=== PATIENT | female | born 1945 | race Caucasian/White ===

== ENCOUNTER → 2020-02-13 13:42 | Outpatient (BNVA) | payer MEDICARE, SELFPAY | PROVIDERS: PCP Family Medicine; Visit Provider Hospitalist | DX: I26.99 Other pulmonary embolism without acute cor pulmonale (principal); J44.9 Chronic obstructive pulmonary disease, unspecified; J18.9 Pneumonia, unspecified organism; R93.89 Abnormal findings on diagnostic imaging of other specified body structures; Z86.19 Personal history of other infectious and parasitic diseases; Z79.01 Long term (current) use of anticoagulants | CPT/HCPCS: 99212 ==

== ENCOUNTER → 2020-02-28 09:54 | Outpatient (BNVA) | payer MEDICARE, SELFPAY | PROVIDERS: PCP Family Medicine; Referring Provider Family Medicine; Visit Provider Hospitalist | DX: J44.9 Chronic obstructive pulmonary disease, unspecified (principal); J18.9 Pneumonia, unspecified organism; D64.9 Anemia, unspecified; Z86.711 Personal history of pulmonary embolism; Z86.19 Personal history of other infectious and parasitic diseases; Z79.01 Long term (current) use of anticoagulants | CPT/HCPCS: 99212 ==

== ENCOUNTER → 2020-05-27 09:46 | Outpatient (BNVA) | payer MEDICARE, SELFPAY | PROVIDERS: PCP Family Medicine; Visit Provider Hospitalist | DX: I27.82 Chronic pulmonary embolism (principal); J41.0 Simple chronic bronchitis; G47.33 Obstructive sleep apnea (adult) (pediatric) | CPT/HCPCS: 99212 ==

== ENCOUNTER → 2020-10-01 11:12 | Outpatient (BNVA) | payer MEDICARE, SELFPAY | PROVIDERS: PCP Family Medicine; Visit Provider Hospitalist | DX: G47.33 Obstructive sleep apnea (adult) (pediatric) (principal); I27.82 Chronic pulmonary embolism; U07.1 COVID-19; J41.0 Simple chronic bronchitis | CPT/HCPCS: 99212 ==

== ENCOUNTER 2020-11-09 10:12 | Outpatient (REF) | payer MEDICARE, SELFPAY ==
[2020-11-09 11:33] LABS: MANUAL DIFF FLAG NO
[2020-11-09 11:53] LABS: Basophils Percent Auto 0.5 % (0-2); Eosinophils Absolute Auto 0.1 X10*3/uL (0.0-0.4); Eosinophils Percent Auto 1.3 % (0-4); Hematocrit 37.3 % (37-47); Hemoglobin 11.5 g/dl (12.0-16.0); INTERNATIONAL NORM RATIO 1.5 (0.9-1.1); Imm Gran Abs Auto 0.01 X10*3/uL (0.00-0.03); Imm Gran Pct Auto 0.2 % (0.0-0.4); Lymphocytes Absolute Auto 1.7 X10*3/uL (1.2-4.9); Lymphocytes Percent Auto 27.5 % (20-40); Mean Corpuscular HGB Conc 30.8 g/dl (31.0-35.0); Mean Corpuscular Hemoglobin 27.4 pg (27.0-33.0); Mean Platelet Volume 11.6 fL (9.4-12.3); Monocytes Absolute Auto 0.6 X10*3/uL (0.1-1.2); Monocytes Percent Auto 9.2 % (2-11); Neutrophils Absolute Auto 3.9 X10*3/uL (2.0-8.3); Neutrophils Percent Auto 61.3 % (45-73); Platelet Count 197 X10*3/uL (160-400); Prothrombin Time 17.1 SEC (9.9-13.0); Red Blood Count 4.19 X10*6/uL (4.20-5.50); Red Cell Distribution Width 13.7 % (11.0-16.0); White Blood Count 6.3 X10*3/uL (4.8-10.8)
[2020-11-09 12:32] LABS: Alanine Aminotransferase 11 U/L (0-31); Alkaline Phosphatase 87 U/L (39-117); Aspartate Amino Transferase 19 U/L (5-31); Bilirubin Direct 0.2 mg/dL (0.0-0.5); Bilirubin Total 0.4 mg/dL (0.0-1.0); Blood Urea Nitrogen 13 mg/dL (9-16); Estimated Glomerular Filt Rate 54; Total Protein 6.9 g/dL (6.5-8.0)
== END 2020-11-09 10:13 | disposition home or self-care (01) ==
LOC: HO.LAB 10:12
PROVIDERS: PCP Family Medicine; Visit Provider Internal Medicine Gastroenterology
DX: K74.60 Unspecified cirrhosis of liver (principal)
CPT/HCPCS: 36415; 80076; 82565; 84520; 85025; 85610

== ENCOUNTER 2020-12-10 11:07 | Outpatient (REF) | payer MEDICARE, SELFPAY ==
--- NOTE | ~2020-12-10 | CT_ITS ---
EXAMINATION: CT ABDOMEN AND PELVIS WITH CONTRAST CLINICAL INFORMATION: Left lower abdominal swelling and COMPARISON: Previous abdominal ultrasound most recent October 2019 TECHNIQUE: Multidetector volumetric images were obtained from the superior aspect of the liver through the pubic symphysis following administration 85 mL of Omnipaque 350 intravenous contrast. Sagittal and coronal reformatted images were obtained on the technologist's workstation. Oral contrast: Yes This CT examination was performed using dose optimization techniques as appropriate, variously including the following: *Automated exposure control *Adjustment of mA and/or kV according to patient size (this includes techniques or standardized protocols for targeted exams where dose is matched to indication/reason for exam; i.e. extremities or head) *Use of iterative reconstruction technique DLP: 424 mGy-cm FINDINGS: LUNG BASES: The visualized lung bases are unremarkable. LIVER, GALLBLADDER, AND BILIARY TREE: The contour of the liver is slightly irregular and there is hypertrophy of the left lobe and caudate lobe suggestive of mild cirrhosis. Liver is normal in attenuation. No focal liver lesion is seen. The gallbladder is been removed. There is mild extrahepatic biliary duct dilatation. The common bile duct measures 1.4 cm. This is similar to previous ultrasound and may be normal postcholecystectomy. The gallbladder has been removed. PANCREAS: Unremarkable. SPLEEN: Unremarkable. ADRENAL GLANDS: Unremarkable. KIDNEYS AND URETERS: There are bilateral renal stones. There is a 4 x 10 mm stone in the upper pole of the right kidney. There are 2 2 mm stones in the upper and lower pole of the left kidney. BLADDER: Unremarkable. GASTROINTESTINAL TRACT: There is stool throughout the colon questionable for constipation. Small and large bowel is otherwise unremarkable. The appendix is unremarkable. The stomach is unremarkable. ABDOMINAL WALL: There is diastasis of the rectus muscles and small umbilical hernia containing fat. LYMPH NODES: Normal. VASCULAR: There is evidence of atherosclerotic disease. No aneurysm is seen. PELVIC VISCERA: The uterus is been removed. No pelvic mass is seen. OSSEOUS STRUCTURES: There are degenerative changes of the spine and at the hip joints. CT/CT abdomen pelvis w con IMPRESSION: No mass seen. Stool throughout the colon suggestive of constipation. Small umbilical hernia containing fat. Bilateral renal stones. Mild cirrhosis. Mild extrahepatic biliary duct dilatation similar to previous ultrasound probably normal postcholecystectomy.
[2020-12-10] MEDS: iohexoL 350 MG/ML 100 ML INFUS..BTL IV (14:31)
== END 2020-12-10 11:08 | disposition home or self-care (01) ==
LOC: HO.CT 11:07
PROVIDERS: PCP Family Medicine; Visit Provider Internal Medicine Gastroenterology
DX: K21.9 Gastro-esophageal reflux disease without esophagitis (principal); K74.60 Unspecified cirrhosis of liver; R19.02 Left upper quadrant abdominal swelling, mass and lump
CPT/HCPCS: 74177; Q9967

== ENCOUNTER → 2020-12-30 11:08 | Outpatient (BNVA) | payer MEDICARE, SELFPAY | PROVIDERS: PCP Family Medicine; Visit Provider Hospitalist | DX: G47.33 Obstructive sleep apnea (adult) (pediatric) (principal); J41.0 Simple chronic bronchitis; R09.1 Pleurisy; U07.1 COVID-19; I27.82 Chronic pulmonary embolism | CPT/HCPCS: 99212 ==

== ENCOUNTER → 2021-01-28 10:21 | Outpatient (BNVA) | payer MEDICARE, SELFPAY | PROVIDERS: PCP Family Medicine; Visit Provider Hospitalist | DX: G47.33 Obstructive sleep apnea (adult) (pediatric) (principal); J41.0 Simple chronic bronchitis; I27.82 Chronic pulmonary embolism; U07.1 COVID-19 | CPT/HCPCS: 99212 ==

== ENCOUNTER → 2021-02-17 10:50 | Outpatient (BNVA) | payer MEDICARE, SELFPAY | PROVIDERS: PCP Family Medicine; Visit Provider Hospitalist | DX: J18.9 Pneumonia, unspecified organism (principal); U09.9 Post COVID-19 condition, unspecified; J41.0 Simple chronic bronchitis; R07.1 Chest pain on breathing; I26.99 Other pulmonary embolism without acute cor pulmonale; G47.33 Obstructive sleep apnea (adult) (pediatric); Z88.6 Allergy status to analgesic agent; Z88.4 Allergy status to anesthetic agent; Z88.1 Allergy status to other antibiotic agents; Z88.0 Allergy status to penicillin; Z83.2 Family history of diseases of the blood and blood-forming organs and certain disorders involving the immune mechanism; Z99.81 Dependence on supplemental oxygen; Z79.899 Other long term (current) drug therapy | CPT/HCPCS: 99212 ==

== ENCOUNTER → 2021-06-24 10:49 | Outpatient (BNVA) | payer MEDICARE, SELFPAY | PROVIDERS: PCP Family Medicine; Visit Provider Hospitalist | DX: J41.0 Simple chronic bronchitis (principal); G47.33 Obstructive sleep apnea (adult) (pediatric); R07.1 Chest pain on breathing; I27.82 Chronic pulmonary embolism | CPT/HCPCS: 99212 ==

== ENCOUNTER → 2021-12-28 11:05 | Outpatient (BNVA) | payer OTHER, SELFPAY | PROVIDERS: PCP Family Medicine; Visit Provider Hospitalist | DX: I27.82 Chronic pulmonary embolism (principal); G47.33 Obstructive sleep apnea (adult) (pediatric); J41.0 Simple chronic bronchitis; R07.1 Chest pain on breathing | CPT/HCPCS: 99212 ==

== ENCOUNTER 2022-02-10 08:08 | Outpatient (REF) | payer OTHER, SELFPAY ==
--- NOTE | ~2022-02-10 | US_ITS ---
EXAMINATION: US ABDOMEN COMPLETE CLINICAL INFORMATION: Cirrhosis of liver. COMPARISON: CT abdomen and pelvis 12/10/2020. Ultrasound abdomen complete 11/01/2019 and 07/11/2018. TECHNIQUE: Real-time imaging of the abdominal viscera. FINDINGS: PANCREAS: The pancreas unremarkable except for mild prominent pancreatic duct. ABDOMINAL AORTA: The proximal, mid, and distal segments are normal in caliber. INFERIOR VENA CAVA: Visualized portions are normal. LIVER: The liver is normal in size. A lobulated left hepatic lobe contour is noted. There is mild increased liver echogenicity. No focal hepatic lesion. There is no intrahepatic biliary duct dilatation seen. GALLBLADDER: Surgically absent. COMMON BILE DUCT: Normal in caliber measuring 1.4 cm in diameter. RIGHT KIDNEY: There are 2 small clusters of echogenic calculi measuring 0.6 cm. No caliectasis seen. No hydronephrosis or focal parenchymal lesions. The kidney measures 9.4 cm in maximum dimension. LEFT KIDNEY: There are 2 nonobstructive echogenic calculi measuring 0.4 cm midpole and 0.4 cm in lower pole. No hydronephrosis or focal parenchymal lesions. The kidney measures 9.5 cm in maximum dimension. SPLEEN: Normal. The spleen measures 11.5 cm in maximum dimension. FREE FLUID: None. US/US abdomen complete IMPRESSION: 1. Bilateral nonobstructive echogenic renal calculi. No caliectasis or hydronephrosis. 2. Slightly lobulated left hepatic lobe contour. Mild hepatic steatosis. 3. Prominent pancreatic duct but otherwise unremarkable pancreas.
== END 2022-02-10 08:09 | disposition home or self-care (01) ==
LOC: HO.US 08:08
PROVIDERS: Visit Provider Internal Medicine Gastroenterology
DX: K74.60 Unspecified cirrhosis of liver (principal)
CPT/HCPCS: 76700

== ENCOUNTER → 2022-04-12 15:26 | Outpatient (BNVA) | payer OTHER, SELFPAY | PROVIDERS: PCP Family Medicine; Visit Provider Hospitalist | DX: J96.21 Acute and chronic respiratory failure with hypoxia (principal); G47.33 Obstructive sleep apnea (adult) (pediatric); I27.82 Chronic pulmonary embolism; J41.0 Simple chronic bronchitis; I95.9 Hypotension, unspecified | CPT/HCPCS: Q3014 ==

== ENCOUNTER → 2022-05-16 09:38 | Outpatient (BNVA) | payer OTHER, SELFPAY | PROVIDERS: PCP Family Medicine; Visit Provider Hospitalist | DX: I27.82 Chronic pulmonary embolism (principal); J41.0 Simple chronic bronchitis | CPT/HCPCS: 99212 ==

== ENCOUNTER 2023-05-04 14:05 | Outpatient (AMB) | payer OTHER, SELFPAY ==
--- NOTE | 2023-05-04 14:25 | A.OFFVIS_ITS ---
Intake Vital Signs 05/04/23 14:28 Height 5 ft 3 in Weight 155 lb BMI 27.5 Pulse 79 Pulse Source Pulse Oximeter Pulse Oximetry (%) 96 Oxygen Delivery Method Room Air Intake Visit Reasons: COPD Rn Clinical Resource Required: No Allergies lidocaine [From LIDODERM] Allergy (Severe, Verified 05/04/23 14:29) BLISTERS Penicillins [PENICILLINS] Allergy (Severe, Verified 05/04/23 14:29) SWELLING/ITCHING gabapentin [GABAPENTIN] Allergy (Intermediate, Verified 05/04/23 14:29) SORES IN MOUTH- AGITATION morphine [MORPHINE] Allergy (Intermediate, Verified 05/04/23 14:29) PER H&P Ampicillin Allergy (Intermediate, Uncoded 05/04/23 14:29) Rash and Hives HPI HPI Comments History of Present Illness Details The patient is a 77-year-old woman with a known history of pulmonary emboli with the family history. In addition to that she has a history of sleep apnea and asthma COPD overlap syndrome. Since we last spoke the patient has been complaining of multiple complaints. She does have leg swelling and pain. Mainly her left leg. 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 This is done at [facility]. Her D-dimer was elevated at the time. We did review her CT scan of the chest that demonstrated extensive blood clot with submassive PE due to the RV strain. She had been treated in [place] for that and did complete a course of Coumadin. She has no longer on any anticoagulation. She has been complaining worsening shortness of breath and chest pain. This discomfort is substernal in his about 4-10 in severity. Denies any radiation. Some respite phasic component. At this point is better. She did need to have an urgent CTA to rule out pulmonary emboli. The reading was that she did have sub subsegmental pulmonary emboli. I did look at the scan myself and I do think she had bilateral subsegmental pulmonary emboli. That night she was started on Eliquis. She has been tolerating the Eliquis without any side effects. Although she feels a little pale today feels like she could be anemic. We did review her blood work from the last visit demonstrating normal SABINO and normal CCP. Although her D-dimer was elevated does have she ended up with her CT scan of the chest. Her potassium was also elevated at the time. The patient has had multiple blood clots as well and now also positive family history with other extended family members. Therefore, is not a reasonable to at least check her prothrombin mutation and factor 5 Leiden. Her hemoglobin was down to about 9 from 12. She denies any active bleeding GI bleeding or any black stools. I am concerned because she is taking the blood thinner. She is scheduled for an upper and lower endoscopy. 05/27/2020 the patient is here for pulmonary follow-up visit. Overall she is doing lot better. She has recovered very well from the COVID infection that she had. Her last CT scan of the chest from March demonstrated some ground-glass opacities likely residual from her COVID infection. She continues on the Eliquis and seems to be tolerating the anticoagulation well. Denies any evidence of any recurrent clots. The patient was ambulated with a 6 minutes walk test and she maintain a pulse ox between 98%-99%. Heart rate also states stable within 80s to 90s. Her Brant score was lower on 05/20. Patient did very well walking with her cane. However, she has been very dizzy lately and she has had episodes of near falls. She needs to be very careful with her balance and always using her assistive device. The patient has struggled to use his CPAP. The CPAP therapy has been very difficult. Therefore, the patient will talk to her [employer] company about returning it. The patient will continue using oxygen at nighttime at 2 L. 12/28/2021 the patient is here for a pulmonary follow-up visit. Overall the patient seems to be doing relatively well from a respiratory status. She still complains of the substernal chest discomfort. She does respond well to nitroglycerin. She did follow-up with cardiology sometime in early December. Did describe the chest discomfort as a typical. She had a full cardiac workup without any evidence of any at the heart disease. The patient has complaining about bruising. She has been on Eliquis and also on Plavix. She has not no ticed any hematuria or any issues with blood in the stool. A 1 point she did have significant anemia. the patient is concerned about the use of Plavix. I did look at the cardiology notes and was no mention of the use of Plavix. Therefore, I did tell the patient to hold the Plavix until she speaks to her primary care doctor to clarify if he does need to be on this medication. Med because concerns for risk of bleeding since she has had issues with anemia in the past. The patient has been having some reflux symptoms. I did send her additional Maalox in case her chest discomfort is related to esophageal spasms she is responding well to the Trelegy inhaler. She has not had to use his rescue inhaler and she has not required any prednisone. She continues use the oxygen with sleep. This has been affecting beneficial and she will continue for now. 04/12/2022 the patient has a telephone visit today. The daughter had called initially that the patient was feeling short of breath and also dizzy. She noted that her pulse ox was significantly low Around 60%. She also has a blood pressure cuff at home and she noted that her blood pressure was low with a systolic blood pressure in the 80s. However, the patient has been reluctant to go to the hospital. The patient states that the last time she went to the hospital she was waiting in the hallway and she is very uncomfortable. Recently she was diagnosed with UTI and was placed on antibiotics. She was also found to have kidney stones and she had to postpone the procedure due to her new symptoms. Based on the fact the patient hypoxic the daughter had called. We gave her telephone visit today. I did speak to the patient. She feels very drowsy and tired. Explained to the patient that is really important for her to go to the hospital and she is agreeable at this time. I did look at the blood work that she had at [facility]. Initially UTI demonstrated a Staph infection. I am concerned that she could be developing sepsis and therefore developing worsening respiratory failure in view of the sepsis. Therefore, be critical that she is evaluated in the ER. The daughter will take her to the hospital at this time. 05/13/2022 the patient is here for a pulmonary follow-up visit. The patient recently was discharged from the hospital. She was found to have kidney stones. Initially, she was admitted at [facility] and she was found to have kidney stones and hypotension. And she ended up admitted at [facility]. She had a repeat CT scan of the abdomen per report demonstrating resolution of the kidney stone. The patient is having significant discomfort of her right leg. This is causing significant discomfort. She has been taking Tylenol. She has to be careful with her cirrhosis. She continues use the oxygen at nighttime. she uses 2 L at nighttime. This has been affecting beneficial. The patient is to continue the oxygen at this time. 05/04/2023 the patient is here for a pulmonary follow-up visit. The patient overall has been feeling well from a respiratory status. Continues on the Eliquis 5 mg twice a day. The family is contemplating decreasing the medication to 2.5 twice a day. I believe this is reasonable request specially since her last CTA back in April 2022 did not demonstrate any evidence of any persistent clot. She does have some lower extremity discomfort to therefore will do a lower extremity Dopplers to make sure that she does not have any clot burden. And if is negative then we can see about decreasing the dose. In the meantime the patient also has issues with headaches in the morning. She was on oxygen at nighttime which she has no longer using it. Therefore, will go ahead and request an overnight oximetry to see if which is set her up with nocturnal oxygen at this time. She may still have some supplies left over from when she had [facility] respiratory. [facility] Medical History (Updated 05/04/23 @ 20:11 by Michael Berkowitz MD) Leg pain Chest pain Pleuritis JENNIFER (obstructive sleep apnea) Abnormal chest x-ray Pneumonia COVID-19 Pulmonary emboli COPD (chronic obstructive pulmonary disease) Social History (Updated 12/30/20 @ 11:36 by Tamara Terry Michelle) Patient Tobacco Use Status: Never used Tobacco Review of Systems Const Reports headache(s), Reports lethargy and Denies night sweats ENT Denies change in voice, Reports dizziness, Reports headache(s), Denies lip swelling, Denies mouth pain, Reports nasal congestion, Reports nasal discharge, Reports neck pain and Denies tongue swelling Card Denies chest pain, Denies dyspnea and Reports dyspnea on exertion Resp Reports cough, Reports pain on inspiration, Denies dyspnea and Reports dyspnea on exertion GI Reports abdominal pain, Reports constipation and Reports GI cramping Reports as per HPI Musc Reports back pain, Reports limited range of motion, Reports muscle cramps, Reports neck pain and Reports radiating pain into limb Neuro Denies Neuro-related abnormal movements, Reports dizziness and Reports headache(s) Psych Denies no additional complaints Sebastian/Lymph Reports easy bleeding, Reports easy bruising and Denies lymphadenopathy Aller/Immun Denies lip swelling and Denies tongue swelling Physical Exam Vital Signs: Last Vital Signs Pulse 79 05/04/23 14:28 Pulse Ox 96 05/04/23 14:28 Oxygen Delivery Method Room Air 05/04/23 14:28 BMI result Body Mass Index 27.5 Const General: alert Neck Neck: Yes normal visual inspection, Yes full ROM and Yes no lymphadenopathy Chest Chest palpation & inspection: normal inspection of the chest, no localized rib tenderness and no tenderness Resp Auscultation: no crackles, no rales, no rhonchi, no wheezes and diminished lung sounds Cardio Rate: regular rate Rhythm: regular rhythm Heart sounds: S1 normal heart sound present and S2 normal heart sound present GI Palpation (GI): Soft to palpation and nontender Auscultation: normal bowel sounds Skin General skin exam: rashes and/or lesions noted Assessment & Plan Assessment & Plan (1) COPD (chronic obstructive pulmonary disease): Code(s): J44.9 - Chronic obstructive pulmonary disease, unspecified Qualifiers: COPD type: chronic bronchitis Chronic bronchitis type: simple Qualified Code(s): J41.0 - Simple chronic bronchitis (2) Pulmonary emboli: Comment: Her PE is no longer visible. But she has a high risk for recurrence. Therefore should continue if her anemia allows Code(s): I26.99 - Other pulmonary embolism without acute cor pulmonale Qualifiers: Acute cor pulmonale presence: without acute cor pulmonale Chronicity: chronic Pulmonary embolism type: unspecified Qualified Code(s): I27.82 - Chronic pulmonary embolism Plan Overnight oximetry ?need for nocturnal oxygen Continue Trelegy inhaler daily Continue singular Continue Eliquis for unprovoked clots, monitor for any bleeding, will discuss decreasing to 2.5mg BID during the next visit ONESIMO pavon r/o DVT Follow-up 4-6 months Orders: Orders Overnight Pulse Oximetry Today I26.99 - Other pulmonary embolism without acute cor pulmonale, J44.9 - Chronic obstructive pulmonary disease, unspecified US venous duplex LE BI Today M79.606 - Pain in leg, unspecified Coding Level of Care Code Est Pt Level 4 (93672) Diagnoses Simple chronic bronchitis J41.0 COPD type: chronic bronchitis Chronic bronchitis type: simple Chronic pulmonary embolism without acute cor pulmonale, unspecified pulmonary embolism type I27.82 Acute cor pulmonale presence: without acute cor pulmonale Chronicity: chronic Pulmonary embolism type: unspecified Time Spent (min) 17
[2023-05-04 14:28] VITALS: PULSE 79; O2SAT 96; BMI 27.5
== END 2023-05-04 14:46 | disposition home or self-care (01) ==
PROVIDERS: PCP Physician Assistant; Visit Provider Hospitalist
DX: J41.0 Simple chronic bronchitis (principal); I27.82 Chronic pulmonary embolism
CPT/HCPCS: 99214

== ENCOUNTER → 2023-05-04 14:05 | Outpatient (BNVA) | payer OTHER, SELFPAY | PROVIDERS: PCP Family Medicine; Visit Provider Hospitalist | DX: J41.0 Simple chronic bronchitis (principal); I27.82 Chronic pulmonary embolism | CPT/HCPCS: 99212 ==

== ENCOUNTER 2023-05-09 15:14 | Outpatient (REF) | payer OTHER, SELFPAY ==
--- NOTE | ~2023-05-09 | US_ITS ---
EXAMINATION: US VENOUS ULTRASOUND WITH DOPPLER LOWER EXTREMITY, BILATERAL CLINICAL INFORMATION: Pain COMPARISON: None available. TECHNIQUE: Ultrasound of the deep veins is performed from the hip to the calf with compression sonography and color and pulse Doppler assessment. Spectral analysis with color-flow imaging is performed. FINDINGS: RIGHT: There is normal venous compression and respiratory variation and augmented flow. The visualized common femoral vein, superficial femoral vein, profunda femoral vein, popliteal vein, and the trifurcation region shows no evidence of deep venous thrombosis. No popliteal cyst. LEFT: There is normal venous compression and respiratory variation and augmented flow. The visualized common femoral vein, superficial femoral vein, profunda femoral vein, popliteal vein, and the trifurcation region shows no evidence of deep venous thrombosis. No popliteal cyst. If the patient's symptoms persist, followup ultrasound in 5 days 7 days might be of value to exclude proximal propagation from a non-visualized calf vein. US/US venous duplex LE BI IMPRESSION: No DVT demonstrated in the bilateral lower extremities.
== END 2023-05-09 15:15 | disposition home or self-care (01) ==
LOC: HO.US 15:14
PROVIDERS: PCP Physician Assistant; Visit Provider Hospitalist
DX: M79.604 Pain in right leg (principal); M79.605 Pain in left leg
CPT/HCPCS: 93970

== ENCOUNTER 2023-09-01 14:11 | Outpatient (AMB) | payer OTHER, SELFPAY ==
[2023-09-01 14:21] VITALS: PULSE 69; O2SAT 97; BMI 27.5
--- NOTE | 2023-09-01 14:21 | A.OFFVIS_ITS ---
Vital Signs 09/01/23 14:21 Height 5 ft 3 in Weight 154 lb 15.759 oz BMI 27.5 Pulse 69 Pulse Source Pulse Oximeter Pulse Oximetry (%) 97 Oxygen Delivery Method Room Air Intake Visit Reasons: COPD Tobacco Classer Required: No Allergies lidocaine [From LIDODERM] Allergy (Severe, Verified 09/01/23 14:23) BLISTERS Penicillins [PENICILLINS] Allergy (Severe, Verified 09/01/23 14:23) SWELLING/ITCHING gabapentin [GABAPENTIN] Allergy (Intermediate, Verified 09/01/23 14:23) SORES IN MOUTH- AGITATION morphine [MORPHINE] Allergy (Intermediate, Verified 09/01/23 14:23) PER H&P Ampicillin Allergy (Intermediate, Uncoded 09/01/23 14:23) Rash and Hives HPI Comments Details: The patient is a 78 year-old woman with a known history of pulmonary emboli with the family history. In addition to that she has a history of sleep apnea and asthma COPD overlap syndrome. Since we last spoke the patient has been complaining of multiple complaints. She does have leg swelling and pain. Mainly her left leg. 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 This is done at [facility]. Her D-dimer was elevated at the time. We did review her CT scan of the chest that demonstrated extensive blood clot with submassive PE due to the RV strain. She had been treated in [place] for that and did complete a course of Coumadin. She has no longer on any anticoagulation. She has been complaining worsening shortness of breath and chest pain. This discomfort is substernal in his about 4-10 in severity. Denies any radiation. Some respite phasic component. At this point is better. She did need to have an urgent CTA to rule out pulmonary emboli. The reading was that she did have sub subsegmental pulmonary emboli. I did look at the scan myself and I do think she had bilateral subsegmental pulmonary emboli. That night she was started on Eliquis. She has been tolerating the Eliquis without any side effects. Although she feels a little pale today feels like she could be anemic. We did review her blood work from the last visit demonstrating normal SABINO and normal CCP. Although her D-dimer was elevated does have she ended up with her CT scan of the chest. Her potassium was also elevated at the time. The patient has had multiple blood clots as well and now also positive family history with other extended family members. Therefore, is not a reasonable to at least check her prothrombin mutation and factor 5 Leiden. Her hemoglobin was down to about 9 from 12. She denies any active bleeding GI bleeding or any black stools. I am concerned because she is taking the blood thinner. She is scheduled for an upper and lower endoscopy. 05/27/2020 the patient is here for pulmonary follow-up visit. Overall she is doing lot better. She has recovered very well from the COVID infection that she had. Her last CT scan of the chest from March demonstrated some ground-glass opacities likely residual from her COVID infection. She continues on the Eliquis and seems to be tolerating the anticoagulation well. Denies any evidence of any recurrent clots. The patient was ambulated with a 6 minutes walk test and she maintain a pulse ox between 98%-99%. Heart rate also states stable within 80s to 90s. Her Brant score was lower on 05/20. Patient did very well walking with her cane. However, she has been very dizzy lately and she has had episodes of near falls. She needs to be very careful with her balance and always using her assistive device. The patient has struggled to use his CPAP. The CPAP therapy has been very difficult. Therefore, the patient will talk to her [email or web address] company about returning it. The patient will continue using oxygen at nighttime at 2 L. 12/28/2021 the patient is here for a pulmonary follow-up visit. Overall the patient seems to be doing relatively well from a respiratory status. She still complains of the substernal chest discomfort. She does respond well to nitroglycerin. She did follow-up with cardiology sometime in early December. Did describe the chest discomfort as a typical. She had a full cardiac workup without any evidence of any at the heart disease. The patient has complaining about bruising. She has been on Eliquis and also on Plavix. She has not noticed any hematuria or any issues with blood in the stool. A 1 point she did have significant anemia. the patient is concerned about the use of Plavix. I did look at the cardiology notes and was no mention of the use of Plavix. Therefore, I did tell the patient to hold the Plavix until she speaks to her primary care doctor to clarify if he does need to be on this medication. Med because concerns for risk of bleeding since she has had issues with anemia in the past. The patient has been having some reflux symptoms. I did send her additional Maalox in case her chest discomfort is related to esophageal spasms she is responding well to the Trelegy inhaler. She has not had to use his rescue inhaler and she has not required any prednisone. She continues use the oxygen with sleep. This has been affecting beneficial and she will continue for now. 04/12/2022 the patient has a telephone visit today. The daughter had called initially that the patient was feeling short of breath and also dizzy. She noted that her pulse ox was significantly low Around 60%. She also has a blood pressure cuff at home and she noted that her blood pressure was low with a systolic blood pressure in the 80s. However, the patient has been reluctant to go to the hospital. The patient states that the last time she went to the hospital she was waiting in the hallway and she is very uncomfortable. Recently she was diagnosed with UTI and was placed on antibiotics. She was also found to have kidney stones and she had to postpone the procedure due to her new symptoms. Based on the fact the patient hypoxic the daughter had called. We gave her telephone visit today. I did speak to the patient. She feels very drowsy and tired. Explained to the patient that is really important for her to go to the hospital and she is agreeable at this time. I did look at the blood work that she had at [facility]. Initially UTI demonstrated a Staph infection. I am concerned that she could be developing sepsis and therefore developing worsening respiratory failure in view of the sepsis. Therefore, be critical that she is evaluated in the ER. The daughter will take her to the hospital at this time. 05/13/2022 the patient is here for a pulmonary follow-up visit. The patient recently was discharged from the hospital. She was found to have kidney stones. Initially, she was admitted at [place] and she was found to have kidney stones and hypotension. And she ended up admitted at [facility]. She had a repeat CT scan of the abdomen per report demonstrating resolution of the kidney stone. The patient is having significant discomfort of her right leg. This is causing significant discomfort. She has been taking Tylenol. She has to be careful with her cirrhosis. She continues use the oxygen at nighttime. she uses 2 L at nighttime. This has been affecting beneficial. The patient is to continue the oxygen at this time. 05/04/2023 the patient is here for a pulmonary follow-up visit. The patient overall has been feeling well from a respiratory status. Continues on the Eliquis 5 mg twice a day. The family is contemplating decreasing the medication to 2.5 twice a day. I believe this is reasonable request specially since her last CTA back in April 2022 did not demonstrate any evidence of any persistent clot. She does have some lower extremity discomfort to therefore will do a lower extremity Dopplers to make sure that she does not have any clot burden. And if is negative then we can see about decreasing the dose. In the meantime the patient also has issues with headaches in the morning. She was on oxygen at nighttime which she has no longer using it. Therefore, will go ahead and request an overnight oximetry to see if which is set her up with nocturnal oxygen at this time. She may still have some supplies left over from when she had [facility] respiratory. 09/01/2023 the patient is here for a pulmonary follow-up visit. The patient is doing okay from a respiratory status. She continues on the Trelegy inhaler with good effect. She does have a rescue inhaler but does not required often. The patient also has been taking her Eliquis for her history of thromboembolic disease. This be a lifelong therapy. Denies any minor major bleeding. She will continue the therapy for now. Her major issues her neck pain. She did go to a chiropractor the cost even worsening pain. She does take Motrin as needed does help her. She has been following closely with pain specmarium vargas elsewhere. But at this point they could not offer her anything else. Therefore, will go ahead and making a referral to the pain clinic here at the [facility]. The patient will continue current respiratory therapy will follow-up in 6 months. [facility] Medical History (Updated 09/01/23 @ 14:32 by Michael Berkowitz MD) Leg pain Chest pain Pleuritis JENNIFER (obstructive sleep apnea) Abnormal chest x-ray Pneumonia COVID-19 Pulmonary emboli COPD (chronic obstructive pulmonary disease) Social History (Updated 12/30/20 @ 11:36 by PASCUAL Alegre) Patient Tobacco Use Status: Never used Tobacco Review of Systems Const Reports headache(s), Reports lethargy and Denies night sweats ENT Denies change in voice, Reports dizziness, Reports headache(s), Denies lip swelling, Denies mouth pain, Reports nasal congestion, Reports nasal discharge, Reports neck pain and Denies tongue swelling Card Denies chest pain, Denies dyspnea and Reports dyspnea on exertion Resp Reports cough, Reports pain on inspiration, Denies dyspnea and Reports dyspnea on exertion GI Reports abdominal pain, Reports constipation and Reports GI cramping Reports as per HPI Musc Reports back pain, Reports limited range of motion, Reports muscle cramps, Reports neck pain and Reports radiating pain into limb Neuro Denies Neuro-related abnormal movements, Reports dizziness and Reports headache(s) Psych Denies no additional complaints Sebastian/Lymph Reports easy bleeding, Reports easy bruising and Denies lymphadenopathy Aller/Immun Denies lip swelling and Denies tongue swelling Physical Exam Vital Signs: Last Vital Signs Pulse 69 09/01/23 14:21 Pulse Ox 97 09/01/23 14:21 Oxygen Delivery Method Room Air 09/01/23 14:21 BMI result Body Mass Index 27.5 Const General: alert Neck Neck: Yes normal visual inspection, Yes full ROM and Yes no lymphadenopathy Chest Chest palpation & inspection: normal inspection of the chest, no localized rib tenderness and no tenderness Resp Auscultation: no crackles, no rales, no rhonchi, no wheezes and diminished lung sounds Cardio Rate: regular rate Rhythm: regular rhythm Heart sounds: S1 normal heart sound present and S2 normal heart sound present GI Palpation (GI): Soft to palpation and nontender Auscultation: normal bowel sounds Skin General skin exam: rashes and/or lesions noted Assessment & Plan Assessment & Plan (1) COPD (chronic obstructive pulmonary disease): Code(s): J44.9 - Chronic obstructive pulmonary disease, unspecified Category: Medical Qualifiers: COPD type: chronic bronchitis Chronic bronchitis type: simple Qualified Code(s): J41.0 - Simple chronic bronchitis (2) Pulmonary emboli: Comment: Her PE is no longer visible. But she has a high risk for recurrence. Therefore should continue if her anemia allows Code(s): I26.99 - Other pulmonary embolism without acute cor pulmonale Category: Medical Qualifiers: Acute cor pulmonale presence: without acute cor pulmonale Chronicity: chronic Pulmonary embolism type: unspecified Qualified Code(s): I27.82 - Chronic pulmonary embolism (3) Neck pain: Code(s): M54.2 - Cervicalgia Category: Medical Plan Continue Trelegy inhaler daily SONYA as needed Continue singular Continue Eliquis for unprovoked clots [facility] pain clinic evaluation Follow-up 8-10 months Orders: Referrals Pain Management Referral M54.2 - Cervicalgia Medications: Refilled montelukast 10 mg PO DAILY 90 tabs 3RF 90 days albuterol sulfate 90 mcg/actuation 2 inhalations inhalation Q6H PRN 18 grams 12RF shortness of breath or wheezing 30 days J44.9 - Chronic obstructive pulmonary disease, unspecified Coding Level of Care Code Est Pt Level 4 (11717) Diagnoses Simple chronic bronchitis J41.0 COPD type: chronic bronchitis Chronic bronchitis type: simple Chronic pulmonary embolism without acute cor pulmonale, unspecified pulmonary embolism type I27.82 Acute cor pulmonale presence: without acute cor pulmonale Chronicity: chronic Pulmonary embolism type: unspecified Neck pain M54.2 Time Spent (min) 16
== END 2023-09-01 14:39 | disposition home or self-care (01) ==
PROVIDERS: PCP Physician Assistant; Visit Provider Hospitalist
DX: J41.0 Simple chronic bronchitis (principal); I27.82 Chronic pulmonary embolism; M54.2 Cervicalgia
CPT/HCPCS: 99214

== ENCOUNTER → 2023-09-01 14:11 | Outpatient (BNVA) | payer OTHER, SELFPAY | PROVIDERS: PCP Physician Assistant; Visit Provider Hospitalist | DX: J41.0 Simple chronic bronchitis (principal); I27.82 Chronic pulmonary embolism; M54.2 Cervicalgia | CPT/HCPCS: 99212 ==

== ENCOUNTER 2023-10-23 09:33 | Outpatient (AMB) | payer OTHER, SELFPAY ==
--- NOTE | 2023-10-23 09:34 | MHC.OFFVIS ---
Vital Signs 10/23/23 09:35 Height 5 ft 3 in Weight 154 lb BMI 27.3 BP 118/52 L Blood Pressure Location Lt brachial Position Sitting Respiration 14 Pulse 72 Pulse Source Pulse Oximeter Pulse Oximetry (%) 96 Oxygen Delivery Method Room Air Intake Visit Reasons: Cervicalgia School Patrol Required: Yes School Patrol Name: prefers daughter to translate Allergies lidocaine [From LIDODERM] Allergy (Severe, Verified 10/23/23 09:38) BLISTERS Penicillins [PENICILLINS] Allergy (Severe, Verified 10/23/23 09:38) SWELLING/ITCHING gabapentin [GABAPENTIN] Allergy (Intermediate, Verified 10/23/23 09:38) SORES IN MOUTH- AGITATION morphine [MORPHINE] Allergy (Intermediate, Verified 10/23/23 09:38) PER H&P Ampicillin Allergy (Intermediate, Uncoded 10/23/23 09:38) Rash and Hives Medication List - Last Reconciled 10/23/23 by Nancy Chavez LPN acetaminophen ER mg PO albuterol sulfate 90 mcg/actuation 2 inhalations inhalation Q6H PRN 30 days amlodipine 10 mg PO DAILY apixaban 5 mg PO BID 30 days buspirone 0 mg PO chlorhexidine gluconate 0.12% 15 mL buccal BID 14 days escitalopram oxalate 20 mg PO DAILY esomeprazole magnesium 40 mg PO DAILY famotidine 40 mg PO DAILY ferrous sulfate 325 mg PO DAILY glucose 4 grams PO hydrochlorothiazide 12.5 mg PO DAILY ibuprofen 600 mg PO Q8H PRN insulin aspart U-100 0 - 26 units subcut TID insulin degludec units subcut isosorbide mononitrate ER 30 mg PO DAILY ketotifen fumarate 0.025%(0.035%) 1 drp ophthalmic (eye) Q12H PRN levocetirizine 5 mg PO BEDTIME linagliptin (Tradjenta) 5 mg PO DAILY loratadine 10 mg PO DAILY montelukast 10 mg PO DAILY 90 days oxycodone 5 mg PO Q4H PRN pravastatin mg PO sennosides 0 mg PO tizanidine 2 mg PO TID Trelegy Ellipta 100-62.5-25 mcg (nushpgwogno-ozgzsspun-hzufupxa) 1 inh inhalation DAILY NS HPI HPI Cervicalgia: Details: 78-year-old female who presents today to the office for an evaluation of cervicalgia. She is accompanied by her daughter today, who interpreted the visit. She reports neck pain that radiates down to her arms. She rates her pain at 8/10 in intensity. She describes her pain as constant in nature and has been present for years. She reports pain in her whole body. 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 She denies any numbness or paresthesia in her fingers. She has done a few sessions of physical therapy in the past in [place] before being discharged due to lack of response. She visited a chiropractor in the past but that made her pain worse. She tried epidural steroid injections at another pain management clinic with no relief. She has not had MRI scans in the past. She has a history of multiple blood clots. She is currently on Apixaban for history of PE. [facility] Medical History (Updated 10/23/23 @ 09:54 by Abhi Randle MD) Leg pain Chest pain Pleuritis JENNIFER (obstructive sleep apnea) Abnormal chest x-ray Pneumonia COVID-19 Pulmonary emboli COPD (chronic obstructive pulmonary disease) Social History (Updated 12/30/20 @ 11:36 by Tamara Terry Michelle) Patient Tobacco Use Status: Never used Tobacco Review of Systems Const All systems reviewed & are unremarkable except as noted in HPI and below Physical Exam Vital Signs: Last Vital Signs Pulse 72 10/23/23 09:35 Resp 14 10/23/23 09:35 BP 118/52 L 10/23/23 09:35 Pulse Ox 96 10/23/23 09:35 Oxygen Delivery Method Room Air 10/23/23 09:35 BMI result Body Mass Index 27.3 General: Appears afebrile. Alert and oriented. Mood and affect appropriate. Follows and participates in conversation appropriately. Respiratory effort is unlabored. Able to transition from sit to stand unassisted. Ambulates with bilaterally normal heel strike and toe off. Cervical flexion and extension both reproduce pain. Turning to the right reproduces the pain. Results Reviewed Results Reviewed: No imaging is available for review. Assessment & Plan Assessment & Plan (1) Cervical radiculopathy: Code(s): M54.12 - Radiculopathy, cervical region Category: Medical Plan I ordered an MRI scan of the cervical spine for further evaluation. We will review the results together and discuss further treatment plans based on the results. The patient will schedule an appointment one week after completing the MRI scan. Scribed for Dr. Randle by Brent Torres, nuclear medical tech, on 10/23/2023. I, Dr. Randle, have personally reviewed and agree with the information entered by the scribe. Orders: Orders MR cervical spine wo con Today M54.12 - Radiculopathy, cervical region Coding Level of Care Code New Pt Level 4 (95390) Diagnoses Cervical radiculopathy M54.12
[2023-10-23 09:35] VITALS: BP 118/52; PULSE 72; RESP 14; O2SAT 96; BMI 27.3
--- OUTSIDE RECORDS SUMMARY | 2023-10-23 09:35 | XMS_ITS | Continuity of Care Document ---
Author Organization [facility] Address [address] [place] [address]- Care Team Providers Care General Engineering Teacher Name Role Phone Gayathri GARZA, Florinda Primary Care Physician Encounter [facility] Date(s): 06/21/22 - 07/21/22 [facility] [address] [place] [address]- Allergies, Adverse Reactions, Alerts Substance Reaction Severity Status enalapril Active penicillin RASH Active Lidocaine, Topical Active morphine itchy Active Bactrim 1 hyperkalemia Active 1Hyperkalemia when used together with lisinopril Immunizations Given and Recorded Vaccine Date Status Refusal Reason [id number] 12y+ bivalent booster vax 05/25/22 Given influenza virus vaccine, inactivated 05/25/22 Give n influenza virus vaccine, inactivated 03/09/21 Give n influenza virus vaccine, inactivated 02/25/20 Give n influenza virus vaccine, inactivated 01/16/19 Give n influenza virus vaccine, inactivated 01/17/18 Give n influenza virus vaccine, inactivated 01/04/17 Give n influenza virus vaccine, inactivated 12/25/15 Cornelio rded influenza virus vaccine, inactivated 1 03/04/15 Gi zeny influenza virus vaccine, inactivated 01/22/14 Give n influenza virus vaccine, inactivated 01/09/13 Give n influenza virus vaccine, inactivated 2 01/31/11 Gi zeny influenza virus vaccine, inactivated 3 02/01/10 Gi zeny influenza virus vaccine, inactivated 4 12/30/08 Gi zeny influenza virus vaccine, inactivated 5 02/09/06 Gi zeny influenza virus vaccine, inactivated 6 05/06/04 Gi zeny zoster vaccine, inactivated 12/08/21 Given zoster vaccine, inactivated 09/15/21 Given SARS-CoV-2 mRNA ([id number]) vax 09/15/21 Given SARS-CoV-2 (COVID-19) mRNA BNT-162b2 vac 03/18/21 Recorded SARS-CoV-2 (COVID-19) mRNA BNT-162b2 vac 7 06/11/20 Given SARS-CoV-2 (COVID-19) mRNA BNT-162b2 vac 8 05/21/20 Given pneumococcal 13-valent vaccine 9 05/12/14 Given tetanus/diphtheria/pertussis, acel(Tdap) 10 05/12/14 Given Zoster Vaccine Live 11 10/16/12 Given pneumococcal 23-valent vaccine 12 11/10/10 Given pneumococcal 23-valent vaccine 13 05/20/04 Given tetanus-diphtheria toxoids (Td) 14 11/10/10 Given 1Result Comment: [03/04/2015] ORDERED BY DR. HAWK 2Admin Note: vis 11/02/2010 3Admin Note: given by ELLIOTT HEWITT. 4Admin Note: MELISSA CRAFT RN 5Admin Note: administered by melissa craft 6Admin Note: ADMINISTERED BY R.NLizbet 7Result Comment: Masood RUVALCABA RN 8Result Comment: Given by Loenie Garcia RN 9Result Comment: [05/13/2014] Ordered by Kendall 10Result Comment: [05/13/2014] Ordered by Kendall 11Result Comment: [10/16/2012] ORDERED BY 12Admin Note: VIS 01/13/09 GIVEN 13Admin Note: ADMINISTERED BY RN 14Admin Note: VIS 02/26/08 GIVEN Medications acetaminophen 650 mg oral tablet, extended release 2 tablet = 1,300 mg, By Mouth, Every 8 hours, PRN Pain, (do not crush or chew) (not to exceed 6 tablets/day), # 100 tablet, 11 Refills, Maintenance, 05/25/22 12:08:00 EST, ER Tablet, [facility]/pharmacy #[id number], Discontinue Motrin, 158, cm, 05/25/22 11:12:00... Start Date: 05/25/22 Status: Ordered ALCOHOL 70% PREP PADS ALCOHOL 70% PREP PADS, See Instructions, # 100 Unknown, 11 Refills, USE TO CHECK BLOOD SUGAR, UP TO5 TIMES DAILY. E11.65, 160, cm, 10/21/21 13:05:00 EDT, Height, 80.6, kg, 06/03/20 19:00:00 EST, DryWeight Start Date: 02/02/21 Status: Ordered Alcohol Wipes See Instructions, # 150 each, Refills 11, Tot. Refills 11, Maintenance, Use to check blood sugar, up to 5 times daily. E11.65, IDDM, 01/21/20 14:41:00 EDT, Compound, 167, cm, 01/13/20 8:54:00 EDT, Height, 78.8, kg, 01/01/20 3:41:00 EDT, Dry Weight Start Date: 01/21/20 Status: Ordered ammonium lactate 12% topical cream 1 applicator, Topically, 2 times a day, # 280 Gm, 11 Refills, Maintenance, 07/21/21 12:43:00 EDT, [facility]/pharmacy #[id number], 1 applicator Topically 2 times a day, 160, cm, 07/21/21 10:22:00 EDT, Height, 80.6, kg, 06/03/20 19:00:00 EST, Dry Weight Start Date: 07/21/21 Status: Ordered Baqsimi Two Pack 3 mg nasal powder = 3 mg, Naris, Right, Once, Please use for a low blood sugar emergency, may repeat in 15 minutes, #1 each, 3 Refills, Soft Stop, 03/09/22 11:35:00 EST, [facility]/pharmacy #[id number], 160, cm, 03/09/22 10:43:00EST, Height, 78, kg, 01/14/22 19:37:00 EDT, Dry W... Start Date: 03/09/22 Status: Ordered Biotene Moisturizing Mouth oral spray See Instructions, [place] directly into mouth; spray is safe to swallow as needed for dry mouth, # 45mL, 11 Refills, Maintenance, 05/25/22 12:42:00 EST, [facility]/pharmacy #[id number], Partial fill upon patient request if the prescription is for a schedule II op... Start Date: 05/25/22 Status: Ordered Boost Glucose Control Boost Glucose Control, 1 can, By Mouth, 3 times a day, # 90 each, Refills 11, Tot. Refills 11, Maintenance, indication: malnutrition E46, DM type 2 E11.9, 04/23/22 14:32:00 EST, Supply Start Date: 04/23/22 Stop Date: 04/18/23 Status: Ordered busPIRone 15 mg oral tablet See Instructions, PRN Anxiety, 1/3- 1/2 half tablet in the morning and in p.m. as needed for anxiety and 1tab at HS [id number]-[id number], # 60 tablet, 11 Refills, Maintenance, 09/15/21 9:02:00 EDT, [facility]/pharmacy #[id number], Partial fill upon patient request... Start Date: 09/15/21 Status: Ordered capsaicin 0.025% topical cream 1 application, Topically, 3 times a day, # 35 Gm, 11 Refills, Maintenance, 07/21/21 12:26:00 EDT, Cream, [facility]/pharmacy #[id number], 1 application Topically 3 times a day, 160, cm, 07/21/21 10:22:00 EDT, Height, 80.6, kg, 06/03/20 19:00:00 EST, Dry Weight Start Date: 07/21/21 Status: Ordered Compression- Lower Extremity (Knee High) See Instructions, # 2 each, Refills 11, Tot. Refills 11, Maintenance, use daily; closed toes; 10-20mmHg. Dx peripheral vascular insufficiency I 87.2, 07/21/21 12:36:00 EDT, Compound Start Date: 07/21/21 Status: Ordered Eliquis 5 mg oral tablet 1 tablet = 5 mg, By Mouth, 2 times a day, # 60 tablet, 5 Refills, Maintenance, 06/06/22 9:56:00 EST, Tablet, Partial fill upon patient request if the prescription is for a schedule II opioid drug. Start Date: 06/06/22 Status: Ordered escitalopram 20 mg oral tablet 1 tablet = 20 mg, By Mouth, Daily, # 30 tablet, 11 Refills, Maintenance, 12/06/21 15:04:00 EDT, Tablet, [facility], Partial fill upon patient request if the prescription is for a schedule II opioid drug., 160, cm, 11/23/21 14:47:00 ED... Start Date: 12/06/21 Status: Ordered famotidine 40 mg oral tablet 1 tablet = 40 mg, By Mouth, Daily at bedtime, If 40 mg tablet is not available, can be changed to 20 mg tablet 2 tablet at bedtime, # 90 tablet, 3 Refills, Maintenance, 07/12/21 18:53:00 EDT, Tablet,[facility]/pharmacy #1026, Discontinue 30- day supply presc... Start Date: 07/12/21 Stop Date: 07/07/22 Status: Ordered ferrous sulfate 325 mg oral tablet 1 tablet = 325 mg, By Mouth, Daily, May take with food to minimize abdominal discomfort. Do not take with milk. Take preferrably with juice., # 90 tablet, 3 Refills, Maintenance, 09/15/21 8:56:00 EDT, [facility]/pharmacy #[id number], 160, cm, 09/15/21 8:15:00 EDT,... Start Date: 09/15/21 Status: Ordered Freestyle rony 2 reader Freestyle rony 2 reader, See Instructions, # 1 each, Refills 0, Tot. Refills 0, Maintenance, use as directed for Type 2 Diabetes Mellitus,E11.65, 11/30/21 15:20:00 EDT, Supply, 160, cm, 11/23/21 14:47:00 EDT, Height, 80.5, kg, 11/05/21 9:50:00 EDT, D... Start Date: 11/30/21 Status: Ordered Freestyle rony 2 sensor Freestyle rony 2 sensor, See Instructions, # 2 each, Refills 8, Tot. Refills 8, Maintenance, use as directed for Type 2 Diabetes Mellitus, replace sesnor every 14 days., 11/30/21 15:22:00 EDT, Supply, 160, cm, 11/23/21 14:47:00 EDT, Height, 80.5, kg,... Start Date: 11/30/21 Status: Ordered FREESTYLE LITE TEST STRIP FREESTYLE LITE TEST STRIP, See Instructions, # 150 Unknown, 11 Refills, Maintenance, CHECK UP TO 5 TIMES DAILY. E11.65, 02/11/22 16:33:00 EDT, 160, cm, 02/01/22 16:14:00 EDT, Height, 78, kg, 01/14/2219:37:00 EDT, Dry Weight Start Date: 02/11/22 Status: Ordered Freestyle Lite Test Strips See Instructions, # 150 each, Refills 11, Tot. Refills 11, Maintenance, Check up to 5 times daily. E11.65, 03/13/20 11:16:00 EST, Compound, 167, cm, 01/13/20 8:54:00 EDT, Height, 78.8, kg, 01/01/20 3:41:00 EDT, Dry Weight Start Date: 03/13/20 Stop Date: 03/08/21 Status: Ordered Glucose Tablets See Instructions, # 100 tablet, Refills 5, Tot. Refills 5, Maintenance, 1 tablet By Mouth prn low bs bellow 70, 03/09/22 11:34:00 EST, Compound, 160, cm, 03/09/22 10:43:00 EST, Height, 78, kg, 01/14/22 19:37:00 EDT, Dry Weight Start Date: 03/09/22 Status: Ordered ibuprofen 600 mg oral tablet Refills 0, Maintenance, 06/06/22 9:53:00 EST, Partial fill upon patient request if the prescriptionis for a schedule II opioid drug. Start Date: 06/06/22 Status: Ordered isosorbide mononitrate 30 mg oral tablet, extended release See Instructions, LUCIANO GAGE TABLETA POR VIA ORAL CADA MANANA, # 90 tablet, 0 Refills, Maintenance, 07/08/22 9:47:00 EDT, [id number], 158, cm, 06/16/22 11:27:00 EST, Height, 76, kg, 05/07/22 6:04:00 EST, Dry Weight Start Date: 07/08/22 Status: Ordered ketotifen 0.025% ophthalmic solution 1 drops, Eyes, Both, Every 12 hours, PRN as needed for eye allergy, # 7.5 mL, 11 Refills, Maintenance, 06/25/21 8:34:00 EDT, [facility]/pharmacy #1026, 1 drops Eyes, Both Every 12 hours,PRN:as needed for eye allergy, 160, cm, 06/21/21 9:57:00 EDT, Height, 80... Start Date: 06/25/21 Status: Ordered Lancets See Instructions, # 150 each, Refills 11, Tot. Refills 11, Maintenance, use 4 xday for blood sugar testing DM type 2 insulin dependent, hyperglycemia/ hypoglycemia Free Style Lite ICD10 E11.65/E11.649, Z 79.4, Diabetes mellitus type2, 04/28/21 19:12... Start Date: 04/28/21 Status: Ordered levocetirizine 5 mg oral tablet 1 tablet = 5 mg, By Mouth, Daily before dinner, PRN allergies, # 90 tablet, 3 Refills, 03/09/22 11:57:00 EST, [facility]/pharmacy #[id number], 1 tablet By Mouth Daily before dinner,PRN:allergies, 160, cm, 03/09/22 10:43:00 EST, Height, 78, kg, 01/14/22 19:37:00 ED... Start Date: 03/09/22 Status: Ordered montelukast 10 mg oral tablet 10 mg, 1, tablet, By Mouth, Daily at bedtime, # 90 tablet, Refills 3, Tot. Refills 3, Maintenance, 03/09/22 11:37:00 EST, Route to Pharmacy Electronically, [facility]/pharmacy #[id number], 160, cm, 03/09/22 10:43:00 EST, Height, 78, kg, 01/14/22 19:37:00 EDT, Dry... Start Date: 03/09/22 Stop Date: 03/04/23 Status: Ordered Nexium 40 mg oral enteric coated capsule 1 capsule = 40 mg, By Mouth, Daily, 30 minutes before breakfast, # 30 capsule, 2 Refills, Maintenance, 05/02/22 15:39:00 EST, [facility]/pharmacy #[id number], Discontinue pantoprazole, 160, cm, 04/19/22 9:55:00 EST, Height, 76, kg, 04/12/22 16:37:00 EST, Dry Weight Start Date: 05/02/22 Stop Date: 07/31/22 Status: Ordered Norvasc 5 mg oral tablet 5 mg, 1, tablet, By Mouth, Daily, # 90 tablet, Refills 3, Tot. Refills 3, Maintenance, 03/09/22 11:54:00 EST, Route to Pharmacy Electronically, [facility]/pharmacy #[id number], 160, cm, 03/09/22 10:43:00 EST, Height, 78, kg, 01/14/22 19:37:00 EDT, Dry Weight Start Date: 03/09/22 Stop Date: 03/04/23 Status: Ordered NovoLOG FlexPen 100 units/mL subcutaneous solution See Instructions, Inject up to 20 untis via Insulin sliding scale 3x a day w/meals, and 2-4 units with bedtime snack,MAX daily dose 60units, E11.65, 90 day supply, # 54 mL, 3 Refills, Maintenance, 03/09/22 17:15:00 EST, [id number], 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 Start Date: 03/09/22 Status: Ordered [id number]-svuio medical-grade oxford diabetic shoes, depth or hightop [id number]-pwx-jqdfw medical-grade oxford diabetic shoes, depth or hightop, See Instructions, # 1 each, Refills 0, Tot. 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 Start Date: 07/21/21 Status: Ordered ondansetron 4 mg oral tablet 1 tablet = 4 mg, By Mouth, Every 8 hours, PRN Nausea, # 15 tablet, 2 Refills, Maintenance, 03/09/2211:40:00 EST, Tablet, [id number], 160, cm, 03/09/22 10:43:00 EST, Height, 78, kg, 01/14/22 19:37:00 EDT, Dry Weight Start Date: 03/09/22 Status: Ordered oxyCODONE 5 mg oral tablet 1.5- 2 tablet, By Mouth, Every 6 hours, for 28 days, for pain; fill date 06/24/2022; Dx Chronic LBP,renal colic KVTek brand (K18) only, # 224 tablet, Refills 0, Tot. Refills 0, Acute 07/22/22 12:14:00 EDT, 06/24/22 12:14:00 EDT, Route to Pha... Start Date: 06/24/22 Stop Date: 07/22/22 Status: Ordered oxyCODONE 5 mg oral tablet 1.5- 2 tablet, By Mouth, Every 6 hours, for 28 days, for pain; fill date 07/22/2022; Dx Chronic LBP,renal colic KVTek brand (K18) only, # 224 tablet, Refills 0, Tot. Refills 0, Acute 08/19/22 12:14:00 EDT, 07/22/22 12:14:00 EDT, Route to Pha... Start Date: 07/22/22 Stop Date: 08/19/22 Status: Ordered oxyCODONE 5 mg oral tablet 1.5- 2 tablet, By Mouth, Every 6 hours, for 28 days, for pain; fill date 08/19/2022; Dx Chronic LBP,renal colic KVTek brand (K18) only, # 224 tablet, Refills 0, Tot. Refills 0, Acute 09/16/22 12:14:00 EDT, 08/19/22 12:14:00 EDT, Route to Pha... Start Date: 08/19/22 Stop Date: 09/16/22 Status: Ordered Pen [place], 32 G x 4 mm BD Ultra Fine III See Instructions, # 360 each, Refills 3, Tot. Refills 3, Maintenance, Use as directed for insulin use 4 times a day DX IDDM; 90 days, 02/01/21 10:40:00 EDT, Compound, 160, cm, 01/28/21 13:05:00 EDT, Height, 80.6, kg, 06/03/20 19:00:00 EST, D... Start Date: 02/01/21 Status: Ordered PLEASE DO NOT ERASE ANY NARCOTIC FROM OUTPATIENT MED LIST IF YOU ARE NOT THE PRESCRIBER PLEASE DO NOT ERASE ANY NARCOTIC FROM OUTPATIENT MED LIST IF YOU ARE NOT THE PRESCRIBER, See Instructions, # 1 each, Refills 0, Tot. Refills 0, Maintenance, PLEASE DO NOT ERASE ANY NARCOTIC FROM OUTPATIENT MED LIST IF YOU ARE NOT THE PRESCRIBE... Start Date: 09/22/15 Status: Ordered PLEASE DO NOT ERASE MEDICATIONS/MEDICAL SUPPLIES FROM OUTPATIENT MED LIST IF YOU ARE NOT THE PRESC PLEASE DO NOT ERASE MEDICATIONS/MEDICAL SUPPLIES FROM OUTPATIENT MED LIST IF YOU ARE NOT THE PRESCRIBER OR PCP, OR ARE NOT CHANGING A MED TO AN ALTERNATE ONE, See Instructions, # 1 each, Refills 0, Tot. Refills 0, Maintenance, PLEASE DO NOT ERASE ME... Start Date: 09/22/15 Status: Ordered polyethylene glycol 3350 oral powder for reconstitution 17- 34 Gm, By Mouth, Daily, PRN as needed for constipation, (dissolve in water or juice), # 527 Gm,11 Refills, Maintenance, 03/09/22 11:39:00 EST, [id number], 17- 34 Gm By Mouth Daily,PRN:asneeded for constipation,Instr:(dissolve in water or... Start Date: 03/09/22 Status: Ordered Pull ups Pull ups, See Instructions, # 120 each, Refills 11, Tot. Refills 11, Maintenance, Wear daily duringday and night. Change 4 times a day prn Dx mixed urinary incontinence ICD10 N39.46 Height 159 cm, weight 82 kg Length of need: 99 Size- la... Start Date: 04/28/21 Status: Ordered rosuvastatin 40 mg oral capsule 1 capsule = 40 mg, By Mouth, Daily, # 90 capsule, 3 Refills, Maintenance, 03/09/22 11:42:00 EST, Capsule, [facility], 160, cm, 03/09/22 10:43:00 EST, Height, 78, kg, 01/14/22 19:37:00 EDT, Dry Weight Start Date: 03/09/22 Stop Date: 03/04/23 Status: Ordered Senna-Time 8.6 mg oral tablet 2 tablet, By Mouth, 2 times a day, PRN NEEDED FOR CONSTIPATION,INSTR, # 60 tablet, 11 Refills, Maintenance, 03/09/22 11:39:00 EST, [id number], 160, cm, 03/09/22 10:43:00 EST, Height, 78, kg, 01/14/22 19:37:00 EDT, Dry Weight Start Date: 03/09/22 Status: Ordered Shoes insert, molded to foot Shoes insert, molded to foot, See Instructions, # 3 each, Refills 0, Tot. 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 Start Date: 07/21/21 Status: Ordered TENS electrode pads TENS electrode pads, See Instructions, # 1 each, Refills 5, Tot. Refills 5, Maintenance, use as directed for back pain Dx LBP M54.9 1 box of 4, 08/27/21 14:17:00 EDT, Compound Start Date: 08/27/21 Status: Ordered Trelegy Ellipta inhalation powder 1 puffs, Inhalation, Daily, at the same time every day Given by Folding Machine Tender, Dr. Michael Berkowitz, # 60 each, 0 Refills, Maintenance, 07/21/21 11:59:00 EDT, Powder, Partial fill upon patient request if the prescription is for a schedule II opi... Start Date: 07/21/21 Status: Ordered Tresiba FlexTouch 200 units/mL subcutaneous solution See Instructions, INJECT 42 UNITS DAILY AT 9PM E11.9 90 day, # 21 mL, 3 Refills, 03/09/22 17:14:00 EST, [facility], 160, cm, 03/09/22 10:43:00 EST, Height, 78, kg, 01/14/22 19:37:00 EDT, Dry Weight Start Date: 03/09/22 Status: Ordered Ventolin HFA 108 mcg/inh inhalation aerosol with adapter 2 puffs, Inhalation, 4 times a day, PRN Wheezing/Shortness of Breath, dispense when patient requestit, # 18 Gm, 5 Refills, Maintenance, 11/09/20 12:36:00 EDT, [facility], 160, cm, 10/22/20 9:15:00 EDT, Height, 80.6, kg, 06/03/20 19:00:00 EST,... Start Date: 11/09/20 Status: Ordered Voltaren 1% topical gel = 2 Gm, Topically, 4 times a day, # 100 Gm, 5 Refills, Maintenance, 03/09/22 11:55:00 EST, [facility], 2 Gm Topically 4 times a day,x14 days, 160, cm, 03/09/22 10:43:00 EST, Height, 78, kg, 01/14/22 19:37:00 EDT, Dry Weight Start Date: 03/09/22 Stop Date: 06/01/22 Status: Ordered [place] Reusable Bed Pad 34 x 36 [place] Reusable Bed Pad 34 x 36 , See Instructions, # 1 each, Refills 11, Tot. Refills 11, Maintenance, Use daily at bedtime Dx mixed urinary incontinence ICD10 N39.46 Length of need: 99, 04/28/21 13:27:00 EST, Compound Start Date: 04/28/21 Status: Ordered wipes wipes, See Instructions, # 2 each, Refills 11, Tot. Refills 11, Maintenance, Use as directed to clean after toileting Dx mixed urinary incontinence ICD10 N39.46 Length of need: 99 each box of 100, 04/28/21 13:31:00 EST, Compound Start Date: 04/28/21 Status: Ordered Problem List Condition Confirmation Course Effective Dates Status Health Status Informant Anemia due to GI blood loss Confirmed Active Anxiety depression Confirmed Active AVM (arteriovenous malformation) of colon 1 Confirmed 07/2014 Active Asthma with COPD Confirmed Active Back pain 2, 3 Confirmed Active Cataract 4 Confirmed Active Cervical facet syndrome Confirmed Active Cholecystectomy Confirmed Active Chronic kidney disease (CKD)- stage 3 Confirmed Active Deep vein thrombosis (DVT) 5 Confirmed 12/21/15 Active Oxygen dependent Confirmed Active Diabetes mellitus type 2 6 Confirmed Active Diabetic neuropathy Confirmed 09/19/07 Active Diabetic angiopathy Confirmed Active Diastolic dysfunction 7 Confirmed 05/24/17 Active Dry skin Confirmed Active Dysuria Confirmed Active Esophageal varices 8, 9 Confirmed 06/24/16 Active Fibromyalgia muscle pain Confirmed 09/12/12 Active Gastritis 10 Confirmed 06/24/16 Active Hearing test abnormal 11 Confirmed 12/29/11 Active Hepatitis C Confirmed Active custodial current use of opiate analgesic-LBP 12 Confirmed Active Hypercholesterolemia Confirmed Active Hyperparathyroidism s/p right lower parathyroidectomy 06/16/2008 Confirmed Active Hypertension Confirmed Active Hysterectomy Confirmed Active Incontinence of urine Confirmed Active Iron deficiency anemia Confirmed Active Left ventricular hypertrophy 13 Confirmed Active 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 Confirmed Active Memory impairment Confirmed Active Mitral regurgitation 14 Confirmed 05/24/17 Active Myofascial muscle pain Confirmed Active Nephrolithiasis 15, 16, 17 Confirmed 06/11/02 Active Obesity Confirmed Active JENNIFER (obstructive sleep apnea) Confirmed Active Osteopenia 18, 19, 20 Confirmed 11/16/12 Active *[id number] Guide Dog Trainer Karine More Confirmed Active Peripheral venous insufficiency Confirmed 10/31/11 Active Positive PPD Confirmed 10/09/14 Active Primary hyperparathyroidism 21 Confirmed Active Psychophysiological insomnia Confirmed Active Bilateral pulmonary embolism 22 Confirmed 12/21/15 Active Pulmonary embolism Confirmed Active Pulmonary hypertension Confirmed Active Restless leg syndrome Confirmed Active Right ventricular dilation 23 Confirmed 12/22/15 Active Seasonal allergic rhinitis Confirmed Active Subclinical hypothyroidism Confirmed Active TR (tricuspid regurgitation) 24 Confirmed 05/24/17 Active Tubular adenoma 25, 26 Confirmed 04/10/04 Active Calcium oxalate crystals in urine Confirmed 01/22/14 Active Dementia, vascular Confirmed Active 1Colonoscopy July 2014: hyperplastic polyp and multiple nonbleeding AVM in the cecum and right colon 04/10/11 lumbar MRI Small central and superior disc extrusion at T12/L1 of doubtful clinical significance. 3 mm L4/5 spondylolisthesis without stenosis or focal nerve root compression.Minor degenerative changes. 3MRI lumbar 02/29/08 transitional sacralized L5 segment. Minimal L4/ L5 spondylolisthesis and moderate facet arthropathy with no stenosis. Minor degenerative changes elsewhere. 4left catarct surgery on 08/28/08 by SURGEON: Tana Coronado M.D. 5LE US- DVT involving 2 of 2 peroneal veins diagnosed on Dec 20 [facility] 6insulin dependent 7Per ECHO 05/24/1718 Grade I, mild diastolic dysfunction with impaired LV relaxation, which may be normal for the patient's age. 8endoscopy 10/05/2018 w non bleeding grade 1 esophageal varices 9EGD on 06/24/16 by GI, Dr Damien Dobbins w gastritis and esophageal varices grade 1 10EGD on 06/24/16 by GI, Dr Damien caballero gastritis and esophageal varices grade 1 11left mild sensorineural hearing loss by [facility] Hearing Evaluation on 12/29/11 12Narcotic contract w Dr Florinda Trinh 13Per ECHO 05/24/17 Mild concentric left ventricular hypertrophy 14Per ECHO 05/24/17 Trace mitral regurgitation , mild TC regurgitation w no significant valve pathology PHYSICIAN: Daniel Lamb M.D. DIAGNOSIS: Right ureterolithiasis. OPERATION : Right extracorporeal shock wave lithotripsy 16Hx of laser treatment per patient unknown date 17bilateral by CT scan 18DEXA 11/01/21 AP Spine (L1-L4) -0.8 Normal Femoral Neck (Left) -1.4 Osteopenia Total Hip (Left) -0.8 Normal Total Forearm (Left) -1.2 1/3 Forearm (Left) -1.5 Osteopenia UD Forearm (Left) -0.2 19DEXA 10/26/15 AP Spine (L1-L4) -1.7 Osteopenia Femoral Neck (Left) -1.8 Osteopenia Total Hip (Left) -0.7 Normal 20DEXA 11/16/12 osteopenia AP spine -2.4 , osteopenia total hip -1.2 , osteopenia femoral neck-2.2 21Right lower parathyroidectomy. 06/16/08 SURGEON: Danny Marie M.D. LAY BROTHER: Naima Bowling M.D. 22b/l submassive PE diagnosed on Dec 20 in [facility] 23TTE 12/22/15 in [facility]: RV dilatation, RVSP 46 24Per ECHO 05/24/17 Trace mitral regurgitation , trace TC regurgitation w no significant valve pathology 25meg colo July 2009 exc for 2 hyperplastic polyps 26Colonoscopy 2004 at [facility] per letter of Dr Amor Dobbins Social History Social History Type Response Smoking Status Never (less than 100 in lifetime) entered on: 10/22/20 Sex Patient Care team information Care Team Personnel Name: Diamond Weiss RN Position: [facility] RN Member Role: Primary Care Nurse Name: Tiara Cavazos RN Position: [facility] OB RN Member Role: Primary Care Nurse Name: Shreya Boss RN Position: [facility] RN Member Role: Primary Care Nurse Name: Jaylin Hernandez RN Position: [facility] Onco RN Member Role: Primary Care Nurse Name: Glen Cota MD Position: [facility] Renal MD Member Role: [employer] Consulting Physician Address: Address: [address] [place] [address] [facility] [place] [address]- Name: Florinda Trinh MD Position: [facility] Primary Care Physician Member Role: PCP Address: Address: [address] [place] [id number]- Care Team Related Persons Name: JOSE ELIAS TODD Address: [place] [address] Name: JOSE ELIAS KIRKLAND Address: home [address] [place] [id number] Name: LEONIE SCHRADER Address: [place] [address]
--- OUTSIDE RECORDS SUMMARY | 2023-10-23 09:35 | XMS_ITS | Continuity of Care Document ---
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 Name Role Phone Gayathri GARZA, Florinda Primary Care Physician Encounter [facility] Date(s): 01/07/20 - 02/06/20 [facility] [address] [place] [id number]- [facility] Attending Physician: Not on Staff, Attending MD Admitting Physician: Not on Staff, Admitting MD Referring Physician: Not on Staff, Referring MD Allergies, Adverse Reactions, Alerts Substance Reaction Severity Status penicillin RASH Active morphine itchy Active Lidocaine, Topical Active Immunizations Given and Recorded Vaccine Date Status Refusal Reason influenza virus vaccine, inactivated 01/16/19 Give n influenza virus vaccine, inactivated 01/17/18 Give n influenza virus vaccine, inactivated 01/04/17 Give n influenza virus vaccine, inactivated 1 03/04/15 Gi zeny influenza virus vaccine, inactivated 01/22/14 Give n influenza virus vaccine, inactivated 01/09/13 Give n influenza virus vaccine, inactivated 2 01/31/11 Gi zeny influenza virus vaccine, inactivated 3 02/01/10 Gi zeny influenza virus vaccine, inactivated 4 12/30/08 Gi zeny influenza virus vaccine, inactivated 5 02/09/06 Gi zeny influenza virus vaccine, inactivated 6 05/06/04 Gi zeny pneumococcal 13-valent vaccine 7 05/12/14 Given tetanus/diphtheria/pertussis, acel(Tdap) 8 05/12/14 Given Zoster Vaccine Live 9 10/16/12 Given pneumococcal 23-valent vaccine 10 11/10/10 Given pneumococcal 23-valent vaccine 11 05/20/04 Given tetanus-diphtheria toxoids (Td) 12 11/10/10 Given 1Result Comment: [03/04/2015] ORDERED BY DR. HAWK 2Admin Note: vis 11/02/2010 3Admin Note: given by ELLIOTT HEWITT. 4Admin Note: DENNY CHIU RN 5Admin Note: administered by denny chiu 6Admin Note: ADMINISTERED BY Jason 7Result Comment: [05/13/2014] Ordered by Kendall 8Result Comment: [05/13/2014] Ordered by Kendall 9Result Comment: [10/16/2012] ORDERED BY 10Admin Note: VIS 01/13/09 GIVEN 11Admin Note: ADMINISTERED BY RN 12Admin Note: VIS 02/26/08 GIVEN Medications acetaminophen 500 mg oral tablet 2 tablet = 1,000 mg, By Mouth, Every 6 hours, PRN as needed for pain or fever, (not to exceed 2000 mg/day) upper sorbian, # 100 tablet, 5 Refills, Maintenance, 01/22/20 9:18:00 EDT, [id number], 167, cm, 01/13/20 8:54:00 EDT, Height, 78.8, kg, 12/10... Start Date: 01/22/20 Status: Ordered Alcohol Wipes See Instructions, # [...] day, # 280 Gm, 11 Refills, Maintenance, 01/27/20 19:13:00 EDT, [id number], 1 applicator Topically 2 times a day, 167, cm, 01/13/20 8:54:00 EDT, Height, 78.8, kg, 01/01/20 3:41:00 EDT, Dry Weight Start Date: 01/27/20 Status: Ordered Benadryl:Maalox:Xylocaine 1% 1:1:1 Benadryl:Maalox:Xylocaine 1% 1:1:1, 30 cc, Swish and Spit, 4 times a day, # 1,000 mL, Refills 1, Tot. Refills 1, Maintenance, 01/13/20 17:07:00 EDT, Supply, 167, cm, 01/13/20 8:54:00 EDT, Height, 78.8, kg, 01/01/20 3:41:00 EDT, Dry Weight Start Date: 01/13/20 Stop Date: 01/31/20 Status: Ordered budesonide 0.5 mg/2 mL inhalation suspension 0.5 mg, 2, mL, Neb, Daily, given by credit analysis manager , Dr Berkowitz, # 120 mL, Refills 0, Maintenance,11/20/19 13:03:00 EDT, Suspension Start Date: 11/20/19 Status: Ordered calcium (as citrate)-vitamin D 315 mg-250 intl units oral tablet 2 tablet, By Mouth, 2 times a day, calcium citrate, # 120 tablet, 11 Refills, Maintenance, 01/26/2019:13:00 EDT, Tablet, [facility]/pharmacy #[id number], 2 tablet By Mouth 2 times a day,x30 days,Instr:calcium citrate, 167, cm, 01/13/20 8:54:00 EDT, Height, 78.8... Start Date: 01/27/20 Stop Date: 01/21/21 Status: Ordered capsaicin 0.025% topical cream 1 application, Topically, 3 times a day, # 90 Gm, 11 Refills, Maintenance, 09/25/19 11:21:00 EDT, Cream, [facility], 1 application Topically 3 times a day, 159, cm, 05/20/19 12:19:00 EST, Height, 88.1, kg, 04/25/19 16:02:00 EST, Start Date: 09/25/19 Status: Ordered Compression- Lower Extremity (Knee High) See Instructions, # 2 each, Refills 11, Tot. Refills 11, Maintenance, use daily; closed toes; 10-20mmHg. Dx peripheral vascular insufficiency I 87.2, 04/17/19 9:22:00 EST, Compound Start Date: 04/17/19 Status: Ordered CPAP Machine See Instructions, # 1 each, Refills 0, Tot. Refills 0, Maintenance, See prescription of CPAP equipment for details;sleep study on 05/01/17, obstructive sleep apnea, 07/19/17 13:00:20 EDT, Compound Start Date: 07/19/17 Status: Ordered CPAP Equipment See Instructions, # 1 each, Refills 0, Tot. Refills 0, Maintenance, use every night at 12 cm of water with a smallAirfit F20 full face mask with humidification. To be used at least 4 hours every night. Length of need: lifetime. To be use at home. D... Start Date: 07/19/17 Status: Ordered Cymbalta 60 mg oral enteric coated capsule 1 capsule = 60 mg, By Mouth, Daily, Decrease dose, # 30 capsule, 11 Refills, Maintenance, 01/27/20 19:13:00 EDT, EC Capsule, [facility]/pharmacy #[id number], 167, cm, 01/13/20 8:54:00 EDT, Height, 78.8, kg, 01/01/20 3:41:00 EDT, Dry Weight Start Date: 01/27/20 Status: Ordered dexamethasone 6 mg oral tablet 1 tablet = 6 mg, By Mouth, Daily, # 3 tablet, 0 Refills, Maintenance, 01/07/20 12:02:00 EDT, Tablet, [facility], 167, cm, 01/06/20 8:40:00 EDT, Height, 78.8, kg, 01/01/20 3:41:00 EDT, Dry Weight Start Date: 01/07/20 Stop Date: 01/10/20 Status: Ordered docusate sodium 100 mg oral tablet 2 tablet = 200 mg, By Mouth, 2 times a day, # 120 tablet, 11 Refills, Maintenance, 09/25/19 11:07:00 EDT, [facility], 159, cm, 05/20/19 12:19:00 EST, Height, 88.1, kg, 04/25/19 16:02:00 EST, Dry Weight Start Date: 09/25/19 Status: Ordered Eliquis 5 mg oral tablet 1 tablet = 5 mg, By Mouth, 2 times a day, # 60 tablet, 11 Refills, Maintenance, 07/22/19 8:58:00 EDT, Tablet, [facility], 159, cm, 05/20/19 12:19:00 EST, Height, 88.1, kg, 04/25/19 16:02:00 EST, Dry Weight Start Date: 07/22/19 Status: Ordered famotidine 40 mg oral tablet 1 tablet = 40 mg, By Mouth, Daily at bedtime, If 40 mg tablet is not available, can change to 20 mgtablet 2 tablet at bedtime, # 30 tablet, 2 Refills, Maintenance, 01/22/20 9:37:00 EDT, Tablet, [facility]/pharmacy #[id number], 167, cm, 01/13/20 8:54:00 EDT, Heigh... Start Date: 01/22/20 Status: Ordered ferrous sulfate 325 mg oral tablet 1 tablet = 325 mg, By Mouth, Daily, May take with food to minimize abdominal discomfort. Do not take with milk. Take preferrably with juice., # 90 tablet, 2 Refills, Maintenance, 01/22/20 9:38:00 EDT, [facility]/pharmacy #[id number], 167, cm, 01/13/20 8:54:00 EDT,... Start Date: 01/22/20 Status: Ordered Freestyle Lite Test Strips See Instructions, for 30 days, # 150 each, Refills 11, Tot. Refills 11, Hard Stop 03/13/20 11:16:10EST, Check up to 5 times daily. E11.65, 03/19/19 11:16:10 EST, Compound, 159, cm, 01/16/19 7:59:50 EDT, Height, 88.3, kg, 12/13/18 10:17:57 EDT, Dry We... Start Date: 03/19/19 Stop Date: 03/13/20 Status: Ordered Freestyle Lite Test Strips See Instructions, # 150 each, Refills 11, Tot. Refills 11, Maintenance, Check up to 5 times daily. E11.65, 03/13/20 11:16:00 EST, Compound, 167, cm, 01/13/20 8:54:00 EDT, Height, 78.8, kg, 01/01/20 3:41:00 EDT, Dry Weight Start Date: 03/13/20 Stop Date: 03/08/21 Status: Ordered Freestyle Lite Test Strips See Instructions, for 30 days, # 150 each, Refills 11, Tot. Refills 11, Hard Stop 03/08/21 11:16:00EST, Check up to 5 times daily. E11.65, 03/13/20 11:16:00 EST, Compound, 167, cm, 01/13/20 8:54:00 EDT, Height, 78.8, kg, 01/01/20 3:41:00 EDT, Dry Weight Start Date: 03/13/20 Stop Date: 03/08/21 Status: Ordered Glucose Tablets See Instructions, # 100 tablet, Refills 5, Tot. Refills 5, Maintenance, 1 tablet By Mouth prn low bs bellow 70, 01/22/20 9:32:00 EDT, Compound, 167, cm, 01/13/20 8:54:00 EDT, Height, 78.8, kg, 01/01/20 3:41:00 EDT, Dry Weight Start Date: 01/22/20 Status: Ordered hydroCHLOROthiazide 12.5 mg oral capsule 1 capsule = 12.5 mg, By Mouth, Daily, # 30 capsule, 4 Refills, Maintenance, 01/22/20 9:39:00 EDT, [id number], 167, cm, 01/13/20 8:54:00 EDT, Height, 78.8, kg, 01/01/20 3:41:00 EDT, Dry Weight Start Date: 01/22/20 Stop Date: 06/20/20 Status: Ordered ketotifen 0.025% ophthalmic solution 1 drops, Eyes, Both, Every 12 hours, PRN as needed for eye allergy, # 7.5 mL, 11 Refills, Maintenance, 01/27/20 19:13:00 EDT, [id number], 1 drops Eyes, Both Every 12 hours,PRN:as needed for eye allergy, 167, cm, 01/13/20 8:54:00 EDT, Height, 7... Start Date: 01/27/20 Status: Ordered Lancets See Instructions, # 150 each, Refills 11, Tot. Refills 11, Maintenance, use 4 xday for blood sugar testing DM type 2 insulin dependent, hyperglycemia/ hypoglycemia Free Style Lite ICD10 E11.65/E11.649, Z 79.4, Diabetes mellitus type2, 09/19/18 15:09... Start Date: 09/19/18 Status: Ordered loratadine 10 mg oral tablet 10 mg, 1, tablet, By Mouth, Daily, PRN, 90 days, # 90 tablet, Refills 1, Tot. Refills 1, Maintenance, as needed for allergy symptoms, 01/22/20 9:41:00 EDT, Route to Pharmacy Electronically, [facility]/pharmacy #[id number], 167, cm, 01/13/20 8:54:00 EDT, Height, 78... Start Date: 01/22/20 Status: Ordered metFORMIN 500 mg oral tablet 1 tablet = 500 mg, By Mouth, Daily, Take 1 tablet w/a meal daily, E11.65, # 30 tablet, 6 Refills, Maintenance, 01/17/20 16:28:00 EDT, [facility]/pharmacy #1972, 167, cm, 01/13/20 8:54:00 EDT, Height, 78.8, kg, 01/01/20 3:41:00 EDT, Dry Weight Start Date: 01/17/20 Status: Ordered NovoLOG FlexPen 100 units/mL subcutaneous solution See Instructions, Inject up to 26 untis via Insulin sliding scale 3x a day w/meals,MAX daily dose 78 units, E11.65, # 45 mL, 6 Refills, Maintenance, 01/21/20 14:30:00 EDT, [facility]/pharmacy #[id number], 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 Start Date: 01/21/20 Status: Ordered [id number] medical-grade oxford diabetic shoes, depth or hightop [id number] medical-grade oxford diabetic shoes, depth or hightop, See Instructions, # 1 pair, Refills 0, Tot. 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 Start Date: 09/19/18 Status: Ordered oxyCODONE 5 mg oral tablet 5 mg, 1, tablet, By Mouth, Every 4 hours, for 28 days, PRN pain dispense not earlier than 01/17/20, # 168 tablet, Refills 0, Tot. Refills 0, Acute 02/14/20 11:43:00 EST, 01/17/20 11:43:00 EDT, Route to Pharmacy Electronically, [facility]/pharmacy #1972, Part... Start Date: 01/17/20 Stop Date: 02/14/20 Status: Ordered oxyCODONE 5 mg oral tablet 5 mg, 1, tablet, By Mouth, Every 4 hours, for 28 days, PRN pain dispense not earlier than 02/14/20, # 168 tablet, Refills 0, Tot. Refills 0, Acute 03/13/20 11:43:00 EST, 02/14/20 11:43:00 EST, Route to Pharmacy Electronically, [facility]/pharmacy #1972, Part... Start Date: 02/14/20 Stop Date: 03/13/20 Status: Ordered Pen [place], 32 G x 4 mm BD Ultra Fine III See Instructions, # 360 each, Refills 3, Tot. Refills 3, Maintenance, Use as directed for insulin use 4 times a day DX IDDM; 90 days, 06/21/19 15:55:00 EDT, Compound, 159, cm, 05/20/19 12:19:00 EST, Height, 88.1, kg, 04/25/19 16:02:00 EST, D... Start Date: 06/21/19 Status: Ordered PLEASE DO NOT ERASE ANY [...] or juice), # 527 Gm,11 Refills, Maintenance, 01/27/20 19:13:00 EDT, [facility]/pharmacy #1026, 17- 34 Gm By Mouth Daily,PRN:asneeded for constipation,Instr:(dissolve in water or... Start Date: 01/27/20 Status: Ordered Protonix 40 mg oral delayed release tablet 1 tablet = 40 mg, By Mouth, Daily, Take 30 minutes before dinner, # 30 tablet, 4 Refills, Maintenance, 01/22/20 9:44:00 EDT, 167, cm, 01/13/20 8:54:00 EDT, Height, 78.8, kg, 01/01/20 3:41:00 EDT, DryWeight Start Date: 01/22/20 Status: Ordered Pull ups Pull ups, See Instructions, # 90 each, Refills 11, Tot. Refills 11, Maintenance, Wear daily during day and night. Change 3 times a day prn . Dx stress urinary incontinence ICD10 N39.3 Height 159 cm, weight 87.82 kg Length of need: 99 Disco... Start Date: 08/05/19 Status: Ordered Senna 8.6 mg oral tablet 17.2 mg, 2, tablet, By Mouth, 2 times a day, PRN, increase dose, # 60 tablet, Refills 11, Tot. Refills 11, Maintenance, for constipation, 09/25/19 11:08:00 EDT, Route to Pharmacy Electronically, [facility], 159, cm, 05/20/19... Start Date: 09/25/19 Status: Ordered Shoes insert, molded to foot Shoes insert, molded to foot, See Instructions, # 3 pair, Refills 0, Tot. Refills 0, Maintenance, wear every day in both foot Dx DM type 2 with peripheral neuropathy ICD10 E11.40; DMtype 2 pressure callus 11.628 right bunion M20.11, 09/19/18 15:08:... Start Date: 09/19/18 Status: Ordered Singulair 10 mg oral tablet 10 mg, 1, tablet, By Mouth, Daily at bedtime, Take every night even if doesn't has any asthma or allergies symptoms., # 30 tablet, Refills 3, Tot. Refills 3, Maintenance, 01/22/20 9:43:00 EDT, Route to Pharmacy Electronically, [facility]/pharmacy #[id number], 167,... Start Date: 01/22/20 Status: Ordered TENS electrode pads TENS electrode pads, See Instructions, # 1 box, Refills 5, Tot. Refills 5, Maintenance, use as directed for back pain Dx LBP M54.9 1 box of 4, 12/06/16 14:59:01, Compound Start Date: 12/06/16 Status: Ordered Trelegy Ellipta inhalation powder 1 puffs, Inhalation, Daily, at the same time every day given by credit analysis manager , Dr Berkowitz, # 60 each, 0 Refills, Maintenance, 11/20/19 13:03:00 EDT, Powder Start Date: 11/20/19 Status: Ordered Tresiba FlexTouch 200 units/mL subcutaneous solution See Instructions, Inject 86 units daily at 9pm, E11.65, # 45 mL, 6 Refills, Maintenance, 01/21/20 14:30:00 EDT, [facility]/pharmacy #[id number], 167, cm, 01/13/20 8:54:00 EDT, Height, 78.8, kg, 01/01/20 3:41:00 EDT, Dry Weight Start Date: 01/21/20 Status: Ordered Ventolin HFA 108 mcg/inh inhalation aerosol with adapter 2 puffs, Inhalation, 4 times a day, PRN Wheezing/Shortness of Breath, dispense when patient requestit, # 18 Gm, 5 Refills, Maintenance, 01/22/20 9:19:00 EDT, [facility]/pharmacy #[id number], 167, cm, 01/13/20 8:54:00 EDT, Height, 78.8, kg, 01/01/20 3:41:00 EDT, D... Start Date: 01/22/20 Status: Ordered Vitamin D3 1000 intl units oral tablet 1 tablet = 1,000 International_Units, By Mouth, Daily, # 90 tablet, 0 Refills, Maintenance, 01/22/20 9:21:00 EDT, [facility]/pharmacy #1026, 167, cm, 01/13/20 8:54:00 EDT, Height, 78.8, kg, 01/01/20 3:41:00EDT, Dry Weight Start Date: 01/22/20 Status: Ordered [place]ia Reusable Bed Pad 34 x 36 [place] Reusable Bed Pad 34 x 36 , See Instructions, # 1 each, Refills 11, Tot. Refills 11, Maintenance, Use daily at bedtime Dx mixed urinary incontinence ICD10 N39.46 Length of need: 99, 10/25/17 8:32:00 EDT, Compound Start Date: 10/25/17 Status: Ordered Problem List Condition Effective Dates Status Health Status Inform ant Anxiety depression(Confirmed) Active AVM (arteriovenous malformat ion) of colon(Confirmed) 1 07/2014 Active Back pain(Confirmed) 2, 3 Active Bronchial asthma(Confirmed) Active Cataract(Confirmed) 4 Active Cholecystectomy(Confirmed) Active Chronic kidney disease (CKD) - stage 3(Confirmed) Active Deep vein thrombosis (DVT)(C onfirmed) 5 12/21/15 Active Diabetes mellitus type 2(Confirmed) 6 Active Diabetic neuropathy(Confirmed) 09/19/07 Active Diabetic angiopathy(Confirmed) Active Diastolic dysfunction(Confirmed) 7 05/24/17 Active Dry skin(Confirmed) Active Esophageal varices(Confirmed) 8, 9 06/24/16 Active Fibromyalgia muscle pain(Confirmed) 09/12/12 Active Gastritis(Confirmed) 10 06/24/16 Active Hearing test abnormal(Confirmed) 11 12/29/11 Active Hepatitis C(Confirmed) Active assisted current use of opi ate analgesic-LBP(Confirmed) 12 Active Hypercholesterolemia(Confirmed) Active Hyperparathyroidism s/p righ t lower parathyroidectomy 06/16/2008(Confirmed) Active Hypertension(Confirmed) Active Hysterectomy(Confirmed) Active Incontinence of urine(Confirmed) Active Iron deficiency anemia(Confirmed) Active Left ventricular hypertrophy(Confirmed) 13 Active Memory impairment(Confirmed) Active Mitral regurgitation(Confirmed) 14 05/24/17 Active Nephrolithiasis(Confirmed) 15, 16, 17 06/11/02 Active Obesity(Confirmed) Active JENNIFER (obstructive sleep apnea)(Confirmed) Active Osteopenia(Confirmed) 18, 19 11/16/12 Active *[id number]-Care Partn david [place](Confirmed) Active Peripheral venous insufficiency(Confirmed) 10/31/11 Active Positive PPD(Confirmed) 10/09/14 Active Primary hyperparathyroidism( Confirmed) 20 Active Bilateral pulmonary embolism(Confirmed) 21 12/21/15 Active Pulmonary embolism(Confirmed) Active Pulmonary hypertension(Confirmed) Active Right ventricular dilation(C onfirmed) 22 12/22/15 Active Seasonal allergic rhinitis(Confirmed) Active TR (tricuspid regurgitation)(Confirmed) 23 05/24/17 Active Tubular adenoma(Confirmed) 24, 25 04/10/04 Active Calcium oxalate crystals in urine(Confirmed) 01/22/14 Active 1Colonoscopy July 2014: hyperplastic polyp and [...] 2 peroneal veins diagnosed on Dec 20 [facility] 6insulin dependent 7Per ECHO 05/24/1718 Grade I, mild diastolic dysfunction with impaired LV relaxation, which may be normal for the patient's age. 8endoscopy 10/05/2018 w non bleeding grade 1 esophageal varices 9EGD on 06/24/16 by GI, Dr Damien Dobbins w gastritis and esophageal varices grade 1 10EGD on 06/24/16 by GI, Dr Damien Dobbins w gastritis and esophageal varices grade 1 11left mild sensorineural hearing loss by [facility] Evaluation on 12/29/11 12Narcotic contract w Dr Florinda Trinh 13Per ECHO 05/24/17 Mild concentric left ventricular hypertrophy 14Per ECHO 05/24/17 Trace mitral regurgitation , mild TC regurgitation w no significant valve pathology PHYSICIAN: Daniel Lamb M.D. DIAGNOSIS: Right ureterolithiasis. OPERATION : Right extracorporeal shock wave lithotripsy 16Hx of laser treatment per patient unknown date 17bilateral by CT scan 18DEXA 10/26/15 AP Spine (L1-L4) -1.7 Osteopenia Femoral Neck (Left) -1.8 Osteopenia Total Hip (Left) -0.7 Normal 19DEXA 11/16/12 osteopenia AP spine -2.4 , osteopenia total hip -1.2 , osteopenia femoral neck-2.2 20Right lower parathyroidectomy. 06/16/08 SURGEON: Danny Marie M.D. REFRIGERATION REPAIR SUPERVISOR: Naima Bowling M.D. 21b/l submassive PE diagnosed on Dec [address] [facility] 22TTE 12/22/[address] [facility]: RV dilatation, RVSP 46 23Per ECHO 05/24/17 Trace mitral regurgitation , trace TC regurgitation w no significant valve pathology 24meg colo July 2009 exc for 2 hyperplastic polyps 25Colonoscopy 2004 at [facility] [place] per letter of Dr mAor Dobbins Social History Social History Type Response Smoking Status Never (less than 100 in lifetime) entered on: 12/25/19 Sex
--- OUTSIDE RECORDS SUMMARY | 2023-10-23 09:35 | XMS_ITS | Continuity of Care Document ---
Author Organization [facility] Address [address] [place] [address]- Care Team Providers Care Color Receiver Name Role Phone Gayathri GARZA, Florinda Primary Care Physician Encounter [facility] Date(s): 05/21/20 - 06/20/20 [facility] [address] [place] [place] [address]- Allergies, Adverse Reactions, Alerts Substance Reaction Severity Status penicillin RASH Active morphine itchy Active Bactrim 1 hyperkalemia Active Lidocaine, Topical Active 1Hyperkalemia when used together with lisinopril Immunizations Given and Recorded Vaccine Date Status Refusal Reason SARS-CoV-2 (COVID-19) mRNA BNT-162b2 vac 1 06/11/20 Given SARS-CoV-2 (COVID-19) mRNA BNT-162b2 vac 2 05/21/20 Given influenza virus vaccine, inactivated 02/25/20 Give n influenza virus vaccine, inactivated 01/16/19 Give n influenza virus vaccine, inactivated 01/17/18 Give n influenza virus vaccine, inactivated 01/04/17 Give n influenza virus vaccine, inactivated 3 03/04/15 Gi zeny influenza virus vaccine, inactivated 01/22/14 Give n influenza virus vaccine, inactivated 01/09/13 Give n influenza virus vaccine, inactivated 4 01/31/11 Gi zeny influenza virus vaccine, inactivated 5 02/01/10 Gi zeny influenza virus vaccine, inactivated 6 12/30/08 Gi zeny influenza virus vaccine, inactivated 7 02/09/06 Gi zeny influenza virus vaccine, inactivated 8 05/06/04 Gi zeny pneumococcal 13-valent vaccine 9 05/12/14 Given tetanus/diphtheria/pertussis, acel(Tdap) 10 05/12/14 Given Zoster Vaccine Live 11 10/16/12 Given pneumococcal 23-valent vaccine 12 11/10/10 Given pneumococcal 23-valent vaccine 13 05/20/04 Given tetanus-diphtheria toxoids (Td) 14 11/10/10 Given 1Result Comment: Masood RUVALCABA RN 2Result Comment: Given by Lenoie Garcia RN 3Result Comment: [03/04/2015] ORDERED BY DR. HAWK 4Admin Note: vis 11/02/2010 5Admin Note: given by ELLIOTT HEWITT. 6Admin Note: MELISSA CHIU RN 7Admin Note: administered by melissa chiu 8Admin Note: ADMINISTERED BY RYoana 9Result Comment: [05/13/2014] Ordered by Kendall 10Result Comment: [05/13/2014] Ordered by Kendall 11Result Comment: [10/16/2012] ORDERED BY 12Admin Note: VIS 01/13/09 GIVEN 13Admin Note: ADMINISTERED BY RN 14Admin Note: VIS 02/26/08 GIVEN Medications acetaminophen 500 mg oral tablet 2 tablet = 1,000 mg, By Mouth, Every 6 hours, PRN as needed for pain or fever, (not to exceed 2000 mg/day) danish, # 100 tablet, 5 Refills, Maintenance, 01/22/20 9:18:00 EDT, [facility]/pharmacy #[id number], 167, cm, 01/13/20 8:54:00 EDT, Height, 78.8, kg, 12/10... Start Date: 01/22/20 Status: Ordered Alcohol Wipes See Instructions, # 150 each, Refills 11, Tot. Refills 11, Maintenance, Use to check blood sugar, up to 5 times daily. E11.65, IDDM, 01/21/20 14:41:00 EDT, Compound, 167, cm, 01/13/20 8:54:00 EDT, Height, 78.8, kg, 01/01/20 3:41:00 EDT, Dry Weight Start Date: 01/21/20 Status: Ordered amLODIPine 2.5 mg oral tablet 2.5 mg, 1, tablet, By Mouth, Daily, # 30 tablet, Refills 2, Tot. Refills 2, Maintenance, 06/12/20 8:36:00 EST, Route to Pharmacy Electronically, [facility]/pharmacy #[id number], 160, cm, 06/04/20 11:29:00 EST, Height, 80.6, kg, 06/03/20 19:00:00 EST, Dry Weight Start Date: 06/12/20 Status: Ordered ammonium lactate 12% topical cream 1 applicator, Topically, 2 times a day, # 280 Gm, 11 Refills, Maintenance, 01/27/20 19:13:00 EDT, [facility]/pharmacy #[id number], 1 applicator Topically 2 times a day, 167, cm, 01/13/20 8:54:00 EDT, Height, 78.8, kg, 01/01/20 3:41:00 EDT, Dry Weight Start Date: 01/27/20 Status: Ordered calcium (as citrate)-vitamin D 315 mg-250 intl units oral tablet 2 tablet, By Mouth, 2 times a day, for 30 days, calcium citrate, # 120 tablet, 11 Refills, Hard Stop 01/21/21 19:13:00 EDT, 01/27/20 19:13:00 EDT, Tablet, [facility]/pharmacy #[id number], 167, cm, 01/13/20 8:54:00 EDT, Height, 78.8, kg, 01/01/20 3:41:00 EDT, Dry... Start Date: 01/27/20 Stop Date: 01/21/21 Status: Ordered capsaicin 0.025% topical cream 1 application, Topically, 3 times a day, # 90 Gm, 11 Refills, Maintenance, 02/10/20 11:22:00 EST, Cream, [facility]/pharmacy #1026, 1 application Topically 3 times a day, 167, cm, 01/13/20 8:54:00 EDT, Height, 78.8, kg, 01/01/20 3:41:00 EDT, Dry Weight Start Date: 02/10/20 Status: Ordered Compression- Lower Extremity (Knee High) See Instructions, # 2 each, Refills 11, Tot. Refills 11, Maintenance, use daily; closed toes; 10-20mmHg. Dx peripheral vascular insufficiency I 87.2, 04/17/19 9:22:00 EST, Compound Start Date: 04/17/19 Status: Ordered CPAP Equipment See Instructions, # [...] Refills, Maintenance, 01/27/20 19:13:00 EDT, EC Capsule, [facility]/pharmacy #1026, 167, cm, 01/13/20 8:54:00 EDT, Height, 78.8, kg, 01/01/20 3:41:00 EDT, Dry Weight Start Date: 01/27/20 Status: Ordered Eliquis 5 mg oral tablet 1 tablet = 5 mg, By Mouth, 2 times a day, # 60 tablet, 11 Refills, Maintenance, 02/10/20 11:22:00 EST, Tablet, [facility]/pharmacy #1026, 167, cm, 01/13/20 8:54:00 EDT, Height, 78.8, kg, 01/01/20 3:41:00 EDT, Dry Weight Start Date: 02/10/20 Status: Ordered famotidine 40 mg oral tablet 1 tablet = 40 mg, By Mouth, Daily at bedtime, If 40 mg tablet is not available, can change to 20 mgtablet 2 tablet at bedtime, # 30 tablet, 2 Refills, Maintenance, 04/04/20 16:07:00 EST, Tablet, [facility]/pharmacy #1026, 167, cm, 02/24/20 17:04:00 EST, Hei... Start Date: 04/04/20 Status: Ordered ferrous sulfate 325 mg oral tablet 1 tablet = 325 mg, By Mouth, Daily, May take with food to minimize abdominal discomfort. Do not take with milk. Take preferrably with juice., # 90 tablet, 2 Refills, Maintenance, 01/22/20 9:38:00 EDT, [facility]/pharmacy #[id number], 167, cm, 01/13/20 8:54:00 EDT,... Start Date: 01/22/20 Status: Ordered Freestyle Lite Test Strips See Instructions, # 150 each, Refills 11, Tot. Refills 11, Maintenance, Check up to 5 times daily. E11.65, 03/13/20 11:16:00 EST, Compound, 167, cm, 01/13/20 8:54:00 EDT, Height, 78.8, kg, 01/01/20 3:41:00 EDT, Dry Weight Start Date: 03/13/20 Stop Date: 03/08/21 Status: Ordered glucerna glucerna, 1 can, By Mouth, Daily, # 30 each, Refills 11, Tot. Refills 11, Maintenance, Indication: malnutrition E46, DM type 2 E11.9, 04/29/20 14:19:00 EST, Compound Start Date: 04/29/20 Stop Date: 04/24/21 Status: Ordered Glucose Tablets See Instructions, # [...] ICD10 E11.65/E11.649, Z 79.4, Diabetes mellitus type2, 02/10/20 11:23... Start Date: 02/10/20 Status: Ordered loratadine 10 mg oral tablet 10 mg, 1, tablet, By Mouth, Daily, PRN, 90 days, # 90 tablet, Refills 1, Tot. Refills 1, Maintenance, as needed for allergy symptoms, 01/22/20 9:41:00 EDT, Route to Pharmacy Electronically, [facility]/pharmacy #1026, 167, cm, 01/13/20 8:54:00 EDT, Height, 78... Start Date: 01/22/20 Status: Ordered NovoLOG FlexPen 100 units/mL subcutaneous solution See Instructions, Inject up to 26 untis via Insulin sliding scale 3x a day w/meals,MAX daily dose 78 units, E11.65, # 45 mL, 6 Refills, Maintenance, 01/21/20 14:30:00 EDT, [facility]/pharmacy #1026, 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 Start Date: 01/21/20 Status: Ordered [id number] medical-grade oxford diabetic shoes, depth or hightop [id number] medical-grade oxford diabetic shoes, depth or hightop, [...] days, PRN pain dispense not earlier than 06/12/20, #168 tablet, Refills 0, Tot. Refills 0, Acute 07/10/20 10:25:00 EDT, 06/12/20 10:25:00 EST, Route toPharmacy Electronically, [facility]/pharmacy #1026, Parti... Start Date: 06/12/20 Stop Date: 07/10/20 Status: Ordered oxyCODONE 5 mg oral tablet 5 mg, 1, tablet, By Mouth, Every 4 hours, for 28 days, PRN pain dispense not earlier than 07/10/20, #168 tablet, Refills 0, Tot. Refills 0, Acute 08/07/20 10:25:00 EDT, 07/10/20 10:25:00 EDT, Route toPharmacy Electronically, [facility]/pharmacy #1026, Parti... Start Date: 07/10/20 Stop Date: 08/07/20 Status: Ordered Pen Reeders, 32 G x 4 mm BD Ultra [...] 527 Gm,11 Refills, Maintenance, 01/27/20 19:13:00 EDT, [facility], 17- 34 Gm By Mouth Daily,PRN:asneeded for constipation,Instr:(dissolve in water or... Start Date: 01/27/20 Status: Ordered Protonix 40 mg oral delayed release tablet 1 tablet = 40 mg, By Mouth, Daily, Take 30 minutes before dinner, # 30 tablet, 2 Refills, Maintenance, 05/01/20 9:26:00 EST, 167, cm, 04/29/20 9:24:00 EST, Height, 82, kg, 04/19/20 9:58:00 EST, Dry Weight Start Date: 05/01/20 Status: Ordered Pull ups Pull ups, See Instructions, # 120 each, Refills 11, Tot. Refills 11, Maintenance, Wear daily duringday and night. Change 4 times a day prn . Dx stress urinary incontinence ICD10 N39.3 Height 159 cm,weight 82 kg Length of need: 99 Size- l... Start Date: 04/29/20 Status: Ordered Senna 8.6 mg oral tablet 17.2 mg, 2, tablet, By Mouth, 2 times a day, PRN, discontinue docusate, # 60 tablet, Refills 11, Tot. Refills 11, Maintenance, for constipation, 02/10/20 11:22:00 EST, Route to Pharmacy Electronically, [facility]/pharmacy #1026 Tablet, 167, cm, 01/13/20 8:5... Start Date: 02/10/20 Status: Ordered Shoes insert, molded to foot [...] or allergies symptoms., # 30 tablet, Refills 5, Tot. Refills 5, Maintenance, 05/01/20 9:28:00 EST, Route to Pharmacy Electronically, [facility]/pharmacy #1026, 167,... Start Date: 05/01/20 Status: Ordered TENS electrode pads TENS electrode pads, See Instructions, # 1 box, Refills 5, Tot. Refills 5, Maintenance, use as directed for back pain Dx LBP M54.9 1 box of 4, 12/06/16 14:59:01, Compound Start Date: 12/06/16 Status: Ordered Trelegy Ellipta inhalation powder 1 puffs, Inhalation, Daily, at the same time every day given by footwear factory worker , Dr Berkowitz, # 60 each, 0 Refills, Maintenance, 11/20/19 13:03:00 EDT, Powder Start Date: 11/20/19 Status: Ordered Tresiba FlexTouch 200 units/mL subcutaneous solution See Instructions, Inject 55 units daily at 9pm, E11.65. titrate accordingly, # 45 mL, 6 Refills, Maintenance, 01/21/20 14:30:00 EDT, [id number], 167, cm, 01/13/20 8:54:00 EDT, Height, 78.8, kg, 01/01/20 3:41:00 EDT, Dry Weight Start Date: 01/21/20 Status: Ordered Ventolin HFA 108 mcg/inh inhalation aerosol with adapter 2 puffs, Inhalation, 4 times a day, PRN Wheezing/Shortness of Breath, dispense when patient requestit, # 18 Gm, 5 Refills, Maintenance, 06/12/20 8:41:00 EST, [facility], 160, cm, 06/04/20 11:29:00 EST, Height, 80.6, kg, 06/03/20 19:00:00 EST,... Start Date: 06/12/20 Status: Ordered Vitamin D3 1000 intl units oral tablet 1 tablet = 1,000 International_Units, By Mouth, Daily, # 90 tablet, 1 Refills, Maintenance, 04/15/20 12:22:00 EST, [facility], 167, cm, 04/13/20 10:16:00 EST, Height, 78.8, kg, 01/01/20 3:41:00 EDT, Dry Weight Start Date: 04/15/20 Status: Ordered Voltaren 1% topical gel = 2 Gm, Topically, 4 times a day, # 100 Gm, 5 Refills, Maintenance, 06/12/20 8:44:00 EST, [facility], 2 Gm Topically 4 times a day,x14 days, 160, cm, 06/04/20 11:29:00 EST, Height, 80.6, kg, 06/03/20 19:00:00 EST, Dry Weight Start Date: 06/12/20 Stop Date: 09/04/20 Status: Ordered [place] Reusable Bed Pad 34 x 36 [place] Reusable Bed Pad 34 x 36 , See Instructions, # 1 each, Refills 11, Tot. Refills 11, Maintenance, Use daily at bedtime Dx mixed urinary incontinence ICD10 N39.46 Length of need: 99, 10/25/17 8:32:00 EDT, Compound Start Date: 10/25/17 Status: Ordered Problem List Condition Effective Dates Status Health Status Inform ant Anemia due to GI blood loss(Confirmed) Active Anxiety depression(Confirmed) Active AVM (arteriovenous malformat ion) of colon(Confirmed) 1 07/2014 Active Asthma with COPD(Confirmed) Active Back pain(Confirmed) 2, 3 Active Cataract(Confirmed) 4 Active Cholecystectomy(Confirmed) Active Chronic kidney disease (CKD) - stage 3(Confirmed) Active Deep vein thrombosis (DVT)(C onfirmed) 5 12/21/15 Active Oxygen dependent(Confirmed) Active Diabetes mellitus type 2(Confirmed) 6 Active Diabetic neuropathy(Confirmed) 09/19/07 Active Diabetic angiopathy(Confirmed) Active Diastolic dysfunction(Confirmed) 7 05/24/17 Active Dry skin(Confirmed) Active Dysuria(Confirmed) Active Esophageal varices(Confirmed) 8, 9 06/24/16 Active Fibromyalgia muscle pain(Confirmed) 09/12/12 Active Gastritis(Confirmed) 10 06/24/16 Active Hearing test abnormal(Confirmed) 11 12/29/11 Active Hepatitis C(Confirmed) Active residential current use of opi ate analgesic-LBP(Confirmed) 12 Active Hypercholesterolemia(Confirmed) Active Hyperparathyroidism s/p righ t lower parathyroidectomy 06/16/2008(Confirmed) Active Hypertension(Confirmed) Active Hysterectomy(Confirmed) Active Incontinence of urine(Confirmed) Active Iron deficiency anemia(Confirmed) Active Left ventricular hypertrophy(Confirmed) 13 Active 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) Active Memory impairment(Confirmed) Active Mitral regurgitation(Confirmed) 14 05/24/17 Active Nephrolithiasis(Confirmed) 15, 16, 17 06/11/02 Active Obesity(Confirmed) Active JENNIFER (obstructive sleep apnea)(Confirmed) Active Osteopenia(Confirmed) 18, 19 11/16/12 Active *[id number] Cheri Partn igor More(Confirmed) Active Peripheral venous insufficiency(Confirmed) 10/31/11 Active Positive PPD(Confirmed) 10/09/14 Active Primary hyperparathyroidism( Confirmed) 20 Active Bilateral pulmonary embolism(Confirmed) 21 12/21/15 Active Pulmonary embolism(Confirmed) Active Pulmonary hypertension(Confirmed) Active Restless leg syndrome(Confirmed) Active Right ventricular dilation(C onfirmed) 22 12/22/15 [...] 2 peroneal veins diagnosed on Dec [address] [facility] 6insulin dependent 7Per ECHO 05/24/1718 Grade I, [...] 1 11left mild sensorineural hearing loss by [facility] Hearing Evaluation on 12/29/11 12Narcotic contract w [...] lower parathyroidectomy. 06/16/08 SURGEON: Danny Marie M.D. DESK ATTENDANT: Naima Bowling M.D. 21b/l submassive PE diagnosed on Dec [address] [facility] 22TTE 12/22/[address] [facility]: RV dilatation, RVSP 46 23Per ECHO 05/24/17 Trace mitral regurgitation , trace TC regurgitation w no significant valve pathology 24meg colo July 2009 exc for 2 hyperplastic polyps 25Colonoscopy 2004 at [facility] [place] per letter of Dr Amor Dobbins Social History Social History Type Response Smoking Status Never (less than 100 in lifetime) entered on: 06/12/20 Sex
--- OUTSIDE RECORDS SUMMARY | 2023-10-23 09:35 | XMS_ITS | Continuity of Care Document ---
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 Role Phone Massimo Figueroa Primary Care Physician [place] [facility] [place]): [place]/22 [facility] [address] [place] [id number]- Attending Physician: Yaya Patino Admitting Physician: Yaya Patino Referring Physician: AdmtrYaya Allergies, Adverse Reactions, Alerts Substance Reaction Severity Status enalapril hyperkalemia Active penicillin RASH Active Bactrim 1 hyperkalemia Active Lidocaine, Topical Active morphine itchy Active 1Hyperkalemia when used together with lisinopril Immunizations Given and Recorded Vaccine Date Status Refusal Reason [id number] 12y+ bivalent booster vax 05/25/22 Given influenza [...] zoster vaccine, inactivated 09/15/21 Given SARS-CoV-2 mRNA ([id number]) vax 09/15/21 Given SARS-CoV-2 (COVID-19) mRNA BNT-162b2 [...] Masood RUVALCABA RN 8Result Comment: Given by Leonie Garcia RN 9Result Comment: [05/13/2014] Ordered by Kendall 10Result Comment: [05/13/2014] Ordered by Kendall 11Result Comment: [10/16/2012] ORDERED BY 12Admin Note: VIS 01/13/09 GIVEN 13Admin Note: ADMINISTERED BY HEIDY 14Admin Note: VIS 02/26/08 GIVEN Medications acetaminophen 650 mg oral tablet, extended release 2 tablet = 1,300 mg, By Mouth, Every 8 hours, PRN Pain, (do not crush or chew) (not to exceed 6 tablets/day), # 100 tablet, 11 Refills, Maintenance, 05/25/22 12:08:00 EST, ER Tablet, [id number], Discontinue Motrin, 158, cm, 05/25/22 11:12:00... Start Date: 05/25/22 Status: Ordered Alcohol Wipes See Instructions, # 400 each, Refills 4, Tot. Refills 4, Maintenance, Use inject insulin and check blood sugar up to 5 times daily. E11.9, IDDM, 11/24/22 16:02:00 EDT, Compound, 158, cm, 11/24/22 8:48:00 EDT, Height, 76, kg, 05/07/22 6:04:00 EST, Dry... Start Date: 11/24/22 Status: Ordered ammonium lactate 12% topical cream 1 applicator, Topically, 2 times a day, # 280 Gm, 11 Refills, Maintenance, 07/21/21 12:43:00 EDT, [facility] #[id number], 1 applicator Topically 2 times a day, 160, cm, 07/21/21 10:22:00 EDT, Height, 80.6, kg, 06/03/20 19:00:00 EST, Dry Weight Start Date: 07/21/21 Status: Ordered Baqsimi Two Pack 3 mg nasal powder = 3 mg, Naris, Right, Once, Please use for a low blood sugar emergency, may repeat in 15 minutes, #1 each, 3 Refills, Soft Stop, 03/09/22 11:35:00 EST, [facility] #[id number], 160, cm, 03/09/22 10:43:00EST, Height, 78, kg, 01/14/22 19:37:00 EDT, Dry W... Start Date: 03/09/22 Status: Ordered Biotene Moisturizing Mouth oral spray See Instructions, [place] directly into mouth; spray is safe to swallow as needed for dry mouth, # 45mL, 11 Refills, Maintenance, 05/25/22 12:42:00 EST, [facility] #[id number], Partial fill upon patient request [...] busPIRone 15 mg oral tablet See Instructions, TAKE 1/3- 1/2 HALF TABLET IN THE MORNING AND IN P.M. NEEDED & 1 TAB AT [facility], # 180 tablet, 1 Refills, Maintenance, 08/05/22 12:49:00 EDT, [id number], 158, cm, 07/12/22 11:54:00 EDT, Height, 76, kg, 05/07/22 6:04:00 ES... Start Date: 08/05/22 Status: Ordered capsaicin 0.025% topical cream 1 application, Topically, 3 times a day, # 35 Gm, 11 Refills, Maintenance, 07/21/21 12:26:00 EDT, Cream, [facility]/pharm[facility] #[id number], 1 application Topically 3 times a day, 160, cm, 07/21/21 10:22:00 EDT, Height, 80.6, kg, 06/03/20 19:00:00 EST, Dry Weight Start Date: 07/21/21 Status: Ordered Compression- Lower Extremity (Knee High) See Instructions, # 2 each, Refills 11, Tot. Refills 11, Maintenance, use daily; closed toes; 10-20mmHg. Dx peripheral vascular insufficiency I 87.2, 07/21/21 12:36:00 EDT, Compound Start Date: 07/21/21 Status: Ordered cyclobenzaprine 10 mg oral tablet TAKE 1 TABLET BY MOUTH 3 TIMES A DAY NEEDED FOR MUSCLE SPASMS Start Date: 11/24/22 Status: Ordered Eliquis 5 mg oral tablet [...] 11 Refills, Maintenance, 12/06/21 15:04:00 EDT, Tablet, [facility], Partial fill upon patient request if the prescription is for a schedule II opioid drug., 160, cm, 11/23/21 14:47:00 ED... Start Date: 12/06/21 Status: Ordered esomeprazole 40 mg oral enteric coated capsule See Instructions, TAKE 1 CAPSULE BY MOUTH DAILY 30 MINUTES BEFORE BREAKFAST, # 30 capsule, 2 Refills, Maintenance, 11/09/22 10:47:00 EDT, [id number], 158, cm, 07/12/22 11:54:00 EDT, Height, 76, kg, 05/07/22 6:04:00 EST, Dry Weight Start Date: 11/09/22 Status: Ordered famotidine 40 mg oral tablet 1 tablet = 40 mg, By Mouth, Daily at bedtime, If 40 mg tablet is not available, can be changed to 20 mg tablet 2 tablet at bedtime, # 90 tablet, 3 Refills, Maintenance, 07/12/21 18:53:00 EDT, Tablet,[facility][id number], Discontinue 30- day supply presc... Start Date: 07/12/21 Stop Date: 07/07/22 Status: Ordered ferrous sulfate 325 mg oral tablet 1 tablet = 325 mg, By Mouth, Daily, May take with food to minimize abdominal discomfort. Do not take with milk. Take preferrably with juice., # 90 tablet, 3 Refills, Maintenance, 09/15/21 8:56:00 EDT, [facility] #[id number], 160, cm, 09/15/21 8:15:00 EDT,... [...] Freestyle rony 2 sensor, See Instructions, # 6 each, Refills 4, Tot. Refills 4, Maintenance, use as directed to continuously monitor glucose for Type 2 Diabetes Mellitus, replace sesnor every 14 days. Scan sensor at least every 8 hours., 11/24/22 16:... Start Date: 11/24/22 Status: Ordered Freestyle Lite Test Strips See Instructions, # 150 each, Refills 11, Tot. Refills 11, Maintenance, Check up to 5 times daily. E11.65, 03/13/20 11:16:00 EST, Compound, 167, cm, 01/13/20 8:54:00 EDT, Height, 78.8, kg, 01/01/20 3:41:00 EDT, Dry Weight Start Date: 03/13/20 Stop Date: 03/08/21 Status: Ordered Glucose Tablets See Instructions, # 100 tablet, Refills 5, Tot. Refills 5, Maintenance, Chew 4 tablets as needed for blood sugar less than 70., 11/24/22 16:02:00 EDT, Compound, 158, cm, 11/24/22 8:48:00 EDT, Height,76, kg, 05/07/22 6:04:00 EST, Dry Weight Start Date: 11/24/22 Status: Ordered isosorbide mononitrate 30 mg oral tablet, extended release See Instructions, TOME GAGE TABLETA POR VIA ORAL CADA MANANA, # 90 tablet, 0 Refills, Maintenance, 07/08/22 9:47:00 EDT, [id number], 158, cm, 06/16/22 11:27:00 EST, Height, 76, kg, 05/07/22 6:04:00 EST, Dry Weight Start Date: 07/08/22 Status: Ordered ketotifen 0.025% ophthalmic solution 1 drops, Eyes, Both, Every 12 hours, PRN as needed for eye allergy, # 7.5 mL, 11 Refills, Maintenance, 06/25/21 8:34:00 EDT, [id number], 1 drops Eyes, Both [...] 90 tablet, 3 Refills, 03/09/22 11:57:00 EST, [facility]/pharmacy #[id number], 1 tablet By Mouth Daily before dinner,PRN:allergies, 160, cm, 03/09/22 10:43:00 EST, Height, 78, kg, 01/14/22 19:37:00 ED... Start Date: 03/09/22 Status: Ordered LORazepam 0.5 mg oral tablet TAKE 1 TABLET BY MOUTH 3 TIMES DAILY NEEDED FOR ANXIETY OR SLEEP Start Date: 11/24/22 Status: Ordered montelukast 10 mg oral tablet 10 mg, 1, tablet, By Mouth, Daily at bedtime, # 90 tablet, Refills 3, Tot. Refills 3, Maintenance, 03/09/22 11:37:00 EST, Route to Pharmacy Electronically, [facility] #[id number], 160, cm, 03/09/22 10:43:00 EST, Height, 78, kg, 01/14/22 19:37:00 EDT, Dry... Start Date: 03/09/22 Stop Date: 03/04/23 Status: Ordered nitroglycerin 0.[address] 1 TABLET UNDER TONGUE EVERY 5 MINS, UP TO 3 DOSES NEEDED FOR CHEST PAIN Start Date: 11/24/22 Status: Ordered Norvasc 5 mg oral tablet 5 mg, 1, tablet, By Mouth, Daily, # 90 tablet, Refills 3, Tot. Refills 3, Maintenance, 03/09/22 11:54:00 EST, [id number] 160, cm, 03/09/22 10:43:00 EST, Height, 78, kg, 01/14/22 19:37:00 EDT, Dry Weight Start Date: 03/09/22 Stop Date: 03/04/23 Status: Ordered NovoLOG FlexPen 100 units/mL subcutaneous solution See Instructions, Inject subcutaneously NovoLog per scale up to 3 times per day before meals. Max daily dose 30 units. 100-150 4 unit; 151-200 5 units; 201-250 6 units; 251-300 7 units; 301-350 8 units; > 351 9 units, # 15... Start Date: 11/24/22 Status: Ordered Uyu-[id number]-wzkbr medical-grade [place] diabetic shoes, depth or hightop Uhp-ufg-zcaas medical-grade [place] diabetic shoes, depth or hightop, [...] Status: Ordered oxyCODONE 5 mg oral tablet TOME GAGE O DOS TABLETAS POR V A ORAL CADA SEIS HORAS CUANDO SEA NECESARIO PARA EL DOLOR Start Date: 11/24/22 Status: Ordered Pen [place], 32 G x 4 mm BD Ultra Fine III See Instructions, # 400 each, Refills 4, Tot. Refills 4, Maintenance, Use as directed to inject insulin 4 times per day. E11.9, 11/24/22 16:02:00 EDT, Compound, 158, cm, 11/24/22 8:48:00 EDT, Height,76, kg, 05/07/22 6:04:00 EST, Dry Weight Start Date: 11/24/22 Status: Ordered PLEASE DO NOT ERASE ANY [...] 527 Gm,11 Refills, Maintenance, 03/09/22 11:39:00 EST, [facility] #[id number], 17- 34 Gm By Mouth Daily,PRN:asneeded for constipation,Instr:(dissolve in water or... Start Date: 03/09/22 Status: Ordered pravastatin 10 mg oral tablet TOME GAGE TABLETA TODOS LOS D Start Date: 11/24/22 Status: Ordered Pull ups Pull ups, See Instructions, # 120 each, Refills 11, Tot. Refills 11, Maintenance, Wear daily duringday and night. Change 4 times a day prn Dx mixed urinary incontinence ICD10 N39.46 Height 159 cm, weight 82 kg Length of need: 99 Size- la... Start Date: 04/28/21 Status: Ordered Senna-Time 8.6 mg oral tablet [...] pairs, ... Start Date: 07/21/21 Status: Ordered Skin Tac Wipe (Adhesive Barrier Wipe) Skin Tac Wipe (Adhesive Barrier Wipe), See Instructions, # 50 each, Refills 2, Tot. Refills 2, Maintenance, Use 1 wipe every 14 days with sensor change. Clean and dry skin, then wipe with Skin Tac and let dry. Once dry apply sensor., 11/24/22 9:56:00... Start Date: 11/24/22 Status: Ordered TENS electrode pads TENS electrode pads, See Instructions, # 1 each, Refills 5, Tot. Refills 5, Maintenance, use as directed for back pain Dx LBP M54.9 1 box of 4, 08/27/21 14:17:00 EDT, Compound Start Date: 08/27/21 Status: Ordered Tradjenta 5 mg oral tablet 1 tablet = 5 mg, By Mouth, Daily, # 30 tablet, 4 Refills, Maintenance, 11/24/22 9:55:00 EDT, Tablet, [id number], Partial fill upon patient request if the prescription is for a schedule II opioid drug., 158, cm, 11/24/22 8:48:00 EDT, Height, 76... Start Date: 11/24/22 Status: Ordered Trelegy Ellipta inhalation powder TOME GAGE INHALACI N POR V A ORAL TODOS LOS D Start Date: 11/24/22 Status: Ordered Tresiba FlexTouch 200 units/mL subcutaneous solution See Instructions, INJECT SUBCUTANEOUSLY 30 UNITS DAILY. E11.9, # 21 mL, 3 Refills, 11/24/22 16:02:00 EDT, [id number], 158, cm, 11/24/22 8:48:00 EDT, Height, 76, kg, 05/07/22 6:04:00 EST, Dry Weight Start Date: 11/24/22 Status: Ordered Ventolin HFA 108 mcg/inh inhalation [...] Date: 03/09/22 Stop Date: 06/01/22 Status: Ordered [place] Reusable Bed Pad 34 x 36 [place] Reusable Bed Pad 34 x 36 , [...] Confirmed 12/29/11 Active Hepatitis C Confirmed Active [facility] current use of opiate analgesic-LBP 12 Confirmed [...] Osteopenia 18, 19, 20 Confirmed 11/16/12 Active *[id number] [place] Karine More Confirmed Active Peripheral venous insufficiency [...] 2 peroneal veins diagnosed on Dec 20 [facility] 6insulin dependent 7Per ECHO 05/24/1718 Grade I, [...] 1 11left mild sensorineural hearing loss by [facility] Hearing Evaluation on 12/29/11 12Narcotic contract [...] lower parathyroidectomy. 06/16/08 SURGEON: Danny Marie M.D. PRODUCTION HAND: Naima Bowling M.D. 22b/l submassive PE diagnosed on Dec 20 in [facility] 23TTE 12/22/15 in [facility]: RV dilatation, RVSP 46 24Per ECHO 05/24/17 Trace mitral regurgitation , trace TC regurgitation w no significant valve pathology 25meg colo July 2009 exc for 2 hyperplastic polyps 26Colonoscopy 2004 at [facility] [place] per letter of Dr Amor Dobbins Social History Social History Type Response Smoking Status Never (less than 100 in lifetime) entered on: 10/22/20 Sex Patient Care team information Care Team Personnel Name: Massimo Figueroa Position: [facility] Outreach Member Role: PCP Address: Address: [address] [place] [address] Name: Diamond Weiss RN Position: [facility] RN Member Role: Primary Care Nurse Name: Tiara Cavazos RN Position: [facility] OB RN Member Role: Primary Care Nurse Name: Shreya Boss RN Position: [facility] RN Member Role: Primary Care Nurse Name: Virginia Benson RN Position: [facility] SN RN Member Role: Primary Care Nurse Name: Jaylin Hernandez RN Position: [facility] Onco RN Member Role: Primary Care Nurse Name: Glen Cota MD Position: [facility] Renal MD Member Role: Lifetime Consulting Physician Address: Address: [address] [place] [address] [facility] [place] [address]- Care Team Related Persons Name: JOSE ELIAS TODD Address: [place] [address] Name: JOSE ELIAS KIRKLAND Address: home [address] [place] [id number] Name: LEONIE SCHRADER Address: [place] [address]
--- OUTSIDE RECORDS SUMMARY | 2023-10-23 09:35 | XMS_ITS | Continuity of Care Document ---
Author Organization [facility] Address [address] [place] [address]- Care Team Providers Care Transmission Systems Operator Name Role Phone Gayathri GARZA, Florinda Primary Care Physician [facility] Date(s): 04/29/21 - 05/29/21 [facility] [address] [place], [place] [address] All[facility]ies, Adverse Reactions, Alerts Substance Reaction Severity Status penicillin RASH Active morphine itchy Active Bactrim 1 hyperkalemia Active Lidocaine, Topical Active 1Hyperkalemia when used together with lisinopril Immunizations Given and Recorded Vaccine Date Status Refusal Reason influenza virus vaccine, inactivated 03/09/21 Give n [...] virus vaccine, inactivated 6 05/06/04 Gi [facility] SARS-CoV-2 (COVID-19) mRNA BNT-162b2 vac 7 06/11/20 [...] given by ELLIOTT HEWITT. 4Admin Note: MELISSA CHIU RN 5Admin Note: administered by melissa cihu 6Admin Note: ADMINISTERED BY R.NLizbet 7Result Comment: [...] or fever, (not to exceed 2000 mg/day) english, # 100 tablet, 11 Refills, Maintenance, 04/28/21 13:24:00 EST, [facility]/pharmacy #[id number], 160, cm, 04/28/21 9:50:00 EST, Height, 80.6, kg, 02... Start Date: 04/28/21 Status: Ordered ALCOHOL 70% PREP PADS ALCOHOL 70% PREP PADS, See Instructions, # 100 Unknown, 11 Refills, USE TO CHECK BLOOD SUGAR, UP TO5 TIMES DAILY. E11.65, 160, cm, 01/28/21 13:05:00 EDT, Height, 80.6, [...] Dry Weight Start Date: 01/27/20 Status: Ordered Baqsimi Two Pack 3 mg nasal powder = 3 mg, Naris, Right, Once, Please use for a low blood sugar emergency, may repeat in 15 minutes, #2 each, 3 Refills, Soft Stop, 06/26/20 7:30:00 EDT, [id number], Partial fill upon patient request if the prescription is for a schedule II op... Start Date: 06/26/20 Status: Ordered Boost Glucose Control Boost Glucose Control, 1 can, By Mouth, 3 times a day, # 90 each, Refills 11, Tot. Refills 11, Maintenance, indication: malnutrition E46, DM type 2 E11.9, 04/28/21 14:32:00 EST, Supply Start Date: 04/28/21 Stop Date: 04/23/22 Status: Ordered capsaicin 0.025% topical cream 1 application, Topically, 3 times a day, # 90 Gm, 11 Refills, Maintenance, 02/10/20 11:22:00 EST, Cream, [id number], 1 application Topically 3 times a day, 167, cm, 01/13/20 8:54:00 EDT, Height, 78.8, kg, 01/01/20 3:41:00 EDT, Dry Weight Start Date: 02/10/20 Status: Ordered Compression- Lower Extremity (Knee High) See Instructions, # 2 each, Refills 11, Tot. Refills 11, Maintenance, use daily; closed toes; 10-20mmHg. Dx peripheral vascular insufficiency I 87.2, 04/17/19 9:22:00 EST, Compound Start Date: 04/17/19 Status: Ordered [facility] GLUCOSE 4 GRAM TABLET CHEW [facility] GLUCOSE 4 GRAM TABLET CHEW, See Instructions, # 100 tablet, 11 Refills, TAKE 1 TABLET BY MOUTH NEEDED FOR LOW BLOOD SUGAR BELOW 70, 160, cm, 03/03/21 11:23:00 EST, Height, 80.6, kg, 06/03/20 19:00:00 EST, Dry Weight Start Date: 04/01/21 Status: Ordered Eliquis 5 mg oral tablet 1 tablet = 5 mg, By Mouth, 2 times a day, # 60 tablet, 11 Refills, Maintenance, 04/21/21 18:12:00 EST, Tablet, [facility]/pharmacy #[id number], 160, cm, 03/03/21 11:23:00 EST, Height, 80.6, kg, 06/03/20 19:00:00 EST, Dry Weight Start Date: 04/21/21 Status: Ordered escitalopram 20 mg oral tablet 1 tablet = 20 mg, By Mouth, Daily, Discontinue duloxetine 60 mg, # 30 tablet, 11 Refills, Maintenance, 12/09/20 11:15:00 EDT, Tablet, [facility]/pharmacy #[id number], Partial fill upon patient request if the prescription is for a schedule II opioid drug., 160, cm,... Start Date: 12/09/20 Status: Ordered famotidine 40 mg oral tablet 1 tablet = 40 mg, By Mouth, Daily at bedtime, If 40 mg tablet is not available, can be changed to 20 mg tablet 2 tablet at bedtime, # 90 tablet, 3 Refills, Maintenance, 06/30/20 14:55:00 EDT, Tablet,[facility]/pharmacy #1026, Discontinue 30- day supply presc... Start Date: 06/30/20 Stop Date: 06/25/21 Status: Ordered FREESTYLE LITE TEST STRIP FREESTYLE LITE TEST STRIP, See Instructions, # 150 Unknown, 11 Refills, CHECK UP TO 5 TIMES DAILY. E11.65, 160, cm, 01/28/21 13:05:00 EDT, Height, 80.6, kg, 06/03/20 19:00:00 EST, Dry Weight Start Date: 02/02/21 Status: Ordered Freestyle Lite Test Strips See Instructions, # 150 each, Refills 11, Tot. Refills 11, Maintenance, Check up to 5 times daily. E11.65, 03/13/20 11:16:00 EST, Compound, 167, cm, 01/13/20 8:54:00 EDT, Height, 78.8, kg, 01/01/20 3:41:00 EDT, Dry Weight Start Date: 03/13/20 Stop Date: 03/08/21 Status: Ordered furosemide 20 mg oral tablet 10 mg, 0.5, tablet, By Mouth, Daily, PRN, # 30 tablet, Refills 5, Tot. Refills 5, Maintenance, leg swelling, 04/28/21 14:34:00 EST, Route to Pharmacy Electronically, [facility]/pharmacy #[id number], Can use with HCTZ, 160, cm, 04/28/21 9:50:00 EST, Height, 80.6,... Start Date: 04/28/21 Stop Date: 10/25/21 Status: Ordered Glucose Tablets See Instructions, # 100 tablet, Refills 5, Tot. Refills 5, Maintenance, 1 tablet By Mouth prn low bs bellow 70, 01/22/20 9:32:00 EDT, Compound, 167, cm, 01/13/20 8:54:00 EDT, Height, 78.8, kg, 01/01/20 3:41:00 EDT, Dry Weight Start Date: 01/22/20 Status: Ordered hydroCHLOROthiazide 12.5 mg oral capsule 1 capsule = 12.5 mg, By Mouth, Daily, discontinure amlodipine, # 90 capsule, 3 Refills, Maintenance, 10/22/20 10:35:00 EDT, [id number], 160, cm, 10/22/20 9:15:00 EDT, Height, 80.6, kg, 06/03/20 19:00:00 EST, Dry Weight Start Date: 10/22/20 Stop Date: 10/17/21 Status: Ordered ketotifen 0.025% ophthalmic solution 1 [...] 04/28/21 19:12... Start Date: 04/28/21 Status: Ordered Nexium 40 mg oral enteric coated capsule 1 capsule = 40 mg, By Mouth, Daily, 30 minutes before breakfast, # 30 capsule, 11 Refills, Maintenance, 04/28/21 14:00:00 EST, [id number], Discontinue pantoprazole, 160, cm, 04/28/21 9:50:00 EST, Height, 80.6, kg, 06/03/20 19:00:00 EST, Dry We... Start Date: 04/28/21 Stop Date: 04/23/22 Status: Ordered NovoLOG FlexPen 100 units/mL subcutaneous solution See Instructions, Inject up to 26 untis via Insulin sliding scale 3x a day w/meals,MAX daily dose 78 units, E11.65, # 45 mL, 6 Refills, Maintenance, 01/21/20 14:30:00 EDT, [facility], 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 Start Date: 01/21/20 Status: Ordered Wlv-zwo-tgnjm medical-grade oxford diabetic shoes, depth or hightop Byg-szn-brlsh medical-grade oxford diabetic shoes, depth or hightop, [...] days, PRN pain dispense not earlier than 05/17/21 Please dispense MyOtherDrive brand (K18) If oxycodone 5 mg tablet is not available, it can be switched to oxycodone 10 mg 0.5 tablets 4 hours x28 days fo... Start Date: 05/17/21 Stop Date: 06/14/21 Status: Ordered oxyCODONE 5 mg oral tablet 5 mg, 1, tablet, By Mouth, Every 4 hours, for 28 days, PRN pain dispense not earlier than 06/14/21 Please dispense KVTek brand (K18) If oxycodone 5 mg tablet is not available, it can be switched to oxycodone 10 mg 0.5 tablets 4 hours x28 days fo... Start Date: 06/14/21 Stop Date: 07/12/21 Status: Ordered oxyCODONE 5 mg oral tablet 5 mg, 1, tablet, By Mouth, Every 4 hours, for 28 days, PRN pain dispense not earlier than 07/12/21 Please dispense KVTek brand (K18) If oxycodone 5 mg tablet is not available, it can be switched to oxycodone 10 mg 0.5 tablets 4 hours x28 days fo... Start Date: 07/12/21 Stop Date: 08/09/21 Status: Ordered Pen [place], 32 G x 4 mm BD Ultra Fine III See Instructions, # 360 each, Refills 3, Tot. Refills 3, Maintenance, Use as directed for insulin use 4 times a day DX IDDM; 90 days, 02/01/21 10:40:00 EDT, Compound, 160, cm, 01/28/21 13:05:00 EDT, Height, 80.6, kg, 06/03/20 19:00:00 EST, D... Start Date: 02/01/21 Status: Ordered Plavix 75 mg oral tablet 75 mg, 1, tablet, By Mouth, Daily, Stop if there is any bleeding. Stop 5 to 7 days before any invasive procedures, # 30 tablet, Refills 11, Tot. Refills 11, Maintenance, 04/28/21 14:02:00 EST, Route to Pharmacy Electronically, [facility]/pharmacy #[id number], 160... Start Date: 04/28/21 Stop Date: 04/23/22 Status: Ordered PLEASE DO NOT ERASE ANY [...] 527 Gm,11 Refills, Maintenance, 01/27/20 19:13:00 EDT, [facility]/pharmacy #1026, 17- 34 Gm By Mouth Daily,PRN:asneeded for constipation,Instr:(dissolve in water or... Start Date: 01/27/20 Status: Ordered Pull ups Pull ups, See Instructions, # 120 each, Refills 11, Tot. Refills 11, Maintenance, Wear daily duringday and night. Change 4 times a day prn Dx mixed urinary incontinence ICD10 N39.46 Height 159 cm, weight 82 kg Length of need: 99 Size- la... Start Date: 04/28/21 Status: Ordered rosuvastatin 40 mg oral tablet 1 tablet = 40 mg, By Mouth, Daily, Discontinue rosuvastatin 10 mg, # 30 tablet, 11 Refills, Maintenance, 04/28/21 14:03:00 EST, Tablet, [facility]/pharmacy #1026, 160, cm, 04/28/21 9:50:00 EST, Height, 80.6, kg, 06/03/20 19:00:00 EST, Dry Weight Start Date: 04/28/21 Status: Ordered Senna-Time 8.6 mg oral tablet 2 tablet, By Mouth, 2 times a day, PRN NEEDED FOR CONSTIPATION,INSTR, DISCONTINUE DOCUSATE, # 60tablet, 11 Refills, [facility]ORE [id number], 160, cm, 03/03/21 11:23:00 EST, Height, 80.6, kg, 06/03/20 19:00:00 EST, Dry Weight Start Date: 04/05/21 Status: Ordered Shoes insert, molded to foot [...] or allergies symptoms., # 30 tablet, Refills 11, Tot. Refills 11, Maintenance, 02/22/21 17:50:00 EST, Route to Pharmacy Electronically, [facility]/pharmacy #1026, 1... Start Date: 02/22/21 Status: Ordered TENS electrode pads TENS electrode pads, See Instructions, # 1 box, Refills 5, Tot. Refills 5, Maintenance, use as directed for back pain Dx LBP M54.9 1 box of 4, 12/06/16 14:59:01, Compound Start Date: 12/06/16 Status: Ordered tiZANidine 2 mg oral tablet 2 mg, 1, tablet, By Mouth, Every 8 hours, as needed for muscle spasm, # 42 tablet, Refills 2, Tot. Refills 2, Maintenance, 02/15/21 11:39:00 EST, Route to Pharmacy Electronically, [facility]/pharmacy #[id number],Partial fill upon patient request if the prescrip... Start Date: 02/15/21 Stop Date: 03/29/21 Status: Ordered Trelegy Ellipta inhalation powder 1 puffs, Inhalation, Daily, at the same time every day given by bus driver , Dr Berkowitz, # 60 each, 0 Refills, Maintenance, 11/20/19 13:03:00 EDT, Powder Start Date: 11/20/19 Status: Ordered Tresiba FlexTouch 200 units/mL subcutaneous solution See Instructions, Inject 55 units daily at 9pm, E11.65. titrate accordingly, # 45 mL, 6 Refills, Maintenance, 01/21/20 14:30:00 EDT, [facility]/pharmacy #1026, 167, cm, 01/13/20 8:54:00 EDT, Height, 78.8, kg, 01/01/20 3:41:00 EDT, Dry Weight Start Date: 01/21/20 Status: Ordered Ventolin HFA 108 mcg/inh inhalation aerosol with adapter 2 puffs, Inhalation, 4 times a day, PRN Wheezing/Shortness of Breath, dispense when patient requestit, # 18 Gm, 5 Refills, Maintenance, 11/09/20 12:36:00 EDT, [facility]/pharmacy #1026, 160, cm, 10/22/20 9:15:00 EDT, Height, 80.6, kg, 06/03/20 19:00:00 EST,... Start Date: 11/09/20 Status: Ordered Voltaren 1% topical gel = 2 Gm, Topically, 4 times a day, # 100 Gm, 5 Refills, Maintenance, 02/15/21 11:40:00 EST, [facility]/pharmacy #1026, 2 Gm Topically 4 times a day,x14 days, 160, cm, 02/15/21 8:47:00 EST, Height, 80.6, kg, 06/03/20 19:00:00 EST, Dry Weight Start Date: 02/15/21 Stop Date: 05/10/21 Status: Ordered [place] Reusable Bed Pad 34 x 36 [place] Reusable Bed Pad 34 x 36 , [...] EST, Compound Start Date: 04/28/21 Status: Ordered Xyzal 5 mg oral tablet 1 tablet = 5 mg, By Mouth, Daily in PM, disontinue loratadine, # 30 tablet, 11 Refills, Maintenance, 10/22/20 10:19:00 EDT, Tablet, [facility]/pharmacy #1026, Partial fill upon patient request if the prescription is for a schedule II opioid drug., 1 tablet B... Start Date: 10/22/20 Status: Ordered Zofran 4 mg oral tablet 1 tablet = 4 mg, By Mouth, Every 8 hours, PRN Nausea & Vomiting, # 15 tablet, 1 Refills, Maintenance, 04/28/21 13:23:00 EST, Tablet, [facility]/pharmacy #1026, Partial fill upon patient request if the prescription is for a schedule II opioid drug., 160, cm,... 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) Active Memory impairment(Confirmed) Active Mitral regurgitation(Confirmed) 14 05/24/17 Active Nephrolithiasis(Confirmed) 15, 16, 17 06/11/02 Active Obese class I(Confirmed) Active Obesity(Confirmed) Active JENNIFER (obstructive sleep apnea)(Confirmed) Active Osteopenia(Confirmed) 18, 19 11/16/12 Active *[id number] Care Partn igor More(Confirmed) Active Peripheral venous insufficiency(Confirmed) [...] Calcium oxalate crystals in urine(Confirmed) 01/22/14 Active Dementia, vascular(Confirmed) Active 1Colonoscopy July 2014: hyperplastic polyp and [...] 2 peroneal veins diagnosed on Dec 20 [facility] 6insulin dependent 7Per ECHO 05/24/1718 Grade I, [...] by [facility] Hearing Evaluation on 12/29/11 12Narcotic contract w 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 DIAGNOSIS: Right ureterolithiasis. [...] lower parathyroidectomy. 06/16/08 SURGEON: Danny Marie M.D. MANAGER ART: Naima Bowling M.D. 21b/l submassive PE diagnosed on Dec 20 in [facility] 22TTE 12/22/15 in [facility]: RV dilatation, RVSP 46 23Per ECHO 05/24/17 Trace mitral regurgitation , trace TC regurgitation w no significant valve pathology 24meg colo July 2009 exc for 2 hyperplastic polyps 25Colonoscopy 2004 at [facility] [place] per letter of Dr Amor Dobbins Social History Social History Type Response Smoking Status Never (less than 100 in lifetime) entered on: 10/22/20 Sex
--- OUTSIDE RECORDS SUMMARY | 2023-10-23 09:35 | XMS_ITS | Continuity of Care Document ---
Author Organization [facility] Address [address] [place] [address]- Care Team Providers Care Director Of Retail Analytics Name Role Phone Gayathri GARZA, Florinda Primary Care Physician [facility] Date[facility]s): 06/17/22 - 07/17/22 [facility] [address]- [place] Allergies, Adverse Reactions, Alerts Substance Reaction Severity Status enalapril Active penicillin RASH Active morphine itchy Active Bactrim 1 hyperkalemia Active Lidocaine, Topical Active 1Hyperkalemia when used together with lisinopril Immunizations Given and Recorded Vaccine Date Status Refusal Reason [id number] 12y+ bivalent booster vax 05/25/22 Given influenza [...] zoster vaccine, inactivated 09/15/21 Given SARS-CoV-2 mRNA ([id number]) vax 09/15/21 Given SARS-CoV-2 (COVID-19) mRNA BNT-162b2 [...] Refills, Maintenance, 05/25/22 12:08:00 EST, ER Tablet, [facility]/pharmacy #0838, Discontinue Motrin, 158, cm, 05/25/22 [...] Gm, 11 Refills, Maintenance, 07/21/21 12:43:00 EDT, [facility]/pharmacy #1026, 1 applicator Topically 2 times a day, 160, cm, 07/21/21 10:22:00 EDT, Height, 80.6, kg, 06/03/20 19:00:00 EST, Dry Weight Start Date: 07/21/21 Status: Ordered Baqsimi Two Pack 3 mg nasal powder = 3 mg, Naris, Right, Once, Please use for a low blood sugar emergency, may repeat in 15 minutes, #1 each, 3 Refills, Soft Stop, 03/09/22 11:35:00 EST, [facility]/pharmacy #0838, 160, cm, 03/09/22 10:43:00EST, Height, 78, kg, 01/14/22 19:37:00 EDT, Dry W... Start Date: 03/09/22 Status: Ordered Biotene Moisturizing Mouth oral spray See Instructions, [place] directly into mouth; spray is safe to swallow as needed for dry mouth, # 45mL, 11 Refills, Maintenance, 05/25/22 12:42:00 EST, [facility]/pharmacy #0838, Partial fill upon patient request [...] needed for anxiety and 1tab at HS fzpqmy-ogh-hamal, # 60 tablet, 11 Refills, Maintenance, 09/15/21 9:02:00 EDT, [facility]/pharmacy #1026, Partial fill upon patient request... Start Date: 09/15/21 Status: Ordered capsaicin 0.025% topical cream 1 application, Topically, 3 times a day, # 35 Gm, 11 Refills, Maintenance, 07/21/21 12:26:00 EDT, Cream, [facility]/pharmacy #1026, 1 application Topically 3 times [...] 11 Refills, Maintenance, 12/06/21 15:04:00 EDT, Tablet, [facility], Partial fill upon patient request [...] tablet, 3 Refills, Maintenance, 07/12/21 18:53:00 EDT, Tablet,[facility]/pharmacy #1026, Discontinue 30- day supply presc... Start Date: 07/12/21 Stop Date: 07/07/22 Status: Ordered ferrous sulfate 325 mg oral tablet 1 tablet = 325 mg, By Mouth, Daily, May take with food to minimize abdominal discomfort. Do not take with milk. Take preferrably with juice., # 90 tablet, 3 Refills, Maintenance, 09/15/21 8:56:00 EDT, [facility]/pharmacy #1026, 160, cm, 09/15/21 8:15:00 EDT,... [...] tablet, 0 Refills, Maintenance, 07/08/22 9:47:00 EDT, [facility] 14[facility], 158, cm, 06/16/22 11:27:00 EST, Height, 76, kg, 05/07/22 6:04:00 EST, Dry Weight Start Date: 07/08/22 Status: Ordered ketotifen 0.025% ophthalmic solution 1 drops, Eyes, Both, Every 12 hours, PRN as needed for eye allergy, # 7.5 mL, 11 Refills, Maintenance, 06/25/21 8:34:00 EDT, [facility]/pharmacy #1026, 1 drops Eyes, Both Every [...] 90 tablet, 3 Refills, 03/09/22 11:57:00 EST, [facility]/pharmacy #0838, 1 tablet By Mouth Daily before dinner,PRN:allergies, 160, cm, 03/09/22 10:43:00 EST, Height, 78, kg, 01/14/22 19:37:00 ED... Start Date: 03/09/22 Status: Ordered montelukast 10 mg oral tablet 10 mg, 1, tablet, By Mouth, Daily at bedtime, # 90 tablet, Refills 3, Tot. Refills 3, Maintenance, 03/09/22 11:37:00 EST, Route to Pharmacy Electronically, [facility]/pharmacy #0838, 160, cm, 03/09/22 10:43:00 EST, Height, 78, kg, 01/14/22 19:37:00 EDT, Dry... Start Date: 03/09/22 Stop Date: 03/04/23 Status: Ordered Nexium 40 mg oral enteric coated capsule 1 capsule = 40 mg, By Mouth, Daily, 30 minutes before breakfast, # 30 capsule, 2 Refills, Maintenance, 05/02/22 15:39:00 EST, [facility]/pharmacy #0838, Discontinue pantoprazole, 160, cm, 04/19/22 9:55:00 EST, Height, 76, kg, 04/12/22 16:37:00 EST, Dry Weight Start Date: 05/02/22 Stop Date: 07/31/22 Status: Ordered Norvasc 5 mg oral tablet 5 mg, 1, tablet, By Mouth, Daily, # 90 tablet, Refills 3, Tot. Refills 3, Maintenance, 03/09/22 11:54:00 EST, Route to Pharmacy Electronically, [facility]/pharmacy #0838, 160, cm, 03/09/22 10:43:00 EST, [...] 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 Start Date: 03/09/22 Status: Ordered Zuw-wqj-bkvrj medical-grade oxford diabetic shoes, depth or hightop Sud-dog-lwomo medical-grade oxford diabetic shoes, depth or hightop, [...] 08/19/22 Stop Date: 09/16/22 Status: Ordered Pen [place], 32 G x 4 mm BD Ultra [...] the same time every day Given by Refractory Bricklayer, Dr. Michael Berkowitz, # 60 each, 0 [...] Date: 03/09/22 Stop Date: 06/01/22 Status: Ordered [place] Reusable Bed Pad 34 x 36 [place] Reusable Bed Pad 34 x 36 , [...] Confirmed 12/29/11 Active Hepatitis C Confirmed Active [facility] current use of opiate analgesic-LBP 12 Confirmed [...] Osteopenia 18, 19, 20 Confirmed 11/16/12 Active *[id number] Social Work Faculty Member Karine More Confirmed Active Peripheral venous insufficiency [...] 2 peroneal veins diagnosed on Dec 20 [facility] 6insulin dependent 7Per ECHO 05/24/1718 Grade [...] 1 11left mild sensorineural hearing loss by [facility] Hearing Evaluation on 12/29/11 12Narcotic contract [...] lower parathyroidectomy. 06/16/08 SURGEON: Danny Marie M.D. ROPE WALKER: Naima Bowling M.D. 22b/l submassive PE diagnosed on Dec 20 in [facility] 23TTE 12/22/15 in [facility]: RV dilatation, RVSP 46 24Per ECHO 05/24/17 Trace mitral regurgitation , trace TC regurgitation w no significant valve pathology 25meg colo July 2009 exc for 2 hyperplastic polyps 26Colonoscopy 2004 at [facility] [place] per letter of Dr Amor Dobbins Social History Social History Type Response Smoking Status Never (less than 100 in lifetime) entered on: 10/22/20 Sex Patient Care team information Care Team Personnel Name: Diamond Weiss RN Position: [facility] RN Member Role: Primary Care Nurse Name: Tiara Cavazos RN Position: [facility] OB RN Member Role: Primary Care Nurse Name: Shreya Boss RN Position: [facility] RN Member Role: Primary Care Nurse Name: Jaylin Hernandez RN Position: [facility] Onco RN Member Role: Primary Care Nurse Name: Glen Cota MD Position: [facility] Renal MD Member Role: Lifetime Consulting Physician Address: Address: [address] [place] [address] [facility] [place] [address]- Name: Florinda Trinh MD Position: [facility] Primary Care Physician Member Role: PCP Address: Address: [address] [place] [id number]- Care Team Related Persons Name: JOSE ELIAS TODD Address: [place] [address] Name: JOSE ELIAS KIRKLAND Address: home [address] [place] [id number] Name: LEONIE SCHRADER Address: [place] [address]
--- OUTSIDE RECORDS SUMMARY | 2023-10-23 09:35 | XMS_ITS | Continuity of Care Document ---
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 Name Role Phone Gayathri GARZA, Florinda Primary Care Physician Encounter [facility] ACCT R [id number] Date(s): 03/09/21 - 04/08/21 [facility] Attending Physician: Admtr, Yaya Allergies, Adverse Reactions, Alerts Substance Reaction Severity Status penicillin RASH Active morphine itchy Active Lidocaine, Topical Active Bactrim 1 hyperkalemia Active 1Hyperkalemia when [...] CHIU RN 5Admin Note: administered by melissa chiu 6Admin Note: ADMINISTERED BY RYoana 7Result Comment: Masood RUVALCABA RN 8Result Comment: [...] or fever, (not to exceed 2000 mg/day) romanian, # 100 tablet, 11 Refills, Maintenance, 08/14/20 10:13:00 EDT, [facility]/pharmacy #[id number], 160, cm, 08/14/20 9:34:00 EDT, Height, 80.6, kg, 02... Start Date: 08/14/20 Status: Ordered ALCOHOL 70% PREP PADS ALCOHOL [...] II op... Start Date: 06/26/20 Status: Ordered capsaicin 0.025% topical cream 1 application, Topically, 3 times a day, # 90 Gm, 11 Refills, Maintenance, 02/10/20 11:22:00 EST, Cream, [id number], 1 application Topically 3 times a day, 167, cm, 01/13/20 8:54:00 EDT, Height, 78.8, kg, 01/01/20 3:41:00 EDT, Dry Weight Start Date: 02/10/20 Status: Ordered clotrimazole 1% vaginal cream with applicator 1 application, Vaginally, Daily at bedtime, for 7 nights If 1% is not available, change to clotrimazole 2% cream vaginal hs x 3 nights, # 45 Gm, 0 Refills, Maintenance, 10/22/20 10:12:00 EDT, [id number], Partial fill upon patient reque... Start Date: 10/22/20 Status: Ordered Compression- Lower Extremity (Knee High) [...] home. D... Start Date: 07/19/17 Status: Ordered [facility] GLUCOSE 4 GRAM TABLET [...] day, # 60 tablet, 11 Refills, Maintenance, 01/18/21 18:00:00 EDT, Tablet, [facility]/pharmacy #[id number], 160, cm, 10/22/20 9:15:00 EDT, Height, 80.6, kg, 06/03/20 19:00:00 EST, Dry Weight Start Date: 01/18/21 Status: Ordered escitalopram 20 mg oral tablet 1 tablet = 20 mg, By Mouth, Daily, Discontinue duloxetine 60 mg, # 30 tablet, 11 Refills, Maintenance, 12/09/20 11:15:00 EDT, Tablet, [facility]/pharmacy #[id number], Partial fill upon patient request if [...] 3 Refills, Maintenance, 06/30/20 14:55:00 EDT, Tablet,[facility]/pharmacy #[id number], Discontinue 30- day supply presc... Start [...] Date: 03/13/20 Stop Date: 03/08/21 Status: Ordered Full fingered Arthritis Compression Glove Full fingered Arthritis Compression Glove, See Instructions, # 2 each, Refills 0, Tot. 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 Refills 11, Maintenance, Increase dose indication: malnutrition E46, DM type 2 E11.9, 09/10/20 10:13:00 EDT, Compound Start Date: 09/10/20 Stop Date: 09/05/21 Status: Ordered Glucose Tablets See Instructions, # [...] 02/10/20 11:23... Start Date: 02/10/20 Status: Ordered NovoLOG FlexPen 100 units/mL subcutaneous solution See Instructions, Inject up to 26 untis via Insulin sliding scale 3x a day w/meals,MAX daily dose 78 units, E11.65, # 45 mL, 6 Refills, Maintenance, 01/21/20 14:30:00 EDT, [id number], 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 Start Date: 01/21/20 Status: Ordered Gcl-trv-rwgtr medical-grade oxford diabetic shoes, depth or hightop Ykh-qdi-lnvto medical-grade oxford diabetic shoes, depth or hightop, [...] days, PRN pain dispense not earlier than 03/22/21 If oxycodone 5 mg tablet is not available, it can be switched to oxycodone 10 mg 0.5 tablets 4 cuitod60 days for 84 tablets, # 168 tablet, Refills 0,... Start Date: 03/22/21 Stop Date: 04/19/21 Status: Ordered oxyCODONE 5 mg oral tablet 5 mg, 1, tablet, By Mouth, Every 4 hours, for 28 days, PRN pain dispense not earlier than 04/19/21 If oxycodone 5 mg tablet is not available, it can be switched to oxycodone 10 mg 0.5 tablets 4 hours x28 days for 84 tablets, # 168 tablet, Refills 0,... Start Date: 04/19/21 Stop Date: 05/17/21 Status: Ordered Pen [place], 32 G x 4 mm BD Ultra [...] Gm,11 Refills, Maintenance, 01/27/20 19:13:00 EDT, [facility]/pharmacy #[id number], 17- 34 Gm By Mouth Daily,PRN:asneeded for constipation,Instr:(dissolve in water or... Start Date: 01/27/20 Status: Ordered Protonix 40 mg oral delayed release tablet 1 tablet = 40 mg, By Mouth, Daily, Take 30 minutes before dinner, # 30 tablet, 11 Refills, Maintenance, 07/27/20 14:45:00 EDT, 160, cm, 06/12/20 9:01:00 EST, Height, 80.6, kg, 06/03/20 19:00:00 EST, Dry Weight Start Date: 07/27/20 Status: Ordered Pull ups Pull ups, See Instructions, # 120 each, Refills 11, Tot. Refills 11, Maintenance, Wear daily duringday and night. Change 4 times a day prn . Dx stress urinary incontinence ICD10 N39.3 Height 159 cm,weight 82 kg Length of need: 99 Size- l... Start Date: 04/29/20 Status: Ordered rosuvastatin 10 mg oral tablet See Instructions, [facility], # 30 tablet, 5 Refills, Maintenance, [id number], 160, cm, 10/22/20 9:15:00 EDT, Height, 80.6, kg, 06/03/20 19:00:00 EST, Dry Weight Start Date: 11/13/20 Status: Ordered Senna-Time 8.6 mg oral tablet 2 tablet, By Mouth, 2 times a day, PRN NEEDED FOR CONSTIPATION,INSTR, DISCONTINUE DOCUSATE, # 60tablet, 11 Refills, [id number], 160, cm, 03/03/21 11:23:00 EST, Height, 80.6, kg, 06/03/20 19:00:00 EST, Dry Weight Start Date: 04/05/21 Status: Ordered Shoes insert, molded to foot Shoes insert, molded to foot, See Instructions, # 3 pair, Refills 0, Tot. 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 Start Date: 09/19/18 Status: Ordered Singulair 10 mg oral tablet 10 mg, 1, tablet, By Mouth, Daily at bedtime, Take every night even if doesn't has any asthma or allergies symptoms., # 30 tablet, Refills 11, Tot. Refills 11, Maintenance, 02/22/21 17:50:00 EST, Route to Pharmacy Electronically, [facility]/pharmacy #[id number], 1... Start Date: 02/22/21 Status: Ordered [...] 11:39:00 EST, Route to Pharmacy Electronically, [facility]/pharmacy #[id number],Partial fill upon patient request if the prescrip... Start Date: 02/15/21 Stop Date: 03/29/21 Status: Ordered Trelegy Ellipta inhalation powder 1 puffs, Inhalation, Daily, at the same time every day given by video engineer , Dr Berkowitz, # 60 each, 0 Refills, Maintenance, 11/20/19 13:03:00 EDT, Powder Start Date: 11/20/19 Status: Ordered Tresiba FlexTouch 200 units/mL subcutaneous solution See Instructions, Inject 55 units daily at 9pm, E11.65. titrate accordingly, # 45 mL, 6 Refills, Maintenance, 01/21/20 14:30:00 EDT, [facility]/pharmacy #[id number], 167, cm, 01/13/20 8:54:00 EDT, Height, 78.8, kg, 01/01/20 3:41:00 EDT, Dry Weight Start Date: 01/21/20 Status: Ordered Ventolin HFA 108 mcg/inh inhalation aerosol with adapter 2 puffs, Inhalation, 4 times a day, PRN Wheezing/Shortness of Breath, dispense when patient requestit, # 18 Gm, 5 Refills, Maintenance, 11/09/20 12:36:00 EDT, [facility]/pharmacy #[id number], 160, cm, 10/22/20 9:15:00 EDT, Height, 80.6, kg, 06/03/20 19:00:00 EST,... Start Date: 11/09/20 Status: Ordered Voltaren 1% topical gel = 2 Gm, Topically, 4 times a day, # 100 Gm, 5 Refills, Maintenance, 02/15/21 11:40:00 EST, [id number], 2 Gm Topically 4 times a day,x14 days, 160, cm, 02/15/21 8:47:00 EST, Height, 80.6, kg, 06/03/20 19:00:00 EST, Dry Weight Start Date: 02/15/21 Stop Date: 05/10/21 Status: Ordered [place] Reusable Bed Pad 34 x 36 [place] Reusable Bed Pad 34 x 36 , See Instructions, # 1 each, Refills 11, Tot. Refills 11, Maintenance, Use daily at bedtime Dx mixed urinary incontinence ICD10 N39.46 Length of need: 99, 10/25/17 8:32:00 EDT, Compound Start Date: 10/25/17 Status: Ordered Xyzal 5 mg oral tablet 1 tablet = 5 mg, By Mouth, Daily in PM, disontinue loratadine, # 30 tablet, 11 Refills, Maintenance, 10/22/20 10:19:00 EDT, Tablet, [facility]/pharmacy #[id number], Partial fill upon patient request if the prescription is for a schedule II opioid drug., 1 tablet B... Start Date: 10/22/20 Status: Ordered Zofran 4 mg oral tablet 1 tablet = 4 mg, By Mouth, Every 8 hours, PRN Nausea & Vomiting, # 15 tablet, 1 Refills, Maintenance, 09/10/20 9:48:00 EDT, Tablet, [facility]/pharmacy #[id number], Partial fill upon patient request if the prescription is for a schedule II opioid drug., 160, cm, 0... Start Date: 09/10/20 Status: Ordered Problem List Condition Effective Dates [...] abnormal(Confirmed) 11 12/29/11 Active Hepatitis C(Confirmed) Active USP current use of opi ate analgesic-LBP(Confirmed) 12 [...] apnea)(Confirmed) Active Osteopenia(Confirmed) 18, 19 11/16/12 Active *[id number] [facility](Confirmed) Active Peripheral venous insufficiency(Confirmed) 10/31/11 Active Positive [...] 2 peroneal veins diagnosed on Dec 20 [facility] 6insulin dependent 7Per ECHO 05/24/1718 Grade I, [...] 1 11left mild sensorineural hearing loss by [facility] Hearing Evaluation on 12/29/11 12Narcotic [...] lower parathyroidectomy. 06/16/08 SURGEON: Danny Marie M.D. PRINTER SLOTTER OPERATOR: Naima Bowling M.D. 21b/l submassive PE diagnosed on Dec 20 in [facility] 22TTE 12/22/15 in [facility]: RV dilatation, RVSP 46 23Per ECHO 05/24/17 Trace mitral regurgitation , trace TC regurgitation w no significant valve pathology 24meg colo July 2009 exc for 2 hyperplastic polyps 25Colonoscopy 2004 at [facility] [place] per letter of Dr Amor Dobbins Social History Social History Type Response Smoking Status Never (less than 100 in lifetime) entered on: 10/22/20 Sex
--- OUTSIDE RECORDS SUMMARY | 2023-10-23 09:35 | XMS_ITS | Continuity of Care Document ---
Author Organization 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 [address] [place] [address]- [facility] Allergies, Adverse Reactions, Alerts Substance Reaction Severity [...] given by ELLIOTT HEWITT. 4Admin Note: MELISSA CHIU, HEIDY 5Admin Note: administered by melissa chiu 6Admin Note: ADMINISTERED BY Jason 7Result [...] or fever, (not to exceed 2000 mg/day) north korean, # 100 tablet, 5 Refills, Maintenance, 01/22/20 [...] day, # 280 Gm, 11 Refills, Maintenance, 01/16/19 8:53:24 EDT, 1 applicator Topically 2 times a day Start Date: 01/16/19 Status: Ordered Benadryl:Maalox:Xylocaine 1% 1:1:1 Benadryl:Maalox:Xylocaine 1% [...] mg, 2, mL, Neb, Daily, given by powder room attendant , Dr Berkowitz, # 120 mL, Refills 0, Maintenance,11/20/19 13:03:00 EDT, Suspension Start Date: 11/20/19 Status: Ordered calcium (as citrate)-vitamin D 315 mg-250 intl units oral tablet 2 tablet, By Mouth, 2 times a day, 90 days calcium citrate, # 360 tablet, 3 Refills, Maintenance, 01/16/19 8:55:35 EDT, Tablet, 2 tablet By Mouth 2 times a day,Instr:90 days; calcium citrate Start Date: 01/16/19 Status: Ordered capsaicin 0.025% topical cream 1 application, Topically, 3 times a day, # 90 Gm, 11 Refills, Maintenance, 09/25/19 11:21:00 EDT, Cream, [facility], 1 application Topically 3 times a day, 159, cm, 05/20/19 12:19:00 EST, Height, 88.1, kg, 04/25/19 16:02:00 EST, . Start Date: 09/25/19 Status: Ordered Compression- Lower [...] dose, # 30 capsule, 11 Refills, Maintenance, 03/27/19 9:10:00 EST, EC Capsule, [facility], 159, cm, 03/20/19 14:59:00 EST, Height, 88.3, kg, 12/13/18 10:17:00 EDT, Dry Weight Start Date: 03/27/19 Status: Ordered dexamethasone 6 mg oral tablet 1 tablet = 6 mg, By Mouth, Daily, # 3 tablet, 0 Refills, Maintenance, 01/07/20 12:02:00 EDT, Tablet, [facility], 167, cm, 01/06/20 8:40:00 EDT, Height, 78.8, kg, 01/01/20 3:41:00 EDT, Dry Weight Start Date: 01/07/20 Stop Date: 01/10/20 Status: Ordered docusate sodium 100 mg oral tablet 2 tablet = 200 mg, By Mouth, 2 times a day, # 120 tablet, 11 Refills, Maintenance, 09/25/19 11:07:00 EDT, [facility], 159, cm, 05/20/19 12:19:00 EST, Height, 88.1, kg, 04/25/19 16:02:00 EST, Dry Weight Start Date: 09/25/19 Status: Ordered Eliquis 5 mg oral tablet 1 tablet = 5 mg, By Mouth, 2 times a day, # 60 tablet, 11 Refills, Maintenance, 07/22/19 8:58:00 EDT, Tablet, [facility], 159, cm, 05/20/19 12:19:00 EST, Height, 88.1, kg, 04/25/19 16:02:00 EST, Dry Weight Start Date: 07/22/19 Status: Ordered famotidine 40 mg oral tablet 1 tablet = 40 mg, By Mouth, Daily at bedtime, If 40 mg tablet is not available, can change to 20 mgtablet 2 tablet at bedtime, # 30 tablet, 2 Refills, Maintenance, 01/22/20 9:37:00 EDT, Tablet, [facility]/pharmacy #[id number], 167, cm, 01/13/20 8:54:00 EDT, Heigh... Start Date: 01/22/20 Status: Ordered ferrous sulfate 325 mg oral tablet 1 tablet = 325 mg, By Mouth, Daily, May take with food to minimize abdominal discomfort. Do not take with milk. Take preferrably with juice., # 90 tablet, 2 Refills, Maintenance, 01/22/20 9:38:00 EDT, [facility]/pharmacy #[id number], 167, cm, 01/13/20 8:54:00 EDT,... [...] capsule, 4 Refills, Maintenance, 01/22/20 9:39:00 EDT, [facility]/pharmacy #1026, 167, cm, 01/13/20 8:54:00 EDT, Height, 78.8, kg, 01/01/20 3:41:00 EDT, Dry Weight Start Date: 01/22/20 Stop Date: 06/20/20 Status: Ordered ketotifen 0.025% ophthalmic solution 1 drops, Eyes, Both, Every 12 hours, PRN as needed for eye allergy, # 7.5 mL, 11 Refills, Maintenance, 02/01/19 15:44:02 EDT, 1 drops Eyes, Both Every 12 hours,PRN:as needed for eye allergy Start Date: 02/01/19 Status: Ordered Lancets See Instructions, # 150 [...] 01/22/20 9:41:00 EDT, Route to Pharmacy Electronically, [facility]/pharmacy #[id number], 167, cm, 01/13/20 8:54:00 EDT, Height, 78... Start Date: 01/22/20 Status: Ordered metFORMIN 500 mg oral tablet 1 tablet = 500 mg, By Mouth, Daily, Take 1 tablet w/a meal daily, E11.65, # 30 tablet, 6 Refills, Maintenance, 01/17/20 16:28:00 EDT, [facility]/pharmacy #1972, 167, cm, 01/13/20 8:54:00 EDT, [...] 78.8, kg,... Start Date: 01/21/20 Status: Ordered Idx-owr-hjdqs medical-grade oxford diabetic shoes, depth or hightop Rsv-yho-vzgec medical-grade oxford diabetic shoes, depth or hightop, [...] 01/17/20 11:43:00 EDT, Route to Pharmacy Electronically, [facility], Part... Start Date: 01/17/20 Stop Date: 02/14/20 Status: Ordered oxyCODONE 5 mg oral tablet 5 mg, 1, tablet, By Mouth, Every 4 hours, for 28 days, PRN pain dispense not earlier than 02/14/20, # 168 tablet, Refills 0, Tot. Refills 0, Acute 03/13/20 11:43:00 EST, 02/14/20 11:43:00 EST, Route to Pharmacy Electronically, [facility], Part... Start Date: 02/14/20 Stop Date: 03/13/20 Status: Ordered [place], 32 G x 4 mm BD Ultra [...] or juice), # 527 Gm,11 Refills, Maintenance, 01/16/19 8:53:22 EDT, [facility] Start Date: 01/16/19 Status: Ordered Protonix 40 mg oral delayed [...] 09/25/19 11:08:00 EDT, Route to Pharmacy Electronically, [facility] Tablet, 159, cm, 05/20/19... Start Date: 09/25/19 [...] 01/22/20 9:43:00 EDT, Route to Pharmacy Electronically, [facility]/pharmacy #[id number], 167,... Start Date: 01/22/20 Status: Ordered TENS electrode pads TENS electrode pads, See Instructions, # 1 box, Refills 5, Tot. Refills 5, Maintenance, use as directed for back pain Dx LBP M54.9 1 box of 4, 12/06/16 14:59:01, Compound Start Date: 12/06/16 Status: Ordered Trelegy Ellipta inhalation powder 1 puffs, Inhalation, Daily, at the same time every day given by powder room attendant , Dr Berkowitz, # 60 each, 0 [...] Gm, 5 Refills, Maintenance, 01/22/20 9:19:00 EDT, [id number], 167, cm, 01/13/20 8:54:00 EDT, Height, 78.8, kg, 01/01/20 3:41:00 EDT, D... Start Date: 01/22/20 Status: Ordered Vitamin D3 1000 intl units oral tablet 1 tablet = 1,000 International_Units, By Mouth, Daily, # 90 tablet, 0 Refills, Maintenance, 01/22/20 9:21:00 EDT, [id number], 167, cm, 01/13/20 8:54:00 EDT, Height, 78.8, kg, 01/01/20 3:41:00EDT, Dry Weight Start Date: 01/22/20 Status: Ordered [place] Reusable Bed Pad 34 x 36 [place] Reusable Bed Pad 34 x 36 , [...] abnormal(Confirmed) 11 12/29/11 Active Hepatitis C(Confirmed) Active skilled nursing current use of opi ate analgesic-LBP(Confirmed) 12 Active Hypercholesterolemia(Confirmed) Active Hyperparathyroidism s/p righ t lower parathyroidectomy 06/16/2008(Confirmed) Active Hypertension(Confirmed) Active Hysterectomy(Confirmed) Active Incontinence of urine(Confirmed) Active Iron deficiency anemia(Confirmed) Active Left ventricular hypertrophy(Confirmed) 13 Active Memory impairment(Confirmed) Active Mitral regurgitation(Confirmed) 14 05/24/17 Active Nephrolithiasis(Confirmed) 15, 16, 17 06/11/02 Active Obesity(Confirmed) Active JENNIFER (obstructive sleep apnea)(Confirmed) Active Osteopenia(Confirmed) 18, 19 11/16/12 Active *[id number]-[facility] Partn david [place](Confirmed) Active Peripheral venous insufficiency(Confirmed) [...] 2 peroneal veins diagnosed on Dec 20 [facility] 6insulin dependent 7Per ECHO 05/24/1718 Grade I, [...] 1 11left mild sensorineural hearing loss by [facility] Hearing Evaluation on 12/29/11 [...] lower parathyroidectomy. 06/16/08 SURGEON: Danny Marie M.D. SATELLITE MANAGER: Naima Bowling M.D. 21b/l submassive PE diagnosed on Dec 20 in [facility] 22TTE 12/22/15 in [facility]: RV dilatation, RVSP 46 23Per ECHO 05/24/17 Trace mitral regurgitation , trace TC regurgitation w no significant valve pathology 24meg colo July 2009 exc for 2 hyperplastic polyps 25Colonoscopy 2004 at [facility] [place] per letter of Dr Amor Dobbins Social History Social History Type Response Smoking Status Never (less than 100 in lifetime) entered on: 12/25/19 Sex
--- OUTSIDE RECORDS SUMMARY | 2023-10-23 09:35 | XMS_ITS | Continuity of Care Document ---
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 Refills 9, Maintenance, Use to check blood sugar, up to 5 times daily. E11.65, IDDM, 06/21/19 15:45:00 EDT, Compound, 159, cm, 05/20/19 12:19:00 EST, Height, 88.1, kg, 04/25/19 16:02:00 EST, Dry Weight Start Date: 06/21/19 Status: Ordered ammonium lactate 12% topical cream [...] mg, 2, mL, Neb, Daily, given by glacing machine tender , Dr Berkowitz, # 120 mL, Refills [...] 11 Refills, Maintenance, 09/25/19 11:21:00 EDT, Cream, [facility], 1 application Topically 3 times a [...] Refills, Maintenance, 03/27/19 9:10:00 EST, EC Capsule, [facility], 159, cm, 03/20/19 14:59:00 EST, Height, 88.3, kg, 12/13/18 10:17:00 EDT, Dry Weight Start Date: 03/27/19 Status: Ordered dexamethasone 6 mg oral tablet 1 tablet = 6 mg, By Mouth, Daily, # 3 tablet, 0 Refills, Maintenance, 01/07/20 12:02:00 EDT, Tablet, [facility], 167, cm, 01/06/20 8:40:00 EDT, Height, 78.8, kg, 01/01/20 3:41:00 EDT, Dry Weight Start Date: 01/07/20 Stop Date: 01/10/20 Status: Ordered docusate sodium 100 mg oral tablet 2 tablet = 200 mg, By Mouth, 2 times a day, # 120 tablet, 11 Refills, Maintenance, 09/25/19 11:07:00 EDT, [facility], 159, cm, 05/20/19 12:19:00 EST, Height, 88.1, kg, 04/25/19 16:02:00 EST, Dry Weight Start Date: 09/25/19 Status: Ordered Eliquis 5 mg oral tablet 1 tablet = 5 mg, By Mouth, 2 times a day, # 60 tablet, 11 Refills, Maintenance, 07/22/19 8:58:00 EDT, Tablet, [facility], 159, cm, 05/20/19 12:19:00 EST, Height, 88.1, kg, 04/25/19 16:02:00 EST, Dry Weight Start Date: 07/22/19 Status: Ordered famotidine 40 mg oral tablet 1 tablet = 40 mg, By Mouth, Daily at bedtime, If 40 mg tablet is not available, can change to 20 mgtablet 2 tablet at bedtime, # 30 tablet, 2 Refills, Maintenance, 10/09/19 10:01:00 EDT, Tablet, [facility], 159, cm, 09/25/19 14:31... Start Date: 10/09/19 Status: Ordered ferrous sulfate 325 mg oral tablet 1 tablet = 325 mg, By Mouth, Daily, May take with food to minimize abdominal discomfort. Do not take with milk. Take preferrably with juice., # 90 tablet, 3 Refills, Maintenance, 11/22/19 14:58:00 EDT, [facility], 159, cm, 09/25/19... Start Date: 11/22/19 Status: Ordered Freestyle Lite Test Strips See Instructions, # 150 each, Refills 11, Tot. Refills 11, Maintenance, Check up to 5 times daily. E11.65, 03/19/19 11:16:10 EST, Compound, 159, cm, 01/16/19 7:59:50 EDT, Height, 88.3, kg, 12/13/18 10:17:57 EDT, Dry Weight Start Date: 03/19/19 Stop Date: 03/13/20 Status: Ordered Glucose Tablets See Instructions, # 100 tablet, Refills 5, Tot. Refills 5, Maintenance, 1 tablet By Mouth prn low bs bellow 70, 06/23/19 16:56:00 EDT, Compound, 159, cm, 05/20/19 12:19:00 EST, Height, 88.1, kg, 04/25/19 16:02:00 EST, Dry Weight Start Date: 06/23/19 Status: Ordered hydroCHLOROthiazide 12.5 mg oral capsule 1 capsule = 12.5 mg, By Mouth, Daily, # 30 capsule, 11 Refills, Maintenance, 06/30/19 9:25:00 EDT, [facility]/pharmacy #[id number], 159, cm, 05/20/19 12:19:00 EST, Height, 88.1, kg, 04/25/19 16:02:00 EST, Dry Weight Start Date: 06/30/19 Stop Date: 06/24/20 Status: Ordered ketotifen 0.025% ophthalmic solution 1 [...] PRN, 90 days, # 90 tablet, Refills 3, Tot. Refills 3, Maintenance, as needed for allergy symptoms, 01/16/19 8:53:23 EDT, Route to Pharmacy Electronically, [id number], [facility]... Start Date: 01/16/19 Status: Ordered metFORMIN 500 mg oral tablet 1 tablet = 500 mg, By Mouth, Daily, Take 1 tablet w/a meal daily, E11.65, # 30 tablet, 6 Refills, Maintenance, 01/17/20 16:28:00 EDT, [facility], 167, cm, 01/13/20 8:54:00 EDT, Height, 78.8, kg, 01/01/20 3:41:00 EDT, Dry Weight Start Date: 01/17/20 Status: Ordered NovoLOG FlexPen 100 units/mL subcutaneous solution See Instructions, Inject up to 26 untis via Insulin sliding scale 3x a day w/meals,MAX daily dose 78 units, E11.65, # 45 mL, 6 Refills, Maintenance, 01/17/20 16:27:00 EDT, [facility], 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 Start Date: 01/17/20 Status: Ordered Ybv-ywx-rgkvs medical-grade oxford diabetic shoes, depth or hightop Tmj-qsu-gakph medical-grade oxford diabetic shoes, depth or hightop, [...] 01/17/20 11:43:00 EDT, Route to Pharmacy Electronically, [facility]/pharmacy #1972, Part... Start Date: 01/17/20 Stop Date: 02/14/20 Status: Ordered oxyCODONE 5 mg oral tablet 5 mg, 1, tablet, By Mouth, Every 4 hours, for 28 days, PRN pain dispense not earlier than 02/14/20, # 168 tablet, Refills 0, Tot. Refills 0, Acute 03/13/20 11:43:00 EST, 02/14/20 11:43:00 EST, Route to Pharmacy Electronically, [facility]/pharmacy #1972, Part... Start Date: 02/14/20 Stop Date: 03/13/20 Status: Ordered Pen [place], 32 G x 4 mm BD Ultra [...] 527 Gm,11 Refills, Maintenance, 01/16/19 8:53:22 EDT, [facility] Start Date: 01/16/19 Status: Ordered Protonix 40 mg oral delayed release tablet 1 tablet = 40 mg, By Mouth, Daily, Take 30 minutes before dinner, # 30 tablet, 11 Refills, Maintenance, 07/08/19 14:46:00 EDT, 159, cm, 05/20/19 12:19:00 EST, Height, 88.1, kg, 04/25/19 16:02:00 EST,Dry Weight Start Date: 07/08/19 Status: Ordered Pull ups Pull ups, See [...] 09/25/19 11:08:00 EDT, Route to Pharmacy Electronically, [facility] Tablet, 159, cm, 05/20/19... Start Date: 09/25/19 [...] tablet, Refills 5, Tot. Refills 5, Maintenance, 11/29/19 14:34:00 EDT, [facility] Electron[facility], [facility]... Start Date: 11/29/19 Status: Ordered TENS electrode pads TENS electrode pads, See Instructions, # 1 box, Refills 5, Tot. Refills 5, Maintenance, use as directed for back pain Dx LBP M54.9 1 box of 4, 12/06/16 14:59:01, Compound Start Date: 12/06/16 Status: Ordered Trelegy Ellipta inhalation powder 1 puffs, Inhalation, Daily, at the same time every day given by glacing machine tender , Dr Berkowitz, # 60 each, 0 Refills, Maintenance, 11/20/19 13:03:00 EDT, Powder Start Date: 11/20/19 Status: Ordered Tresiba FlexTouch 200 units/mL subcutaneous solution See Instructions, Inject 86 units daily at 9pm, E11.65, # 45 mL, 6 Refills, Maintenance, 01/17/20 16:28:00 EDT, [facility]/pharmacy #1972, 167, cm, 01/13/20 8:54:00 EDT, Height, 78.8, kg, 01/01/20 3:41:00 EDT, Dry Weight Start Date: 01/17/20 Status: Ordered Ventolin HFA 108 mcg/inh inhalation aerosol with adapter 2 puffs, Inhalation, 4 times a day, PRN Wheezing/Shortness of Breath, dispense when patient requestit, # 18 Gm, 5 Refills, Maintenance, 07/10/19 17:15:00 EDT, [facility]/pharmacy #[id number], 159, cm, 05/20/19 12:19:00 EST, Height, 88.1, kg, 04/25/19 16:02:00 EST... 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(Confirmed) 12 Active Hypercholesterolemia(Confirmed) Active Hyperparathyroidism s/p righ t lower parathyroidectomy 06/16/2008(Confirmed) Active Hypertension(Confirmed) Active Hysterectomy(Confirmed) Active Incontinence of urine(Confirmed) Active Iron deficiency anemia(Confirmed) Active Left ventricular hypertrophy(Confirmed) 13 Active Memory impairment(Confirmed) Active Mitral regurgitation(Confirmed) 14 05/24/17 Active Nephrolithiasis(Confirmed) 15, 16, 17 06/11/02 Active Obesity(Confirmed) Active JENNIFER (obstructive sleep apnea)(Confirmed) Active Osteopenia(Confirmed) 18, 19 11/16/12 Active *[id number]-[facility] Partn david [place](Confirmed) Active Peripheral venous insufficiency(Confirmed) [...] 2 peroneal veins diagnosed on Dec 20 [facility] 6insulin dependent 7Per ECHO 05/24/1718 Grade [...] 1 11left mild sensorineural hearing loss by [facility] Hearing Evaluation on 12/29/11 12Narcotic contract [...] lower parathyroidectomy. 06/16/08 SURGEON: Danny Marie M.D. APARTMENT RENTAL AGENT: Naima Bowling M.D. 21b/l submassive PE diagnosed on Dec 20 in [facility] 22TTE 12/22/15 in [facility]: RV dilatation, RVSP 46 23Per ECHO 05/24/17 Trace mitral regurgitation , trace TC regurgitation w no significant valve pathology 24meg colo July 2009 exc for 2 hyperplastic polyps 25Colonoscopy 2004 at [facility] [place] per letter of Dr Amor Dobbins Social History Social History Type Response Smoking Status Never (less than 100 in lifetime) entered on: 12/25/19 Sex
--- OUTSIDE RECORDS SUMMARY | 2023-10-23 09:35 | XMS_ITS | Continuity of Care Document ---
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 Name Role Phone Gayathri GARZA, Florinda Primary Care Physician Encounter [facility] Date(s): 08/10/21 - 09/09/21 [facility] Allergies, Adverse Reactions, Alerts Substance Reaction Severity Status penicillin RASH Active morphine itchy Active Bactrim 1 hyperkalemia Active Lidocaine, Topical Active 1Hyperkalemia when used together with lisinopril Immunizations Given and Recorded Vaccine Date Status Refusal Reason SARS-CoV-2 (COVID-19) mRNA BNT-162b2 vac 03/18/21 Recorded SARS-CoV-2 (COVID-19) mRNA BNT-162b2 vac 1 06/11/20 Given SARS-CoV-2 (COVID-19) mRNA BNT-162b2 vac 2 05/21/20 Given influenza virus vaccine, inactivated 03/09/21 Give n influenza virus vaccine, inactivated 02/25/20 Give n influenza virus vaccine, inactivated 01/16/19 Give n influenza virus vaccine, inactivated 01/17/18 Give n influenza virus vaccine, inactivated 01/04/17 Give n influenza virus vaccine, inactivated 12/25/15 Cornelio rded influenza virus vaccine, inactivated 3 03/04/15 Gi [...] Masood RUVALCABA RN 2Result Comment: Given by Leonie Garcia RN 3Result Comment: [03/04/2015] ORDERED BY DR. HAWK 4Admin Note: vis 11/02/2010 5Admin Note: given by ELLIOTT HEWITT. 6Admin Note: MELISSA CHIU RN 7Admin Note: administered by melissa chiu 8Admin Note: ADMINISTERED BY Jason 9Result Comment: [05/13/2014] Ordered by Kendall 10Result Comment: [05/13/2014] Ordered by Kendall 11Result Comment: [10/16/2012] ORDERED BY 12Admin Note: VIS 01/13/09 GIVEN 13Admin Note: ADMINISTERED BY RN 14Admin Note: VIS 02/26/08 GIVEN Medications acetaminophen 500 mg oral tablet 2 tablet = 1,000 mg, By Mouth, Every 6 hours, PRN as needed for pain or fever, (not to exceed 2000 mg/day) yi, # 100 tablet, 11 Refills, Maintenance, 04/28/21 13:24:00 EST, [facility]/pharmacy #[id number], 160, cm, 04/28/21 9:50:00 EST, Height, [...] Gm, 11 Refills, Maintenance, 07/21/21 12:43:00 EDT, [id number], 1 applicator Topically 2 [...] II op... Start Date: 06/26/20 Status: Ordered Biotene Moisturizing Mouth oral spray See Instructions, [place] directly into mouth; spray is safe to swallow as needed for dry mouth, # 45mL, 11 Refills, Maintenance, 07/21/21 12:43:00 EDT, [id number], [place] directly into mouth; spray is safe to swallow as needed for dry mouth... Start Date: 07/21/21 Status: Ordered Boost Glucose Control Boost Glucose [...] 11 Refills, Maintenance, 07/21/21 12:26:00 EDT, Cream, [id number], 1 application Topically 3 [...] EDT, Compound Start Date: 07/21/21 Status: Ordered [facility] GLUCOSE 4 GRAM TABLET [...] 11 Refills, Maintenance, 04/21/21 18:12:00 EST, Tablet, [facility]/pharmacy #[id number], 160, cm, 03/03/21 11:23:00 EST, Height, 80.6, kg, 06/03/20 19:00:00 EST, Dry Weight Start Date: 04/21/21 Status: Ordered escitalopram 20 mg oral tablet 1 tablet = 20 mg, By Mouth, Daily, Discontinue duloxetine 60 mg, # 30 tablet, 11 Refills, Maintenance, 12/09/20 11:15:00 EDT, Tablet, [id number], Partial fill upon patient request [...] tablet, 3 Refills, Maintenance, 07/12/21 18:53:00 EDT, Tablet,[id number], Discontinue 30- day supply presc... Start Date: 07/12/21 Stop Date: 07/07/22 Status: Ordered FREESTYLE LITE TEST STRIP FREESTYLE [...] 04/28/21 14:34:00 EST, Route to Pharmacy Electronically, [facility]/pharmacy #[id number], Can use with HCTZ, 160, cm, [...] capsule, 3 Refills, Maintenance, 10/22/20 10:35:00 EDT, [facility]/pharmacy #[id number], 160, cm, 10/22/20 9:15:00 EDT, Height, 80.6, kg, 06/03/20 19:00:00 EST, Dry Weight Start Date: 10/22/20 Stop Date: 10/17/21 Status: Ordered ketotifen 0.025% ophthalmic solution 1 drops, Eyes, Both, Every 12 hours, PRN as needed for eye allergy, # 7.5 mL, 11 Refills, Maintenance, 06/25/21 8:34:00 EDT, [facility]/pharmacy #[id number], 1 drops Eyes, Both Every 12 [...] 04/28/21 19:12... Start Date: 04/28/21 Status: Ordered metFORMIN 500 mg oral tablet See Instructions, 1 TABLET BY MOUTH DAILY,INSTR:TAKE 1 TABLET W/A MEAL DAILY, E11.65, # 90 tablet, 2 Refills, [facility] STORE [id number], 160, cm, 06/21/21 9:57:00 EDT, Height, 80.6, kg, 06/03/20 19:00:00 EST, Dry Weight Start Date: 07/19/21 Status: Ordered Nexium 40 mg oral enteric [...] 78.8, kg,... Start Date: 01/21/20 Status: Ordered Lwd-dtd-gpbjl medical-grade oxford diabetic shoes, depth or hightop Bfi-lll-hczkk medical-grade oxford diabetic shoes, depth or hightop, See Instructions, # 1 each, Refills 0, Tot. 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 Start Date: 07/21/21 Status: Ordered oxyCODONE 5 mg oral tablet 5 mg, 1, tablet, By Mouth, Every 4 hours, for 28 days, PRN pain dispense not earlier than 09/03/21 bec 09/06/21 is a Holiday Please dispense KVTek brand (K18) If oxycodone 5 mg tablet is not available,it can be switched to oxycodone 10 mg 0.5... Start Date: 09/06/21 Stop Date: 10/04/21 Status: Ordered oxyCODONE 5 mg oral tablet 5 mg, 1, tablet, By Mouth, Every 4 hours, for 28 days, PRN pain dispense not earlier than 10/04/21 Please dispense KVTek brand (K18) If oxycodone 5 mg tablet is not available, it can be switched to oxycodone 10 mg 0.5 tablets 4 hours x28 days f... Start Date: 10/04/21 Stop Date: 11/01/21 Status: Ordered Pen [place], 32 G x 4 mm BD Ultra [...] 04/28/21 14:02:00 EST, Route to Pharmacy Electronically, [facility]/pharmacy #[id number], 160... Start Date: 04/28/21 Stop Date: [...] 527 Gm,11 Refills, Maintenance, 01/27/20 19:13:00 EDT, [facility]/pharmacy #1026, 17- 34 Gm By [...] 11 Refills, Maintenance, 04/28/21 14:03:00 EST, Tablet, [facility]/pharmacy #1026, 160, cm, 04/28/21 9:50:00 EST, Height, 80.6, kg, 06/03/20 19:00:00 EST, Dry Weight Start Date: 04/28/21 Status: Ordered Senna-Time 8.6 mg oral tablet 2 tablet, By Mouth, 2 times a day, PRN NEEDED FOR CONSTIPATION,INSTR, DISCONTINUE DOCUSATE, # 60tablet, 11 Refills, [facility] STORE [id number], 160, cm, 03/03/21 11:23:00 EST, Height, 80.6, [...] pairs, ... Start Date: 07/21/21 Status: Ordered Singulair 10 mg oral tablet 10 mg, 1, tablet, By Mouth, Daily at bedtime, Take every night even if doesn't has any asthma or allergies symptoms., # 30 tablet, Refills 11, Tot. Refills 11, Maintenance, 02/22/21 17:50:00 EST, Route to Pharmacy Electronically, [facility]/pharmacy #1026, 1... Start Date: 02/22/21 Status: Ordered TENS electrode pads TENS electrode pads, See Instructions, # 1 each, Refills 5, Tot. Refills 5, Maintenance, use as directed for back pain Dx LBP M54.9 1 box of 4, 08/27/21 14:17:00 EDT, Compound Start Date: 08/27/21 Status: Ordered tiZANidine 2 mg oral tablet 2 mg, 1, tablet, By Mouth, Every 8 hours, as needed for muscle spasm, # 42 tablet, Refills 2, Tot. Refills 2, Maintenance, 02/15/21 11:39:00 EST, Route to Pharmacy Electronically, [facility]/pharmacy #[id number],Partial fill upon patient request if the prescrip... Start Date: 02/15/21 Stop Date: 03/29/21 Status: Ordered Trelegy Ellipta inhalation powder 1 puffs, Inhalation, Daily, at the same time every day Given by Pan Washer, Dr. Michael Berkowitz, # 60 each, 0 Refills, Maintenance, 07/21/21 11:59:00 EDT, Powder, Partial fill upon patient request if the prescription is for a schedule II opi... Start Date: 07/21/21 Status: Ordered Tresiba FlexTouch 200 units/mL subcutaneous solution See Instructions, INJECT 86 UNITS DAILY AT 9PM, # 45 Unknown, 6 Refills, [id number], 160, cm, 06/21/21 9:57:00 EDT, Height, 80.6, kg, 06/03/20 19:00:00 EST, Dry Weight Start Date: 06/22/21 Status: Ordered Ventolin HFA 108 mcg/inh inhalation [...] Date: 02/15/21 Stop Date: 05/10/21 Status: Ordered [place] Reusable Bed Pad 34 x 36 [place] Reusable Bed Pad 34 x 36 , [...] 11 Refills, Maintenance, 10/22/20 10:19:00 EDT, Tablet, [facility], Partial fill upon patient request if the prescription is for a schedule II opioid drug., 1 tablet B... Start Date: 10/22/20 Status: Ordered Zofran 4 mg oral tablet 1 tablet = 4 mg, By Mouth, Every 8 hours, PRN Nausea & Vomiting, # 15 tablet, 1 Refills, Maintenance, 06/04/21 16:16:00 EST, Tablet, [facility], Partial fill upon patient request if the prescription is for a schedule II opioid drug., 160, cm,... 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(Confirmed) 12 Active Hypercholesterolemia(Confirmed) Active Hyperparathyroidism s/p righ t lower parathyroidectomy 06/16/2008(Confirmed) Active Hypertension(Confirmed) Active Hysterectomy(Confirmed) Active Incontinence of urine(Confirmed) Active Iron deficiency anemia(Confirmed) Active Left ventricular hypertrophy(Confirmed) 13 Active 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) Active Memory impairment(Confirmed) Active Mitral regurgitation(Confirmed) 14 05/24/17 Active Myofascial muscle pain(Confirmed) Active Nephrolithiasis(Confirmed) 15, 16, 17 06/11/02 Active Obese class I(Confirmed) Active Obesity(Confirmed) Active JENNIFER (obstructive sleep apnea)(Confirmed) Active Osteopenia(Confirmed) 18, 19 11/16/12 Active *[id number] Care Partn igor More(Confirmed) Active Peripheral venous insufficiency(Confirmed) 10/31/11 Active Positive PPD(Confirmed) 10/09/14 Active Primary hyperparathyroidism( Confirmed) 20 Active Psychophysiological insomnia(Confirmed) Active Bilateral pulmonary embolism(Confirmed) 21 12/21/15 Active Pulmonary embolism(Confirmed) Active Pulmonary hypertension(Confirmed) Active Restless leg syndrome(Confirmed) Active Right ventricular dilation(C onfirmed) 22 12/22/15 Active Seasonal allergic rhinitis(Confirmed) Active Subclinical hypothyroidism(Confirmed) Active TR (tricuspid regurgitation)(Confirmed) 23 05/24/17 Active [...] 2 peroneal veins diagnosed on Dec 20 [facility] 6insulin dependent 7Per ECHO 05/24/1718 Grade [...] 1 11left mild sensorineural hearing loss by [facility] Hearing Evaluation on 12/29/11 12Narcotic contract [...] lower parathyroidectomy. 06/16/08 SURGEON: Danny Marie M.D. AIR TUCKER: Naima Bowling M.D. 21b/l submassive PE diagnosed on Dec 20 in [facility] TTE 12/22/15 in [facility]: RV dilatation, RVSP 46 23Per ECHO 05/24/17 Trace mitral regurgitation , trace TC regurgitation w no significant valve pathology 24meg colo July 2009 exc for 2 hyperplastic polyps 25Colonoscopy 2004 at [facility] [place] per letter of Dr Amor Dobbins Social History Social History Type Response Smoking Status Never (less than 100 in lifetime) entered on: 10/22/20 Sex
--- OUTSIDE RECORDS SUMMARY | 2023-10-23 09:35 | XMS_ITS | Continuity of Care Document ---
Author Organization [facility] Address [address] [place] [id number]- Care Team Providers Care Bargeman Name Role Phone Florinda Trinh MD Primary Care Physician Encounter [facility] [place] Date(s): 01/12/22 - 05/12/22 [facility] [address] [place] [id number]- Attending Physician: Yolande Rey MD Admitting Physician: Yolande Rey MD Referring Physician: Florinda Trinh MD Allergies, Adverse Reactions, Alerts Substance Reaction Severity Status penicillin RASH Active morphine itchy Active Bactrim 1 hyperkalemia Active Lidocaine, Topical Active 1Hyperkalemia when used together with lisinopril Immunizations Given and Recorded Vaccine Date Status Refusal Reason zoster vaccine, inactivated 12/08/21 Given zoster vaccine, inactivated 09/15/21 Given SARS-CoV-2 mRNA (wbldwei-fydr-ohoug) vax 09/15/21 Given SARS-CoV-2 (COVID-19) mRNA BNT-162b2 [...] given by ELLIOTT HEWITT. 6Admin Note: MELISSA CRAFT RN 7Admin Note: administered by melissa craft 8Admin Note: ADMINISTERED BY RYoana 9Result Comment: [05/13/2014] Ordered by Kendall 10Result Comment: [05/13/2014] Ordered by Kendall 11Result Comment: [10/16/2012] ORDERED BY 12Admin Note: VIS 01/13/09 GIVEN 13Admin Note: ADMINISTERED BY HEIDY 14Admin Note: VIS 02/26/08 GIVEN Medications ALCOHOL 70% PREP PADS ALCOHOL 70% PREP [...] Gm, 11 Refills, Maintenance, 07/21/21 12:43:00 EDT, [facility]/pharmacy #[id number], 1 applicator Topically 2 times a day, 160, cm, 07/21/21 10:22:00 EDT, Height, 80.6, kg, 06/03/20 19:00:00 EST, Dry Weight Start Date: 07/21/21 Status: Ordered Baqsimi Two Pack 3 mg nasal powder = 3 mg, Naris, Right, Once, Please use for a low blood sugar emergency, may repeat in 15 minutes, #1 each, 3 Refills, Soft Stop, 03/09/22 11:35:00 EST, [id number], 160, cm, 03/09/22 10:43:00EST, Height, 78, kg, 01/14/22 19:37:00 EDT, Dry W... Start Date: 03/09/22 Status: Ordered Boost Glucose Control Boost Glucose [...] needed for anxiety and 1tab at HS [id number], # 60 tablet, 11 Refills, Maintenance, 09/15/21 9:02:00 EDT, [id number], Partial fill upon patient request... Start [...] EDT, Compound Start Date: 07/21/21 Status: Ordered escitalopram 20 mg oral tablet 1 tablet = 20 mg, By Mouth, Daily, # 30 tablet, 11 Refills, Maintenance, 12/06/21 15:04:00 EDT, Tablet, [facility], Partial fill upon patient request [...] tablet, 3 Refills, Maintenance, 07/12/21 18:53:00 EDT, Tablet,[facility]/pharmacy #1026, Discontinue 30- day supply presc... Start Date: 07/12/21 Stop Date: 07/07/22 Status: Ordered ferrous sulfate 325 mg oral tablet 1 tablet = 325 mg, By Mouth, Daily, May take with food to minimize abdominal discomfort. Do not take with milk. Take preferrably with juice., # 90 tablet, 3 Refills, Maintenance, 09/15/21 8:56:00 EDT, [id number], 160, cm, 09/15/21 8:15:00 EDT,... Start [...] 1 tablet By Mouth prn low bs susan 70, 03/09/22 11:34:00 EST, Compound, 160, cm, 03/09/22 10:43:00 EST, Height, 78, kg, 01/14/22 19:37:00 EDT, Dry Weight Start Date: 03/09/22 Status: Ordered isosorbide mononitrate 30 mg oral tablet, extended release 30 mg, 1, tablet, By Mouth, Daily in AM, # 90 tablet, Refills 0, Tot. Refills 0, Maintenance, 04/19/22 10:15:00 EST, Route to Pharmacy Electronically, [facility]/pharmacy #[id number], Partial fill upon patient request if the prescription is for a schedule II opioi... Start Date: 04/19/22 Status: Ordered ketotifen 0.025% ophthalmic solution 1 drops, Eyes, Both, Every 12 hours, PRN as needed for eye allergy, # 7.5 mL, 11 Refills, Maintenance, 06/25/21 8:34:00 EDT, [facility]/pharmacy #[id number], 1 drops Eyes, Both Every [...] 90 tablet, 3 Refills, 03/09/22 11:57:00 EST, [facility]/pharmacy #[id number], 1 tablet By Mouth Daily before dinner,PRN:allergies, 160, cm, 03/09/22 10:43:00 EST, Height, 78, kg, 01/14/22 19:37:00 ED... Start Date: 03/09/22 Status: Ordered montelukast 10 mg oral tablet 10 mg, 1, tablet, By Mouth, Daily at bedtime, # 90 tablet, Refills 3, Tot. Refills 3, Maintenance, 03/09/22 11:37:00 EST, Route to Pharmacy Electronically, [facility]/pharmacy #[id number], 160, cm, 03/09/22 10:43:00 EST, Height, 78, kg, 01/14/22 19:37:00 EDT, Dry... Start Date: 03/09/22 Stop Date: 03/04/23 Status: Ordered Nexium 40 mg oral enteric coated capsule 1 capsule = 40 mg, By Mouth, Daily, 30 minutes before breakfast, # 30 capsule, 2 Refills, Maintenance, 05/02/22 15:39:00 EST, [id number], Discontinue pantoprazole, 160, cm, 04/19/22 9:55:00 EST, Height, 76, kg, 04/12/22 16:37:00 EST, Dry Weight Start Date: 05/02/22 Stop Date: 07/31/22 Status: Ordered Norvasc 5 mg oral tablet 5 mg, 1, tablet, By Mouth, Daily, # 90 tablet, Refills 3, Tot. Refills 3, Maintenance, 03/09/22 11:54:00 EST, Route to Pharmacy Electronically, [id number], 160, cm, 03/09/22 10:43:00 EST, [...] 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 Start Date: 03/09/22 Status: Ordered Bak-onq-xkymr medical-grade oxford diabetic shoes, depth or hightop Lpk-sai-mknpj medical-grade oxford diabetic shoes, depth or hightop, [...] 5 mg, 1, tablet, By Mouth, Every 6 hours, for 28 days, for pain; fill date 05/04/2022; Discontinue Hydrocodone/acetaminophen 7.5 mg 300 mg; Dx Chronic LBP, renal colic, # 112 tablet, Refills 0, Tot. Refills 0, Acute 06/01/22 15:50:00 EST, ... Start Date: 05/04/22 Stop Date: 06/01/22 Status: Ordered Pen [place], 32 G x 4 mm BD Ultra Fine III See Instructions, # 360 each, Refills 3, Tot. Refills 3, Maintenance, Use as directed for insulin use 4 times a day DX IDDM; 90 days, 02/01/21 10:40:00 EDT, Compound, 160, cm, 01/28/21 13:05:00 EDT, Height, 80.6, kg, 06/03/20 19:00:00 EST DLizbet.. Start Date: 02/01/21 Status: Ordered PLEASE DO [...] 527 Gm,11 Refills, Maintenance, 03/09/22 11:39:00 EST, [facility]/pharmacy #[id number], 17- 34 Gm By Mouth [...] the same time every day Given by Wax Pumper, Dr. Michael Berkowitz, # 60 each, 0 Refills, Maintenance, 07/21/21 11:59:00 EDT, Powder, Partial fill upon patient request if the prescription is for a schedule II opi... Start Date: 07/21/21 Status: Ordered Tresiba FlexTouch 200 units/mL subcutaneous solution See Instructions, INJECT 42 UNITS DAILY AT 9PM E11.9 90 day, # 21 mL, 3 Refills, 03/09/22 17:14:00 EST, [facility]/pharmacy #[id number], 160, cm, 03/09/22 10:43:00 EST, Height, 78, kg, 01/14/22 19:37:00 EDT, Dry Weight Start Date: 03/09/22 Status: Ordered Ventolin HFA 108 mcg/inh inhalation aerosol with adapter 2 puffs, Inhalation, 4 times a day, PRN Wheezing/Shortness of Breath, dispense when patient requestit, # 18 Gm, 5 Refills, Maintenance, 11/09/20 12:36:00 EDT, [facility]/pharmacy #1026, 160, cm, 10/22/20 9:15:00 EDT, [...] Date: 03/09/22 Stop Date: 06/01/22 Status: Ordered Alsip Reusable Bed Pad 34 x 36 Alsip Reusable Bed Pad 34 x 36 , [...] Confirmed 12/29/11 Active Hepatitis C Confirmed Active senior living current use of opiate analgesic-LBP 12 Confirmed [...] Nephrolithiasis 15, 16, 17 Confirmed 06/11/02 Active Obese class I Confirmed Active Obesity Confirmed Active JENNIFER (obstructive sleep apnea) Confirmed Active Osteopenia 18, 19, 20 Confirmed 11/16/12 Active *[id number] 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 06/16/08 SURGEON: Danny Marie M.D. COMPOSITOR APPRENTICE: Naiam Bowling M.D. 22b/l submassive PE diagnosed on Dec 20 in [facility] 23TTE 12/22/15 in [facility]: RV dilatation, RVSP 46 24Per ECHO 05/24/17 Trace mitral regurgitation , trace TC regurgitation w no significant valve pathology 25meg colo July 2009 exc for 2 hyperplastic polyps 26Colonoscopy 2004 at [facility] [place] per letter of Dr Amor Dobbins Social History Social History Type Response Smoking Status Never (less than 100 in lifetime) entered on: 10/22/20 Sex Patient Care team information Care Team Personnel Name: Diamond Weiss RN Position: [facility] RN Member Role: Primary Care Nurse Name: Tiara Cavazos RN Position: [facility] OB RN Member Role: Primary Care Nurse Name: Shreya Boss RN Position: S RN Member Role: Primary Care Nurse Name: Virginia Benson RN Position: S RN Member Role: Primary Care Nurse Name: Jaylin Hernandez RN Position: [facility] Onco RN Member Role: Primary Care Nurse Name: Glen Cota MD Position: [facility] Renal MD Member Role: Lifetime Consulting Physician Address: Address: [address] [place] [address] [facility] [address] Name: Florinda Trinh MD Position: [facility] Primary Care Physician Member Role: PCP Address: Address: [address] [place] [address] Care Team Related Persons Name: JOSE ELIAS TODD Address: [place] [address] Name: JOSE ELIAS KIRKLAND Address: home [address] [place] [id number] Name: LEONIE SCHRADER Address: [place] [address]
--- OUTSIDE RECORDS SUMMARY | 2023-10-23 09:35 | XMS_ITS | Continuity of Care Document ---
Author Organization [facility] Address [address] [place] [id number]- Care Team Providers Care Databases Software Consultant Name Role Phone Massimo Figueroa Primary Care Physician Encounter [facility] Date(s): 09/06/23 - 10/06/23 [facility] [address] [place] [id number]- Attending Physician: Yaya Patino Admitting Physician: Yaya Patino Referring Physician: AdmtrYaya Allergies, Adverse Reactions, Alerts Substance Reaction Severity Status enalapril hyperkalemia Active penicillin RASH Active morphine itchy Active Bactrim 1 hyperkalemia Active Lidocaine, Topical Active 1Hyperkalemia when used together with lisinopril Immunizations Given and Recorded Vaccine Date Status Refusal Reason influenza virus vaccine, inactivated 02/04/23 Give n influenza virus vaccine, inactivated 05/25/22 Give n [...] virus vaccine, inactivated 6 05/06/04 Gi zeny [id number] 12y+ bivalent booster vax 05/25/22 Given zoster vaccine, inactivated 12/08/21 Given zoster vaccine, inactivated 09/15/21 Given SARS-CoV-2 mRNA (voeksny-tvrv-oseaj) vax 09/15/21 Given SARS-CoV-2 (COVID-19) mRNA BNT-162b2 [...] Maintenance, 05/25/22 12:08:00 EST, ER Tablet, [id number], Discontinue Motrin, 158, cm, 05/25/22 11:12:00... Start Date: 05/25/22 Status: Ordered Alcohol Wipes See Instructions, # 400 each, Refills 4, Tot. Refills 4, Maintenance, Use inject insulin and check blood sugar up to 5 times daily. E11.9, IDDM, 11/24/22 16:02:00 EDT, Compound, 158, cm, 11/24/22 8:48:00 EDT, Height, 76, kg, 05/07/22 6:04:00 EST, Dry... Start Date: 11/24/22 Status: Ordered amLODIPine 10 mg oral tablet 10 mg, 1, tablet, By Mouth, Daily, Refills 0, Maintenance, 03/08/23 10:31:00 EST, Partial fill uponpatient request if the prescription is for a schedule II opioid drug. Start Date: 03/08/23 Status: Ordered ammonium lactate 12% topical cream 1 applicator, Topically, 2 times a day, # 280 Gm, 11 Refills, Maintenance, 07/21/21 12:43:00 EDT, [facility]/pharmacy #1026, 1 applicator Topically 2 times a day, 160, cm, 07/21/21 10:22:00 EDT, Height, 80.6, kg, 06/03/20 19:00:00 EST, Dry Weight Start Date: 07/21/21 Status: Ordered Baqsimi Two Pack 3 mg nasal powder = 3 mg, Naris, Right, Once, Please use for a low blood sugar emergency, may repeat in 15 minutes, #1 each, 3 Refills, Soft Stop, 03/09/22 11:35:00 EST, [facility]/pharmacy #0838, 160, cm, 03/09/22 10:43:00EST, Height, 78, kg, 01/14/22 19:37:00 EDT, Dry W... Start Date: 03/09/22 Status: Ordered Biotene Moisturizing Mouth oral spray See Instructions, [place] directly into mouth; spray is safe to swallow as needed for dry mouth, # 45mL, 11 Refills, Maintenance, 05/25/22 12:42:00 EST, [id number], Partial fill upon patient request [...] P.M. NEEDED & 1 TAB AT [facility], # 180 tablet, 1 Refills, Maintenance, 08/05/22 12:49:00 EDT, [facility], 158, cm, 07/12/22 11:54:00 EDT, Height, 76, kg, 05/07/22 6:04:00 ES... Start Date: 08/05/22 Status: Ordered capsaicin 0.025% topical cream 1 application, Topically, 3 times a day, # 35 Gm, 11 Refills, Maintenance, 07/21/21 12:26:00 EDT, Cream, [facility]/pharmacy #1026, 1 application Topically 3 times a [...] 11 Refills, Maintenance, 12/06/21 15:04:00 EDT, Tablet, [facility], Partial fill upon patient request if the prescription is for a schedule II opioid drug., 160, cm, 11/23/21 14:47:00 ED... Start Date: 12/06/21 Status: Ordered esomeprazole 40 mg oral enteric coated capsule See Instructions, TAKE 1 CAPSULE BY MOUTH DAILY 30 MINUTES BEFORE BREAKFAST, # 30 capsule, 2 Refills, Maintenance, 02/02/23 11:24:00 EDT Start Date: 02/02/23 Status: Ordered famotidine 40 mg oral tablet 1 tablet = 40 mg, By Mouth, Daily at bedtime, If 40 mg tablet is not available, can be changed to 20 mg tablet 2 tablet at bedtime, # 90 tablet, 3 Refills, Maintenance, 07/12/21 18:53:00 EDT, Tablet,[facility]/pharmacy #1026, Discontinue 30- day supply presc... Start Date: 07/12/21 Stop Date: 07/07/22 Status: Ordered ferrous sulfate 325 mg oral tablet 1 tablet = 325 mg, By Mouth, Daily, May take with food to minimize abdominal discomfort. Do not take with milk. Take preferrably with juice., # 90 tablet, 3 Refills, Maintenance, 09/15/21 8:56:00 EDT, [facility]/pharmacy #1026, 160, cm, 09/15/21 8:15:00 EDT,... Start [...] Check up to 5 times daily. E11.65, 02/20/23 8:21:00 EST, Compound, 160, cm, 02/04/23 11:08:00 EDT, Height, 78, kg, 02/02/23 18:32:00 EDT, Dry Weight Start Date: 02/20/23 Stop Date: 02/15/24 Status: Ordered Glucose Tablets See Instructions, # [...] tablet, 0 Refills, Maintenance, 07/08/22 9:47:00 EDT, [facility] ST[id number], 158, cm, 06/16/22 11:27:00 EST, Height, 76, kg, 05/07/22 6:04:00 EST, Dry Weight Start Date: 07/08/22 Status: Ordered ketotifen 0.025% ophthalmic solution 1 drops, Eyes, Both, Every 12 hours, PRN as needed for eye allergy, # 7.5 mL, 11 Refills, Maintenance, 06/25/21 8:34:00 EDT, [facility]/pharmacy #1026, 1 drops Eyes, Both Every 12 hours,PRN:as needed for eye allergy, 160, cm, 06/21/21 9:57:00 EDT, Height, 80... Start Date: 06/25/21 Status: Ordered Lancets See Instructions, # 150 each, Refills 11, Tot. Refills 11, Maintenance, use 4 xday for blood sugar testing DM type 2 insulin dependent, hyperglycemia/ hypoglycemia Free Style Lite ICD10 E11.65/E11.649, Z 79.4, Diabetes mellitus type2, 05/01/23 11:26... Start Date: 05/01/23 Status: Ordered levocetirizine 5 mg oral tablet See Instructions, TAKE 1 TABLET BY MOUTH DAILY BEFORE DINNER NEEDED FOR ALLERGIES, # 90 tablet, 0 Refills, Maintenance, 04/18/23 1:50:00 EST, [facility]/pharmacy #0838, 90, TAKE 1 TABLET BY MOUTH DAILY BEFORE DINNER NEEDED FOR ALLERGIES, 160, cm, 03/23... Start Date: 04/18/23 Status: Ordered LORazepam 0.5 mg oral tablet TAKE 1 TABLET BY MOUTH 3 TIMES DAILY NEEDED FOR ANXIETY OR SLEEP Start Date: 11/24/22 Status: Ordered montelukast 10 mg oral tablet See Instructions, LUCIANO MOHAN TOJOSE LOS HDZ AL [facility]STAR[facility], # 90 tablet, Refills 0, Tot. Refills 0, Maintenance, 04/18/23 1:51:00 EST, Instructions Replace Required Details, Route to Pharmacy Electronically, [facility]/pharmacy #0838, 160, cm, 03/23/23 1... Start Date: 04/18/23 Status: Ordered nitroglycerin 0.[address] 1 TABLET UNDER TONGUE EVERY 5 MINS, UP TO 3 DOSES NEEDED FOR CHEST PAIN Start Date: 11/24/22 Status: Ordered Norvasc 5 mg oral tablet 5 mg, 1, tablet, By Mouth, Daily, # 90 tablet, Refills 3, Tot. Refills 3, Maintenance, 03/09/22 11:54:00 EST, Route to Pharmacy Electronically, [facility]/pharmacy #0838, 160, cm, 03/09/22 10:43:00 EST, Height, [...] # 15... Start Date: 11/24/22 Status: Ordered Upy-kez-jgykz medical-grade oxford diabetic shoes, depth or hightop Tjl-vmf-yvpyj medical-grade oxford diabetic shoes, depth or hightop, [...] DOLOR Start Date: 11/24/22 Status: Ordered Pen [place], 32 G x 4 mm BD Ultra [...] 527 Gm,11 Refills, Maintenance, 03/09/22 11:39:00 EST, [facility]/pharmacy #0838, 17- 34 Gm By Mouth Daily,PRN:asneeded for constipation,Instr:(dissolve in water or... Start Date: 03/09/22 Status: Ordered pravastatin 10 mg oral tablet TOME GAGE HALLIEA TODOS LOS D Start Date: 11/24/22 Status: [...] Daily, # 30 tablet, 4 Refills, Maintenance, 05/09/23 10:10:00 EST, Tablet, [facility]/pharmacy #0838, Partial fill upon patient request if the prescription is for a schedule II opioid drug., 160, cm, 05/05/23 10:43:00 EST, Height,... Start Date: 05/09/23 Status: Ordered Trelegy Ellipta inhalation powder TOME GAGE INHALACI N POR V A ORAL TODOS LOS D Start Date: 11/24/22 Status: Ordered Trelegy Ellipta inhalation powder 1 puffs, Inhalation, Daily, at the same time every day, # 60 each, 0 Refills, Maintenance, 01/26/2313:42:00 EDT, Powder, Partial fill upon patient request if the prescription is for a schedule II opioid drug. Start Date: 01/26/23 Status: Ordered Tresiba FlexTouch 100 units/mL subcutaneous solution = 12 units, Subcutaneous Injection, Daily, DOSE DECREASE, # 15 mL, 3 Refills, Maintenance, 02/24/2312:11:00 EST, [facility]/pharmacy #[id number], Partial fill upon patient request if the prescription is for a schedule II opioid drug., 160, cm, 02/04/23 11:08:00 E... Start Date: 02/23/23 Status: Ordered Ventolin HFA 108 mcg/inh inhalation [...] Date: 03/09/22 Stop Date: 06/01/22 Status: Ordered [place] Reusable Bed Pad 34 x 36 [place] Reusable Bed Pad 34 x 36 , [...] Confirmed 12/29/11 Active Hepatitis C Confirmed Active jail current use of opiate analgesic-LBP 12 Confirmed [...] Osteopenia 18, 19, 20 Confirmed 11/16/12 Active *[id number] Classification Case Manager Karine More Confirmed Active Peripheral venous insufficiency [...] 2 peroneal veins diagnosed on Dec 20 [facility] 6insulin dependent 7Per ECHO 05/24/1718 [...] 1 11left mild sensorineural hearing loss by [facility] Hearing Evaluation on 12/29/11 12Narcotic contract w Dr Florinda Trinh 13Per ECHO 2/14/18 Mild concentric left ventricular hypertrophy 14Per ECHO [...] lower parathyroidectomy. 06/16/08 SURGEON: Danny Marie M.D. SUPERVISORY CBP OFFICER: Naima Bowling M.D. 22b/l submassive PE diagnosed on Dec 20 in [facility] 23TTE 12/22/15 in [facility]: RV dilatation, RVSP 46 24Per ECHO 05/24/17 Trace mitral regurgitation , trace TC regurgitation w no significant valve pathology 25meg colo July 2009 exc for 2 hyperplastic polyps 26Colonoscopy 2004 at [facility] [place] per letter of Dr Amor Dobbins Social History Social History Type Response Smoking Status Never (less than 100 in lifetime) entered on: 10/22/20 Sex Patient Care team information Care Team Personnel Name: Massimo Figueroa Position: S Outreach Member Role: PCP Address: Address: [address] [place] [address]- Name: Oneil Ye RN Position: S Outreach Member Role: Primary Care Nurse Name: Diamond Weiss RN Position: S RN Member Role: Primary Care Nurse Name: Tiara Cavazos RN Position: [facility] OB RN Member Role: Primary Care Nurse Name: Shreya Boss RN Position: S RN Member Role: Primary Care Nurse Name: Dhruv Khan RN Position: [facility] RN Member Role: Primary Care Nurse Name: Virginia Benson RN Position: [facility] AMB Nurse Member Role: Primary Care Nurse Name: Glen Cota MD Position: [facility] Renal MD Member Role: Lifetime Consulting Physician Address: Address: [address] [place] [address] [facility] [address] Name: Carole Toro LPN Position: [facility] RN Member Role: Primary Care Nurse Care Team Related Persons Name: JOSE ELIAS TODD Address: [place] [address] Name: JOSE ELIAS KIRKLAND Address: home [address] [place] [id number] Name: LEONIE SCHRADER Address: [place] [address]
--- OUTSIDE RECORDS SUMMARY | 2023-10-23 09:36 | XMS_ITS | Continuity of Care Document ---
Author Organization [facility] Address [address] [place] [id number]- Care Team Providers Care Vessel Master Name Role Phone Massimo Figueroa Primary Care Physician [phone] [place] [facility] [place](s): 05/08/23 - 06/23/[address] [address]- Attending Physician: Massimo Figueroa Admitting Physician: Massimo Figueroa Referring Physician: Massimo Figueroa Allergies, Adverse Reactions, Alerts Substance Reaction Severity Status enalapril hyperkalemia Active penicillin RASH Active Lidocaine, Topical Active [...] virus vaccine, inactivated 6 05/06/04 Gi zeny [id number] 12y+ bivalent booster vax 05/25/22 Given zoster vaccine, inactivated 12/08/21 Given zoster vaccine, inactivated 09/15/21 Given SARS-CoV-2 mRNA ([id number]) vax 09/15/21 Given SARS-CoV-2 (COVID-19) mRNA BNT-162b2 [...] Maintenance, 05/25/22 12:08:00 EST, ER Tablet, [facility], Discontinue Motrin, 158, cm, 05/25/22 11:12:00... Start [...] Gm, 11 Refills, Maintenance, 07/21/21 12:43:00 EDT, [facility]/pharmacy #1026, 1 applicator Topically 2 times a day, 160, cm, 07/21/21 10:22:00 EDT, Height, 80.6, kg, 06/03/20 19:00:00 EST, Dry Weight Start Date: 07/21/21 Status: Ordered Baqsimi Two Pack 3 mg nasal powder = 3 mg, Naris, Right, Once, Please use for a low blood sugar emergency, may repeat in 15 minutes, #1 each, 3 Refills, Soft Stop, 03/09/22 11:35:00 EST, [facility]/pharmacy #0838, 160, cm, 03/09/22 10:43:00EST, Height, 78, kg, 01/14/22 19:37:00 EDT, Dry W... Start Date: 03/09/22 Status: Ordered Biotene Moisturizing Mouth oral spray See Instructions, [place] directly into mouth; spray is safe to [...] P.M. NEEDED & 1 TAB AT [facility], # 180 tablet, 1 Refills, Maintenance, 08/05/22 12:49:00 EDT, [facility], 158, cm, 07/12/22 11:54:00 EDT, Height, 76, kg, 05/07/22 6:04:00 ES... Start Date: 08/05/22 Status: Ordered capsaicin 0.025% topical cream 1 application, Topically, 3 times a day, # 35 Gm, 11 Refills, Maintenance, 07/21/21 12:26:00 EDT, Cream, [facility]pharm[facility] #1026, 1 application Topically 3 times a [...] 11 Refills, Maintenance, 12/06/21 15:04:00 EDT, Tablet, [facility], Partial fill upon patient [...] tablet, 3 Refills, Maintenance, 07/12/21 18:53:00 EDT, Tablet,[facility], Discontinue 30- day supply presc... Start Date: 07/12/21 Stop Date: 07/07/22 Status: Ordered ferrous sulfate 325 mg oral tablet 1 tablet = 325 mg, By Mouth, Daily, May take with food to minimize abdominal discomfort. Do not take with milk. Take preferrably with juice., # 90 tablet, 3 Refills, Maintenance, 09/15/21 8:56:00 EDT, [facility]pharm[facility] #1026, 160, cm, 09/15/21 8:15:00 EDT,... Start [...] Refills, Maintenance, 07/08/22 9:47:00 EDT, [facility], 158, cm, 06/16/22 11:27:00 EST, Height, 76, kg, 05/07/22 6:04:00 EST, Dry Weight Start Date: 07/08/22 Status: Ordered ketotifen 0.025% ophthalmic solution 1 drops, Eyes, Both, Every 12 hours, PRN as needed for eye allergy, # 7.5 mL, 11 Refills, Maintenance, 06/25/21 8:34:00 EDT, [facility]pharm[facility] #1026, 1 drops Eyes, Both Every 12 [...] tablet, 0 Refills, Maintenance, 04/18/23 1:50:00 EST, [facility]/pharm[facility] #0838, 90, TAKE 1 TABLET BY MOUTH DAILY BEFORE DINNER NEEDED FOR ALLERGIES, 160, cm, 03/23... Start Date: 04/18/23 Status: Ordered LORazepam 0.5 mg oral tablet TAKE 1 TABLET BY MOUTH 3 TIMES DAILY NEEDED FOR ANXIETY OR SLEEP Start Date: 11/24/22 Status: Ordered montelukast 10 mg oral tablet See Instructions, [facility]CIANO BURNS [facility], # 90 tablet, Refills 0, Tot. Refills 0, Maintenance, 04/18/23 1:51:00 EST, Instructions Replace Required Details, Route to Pharmacy Electronically, [facility]pharm[facility] #0838, 160, cm, 03/23/23 1... Start Date: [...] 03/09/22 11:54:00 EST, Route to Pharmacy Electronically, [facility]/pharm[facility] #0838, 160, cm, 03/09/22 10:43:00 EST, Height, [...] # 15... Start Date: 11/24/22 Status: Ordered Erg-dsf-hmfii medical-grade oxford diabetic shoes, depth or hightop Mof-wrd-oyppr medical-grade oxford diabetic shoes, depth or hightop, [...] DOLOR Start Date: 11/24/22 Status: Ordered Pen [place], 32 G x 4 mm BD Ultra [...] 10 mg oral tablet TOME GAGE TABLETA TOS LOS D Start Date: 11/24/22 Status: Ordered [...] 4 Refills, Maintenance, 05/09/23 10:10:00 EST, Tablet, [facility]/pharm[facility] #0838, Partial fill upon patient request if [...] 15 mL, 3 Refills, Maintenance, 02/24/2312:11:00 EST, [facility], Partial fill upon patient [...] Gm, 5 Refills, Maintenance, 03/09/22 11:55:00 EST, [facility]pharm[facility] #0838, 2 Gm Topically 4 times a day,x14 days, 160, cm, 03/09/22 10:43:00 EST, Height, 78, kg, 01/14/22 19:37:00 EDT, Dry Weight Start Date: 03/09/22 Stop Date: 06/01/22 Status: Ordered Elaine Reusable Bed Pad 34 x 36 Elaine Reusable Bed Pad 34 x 36 , [...] Confirmed 12/29/11 Active 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 06/16/08 SURGEON: Danny Marie M.D. SOCCER COMMENTATOR: Naima Bowling M.D. 22b/l submassive PE diagnosed on Dec 20 in [facility] 23TTE 12/22/15 in [facility]: RV dilatation, RVSP 46 24Per ECHO 05/24/17 Trace mitral regurgitation , trace TC regurgitation w no significant valve pathology 25meg colo July 2009 exc for 2 hyperplastic polyps 26Colonoscopy 2004 at [facility] [place] [facility] per letter of Dr Amor Dobbins Social History Social History Type Response Smoking Status Never (less than 100 in lifetime) entered on: 10/22/20 Sex Patient Care team information Care Team Personnel Name: Massimo Figueroa Position: [facility] Outreach Member Role: PCP Address: Address: [address] [place] [address] Name: Oneil Ye RN Position: S Outreach Member Role: Primary Care Nurse Name: Diamond Weiss RN Position: S RN Member Role: Primary Care Nurse Name: Tiara Cavazos RN Position: [facility] OB RN Member Role: Primary Care Nurse Name: Shreya Boss RN Position: [facility] RN Member Role: Primary Care Nurse Name: Dhruv Khan RN Position: [facility] RN Member Role: Primary Care Nurse Name: Virginia Bensno RN Position: [facility] SN RN Member Role: Primary Care Nurse Name: Jaylin Hernandez RN Position: [facility] Onco RN Member Role: Primary Care Nurse Name: Glen Cota MD Position: [facility] Renal MD Member Role: Lifetime Consulting Physician Address: Address: [address] [place] [address] [facility] [address] Name: Carole Toro LPN Position: [facility] RN Member Role: Primary Care Nurse Care Team Related Persons Name: JOSE ELIAS TODD Address: [place] [address] Name: JOSE ELIAS KIRKLAND Address: home [address] [place] [id number] Name: LEONIE SCHRADER Address: [place] [address]
--- OUTSIDE RECORDS SUMMARY | 2023-10-23 09:36 | XMS_ITS | Continuity of Care Document ---
Author Organization [facility] Address Unknown Care Team Providers Care Grocery Store Courtesy Clerk Name Role Phone Gayathri GARZA, Florinda Primary Care Physician Encounter [facility] [place] Date(s): 04/29/21 - 05/29/21 [facility] Allergies, Adverse Reactions, Alerts Substance Reaction Severity [...] or fever, (not to exceed 2000 mg/day) pitcairn islander, # 100 tablet, 11 Refills, Maintenance, 04/28/21 13:24:00 EST, [facility]/pharmacy #1026, 160, cm, 04/28/21 9:50:00 EST, Height, [...] Gm, 11 Refills, Maintenance, 01/27/20 19:13:00 EDT, [facility]/pharmacy #1026, 1 applicator Topically 2 times a [...] 11 Refills, Maintenance, 02/10/20 11:22:00 EST, Cream, [facility]/pharmacy #1026, 1 application Topically 3 times a [...] 11 Refills, Maintenance, 04/21/21 18:12:00 EST, Tablet, [facility]/pharmacy #1026, 160, cm, 03/03/21 11:23:00 EST, Height, 80.6, kg, 06/03/20 19:00:00 EST, Dry Weight Start Date: 04/21/21 Status: Ordered escitalopram 20 mg oral tablet 1 tablet = 20 mg, By Mouth, Daily, Discontinue duloxetine 60 mg, # 30 tablet, 11 Refills, Maintenance, 12/09/20 11:15:00 EDT, Tablet, [facility]/pharmacy #1026, Partial fill upon patient request if [...] tablet, 3 Refills, Maintenance, 06/30/20 14:55:00 EDT, Tablet,[facility]/pharmacy #1026, Discontinue 30- day supply presc... Start [...] 04/28/21 14:34:00 EST, Route to Pharmacy Electronically, [facility]/pharmacy #1026, Can use with HCTZ, 160, cm, [...] capsule, 3 Refills, Maintenance, 10/22/20 10:35:00 EDT, [facility]/pharmacy #1026, 160, cm, 10/22/20 9:15:00 EDT, Height, 80.6, kg, 06/03/20 19:00:00 EST, Dry Weight Start Date: 10/22/20 Stop Date: 10/17/21 Status: Ordered ketotifen 0.025% ophthalmic solution 1 drops, Eyes, Both, Every 12 hours, PRN as needed for eye allergy, # 7.5 mL, 11 Refills, Maintenance, 01/27/20 19:13:00 EDT, [facility]/pharmacy #1026, 1 drops Eyes, Both Every 12 [...] 78.8, kg,... Start Date: 01/21/20 Status: Ordered Sjh-ayu-ysfsq medical-grade oxford diabetic shoes, depth or hightop Bne-mzh-owqze medical-grade oxford diabetic shoes, depth or hightop, [...] dispense not earlier than 05/17/21 Please dispense KVTek brand (K18) If oxycodone [...] 07/12/21 Stop Date: 08/09/21 Status: Ordered Pen [place], 32 G x 4 mm BD Ultra [...] 04/28/21 14:02:00 EST, Route to Pharmacy Electronically, [facility]/pharmacy #1026, 160... Start Date: 04/28/21 Stop Date: [...] 527 Gm,11 Refills, Maintenance, 01/27/20 19:13:00 EDT, [facility]/pharmacy #1026, 17- 34 Gm By Mouth Daily,PRN:asneeded [...] 11 Refills, Maintenance, 04/28/21 14:03:00 EST, Tablet, [facility]/pharmacy #1026, 160, cm, 04/28/21 9:50:00 EST, Height, 80.6, kg, 06/03/20 19:00:00 EST, Dry Weight Start Date: 04/28/21 Status: Ordered Senna-Time 8.6 mg oral tablet 2 tablet, By Mouth, 2 times a day, PRN NEEDED FOR CONSTIPATION,INSTR, DISCONTINUE DOCUSATE, # 60tablet, 11 Refills, [facility], 160, cm, 03/03/21 11:23:00 EST, Height, 80.6, [...] 02/22/21 17:50:00 EST, Route to Pharmacy Electronically, [facility]/pharmacy #1026, 1... Start Date: 02/22/21 Status: Ordered [...] 02/15/21 11:39:00 EST, Route to Pharmacy Electronically, [facility]/pharmacy #1026,Partial fill upon patient request if the prescrip... 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 06/16/08 SURGEON: Danny Marie M.D. CALENDERING MACHINE OPERATOR: Naima Bowling M.D. 21b/l submassive PE diagnosed on Dec 20 in [facility] 22TTE 12/22/15 in [facility]: RV dilatation, RVSP 46 23Per ECHO 05/24/17 Trace mitral regurgitation , trace TC regurgitation w no significant valve pathology 24meg colo July 2009 exc for 2 hyperplastic polyps 25Colonoscopy 2004 at [facility] [place] per letter of Dr Amor Dobbins Social History Social History Type Response Smoking Status Never (less than 100 in lifetime) entered on: 10/22/20 Sex
--- OUTSIDE RECORDS SUMMARY | 2023-10-23 09:36 | XMS_ITS | Continuity of Care Document ---
Author Organization [facility] Address [address] [place] [address]- Care Team Providers Care Baby Nurse Name Role Phone Massimo Figueroa Primary Care Physician [phone] Encounter [facility] Date(s): 07/11/23 - 10/06/23 [facility] [address] [place] [address]- Attending Physician: Mulu Merrill MD Admitting Physician: Mulu Merrill MD Allergies, Adverse Reactions, Alerts Substance Reaction [...] virus vaccine, inactivated 6 05/06/04 Gi zeny [id number] 12y+ bivalent booster vax 05/25/22 Given zoster vaccine, inactivated 12/08/21 Given zoster vaccine, inactivated 09/15/21 Given SARS-CoV-2 mRNA (dbvniwa-lhgk-ojhuj) vax 09/15/21 Given SARS-CoV-2 (COVID-19) mRNA BNT-162b2 [...] by melissa craft 6Admin Note: ADMINISTERED BY RYoana 7Result Comment: [...] Maintenance, 05/25/22 12:08:00 EST, ER Tablet, [facility], Discontinue Motrin, 158, cm, 05/25/22 11:12:00... Start [...] 11 Refills, Maintenance, 07/21/21 12:43:00 EDT, [facility]/pharmacy #1026, 1 applicator Topically 2 times a day, 160, cm, 07/21/21 10:22:00 EDT, Height, 80.6, kg, 06/03/20 19:00:00 EST, Dry Weight Start Date: 07/21/21 Status: Ordered Baqsimi Two Pack 3 mg nasal powder = 3 mg, Naris, Right, Once, Please use for a low blood sugar emergency, may repeat in 15 minutes, #1 each, 3 Refills, Soft Stop, 03/09/22 11:35:00 EST, [facility]/pharmacy #0838, 160, cm, 03/09/22 10:43:00EST, Height, 78, kg, 01/14/22 19:37:00 EDT, Dry W... Start Date: 03/09/22 Status: Ordered Biotene Moisturizing Mouth oral spray See Instructions, [place] directly into mouth; spray is safe to [...] P.M. NEEDED & 1 TAB AT [facility], # 180 tablet, 1 Refills, Maintenance, 08/05/22 12:49:00 EDT, [facility], 158, cm, 07/12/22 11:54:00 EDT, Height, 76, kg, 05/07/22 6:04:00 ES... Start Date: 08/05/22 Status: Ordered capsaicin 0.025% topical cream 1 application, Topically, 3 times a day, # 35 Gm, 11 Refills, Maintenance, 07/21/21 12:26:00 EDT, Cream, [facility]/pharmacy #1026, 1 application Topically 3 times [...] 3 Refills, Maintenance, 07/12/21 18:53:00 EDT, Tablet,[facility], Discontinue 30- day supply presc... Start Date: 07/12/21 Stop Date: 07/07/22 Status: Ordered ferrous sulfate 325 mg oral tablet 1 tablet = 325 mg, By Mouth, Daily, May take with food to minimize abdominal discomfort. Do not take with milk. Take preferrably with juice., # 90 tablet, 3 Refills, Maintenance, 09/15/21 8:56:00 EDT, [facility]/pharmacy #1026, 160, cm, 09/15/21 8:15:00 EDT,... [...] tablet, 0 Refills, Maintenance, 07/08/22 9:47:00 EDT, [facility], 158, cm, 06/16/22 11:27:00 EST, Height, 76, kg, 05/07/22 6:04:00 EST, Dry Weight Start Date: 07/08/22 Status: Ordered ketotifen 0.025% ophthalmic solution 1 drops, Eyes, Both, Every 12 hours, PRN as needed for eye allergy, # 7.5 mL, 11 Refills, Maintenance, 06/25/21 8:34:00 EDT, [facility]/pharmacy #1026, 1 drops Eyes, Both Every [...] tablet, 0 Refills, Maintenance, 04/18/23 1:50:00 EST, [facility]/pharmacy #0838, 90, TAKE 1 TABLET BY MOUTH DAILY BEFORE DINNER NEEDED FOR ALLERGIES, 160, cm, 03/23... Start Date: 04/18/23 Status: Ordered LORazepam 0.5 mg oral tablet TAKE 1 TABLET BY MOUTH 3 TIMES DAILY NEEDED FOR ANXIETY OR SLEEP Start Date: 11/24/22 Status: Ordered montelukast 10 mg oral tablet See Instructions, [facility]CIANO M[facility]AN [facility], # 90 tablet, Refills 0, Tot. Refills 0, Maintenance, 04/18/23 1:51:00 EST, Instructions Replace Required Details, Route to Pharmacy Electronically, [facility]/pharmacy #0838, 160, cm, 03/23/23 1... Start Date: [...] 03/09/22 11:54:00 EST, Route to Pharmacy Electronically, [facility]/pharmacy #0838, 160, cm, 03/09/22 10:43:00 EST, [...] # 15... Start Date: 11/24/22 Status: Ordered Dew-jfc-txsrz medical-grade oxford diabetic shoes, depth or hightop Xxs-rez-oycwl medical-grade oxford diabetic shoes, depth or hightop, [...] DOLOR Start Date: 11/24/22 Status: Ordered Pen [place], 32 G x 4 mm BD Ultra [...] Gm,11 Refills, Maintenance, 03/09/22 11:39:00 EST, [facility]/pharmacy #0838, 17- 34 Gm By Mouth [...] tablet, 11 Refills, Maintenance, 03/09/22 11:39:00 EST, [facility], 160, cm, 03/09/22 10:43:00 EST, Height, [...] 4 Refills, Maintenance, 05/09/23 10:10:00 EST, Tablet, [facility]/pharmacy #0838, Partial fill upon patient request [...] 15 mL, 3 Refills, Maintenance, 02/24/2312:11:00 EST, 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 06/16/08 SURGEON: Danny Marie M.D. WATER RESTORATION TECHNICIAN: Naima Bowling M.D. 22b/l submassive PE diagnosed on Dec 20 in [facility] 23TTE 12/22/15 in [facility]: RV dilatation, RVSP 46 24Per ECHO 05/24/17 Trace mitral regurgitation , trace TC regurgitation w no significant valve pathology 25meg colo July 2009 exc for 2 hyperplastic polyps 26Colonoscopy 2004 at [facility] [place] per letter of Dr Amor Dobbins Social History Social History Type Response Smoking Status Never (less than 100 in lifetime) entered on: 10/22/20 Sex Patient Care team information Care Team Personnel Name: Massimo Figueroa Position: S Outreach Member Role: PCP Address: Address: [address] [place] [address] Name: Oneil Ye RN Position: [facility] Outreach Member Role: Primary Care Nurse Name: Diamond Weiss RN Position: S RN Member Role: Primary Care Nurse Name: Tiara Cavazos RN Position: [facility] OB RN Member Role: Primary Care Nurse Name: Shreya Boss RN Position: S RN Member Role: Primary Care Nurse Name: Dhruv Khan RN Position: [facility] RN Member Role: Primary Care Nurse Name: Virginia Benson RN Position: [facility] AMB Nurse Member Role: Primary Care Nurse Name: Glen Cota MD Position: [facility] Renal MD Member Role: Lifetime Consulting Physician Address: Address: [address] [place] [address] [facility] [address] Name: Carole Toro LPN Position: [facility] RN Member Role: Primary Care Nurse Care Team Related Persons Name: JOSE ELIAS TODD Address: [place] [address] Name: JOSE ELIAS KIRKLAND Address: home [address] [place] [id number] Name: LEONIE SCHRADER Address: [place] [address]
--- OUTSIDE RECORDS SUMMARY | 2023-10-23 09:36 | XMS_ITS | Continuity of Care Document ---
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 [employer] Name Role Phone Gayathri GARZA, Florinda Primary Care Physician [facility]counter [facility] Date(s): 05/04/20 - 06/03/20 [facility] [address], [place] [address] Allergies, Adverse Reactions, Alerts Substance Reaction Severity Status penicillin RASH Active morphine itchy Active Lidocaine, Topical Active Immunizations Given and Recorded Vaccine Date Status Refusal Reason SARS-CoV-2 (COVID-19) mRNA BNT-162b2 vac 1 05/21/20 Given influenza virus vaccine, inactivated 02/25/20 Give n influenza virus vaccine, inactivated 01/16/19 Give n influenza virus vaccine, inactivated 01/17/18 Give n influenza virus vaccine, inactivated 01/04/17 Give n influenza virus vaccine, inactivated 2 03/04/15 Gi zeny influenza virus vaccine, inactivated 01/22/14 Give n influenza virus vaccine, inactivated 01/09/13 Give n influenza virus vaccine, inactivated 3 01/31/11 Gi zeny influenza virus vaccine, inactivated 4 02/01/10 Gi zeny influenza virus vaccine, inactivated 5 12/30/08 Gi zeny influenza virus vaccine, inactivated 6 02/09/06 Gi zeny influenza virus vaccine, inactivated 7 05/06/04 Gi zeny pneumococcal 13-valent vaccine 8 05/12/14 Given tetanus/diphtheria/pertussis, acel(Tdap) 9 05/12/14 Given Zoster Vaccine Live 10 10/16/12 Given pneumococcal 23-valent vaccine 11 11/10/10 Given pneumococcal 23-valent vaccine 12 05/20/04 Given tetanus-diphtheria toxoids (Td) 13 11/10/10 Given 1Result Comment: Given by Leonie Garcia RN 2Result Comment: [03/04/2015] ORDERED BY DR. HAWK 3Admin Note: vis 11/02/2010 4Admin Note: given by ELLIOTT HEWITT. 5Admin Note: MELISSA CHIU RN 6Admin Note: administered by melissa chiu 7Admin Note: ADMINISTERED BY RYoana 8Result Comment: [05/13/2014] Ordered by Kendall 9Result Comment: [05/13/2014] Ordered by Kendall 10Result Comment: [10/16/2012] ORDERED BY 11Admin Note: VIS 01/13/09 GIVEN 12Admin Note: ADMINISTERED BY RN 13Admin Note: VIS 02/26/08 GIVEN Medications acetaminophen 500 mg oral tablet 2 tablet = 1,000 mg, By Mouth, Every 6 hours, PRN as needed for pain or fever, (not to exceed 2000 mg/day) welsh, # 100 tablet, 5 Refills, Maintenance, 01/22/20 9:18:00 EDT, [facility]/pharmacy #[id number], 167, cm, 01/13/20 8:54:00 EDT, [...] mL, Refills 1, Tot. Refills 1, Maintenance, 02/10/20 10:18:00 EST, Supply, 167, cm, 01/13/20 8:54:00 EDT, Height, 78.8, kg, 01/01/20 3:41:00 EDT, Dry Weight Start Date: 02/10/20 Stop Date: 02/28/20 Status: Ordered calcium (as citrate)-vitamin D 315 mg-250 intl units oral tablet 2 tablet, By Mouth, 2 times a day, for 30 days, calcium citrate, # 120 tablet, 11 Refills, Hard Stop 01/21/21 19:13:00 EDT, 01/27/20 19:13:00 EDT, Tablet, [facility]/pharmacy #1026, 167, cm, 01/13/20 8:54:00 EDT, Height, 78.8, kg, 01/01/20 3:41:00 EDT, Dry... Start Date: 01/27/20 Stop Date: 01/21/21 Status: Ordered capsaicin 0.025% topical cream 1 application, Topically, 3 times a day, # 90 Gm, 11 Refills, Maintenance, 02/10/20 11:22:00 EST, Cream, [facility]/pharmacy #1026, 1 application Topically 3 times [...] Maintenance, 01/27/20 19:13:00 EDT, EC Capsule, [facility]/pharmacy #1026, 167, cm, 01/13/20 8:54:00 EDT, Height, 78.8, kg, 01/01/20 3:41:00 EDT, Dry Weight Start Date: 01/27/20 Status: Ordered Eliquis 5 mg oral tablet 1 tablet = 5 mg, By Mouth, 2 times a day, # 60 tablet, 11 Refills, Maintenance, 02/10/20 11:22:00 EST, Tablet, [facility]/pharmacy #1026, 167, cm, 01/13/20 8:54:00 EDT, Height, 78.8, kg, 01/01/20 3:41:00 EDT, Dry Weight Start Date: 02/10/20 Status: Ordered enalapril 10 mg oral tablet 10 mg, 1, tablet, By Mouth, Daily, discontinue hydrochlorothiazide, # 30 tablet, Refills 11, Tot. Refills 11, Maintenance, 04/29/20 13:04:00 EST, Route to Pharmacy Electronically, [facility]/pharmacy #1026,167, cm, 04/29/20 9:24:00 EST, Height, 82, kg, ... Start Date: 04/29/20 Status: Ordered famotidine 40 mg oral tablet 1 tablet = 40 mg, By Mouth, Daily at bedtime, If 40 mg tablet is not available, can change to 20 mgtablet 2 tablet at bedtime, # 30 tablet, 2 Refills, Maintenance, 04/04/20 16:07:00 EST, Tablet, [facility]/pharmacy #1026, 167, cm, 02/24/20 17:04:00 EST, Hei... Start Date: 04/04/20 Status: Ordered ferrous sulfate 325 mg oral tablet 1 tablet = 325 mg, By Mouth, Daily, May take with food to minimize abdominal discomfort. Do not take with milk. Take preferrably with juice., # 90 tablet, 2 Refills, Maintenance, 01/22/20 9:38:00 EDT, [facility]/pharmacy #1026, 167, cm, 01/13/20 8:54:00 EDT,... Start [...] capsule, 4 Refills, Maintenance, 01/22/20 9:39:00 EDT, [facility]/pharmacy #1026, 167, cm, 01/13/20 8:54:00 EDT, Height, 78.8, kg, 01/01/20 3:41:00 EDT, Dry Weight Start Date: 01/22/20 Stop Date: 06/20/20 Status: Ordered ketotifen 0.025% ophthalmic solution 1 drops, Eyes, Both, Every 12 hours, PRN as needed for eye allergy, # 7.5 mL, 11 Refills, Maintenance, 01/27/20 19:13:00 EDT, [facility]/pharmacy #1026, 1 drops Eyes, Both Every [...] 9:41:00 EDT, Route to Pharmacy Electronically, [facility]/pharmacy #1026, 167, cm, 01/13/20 8:54:00 EDT, Height, 78... Start Date: 01/22/20 Status: Ordered NovoLOG FlexPen 100 units/mL subcutaneous solution See Instructions, Inject up to 26 untis via Insulin sliding scale 3x a day w/meals,MAX daily dose 78 units, E11.65, # 45 mL, 6 Refills, Maintenance, 01/21/20 14:30:00 EDT, [facility]/pharmacy #1026, 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 Start Date: 01/21/20 Status: Ordered Urz-wsb-[id number] medical-grade oxford diabetic shoes, depth or hightop Msi-nhu-nbklr medical-grade oxford diabetic shoes, depth or hightop, [...] days, PRN pain dispense not earlier than 05/15/20, #168 tablet, Refills 0, Tot. Refills 0, Acute 06/12/20 10:25:00 EST, 05/15/20 10:25:00 EST, Route toPharmacy Electronically, [facility]/pharmacy #1026, Parti... Start Date: 05/15/20 Stop Date: 06/12/20 Status: Ordered oxyCODONE 5 mg oral tablet 5 mg, 1, tablet, By Mouth, Every 4 hours, for 28 days, PRN pain dispense not earlier than 06/12/20, #168 tablet, Refills 0, Tot. Refills 0, Acute 07/10/20 10:25:00 EDT, 06/12/20 10:25:00 EST, Route toPharmacy Electronically, [facility]/pharmacy #1026, Parti... Start Date: 06/12/20 Stop Date: 07/10/20 Status: Ordered oxyCODONE 5 mg oral tablet 5 mg, 1, tablet, By Mouth, Every 4 hours, for 28 days, PRN pain dispense not earlier than 07/10/20, #168 tablet, Refills 0, Tot. Refills 0, Acute 08/07/20 10:25:00 EDT, 07/10/20 10:25:00 EDT, Route toPharmacy Electronically, [facility]/pharmacy #1026, Parti... Start Date: 07/10/20 Stop Date: 08/07/20 Status: Ordered Pen [place], 32 G x 4 mm BD Ultra [...] Gm,11 Refills, Maintenance, 01/27/20 19:13:00 EDT, [facility]/pharmacy #1026, 17- 34 Gm By Mouth [...] 02/10/20 11:22:00 EST, Route to Pharmacy Electronically, [facility]/pharmacy #1026 Tablet, 167, cm, 01/13/20 8:5... [...] 05/01/20 9:28:00 EST, Route to Pharmacy Electronically, [facility]/pharmacy #1026, 167,... Start Date: 05/01/20 Status: Ordered TENS electrode pads TENS electrode pads, See Instructions, # 1 box, Refills 5, Tot. Refills 5, Maintenance, use as directed for back pain Dx LBP M54.9 1 box of 4, 12/06/16 14:59:01, Compound Start Date: 12/06/16 Status: Ordered Trelegy Ellipta inhalation powder 1 puffs, Inhalation, Daily, at the same time every day given by acid pumper , Dr Berkowitz, # 60 each, 0 Refills, Maintenance, 11/20/19 13:03:00 EDT, Powder Start Date: 11/20/19 Status: Ordered Tresiba FlexTouch 200 units/mL subcutaneous solution See Instructions, Inject 86 units daily at 9pm, E11.65, # 45 mL, 6 Refills, Maintenance, 01/21/20 14:30:00 EDT, [facility]/pharmacy #1026, 167, cm, 01/13/20 8:54:00 EDT, [...] Dry Weight Start Date: 04/15/20 Status: Ordered Bentley Reusable Bed Pad 34 x 36 Bentley Reusable Bed Pad 34 x 36 , [...] abnormal(Confirmed) 11 12/29/11 Active Hepatitis C(Confirmed) Active long term current use of opi ate analgesic-LBP(Confirmed) 12 [...] apnea)(Confirmed) Active Osteopenia(Confirmed) 18, 19 11/16/12 Active *[id number] [facility] Partn Karine [place](Confirmed) Active Peripheral venous insufficiency(Confirmed) 10/31/11 Active Positive [...] peroneal veins diagnosed on Dec 20 [facility] 6insulin dependent 7Per ECHO 05/24/1718 Grade I, mild diastolic dysfunction with impaired LV relaxation, which may be normal for the patient's age. 8endoscopy 10/05/2018 w non bleeding grade 1 esophageal varices 9EGD on 06/24/16 by GI, Dr Damien caballero gastritis and esophageal varices grade 1 10EGD on 06/24/16 by GI, Dr Bernanrd Mu w gastritis and esophageal varices grade 1 11left mild sensorineural hearing loss by [facility] Hearing Evaluation on 12/29/11 12Narcotic contract [...] lower parathyroidectomy. 06/16/08 SURGEON: Danny Marie M.D. HOT STRIP MILL SUPERVISOR: Naima Bowling M.D. 21b/l submassive PE diagnosed on Dec 20 in [facility] 22TTE 12/22/15 in [facility]: RV dilatation, RVSP 46 23Per ECHO 05/24/17 Trace mitral regurgitation , trace TC regurgitation w no significant valve pathology 24meg colo July 2009 exc for 2 hyperplastic polyps 25Colonoscopy 2004 at [facility] [place] per letter of Dr Amor Dobbins Social History Social History Type Response Smoking Status Never (less than 100 in lifetime) entered on: 04/29/20 Sex
--- OUTSIDE RECORDS SUMMARY | 2023-10-23 09:36 | XMS_ITS | Continuity of Care Document ---
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 Name Role Phone Gayathri GARZA, Florinda Primary Care Physician [facility] Date(s): 01/17/22 - 02/16/22 [facility] [address] [place] [address]- Allergies, Adverse Reactions, Alerts Substance Reaction Severity Status penicillin RASH Active morphine itchy Active Bactrim 1 hyperkalemia Active Lidocaine, Topical Active 1Hyperkalemia when used together with lisinopril Immunizations Given and Recorded Vaccine Date Status Refusal Reason zoster vaccine, inactivated 12/08/21 Given zoster vaccine, inactivated 09/15/21 Given SARS-CoV-2 mRNA ([id number]) vax 09/15/21 Given SARS-CoV-2 (COVID-19) mRNA BNT-162b2 [...] HEIDY 14Admin Note: VIS 02/26/08 GIVEN Medications acetaminophen-hydrocodone 300 mg-7.5 mg oral tablet 2 tablet, By Mouth, Every 8 hours, for 28 days, for pain fill date Feb 16, 2022 Dx Chronic LBP, renal colic, # 168 tablet, 0 Refills, Acute 03/16/22 13:10:00 EST, 02/16/22 13:10:00 EST, Tablet, [facility], Partial greyson... Start Date: 02/16/22 Stop Date: 03/16/22 Status: Ordered ALCOHOL 70% PREP PADS ALCOHOL [...] Date: 04/28/21 Stop Date: 04/23/22 Status: Ordered busPIRone 15 mg oral tablet See Instructions, PRN Anxiety, 1/3- 1/2 half tablet in the morning and in p.m. as needed for anxiety and 1tab at HS oiylis-lsm-iorzi, # 60 tablet, 11 Refills, Maintenance, 09/15/21 9:02:00 EDT, [facility], Partial fill upon patient request... Start Date: 09/15/21 Status: Ordered capsaicin 0.025% topical cream 1 application, Topically, 3 times a day, # 35 Gm, 11 Refills, Maintenance, 07/21/21 12:26:00 EDT, Cream, [facility]/pharmacy #1026, 1 application Topically 3 times [...] 11 Refills, Maintenance, 04/21/21 18:12:00 EST, Tablet, [facility]/pharmacy #1026, 160, cm, 03/03/21 11:23:00 EST, Height, 80.6, kg, 06/03/20 19:00:00 EST, Dry Weight Start Date: 04/21/21 Status: Ordered escitalopram 20 mg oral tablet 1 tablet = 20 mg, By Mouth, Daily, # 30 tablet, 11 Refills, Maintenance, 12/06/21 15:04:00 EDT, Tablet, [facility], Partial fill upon patient [...] tablet, 3 Refills, Maintenance, 07/12/21 18:53:00 EDT, Tablet,[facility], Discontinue 30- day supply presc... [...] Dry Weight Start Date: 02/02/21 Status: Ordered FREESTYLE LITE TEST STRIP FREESTYLE [...] 04/28/21 14:34:00 EST, Route to Pharmacy Electronically, [facility]/pharmacy #1026, Can use with HCTZ, 160, [...] = 12.5 mg, By Mouth, Daily, # 90 capsule, 3 Refills, Maintenance, 11/19/21 14:28:00 EDT, [facility]/pharmacy #1026, 160, cm, 11/05/21 9:50:00 EDT, Height, 80.5, kg, 11/05/21 9:50:00 EDT, Dry Weight Start Date: 11/19/21 Stop Date: 11/14/22 Status: Ordered ketotifen 0.025% ophthalmic solution 1 drops, Eyes, Both, Every 12 hours, PRN as needed for eye allergy, # 7.5 mL, 11 Refills, Maintenance, 06/25/21 8:34:00 EDT, [facility]/pharmacy #1026, 1 drops Eyes, Both Every 12 hours,PRN:as needed for eye allergy, 160, cm, 06/21/21 9:57:00 EDT, Height, 80... Start Date: 06/25/21 Status: Ordered ketotifen 0.025% ophthalmic solution 1 drops, Eyes, Both, Every 12 hours, # 5 mL, 0 Refills, Maintenance, 01/14/22 18:15:00 EDT, Ophth Solution, Partial fill upon patient request if the prescription is for a schedule II opioid drug. Start Date: 01/14/22 Status: Ordered Lancets See Instructions, # 150 each, Refills 11, Tot. Refills 11, Maintenance, use 4 xday for blood sugar testing DM type 2 insulin dependent, hyperglycemia/ hypoglycemia Free Style Lite ICD10 E11.65/E11.649, Z 79.4, Diabetes mellitus type2, 04/28/21 19:12... Start Date: 04/28/21 Status: Ordered levocetirizine 5 mg oral tablet See Instructions, TOME GAGE TABLETA POR VIA ORAL TODOS LOS HDZ, # 90 tablet, 1 Refills, [facility] STORE [id number], 90, TOME GAGE TABLETA POR VIA ORAL TODOS LOS HDZ, 160, cm, 09/21/21 8:54:00 EDT, Height, 80.6,kg, 06/03/20 19:00:00 EST, Dry Weight Start Date: 10/13/21 Status: Ordered MiraLax = 17 Gm, By Mouth, Daily, 0 Refills, Maintenance, 02/01/22 16:17:00 EDT, Partial fill upon patient request if the prescription is for a schedule II opioid drug. Start Date: 02/01/22 Status: Ordered montelukast 10 mg oral tablet 10 mg, 1, tablet, By Mouth, Daily, Refills 0, Maintenance, 02/01/22 16:16:00 EDT, Partial fill uponpatient request if the prescription is for a schedule II opioid drug. Start Date: 02/01/22 Status: Ordered Nexium 40 mg oral enteric coated capsule 1 capsule = 40 mg, By Mouth, Daily, 30 minutes before breakfast, # 30 capsule, 11 Refills, Maintenance, 04/28/21 14:00:00 EST, [facility]/pharmacy #1026, Discontinue pantoprazole, 160, cm, 04/28/21 9:50:00 EST, Height, 80.6, kg, 06/03/20 19:00:00 EST, Dry We... Start Date: 04/28/21 Stop Date: 04/23/22 Status: Ordered Nexium 40 mg oral enteric coated capsule 1 capsule = 40 mg, By Mouth, Daily, # 90 capsule, 0 Refills, Maintenance, 01/14/22 18:15:00 EDT, ECCapsule, Partial fill upon patient request if the prescription is for a schedule II opioid drug. Start Date: 01/14/22 Status: Ordered Nitroglycerin 0 Refills, Maintenance, 02/01/22 16:16:00 EDT, Partial fill upon patient request if the prescription is for a schedule II opioid drug. Start Date: 02/01/22 Status: Ordered Norvasc 5 mg oral tablet 5 mg, 1, tablet, By Mouth, Daily, # 30 tablet, Refills 0, Tot. Refills 0, Maintenance, 09/21/21 9:23:00 EDT, Route to Pharmacy Electronically, [facility], Partial fill upon patient request if the prescription is for a schedule II o... Start Date: 09/21/21 Status: Ordered NovoLOG FlexPen 100 units/mL subcutaneous solution See Instructions, Inject up to 15 untis via Insulin sliding scale 3x a day w/meals, and 2-4 units with bedtime snack,MAX daily dose 49units, E11.65, 30 day supply, # 30 mL, 11 Refills, Maintenance, 01/17/22 15:24:00 EDT, [facility], 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 Start Date: 01/17/22 Status: Ordered Lkq-jrq-lrhht medical-grade oxford diabetic shoes, depth or hightop Ihw-zlg-vlvyl medical-grade oxford diabetic shoes, depth or hightop, See Instructions, # 1 each, Refills 0, Tot. 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 Start Date: 07/21/21 Status: Ordered Pen [place], 32 G x 4 mm BD Ultra [...] ERASE ME... Start Date: 09/22/15 Status: Ordered Pull ups Pull ups, See [...] = 40 mg, By Mouth, Daily, # 30 capsule, 0 Refills, Maintenance, 02/01/22 16:17:00 EDT, Capsule, Partial fill upon patient request if the prescription is for a schedule II opioid drug. Start Date: 02/01/22 Status: Ordered Senna 8.6 mg oral tablet 8.6 mg, 1, tablet, By Mouth, Daily at bedtime, Refills 0, Maintenance, 02/01/22 16:17:00 EDT, Partial fill upon patient request if the prescription is for a schedule II opioid drug. Start Date: 02/01/22 Status: Ordered Shoes insert, molded to foot Shoes insert, molded to foot, See Instructions, # 3 each, Refills 0, Tot. 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 Start Date: 07/21/21 Status: Ordered tamsulosin 0.4 mg oral capsule 0.4 mg, 1, capsule, By Mouth, Daily, # 30 capsule, Refills 0, Maintenance, 02/01/22 16:18:00 EDT, Partial fill upon patient request if the prescription is for a schedule II opioid drug. Start Date: 02/01/22 Status: Ordered TENS electrode pads TENS electrode pads, See Instructions, # 1 each, Refills 5, Tot. Refills 5, Maintenance, use as directed for back pain Dx LBP M54.9 1 box of 4, 08/27/21 14:17:00 EDT, Compound Start Date: 08/27/21 Status: Ordered Trelegy Ellipta inhalation powder 1 puffs, Inhalation, Daily, at the same time every day Given by Railroad Track Inspector, Dr. Michael Berkowitz, # 60 each, 0 Refills, Maintenance, 07/21/21 11:59:00 EDT, Powder, Partial fill upon patient request if the prescription is for a schedule II opi... Start Date: 07/21/21 Status: Ordered Tresiba FlexTouch 200 units/mL subcutaneous solution See Instructions, INJECT 86 UNITS DAILY AT 9PM, # 45 Unknown, 6 Refills, [id number], 160, cm, 06/21/21 9:57:00 EDT, Height, 80.6, kg, 06/03/20 19:00:00 EST, Dry Weight Start Date: 06/22/21 Status: Ordered Ventolin HFA 108 mcg/inh inhalation aerosol with adapter 2 puffs, Inhalation, 4 times a day, PRN Wheezing/Shortness of Breath, dispense when patient requestit, # 18 Gm, 5 Refills, Maintenance, 11/09/20 12:36:00 EDT, [facility]/pharmacy #1026, 160, cm, 10/22/20 9:15:00 EDT, Height, 80.6, kg, 06/03/20 19:00:00 EST,... Start Date: 11/09/20 Status: Ordered Voltaren 1% topical gel = 2 Gm, Topically, 4 times a day, # 100 Gm, 5 Refills, Maintenance, 02/15/21 11:40:00 EST, [facility]/pharmacy #1026, 2 Gm Topically 4 times a day,x14 days, 160, cm, 02/15/21 8:47:00 EST, Height, 80.6, kg, 06/03/20 19:00:00 EST, Dry Weight Start Date: 02/15/21 Stop Date: 05/10/21 Status: Ordered Humble Reusable Bed Pad 34 x 36 Humble Reusable Bed Pad 34 x 36 , [...] EST, Compound Start Date: 04/28/21 Status: Ordered Zofran ODT 4 mg oral tablet, disintegrating 1 tablet, By Mouth, Every 8 hours, PRN as needed for nausea/vomiting, 0 Refills, Maintenance, 02/01/22 16:17:00 EDT, DIS Tablet, Partial fill upon patient request if the prescription is for a schedule II opioid drug. 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 06/16/08 SURGEON: Danny Marie M.D. LEARNING SUPPORT SPECIALIST: Naima Bowling M.D. 22b/l submassive PE diagnosed on Dec 20 in [facility] 23TTE 12/22/15 in [facility]: RV dilatation, RVSP 46 24Per ECHO 05/24/17 Trace mitral regurgitation , trace TC regurgitation w no significant valve pathology 25meg colo July 2009 exc for 2 hyperplastic polyps 26Colonoscopy 2004 at [facility] [place] per letter of Dr Amor Dobbins Social History Social History Type Response Smoking Status Never (less than 100 in lifetime) entered on: 10/22/20 Sex Patient Care team information Care Team Personnel Name: Diamond Weiss RN Position: [facility] RN Member Role: Primary Care Nurse Name: Tiara Cavazos RN Position: [facility] OB RN Member Role: Primary Care Nurse Name: Shreya Boss RN Position: [facility] RN Member Role: Primary Care Nurse Name: Kelley RNVirginia Position: [facility] RN Member Role: Primary Care Nurse Name: Jaylin Hernandez RN Position: [facility] Onco RN Member Role: Primary Care Nurse Name: Glen Cota MD Position: [facility] Renal MD Member Role: Lifetime Consulting Physician Address: Address: [address] [place] [address] [facility] [address] Name: Florinda Trinh MD Position: [facility] Primary Care Physician Member Role: PCP Address: Address: [address] [place] [address] Care Team Related Persons Name: JOSE ELIAS TODD Address: [place] [address] Name: JOSE ELIAS KIRKLAND Address: home [address] [place] [address] Name: LEONIE SCHRADER Address: [place] [address]
--- OUTSIDE RECORDS SUMMARY | 2023-10-23 09:36 | XMS_ITS | Continuity of Care Document ---
Author Organization [facility] Address [address] [place] [address]- Care Team Providers Care Cupola Melter Name Role Phone Massimo Figueroa Primary Care Physician [phone] Encounter [facility] Date(s): 08/11/22 - 12/25/[address] [id number] Attending Physician: Massimo Figueroa Admitting Physician: Massimo Figueroa Referring Physician: Massimo Figueroa Allergies, Adverse Reactions, Alerts Substance Reaction Severity Status enalapril hyperkalemia Active penicillin RASH Active morphine itchy Active Bactrim 1 hyperkalemia Active Lidocaine, Topical Active 1Hyperkalemia when used together with lisinopril Immunizations Given and Recorded Vaccine Date Status Refusal Reason [id number] 12y+ bivalent booster vax 05/25/22 Given influenza [...] zoster vaccine, inactivated 09/15/21 Given SARS-CoV-2 mRNA ([id number]) vax 09/15/21 Given SARS-CoV-2 (COVID-19) mRNA BNT-162b2 [...] Maintenance, 05/25/22 12:08:00 EST, ER Tablet, [id number], Discontinue Motrin, 158, cm, 05/25/22 11:12:00... Start [...] Gm, 11 Refills, Maintenance, 07/21/21 12:43:00 EDT, [facility]/pharmacy #1026, 1 applicator Topically 2 times a day, 160, cm, 07/21/21 10:22:00 EDT, Height, 80.6, kg, 06/03/20 19:00:00 EST, Dry Weight Start Date: 07/21/21 Status: Ordered Baqsimi Two Pack 3 mg nasal powder = 3 mg, Naris, Right, Once, Please use for a low blood sugar emergency, may repeat in 15 minutes, #1 each, 3 Refills, Soft Stop, 03/09/22 11:35:00 EST, [facility]/pharmacy #0838, 160, cm, 03/09/22 10:43:00EST, Height, 78, kg, 01/14/22 19:37:00 EDT, Dry W... Start Date: 03/09/22 Status: Ordered Biotene Moisturizing Mouth oral spray See Instructions, [place] directly into mouth; spray is safe to swallow as needed for dry mouth, # 45mL, 11 Refills, Maintenance, 05/25/22 12:42:00 EST, [facility]/pharmacy #[id number], Partial fill upon patient request [...] P.M. NEEDED & 1 TAB AT [place], # 180 tablet, 1 Refills, Maintenance, 08/05/22 12:49:00 EDT, [facility] STORE [id number], 158, cm, 07/12/22 11:54:00 EDT, Height, 76, kg, 05/07/22 6:04:00 ES... Start Date: 08/05/22 Status: Ordered capsaicin 0.025% topical cream 1 application, Topically, 3 times a day, # 35 Gm, 11 Refills, Maintenance, 07/21/21 12:26:00 EDT, Cream, [facility]/pharmacy #1026, 1 application Topically 3 times [...] 11 Refills, Maintenance, 12/06/21 15:04:00 EDT, Tablet, [facility], Partial fill upon patient request if the prescription is for a schedule II opioid drug., 160, cm, 11/23/21 14:47:00 ED... Start Date: 12/06/21 Status: Ordered esomeprazole 40 mg oral enteric coated capsule See Instructions, TAKE 1 CAPSULE BY MOUTH DAILY 30 MINUTES BEFORE BREAKFAST, # 30 capsule, 2 Refills, Maintenance, 11/09/22 10:47:00 EDT, [facility] STORE [id number], 158, cm, 07/12/22 11:54:00 EDT, Height, 76, kg, 05/07/22 6:04:00 EST, Dry Weight Start Date: 11/09/22 Status: Ordered famotidine 40 mg oral tablet 1 tablet = 40 mg, By Mouth, Daily at bedtime, If 40 mg tablet is not available, can be changed to 20 mg tablet 2 tablet at bedtime, # 90 tablet, 3 Refills, Maintenance, 07/12/21 18:53:00 EDT, Tablet,[facility]/pharmacy #1026, Discontinue 30- day supply presc... Start Date: 07/12/21 Stop Date: 07/07/22 Status: Ordered ferrous sulfate 325 mg oral tablet 1 tablet = 325 mg, By Mouth, Daily, May take with food to minimize abdominal discomfort. Do not take with milk. Take preferrably with juice., # 90 tablet, 3 Refills, Maintenance, 09/15/21 8:56:00 EDT, [facility]/pharmacy #1026, 160, cm, 09/15/21 8:15:00 EDT,... [...] Refills, Maintenance, 07/08/22 9:47:00 EDT, [id number], 158, cm, 06/16/22 11:27:00 EST, Height, 76, kg, 05/07/22 6:04:00 EST, Dry Weight Start Date: 07/08/22 Status: Ordered ketotifen 0.025% ophthalmic solution 1 drops, Eyes, Both, Every 12 hours, PRN as needed for eye allergy, # 7.5 mL, 11 Refills, Maintenance, 06/25/21 8:34:00 EDT, [facility]/pharmacy #1026, 1 drops Eyes, Both Every [...] 90 tablet, 3 Refills, 03/09/22 11:57:00 EST, [facility]/pharmacy #0838, 1 tablet By Mouth Daily before [...] 03/09/22 11:37:00 EST, [id number], 160, cm, 03/09/22 10:43:00 EST, Height, [...] 03/09/22 11:54:00 EST, Route to Pharmacy Electronically, [facility]/pharmacy #[id number], 160, cm, 03/09/22 10:43:00 EST, [...] # 15... Start Date: 11/24/22 Status: Ordered Ekt-gry-kilab medical-grade oxford diabetic shoes, depth or hightop Myy-jpe-nzbrg medical-grade oxford diabetic shoes, depth or hightop, [...] DOLOR Start Date: 11/24/22 Status: Ordered Pen [place], 32 G x 4 mm BD Ultra [...] 527 Gm,11 Refills, Maintenance, 03/09/22 11:39:00 EST, [facility]/pharmacy #0838, 17- 34 Gm By Mouth Daily,PRN:asneeded for constipation,Instr:(dissolve in water or... Start Date: 03/09/22 Status: Ordered pravastatin 10 mg oral tablet TOME GAGE HALLIEA STEPHEN LOS D Start Date: 11/24/22 Status: Ordered [...] tablet, 11 Refills, Maintenance, 03/09/22 11:39:00 EST, [facility] #[id number], 160, cm, 03/09/22 10:43:00 EST, Height, [...] Date: 03/09/22 Stop Date: 06/01/22 Status: Ordered [place] Reusable Bed Pad 34 x 36 [place] Reusable Bed Pad 34 x 36 , [...] Confirmed 12/29/11 Active Hepatitis C Confirmed Active group home current use of opiate analgesic-LBP 12 Confirmed [...] Osteopenia 18, 19, 20 Confirmed 11/16/12 Active *[id number] Credit Relationship Manager Karine More Confirmed Active 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 06/16/08 SURGEON: Danny Marie M.D. PRINTING SUPERVISOR: Naima Bowling M.D. 22b/l submassive PE diagnosed on Dec 20 in [facility] 23TTE 12/22/15 in [facility]: RV dilatation, RVSP 46 24Per ECHO 05/24/17 Trace mitral regurgitation , trace TC regurgitation w no significant valve pathology 25meg colo July 2009 exc for 2 hyperplastic polyps 26Colonoscopy 2004 at [facility] [place] per letter of Dr Amor Dobbins Social History Social History Type Response Smoking Status Never (less than 100 in lifetime) entered on: 10/22/20 Sex Patient Care team information Care Team Personnel Name: Massimo Figueroa Position: [facility] Outreach Member Role: PCP Address: Address: [address] [place] [address] Name: Diamond Weiss RN Position: [facility] RN Member Role: Primary Care Nurse Name: Tiara Cavazos RN Position: [facility] OB RN Member Role: Primary Care Nurse Name: Shreya Boss RN Position: S RN Member Role: Primary Care Nurse Name: Virginia Benson RN Position: [facility] SN RN Member Role: Primary Care Nurse Name: Jaylin Hernandez RN Position: [facility] Onco RN Member Role: Primary Care Nurse Name: Glen Cota MD Position: [facility] Renal MD Member Role: Lifetime Consulting Physician Address: Address: [address] [place] [address] [facility] [address] Care Team Related Persons Name: JOSE ELIAS TODD Address: [place] [address] Name: JOSE ELIAS KIRKLAND Address: home [address] [place] [address] Name: LEONIE SCHRADER Address: [place] [address]
--- OUTSIDE RECORDS SUMMARY | 2023-10-23 09:36 | XMS_ITS | Continuity of Care Document ---
Author Organization [facility] Address [address] [place] [address]- Care Team Providers Care Weed Inspector Name Role Phone Gayathri GARZA, Florinda Primary Care Physician Encounter [facility] Date(s): 06/11/20 - 07/11/20 [facility] [address] [place] [id number]- Attending Physician: Yaya Patino Admitting Physician: Yaya [...] or fever, (not to exceed 2000 mg/day) bangladeshi, # 100 tablet, 5 Refills, Maintenance, 01/22/20 [...] 06/12/20 8:36:00 EST, Route to Pharmacy Electronically, [facility]/pharmacy #[id number], 160, cm, 06/04/20 11:29:00 EST, Height, 80.6, kg, 06/03/20 19:00:00 EST, Dry Weight Start Date: 06/12/20 Status: Ordered ammonium lactate 12% topical cream 1 applicator, Topically, 2 times a day, # 280 Gm, 11 Refills, Maintenance, 01/27/20 19:13:00 EDT, [facility]/pharmacy #1026, 1 applicator Topically 2 times a day, 167, cm, 01/13/20 8:54:00 EDT, Height, 78.8, kg, 01/01/20 3:41:00 EDT, Dry Weight Start Date: 01/27/20 Status: Ordered Baqsimi Two Pack 3 mg nasal powder = 3 mg, Naris, Right, Once, Please use for a low blood sugar emergency, may repeat in 15 minutes, #2 each, 3 Refills, Soft Stop, 06/26/20 7:30:00 EDT, [facility]/pharmacy #1026, Partial fill upon patient request if the prescription is for a schedule II op... Start Date: 06/26/20 Status: Ordered calcium (as citrate)-vitamin D 315 mg-250 intl units oral tablet 2 tablet, By Mouth, 2 times a day, for 30 days, calcium citrate, # 120 tablet, 11 Refills, Hard Stop 01/21/21 19:13:00 EDT, 01/27/20 19:13:00 EDT, Tablet, [facility]/pharmacy #1026, 167, cm, 01/13/20 8:54:00 EDT, Height, 78.8, kg, 01/01/20 3:41:00 EDT, Dry... Start Date: 01/27/20 Stop Date: 01/21/21 Status: Ordered capsaicin 0.025% topical cream 1 application, Topically, 3 times a day, # 90 Gm, 11 Refills, Maintenance, 02/10/20 11:22:00 EST, Cream, [facility]/pharmacy #1026, 1 application Topically 3 [...] Refills, Maintenance, 01/27/20 19:13:00 EDT, EC Capsule, [facility]/pharmacy #1026, 167, cm, 01/13/20 8:54:00 EDT, Height, 78.8, kg, 01/01/20 3:41:00 EDT, Dry Weight Start Date: 01/27/20 Status: Ordered Eliquis 5 mg oral tablet 1 tablet = 5 mg, By Mouth, 2 times a day, # 60 tablet, 11 Refills, Maintenance, 02/10/20 11:22:00 EST, Tablet, [facility], 167, cm, 01/13/20 8:54:00 EDT, Height, 78.8, kg, 01/01/20 3:41:00 EDT, Dry Weight Start Date: 02/10/20 Status: Ordered famotidine 40 mg oral tablet 1 tablet = 40 mg, By Mouth, Daily at bedtime, If 40 mg tablet is not available, can be changed to 20 mg tablet 2 tablet at bedtime, # 90 tablet, 3 Refills, Maintenance, 06/30/20 14:55:00 EDT, Tablet,[facility], Discontinue 30- day supply presc... Start Date: 06/30/20 Stop Date: 06/25/21 Status: Ordered ferrous sulfate 325 mg oral tablet 1 tablet = 325 mg, By Mouth, Daily, May take with food to minimize abdominal discomfort. Do not take with milk. Take preferrably with juice., # 90 tablet, 2 Refills, Maintenance, 01/22/20 9:38:00 EDT, [facility]/pharmacy #[id number], 167, cm, 01/13/20 8:54:00 [...] Daily, # 90 capsule, 3 Refills, Maintenance, 06/30/20 14:54:00 EDT, [facility]/pharmacy #1026, 160, cm, 06/12/20 9:01:00 EST, Height, 80.6, kg, 06/03/20 19:00:00 EST, Dry Weight Start Date: 06/30/20 Stop Date: 06/25/21 Status: Ordered ketotifen 0.025% ophthalmic solution 1 drops, Eyes, Both, Every 12 hours, PRN as needed for eye allergy, # 7.5 mL, 11 Refills, Maintenance, 01/27/20 19:13:00 EDT, [facility]/pharmacy #1026, 1 drops Eyes, Both [...] 1, Maintenance, as needed for allergy symptoms, 06/24/20 9:08:00 EDT, Route to Pharmacy Electronically, [facility]/pharmacy #[id number], 160, cm, 06/12/20 9:01:00 EST, Height, 80... Start Date: 06/24/20 Status: Ordered NovoLOG FlexPen 100 units/mL subcutaneous solution See Instructions, Inject up to 26 untis via Insulin sliding scale 3x a day w/meals,MAX daily dose 78 units, E11.65, # 45 mL, 6 Refills, Maintenance, 01/21/20 14:30:00 EDT, [facility]/pharmacy #1026, 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 Start Date: 01/21/20 Status: Ordered Npn-gej-svfyn medical-grade oxford diabetic shoes, depth or hightop Luh-nhp-nogec medical-grade oxford diabetic shoes, depth or hightop, [...] EDT, 07/10/20 10:25:00 EDT, [facility]ically, [facility], Parti... Start Date: 07/10/20 Stop Date: 08/07/20 Status: Ordered Pen [place], 32 G x 4 mm BD Ultra [...] 02/10/20 11:22:00 EST, Route to Pharmacy Electronically, [facility]/pharmacy #1026 Tablet, 167, cm, 01/13/20 8:5... Start [...] 05/01/20 9:28:00 EST, Route to Pharmacy Electronically, [facility]/pharmacy #1026, 167,... Start Date: 05/01/20 Status: Ordered TENS electrode pads TENS electrode pads, See Instructions, # 1 box, Refills 5, Tot. Refills 5, Maintenance, use as directed for back pain Dx LBP M54.9 1 box of 4, 12/06/16 14:59:01, Compound Start Date: 12/06/16 Status: Ordered [place] Ellipta inhalation powder 1 puffs, Inhalation, Daily, at the same time every day given by sign hanger supervisor , Dr Berkowitz, # 60 each, 0 [...] Date: 06/12/20 Stop Date: 09/04/20 Status: Ordered [place] Reusable Bed Pad 34 x 36 [place] Reusable Bed Pad 34 x 36 , [...] abnormal(Confirmed) 11 12/29/11 Active Hepatitis C(Confirmed) Active emt intermediate current use of opi ate analgesic-LBP(Confirmed) 12 [...] apnea)(Confirmed) Active Osteopenia(Confirmed) 18, 19 11/16/12 Active *[id number] Care Partn igor More(Confirmed) Active Peripheral venous [...] 10EGD on 06/24/16 by GI, Dr Damien Dobibns w gastritis and esophageal varices grade 1 11left mild sensorineural hearing loss by [facility] Hearing Evaluation on 12/29/11 12Narcotic [...] lower parathyroidectomy. 06/16/08 SURGEON: Danny Marie M.D. PICKING SUPERVISOR: Naima Bowling M.D. 21b/l submassive PE diagnosed on Dec [address] [facility] 22TTE 12/22/[address] [facility]: RV dilatation, RVSP 46 23Per ECHO 05/24/17 Trace mitral regurgitation , trace TC regurgitation w no significant valve pathology 24meg colo July 2009 exc for 2 hyperplastic polyps 25Colonoscopy 2004 at [facility] [place] per letter of Dr Amor Dobbins Social History Social History Type Response Smoking Status Never (less than 100 in lifetime) entered on: 06/12/20 Sex
--- OUTSIDE RECORDS SUMMARY | 2023-10-23 09:36 | XMS_ITS | Continuity of Care Document ---
Author Organization [facility] Address [address] [place] [address]- Care Team Providers Care Principle Software Engineer Name Role Phone Massimo Figueroa Primary Care Physician [phone] Encounter [facility] Date(s): 12/20/22 - 01/19/23 [facility] [address] [place], [place] [address] Allergies, Adverse Reactions, Alerts Substance Reaction Severity Status enalapril hyperkalemia Active Lidocaine, Topical Active penicillin RASH Active morphine itchy Active Bactrim 1 hyperkalemia Active 1Hyperkalemia when used together with lisinopril Immunizations Given and Recorded Vaccine Date Status Refusal Reason [id number] 12y+ bivalent booster vax 05/25/22 Given influenza [...] zoster vaccine, inactivated 09/15/21 Given SARS-CoV-2 mRNA ([id number]-[id number]-agkll) vax 09/15/21 Given SARS-CoV-2 (COVID-19) mRNA BNT-162b2 [...] Gm, 11 Refills, Maintenance, 07/21/21 12:43:00 EDT, [facility]/pharmacy #1026, 1 applicator Topically 2 times a day, 160, cm, 07/21/21 10:22:00 EDT, Height, 80.6, kg, 06/03/20 19:00:00 EST, Dry Weight Start Date: 07/21/21 Status: Ordered Baqsimi Two Pack 3 mg nasal powder = 3 mg, Naris, Right, Once, Please use for a low blood sugar emergency, may repeat in 15 minutes, #1 each, 3 Refills, Soft Stop, 03/09/22 11:35:00 EST, [facility]/pharmacy #0838, 160, cm, 03/09/22 10:43:00EST, Height, 78, kg, 01/14/22 19:37:00 EDT, Dry W... Start Date: 03/09/22 Status: Ordered Biotene Moisturizing Mouth oral spray See Instructions, [place] directly into mouth; spray is safe to swallow as needed for dry mouth, # 45mL, 11 Refills, Maintenance, 05/25/22 12:42:00 EST, [facility]/pharmacy #0838, Partial fill upon patient request [...] Refills, Maintenance, 08/05/22 12:49:00 EDT, [facility], 158, cm, 07/12/22 11:54:00 EDT, Height, 76, [...] 11 Refills, Maintenance, 12/06/21 15:04:00 EDT, Tablet, [facility], Partial fill upon patient request if the prescription is for a schedule II opioid drug., 160, cm, 11/23/21 14:47:00 ED... Start Date: 12/06/21 Status: Ordered esomeprazole 40 mg oral enteric coated capsule See Instructions, TAKE 1 CAPSULE BY MOUTH DAILY 30 MINUTES BEFORE BREAKFAST, # 30 capsule, 2 Refills, Maintenance, 11/09/22 10:47:00 EDT, [facility], 158, cm, 07/12/22 11:54:00 EDT, Height, 76, kg, 05/07/22 6:04:00 EST, Dry Weight Start Date: 11/09/22 Status: Ordered famotidine 40 mg oral tablet 1 tablet = 40 mg, By Mouth, Daily at bedtime, If 40 mg tablet is not available, can be changed to 20 mg tablet 2 tablet at bedtime, # 90 tablet, 3 Refills, Maintenance, 07/12/21 18:53:00 EDT, Tablet,[facility]/pharmacy #1026, Discontinue 30- [...] Refills, Maintenance, 07/08/22 9:47:00 EDT, [facility], 158, cm, 06/16/22 11:27:00 EST, Height, 76, [...] 90 tablet, 3 Refills, 03/09/22 11:57:00 EST, [facility], 1 tablet By Mouth Daily before [...] 03/09/22 11:37:00 EST, Route to Pharmacy Electronically, [facility]/pharmacy #0838, 160, cm, 03/09/22 10:43:00 EST, [...] 11:54:00 EST, [facility] 160, cm, 03/09/22 10:43:00 EST, Height, [...] # 15... 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 06/16/08 SURGEON: Danny Marie M.D. BETA TESTER: Naima Bowling M.D. 22b/l submassive PE diagnosed on Dec 20 in [facility] 23TTE 12/22/15 in [facility]: RV dilatation, RVSP 46 24Per ECHO 05/24/17 Trace mitral regurgitation , trace TC regurgitation w no significant valve pathology 25meg colo July 2009 exc for 2 hyperplastic polyps 26Colonoscopy 2004 at [facility] [place] per letter of Dr Amor Dobbins Social History Social History Type Response Smoking Status Never (less than 100 in lifetime) entered on: 10/22/20 Sex Patient Care team information Care Team Personnel Name: Massimo Figueroa Position: [facility] Outreach Member Role: PCP Address: Address: [address] [place] [address] Name: Diamond Weiss RN Position: [facility] RN Member Role: Primary Care Nurse Name: Tiara Cavazos RN Position: [facility] OB RN Member Role: Primary Care Nurse Name: Shreya Boss RN Position: [facility] RN Member Role: Primary Care Nurse Name: Virginia Benson RN Position: [facility] SN RN Member Role: Primary Care Nurse Name: Jaylin Hernandez RN Position: [facility] Onco RN Member Role: Primary Care Nurse Name: Glen Cota MD Position: [facility] Renal MD Member Role: Lifetime Consulting Physician Address: Address: [address] [place] [address] [facility] [address] Care Team Related Persons Name: JOSE ELIAS TODD Address: [place] [address] Name: JOSE ELIAS KIRKLAND Address: home [address] [place] [address] Name: LEONIE SCHRADER Address: [place] [address]
--- OUTSIDE RECORDS SUMMARY | 2023-10-23 09:36 | XMS_ITS | Continuity of Care Document ---
Author Organization [facility] ter Address [address] [place] [id number]- Care Team Providers Care Sales Agent Casualty Insurance Name Role Phone Florinda Trinh MD Primary Care Physician Encounter [facility] Date(s): 12/27/19 - 12/27/19 [facility] [address] [place] [id number]- [facility] Encounter Diagnosis UTI symptoms(Final) - 12/27/19 Discharge Disposition: A-D/C Home Attending Physician: Sreedhar Mckeon MD Admitting Physician: Sreedhar Mckeon MD Referring Physician: Not on Staff, Referring [...] or fever, (not to exceed 2000 mg/day) bruneian, # 100 tablet, 11 Refills, Maintenance, 01/16/19 [...] a day Start Date: 01/16/19 Status: Ordered Arnuity Ellipta 200 mcg inhalation powder 1 puffs, Inhalation, Every 24 hours, # 30 each, 11 Refills, Maintenance, 06/30/19 9:28:00 EDT, Powder, [id number], 159, cm, 05/20/19 12:19:00 EST, Height, 88.1, kg, 04/25/19 16:02:00 EST, DryWeight Start Date: 06/30/19 Status: Ordered Bactrim DS 800 mg-160 mg oral tablet 1 tablet, By Mouth, Every 12 hours, for 3 days, # 6 tablet, 0 Refills, Acute 12/30/19 23:03:00 EDT,12/27/19 23:03:00 EDT, Tablet, [facility], 1 tablet By Mouth Every 12 hours,x3 days, 159, cm, 12/25/19 12:50:00 EDT, Height, 88.1,... Start Date: 12/27/19 Stop Date: 12/30/19 Status: Ordered budesonide 0.5 mg/2 mL inhalation suspension 0.5 mg, 2, mL, Neb, Daily, given by loftsman/woman , Dr Berkowitz, # 120 mL, Refills [...] 11 Refills, Maintenance, 09/25/19 11:21:00 EDT, Cream, [facility], 1 application Topically 3 times a [...] of CPAP equipment for details;sleep study on 1/22/18, obstructive sleep apnea, 07/19/17 13:00:20 EDT, Compound [...] Refills, Maintenance, 03/27/19 9:10:00 EST, EC Capsule, [facility], 159, cm, 03/20/19 14:59:00 EST, Height, 88.3, kg, 12/13/18 10:17:00 EDT, Dry Weight Start Date: 03/27/19 Status: Ordered docusate sodium 100 mg oral tablet 2 tablet = 200 mg, By Mouth, 2 times a day, # 120 tablet, 11 Refills, Maintenance, 09/25/19 11:07:00 EDT, [facility], 159, cm, 05/20/19 12:19:00 EST, Height, 88.1, kg, 04/25/19 16:02:00 EST, Dry Weight Start Date: 09/25/19 Status: Ordered Eliquis 5 mg oral tablet 1 tablet = 5 mg, By Mouth, 2 times a day, # 60 tablet, 11 Refills, Maintenance, 07/22/19 8:58:00 EDT, Tablet, [facility], 159, cm, 05/20/19 12:19:00 EST, Height, 88.1, kg, 04/25/19 16:02:00 EST, Dry Weight Start Date: 07/22/19 Status: Ordered enalapril 10 mg oral tablet 10 mg, 1, tablet, By Mouth, Daily, 90 days, # 90 tablet, Refills 3, Tot. Refills 3, Maintenance, 09/19/18 15:15:30 EDT, Route to Pharmacy Electronically, [id number], [facility] Start Date: 09/19/18 Status: Ordered famotidine 40 mg oral tablet 1 tablet = 40 mg, By Mouth, Daily at bedtime, If 40 mg tablet is not available, can change to 20 mgtablet 2 tablet at bedtime, # 30 tablet, 2 Refills, Maintenance, 10/09/19 10:01:00 EDT, Tablet, [facility], 159, cm, 09/25/19 14:31... Start Date: 10/09/19 Status: Ordered ferrous sulfate 325 mg oral tablet 1 tablet = 325 mg, By Mouth, Daily, May take with food to minimize abdominal discomfort. Do not take with milk. Take preferrably with juice., # 90 tablet, 3 Refills, Maintenance, 11/22/19 14:58:00 EDT, [facility], 159, cm, 09/25/19... Start Date: 11/22/19 Status: Ordered flunisolide 25 mcg/inh nasal spray 2 puffs, Nasal, 2 times a day, Keep your head down while using dispense when patient request it, # 1 each, 11 Refills, Maintenance, 07/10/19 17:15:00 EDT, [facility]/pharmacy #[id number], discontinue nasacort, 2 puffs Nasal 2 times a day,Instr:Keep your hea... Start Date: 07/10/19 Status: Ordered Freestyle Lite Test Strips See [...] Dry Weight Start Date: 06/23/19 Status: Ordered Hydrocerin, Eucerin or generic equivalant cream Hydrocerin, Eucerin or generic equivalant cream, See Instructions, # 1 each, Refills 0, Tot. Refills 0, Maintenance, Apply BID to dry itching skin. Dispense one tub, approx 450 gm, 07/10/19 17:15:00 EDT, Compound, 159, cm, 05/20/19 12:19:00 EST, Heigh... Start Date: 07/10/19 Status: Ordered hydroCHLOROthiazide 12.5 mg oral capsule 1 capsule = 12.5 mg, By Mouth, Daily, # 30 capsule, 11 Refills, Maintenance, 06/30/19 9:25:00 EDT, [facility]/pharmacy #[id number], 159, cm, 05/20/19 12:19:00 EST, Height, [...] 09/19/18 15:09... Start Date: 09/19/18 Status: Ordered levalbuterol 1.25 mg/0.5 mL inhalation solution 0.5 mL = 1.25 mg, Neb, Daily, PRN for wheezing, given by loftsman/woman , Dr Berkowitz, # 30 each, 0Refills, Maintenance, 11/20/19 13:06:00 EDT, Solution Start Date: 11/20/19 Status: Ordered loratadine 10 mg oral tablet 10 mg, 1, tablet, By Mouth, Daily, PRN, 90 days, # 90 tablet, Refills 3, Tot. Refills 3, Maintenance, as needed for allergy symptoms, 01/16/19 8:53:23 EDT, Route to Pharmacy Electronically, [id number], [facility]... Start Date: 01/16/19 Status: Ordered magnesium citrate 8.85% oral liquid 150 mL = 8.725 Gm, By Mouth, Once, # 300 mL, 0 Refills, Soft Stop, 06/05/18 13:22:39 EST, Liquid, 150 mL By Mouth Once Start Date: 06/05/18 Status: Ordered NovoLOG FlexPen 100 units/mL subcutaneous solution See Instructions, Max daily dose 100 units per day. E11.65, # 45 mL, 11 Refills, Maintenance, 09/23/19 9:56:00 EDT, [facility], DxE11.65, 159, cm, 05/20/19 12:19:00 EST, Height, 88.1, kg, 04/25/19 16:02:00 EST, Dry Weight Start Date: 09/23/19 Status: Ordered Bud-mlr-qqkfr medical-grade oxford diabetic shoes, depth or hightop Jog-afx-jmeog medical-grade oxford diabetic shoes, depth or hightop, See Instructions, # 1 pair, Refills 0, Tot. 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 Start Date: 09/19/18 Status: Ordered oxyCODONE 5 mg oral tablet 5 mg, 1, tablet, By Mouth, Every 4 hours, for 28 days, dispense not earlier than 12/20/19, # 140 tablet, Refills 0, Tot. Refills 0, Acute 01/17/20 11:43:00 EDT, 12/20/19 11:43:00 EDT, Route to Pharmacy Electronically, [facility], [place]... Start Date: 12/20/19 Stop Date: 01/17/20 Status: Ordered oxyCODONE 5 mg oral tablet 5 mg, 1, tablet, By Mouth, Every 4 hours, for 28 days, dispense not earlier than 01/17/20, # 140 tablet, Refills 0, Tot. Refills 0, Acute 02/14/20 11:43:00 EST, 01/17/20 11:43:00 EDT, Route to Pharmacy Electronically, [facility], [place]... Start Date: 01/17/20 Stop Date: 02/14/20 Status: Ordered Pen [place], 32 G x 4 mm BD Ultra [...] 527 Gm,11 Refills, Maintenance, 01/16/19 8:53:22 EDT, [facility] Start Date: 01/16/19 Status: Ordered pravastatin 10 mg oral tablet 1 tablet = 10 mg, By Mouth, Daily, 90 days Discontinue 30-day supply prescription, # 90 tablet, 3 Refills, Maintenance, 01/16/19 8:54:15 EDT, Tablet Start Date: 01/16/19 Status: Ordered Protonix 40 [...] 99 Disco... Start Date: 08/05/19 Status: Ordered scopolamine 1 mg/72 hr transdermal film, extended release 1 film, Topically, Every 72 hours, discontinue meclizine once scopolamine patch is approved by insurance, # 10 each, 3 Refills, Maintenance, 12/25/19 13:57:00 EDT, [facility], 1 film Topically Every 72 hours,Instr:discontinue mecli... Start Date: 12/25/19 Status: Ordered Senna 8.6 mg oral tablet 17.2 mg, 2, tablet, By Mouth, 2 times a day, PRN, increase dose, # 60 tablet, Refills 11, Tot. Refills 11, Maintenance, for constipation, 09/25/19 11:08:00 EDT, Route to Pharmacy Electronically, [facility] Tablet, 159, cm, 05/20/19... Start Date: 09/25/19 [...] Tot. Refills 5, Maintenance, 11/29/19 14:34:00 EDT, [facility], [facility]... Start Date: 11/29/19 Status: Ordered TENS electrode pads TENS electrode pads, See Instructions, # 1 box, Refills 5, Tot. Refills 5, Maintenance, use as directed for back pain Dx LBP M54.9 1 box of 4, 12/06/16 14:59:01, Compound Start Date: 12/06/16 Status: Ordered Trelegy Ellipta inhalation powder 1 puffs, Inhalation, Daily, at the same time every day given by loftsman/woman , Dr Berkowitz, # 60 each, 0 Refills, Maintenance, 11/20/19 13:03:00 EDT, Powder Start Date: 11/20/19 Status: Ordered Tresiba FlexTouch 200 units/mL subcutaneous solution See Instructions, Max daily dose 100 units per day. E11.65, # 18 mL, 5 Refills, Maintenance, 09/23/19 9:57:00 EDT, [facility], 159, cm, 05/20/19 12:19:00 EST, Height, 88.1, kg, 04/25/19 16:02:00 EST, Dry Weight Start Date: 09/23/19 Status: Ordered Trulicity Pen 0.75 mg/0.5 mL subcutaneous solution 0.5 mL = 0.75 mg, Subcutaneous Injection, Every week, rotate injection sites, give once a week on the same day every week. E11.9, # 2.5 mL, 3 Refills, Maintenance, 12/20/19 10:50:00 EDT, Solution, [facility], 159, cm, 12/20/19... Start Date: 12/20/19 Status: Ordered Ventolin HFA 108 mcg/inh inhalation aerosol with adapter 2 puffs, Inhalation, 4 times a day, PRN Wheezing/Shortness of Breath, dispense when patient requestit, # 18 Gm, 5 Refills, Maintenance, 07/10/19 17:15:00 EDT, [facility]/pharmacy #[id number], 159, cm, 05/20/19 12:19:00 EST, Height, 88.1, kg, 04/25/19 16:02:00 EST... 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(Confirmed) 12 Active Hypercholesterolemia(Confirmed) Active Hyperparathyroidism s/p righ t lower parathyroidectomy 06/16/2008(Confirmed) Active Hypertension(Confirmed) Active Hysterectomy(Confirmed) Active Incontinence of urine(Confirmed) Active Iron deficiency anemia(Confirmed) Active Left ventricular hypertrophy(Confirmed) 13 Active Memory impairment(Confirmed) Active Mitral regurgitation(Confirmed) 14 05/24/17 Active Nephrolithiasis(Confirmed) 15, 16, 17 06/11/02 Active Obesity(Confirmed) Active JENNIFER (obstructive sleep apnea)(Confirmed) Active Osteopenia(Confirmed) 18, 19 11/16/12 Active *[id number]-[facility] Partn david [place](Confirmed) Active Peripheral venous insufficiency(Confirmed) [...] peroneal veins diagnosed on Dec 20 [facility] 6insulin dependent 7Per ECHO 05/24/1718 Grade [...] 1 11left mild sensorineural hearing loss by [facility] Hearing Evaluation on 12/29/11 12Narcotic contract [...] lower parathyroidectomy. 06/16/08 SURGEON: Danny Marie M.D. TEACHER SELECTION SPECIALIST: Naima Bowling M.D. 21b/l submassive PE diagnosed on Dec [address] [facility] 22TTE 12/22/[address] [facility]: RV dilatation, RVSP 46 23Per ECHO 05/24/17 Trace mitral regurgitation , trace TC regurgitation w no significant valve pathology 24meg colo July 2009 exc for 2 hyperplastic polyps 25Colonoscopy 2004 at [facility] [place] per letter of Dr Amor Dobbins Results Radiology Reports * Exam Date Time Procedure Performing Provider Status 12/27/19 4:26 PM Chest 2 Views Frontal and Lat Shameka Cardoza; Auth (Verified) Notes: (Chest 2 Views Frontal and Lat) Reason For Exam: Pleuritic Pain RESULT: Chest 2 Views Frontal and Lat Chest 2 Views Frontal and Lat Hx of Present Illness: 3 days little to no PO intake. N V for some period. Also c o CP arm pain. Also new onset confusion since last night per daughter. She started a Scopolamine patch at the same time. On Eliquis. Has very dark urine.; Reason: Pleuritic Pain; Clinical Question(s): Pneumonia COMPARISON: 05/15/2018. FINDINGS: LINES AND TUBES: None. LUNGS AND PLEURA: Clear lungs. Mildly prominent interstitial markings without overt pulmonary edema. No pleural effusion. No pneumothorax. HEART, MEDIASTINUM AND SERINA: Heart is normal in size. Normal mediastinal and hilar contour. BONES AND SOFT TISSUES: No acute abnormality. Evidence of minimal calcific tendinitis in the left rotator cuff adjacent to the left greater tuberosity. Surgical clips in the right upper quadrant. IMPRESSION: No acute abnormality. WSN: [id number] Ordering Physician: Octaviano Barrios Dictated By: Armand Garza MD Dictated Date/Time: 12/27/19 4:33 pm Reviewed By: Armand Garza MD Signed By: Armand Garza MD Signed Date/Time: 12/27/19 4:33 pm Transcribed By: AUGUSTINE Transcribed Date/Time: 12/27/19 4:31 pm Vital Signs Most recent to oldest [Reference Range]: 1 2 3 Oxygen Saturation [94-100 %] 96 % (12/27/19 10:47 PM) 95 % (12/27/19 8:16 PM) 92 % *L* (12/27/19 3:17 PM) Pulse Rate [55-90 bpm] 70 bpm (12/27/19 10:47 PM) 85 bpm (12/27/19 8:16 PM) 77 bpm (12/27/19 3:17 PM) Blood Pressure [90-138/55-84 mm Hg] 125/60mm Hg (12/27/19 10:47 PM) 141/61mm Hg *H* (12/27/19 8:16 PM) 118/55mm Hg (12/27/19 3:17 PM) Respiratory Rate [16-30 br/min] 16 br/min (12/27/19 10:47 PM) 16 br/min (12/27/19 8:16 PM) 20 br/min (12/27/19 3:17 PM) Temperature [96.8-100.4 DegF] 99.4 DegF (12/27/19 10:47 PM) 98.3 DegF (12/27/19 8:16 PM) 99.4 DegF (12/27/19 3:17 PM) Mode of Delivery (Oxygen) Room air (12/27/19 10:47 PM) Room air (12/27/19 3:17 PM) Room air (12/27/19 12:15 PM) Blood pressure sites Arm, left (12/27/19 10:47 PM) Arm, right (12/27/19 3:17 PM) Temperature Route Oral (12/27/19 10:47 PM) Oral (12/27/19 8:16 PM) Oral (12/27/19 3:17 PM) Social History Social History Type Response Smoking Status Never (less than 100 in lifetime) entered on: 12/25/19 Sex
--- OUTSIDE RECORDS SUMMARY | 2023-10-23 09:36 | XMS_ITS | Continuity of Care Document ---
Author Organization [facility] Address [address] [place] [address]- Care Team Providers Care Cytology Manager Name Role Phone Gayathri GARZA, Florinda Primary Care Physician Encounter [facility] Date(s): 06/23/22 - 07/23/22 [facility]/[address] [id number]- [place] Allergies, Adverse Reactions, Alerts Substance Reaction Severity Status enalapril Active penicillin RASH Active morphine itchy Active Bactrim 1 hyperkalemia Active Lidocaine, Topical Active 1Hyperkalemia when used together with lisinopril Immunizations Given and Recorded Vaccine Date Status Refusal Reason [id number] 12y+ bivalent booster vax 05/25/22 Given influenza [...] zoster vaccine, inactivated 09/15/21 Given SARS-CoV-2 mRNA ([id number]) vax 09/15/21 Given SARS-CoV-2 (COVID-19) mRNA BNT-162b2 [...] Refills, Maintenance, 05/25/22 12:08:00 EST, ER Tablet, [facility]/pharmacy #[id number], Discontinue Motrin, 158, cm, 05/25/22 11:12:00... [...] Gm, 11 Refills, Maintenance, 07/21/21 12:43:00 EDT, [facility]/pharmacy #[id number], 1 applicator Topically 2 times a day, 160, cm, 07/21/21 10:22:00 EDT, Height, 80.6, kg, 06/03/20 19:00:00 EST, Dry Weight Start Date: 07/21/21 Status: Ordered Baqsimi Two Pack 3 mg nasal powder = 3 mg, Naris, Right, Once, Please use for a low blood sugar emergency, may repeat in 15 minutes, #1 each, 3 Refills, Soft Stop, 03/09/22 11:35:00 EST, [facility]/pharmacy #[id number], 160, cm, 03/09/22 10:43:00EST, Height, 78, kg, 01/14/22 19:37:00 EDT, Dry W... Start Date: 03/09/22 Status: Ordered Biotene Moisturizing Mouth oral spray See Instructions, [place] directly into mouth; spray is safe to swallow as needed for dry mouth, # 45mL, 11 Refills, Maintenance, 05/25/22 12:42:00 EST, [facility]/pharmacy #[id number], Partial fill upon patient [...] needed for anxiety and 1tab at HS fyturj-log-goxvl, # 60 tablet, 11 Refills, Maintenance, 09/15/21 9:02:00 EDT, [facility]/pharmacy #1026, Partial fill upon patient request... Start Date: 09/15/21 Status: Ordered capsaicin 0.025% topical cream 1 application, Topically, 3 times a day, # 35 Gm, 11 Refills, Maintenance, 07/21/21 12:26:00 EDT, Cream, [facility]/pharmacy #1026, 1 application Topically 3 [...] 11 Refills, Maintenance, 12/06/21 15:04:00 EDT, Tablet, [facility], Partial fill upon patient [...] tablet, 3 Refills, Maintenance, 07/12/21 18:53:00 EDT, Tablet,[facility]/pharmacy #1026, Discontinue 30- day supply presc... Start Date: 07/12/21 Stop Date: 07/07/22 Status: Ordered ferrous sulfate 325 mg oral tablet 1 tablet = 325 mg, By Mouth, Daily, May take with food to minimize abdominal discomfort. Do not take with milk. Take preferrably with juice., # 90 tablet, 3 Refills, Maintenance, 09/15/21 8:56:00 EDT, [facility]/pharmacy #[id number], 160, cm, 09/15/21 8:15:00 [...] tablet, 0 Refills, Maintenance, 07/08/22 9:47:00 EDT, [facility] STORE [id number], 158, cm, 06/16/22 11:27:00 EST, Height, 76, kg, 05/07/22 6:04:00 EST, Dry Weight Start Date: 07/08/22 Status: Ordered ketotifen 0.025% ophthalmic solution 1 drops, Eyes, Both, Every 12 hours, PRN as needed for eye allergy, # 7.5 mL, 11 Refills, Maintenance, 06/25/21 8:34:00 EDT, [facility]/pharmacy #1026, 1 drops Eyes, Both [...] 90 tablet, 3 Refills, 03/09/22 11:57:00 EST, [facility]/pharmacy #0838, 1 tablet By Mouth Daily before dinner,PRN:allergies, 160, cm, 03/09/22 10:43:00 EST, Height, 78, kg, 01/14/22 19:37:00 ED... Start Date: 03/09/22 Status: Ordered montelukast 10 mg oral tablet 10 mg, 1, tablet, By Mouth, Daily at bedtime, # 90 tablet, Refills 3, Tot. Refills 3, Maintenance, 03/09/22 11:37:00 EST, Route to Pharmacy Electronically, [facility]/pharmacy #[id number], 160, cm, 03/09/22 10:43:00 EST, Height, 78, kg, 01/14/22 19:37:00 EDT, Dry... Start Date: 03/09/22 Stop Date: 03/04/23 Status: Ordered Nexium 40 mg oral enteric coated capsule 1 capsule = 40 mg, By Mouth, Daily, 30 minutes before breakfast, # 30 capsule, 2 Refills, Maintenance, 05/02/22 15:39:00 EST, [facility]/pharmacy #[id number], Discontinue pantoprazole, 160, cm, 04/19/22 9:55:00 EST, Height, 76, kg, 04/12/22 16:37:00 EST, Dry Weight Start Date: 05/02/22 Stop Date: 07/31/22 Status: Ordered Norvasc 5 mg oral tablet 5 mg, 1, tablet, By Mouth, Daily, # 90 tablet, Refills 3, Tot. Refills 3, Maintenance, 03/09/22 11:54:00 EST, Route to Pharmacy Electronically, [facility]/pharmacy #[id number], 160, cm, 03/09/22 10:43:00 [...] 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 Start Date: 03/09/22 Status: Ordered Lkk-lzm-bsdkb medical-grade oxford diabetic shoes, depth or hightop Luw-djp-zzlel medical-grade oxford diabetic shoes, depth or hightop, [...] 08/19/22 Stop Date: 09/16/22 Status: Ordered Pen [place], 32 G x 4 mm BD Ultra [...] 3 Refills, Maintenance, 03/09/22 11:42:00 EST, Capsule, [facility]/pharmacy #[id number], 160, cm, 03/09/22 10:43:00 [...] the same time every day Given by Mobile Security Architect, Dr. Michael Berkowitz, # 60 each, 0 Refills, Maintenance, 07/21/21 11:59:00 EDT, Powder, Partial fill upon patient request if the prescription is for a schedule II opi... Start Date: 07/21/21 Status: Ordered Tresiba FlexTouch 200 units/mL subcutaneous solution See Instructions, INJECT 42 UNITS DAILY AT 9PM E11.9 90 day, # 21 mL, 3 Refills, 03/09/22 17:14:00 EST, [facility]/pharmacy #[id number], 160, cm, 03/09/22 10:43:00 EST, Height, 78, kg, 01/14/22 19:37:00 EDT, Dry Weight Start Date: 03/09/22 Status: Ordered Ventolin HFA 108 mcg/inh inhalation aerosol with adapter 2 puffs, Inhalation, 4 times a day, PRN Wheezing/Shortness of Breath, dispense when patient requestit, # 18 Gm, 5 Refills, Maintenance, 11/09/20 12:36:00 EDT, [facility]/pharmacy #1026, 160, cm, 10/22/20 9:15:00 [...] 03/09/22 Stop Date: 06/01/22 Status: Ordered [place] Reusable Bed Pad 34 x 36 [place] Reusable Bed Pad 34 x 36 , [...] Confirmed 12/29/11 Active Hepatitis C 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 06/16/08 SURGEON: Danny Marie M.D. SISAL PICKER: Naima Bowling M.D. 22b/l submassive PE diagnosed on Dec 20 in [facility] 23TTE 12/22/15 in [facility]: RV dilatation, RVSP 46 24Per ECHO 05/24/17 Trace mitral regurgitation , trace TC regurgitation w no significant valve pathology 25meg colo July 2009 exc for 2 hyperplastic polyps 26Colonoscopy 2004 at [facility] [place] per letter of Dr Amor Dobbins Social [...] Member Role: Lifetime Consulting Physician Address: Address: [address] [place] [address] [facility] [address] Name: Florinda Trinh MD Position: [facility] Primary Care Physician Member Role: PCP Address: Address: [address] [place] [address] Care Team Related Persons Name: JOSE ELIAS TODD Address: [place] [address] Name: JOSE ELIAS KIRKLAND Address: home [address] [place] [id number] Name: LEONIE SCHRADER Address: [place] [address]
--- OUTSIDE RECORDS SUMMARY | 2023-10-23 09:36 | XMS_ITS | Continuity of Care Document ---
Author Organization [facility] Address [address] [place] [address]- Care Team Providers Care Wax Coating Machine Tender Name Role Phone Gayathri GARZA, Florinda Primary Care Physician Encounter [facility] Date(s): 08/11/20 - 09/10/20 [facility] [address] [place] [address]- Allergies, Adverse Reactions, Alerts Substance Reaction Severity [...] or fever, (not to exceed 2000 mg/day) nepali, # 100 tablet, 11 Refills, Maintenance, 08/14/20 10:13:00 EDT, [id number], 160, cm, 08/14/20 9:34:00 EDT, Height, 80.6, kg, 02... Start Date: 08/14/20 Status: Ordered Alcohol Wipes See Instructions, # 150 each, Refills 11, Tot. Refills 11, Maintenance, Use to check blood sugar, up to 5 times daily. E11.65, IDDM, 01/21/20 14:41:00 EDT, Compound, 167, cm, 01/13/20 8:54:00 EDT, Height, 78.8, kg, 01/01/20 3:41:00 EDT, Dry Weight Start Date: 01/21/20 Status: Ordered amLODIPine 5 mg oral tablet 5 mg, 1, tablet, By Mouth, Daily, Discontinue amlodipine 2.5 mg and hydrochlorothiazide 12.5 mg, # 30 tablet, Refills 11, Tot. Refills 11, Maintenance, 07/16/20 15:26:00 EDT, Route to Pharmacy Electronically, [facility]/pharmacy #[id number], 160, cm, 06/12/20 9:01... Start Date: 07/16/20 Status: Ordered ammonium lactate 12% topical cream 1 applicator, Topically, 2 times a day, # 280 Gm, 11 Refills, Maintenance, 01/27/20 19:13:00 EDT, [facility]/pharmacy #[id number], 1 applicator Topically 2 times a day, 167, cm, 01/13/20 8:54:00 EDT, Height, 78.8, kg, 01/01/20 3:41:00 EDT, Dry Weight Start Date: 01/27/20 Status: Ordered Baqsimi Two Pack 3 mg nasal powder = 3 mg, Naris, Right, Once, Please use for a low blood sugar emergency, may repeat in 15 minutes, #2 each, 3 Refills, Soft Stop, 06/26/20 7:30:00 EDT, [facility]/pharmacy #[id number], Partial fill upon patient request if the prescription is for a schedule II op... Start Date: 06/26/20 Status: Ordered calcium (as citrate)-vitamin D 315 mg-250 intl units oral tablet 2 tablet, By Mouth, 2 times a day, for 30 days, calcium citrate, # 120 tablet, 11 Refills, Hard Stop 01/21/21 19:13:00 EDT, 01/27/20 19:13:00 EDT, Tablet, [facility]/pharmacy #1026, 167, cm, 01/13/20 8:54:00 EDT, Height, 78.8, kg, 01/01/20 3:41:00 EDT, Dry... Start Date: 01/27/20 Stop Date: 01/21/21 Status: Ordered capsaicin 0.025% topical cream 1 application, Topically, 3 times a day, # 90 Gm, 11 Refills, Maintenance, 02/10/20 11:22:00 EST, Cream, [facility]/pharmacy #1026, 1 application Topically 3 times [...] Refills, Maintenance, 01/27/20 19:13:00 EDT, EC Capsule, [facility], 167, cm, 01/13/20 8:54:00 EDT, [...] Take preferrably with juice., # 90 tablet, 1 Refills, Maintenance, 08/31/20 14:45:00 EDT, [facility]/pharmacy #1026, 160, cm, 08/14/20 9:34:00 EDT... Start Date: 08/31/20 Status: Ordered Freestyle Lite Test Strips See [...] capsule = 12.5 mg, By Mouth, Daily, PRN leg swelling, # 90 capsule, 0 Refills, Maintenance, 08/28/20 17:52:00 EDT, [facility]/pharmacy #1026, 160, cm, 08/14/20 9:34:00 EDT, Height, 80.6, kg, 06/03/20 19:00:00 EST, Dry Weight Start Date: 08/28/20 Stop Date: 11/26/20 Status: Ordered ketotifen 0.025% ophthalmic solution 1 drops, Eyes, Both, Every 12 hours, PRN as needed for eye allergy, # 7.5 mL, 11 Refills, Maintenance, 01/27/20 19:13:00 EDT, [facility]/pharmacy #1026, 1 drops Eyes, Both Every [...] 06/24/20 9:08:00 EDT, Route to Pharmacy Electronically, [facility]/pharmacy #[id number], 160, cm, 06/12/20 9:01:00 EST, Height, 80... Start Date: 06/24/20 Status: Ordered NovoLOG FlexPen 100 units/mL subcutaneous solution See Instructions, Inject up to 26 untis via Insulin sliding scale 3x a day w/meals,MAX daily dose 78 units, E11.65, # 45 mL, 6 Refills, Maintenance, 01/21/20 14:30:00 EDT, [facility]/pharmacy #1026, 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 Start Date: 01/21/20 Status: Ordered Syw-xxd-qzsgf medical-grade oxford diabetic shoes, depth or hightop Bxc-odi-ophkv medical-grade oxford diabetic shoes, depth or hightop, [...] days, PRN pain dispense not earlier than 10/30/20, # 168 tablet, Refills 0, Tot. Refills 0, Acute 11/27/20 10:25:00 EDT, 10/30/20 10:25:00 EDT, Route to Pharmacy Electronically, [facility]/pharmacy #1026, Part... Start Date: 10/30/20 Stop Date: 11/27/20 Status: Ordered oxyCODONE 5 mg oral tablet 5 mg, 1, tablet, By Mouth, Every 4 hours, for 28 days, PRN pain dispense not earlier than 11/27/20, # 168 tablet, Refills 0, Tot. Refills 0, Acute 12/25/20 10:25:00 EDT, 11/27/20 10:25:00 EDT, Route to Pharmacy Electronically, [facility]/pharmacy #1026, Part... Start Date: 11/27/20 Stop Date: 12/25/20 Status: Ordered oxyCODONE 5 mg oral tablet 5 mg, 1, tablet, By Mouth, Every 4 hours, for 28 days, PRN pain dispense not earlier than09/04/20, #168 tablet, Refills 0, Tot. Refills 0, Acute 10/02/20 10:25:00 EDT, 09/04/20 10:25:00 EDT, Route toPharmacy Electronically, [facility]/pharmacy #1026, Parti... Start Date: 09/04/20 Stop Date: 10/02/20 Status: Ordered oxyCODONE 5 mg oral tablet 5 mg, 1, tablet, By Mouth, Every 4 hours, for 28 days, PRN pain dispense not earlier than 10/02/20, # 168 tablet, Refills 0, Tot. Refills 0, Acute 10/30/20 10:25:00 EDT, 10/02/20 10:25:00 EDT, Route to Pharmacy Electronically, [facility]/pharmacy #1026, Part... Start Date: 10/02/20 Stop Date: 10/30/20 Status: Ordered Pen Lowell, 32 G x 4 mm BD Ultra [...] Maintenance, 01/27/20 19:13:00 EDT, [facility]/pharmacy #1026, 17- 34 Gm By Mouth [...] Route to Pharmacy Electronically, [facility]/pharmacy #1026 Tablet, 167, cm, 01/13/20 8:5... [...] Route to Pharmacy Electronically, [facility]/pharmacy #1026, 167,... Start Date: 05/01/20 Status: [...] for muscle spasm, # 42 tablet, Refills 0, Tot. Refills 0, Maintenance, 08/14/20 10:39:00 EDT, Route to Pharmacy Electronically, [facility]/pharmacy #1026,Partial fill upon patient request if the prescrip... Start Date: 08/14/20 Stop Date: 08/28/20 Status: Ordered Trelegy Ellipta inhalation powder 1 puffs, Inhalation, Daily, at the same time every day given by manufacturing worker , Dr Berkowitz, # 60 each, [...] Date: 06/12/20 Stop Date: 09/04/20 Status: Ordered Comanche Reusable Bed Pad 34 x 36 Comanche Reusable Bed Pad 34 x 36 , See Instructions, # 1 each, Refills 11, Tot. 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 analgesic-LBP(Confirmed) 12 Active Hypercholesterolemia(Confirmed) Active Hyperparathyroidism s/p righ t lower parathyroidectomy 06/16/2008(Confirmed) Active Hypertension(Confirmed) Active Hysterectomy(Confirmed) Active Incontinence of urine(Confirmed) Active Iron deficiency anemia(Confirmed) Active Left ventricular hypertrophy(Confirmed) 13 Active 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 6insulin dependent 7Per ECHO 05/24/1718 [...] 1 11left mild sensorineural hearing loss by [facility] Hearing Evaluation on 12/29/11 12Narcotic contract [...] lower parathyroidectomy. 06/16/08 SURGEON: Danny Marie M.D. HAT CONE INSPECTOR: Naima Bowling M.D. 21b/l submassive PE diagnosed on Dec [address] [facility] 22TTE 12/22/[address] [facility]: RV dilatation, RVSP 46 23Per ECHO 05/24/17 Trace mitral regurgitation , trace TC regurgitation w no significant valve pathology 24meg colo July 2009 exc for 2 hyperplastic polyps 25[address] [facility] [place] per letter of Dr Amor Dobbins Social History Social History Type Response Smoking Status Never (less than 100 in lifetime) entered on: 09/10/20 Sex
--- OUTSIDE RECORDS SUMMARY | 2023-10-23 09:37 | XMS_ITS | Continuity of Care Document ---
Author Organization [facility] Address [address] [place] [address]- Care Team Providers Care Fifth Hand Name Role Phone Florinda Trinh MD Primary Care Physician Encounter [facility] Date(s): 11/02/21 - 12/02/21 [facility] [address], [place] [address] Attending Physician: Yaya Patino Admitting Physician: AdmtrYaya Referring Physician: Admtr, Ar8 Allergies, Adverse Reactions, Alerts Substance Reaction Severity Status penicillin RASH Active morphine itchy Active Bactrim 1 hyperkalemia Active Lidocaine, Topical Active 1Hyperkalemia when used together with lisinopril Immunizations Given and Recorded Vaccine Date Status Refusal Reason zoster vaccine, inactivated 09/15/21 Given SARS-CoV-2 mRNA (ctygmpc-lcps-[id number]) vax 09/15/21 Given SARS-CoV-2 (COVID-19) mRNA BNT-162b2 [...] or fever, (not to exceed 2000 mg/day) ukrainian, # 100 tablet, 11 Refills, Maintenance, 04/28/21 13:24:00 EST, [facility], 160, cm, 04/28/21 9:50:00 EST, Height, [...] 11 Refills, Maintenance, 07/21/21 12:43:00 EDT, [facility]/pharmacy #1026, 1 applicator Topically 2 times a [...] Biotene Moisturizing Mouth oral spray See Instructions, Bluford directly into mouth; spray is safe to swallow as needed for dry mouth, # 45mL, 11 Refills, Maintenance, 07/21/21 12:43:00 EDT, [facility], Bluford directly into mouth; spray is safe to [...] needed for anxiety and 1tab at HS btihal-eog-ioerz, # 60 tablet, 11 Refills, Maintenance, 09/15/21 9:02:00 EDT, [facility]/pharmacy #1026, Partial fill upon patient request... Start Date: 09/15/21 Status: Ordered capsaicin 0.025% topical cream 1 application, Topically, 3 times a day, # 35 Gm, 11 Refills, Maintenance, 07/21/21 12:26:00 EDT, Cream, [facility]/pharmacy #1026, 1 application Topically 3 times a [...] 11 Refills, Maintenance, 04/21/21 18:12:00 EST, Tablet, [facility]/pharmacy #1026, 160, cm, 03/03/21 11:23:00 EST, Height, 80.6, kg, 06/03/20 19:00:00 EST, Dry Weight Start Date: 04/21/21 Status: Ordered escitalopram 20 mg oral tablet 1 tablet = 20 mg, By Mouth, Daily, Discontinue duloxetine 60 mg, # 30 tablet, 11 Refills, Maintenance, 12/09/20 11:15:00 EDT, Tablet, [facility]/pharmacy #1026, Partial fill upon patient request if [...] 3 Refills, Maintenance, 07/12/21 18:53:00 EDT, Tablet,[facility]/pharmacy #1026, Discontinue 30- day supply presc... Start Date: 07/12/21 Stop Date: 07/07/22 Status: Ordered ferrous sulfate 325 mg oral tablet 1 tablet = 325 mg, By Mouth, Daily, May take with food to minimize abdominal discomfort. Do not take with milk. Take preferrably with juice., # 90 tablet, 3 Refills, Maintenance, 09/15/21 8:56:00 EDT, [facility]/pharmacy #1026, 160, cm, 09/15/21 8:15:00 EDT,... Start [...] Status: Ordered Freestyle rony 2 sensor Freestyle rnoy 2 sensor, See Instructions, # 2 each, [...] 04/28/21 14:34:00 EST, Route to Pharmacy Electronically, [facility]/pharmacy #1026, Can use with HCTZ, 160, cm, [...] capsule, 3 Refills, Maintenance, 11/19/21 14:28:00 EDT, [facility]/pharmacy #1026, 160, cm, 11/05/21 9:50:00 EDT, Height, 80.5, kg, 11/05/21 9:50:00 EDT, Dry Weight Start Date: 11/19/21 Stop Date: 11/14/22 Status: Ordered ketotifen 0.025% ophthalmic solution 1 drops, Eyes, Both, Every 12 hours, PRN as needed for eye allergy, # 7.5 mL, 11 Refills, Maintenance, 06/25/21 8:34:00 EDT, [facility]/pharmacy #1026, 1 drops Eyes, Both Every 12 [...] LOS HDZ, # 90 tablet, 1 Refills, [facility], 90, TOME GAGE TABLETA POR VIA ORAL TODOS LOS HDZ, 160, cm, 09/21/21 8:54:00 EDT, Height, 80.6,kg, 06/03/20 19:00:00 EST, Dry Weight Start Date: 10/13/21 Status: Ordered Nexium 40 mg oral enteric coated capsule 1 capsule = 40 mg, By Mouth, Daily, 30 minutes before breakfast, # 30 capsule, 11 Refills, Maintenance, 04/28/21 14:00:00 EST, [facility]/pharmacy #1026, Discontinue pantoprazole, 160, cm, 04/28/21 9:50:00 EST, Height, 80.6, kg, 06/03/20 19:00:00 EST, Dry We... Start Date: 04/28/21 Stop Date: 04/23/22 Status: Ordered nitroglycerin 0.3 mg sublingual tablet 1 tablet = 0.3 mg, Sublingual, Every 5 minutes, PRN as needed for chest pain, not to exceed 3 doses/15 min--if pain persists, seek medical attention, # 100 tablet, 0 Refills, Maintenance, 09/21/21 9:23:00 EDT, Tablet, [facility], P... Start Date: 09/21/21 Status: Ordered Norvasc 5 mg oral tablet 5 mg, 1, tablet, By Mouth, Daily, # 30 tablet, Refills 0, Tot. Refills 0, Maintenance, 09/21/21 9:23:00 EDT, Route to Pharmacy Electronically, [facility], Partial fill upon patient request if the prescription is for a schedule II o... Start Date: 09/21/21 Status: Ordered NovoLOG FlexPen 100 units/mL subcutaneous solution See Instructions, Inject up to 26 untis via Insulin sliding scale 3x a day w/meals,MAX daily dose 78 units, E11.65, # 45 mL, 6 Refills, Maintenance, 01/21/20 14:30:00 EDT, [facility]/pharmacy #1026, 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 Start Date: 01/21/20 Status: Ordered Umk-vtx-otjoo medical-grade oxford diabetic shoes, depth or hightop Hmk-omy-cvrax medical-grade oxford diabetic shoes, depth or hightop, [...] days, PRN pain dispense not earlier than 11/29/21 Please dispense KVTek brand (K18) If oxycodone 5 mg tablet is not available, it can be switched to oxycodone 10 mg 0.5 tablets 4 hours x28 days f... Start Date: 11/29/21 Stop Date: 12/27/21 Status: Ordered Pen Sasabe, 32 G x 4 mm BD Ultra [...] 04/28/21 14:02:00 EST, Route to Pharmacy Electronically, [facility]/pharmacy #1026, 160... Start Date: 04/28/21 Stop Date: [...] Gm,11 Refills, Maintenance, 01/27/20 19:13:00 EDT, [facility]/pharmacy #1026, 17- 34 Gm By Mouth Daily,PRN:asneeded [...] 11 Refills, Maintenance, 04/28/21 14:03:00 EST, Tablet, [facility]/pharmacy #1026, 160, cm, 04/28/21 9:50:00 EST, Height, 80.6, kg, 06/03/20 19:00:00 EST, Dry Weight Start Date: 04/28/21 Status: Ordered Senna-Time 8.6 mg oral tablet 2 tablet, By Mouth, 2 times a day, PRN NEEDED FOR CONSTIPATION,INSTR, DISCONTINUE DOCUSATE, # 60tablet, 11 Refills, [id number], 160, cm, 03/03/21 11:23:00 EST, Height, 80.6, [...] 02/22/21 17:50:00 EST, Route to Pharmacy Electronically, [facility]/pharmacy #1026, 1... Start Date: 02/22/21 Status: Ordered tamsulosin 0.4 mg oral capsule See Instructions, TOME 1 CAPSULA POR VIA ORAL TODOS LOS HDZ, # 30 capsule, Refills 0, InstructionsReplace Required Details, Route to Pharmacy Electronically, [id number], 160, cm, 09/21/21 8:54:00 EDT, Height, 80.6, kg, 06/03/20 19:00:00 EST, DrEvelyn. Start Date: 10/08/21 Status: Ordered TENS electrode pads TENS electrode [...] for muscle spasm, # 42 tablet, Refills 11, Tot.Refills 11, Maintenance, 09/15/21 9:03:00 EDT, Route to Pharmacy Electronically, [facility]/pharmacy #1026, Partial fill upon patient request if the prescri... Start Date: 09/15/21 Stop Date: 03/02/22 Status: Ordered Trelegy Ellipta inhalation powder 1 puffs, Inhalation, Daily, at the same time every day Given by Data Center Solutions Architect, Dr. Michael Berkowitz, # 60 each, 0 Refills, Maintenance, 07/21/21 11:59:00 EDT, Powder, Partial fill upon patient request if the prescription is for a schedule II opi... Start Date: 07/21/21 Status: Ordered Tresiba FlexTouch 200 units/mL subcutaneous solution See Instructions, INJECT 86 UNITS DAILY AT 9PM, # 45 Unknown, 6 Refills, [facility], 160, cm, 06/21/21 9:57:00 EDT, Height, 80.6, kg, 06/03/20 19:00:00 EST, Dry Weight Start Date: 06/22/21 Status: Ordered Ventolin HFA 108 mcg/inh inhalation aerosol with adapter 2 puffs, Inhalation, 4 times a day, PRN Wheezing/Shortness of Breath, dispense when patient requestit, # 18 Gm, 5 Refills, Maintenance, 11/09/20 12:36:00 EDT, [facility]/pharmacy #1026, 160, cm, 10/22/20 9:15:00 EDT, Height, 80.6, kg, 06/03/20 19:00:00 EST,... Start Date: 11/09/20 Status: Ordered Voltaren 1% topical gel = 2 Gm, Topically, 4 times a day, # 100 Gm, 5 Refills, Maintenance, 11/08/21 11:40:00 EST, [facility], 2 Gm Topically 4 times a day,x14 days, 160, cm, 02/15/21 8:47:00 EST, Height, 80.6, kg, 06/03/20 19:00:00 EST, Dry Weight Start Date: 02/15/21 Stop Date: 05/10/21 Status: Ordered Paris Reusable Bed Pad 34 x 36 Paris Reusable Bed Pad 34 x 36 , [...] Compound Start Date: 04/28/21 Status: Ordered Zofran 4 mg oral tablet 1 tablet = 4 mg, By Mouth, Every 8 hours, PRN Nausea & Vomiting, # 15 tablet, 1 Refills, Maintenance, 06/04/21 16:16:00 EST, Tablet, [facility]/pharmacy #1026, Partial fill upon patient request if [...] abnormal(Confirmed) 11 12/29/11 Active Hepatitis C(Confirmed) Active care home current use of opi ate analgesic-LBP(Confirmed) 12 [...] JENNIFER (obstructive sleep apnea)(Confirmed) Active Osteopenia(Confirmed) 18, 19, 20 11/16/12 Active *[phone] [facility](Confirmed) Active Peripheral venous insufficiency(Confirmed) 10/31/11 Active Positive PPD(Confirmed) 10/09/14 Active Primary hyperparathyroidism( Confirmed) 21 Active Psychophysiological insomnia(Confirmed) Active Bilateral pulmonary embolism(Confirmed) 22 12/21/15 Active Pulmonary embolism(Confirmed) Active Pulmonary hypertension(Confirmed) Active Restless leg syndrome(Confirmed) Active Right ventricular dilation(C onfirmed) 23 12/22/15 Active Seasonal allergic rhinitis(Confirmed) Active Subclinical hypothyroidism(Confirmed) Active TR (tricuspid regurgitation)(Confirmed) 24 05/24/17 Active Tubular adenoma(Confirmed) 25, 26 04/10/04 Active Calcium oxalate crystals in urine(Confirmed) [...] 2 peroneal veins diagnosed on Dec 20 [facility] 6insulin dependent 7Per ECHO 05/24/1718 Grade I, [...] 1 11left mild sensorineural hearing loss by [facility] Hearing Evaluation on 12/29/11 12Narcotic contract w [...] lower parathyroidectomy. 06/16/08 SURGEON: Danny Marie M.D. DRUM TENDER: Naima Bowling M.D. 22b/l submassive PE diagnosed on Dec 20 in [facility] 23TTE 12/22/15 in [facility]: RV dilatation, RVSP 46 24Per ECHO 05/24/17 Trace mitral regurgitation , trace TC regurgitation w no significant valve pathology 25meg colo July 2009 exc for 2 hyperplastic polyps 26Colonoscopy 2004 at [facility] [place] per letter of Dr Amor Dobbins Social History Social History Type Response Smoking Status Never (less than 100 in lifetime) entered on: 10/22/20 Sex Care Team Personnel Name: Gayathri GARZA, Florinda Address: [address] [place] [address]
--- OUTSIDE RECORDS SUMMARY | 2023-10-23 09:37 | XMS_ITS | Continuity of Care Document ---
Author Organization [facility] Address [address] [place] [address]- Care Team Providers Care Director Of Donor Relations Name Role Phone Gayathri GARZA, Florinda Primary Care Physician [facility]counter [facility] Date(s): 07/26/22 - 08/25/22 [facility]/[address] [address]- [place] Allergies, Adverse Reactions, Alerts Substance Reaction Severity Status enalapril Active penicillin RASH Active morphine itchy Active Bactrim 1 hyperkalemia Active Lidocaine, Topical Active 1Hyperkalemia when used together with lisinopril Immunizations Given and Recorded Vaccine Date Status Refusal Reason [id number] 12y+ bivalent booster vax 05/25/22 Given influenza [...] zoster vaccine, inactivated 09/15/21 Given SARS-CoV-2 mRNA ([id number]) vax 09/15/21 Given SARS-CoV-2 (COVID-19) mRNA [id number] [...] Refills, Maintenance, 05/25/22 12:08:00 EST, ER Tablet, [facility]/pharmacy #[id number], Discontinue Motrin, 158, [...] Gm, 11 Refills, Maintenance, 07/21/21 12:43:00 EDT, [facility]/pharmacy #[id number], 1 applicator Topically [...] 3 Refills, Soft Stop, 03/09/22 11:35:00 EST, [facility]/pharmacy #[id number], 160, cm, 03/09/22 10:43:00EST, Height, 78, kg, 01/14/22 19:37:00 EDT, Dry W... Start Date: 03/09/22 Status: Ordered Biotene Moisturizing Mouth oral spray See Instructions, Spencer directly into mouth; spray is safe to swallow as needed for dry mouth, # 45mL, 11 Refills, Maintenance, 05/25/22 12:42:00 EST, [facility]/pharmacy #[id number], Partial fill upon [...] P.M. NEEDED & 1 TAB [facility], # 180 tablet, 1 Refills, Maintenance, 08/05/22 12:49:00 EDT, [id number], 158, cm, 07/12/22 11:54:00 EDT, Height, 76, kg, 05/07/22 6:04:00 ES... Start Date: 08/05/22 Status: Ordered capsaicin 0.025% topical cream 1 application, Topically, 3 times a day, # 35 Gm, 11 Refills, Maintenance, 07/21/21 12:26:00 EDT, Cream, [facility]/pharmacy #[id number], 1 application Topically [...] 11 Refills, Maintenance, 12/06/21 15:04:00 EDT, Tablet, [facility], Partial fill upon patient request if the prescription is for a schedule II opioid drug., 160, cm, 11/23/21 14:47:00 ED... Start Date: 12/06/21 Status: Ordered esomeprazole 40 mg oral enteric coated capsule See Instructions, TAKE 1 CAPSULE BY MOUTH DAILY 30 MINUTES BEFORE BREAKFAST, # 30 capsule, 2 Refills, Maintenance, 08/05/22 12:49:00 EDT, [id number], 158, cm, 07/12/22 11:54:00 EDT, Height, 76, kg, 05/07/22 6:04:00 EST, Dry Weight Start Date: 08/05/22 Status: Ordered famotidine 40 mg oral tablet 1 tablet = 40 mg, By Mouth, Daily at bedtime, If 40 mg tablet is not available, can be changed to 20 mg tablet 2 tablet at bedtime, # 90 tablet, 3 Refills, Maintenance, 07/12/21 18:53:00 EDT, Tablet,[facility]/pharmacy #[id number], Discontinue 30- day supply presc... Start Date: 07/12/21 Stop Date: 07/07/22 Status: Ordered ferrous sulfate 325 mg oral tablet 1 tablet = 325 mg, By Mouth, Daily, May take with food to minimize abdominal discomfort. Do not take with milk. Take preferrably with juice., # 90 tablet, 3 Refills, Maintenance, 09/15/21 8:56:00 EDT, [facility]/pharmacy #[id number], 160, cm, 09/15/21 [...] LUCIANO GAGE TABLETA POR VIA ORAL CADA MANSABINO, # 90 tablet, 0 Refills, Maintenance, 07/08/22 9:47:00 EDT, [id number], 158, cm, 06/16/22 11:27:00 EST, Height, 76, kg, 05/07/22 6:04:00 EST, Dry Weight Start Date: 07/08/22 Status: Ordered ketotifen 0.025% ophthalmic solution 1 drops, Eyes, Both, Every 12 hours, PRN as needed for eye allergy, # 7.5 mL, 11 Refills, Maintenance, 06/25/21 8:34:00 EDT, [facility]/pharmacy #[id number], 1 drops Eyes, [...] 90 tablet, 3 Refills, 03/09/22 11:57:00 EST, [facility]/pharmacy #[id number], 1 tablet By Mouth Daily before dinner,PRN:allergies, 160, cm, 03/09/22 10:43:00 EST, Height, 78, kg, 01/14/22 19:37:00 ED... Start Date: 03/09/22 Status: Ordered montelukast 10 mg oral tablet 10 mg, 1, tablet, By Mouth, Daily at bedtime, # 90 tablet, Refills 3, Tot. Refills 3, Maintenance, 03/09/22 11:37:00 EST, Route to Pharmacy Electronically, [facility]/pharmacy #[id number], 160, cm, 03/09/22 10:43:00 EST, Height, 78, kg, 01/14/22 19:37:00 EDT, Dry... Start Date: 03/09/22 Stop Date: 03/04/23 Status: Ordered Norvasc 5 mg oral tablet 5 mg, 1, tablet, By Mouth, Daily, # 90 tablet, Refills 3, Tot. Refills 3, Maintenance, 03/09/22 11:54:00 EST, Route to Pharmacy Electronically, [facility]/pharmacy #[id number], 160, cm, 03/09/22 [...] 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 Start Date: 03/09/22 Status: Ordered Lue-wai-wdmzh medical-grade oxford diabetic shoes, depth or hightop Tel-lln-tkuep medical-grade oxford diabetic shoes, depth or hightop, [...] 08/19/22 Stop Date: 09/16/22 Status: Ordered Pen [place], 32 G x 4 mm BD Ultra [...] tablet, 11 Refills, Maintenance, 03/09/22 11:39:00 EST, [facility]/pharmacy #[id number], 160, cm, 03/09/22 [...] the same time every day Given by Personal Security Specialist, Dr. Michael Berkowitz, # 60 each, 0 [...] Gm, 5 Refills, Maintenance, 11/09/20 12:36:00 EDT, [facility]/pharmacy #[id number], 160, cm, 10/22/20 9:15:00 EDT, Height, 80.6, kg, 06/03/20 19:00:00 EST,... Start Date: 11/09/20 Status: Ordered Voltaren 1% topical gel = 2 Gm, Topically, 4 times a day, # 100 Gm, 5 Refills, Maintenance, 03/09/22 11:55:00 EST, [facility]/pharmacy #[id number], 2 Gm Topically 4 times a day,x14 days, 160, cm, 03/09/22 10:43:00 EST, Height, 78, kg, 01/14/22 19:37:00 EDT, Dry Weight Start Date: 03/09/22 Stop Date: 06/01/22 Status: Ordered [place] Reusable Bed Pad 34 x 36 [place] Reusable Bed Pad 34 x 36 , [...] Confirmed 12/29/11 Active Hepatitis C Confirmed Active prison current use of opiate analgesic-LBP 12 Confirmed [...] Osteopenia 18, 19, 20 Confirmed 11/16/12 Active *[id number] Orientation & Mobility Specialist Karine More Confirmed Active Peripheral venous insufficiency [...] 2 peroneal veins diagnosed on Dec 20 [facility] 6insulin dependent 7Per ECHO 05/24/1718 [...] 1 11left mild sensorineural hearing loss by [facility] Hearing Evaluation on 12/29/11 12Narcotic contract w [...] lower parathyroidectomy. 06/16/08 SURGEON: Danny Marie M.D. RN SEXUAL ASSAULT: Naima Bowling M.D. 22b/l submassive PE diagnosed on Dec 20 in [facility] TTE 12/22/15 in [facility]: RV dilatation, RVSP 46 24Per ECHO 05/24/17 Trace mitral regurgitation , trace TC regurgitation w no significant valve pathology 25meg colo July 2009 exc for 2 hyperplastic polyps 26[address] [facility] [place] per letter of Dr Amor Dobbins Social History Social History Type Response Smoking Status Never (less than 100 in lifetime) entered on: 10/22/20 Sex Patient Care team information Care Team Personnel Name: Diamond Weiss RN Position: [facility] RN Member Role: Primary Care Nurse Name: Tiara Cavazos RN Position: [facility] OB RN Member Role: Primary Care Nurse Name: Shreya Boss RN Position: [facility] RN Member Role: Primary Care Nurse Name: Jaylin Hernandez RN Position: [facility] Onco RN Member Role: Primary Care Nurse Name: Glen Cota MD Position: [facility] Renal MD Member Role: Lifetime Consulting Physician Address: Address: [address] [place] [address] [facility] [address] Name: Florinda Trinh MD Position: [facility] Primary Care Physician Member Role: PCP Address: Address: [address] [place] [address] Care Team Related Persons Name: JOSE ELIAS TODD Address: [place] [address] Name: JOSE ELIAS KIRKLAND Address: home [address] [place] [id number] Name: LEONIE SCHRADER Address: [place] [address]
--- OUTSIDE RECORDS SUMMARY | 2023-10-23 09:37 | XMS_ITS | Continuity of Care Document ---
Author Organization [facility] Address [address] [place] [address]- Care Team Providers Care Assistant Professor Name Role Phone Gayathri GARZA, Florinda Primary Care Physician [facility] Date[facility]): 09[facility]23[facility]20 - 10/23/20 [facility] [address] [place] [address]- Allergies, Adverse Reactions, Alerts Substance Reaction Severity [...] or fever, (not to exceed 2000 mg/day) slovak, # 100 tablet, 11 Refills, Maintenance, 08/14/20 10:13:00 EDT, [facility]/pharmacy #[id number], 160, cm, 08/14/20 9:34:00 [...] 01/21/21 19:13:00 EDT, 01/27/20 19:13:00 EDT, Tablet, [id number], 167, cm, 01/13/20 8:54:00 [...] home. D... Start Date: 07/19/17 Status: Ordered Crestor 10 mg oral tablet 1 tablet = 10 mg, By Mouth, Daily, # 30 tablet, 0 Refills, Maintenance, 10/22/20 10:11:00 EDT, Tablet, [facility]/pharmacy #1026, 160, cm, 10/22/20 9:15:00 EDT, Height, 80.6, kg, 06/03/20 19:00:00 EST, Dry Weight Start Date: 10/22/20 Status: Ordered Cymbalta 60 mg oral enteric coated capsule 1 capsule = 60 mg, By Mouth, Daily, Decrease dose, # 30 capsule, 11 Refills, Maintenance, 01/27/20 19:13:00 EDT, EC Capsule, [facility]/pharmacy #[id number], 167, cm, 01/13/20 8:54:00 EDT, Height, 78.8, kg, 01/01/20 3:41:00 EDT, Dry Weight Start Date: 01/27/20 Status: Ordered Eliquis 5 mg oral tablet 1 tablet = 5 mg, By Mouth, 2 times a day, # 60 tablet, 11 Refills, Maintenance, 02/10/20 11:22:00 EST, Tablet, [facility]/pharmacy #1026, 167, cm, 01/13/20 8:54:00 EDT, Height, 78.8, kg, 01/01/20 3:41:00 EDT, Dry Weight Start Date: 02/10/20 Status: Ordered famotidine 40 mg oral tablet 1 tablet = 40 mg, By Mouth, Daily at bedtime, If 40 mg tablet is not available, can be changed to 20 mg tablet 2 tablet at bedtime, # 90 tablet, 3 Refills, Maintenance, 06/30/20 14:55:00 EDT, Tablet,[facility]/pharmacy #1026, Discontinue 30- day supply presc... Start Date: 06/30/20 Stop Date: 06/25/21 Status: Ordered Freestyle Lite Test Strips See [...] 78.8, kg,... Start Date: 01/21/20 Status: Ordered Ejm-vgv-rxxab medical-grade oxford diabetic shoes, depth or hightop Bad-jwd-rzpun medical-grade oxford diabetic shoes, depth or hightop, [...] 10/30/20 10:25:00 EDT, Route to Pharmacy Electronically, [facility]/pharmacy #[id number], Part... Start Date: 10/30/20 Stop Date: 11/27/20 Status: Ordered oxyCODONE 5 mg oral tablet 5 mg, 1, tablet, By Mouth, Every 4 hours, for 28 days, PRN pain dispense not earlier than 11/27/20, # 168 tablet, Refills 0, Tot. Refills 0, Acute 12/25/20 10:25:00 EDT, 11/27/20 10:25:00 EDT, Route to Pharmacy Electronically, [facility]/pharmacy #1026, Part... Start Date: 11/27/20 Stop Date: 12/25/20 Status: Ordered oxyCODONE 5 mg oral tablet 5 mg, 1, tablet, By Mouth, Every 4 hours, for 28 days, PRN pain dispense not earlier than 10/02/20, # 168 tablet, Refills 0, Tot. Refills 0, Acute 10/30/20 10:25:00 EDT, 10/02/20 10:25:00 EDT, Route to Pharmacy Electronically, [facility]/pharmacy #[id number], Part... Start Date: 10/02/20 Stop Date: 10/30/20 Status: Ordered oxyCODONE 5 mg oral tablet 5 mg, 1, tablet, By Mouth, Every 4 hours, for 28 days, PRN pain dispense not earlier than 12/25/20, # 168 tablet, Refills 0, Tot. Refills 0, Acute 01/22/21 10:25:00 EDT, 12/25/20 10:25:00 EDT, Route to Pharmacy Electronically, [facility]/pharmacy #1026, Part... Start Date: 12/25/20 Stop Date: 01/22/21 Status: Ordered oxyCODONE 5 mg oral tablet 5 mg, 1, tablet, By Mouth, Every 4 hours, for 28 days, PRN pain dispense not earlier than 10/02/20, # 168 tablet, Refills 0, Tot. Refills 0, Acute 11/27/20 10:25:00 EDT, 10/30/20 10:25:00 EDT, Route to Pharmacy Electronically, [facility]/pharmacy #[id number], Part... Start Date: 10/30/20 Stop Date: 11/27/20 Status: Ordered Pen [place], 32 G x 4 mm BD Ultra [...] 527 Gm,11 Refills, Maintenance, 01/27/20 19:13:00 EDT, [facility]/pharmacy #1026, 17- 34 Gm By [...] 02/10/20 11:22:00 EST, Route to Pharmacy Electronically, [facility]/pharmacy #1026 Tablet, 167, cm, 01/13/20 [...] tablet, Refills 5, Tot. Refills 5, Maintenance, 10/15/20 16:28:00 EDT, Routeto Pharmacy Electronically, [facility]/pharmacy #1026, 160... Start Date: 10/15/20 Status: Ordered TENS electrode pads TENS electrode pads, See Instructions, # 1 box, Refills 5, Tot. Refills 5, Maintenance, use as directed for back pain Dx LBP M54.9 1 box of 4, 12/06/16 14:59:01, Compound Start Date: 12/06/16 Status: Ordered Trelegy Ellipta inhalation powder 1 puffs, Inhalation, Daily, at the same time every day given by [place]ai [place] , Dr Berkowitz, # 60 each, 0 [...] 19:00:00 EST,... Start Date: 06/12/20 Status: Ordered Voltaren 1% topical gel = 2 Gm, Topically, 4 times a day, # 100 Gm, 5 Refills, Maintenance, 09/22/20 12:38:00 EDT, [facility], 2 Gm Topically 4 times a day,x14 days, 160, cm, 09/10/20 9:13:00 EDT, Height, 80.6, kg, 06/03/20 19:00:00 EST, Dry Weight Start Date: 09/22/20 Stop Date: 12/15/20 Status: Ordered [place] Reusable Bed Pad 34 x 36 [place] Reusable Bed Pad 34 x 36 , [...] 11 Refills, Maintenance, 10/22/20 10:19:00 EDT, Tablet, [facility]/pharmacy #1026, Partial fill upon patient request if the prescription is for a schedule II opioid drug., 1 tablet B... 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(Confirmed) 12 Active Hypercholesterolemia(Confirmed) Active Hyperparathyroidism s/p righ t lower parathyroidectomy 06/16/2008(Confirmed) Active Hypertension(Confirmed) Active Hysterectomy(Confirmed) Active Incontinence of urine(Confirmed) Active Iron deficiency anemia(Confirmed) Active Left ventricular hypertrophy(Confirmed) 13 Active 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) Active Memory impairment(Confirmed) Active Mitral regurgitation(Confirmed) 14 05/24/17 Active Nephrolithiasis(Confirmed) 15, 16, 17 06/11/02 Active Obesity(Confirmed) Active JENINFER (obstructive sleep apnea)(Confirmed) Active Osteopenia(Confirmed) 18, 19 11/16/12 Active *[id number] Cheri Partn igor More(Confirmed) Active Peripheral venous [...] 2 peroneal veins diagnosed on Dec 20 [facility] 6insulin dependent 7Per ECHO 05/24/1718 Grade [...] 1 11left mild sensorineural hearing loss by [facility] Hearing Evaluation on 12/29/11 12Narcotic contract [...] lower parathyroidectomy. 06/16/08 SURGEON: Danny Marie M.D. NUCLEAR EQUIPMENT OPERATOR: Naima Bowling M.D. 21b/l submassive PE diagnosed on Dec 20 in [facility] 22TTE 12/22/15 in [facility]: RV dilatation, RVSP 46 23Per ECHO 05/24/17 Trace mitral regurgitation , trace TC regurgitation w no significant valve pathology 24meg colo July 2009 exc for 2 hyperplastic polyps 25Colonoscopy 2004 at [facility] [place] per letter of Dr Amor Dobbins Social History Social History Type Response Smoking Status Never (less than 100 in lifetime) entered on: 10/22/20 Sex
--- OUTSIDE RECORDS SUMMARY | 2023-10-23 09:37 | XMS_ITS | Continuity of Care Document ---
Author Organization [facility] Address [address] [place] [id number]- Care Team Providers Care Meat [employer] Manager Name Role Phone Gayathri GARZA, Florinda Primary Care Physician [facility]counter [facility] Date(s): 01/13/20 - 02/12/20 [facility] [address] [address]- [facility] Allergies, Adverse Reactions, Alerts Substance Reaction [...] given by ELLIOTT HEWITT. 4Admin Note: DENNY CHIU, RN 5Admin Note: administered by denny chiu [...] or fever, (not to exceed 2000 mg/day) chinese, # 100 tablet, 5 Refills, Maintenance, 01/22/20 9:18:00 EDT, [facility]/pharmacy #[id number], 167, cm, 01/13/20 8:54:00 [...] 11 Refills, Maintenance, 01/26/2019:13:00 EDT, Tablet, [facility]/pharmacy #[id number], 2 tablet By Mouth 2 times a day,x30 days,Instr:calcium citrate, 167, cm, 01/13/20 8:54:00 EDT, Height, 78.8... Start Date: 01/27/20 Stop Date: 01/21/21 Status: Ordered capsaicin 0.025% topical cream 1 application, Topically, 3 times a day, # 90 Gm, 11 Refills, Maintenance, 02/10/20 11:22:00 EST, Cream, [facility]/pharmacy #1026, 1 application Topically 3 times [...] Maintenance, 01/27/20 19:13:00 EDT, EC Capsule, [facility]/pharmacy #1026, 167, cm, 01/13/20 8:54:00 EDT, Height, 78.8, kg, 01/01/20 3:41:00 EDT, Dry Weight Start Date: 01/27/20 Status: Ordered Eliquis 5 mg oral tablet 1 tablet = 5 mg, By Mouth, 2 times a day, # 60 tablet, 11 Refills, Maintenance, 02/10/20 11:22:00 EST, Tablet, [facility]/pharmacy #1026, 167, cm, 01/13/20 8:54:00 EDT, Height, 78.8, kg, 01/01/20 3:41:00 EDT, Dry Weight Start Date: 02/10/20 Status: Ordered famotidine 40 mg oral tablet 1 tablet = 40 mg, By Mouth, Daily at bedtime, If 40 mg tablet is not available, can change to 20 mgtablet 2 tablet at bedtime, # 30 tablet, 2 Refills, Maintenance, 01/22/20 9:37:00 EDT, Tablet, [facility]/pharmacy #1026, 167, cm, 01/13/20 8:54:00 EDT, Heigh... Start Date: 01/22/20 Status: Ordered ferrous sulfate 325 mg oral tablet 1 tablet = 325 mg, By Mouth, Daily, May take with food to minimize abdominal discomfort. Do not take with milk. Take preferrably with juice., # 90 tablet, 2 Refills, Maintenance, 01/22/20 9:38:00 EDT, [facility]/pharmacy #1026, 167, cm, 01/13/20 8:54:00 EDT,... [...] 4 Refills, Maintenance, 01/22/20 9:39:00 EDT, [facility]/pharmacy #1026, 167, cm, 01/13/20 8:54:00 EDT, Height, 78.8, kg, 01/01/20 3:41:00 EDT, Dry Weight Start Date: 01/22/20 Stop Date: 06/20/20 Status: Ordered ketotifen 0.025% ophthalmic solution 1 drops, Eyes, Both, Every 12 hours, PRN as needed for eye allergy, # 7.5 mL, 11 Refills, Maintenance, 01/27/20 19:13:00 EDT, [facility]/pharmacy #1026, 1 drops Eyes, Both Every [...] 9:41:00 EDT, Route to Pharmacy Electronically, [facility]/pharmacy #1026, 167, cm, 01/13/20 8:54:00 EDT, Height, 78... Start Date: 01/22/20 Status: Ordered NovoLOG FlexPen 100 units/mL subcutaneous solution See Instructions, Inject up to 26 untis via Insulin sliding scale 3x a day w/meals,MAX daily dose 78 units, E11.65, # 45 mL, 6 Refills, Maintenance, 01/21/20 14:30:00 EDT, [facility]/pharmacy #1026, 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 Start Date: 01/21/20 Status: Ordered Edw-vgt-tsirf medical-grade oxford diabetic shoes, depth or hightop Uek-bxh-fapzo medical-grade oxford diabetic shoes, depth or hightop, [...] days, PRN pain dispense not earlier than 02/19/20 Disregard prescription with fill date 02/14/2020 that was sent to [facility], # 168 tablet, Refills 0, Tot. Refills 0, Acute ... Start Date: 02/19/20 Stop Date: 03/18/20 Status: Ordered oxyCODONE 5 mg oral tablet 5 mg, 1, tablet, By Mouth, Every 4 hours, for 28 days, PRN pain dispense not earlier than 03/18/20 2of 3, # 168 tablet, Refills 0, Tot. Refills 0, Acute 04/15/20 10:25:00 EST, 03/18/20 10:25:00 EST, Route to Pharmacy Electronically, [facility]/pharmacy #1... Start Date: 03/18/20 Stop Date: 04/15/20 Status: Ordered oxyCODONE 5 mg oral tablet 5 mg, 1, tablet, By Mouth, Every 4 hours, for 28 days, PRN pain dispense not earlier than 04/15/20 3 of 3, # 168 tablet, Refills 0, Tot. Refills 0, Acute 05/13/20 10:25:00 EST, 04/15/20 10:25:00 EST, Route to Pharmacy Electronically, [facility]/pharmacy #10... Start Date: 04/15/20 Stop Date: 05/13/20 Status: Ordered oxyCODONE 5 mg oral tablet 5 mg, 1, tablet, By Mouth, Every 4 hours, for 28 days, PRN pain dispense not earlier than 01/17/20, # 168 tablet, Refills 0, Tot. Refills 0, Acute 02/14/20 11:43:00 EST, 01/17/20 11:43:00 EDT, Route to Pharmacy Electronically, [facility]/pharmacy #1972, Part... Start Date: 01/17/20 Stop Date: 02/14/20 Status: Ordered Pen [place], 32 G x 4 mm BD Ultra [...] Gm,11 Refills, Maintenance, 01/27/20 19:13:00 EDT, [facility]/pharmacy #1026, 17- 34 Gm By [...] 11:22:00 EST, Route to Pharmacy Electronically, [facility]/pharmacy #1026 Tablet, 167, cm, 01/13/20 8:5... [...] 9:43:00 EDT, Route to Pharmacy Electronically, [facility]/pharmacy #1026, 167,... Start Date: 01/22/20 Status: Ordered TENS electrode pads TENS electrode pads, See Instructions, # 1 box, Refills 5, Tot. Refills 5, Maintenance, use as directed for back pain Dx LBP M54.9 1 box of 4, 12/06/16 14:59:01, Compound Start Date: 12/06/16 Status: Ordered Trelegy Ellipta inhalation powder 1 puffs, Inhalation, Daily, at the same time every day given by legal adviser , Dr Berkowitz, # 60 each, 0 Refills, Maintenance, 11/20/19 13:03:00 EDT, Powder Start Date: 11/20/19 Status: Ordered Tresiba FlexTouch 200 units/mL subcutaneous solution See Instructions, Inject 86 units daily at 9pm, E11.65, # 45 mL, 6 Refills, Maintenance, 01/21/20 14:30:00 EDT, [facility]/pharmacy #1026, 167, cm, 01/13/20 8:54:00 EDT, Height, 78.8, kg, 01/01/20 3:41:00 EDT, Dry Weight Start Date: 01/21/20 Status: Ordered Ventolin HFA 108 mcg/inh inhalation aerosol with adapter 2 puffs, Inhalation, 4 times a day, PRN Wheezing/Shortness of Breath, dispense when patient requestit, # 18 Gm, 5 Refills, Maintenance, 01/22/20 9:19:00 EDT, [facility]/pharmacy #1026, 167, cm, 01/13/20 8:54:00 EDT, Height, 78.8, kg, 01/01/20 3:41:00 EDT, D... 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 analgesic-LBP(Confirmed) 12 Active Hypercholesterolemia(Confirmed) Active Hyperparathyroidism s/p righ t lower parathyroidectomy 06/16/2008(Confirmed) Active Hypertension(Confirmed) Active Hysterectomy(Confirmed) Active Incontinence of urine(Confirmed) Active Iron deficiency anemia(Confirmed) Active Left ventricular hypertrophy(Confirmed) 13 Active Memory impairment(Confirmed) Active Mitral regurgitation(Confirmed) 14 05/24/17 Active Nephrolithiasis(Confirmed) 15, 16, 17 06/11/02 Active Obesity(Confirmed) Active JENNIFER (obstructive sleep apnea)(Confirmed) Active Osteopenia(Confirmed) 18, 19 11/16/12 Active *[id number]-Care Partn david Fountain(Confirmed) Active Peripheral venous insufficiency(Confirmed) [...] 2 peroneal veins diagnosed on Dec 20 [facility] 6insulin dependent 7Per ECHO 05/24/1718 Grade I, [...] 1 11left mild sensorineural hearing loss by [facility] Hearing Evaluation on 12/29/11 12Narcotic contract w [...] lower parathyroidectomy. 06/16/08 SURGEON: Danny Marie M.D. CALL MANAGER: Naima Bowling M.D. 21b/l submassive PE diagnosed on Dec 20 in [facility] 22TTE 12/22/15 in [facility]: RV dilatation, RVSP 46 23Per ECHO 05/24/17 Trace mitral regurgitation , trace TC regurgitation w no significant valve pathology 24meg colo July 2009 exc for 2 hyperplastic polyps 25Colonoscopy 2004 at [facility] [place] per letter of Dr Amor Dobbins Social History Social History Type Response Smoking Status Never (less than 100 in lifetime) entered on: 12/25/19 Sex
--- OUTSIDE RECORDS SUMMARY | 2023-10-23 09:37 | XMS_ITS | Continuity of Care Document ---
Author Organization [facility] Address [address] [place] [address]- Care Team Providers Care Midwife Practitioner Name Role Phone Gayathri GARZA, Florinda Primary Care Physician [facility] Date(s): 01/08/20 - 02/07/20 [facility] [address] [place] [address]- [facility] Allergies, Adverse Reactions, Alerts Substance Reaction [...] by ELLIOTT HEWITT. 4Admin Note: DENNY CHIU, HEIDY 5Admin Note: administered by denny chiu 6Admin [...] or fever, (not to exceed 2000 mg/day) [place], # 100 tablet, 5 Refills, Maintenance, 01/22/20 9:18:00 EDT, [facility]/pharmacy #1026, 167, cm, [...] mg, 2, mL, Neb, Daily, given by transmitter engineer , Dr Berkowitz, # 120 mL, Refills 0, Maintenance,11/20/19 13:03:00 EDT, Suspension Start Date: 11/20/19 Status: Ordered calcium (as citrate)-vitamin D 315 mg-250 intl units oral tablet 2 tablet, By Mouth, 2 times a day, calcium citrate, # 120 tablet, 11 Refills, Maintenance, 01/26/2019:13:00 EDT, Tablet, [facility]/pharmacy #1026, 2 tablet By Mouth 2 times a day,x30 days,Instr:calcium citrate, 167, cm, 01/13/20 8:54:00 EDT, Height, 78.8... Start Date: 01/27/20 Stop Date: 01/21/21 Status: Ordered capsaicin 0.025% topical cream 1 application, Topically, 3 times a day, # 90 Gm, 11 Refills, Maintenance, 09/25/19 11:21:00 EDT, Cream, [facility], 1 application Topically 3 times a [...] Refills, Maintenance, 01/27/20 19:13:00 EDT, EC Capsule, [facility]/pharmacy #1026, 167, cm, 01/13/20 8:54:00 EDT, Height, 78.8, kg, 01/01/20 3:41:00 EDT, Dry Weight Start Date: 01/27/20 Status: Ordered dexamethasone 6 mg oral tablet 1 tablet = 6 mg, By Mouth, Daily, # 3 tablet, 0 Refills, Maintenance, 01/07/20 12:02:00 EDT, Tablet, [facility], 167, cm, 01/06/20 8:40:00 EDT, Height, 78.8, kg, 01/01/20 3:41:00 EDT, Dry Weight Start Date: 01/07/20 Stop Date: 01/10/20 Status: Ordered docusate sodium 100 mg oral tablet 2 tablet = 200 mg, By Mouth, 2 times a day, # 120 tablet, 11 Refills, Maintenance, 09/25/19 11:07:00 EDT, [facility], 159, cm, 05/20/19 12:19:00 EST, Height, 88.1, kg, 04/25/19 16:02:00 EST, Dry Weight Start Date: 09/25/19 Status: Ordered Eliquis 5 mg oral tablet 1 tablet = 5 mg, By Mouth, 2 times a day, # 60 tablet, 11 Refills, Maintenance, 07/22/19 8:58:00 EDT, Tablet, [facility], 159, cm, 05/20/19 12:19:00 EST, Height, 88.1, kg, 04/25/19 16:02:00 EST, Dry Weight Start Date: 07/22/19 Status: Ordered famotidine 40 mg oral tablet 1 tablet = 40 mg, By Mouth, Daily at bedtime, If 40 mg tablet is not available, can change to 20 mgtablet 2 tablet at bedtime, # 30 tablet, 2 Refills, Maintenance, 01/22/20 9:37:00 EDT, Tablet, [facility]/pharmacy #1026, 167, cm, 01/13/20 [...] 01/22/20 9:41:00 EDT, Route to Pharmacy Electronically, [facility]/pharmacy #1026, 167, cm, 01/13/20 8:54:00 EDT, Height, 78... Start Date: 01/22/20 Status: Ordered metFORMIN 500 mg oral tablet 1 tablet = 500 mg, By Mouth, Daily, Take 1 tablet w/a meal daily, E11.65, # 30 tablet, 6 Refills, Maintenance, 01/17/20 16:28:00 EDT, [facility]/pharmacy #1972, 167, cm, 01/13/20 8:54:00 EDT, Height, 78.8, kg, 01/01/20 3:41:00 EDT, Dry Weight Start Date: 01/17/20 Status: Ordered NovoLOG FlexPen 100 units/mL subcutaneous solution See Instructions, Inject up to 26 untis via Insulin sliding scale 3x a day w/meals,MAX daily dose 78 units, E11.65, # 45 mL, 6 Refills, Maintenance, 01/21/20 14:30:00 EDT, [facility]/pharmacy #1026, 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 Start Date: 01/21/20 Status: Ordered Skz-frf-mwnuw medical-grade oxford diabetic shoes, depth or hightop Xpb-dnx-dupsi medical-grade oxford diabetic shoes, depth or hightop, [...] 01/17/20 11:43:00 EDT, Route to Pharmacy Electronically, [facility]/pharmacy #1972, Part... Start Date: 01/17/20 Stop Date: 02/14/20 Status: Ordered oxyCODONE 5 mg oral tablet 5 mg, 1, tablet, By Mouth, Every 4 hours, for 28 days, PRN pain dispense not earlier than 02/14/20, # 168 tablet, Refills 0, Tot. Refills 0, Acute 03/13/20 11:43:00 EST, 02/14/20 11:43:00 EST, Route to Pharmacy Electronically, [facility]/pharmacy #1972, Part... Start Date: 02/14/20 Stop Date: 03/13/20 Status: Ordered Pen [place], 32 G x 4 mm BD Ultra [...] 09/25/19 11:08:00 EDT, Route to Pharmacy Electronically, [facility] Tablet, 159, cm, 05/20/19... Start Date: [...] 01/22/20 9:43:00 EDT, Route to Pharmacy Electronically, [facility]/pharmacy #[id number], 167,... Start Date: 01/22/20 Status: Ordered TENS electrode pads TENS electrode pads, See Instructions, # 1 box, Refills 5, Tot. Refills 5, Maintenance, use as directed for back pain Dx LBP M54.9 1 box of 4, 12/06/16 14:59:01, Compound Start Date: 12/06/16 Status: Ordered Trelegy Ellipta inhalation powder 1 puffs, Inhalation, Daily, at the same time every day given by transmitter engineer , Dr Berkowitz, # 60 each, [...] Gm, 5 Refills, Maintenance, 01/22/20 9:19:00 EDT, [facility]/pharmacy #1026, 167, cm, 01/13/20 8:54:00 EDT, Height, 78.8, kg, 01/01/20 3:41:00 EDT, D... 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-LBP(Confirmed) 12 Active Hypercholesterolemia(Confirmed) Active Hyperparathyroidism s/p righ t lower parathyroidectomy 06/16/2008(Confirmed) Active Hypertension(Confirmed) Active Hysterectomy(Confirmed) Active Incontinence of urine(Confirmed) Active Iron deficiency anemia(Confirmed) Active Left ventricular hypertrophy(Confirmed) 13 Active Memory impairment(Confirmed) Active Mitral regurgitation(Confirmed) 14 05/24/17 Active Nephrolithiasis(Confirmed) 15, 16, 17 06/11/02 Active Obesity(Confirmed) Active JENNIFER (obstructive sleep apnea)(Confirmed) Active Osteopenia(Confirmed) 18, 19 11/16/12 Active *[id number]-Care Partn david Fountain(Confirmed) Active Peripheral venous insufficiency(Confirmed) [...] 1 11left mild sensorineural hearing loss by [facility] Hearing Evaluation on 12/29/11 12Narcotic contract [...] lower parathyroidectomy. 06/16/08 SURGEON: Danny Marie M.D. CROP FARMERS: Naima Bowling M.D. 21b/l submassive PE diagnosed on Dec 20 in [facility] TTE 12/22/15 in [facility]: RV dilatation, RVSP 46 23Per ECHO 05/24/17 Trace mitral regurgitation , trace TC regurgitation w no significant valve pathology 24meg colo July 2009 exc for 2 hyperplastic polyps 25Colonoscopy 2004 at [facility] [place] per letter of Dr Amor Dobbins Social History Social History Type Response Smoking Status Never (less than 100 in lifetime) entered on: 12/25/19 Sex
--- OUTSIDE RECORDS SUMMARY | 2023-10-23 09:37 | XMS_ITS | Continuity of Care Document ---
Author Organization [facility] Address [address] [place] [address]- Care Team Providers Care Luggage Repairer Name Role Phone Florinda Trinh MD Primary Care Physician Encounter [facility] Date(s): 08/10/22 - 09/09/[address] [address] Attending Physician: Yaya Patino Admitting Physician: Yaya Patino Referring Physician: AdmtrYaya Allergies, Adverse Reactions, Alerts Substance Reaction Severity Status enalapril Active penicillin RASH Active morphine itchy Active Bactrim 1 hyperkalemia Active Lidocaine, Topical Active 1Hyperkalemia when used together with lisinopril Immunizations Given and Recorded Vaccine Date Status Refusal Reason [id number] 12y+ bivalent booster vax 05/25/22 Given influenza [...] zoster vaccine, inactivated 09/15/21 Given SARS-CoV-2 mRNA ([id number]) vax 09/15/21 Given SARS-CoV-2 (COVID-19) mRNA BNT-162b2 [...] Maintenance, 05/25/22 12:08:00 EST, ER Tablet, [facility], Discontinue Motrin, 158, cm, 05/25/22 11:12:00... Start [...] Gm, 11 Refills, Maintenance, 07/21/21 12:43:00 EDT, [facility]/pharmacy #1026, 1 applicator Topically 2 times [...] Biotene Moisturizing Mouth oral spray See Instructions, [place] directly into mouth; spray is safe to [...] P.M. NEEDED & 1 TAB AT [facility], # 180 tablet, 1 Refills, Maintenance, 08/05/22 12:49:00 EDT, [facility], 158, cm, 07/12/22 11:54:00 EDT, Height, 76, kg, 05/07/22 6:04:00 ES... Start Date: 08/05/22 Status: Ordered capsaicin 0.025% topical cream 1 application, Topically, 3 times a day, # 35 Gm, 11 Refills, Maintenance, 07/21/21 12:26:00 EDT, Cream, [facility]/pharmacy #1026, 1 application Topically 3 times [...] 11 Refills, Maintenance, 12/06/21 15:04:00 EDT, Tablet, [facility], Partial fill upon patient request if the prescription is for a schedule II opioid drug., 160, cm, 11/23/21 14:47:00 ED... Start Date: 12/06/21 Status: Ordered esomeprazole 40 mg oral enteric coated capsule See Instructions, TAKE 1 CAPSULE BY MOUTH DAILY 30 MINUTES BEFORE BREAKFAST, # 30 capsule, 2 Refills, Maintenance, 08/05/22 12:49:00 EDT, [id number], 158, cm, 07/12/22 11:54:00 EDT, Height, 76, kg, 05/07/22 6:04:00 EST, Dry Weight Start Date: 08/05/22 Status: Ordered famotidine 40 mg oral tablet 1 tablet = 40 mg, By Mouth, Daily at bedtime, If 40 mg tablet is not available, can be changed to 20 mg tablet 2 tablet at bedtime, # 90 tablet, 3 Refills, Maintenance, 07/12/21 18:53:00 EDT, Tablet,[facility]/pharmacy #1026, Discontinue 30- day supply presc... [...] tablet, 0 Refills, Maintenance, 07/08/22 9:47:00 EDT, [facility], 158, cm, 06/16/22 11:27:00 EST, Height, 76, kg, 05/07/22 6:04:00 EST, Dry Weight Start Date: 07/08/22 Status: Ordered ketotifen 0.025% ophthalmic solution 1 drops, Eyes, Both, Every 12 hours, PRN as needed for eye allergy, # 7.5 mL, 11 Refills, Maintenance, 06/25/21 8:34:00 EDT, [facility]/pharmacy #1026, 1 drops Eyes, Both Every [...] 90 tablet, 3 Refills, 03/09/22 11:57:00 EST, [facility]/pharmacy #0838, 1 tablet By Mouth Daily before dinner,PRN:allergies, 160, cm, 03/09/22 10:43:00 EST, Height, 78, kg, 01/14/22 19:37:00 ED... Start Date: 03/09/22 Status: Ordered montelukast 10 mg oral tablet 10 mg, 1, tablet, By Mouth, Daily at bedtime, # 90 tablet, Refills 3, Tot. Refills 3, Maintenance, 03/09/22 11:37:00 EST, Route to Pharmacy Electronically, [facility]/pharmacy #0838, 160, cm, 03/09/22 10:43:00 EST, Height, 78, kg, 01/14/22 19:37:00 EDT, Dry... Start Date: 03/09/22 Stop Date: 03/04/23 Status: Ordered Norvasc 5 mg oral tablet 5 mg, 1, tablet, By Mouth, Daily, # 90 tablet, Refills 3, Tot. Refills 3, Maintenance, 03/09/22 11:54:00 EST, Route to Pharmacy Electronically, [facility]/pharmacy #0838, 160, cm, 03/09/22 10:43:00 EST, [...] mL, 3 Refills, Maintenance, 03/09/22 17:15:00 EST, [facility]/pharmacy #0838, 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 Start Date: 03/09/22 Status: Ordered Thh-mhn-lvqsc medical-grade oxford diabetic shoes, depth or hightop Lqn-hqv-idlug medical-grade oxford diabetic shoes, depth or hightop, [...] tablet, 2 Refills, Maintenance, 03/09/2211:40:00 EST, Tablet, [facility]/pharmacy #0838, 160, cm, 03/09/22 10:43:00 EST, [...] 12:14:00 EDT, Route to Pha... Start Date: 5/12/23 Stop Date: 09/16/22 Status: Ordered Pen [place], 32 G x 4 mm BD Ultra [...] 527 Gm,11 Refills, Maintenance, 03/09/22 11:39:00 EST, [facility]/pharmacy #0838, 17- 34 Gm By Mouth [...] the same time every day Given by Power Hammer Operator, Dr. 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 06/16/08 SURGEON: Danny Marie M.D. DROP WIRE BUILDER: Naima Bowling M.D. 22b/l submassive PE diagnosed on Dec [address] [facility] 23TTE 12/22/[address] [facility]: RV dilatation, RVSP 46 24Per ECHO 05/24/17 Trace mitral regurgitation , trace TC regurgitation w no significant valve pathology 25meg colo July 2009 exc for 2 hyperplastic polyps 26Colonoscopy 2005 at [facility] [place] per letter of Dr Amor Dobbins Social History Social History Type Response Smoking Status Never (less than 100 in lifetime) entered on: 10/22/20 Sex Patient Care team information Care Team Personnel Name: Diamond Weiss RN Position: [facility] RN Member Role: Primary Care Nurse Name: Tiara Cavazos RN Position: [facility] OB RN Member Role: Primary Care Nurse Name: Shreya Boss RN Position: [facility] RN Member Role: Primary Care Nurse Name: Jaylin Hernandez RN Position: [facility] Onco RN Member Role: Primary Care Nurse Name: Glen Cota MD Position: [facility] Renal MD Member Role: Lifetime Consulting Physician Address: Address: [address] [place] [address] [facility] [address] Name: Gayathri GARZA, Florinda Position: [facility] Physician - Primary Care Member Role: PCP Address: Address: [address] [place] [address] Care Team Related Persons Name: JOSE ELIAS TODD Address: [place] [address] Name: JOSE ELIAS KIRKLAND Address: home [address] [place] [id number] Name: LEONIE SCHRADER Address: [place] [address]
--- OUTSIDE RECORDS SUMMARY | 2023-10-23 09:37 | XMS_ITS | Continuity of Care Document ---
Author Organization [facility] Address [address] [place] [address]- Care Team Providers Care Tub Washer Name Role Phone Masismo Figueroa Primary Care Physician Encounter [facility] Date(s): 04/07/23 - 05/07/23 [facility] [address] [place] [address]- Allergies, Adverse Reactions, Alerts Substance Reaction Severity [...] virus vaccine, inactivated 6 05/06/04 Gi zeny [id number] 12y+ bivalent booster vax 2/15/23 Given zoster vaccine, inactivated 12/08/21 Given zoster vaccine, inactivated 09/15/21 Given SARS-CoV-2 mRNA ([id number]-nula-hsfqa) vax 09/15/21 Given SARS-CoV-2 (COVID-19) mRNA BNT-162b2 [...] by Kendall 10Result Comment: [05/13/2014] Ordered by [place] 11Result Comment: [10/16/2012] ORDERED BY 12Admin Note: VIS 01/13/09 GIVEN 13Admin Note: ADMINISTERED BY RN 14Admin Note: VIS 02/26/08 GIVEN Medications acetaminophen 650 mg oral tablet, extended release 2 tablet = 1,300 mg, By Mouth, Every 8 hours, PRN Pain, (do not crush or chew) (not to exceed 6 tablets/day), # 100 tablet, 11 Refills, Maintenance, 05/25/22 12:08:00 EST, ER Tablet, [id number], Discontinue Motrin, 158, cm, 05/25/22 11:12:00... Start [...] Gm, 11 Refills, Maintenance, 07/21/21 12:43:00 EDT, [facility]/pharmacy #1026, 1 applicator Topically 2 times a day, 160, cm, 07/21/21 10:22:00 EDT, Height, 80.6, kg, 06/03/20 19:00:00 EST, Dry Weight Start Date: 07/21/21 Status: Ordered Baqsimi Two Pack 3 mg nasal powder = 3 mg, Naris, Right, Once, Please use for a low blood sugar emergency, may repeat in 15 minutes, #1 each, 3 Refills, Soft Stop, 03/09/22 11:35:00 EST, [facility]/pharmacy #0838, 160, cm, 03/09/22 10:43:00EST, Height, 78, kg, 01/14/22 19:37:00 EDT, Dry W... Start Date: 03/09/22 Status: Ordered Biotene Moisturizing Mouth oral spray See Instructions, [place] directly into mouth; spray is safe to [...] P.M. NEEDED & [facility], # [facility] tablet, 1 Refills, Maintenance, 08/05/22 12:49:00 EDT, [id number], 158, cm, 07/12/22 11:54:00 EDT, Height, 76, kg, 05/07/22 6:04:00 ES... Start Date: 08/05/22 Status: Ordered capsaicin 0.025% topical cream 1 application, Topically, 3 times a day, # 35 Gm, 11 Refills, Maintenance, 07/21/21 12:26:00 EDT, Cream, [facility]/pharmacy #1026, 1 application Topically 3 times [...] tablet, 3 Refills, Maintenance, 07/12/21 18:53:00 EDT, Tablet,[facility]/pharmacy #1026, Discontinue 30- day supply presc... Start Date: 07/12/21 Stop Date: 07/07/22 Status: Ordered ferrous sulfate 325 mg oral tablet 1 tablet = 325 mg, By Mouth, Daily, May take with food to minimize abdominal discomfort. Do not take with milk. Take preferrably with juice., # 90 tablet, 3 Refills, Maintenance, 09/15/21 8:56:00 EDT, [facility]/pharmacy #1026, 160, cm, 09/15/21 8:15:00 EDT,... [...] Refills, Maintenance, 07/08/22 9:47:00 EDT, [id number], 158, cm, 06/16/22 11:27:00 EST, Height, 76, [...] tablet, 0 Refills, Maintenance, 04/18/23 1:50:00 EST, [facility]/pharmacy #0838, 90, TAKE 1 TABLET BY MOUTH DAILY BEFORE DINNER NEEDED FOR ALLERGIES, 160, cm, 03/23... Start Date: 04/18/23 Status: Ordered LORazepam 0.5 mg oral tablet TAKE 1 TABLET BY MOUTH 3 TIMES DAILY NEEDED FOR ANXIETY OR SLEEP Start Date: 11/24/22 Status: Ordered montelukast 10 mg oral tablet See Instructions, [facility], # 90 tablet, Refills 0, Tot. Refills 0, Maintenance, 04/18/23 1:51:00 EST, Instructions Replace Required Details, Route to Pharmacy Electronically, [facility]/pharmacy #0838, 160, cm, 03/23/23 1... Start [...] 03/09/22 11:54:00 EST, Route to Pharmacy Electronically, [facility]/pharmacy #0838, 160, cm, 03/09/22 10:43:00 EST, [...] # 15... Start Date: 11/24/22 Status: Ordered Dka-acb-aerpk medical-grade oxford diabetic shoes, depth or hightop Uao-zaz-gkryv medical-grade ox[place] diabetic shoes, depth or hightop, [...] DOLOR Start Date: 11/24/22 Status: Ordered Pen [place], 32 G x 4 mm BD Ultra [...] 527 Gm,11 Refills, Maintenance, 03/09/22 11:39:00 EST, [facility]/pharmacy #0838, 17- 34 Gm By Mouth [...] 4 Refills, Maintenance, 11/24/22 9:55:00 EDT, Tablet, [facility]/pharmacy #0838, Partial fill upon patient request [...] 15 mL, 3 Refills, Maintenance, 02/24/2312:11:00 EST, [facility]/pharmacy #0838, Partial fill upon patient request [...] Gm, 5 Refills, Maintenance, 03/09/22 11:55:00 EST, [facility]/pharmacy #0838, 2 Gm Topically 4 times a day,x14 days, 160, cm, 03/09/22 10:43:00 EST, Height, 78, kg, 01/14/22 19:37:00 EDT, Dry Weight Start Date: 03/09/22 Stop Date: 06/01/22 Status: Ordered [place] Reusable Bed Pad 34 x 36 [place] Reusable Bed Pad 34 x 36 , [...] Confirmed 12/29/11 Active Hepatitis C Confirmed Active pen[facility]entiary current use of opiate analgesic-LBP 12 Confirmed [...] Osteopenia 18, 19, 20 Confirmed 11/16/12 Active *[id number] Tailor Apprentice Karine More Confirmed Active Peripheral venous insufficiency [...] 2 peroneal veins diagnosed on Dec 20 [facility] 6insulin dependent 7Per ECHO 05/24/1718 Grade I, [...] 11left mild sensorineural hearing loss by [facility] Hearing Evaluation on 12/29/11 12Narcotic [...] lower parathyroidectomy. 06/16/08 SURGEON: Danny Marie M.D. VISITOR SERVICES SPECIALIST: Naima Bowling M.D. 22b/l submassive PE diagnosed on Dec 20 in [facility] 23TTE 12/22/15 in [facility]: RV dilatation, RVSP 46 24Per ECHO 05/24/17 Trace mitral regurgitation , trace TC regurgitation w no significant valve pathology 25meg colo July 2009 exc for 2 hyperplastic polyps 26Colonoscopy 2004 at [facility] [place] per letter of Dr Amor Dobbins Social History Social History Type Response Smoking Status Never (less than 100 in lifetime) entered on: 10/22/20 Sex Patient Care team information Care Team Personnel Name: Massimo Figueroa Position: [facility] Outreach Member Role: PCP Address: Address: [address] [place] [address] Name: Diamond Weiss RN Position: [facility] RN Member Role: Primary Care Nurse Name: Tiara Cavazos RN Position: [facility] OB RN Member Role: Primary Care Nurse Name: Shreya Boss RN Position: S RN Member Role: Primary Care Nurse Name: Dhruv Khan RN Position: [facility] RN Member Role: Primary Care Nurse Name: Virginia Benson RN Position: [facility] SN RN Member Role: Primary Care Nurse Name: Mary MOODY, Jaylin Position: [facility] Onco RN Member Role: Primary Care Nurse Name: Glen Cota MD Position: [facility] Renal MD Member Role: Lifetime Consulting Physician Address: Address: [address] [place] [address] [facility] [address] Name: Carole Toro LPN Position: [facility] RN Member Role: Primary Care Nurse Care Team Related Persons Name: JOSE ELIAS TODD Address: [place] [address] Name: JOSE LEIAS KIRKLAND Address: home [address] [place] [id number] Name: LEONIE SCHRADER Address: [place] [address]
--- OUTSIDE RECORDS SUMMARY | 2023-10-23 09:37 | XMS_ITS | Continuity of Care Document ---
Author Organization [facility] Address [address] [place] [address]- Care Team Providers Care Director University Name Role Phone Florinda Trinh MD Primary Care Physician Encounter [facility] Date(s): 12/09/21 - 02/18/22 [facility] [place] [address] [place] [address]- Attending Physician: Florinda Trinh MD Admitting Physician: Florinda Trinh MD Allergies, Adverse Reactions, Alerts Substance Reaction Severity Status penicillin RASH Active morphine itchy Active Bactrim 1 hyperkalemia Active Lidocaine, Topical Active 1Hyperkalemia when used together with lisinopril Immunizations Given and Recorded Vaccine Date Status Refusal Reason zoster vaccine, inactivated 12/08/21 Given zoster vaccine, inactivated 09/15/21 Given SARS-CoV-2 mRNA (olgmaiu-qovj-syptg) vax 09/15/21 Given SARS-CoV-2 (COVID-19) mRNA BNT-162b2 [...] by melissa craft 8Admin Note: ADMINISTERED BY Jason 9Result Comment: [...] 03/16/22 13:10:00 EST, 02/16/22 13:10:00 EST, Tablet, [facility], Partial greyson... Start Date: 02/16/22 Stop [...] Gm, 11 Refills, Maintenance, 07/21/21 12:43:00 EDT, [facility]/pharmacy #1026, 1 applicator Topically [...] 3 Refills, Soft Stop, 06/26/20 7:30:00 EDT, [facility]/pharmacy #1026, Partial fill upon patient request [...] needed for anxiety and 1tab at HS [id number]-lpz-xnier, # 60 tablet, 11 Refills, Maintenance, 09/15/21 9:02:00 EDT, [facility], Partial fill upon patient request... Start Date: 09/15/21 Status: Ordered capsaicin 0.025% topical cream 1 application, Topically, 3 times a day, # 35 Gm, 11 Refills, Maintenance, 07/21/21 12:26:00 EDT, Cream, [facility]/pharmacy #1026, 1 application Topically [...] 11 Refills, Maintenance, 04/21/21 18:12:00 EST, Tablet, [facility]/pharmacy #1026, 160, cm, 03/03/21 11:23:00 EST, Height, 80.6, kg, 06/03/20 19:00:00 EST, Dry Weight Start Date: 04/21/21 Status: Ordered escitalopram 20 mg oral tablet 1 tablet = 20 mg, By Mouth, Daily, # 30 tablet, 11 Refills, Maintenance, 12/06/21 15:04:00 EDT, Tablet, [facility], Partial fill upon patient [...] tablet, 3 Refills, Maintenance, 07/12/21 18:53:00 EDT, Tablet,[facility]/pharmacy #1026, Discontinue 30- day supply presc... Start Date: 07/12/21 Stop Date: 07/07/22 Status: Ordered ferrous sulfate 325 mg oral tablet 1 tablet = 325 mg, By Mouth, Daily, May take with food to minimize abdominal discomfort. Do not take with milk. Take preferrably with juice., # 90 tablet, 3 Refills, Maintenance, 09/15/21 8:56:00 EDT, [facility]/pharmacy #1026, 160, cm, 09/15/21 8:15:00 EDT,... [...] 04/28/21 14:34:00 EST, Route to Pharmacy Electronically, [facility]/pharmacy #1026, Can use with HCTZ, 160, [...] capsule, 3 Refills, Maintenance, 11/19/21 14:28:00 EDT, [facility]/pharmacy #1026, 160, cm, 11/05/21 9:50:00 EDT, Height, 80.5, kg, 11/05/21 9:50:00 EDT, Dry Weight Start Date: 11/19/21 Stop Date: 11/14/22 Status: Ordered ketotifen 0.025% ophthalmic solution 1 drops, Eyes, Both, Every 12 hours, PRN as needed for eye allergy, # 7.5 mL, 11 Refills, Maintenance, 06/25/21 8:34:00 EDT, [facility]/pharmacy #1026, 1 drops Eyes, Both Every [...] LOS HDZ, # 90 tablet, 1 Refills, [id number], 90, TOME GAGE TABLETA POR VIA ORAL [...] capsule, 11 Refills, Maintenance, 04/28/21 14:00:00 EST, [facility]/pharmacy #1026, Discontinue pantoprazole, 160, cm, 04/28/21 [...] 09/21/21 9:23:00 EDT, Route to Pharmacy Electronically, [facility], Partial fill upon patient request if [...] #1026, 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 Start Date: 01/17/22 Status: Ordered Srk-mft-rmgpu medical-grade oxford diabetic shoes, depth or hightop Flm-zou-qntel medical-grade oxford diabetic shoes, depth or hightop, See Instructions, # 1 each, Refills 0, Tot. 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 Start Date: 07/21/21 Status: Ordered Pen [place], 32 G x 4 mm BD Ultra [...] the same time every day Given by Transformation Coach, Dr. Michael Berkowitz, # 60 each, 0 Refills, Maintenance, 07/21/21 11:59:00 EDT, Powder, Partial fill upon patient request if the prescription is for a schedule II opi... Start Date: 07/21/21 Status: Ordered Tresiba FlexTouch 200 units/mL subcutaneous solution See Instructions, INJECT 86 UNITS DAILY AT 9PM, # 45 Unknown, 6 Refills, [facility], 160, cm, 06/21/21 9:57:00 EDT, Height, 80.6, kg, 06/03/20 19:00:00 EST, Dry Weight Start Date: 06/22/21 Status: Ordered Ventolin HFA 108 mcg/inh inhalation aerosol with adapter 2 puffs, Inhalation, 4 times a day, PRN Wheezing/Shortness of Breath, dispense when patient requestit, # 18 Gm, 5 Refills, Maintenance, 11/09/20 12:36:00 EDT, [facility]/pharmacy #1026, 160, cm, 10/22/20 9:15:00 EDT, [...] Date: 02/15/21 Stop Date: 05/10/21 Status: Ordered [place] Reusable Bed Pad 34 x 36 [place] Reusable Bed Pad 34 x 36 , [...] Confirmed 12/29/11 Active Hepatitis C Confirmed Active [facility] current use of opiate analgesic-LBP 12 Confirmed [...] Osteopenia 18, 19, 20 Confirmed 11/16/12 Active *[id number] 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 06/16/08 SURGEON: Danny Marie M.D. TRUCKER HAND: Naima Bowling M.D. 22b/l submassive PE diagnosed on Dec 20 in [facility] 23TTE 12/22/15 in [facility]: RV dilatation, RVSP 46 24Per ECHO 05/24/17 Trace mitral regurgitation , trace TC regurgitation w no significant valve pathology 25meg colo July 2009 exc for 2 hyperplastic polyps 26Colonoscopy 2004 at [facility] [place] per letter of Dr Amor Dobbins Social History Social History Type Response Smoking Status Never (less than 100 in lifetime) entered on: 10/22/20 Sex Patient Care team information Care Team Personnel Name: Diamond Weiss RN Position: [facility] RN Member Role: Primary Care Nurse Name: Tiara Cavazos RN Position: [facility] OB RN Member Role: Primary Care Nurse Name: Shreya Boss RN Position: [facility] RN Member Role: Primary Care Nurse Name: Virginia Benson RN Position: [facility] RN Member Role: Primary Care Nurse Name: Jaylin Hernandez RN Position: [facility] Onco RN Member Role: Primary Care Nurse Name: Glen Cota MD Position: [facility] Renal MD Member Role: Lifetime Consulting Physician Address: Address: [address] [place] [address] [facility] [address] Name: Florinda Trinh MD Position: [facility] Primary Care Physician Member Role: PCP Address: Address: [address] [place] [address] Care Team Related Persons Name: JOSE ELIAS TODD Address: [place] [address] Name: JOSE ELIAS KIRKLAND Address: home [address] [place] [address] Name: LEONIE SCHRADER Address: [place] [address]
--- OUTSIDE RECORDS SUMMARY | 2023-10-23 09:37 | XMS_ITS | Continuity of Care Document ---
Author Organization [facility] Address [address] [place] [id number]- Care Team Providers Care Teamcenter Solution Architect Name Role Phone Gayathri GARZA, Florinda Primary Care Physician [facility] Date[facility]s): 12/10/21 - 01/09/22 [facility]/[place] [address]- [place] Allergies, Adverse Reactions, Alerts Substance Reaction Severity Status penicillin RASH Active morphine itchy Active Bactrim 1 hyperkalemia Active Lidocaine, Topical Active 1Hyperkalemia when used together with lisinopril Immunizations Given and Recorded Vaccine Date Status Refusal Reason zoster vaccine, inactivated 12/08/21 Given zoster vaccine, inactivated 09/15/21 Given SARS-CoV-2 mRNA (fuljpti-hbon-akhkv) vax 09/15/21 Given SARS-CoV-2 (COVID-19) mRNA BNT-162b2 [...] 01/09/13 Give n influenza virus vaccine, inactivated 01/31/11 Gi zeny influenza virus vaccine, inactivated [...] by melissa chiu 8Admin Note: ADMINISTERED BY R.Lucille 9Result Comment: [05/13/2014] Ordered by Kendall 10Result Comment: [05/13/2014] Ordered by Kendall 11Result Comment: [10/16/2012] ORDERED BY 12Admin Note: VIS 01/13/09 GIVEN 13Admin Note: ADMINISTERED BY HEIDY 14Admin Note: VIS 02/26/08 GIVEN Medications acetaminophen-hydrocodone 300 mg-7.5 mg oral tablet 2 tablet, By Mouth, Every 8 hours, for 28 days, for pain dispense today discontinue Vicodin 5mg Dx Chronic LBP, renal colic, # 168 tablet, 0 Refills, Acute 01/19/22 13:10:00 EDT, 12/22/21 13:10:00 EDT, Tablet, [facility]... Start Date: 12/22/21 Stop Date: 01/19/22 Status: Ordered acetaminophen-hydrocodone 300 mg-7.5 mg oral tablet 2 tablet, By Mouth, Every 8 hours, for 28 days, for pain fill date Jan 19, 2022 Dx Chronic LBP, renal colic, # 168 tablet, 0 Refills, Acute 02/16/22 13:10:00 EST, 01/19/22 13:10:00 EDT, Tablet, [facility], Partial fi... Start Date: 01/19/22 Stop Date: 02/16/22 Status: Ordered acetaminophen-hydrocodone 300 mg-7.5 mg oral tablet 2 tablet, By Mouth, Every 8 hours, for 28 days, for pain fill date Feb 16, 2022 Dx Chronic LBP, renal colic, # 168 tablet, 0 Refills, Acute 03/16/22 13:10:00 EST, 02/16/22 13:10:00 EST, Tablet, [facility], Partial greyson... Start Date: 02/16/22 Stop [...] 3 Refills, Soft Stop, 06/26/20 7:30:00 EDT, [facility]/pharmacy #1026, Partial fill upon patient request if the prescription is for a schedule II op... Start Date: 06/26/20 Status: Ordered Biotene Moisturizing Mouth oral spray See Instructions, [place] directly into mouth; spray is safe to swallow as needed for dry mouth, # 45mL, 11 Refills, Maintenance, 07/21/21 12:43:00 EDT, [facility]/pharmacy #1026, [place] directly into mouth; spray is safe to [...] needed for anxiety and 1tab at HS pemnqx-rwk-xteko, # 60 tablet, 11 Refills, Maintenance, 09/15/21 9:02:00 EDT, [facility]/pharmacy #1026, Partial fill upon patient request... [...] 11 Refills, Maintenance, 04/21/21 18:12:00 EST, Tablet, [facility]/pharmacy #1026, 160, cm, 03/03/21 11:23:00 EST, Height, 80.6, kg, 06/03/20 19:00:00 EST, Dry Weight Start Date: 04/21/21 Status: Ordered escitalopram 20 mg oral tablet 1 tablet = 20 mg, By Mouth, Daily, # 30 tablet, 11 Refills, Maintenance, 12/06/21 15:04:00 EDT, Tablet, [facility], Partial fill upon patient [...] 04/28/21 14:34:00 EST, Route to Pharmacy Electronically, [facility]/pharmacy #1026, Can use with HCTZ, 160, [...] capsule, 3 Refills, Maintenance, 11/19/21 14:28:00 EDT, [facility]/pharmacy #1026, 160, cm, 11/05/21 9:50:00 EDT, Height, 80.5, kg, 11/05/21 9:50:00 EDT, Dry Weight Start Date: 11/19/21 Stop Date: 11/14/22 Status: Ordered ketotifen 0.025% ophthalmic solution 1 drops, Eyes, Both, Every 12 hours, PRN as needed for eye allergy, # 7.5 mL, 11 Refills, Maintenance, 06/25/21 8:34:00 EDT, [facility]/pharmacy #1026, 1 drops Eyes, Both Every [...] LOS HDZ, # 90 tablet, 1 Refills, [id number], 90, TOME GAGE TABLETA POR VIA ORAL TODOS [facility], 160, cm, 09/21/21 8:54:00 EDT, Height, 80.6,kg, 06/03/20 19:00:00 EST, Dry Weight Start Date: 10/13/21 Status: Ordered Nexium 40 mg oral enteric coated capsule 1 capsule = 40 mg, By Mouth, Daily, 30 minutes before breakfast, # 30 capsule, 11 Refills, Maintenance, 04/28/21 14:00:00 EST, [facility]/pharmacy #1026, Discontinue pantoprazole, 160, cm, 04/28/21 9:50:00 [...] 0 Refills, Maintenance, 09/21/21 9:23:00 EDT, Tablet, [facility], P... Start Date: 09/21/21 Status: Ordered Norvasc 5 mg oral tablet 5 mg, 1, tablet, By Mouth, Daily, # 30 tablet, Refills 0, Tot. Refills 0, Maintenance, 09/21/21 9:23:00 EDT, Route to Pharmacy Electronically, [facility], Partial fill upon patient request if the prescription is for a schedule II o... Start Date: 09/21/21 Status: Ordered NovoLOG FlexPen 100 units/mL subcutaneous solution See Instructions, Inject up to 26 untis via Insulin sliding scale 3x a day w/meals,MAX daily dose 78 units, E11.65, # 45 mL, 6 Refills, Maintenance, 01/21/20 14:30:00 EDT, [facility]/pharmacy #1026, 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 Start Date: 01/21/20 Status: Ordered Zxo-una-hwhup medical-grade oxford diabetic shoes, depth or hightop Ptn-nro-tqnna medical-grade oxford diabetic shoes, depth or hightop, See Instructions, # 1 each, Refills 0, Tot. 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 Start Date: 07/21/21 Status: Ordered Pen Alvin, 32 G x 4 mm BD Ultra [...] 04/28/21 14:02:00 EST, Route to Pharmacy Electronically, [facility]/pharmacy #1026, 160... Start Date: 04/28/21 Stop [...] 527 Gm,11 Refills, Maintenance, 01/27/20 19:13:00 EDT, [facility]/pharmacy #1026, 17- 34 Gm By Mouth [...] 11 Refills, Maintenance, 04/28/21 14:03:00 EST, Tablet, [facility]/pharmacy #1026, 160, cm, 04/28/21 9:50:00 EST, Height, 80.6, kg, 06/03/20 19:00:00 EST, Dry Weight Start Date: 04/28/21 Status: Ordered Senna-Time 8.6 mg oral tablet 2 tablet, By Mouth, 2 times a day, PRN NEEDED FOR CONSTIPATION,INSTR, DISCONTINUE DOCUSATE, # 60tablet, 11 Refills, [id number], 160, cm, 03/03/21 11:23:00 EST, Height, 80.6, [...] 02/22/21 17:50:00 EST, Route to Pharmacy Electronically, [facility]/pharmacy #1026, 1... Start Date: 02/22/21 Status: Ordered tamsulosin 0.4 mg oral capsule See Instructions, TOME 1 CAPSULA POR VIA ORAL TODOS LOS HDZ, # 30 capsule, Refills 0, InstructionsReplace Required Details, Route to Pharmacy Electronically, [id number], 160, cm, 09/21/21 8:54:00 EDT, Height, 80.6, kg, 06/03/20 19:00:00 EST, DrLizbet.. Start Date: 10/08/21 Status: Ordered TENS electrode [...] 09/15/21 9:03:00 EDT, Route to Pharmacy Electronically, [facility]/pharmacy #1026, Partial fill upon patient request if the prescri... Start Date: 09/15/21 Stop Date: 03/02/22 Status: Ordered Trelegy Ellipta inhalation powder 1 puffs, Inhalation, Daily, at the same time every day Given by General Manager Land Department, Dr. Michael Berkowitz, # 60 each, 0 Refills, Maintenance, 07/21/21 11:59:00 EDT, Powder, Partial fill upon patient request if the prescription is for a schedule II opi... 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 06/16/08 SURGEON: Danny Marie M.D. CONSUMER EXPERIENCE CONSULTANT: Naima Bowling M.D. 22b/l submassive PE diagnosed on Dec 20 in [facility] 23TTE 12/22/15 in [facility]: RV dilatation, RVSP 46 24Per ECHO 05/24/17 Trace mitral regurgitation , trace TC regurgitation w no significant valve pathology 25meg colo July 2009 exc for 2 hyperplastic polyps 26Colonoscopy 2004 at [facility] [place] per letter of Dr Amor Dobbins Social History Social History Type Response Smoking Status Never (less than 100 in lifetime) entered on: 10/22/20 Sex Patient Care team information Personnel Name: Gayathri GARZA, Florinda Address: Address: [address] [place] [address]
--- OUTSIDE RECORDS SUMMARY | 2023-10-23 09:37 | XMS_ITS | Continuity of Care Document ---
Author Organization [facility] Address [address] [place] [address]- Care Team Providers Care Highway Engineering Technician Name Role Phone Florinda Trinh MD Primary Care Physician [facility]): [facility]20 - 05/29/20 [facility] [place] [address] [place] [address]- Attending Physician: Florinda Trinh MD Admitting Physician: [...] Note: vis 11/02/2010 4Admin Note: given by ANDREWS. KASH 5Admin Note: MELISSA CHIU RN 6Admin Note: administered by melissa chiu 7Admin Note: ADMINISTERED BY RYoana 8Result Comment: [05/13/2014] Ordered by Kendall 9Result Comment: [05/13/2014] Ordered by Kendall 10Result Comment: [10/16/2012] ORDERED BY 11Admin Note: VIS 01/13/09 GIVEN 12Admin Note: ADMINISTERED BY HEIDY 13Admin Note: VIS 02/26/08 GIVEN Medications acetaminophen 500 mg oral tablet 2 tablet = 1,000 mg, By Mouth, Every 6 hours, PRN as needed for pain or fever, (not to exceed 2000 mg/day) kyrgyz, # 100 tablet, 5 Refills, Maintenance, 01/22/20 9:18:00 EDT, [facility]/pharmacy #1026, 167, cm, 01/13/20 8:54:00 EDT, Height, [...] 01/21/21 19:13:00 EDT, 01/27/20 19:13:00 EDT, Tablet, [facility]/pharmacy #1026, 167, cm, 01/13/20 8:54:00 EDT, Height, 78.8, kg, 01/01/20 3:41:00 EDT, Dry... Start Date: 01/27/20 Stop Date: 01/21/21 Status: Ordered capsaicin 0.025% topical cream 1 application, Topically, 3 times a day, # 90 Gm, 11 Refills, Maintenance, 02/10/20 11:22:00 EST, Cream, [facility]/pharmacy #1026, 1 application Topically 3 times a [...] Refills, Maintenance, 01/27/20 19:13:00 EDT, EC Capsule, [facility]/pharmacy #1026, 167, cm, 01/13/20 8:54:00 EDT, Height, 78.8, kg, 01/01/20 3:41:00 EDT, Dry Weight Start Date: 01/27/20 Status: Ordered Eliquis 5 mg oral tablet 1 tablet = 5 mg, By Mouth, 2 times a day, # 60 tablet, 11 Refills, Maintenance, 02/10/20 11:22:00 EST, Tablet, [facility]/pharmacy #1026, 167, cm, 01/13/20 8:54:00 EDT, Height, 78.8, kg, 01/01/20 3:41:00 EDT, Dry Weight Start Date: 02/10/20 Status: Ordered enalapril 10 mg oral tablet 10 mg, 1, tablet, By Mouth, Daily, discontinue hydrochlorothiazide, # 30 tablet, Refills 11, Tot. Refills 11, Maintenance, 04/29/20 13:04:00 EST, Route to Pharmacy Electronically, [facility]/pharmacy #1026,167, cm, 04/29/20 9:24:00 EST, Height, 82, kg, ... Start Date: 04/29/20 Status: Ordered famotidine 40 mg oral tablet 1 tablet = 40 mg, By Mouth, Daily at bedtime, If 40 mg tablet is not available, can change to 20 mgtablet 2 tablet at bedtime, # 30 tablet, 2 Refills, Maintenance, 04/04/20 16:07:00 EST, Tablet, [facility]/pharmacy #1026, 167, cm, 02/24/20 17:04:00 EST, Hei... Start Date: 04/04/20 Status: Ordered ferrous sulfate 325 mg oral tablet 1 tablet = 325 mg, By Mouth, Daily, May take with food to minimize abdominal discomfort. Do not take with milk. Take preferrably with juice., # 90 tablet, 2 Refills, Maintenance, 01/22/20 9:38:00 EDT, [facility]/pharmacy #1026, 167, cm, 01/13/20 8:54:00 EDT,... Start [...] capsule, 4 Refills, Maintenance, 01/22/20 9:39:00 EDT, [facility]/pharmacy #1026, 167, cm, 01/13/20 8:54:00 EDT, Height, 78.8, kg, 01/01/20 3:41:00 EDT, Dry Weight Start Date: 01/22/20 Stop Date: 06/20/20 Status: Ordered ketotifen 0.025% ophthalmic solution 1 drops, Eyes, Both, Every 12 hours, PRN as needed for eye allergy, # 7.5 mL, 11 Refills, Maintenance, 01/27/20 19:13:00 EDT, [facility]/pharmacy #1026, 1 drops Eyes, Both Every 12 [...] 01/22/20 9:41:00 EDT, Route to Pharmacy Electronically, [facility]/pharmacy #1026, 167, cm, 01/13/20 8:54:00 EDT, Height, 78... Start Date: 01/22/20 Status: Ordered NovoLOG FlexPen 100 units/mL subcutaneous solution See Instructions, Inject up to 26 untis via Insulin sliding scale 3x a day w/meals,MAX daily dose 78 units, E11.65, # 45 mL, 6 Refills, Maintenance, 01/21/20 14:30:00 EDT, [facility]/pharmacy #1026, 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 Start Date: 01/21/20 Status: Ordered Wxd-sfx-pgjcx medical-grade oxford diabetic shoes, depth or hightop Erc-hyl-csypf medical-grade oxford diabetic shoes, depth or hightop, [...] EST, 05/15/20 10:25:00 EST, Route toPharmacy Electronically, [facility]/pharmacy #1026, Parti... Start Date: 05/15/20 Stop Date: 06/12/20 Status: Ordered oxyCODONE 5 mg oral tablet 5 mg, 1, tablet, By Mouth, Every 4 hours, for 28 days, PRN pain dispense not earlier than 06/12/20, #168 tablet, Refills 0, Tot. Refills 0, Acute 07/10/20 10:25:00 EDT, 06/12/20 10:25:00 EST, Route toPharmacy Electronically, [facility]/pharmacy #1026, Parti... Start Date: 06/12/20 Stop Date: 07/10/20 Status: Ordered oxyCODONE 5 mg oral tablet 5 mg, 1, tablet, By Mouth, Every 4 hours, for 28 days, PRN pain dispense not earlier than 07/10/20, #168 tablet, Refills 0, Tot. Refills 0, Acute 08/07/20 10:25:00 EDT, 07/10/20 10:25:00 EDT, Route toPharmacy Electronically, [facility]/pharmacy #1026, Parti... Start Date: 07/10/20 Stop Date: 08/07/20 Status: Ordered Pen [place], 32 G x 4 mm BD Ultra [...] 527 Gm,11 Refills, Maintenance, 01/27/20 19:13:00 EDT, [facility]/pharmacy #1026, 17- 34 Gm By Mouth Daily,PRN:asneeded [...] 02/10/20 11:22:00 EST, Route to Pharmacy Electronically, [facility]/pharmacy #1026 Tablet, 167, cm, 01/13/20 8:5... Start [...] 05/01/20 9:28:00 EST, Route to Pharmacy Electronically, [facility]/pharmacy #1026, 167,... Start Date: 05/01/20 Status: Ordered TENS electrode pads TENS electrode pads, See Instructions, # 1 box, Refills 5, Tot. Refills 5, Maintenance, use as directed for back pain Dx LBP M54.9 1 box of 4, 12/06/16 14:59:01, Compound Start Date: 12/06/16 Status: Ordered Trelegy Ellipta inhalation powder 1 puffs, Inhalation, Daily, at the same time every day given by literacy coordinator , Dr Berkowitz, # 60 each, 0 [...] Gm, 5 Refills, Maintenance, 01/22/20 9:19:00 EDT, [facility]/pharmacy #1026, 167, cm, 01/13/20 8:54:00 EDT, Height, 78.8, kg, 01/01/20 3:41:00 EDT, D... Start Date: 01/22/20 Status: Ordered Vitamin D3 1000 intl units oral tablet 1 tablet = 1,000 International_Units, By Mouth, Daily, # 90 tablet, 1 Refills, Maintenance, 04/15/20 12:22:00 EST, [facility]/pharmacy #1026, 167, cm, 04/13/20 10:16:00 EST, Height, 78.8, kg, 01/01/20 3:41:00 EDT, Dry Weight Start Date: 04/15/20 Status: Ordered [place] Reusable Bed Pad 34 x 36 [place] Reusable Bed Pad 34 x 36 , [...] abnormal(Confirmed) 11 12/29/11 Active Hepatitis C(Confirmed) Active correction current use of opi ate analgesic-LBP(Confirmed) 12 [...] apnea)(Confirmed) Active Osteopenia(Confirmed) 18, 19 11/16/12 Active *[id number] Care Partn igor [place](Confirmed) Active Peripheral venous insufficiency(Confirmed) 10/31/11 Active [...] 2 peroneal veins diagnosed on Dec 20 [facility] 6insulin dependent 7Per ECHO 05/24/1718 Grade I, [...] mild sensorineural hearing loss by [facility] Hearing Evaluation on 12/29/11 12Narcotic [...] lower parathyroidectomy. 06/16/08 SURGEON: Danny Marie M.D. PATTERN MARKING SUPERVISOR: Naima Bowling M.D. 21b/l submassive PE diagnosed on Dec 20 in [facility] 22TTE 12/22/15 in [facility]: RV dilatation, RVSP 46 23Per ECHO 05/24/17 Trace mitral regurgitation , trace TC regurgitation w no significant valve pathology 24meg colo July 2009 exc for 2 hyperplastic polyps 25Colonoscopy 2004 at [facility] [place] per letter of Dr Amor Dobbins Social History Social History Type Response Smoking Status Never (less than 100 in lifetime) entered on: 04/29/20 Sex
--- OUTSIDE RECORDS SUMMARY | 2023-10-23 09:37 | XMS_ITS | Continuity of Care Document ---
Author Organization [facility] Address [address] [place] [address]- Care Team Providers Care Bottle Gauger Name Role Phone Gayathri GARZA, Florinda Primary Care Physician [facility]): [facility]20 - 05/16/20 [facility] [address] [address]- Allergies, Adverse Reactions, Alerts Substance Reaction Severity Status penicillin RASH Active morphine itchy Active Lidocaine, Topical Active Immunizations Given and Recorded Vaccine Date Status Refusal Reason influenza virus vaccine, inactivated 02/25/20 Give n [...] or fever, (not to exceed 2000 mg/day) french, # 100 tablet, 5 Refills, Maintenance, 01/22/20 [...] 01/21/21 19:13:00 EDT, 01/27/20 19:13:00 EDT, Tablet, [facility]/pharmacy #1026, 167, cm, 01/13/20 8:54:00 EDT, Height, 78.8, kg, 01/01/20 3:41:00 EDT, Dry... Start Date: 01/27/20 Stop Date: 01/21/21 Status: Ordered capsaicin 0.025% topical cream 1 application, Topically, 3 times a day, # 90 Gm, 11 Refills, Maintenance, 02/10/20 11:22:00 EST, Cream, [facility]/pharmacy #1026, 1 application Topically 3 [...] Refills, Maintenance, 01/27/20 19:13:00 EDT, EC Capsule, [facility]/pharmacy #1026, 167, cm, 01/13/20 8:54:00 EDT, Height, 78.8, kg, 01/01/20 3:41:00 EDT, Dry Weight Start Date: 01/27/20 Status: Ordered Eliquis 5 mg oral tablet 1 tablet = 5 mg, By Mouth, 2 times a day, # 60 tablet, 11 Refills, Maintenance, 02/10/20 11:22:00 EST, Tablet, [facility]/pharmacy #1026, 167, cm, 01/13/20 8:54:00 EDT, Height, 78.8, kg, 01/01/20 3:41:00 EDT, Dry Weight Start Date: 02/10/20 Status: Ordered enalapril 10 mg oral tablet 10 mg, 1, tablet, By Mouth, Daily, discontinue hydrochlorothiazide, # 30 tablet, Refills 11, Tot. Refills 11, Maintenance, 04/29/20 13:04:00 EST, Route to Pharmacy Electronically, [facility]/pharmacy #1026,167, cm, 04/29/20 9:24:00 EST, Height, 82, kg, 01... Start Date: 04/29/20 Status: Ordered famotidine 40 mg oral tablet 1 tablet = 40 mg, By Mouth, Daily at bedtime, If 40 mg tablet is not available, can change to 20 mgtablet 2 tablet at bedtime, # 30 tablet, 2 Refills, Maintenance, 04/04/20 16:07:00 EST, Tablet, [facility]/pharmacy #1026, 167, cm, 02/24/20 17:04:00 EST, Hei... Start Date: 04/04/20 Status: Ordered ferrous sulfate 325 mg oral tablet 1 tablet = 325 mg, By Mouth, Daily, May take with food to minimize abdominal discomfort. Do not take with milk. Take preferrably with juice., # 90 tablet, 2 Refills, Maintenance, 01/22/20 9:38:00 EDT, [facility]/pharmacy #1026, 167, cm, 01/13/20 8:54:00 EDT,... [...] capsule, 4 Refills, Maintenance, 01/22/20 9:39:00 EDT, [facility]/pharmacy #1026, 167, cm, 01/13/20 8:54:00 EDT, [...] 01/22/20 9:41:00 EDT, Route to Pharmacy Electronically, [facility]/pharmacy #1026, 167, cm, 01/13/20 8:54:00 EDT, Height, 78... Start Date: 01/22/20 Status: Ordered NovoLOG FlexPen 100 units/mL subcutaneous solution See Instructions, Inject up to 26 untis via Insulin sliding scale 3x a day w/meals,MAX daily dose 78 units, E11.65, # 45 mL, 6 Refills, Maintenance, 01/21/20 14:30:00 EDT, [facility]/pharmacy #1026, 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 Start Date: 01/21/20 Status: Ordered Gcy-tog-dmoxc medical-grade oxford diabetic shoes, depth or hightop Lgg-liy-nsrhr medical-grade oxford diabetic shoes, depth or hightop, [...] EST, 05/15/20 10:25:00 EST, Route toPharmacy Electronically, [facility], Parti... Start Date: 05/15/20 Stop Date: 06/12/20 Status: Ordered oxyCODONE 5 mg oral tablet 5 mg, 1, tablet, By Mouth, Every 4 hours, for 28 days, PRN pain dispense not earlier than 06/12/20, #168 tablet, Refills 0, Tot. Refills 0, Acute 07/10/20 10:25:00 EDT, 06/12/20 10:25:00 EST, Route toPharmacy Electronically, [facility], Parti... Start Date: 06/12/20 Stop Date: 07/10/20 Status: Ordered oxyCODONE 5 mg oral tablet 5 mg, 1, tablet, By Mouth, Every 4 hours, for 28 days, PRN pain dispense not earlier than 07/10/20, #168 tablet, Refills 0, Tot. Refills 0, Acute 08/07/20 10:25:00 EDT, 07/10/20 10:25:00 EDT, Route toPharmacy Electronically, [facility], Parti... Start Date: 07/10/20 Stop Date: 08/07/20 Status: Ordered Pen [place], 32 G x 4 mm BD Ultra [...] 527 Gm,11 Refills, Maintenance, 01/27/20 19:13:00 EDT, [facility]/pharmacy #1026, 17- 34 Gm By Mouth [...] 02/10/20 11:22:00 EST, Route to Pharmacy Electronically, [facility]/pharmacy #1026 Tablet, 167, cm, 01/13/20 8:5... [...] 05/01/20 9:28:00 EST, Route to Pharmacy Electronically, [facility]/pharmacy #1026, 167,... Start Date: 05/01/20 Status: Ordered TENS electrode pads TENS electrode pads, See Instructions, # 1 box, Refills 5, Tot. Refills 5, Maintenance, use as directed for back pain Dx LBP M54.9 1 box of 4, 12/06/16 14:59:01, Compound Start Date: 12/06/16 Status: Ordered Trelegy Ellipta inhalation powder 1 puffs, Inhalation, Daily, at the same time every day given by freight shipping agent , Dr Berkowitz, # 60 each, 0 [...] Dry Weight Start Date: 04/15/20 Status: Ordered [place] Reusable Bed Pad 34 x 36 [place] Reusable Bed Pad 34 x 36 , [...] abnormal(Confirmed) 11 12/29/11 Active Hepatitis C(Confirmed) Active classer current use of opi ate analgesic-LBP(Confirmed) 12 [...] apnea)(Confirmed) Active Osteopenia(Confirmed) 18, 19 11/16/12 Active *[id number] Care Partn igor More(Confirmed) Active Peripheral venous [...] veins diagnosed on Dec 20 [facility] 6insulin dependent 7Per ECHO 05/24/1718 Grade [...] 1 11left mild sensorineural hearing loss by [facility] Hearing Evaluation on 12/29/11 12Narcotic contract w [...] lower parathyroidectomy. 06/16/08 SURGEON: Danny Marie M.D. CLINICAL LIAISON: Naima Bowling M.D. 21b/l submassive PE diagnosed on Dec 20 in [facility] 22TTE 12/22/15 in [facility]: RV dilatation, RVSP 46 23Per ECHO 05/24/17 Trace mitral regurgitation , trace TC regurgitation w no significant valve pathology 24meg colo July 2009 exc for 2 hyperplastic polyps 25Colonoscopy 2004 at [facility] [place] per letter of Dr Amor Dobbins Social History Social History Type Response Smoking Status Never (less than 100 in lifetime) entered on: 04/29/20 Sex
--- OUTSIDE RECORDS SUMMARY | 2023-10-23 09:37 | XMS_ITS | Continuity of Care Document ---
Author Organization [facility] Address [address] [place] [address]- Care Team Providers Care Manager Card Name Role Phone Gayathri GARZA, Florinda Primary Care Physician Encounter [facility] Date(s): 12/10/21 - 01/09/22 [facility]/[place] [address]- [place] Allergies, Adverse Reactions, Alerts Substance Reaction Severity Status penicillin RASH Active morphine itchy Active Bactrim 1 hyperkalemia Active Lidocaine, Topical Active 1Hyperkalemia when used together with lisinopril Immunizations Given and Recorded Vaccine Date Status Refusal Reason zoster vaccine, inactivated 12/08/21 Given zoster vaccine, inactivated 09/15/21 Given SARS-CoV-2 mRNA ([id number]-elof-fotwm) vax 09/15/21 Given SARS-CoV-2 (COVID-19) mRNA BNT-162b2 [...] by melissa chiu 8Admin Note: ADMINISTERED BY R.NLizbet 9Result Comment: [05/13/2014] Ordered by Kendall 10Result [...] 01/19/22 13:10:00 EDT, 12/22/21 13:10:00 EDT, Tablet, [facility]... Start Date: 12/22/21 Stop Date: 01/19/22 Status: Ordered acetaminophen-hydrocodone 300 mg-7.5 mg oral tablet 2 tablet, By Mouth, Every 8 hours, for 28 days, for pain fill date Jan 19, 2022 Dx Chronic LBP, renal colic, # 168 tablet, 0 Refills, Acute 02/16/22 13:10:00 EST, 01/19/22 13:10:00 EDT, Tablet, [facility], Partial fi... Start Date: 01/19/22 Stop Date: 02/16/22 Status: Ordered acetaminophen-hydrocodone 300 mg-7.5 mg oral tablet 2 tablet, By Mouth, Every 8 hours, for 28 days, for pain fill date Feb 16, 2022 Dx Chronic LBP, renal colic, # 168 tablet, 0 Refills, Acute 03/16/22 13:10:00 EST, 02/16/22 13:10:00 EST, Tablet, [facility], Partial greyson... Start Date: 02/16/22 Stop [...] Gm, 11 Refills, Maintenance, 07/21/21 12:43:00 EDT, [facility]/pharmacy #1026, 1 applicator Topically 2 times a day, 160, cm, 07/21/21 10:22:00 EDT, Height, 80.6, kg, 06/03/20 19:00:00 EST, Dry Weight Start Date: 07/21/21 Status: Ordered Baqsimi Two Pack 3 mg nasal powder = 3 mg, Naris, Right, Once, Please use for a low blood sugar emergency, may repeat in 15 minutes, #2 each, 3 Refills, Soft Stop, 06/26/20 7:30:00 EDT, [facility]/pharmacy #1026, Partial fill upon patient request if the prescription is for a schedule II op... Start Date: 06/26/20 Status: Ordered Biotene Moisturizing Mouth oral spray See Instructions, [place] directly into mouth; spray is safe to swallow as needed for dry mouth, # 45mL, 11 Refills, Maintenance, 07/21/21 12:43:00 EDT, [facility]/pharmacy #1026, [place] directly into mouth; spray is safe to [...] needed for anxiety and 1tab at HS [id number]-[id number], # 60 tablet, 11 Refills, Maintenance, 09/15/21 9:02:00 EDT, [facility]/pharmacy #1026, Partial fill upon patient request... Start Date: 09/15/21 Status: Ordered capsaicin 0.025% topical cream 1 application, Topically, 3 times a day, # 35 Gm, 11 Refills, Maintenance, 07/21/21 12:26:00 EDT, Cream, [facility]/pharmacy #1026, 1 application Topically 3 times [...] 11 Refills, Maintenance, 04/21/21 18:12:00 EST, Tablet, [facility]/pharmacy #1026, 160, cm, 03/03/21 11:23:00 EST, Height, 80.6, kg, 06/03/20 19:00:00 EST, Dry Weight Start Date: 04/21/21 Status: Ordered escitalopram 20 mg oral tablet 1 tablet = 20 mg, By Mouth, Daily, # 30 tablet, 11 Refills, Maintenance, 12/06/21 15:04:00 EDT, Tablet, [facility], Partial fill upon patient request [...] tablet, 3 Refills, Maintenance, 07/12/21 18:53:00 EDT, Tablet,[facility]/pharmacy #1026, Discontinue 30- day supply presc... Start Date: 07/12/21 Stop Date: 07/07/22 Status: Ordered ferrous sulfate 325 mg oral tablet 1 tablet = 325 mg, By Mouth, Daily, May take with food to minimize abdominal discomfort. Do not take with milk. Take preferrably with juice., # 90 tablet, 3 Refills, Maintenance, 09/15/21 8:56:00 EDT, [facility]/pharmacy #1026, 160, cm, 09/15/21 8:15:00 EDT,... Start [...] 04/28/21 14:34:00 EST, Route to Pharmacy Electronically, [facility]/pharmacy #1026, Can use with HCTZ, 160, cm, [...] capsule, 3 Refills, Maintenance, 11/19/21 14:28:00 EDT, [facility]/pharmacy #1026, 160, cm, 11/05/21 9:50:00 EDT, Height, 80.5, kg, 11/05/21 9:50:00 EDT, Dry Weight Start Date: 11/19/21 Stop Date: 11/14/22 Status: Ordered ketotifen 0.025% ophthalmic solution 1 drops, Eyes, Both, Every 12 hours, PRN as needed for eye allergy, # 7.5 mL, 11 Refills, Maintenance, 06/25/21 8:34:00 EDT, [facility]/pharmacy #1026, 1 drops Eyes, Both Every [...] # 90 tablet, 1 Refills, [id number], 90, TOME GAGE TABLETA POR VIA ORAL TODOS LOS HDZ, 160, cm, 09/21/21 8:54:00 EDT, Height, 80.6,kg, 06/03/20 19:00:00 EST, Dry Weight Start Date: 10/13/21 Status: Ordered Nexium 40 mg oral enteric coated capsule 1 capsule = 40 mg, By Mouth, Daily, 30 minutes before breakfast, # 30 capsule, 11 Refills, Maintenance, 04/28/21 14:00:00 EST, [facility]/pharmacy #1026, Discontinue pantoprazole, 160, cm, 04/28/21 9:50:00 [...] 0 Refills, Maintenance, 09/21/21 9:23:00 EDT, Tablet, [facility], P... Start Date: 09/21/21 Status: Ordered Norvasc 5 mg oral tablet 5 mg, 1, tablet, By Mouth, Daily, # 30 tablet, Refills 0, Tot. Refills 0, Maintenance, 09/21/21 9:23:00 EDT, Route to Pharmacy Electronically, [facility], Partial fill upon patient request if the prescription is for a schedule II o... Start Date: 09/21/21 Status: Ordered NovoLOG FlexPen 100 units/mL subcutaneous solution See Instructions, Inject up to 26 untis via Insulin sliding scale 3x a day w/meals,MAX daily dose 78 units, E11.65, # 45 mL, 6 Refills, Maintenance, 01/21/20 14:30:00 EDT, [facility]/pharmacy #1026, 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 Start Date: 01/21/20 Status: Ordered Oso-mcb-hodoa medical-grade oxford diabetic shoes, depth or hightop Hoc-cvd-wodji medical-grade oxford diabetic shoes, depth or hightop, See Instructions, # 1 each, Refills 0, Tot. 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 Start Date: 07/21/21 Status: Ordered Pen [place], 32 G x 4 mm BD Ultra [...] 04/28/21 14:02:00 EST, Route to Pharmacy Electronically, [facility]/pharmacy #1026, 160... Start Date: 04/28/21 Stop Date: [...] 527 Gm,11 Refills, Maintenance, 01/27/20 19:13:00 EDT, [facility]/pharmacy #1026, 17- 34 Gm By Mouth [...] 11 Refills, Maintenance, 04/28/21 14:03:00 EST, Tablet, [facility]/pharmacy #1026, 160, cm, 04/28/21 9:50:00 EST, Height, 80.6, kg, 06/03/20 19:00:00 EST, Dry Weight Start Date: 04/28/21 Status: Ordered Senna-Time 8.6 mg oral tablet 2 tablet, By Mouth, 2 times a day, PRN NEEDED FOR CONSTIPATION,INSTR, DISCONTINUE DOCUSATE, # 60tablet, 11 Refills, [facility], 160, cm, 03/03/21 11:23:00 EST, Height, 80.6, [...] 02/22/21 17:50:00 EST, Route to Pharmacy Electronically, [facility]/pharmacy #1026, 1... Start Date: 02/22/21 Status: Ordered tamsulosin 0.4 mg oral capsule See Instructions, TOME 1 CAPSULA POR VIA ORAL TODOS LOS HDZ, # 30 capsule, Refills 0, InstructionsReplace Required Details, Route to Pharmacy Electronically, [facility], 160, cm, 09/21/21 8:54:00 EDT, Height, 80.6, [...] 09/15/21 9:03:00 EDT, Route to Pharmacy Electronically, [facility]/pharmacy #1026, Partial fill upon patient request if the prescri... Start Date: 09/15/21 Stop Date: 03/02/22 Status: Ordered Trelegy Ellipta inhalation powder 1 puffs, Inhalation, Daily, at the same time every day Given by Novelty Worker, Dr. Michael Berkowitz, # 60 each, 0 Refills, Maintenance, 07/21/21 11:59:00 EDT, Powder, Partial fill upon patient request if the prescription is for a schedule II opi... Start Date: 07/21/21 Status: Ordered Tresiba FlexTouch 200 units/mL subcutaneous solution See Instructions, INJECT 86 UNITS DAILY AT 9PM, # 45 Unknown, 6 Refills, [facility], 160, cm, 06/21/21 9:57:00 EDT, Height, 80.6, [...] Date: 02/15/21 Stop Date: 05/10/21 Status: Ordered [place] Reusable Bed Pad 34 x 36 [place] Reusable Bed Pad 34 x 36 , [...] Confirmed 12/29/11 Active Hepatitis C Confirmed Active longterm current use of opiate analgesic-LBP 12 Confirmed [...] Osteopenia 18, 19, 20 Confirmed 11/16/12 Active *[id number] Architectural Engineering Teacher Karine More Confirmed Active Peripheral venous insufficiency [...] 2 peroneal veins diagnosed on Dec 20 [facility] 6insulin dependent 7Per ECHO 05/24/1718 Grade [...] 1 11left mild sensorineural hearing loss by [facility] Hearing Evaluation on 12/29/11 12Narcotic contract [...] lower parathyroidectomy. 06/16/08 SURGEON: Danny Marie M.D. SAND SCREENER: Naima Bowling M.D. 22b/l submassive PE diagnosed on Dec 20 in [facility] 23TTE 12/22/15 in [facility]: RV dilatation, RVSP 46 24Per ECHO 05/24/17 Trace mitral regurgitation , trace TC regurgitation w no significant valve pathology 25meg colo July 2009 exc for 2 hyperplastic polyps 26Colonoscopy 2004 at [facility] [place] per letter of Dr Amor Dobbins Social History Social History Type Response Smoking Status Never (less than 100 in lifetime) entered on: 10/22/20 Sex Patient Care team information Personnel Name: Gayathri GARZA, Florinda Address: Address: [address] [place] [address]
--- OUTSIDE RECORDS SUMMARY | 2023-10-23 09:38 | XMS_ITS | Continuity of Care Document ---
Author Organization [facility] Address Unknown Care Team Providers Care Small Battery Plate Assembler Name Role Phone Gayathri GARZA, Florinda Primary Care Physician Encounter [facility] Date(s): 03/22/21 - 04/21/21 [facility] Allergies, Adverse Reactions, Alerts Substance [...] 11 10/16/12 Given pneumococcal 23-valent vaccine 12 8/3/11 Given pneumococcal 23-valent vaccine 13 05/20/04 Given [...] or fever, (not to exceed 2000 mg/day) macedonian, # 100 tablet, 1 Refills, Maintenance, 04/15/21 18:44:00 EST, [facility]/pharmacy #1026, 160, cm, 03/03/21 11:23:00 EST, Height, 80.6, kg, 02... Start Date: 04/15/21 Status: Ordered ALCOHOL 70% PREP PADS ALCOHOL [...] Refills, Maintenance, 04/21/21 18:12:00 EST, Tablet, [facility]/pharmacy #1026, 160, cm, 03/03/21 11:23:00 EST, Height, 80.6, kg, 06/03/20 19:00:00 EST, Dry Weight Start Date: 04/21/21 Status: Ordered escitalopram 20 mg oral tablet 1 tablet = 20 mg, By Mouth, Daily, Discontinue duloxetine 60 mg, # 30 tablet, 11 Refills, Maintenance, 12/09/20 11:15:00 EDT, Tablet, [facility]/pharmacy #1026, Partial fill upon patient [...] tablet, 3 Refills, Maintenance, 06/30/20 14:55:00 EDT, Tablet,[facility]/pharmacy #1026, Discontinue 30- day supply [...] 78.8, kg,... Start Date: 01/21/20 Status: Ordered Pyg-iwd-mszcy medical-grade oxford diabetic shoes, depth or hightop Zoo-leg-wllkb medical-grade oxford diabetic shoes, depth or hightop, [...] 04/19/21 Stop Date: 05/17/21 Status: Ordered Pen [place], 32 G x 4 mm BD Ultra [...] Refills, Maintenance, 01/27/20 19:13:00 EDT, [facility]/pharmacy #1026, 17- 34 Gm [...] mg oral tablet See Instructions, LUCIANO MOHAN [place], # 30 tablet, 5 Refills, Maintenance, [facility], 160, cm, 10/22/20 9:15:00 EDT, Height, 80.6, kg, 06/03/20 19:00:00 EST, Dry Weight Start Date: 11/13/20 Status: Ordered Senna-Time 8.6 mg oral tablet 2 tablet, By Mouth, 2 times a day, PRN NEEDED FOR CONSTIPATION,INSTR, DISCONTINUE DOCUSATE, # 60tablet, 11 Refills, [facility], 160, cm, 03/03/21 11:23:00 EST, Height, 80.6, [...] 17:50:00 EST, Route to Pharmacy Electronically, [facility]/pharmacy #1026, 1... Start Date: [...] 02/15/21 11:39:00 EST, Route to Pharmacy Electronically, [facility]/pharmacy #1026,Partial fill upon patient request if the prescrip... Start Date: 02/15/21 Stop Date: 03/29/21 Status: Ordered Trelegy Ellipta inhalation powder 1 puffs, Inhalation, Daily, at the same time every day given by phonograph needle tip maker , Dr Berkowitz, # 60 each, 0 Refills, Maintenance, 11/20/19 13:03:00 EDT, Powder Start Date: 11/20/19 Status: Ordered Tresiba FlexTouch 200 units/mL subcutaneous solution See Instructions, Inject 55 units daily at 9pm, E11.65. titrate accordingly, # 45 mL, 6 Refills, Maintenance, 01/21/20 14:30:00 EDT, [facility]/pharmacy #1026, 167, cm, 01/13/20 8:54:00 EDT, Height, 78.8, kg, 01/01/20 3:41:00 EDT, Dry Weight Start Date: 01/21/20 Status: Ordered Ventolin HFA 108 mcg/inh inhalation aerosol with adapter 2 puffs, Inhalation, 4 times a day, PRN Wheezing/Shortness of Breath, dispense when patient requestit, # 18 Gm, 5 Refills, Maintenance, 11/09/20 12:36:00 EDT, [facility]/pharmacy #1026, 160, cm, 10/22/20 9:15:00 EDT, Height, 80.6, kg, 06/03/20 19:00:00 EST,... Start Date: 11/09/20 Status: Ordered Voltaren 1% topical gel = 2 Gm, Topically, 4 times a day, # 100 Gm, 5 Refills, Maintenance, 02/15/21 11:40:00 EST, [facility]/pharmacy #1026, 2 Gm Topically 4 times a day,x14 days, 160, cm, 02/15/21 8:47:00 EST, Height, 80.6, kg, 06/03/20 19:00:00 EST, Dry Weight Start Date: 02/15/21 Stop Date: 05/10/21 Status: Ordered [place] Reusable Bed Pad 34 x 36 [place] Reusable Bed Pad 34 x 36 , [...] abnormal(Confirmed) 11 12/29/11 Active Hepatitis C(Confirmed) Active [facility] current use of opi ate analgesic-LBP(Confirmed) 12 [...] apnea)(Confirmed) Active Osteopenia(Confirmed) 18, 19 11/16/12 Active *[id number] [facility] [place] Partn Karine [place](Confirmed) Active Peripheral venous insufficiency(Confirmed) 10/31/11 Active Positive [...] 2 peroneal veins diagnosed on Dec 20 [facility] 6insulin dependent 7Per ECHO 05/24/1718 Grade I, [...] 1 11left mild sensorineural hearing loss by [facility] Hearing Evaluation on 12/29/11 12Narcotic [...] parathyroidectomy. 06/16/08 SURGEON: Danny Marie M.D. AIR CARGO SPECIALIST: Naima Bowling M.D. 21b/l submassive PE diagnosed on Dec 20 in [facility] 22TTE 12/22/15 in [facility]: RV dilatation, RVSP 46 23Per ECHO 05/24/17 Trace mitral regurgitation , trace TC regurgitation w no significant valve pathology 24meg colo July 2009 exc for 2 hyperplastic polyps 25Colonoscopy 2004 at [facility] [place] per letter of Dr Amor Dobbins Social History Social History Type Response Smoking Status Never (less than 100 in lifetime) entered on: 10/22/20 Sex
--- OUTSIDE RECORDS SUMMARY | 2023-10-23 09:38 | XMS_ITS | Continuity of Care Document ---
Author Organization [facility] Address [address] [place] [address]- Care Team Providers Care Skip Pitman Name Role Phone Massimo Figueroa Primary Care Physician [phone] [facility]counter [facility] Date(s): 05/12/23 - 06/11/23 [facility] [address] [place] [address]- Attending Physician: Yaya Patino Admitting Physician: AdmYaya [...] virus vaccine, inactivated 6 05/06/04 Gi zeny [id number] 12y+ bivalent booster vax 05/25/22 Given zoster vaccine, inactivated 12/08/21 Given zoster vaccine, inactivated 09/15/21 Given SARS-CoV-2 mRNA ([id number]) vax 09/15/21 Given SARS-CoV-2 (COVID-19) mRNA BNT-162b2 [...] Refills, Maintenance, 05/25/22 12:08:00 EST, ER Tablet, [facility]/pharmacy #0838, Discontinue Motrin, 158, cm, [...] Gm, 11 Refills, Maintenance, 07/21/21 12:43:00 EDT, [facility]/pharmacy #1026, 1 applicator Topically 2 [...] Biotene Moisturizing Mouth oral spray See Instructions, [place] directly into mouth; spray is safe to [...] P.M. NEEDED & 1 TAB AT [facility], # 180 tablet, 1 Refills, Maintenance, 08/05/22 12:49:00 EDT, [facility], 158, cm, 07/12/22 11:54:00 EDT, Height, 76, kg, 05/07/22 6:04:00 ES... Start Date: 08/05/22 Status: Ordered capsaicin 0.025% topical cream 1 application, Topically, 3 times a day, # 35 Gm, 11 Refills, Maintenance, 07/21/21 12:26:00 EDT, Cream, [facility]/pharmacy #1026, 1 application Topically 3 [...] 11 Refills, Maintenance, 12/06/21 15:04:00 EDT, Tablet, [facility], Partial fill upon patient [...] tablet, 3 Refills, Maintenance, 07/12/21 18:53:00 EDT, Tablet,[facility]/pharmacy #1026, Discontinue 30- day supply [...] Refills, Maintenance, 07/08/22 9:47:00 EDT, [facility], 158, cm, 06/16/22 11:27:00 EST, Height, 76, kg, 05/07/22 6:04:00 EST, Dry Weight Start Date: 07/08/22 Status: Ordered ketotifen 0.025% ophthalmic solution 1 drops, Eyes, Both, Every 12 hours, PRN as needed for eye allergy, # 7.5 mL, 11 Refills, Maintenance, 06/25/21 8:34:00 EDT, [facility]/pharmacy #1026, 1 drops Eyes, Both [...] tablet, 0 Refills, Maintenance, 04/18/23 1:50:00 EST, [facility]/pharmacy #0838, 90, TAKE 1 TABLET BY MOUTH DAILY BEFORE DINNER NEEDED FOR ALLERGIES, 160, cm, 03/23... Start Date: 04/18/23 Status: Ordered LORazepam 0.5 mg oral tablet TAKE 1 TABLET BY MOUTH 3 TIMES DAILY NEEDED FOR ANXIETY OR SLEEP Start Date: 11/24/22 Status: Ordered montelukast 10 mg oral tablet See Instructions, LUCIANO MITCHELL LOS HDZ AL [facility], # 90 tablet, Refills 0, Tot. Refills 0, Maintenance, 04/18/23 1:51:00 EST, Instructions Replace Required Details, Route to Pharmacy Electronically, [facility]/pharmacy #0838, 160, cm, 03/23/23 1... [...] 03/09/22 11:54:00 EST, Route to Pharmacy Electronically, [facility]/pharmacy #0838, 160, cm, 03/09/22 10:43:00 [...] # 15... Start Date: 11/24/22 Status: Ordered Lhs-pqq-lzngi medical-grade oxford diabetic shoes, depth or hightop Qhb-mkc-xbbzw medical-grade oxford diabetic shoes, depth or hightop, [...] DOLOR Start Date: 11/24/22 Status: Ordered Pen [place], 32 G x 4 mm BD Ultra [...] 527 Gm,11 Refills, Maintenance, 03/09/22 11:39:00 EST, [facility]/pharmacy #0838, 17- 34 Gm By [...] tablet, 11 Refills, Maintenance, 03/09/22 11:39:00 EST, [facility]/pharmacy #0838, 160, cm, 03/09/22 10:43:00 [...] 4 Refills, Maintenance, 05/09/23 10:10:00 EST, Tablet, [facility]/pharmacy #0838, Partial fill upon patient [...] 15 mL, 3 Refills, Maintenance, 02/24/2312:11:00 EST, [facility]/pharmacy #0838, Partial fill upon patient [...] 80.6, kg, 06/03/20 19:00:00 EST,... Start Date: 8/2/21 Status: Ordered Voltaren 1% topical gel = 2 Gm, Topically, 4 times a day, # 100 Gm, 5 Refills, Maintenance, 03/09/22 11:55:00 EST, [facility]/pharmacy #0838, 2 Gm Topically 4 times a day,x14 days, 160, cm, 03/09/22 10:43:00 EST, Height, 78, kg, 01/14/22 19:37:00 EDT, Dry Weight Start Date: 03/09/22 Stop Date: 06/01/22 Status: Ordered [place] Reusable Bed Pad 34 x 36 [place] Reusable Bed Pad 34 x 36 , [...] Confirmed 12/29/11 Active Hepatitis C Confirmed Active [facility] current use of opiate analgesic-LBP 12 Confirmed [...] Osteopenia 18, 19, 20 Confirmed 11/16/12 Active *[phone] Anesthesiologist Attending Karine More Confirmed Active Peripheral venous insufficiency [...] 1 11left mild sensorineural hearing loss by [facility] Hearing Evaluation on 12/29/11 12Narcotic contract [...] lower parathyroidectomy. 06/16/08 SURGEON: Danny Marie M.D. MULTI CARE TECHNICIAN: Naima Bowling M.D. 22b/l submassive PE diagnosed on Dec 20 in [facility] 23TTE 12/22/15 in [facility]: RV dilatation, RVSP 46 24Per ECHO 05/24/17 Trace mitral regurgitation , trace TC regurgitation w no significant valve pathology 25meg colo July 2009 exc for 2 hyperplastic polyps 26[address]oscopy [address] [facility] [place] per letter of Dr Amor Dobbins Social History Social History Type Response Smoking Status Never (less than 100 in lifetime) entered on: 10/22/20 Sex Patient Care team information Care Team Personnel Name: Massimo Figueroa Position: [facility] Outreach Member Role: PCP Address: Address: [address] [place] [address] Name: Diamond Weiss RN Position: S RN Member Role: Primary Care Nurse Name: Tiara Cavazos RN Position: S OB RN Member Role: Primary Care Nurse Name: Shreya Boss RN Position: S RN Member Role: Primary Care Nurse Name: Dhruv Khan RN Position: [facility] RN Member Role: Primary Care Nurse Name: Virginia Benson RN Position: [facility] SN RN Member Role: Primary Care Nurse Name: Jaylin Hernandez RN Position: [facility] Onco RN Member Role: Primary Care Nurse Name: Glen Cota MD Position: [facility] Renal MD Member Role: Lifetime Consulting Physician Address: Address: [address] [place] [address] [facility] [address] Name: Carole Toro LPN Position: [facility] RN Member Role: Primary Care Nurse Care Team Related Persons Name: JOSE ELIAS TODD Address: [place] [address] Name: JOSE ELIAS KIRKLAND Address: home [address] [place] [id number] Name: LEONIE SCHRADER Address: [place] [address]
--- OUTSIDE RECORDS SUMMARY | 2023-10-23 09:38 | XMS_ITS | Continuity of Care Document ---
Author Organization [facility] Address [address] [place] [phone]- Care Team Providers Care Professor Of Pathology Name Role Phone Gayathri GARZA, Florinda Primary Care Physician Encounter [facility] [place] Date(s): 06/06/22 - 07/06/22 [facility] [address] [place] [id number]- Attending Physician: Yaya Patino Admitting Physician: Yaya Patino Referring Physician: AdmtrYaya Allergies, Adverse Reactions, Alerts Substance Reaction Severity Status enalapril Active penicillin RASH Active Lidocaine, Topical Active morphine itchy Active Bactrim 1 hyperkalemia Active 1Hyperkalemia when used together with lisinopril Immunizations Given and Recorded Vaccine Date Status Refusal Reason [id number] 12y+ bivalent booster vax 05/25/22 Given influenza [...] zoster vaccine, inactivated 09/15/21 Given SARS-CoV-2 mRNA ([id number]) vax 09/15/21 Given SARS-CoV-2 (COVID-19) mRNA BNT-162b2 [...] Maintenance, 05/25/22 12:08:00 EST, ER Tablet, [id number], Discontinue Motrin, 158, cm, 05/25/22 11:12:00... Start [...] Gm, 11 Refills, Maintenance, 07/21/21 12:43:00 EDT, [facility]/pharmacy #[id number], 1 applicator Topically 2 [...] Biotene Moisturizing Mouth oral spray See Instructions, [place] directly into mouth; spray is safe to [...] needed for anxiety and 1tab at HS [id number], # 60 tablet, 11 Refills, Maintenance, 09/15/21 9:02:00 EDT, [facility]/pharmacy #[id number], Partial fill upon patient request... Start Date: 09/15/21 Status: Ordered capsaicin 0.025% topical cream 1 application, Topically, 3 times a day, # 35 Gm, 11 Refills, Maintenance, 07/21/21 12:26:00 EDT, Cream, [facility]/pharmacy #[id number], 1 application Topically 3 [...] 11 Refills, Maintenance, 12/06/21 15:04:00 EDT, Tablet, [facility], Partial fill [...] tablet, 3 Refills, Maintenance, 07/12/21 18:53:00 EDT, Tablet,[facility]/pharmacy #[id number], Discontinue 30- day supply presc... Start Date: 07/12/21 Stop Date: 07/07/22 Status: Ordered ferrous sulfate 325 mg oral tablet 1 tablet = 325 mg, By Mouth, Daily, May take with food to minimize abdominal discomfort. Do not take with milk. Take preferrably with juice., # 90 tablet, 3 Refills, Maintenance, 09/15/21 8:56:00 EDT, [facility]/pharmacy #[id number], 160, cm, 09/15/21 8:15:00 [...] 04/19/22 10:15:00 EST, Route to Pharmacy Electronically, [facility]/pharmacy #[id number], Partial fill upon patient request if the prescription is for a schedule II opioi... Start Date: 04/19/22 Status: Ordered ketotifen 0.025% ophthalmic solution 1 drops, Eyes, Both, Every 12 hours, PRN as needed for eye allergy, # 7.5 mL, 11 Refills, Maintenance, 06/25/21 8:34:00 EDT, [facility]/pharmacy #[id number], 1 drops Eyes, Both [...] 90 tablet, 3 Refills, 03/09/22 11:57:00 EST, [facility]/pharmacy #[id number], 1 tablet By Mouth Daily before dinner,PRN:allergies, 160, cm, 03/09/22 10:43:00 EST, Height, 78, kg, 01/14/22 19:37:00 ED... Start Date: 03/09/22 Status: Ordered montelukast 10 mg oral tablet 10 mg, 1, tablet, By Mouth, Daily at bedtime, # 90 tablet, Refills 3, Tot. Refills 3, Maintenance, 03/09/22 11:37:00 EST, Route to Pharmacy Electronically, [facility]/pharmacy #[id number], 160, cm, 03/09/22 10:43:00 EST, Height, 78, kg, 01/14/22 19:37:00 EDT, Dry... Start Date: 03/09/22 Stop Date: 03/04/23 Status: Ordered Nexium 40 mg oral enteric coated capsule 1 capsule = 40 mg, By Mouth, Daily, 30 minutes before breakfast, # 30 capsule, 2 Refills, Maintenance, 05/02/22 15:39:00 EST, [facility]/pharmacy #[id number], Discontinue pantoprazole, 160, cm, 04/19/22 9:55:00 EST, Height, 76, kg, 04/12/22 16:37:00 EST, Dry Weight Start Date: 05/02/22 Stop Date: 07/31/22 Status: Ordered Norvasc 5 mg oral tablet 5 mg, 1, tablet, By Mouth, Daily, # 90 tablet, Refills 3, Tot. 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 Start Date: 03/09/22 Status: Ordered Rvf-qxb-ktcji medical-grade oxford diabetic shoes, depth or hightop Sxd-cyo-mzoyx medical-grade oxford diabetic shoes, depth or hightop, [...] tablet, 2 Refills, Maintenance, 03/09/2211:40:00 EST, Tablet, [facility]/pharmacy #[id number], 160, cm, 03/09/22 10:43:00 [...] 08/19/22 Stop Date: 09/16/22 Status: Ordered Pen [place], 32 G x 4 mm BD Ultra [...] the same time every day Given by Fraud Investigator, Dr. 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 6insulin dependent 7Per ECHO 05/24/1718 [...] 1 11left mild sensorineural hearing loss by [facility] Hearing Evaluation on 12/29/11 12Narcotic [...] lower parathyroidectomy. 06/16/08 SURGEON: Danny Marie M.D. THIRD STEEL POURER: Naima Bowling M.D. 22b/l submassive PE diagnosed on Dec [address] [facility] 23TTE 12/22/[address] [facility]: RV dilatation, RVSP 46 24Per ECHO 05/24/17 Trace mitral regurgitation , trace TC regurgitation w no significant valve pathology 25meg colo July 2009 exc for 2 hyperplastic polyps 26Colonoscopy 2004 at [facility] per letter of Dr Amor Dobbins Social History Social History Type Response Smoking Status Never (less than 100 in lifetime) entered on: 10/22/20 Sex Patient Care team information Care Team Personnel Name: Diamond Weiss RN Position: [facility] RN Member Role: Primary Care Nurse Name: Tiara Cavazos RN Position: [facility] OB RN Member Role: Primary Care Nurse Name: Shreya Boss RN Position: [facility] RN Member Role: Primary Care Nurse Name: Jaylin Hernandez RN Position: [facility] Onco RN Member Role: Primary Care Nurse Name: Glen Cota MD Position: [facility] Renal MD Member Role: Lifetime Consulting Physician Address: Address: [address] [place] [address] [facility] [address]- Name: Florinda Trinh MD Position: [facility] Primary Care Physician Member Role: PCP Address: Address: [address] [place] [id number]- Care Team Related Persons Name: JOSE ELIAS TODD Address: [place] [address] Name: JOSE ELIAS KIRKLAND Address: home [address] [place] [address] Name: LEONIE SCHRADER Address: [place] [address]
--- OUTSIDE RECORDS SUMMARY | 2023-10-23 09:38 | XMS_ITS | Continuity of Care Document ---
Author Organization [facility] Address [address] [place] [address]- Care Team Providers Care Board Design Engineer Name Role Phone Gayathri GARZA, Florinda Primary Care Physician Encounter [facility] Date(s): 04/29/22 - 05/29/22 [facility]/[address] [address]- [place] Allergies, Adverse Reactions, Alerts Substance Reaction Severity Status penicillin RASH Active morphine itchy Active Bactrim 1 hyperkalemia Active Lidocaine, Topical Active 1Hyperkalemia when used together with lisinopril Immunizations Given and Recorded Vaccine Date Status Refusal Reason [id number] 12y+ bivalent booster vax 05/25/22 Given influenza [...] zoster vaccine, inactivated 09/15/21 Given SARS-CoV-2 mRNA (zkyjnwr-xbdl-fxfwj) vax 09/15/21 Given SARS-CoV-2 (COVID-19) mRNA BNT-162b2 [...] Given 1Result Comment: [03/04/2015] ORDERED BY DR. AHWK 2Admin Note: vis 11/02/2010 3Admin Note: given [...] Refills, Maintenance, 05/25/22 12:08:00 EST, ER Tablet, [facility]/pharmacy #[id number], Discontinue Motrin, 158, cm, 05/25/22 [...] Gm, 11 Refills, Maintenance, 07/21/21 12:43:00 EDT, [facility]/pharmacy #1026, 1 applicator Topically 2 times [...] Biotene Moisturizing Mouth oral spray See Instructions, [place] directly into mouth; spray is safe to [...] needed for anxiety and 1tab at HS [id number], # 60 tablet, 11 Refills, Maintenance, 09/15/21 9:02:00 EDT, [facility]/pharmacy #1026, Partial fill upon patient request... [...] 11 Refills, Maintenance, 12/06/21 15:04:00 EDT, Tablet, [facility], Partial fill upon patient [...] 04/19/22 10:15:00 EST, Route to Pharmacy Electronically, [facility]/pharmacy #[id number], Partial fill upon patient request if the prescription is for a schedule II opioi... Start Date: 04/19/22 Status: Ordered ketotifen 0.025% ophthalmic solution 1 drops, Eyes, Both, Every 12 hours, PRN as needed for eye allergy, # 7.5 mL, 11 Refills, Maintenance, 06/25/21 8:34:00 EDT, [facility]/pharmacy #[id number], 1 drops Eyes, Both Every [...] 90 tablet, 3 Refills, 03/09/22 11:57:00 EST, [facility]/pharmacy #[id number], 1 tablet By Mouth Daily before dinner,PRN:allergies, 160, cm, 03/09/22 10:43:00 EST, Height, 78, kg, 01/14/22 19:37:00 ED... Start Date: 03/09/22 Status: Ordered montelukast 10 mg oral tablet 10 mg, 1, tablet, By Mouth, Daily at bedtime, # 90 tablet, Refills 3, Tot. Refills 3, Maintenance, 03/09/22 11:37:00 EST, Route to Pharmacy Electronically, [facility]/pharmacy #[id number], 160, cm, 03/09/22 10:43:00 EST, Height, 78, kg, 01/14/22 19:37:00 EDT, Dry... Start Date: 03/09/22 Stop Date: 03/04/23 Status: Ordered Nexium 40 mg oral enteric coated capsule 1 capsule = 40 mg, By Mouth, Daily, 30 minutes before breakfast, # 30 capsule, 2 Refills, Maintenance, 05/02/22 15:39:00 EST, [facility]/pharmacy #[id number], Discontinue pantoprazole, 160, cm, 04/19/22 9:55:00 EST, Height, 76, kg, 04/12/22 16:37:00 EST, Dry Weight Start Date: 05/02/22 Stop Date: 07/31/22 Status: Ordered Norvasc 10 mg oral tablet 10 mg, 1, tablet, By Mouth, Daily, for 14 days, Temporary increase dose;only use after steroid injections for 2 weeks, then return to amlodipine 5 mg, # 14 tablet, Refills 0, Tot. Refills 0, Acute 06/08/22 12:10:00 EST, 05/25/22 12:10:00 EST, Print Re... Start Date: 05/25/22 Stop Date: 06/08/22 Status: Ordered Norvasc 5 mg oral tablet 5 mg, 1, tablet, By Mouth, Daily, # 90 tablet, Refills 3, Tot. 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 Start Date: 03/09/22 Status: Ordered Bsp-wgw-wopqq medical-grade oxford diabetic shoes, depth or hightop Zus-wwy-uaoot medical-grade oxford diabetic shoes, depth or hightop, [...] 28 days, for pain; fill date 05/04/2022; Dx Chronic LBP,renal colic KVTek brand (K18) only FIll date 05/27/22, # 224 tablet, Refills 0, Tot. Refills 0, Acute 06/24/22 12:14:00 EDT, 05/27/22 12:14... Start Date: 05/27/22 Stop Date: 06/24/22 Status: Ordered Pen [place], 32 G x 4 mm BD Ultra [...] tablet, 11 Refills, Maintenance, 03/09/22 11:39:00 EST, [facility]/pharmacy #[id number], 160, cm, 03/09/22 10:43:00 EST, [...] the same time every day Given by Human Relations Manager, Dr. Michael Berkowitz, # 60 each, 0 [...] Gm, 5 Refills, Maintenance, 11/09/20 12:36:00 EDT, [facility]/pharmacy #1026, 160, cm, 10/22/20 9:15:00 EDT, Height, 80.6, kg, 06/03/20 19:00:00 EST,... Start Date: 11/09/20 Status: Ordered Voltaren 1% topical gel = 2 Gm, Topically, 4 times a day, # 100 Gm, 5 Refills, Maintenance, 03/09/22 11:55:00 EST, [facility]/pharmacy #[id number], 2 Gm Topically 4 times a day,x14 days, 160, cm, 03/09/22 10:43:00 EST, Height, 78, kg, 01/14/22 19:37:00 EDT, Dry Weight Start Date: 03/09/22 Stop Date: 06/01/22 Status: Ordered [place] Reusable Bed Pad 34 x 36 [place] Reusable Bed Pad 34 x 36 , [...] Osteopenia 18, 19, 20 Confirmed 11/16/12 Active *[id number] Assistant Professor Of Marine Biology Karine More Confirmed Active Peripheral venous insufficiency [...] peroneal veins diagnosed on Dec 20 [facility] 6insulin dependent 7Per ECHO 05/24/1718 Grade I, [...] mild sensorine[facility] 12[facility]/11 12Narcotic contract w [...] lower parathyroidectomy. 06/16/08 SURGEON: Danny Marie M.D. ORTHOPEDIC CAST SPECIALIST: Naima Bowling M.D. 22b/l submassive PE diagnosed on Dec 20 in [facility] 23TTE 12/22/15 in [facility]: RV dilatation, RVSP 46 24Per ECHO 05/24/17 Trace mitral regurgitation , trace TC regurgitation w no significant valve pathology 25meg colo July 2009 exc for 2 hyperplastic polyps 26Colonoscopy 2004 at [facility] [place] per letter of Dr Amor Dobbins Social History Social History Type Response Smoking Status Never (less than 100 in lifetime) entered on: 10/22/20 Sex Patient Care team information Care Team Personnel Name: Diamond Weiss RN Position: [facility] RN Member Role: Primary Care Nurse Name: Tiara Cavazos RN Position: [facility] OB RN Member Role: Primary Care Nurse Name: Shreya Boss RN Position: [facility] RN Member Role: Primary Care Nurse Name: Virginia Benson RN Position: [facility] RN Member Role: Primary Care Nurse Name: Jaylin Hernandez RN Position: [facility] Onco RN Member Role: Primary Care Nurse Name: Glen Cota MD Position: [facility] Renal MD Member Role: Lifetime Consulting Physician Address: Address: [address] [place] [address] [facility] [address] Name: Florinda Trinh MD Position: [facility] Primary Care Physician Member Role: PCP Address: Address: [address] [place] [address] Care Team Related Persons Name: JOSE ELIAS TODD Address: [place] [address] Name: JOSE ELIAS KIRKLAND Address: home [address] [place] [address] Name: LEONIE SCHRADER Address: [place] [address]
--- OUTSIDE RECORDS SUMMARY | 2023-10-23 09:38 | XMS_ITS | Continuity of Care Document ---
Author Organization [facility] Address Unknown Care Team Providers Care Hosiery Knitter Name Role Phone Gayathri GARZA, Florinda Primary Care Physician Encounter [facility] Date(s): 12/08/20 - 01/07/21 [facility] Allergies, Adverse Reactions, Alerts Substance Reaction [...] Note: vis 11/02/2010 5Admin Note: given by ANDREWS. KASH 6Admin Note: MELISSA CHIU RN 7Admin Note: [...] or fever, (not to exceed 2000 mg/day) mongolian, # 100 tablet, 11 Refills, Maintenance, 08/14/20 10:13:00 EDT, [facility]/pharmacy #[id number], 160, cm, 08/14/20 9:34:00 EDT, Height, [...] home. D... 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 Start Date: 01/21/20 Status: Ordered Jbo-ftn-gxafn medical-grade oxford diabetic shoes, depth or hightop Pzr-bry-tvqkf medical-grade Evikon MCI diabetic shoes, depth or hightop, See Instructions, [...] 12/25/20 10:25:00 EDT, Route to Pharmacy Electronically, [id number], Part... Start Date: 12/25/20 Stop Date: 01/22/21 Status: Ordered Pen [place], 32 G x 4 mm BD Ultra [...] 527 Gm,11 Refills, Maintenance, 01/27/20 19:13:00 EDT, [facility]/pharmacy #1026, 17- 34 Gm By Mouth Daily,PRN:asneeded [...] 10 mg oral tablet See Instructions, [facility], # 30 tablet, 5 Refills, Maintenance, [facility]ORE [id number], 160, cm, 10/22/20 9:15:00 EDT, Height, 80.6, kg, 06/03/20 19:00:00 EST, Dry Weight Start Date: 11/13/20 Status: Ordered Senna 8.6 mg oral tablet 17.2 mg, 2, tablet, By Mouth, 2 times a day, PRN, discontinue docusate, # 60 tablet, Refills 11, Tot. Refills 11, Maintenance, for constipation, 02/10/20 11:22:00 EST, Route to Pharmacy Electronically, [facility]/pharmacy #1026 Tablet, 167, cm, 01/13/20 8:5... Start [...] Maintenance, 10/15/20 16:28:00 EDT, [facility]... Start Date: 10/15/20 Status: Ordered TENS electrode pads TENS electrode pads, See Instructions, # 1 box, Refills 5, Tot. Refills 5, Maintenance, use as directed for back pain Dx LBP M54.9 1 box of 4, 12/06/16 14:59:01, Compound Start Date: 12/06/16 Status: Ordered Trelegy Ellipta inhalation powder 1 puffs, Inhalation, Daily, at the same time every day given by liquor clerk , Dr Berkowitz, # 60 each, 0 [...] Date: 09/22/20 Stop Date: 12/15/20 Status: Ordered [place] Reusable Bed Pad 34 x 36 [place] Reusable Bed Pad 34 x 36 , [...] 11 Refills, Maintenance, 10/22/20 10:19:00 EDT, Tablet, [facility]/pharmacy #1026, Partial fill upon patient request if the prescription is for a schedule II opioid drug., 1 tablet B... 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 06/16/08 SURGEON: Danny Marie M.D. TUMBLING MACHINE OPERATOR: Naima Bowling M.D. 21b/l submassive PE diagnosed on Dec 20 in [facility] 22TTE 12/22/15 in [facility]: RV dilatation, RVSP 46 23Per ECHO 05/24/17 Trace mitral regurgitation , trace TC regurgitation w no significant valve pathology 24meg colo July 2009 exc for 2 hyperplastic polyps 25Colonoscopy 2004 at [facility] [place] per letter of Dr Amor Dobbins Social History Social History Type Response Smoking Status Never (less than 100 in lifetime) entered on: 10/22/20 Sex
--- OUTSIDE RECORDS SUMMARY | 2023-10-23 09:38 | XMS_ITS | Continuity of Care Document ---
Author Organization [facility] Address [address] [place] [address]- Care Team Providers Care Manager Environmental Name Role Phone Gayathri GARZA, Florinda Primary Care Physician [facility]counter [facility] Date(s): 07/12/21 - 08/11/21 [facility] [address] [place] [address]- Allergies, Adverse Reactions, Alerts Substance Reaction Severity [...] or fever, (not to exceed 2000 mg/day) martiniquais, # 100 tablet, 11 Refills, Maintenance, 04/28/21 13:24:00 EST, [facility]/pharmacy #[id number], 160, cm, 04/28/21 9:50:00 EST, [...] Biotene Moisturizing Mouth oral spray See Instructions, [place] directly into mouth; spray is safe to swallow as needed for dry mouth, # 45mL, 11 Refills, Maintenance, 07/21/21 12:43:00 EDT, [id number], [place] directly into mouth; spray is safe to [...] 11 Refills, Maintenance, 04/21/21 18:12:00 EST, Tablet, [facility]/pharmacy #1026, 160, cm, 03/03/21 11:23:00 EST, Height, 80.6, kg, 06/03/20 19:00:00 EST, Dry Weight Start Date: 04/21/21 Status: Ordered escitalopram 20 mg oral tablet 1 tablet = 20 mg, By Mouth, Daily, Discontinue duloxetine 60 mg, # 30 tablet, 11 Refills, Maintenance, 12/09/20 11:15:00 EDT, Tablet, [facility]/pharmacy #[id number], Partial fill upon patient request [...] 04/28/21 14:34:00 EST, Route to Pharmacy Electronically, [facility]/pharmacy #[id number], Can use with HCTZ, 160, [...] capsule, 3 Refills, Maintenance, 10/22/20 10:35:00 EDT, [facility]/pharmacy #[id number], 160, cm, 10/22/20 9:15:00 EDT, [...] DAILY, E11.65, # 90 tablet, 2 Refills, [id number], 160, cm, 06/21/21 9:57:00 EDT, Height, 80.6, [...] 78.8, kg,... Start Date: 01/21/20 Status: Ordered Gvm-wpw-vkhoo medical-grade oxford diabetic shoes, depth or hightop Rkf-gue-uxwja medical-grade oxford diabetic shoes, depth or hightop, [...] days, PRN pain dispense not earlier than 08/09/21 Please dispense KVTek brand (K18) If oxycodone 5 mg tablet is not available, it can be switched to oxycodone 10 mg 0.5 tablets 4 hours x28 days fo... Start Date: 08/09/21 Stop Date: 09/06/21 Status: Ordered oxyCODONE 5 mg oral tablet 5 mg, 1, tablet, By Mouth, Every 4 hours, for 28 days, PRN pain dispense not earlier than 09/06/21 Please dispense KVTek brand (K18) If oxycodone 5 mg tablet is not available, it can be switched to oxycodone 10 mg 0.5 tablets 4 hours x28 days f... Start Date: 09/06/21 Stop Date: 10/04/21 Status: [...] 10/04/21 Stop Date: 11/01/21 Status: Ordered Pen [place], 32 G x 4 mm BD Ultra [...] 04/28/21 14:02:00 EST, Route to Pharmacy Electronically, [facility]/pharmacy #[id number], 160... Start Date: 04/28/21 Stop [...] 527 Gm,11 Refills, Maintenance, 01/27/20 19:13:00 EDT, [facility]/pharmacy #1026, 17- 34 Gm By Mouth [...] 11 Refills, Maintenance, 04/28/21 14:03:00 EST, Tablet, [facility]/pharmacy #1026, 160, cm, 04/28/21 9:50:00 EST, Height, 80.6, kg, 06/03/20 19:00:00 EST, Dry Weight Start Date: 04/28/21 Status: Ordered Senna-Time 8.6 mg oral tablet 2 tablet, By Mouth, 2 times a day, PRN NEEDED FOR CONSTIPATION,INSTR, DISCONTINUE DOCUSATE, # 60tablet, 11 Refills, [id number], 160, cm, 03/03/21 11:23:00 EST, Height, 80.6, [...] 02/22/21 17:50:00 EST, Route to Pharmacy Electronically, [facility]/pharmacy #[id number], 1... Start Date: 02/22/21 Status: [...] 02/15/21 11:39:00 EST, Route to Pharmacy Electronically, [facility]/pharmacy #[id number],Partial fill upon patient request if the prescrip... Start Date: 02/15/21 Stop Date: 03/29/21 Status: Ordered Trelegy Ellipta inhalation powder 1 puffs, Inhalation, Daily, at the same time every day Given by Environmental Services Manager, Dr. Michael Berkowitz, # 60 each, 0 Refills, Maintenance, 07/21/21 11:59:00 EDT, Powder, Partial fill upon patient request if the prescription is for a schedule II opi... Start Date: 07/21/21 Status: Ordered Tresiba FlexTouch 200 units/mL subcutaneous solution See Instructions, INJECT 86 UNITS DAILY AT 9PM, # 45 Unknown, 6 Refills, [id number], 160, cm, 06/21/21 9:57:00 EDT, Height, 80.6, kg, 06/03/20 19:00:00 EST, Dry Weight Start Date: 06/22/21 Status: Ordered Ventolin HFA 108 mcg/inh inhalation aerosol with adapter 2 puffs, Inhalation, 4 times a day, PRN Wheezing/Shortness of Breath, dispense when patient requestit, # 18 Gm, 5 Refills, Maintenance, 11/09/20 12:36:00 EDT, [facility]/pharmacy #[id number], 160, cm, 10/22/20 9:15:00 EDT, Height, 80.6, kg, 06/03/20 19:00:00 EST,... Start Date: 11/09/20 Status: Ordered Voltaren 1% topical gel = 2 Gm, Topically, 4 times a day, # 100 Gm, 5 Refills, Maintenance, 02/15/21 11:40:00 EST, [facility]/pharmacy #1026, 2 Gm Topically 4 times a day,x14 days, 160, cm, 02/15/21 8:47:00 EST, Height, 80.6, kg, 06/03/20 19:00:00 EST, Dry Weight Start Date: 02/15/21 Stop Date: 05/10/21 Status: Ordered [place] Reusable Bed Pad 34 x 36 [place] Reusable Bed Pad 34 x 36 , [...] Active Diabetic angiopathy(Confirmed) Active Diastolic dysfunction(Confirmed) 7 2/14/18 Active Dry skin(Confirmed) Active Dysuria(Confirmed) Active Esophageal varices(Confirmed) 8, 9 06/24/16 Active Fibromyalgia muscle pain(Confirmed) 09/12/12 Active Gastritis(Confirmed) 10 06/24/16 Active Hearing test abnormal(Confirmed) 11 12/29/11 Active Hepatitis C(Confirmed) 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 06/16/08 SURGEON: Danny Marie M.D. PATIENT CARE ASSISTANT: Naima Bowling M.D. 21b/l submassive PE diagnosed on Dec 20 in [facility] 22TTE 12/22/15 in [facility]: RV dilatation, RVSP 46 23Per ECHO 05/24/17 Trace mitral regurgitation , trace TC regurgitation w no significant valve pathology 24meg colo July 2009 exc for 2 hyperplastic polyps 25Colonoscopy 2004 at [facility] [place] per letter of Dr Amor Dobbins Social History Social History Type Response Smoking Status Never (less than 100 in lifetime) entered on: 10/22/20 Sex
--- OUTSIDE RECORDS SUMMARY | 2023-10-23 09:38 | XMS_ITS | Continuity of Care Document ---
Author Organization [facility] Address [address] [place] [address]- Care Team Providers Care Licensed Occupational Therapy Assistant Name Role Phone Florinda Trinh MD Primary Care Physician [place] [facility](s): 04/20/20 - 06/12/20 [facility] [address] [place] [address]- Attending Physician: Florinda Trinh MD Admitting Physician: [...] or fever, (not to exceed 2000 mg/day) kazakh, # 100 tablet, 5 Refills, Maintenance, 01/22/20 [...] 06/12/20 8:36:00 EST, Route to Pharmacy Electronically, [facility]/pharmacy #[id number], 160, cm, 06/04/20 11:29:00 EST, Height, 80.6, kg, 06/03/20 19:00:00 EST, Dry Weight Start Date: 06/12/20 Status: Ordered ammonium lactate 12% topical cream 1 applicator, Topically, 2 times a day, # 280 Gm, 11 Refills, Maintenance, 01/27/20 19:13:00 EDT, [facility]/pharmacy #1026, 1 applicator Topically 2 times a day, 167, cm, 01/13/20 8:54:00 EDT, Height, 78.8, kg, 01/01/20 3:41:00 EDT, Dry Weight Start Date: 01/27/20 Status: Ordered calcium (as citrate)-vitamin D 315 mg-250 intl units oral tablet 2 tablet, By Mouth, 2 times a day, for 30 days, calcium citrate, # 120 tablet, 11 Refills, Hard Stop 01/21/21 19:13:00 EDT, 01/27/20 19:13:00 EDT, Tablet, [facility]/pharmacy #1026, 167, cm, 01/13/20 8:54:00 EDT, Height, 78.8, kg, 01/01/20 3:41:00 EDT, Dry... Start Date: 01/27/20 Stop Date: 01/21/21 Status: Ordered capsaicin 0.025% topical cream 1 application, Topically, 3 times a day, # 90 Gm, 11 Refills, Maintenance, 02/10/20 11:22:00 EST, Cream, [facility]/pharmacy #1026, 1 application Topically 3 times a [...] Refills, Maintenance, 01/27/20 19:13:00 EDT, EC Capsule, [facility]/pharmacy #1026, 167, cm, 01/13/20 8:54:00 EDT, Height, 78.8, kg, 01/01/20 3:41:00 EDT, Dry Weight Start Date: 01/27/20 Status: Ordered Eliquis 5 mg oral tablet 1 tablet = 5 mg, By Mouth, 2 times a day, # 60 tablet, 11 Refills, Maintenance, 02/10/20 11:22:00 EST, Tablet, [facility]/pharmacy #1026, 167, cm, 01/13/20 8:54:00 EDT, Height, 78.8, kg, 01/01/20 3:41:00 EDT, Dry Weight Start Date: 02/10/20 Status: Ordered famotidine 40 mg oral tablet 1 tablet = 40 mg, By Mouth, Daily at bedtime, If 40 mg tablet is not available, can change to 20 mgtablet 2 tablet at bedtime, # 30 tablet, 2 Refills, Maintenance, 04/04/20 16:07:00 EST, Tablet, [facility]/pharmacy #1026, 167, cm, 02/24/20 17:04:00 EST, Hei... [...] 01/22/20 9:41:00 EDT, Route to Pharmacy Electronically, [facility]/pharmacy #1026, 167, cm, 01/13/20 8:54:00 EDT, Height, 78... Start Date: 01/22/20 Status: Ordered NovoLOG FlexPen 100 units/mL subcutaneous solution See Instructions, Inject up to 26 untis via Insulin sliding scale 3x a day w/meals,MAX daily dose 78 units, E11.65, # 45 mL, 6 Refills, Maintenance, 01/21/20 14:30:00 EDT, [facility]/pharmacy #1026, 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 Start Date: 01/21/20 Status: Ordered Ulu-uke-tfnte medical-grade oxford diabetic shoes, depth or hightop Vah-mlt-srfnk medical-grade oxford diabetic shoes, depth or hightop, [...] EDT, 06/12/20 10:25:00 EST, Route toPharmacy Electronically, [facility]/pharmacy #1026, Parti... Start Date: 06/12/20 Stop Date: 07/10/20 Status: Ordered oxyCODONE 5 mg oral tablet 5 mg, 1, tablet, By Mouth, Every 4 hours, for 28 days, PRN pain dispense not earlier than 07/10/20, #168 tablet, Refills 0, Tot. Refills 0, Acute 08/07/20 10:25:00 EDT, 07/10/20 10:25:00 EDT, [facility]acy [facility]ically, [facility], Parti... Start Date: 07/10/20 Stop Date: 08/07/20 Status: Ordered Pen [place], 32 G x 4 mm BD Ultra [...] 02/10/20 11:22:00 EST, Route to Pharmacy Electronically, [facility]/pharmacy #1026 Tablet, 167, cm, 01/13/20 8:5... Start [...] 05/01/20 9:28:00 EST, Route to Pharmacy Electronically, [facility]/pharmacy #1026, 167,... Start Date: 05/01/20 Status: Ordered TENS electrode pads TENS electrode pads, See Instructions, # 1 box, Refills 5, Tot. Refills 5, Maintenance, use as directed for back pain Dx LBP M54.9 1 box of 4, 12/06/16 14:59:01, Compound Start Date: 12/06/16 Status: Ordered Trelegy Ellipta inhalation powder 1 puffs, Inhalation, Daily, at the same time every day given by focuser , Dr Berkowitz, # 60 each, 0 [...] Date: 06/12/20 Stop Date: 09/04/20 Status: Ordered [place] Reusable Bed Pad 34 x 36 [place] Reusable Bed Pad 34 x 36 , [...] apnea)(Confirmed) Active Osteopenia(Confirmed) 18, 19 11/16/12 Active *[id number] Care Partn igor More(Confirmed) Active Peripheral venous [...] 2 peroneal veins diagnosed on Dec 20 [facility] 6insulin dependent 7Per ECHO 05/24/1718 [...] 1 11left mild sensorineural hearing loss by [facility] Hearing Evaluation on 12/29/11 12Narcotic [...] lower parathyroidectomy. 06/16/08 SURGEON: Danny Marie M.D. FARM PRODUCT PURCHASER: Naima Bowling M.D. 21b/l submassive PE diagnosed on Dec 20 in [facility] 22TTE 12/22/15 in [facility]: RV dilatation, RVSP 46 23Per ECHO 05/24/17 Trace mitral regurgitation , trace TC regurgitation w no significant valve pathology 24meg colo July 2009 exc for 2 hyperplastic polyps 25Colonoscopy 2004 at [facility] [place] per letter of Dr Amor Dobbins Social History Social History Type Response Smoking Status Never (less than 100 in lifetime) entered on: 06/12/20 Sex
--- OUTSIDE RECORDS SUMMARY | 2023-10-23 09:38 | XMS_ITS | Continuity of Care Document ---
Author Organization [facility] Address [address] [place] [address]- Care Team Providers Care Hot Patcher Name Role Phone Gayathri GARZA, Florinda Primary Care Physician Encounter [facility] Date(s): 04/17/20 - 05/17/20 [facility] [place] [address] [place] [address]- Allergies, Adverse Reactions, Alerts Substance Reaction Severity [...] or fever, (not to exceed 2000 mg/day) syriac, # 100 tablet, 5 Refills, Maintenance, 01/22/20 [...] 01/21/21 19:13:00 EDT, 01/27/20 19:13:00 EDT, Tablet, [facility]/pharmacy #1026, 167, cm, 01/13/20 8:54:00 EDT, Height, 78.8, kg, 01/01/20 3:41:00 EDT, Dry... Start Date: 01/27/20 Stop Date: 01/21/21 Status: Ordered capsaicin 0.025% topical cream 1 application, Topically, 3 times a day, # 90 Gm, 11 Refills, Maintenance, 02/10/20 11:22:00 EST, Cream, [facility]/pharmacy #1026, 1 application Topically 3 times [...] Refills, Maintenance, 01/27/20 19:13:00 EDT, EC Capsule, [facility]/pharmacy #1026, 167, cm, 01/13/20 8:54:00 EDT, Height, 78.8, kg, 01/01/20 3:41:00 EDT, Dry Weight Start Date: 01/27/20 Status: Ordered Eliquis 5 mg oral tablet 1 tablet = 5 mg, By Mouth, 2 times a day, # 60 tablet, 11 Refills, Maintenance, 02/10/20 11:22:00 EST, Tablet, [facility]/pharmacy #1026, 167, cm, 01/13/20 8:54:00 EDT, Height, 78.8, kg, 01/01/20 3:41:00 EDT, Dry Weight Start Date: 02/10/20 Status: Ordered enalapril 10 mg oral tablet 10 mg, 1, tablet, By Mouth, Daily, discontinue hydrochlorothiazide, # 30 tablet, Refills 11, Tot. Refills 11, Maintenance, 04/29/20 13:04:00 EST, Route to Pharmacy Electronically, [facility]/pharmacy #1026,167, cm, 04/29/20 9:24:00 EST, Height, 82, kg, ... Start Date: 04/29/20 Status: Ordered famotidine 40 mg oral tablet 1 tablet = 40 mg, By Mouth, Daily at bedtime, If 40 mg tablet is not available, can change to 20 mgtablet 2 tablet at bedtime, # 30 tablet, 2 Refills, Maintenance, 04/04/20 16:07:00 EST, Tablet, [facility]/pharmacy #1026, 167, cm, 02/24/20 17:04:00 EST, Hei... Start Date: 04/04/20 Status: Ordered ferrous sulfate 325 mg oral tablet 1 tablet = 325 mg, By Mouth, Daily, May take with food to minimize abdominal discomfort. Do not take with milk. Take preferrably with juice., # 90 tablet, 2 Refills, Maintenance, 01/22/20 9:38:00 EDT, [facility]/pharmacy #1026, 167, cm, 01/13/20 8:54:00 EDT,... [...] capsule, 4 Refills, Maintenance, 01/22/20 9:39:00 EDT, [facility]/pharmacy #1026, 167, cm, 01/13/20 8:54:00 EDT, Height, 78.8, kg, 01/01/20 3:41:00 EDT, Dry Weight Start Date: 01/22/20 Stop Date: 06/20/20 Status: Ordered ketotifen 0.025% ophthalmic solution 1 drops, Eyes, Both, Every 12 hours, PRN as needed for eye allergy, # 7.5 mL, 11 Refills, Maintenance, 01/27/20 19:13:00 EDT, [facility]/pharmacy #1026, 1 drops Eyes, Both Every [...] 01/22/20 9:41:00 EDT, Route to Pharmacy Electronically, [facility]/pharmacy #1026, 167, cm, 01/13/20 8:54:00 EDT, Height, 78... Start Date: 01/22/20 Status: Ordered NovoLOG FlexPen 100 units/mL subcutaneous solution See Instructions, Inject up to 26 untis via Insulin sliding scale 3x a day w/meals,MAX daily dose 78 units, E11.65, # 45 mL, 6 Refills, Maintenance, 01/21/20 14:30:00 EDT, [facility]/pharmacy #1026, 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 Start Date: 01/21/20 Status: Ordered Kxg-yty-puiwr medical-grade oxford diabetic shoes, depth or hightop Sma-fnk-kgomf medical-grade oxford diabetic shoes, depth or hightop, [...] EST, 05/15/20 10:25:00 EST, Route toPharmacy Electronically, [facility]/pharmacy #1026, Parti... Start Date: 05/15/20 Stop Date: [...] 07/10/20 Stop Date: 08/07/20 Status: Ordered Pen [place], 32 G x 4 mm BD Ultra [...] 527 Gm,11 Refills, Maintenance, 01/27/20 19:13:00 EDT, [facility]/pharmacy #1026, 17- 34 Gm By Mouth [...] 02/10/20 11:22:00 EST, Route to Pharmacy Electronically, [facility]/pharmacy #1026 Tablet, 167, cm, 01/13/20 8:5... [...] 05/01/20 9:28:00 EST, Route to Pharmacy Electronically, [facility]/pharmacy #1026, 167,... Start Date: 05/01/20 Status: Ordered TENS electrode pads TENS electrode pads, See Instructions, # 1 box, Refills 5, Tot. 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 06/16/08 SURGEON: Danny Marie M.D. LUMBER STACKER OPERATOR: Naima Bowling M.D. 21b/l submassive PE diagnosed on Dec 20 in [facility] 22TTE 12/22/15 in [facility]: RV dilatation, RVSP 46 23Per ECHO 05/24/17 Trace mitral regurgitation , trace TC regurgitation w no significant valve pathology 24meg colo July 2009 exc for 2 hyperplastic polyps 25Colonoscopy 2004 at [facility] [place] per letter of Dr Amor Dobbins Social History Social History Type Response Smoking Status Never (less than 100 in lifetime) entered on: 04/29/20 Sex
--- OUTSIDE RECORDS SUMMARY | 2023-10-23 09:38 | XMS_ITS | Continuity of Care Document ---
Author Organization [facility] Address [address] [place] [address]- Care Team Providers Care Electrophysiology Technician Name Role Phone Gayathri GARZA, Florinda Primary Care Physician En[place] [facility] [place](s): 04/09/20 - 05/09/20 [facility] [address] [place] [id number] Attending Physician: Nory Helton MD Admitting Physician: Nory Helton MD Referring Physician: Florinda Trinh MD Allergies, [...] by denny chiu 6Admin Note: ADMINISTERED BY RYoana 7Result Comment: [05/13/2014] Ordered by Kendall 8Result Comment: [05/13/2014] Ordered by Kendall 9Result Comment: [10/16/2012] ORDERED BY 10Admin Note: VIS 01/13/09 GIVEN 11Admin Note: ADMINISTERED BY RN 12Admin Note: VIS 02/26/08 GIVEN Medications acetaminophen 500 mg oral tablet 2 tablet = 1,000 mg, By Mouth, Every 6 hours, PRN as needed for pain or fever, (not to exceed 2000 mg/day) uzbek, # 100 tablet, 5 Refills, Maintenance, 01/22/20 [...] 19:13:00 EDT, 01/27/20 19:13:00 EDT, Tablet, [facility]/pharmacy #[id number], 167, cm, 01/13/20 8:54:00 EDT, Height, 78.8, kg, 01/01/20 3:41:00 EDT, Dry... Start Date: 01/27/20 Stop Date: 01/21/21 Status: Ordered capsaicin 0.025% topical cream 1 application, Topically, 3 times a day, # 90 Gm, 11 Refills, Maintenance, 02/10/20 11:22:00 EST, Cream, [facility]/pharmacy #[id number], 1 application Topically 3 times a [...] Maintenance, 01/27/20 19:13:00 EDT, EC Capsule, [facility]/pharmacy #[id number], 167, cm, 01/13/20 8:54:00 EDT, Height, 78.8, kg, 01/01/20 3:41:00 EDT, Dry Weight Start Date: 01/27/20 Status: Ordered Eliquis 5 mg oral tablet 1 tablet = 5 mg, By Mouth, 2 times a day, # 60 tablet, 11 Refills, Maintenance, 02/10/20 11:22:00 EST, Tablet, [facility]/pharmacy #1026, 167, cm, 01/13/20 8:54:00 EDT, Height, 78.8, kg, 01/01/20 3:41:00 EDT, Dry Weight Start Date: 02/10/20 Status: Ordered enalapril 10 mg oral tablet 10 mg, 1, tablet, By Mouth, Daily, discontinue hydrochlorothiazide, # 30 tablet, Refills 11, Tot. Refills 11, Maintenance, 04/29/20 13:04:00 EST, Route to Pharmacy Electronically, [facility]/pharmacy #1026,167, cm, 04/29/20 9:24:00 EST, Height, 82, kg, ... Start Date: 04/29/20 Status: Ordered famotidine 40 mg oral tablet 1 tablet = 40 mg, By Mouth, Daily at bedtime, If 40 mg tablet is not available, can change to 20 mgtablet 2 tablet at bedtime, # 30 tablet, 2 Refills, Maintenance, 04/04/20 16:07:00 EST, Tablet, [facility]/pharmacy #1026, 167, cm, 02/24/20 17:04:00 EST, Hei... Start Date: 04/04/20 Status: Ordered ferrous sulfate 325 mg oral tablet 1 tablet = 325 mg, By Mouth, Daily, May take with food to minimize abdominal discomfort. Do not take with milk. Take preferrably with juice., # 90 tablet, 2 Refills, Maintenance, 01/22/20 9:38:00 EDT, [facility]/pharmacy #1026, 167, cm, 01/13/20 8:54:00 EDT,... Start [...] 4 Refills, Maintenance, 01/22/20 9:39:00 EDT, [facility]/pharmacy #1026, 167, cm, 01/13/20 8:54:00 EDT, Height, 78.8, kg, 01/01/20 3:41:00 EDT, Dry Weight Start Date: 01/22/20 Stop Date: 06/20/20 Status: Ordered ketotifen 0.025% ophthalmic solution 1 drops, Eyes, Both, Every 12 hours, PRN as needed for eye allergy, # 7.5 mL, 11 Refills, Maintenance, 01/27/20 19:13:00 EDT, [facility]/pharmacy #1026, 1 drops Eyes, Both Every 12 [...] 9:41:00 EDT, Route to Pharmacy Electronically, [facility]/pharmacy #1026, 167, cm, 01/13/20 8:54:00 EDT, Height, 78... Start Date: 01/22/20 Status: Ordered NovoLOG FlexPen 100 units/mL subcutaneous solution See Instructions, Inject up to 26 untis via Insulin sliding scale 3x a day w/meals,MAX daily dose 78 units, E11.65, # 45 mL, 6 Refills, Maintenance, 01/21/20 14:30:00 EDT, [facility]/pharmacy #1026, 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 Start Date: 01/21/20 Status: Ordered Air-teg-fujpe medical-grade oxford diabetic shoes, depth or hightop Fwo-iyg-xjmkn medical-grade oxford diabetic shoes, depth or hightop, [...] days, PRN pain dispense not earlier than 04/15/20, #168 tablet, Refills 0, Tot. Refills 0, Acute 05/15/20 10:25:00 EST, 04/17/20 10:25:00 EST, Route toPharmacy Electronically, [facility]/pharmacy #1026, Parti... Start Date: 04/17/20 Stop Date: 05/15/20 Status: Ordered oxyCODONE 5 mg oral tablet 5 mg, 1, tablet, By Mouth, Every 4 hours, for 28 days, PRN pain dispense not earlier than 05/15/20, #168 tablet, Refills 0, Tot. Refills 0, Acute 06/12/20 10:25:00 EST, 05/15/20 10:25:00 EST, Route toPharmacy Electronically, [facility]/pharmacy #1026, Parti... Start Date: 05/15/20 Stop Date: 06/12/20 Status: Ordered oxyCODONE 5 mg oral tablet 5 mg, 1, tablet, By Mouth, Every 4 hours, for 28 days, PRN pain dispense not earlier than 06/12/20, #168 tablet, Refills 0, Tot. Refills 0, Acute 07/10/20 10:25:00 EDT, 06/12/20 10:25:00 EST, Route toPharmacy Electronically, [facility]/pharmacy #1026, Parti... Start Date: 06/12/20 Stop Date: 07/10/20 Status: Ordered oxyCODONE 5 mg oral tablet 5 mg, 1, tablet, By Mouth, Every 4 hours, for 28 days, PRN pain dispense not earlier than 07/10/20, #168 tablet, Refills 0, Tot. Refills 0, Acute 08/07/20 10:25:00 EDT, 07/10/20 10:25:00 EDT, Route toPharmacy Electronically, [facility]/pharmacy #1026, Parti... Start Date: 07/10/20 Stop Date: 08/07/20 Status: Ordered oxyCODONE 5 mg oral tablet 5 mg, 1, tablet, By Mouth, Every 4 hours, for 28 days, PRN pain dispense not earlier than 04/15/20 3 of 3, # 168 tablet, Refills 0, Tot. Refills 0, Acute 05/13/20 10:25:00 EST, 04/15/20 10:25:00 EST, Route to Pharmacy Electronically, [facility]... Start Date: 04/15/20 Stop Date: 05/13/20 Status: Ordered Pen [place]y, 32 G x 4 mm BD Ultra [...] 11:22:00 EST, Route to Pharmacy Electronically, [facility]/pharmacy #1026 Tablet, 167, cm, 01/13/20 8:5... Start [...] 9:28:00 EST, Route to Pharmacy Electronically, [facility]/pharmacy #1026, 167,... Start Date: 05/01/20 Status: Ordered TENS electrode pads TENS electrode pads, See Instructions, # 1 box, Refills 5, Tot. Refills 5, Maintenance, use as directed for back pain Dx LBP M54.9 1 box of 4, 12/06/16 14:59:01, Compound Start Date: 12/06/16 Status: Ordered Trelegy Ellipta inhalation powder 1 puffs, Inhalation, Daily, at the same time every day given by detective chief , Dr Berkowitz, # 60 each, 0 Refills, Maintenance, 11/20/19 13:03:00 EDT, Powder Start Date: 11/20/19 Status: Ordered Tresiba FlexTouch 200 units/mL subcutaneous solution See Instructions, Inject 86 units daily at 9pm, E11.65, # 45 mL, 6 Refills, Maintenance, 01/21/20 14:30:00 EDT, [facility]/pharmacy #1026, 167, cm, 01/13/20 8:54:00 EDT, Height, 78.8, kg, 01/01/20 3:41:00 EDT, Dry Weight Start Date: 01/21/20 Status: Ordered Ventolin HFA 108 mcg/inh inhalation aerosol with adapter 2 puffs, Inhalation, 4 times a day, PRN Wheezing/Shortness of Breath, dispense when patient requestit, # 18 Gm, 5 Refills, Maintenance, 01/22/20 9:19:00 EDT, [facility]/pharmacy #1026, 167, cm, 01/13/20 8:54:00 EDT, Height, 78.8, kg, 01/01/20 3:41:00 EDT, D... 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 06/16/08 SURGEON: Danny Marie M.D. MISSILE FACILITIES REPAIRER: Naima Bowling M.D. 21b/l submassive PE diagnosed on Dec 20 in [facility] 22TTE 12/22/15 in [facility]: RV dilatation, RVSP 46 23Per ECHO 05/24/17 Trace mitral regurgitation , trace TC regurgitation w no significant valve pathology 24meg colo July 2009 exc for 2 hyperplastic polyps 25Colonoscopy 2004 at [facility] [place] per letter of Dr Amor Dobbins Social History Social History Type Response Smoking Status Never (less than 100 in lifetime) entered on: 04/29/20 Sex
--- OUTSIDE RECORDS SUMMARY | 2023-10-23 09:38 | XMS_ITS | Continuity of Care Document ---
Author Organization [facility] Address [address] [place] [address]- Care Team Providers Care Hospitalist Nocturnist Physician Name Role Phone Florinda Trinh MD Primary Care Physician Encounter [facility] [place] Date(s): 09/08/20 - 10/08/20 [facility] [address] [place] [address]- Allergies, Adverse Reactions, Alerts Substance Reaction Severity [...] or fever, (not to exceed 2000 mg/day) bolivian, # 100 tablet, 11 Refills, Maintenance, 08/14/20 [...] 07/16/20 15:26:00 EDT, Route to Pharmacy Electronically, [facility]/pharmacy #1026, 160, cm, 06/12/20 9:01... Start Date: 07/16/20 Status: Ordered ammonium lactate 12% topical cream 1 applicator, Topically, 2 times a day, # 280 Gm, 11 Refills, Maintenance, 01/27/20 19:13:00 EDT, [facility]/pharmacy #1026, 1 applicator Topically 2 times a day, 167, cm, 01/13/20 8:54:00 EDT, Height, 78.8, kg, 01/01/20 3:41:00 EDT, Dry Weight Start Date: 01/27/20 Status: Ordered Baqsimi Two Pack 3 mg nasal powder = 3 mg, Naris, Right, Once, Please use for a low blood sugar emergency, may repeat in 15 minutes, #2 each, 3 Refills, Soft Stop, 06/26/20 7:30:00 EDT, [facility]/pharmacy #1026, Partial fill upon patient request if the prescription is for a schedule II op... Start Date: 06/26/20 Status: Ordered calcium (as citrate)-vitamin D 315 mg-250 intl units oral tablet 2 tablet, By Mouth, 2 times a day, for 30 days, calcium citrate, # 120 tablet, 11 Refills, Hard Stop 01/21/21 19:13:00 EDT, 01/27/20 19:13:00 EDT, Tablet, [facility]/pharmacy #1026, 167, cm, 01/13/20 8:54:00 EDT, Height, 78.8, kg, 01/01/20 3:41:00 EDT, Dry... Start Date: 01/27/20 Stop Date: 01/21/21 Status: Ordered capsaicin 0.025% topical cream 1 application, Topically, 3 times a day, # 90 Gm, 11 Refills, Maintenance, 02/10/20 11:22:00 EST, Cream, [facility]/pharmacy #1026, 1 application Topically 3 [...] Refills, Maintenance, 01/27/20 19:13:00 EDT, EC Capsule, [facility]/pharmacy #1026, 167, cm, 01/13/20 8:54:00 EDT, Height, 78.8, kg, 01/01/20 3:41:00 EDT, Dry Weight Start Date: 01/27/20 Status: Ordered Eliquis 5 mg oral tablet 1 tablet = 5 mg, By Mouth, 2 times a day, # 60 tablet, 11 Refills, Maintenance, 02/10/20 11:22:00 EST, Tablet, [facility]/pharmacy #1026, 167, cm, 01/13/20 8:54:00 EDT, Height, 78.8, kg, 01/01/20 3:41:00 EDT, Dry Weight Start Date: 02/10/20 Status: Ordered famotidine 40 mg oral tablet 1 tablet = 40 mg, By Mouth, Daily at bedtime, If 40 mg tablet is not available, can be changed to 20 mg tablet 2 tablet at bedtime, # 90 tablet, 3 Refills, Maintenance, 06/30/20 14:55:00 EDT, Tablet,[facility]/pharm[facility] #1026, Discontinue 30- day supply presc... Start Date: 06/30/20 Stop Date: 06/25/21 Status: Ordered ferrous sulfate 325 mg oral tablet 1 tablet = 325 mg, By Mouth, Daily, May take with food to minimize abdominal discomfort. Do not take with milk. Take preferrably with juice., # 90 tablet, 1 Refills, Maintenance, 08/31/20 14:45:00 EDT, [facility]/pharmacy #1026, 160, cm, 08/14/20 9:34:00 EDT... [...] capsule, 0 Refills, Maintenance, 08/28/20 17:52:00 EDT, [facility]/pharmacy #1026, 160, cm, 08/14/20 9:34:00 EDT, Height, 80.6, kg, 06/03/20 19:00:00 EST, Dry Weight Start Date: 08/28/20 Stop Date: 11/26/20 Status: Ordered ketotifen 0.025% ophthalmic solution 1 drops, Eyes, Both, Every 12 hours, PRN as needed for eye allergy, # 7.5 mL, 11 Refills, Maintenance, 01/27/20 19:13:00 EDT, [facility]/pharmacy #1026, 1 drops Eyes, Both [...] 06/24/20 9:08:00 EDT, Route to Pharmacy Electronically, [facility]/pharmacy #1026, 160, cm, 06/12/20 9:01:00 EST, Height, 80... Start Date: 06/24/20 Status: Ordered NovoLOG FlexPen 100 units/mL subcutaneous solution See Instructions, Inject up to 26 untis via Insulin sliding scale 3x a day w/meals,MAX daily dose 78 units, E11.65, # 45 mL, 6 Refills, Maintenance, 01/21/20 14:30:00 EDT, [facility]/pharmacy #1026, 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 Start Date: 01/21/20 Status: Ordered Hqo-pjv-ceqlp medical-grade oxford diabetic shoes, depth or hightop Rez-aff-virco medical-grade oxford diabetic shoes, depth or hightop, [...] 10/30/20 10:25:00 EDT, Route to Pharmacy Electronically, [facility]/pharmacy #1026, Part... Start Date: 10/30/20 Stop Date: 11/27/20 Status: Ordered oxyCODONE 5 mg oral tablet 5 mg, 1, tablet, By Mouth, Every 4 hours, for 28 days, PRN pain dispense not earlier than 11/27/20, # 168 tablet, Refills 0, Tot. Refills 0, Acute 12/25/20 10:25:00 EDT, 11/27/20 10:25:00 EDT, Route to Pharmacy Electronically, [facility]/pharmacy #1026, Part... Start Date: 11/27/20 Stop Date: 12/25/20 Status: Ordered oxyCODONE 5 mg oral tablet 5 mg, 1, tablet, By Mouth, Every 4 hours, for 28 days, PRN pain dispense not earlier than 10/02/20, # 168 tablet, Refills 0, Tot. Refills 0, Acute 10/30/20 10:25:00 EDT, 10/02/20 10:25:00 EDT, Route to Pharmacy Electronically, [facility]/pharmacy #1026, Part... Start Date: 10/02/20 Stop Date: 10/30/20 Status: Ordered oxyCODONE 5 mg oral tablet 5 mg, 1, tablet, By Mouth, Every 4 hours, for 28 days, PRN pain dispense not earlier than 10/02/20, # 168 tablet, Refills 0, Tot. Refills 0, Acute 11/27/20 10:25:00 EDT, 10/30/20 10:25:00 EDT, Route to Pharmacy Electronically, [facility]/pharmacy #1026, Part... Start Date: 10/30/20 Stop Date: 11/27/20 Status: Ordered Pen [place], 32 G x 4 mm BD Ultra [...] 527 Gm,11 Refills, Maintenance, 01/27/20 19:13:00 EDT, [facility]/pharmacy #1026, 17- 34 Gm By [...] 02/10/20 11:22:00 EST, Route to Pharmacy Electronically, [facility]/pharmacy #1026 Tablet, 167, cm, 01/13/20 8:5... [...] 05/01/20 9:28:00 EST, Route to Pharmacy Electronically, [facility]/pharmacy #1026, 167,... Start Date: 05/01/20 Status: [...] tablet, Refills 0, Tot. Refills 0, Maintenance, 09/24/20 11:34:00 EDT, Route to Pharmacy Electronically, [facility]/pharmacy #1026,Partial fill upon patient request if the prescrip... Start Date: 09/24/20 Stop Date: 10/08/20 Status: Ordered Trelegy Ellipta inhalation powder 1 puffs, Inhalation, Daily, at the same time every day given by case management social worker , Dr Berkowitz, # 60 each, [...] Date: 09/22/20 Stop Date: 12/15/20 Status: Ordered [place] Reusable Bed Pad 34 x 36 Paulina Reusable Bed Pad 34 x 36 , [...] apnea)(Confirmed) Active Osteopenia(Confirmed) 18, 19 11/16/12 Active *[phone] Cheri More(Confirmed) Active Peripheral venous insufficiency(Confirmed) 10/31/11 Active [...] mild sensorineural hearing loss by [facility] Hearing Evaluation on 12/29/11 12Narcotic contract w [...] lower parathyroidectomy. 06/16/08 SURGEON: Danny Marie M.D. BUTTER PRINTER: Naima Bowling M.D. 21b/l submassive PE diagnosed on Dec 20 in [facility] 22TTE 12/22/15 in [facility]: RV dilatation, RVSP 46 23Per ECHO 05/24/17 Trace mitral regurgitation , trace TC regurgitation w no significant valve pathology 24meg colo July 2009 exc for 2 hyperplastic polyps 25Colonoscopy 2004 at [facility] [place] per letter of Dr Amor Dobbins Social History Social History Type Response Smoking Status Never (less than 100 in lifetime) entered on: 09/10/20 Sex
--- OUTSIDE RECORDS SUMMARY | 2023-10-23 09:38 | XMS_ITS | Continuity of Care Document ---
Author Organization [facility] Address [address] [place] [id number]- Care Team Providers Care Car Knocker Name Role Phone Gayathri GARZA, Florinda Primary Care Physician [place] [facility] [place]18[place] 04/17/22 [facility] [address] [place] [id number]- Referring Physician: Marisabel Camarillo Allergies, Adverse Reactions, Alerts Substance Reaction Severity Status penicillin RASH Active morphine itchy Active Bactrim 1 hyperkalemia Active Lidocaine, Topical Active 1Hyperkalemia when used together with lisinopril Immunizations Given and Recorded Vaccine Date Status Refusal Reason zoster vaccine, inactivated 12/08/21 Given zoster vaccine, inactivated 09/15/21 Given SARS-CoV-2 mRNA ([id number]) vax 09/15/21 Given SARS-CoV-2 (COVID-19) mRNA BNT-162b2 [...] for 28 days, for pain fill date 04/13/2022 Dx Chronic LBP, renal colic, # 168 tablet, 0 Refills, Acute 05/11/22 13:10:00 EST, 04/13/22 13:10:00 EST, Tablet, [facility], Partial fill upo... Start Date: 04/13/22 Stop Date: 05/11/22 Status: Ordered acetaminophen-hydrocodone 300 mg-7.5 mg oral tablet 2 tablet, By Mouth, Every 8 hours, for 28 days, for pain fill date 05/11/2022 Dx Chronic LBP, renal colic, # 168 tablet, 0 Refills, Acute 06/08/22 13:10:00 EST, 05/11/22 13:10:00 EST, Tablet, [facility], Partial fill upo... Start Date: 05/11/22 Stop Date: 06/08/22 Status: Ordered ALCOHOL 70% PREP PADS ALCOHOL [...] Gm, 11 Refills, Maintenance, 07/21/21 12:43:00 EDT, [facility]/pharmacy #1026, 1 [...] 3 Refills, Soft Stop, 03/09/22 11:35:00 EST, [facility]/pharmacy #0838, 160, cm, 03/09/22 10:43:00EST, Height, 78, kg, 01/14/22 19:37:00 EDT, Dry W... Start Date: 03/09/22 Status: Ordered Boost Glucose Control Boost Glucose Control, 1 can, By Mouth, 3 times a day, for 30 days, # 90 each, Refills 11, Tot. Refills 11, Hard Stop 04/23/22 14:32:00 EST, indication: malnutrition E46, DM type 2 E11.9, 04/28/21 14:32:00 EST, Supply Start Date: 04/28/21 Stop Date: 04/23/22 Status: Ordered Boost Glucose Control Boost Glucose [...] needed for anxiety and 1tab at HS ffsowr-yue-lzogp, # 60 tablet, 11 Refills, Maintenance, 09/15/21 9:02:00 EDT, [facility]/pharmacy #1026, Partial fill upon patient request... Start Date: 09/15/21 Status: Ordered capsaicin 0.025% topical cream 1 application, Topically, 3 times a day, # 35 Gm, 11 Refills, Maintenance, 07/21/21 12:26:00 EDT, Cream, [facility]/pharmacy #1026, 1 [...] 11 Refills, Maintenance, 12/06/21 15:04:00 EDT, Tablet, [facility], Partial fill upon patient [...] tablet, 3 Refills, Maintenance, 07/12/21 18:53:00 EDT, Tablet,[facility]/pharmacy #1026, Discontinue 30- day supply [...] Dry Weight Start Date: 03/09/22 Status: Ordered ketotifen 0.025% ophthalmic solution 1 [...] 03/09/22 11:37:00 EST, Route to Pharmacy Electronically, [facility]/pharmacy #0838, 160, cm, 03/09/22 10:43:00 EST, Height, 78, kg, 01/14/22 19:37:00 EDT, Dry... Start Date: 03/09/22 Stop Date: 03/04/23 Status: Ordered Nexium 40 mg oral enteric coated capsule 1 capsule = 40 mg, By Mouth, Daily, 30 minutes before breakfast, # 30 capsule, 11 Refills, Maintenance, 04/28/21 14:00:00 EST, [facility]/pharmacy #1026, Discontinue pantoprazole, 160, cm, 04/28/21 9:50:00 EST, Height, 80.6, kg, 06/03/20 19:00:00 EST, Dry We... Start Date: 04/28/21 Stop Date: 04/23/22 Status: Ordered Norvasc 5 mg oral tablet 5 mg, 1, tablet, By Mouth, Daily, # 90 tablet, Refills 3, Tot. Refills 3, Maintenance, 03/09/22 11:54:00 EST, Route to Pharmacy Electronically, [facility]/pharmacy #0838, 160, cm, 03/09/22 10:43:00 [...] 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 Start Date: 03/09/22 Status: Ordered Jvq-qml-mrljp medical-grade oxford diabetic shoes, depth or hightop Zkx-ker-daxxh medical-grade oxford diabetic shoes, depth or hightop, [...] tablet, 2 Refills, Maintenance, 03/09/2211:40:00 EST, Tablet, [facility]/pharmacy #0838, 160, cm, 03/09/22 10:43:00 EST, Height, 78, kg, 01/14/22 19:37:00 EDT, Dry Weight Start Date: 03/09/22 Status: Ordered Pen [place], 32 G x 4 mm BD Ultra [...] the same time every day Given by Mechatronics Technician, Dr. Michael Berkowitz, # 60 each, 0 [...] Date: 03/09/22 Stop Date: 06/01/22 Status: Ordered [place] Reusable Bed Pad 34 x 36 Dup[place] Reusable Bed Pad 34 x 36 , [...] Osteopenia 18, 19, 20 Confirmed 11/16/12 Active *[phone] Crane Manager Karine More Confirmed Active Peripheral venous [...] mild sensorineural hearing loss by [facility] Hearing Evaluation on 12/29/11 12Narcotic [...] lower parathyroidectomy. 06/16/08 SURGEON: Danny Marie M.D. BANQUET PILOT: Naima Bowling M.D. 22b/l submassive PE diagnosed on Dec 20 in [facility] 23TTE 12/22/15 in [facility]: RV dilatation, RVSP 46 24Per ECHO 05/24/17 Trace mitral regurgitation , trace TC regurgitation w no significant valve pathology 25meg colo July 2009 exc for 2 hyperplastic polyps 26Colonoscopy 2004 at [facility] [place] per letter of Dr Amor Dobbins Social [...] Member Role: Lifetime Consulting Physician Address: Address: [address] [place] [address] [facility] [address] Name: Florinda Trinh MD Position: [facility] Primary Care Physician Member Role: PCP Address: Address: [address] [place] [address] Care Team Related Persons Name: JOSE ELIAS TODD Address: [place] [address] Name: JOSE ELIAS KIRKLAND Address: home [address] [place] [id number] Name: LEONIE SCHRADER Address: [place] [address]
--- OUTSIDE RECORDS SUMMARY | 2023-10-23 09:38 | XMS_ITS | Continuity of Care Document ---
Author Organization [facility] Address [address] [place] [address]- Care Team Providers Care Guidance Services Coordinator Name Role Phone Gayathri GARZA, Florinda Primary Care Physician Encounter [facility] Date(s): 10/09/19 - 11/08/19 [facility] [address] [place] [address]- [facility] Allergies, Adverse Reactions, Alerts Substance [...] or fever, (not to exceed 2000 mg/day) icelandic, # 100 tablet, 11 Refills, Maintenance, 01/16/19 [...] EST, DryWeight Start Date: 06/30/19 Status: Ordered calcium (as citrate)-vitamin D 315 [...] 11 Refills, Maintenance, 09/25/19 11:21:00 EDT, Cream, [facility], 1 application Topically 3 times a [...] Refills, Maintenance, 03/27/19 9:10:00 EST, EC Capsule, [facility], 159, cm, 03/20/19 14:59:00 EST, Height, 88.3, kg, 12/13/18 10:17:00 EDT, Dry Weight Start Date: 03/27/19 Status: Ordered docusate sodium 100 mg oral tablet 2 tablet = 200 mg, By Mouth, 2 times a day, # 120 tablet, 11 Refills, Maintenance, 09/25/19 11:07:00 EDT, [facility], 159, cm, 05/20/19 12:19:00 EST, Height, 88.1, kg, 04/25/19 16:02:00 EST, Dry Weight Start Date: 09/25/19 Status: Ordered Eliquis 5 mg oral tablet 1 tablet = 5 mg, By Mouth, 2 times a day, # 60 tablet, 11 Refills, Maintenance, 07/22/19 8:58:00 EDT, Tablet, [facility], 159, cm, 05/20/19 12:19:00 EST, Height, 88.1, kg, 04/25/19 16:02:00 EST, Dry Weight Start Date: 07/22/19 Status: Ordered enalapril 10 mg oral tablet 10 mg, 1, tablet, By Mouth, Daily, 90 days, # 90 tablet, Refills 3, Tot. Refills 3, Maintenance, 09/19/18 15:15:30 EDT, Route to Pharmacy Electronically, [id number], [facility] Start Date: 09/19/18 Status: Ordered famotidine 40 mg oral tablet 1 tablet = 40 mg, By Mouth, Daily at bedtime, If 40 mg tablet is not available, can change to 20 mgtablet 2 tablet at bedtime, # 30 tablet, 2 Refills, Maintenance, 10/09/19 10:01:00 EDT, Tablet, [facility], 159, cm, 09/25/19 14:31... Start Date: 10/09/19 Status: Ordered flunisolide 25 mcg/inh nasal spray 2 puffs, Nasal, 2 times a day, Keep your head down while using dispense when patient request it, # 1 each, 11 Refills, Maintenance, 07/10/19 17:15:00 EDT, [facility]/pharmacy #[id number], discontinue nasacort, 2 puffs Nasal 2 [...] capsule, 11 Refills, Maintenance, 06/30/19 9:25:00 EDT, [facility]/pharmacy #[id number], 159, cm, 05/20/19 12:19:00 EST, [...] 01/16/19 8:53:23 EDT, Route to Pharmacy Electronically, [id number], [facility]... Start Date: 01/16/19 Status: Ordered magnesium citrate 8.85% oral liquid 150 mL = 8.725 Gm, By Mouth, Once, # 300 mL, 0 Refills, Soft Stop, 06/05/18 13:22:39 EST, Liquid, 150 mL By Mouth Once Start Date: 06/05/18 Status: Ordered meclizine 12.5 mg oral tablet 1 tablet = 12.5 mg, By Mouth, Daily, PRN as needed for dizziness, # 90 tablet, 1 Refills, Maintenance, 09/25/19 11:46:00 EDT, [facility], 159, cm, 05/20/19 12:19:00 EST, Height, 88.1, kg, 04/25/19 16:02:00 EST, Dry Weight Start Date: 09/25/19 Status: Ordered metFORMIN 500 mg oral tablet 1 tablet = 500 mg, By Mouth, 2 times a day, Take 1 tablet 2x a day. E11.65, # 60 tablet, 11 Refills, Maintenance, 09/23/19 9:54:00 EDT, Tablet, [facility], 159, cm, 05/20/19 12:19:00 EST, Height, 88.1, kg, 04/25/19 16:02:00 EST, Start Date: 09/23/19 Status: Ordered NovoLOG FlexPen 100 units/mL subcutaneous solution See Instructions, Max daily dose 100 units per day. E11.65, # 45 mL, 11 Refills, Maintenance, 09/23/19 9:56:00 EDT, [facility], DxE11.65, 159, cm, 05/20/19 12:19:00 EST, Height, 88.1, kg, 04/25/19 16:02:00 EST, Dry Weight Start Date: 09/23/19 Status: Ordered Xul-kmd-bcwfy medical-grade ox[place] diabetic shoes, depth or hightop Ltg-fdy-qwpyn medical-grade [place] diabetic shoes, depth or hightop, [...] for 28 days, dispense not earlier than 10/25/19, # 140 tablet, Refills 0, Tot. Refills 0, Acute 11/22/19 11:43:00 EDT, 10/25/19 11:43:00 EDT, Route to Pharmacy Electronically, [facility], [place]... Start Date: 10/25/19 Stop Date: 11/22/19 Status: Ordered Pen [place], 32 G x 4 mm BD Ultra [...] MED L[facility] IF [facility] PLEASE DO NOT ERASE MEDICATIONS/MEDICAL SUPPLIES FROM OUTPATIENT MED LIST IF YOU ARE NOT THE PRESCRIBER OR PCP, OR ARE NOT CHANGING A MED TO AN ALTERNATE ONE, See Instructions, # 1 each, Refills 0, Tot. Refills 0, Maintenance, PLEASE DO NOT ERASE ME... Start Date: 09/22/15 Status: Ordered polyethylene glycol 3350 oral powder for reconstitution = 17 Gm, By Mouth, Daily, PRN as needed for constipation, (dissolve in water or juice), # 527 Gm, 11 Refills, Maintenance, 01/16/19 8:53:22 EDT, 17 Gm By Mouth Daily,PRN:as needed for constipation,Instr:(dissolve in water or juice) Start Date: 01/16/19 Status: Ordered pravastatin 10 [...] 09/25/19 11:08:00 EDT, Route to Pharmacy Electronically, [facility] Tablet, 159, cm, 05/20/19... Start Date: [...] tablet, Refills 5, Tot. Refills 5, Maintenance, 05/22/19 20:38:00 EST, [facility] Electron[facility], [facility] Start Date: 05/22/19 Status: Ordered TENS electrode pads TENS electrode pads, See Instructions, # 1 box, Refills 5, Tot. Refills 5, Maintenance, use as directed for back pain Dx LBP M54.9 1 box of 4, 12/06/16 14:59:01, Compound Start Date: 12/06/16 Status: Ordered Tresiba FlexTouch 200 units/mL subcutaneous solution See Instructions, Max daily dose 100 units per day. E11.65, # 18 mL, 5 Refills, Maintenance, 09/23/19 9:57:00 EDT, [facility], 159, cm, 05/20/19 12:19:00 EST, Height, 88.1, kg, 04/25/19 16:02:00 EST, Dry Weight Start Date: 09/23/19 Status: Ordered Ventolin HFA 108 mcg/inh inhalation aerosol with adapter 2 puffs, Inhalation, 4 times a day, PRN Wheezing/Shortness of Breath, dispense when patient requestit, # 18 Gm, 5 Refills, Maintenance, 07/10/19 17:15:00 EDT, [facility]/pharmacy #[id number], 159, cm, 05/20/19 12:19:00 EST, Height, 88.1, kg, 04/25/19 16:02:00 EST... Start Date: 07/10/19 Status: Ordered Vitamin D3 1000 intl units oral tablet 1 tablet = 1,000 International_Units, By Mouth, Daily, # 90 tablet, 1 Refills, Maintenance, 10/09/19 10:01:00 EDT, [facility] [place] [facility], 159, cm, 09/25/19 14:31:00 EDT, Height, 88.1, kg, 04/25/19 16:02:00 EST, Dry Weight Start Date: 10/09/19 Status: Ordered [place] Reusable Bed Pad 34 x 36 [place] Reusable Bed Pad 34 x 36 , See Instructions, # 1 each, Refills 11, Tot. Refills 11, Maintenance, Use daily at bedtime Dx mixed urinary incontinence ICD10 N39.46 Length of need: 99, 10/25/17 8:32:00 EDT, Compound Start Date: 10/25/17 Status: Ordered Problem List Condition Effective Dates Status Health Status Inform ant Anxiety depression(Confirmed) Active Back pain(Confirmed) 1, 2 Active Bronchial asthma(Confirmed) Active Cataract(Confirmed) 3 Active Cholecystectomy(Confirmed) Active Deep vein thrombosis (DVT)(C onfirmed) 4 12/21/15 Active Diabetes mellitus type 2(Confirmed) 5 Active Diabetic neuropathy(Confirmed) 09/19/07 Active Diabetic angiopathy(Confirmed) Active Diastolic dysfunction(Confirmed) 6 05/24/17 Active Dry skin(Confirmed) Active Esophageal varices(Confirmed) 7 06/24/16 Active Fibromyalgia muscle pain(Confirmed) 09/12/12 Active Gastritis(Confirmed) 8 06/24/16 Active Hearing test abnormal(Confirmed) 9 12/29/11 Active Hepatitis C(Confirmed) Active FPC current use of opi ate analgesic-LBP(Confirmed) 10 Active Hypercholesterolemia(Confirmed) Active Hypertension(Confirmed) Active Hysterectomy(Confirmed) Active Incontinence of urine(Confirmed) Active Iron deficiency anemia(Confirmed) Active Left ventricular hypertrophy(Confirmed) 11 Active Memory impairment(Confirmed) Active Mitral regurgitation(Confirmed) 12 05/24/17 Active Nephrolithiasis(Confirmed) 13, 14, 15 06/11/02 Active Obesity(Confirmed) Active JENNIFER (obstructive sleep apnea)(Confirmed) Active Osteopenia(Confirmed) 16, 17 11/16/12 Active *[id number]-Care Partn david [place](Confirmed) Active Peripheral venous insufficiency(Confirmed) 10/31/11 Active Positive PPD(Confirmed) 10/09/14 Active Primary hyperparathyroidism( Confirmed) 18 Active Bilateral pulmonary embolism(Confirmed) 19 12/21/15 Active Pulmonary embolism(Confirmed) Active Pulmonary hypertension(Confirmed) Active Right ventricular dilation(C onfirmed) 20 12/22/15 Active Seasonal allergic rhinitis(Confirmed) Active TR (tricuspid regurgitation)(Confirmed) 21 05/24/17 Active Tubular adenoma(Confirmed) 22, 23 04/10/04 Active Calcium oxalate crystals in urine(Confirmed) 01/22/14 Active 24/09/11 lumbar MRI Small central and superior disc extrusion at T12/L1 of doubtful clinical significance. 3 mm L4/5 spondylolisthesis without stenosis or focal nerve root compression.Minor degenerative changes. 2MRI lumbar 02/29/08 transitional sacralized L5 segment. Minimal L4/ L5 spondylolisthesis and moderate facet arthropathy with no stenosis. Minor degenerative changes elsewhere. 3left catarct surgery on 08/28/08 by SURGEON: Tana Coronado M.D. 4LE US- DVT involving 2 of 2 peroneal veins diagnosed on Dec 20 [facility] 5insulin dependent 6Per ECHO 05/24/1718 Grade I, mild diastolic dysfunction with impaired LV relaxation, which may be normal for the patient's age. 7EGD on 06/24/16 by GI, Dr Damien caballero gastritis and esophageal varices grade 1 8EGD on 06/24/16 by GI, Dr Damien caballero gastritis and esophageal varices grade 1 9left mild sensorineural hearing loss by [facility] Hearing Evaluation on 12/29/11 10Narcotic contract w Dr Florinda Trinh 11Per ECHO 05/24/17 Mild concentric left ventricular hypertrophy 12Per ECHO 05/24/17 Trace mitral regurgitation , mild TC regurgitation w no significant valve pathology PHYSICIAN: Daniel Lamb M.D. DIAGNOSIS: Right ureterolithiasis. OPERATION : Right extracorporeal shock wave lithotripsy 14Hx of laser treatment per patient unknown date 15bilateral by CT scan 16DEXA 10/26/15 AP Spine (L1-L4) -1.7 Osteopenia Femoral Neck (Left) -1.8 Osteopenia Total Hip (Left) -0.7 Normal 17DEXA 11/16/12 osteopenia AP spine -2.4 , osteopenia total hip -1.2 , osteopenia femoral neck-2.2 18Right lower parathyroidectomy. 06/16/08 SURGEON: Danny Marie M.D. BUTT WELDER: Naima Bowling M.D. 19b/l submassive PE diagnosed on Dec 20 in [facility] 20TTE 12/22/15 in [facility]: RV dilatation, RVSP 46 21Per ECHO 05/24/17 Trace mitral regurgitation , trace TC regurgitation w no significant valve pathology 22meg colo July 2009 exc for 2 hyperplastic polyps 23Colonoscopy 2004 at [facility] [place] per letter of Dr Amor Dobbins Social History Social History Type Response Smoking Status Never (less than 100 in lifetime) entered on: 04/17/19 Sex
--- OUTSIDE RECORDS SUMMARY | 2023-10-23 09:39 | XMS_ITS | Continuity of Care Document ---
Author Organization [facility] Address [address] [place] [id number]- Care Team Providers Care Continuous Drier Operator Name Role Phone Florinda Trinh MD Primary Care Physician Encounter [facility] Date(s): 08/05/22 - 09/04/22 [facility] [address] [place] [id number]- [place] Allergies, Adverse Reactions, Alerts Substance Reaction Severity Status enalapril Active penicillin RASH Active morphine itchy Active Bactrim 1 hyperkalemia Active Lidocaine, Topical Active 1Hyperkalemia when used together with lisinopril Immunizations Given and Recorded Vaccine Date Status Refusal Reason [id number] 12y+ bivalent booster vax 05/25/22 Given influenza [...] zoster vaccine, inactivated 09/15/21 Given SARS-CoV-2 mRNA ([id number]) vax 09/15/21 Given SARS-CoV-2 (COVID-19) mRNA BNT-162b2 [...] Refills, Maintenance, 05/25/22 12:08:00 EST, ER Tablet, [facility]/pharmacy #[id number], Discontinue Motrin, 158, cm, 05/25/22 11:12:00... Start Date: 05/25/22 Status: Ordered ALCOHOL 70% PREP PADS ALCOHOL 70% PREP PADS, See Instructions, # 100 Unknown, 11 Refills, USE TO CHECK BLOOD SUGAR, UP TO5 TIMES DAILY. E11.65, 160, cm, 01/28/21 13:05:00 EDT, Height, 80.6, kg, 02/24/21 19:00:00 EST, DryWeight Start Date: 02/02/21 Status: [...] Gm, 11 Refills, Maintenance, 07/21/21 12:43:00 EDT, [facility]/pharmacy #[id number], 1 applicator Topically 2 times a day, 160, cm, 07/21/21 10:22:00 EDT, Height, 80.6, kg, 06/03/20 19:00:00 EST, Dry Weight Start Date: 07/21/21 Status: Ordered Baqsimi Two Pack 3 mg nasal powder = 3 mg, Naris, Right, Once, Please use for a low blood sugar emergency, may repeat in 15 minutes, #1 each, 3 Refills, Soft Stop, 03/09/22 11:35:00 EST, [facility]/pharmacy #[id number], 160, cm, 03/09/22 10:43:00EST, Height, 78, kg, 01/14/22 19:37:00 EDT, Dry W... Start Date: 03/09/22 Status: Ordered Biotene Moisturizing Mouth oral spray See Instructions, [place] directly into mouth; spray is safe to [...] P.M. NEEDED & [facility], # 180 tablet, 1 Refills, Maintenance, 08/05/22 12:49:00 EDT, [id number], 158, cm, 07/12/22 11:54:00 EDT, Height, 76, kg, 05/07/22 6:04:00 ES... Start Date: 08/05/22 Status: Ordered capsaicin 0.025% topical cream 1 application, Topically, 3 times a day, # 35 Gm, 11 Refills, Maintenance, 07/21/21 12:26:00 EDT, Cream, [facility]/pharmacy #[id number], 1 application Topically 3 times a [...] 11 Refills, Maintenance, 12/06/21 15:04:00 EDT, Tablet, [facility], Partial fill upon patient request if the prescription is for a schedule II opioid drug., 160, cm, 11/23/21 14:47:00 ED... Start Date: 12/06/21 Status: Ordered esomeprazole 40 mg oral enteric coated capsule See Instructions, TAKE 1 CAPSULE BY MOUTH DAILY 30 MINUTES BEFORE BREAKFAST, # 30 capsule, 2 Refills, Maintenance, 08/05/22 12:49:00 EDT, [id number], 158, cm, 07/12/22 11:54:00 EDT, Height, 76, kg, 05/07/22 6:04:00 EST, Dry Weight Start Date: 08/05/22 Status: Ordered famotidine 40 mg oral tablet 1 tablet = 40 mg, By Mouth, Daily at bedtime, If 40 mg tablet is not available, can be changed to 20 mg tablet 2 tablet at bedtime, # 90 tablet, 3 Refills, Maintenance, 07/12/21 18:53:00 EDT, Tablet,[facility]/pharmacy #[id number], Discontinue 30- day supply presc... Start Date: 07/12/21 Stop Date: 07/07/22 Status: Ordered ferrous sulfate 325 mg oral tablet 1 tablet = 325 mg, By Mouth, Daily, May take with food to minimize abdominal discomfort. Do not take with milk. Take preferrably with juice., # 90 tablet, 3 Refills, Maintenance, 09/15/21 8:56:00 EDT, [facility]/pharmacy #[id number], 160, cm, 09/15/21 8:15:00 EDT,... Start [...] tablet, 0 Refills, Maintenance, 07/08/22 9:47:00 EDT, [id number], 158, cm, 06/16/22 11:27:00 EST, Height, 76, kg, 05/07/22 6:04:00 EST, Dry Weight Start Date: 07/08/22 Status: Ordered ketotifen 0.025% ophthalmic solution 1 drops, Eyes, Both, Every 12 hours, PRN as needed for eye allergy, # 7.5 mL, 11 Refills, Maintenance, 06/25/21 8:34:00 EDT, [facility]/pharmacy #[id number], 1 drops Eyes, Both Every 12 [...] 90 tablet, 3 Refills, 03/09/22 11:57:00 EST, [facility]/pharmacy #[id number], 1 tablet By Mouth Daily before dinner,PRN:allergies, 160, cm, 03/09/22 10:43:00 EST, Height, 78, kg, 01/14/22 19:37:00 ED... Start Date: 03/09/22 Status: Ordered montelukast 10 mg oral tablet 10 mg, 1, tablet, By Mouth, Daily at bedtime, # 90 tablet, Refills 3, Tot. Refills 3, Maintenance, 03/09/22 11:37:00 EST, Route to Pharmacy Electronically, [facility]/pharmacy #[id number], 160, cm, 03/09/22 10:43:00 EST, Height, 78, kg, 01/14/22 19:37:00 EDT, Dry... Start Date: 03/09/22 Stop Date: 03/04/23 Status: Ordered Norvasc 5 mg oral tablet 5 mg, 1, tablet, By Mouth, Daily, # 90 tablet, Refills 3, Tot. Refills 3, Maintenance, 03/09/22 11:54:00 EST, Route to Pharmacy Electronically, [facility]/pharmacy #[id number], 160, cm, 03/09/22 10:43:00 EST, Height, [...] 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 Start Date: 03/09/22 Status: Ordered Wjs-qow-yqsjp medical-grade oxford diabetic shoes, depth or hightop Ipl-avl-ldpqg medical-grade oxford diabetic shoes, depth or hightop, [...] 08/19/22 Stop Date: 09/16/22 Status: Ordered Pen [place], 32 G x 4 mm BD Ultra [...] tablet, 11 Refills, Maintenance, 03/09/22 11:39:00 EST, [facility]/pharmacy #[id number], 160, cm, 03/09/22 10:43:00 EST, Height, [...] the same time every day Given by Buckle Strap Puncher, Dr. Michael Berkowitz, # 60 each, 0 Refills, Maintenance, 07/21/21 11:59:00 EDT, Powder, Partial fill upon patient request if the prescription is for a schedule II opi... Start Date: 07/21/21 Status: Ordered Tresiba FlexTouch 200 units/mL subcutaneous solution See Instructions, INJECT 42 UNITS DAILY AT 9PM E11.9 90 day, # 21 mL, 3 Refills, 03/09/22 17:14:00 EST, [facility]/pharmacy #[id number], 160, cm, 03/09/22 10:43:00 EST, Height, 78, kg, 01/14/22 19:37:00 EDT, Dry Weight Start Date: 03/09/22 Status: Ordered Ventolin HFA 108 mcg/inh inhalation aerosol with adapter 2 puffs, Inhalation, 4 times a day, PRN Wheezing/Shortness of Breath, dispense when patient requestit, # 18 Gm, 5 Refills, Maintenance, 11/09/20 12:36:00 EDT, [facility]/pharmacy #[id number], 160, cm, 10/22/20 9:15:00 EDT, Height, 80.6, kg, 06/03/20 19:00:00 EST,... Start Date: 11/09/20 Status: Ordered Voltaren 1% topical gel = 2 Gm, Topically, 4 times a day, # 100 Gm, 5 Refills, Maintenance, 03/09/22 11:55:00 EST, [facility]/pharmacy #[id number], 2 Gm Topically 4 times a day,x14 days, 160, cm, 03/09/22 10:43:00 EST, Height, 78, kg, 01/14/22 19:37:00 EDT, Dry Weight Start Date: 03/09/22 Stop Date: 06/01/22 Status: Ordered [place] Reusable Bed Pad 34 x 36 [place] Reusable Bed Pad 34 x 36 , [...] Confirmed 12/29/11 Active Hepatitis C Confirmed Active medical terminologist current use of opiate analgesic-LBP 12 Confirmed [...] Osteopenia 18, 19, 20 Confirmed 11/16/12 Active *[id number] 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 06/16/08 SURGEON: Danny Marie M.D. AIR QUALITY CHEMIST: Naima Bowling M.D. 22b/l submassive PE diagnosed on Dec 20 in [facility] TTE 12/22/15 in [facility]: RV dilatation, RVSP 46 24Per ECHO 05/24/17 Trace mitral regurgitation , trace TC regurgitation w no significant valve pathology 25meg colo July 2009 exc for 2 hyperplastic polyps 26Colonoscopy 2004 at [facility] [place] per letter of Dr Amor Dobbins Social History Social History Type Response Smoking Status Never (less than 100 in lifetime) entered on: 10/22/20 Sex Patient Care team information Care Team Personnel Name: Diamond Weiss RN Position: [facility] RN Member Role: Primary Care Nurse Name: Tiara Cavazos RN Position: [facility] OB RN Member Role: Primary Care Nurse Name: Shreya Boss RN Position: [facility] RN Member Role: Primary Care Nurse Name: Jaylin Hernandez RN Position: [facility] Onco RN Member Role: Primary Care Nurse Name: Glen Cota MD Position: [facility] Renal MD Member Role: Lifetime Consulting Physician Address: Address: [address] [place] [address] [facility] [address] Name: Florinda Trinh MD Position: [facility] Physician - Primary Care Member Role: PCP Address: Address: [address] [place] [address] Care Team Related Persons Name: JOSE ELIAS TODD Address: [place] [address] Name: JOSE ELIAS KIRKLAND Address: home [address] [place] [id number] Name: LEONIE SCHRADER Address: [place] [address]
--- OUTSIDE RECORDS SUMMARY | 2023-10-23 09:39 | XMS_ITS | Continuity of Care Document ---
Author Organization [facility] Address [address] [place] [id number]- Care Team Providers Care Still Operator Gin Name Role Phone Gayathri GARZA, Florinda Primary Care Physician [place] [facility] [place] 09[place]22 [facility] [address] [place] [id number]- [place] Allergies, Adverse Reactions, Alerts Substance Reaction Severity Status enalapril Active penicillin RASH Active Bactrim 1 hyperkalemia Active Lidocaine, Topical Active morphine itchy Active 1Hyperkalemia when used together with lisinopril Immunizations Given and Recorded Vaccine Date Status Refusal Reason [id number] 12y+ bivalent booster vax 05/25/22 Given influenza [...] zoster vaccine, inactivated 09/15/21 Given SARS-CoV-2 mRNA ([id number]-czrz-uyrug) vax 09/15/21 Given SARS-CoV-2 (COVID-19) mRNA BNT-162b2 [...] Refills, Maintenance, 05/25/22 12:08:00 EST, ER Tablet, [facility]/pharmacy #[id number], Discontinue Motrin, 158, cm, [...] Gm, 11 Refills, Maintenance, 07/21/21 12:43:00 EDT, [facility]/pharmacy #1026, 1 applicator Topically 2 [...] Biotene Moisturizing Mouth oral spray See Instructions, [place] directly into mouth; spray is safe to [...] P.M. NEEDED & [facility], # 180 tablet, 1 Refills, Maintenance, 08/05/22 12:49:00 EDT, [id number], 158, cm, 07/12/22 11:54:00 EDT, Height, 76, kg, 05/07/22 6:04:00 ES... Start Date: 08/05/22 Status: Ordered capsaicin 0.025% topical cream 1 application, Topically, 3 times a day, # 35 Gm, 11 Refills, Maintenance, 07/21/21 12:26:00 EDT, Cream, [facility]/pharmacy #1026, 1 application Topically 3 [...] 11 Refills, Maintenance, 12/06/21 15:04:00 EDT, Tablet, [facility], Partial fill upon patient request if the prescription is for a schedule II opioid drug., 160, cm, 11/23/21 14:47:00 ED... Start Date: 12/06/21 Status: Ordered esomeprazole 40 mg oral enteric coated capsule See Instructions, TAKE 1 CAPSULE BY MOUTH DAILY 30 MINUTES BEFORE BREAKFAST, # 30 capsule, 2 Refills, Maintenance, 08/05/22 12:49:00 EDT, [facility] ST[facility] [id number], 158, cm, 07/12/22 11:54:00 EDT, Height, 76, kg, 05/07/22 6:04:00 EST, Dry Weight Start Date: 08/05/22 Status: Ordered famotidine 40 mg oral tablet 1 tablet = 40 mg, By Mouth, Daily at bedtime, If 40 mg tablet is not available, can be changed to 20 mg tablet 2 tablet at bedtime, # 90 tablet, 3 Refills, Maintenance, 07/12/21 18:53:00 EDT, Tablet,[facility]/pharmacy #1026, Discontinue 30- day supply presc... Start Date: 07/12/21 Stop Date: 07/07/22 Status: Ordered ferrous sulfate 325 mg oral tablet 1 tablet = 325 mg, By Mouth, Daily, May take with food to minimize abdominal discomfort. Do not take with milk. Take preferrably with juice., # 90 tablet, 3 Refills, Maintenance, 09/15/21 8:56:00 EDT, [facility]/pharmacy #1026, 160, cm, 09/15/21 8:15:00 [...] Instructions, LUCIANO GAGE TABLETA POR VIA ORAL MARYSOL NOEL, # 90 tablet, 0 Refills, Maintenance, 07/08/22 9:47:00 EDT, [facility] ST[facility] [id number], 158, cm, 06/16/22 11:27:00 EST, Height, 76, kg, 05/07/22 6:04:00 EST, Dry Weight Start Date: 07/08/22 Status: Ordered ketotifen 0.025% ophthalmic solution 1 drops, Eyes, Both, Every 12 hours, PRN as needed for eye allergy, # 7.5 mL, 11 Refills, Maintenance, 06/25/21 8:34:00 EDT, [facility]/pharmacy #1026, 1 drops Eyes, Both [...] 90 tablet, 3 Refills, 03/09/22 11:57:00 EST, [facility]/pharmacy #0838, 1 tablet By Mouth Daily before dinner,PRN:allergies, 160, cm, 03/09/22 10:43:00 EST, Height, 78, kg, 01/14/22 19:37:00 ED... Start Date: 03/09/22 Status: Ordered montelukast 10 mg oral tablet 10 mg, 1, tablet, By Mouth, Daily at bedtime, # 90 tablet, Refills 3, Tot. Refills 3, Maintenance, 03/09/22 11:37:00 EST, Route to Pharmacy Electronically, [facility]/pharmacy #0838, 160, cm, 03/09/22 10:43:00 EST, Height, 78, kg, 01/14/22 19:37:00 EDT, Dry... Start Date: 03/09/22 Stop Date: 03/04/23 Status: Ordered Norvasc 5 mg oral tablet 5 mg, 1, tablet, By Mouth, Daily, # 90 tablet, Refills 3, Tot. 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 Start Date: 03/09/22 Status: Ordered Eil-zyo-dhens medical-grade oxford diabetic shoes, depth or hightop Skh-kdb-ygbpo medical-grade oxford diabetic shoes, depth or hightop, [...] 08/19/22 Stop Date: 09/16/22 Status: Ordered Pen [place], 32 G x 4 mm BD Ultra [...] the same time every day Given by Customer Counter Associate, Dr. 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 6insulin dependent 7Per ECHO 05/24/1718 Grade [...] 1 11left mild sensorineural hearing loss by [facility] Hearing Evaluation on 12/29/11 12Narcotic contract [...] lower parathyroidectomy. 06/16/08 SURGEON: Danny Marie M.D. DATA KEYER: Naima Bowling M.D. 22b/l submassive PE diagnosed on Dec [address] [facility] 23TTE 12/22/[address] [facility]: RV dilatation, RVSP 46 24Per ECHO 05/24/17 Trace mitral regurgitation , trace TC regurgitation w no significant valve pathology meg colo July 2009 exc for 2 hyperplastic polyps 26Colonoscopy 2004 at [facility] [place] per letter of Dr Amor Dobbins Social History Social History Type Response Smoking Status Never (less than 100 in lifetime) entered on: 10/22/20 Sex Patient Care team information Care Team Personnel Name: Diamond Weiss RN Position: [facility] RN Member Role: Primary Care Nurse Name: Tiara Cavazos RN Position: [facility] OB RN Member Role: Primary Care Nurse Name: Shreya Boss RN Position: [facility] RN Member Role: Primary Care Nurse Name: Jaylin Hernandez RN Position: [facility] Onco RN Member Role: Primary Care Nurse Name: Glen Cota MD Position: [facility] Renal MD Member Role: Lifetime Consulting Physician Address: Address: [address] [place] [address] [facility] [place] [address]- Name: Florinda Trinh MD Position: [facility] Physician - Primary Care Member Role: PCP Address: Address: [address] [place] [address] Care Team Related Persons Name: JOSE ELIAS TODD Address: [place] [address] Name: JOSE ELIAS KIRKLAND Address: home [address] [place] [id number] Name: LEONIE SCHRADER Address: [place] [address]
--- OUTSIDE RECORDS SUMMARY | 2023-10-23 09:39 | XMS_ITS | Continuity of Care Document ---
Author Organization [facility] Address Unknown Care Team Providers Care Salt Machine Operator Name Role Phone Gayathri GARZA, Florinda Primary Care Physician Encounter [facility] [place] Date(s): 06/07/21 - 07/07/21 [facility] Allergies, Adverse Reactions, Alerts Substance [...] by melissa chiu 6Admin Note: ADMINISTERED BY R.Lucille 7Result Comment: Masood RUVALCABA RN 8Result Comment: Given by Leonie Garcia RN 9Result Comment: [05/13/2014] Ordered by Knedall 10Result Comment: [05/13/2014] Ordered by Kendall 11Result Comment: [10/16/2012] ORDERED BY 12Admin Note: VIS 01/13/09 GIVEN 13Admin Note: ADMINISTERED BY RN 14Admin Note: VIS 02/26/08 GIVEN Medications acetaminophen 500 mg oral tablet 2 tablet = 1,000 mg, By Mouth, Every 6 hours, PRN as needed for pain or fever, (not to exceed 2000 mg/day) indian, # 100 tablet, 11 Refills, Maintenance, 04/28/21 13:24:00 EST, [facility]/pharmacy #1026, 160, cm, 04/28/21 9:50:00 [...] Gm, 11 Refills, Maintenance, 01/27/20 19:13:00 EDT, [facility]/pharmacy #1026, 1 applicator Topically 2 times a day, 167, cm, 01/13/20 8:54:00 EDT, Height, 78.8, kg, 01/01/20 3:41:00 EDT, Dry Weight Start Date: 01/27/20 Status: Ordered Baqsimi Two Pack 3 mg nasal powder = 3 mg, Naris, Right, Once, Please use for a low blood sugar emergency, may repeat in 15 minutes, #2 each, 3 Refills, Soft Stop, 06/26/20 7:30:00 EDT, [facility]/pharmacy #1026, Partial fill upon patient [...] 11 Refills, Maintenance, 02/10/20 11:22:00 EST, Cream, [facility]/pharmacy #1026, 1 application Topically 3 [...] 11 Refills, Maintenance, 04/21/21 18:12:00 EST, Tablet, [facility]/pharmacy #1026, 160, cm, 03/03/21 11:23:00 EST, Height, 80.6, kg, 06/03/20 19:00:00 EST, Dry Weight Start Date: 04/21/21 Status: Ordered escitalopram 20 mg oral tablet 1 tablet = 20 mg, By Mouth, Daily, Discontinue duloxetine 60 mg, # 30 tablet, 11 Refills, Maintenance, 12/09/20 11:15:00 EDT, Tablet, [facility]/pharmacy #1026, Partial fill upon patient [...] tablet, 3 Refills, Maintenance, 06/30/20 14:55:00 EDT, Tablet,[facility]10[facility], Discontinue 30- day supply [...] 04/28/21 14:34:00 EST, Route to Pharmacy Electronically, [facility]/pharmacy #1026, Can use with HCTZ, [...] capsule, 3 Refills, Maintenance, 10/22/20 10:35:00 EDT, [facility]/pharmacy #1026, 160, cm, 10/22/20 9:15:00 EDT, Height, 80.6, kg, 06/03/20 19:00:00 EST, Dry Weight Start Date: 10/22/20 Stop Date: 10/17/21 Status: Ordered ketotifen 0.025% ophthalmic solution 1 drops, Eyes, Both, Every 12 hours, PRN as needed for eye allergy, # 7.5 mL, 11 Refills, Maintenance, 06/25/21 8:34:00 EDT, [facility]/pharmacy #1026, 1 drops Eyes, Both [...] 78.8, kg,... Start Date: 01/21/20 Status: Ordered Fkx-fxl-dgdzz medical-grade oxford diabetic shoes, depth or hightop Zci-rxi-wouwm medical-grade oxford diabetic shoes, depth or hightop, [...] 07/12/21 Stop Date: 08/09/21 Status: Ordered Pen Newcomb, 32 G x 4 mm BD Ultra [...] 04/28/21 14:02:00 EST, Route to Pharmacy Electronically, [facility]/pharmacy #1023, 160... Start Date: 04/28/21 Stop Date: 04/23/22 [...] 527 Gm,11 Refills, Maintenance, 01/27/20 19:13:00 EDT, [facility]/pharmacy #1026, 17- 34 Gm By [...] 11 Refills, Maintenance, 04/28/21 14:03:00 EST, Tablet, [facility]/pharmacy #1026, 160, cm, 04/28/21 9:50:00 EST, Height, 80.6, kg, 06/03/20 19:00:00 EST, Dry Weight Start Date: 04/28/21 Status: Ordered Senna-Time 8.6 mg oral tablet 2 tablet, By Mouth, 2 times a day, PRN NEEDED FOR CONSTIPATION,INSTR, DISCONTINUE DOCUSATE, # 60tablet, 11 Refills, [facility] STORE [id number], 160, cm, 03/03/21 11:23:00 EST, Height, 80.6, [...] 02/22/21 17:50:00 EST, Route to Pharmacy Electronically, [facility]/pharmacy #1026, 1... Start Date: 02/22/21 [...] 02/15/21 11:39:00 EST, Route to Pharmacy Electronically, [facility]/pharmacy #1026,Partial fill upon patient request if the prescrip... Start Date: 02/15/21 Stop Date: 03/29/21 Status: Ordered Trelegy Ellipta inhalation powder 1 puffs, Inhalation, Daily, at the same time every day given by team member , Dr Berkowitz, # 60 each, 0 Refills, Maintenance, 11/20/19 13:03:00 EDT, Powder Start Date: 11/20/19 Status: Ordered Tresiba FlexTouch 200 units/mL subcutaneous solution See Instructions, INJECT 86 UNITS DAILY AT 9PM, # 45 Unknown, 6 Refills, [facility] STORE [id number], 160, cm, 06/21/21 9:57:00 EDT, Height, 80.6, kg, 06/03/20 19:00:00 EST, Dry Weight Start Date: 06/22/21 Status: Ordered Ventolin HFA 108 mcg/inh inhalation aerosol with adapter 2 puffs, Inhalation, 4 times a day, PRN Wheezing/Shortness of Breath, dispense when patient requestit, # 18 Gm, 5 Refills, Maintenance, 11/09/20 12:36:00 EDT, [facility]/pharmacy #1026, 160, cm, 10/22/20 9:15:00 EDT, [...] Date: 02/15/21 Stop Date: 05/10/21 Status: Ordered [place] Reusable Bed Pad 34 x 36 [place] Reusable Bed Pad 34 x 36 , [...] abnormal(Confirmed) 11 12/29/11 Active Hepatitis C(Confirmed) 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 06/16/08 SURGEON: Danny Marie M.D. DESIGN TEACHER: Naima Bowling M.D. 21b/l submassive PE diagnosed on Dec 20 in [facility] TTE 12/22/15 in [facility]: RV dilatation, RVSP 46 23Per ECHO 05/24/17 Trace mitral regurgitation , trace TC regurgitation w no significant valve pathology 24meg colo July 2009 exc for 2 hyperplastic polyps 25Colonoscopy 2004 at [facility] [place] per letter of Dr Amor Dobbins Social History Social History Type Response Smoking Status Never (less than 100 in lifetime) entered on: 10/22/20 Sex
--- OUTSIDE RECORDS SUMMARY | 2023-10-23 09:39 | XMS_ITS | Continuity of Care Document ---
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 Start Date: 07/16/20 Status: Ordered ammonium lactate 12% topical cream 1 applicator, Topically, 2 times a day, # 280 Gm, 11 Refills, Maintenance, 01/27/20 19:13:00 EDT, [facility]/pharmacy #1026, 1 applicator Topically 2 times a day, 167, cm, 01/13/20 8:54:00 EDT, Height, 78.8, kg, 01/01/20 3:41:00 EDT, Dry Weight Start Date: 01/27/20 Status: Ordered Baqsimi Two Pack 3 mg nasal powder = 3 mg, Naris, Right, Once, Please use for a low blood sugar emergency, may repeat in 15 minutes, #2 each, 3 Refills, Soft Stop, 06/26/20 7:30:00 EDT, [facility]/pharmacy #1026, Partial fill upon patient request if the prescription is for a schedule II op... Start Date: 06/26/20 Status: Ordered calcium (as citrate)-vitamin D 315 mg-250 intl units oral tablet 2 tablet, By Mouth, 2 times a day, for 30 days, calcium citrate, # 120 tablet, 11 Refills, Hard Stop 01/21/21 19:13:00 EDT, 01/27/20 19:13:00 EDT, Tablet, [facility]/pharmacy #1026, 167, cm, 01/13/20 8:54:00 EDT, Height, 78.8, kg, 01/01/20 3:41:00 EDT, Dry... Start Date: 01/27/20 Stop Date: 01/21/21 Status: Ordered capsaicin 0.025% topical cream 1 application, Topically, 3 times a day, # 90 Gm, 11 Refills, Maintenance, 02/10/20 11:22:00 EST, Cream, [facility]/pharmacy #1026, 1 application Topically 3 [...] Maintenance, 01/27/20 19:13:00 EDT, EC Capsule, [facility]/pharmacy #1026, 167, cm, 01/13/20 8:54:00 EDT, Height, 78.8, kg, 01/01/20 3:41:00 EDT, Dry Weight Start Date: 01/27/20 Status: Ordered Eliquis 5 mg oral tablet 1 tablet = 5 mg, By Mouth, 2 times a day, # 60 tablet, 11 Refills, Maintenance, 02/10/20 11:22:00 EST, Tablet, [facility]/pharmacy #1026, 167, cm, 01/13/20 8:54:00 EDT, Height, [...] 2 Refills, Maintenance, 01/22/20 9:38:00 EDT, [facility]/pharmacy #1026, 167, cm, 01/13/20 8:54:00 EDT,... Start [...] Dry Weight Start Date: 01/22/20 Status: Ordered ketotifen 0.025% ophthalmic solution 1 drops, Eyes, Both, Every 12 hours, PRN as needed for eye allergy, # 7.5 mL, 11 Refills, Maintenance, 01/27/20 19:13:00 EDT, [facility]/pharmacy #1026, 1 drops Eyes, Both [...] 06/24/20 9:08:00 EDT, Route to Pharmacy Electronically, [facility]/pharmacy #1026, 160, cm, 06/12/20 9:01:00 EST, Height, 80... 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 Start Date: 01/21/20 Status: Ordered Pbo-qdj-hytbj medical-grade oxford diabetic shoes, depth or hightop Qhi-fhj-lyiyo medical-grade oxford diabetic shoes, depth or hightop, [...] 07/10/20 10:25:00 EDT, Route toPharmacy Electronically, [facility]/pharmacy #1026, Parti... Start Date: 07/10/20 Stop Date: 08/07/20 Status: Ordered oxyCODONE 5 mg oral tablet 5 mg, 1, tablet, By Mouth, Every 4 hours, for 28 days, PRN pain dispense not earlier than 08/07/20, # 168 tablet, Refills 0, Tot. Refills 0, Acute 09/04/20 10:25:00 EDT, 08/07/20 10:25:00 EDT, Route to Pharmacy Electronically, [facility]/pharmacy #1026, Part... Start Date: 08/07/20 Stop Date: 09/04/20 Status: Ordered oxyCODONE 5 mg oral tablet 5 mg, 1, tablet, By Mouth, Every 4 hours, for 28 days, PRN pain dispense not earlier than09/04/20, #168 tablet, Refills 0, Tot. Refills 0, Acute 10/02/20 10:25:00 EDT, 09/04/20 10:25:00 EDT, Route toPharmacy Electronically, [facility]/pharmacy #1026, Parti... Start Date: 09/04/20 Stop Date: 10/02/20 Status: Ordered oxyCODONE 5 mg oral tablet 5 mg, 1, tablet, By Mouth, Every 4 hours, for 28 days, PRN pain dispense not earlier than 10/02/20, # 168 tablet, Refills 0, Tot. Refills 0, Acute 10/30/20 10:25:00 EDT, 10/02/20 10:25:00 EDT, Route to Pharmacy Electronically, [facility]/pharmacy #1026, Part... Start Date: 10/02/20 Stop Date: 10/30/20 Status: Ordered Pen Raymond, 32 G x 4 mm BD Ultra [...] Gm,11 Refills, Maintenance, 01/27/20 19:13:00 EDT, [facility]/pharmacy #1026, 17- 34 Gm By [...] 11:22:00 EST, Route to Pharmacy Electronically, [facility]/pharmacy #1026 Tablet, 167, cm, 01/13/20 8:5... Start [...] 9:28:00 EST, Route to Pharmacy Electronically, [facility]/pharmacy #1026, 167,... Start Date: 05/01/20 Status: Ordered TENS electrode pads TENS electrode pads, See Instructions, # 1 box, Refills 5, Tot. Refills 5, Maintenance, use as directed for back pain Dx LBP M54.9 1 box of 4, 12/06/16 14:59:01, Compound Start Date: 12/06/16 Status: Ordered Trelegy Ellipta inhalation powder 1 puffs, Inhalation, Daily, at the same time every day given by litigation legal secretary , Dr Berkowitz, # 60 each, 0 [...] Gm, 5 Refills, Maintenance, 06/12/20 8:41:00 EST, [facility]/pharmacy #1026, 160, cm, 06/04/20 11:29:00 EST, Height, [...] Gm, 5 Refills, Maintenance, 06/12/20 8:44:00 EST, [facility]/pharmacy #1026, 2 Gm Topically 4 times a day,x14 days, 160, cm, 06/04/20 11:29:00 EST, Height, 80.6, kg, 06/03/20 19:00:00 EST, Dry Weight Start Date: 06/12/20 Stop Date: 09/04/20 Status: Ordered [place] Reusable Bed Pad 34 x 36 [place] Reusable Bed Pad 34 x 36 , [...] 12/29/11 Active Hepatitis C(Confirmed) Active 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 06/16/08 SURGEON: Danny Marie M.D. MACHINE PULLER AND LASTER: Naima Bowling M.D. 21b/l submassive PE diagnosed on Dec 20 in [facility] 22TTE 12/22/15 in [facility]: RV dilatation, RVSP 46 23Per ECHO 05/24/17 Trace mitral regurgitation , trace TC regurgitation w no significant valve pathology 24meg colo July 2009 exc for 2 hyperplastic polyps 25Colonoscopy 2004 at [facility] [place] per letter of Dr Amor Dobbins Social History Social History Type Response Smoking Status Never (less than 100 in lifetime) entered on: 06/12/20 Sex
--- OUTSIDE RECORDS SUMMARY | 2023-10-23 09:39 | XMS_ITS | Continuity of Care Document ---
Author Organization [facility] Address [address] [place] [address]- Care Team Providers Care Hr Operations Advisor Name Role Phone Florinda Trinh MD Primary Care Physician Encounter [facility] Date(s): 05/15/19 - 08/19/[address] [address]- [facility] Discharge Disposition: A-D/C Home Attending Physician: Florinda Trinh MD Admitting Physician: Florinda Trinh MD Referring Physician: Florinda Trinh MD Allergies, [...] by denny chiu 6Admin Note: ADMINISTERED BY R.NLizbet 7Result Comment: [05/13/2014] Ordered by Kendall 8Result Comment: [05/13/2014] Ordered by Kendall 9Result Comment: [10/16/2012] ORDERED BY 10Admin Note: VIS 01/13/09 GIVEN 11Admin Note: ADMINISTERED BY RN 12Admin Note: VIS 02/26/08 GIVEN Medications acetaminophen 500 mg oral tablet 2 tablet = 1,000 mg, By Mouth, Every 6 hours, PRN as needed for pain or fever, (not to exceed 2000 mg/day) kosovan, # 100 tablet, 11 Refills, Maintenance, 01/16/19 [...] day, # 90 Gm, 11 Refills, Maintenance, 09/19/18 15:12:29 EDT, Cream, 1 application Topically 3 times a day Start Date: 09/19/18 Status: Ordered carbamide peroxide 6.5% otic solution 5 -10 drops, Ear, Left, 2 times a day, can use in right ear if it is needed, # 15 mL, 1 Refills, Maintenance, 07/19/19 14:55:00 EDT, [facility], Drops should remain in ear for several minutes. Remove excess wax by flushing wit... Start Date: 07/19/19 Stop Date: 07/27/19 Status: Ordered ciclopirox 0.77% topical lotion 1 application, Topically, Daily at bedtime, Use daily on affected nail. On day #7 clean withh alcohol and start cycle again., # 30 mL, 11 Refills, Maintenance, 09/19/18 9:30:14 EDT, Lotion, 1 application Topically Daily at bedtime,Instr:Use d... Start Date: 09/19/18 Status: Ordered Compression- Lower Extremity (Knee High) [...] Refills, Maintenance, 03/27/19 9:10:00 EST, EC Capsule, [facility], 159, cm, 03/20/19 14:59:00 EST, Height, 88.3, kg, 12/13/18 10:17:00 EDT, Dry Weight Start Date: 03/27/19 Status: Ordered docusate sodium 100 mg oral tablet 1 tablet = 100 mg, By Mouth, 2 times a day, # 60 tablet, 11 Refills, Maintenance, 05/20/19 12:31:00EST, [facility], 159, cm, 05/20/19 12:19:00 EST, Height, 88.1, kg, 04/25/19 16:02:00 EST, Dry Weight Start Date: 05/20/19 Status: Ordered Eliquis 5 mg oral tablet 1 tablet = 5 mg, By Mouth, 2 times a day, # 60 tablet, 11 Refills, Maintenance, 07/22/19 8:58:00 EDT, Tablet, [facility], 159, cm, 05/20/19 12:19:00 EST, Height, 88.1, kg, 04/25/19 16:02:00 EST, Dry Weight Start Date: 07/22/19 Status: Ordered enalapril 10 mg oral tablet 10 mg, 1, tablet, By Mouth, Daily, 90 days, # 90 tablet, Refills 3, Tot. Refills 3, Maintenance, 09/19/18 15:15:30 EDT, Route to Pharmacy Electronically, [id number], [facility] Start Date: 09/19/18 Status: Ordered famotidine 40 mg oral tablet 1 tablet = 40 mg, By Mouth, Daily at bedtime, If 40 mg tablet is not available, can change to 20 mgtablet 2 tablet at bedtime, # 30 tablet, 5 Refills, Maintenance, 04/17/19 9:17:00 EST, Tablet, [facility] [place], 159, cm, 04/17/19 8:24:0... Start Date: 04/17/19 Status: Ordered flunisolide 25 mcg/inh nasal spray 2 puffs, Nasal, 2 times a day, Keep your head down while using dispense when patient request it, # 1 each, 11 Refills, Maintenance, 07/10/19 17:15:00 EDT, [facility]/pharmacy #[id number], discontinue nasacort, 2 puffs Nasal 2 [...] capsule, 11 Refills, Maintenance, 06/30/19 9:25:00 EDT, [facility]/pharmacy #[id number], 159, cm, 05/20/19 12:19:00 EST, Height, [...] 01/16/19 8:53:23 EDT, Route to Pharmacy Electronically, [id number], [facility] [place]... Start Date: 01/16/19 Status: Ordered Lyrica 75 mg oral capsule 1 capsule = 75 mg, By Mouth, 2 times a day, decrease dose Discontinue Lyrica 100 mg, # 60 capsule, 5 Refills, Maintenance, 08/02/19 8:24:00 EDT, Capsule, [facility], 159, cm, 05/20/19 12:19:00 EST, Height, 88.1, kg, 04/25/19 16:02... Start Date: 08/02/19 Status: Ordered Maalox Total Stomach Relief 525 mg/15 mL oral suspension 30 mL = 1,050 mg, By Mouth, 4 times a day, PRN for dyspepsia, Discontinue sucralfate, # 120 mL, 11 Refills, Maintenance, 01/16/19 8:50:42 EDT, Suspension Start Date: 01/16/19 Status: Ordered magnesium citrate 8.85% oral liquid 150 mL = 8.725 Gm, By Mouth, Once, # 300 mL, 0 Refills, Soft Stop, 06/05/18 13:22:39 EST, Liquid, 150 mL By Mouth Once Start Date: 06/05/18 Status: Ordered NovoLOG FlexPen 100 units/mL subcutaneous solution See Instructions, Inject 15-50 units per sliding scale 3 times a day before meals., # 50 mL, 11 Refills, Maintenance, 07/10/19 17:15:00 EDT, [facility]/pharmacy #[id number], DxE11.65, 159, cm, 05/20/19 12:19:00 EST, Height, 88.1, kg, 04/25/19 16:02:00 EST, Dry Weight Start Date: 07/10/19 Status: Ordered Pjr-rze-etytn medical-grade oxford diabetic shoes, depth or hightop Ods-epg-cctnf medical-grade oxford diabetic shoes, depth or hightop, [...] for 28 days, dispense not earlier than 08/02/19, # 137 tablet, Refills 0, Tot. Refills 0, Acute 08/30/19 12:47:00 EDT, 08/02/19 12:47:00 EDT, Route to Pharmacy Electronically, [facility], [place]... Start Date: 08/02/19 Stop Date: 08/30/19 Status: Ordered oxyCODONE 5 mg oral tablet 5 mg, 1, tablet, By Mouth, Every 4 hours, for 28 days, dispense not earlier than 08/30/19, # 137 tablet, Refills 0, Tot. Refills 0, Acute 09/27/19 12:47:00 EDT, 08/30/19 12:47:00 EDT, Route to Pharmacy Electronically, [facility], [place]... Start Date: 08/30/19 Stop Date: 09/27/19 Status: Ordered oxyCODONE 5 mg oral tablet 5 mg, 1, tablet, By Mouth, Every 4 hours, for 28 days, dispense not earlier than 09/27/19, # 137 tablet, Refills 0, Tot. Refills 0, Acute 10/25/19 12:47:00 EDT, 09/27/19 12:47:00 EDT, Route to Pharmacy Electronically, [facility], [place]... Start Date: 09/27/19 Stop Date: 10/25/19 Status: Ordered Pen Rudyard, 32 G x 4 mm BD Ultra [...] tablet 17.2 mg, 2, tablet, By Mouth, Daily at bedtime, PRN, # 60 tablet, Refills 11, Tot. Refills 11, Maintenance, for constipation, 05/20/19 12:31:00 EST, Route to Pharmacy Electronically, [facility] Tablet, 159, cm, 05/20/19 12:19:00 ES... Start Date: 05/20/19 Status: Ordered Shoes insert, molded to foot [...] Tot. Refills 5, Maintenance, 05/22/19 20:38:00 EST, [facility] Electronically, [facility] [place] Start Date: 05/22/19 Status: Ordered TENS electrode pads TENS electrode pads, See Instructions, # 1 box, Refills 5, Tot. Refills 5, Maintenance, use as directed for back pain Dx LBP M54.9 1 box of 4, 12/06/16 14:59:01, Compound Start Date: 12/06/16 Status: Ordered Tresiba FlexTouch 200 units/mL subcutaneous solution See Instructions, Take 90 units daily. E11.65, # 18 mL, 2 Refills, Maintenance, 07/10/19 15:26:00 EDT, [facility]/pharmacy #[id number], 159, cm, 05/20/19 12:19:00 EST, Height, 88.1, kg, 04/25/19 16:02:00 EST, DryWeight Start Date: 07/10/19 Status: Ordered Ventolin HFA 108 mcg/inh inhalation aerosol with adapter 2 puffs, Inhalation, 4 times a day, PRN Wheezing/Shortness of Breath, dispense when patient requestit, # 18 Gm, 5 Refills, Maintenance, 07/10/19 17:15:00 EDT, [facility]/pharmacy #[id number], 159, cm, 05/20/19 12:19:00 EST, Height, 88.1, kg, 04/25/19 16:02:00 EST... Start Date: 07/10/19 Status: Ordered Vitamin D3 1000 intl units oral tablet 1 tablet = 1,000 International_Units, By Mouth, Daily, # 90 tablet, 3 Refills, Maintenance, 09/19/18 15:13:28 EDT Start Date: 09/19/18 Status: Ordered [place] Reusable Bed Pad 34 x 36 [place] Reusable Bed Pad 34 x 36 , See Instructions, # 1 each, Refills 11, Tot. 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(Confirmed) 10 Active Hypercholesterolemia(Confirmed) Active Hypertension(Confirmed) Active Hysterectomy(Confirmed) Active Incontinence of urine(Confirmed) Active Iron deficiency anemia(Confirmed) Active Left ventricular hypertrophy(Confirmed) 11 Active Memory impairment(Confirmed) Active Mitral regurgitation(Confirmed) 12 05/24/17 Active Nephrolithiasis(Confirmed) 13, 14, 15 06/11/02 Active Obesity(Confirmed) Active JENNIFER (obstructive sleep apnea)(Confirmed) Active Osteopenia(Confirmed) 16, 17 11/16/12 Active *[id number]-[facility] Partn david [place](Confirmed) Active 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 5insulin dependent 6Per ECHO 05/24/1718 Grade I, mild diastolic dysfunction with impaired LV relaxation, which may be normal for the patient's age. 7EGD on 06/24/16 by GI, Dr Damien caballero gastritis and esophageal varices grade 1 8EGD on 06/24/16 by GI, Dr Damien caballero gastritis and esophageal varices grade 1 9left mild sensorineural hearing loss by [facility] Hearing Evaluation on 12/29/11 10Narcotic contract w [...] lower parathyroidectomy. 06/16/08 SURGEON: Danny Marie M.D. ZIGZAG TUNNEL ELASTIC OPERATOR: Naima Bowling M.D. 19b/l submassive PE diagnosed on Dec [address] [facility] TTE 12/22/[address] [facility]: RV dilatation, RVSP 46 21Per ECHO 05/24/17 Trace mitral regurgitation , trace TC regurgitation w no significant valve pathology meg colo July 2009 exc for 2 hyperplastic polyps 23Colonoscopy 2004 at [facility] [place] per letter of Dr Amor Dobbins Social History Social History Type Response Smoking Status Never (less than 100 in lifetime) entered on: 04/17/19 Sex
--- OUTSIDE RECORDS SUMMARY | 2023-10-23 09:39 | XMS_ITS | Continuity of Care Document ---
Author Organization [facility] Address [address], [facility] [address] [place] [address]- Care Team Providers Care Supervisor Tellers Name Role Phone Massimo Figueroa Primary Care Physician [phone] Encounter 09/26/23 - 10/03/23 [facility] [address], [address] [place] [address]- Attending Physician: Mckenna Mccullough Admitting Physician: Mckenna Mccullough Referring Physician: Gail Rush Referring Physician: Mckenna Mccullough Allergies, Adverse Reactions, Alerts Substance Reaction Severity [...] virus vaccine, inactivated 6 05/06/04 Gi zeny [id number] 12y+ bivalent booster vax 05/25/22 Given zoster vaccine, inactivated 12/08/21 Given zoster vaccine, inactivated 09/15/21 Given SARS-CoV-2 mRNA ([id number]) vax 09/15/21 Given SARS-CoV-2 (COVID-19) mRNA BNT-162b2 [...] Maintenance, 05/25/22 12:08:00 EST, ER Tablet, [facility]/pharmacy #0838, Discontinue Motrin, 158, cm, 05/25/22 [...] Refills, Maintenance, 07/21/21 12:43:00 EDT, [facility]/pharmacy #1026, 1 applicator Topically 2 [...] Biotene Moisturizing Mouth oral spray See Instructions, Bend directly into mouth; spray is safe to [...] P.M. NEEDED & 1 TAB AT [facility], # 180 tablet, 1 Refills, Maintenance, 08/05/22 12:49:00 EDT, [id number], 158, cm, 07/12/22 11:54:00 EDT, Height, 76, kg, 05/07/22 6:04:00 ES... Start Date: 08/05/22 Status: Ordered capsaicin 0.025% topical cream 1 application, Topically, 3 times a day, # 35 Gm, 11 Refills, Maintenance, 07/21/21 12:26:00 EDT, Cream, [facility]/pharmacy #1026, 1 application Topically 3 [...] 11 Refills, Maintenance, 12/06/21 15:04:00 EDT, Tablet, [facility], Partial fill upon patient [...] Refills, Maintenance, 07/12/21 18:53:00 EDT, Tablet,[facility]/pharmacy #1026, Discontinue 30- day supply [...] Refills, Maintenance, 07/08/22 9:47:00 EDT, [id number], 158, cm, 06/16/22 11:27:00 EST, Height, 76, kg, 05/07/22 6:04:00 EST, Dry Weight Start Date: 07/08/22 Status: Ordered ketotifen 0.025% ophthalmic solution 1 drops, Eyes, Both, Every 12 hours, PRN as needed for eye allergy, # 7.5 mL, 11 Refills, Maintenance, 06/25/21 8:34:00 EDT, [facility]/pharmacy #1026, 1 drops Eyes, Both Every [...] tablet, 0 Refills, Maintenance, 04/18/23 1:50:00 EST, [facility]/pharmacy #0838, 90, TAKE 1 TABLET BY [...] Replace Required Details, Route to Pharmacy Electronically, [facility]/pharmacy #0838, 160, cm, 03/23/23 1... Start [...] EST, Route to Pharmacy Electronically, [facility]/pharmacy #0838, 160, cm, 03/09/22 10:43:00 [...] # 15... Start Date: 11/24/22 Status: Ordered Esw-mje-khvfr medical-grade oxford diabetic shoes, depth or hightop Xgi-ytv-ineay medical-grade oxford diabetic shoes, depth or hightop, [...] DOLOR Start Date: 11/24/22 Status: Ordered Pen [place], 32 G x 4 mm BD Ultra [...] 527 Gm,11 Refills, Maintenance, 03/09/22 11:39:00 EST, [facility]/pharmacy #0838, 17- 34 Gm By [...] tablet, 11 Refills, Maintenance, 03/09/22 11:39:00 EST, [facility]/pharmacy #0838, 160, cm, 03/09/22 10:43:00 [...] 4 Refills, Maintenance, 05/09/23 10:10:00 EST, Tablet, [facility]/pharmacy #0838, Partial fill upon patient [...] 15 mL, 3 Refills, Maintenance, 02/24/2312:11:00 EST, [facility]/pharmacy #0838, Partial fill upon patient [...] Gm, 5 Refills, Maintenance, 03/09/22 11:55:00 EST, [facility]/pharmacy #0838, 2 Gm Topically 4 times a day,x14 days, 160, cm, 03/09/22 10:43:00 EST, Height, 78, kg, 01/14/22 19:37:00 EDT, Dry Weight Start Date: 03/09/22 Stop Date: 06/01/22 Status: Ordered [place] Reusable Bed Pad 34 x 36 [place] Reusable Bed Pad 34 x 36 , [...] Confirmed 12/29/11 Active Hepatitis C Confirmed Active 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 06/16/08 SURGEON: Danny Marie M.D. HANDBAG PARTS CUTTER: Naima Bowling M.D. 22b/l submassive PE diagnosed on Dec 20 in [facility] 23TTE 12/22/15 in [facility]: RV dilatation, RVSP 46 24Per ECHO 05/24/17 Trace mitral regurgitation , trace TC regurgitation w no significant valve pathology 25meg colo July 2009 exc for 2 hyperplastic polyps 26Colonoscopy 2004 at [facility] [place] per letter of Dr Amor Dobbins Results Radiology Reports * Exam Date Time Procedure Performing Provider Status 09/25/23 10:30 AM US Retroperitoneum Comp Darius Clark; Modified Notes: (US Retroperitoneum Comp) Reason For Exam: calculus of kidney RESULT: US Retroperitoneum Comp US Retroperitoneum Comp Reason: calculus of kidney COMPARISON: 11/15/2021. FINDINGS: Limited exam due to the patient's body habitus. Right kidney: 10.0 cm in length. No hydronephrosis. Normal parenchymal thickness and echotexture. There are 2 nonobstructing calculi in the lower pole ranging in size from 2 to 3 mm. No suspicious mass. Left kidney: 9.5 cm in length. No hydronephrosis. Normal parenchymal thickness and echotexture. 4 mm nonobstructing renal calculus in the lower pole. No suspicious mass. Urinary bladder: Normal morphology. No stone, mass, wall thickening or debris. The urinary bladder volume measures 231 cc. Bilateral ureteral urine jets are not seen in the urinary bladder.. IMPRESSION: 3 bilateral nonobstructing renal calculi ranging in size from 2 to 4 mm. There is no evidence of obstructive uropathy. WSN: [id number] Ordering Physician: Mckenna Hwang Dictated By: Erin Estevez MD Dictated Date/Time: 09/26/23 11:02 a Reviewed By: Erin Estevez MD Signed By: Erin Estevez MD Signed Date/Time: 09/26/23 11:02 am Transcribed By: AUGUSTINE Transcribed Date/Time: 09/26/23 11:00 am Social History Social History Type Response Smoking Status Never (less than 100 in lifetime) entered on: 10/22/20 Sex Patient Care team information Care Team Personnel Name: Massimo Figueroa Position: [facility] Outreach Member Role: PCP Address: Address: [address] [place] [address]- Name: Oneil Ye RN Position: [facility] Outreach Member Role: Primary Care Nurse Name: Diamond Weiss RN Position: [facility] RN Member Role: Primary Care Nurse Name: Tiara Cavazos RN Position: [facility] OB RN Member Role: Primary Care Nurse Name: Shreya Boss RN Position: [facility] RN Member Role: Primary Care Nurse Name: Dhruv Khan RN Position: [facility] RN Member Role: Primary Care Nurse Name: Virginia Benson RN Position: [facility] AMB Nurse Member Role: Primary Care Nurse Name: Glen Cota MD Position: [facility] Renal MD Member Role: Lifetime Consulting Physician Address: Address: [address] [place] [address] [facility] [place] [address]- Name: Carole Toro LPN Position: [facility] RN Member Role: Primary Care Nurse Care Team Related Persons Name: JOSE ELIAS TODD Address: [place] [address] Name: KIRKLAND, JOSE ELIAS Address: home [address] [place] [id number] Name: LEONIE SCHRADER Address: [place] [address]
--- OUTSIDE RECORDS SUMMARY | 2023-10-23 09:39 | XMS_ITS | Continuity of Care Document ---
Author Organization [facility] Address [address] [place] [address]- Care Team Providers Care Broke Handler Name Role Phone Gayathri GARZA, Florinda Primary Care Physician Encounter [facility] Date(s): 11/29/19 - 12/29/19 [facility] Afshan [address] [place] [address]- [facility] Allergies, Adverse Reactions, Alerts Substance Reaction Severity [...] or fever, (not to exceed 2000 mg/day) estonian, # 100 tablet, 11 Refills, Maintenance, 01/16/19 [...] 11 Refills, Maintenance, 06/30/19 9:28:00 EDT, Powder, [facility]/pharmacy #[id number], 159, cm, 05/20/19 12:19:00 EST, Height, 88.1, kg, 04/25/19 16:02:00 EST, DryWeight Start Date: 06/30/19 Status: Ordered Bactrim DS 800 mg-160 mg oral tablet 1 tablet, By Mouth, Every 12 hours, for 3 days, # 6 tablet, 0 Refills, Acute 12/30/19 23:03:00 EDT,12/27/19 23:03:00 EDT, Tablet, [facility], 1 tablet By Mouth Every 12 hours,x3 days, 159, cm, 12/25/19 12:50:00 EDT, Height, 88.1,... Start Date: 12/27/19 Stop Date: 12/30/19 Status: Ordered Bactrim DS 800 mg-160 mg oral tablet 1 tablet, By Mouth, 2 times a day, for 3 days, # 6 tablet, 0 Refills, Acute 12/31/19 9:27:00 EDT, 12/28/19 9:27:00 EDT, Tablet, [facility]/pharmacy #[id number], 1 tablet By Mouth 2 times a day,x3 days, 159, cm, 12/25/19 12:50:00 EDT, Height, 88.1, kg, 04/25/19 16:... Start Date: 12/28/19 Stop Date: 12/31/19 Status: Ordered budesonide 0.5 mg/2 mL inhalation suspension 0.5 mg, 2, mL, Neb, Daily, given by fulfillment associate , Dr Berkowitz, # 120 mL, Refills [...] 11 Refills, Maintenance, 09/25/19 11:21:00 EDT, Cream, [facility], 1 application Topically 3 times a day, 159, cm, 05/20/19 12:19:00 EST, Height, 88.1, kg, 04/25/19 16:02:00 ESTDr... Start Date: 09/25/19 Status: Ordered Compression- Lower [...] Refills, Maintenance, 03/27/19 9:10:00 EST, EC Capsule, [facility], 159, cm, 03/20/19 14:59:00 EST, Height, 88.3, kg, 12/13/18 10:17:00 EDT, Dry Weight Start Date: 03/27/19 Status: Ordered docusate sodium 100 mg oral tablet 2 tablet = 200 mg, By Mouth, 2 times a day, # 120 tablet, 11 Refills, Maintenance, 09/25/19 11:07:00 EDT, [facility], 159, cm, 05/20/19 12:19:00 EST, Height, 88.1, kg, 04/25/19 16:02:00 EST, Dry Weight Start Date: 09/25/19 Status: Ordered Eliquis 5 mg oral tablet 1 tablet = 5 mg, By Mouth, 2 times a day, # 60 tablet, 11 Refills, Maintenance, 07/22/19 8:58:00 EDT, Tablet, [facility], 159, cm, 05/20/19 12:19:00 EST, Height, 88.1, kg, 04/25/19 16:02:00 EST, Dry Weight Start Date: 07/22/19 Status: Ordered enalapril 10 mg oral tablet 10 mg, 1, tablet, By Mouth, Daily, 90 days, # 90 tablet, Refills 3, Tot. Refills 3, Maintenance, 09/19/18 15:15:30 EDT, Route to Pharmacy Electronically, [id number], [facility] Start Date: 09/19/18 Status: Ordered famotidine 40 mg oral tablet 1 tablet = 40 mg, By Mouth, Daily at bedtime, If 40 mg tablet is not available, can change to 20 mgtablet 2 tablet at bedtime, # 30 tablet, 2 Refills, Maintenance, 10/09/19 10:01:00 EDT, Tablet, [facility], 159, cm, 09/25/19 14:31... Start Date: 10/09/19 Status: Ordered ferrous sulfate 325 mg oral tablet 1 tablet = 325 mg, By Mouth, Daily, May take with food to minimize abdominal discomfort. Do not take with milk. Take preferrably with juice., # 90 tablet, 3 Refills, Maintenance, 11/22/19 14:58:00 EDT, [facility], 159, cm, 09/25/19... Start Date: 11/22/19 Status: Ordered flunisolide 25 mcg/inh nasal spray 2 puffs, Nasal, 2 times a day, Keep your head down while using dispense when patient request it, # 1 each, 11 Refills, Maintenance, 07/10/19 17:15:00 EDT, [facility]/pharmacy #[id number], discontinue nasacort, 2 puffs Nasal 2 [...] 11 Refills, Maintenance, 06/30/19 9:25:00 EDT, [facility]/pharmacy #[id number], 159, cm, 05/20/19 12:19:00 EST, Height, [...] Neb, Daily, PRN for wheezing, given by fulfillment associate , Dr Berkowitz, # 30 each, 0Refills, Maintenance, 11/20/19 13:06:00 EDT, Solution Start Date: 11/20/19 Status: Ordered loratadine 10 mg oral tablet 10 mg, 1, tablet, By Mouth, Daily, PRN, 90 days, # 90 tablet, Refills 3, Tot. Refills 3, Maintenance, as needed for allergy symptoms, 01/16/19 8:53:23 EDT, Route to Pharmacy Electronically, [id number], [facility] [place]... 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 Start Date: 12/20/19 Stop Date: 01/17/20 Status: Ordered oxyCODONE 5 mg oral tablet 5 mg, 1, tablet, By Mouth, Every 4 hours, for 28 days, dispense not earlier than 01/17/20, # 140 tablet, Refills 0, Tot. Refills 0, Acute 02/14/20 11:43:00 EST, 01/17/20 11:43:00 EDT, Route to Pharmacy Electronically, [facility], [place]... Start Date: 01/17/20 Stop Date: 02/14/20 Status: Ordered Pen [place], 32 G x 4 mm BD Ultra [...] 527 Gm,11 Refills, Maintenance, 01/16/19 8:53:22 EDT, [facility] Start Date: 01/16/19 Status: Ordered pravastatin [...] each, 3 Refills, Maintenance, 12/25/19 13:57:00 EDT, [facility], 1 film Topically Every 72 hours,Instr:discontinue mecli... Start Date: 12/25/19 Status: Ordered Senna 8.6 mg oral tablet 17.2 mg, 2, tablet, By Mouth, 2 times a day, PRN, increase dose, # 60 tablet, Refills 11, Tot. Refills 11, Maintenance, for constipation, 09/25/19 11:08:00 EDT, Route to Pharmacy Electronically, [facility] Tablet, 159, cm, 05/20/19... Start Date: [...] Tot. Refills 5, Maintenance, 11/29/19 14:34:00 EDT, [facility], [facility]... Start Date: 11/29/19 Status: Ordered TENS electrode pads TENS electrode pads, See Instructions, # 1 box, Refills 5, Tot. Refills 5, Maintenance, use as directed for back pain Dx LBP M54.9 1 box of 4, 12/06/16 14:59:01, Compound Start Date: 12/06/16 Status: Ordered Trelegy Ellipta inhalation powder 1 puffs, Inhalation, Daily, at the same time every day given by fulfillment associate , Dr Berkowitz, # 60 each, 0 Refills, Maintenance, 11/20/19 13:03:00 EDT, Powder Start Date: 11/20/19 Status: Ordered Tresiba FlexTouch 200 units/mL subcutaneous solution See Instructions, Max daily dose 100 units per day. E11.65, # 18 mL, 5 Refills, Maintenance, 09/23/19 9:57:00 EDT, [facility], 159, cm, 05/20/19 12:19:00 EST, Height, 88.1, kg, 04/25/19 16:02:00 EST, Dry Weight Start Date: 09/23/19 Status: Ordered Trulicity Pen 0.75 mg/0.5 mL subcutaneous solution 0.5 mL = 0.75 mg, Subcutaneous Injection, Every week, rotate injection sites, give once a week on the same day every week. E11.9, # 2.5 mL, 3 Refills, Maintenance, 12/20/19 10:50:00 EDT, Solution, [facility], 159, cm, 12/20/19... Start Date: 12/20/19 Status: Ordered Ventolin HFA 108 mcg/inh inhalation aerosol with adapter 2 puffs, Inhalation, 4 times a day, PRN Wheezing/Shortness of Breath, dispense when patient requestit, # 18 Gm, 5 Refills, Maintenance, 07/10/19 17:15:00 EDT, [facility]/pharmacy #[id number], 159, cm, 05/20/19 12:19:00 EST, Height, 88.1, kg, 04/25/19 16:02:00 EST... Start Date: 07/10/19 Status: Ordered Vitamin D3 1000 intl units oral tablet 1 tablet = 1,000 International_Units, By Mouth, Daily, # 90 tablet, 1 Refills, Maintenance, 10/09/19 10:01:00 EDT, [facility], 159, cm, 09/25/19 14:31:00 EDT, Height, 88.1, kg, 04/25/19 16:02:00 EST, Dry Weight Start Date: 10/09/19 Status: Ordered [place] Reusable Bed Pad 34 x 36 [place] Reusable Bed Pad 34 x 36 , [...] apnea)(Confirmed) Active Osteopenia(Confirmed) 18, 19 11/16/12 Active *[id number]-[facility] Partn david [place](Confirmed) Active Peripheral venous insufficiency(Confirmed) [...] 1 11left mild sensorineural hearing loss by [facility] Hearing Evaluation on 12/29/11 12Narcotic contract [...] lower parathyroidectomy. 06/16/08 SURGEON: Danny Marie M.D. ESCROW MANAGER: Naima Bowling M.D. 21b/l submassive PE diagnosed on Dec 20 in [facility] 22TTE 12/22/15 in [facility]: RV dilatation, RVSP 46 23Per ECHO 05/24/17 Trace mitral regurgitation , trace TC regurgitation w no significant valve pathology 24meg colo July 2009 exc for 2 hyperplastic polyps 25Colonoscopy 2004 at [facility] [place] per letter of Dr Amor Dobbins Social History Social History Type Response Smoking Status Never (less than 100 in lifetime) entered on: 12/25/19 Sex
--- OUTSIDE RECORDS SUMMARY | 2023-10-23 09:39 | XMS_ITS | Continuity of Care Document ---
Author Organization [facility] Address [address] [place] [address]- Care Team Providers Care Inspector Assembly Name Role Phone Gayathri GARZA, Florinda Primary Care Physician Encounter [facility] Date(s): 09/08/22 - 10/08/22 [facility]/[place] [address]- Attending Physician: Admtr, Ar8 Allergies, Adverse Reactions, Alerts Substance Reaction Severity Status enalapril Active penicillin RASH Active morphine itchy Active Bactrim 1 hyperkalemia Active Lidocaine, Topical Active 1Hyperkalemia when used together with lisinopril Immunizations Given and Recorded Vaccine Date Status Refusal Reason [id number] 12y+ bivalent booster vax 05/25/22 Given influenza [...] influenza virus vaccine, inactivated 5 02/09/06 Gi zeyn influenza virus vaccine, inactivated 6 05/06/04 Gi zeny zoster vaccine, inactivated 12/08/21 Given zoster vaccine, inactivated 09/15/21 Given SARS-CoV-2 mRNA (puudcvd-mtyl-slgva) vax 09/15/21 Given SARS-CoV-2 (COVID-19) mRNA BNT-162b2 [...] Given 1Result Comment: [03/04/2015] ORDERED BY DR. ARGUETA 2Admin Note: vis 11/02/2010 3Admin Note: given [...] Gm, 11 Refills, Maintenance, 07/21/21 12:43:00 EDT, [facility]/pharmacy #[id number], 1 applicator Topically [...] 3 Refills, Soft Stop, 03/09/22 11:35:00 EST, [facility]/pharmacy #[id number], 160, cm, 03/09/22 10:43:00EST, Height, 78, kg, 01/14/22 19:37:00 EDT, Dry W... Start Date: 03/09/22 Status: Ordered Biotene Moisturizing Mouth oral spray See Instructions, [place] directly into mouth; spray is safe to [...] P.M. NEEDED & 1 TAB AT [facility], # 180 tablet, 1 Refills, Maintenance, 08/05/22 12:49:00 EDT, [id number], 158, cm, 07/12/22 11:54:00 EDT, Height, 76, kg, 05/07/22 6:04:00 ES... Start Date: 08/05/22 Status: Ordered capsaicin 0.025% topical cream 1 application, Topically, 3 times a day, # 35 Gm, 11 Refills, Maintenance, 07/21/21 12:26:00 EDT, Cream, [facility]/pharmacy #[id number], 1 application Topically [...] 11 Refills, Maintenance, 12/06/21 15:04:00 EDT, Tablet, [facility], Partial fill upon patient request if the prescription is for a schedule II opioid drug., 160, cm, 11/23/21 14:47:00 ED... Start Date: 12/06/21 Status: Ordered esomeprazole 40 mg oral enteric coated capsule See Instructions, TAKE 1 CAPSULE BY MOUTH DAILY 30 MINUTES BEFORE BREAKFAST, # 30 capsule, 2 Refills, Maintenance, 08/05/22 12:49:00 EDT, [id number], 158, cm, 07/12/22 11:54:00 EDT, Height, 76, kg, 05/07/22 6:04:00 EST, Dry Weight Start Date: 08/05/22 Status: Ordered famotidine 40 mg oral tablet 1 tablet = 40 mg, By Mouth, Daily at bedtime, If 40 mg tablet is not available, can be changed to 20 mg tablet 2 tablet at bedtime, # 90 tablet, 3 Refills, Maintenance, 07/12/21 18:53:00 EDT, Tablet,[facility]/pharmacy #1026, Discontinue 30- day supply presc... Start Date: 07/12/21 Stop Date: 07/07/22 Status: Ordered ferrous sulfate 325 mg oral tablet 1 tablet = 325 mg, By Mouth, Daily, May take with food to minimize abdominal discomfort. Do not take with milk. Take preferrably with juice., # 90 tablet, 3 Refills, Maintenance, 09/15/21 8:56:00 EDT, [facility]/pharmacy #[id number], 160, cm, 09/15/21 [...] tablet, 0 Refills, Maintenance, 07/08/22 9:47:00 EDT, [id number], 158, cm, 06/16/22 11:27:00 EST, Height, 76, kg, 05/07/22 6:04:00 EST, Dry Weight Start Date: 07/08/22 Status: Ordered ketotifen 0.025% ophthalmic solution 1 drops, Eyes, Both, Every 12 hours, PRN as needed for eye allergy, # 7.5 mL, 11 Refills, Maintenance, 06/25/21 8:34:00 EDT, [facility]/pharmacy #1026, 1 drops Eyes, [...] 90 tablet, 3 Refills, 03/09/22 11:57:00 EST, [facility]/pharmacy #[id number], 1 tablet By Mouth Daily before dinner,PRN:allergies, 160, cm, 03/09/22 10:43:00 EST, Height, 78, kg, 01/14/22 19:37:00 ED... Start Date: 03/09/22 Status: Ordered montelukast 10 mg oral tablet 10 mg, 1, tablet, By Mouth, Daily at bedtime, # 90 tablet, Refills 3, Tot. Refills 3, Maintenance, 03/09/22 11:37:00 EST, Route to Pharmacy Electronically, [facility]/pharmacy #0838, 160, cm, 03/09/22 10:43:00 EST, Height, 78, kg, 01/14/22 19:37:00 EDT, Dry... Start Date: 03/09/22 Stop Date: 03/04/23 Status: Ordered Norvasc 5 mg oral tablet 5 mg, 1, tablet, By Mouth, Daily, # 90 tablet, Refills 3, Tot. Refills 3, Maintenance, 03/09/22 11:54:00 EST, Route to Pharmacy Electronically, [facility]/pharmacy #[id number], 160, cm, 03/09/22 [...] 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 Start Date: 03/09/22 Status: Ordered Jhs-fny-iwxhd medical-grade oxford diabetic shoes, depth or hightop Drw-smw-rxuhs medical-grade [place] diabetic shoes, depth or hightop, [...] Weight Start Date: 03/09/22 Status: Ordered Pen [place], 32 G x 4 mm BD Ultra [...] callus 11.628 right bunion M20.11 3 pairs, 04... Start Date: 07/21/21 Status: Ordered TENS electrode pads TENS electrode pads, See Instructions, # 1 each, Refills 5, Tot. Refills 5, Maintenance, use as directed for back pain Dx LBP M54.9 1 box of 4, 08/27/21 14:17:00 EDT, Compound Start Date: 08/27/21 Status: Ordered Trelegy Ellipta inhalation powder 1 puffs, Inhalation, Daily, at the same time every day Given by School Library Media Specialist, Dr. 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 06/16/08 SURGEON: Danny Marie M.D. TIP FIXER: Naima Bowling M.D. 22b/l submassive PE diagnosed on Dec 20 in [facility] 23TTE 12/22/15 in [facility]: RV dilatation, RVSP 46 24Per ECHO 05/24/17 Trace mitral regurgitation , trace TC regurgitation w no significant valve pathology 25meg colo July 2009 exc for 2 hyperplastic polyps 26Colonoscopy 2004 at [facility] [place] per letter of Dr Amor Dobbins Social History Social History Type Response Smoking Status Never (less than 100 in lifetime) entered on: 10/22/20 Sex Hospital Consult note * Event Display: Inpatient Consult Note, Non-BH Authored Date: Laboratory * Event Display: Non BH Lab Results Authored Date: * Event Display: Non BH Lab Results Authored Date: * Event Display: Non BH Lab Results Authored Date: Radiology * ArguetaFlorinda Moe MD: REVIEW Event Display: Ultrasound Lower Extremity, Non-BH Authored Date: * Florinda Trinh MD: REVIEW Event Display: MRI Head, Non- BH Authored Date: * Florinda Trinh MD: REVIEW Event Display: Non BH Radiology Results Authored Date: * Leonie Wayne S: PERFORM Event Display: Radiology Results Scanned Authored Date: * Connie Mckenna.: PERFORM Event Display: Radiology Results Scanned Authored Date: Patient Care team information Care Team Personnel Name: Diamond Weiss RN Position: [facility] RN Member Role: Primary Care Nurse Name: Tiara Cavazos RN Position: [facility] OB RN Member Role: Primary Care Nurse Name: Shreya Boss RN Position: S RN Member Role: Primary Care Nurse Name: Jaylin Hernandez RN Position: [facility] Onco RN Member Role: Primary Care Nurse Name: Glen Cota MD Position: [facility] Renal MD Member Role: Lifetime Consulting Physician Address: Address: [address] [place] [address] [facility] [place] [address]- Name: Florinda Trinh MD Position: [facility] Physician - Primary Care Member Role: PCP Address: Address: [address] [place] [address]- Care Team Related Persons Name: JOSE ELIAS TODD Address: [place] [address] Name: JOSE ELIAS KIRKLAND Address: home [address] [place] [id number] Name: LEONIE SCHRADER Address: [place] [address]
--- OUTSIDE RECORDS SUMMARY | 2023-10-23 09:39 | XMS_ITS | Continuity of Care Document ---
Author Organization [facility] Address [address] [place] [address]- Care Team Providers Care Pipe Stripper Name Role Phone Gayathri GARZA, Florinda Primary Care Physician Encounter [facility] Date(s): 04/25/19 - 05/05/19 [facility] [address] [place] [address]- [facility] Attending Physician: Yaya Patino Admitting Physician: Yaya Patino Referring Physician: Yaya Patino Allergies, Adverse Reactions, Alerts Substance Reaction Severity [...] or fever, (not to exceed 2000 mg/day) japanese, # 100 tablet, 11 Refills, Maintenance, 01/16/19 8:51:50 EDT Start Date: 01/16/19 Status: Ordered Alcohol Wipes See Instructions, # 150 each, Refills 11, Tot. Refills 11, Maintenance, Use to check blood sugar, up to 5 times daily. E11.65, IDDM, 03/19/19 11:16:43 EST, Compound, 159, cm, 01/16/19 7:59:50 EDT, Height, 88.3, kg, 12/13/18 10:17:57 EDT, Dry Weight Start Date: 03/19/19 Status: Ordered ammonium lactate 12% topical cream 1 applicator, Topically, 2 times a day, # 280 Gm, 11 Refills, Maintenance, 01/16/19 8:53:24 EDT, 1 applicator Topically 2 times a day Start Date: 01/16/19 Status: Ordered Arnuity Ellipta 200 mcg inhalation powder 1 puffs, Inhalation, Every 24 hours, discontinue ARnuity 100mcg, # 30 each, 11 Refills, Maintenance, 06/27/18 10:34:12 EDT, Powder Start Date: 06/27/18 Status: Ordered BD UF SHANNAN PEN NEEDLE [id number] BD UF SHANNAN PEN NEEDLE [id number], 0 Refills, Maintenance, 07/26/18 13:34:55 EDT Start Date: 07/26/18 Status: Ordered calcium (as citrate)-vitamin D 315 [...] a day Start Date: 09/19/18 Status: Ordered ciclopirox 0.77% topical lotion 1 [...] Refills, Maintenance, 03/27/19 9:10:00 EST, EC Capsule, [facility], 159, cm, 03/20/19 14:59:00 EST, Height, 88.3, kg, 12/13/18 10:17:00 EDT, Dry Weight Start Date: 03/27/19 Status: Ordered enalapril 10 mg oral tablet 10 mg, 1, tablet, By Mouth, Daily, 90 days, # 90 tablet, Refills 3, Tot. Refills 3, Maintenance, 09/19/18 15:15:30 EDT, Route to Pharmacy Electronically, [id number], [facility] Start Date: 09/19/18 Status: Ordered famotidine 40 mg oral tablet 1 tablet = 40 mg, By Mouth, Daily at bedtime, If 40 mg tablet is not available, can change to 20 mgtablet 2 tablet at bedtime, # 30 tablet, 5 Refills, Maintenance, 04/17/19 9:17:00 EST, Tablet, [facility], 159, cm, 04/17/19 8:24:0... Start Date: 04/17/19 Status: Ordered flunisolide 25 mcg/inh nasal spray 2 puffs, Nasal, 2 times a day, Keep your head down while using, # 1 each, 11 Refills, Maintenance, 06/27/18 10:34:10 EDT, discontinue nasacort, 2 puffs Nasal 2 times a day,Instr:Keep your head down while using Start Date: 06/27/18 Status: Ordered FREESTYLE LITE TEST STRIP FREESTYLE LITE TEST STRIP, 0 Refills, Maintenance, 07/26/18 13:34:58 EDT Start Date: 07/26/18 Status: Ordered Freestyle Lite Test Strips See Instructions, # 150 each, Refills 11, Tot. Refills 11, Maintenance, Check up to 5 times daily. E11.65, 03/19/19 11:16:10 EST, Compound, 159, cm, 01/16/19 7:59:50 EDT, Height, 88.3, kg, 12/13/18 10:17:57 EDT, Dry Weight Start Date: 03/19/19 Stop Date: 03/13/20 Status: Ordered gabapentin 400 mg oral capsule 800 mg, 2, capsule, By Mouth, 3 times a day, # 540 capsule, Refills 3, Tot. Refills 3, Maintenance,01/16/19 8:53:58 EDT, Route to Pharmacy Electronically, [id number], [facility] Start Date: 01/16/19 Stop Date: 01/11/20 Status: Ordered Glucose Tablets See Instructions, # 100 tablet, Refills 5, Tot. Refills 5, Maintenance, 1 tablet By Mouth prn low bs bellow 70, 01/24/18 15:40:58 EDT, Compound Start Date: 01/24/18 Status: Ordered Hydrocerin, Eucerin or generic equivalant cream Hydrocerin, Eucerin or generic equivalant cream, See Instructions, # 1 each, Refills 0, Tot. Refills 0, Maintenance, Apply BID to dry itching skin. Dispense one tub, approx 450 gm, 07/18/18 11:23:05 EDT, Compound Start Date: 07/18/18 Status: Ordered hydroCHLOROthiazide 12.5 mg oral capsule 1 capsule = 12.5 mg, By Mouth, Daily, # 30 capsule, 11 Refills, Maintenance, 06/27/18 10:34:12 EDT Start Date: 06/27/18 Stop Date: 06/22/19 Status: Ordered ketotifen 0.025% ophthalmic solution 1 [...] 01/16/19 8:53:23 EDT, Route to Pharmacy Electronically, [id number], [facility]... Start Date: 01/16/19 Status: Ordered Maalox Total Stomach Relief 525 [...] meals., # 50 mL, 11 Refills, Maintenance, 07/20/18 13:01:04 EDT, DxE11.65 Start Date: 07/20/18 Status: Ordered Pjb-uav-micke medical-grade oxford diabetic shoes, depth or hightop Yja-iyr-pplnt medical-grade oxford diabetic shoes, depth or hightop, [...] for 28 days, dispense not earlier than 05/10/19, # 137 tablet, Refills 0, Tot. Refills 0, Acute 06/07/19 12:47:00 EST, 05/10/19 12:47:00 EST, Route to Pharmacy Electronically, [facility] [place]... Start Date: 05/10/19 Stop Date: 06/07/19 Status: Ordered oxyCODONE 5 mg oral tablet 5 mg, 1, tablet, By Mouth, Every 4 hours, for 28 days, dispense not earlier than 06/07/19, # 137 tablet, Refills 0, Tot. Refills 0, Acute 07/05/19 12:47:00 EDT, 06/07/19 12:47:00 EST, Route to Pharmacy Electronically, [facility], [place]... Start Date: 06/07/19 Stop Date: 07/05/19 Status: Ordered oxyCODONE 5 mg oral tablet 5 mg, 1, tablet, By Mouth, Every 4 hours, for 28 days, dispense not earlier than 07/05/19, # 137 tablet, Refills 0, Tot. Refills 0, Acute 08/02/19 12:47:00 EDT, 07/05/19 12:47:00 EDT, Route to Pharmacy Electronically, [facility], [place]... Start Date: 07/05/19 Stop Date: 08/02/19 Status: Ordered oxyCODONE 5 mg oral tablet 5 mg, 1, tablet, By Mouth, Every 4 hours, for 28 days, dispense not earlier than 04/12/19, # 137 tablet, Refills 0, Tot. Refills 0, Acute 05/10/19 12:47:00 EST, 04/12/19 12:47:00 EST, Route to PharmacyElectronically, [facility], [place]... Start Date: 04/12/19 Stop Date: 05/10/19 Status: Ordered Pen [place], 32 G x 4 mm BD Ultra Fine III See Instructions, # 360 each, Refills 3, Tot. Refills 3, Maintenance, Use as directed for insulin use 4 times a day DX IDDM; 90 days, 09/19/18 15:06:51 EDT, Compound Start Date: 09/19/18 Status: Ordered PLEASE DO NOT ERASE ANY [...] dinner, # 30 tablet, 11 Refills, Maintenance, 06/27/18 10:34:11 EDT Start Date: 06/27/18 Status: Ordered Shoes insert, molded to foot [...] tablet, Refills 5, Tot. Refills 5, Maintenance, 10/09/18 8:43:19 EDT, Route to Pharmacy Electronically, [id number] Start Date: 10/09/18 Status: Ordered TENS electrode pads TENS electrode pads, See Instructions, # 1 box, Refills 5, Tot. Refills 5, Maintenance, use as directed for back pain Dx LBP M54.9 1 box of 4, 12/06/16 14:59:01, Compound Start Date: 12/06/16 Status: Ordered Tresiba FlexTouch 200 units/mL subcutaneous solution See Instructions, Take 90 units daily. E11.65, # 18 mL, 1 Refills, Maintenance, 05/01/19 15:57:00 EST, [id number], 159, cm, 04/25/19 16:02:00 EST, Height, 88.1, kg, 04/25/19 16:02:00 EST, DryWeight Start Date: 05/01/19 Status: Ordered Urinary incontinence pads Urinary incontinence pads, See Instructions, # 90 each, Refills 11, Tot. Refills 11, Maintenance, Ultra absorbent, large ( no wings) Wear daily during day and night. Change 3 times a day prn . Dx stress urinary incontinence ICD10 N39.3, .. Start Date: 10/25/17 Status: Ordered Ventolin HFA 108 mcg/inh inhalation aerosol with adapter 2 puffs, Inhalation, 4 times a day, PRN Wheezing/Shortness of Breath, # 18 Gm, 5 Refills, Maintenance, 06/27/18 10:33:16 EDT Start Date: 06/27/18 Status: Ordered Vitamin D3 1000 intl units oral tablet 1 tablet = 1,000 International_Units, By Mouth, Daily, # 90 tablet, 3 Refills, Maintenance, 09/19/18 15:13:28 EDT Start Date: 09/19/18 Status: Ordered [place] Reusable Bed Pad 34 x 36 [place] Reusable Bed Pad 34 x 36 , [...] abnormal(Confirmed) 9 12/29/11 Active Hepatitis C(Confirmed) Active long-term current use of opi ate analgesic-LBP(Confirmed) 10 Active Hypercholesterolemia(Confirmed) Active Hypertension(Confirmed) Active Hysterectomy(Confirmed) Active Incontinence of urine(Confirmed) Active Iron deficiency anemia(Confirmed) Active Left ventricular hypertrophy(Confirmed) 11 Active Memory impairment(Confirmed) Active Mitral regurgitation(Confirmed) 12 05/24/17 Active Nephrolithiasis(Confirmed) 13, 14, 15 06/11/02 Active Obesity(Confirmed) Active JENNIFER (obstructive sleep apnea)(Confirmed) Active Osteopenia(Confirmed) 16, 17 11/16/12 Active *[id number]-[facility] Part[facility] david [place](Confirmed) Active Peripheral venous insufficiency(Confirmed) [...] 2 peroneal veins diagnosed on Dec 20 [facility] 5insulin dependent 6Per ECHO 05/24/1718 Grade I, mild diastolic dysfunction with impaired LV relaxation, which may be normal for the patient's age. 7EGD on 06/24/16 by GI, Dr Damien caballero gastritis and esophageal varices grade 1 8EGD on 06/24/16 by GI, Dr Damien caballero gastritis and esophageal varices grade 1 9left mild sensorineural hearing loss by [facility] Hearing Evaluation on 12/29/11 10Narcotic [...] lower parathyroidectomy. 06/16/08 SURGEON: Danny Marie M.D. COMPOSITION MOLDER: Naima Bowling M.D. 19b/l submassive PE diagnosed on Dec 20 in [facility] 20TTE 12/22/15 in [facility]: RV dilatation, RVSP 46 21Per ECHO 05/24/17 Trace mitral regurgitation , trace TC regurgitation w no significant valve pathology meg colo July 2009 exc for 2 hyperplastic polyps 23Colonoscopy 2004 at [facility] [place] per letter of Dr Amor Dobbins Social History Social History Type Response Smoking Status Never (less than 100 in lifetime) entered on: 04/17/19 Sex
--- OUTSIDE RECORDS SUMMARY | 2023-10-23 09:39 | XMS_ITS | Continuity of Care Document ---
Author Organization [facility] Address Unknown Care Team Providers Care Teasel Gig Operator Name Role Phone Gayathri GARZA, Florinda Primary Care Physician Encounter [facility] Date(s): 10/14/21 - 11/13/21 [facility] Allergies, Adverse Reactions, Alerts Substance Reaction Severity Status penicillin RASH Active morphine itchy Active Bactrim 1 hyperkalemia Active Lidocaine, Topical Active 1Hyperkalemia when used together with lisinopril Immunizations Given and Recorded Vaccine Date Status Refusal Reason zoster vaccine, inactivated 09/15/21 Given SARS-CoV-2 mRNA ([id number]) vax 09/15/21 Given SARS-CoV-2 (COVID-19) mRNA BNT-162b2 [...] toxoids (Td) 14 11/10/10 Given 1Result Comment: Phil RUVALCABA RN 2Result Comment: Given by Leonie [...] or fever, (not to exceed 2000 mg/day) maltese, # 100 tablet, 11 Refills, Maintenance, 04/28/21 13:24:00 EST, [facility]pharmacy #[id number], 160, cm, 04/28/21 9:50:00 EST, Height, [...] Gm, 11 Refills, Maintenance, 07/21/21 12:43:00 EDT, [facility]/pharmacy #[id number], 1 applicator Topically 2 times a day, 160, cm, 07/21/21 10:22:00 EDT, Height, 80.6, kg, 06/03/20 19:00:00 EST, Dry Weight Start Date: 07/21/21 Status: Ordered Baqsimi Two Pack 3 mg nasal powder = 3 mg, Naris, Right, Once, Please use for a low blood sugar emergency, may repeat in 15 minutes, #2 each, 3 Refills, Soft Stop, 06/26/20 7:30:00 EDT, [facility]/pharmacy #[id number], Partial fill upon patient request if the prescription is for a schedule II op... Start Date: 06/26/20 Status: Ordered Biotene Moisturizing Mouth oral spray See Instructions, [place] directly into mouth; spray is safe to swallow as needed for dry mouth, # 45mL, 11 Refills, Maintenance, 07/21/21 12:43:00 EDT, [facility]/pharmacy #[id number], [place] directly into mouth; spray is safe to [...] needed for anxiety and 1tab at HS [id number], # 60 tablet, 11 Refills, Maintenance, 09/15/21 9:02:00 EDT, [facility]/pharmacy #[id number], Partial fill upon patient request... Start Date: 09/15/21 Status: Ordered capsaicin 0.025% topical cream 1 application, Topically, 3 times a day, # 35 Gm, 11 Refills, Maintenance, 07/21/21 12:26:00 EDT, Cream, [facility]/pharmacy #[id number], 1 application Topically 3 times a [...] 11 Refills, Maintenance, 04/21/21 18:12:00 EST, Tablet, [facility]/pharmacy #[id number], 160, cm, 03/03/21 11:23:00 EST, Height, 80.6, kg, 06/03/20 19:00:00 EST, Dry Weight Start Date: 04/21/21 Status: Ordered escitalopram 20 mg oral tablet 1 tablet = 20 mg, By Mouth, Daily, Discontinue duloxetine 60 mg, # 30 tablet, 11 Refills, Maintenance, 12/09/20 11:15:00 EDT, Tablet, [facility]/pharmacy #[id number], Partial [...] tablet, 3 Refills, Maintenance, 07/12/21 18:53:00 EDT, Tablet,[facility][id number], Discontinue 30- day supply presc... Start Date: 07/12/21 Stop Date: 07/07/22 Status: Ordered ferrous sulfate 325 mg oral tablet 1 tablet = 325 mg, By Mouth, Daily, May take with food to minimize abdominal discomfort. Do not take with milk. Take preferrably with juice., # 90 tablet, 3 Refills, Maintenance, 09/15/21 8:56:00 EDT, [facility]/pharmacy #[id number], 160, cm, 09/15/21 8:15:00 EDT,... Start Date: 09/15/21 Status: Ordered FREESTYLE LITE TEST STRIP FREESTYLE [...] 04/28/21 14:34:00 EST, Route to Pharmacy Electronically, [facility]/pharmacy #[id number], Can use with HCTZ, 160, cm, [...] capsule, 3 Refills, Maintenance, 10/22/20 10:35:00 EDT, [facility]/pharmacy #[id number], 160, cm, 10/22/20 9:15:00 EDT, Height, [...] # 90 tablet, 1 Refills, [id number], 90, TOME GAGE TABLETA POR VIA ORAL TODOS LOS [facility], 160, cm, 09/21/21 8:54:00 EDT, Height, 80.6,kg, 06/03/20 19:00:00 EST, Dry Weight Start Date: 10/13/21 Status: Ordered Nexium 40 mg oral enteric coated capsule 1 capsule = 40 mg, By Mouth, Daily, 30 minutes before breakfast, # 30 capsule, 11 Refills, Maintenance, 04/28/21 14:00:00 EST, [facility]/pharmacy #[id number], Discontinue pantoprazole, 160, cm, 04/28/21 9:50:00 [...] 0 Refills, Maintenance, 09/21/21 9:23:00 EDT, Tablet, [facility], P... Start Date: 09/21/21 Status: Ordered Norvasc 5 mg oral tablet 5 mg, 1, tablet, By Mouth, Daily, # 30 tablet, Refills 0, Tot. Refills 0, Maintenance, 09/21/21 9:23:00 EDT, Route to Pharmacy Electronically, [facility], Partial fill upon patient request if [...] 78.8, kg,... Start Date: 01/21/20 Status: Ordered Jqk-jvx-arqnq medical-grade oxford diabetic shoes, depth or hightop Dzb-szg-nrddt medical-grade oxford diabetic shoes, depth or hightop, [...] days, PRN pain dispense not earlier than 11/01/21 Please dispense KVTek brand (K18) If oxycodone 5 mg tablet is not available, it can be switched to oxycodone 10 mg 0.5 tablets 4 hours x28 days f... Start Date: 11/01/21 Stop Date: 11/29/21 Status: Ordered oxyCODONE 5 mg oral tablet 5 mg, 1, tablet, By Mouth, Every 4 hours, for 28 days, PRN pain dispense not earlier than 11/29/21 Please dispense KVTek brand (K18) If oxycodone 5 mg tablet is not available, it can be switched to oxycodone 10 mg 0.5 tablets 4 hours x28 days f... Start Date: 11/29/21 Stop Date: 12/27/21 Status: Ordered Pen [place], 32 G x 4 mm BD Ultra [...] 04/28/21 14:02:00 EST, Route to Pharmacy Electronically, [facility]/pharmacy #[id number], 160... Start Date: 04/28/21 Stop Date: [...] 11 Refills, Maintenance, 04/28/21 14:03:00 EST, Tablet, [facility]/pharmacy #1026, 160, cm, 04/28/21 9:50:00 EST, Height, 80.6, kg, 06/03/20 19:00:00 EST, Dry Weight Start Date: 04/28/21 Status: Ordered Senna-Time 8.6 mg oral tablet 2 tablet, By Mouth, 2 times a day, PRN NEEDED FOR CONSTIPATION,INSTR, DISCONTINUE DOCUSATE, # 60tablet, 11 Refills, [id number], 160, cm, 03/03/21 11:23:00 EST, Height, 80.6, [...] 02/22/21 17:50:00 EST, Route to Pharmacy Electronically, [facility]/pharmacy #[id number], 1... Start Date: 02/22/21 Status: Ordered tamsulosin 0.4 mg oral capsule See Instructions, TOME 1 CAPSULA POR VIA ORAL TODOS LOS HD[facility], # 30 capsule, Refills 0, InstructionsReplace Required Details, Route to Pharmacy Electronically, [id number], 160, cm, 09/21/21 8:54:00 EDT, Height, 80.6, kg, 06/03/20 19:00:00 EST, . Start Date: 10/08/21 Status: Ordered TENS electrode [...] 09/15/21 9:03:00 EDT, Route to Pharmacy Electronically, [facility]/pharmacy #[id number], Partial fill upon patient request if the prescri... Start Date: 09/15/21 Stop Date: 03/02/22 Status: Ordered Trelegy Ellipta inhalation powder 1 puffs, Inhalation, Daily, at the same time every day Given by Touch Up Edger, Dr. Michael Berkowitz, # 60 each, 0 Refills, Maintenance, 07/21/21 11:59:00 EDT, Powder, Partial fill upon patient request if the prescription is for a schedule II opi... Start Date: 07/21/21 Status: Ordered Tresiba FlexTouch 200 units/mL subcutaneous solution See Instructions, INJECT 86 UNITS DAILY AT 9PM, # 45 Unknown, 6 Refills, [id number], 160, cm, 06/21/21 9:57:00 EDT, Height, 80.6, [...] Date: 02/15/21 Stop Date: 05/10/21 Status: Ordered [place] Reusable Bed Pad 34 x 36 [place] Reusable Bed Pad 34 x 36 , [...] apnea)(Confirmed) Active Osteopenia(Confirmed) 18, 19 11/16/12 Active *[id number] Cheri Partphil More(Confirmed) Active Peripheral venous insufficiency(Confirmed) 10/31/11 Active [...] 2 peroneal veins diagnosed on Dec 20 [facility] 6insulin dependent 7Per ECHO 05/24/1718 Grade [...] 1 11left mild sensorineural hearing loss by [facility] Hearing Evaluation on 12/29/11 12Narcotic [...] lower parathyroidectomy. 06/16/08 SURGEON: Danny Marie M.D. CAR ICER: Naima Bowling M.D. 21b/l submassive PE diagnosed on Dec 20 in [facility] 22TTE 12/22/15 in [facility]: RV dilatation, RVSP 46 23Per ECHO 05/24/17 Trace mitral regurgitation , trace TC regurgitation w no significant valve pathology 24meg colo July 2009 exc for 2 hyperplastic polyps 25Colonoscopy 2004 at [facility] [place] per letter of Dr Amor Dobbins Social History Social History Type Response Smoking Status Never (less than 100 in lifetime) entered on: 10/22/20 Sex
--- OUTSIDE RECORDS SUMMARY | 2023-10-23 09:39 | XMS_ITS | Continuity of Care Document ---
Author Organization [facility] Address [address] [place] [id number]- Care Team Providers Care Physician Executive Name Role Phone Florinda Trinh MD Primary Care Physician [place] [facility] 12[place]21 - 02/19/22 [facility] [address] [place] [id number]- Attending Physician: Daryl Regalado MD Admitting Physician: Daryl Regalado MD Referring Physician: Florinda Trinh MD Allergies, Adverse Reactions, Alerts Substance Reaction Severity Status penicillin RASH Active morphine itchy Active Bactrim 1 hyperkalemia Active Lidocaine, Topical Active 1Hyperkalemia when used together with lisinopril Immunizations Given and Recorded Vaccine Date Status Refusal Reason zoster vaccine, inactivated 12/08/21 Given zoster vaccine, inactivated 09/15/21 Given SARS-CoV-2 mRNA ([id number]) vax 09/15/21 Given SARS-CoV-2 (COVID-19) mRNA BNT-162b2 [...] given by ANDREWS. KASH 6Admin Note: MELISSA CRAFT RN 7Admin Note: [...] 03/16/22 13:10:00 EST, 02/16/22 13:10:00 EST, Tablet, [facility], Partial greyson... Start Date: 02/16/22 Stop [...] needed for anxiety and 1tab at HS [id number], # 60 tablet, 11 Refills, Maintenance, 09/15/21 9:02:00 EDT, [id number], Partial fill upon patient request... Start Date: 09/15/21 Status: Ordered capsaicin 0.025% topical cream 1 application, Topically, 3 times a day, # 35 Gm, 11 Refills, Maintenance, 07/21/21 12:26:00 EDT, Cream, [facility]/pharmacy #[id number], 1 application Topically 3 times a [...] 11 Refills, Maintenance, 04/21/21 18:12:00 EST, Tablet, [facility]/pharmacy #[id number], 160, cm, 03/03/21 11:23:00 EST, Height, 80.6, kg, 06/03/20 19:00:00 EST, Dry Weight Start Date: 04/21/21 Status: Ordered escitalopram 20 mg oral tablet 1 tablet = 20 mg, By Mouth, Daily, # 30 tablet, 11 Refills, Maintenance, 12/06/21 15:04:00 EDT, Tablet, [facility], Partial fill upon patient [...] tablet, 3 Refills, Maintenance, 07/12/21 18:53:00 EDT, Tablet,[facility]acy #[id number], Discontinue 30- day supply presc... Start [...] 04/28/21 14:34:00 EST, Route to Pharmacy Electronically, [facility]/pharmacy #[id number], Can use with HCTZ, 160, cm, [...] capsule, 3 Refills, Maintenance, 11/19/21 14:28:00 EDT, [facility]/pharmacy #[id number], 160, cm, 11/05/21 9:50:00 EDT, Height, 80.5, kg, 11/05/21 9:50:00 EDT, Dry Weight Start Date: 11/19/21 Stop Date: 11/14/22 Status: Ordered ketotifen 0.025% ophthalmic solution 1 drops, Eyes, Both, Every 12 hours, PRN as needed for eye allergy, # 7.5 mL, 11 Refills, Maintenance, 06/25/21 8:34:00 EDT, [facility]/pharmacy #[id number], 1 drops Eyes, Both Every 12 [...] # 90 tablet, 1 Refills, [id number], 90, TOME GAGE TABLETA POR VIA ORAL [...] capsule, 11 Refills, Maintenance, 04/28/21 14:00:00 EST, [facility]/pharmacy #[id number], Discontinue pantoprazole, 160, cm, 04/28/21 9:50:00 [...] 09/21/21 9:23:00 EDT, Route to Pharmacy Electronically, [facility], Partial fill upon patient request if [...] #1026, 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 Start Date: 01/17/22 Status: Ordered Lgu-rbs-ikusc medical-grade oxford diabetic shoes, depth or hightop Xjo-kop-dfqng medical-grade oxford diabetic shoes, depth or hightop, See Instructions, # 1 each, Refills 0, Tot. 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 Start Date: 07/21/21 Status: Ordered Pen [place], 32 G x 4 mm BD Ultra [...] the same time every day Given by Asic Design Engineer, Dr. Michael Berkowitz, # 60 each, 0 Refills, Maintenance, 07/21/21 11:59:00 EDT, Powder, Partial fill upon patient request if the prescription is for a schedule II opi... Start Date: 07/21/21 Status: Ordered Tresiba FlexTouch 200 units/mL subcutaneous solution See Instructions, INJECT 86 UNITS DAILY AT 9PM, # 45 Unknown, 6 Refills, [id number], 160, cm, 06/21/21 9:57:00 EDT, Height, 80.6, kg, 06/03/20 19:00:00 EST, Dry Weight Start Date: 06/22/21 Status: Ordered Ventolin HFA 108 mcg/inh inhalation aerosol with adapter 2 puffs, Inhalation, 4 times a day, PRN Wheezing/Shortness of Breath, dispense when patient requestit, # 18 Gm, 5 Refills, Maintenance, 11/09/20 12:36:00 EDT, [facility]/pharmacy #[id number], 160, cm, 10/22/20 9:15:00 EDT, Height, [...] Date: 02/15/21 Stop Date: 05/10/21 Status: Ordered [place] Reusable Bed Pad 34 x 36 [place] Reusable Bed Pad 34 x 36 , [...] Confirmed 12/29/11 Active Hepatitis C Confirmed Active [facility] current use of opiate analgesic-LBP 12 Confirmed [...] Osteopenia 18, 19, 20 Confirmed 11/16/12 Active *[id number] Nuclear Operations Specialist Karine More Confirmed Active Peripheral venous [...] 11left mild sensorineural hearing loss by [facility] Hearing Evaluation on 12/29/11 12Narcotic [...] lower parathyroidectomy. 06/16/08 SURGEON: Danny Marie M.D. WIRE MACHINE CUTTER: Naima Bowling M.D. 22b/l submassive PE diagnosed on Dec 20 in [facility] 23TTE 12/22/15 in [facility]: RV dilatation, RVSP 46 24Per ECHO 05/24/17 Trace mitral regurgitation , trace TC regurgitation w no significant valve pathology 25meg colo July 2009 exc for 2 hyperplastic polyps 26Colonoscopy 2004 at [facility] per letter of Dr Amor Dobbins Social History Social History Type Response Smoking Status Never (less than 100 in lifetime) entered on: 10/22/20 Sex Patient Care team information Care Team Personnel Name: Diamond Weiss RN Position: [facility] RN Member Role: Primary Care Nurse Name: Tiara Cavazos RN Position: [facility] OB RN Member Role: Primary Care Nurse Name: Shreya Boss RN Position: [facility] RN Member Role: Primary Care Nurse Name: Virginia Benson RN Position: [facility] RN Member Role: Primary Care Nurse Name: Jaylin Hernandez RN Position: [facility] Onco RN Member Role: Primary Care Nurse Name: Glen Cota MD Position: [facility] Renal MD Member Role: Lifetime Consulting Physician Address: Address: [address] [place] [address] [facility] [address] Name: Florinda Trinh MD Position: [facility] Primary Care Physician Member Role: PCP Address: Address: [address] [place] [address]- Care Team Related Persons Name: JOSE ELIAS TODD Address: [place] [address] Name: JOSE ELIAS KIRKLAND Address: home [address] [place] [id number] Name: LEONIE SCHRADER Address: [place] [address]
--- OUTSIDE RECORDS SUMMARY | 2023-10-23 09:39 | XMS_ITS | Continuity of Care Document ---
Author Organization [facility] Address Unknown Care Team Providers Care Family Services Coordinator Name Role Phone Gayathri GARZA, Florinda Primary Care Physician Encounter [facility] [place] Date(s): 08/12/21 - 09/11/21 [facility] Allergies, Adverse Reactions, Alerts Substance [...] japanese, # 100 tablet, 11 Refills, Maintenance, 04/28/21 13:24:00 EST, [facility]/pharmacy #1026, 160, cm, 04/28/21 9:50:00 [...] Biotene Moisturizing Mouth oral spray See Instructions, [place] directly into mouth; spray is safe to swallow as needed for dry mouth, # 45mL, 11 Refills, Maintenance, 07/21/21 12:43:00 EDT, [facility], [place] directly into mouth; spray is safe to [...] Maintenance, 04/21/21 18:12:00 EST, Tablet, [facility]/pharmacy #1026, 160, cm, 03/03/21 11:23:00 [...] 14:34:00 EST, Route to Pharmacy Electronically, [facility]/pharmacy #1026, Can use with HCTZ, [...] capsule, 3 Refills, Maintenance, 10/22/20 10:35:00 EDT, [facility]/pharmacy #1026, 160, cm, 10/22/20 9:15:00 EDT, Height, 80.6, kg, 06/03/20 19:00:00 EST, Dry Weight Start Date: 10/22/20 Stop Date: 10/17/21 Status: Ordered ketotifen 0.025% ophthalmic solution 1 drops, Eyes, Both, Every 12 hours, PRN as needed for eye allergy, # 7.5 mL, 11 Refills, Maintenance, 06/25/21 8:34:00 EDT, [facility]/pharmacy #1026, [...] DAILY, E11.65, # 90 tablet, 2 Refills, [facility] ST[id number], 160, cm, 06/21/21 9:57:00 EDT, Height, 80.6, [...] 78.8, kg,... Start Date: 01/21/20 Status: Ordered Viq-mjm-wouuv medical-grade oxford diabetic shoes, depth or hightop Bgl-sfc-plbrg medical-grade oxford diabetic shoes, depth or hightop, [...] 10/04/21 Stop Date: 11/01/21 Status: Ordered Pen [place], 32 G x 4 mm BD Ultra [...] 14:02:00 EST, Route to Pharmacy Electronically, [facility]/pharmacy #1026, 160... Start Date: 04/28/21 [...] Refills, Maintenance, 04/28/21 14:03:00 EST, Tablet, [facility]/pharmacy #1026, 160, cm, 04/28/21 9:50:00 EST, Height, 80.6, kg, 06/03/20 19:00:00 EST, Dry Weight Start Date: 04/28/21 Status: Ordered Senna-Time 8.6 mg oral tablet 2 tablet, By Mouth, 2 times a day, PRN NEEDED FOR CONSTIPATION,INSTR, DISCONTINUE DOCUSATE, # 60tablet, 11 Refills, [facility] ST[facility] [id number], 160, cm, 03/03/21 11:23:00 EST, Height, 80.6, [...] Electronically, [facility]/pharmacy #1026, 1... Start Date: 02/22/21 [...] Pharmacy Electronically, [facility]/pharmacy #1026,Partial fill upon patient request if the prescrip... Start Date: 02/15/21 Stop Date: 03/29/21 Status: Ordered Trelegy Ellipta inhalation powder 1 puffs, Inhalation, Daily, at the same time every day Given by Quote Clerk, Dr. Michael Berkowitz, # 60 each, 0 Refills, Maintenance, 07/21/21 11:59:00 EDT, Powder, Partial fill upon patient request if the prescription is for a schedule II opi... 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 06/16/08 SURGEON: Danny Marie M.D. SOLAR SYSTEMS DESIGNER: Naima Bowling M.D. 21b/l submassive PE diagnosed on Dec 20 in [facility] TTE 12/22/15 in [facility]: RV dilatation, RVSP 46 23Per ECHO 05/24/17 Trace mitral regurgitation , trace TC regurgitation w no significant valve pathology 24meg colo July 2009 exc for 2 hyperplastic polyps 25Colonoscopy 2004 at [facility] [place] per letter of Dr Amor Dobbins Social History Social History Type Response Smoking Status Never (less than 100 in lifetime) entered on: 10/22/20 Sex
--- OUTSIDE RECORDS SUMMARY | 2023-10-23 09:40 | XMS_ITS | Continuity of Care Document ---
Author Organization [facility] Address [address] [place] [address]- Care Team Providers Care Director Power Name Role Phone Gaaythri GARZA, Florinda Primary Care Physician Encounter [facility] Date(s): 11/20/19 - 12/20/19 [facility] [place] [address] [place] [address]- [facility] Attending Physician: Admtr, Ar8 Allergies, Adverse Reactions, [...] or fever, (not to exceed 2000 mg/day) gambian, # 100 tablet, 11 Refills, Maintenance, 01/16/19 [...] 11 Refills, Maintenance, 06/30/19 9:28:00 EDT, Powder, [facility]/pharmacy #0957, 159, cm, 05/20/19 12:19:00 EST, Height, 88.1, kg, 04/25/19 16:02:00 EST, DryWeight Start Date: 06/30/19 Status: Ordered budesonide 0.5 mg/2 mL inhalation suspension 0.5 mg, 2, mL, Neb, Daily, given by historical site guide , Dr Berkowitz, # 120 mL, Refills [...] 11 Refills, Maintenance, 09/25/19 11:21:00 EDT, Cream, [facility], 1 application Topically 3 times a [...] Refills, Maintenance, 03/27/19 9:10:00 EST, EC Capsule, [facility], 159, cm, 03/20/19 14:59:00 EST, Height, 88.3, kg, 12/13/18 10:17:00 EDT, Dry Weight Start Date: 03/27/19 Status: Ordered docusate sodium 100 mg oral tablet 2 tablet = 200 mg, By Mouth, 2 times a day, # 120 tablet, 11 Refills, Maintenance, 09/25/19 11:07:00 EDT, [facility], 159, cm, 05/20/19 12:19:00 EST, Height, 88.1, kg, 04/25/19 16:02:00 EST, Dry Weight Start Date: 09/25/19 Status: Ordered Eliquis 5 mg oral tablet 1 tablet = 5 mg, By Mouth, 2 times a day, # 60 tablet, 11 Refills, Maintenance, 07/22/19 8:58:00 EDT, Tablet, [facility], 159, cm, 05/20/19 12:19:00 EST, Height, 88.1, kg, 04/25/19 16:02:00 EST, Dry Weight Start Date: 07/22/19 Status: Ordered enalapril 10 mg oral tablet 10 mg, 1, tablet, By Mouth, Daily, 90 days, # 90 tablet, Refills 3, Tot. Refills 3, Maintenance, 09/19/18 15:15:30 EDT, Route to Pharmacy Electronically, [id number], [facility] Start Date: 09/19/18 Status: Ordered famotidine 40 mg oral tablet 1 tablet = 40 mg, By Mouth, Daily at bedtime, If 40 mg tablet is not available, can change to 20 mgtablet 2 tablet at bedtime, # 30 tablet, 2 Refills, Maintenance, 10/09/19 10:01:00 EDT, Tablet, [facility], 159, cm, 09/25/19 14:31... Start Date: 10/09/19 Status: Ordered ferrous sulfate 325 mg oral tablet 1 tablet = 325 mg, By Mouth, Daily, May take with food to minimize abdominal discomfort. Do not take with milk. Take preferrably with juice., # 90 tablet, 3 Refills, Maintenance, 11/22/19 14:58:00 EDT, [facility], 159, cm, 09/25/19... Start Date: 11/22/19 Status: Ordered flunisolide 25 mcg/inh nasal spray 2 puffs, Nasal, 2 times a day, Keep your head down while using dispense when patient request it, # 1 each, 11 Refills, Maintenance, 07/10/19 17:15:00 EDT, [facility]/pharmacy #0957, discontinue nasacort, 2 puffs Nasal [...] capsule, 11 Refills, Maintenance, 06/30/19 9:25:00 EDT, [facility]/pharmacy #0957, 159, cm, 05/20/19 12:19:00 EST, [...] Neb, Daily, PRN for wheezing, given by historical site guide , Dr Berkowitz, # 30 each, 0Refills, Maintenance, 11/20/19 13:06:00 EDT, Solution Start Date: 11/20/19 Status: Ordered loratadine 10 mg oral tablet 10 mg, 1, tablet, By Mouth, Daily, PRN, 90 days, # 90 tablet, Refills 3, Tot. Refills 3, Maintenance, as needed for allergy symptoms, 01/16/19 8:53:23 EDT, Route to Pharmacy Electronically, [id number], [facility]... Start Date: 01/16/19 [...] tablet, 1 Refills, Maintenance, 09/25/19 11:46:00 EDT, [facility], 159, cm, 05/20/19 12:19:00 EST, Height, 88.1, kg, 04/25/19 16:02:00 EST, Dry Weight Start Date: 09/25/19 Status: Ordered metFORMIN 500 mg oral tablet 1 tablet = 500 mg, By Mouth, 2 times a day, Take 1 tablet 2x a day. E11.65, # 60 tablet, 11 Refills, Maintenance, 09/23/19 9:54:00 EDT, Tablet, [facility], 159, cm, 05/20/19 12:19:00 EST, Height, 88.1, kg, 04/25/19 16:02:00 EST, Start Date: 09/23/19 Status: Ordered NovoLOG FlexPen 100 units/mL subcutaneous solution See Instructions, Max daily dose 100 units per day. E11.65, # 45 mL, 11 Refills, Maintenance, 09/23/19 9:56:00 EDT, [facility], DxE11.65, 159, cm, 05/20/19 12:19:00 EST, Height, 88.1, kg, 04/25/19 16:02:00 EST, Dry Weight Start Date: 09/23/19 Status: Ordered Wgz-wzo-qibrd medical-grade oxford diabetic shoes, depth or hightop Lrm-tjc-vnlzo medical-grade oxford diabetic shoes, depth or hightop, [...] 12/20/19 11:43:00 EDT, Route to Pharmacy Electronically, [facility], [place]... Start Date: 12/20/19 Stop Date: 01/17/20 Status: Ordered oxyCODONE 5 mg oral tablet 5 mg, 1, tablet, By Mouth, Every 4 hours, for 28 days, dispense not earlier than 01/17/20, # 140 tablet, Refills 0, Tot. Refills 0, Acute 02/14/20 11:43:00 EST, 01/17/20 11:43:00 EDT, Route to Pharmacy Electronically, [facility], [place]... Start Date: 01/17/20 Stop Date: 02/14/20 Status: Ordered Pen [place], 32 G x 4 mm BD Ultra [...] 527 Gm,11 Refills, Maintenance, 01/16/19 8:53:22 EDT, [facility] Start Date: 01/16/19 Status: Ordered pravastatin [...] 09/25/19 11:08:00 EDT, Route to Pharmacy Electronically, [facility] Tablet, 159, cm, 05/20/19... Start Date: [...] Tot. Refills 5, Maintenance, 11/29/19 14:34:00 EDT, [facility] Electron[facility], [facility] [place]... Start Date: 11/29/19 Status: Ordered TENS electrode pads TENS electrode pads, See Instructions, # 1 box, Refills 5, Tot. Refills 5, Maintenance, use as directed for back pain Dx LBP M54.9 1 box of 4, 12/06/16 14:59:01, Compound Start Date: 12/06/16 Status: Ordered Trelegy Ellipta inhalation powder 1 puffs, Inhalation, Daily, at the same time every day given by historical site guide , Dr Berkowitz, # 60 each, 0 Refills, Maintenance, 11/20/19 13:03:00 EDT, Powder Start Date: 11/20/19 Status: Ordered Tresiba FlexTouch 200 units/mL subcutaneous solution See Instructions, Max daily dose 100 units per day. E11.65, # 18 mL, 5 Refills, Maintenance, 09/23/19 9:57:00 EDT, [facility], 159, cm, 05/20/19 12:19:00 EST, Height, 88.1, kg, 04/25/19 16:02:00 EST, Dry Weight Start Date: 09/23/19 Status: Ordered Trulicity Pen 0.75 mg/0.5 mL subcutaneous solution 0.5 mL = 0.75 mg, Subcutaneous Injection, Every week, rotate injection sites, give once a week on the same day every week. E11.9, # 2.5 mL, 3 Refills, Maintenance, 12/20/19 10:50:00 EDT, Solution, [facility], 159, cm, 12/20/19... Start Date: 12/20/19 Status: Ordered Ventolin HFA 108 mcg/inh inhalation aerosol with adapter 2 puffs, Inhalation, 4 times a day, PRN Wheezing/Shortness of Breath, dispense when patient requestit, # 18 Gm, 5 Refills, Maintenance, 07/10/19 17:15:00 EDT, [facility]/pharmacy #[id number], 159, cm, 05/20/19 12:19:00 EST, Height, 88.1, kg, 04/25/19 16:02:00 EST... Start Date: 07/10/19 Status: Ordered Vitamin D3 1000 intl units oral tablet 1 tablet = 1,000 International_Units, By Mouth, Daily, # 90 tablet, 1 Refills, Maintenance, 10/09/19 10:01:00 EDT, [facility], 159, cm, 09/25/19 14:31:00 EDT, Height, 88.1, kg, 04/25/19 16:02:00 EST, Dry Weight Start Date: 10/09/19 Status: Ordered [place] Reusable Bed Pad 34 x 36 Barre Reusable Bed Pad 34 x 36 , [...] asthma(Confirmed) Active Cataract(Confirmed) 4 Active Cholecystectomy(Confirmed) Active Deep vein thrombosis (DVT)(C onfirmed) 5 [...] apnea)(Confirmed) Active Osteopenia(Confirmed) 18, 19 11/16/12 Active *[id number]-[facility] Partn david F[place](Confirmed) Active Peripheral [...] 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 06/16/08 SURGEON: Danny Marie M.D. INSPECTOR SHELLS: Naima Bowling M.D. 21b/l submassive PE diagnosed on Dec 20 in [facility] 22TTE 12/22/15 in [facility]: RV dilatation, RVSP 46 23Per ECHO 05/24/17 Trace mitral regurgitation , trace TC regurgitation w no significant valve pathology 24meg colo July 2009 exc for 2 hyperplastic polyps 25Colonoscopy 2004 at [facility] [place] per letter of Dr Amor Dobbins Social History Social History Type Response Smoking Status Never (less than 100 in lifetime) entered on: 04/17/19 Sex
--- OUTSIDE RECORDS SUMMARY | 2023-10-23 09:40 | XMS_ITS | Continuity of Care Document ---
Author Organization [facility] Address [address] [place] [address]- Care Team Providers Care Animal Control Specialist Name Role Phone Gayathri GARZA, Florinda Primary Care Physician Encounter [facility] Date(s): 06/10/20 - 07/10/20 [facility] [address]- Allergies, Adverse Reactions, Alerts Substance Reaction Severity [...] or fever, (not to exceed 2000 mg/day) somali, # 100 tablet, 5 Refills, Maintenance, 01/22/20 9:18:00 EDT, [facility]/pharmacy #[id number], 167, cm, 01/13/20 8:54:00 EDT, [...] 06/12/20 8:36:00 EST, Route to Pharmacy Electronically, [facility]/pharmacy #[id number], 160, cm, 06/04/20 11:29:00 EST, Height, 80.6, kg, 06/03/20 19:00:00 EST, Dry Weight Start Date: 06/12/20 Status: Ordered ammonium lactate 12% topical cream 1 applicator, Topically, 2 times a day, # 280 Gm, 11 Refills, Maintenance, 01/27/20 19:13:00 EDT, [facility]/pharmacy #1026, 1 applicator Topically 2 times a day, 167, cm, 01/13/20 8:54:00 EDT, Height, 78.8, kg, 01/01/20 3:41:00 EDT, Dry Weight Start Date: 01/27/20 Status: Ordered Baqsimi Two Pack 3 mg nasal powder = 3 mg, Naris, Right, Once, Please use for a low blood sugar emergency, may repeat in 15 minutes, #2 each, 3 Refills, Soft Stop, 06/26/20 7:30:00 EDT, [facility]/pharmacy #1026, Partial fill upon patient request if the prescription is for a schedule II op... Start Date: 06/26/20 Status: Ordered calcium (as citrate)-vitamin D 315 mg-250 intl units oral tablet 2 tablet, By Mouth, 2 times a day, for 30 days, calcium citrate, # 120 tablet, 11 Refills, Hard Stop 01/21/21 19:13:00 EDT, 01/27/20 19:13:00 EDT, Tablet, [facility]/pharmacy #1026, 167, cm, 01/13/20 8:54:00 EDT, Height, 78.8, kg, 01/01/20 3:41:00 EDT, Dry... Start Date: 01/27/20 Stop Date: 01/21/21 Status: Ordered capsaicin 0.025% topical cream 1 application, Topically, 3 times a day, # 90 Gm, 11 Refills, Maintenance, 02/10/20 11:22:00 EST, Cream, [facility]/pharmacy #1026, 1 application Topically 3 times [...] Refills, Maintenance, 01/27/20 19:13:00 EDT, EC Capsule, [facility]/pharmacy #1026, 167, cm, 01/13/20 8:54:00 EDT, [...] tablet, 2 Refills, Maintenance, 01/22/20 9:38:00 EDT, [facility]/pharmacy #1026, 167, cm, 01/13/20 8:54:00 EDT,... [...] capsule, 3 Refills, Maintenance, 06/30/20 14:54:00 EDT, [facility]/pharmacy #1026, 160, cm, 06/12/20 9:01:00 EST, Height, 80.6, kg, 06/03/20 19:00:00 EST, Dry Weight Start Date: 06/30/20 Stop Date: 06/25/21 Status: Ordered ketotifen 0.025% ophthalmic solution 1 drops, Eyes, Both, Every 12 hours, PRN as needed for eye allergy, # 7.5 mL, 11 Refills, Maintenance, 01/27/20 19:13:00 EDT, [facility]/pharmacy #1026, 1 drops Eyes, Both Every [...] 06/24/20 9:08:00 EDT, Route to Pharmacy Electronically, [facility]/pharmacy #1026, 160, cm, 06/12/20 9:01:00 EST, Height, 80... Start Date: 06/24/20 Status: Ordered NovoLOG FlexPen 100 units/mL subcutaneous solution See Instructions, Inject up to 26 untis via Insulin sliding scale 3x a day w/meals,MAX daily dose 78 units, E11.65, # 45 mL, 6 Refills, Maintenance, 01/21/20 14:30:00 EDT, [facility]/pharmacy #1026, 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 Start Date: 01/21/20 Status: Ordered Sqx-fpl-gyovs medical-grade oxford diabetic shoes, depth or hightop Syi-qbg-vbnll medical-grade oxford diabetic shoes, depth or hightop, [...] 07/10/20 Stop Date: 08/07/20 Status: Ordered Pen [place], 32 G x 4 mm BD Ultra [...] 02/10/20 11:22:00 EST, Route to Pharmacy Electronically, [facility]/pharmacy #1026 Tablet, 167, cm, 01/13/20 8:5... [...] 05/01/20 9:28:00 EST, Route to Pharmacy Electronically, [facility]/pharmacy #1026, 167,... Start Date: 05/01/20 Status: Ordered TENS electrode pads TENS electrode pads, See Instructions, # 1 box, Refills 5, Tot. Refills 5, Maintenance, use as directed for back pain Dx LBP M54.9 1 box of 4, 12/06/16 14:59:01, Compound Start Date: 12/06/16 Status: Ordered Trelegy Ellipta inhalation powder 1 puffs, Inhalation, Daily, at the same time every day given by senior mobile solutions architect , Dr Berkowitz, # 60 each, 0 [...] Date: 06/12/20 Stop Date: 09/04/20 Status: Ordered [place] Reusable Bed Pad 34 x 36 [place] Reusable Bed Pad 34 x 36 , [...] apnea)(Confirmed) Active Osteopenia(Confirmed) 18, 19 11/16/12 Active *[id number] Care Partn igor More(Confirmed) Active Peripheral venous [...] 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 06/16/08 SURGEON: Danny Marie M.D. ASSEMBLER MUSICAL EQUIPMENT: Naima Bowling M.D. 21b/l submassive PE diagnosed on Dec 20 in [facility] 22TTE 12/22/15 in [facility]: RV dilatation, RVSP 46 23Per ECHO 05/24/17 Trace mitral regurgitation , trace TC regurgitation w no significant valve pathology 24meg colo July 2009 exc for 2 hyperplastic polyps 25[address]oscopy [address] [facility] [place] per letter of Dr Amor Dobbins Social History Social History Type Response Smoking Status Never (less than 100 in lifetime) entered on: 06/12/20 Sex
--- OUTSIDE RECORDS SUMMARY | 2023-10-23 09:40 | XMS_ITS | Continuity of Care Document ---
Author Organization [facility] Address [address] [place] [address]- Care Team Providers Care Cloth Examiner Machine Name Role Phone Gayathri GARZA, Florinda Primary Care Physician Encounter [facility] Date(s): 03/31/22 - 04/30/22 [facility] [address] [place] [address]- Attending Physician: Yaya Patino Admitting Physician: Yaya Patino Referring Physician: AdmtrYaya Allergies, Adverse Reactions, Alerts Substance Reaction Severity Status penicillin RASH Active morphine itchy Active Lidocaine, Topical Active Bactrim 1 hyperkalemia Active 1Hyperkalemia when used together with lisinopril Immunizations Given and Recorded Vaccine Date Status Refusal Reason zoster vaccine, inactivated 12/08/21 Given zoster vaccine, inactivated 09/15/21 Given SARS-CoV-2 mRNA ([id number]) vax 09/15/21 Given SARS-CoV-2 (COVID-19) mRNA BNT-162b2 [...] 05/11/22 13:10:00 EST, 04/13/22 13:10:00 EST, Tablet, [facility], Partial fill upo... Start Date: 04/13/22 Stop Date: 05/11/22 Status: Ordered acetaminophen-hydrocodone 300 mg-7.5 mg oral tablet 2 tablet, By Mouth, Every 8 hours, for 28 days, for pain fill date 05/11/2022 Dx Chronic LBP, renal colic, # 168 tablet, 0 Refills, Acute 06/08/22 13:10:00 EST, 05/11/22 13:10:00 EST, Tablet, [facility], Partial fill upo... Start Date: 05/11/22 Stop [...] Gm, 11 Refills, Maintenance, 07/21/21 12:43:00 EDT, [facility]/pharmacy #1026, 1 applicator [...] needed for anxiety and 1tab at HS [id number], # 60 tablet, 11 Refills, Maintenance, 09/15/21 9:02:00 EDT, [facility]/pharmacy #1026, Partial fill upon patient request... Start Date: 09/15/21 Status: Ordered capsaicin 0.025% topical cream 1 application, Topically, 3 times a day, # 35 Gm, 11 Refills, Maintenance, 07/21/21 12:26:00 EDT, Cream, [facility]/pharmacy #1026, 1 application [...] 11 Refills, Maintenance, 12/06/21 15:04:00 EDT, Tablet, [facility], Partial fill upon [...] tablet, 3 Refills, Maintenance, 07/12/21 18:53:00 EDT, Tablet,[facility]/pharmacy #1026, Discontinue 30- day supply presc... Start Date: 07/12/21 Stop Date: 07/07/22 Status: Ordered ferrous sulfate 325 mg oral tablet 1 tablet = 325 mg, By Mouth, Daily, May take with food to minimize abdominal discomfort. Do not take with milk. Take preferrably with juice., # 90 tablet, 3 Refills, Maintenance, 09/15/21 8:56:00 EDT, [facility]/pharmacy #1026, 160, cm, 09/15/21 8:15:00 [...] 04/19/22 10:15:00 EST, Route to Pharmacy Electronically, [facility]/pharmacy #0850, Partial fill upon patient request if the prescription is for a schedule II opioi... Start Date: 04/19/22 Status: Ordered ketotifen 0.025% ophthalmic solution 1 drops, Eyes, Both, Every 12 hours, PRN as needed for eye allergy, # 7.5 mL, 11 Refills, Maintenance, 06/25/21 8:34:00 EDT, [facility]/pharmacy #1026, 1 drops [...] 90 tablet, 3 Refills, 03/09/22 11:57:00 EST, [facility]/pharmacy #0838, 1 tablet By Mouth Daily before dinner,PRN:allergies, 160, cm, 03/09/22 10:43:00 EST, Height, 78, kg, 01/14/22 19:37:00 ED... Start Date: 03/09/22 Status: Ordered montelukast 10 mg oral tablet 10 mg, 1, tablet, By Mouth, Daily at bedtime, # 90 tablet, Refills 3, Tot. Refills 3, Maintenance, 03/09/22 11:37:00 EST, Route to Pharmacy Electronically, [facility]/pharmacy #0838, 160, cm, 03/09/22 10:43:00 EST, Height, 78, kg, 01/14/22 19:37:00 EDT, Dry... Start Date: 03/09/22 Stop Date: 03/04/23 Status: Ordered Nexium 40 mg oral enteric coated capsule 1 capsule = 40 mg, By Mouth, Daily, 30 minutes before breakfast, # 30 capsule, 11 Refills, Maintenance, 04/28/21 14:00:00 EST, [facility]/pharmacy #1026, Discontinue pantoprazole, 160, cm, 04/28/21 9:50:00 EST, Height, 80.6, kg, 06/03/20 19:00:00 EST, Dry We... Start Date: 04/28/21 Stop Date: 04/23/22 Status: Ordered Norvasc 5 mg oral tablet 5 mg, 1, tablet, By Mouth, Daily, # 90 tablet, Refills 3, Tot. 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 Start Date: 03/09/22 Status: Ordered Umr-bmo-bqqus medical-grade oxford diabetic shoes, depth or hightop Nkx-spm-gvhqr medical-grade oxford diabetic shoes, depth or hightop, [...] Weight Start Date: 03/09/22 Status: Ordered Pen [place], 32 G x 4 mm BD Ultra [...] the same time every day Given by Heel Compressor, Dr. 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 06/16/08 SURGEON: Danny Marie M.D. NURSING DEPARTMENT CHAIRPERSON: Naima Bowling M.D. 22b/l submassive PE diagnosed on Dec 20 in [facility] 23TTE 12/22/15 in [facility]: RV dilatation, RVSP 46 24Per ECHO 05/24/17 Trace mitral regurgitation , trace TC regurgitation w no significant valve pathology 25meg colo July 2009 exc for 2 hyperplastic polyps 26Colonoscopy 2004 at [facility] [place] per letter of Dr Amor Dobbins Social History Social History Type Response Smoking Status Never (less than 100 in lifetime) entered on: 10/22/20 Sex Patient Care team information Care Team Personnel Name: Diamond Weiss RN Position: [facility] RN Member Role: Primary Care Nurse Name: Tiara Cavazos RN Position: [facility] OB RN Member Role: Primary Care Nurse Name: Shreya Boss RN Position: [facility] RN Member Role: Primary Care Nurse Name: Virginia Benson RN Position: [facility] RN Member Role: Primary Care Nurse Name: Jaylin Hernandez RN Position: [facility] Onco RN Member Role: Primary Care Nurse Name: Glen Cota MD Position: [facility] Renal MD Member Role: Lifetime Consulting Physician Address: Address: [address] [place] [address] [facility] [address] Name: Florinda Trinh MD Position: [facility] Primary Care Physician Member Role: PCP Address: Address: [address] [place] [address] Care Team Related Persons Name: JOSE ELIAS TODD Address: [place] [address] Name: JOSE ELIAS KIRKLAND Address: home [address] [place] [id number] Name: LEONIE SCHRADER Address: [place] [address]
--- OUTSIDE RECORDS SUMMARY | 2023-10-23 09:40 | XMS_ITS | Continuity of Care Document ---
Author Organization [facility] Address [address] [place] [address]- Care Team Providers Care Clinical Data Assistant Name Role Phone Florinda Trinh MD Primary Care Physician Encounter [facility] Date(s): 06/21/21 - 07/21/21 [facility] [address] [place] [address]- Attending Physician: Yaya Patino Admitting Physician: Admtr, Ar8 Referring Physician: Admtr, Ar8 Allergies, Adverse Reactions, [...] gambian, # 100 tablet, 11 Refills, Maintenance, 04/28/21 13:24:00 EST, [facility]/pharmacy #1026, 160, cm, 04/28/21 9:50:00 EST, Height, [...] Biotene Moisturizing Mouth oral spray See Instructions, Carbon directly into mouth; spray is safe to swallow as needed for dry mouth, # 45mL, 11 Refills, Maintenance, 07/21/21 12:43:00 EDT, [facility]/pharmacy #1026, Carbon directly into mouth; spray is safe to [...] Maintenance, 07/21/21 12:26:00 EDT, Cream, [facility]/pharmacy #1026, 1 application Topically 3 times a [...] Maintenance, 04/21/21 18:12:00 EST, Tablet, [facility]/pharmacy #1026, 160, cm, 03/03/21 11:23:00 EST, Height, 80.6, kg, 06/03/20 19:00:00 EST, Dry Weight Start Date: 04/21/21 Status: Ordered escitalopram 20 mg oral tablet 1 tablet = 20 mg, By Mouth, Daily, Discontinue duloxetine 60 mg, # 30 tablet, 11 Refills, Maintenance, 12/09/20 11:15:00 EDT, Tablet, [facility]/pharmacy #1026, Partial fill upon patient request if [...] EST, Route to Pharmacy Electronically, [facility]/pharmacy #1026, Can use with HCTZ, 160, cm, [...] capsule, 3 Refills, Maintenance, 10/22/20 10:35:00 EDT, [facility]/pharmacy #1026, 160, cm, 10/22/20 9:15:00 EDT, Height, [...] DAILY, E11.65, # 90 tablet, 2 Refills, [facility] STORE [id number], 160, cm, 06/21/21 9:57:00 EDT, Height, 80.6, [...] Refills, Maintenance, 01/21/20 14:30:00 EDT, 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 Start Date: 01/21/20 Status: Ordered Lsl-rqp-djsfu medical-grade oxford diabetic shoes, depth or hightop Rns-gnc-vaujw medical-grade oxford diabetic shoes, depth or hightop, [...] Date: 07/12/21 Stop Date: 08/09/21 Status: Ordered oxyCODONE 5 mg oral tablet [...] 10/04/21 Stop Date: 11/01/21 Status: Ordered Pen [place], 32 G x 4 mm BD Ultra [...] EST, Route to Pharmacy Electronically, [facility]/pharmacy #1026, 160... Start Date: 04/28/21 Stop Date: [...] Refills, Maintenance, 01/27/20 19:13:00 EDT, [facility]/pharmacy #1026, 17- 34 Gm By Mouth Daily,PRN:asneeded [...] Maintenance, 04/28/21 14:03:00 EST, Tablet, [facility]/pharmacy #1026, 160, cm, 04/28/21 9:50:00 EST, Height, 80.6, kg, 06/03/20 19:00:00 EST, Dry Weight Start Date: 04/28/21 Status: Ordered Senna-Time 8.6 mg oral tablet 2 tablet, By Mouth, 2 times a day, PRN NEEDED FOR CONSTIPATION,INSTR, DISCONTINUE DOCUSATE, # 60tablet, 11 Refills, [facility] STORE [id number], 160, cm, 03/03/21 11:23:00 EST, Height, 80.6, [...] EST, Route to Pharmacy Electronically, [facility]/pharmacy #1026, 1... Start Date: 02/22/21 Status: Ordered [...] 02/15/21 11:39:00 EST, Route to Pharmacy Electronically, [facility]/pharmacy #1026,Partial fill upon patient request if the prescrip... Start Date: 02/15/21 Stop Date: 03/29/21 Status: Ordered Trelegy Ellipta inhalation powder 1 puffs, Inhalation, Daily, at the same time every day Given by Power Switchboard Operator, Dr. Michael Berkowitz, # 60 each, 0 Refills, Maintenance, 07/21/21 11:59:00 EDT, Powder, Partial fill upon patient request if the prescription is for a schedule II opi... Start Date: 07/21/21 Status: Ordered Tresiba FlexTouch 200 units/mL subcutaneous solution See Instructions, INJECT 86 UNITS DAILY AT 9PM, # 45 Unknown, 6 Refills, [id number], 160, cm, 06/21/21 9:57:00 EDT, Height, 80.6, kg, 06/03/20 19:00:00 EST, Dry Weight Start Date: 06/22/21 Status: Ordered Ventolin HFA 108 mcg/inh inhalation aerosol with adapter 2 puffs, Inhalation, 4 times a day, PRN Wheezing/Shortness of Breath, dispense when patient requestit, # 18 Gm, 5 Refills, Maintenance, 11/09/20 12:36:00 EDT, [facility]/pharmacy #1026, 160, cm, 10/22/20 9:15:00 EDT, Height, 80.6, kg, 06/03/20 19:00:00 EST,... Start Date: 11/09/20 Status: Ordered Voltaren 1% topical gel = 2 Gm, Topically, 4 times a day, # 100 Gm, 5 Refills, Maintenance, 02/15/21 11:40:00 EST, [facility]/pharmacy #1026, 2 Gm Topically 4 times a day,x14 days, 160, cm, 02/15/21 8:47:00 EST, Height, 80.6, kg, 06/03/20 19:00:00 EST, Dry Weight Start Date: 02/15/21 Stop Date: 05/10/21 Status: Ordered [place] Reusable Bed Pad 34 x 36 [place] Reusable Bed Pad 34 x 36 , [...] 11 Refills, Maintenance, 10/22/20 10:19:00 EDT, Tablet, 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 06/16/08 SURGEON: Danny Marie M.D. DICE PERSON: Naima Bowling M.D. 21b/l submassive PE diagnosed on Dec 20 in [facility] 22TTE 12/22/15 in [facility]: RV dilatation, RVSP 46 23Per ECHO 05/24/17 Trace mitral regurgitation , trace TC regurgitation w no significant valve pathology 24meg colo July 2009 exc for 2 hyperplastic polyps 25Colonoscopy 2004 at [facility] [place] per letter of Dr Amor Dobbins Social History Social History Type Response Smoking Status Never (less than 100 in lifetime) entered on: 10/22/20 Sex
--- OUTSIDE RECORDS SUMMARY | 2023-10-23 09:40 | XMS_ITS | Continuity of Care Document ---
Author Organization [facility] Address Unknown Care Team Providers Care Consumer Recruiter Name Role Phone Gayathri GARZA, Florinda Primary Care Physician [place] [facility] [place] 08/20/21 [facility] Allergies, Adverse Reactions, Alerts Substance [...] or fever, (not to exceed 2000 mg/day) v[place] citizen, # 100 tablet, 11 Refills, Maintenance, 04/28/21 13:24:00 EST, [facility]/pharmacy #[id number], 160, cm, 04/28/21 9:50:00 [...] Biotene Moisturizing Mouth oral spray See Instructions, [place] directly into mouth; spray is safe to swallow as needed for dry mouth, # 45mL, 11 Refills, Maintenance, 07/21/21 12:43:00 EDT, [facility], [place] directly into mouth; spray is safe to [...] 11 Refills, Maintenance, 04/21/21 18:12:00 EST, Tablet, [facility]/pharmacy #1026, 160, cm, 03/03/21 11:23:00 [...] 04/28/21 14:34:00 EST, Route to Pharmacy Electronically, [facility]/pharmacy #1026, Can use with HCTZ, [...] capsule, 3 Refills, Maintenance, 10/22/20 10:35:00 EDT, [facility]/pharmacy #1026, 160, cm, 10/22/20 9:15:00 EDT, Height, 80.6, kg, 06/03/20 19:00:00 EST, Dry Weight Start Date: 10/22/20 Stop Date: 10/17/21 Status: Ordered ketotifen 0.025% ophthalmic solution 1 drops, Eyes, Both, Every 12 hours, PRN as needed for eye allergy, # 7.5 mL, 11 Refills, Maintenance, 06/25/21 8:34:00 EDT, [facility]/pharmacy #1026, 1 drops Eyes, Both [...] DAILY, E11.65, # 90 tablet, 2 Refills, [facility] ST[facility] [id number], 160, cm, 06/21/21 9:57:00 EDT, Height, 80.6, [...] 78.8, kg,... Start Date: 01/21/20 Status: Ordered Dtz-oou-akjwy medical-grade oxford diabetic shoes, depth or hightop Bsu-cde-ijwwh medical-grade oxford diabetic shoes, depth or hightop, [...] 10/04/21 Stop Date: 11/01/21 Status: Ordered Pen [place], 32 G x 4 mm BD Ultra [...] 04/28/21 14:02:00 EST, Route to Pharmacy Electronically, [facility]/pharmacy #1026, 160... Start Date: 04/28/21 [...] 527 Gm,11 Refills, Maintenance, 01/27/20 19:13:00 EDT, [facility]/pharmacy #1026, 17- 34 Gm By [...] 11 Refills, Maintenance, 04/28/21 14:03:00 EST, Tablet, [facility]/pharmacy #1026, 160, cm, 04/28/21 9:50:00 EST, Height, 80.6, kg, 06/03/20 19:00:00 EST, Dry Weight Start Date: 04/28/21 Status: Ordered Senna-Time 8.6 mg oral tablet 2 tablet, By Mouth, 2 times a day, PRN NEEDED FOR CONSTIPATION,INSTR, DISCONTINUE DOCUSATE, # 60tablet, 11 Refills, [facility] [id number], 160, cm, 03/03/21 11:23:00 EST, Height, 80.6, [...] 02/22/21 17:50:00 EST, Route to Pharmacy Electronically, [facility]/pharmacy #1026, 1... Start Date: 02/22/21 [...] 02/15/21 11:39:00 EST, Route to Pharmacy Electronically, [facility]/pharmacy #1026,Partial fill upon patient request if the prescrip... Start Date: 02/15/21 Stop Date: 03/29/21 Status: Ordered Trelegy Ellipta inhalation powder 1 puffs, Inhalation, Daily, at the same time every day Given by Pearl Cutter, Dr. Michael Berkowitz, # 60 each, 0 Refills, Maintenance, 07/21/21 11:59:00 EDT, Powder, Partial fill upon patient request if the prescription is for a schedule II opi... Start Date: 07/21/21 Status: Ordered Tresiba FlexTouch 200 units/mL subcutaneous solution See Instructions, INJECT 86 UNITS DAILY AT 9PM, # 45 Unknown, 6 Refills, [facility] [id number], 160, cm, 06/21/21 9:57:00 EDT, Height, 80.6, kg, 06/03/20 19:00:00 EST, Dry Weight Start Date: 06/22/21 Status: Ordered Ventolin HFA 108 mcg/inh inhalation aerosol with adapter 2 puffs, Inhalation, 4 times a day, PRN Wheezing/Shortness of Breath, dispense when patient requestit, # 18 Gm, 5 Refills, Maintenance, 11/09/20 12:36:00 EDT, [facility]/pharmacy #1026, 160, cm, 10/22/20 9:15:00 [...] Date: 02/15/21 Stop Date: 05/10/21 Status: Ordered Jewell Reusable Bed Pad 34 x 36 Jewell Reusable Bed Pad 34 x 36 , [...] abnormal(Confirmed) 11 12/29/11 Active Hepatitis C(Confirmed) Active alf current use of opi ate analgesic-LBP(Confirmed) 12 [...] apnea)(Confirmed) Active Osteopenia(Confirmed) 18, 19 11/16/12 Active *[id number] [facility](Confirmed) Active Peripheral venous insufficiency(Confirmed) 10/31/11 Active [...] mild sensorineural hearing loss by [facility] Hearing Evaluation on 12/29/11 12Narcotic [...] lower parathyroidectomy. 06/16/08 SURGEON: Danny Marie M.D. COMMERCIAL COLLECTOR: Naima Bowling M.D. 21b/l submassive PE diagnosed on Dec 20 in [facility] 22TTE 12/22/15 in [facility]: RV dilatation, RVSP 46 23Per ECHO 05/24/17 Trace mitral regurgitation , trace TC regurgitation w no significant valve pathology 24meg colo July 2009 exc for 2 hyperplastic polyps 25Colonoscopy 2004 at [facility] [place] per letter of Dr Amor Dobbins Social History Social History Type Response Smoking Status Never (less than 100 in lifetime) entered on: 10/22/20 Sex
--- OUTSIDE RECORDS SUMMARY | 2023-10-23 09:40 | XMS_ITS | Continuity of Care Document ---
Author Organization [facility] Address [address] [place] [id number]- Care Team Providers Care Dock Builder Name Role Phone Florinda Trinh MD Primary Care Physician Encounter [facility] [place] Date(s): 11/05/21 - 12/05/[address] [id number] Attending Physician: Admaura, Yaya Admitting Physician: Admtr, Ar8 Referring Physician: Admtr, Ar8 Allergies, Adverse Reactions, Alerts Substance Reaction Severity Status penicillin RASH Active morphine itchy Active Bactrim 1 hyperkalemia Active Lidocaine, Topical Active 1Hyperkalemia when used together with lisinopril Immunizations Given and Recorded Vaccine Date Status Refusal Reason zoster vaccine, inactivated 09/15/21 Given SARS-CoV-2 mRNA ([id number]) vax 09/15/21 Given SARS-CoV-2 (COVID-19) mRNA BNT-162b2 [...] or fever, (not to exceed 2000 mg/day) libyan, # 100 tablet, 11 Refills, Maintenance, 04/28/21 13:24:00 EST, [facility]/pharmacy #1026, 160, cm, 04/28/21 9:50:00 [...] 11 Refills, Maintenance, 07/21/21 12:43:00 EDT, [facility]/pharmacy #1026, 1 applicator Topically 2 times a day, 160, cm, 07/21/21 10:22:00 EDT, Height, 80.6, kg, 06/03/20 19:00:00 EST, Dry Weight Start Date: 07/21/21 Status: Ordered Baqsimi Two Pack 3 mg nasal powder = 3 mg, Naris, Right, Once, Please use for a low blood sugar emergency, may repeat in 15 minutes, #2 each, 3 Refills, Soft Stop, 06/26/20 7:30:00 EDT, [facility]/pharmacy #1026, Partial fill upon patient request if the prescription is for a schedule II op... Start Date: 06/26/20 Status: Ordered Biotene Moisturizing Mouth oral spray See Instructions, [place] directly into mouth; spray is safe to swallow as needed for dry mouth, # 45mL, 11 Refills, Maintenance, 07/21/21 12:43:00 EDT, [facility], [place] directly into mouth; spray is safe to [...] needed for anxiety and 1tab at HS pxoqhj-ehq-dzirn, # 60 tablet, 11 Refills, Maintenance, 09/15/21 9:02:00 EDT, [facility]/pharmacy #1026, Partial fill upon patient [...] 11 Refills, Maintenance, 04/21/21 18:12:00 EST, Tablet, [facility], 160, cm, 03/03/21 11:23:00 EST, Height, 80.6, kg, 06/03/20 19:00:00 EST, Dry Weight Start Date: 04/21/21 Status: Ordered escitalopram 20 mg oral tablet 1 tablet = 20 mg, By Mouth, Daily, Discontinue duloxetine 60 mg, # 30 tablet, 11 Refills, Maintenance, 12/09/20 11:15:00 EDT, Tablet, [facility]/pharmacy #1026, Partial fill upon patient [...] 3 Refills, Maintenance, 07/12/21 18:53:00 EDT, Tablet,[facility]1026, Discontinue 30- day supply presc... Start Date: 07/12/21 Stop Date: 07/07/22 Status: Ordered ferrous sulfate 325 mg oral tablet 1 tablet = 325 mg, By Mouth, Daily, May take with food to minimize abdominal discomfort. Do not take with milk. Take preferrably with juice., # 90 tablet, 3 Refills, Maintenance, 09/15/21 8:56:00 EDT, [facility]/pharmacy #1026, 160, cm, 09/15/21 8:15:00 [...] 04/28/21 14:34:00 EST, Route to Pharmacy Electronically, [facility]/pharmacy #1026, Can use with HCTZ, [...] capsule, 3 Refills, Maintenance, 11/19/21 14:28:00 EDT, [facility]/pharmacy #1026, 160, cm, 11/05/21 9:50:00 EDT, Height, 80.5, kg, 11/05/21 9:50:00 EDT, Dry Weight Start Date: 11/19/21 Stop Date: 11/14/22 Status: Ordered ketotifen 0.025% ophthalmic solution 1 drops, Eyes, Both, Every 12 hours, PRN as needed for eye allergy, # 7.5 mL, 11 Refills, Maintenance, 06/25/21 8:34:00 EDT, [facility]/pharmacy #1026, 1 drops Eyes, Both [...] LOS HDZ, # 90 tablet, 1 Refills, [facility] ST[facility] 84444, 90, TOME GAGE TABLETA POR VIA ORAL TODOS LOS HDZ, 160, cm, 09/21/21 8:54:00 EDT, Height, 80.6,kg, 06/03/20 19:00:00 EST, Dry Weight Start Date: 10/13/21 Status: Ordered Nexium 40 mg oral enteric coated capsule 1 capsule = 40 mg, By Mouth, Daily, 30 minutes before breakfast, # 30 capsule, 11 Refills, Maintenance, 04/28/21 14:00:00 EST, [facility]/pharmacy #1026, Discontinue pantoprazole, 160, cm, [...] 0 Refills, Maintenance, 09/21/21 9:23:00 EDT, Tablet, [facility], P... Start Date: 09/21/21 Status: Ordered Norvasc 5 mg oral tablet 5 mg, 1, tablet, By Mouth, Daily, # 30 tablet, Refills 0, Tot. Refills 0, Maintenance, 09/21/21 9:23:00 EDT, Route to Pharmacy Electronically, [facility], Partial fill upon patient request if the prescription is for a schedule II o... Start Date: 09/21/21 Status: Ordered NovoLOG FlexPen 100 units/mL subcutaneous solution See Instructions, Inject up to 26 untis via Insulin sliding scale 3x a day w/meals,MAX daily dose 78 units, E11.65, # 45 mL, 6 Refills, Maintenance, 01/21/20 14:30:00 EDT, [facility]/pharmacy #1026, 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 Start Date: 01/21/20 Status: Ordered Bux-nsi-pllrs medical-grade oxford diabetic shoes, depth or hightop Pzt-bri-ebfkz medical-grade oxford diabetic shoes, depth or hightop, [...] 11/29/21 Stop Date: 12/27/21 Status: Ordered Pen [place], 32 G x 4 mm BD Ultra [...] 04/28/21 14:02:00 EST, Route to Pharmacy Electronically, [facility]/pharmacy #1026, 160... Start Date: 04/28/21 [...] 527 Gm,11 Refills, Maintenance, 01/27/20 19:13:00 EDT, [facility]/pharmacy #1026, 17- 34 Gm By [...] 11 Refills, Maintenance, 04/28/21 14:03:00 EST, Tablet, [facility]/pharmacy #1026, 160, cm, 04/28/21 9:50:00 EST, Height, 80.6, kg, 06/03/20 19:00:00 EST, Dry Weight Start Date: 04/28/21 Status: Ordered Senna-Time 8.6 mg oral tablet 2 tablet, By Mouth, 2 times a day, PRN NEEDED FOR CONSTIPATION,INSTR, DISCONTINUE DOCUSATE, # 60tablet, 11 Refills, [facility] ST[facility] [id number], 160, cm, 03/03/21 11:23:00 EST, Height, 80.6, [...] 02/22/21 17:50:00 EST, Route to Pharmacy Electronically, [facility]/pharmacy #1026, 1... Start Date: 02/22/21 Status: Ordered tamsulosin 0.4 mg oral capsule See Instructions, TOME 1 CAPSULA POR VIA ORAL TODOS LOS HDZ, # 30 capsule, Refills 0, InstructionsReplace Required Details, Route to Pharmacy Electronically, [facility] STORE 65079, 160, cm, 09/21/21 8:54:00 EDT, Height, 80.6, [...] 09/15/21 9:03:00 EDT, Route to Pharmacy Electronically, [facility]/pharmacy #1026, Partial fill upon patient request if the prescri... Start Date: 09/15/21 Stop Date: 03/02/22 Status: Ordered Trelegy Ellipta inhalation powder 1 puffs, Inhalation, Daily, at the same time every day Given by Assistant Vice President, Dr. Michael Berkowitz, # 60 each, 0 Refills, Maintenance, 07/21/21 11:59:00 EDT, Powder, Partial fill upon patient request if the prescription is for a schedule II opi... Start Date: 07/21/21 Status: Ordered Tresiba FlexTouch 200 units/mL subcutaneous solution See Instructions, INJECT 86 UNITS DAILY AT 9PM, # 45 Unknown, 6 Refills, [facility] ST[facility] 47711, 160, cm, 06/21/21 9:57:00 EDT, Height, 80.6, kg, 06/03/20 19:00:00 EST, Dry Weight Start Date: 06/22/21 Status: Ordered Ventolin HFA 108 mcg/inh inhalation aerosol with adapter 2 puffs, Inhalation, 4 times a day, PRN Wheezing/Shortness of Breath, dispense when patient requestit, # 18 Gm, 5 Refills, Maintenance, 11/09/20 12:36:00 EDT, 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 06/16/08 SURGEON: Danny Marie M.D. GEOMORPHOLOGIST: Naima Bowling M.D. 22b/l submassive PE diagnosed on Dec 20 in [facility] 23TTE 12/22/15 in [facility]: RV dilatation, RVSP 46 24Per ECHO 2/14/18 Trace mitral regurgitation , trace TC regurgitation w no significant valve pathology 25meg colo July 2009 exc for 2 hyperplastic polyps 26Colonoscopy 2004 at [facility] [place] per letter of Dr Amor Dobbins Social History Social History Type Response Smoking Status Never (less than 100 in lifetime) entered on: 10/22/20 Sex Care Team Personnel Name: Gayathri GARZA, Florinda Address: [address] [place] [address]
--- OUTSIDE RECORDS SUMMARY | 2023-10-23 09:40 | XMS_ITS | Continuity of Care Document ---
Author Organization [facility] Address [address] [place] [id number]- Care Team Providers Care Boat Canvas Installer Name Role Phone Gayathri GARZA, Florinda Primary Care Physician Encounter [facility] [place] Date(s): 05/22/20 - 05/22/[address] [address]- Discharge Disposition: A-D/C Walkout Attending Physician: Not on Staff, Attending MD [...] exceed 2000 mg/day) macedonian, # 100 tablet, 5 Refills, Maintenance, 01/22/20 [...] 19:13:00 EDT, 01/27/20 19:13:00 EDT, Tablet, [facility]/pharmacy #1026, 167, cm, 01/13/20 8:54:00 EDT, Height, 78.8, kg, 01/01/20 3:41:00 EDT, Dry... Start Date: 01/27/20 Stop Date: 01/21/21 Status: Ordered capsaicin 0.025% topical cream 1 application, Topically, 3 times a day, # 90 Gm, 11 Refills, Maintenance, 02/10/20 11:22:00 EST, Cream, [facility]/pharmacy #1026, 1 application [...] Maintenance, 01/27/20 19:13:00 EDT, EC Capsule, [facility]/pharmacy #1026, 167, cm, 01/13/20 8:54:00 EDT, Height, 78.8, kg, 01/01/20 3:41:00 EDT, Dry Weight Start Date: 01/27/20 Status: Ordered Eliquis 5 mg oral tablet 1 tablet = 5 mg, By Mouth, 2 times a day, # 60 tablet, 11 Refills, Maintenance, 02/10/20 11:22:00 EST, Tablet, [facility]/pharmacy #1026, 167, cm, 01/13/20 8:54:00 EDT, Height, 78.8, kg, 01/01/20 3:41:00 EDT, Dry Weight Start Date: 02/10/20 Status: Ordered enalapril 10 mg oral tablet 10 mg, 1, tablet, By Mouth, Daily, discontinue hydrochlorothiazide, # 30 tablet, Refills 11, Tot. Refills 11, Maintenance, 04/29/20 13:04:00 EST, Route to Pharmacy Electronically, [facility]/pharmacy #1026,167, cm, 04/29/20 9:24:00 EST, Height, 82, kg, ... Start Date: 04/29/20 Status: Ordered famotidine 40 mg oral tablet 1 tablet = 40 mg, By Mouth, Daily at bedtime, If 40 mg tablet is not available, can change to 20 mgtablet 2 tablet at bedtime, # 30 tablet, 2 Refills, Maintenance, 04/04/20 16:07:00 EST, Tablet, [facility]/pharmacy #1026, 167, cm, 02/24/20 17:04:00 EST, Hei... Start Date: 04/04/20 Status: Ordered ferrous sulfate 325 mg oral tablet 1 tablet = 325 mg, By Mouth, Daily, May take with food to minimize abdominal discomfort. Do not take with milk. Take preferrably with juice., # 90 tablet, 2 Refills, Maintenance, 01/22/20 9:38:00 EDT, [facility]/pharmacy #1026, 167, cm, 01/13/20 8:54:00 EDT,... [...] 4 Refills, Maintenance, 01/22/20 9:39:00 EDT, [facility]/pharmacy #1026, 167, cm, 01/13/20 8:54:00 EDT, Height, 78.8, kg, 01/01/20 3:41:00 EDT, Dry Weight Start Date: 01/22/20 Stop Date: 06/20/20 Status: Ordered ketotifen 0.025% ophthalmic solution 1 drops, Eyes, Both, Every 12 hours, PRN as needed for eye allergy, # 7.5 mL, 11 Refills, Maintenance, 01/27/20 19:13:00 EDT, [facility]/pharmacy #1026, 1 drops [...] 9:41:00 EDT, Route to Pharmacy Electronically, [facility]/pharmacy #1026, 167, cm, 01/13/20 8:54:00 EDT, Height, 78... Start Date: 01/22/20 Status: Ordered NovoLOG FlexPen 100 units/mL subcutaneous solution See Instructions, Inject up to 26 untis via Insulin sliding scale 3x a day w/meals,MAX daily dose 78 units, E11.65, # 45 mL, 6 Refills, Maintenance, 01/21/20 14:30:00 EDT, [facility]/pharmacy #1026, 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 Start Date: 01/21/20 Status: Ordered Rcx-piu-qrujr medical-grade oxford diabetic shoes, depth or hightop Qcc-szs-etfic medical-grade oxford diabetic shoes, depth or hightop, [...] 05/15/20 10:25:00 EST, Route toPharmacy Electronically, [facility]/pharmacy #1026, Parti... Start Date: 05/15/20 Stop Date: 06/12/20 Status: Ordered oxyCODONE 5 mg oral tablet 5 mg, 1, tablet, By Mouth, Every 4 hours, for 28 days, PRN pain dispense not earlier than 06/12/20, #168 tablet, Refills 0, Tot. Refills 0, Acute 07/10/20 10:25:00 EDT, 06/12/20 10:25:00 EST, Route toPharmacy Electronically, [facility]/pharmacy #1026, Parti... Start Date: 06/12/20 Stop Date: 07/10/20 Status: Ordered oxyCODONE 5 mg oral tablet 5 mg, 1, tablet, By Mouth, Every 4 hours, for 28 days, PRN pain dispense not earlier than 07/10/20, #168 tablet, Refills 0, Tot. Refills 0, Acute 08/07/20 10:25:00 EDT, 07/10/20 10:25:00 EDT, Route toPharmacy Electronically, [facility]/pharmacy #1026, Parti... Start Date: 07/10/20 Stop Date: 08/07/20 Status: Ordered Pen [place], 32 G x 4 mm BD Ultra [...] Refills, Maintenance, 01/27/20 19:13:00 EDT, [facility]/pharmacy #1026, 17- 34 Gm By Mouth [...] 11:22:00 EST, Route to Pharmacy Electronically, [facility]/pharmacy #1026 Tablet, 167, cm, 01/13/20 8:5... [...] 9:28:00 EST, Route to Pharmacy Electronically, [facility]/pharmacy #1026, 167,... Start Date: 05/01/20 Status: Ordered TENS electrode pads TENS electrode pads, See Instructions, # 1 box, Refills 5, Tot. Refills 5, Maintenance, use as directed for back pain Dx LBP M54.9 1 box of 4, 12/06/16 14:59:01, Compound Start Date: 12/06/16 Status: Ordered Trelegy Ellipta inhalation powder 1 puffs, Inhalation, Daily, at the same time every day given by retail attendant , Dr Berkowitz, # 60 each, 0 Refills, Maintenance, 11/20/19 13:03:00 EDT, Powder Start Date: 11/20/19 Status: Ordered Tresiba FlexTouch 200 units/mL subcutaneous solution See Instructions, Inject 86 units daily at 9pm, E11.65, # 45 mL, 6 Refills, Maintenance, 01/21/20 14:30:00 EDT, [facility]/pharmacy #1026, 167, cm, 01/13/20 8:54:00 EDT, Height, 78.8, kg, 01/01/20 3:41:00 EDT, Dry Weight Start Date: 01/21/20 Status: Ordered Ventolin HFA 108 mcg/inh inhalation aerosol with adapter 2 puffs, Inhalation, 4 times a day, PRN Wheezing/Shortness of Breath, dispense when patient requestit, # 18 Gm, 5 Refills, Maintenance, 01/22/20 9:19:00 EDT, [facility]/pharmacy #1026, 167, cm, 01/13/20 8:54:00 EDT, Height, 78.8, kg, 01/01/20 3:41:00 EDT, D... Start Date: 01/22/20 Status: Ordered Vitamin D3 1000 intl units oral tablet 1 tablet = 1,000 International_Units, By Mouth, Daily, # 90 tablet, 1 Refills, Maintenance, 04/15/20 12:22:00 EST, [facility]/pharmacy #1026, 167, cm, 04/13/20 10:16:00 EST, Height, 78.8, kg, 01/01/20 3:41:00 EDT, Dry Weight Start Date: 04/15/20 Status: Ordered [place] Reusable Bed Pad 34 x 36 [place] Reusable Bed Pad 34 x 36 , [...] abnormal(Confirmed) 11 12/29/11 Active Hepatitis C(Confirmed) Active halfway current use of opi ate analgesic-LBP(Confirmed) 12 [...] apnea)(Confirmed) Active Osteopenia(Confirmed) 18, 19 11/16/12 Active *[id number] [facility](Confirmed) Active Peripheral venous [...] 2 peroneal veins diagnosed on Dec 20 [facility] 6insulin dependent 7Per ECHO 05/24/1718 [...] mild sensorineural hearing loss by [facility] Hearing Evaluation on 12/29/11 12Narcotic contract [...] lower parathyroidectomy. 06/16/08 SURGEON: Danny Marie M.D. LADLE POURER: Naima Bowling M.D. 21b/l submassive PE diagnosed on Dec 20 in [facility] 22TTE 12/22/15 in [facility]: RV dilatation, RVSP 46 23Per ECHO 05/24/17 Trace mitral regurgitation , trace TC regurgitation w no significant valve pathology 24meg colo July 2009 exc for 2 hyperplastic polyps 25Colonoscopy 2004 at [facility] [place] per letter of Dr Amor Dobbins Results Radiology Reports * Exam Date Time Procedure Performing Provider Status 05/22/20 3:55 PM Chest 2 Views Frontal and Lat Odessa Ridley; Auth (Verified) Notes: (Chest 2 Views Frontal and Lat) Reason For Exam: Chest Pain;Other: RESULT: Chest 2 Views Frontal and Lat Chest 2 Views Frontal and Lat INDICATION/CLINICAL QUESTION: Flank pain. Chest pain. TECHNIQUE: Frontal and lateral views of the chest. COMPARISON: 04/13/2019. FINDINGS: LINES AND TUBES: None. LUNGS AND PLEURA: RIGHT CHEST: The right lung is clear and there is no right effusion. LEFT CHEST: The left lung is clear and there is no left effusion. HEART, MEDIASTINUM AND JARED: The heart is of normal size. The mediastinum and jared are normal. BONES AND SOFT TISSUES: No acute bony abnormality. IMPRESSION: 1. No active disease in chest. WSN: [id number] Ordering Physician: Amy Rueda Dictated By: Blane Andino MD Dictated Date/Time: 05/22/20 4:09 pm Reviewed By: Blane Andino MD Signed By: Blane Andino MD Signed Date/Time: 05/22/20 4:09 pm Transcribed By: AUGUSTINE Transcribed Date/Time: 05/22/20 4:08 pm Vital Signs Most recent to oldest [Reference Range]: 1 2 Oxygen Saturation [94-100 %] 99 % (05/22/20 3:46 PM) 100 % (05/22/20 11:35 AM) Pulse Rate [55-90 bpm] 78 bpm (05/22/20 3:46 PM) 83 bpm (05/22/20 11:35 AM) Blood Pressure [90-138/55-84 mm Hg] 132/ 80mm Hg (05/22/20 3:46 PM) 146/76mm Hg *H* (05/22/20 11:35 AM) Respiratory Rate [16-30 br/min] 18 br/mi n (05/22/20 3:46 PM) 18 br/min (05/22/20 11:35 AM) Temperature [96.8-100.4 DegF] 97.9 DegF (05/22/20 3:46 PM) 97.9 DegF (05/22/20 11:35 AM) Mode of Delivery (Oxygen) Room air (05/22/20 3:46 PM) Room air (05/22/20 11:35 AM) Blood pressure sites Arm, left (05/22/20 3:46 PM) Arm, left (05/22/20 11:35 AM) Temperature Route Oral (05/22/20 3:46 PM) Oral (05/22/20 11:35 AM) Social History Social History Type Response Smoking Status Never (less than 100 in lifetime) entered on: 04/29/20 Sex
--- OUTSIDE RECORDS SUMMARY | 2023-10-23 09:40 | XMS_ITS | Continuity of Care Document ---
Author Organization [facility] Address [address] [place] [address]- Care Team Providers Care Pet Nutrition Specialist Name Role Phone Gayathri GARZA, Florinda Primary Care Physician [facility] Date[facility]s): 04/02/20 - 05/02/20 [facility] [address] [place], [place] [address] Allergies, Adverse Reactions, Alerts Substance [...] or fever, (not to exceed 2000 mg/day) australian, # 100 tablet, 5 Refills, Maintenance, 01/22/20 9:18:00 EDT, [facility]/pharmacy #[id number], 167, cm, 01/13/20 8:54:00 EDT, Height, [...] 01/21/21 19:13:00 EDT, 01/27/20 19:13:00 EDT, Tablet, [facility]/pharmacy #1026, 167, cm, 01/13/20 8:54:00 EDT, Height, 78.8, kg, 01/01/20 3:41:00 EDT, Dry... Start Date: 01/27/20 Stop Date: 01/21/21 Status: Ordered capsaicin 0.025% topical cream 1 application, Topically, 3 times a day, # 90 Gm, 11 Refills, Maintenance, 02/10/20 11:22:00 EST, Cream, [facility]/pharmacy #[id number], 1 application Topically 3 times a [...] Refills, Maintenance, 01/27/20 19:13:00 EDT, EC Capsule, [facility]/pharmacy #1026, 167, cm, 01/13/20 8:54:00 EDT, Height, 78.8, kg, 01/01/20 3:41:00 EDT, Dry Weight Start Date: 01/27/20 Status: Ordered Eliquis 5 mg oral tablet 1 tablet = 5 mg, By Mouth, 2 times a day, # 60 tablet, 11 Refills, Maintenance, 02/10/20 11:22:00 EST, Tablet, [facility]/pharm[facility] #1026, 167, cm, 01/13/20 8:54:00 EDT, Height, 78.8, kg, 01/01/20 3:41:00 EDT, Dry Weight Start Date: 02/10/20 Status: Ordered enalapril 10 mg oral tablet 10 mg, 1, tablet, By Mouth, Daily, discontinue hydrochlorothiazide, # 30 tablet, Refills 11, Tot. Refills 11, Maintenance, 04/29/20 13:04:00 EST, Route to Pharmacy Electronically, [facility]/pharmacy #1026,167, cm, 04/29/20 9:24:00 EST, Height, 82, kg, ... Start Date: 04/29/20 Status: Ordered famotidine 40 mg oral tablet 1 tablet = 40 mg, By Mouth, Daily at bedtime, If 40 mg tablet is not available, can change to 20 mgtablet 2 tablet at bedtime, # 30 tablet, 2 Refills, Maintenance, 04/04/20 16:07:00 EST, Tablet, [facility] #1026, 167, cm, 02/24/20 17:04:00 EST, Hei... [...] capsule, 4 Refills, Maintenance, 01/22/20 9:39:00 EDT, [facility] #1026, 167, cm, 01/13/20 8:54:00 EDT, Height, [...] 01/22/20 9:41:00 EDT, Route to Pharmacy Electronically, [facility] #1026, 167, cm, 01/13/20 8:54:00 EDT, Height, 78... Start Date: 01/22/20 Status: Ordered NovoLOG FlexPen 100 units/mL subcutaneous solution See Instructions, Inject up to 26 untis via Insulin sliding scale 3x a day w/meals,MAX daily dose 78 units, E11.65, # 45 mL, 6 Refills, Maintenance, 01/21/20 14:30:00 EDT, [facility] #1026, 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 Start Date: 01/21/20 Status: Ordered Iej-bvs-ghzpd medical-grade oxford diabetic shoes, depth or hightop Sao-yga-blcng medical-grade oxford diabetic shoes, depth or hightop, [...] EST, 04/17/20 10:25:00 EST, Route toPharmacy Electronically, [facility] #1026, Parti... Start Date: 04/17/20 Stop Date: 05/15/20 Status: Ordered oxyCODONE 5 mg oral tablet 5 mg, 1, tablet, By Mouth, Every 4 hours, for 28 days, PRN pain dispense not earlier than 05/15/20, #168 tablet, Refills 0, Tot. Refills 0, Acute 06/12/20 10:25:00 EST, 05/15/20 10:25:00 EST, Route toPharmacy Electronically, [facility] #1026, Parti... Start Date: 05/15/20 Stop Date: 06/12/20 Status: Ordered oxyCODONE 5 mg oral tablet 5 mg, 1, tablet, By Mouth, Every 4 hours, for 28 days, PRN pain dispense not earlier than 06/12/20, #168 tablet, Refills 0, Tot. Refills 0, Acute 07/10/20 10:25:00 EDT, 06/12/20 10:25:00 EST, Route toPharmacy Electronically, [facility] #1026, Parti... Start Date: 06/12/20 Stop Date: 07/10/20 Status: Ordered oxyCODONE 5 mg oral tablet 5 mg, 1, tablet, By Mouth, Every 4 hours, for 28 days, PRN pain dispense not earlier than 07/10/20, #168 tablet, Refills 0, Tot. Refills 0, Acute 08/07/20 10:25:00 EDT, 07/10/20 10:25:00 EDT, Route toPharmacy Electronically, [facility]/pharm[facility] #1026, Parti... Start Date: 07/10/20 Stop Date: 08/07/20 Status: Ordered oxyCODONE 5 mg oral tablet 5 mg, 1, tablet, By Mouth, Every 4 hours, for 28 days, PRN pain dispense not earlier than 04/15/20 3 of 3, # 168 tablet, Refills 0, Tot. Refills 0, Acute 05/13/20 10:25:00 EST, 04/15/20 10:25:00 EST, Route to Pharmacy Electronically, [facility] #10... Start Date: 04/15/20 Stop Date: 05/13/20 Status: Ordered Pen [place], 32 G x 4 mm BD Ultra [...] 527 Gm,11 Refills, Maintenance, 01/27/20 19:13:00 EDT, [facility] #1026, 17- 34 Gm By Mouth Daily,PRN:asneeded [...] 02/10/20 11:22:00 EST, Route to Pharmacy Electronically, [facility] #1026 Tablet, 167, cm, 01/13/20 8:5... Start [...] 05/01/20 9:28:00 EST, Route to Pharmacy Electronically, [facility] #1026, 167,... Start Date: 05/01/20 Status: Ordered TENS electrode pads TENS electrode pads, See Instructions, # 1 box, Refills 5, Tot. Refills 5, Maintenance, use as directed for back pain Dx LBP M54.9 1 box of 4, 12/06/16 14:59:01, Compound Start Date: 12/06/16 Status: Ordered Trelegy Ellipta inhalation powder 1 puffs, Inhalation, Daily, at the same time every day given by manufacturing plant controller , Dr Berkowitz, # 60 each, 0 [...] Dry Weight Start Date: 04/15/20 Status: Ordered [place] Reusable Bed Pad 34 x 36 [place] Reusable Bed Pad 34 x 36 , [...] abnormal(Confirmed) 11 12/29/11 Active Hepatitis C(Confirmed) Active penitentiary current use of opi ate analgesic-LBP(Confirmed) 12 [...] apnea)(Confirmed) Active Osteopenia(Confirmed) 18, 19 11/16/12 Active *[id number] [facility] Active Peripheral venous insufficiency(Confirmed) 10/31/11 Active Positive [...] 2 peroneal veins diagnosed on Dec 20 [facility] 6insulin dependent 7Per ECHO 05/24/1718 [...] loss by [facility] Hearing Evaluation on 12/29/11 12Narcotic contract w [...] lower parathyroidectomy. 06/16/08 SURGEON: Danny Marie M.D. ECLECTIC DOCTOR: Naima Bowling M.D. 21b/l submassive PE diagnosed on Dec 20 in [facility] 22TTE 12/22/15 in [facility]: RV dilatation, RVSP 46 23Per ECHO 05/24/17 Trace mitral regurgitation , trace TC regurgitation w no significant valve pathology 24meg colo July 2009 exc for 2 hyperplastic polyps 25Colonoscopy 2005 at [facility] [place] per letter of Dr Amor Dobbins Social History Social History Type Response Smoking Status Never (less than 100 in lifetime) entered on: 04/29/20 Sex
--- OUTSIDE RECORDS SUMMARY | 2023-10-23 09:40 | XMS_ITS | Continuity of Care Document ---
Author Organization [facility] Address [address] [place] [address]- Care Team Providers Care Records Technician Name Role Phone Gayathri GARZA, Florinda Primary Care Physician [facility]counter [facility] Date(s): 04/24/20 - 05/24/20 [facility] [place] [address] [place] [address]- Allergies, Adverse Reactions, Alerts Substance Reaction Severity [...] Note: given by ELLIOTT HEWITT. 5Admin Note: DENNY CHIU RN 6Admin Note: administered by denny chiu 7Admin Note: ADMINISTERED BY R.NLizbet 8Result Comment: [05/13/2014] Ordered by Kendall 9Result Comment: [05/13/2014] Ordered by Kendall 10Result Comment: [10/16/2012] ORDERED BY 11Admin Note: VIS 01/13/09 GIVEN 12Admin Note: ADMINISTERED BY RN 13Admin Note: VIS 02/26/08 GIVEN Medications acetaminophen 500 mg oral tablet 2 tablet = 1,000 mg, By Mouth, Every 6 hours, PRN as needed for pain or fever, (not to exceed 2000 mg/day) mozambican, # 100 tablet, 5 Refills, Maintenance, 01/22/20 [...] Dry Weight Start Date: 01/27/20 Status: Ordered Bactrim DS 800 mg-160 mg oral tablet 1 tablet, By Mouth, 2 times a day, for 5 days, # 10 tablet, 0 Refills, Acute 05/28/20 11:08:00 EST,05/23/20 11:08:00 EST, Tablet, [facility]/pharmacy #1026, Partial fill upon patient request if the prescription is for a schedule II opioid drug., 1 tablet By... Start Date: 05/23/20 Stop Date: 05/28/20 Status: Ordered Benadryl:Maalox:Xylocaine 1% 1:1:1 Benadryl:Maalox:Xylocaine 1% [...] 01/21/21 19:13:00 EDT, 01/27/20 19:13:00 EDT, Tablet, [facility]/pharmacy #1026, 167, cm, 01/13/20 8:54:00 EDT, Height, 78.8, kg, 01/01/20 3:41:00 EDT, Dry... Start Date: 01/27/20 Stop Date: 01/21/21 Status: Ordered capsaicin 0.025% topical cream 1 application, Topically, 3 times a day, # 90 Gm, 11 Refills, Maintenance, 02/10/20 11:22:00 EST, Cream, [facility]/pharmacy #1026, 1 application Topically 3 times [...] Refills, Maintenance, 01/27/20 19:13:00 EDT, EC Capsule, [facility]/pharmacy #1026, 167, cm, 01/13/20 8:54:00 EDT, Height, 78.8, kg, 01/01/20 3:41:00 EDT, Dry Weight Start Date: 01/27/20 Status: Ordered Eliquis 5 mg oral tablet 1 tablet = 5 mg, By Mouth, 2 times a day, # 60 tablet, 11 Refills, Maintenance, 02/10/20 11:22:00 EST, Tablet, [facility]/pharmacy #1026, 167, cm, 01/13/20 8:54:00 EDT, Height, 78.8, kg, 01/01/20 3:41:00 EDT, Dry Weight Start Date: 02/10/20 Status: Ordered enalapril 10 mg oral tablet 10 mg, 1, tablet, By Mouth, Daily, discontinue hydrochlorothiazide, # 30 tablet, Refills 11, Tot. Refills 11, Maintenance, 04/29/20 13:04:00 EST, Route to Pharmacy Electronically, [facility]/pharmacy #1026,167, cm, 04/29/20 9:24:00 EST, Height, 82, kg, ... Start Date: 04/29/20 Status: Ordered famotidine 40 mg oral tablet 1 tablet = 40 mg, By Mouth, Daily at bedtime, If 40 mg tablet is not available, can change to 20 mgtablet 2 tablet at bedtime, # 30 tablet, 2 Refills, Maintenance, 04/04/20 16:07:00 EST, Tablet, [facility]/pharmacy #1026, 167, cm, 02/24/20 17:04:00 EST, Hei... Start Date: 04/04/20 Status: Ordered ferrous sulfate 325 mg oral tablet 1 tablet = 325 mg, By Mouth, Daily, May take with food to minimize abdominal discomfort. Do not take with milk. Take preferrably with juice., # 90 tablet, 2 Refills, Maintenance, 01/22/20 9:38:00 EDT, [facility]/pharmacy #1026, 167, cm, 01/13/20 8:54:00 EDT,... [...] 01/22/20 9:41:00 EDT, Route to Pharmacy Electronically, [facility] #1026, 167, cm, 01/13/20 8:54:00 EDT, [...] 78.8, kg,... Start Date: 01/21/20 Status: Ordered Dbw-hfl-mwkge medical-grade oxford diabetic shoes, depth or hightop Sfz-czr-roknq medical-grade oxford diabetic shoes, depth or hightop, [...] EST, 05/15/20 10:25:00 EST, Route toPharmacy Electronically, [facility]/pharmacy #1026, Parti... Start Date: 05/15/20 Stop [...] 07/10/20 Stop Date: 08/07/20 Status: Ordered Pen [place], 32 G x 4 mm BD Ultra [...] 527 Gm,11 Refills, Maintenance, 01/27/20 19:13:00 EDT, [facility]/pharmacy #1026, 17- 34 Gm By Mouth [...] 02/10/20 11:22:00 EST, Route to Pharmacy Electronically, [facility]/pharmacy #1026 Tablet, 167, cm, 01/13/20 8:5... [...] 05/01/20 9:28:00 EST, Route to Pharmacy Electronically, [facility]/pharmacy #1026, 167,... Start Date: 05/01/20 Status: Ordered TENS electrode pads TENS electrode pads, See Instructions, # 1 box, Refills 5, Tot. Refills 5, Maintenance, use as directed for back pain Dx LBP M54.9 1 box of 4, 12/06/16 14:59:01, Compound Start Date: 12/06/16 Status: Ordered Trelegy Ellipta inhalation powder 1 puffs, Inhalation, Daily, at the same time every day given by insurance writer , Dr Berkowitz, # 60 each, 0 [...] Gm, 5 Refills, Maintenance, 01/22/20 9:19:00 EDT, [facility]/pharmacy #1026, 167, cm, 01/13/20 8:54:00 EDT, Height, 78.8, kg, 01/01/20 3:41:00 EDT, D... 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 06/16/08 SURGEON: Danny Marie M.D. DRYING AND WINDING SUPERVISOR: Naima Bowling M.D. 21b/l submassive PE diagnosed on Dec [address] [facility] 22TTE 12/22/[address] [facility]: RV dilatation, RVSP 46 23Per ECHO 05/24/17 Trace mitral regurgitation , trace TC regurgitation w no significant valve pathology 24meg colo July 2009 exc for 2 hyperplastic polyps 25Colonoscopy 2004 at [facility] [place] per letter of Dr Amor Dobbins Social History Social History Type Response Smoking Status Never (less than 100 in lifetime) entered on: 04/29/20 Sex
--- OUTSIDE RECORDS SUMMARY | 2023-10-23 09:40 | XMS_ITS | Continuity of Care Document ---
Author Organization [facility] Address [address] [place] [id number]- Care Team Providers Care Ferryboat Operator Helper Name Role Phone Gayathri GARZA, Florinda Primary Care Physician Encounter [facility] Date(s): 05/15/19 - 05/25/19 [place] [address]- [facility] Attending Physician: Yaya Patino Admitting Physician: [...] or fever, (not to exceed 2000 mg/day) amharic, # 100 tablet, 11 Refills, Maintenance, 01/16/19 [...] Status: Ordered BD UF SHANNAN PEN NEEDLE [id number] BD UF SHANNAN PEN NEEDLE [id number], 0 Refills, Maintenance, 07/26/18 13:34:55 EDT Start [...] dose, # 30 capsule, 11 Refills, Maintenance, 12/18/19 9:10:00 EST, EC Capsule, [facility], 159, cm, 03/20/19 14:59:00 EST, Height, 88.3, kg, 12/13/18 10:17:00 EDT, Dry Weight Start Date: 03/27/19 Status: Ordered docusate sodium 100 mg oral tablet 1 tablet = 100 mg, By Mouth, 2 times a day, # 60 tablet, 11 Refills, Maintenance, 05/20/19 12:31:00EST, [facility], 159, cm, 05/20/19 12:19:00 EST, Height, 88.1, kg, 04/25/19 16:02:00 EST, Dry Weight Start Date: 05/20/19 Status: Ordered enalapril 10 mg oral tablet 10 mg, 1, tablet, By Mouth, Daily, 90 days, # 90 tablet, Refills 3, Tot. Refills 3, Maintenance, 09/19/18 15:15:30 EDT, Route to Pharmacy Electronically, [id number], [facility] Start Date: 09/19/18 Status: Ordered famotidine 40 mg oral tablet 1 tablet = 40 mg, By Mouth, Daily at bedtime, If 40 mg tablet is not available, can change to 20 mgtablet 2 tablet at bedtime, # 30 tablet, 5 Refills, Maintenance, 04/17/19 9:17:00 EST, Tablet, [facility], 159, cm, 04/17/19 8:24:0... Start Date: [...] 01/16/19 8:53:23 EDT, Route to Pharmacy Electronically, [id number], [facility]... Start Date: 01/16/19 Status: Ordered Lyrica 75 mg oral capsule 1 capsule = 75 mg, By Mouth, 2 times a day, discontinue gabapentin, # 60 capsule, 2 Refills, Maintenance, 05/20/19 12:26:00 EST, Capsule, 159, cm, 05/20/19 12:19:00 EST, Height, 88.1, kg, 04/25/19 16:02:00 EST, Dry Weight Start Date: 05/20/19 Status: Ordered Maalox Total Stomach Relief 525 [...] EDT, DxE11.65 Start Date: 07/20/18 Status: Ordered Ktc-zym-qqwmj medical-grade oxford diabetic shoes, depth or hightop Kfb-usq-vzknj medical-grade oxford diabetic shoes, depth or hightop, [...] 05/10/19 12:47:00 EST, Route to Pharmacy Electronically, [facility], [place]... Start Date: 05/10/19 Stop Date: 06/07/19 Status: Ordered oxyCODONE 5 mg oral tablet 5 mg, 1, tablet, By Mouth, Every 4 hours, for 28 days, dispense not earlier than 06/07/19, # 137 tablet, Refills 0, Tot. Refills 0, Acute 07/05/19 12:47:00 EDT, 06/07/19 12:47:00 EST, Route to Pharmacy Electronically, [facility], [place]... Start Date: 06/07/19 Stop Date: 07/05/19 Status: Ordered oxyCODONE 5 mg oral tablet 5 mg, 1, tablet, By Mouth, Every 4 hours, for 28 days, dispense not earlier than 07/05/19, # 137 tablet, Refills 0, Tot. Refills 0, Acute 08/02/19 12:47:00 EDT, 07/05/19 12:47:00 EDT, Route to Pharmacy Electronically, [facility], [place]... Start Date: 07/05/19 Stop Date: 08/02/19 Status: Ordered Pen [place], 32 G x 4 mm BD Ultra [...] 10:34:11 EDT Start Date: 06/27/18 Status: Ordered Senna 8.6 mg oral tablet 17.2 mg, 2, tablet, By Mouth, Daily at bedtime, PRN, # 60 tablet, Refills 11, Tot. Refills 11, Maintenance, for constipation, 05/20/19 12:31:00 EST, Route to Pharmacy Electronically, [facility] Tablet, 159, cm, 05/20/19 12:19:00 ES... Start [...] Tot. Refills 5, Maintenance, 05/22/19 20:38:00 EST, [facility] Electron[facility], [facility] Start Date: 05/22/19 [...] mL, 1 Refills, Maintenance, 05/01/19 15:57:00 EST, [facility]/pharmacy #[id number], 159, cm, 04/25/19 16:02:00 EST, Height, 88.1, kg, 04/25/19 16:02:00 EST, DryWeight Start Date: 05/01/19 Status: Ordered Urinary incontinence pads Urinary incontinence pads, See Instructions, # 90 each, Refills 11, Tot. Refills 11, Maintenance, Ultra absorbent, large ( no wings) Wear daily during day and night. Change 3 times a day prn . Dx stress urinary incontinence ICD10 N39.3, ... 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(Confirmed) 10 Active Hypercholesterolemia(Confirmed) Active Hypertension(Confirmed) Active Hysterectomy(Confirmed) Active Incontinence of urine(Confirmed) Active Iron deficiency anemia(Confirmed) Active Left ventricular hypertrophy(Confirmed) 11 Active Memory impairment(Confirmed) Active Mitral regurgitation(Confirmed) 12 05/24/17 Active Nephrolithiasis(Confirmed) 13, 14, 15 06/11/02 Active Obesity(Confirmed) Active JENNIFER (obstructive sleep apnea)(Confirmed) Active Osteopenia(Confirmed) 16, 17 11/16/12 Active *[id number]-[facility] Partn david [place](Confirmed) Active Peripheral venous insufficiency(Confirmed) [...] veins diagnosed on Dec 20 [facility] 5insulin dependent 6Per ECHO 05/24/1718 Grade I, mild diastolic dysfunction with impaired LV relaxation, which may be normal for the patient's age. 7EGD on 06/24/16 by GI, Dr Damien caballero gastritis and esophageal varices grade 1 8EGD on 06/24/16 by GI, Dr Damien Dobbins w gastritis and esophageal varices grade 1 9left mild sensorineural hearing loss by [facility] Hearing Evaluation on 12/29/11 10Narcotic contract w Dr Florinda Trinh 11Per ECHO 05/24/17 Mild concentric left ventricular hypertrophy 12Per ECHO 05/24/17 Trace mitral regurgitation , mild TC regurgitation w no significant valve pathology PHYSICIAN: Daniel Labm M.D. DIAGNOSIS: Right ureterolithiasis. OPERATION : Right extracorporeal shock wave lithotripsy 14Hx of laser treatment per patient unknown date 15bilateral by CT scan 16DEXA 10/26/15 AP Spine (L1-L4) -1.7 Osteopenia Femoral Neck (Left) -1.8 Osteopenia Total Hip (Left) -0.7 Normal 17DEXA 11/16/12 osteopenia AP spine -2.4 , osteopenia total hip -1.2 , osteopenia femoral neck-2.2 18Right lower parathyroidectomy. 06/16/08 SURGEON: Danny Marie M.D. BLOWER FEEDER DYED RAW STOCK: Naima Bowling M.D. 19b/l submassive PE diagnosed on Dec 20 in [facility] TTE 12/22/15 in [facility]: RV dilatation, RVSP 46 21Per ECHO 05/24/17 Trace mitral regurgitation , trace TC regurgitation w no significant valve pathology meg colo July 2009 exc for 2 hyperplastic polyps 23Colonoscopy 2004 at [facility] [place] per letter of Dr Amor Dobbins Social History Social History Type Response Smoking Status Never (less than 100 in lifetime) entered on: 04/17/19 Sex
--- OUTSIDE RECORDS SUMMARY | 2023-10-23 09:40 | XMS_ITS | Continuity of Care Document ---
Author Organization [facility] Address Unknown Care Team Providers Care Monument Stonecutter Name Role Phone Gayathri GARZA, Florinda Primary Care Physician [facility] Date[facility]s): 12/17/20 - 01/16/21 [facility] Allergies, Adverse Reactions, Alerts Substance Reaction [...] or fever, (not to exceed 2000 mg/day) belizean, # 100 tablet, 11 Refills, Maintenance, 08/14/20 10:13:00 EDT, [facility]/pharmacy #1026, 160, cm, 08/14/20 9:34:00 EDT, Height, [...] 11 Refills, Maintenance, 02/10/20 11:22:00 EST, Tablet, [facility]/pharmacy #1026, 167, cm, 01/13/20 8:54:00 [...] mL, 6 Refills, Maintenance, 01/21/20 14:30:00 EDT, [facility]/pharmacy #1026, 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 Start Date: 01/21/20 Status: Ordered Zqf-jki-bzkrt medical-grade oxford diabetic shoes, depth or hightop Ibc-roc-opfsw medical-grade Pic[place] diabetic shoes, depth or hightop, See Instructions, [...] 12/25/20 Stop Date: 01/22/21 Status: Ordered Pen [place], 32 G x 4 mm BD Ultra [...] 527 Gm,11 Refills, Maintenance, 01/27/20 19:13:00 EDT, [facility]/pharmacy #1026, 17- 34 Gm By [...] HDZ, # 30 tablet, 5 Refills, Maintenance, [facility] STORE [id number], 160, cm, 10/22/20 9:15:00 EDT, Height, 80.6, kg, 06/03/20 19:00:00 EST, Dry Weight Start Date: 11/13/20 Status: Ordered Senna 8.6 mg oral tablet 17.2 mg, 2, tablet, By Mouth, 2 times a day, PRN, discontinue docusate, # 60 tablet, Refills 11, Tot. Refills 11, Maintenance, for constipation, 02/10/20 11:22:00 EST, Route to Pharmacy Electronically, [facility]/pharmacy #1026 Tablet, 167, cm, 01/13/20 [...] [facility]... Start Date: 10/15/20 Status: Ordered TENS electrode pads TENS electrode pads, See Instructions, # 1 box, Refills 5, Tot. Refills 5, Maintenance, use as directed for back pain Dx LBP M54.9 1 box of 4, 12/06/16 14:59:01, Compound Start Date: 12/06/16 Status: Ordered Trelegy Ellipta inhalation powder 1 puffs, Inhalation, Daily, at the same time every day given by commercial airplane pilot , Dr Berkowitz, # 60 each, 0 [...] Date: 09/22/20 Stop Date: 12/15/20 Status: Ordered [place] Reusable Bed Pad 34 x 36 [place] Reusable Bed Pad 34 x 36 , [...] 11 Refills, Maintenance, 10/22/20 10:19:00 EDT, Tablet, [facility]/pharmacy #1026, Partial fill upon patient request if the prescription is for a schedule II opioid drug., 1 tablet B... 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 06/16/08 SURGEON: Danny Marie M.D. PROOF LOAD MECHANIC: Naima Bowling M.D. 21b/l submassive PE diagnosed on Dec 20 in [facility] 22TTE 12/22/15 in [facility]: RV dilatation, RVSP 46 23Per ECHO 05/24/17 Trace mitral regurgitation , trace TC regurgitation w no significant valve pathology 24meg colo July 2009 exc for 2 hyperplastic polyps 25Colonoscopy 2004 at [facility] [place] per letter of Dr Amor Dobbins Social History Social History Type Response Smoking Status Never (less than 100 in lifetime) entered on: 10/22/20 Sex
--- OUTSIDE RECORDS SUMMARY | 2023-10-23 09:41 | XMS_ITS | Continuity of Care Document ---
Author Organization [facility] Address [address] [place] [address]- Care Team Providers Care Cottrell Operator Name Role Phone Gayathri GARZA, Florinda Primary Care Physician [facility] Date(s): 07/19/21 - 08/18/21 [facility] [address] [place] [address]- Allergies, Adverse Reactions, Alerts Substance Reaction Severity [...] estonian, # 100 tablet, 11 Refills, Maintenance, 04/28/21 13:24:00 EST, [facility]/pharmacy #1026, 160, cm, 04/28/21 [...] Biotene Moisturizing Mouth oral spray See Instructions, [place] directly into mouth; spray is safe to swallow as needed for dry mouth, # 45mL, 11 Refills, Maintenance, 07/21/21 12:43:00 EDT, [facility], [place] directly into mouth; spray is safe to [...] [facility]/pharmacy #1026, Can use with [...] Refills, Maintenance, 10/22/20 10:35:00 EDT, [facility]/pharmacy [...] # 90 tablet, 2 Refills, [id number], 160, cm, 06/21/21 9:57:00 EDT, Height, 80.6, [...] 78.8, kg,... Start Date: 01/21/20 Status: Ordered Mce-pla-uzkmx medical-grade oxford diabetic shoes, depth or hightop Ejo-cda-loltv medical-grade oxford diabetic shoes, depth or hightop, [...] 10/04/21 Stop Date: 11/01/21 Status: Ordered Pen [place], 32 G x 4 mm BD [...] [facility]/pharmacy #1026, 160... Start Date: [...] Maintenance, 04/28/21 14:03:00 EST, Tablet, [facility]/pharmacy #1026, 160, cm, 04/28/21 9:50:00 EST, Height, 80.6, kg, 06/03/20 19:00:00 EST, Dry Weight Start Date: 04/28/21 Status: Ordered Senna-Time 8.6 mg oral tablet 2 tablet, By Mouth, 2 times a day, PRN NEEDED FOR CONSTIPATION,INSTR, DISCONTINUE DOCUSATE, # 60tablet, 11 Refills, [facility] STORE 96173, 160, cm, 03/03/21 11:23:00 EST, Height, 80.6, [...] of 4, 12/06/16 14:59:01, Compound Start Date: 8/29/17 Status: Ordered tiZANidine 2 mg oral tablet [...] the same time every day Given by Business Analyst Consultant, Dr. Michael Berkowitz, # 60 each, 0 Refills, Maintenance, 07/21/21 11:59:00 EDT, Powder, Partial fill upon patient request if the prescription is for a schedule II opi... 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 06/16/08 SURGEON: Danny Marie M.D. GRATED CHEESE MAKER: Naima Bowling M.D. 21b/l submassive PE diagnosed on Dec 20 in [facility] 22TTE 12/22/15 in [facility]: RV dilatation, RVSP 46 23Per ECHO 05/24/17 Trace mitral regurgitation , trace TC regurgitation w no significant valve pathology 24meg colo July 2009 exc for 2 hyperplastic polyps 25Colonoscopy 2004 at [facility] [place] per letter of Dr Amor D Mu Social History Social History Type Response Smoking Status Never (less than 100 in lifetime) entered on: 10/22/20 Sex
--- OUTSIDE RECORDS SUMMARY | 2023-10-23 09:41 | XMS_ITS | Continuity of Care Document ---
Author Organization [facility] Negrito rosetta Address [address] [place] [address] [address] [place] [address]- Care Team Providers Care Dispatcher Street Department Name Role Phone Gayathri GARZA, Florinda Primary Care Physician Encounter [facility] Date(s): 02/24/21 - 05/01/21 [facility] [address] [place] [address]- Attending Physician: Lilibeth Ryan MD Referring Physician: Florinda Trinh MD Allergies, [...] by melissa chiu 6Admin Note: ADMINISTERED BY RYoaan 7Result Comment: Masood RUVALCABA RN 8Result Comment: [...] tablet, 11 Refills, Maintenance, 04/28/21 13:24:00 EST, [facility]/pharmacy #1026, 160, cm, 04/28/21 9:50:00 [...] 11 Refills, Maintenance, 04/21/21 18:12:00 EST, Tablet, [facility]/pharmacy #1026, 160, cm, 03/03/21 11:23:00 EST, Height, 80.6, kg, 06/03/20 19:00:00 EST, Dry Weight Start Date: 04/21/21 Status: Ordered escitalopram 20 mg oral tablet 1 tablet = 20 mg, By Mouth, Daily, Discontinue duloxetine 60 mg, # 30 tablet, 11 Refills, Maintenance, 12/09/20 11:15:00 EDT, Tablet, [facility]/pharmacy #1026, Partial fill upon patient [...] tablet, 3 Refills, Maintenance, 06/30/20 14:55:00 EDT, Tablet,[facility]/pharmacy #1026, Discontinue 30- day supply [...] 04/28/21 14:34:00 EST, Route to Pharmacy Electronically, [facility]/pharmacy #1026, Can use with HCTZ, [...] capsule, 3 Refills, Maintenance, 10/22/20 10:35:00 EDT, [facility]/pharmacy #1026, 160, cm, 10/22/20 9:15:00 EDT, Height, 80.6, kg, 06/03/20 19:00:00 EST, Dry Weight Start Date: 10/22/20 Stop Date: 10/17/21 Status: Ordered ketotifen 0.025% ophthalmic solution 1 drops, Eyes, Both, Every 12 hours, PRN as needed for eye allergy, # 7.5 mL, 11 Refills, Maintenance, 01/27/20 19:13:00 EDT, [facility]/pharmacy #1026, 1 drops Eyes, Both [...] 78.8, kg,... Start Date: 01/21/20 Status: Ordered Egq-bxt-grlug medical-grade oxford diabetic shoes, depth or hightop Xga-ruz-fgulq medical-grade oxford diabetic shoes, depth or hightop, [...] 04/19/21 Stop Date: 05/17/21 Status: Ordered Pen [place], 32 G x 4 mm BD Ultra Fine III See Instructions, # 360 each, Refills 3, Tot. Refills 3, Maintenance, Use as directed for insulin use 4 times a day DX IDDM; 90 days, 02/01/21 10:40:00 EDT, Compound, 160, cm, 01/28/21 13:05:00 EDT, Height, 80.6, kg, 06/03/20 19:00:00 RASHAD DLizbet.. Start Date: 02/01/21 Status: Ordered Plavix 75 mg oral tablet 75 mg, 1, tablet, By Mouth, Daily, Stop if there is any bleeding. Stop 5 to 7 days before any invasive procedures, # 30 tablet, Refills 11, Tot. Refills 11, Maintenance, 04/28/21 14:02:00 EST, Route to Pharmacy Electronically, [facility]/pharmacy #1026, 160... Start Date: 04/28/21 [...] 527 Gm,11 Refills, Maintenance, 01/27/20 19:13:00 EDT, [facility]/pharmacy #1026, 17- 34 Gm By [...] 11 Refills, Maintenance, 04/28/21 14:03:00 EST, Tablet, [facility]/pharmacy #1026, 160, cm, 04/28/21 9:50:00 EST, Height, 80.6, kg, 06/03/20 19:00:00 EST, Dry Weight Start Date: 04/28/21 Status: Ordered Senna-Time 8.6 mg oral tablet 2 tablet, By Mouth, 2 times a day, PRN NEEDED FOR CONSTIPATION,INSTR, DISCONTINUE DOCUSATE, # 60tablet, 11 Refills, [facility] STORE 0[facility], 160, cm, 03/03/21 11:23:00 EST, Height, 80.6, [...] 02/22/21 17:50:00 EST, Route to Pharmacy Electronically, [facility]/pharmacy #1026, 1... Start Date: 02/22/21 [...] 02/15/21 11:39:00 EST, Route to Pharmacy Electronically, [facility]/pharmacy #1026,Partial fill upon patient request if the prescrip... 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 DIAGNOSIS: Right ureterolithiasis. [...] lower parathyroidectomy. 06/16/08 SURGEON: Danny Marie M.D. CATERING SOUS CHEF: Naima Bowling M.D. 21b/l submassive PE diagnosed on Dec 20 in [facility] 22TTE 12/22/15 in [facility]: RV dilatation, RVSP 46 23Per ECHO 05/24/17 Trace mitral regurgitation , trace TC regurgitation w no significant valve pathology 24meg colo July 2009 exc for 2 hyperplastic polyps 25Colonoscopy 2004 at [facility] [place] per letter of Dr Amor Dobbins Social History Social History Type Response Smoking Status Never (less than 100 in lifetime) entered on: 10/22/20 Sex
--- OUTSIDE RECORDS SUMMARY | 2023-10-23 09:41 | XMS_ITS | Continuity of Care Document ---
Author Organization [facility] Address [address] [place] [address]- Care Team Providers Care Elementary School Principal Name Role Phone Massimo Figueroa Primary Care Physician [facility] Date(s): 04/20/23 - 05/20/23 [facility] [address] [place] [address]- Allergies, Adverse Reactions, Alerts Substance Reaction Severity [...] virus vaccine, inactivated 6 05/06/04 Gi zeny [id number] 12y+ bivalent booster vax 2/15/23 Given zoster vaccine, inactivated 12/08/21 Given zoster vaccine, inactivated 09/15/21 Given SARS-CoV-2 mRNA (yjbrixp-qwqz-jfvdk) vax 09/15/21 Given SARS-CoV-2 (COVID-19) mRNA BNT-162b2 [...] Maintenance, 05/25/22 12:08:00 EST, ER Tablet, [facility], Discontinue Motrin, 158, cm, 05/25/22 11:12:00... Start [...] Gm, 11 Refills, Maintenance, 07/21/21 12:43:00 EDT, [facility]/pharmacy #1026, 1 applicator Topically 2 times a day, 160, cm, 07/21/21 10:22:00 EDT, Height, 80.6, kg, 06/03/20 19:00:00 EST, Dry Weight Start Date: 07/21/21 Status: Ordered Baqsimi Two Pack 3 mg nasal powder = 3 mg, Naris, Right, Once, Please use for a low blood sugar emergency, may repeat in 15 minutes, #1 each, 3 Refills, Soft Stop, 03/09/22 11:35:00 EST, [facility]/pharmacy #0838, 160, cm, 03/09/22 10:43:00EST, Height, 78, kg, 01/14/22 19:37:00 EDT, Dry W... Start Date: 03/09/22 Status: Ordered Biotene Moisturizing Mouth oral spray See Instructions, [place] directly into mouth; spray is safe to [...] P.M. NEEDED & [facility], # [facility] tablet, 1 Refills, Maintenance, 08/05/22 12:49:00 EDT, [facility], 158, cm, 07/12/22 11:54:00 EDT, Height, 76, kg, 05/07/22 6:04:00 ES... Start Date: 08/05/22 Status: Ordered capsaicin 0.025% topical cream 1 application, Topically, 3 times a day, # 35 Gm, 11 Refills, Maintenance, 07/21/21 12:26:00 EDT, Cream, [facility]/pharmacy #1026, 1 application Topically 3 times a [...] 11 Refills, Maintenance, 12/06/21 15:04:00 EDT, Tablet, [facility], Partial fill upon patient request [...] tablet, 3 Refills, Maintenance, 07/12/21 18:53:00 EDT, Tablet,[facility]/pharmacy #1026, Discontinue 30- day supply presc... Start Date: 07/12/21 Stop Date: 07/07/22 Status: Ordered ferrous sulfate 325 mg oral tablet 1 tablet = 325 mg, By Mouth, Daily, May take with food to minimize abdominal discomfort. Do not take with milk. Take preferrably with juice., # 90 tablet, 3 Refills, Maintenance, 09/15/21 8:56:00 EDT, [facility]/pharmacy #1026, 160, cm, 09/15/21 8:15:00 EDT,... Start [...] Refills, Maintenance, 07/08/22 9:47:00 EDT, [facility], 158, cm, 06/16/22 11:27:00 EST, Height, 76, [...] tablet, 0 Refills, Maintenance, 04/18/23 1:50:00 EST, [facility]/pharmacy #0838, 90, TAKE 1 TABLET BY MOUTH [...] Replace Required Details, Route to Pharmacy Electronically, [facility]/pharmacy #0838, 160, cm, 03/23/23 1... Start Date: [...] 03/09/22 11:54:00 EST, Route to Pharmacy Electronically, [facility]/pharmacy #0838, 160, cm, 03/09/22 10:43:00 EST, Height, [...] # 15... Start Date: 11/24/22 Status: Ordered Ylr-tpr-oogzl medical-grade oxford diabetic shoes, depth or hightop Skp-vir-kbfol medical-grade oxford diabetic shoes, depth or hightop, [...] DOLOR Start Date: 11/24/22 Status: Ordered Pen [place], 32 G x 4 mm BD Ultra [...] 527 Gm,11 Refills, Maintenance, 03/09/22 11:39:00 EST, [facility]/pharmacy #0838, 17- 34 Gm By Mouth Daily,PRN:asneeded [...] 4 Refills, Maintenance, 05/09/23 10:10:00 EST, Tablet, [facility]/pharmacy #0838, Partial fill upon patient request if [...] 15 mL, 3 Refills, Maintenance, 02/24/2312:11:00 EST, [facility]/pharmacy #0838, Partial fill upon patient request if [...] Gm, 5 Refills, Maintenance, 03/09/22 11:55:00 EST, [facility]/pharmacy #0838, 2 Gm Topically 4 times a day,x14 days, 160, cm, 03/09/22 10:43:00 EST, Height, 78, kg, 01/14/22 19:37:00 EDT, Dry Weight Start Date: 03/09/22 Stop Date: 06/01/22 Status: Ordered [place] Reusable Bed Pad 34 x 36 [place] Reusable Bed Pad 34 x 36 , [...] Confirmed 12/29/11 Active Hepatitis C Confirmed Active snf current use of opiate analgesic-LBP 12 Confirmed [...] Osteopenia 18, 19, 20 Confirmed 11/16/12 Active *[id number] Corporate Development Associate Karine More Confirmed Active Peripheral venous insufficiency [...] 2 peroneal veins diagnosed on Dec 20 [facility] 6insulin dependent 7Per ECHO 05/24/1718 Grade [...] lower parathyroidectomy. 06/16/08 SURGEON: Danny Marie M.D. GEAR AND SPLINE GRINDER: Naima Bowling M.D. 22b/l submassive PE diagnosed on Dec 20 in [facility] 23TTE 12/22/15 in [facility]: RV dilatation, RVSP 46 24Per ECHO 05/24/17 Trace mitral regurgitation , trace TC regurgitation w no significant valve pathology 25meg colo July 2009 exc for 2 hyperplastic polyps 26Colonoscopy 2004 at [facility] [place] per letter of Dr Amor Dobbins Social History Social History Type Response Smoking Status Never (less than 100 in lifetime) entered on: 10/22/20 Sex Patient Care team information Care Team Personnel Name: Massimo Figueroa Position: [facility] Outreach Member Role: PCP Address: Address: [address] [place] [address] Name: Diamond Weiss RN Position: [facility] RN Member Role: Primary Care Nurse Name: Tiara Cavazos RN Position: [facility] OB RN Member Role: Primary Care Nurse Name: Shreya Boss RN Position: [facility] RN Member Role: Primary Care Nurse Name: Dhruv Khan RN Position: [facility] RN Member Role: Primary Care Nurse Name: Virginia Bneson RN Position: [facility] SN RN Member Role: Primary Care Nurse Name: Mary RN, Jaylin Position: [facility] Onco RN Member Role: Primary Care Nurse Name: Glen Cota MD Position: [facility] Renal MD Member Role: Lifetime Consulting Physician Address: Address: [address] [place] [address] [facility] [address] Name: Carole Toro LPN Position: [facility] RN Member Role: Primary Care Nurse Care Team Related Persons Name: JOSE ELIAS TODD Address: [place] [address] Name: JOSE ELIAS KIRKLAND Address: home [address] [place] [id number] Name: LEONIE SCHRADER Address: [place] [address]
--- OUTSIDE RECORDS SUMMARY | 2023-10-23 09:41 | XMS_ITS | Continuity of Care Document ---
Author Organization [facility] Address [address] [place] [address]- Care Team Providers Care Warehouse Representative Name Role Phone Massimo Figueroa Primary Care Physician [phone] [facility]counter [facility] Date[facility]s): 05/01/23 - 05/31/23 [facility] [address] [place] [address]- Allergies, Adverse Reactions, Alerts Substance Reaction Severity [...] virus vaccine, inactivated 6 05/06/04 Gi zeny [id number] 12y+ bivalent booster vax 05/25/22 Given zoster vaccine, inactivated 12/08/21 Given zoster vaccine, inactivated 09/15/21 Given SARS-CoV-2 mRNA (opaoyru-cyry-xdyfr) vax 09/15/21 Given SARS-CoV-2 (COVID-19) mRNA BNT-162b2 [...] Maintenance, 05/25/22 12:08:00 EST, ER Tablet, [id number], Discontinue Motrin, 158, cm, 05/25/22 11:12:00... Start [...] Gm, 11 Refills, Maintenance, 07/21/21 12:43:00 EDT, [facility]/pharmacy #1026, 1 applicator [...] 3 Refills, Soft Stop, 03/09/22 11:35:00 EST, [facility]/pharmacy #0838, 160, cm, 03/09/22 10:43:00EST, Height, 78, kg, 01/14/22 19:37:00 EDT, Dry W... Start Date: 03/09/22 Status: Ordered Biotene Moisturizing Mouth oral spray See Instructions, [place] directly into mouth; spray is safe to [...] P.M. [facility] & [facility] # [facility] tablet, 1 Refills, Maintenance, 08/05/22 12:49:00 EDT, [id number], 158, cm, 07/12/22 11:54:00 EDT, Height, 76, kg, 05/07/22 6:04:00 ES... Start Date: 08/05/22 Status: Ordered capsaicin 0.025% topical cream 1 application, Topically, 3 times a day, # 35 Gm, 11 Refills, Maintenance, 07/21/21 12:26:00 EDT, Cream, [facility]/pharmacy #1026, 1 application [...] 11 Refills, Maintenance, 12/06/21 15:04:00 EDT, Tablet, [facility], Partial fill upon [...] tablet, 3 Refills, Maintenance, 07/12/21 18:53:00 EDT, Tablet,[facility], Discontinue 30- day supply presc... Start Date: 07/12/21 Stop Date: 07/07/22 Status: Ordered ferrous sulfate 325 mg oral tablet 1 tablet = 325 mg, By Mouth, Daily, May take with food to minimize abdominal discomfort. Do not take with milk. Take preferrably with juice., # 90 tablet, 3 Refills, Maintenance, 09/15/21 8:56:00 EDT, [facility]/pharmacy #1026, 160, cm, [...] Refills, Maintenance, 07/08/22 9:47:00 EDT, [id number], 158, cm, 06/16/22 11:27:00 EST, Height, 76, [...] tablet, 0 Refills, Maintenance, 04/18/23 1:50:00 EST, [facility]/pharmacy #0838, 90, TAKE [...] Replace Required Details, Route to Pharmacy Electronically, [facility]/pharmacy #0838, 160, cm, [...] 03/09/22 11:54:00 EST, Route to Pharmacy Electronically, [facility]/pharmacy #[id number], 160, cm, [...] # 15... Start Date: 11/24/22 Status: Ordered Vun-qjy-zdkoo medical-grade oxford diabetic shoes, depth or hightop Wmb-etj-sxiiq medical-grade oxford diabetic shoes, depth or hightop, [...] DOLOR Start Date: 11/24/22 Status: Ordered Pen [place], 32 G x 4 mm BD Ultra [...] 4 Refills, Maintenance, 05/09/23 10:10:00 EST, Tablet, [facility]/pharmacy #0838, Partial fill [...] 15 mL, 3 Refills, Maintenance, 02/24/2312:11:00 EST, [facility]/pharmacy #[id number], Partial fill [...] Date: 03/09/22 Stop Date: 06/01/22 Status: Ordered [place] Reusable Bed Pad 34 x 36 [place] Reusable Bed Pad 34 x 36 , [...] Osteopenia 18, 19, 20 Confirmed 11/16/12 Active *[id number] [place] Karine More Confirmed Active Peripheral venous insufficiency [...] 2 peroneal veins diagnosed on Dec 20 [facility] 6insulin dependent 7Per ECHO 05/24/1718 Grade [...] 11left mild sensorineural hearing loss by [facility] Hearing Evaluation on 12/29/11 12Narcotic contract [...] lower parathyroidectomy. 06/16/08 SURGEON: Danny Marie M.D. DITCH RIDER: Naima Bowling M.D. 22b/l submassive PE diagnosed on Dec 20 in [facility] 23TTE 12/22/15 in [facility]: RV dilatation, RVSP 46 24Per ECHO 05/24/17 Trace mitral regurgitation , trace TC regurgitation w no significant valve pathology 25meg colo July 2009 exc for 2 hyperplastic polyps 26Colonoscopy 2004 at [facility] [place] per letter of Dr Amor Dobbins Social History Social History Type Response Smoking Status Never (less than 100 in lifetime) entered on: 10/22/20 Sex Patient Care team information Care Team Personnel Name: Massimo Figueroa Position: [facility] Outreach Member Role: PCP Address: Address: [address] [place] [address]- Name: Diamond Weiss RN Position: [facility] RN Member Role: Primary Care Nurse Name: Tiara Cavazos RN Position: [facility] OB RN Member Role: Primary Care Nurse Name: Shreya Boss RN Position: [facility] RN Member Role: Primary Care Nurse Name: Dhruv Khan RN Position: [facility] RN Member Role: Primary Care Nurse Name: Virginia Besnon RN Position: [facility] SN RN Member Role: Primary Care Nurse Name: Mary RN, Jaylin Position: [facility] Onco RN Member Role: Primary Care Nurse Name: Glen Cota MD Position: [facility] Renal MD Member Role: Lifetime Consulting Physician Address: Address: [address] [place] [address] [facility] [address] Name: Carole Toro LPN Position: S RN Member Role: Primary Care Nurse Care Team Related Persons Name: JOSE ELIAS TODD Address: [place] [address] Name: JOSE ELIAS KIRKLAND Address: home [address] [place] [id number] Name: LEONIE SCHRADER Address: [place] [address]
--- OUTSIDE RECORDS SUMMARY | 2023-10-23 09:41 | XMS_ITS | Continuity of Care Document ---
Author Organization [facility] Address [address] [place] [address]- Care Team Providers Care Cement Block Maker Name Role Phone Massimo Figueroa Primary Care Physician [facility] Date[facility]s): 02/22/23 - 03/24/23 [facility] [address], [place] [address] Allergies, Adverse Reactions, Alerts Substance Reaction Severity [...] virus vaccine, inactivated 6 05/06/04 Gi zeny [id number] 12y+ bivalent booster vax 05/25/22 Given zoster vaccine, inactivated 12/08/21 Given zoster vaccine, inactivated 09/15/21 Given SARS-CoV-2 mRNA (inazjvw-scvm-vpifq) vax 09/15/21 Given SARS-CoV-2 (COVID-19) mRNA BNT-162b2 [...] CRAFT RN 5Admin Note: administered by melissa crfat 6Admin Note: ADMINISTERED BY R.NLizbet 7Result Comment: [...] Maintenance, 05/25/22 12:08:00 EST, ER Tablet, [id number], Discontinue Motrin, 158, cm, 05/25/22 11:12:00... Start [...] 11 Refills, Maintenance, 07/21/21 12:43:00 EDT, [facility]/pharmacy #1026, 1 applicator Topically 2 [...] Refills, Soft Stop, 03/09/22 11:35:00 EST, [facility]/pharmacy #0838, 160, cm, 03/09/22 10:43:00EST, Height, 78, kg, 01/14/22 19:37:00 EDT, Dry W... Start Date: 03/09/22 Status: Ordered Biotene Moisturizing Mouth oral spray See Instructions, [place] directly into mouth; spray is safe [...] P.M. NEEDED & 1 TAB AT [facility], # [facility] tablet, 1 Refills, Maintenance, 08/05/22 12:49:00 EDT, [facility], 158, cm, 07/12/22 11:54:00 EDT, Height, 76, kg, 05/07/22 6:04:00 ES... Start Date: 08/05/22 Status: Ordered capsaicin 0.025% topical cream 1 application, Topically, 3 times a day, # 35 Gm, 11 Refills, Maintenance, 07/21/21 12:26:00 EDT, Cream, [facility]/pharmacy #1026, 1 application Topically 3 [...] 11 Refills, Maintenance, 12/06/21 15:04:00 EDT, Tablet, [facility], Partial fill upon patient request [...] 3 Refills, Maintenance, 07/12/21 18:53:00 EDT, Tablet,[facility]1026, Discontinue 30- day supply presc... Start Date: 07/12/21 Stop Date: 07/07/22 Status: Ordered ferrous sulfate 325 mg oral tablet 1 tablet = 325 mg, By Mouth, Daily, May take with food to minimize abdominal discomfort. Do not take with milk. Take preferrably with juice., # 90 tablet, 3 Refills, Maintenance, 09/15/21 8:56:00 EDT, [facility]/pharmacy #1026, 160, cm, 09/15/21 8:15:00 [...] Refills, Maintenance, 07/08/22 9:47:00 EDT, [facility], 158, cm, 06/16/22 11:27:00 EST, Height, 76, [...] PRN allergies, # 90 tablet, 3 Refills, 11/30/22 11:57:00 EST, [facility]/pharmacy #0838, 1 tablet By Mouth [...] 11:37:00 EST, Route to Pharmacy Electronically, [facility]/pharmacy #0838, 160, cm, 03/09/22 10:43:00 [...] 11:54:00 EST, [facility] 160, cm, 03/09/22 10:43:00 EST, Height, [...] # 15... Start Date: 11/24/22 Status: Ordered Mqj-gbj-zapqd medical-grade oxford diabetic shoes, depth or hightop Hwo-yxj-elkyc medical-grade oxford diabetic shoes, depth or hightop, [...] DOLOR Start Date: 11/24/22 Status: Ordered Pen [place], 32 G x 4 mm BD Ultra [...] 4 Refills, Maintenance, 11/24/22 9:55:00 EDT, Tablet, [facility]/pharmacy #0838, Partial fill upon patient [...] mL, 3 Refills, Maintenance, 02/24/2312:11:00 EST, [facility]/pharmacy #0838, Partial fill upon patient [...] Date: 03/09/22 Stop Date: 06/01/22 Status: Ordered [place] Reusable Bed Pad 34 x 36 [place] Reusable Bed Pad 34 x 36 , [...] Confirmed 12/29/11 Active Hepatitis C Confirmed Active nursing home current use of opiate analgesic-LBP 12 [...] Osteopenia 18, 19, 20 Confirmed 11/16/12 Active *[id number] 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 06/16/08 SURGEON: Danny Marie M.D. ART TEACHER: Naima Bowling M.D. 22b/l submassive PE diagnosed on Dec 20 in [facility] 23TTE 12/22/15 in [facility]: RV dilatation, RVSP 46 24Per ECHO 05/24/17 Trace mitral regurgitation , trace TC regurgitation w no significant valve pathology 25meg colo July 2009 exc for 2 hyperplastic polyps 26Colonoscopy 2004 at [facility] [place] per letter of Dr Amor Dobbins Social History Social History Type Response Smoking Status Never (less than 100 in lifetime) entered on: 10/22/20 Sex Patient Care team information Care Team Personnel Name: Massimo Figueroa Position: [facility] Outreach Member Role: PCP Address: Address: [address] [place] [address] Name: Diamond Weiss RN Position: S RN Member Role: Primary Care Nurse Name: Tiara Cavazos RN Position: [facility] OB RN Member Role: Primary Care Nurse Name: Shreya Boss RN Position: [facility] RN Member Role: Primary Care Nurse Name: Dhruv Khan RN Position: [facility] RN Member Role: Primary Care Nurse Name: Virginia Benson RN Position: [facility] SN RN Member Role: Primary Care Nurse Name: Jaylin Hernandez RN Position: [facility] Onco RN Member Role: Primary Care Nurse Name: Glen Cota MD Position: [facility] Renal MD Member Role: Lifetime Consulting Physician Address: Address: [address] [place] [address] [facility] [address] Name: Carole Toro LPN Position: [facility] RN Member Role: Primary Care Nurse Care Team Related Persons Name: JOSE ELIAS TODD Address: [place] [address] Name: JOSE ELIAS KIRKLAND Address: home [address] [place] [address] Name: LEONIE SCHRADER Address: [place] [address]
--- OUTSIDE RECORDS SUMMARY | 2023-10-23 09:41 | XMS_ITS | Continuity of Care Document ---
Author Organization [facility] Diabetes Address [address] [place] [address]- Care Team Providers Care Remote Pilot Operator Name Role Phone Massimo Figueroa Primary Care Physician [facility]): 04[facility]20/23 - 06/11/23 [facility] [address] [place] [address]- Attending Physician: Jose Raul PharmJose Antonio, Indy Kasper Admitting Physician: Jose Raul PharmJose Antonio, Indy Kasper Allergies, Adverse Reactions, Alerts Substance Reaction Severity [...] virus vaccine, inactivated 6 05/06/04 Gi zeny [id number] 12y+ bivalent booster vax 05/25/22 Given zoster vaccine, inactivated 12/08/21 Given zoster vaccine, inactivated 09/15/21 Given SARS-CoV-2 mRNA (dmhecve-dryn-rmbhj) vax 09/15/21 Given SARS-CoV-2 (COVID-19) mRNA BNT-162b2 [...] Maintenance, 05/25/22 12:08:00 EST, ER Tablet, [id number], Discontinue Motrin, 158, cm, 05/25/22 11:12:00... Start [...] Gm, 11 Refills, Maintenance, 07/21/21 12:43:00 EDT, [facility]/pharmacy #1026, 1 applicator Topically 2 times a day, 160, cm, 07/21/21 10:22:00 EDT, Height, 80.6, kg, 06/03/20 19:00:00 EST, Dry Weight Start Date: 07/21/21 Status: Ordered [place] Two Pack 3 mg nasal powder = 3 mg, Naris, Right, Once, Please use for a low blood sugar emergency, may repeat in 15 minutes, #1 each, 3 Refills, Soft Stop, 03/09/22 11:35:00 EST, [facility]/pharmacy #0838, 160, cm, 03/09/22 10:43:00EST, Height, 78, kg, 01/14/22 19:37:00 EDT, Dry W... Start Date: 03/09/22 Status: Ordered Biotene Moisturizing Mouth oral spray See Instructions, [place] directly into mouth; spray is safe to [...] P.M. NEEDED & 1 TAB AT [facility], # 180 tablet, 1 Refills, Maintenance, 08/05/22 12:49:00 EDT, [facility], 158, cm, 07/12/22 11:54:00 EDT, Height, 76, kg, 05/07/22 6:04:00 ES... Start Date: 08/05/22 Status: Ordered capsaicin 0.025% topical cream 1 application, Topically, 3 times a day, # 35 Gm, 11 Refills, Maintenance, 07/21/21 12:26:00 EDT, Cream, [facility]/pharmacy #1026, 1 application Topically 3 times a [...] 11 Refills, Maintenance, 12/06/21 15:04:00 EDT, Tablet, [facility], Partial fill upon [...] tablet, 3 Refills, Maintenance, 07/12/21 18:53:00 EDT, Tablet,[facility]/pharmacy #1026, Discontinue 30- day supply presc... Start Date: 07/12/21 Stop Date: 07/07/22 Status: Ordered ferrous sulfate 325 mg oral tablet 1 tablet = 325 mg, By Mouth, Daily, May take with food to minimize abdominal discomfort. Do not take with milk. Take preferrably with juice., # 90 tablet, 3 Refills, Maintenance, 09/15/21 8:56:00 EDT, [facility]/pharmacy #1026, 160, cm, 09/15/21 8:15:00 EDT,... Start [...] Refills, Maintenance, 07/08/22 9:47:00 EDT, [facility], 158, cm, 06/16/22 11:27:00 EST, Height, 76, kg, 05/07/22 6:04:00 EST, Dry Weight Start Date: 07/08/22 Status: Ordered ketotifen 0.025% ophthalmic solution 1 drops, Eyes, Both, Every 12 hours, PRN as needed for eye allergy, # 7.5 mL, 11 Refills, Maintenance, 06/25/21 8:34:00 EDT, [facility]/pharmacy #1026, 1 drops Eyes, Both Every 12 [...] tablet, 0 Refills, Maintenance, 04/18/23 1:50:00 EST, [facility]/pharmacy #0838, 90, TAKE 1 TABLET BY MOUTH [...] Replace Required Details, Route to Pharmacy Electronically, [facility]/pharmacy #0838, 160, cm, 03/23/23 1... Start Date: [...] 03/09/22 11:54:00 EST, Route to Pharmacy Electronically, [facility]/pharmacy #0838, 160, cm, 03/09/22 10:43:00 EST, Height, [...] # 15... Start Date: 11/24/22 Status: Ordered Emn-gyo-avxdh medical-grade oxford diabetic shoes, depth or hightop Gqs-ogv-uimtk medical-grade oxford diabetic shoes, depth or hightop, [...] DOLOR Start Date: 11/24/22 Status: Ordered Pen [place], 32 G x 4 mm BD Ultra [...] 4 Refills, Maintenance, 05/09/23 10:10:00 EST, Tablet, [facility]/pharmacy #0838, Partial fill upon patient request if [...] Gm, 5 Refills, Maintenance, 03/09/22 11:55:00 EST, [facility]/pharmacy #0838, 2 Gm Topically 4 times a day,x14 days, 160, cm, 03/09/22 10:43:00 EST, Height, 78, kg, 01/14/22 19:37:00 EDT, Dry Weight Start Date: 03/09/22 Stop Date: 06/01/22 Status: Ordered [place] Reusable Bed Pad 34 x 36 [place] Reusable Bed Pad 34 x 36 , [...] Osteopenia 18, 19, 20 Confirmed 11/16/12 Active *[id number] Agricultural Appraiser Karine More Confirmed Active Peripheral venous insufficiency [...] peroneal veins diagnosed on Dec 20 [facility] 6insulin dependent 7Per ECHO 05/24/1718 Grade [...] 11left mild sensorineural hearing loss by [facility] Hearing Evaluation on 12/29/11 12Narcotic contract [...] lower parathyroidectomy. 06/16/08 SURGEON: Danny Marie M.D. VEGETABLE BUNCHER: Naima Bowling M.D. 22b/l submassive PE diagnosed on Dec 20 in [facility] TTE 12/22/15 in [facility]: RV dilatation, RVSP 46 24Per ECHO 05/24/17 Trace mitral regurgitation , trace TC regurgitation w no significant valve pathology 25meg colo July 2009 exc for 2 hyperplastic polyps 26Colonoscopy 2004 at [facility] [place] per letter of Dr Amor Dobbins Social History Social History Type Response Smoking Status Never (less than 100 in lifetime) entered on: 10/22/20 Sex Patient Care team information Care Team Personnel Name: Massimo Figueroa Position: [facility] Outreach Member Role: PCP Address: Address: [address] [place] [address] Name: Diamond Weiss RN Position: S RN Member Role: Primary Care Nurse Name: Tiara Cavazos RN Position: S OB RN Member Role: Primary Care Nurse Name: Shreya Boss RN Position: S RN Member Role: Primary Care Nurse Name: Dhruv Khan RN Position: [facility] RN Member Role: Primary Care Nurse Name: Virginia Benson RN Position: [facility] SN RN Member Role: Primary Care Nurse Name: Jaylin Hernandez RN Position: [facility] Onco RN Member Role: Primary Care Nurse Name: Glen Cota MD Position: [facility] Renal MD Member Role: Lifetime Consulting Physician Address: Address: [address] [place] [address] [facility] [address] Name: Carole Toro LPN Position: [facility] RN Member Role: Primary Care Nurse Care Team Related Persons Name: JOSE ELIAS TODD Address: [place] [address] Name: JOSE EILAS KIRKLAND Address: home [address] [place] [address] Name: LEONIE SCHRADER Address: [place] [address]
--- OUTSIDE RECORDS SUMMARY | 2023-10-23 09:41 | XMS_ITS | Continuity of Care Document ---
Author Organization [facility] Address [address] [place] [address]- Care Team Providers Care Snag Grinder Name Role Phone Gayathri GARZA, Florinda Primary Care Physician [facility]): 07[facility]16/20 - 08/15/20 [facility] [address] [place] [address]- Allergies, Adverse Reactions, Alerts Substance Reaction Severity [...] influenza virus vaccine, inactivated 7 02/09/06 Gi zney influenza virus vaccine, inactivated 8 05/06/04 Gi [...] or fever, (not to exceed 2000 mg/day) lithuanian, # 100 tablet, 11 Refills, Maintenance, 08/14/20 [...] 15:26:00 EDT, Route to Pharmacy Electronically, [facility]/pharmacy #[id number], 160, cm, 06/12/20 9:01... Start Date: 07/16/20 Status: Ordered ammonium lactate 12% topical cream 1 applicator, Topically, 2 times a day, # 280 Gm, 11 Refills, Maintenance, 01/27/20 19:13:00 EDT, [facility]/pharmacy #1026, 1 applicator Topically 2 [...] Refills, Soft Stop, 06/26/20 7:30:00 EDT, [facility]/pharmacy #1026, Partial fill upon patient request if the prescription is for a schedule II op... Start Date: 06/26/20 Status: Ordered calcium (as citrate)-vitamin D 315 mg-250 intl units oral tablet 2 tablet, By Mouth, 2 times a day, for 30 days, calcium citrate, # 120 tablet, 11 Refills, Hard Stop 01/21/21 19:13:00 EDT, 01/27/20 19:13:00 EDT, Tablet, [facility]/pharmacy #1026, 167, cm, 01/13/20 8:54:00 EDT, Height, 78.8, kg, 01/01/20 3:41:00 EDT, Dry... Start Date: 01/27/20 Stop Date: 01/21/21 Status: Ordered capsaicin 0.025% topical cream 1 application, Topically, 3 times a day, # 90 Gm, 11 Refills, Maintenance, 02/10/20 11:22:00 EST, Cream, [facility]/pharmacy #[id number], 1 application Topically 3 times a day, 167, cm, 01/13/20 8:54:00 EDT, Height, 78.8, kg, 01/01/20 3:41:00 EDT, Dry Weight Start Date: 02/10/20 Status: Ordered clotrimazole 1% vaginal cream with applicator 1 application, Vaginally, Daily at bedtime, for 7 nights If 1% is not available, change to clotrimazole 2% cream vaginal hs x 3 nights, # 45 Gm, 0 Refills, Acute 08/21/20 10:16:00 EDT, 08/14/20 10:16:00 EDT, [facility]/pharmacy #1026, Partial fill up... Start Date: 08/14/20 Stop Date: 08/21/20 Status: Ordered Compression- Lower Extremity (Knee High) [...] Maintenance, 01/27/20 19:13:00 EDT, EC Capsule, [facility]/pharmacy #1026, 167, cm, 01/13/20 8:54:00 EDT, Height, 78.8, kg, 01/01/20 3:41:00 EDT, Dry Weight Start Date: 01/27/20 Status: Ordered Eliquis 5 mg oral tablet 1 tablet = 5 mg, By Mouth, 2 times a day, # 60 tablet, 11 Refills, Maintenance, 02/10/20 11:22:00 EST, Tablet, [facility]/pharmacy #1026, 167, cm, 01/13/20 8:54:00 [...] 3 Refills, Maintenance, 06/30/20 14:55:00 EDT, Tablet,[facility]/pharmacy #1026, Discontinue 30- day supply presc... Start Date: 06/30/20 Stop Date: 06/25/21 Status: Ordered ferrous sulfate 325 mg oral tablet 1 tablet = 325 mg, By Mouth, Daily, May take with food to minimize abdominal discomfort. Do not take with milk. Take preferrably with juice., # 90 tablet, 2 Refills, Maintenance, 01/22/20 9:38:00 EDT, [facility]/pharmacy #1026, 167, cm, 01/13/20 8:54:00 [...] 11 Refills, Maintenance, 01/27/20 19:13:00 EDT, [facility]/pharmacy #1026, 1 drops Eyes, Both [...] 9:08:00 EDT, Route to Pharmacy Electronically, [facility]/pharmacy #1026, 160, cm, 06/12/20 9:01:00 EST, Height, 80... Start Date: 06/24/20 Status: Ordered NovoLOG FlexPen 100 units/mL subcutaneous solution See Instructions, Inject up to 26 untis via Insulin sliding scale 3x a day w/meals,MAX daily dose 78 units, E11.65, # 45 mL, 6 Refills, Maintenance, 01/21/20 14:30:00 EDT, [facility]/pharmacy #1026, 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 Start Date: 01/21/20 Status: Ordered Pvx-rzo-lhzmi medical-grade oxford diabetic shoes, depth or hightop Sbw-ldo-ibfuh medical-grade oxford diabetic shoes, depth or hightop, [...] 08/07/20 10:25:00 EDT, Route to Pharmacy Electronically, [facility]/pharmacy #1026, Part... Start Date: 08/07/20 Stop Date: 09/04/20 Status: Ordered oxyCODONE 5 mg oral tablet 5 mg, 1, tablet, By Mouth, Every 4 hours, for 28 days, PRN pain dispense not earlier than09/04/20, #168 tablet, Refills 0, Tot. Refills 0, Acute 10/02/20 10:25:00 EDT, 09/04/20 10:25:00 EDT, Route toPharmacy Electronically, [facility]/pharmacy #1026, Parti... Start Date: 09/04/20 Stop Date: 10/02/20 Status: Ordered oxyCODONE 5 mg oral tablet 5 mg, 1, tablet, By Mouth, Every 4 hours, for 28 days, PRN pain dispense not earlier than 10/02/20, # 168 tablet, Refills 0, Tot. Refills 0, Acute 10/30/20 10:25:00 EDT, 10/02/20 10:25:00 EDT, Route to Pharmacy Electronically, [facility]/pharmacy #1026, Part... Start Date: 10/02/20 Stop Date: 10/30/20 Status: Ordered Pen [place], 32 G x 4 mm BD Ultra [...] Gm,11 Refills, Maintenance, 01/27/20 19:13:00 EDT, [facility]/pharmacy #1026, 17- 34 Gm By [...] 11:22:00 EST, Route to Pharmacy Electronically, [facility]/pharmacy #1026 Tablet, 167, cm, 01/13/20 [...] 05/01/20 9:28:00 EST, [facility],... Start Date: 05/01/20 Status: Ordered [...] 08/14/20 10:39:00 EDT, [facility] upon patient request if the prescrip... Start Date: 08/14/20 Stop Date: 08/28/20 Status: Ordered Trelegy Ellipta inhalation powder 1 puffs, Inhalation, Daily, at the same time every day given by coffee brewer , Dr Berkowitz, # 60 each, 0 [...] Date: 06/12/20 Stop Date: 09/04/20 Status: Ordered [place] Reusable Bed Pad 34 x 36 Rosebud Reusable Bed Pad 34 x 36 , [...] abnormal(Confirmed) 11 12/29/11 Active Hepatitis C(Confirmed) Active [facility] current use of opi ate analgesic-LBP(Confirmed) 12 [...] apnea)(Confirmed) Active Osteopenia(Confirmed) 18, 19 11/16/12 Active *[phone] Care Partn [facility](Confirmed) Active Peripheral venous insufficiency(Confirmed) 10/31/11 Active [...] mild sensorineural hearing loss by [facility] Hearing Evaluation on 12/29/11 12Narcotic [...] lower parathyroidectomy. 06/16/08 SURGEON: Danny Marie M.D. BRAND ANALYST: Naima Bowling M.D. 21b/l submassive PE diagnosed on Dec 20 in [facility] 22TTE 12/22/15 in [facility]: RV dilatation, RVSP 46 23Per ECHO 05/24/17 Trace mitral regurgitation , trace TC regurgitation w no significant valve pathology 24meg colo July 2009 exc for 2 hyperplastic polyps 25Colonoscopy 2004 at [facility] [place] per letter of Dr Amor Dobbins Social History Social History Type Response Smoking Status Never (less than 100 in lifetime) entered on: 06/12/20 Sex
--- OUTSIDE RECORDS SUMMARY | 2023-10-23 09:41 | XMS_ITS | Continuity of Care Document ---
Author Organization [facility] Address Unknown Care Team Providers Care Liaison Officer Name Role Phone Gayathri GARZA, Florinda Primary Care Physician [facility] Date[facility]): 02/[facility]/21 - 03/03/21 [facility] Allergies, Adverse Reactions, Alerts Substance [...] exceed 2000 mg/day) syriac, # 100 tablet, 11 Refills, Maintenance, 08/14/20 10:13:00 EDT, [facility]/pharmacy #1026, 160, cm, 08/14/20 9:34:00 EDT, Height, [...] 11 Refills, Maintenance, 01/18/21 18:00:00 EDT, Tablet, [facility]/pharmacy #1026, 160, cm, 10/22/20 9:15:00 EDT, Height, 80.6, kg, 06/03/20 19:00:00 EST, Dry Weight Start Date: 01/18/21 Status: Ordered escitalopram 20 mg oral tablet 1 tablet = 20 mg, By Mouth, Daily, Discontinue duloxetine 60 mg, # 30 tablet, 11 Refills, Maintenance, 12/09/20 11:15:00 EDT, Tablet, [facility]/pharmacy #1026, Partial fill upon patient request if [...] 78.8, kg,... Start Date: 01/21/20 Status: Ordered Jtw-qto-fuvhp medical-grade oxford diabetic shoes, depth or hightop Utj-nql-papzk medical-grade oxford diabetic shoes, depth or hightop, [...] days, PRN pain dispense not earlier than 02/19/21 If oxycodone 5 mg tablet is not available, it can be switched to oxycodone 10 mg 0.5 tablets 4 [id number] days for 84 tablets, # 168 tablet, Refills 0,... Start Date: 02/19/21 Stop Date: 03/19/21 Status: Ordered oxyCODONE 5 mg oral tablet 5 mg, 1, tablet, By Mouth, Every 4 hours, for 28 days, PRN pain dispense not earlier than 03/19/21 If oxycodone 5 mg tablet is not available, it can be switched to oxycodone 10 mg 0.5 tablets 4 [id number] days for 84 tablets, # 168 tablet, Refills 0,... Start Date: 03/19/21 Stop Date: 04/16/21 Status: Ordered oxyCODONE 5 mg oral tablet 5 mg, 1, tablet, By Mouth, Every 4 hours, for 28 days, PRN pain dispense not earlier than 04/16/21 Ifoxycodone 5 mg tablet is not available, it can be switched to oxycodone 10 mg 0.5 tablets 4 hours x28 days for 84 tablets, # 168 tablet, Refills 0, T... Start Date: 04/16/21 Stop Date: 05/14/21 Status: Ordered Pen [place], 32 G x 4 mm BD Ultra [...] Gm,11 Refills, Maintenance, 01/27/20 19:13:00 EDT, [facility]/pharmacy #1026, 17- 34 Gm By Mouth Daily,PRN:asneeded [...] 10 mg oral tablet See Instructions, [facility], # 30 tablet, 5 Refills, Maintenance, [id number], 160, cm, 10/22/20 9:15:00 EDT, Height, 80.6, kg, 06/03/20 19:00:00 EST, Dry Weight Start Date: 11/13/20 Status: Ordered Senna 8.6 mg oral tablet 17.2 mg, 2, tablet, By Mouth, 2 times a day, PRN, discontinue docusate, # 60 tablet, Refills 11, Tot. Refills 11, Maintenance, for constipation, 02/10/20 11:22:00 EST, Route to Pharmacy Electronically, [facility]/pharmacy #1026 Tablet, 167, cm, 01/13/20 8:5... Start [...] 02/22/21 17:50:00 EST, Route to Pharmacy Electronically, [facility]/pharmacy #1026, 1... Start Date: 02/22/21 Status: Ordered [...] 02/15/21 11:39:00 EST, Route to Pharmacy Electronically, [facility]/pharmacy #1026,Partial fill upon patient request if the prescrip... Start Date: 02/15/21 Stop Date: 03/29/21 Status: Ordered Trelegy Ellipta inhalation powder 1 puffs, Inhalation, Daily, at the same time every day given by heater installer , Dr Berkowitz, # 60 each, 0 [...] Gm, 5 Refills, Maintenance, 11/09/20 12:36:00 EDT, [facility]/pharmacy #1026, 160, cm, 10/22/20 9:15:00 EDT, Height, [...] Date: 02/15/21 Stop Date: 05/10/21 Status: Ordered [place] Reusable Bed Pad 34 x 36 [place] Reusable Bed Pad 34 x 36 , [...] 11 Refills, Maintenance, 10/22/20 10:19:00 EDT, Tablet, [facility]/pharmacy #1026, Partial fill upon patient request if the prescription is for a schedule II opioid drug., 1 tablet B... Start Date: 10/22/20 Status: Ordered Zofran 4 mg oral tablet 1 tablet = 4 mg, By Mouth, Every 8 hours, PRN Nausea & Vomiting, # 15 tablet, 1 Refills, Maintenance, 09/10/20 9:48:00 EDT, Tablet, [facility]/pharmacy #1026, Partial fill upon patient request if [...] abnormal(Confirmed) 11 12/29/11 Active Hepatitis C(Confirmed) Active retirement current use of opi ate analgesic-LBP(Confirmed) 12 [...] apnea)(Confirmed) Active Osteopenia(Confirmed) 18, 19 11/16/12 Active *[phone] Care Partn [facility](Confirmed) Active Peripheral venous insufficiency(Confirmed) 10/31/11 Active Positive [...] 2 peroneal veins diagnosed on Dec 20 [facility] 6insulin dependent 7Per ECHO 05/24/1718 Grade [...] 11left mild sensorineural hearing loss by [facility] Hearing Evaluation on 12/29/11 12Narcotic [...] lower parathyroidectomy. 06/16/08 SURGEON: Danny Marie M.D. SENIOR DIRECTOR CREATIVE SERVICES: Naima Bowling M.D. 21b/l submassive PE diagnosed on Dec 20 in [facility] 22TTE 12/22/15 in [facility]: RV dilatation, RVSP 46 23Per ECHO 05/24/17 Trace mitral regurgitation , trace TC regurgitation w no significant valve pathology 24meg colo July 2009 exc for 2 hyperplastic polyps 25Colonoscopy 2004 at [facility] [place] per letter of Dr Amor Dobbins Social History Social History Type Response Smoking Status Never (less than 100 in lifetime) entered on: 10/22/20 Sex
--- OUTSIDE RECORDS SUMMARY | 2023-10-23 09:41 | XMS_ITS | Continuity of Care Document ---
Author Organization [facility] Address [address] [place] [address]- Care Team Providers Care Sheet Layer Name Role Phone Gayathri GARZA, Florinda Primary Care Physician [facility]): 04/21/20 - 05/21/20 [facility] [address] [place], [place] [address] Allergies, Adverse Reactions, Alerts Substance Reaction Severity [...] by melissa chiu 7Admin Note: ADMINISTERED BY Jason 8Result Comment: [05/13/2014] Ordered by Kendall 9Result Comment: [05/13/2014] Ordered by Kendall 10Result Comment: [10/16/2012] ORDERED BY 11Admin Note: VIS 01/13/09 GIVEN 12Admin Note: ADMINISTERED BY RN 13Admin Note: VIS 02/26/08 GIVEN Medications acetaminophen 500 mg oral tablet 2 tablet = 1,000 mg, By Mouth, Every 6 hours, PRN as needed for pain or fever, (not to exceed 2000 mg/day) luxembourger, # 100 tablet, 5 Refills, Maintenance, 01/22/20 9:18:00 EDT, [facility]/pharmacy #1026, 167, cm, 01/13/20 8:54:00 EDT, Height, [...] 01/21/21 19:13:00 EDT, 01/27/20 19:13:00 EDT, Tablet, [facility]/pharmacy #1026, 167, cm, 01/13/20 8:54:00 EDT, Height, 78.8, kg, 01/01/20 3:41:00 EDT, Dry... Start Date: 01/27/20 Stop Date: 01/21/21 Status: Ordered capsaicin 0.025% topical cream 1 application, Topically, 3 times a day, # 90 Gm, 11 Refills, Maintenance, 02/10/20 11:22:00 EST, Cream, [facility]/pharmacy #1026, 1 application Topically 3 times a [...] Refills, Maintenance, 01/27/20 19:13:00 EDT, EC Capsule, [facility]/pharmacy #1026, 167, cm, 01/13/20 8:54:00 EDT, Height, 78.8, kg, 01/01/20 3:41:00 EDT, Dry Weight Start Date: 01/27/20 Status: Ordered Eliquis 5 mg oral tablet 1 tablet = 5 mg, By Mouth, 2 times a day, # 60 tablet, 11 Refills, Maintenance, 02/10/20 11:22:00 EST, Tablet, [facility]/pharmacy #1026, 167, cm, 01/13/20 8:54:00 EDT, Height, 78.8, kg, 01/01/20 3:41:00 EDT, Dry Weight Start Date: 02/10/20 Status: Ordered enalapril 10 mg oral tablet 10 mg, 1, tablet, By Mouth, Daily, discontinue hydrochlorothiazide, # 30 tablet, Refills 11, Tot. Refills 11, Maintenance, 04/29/20 13:04:00 EST, Route to Pharmacy Electronically, [facility]/pharmacy #1026,167, cm, 04/29/20 9:24:00 EST, Height, 82, kg, ... Start Date: 04/29/20 Status: Ordered famotidine 40 mg oral tablet 1 tablet = 40 mg, By Mouth, Daily at bedtime, If 40 mg tablet is not available, can change to 20 mgtablet 2 tablet at bedtime, # 30 tablet, 2 Refills, Maintenance, 04/04/20 16:07:00 EST, Tablet, [facility]/pharmacy #1026, 167, cm, 02/24/20 17:04:00 EST, Hei... Start Date: 04/04/20 Status: Ordered ferrous sulfate 325 mg oral tablet 1 tablet = 325 mg, By Mouth, Daily, May take with food to minimize abdominal discomfort. Do not take with milk. Take preferrably with juice., # 90 tablet, 2 Refills, Maintenance, 01/22/20 9:38:00 EDT, [facility]/pharmacy #1026, 167, cm, 01/13/20 8:54:00 EDT,... Start [...] capsule, 4 Refills, Maintenance, 01/22/20 9:39:00 EDT, [facility]/pharmacy #1026, 167, cm, 01/13/20 8:54:00 EDT, Height, 78.8, kg, 01/01/20 3:41:00 EDT, Dry Weight Start Date: 01/22/20 Stop Date: 06/20/20 Status: Ordered ketotifen 0.025% ophthalmic solution 1 drops, Eyes, Both, Every 12 hours, PRN as needed for eye allergy, # 7.5 mL, 11 Refills, Maintenance, 01/27/20 19:13:00 EDT, [facility]/pharmacy #1026, 1 drops Eyes, Both Every 12 [...] 01/22/20 9:41:00 EDT, Route to Pharmacy Electronically, [facility]/pharmacy #1026, 167, cm, 01/13/20 8:54:00 EDT, Height, 78... Start Date: 01/22/20 Status: Ordered NovoLOG FlexPen 100 units/mL subcutaneous solution See Instructions, Inject up to 26 untis via Insulin sliding scale 3x a day w/meals,MAX daily dose 78 units, E11.65, # 45 mL, 6 Refills, Maintenance, 01/21/20 14:30:00 EDT, [facility]/pharmacy #1026, 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 Start Date: 01/21/20 Status: Ordered Jgm-ejq-nwixw medical-grade oxford diabetic shoes, depth or hightop Thw-cli-plnqk medical-grade oxford diabetic shoes, depth or hightop, [...] EST, 05/15/20 10:25:00 EST, Route toPharmacy Electronically, [facility]/pharmacy #1026, Parti... Start Date: 05/15/20 Stop Date: 06/12/20 Status: Ordered oxyCODONE 5 mg oral tablet 5 mg, 1, tablet, By Mouth, Every 4 hours, for 28 days, PRN pain dispense not earlier than 06/12/20, #168 tablet, Refills 0, Tot. Refills 0, Acute 07/10/20 10:25:00 EDT, 06/12/20 10:25:00 EST, Route toPharmacy Electronically, [facility]/pharmacy #1026, Parti... Start Date: 06/12/20 Stop Date: 07/10/20 Status: Ordered oxyCODONE 5 mg oral tablet 5 mg, 1, tablet, By Mouth, Every 4 hours, for 28 days, PRN pain dispense not earlier than 07/10/20, #168 tablet, Refills 0, Tot. Refills 0, Acute 08/07/20 10:25:00 EDT, 07/10/20 10:25:00 EDT, Route toPharmacy Electronically, [facility]/pharmacy #1026, Parti... Start Date: 07/10/20 Stop Date: 08/07/20 Status: Ordered Pen [place], 32 G x 4 mm BD Ultra [...] Gm,11 Refills, Maintenance, 01/27/20 19:13:00 EDT, [facility]/pharmacy #1026, 17- 34 Gm By Mouth Daily,PRN:asneeded [...] 02/10/20 11:22:00 EST, Route to Pharmacy Electronically, [facility]/pharmacy #1026 Tablet, 167, cm, 01/13/20 8:5... Start [...] 05/01/20 9:28:00 EST, Route to Pharmacy Electronically, [facility]/pharmacy #1026, 167,... Start Date: 05/01/20 Status: Ordered TENS electrode pads TENS electrode pads, See Instructions, # 1 box, Refills 5, Tot. Refills 5, Maintenance, use as directed for back pain Dx LBP M54.9 1 box of 4, 12/06/16 14:59:01, Compound Start Date: 12/06/16 Status: Ordered Trelegy Ellipta inhalation powder 1 puffs, Inhalation, Daily, at the same time every day given by security associate , Dr Berkowitz, # 60 each, 0 Refills, Maintenance, 11/20/19 13:03:00 EDT, Powder Start Date: 11/20/19 Status: Ordered Tresiba FlexTouch 200 units/mL subcutaneous solution See Instructions, Inject 86 units daily at 9pm, E11.65, # 45 mL, 6 Refills, Maintenance, 01/21/20 14:30:00 EDT, [facility]/pharmacy #1026, 167, cm, 01/13/20 8:54:00 EDT, Height, [...] Dry Weight Start Date: 04/15/20 Status: Ordered Riva Reusable Bed Pad 34 x 36 Riva Reusable Bed Pad 34 x 36 , [...] abnormal(Confirmed) 11 12/29/11 Active 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 06/16/08 SURGEON: Danny Marie M.D. WOODS MANAGER: Naima Bowling M.D. 21b/l submassive PE diagnosed on Dec 20 in [facility] 22TTE 12/22/15 in [facility]: RV dilatation, RVSP 46 23Per ECHO 05/24/17 Trace mitral regurgitation , trace TC regurgitation w no significant valve pathology 24meg colo July 2009 exc for 2 hyperplastic polyps 25Colonoscopy 2004 at [facility] [place] per letter of Dr Amor Dobbins Social History Social History Type Response Smoking Status Never (less than 100 in lifetime) entered on: 04/29/20 Sex
--- OUTSIDE RECORDS SUMMARY | 2023-10-23 09:41 | XMS_ITS | Continuity of Care Document ---
Author Organization [facility] Address [address] [place] [address]- Care Team Providers Care Lineworker Name Role Phone Gayathri GARZA, Florinda Primary Care Physician [facility]): [facility]20 - 03/26/20 [facility] [address] [place] [address] [place] [address]- Attending Physician: Admtr, Ar8 Allergies, Adverse Reactions, [...] or fever, (not to exceed 2000 mg/day) yoruba, # 100 tablet, 5 Refills, Maintenance, 01/22/20 [...] tablet, 11 Refills, Maintenance, 01/26/2019:13:00 EDT, Tablet, [facility]/pharmacy #1026, 2 tablet By Mouth 2 times a day,x30 days,Instr:calcium citrate, 167, cm, 01/13/20 8:54:00 EDT, Height, 78.8... Start Date: 01/27/20 Stop Date: 01/21/21 Status: Ordered capsaicin 0.025% topical cream 1 application, Topically, 3 times a day, # 90 Gm, 11 Refills, Maintenance, 02/10/20 11:22:00 EST, Cream, [facility]/pharmacy #1026, 1 application Topically 3 times [...] Refills, Maintenance, 01/27/20 19:13:00 EDT, EC Capsule, [facility]/pharmacy #1026, 167, cm, 01/13/20 8:54:00 EDT, Height, 78.8, kg, 01/01/20 3:41:00 EDT, Dry Weight Start Date: 01/27/20 Status: Ordered Eliquis 5 mg oral tablet 1 tablet = 5 mg, By Mouth, 2 times a day, # 60 tablet, 11 Refills, Maintenance, 02/10/20 11:22:00 EST, Tablet, [facility]/pharmacy #1026, 167, cm, 01/13/20 8:54:00 EDT, Height, 78.8, kg, 01/01/20 3:41:00 EDT, Dry Weight Start Date: 02/10/20 Status: Ordered famotidine 40 mg oral tablet 1 tablet = 40 mg, By Mouth, Daily at bedtime, If 40 mg tablet is not available, can change to 20 mgtablet 2 tablet at bedtime, # 30 tablet, 2 Refills, Maintenance, 01/22/20 9:37:00 EDT, Tablet, [facility]/pharmacy #1026, 167, cm, 01/13/20 8:54:00 EDT, Heigh... Start Date: 01/22/20 Status: Ordered ferrous sulfate 325 mg oral tablet 1 tablet = 325 mg, By Mouth, Daily, May take with food to minimize abdominal discomfort. Do not take with milk. Take preferrably with juice., # 90 tablet, 2 Refills, Maintenance, 01/22/20 9:38:00 EDT, [facility]/pharmacy #1026, 167, cm, 01/13/20 8:54:00 EDT,... [...] capsule, 4 Refills, Maintenance, 01/22/20 9:39:00 EDT, [facility]/pharmacy #1026, 167, cm, 01/13/20 8:54:00 EDT, Height, 78.8, kg, 01/01/20 3:41:00 EDT, Dry Weight Start Date: 01/22/20 Stop Date: 06/20/20 Status: Ordered ketotifen 0.025% ophthalmic solution 1 drops, Eyes, Both, Every 12 hours, PRN as needed for eye allergy, # 7.5 mL, 11 Refills, Maintenance, 01/27/20 19:13:00 EDT, [facility]/pharmacy #1026, 1 [...] 01/22/20 9:41:00 EDT, Route to Pharmacy Electronically, [facility]/pharmacy #1026, 167, cm, 01/13/20 8:54:00 EDT, Height, 78... Start Date: 01/22/20 Status: Ordered NovoLOG FlexPen 100 units/mL subcutaneous solution See Instructions, Inject up to 26 untis via Insulin sliding scale 3x a day w/meals,MAX daily dose 78 units, E11.65, # 45 mL, 6 Refills, Maintenance, 01/21/20 14:30:00 EDT, [facility]/pharmacy #1026, 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 Start Date: 01/21/20 Status: Ordered Buj-lsg-wowyk medical-grade oxford diabetic shoes, depth or hightop Wjs-gox-zzknu medical-grade oxford diabetic shoes, depth or hightop, [...] 03/18/20 10:25:00 EST, Route to Pharmacy Electronically, [facility]/pharmacy #1... Start Date: 03/18/20 Stop Date: 04/15/20 Status: Ordered oxyCODONE 5 mg oral tablet 5 mg, 1, tablet, By Mouth, Every 4 hours, for 28 days, PRN pain dispense not earlier than 04/15/20 3 of 3, # 168 tablet, Refills 0, Tot. Refills 0, Acute 05/13/20 10:25:00 EST, 04/15/20 10:25:00 EST, Route to Pharmacy Electronically, [facility]/pharmacy #10... Start Date: 04/15/20 Stop Date: 05/13/20 Status: Ordered Pen [place], 32 G x 4 mm BD Ultra [...] 527 Gm,11 Refills, Maintenance, 01/27/20 19:13:00 EDT, [facility]/pharmacy #1026, 17- 34 Gm By Mouth [...] 02/10/20 11:22:00 EST, Route to Pharmacy Electronically, [facility]/pharmacy #1026 Tablet, 167, cm, 01/13/20 8:5... [...] 01/22/20 9:43:00 EDT, Route to Pharmacy Electronically, [facility]/pharmacy #1026, 167,... Start Date: 01/22/20 Status: Ordered TENS electrode pads TENS electrode pads, See Instructions, # 1 box, Refills 5, Tot. Refills 5, Maintenance, use as directed for back pain Dx LBP M54.9 1 box of 4, 12/06/16 14:59:01, Compound Start Date: 12/06/16 Status: Ordered Trelegy Ellipta inhalation powder 1 puffs, Inhalation, Daily, at the same time every day given by training personnel supervisor , Dr Berkowitz, # 60 each, [...] Dry Weight Start Date: 01/22/20 Status: Ordered [place]ton Reusable Bed Pad 34 x 36 Clifton Reusable Bed Pad 34 x 36 , [...] apnea)(Confirmed) Active Osteopenia(Confirmed) 18, 19 11/16/12 Active *[id number] [facility](Confirmed) Active Peripheral venous insufficiency(Confirmed) 10/31/11 Active [...] peroneal veins diagnosed on Dec 20 [facility] 6insulin dependent 7Per ECHO 05/24/1718 [...] lower parathyroidectomy. 06/16/08 SURGEON: Danny Marie M.D. ICU MANAGER: Naima Bowling M.D. 21b/l submassive PE diagnosed on Dec 20 in [facility] 22TTE 12/22/15 in [facility]: RV dilatation, RVSP 46 23Per ECHO 05/24/17 Trace mitral regurgitation , trace TC regurgitation w no significant valve pathology 24meg colo July 2009 exc for 2 hyperplastic polyps 25Colonoscopy 2004 at [facility] [place] per letter of Dr Amor Dobbins Social History Social History Type Response Smoking Status Never (less than 100 in lifetime) entered on: 12/25/19 Sex
--- OUTSIDE RECORDS SUMMARY | 2023-10-23 09:41 | XMS_ITS | Continuity of Care Document ---
Author Organization [facility] Address [address] [place] [address]- Care Team Providers Care President & Ceo Name Role Phone Gayathri GARZA, Florinda Primary Care Physician [facility] Date(s): 04/27/22 - 05/27/22 [facility] [address] [place] [address]- Allergies, Adverse Reactions, Alerts Substance Reaction Severity Status penicillin RASH Active morphine itchy Active Bactrim 1 hyperkalemia Active Lidocaine, Topical Active 1Hyperkalemia when used together with lisinopril Immunizations Given and Recorded Vaccine Date Status Refusal Reason [id number] 12y+ bivalent booster vax 05/25/22 Given influenza [...] zoster vaccine, inactivated 09/15/21 Given SARS-CoV-2 mRNA ([id number]) vax 09/15/21 Given SARS-CoV-2 (COVID-19) mRNA BNT-162b2 [...] Refills, Maintenance, 05/25/22 12:08:00 EST, ER Tablet, [facility]/pharmacy #0838, Discontinue Motrin, 158, cm, [...] Gm, 11 Refills, Maintenance, 07/21/21 12:43:00 EDT, [facility]/pharmacy #1026, 1 applicator Topically 2 times a day, 160, cm, 07/21/21 10:22:00 EDT, Height, 80.6, kg, 06/03/20 19:00:00 EST, Dry Weight Start Date: 07/21/21 Status: Ordered Baqsimi Two Pack 3 mg nasal powder = 3 mg, Naris, Right, Once, Please use for a low blood sugar emergency, may repeat in 15 minutes, #1 each, 3 Refills, Soft Stop, 03/09/22 11:35:00 EST, [facility]/pharmacy #0838, 160, cm, 03/09/22 10:43:00EST, Height, 78, kg, 01/14/22 19:37:00 EDT, Dry W... Start Date: 03/09/22 Status: Ordered Biotene Moisturizing Mouth oral spray See Instructions, [place] directly into mouth; spray is safe to swallow as needed for dry mouth, # 45mL, 11 Refills, Maintenance, 05/25/22 12:42:00 EST, [facility]/pharmacy #0838, Partial fill upon patient [...] needed for anxiety and 1tab at HS [id number], # 60 tablet, 11 Refills, Maintenance, 09/15/21 [...] Refills, Maintenance, 12/06/21 15:04:00 EDT, Tablet, [facility], Partial fill upon patient request [...] 04/19/22 10:15:00 EST, Route to Pharmacy Electronically, [facility]/pharmacy #0838, Partial fill upon patient request if the prescription is for a schedule II opioi... Start Date: 04/19/22 Status: Ordered ketotifen 0.025% ophthalmic solution 1 drops, Eyes, Both, Every 12 hours, PRN as needed for eye allergy, # 7.5 mL, 11 Refills, Maintenance, 06/25/21 8:34:00 EDT, [facility]/pharmacy #1026, 1 drops Eyes, Both [...] 90 tablet, 3 Refills, 03/09/22 11:57:00 EST, [facility]/pharmacy #0838, 1 tablet By Mouth Daily before dinner,PRN:allergies, 160, cm, 03/09/22 10:43:00 EST, Height, 78, kg, 01/14/22 19:37:00 ED... Start Date: 03/09/22 Status: Ordered montelukast 10 mg oral tablet 10 mg, 1, tablet, By Mouth, Daily at bedtime, # 90 tablet, Refills 3, Tot. Refills 3, Maintenance, 03/09/22 11:37:00 EST, Route to Pharmacy Electronically, [facility]/pharmacy #0838, 160, cm, 03/09/22 10:43:00 EST, Height, 78, kg, 01/14/22 19:37:00 EDT, Dry... Start Date: 03/09/22 Stop Date: 03/04/23 Status: Ordered Nexium 40 mg oral enteric coated capsule 1 capsule = 40 mg, By Mouth, Daily, 30 minutes before breakfast, # 30 capsule, 2 Refills, Maintenance, 05/02/22 15:39:00 EST, [facility]/pharmacy #0838, Discontinue pantoprazole, 160, cm, [...] 03/09/22 11:54:00 EST, Route to Pharmacy Electronically, [facility]/pharmacy #0838, 160, cm, 03/09/22 10:43:00 [...] 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 Start Date: 03/09/22 Status: Ordered Skn-dwy-sjgsz medical-grade oxford diabetic shoes, depth or hightop Rri-rmk-pppdw medical-grade oxford diabetic shoes, depth or hightop, [...] 05/27/22 Stop Date: 06/24/22 Status: Ordered Pen [place], 32 G x 4 mm BD Ultra [...] the same time every day Given by Sign Painter Helper, Dr. Michael Berkowitz, # 60 each, 0 [...] Gm, 5 Refills, Maintenance, 11/09/20 12:36:00 EDT, [facility]/pharmacy #1026, 160, cm, 10/22/20 9:15:00 EDT, Height, 80.6, kg, 06/03/20 19:00:00 EST,... 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 6insulin dependent 7Per ECHO 05/24/1718 [...] [facility]11 12Narcotic contract [...] lower parathyroidectomy. 06/16/08 SURGEON: Danny Marie M.D. FULLER BRUSH MAN: Naima Bowling M.D. 22b/l submassive PE diagnosed on Dec [address] [facility] 23TTE 12/22/[address] [facility]: RV dilatation, RVSP 46 24Per ECHO 05/24/17 Trace mitral regurgitation , trace TC regurgitation w no significant valve pathology 25meg colo July 2009 exc for 2 hyperplastic polyps 26Colonoscopy 2004 at [facility] [place] per letter of Dr Amor Dobbins Social History Social History Type Response Smoking Status Never (less than 100 in lifetime) entered on: 10/22/20 Sex Patient Care team information Care Team Personnel Name: Diamond Weiss RN Position: [facility] RN Member Role: Primary Care Nurse Name: Tiara Cavazos RN Position: [facility] OB RN Member Role: Primary Care Nurse Name: Shreya Boss RN Position: [facility] RN Member Role: Primary Care Nurse Name: Virginia Benson RN Position: [facility] RN Member Role: Primary Care Nurse Name: Jaylin Hernandez RN Position: [facility] Onco RN Member Role: Primary Care Nurse Name: Glen Cota MD Position: [facility] Renal MD Member Role: Lifetime Consulting Physician Address: Address: [address] [place] [address] [facility] [place] [address]- Name: Florinda Trinh MD Position: [facility] Primary Care Physician Member Role: PCP Address: Address: [address] [place] [address] Care Team Related Persons Name: JOSE ELIAS TODD Address: [place] [address] Name: JOSE ELIAS KIRKLAND Address: home [address] [place] [address] Name: LEONIE SCHRADER Address: [place] [address]
--- OUTSIDE RECORDS SUMMARY | 2023-10-23 09:41 | XMS_ITS | Continuity of Care Document ---
Author Organization [facility] Address [address] [place] [address]- Care Team Providers Care Fur Nailer Name Role Phone Gayathri GARZA, Florinda Primary Care Physician [facility] Date[facility]s): 04/27/22 - 05/27/22 [facility] [address] [place] [address]- Allergies, Adverse Reactions, Alerts Substance Reaction Severity Status penicillin RASH Active morphine itchy Active Bactrim 1 hyperkalemia Active Lidocaine, Topical Active 1Hyperkalemia when used together with lisinopril Immunizations Given and Recorded Vaccine Date Status Refusal Reason [id number] 12y+ bivalent booster vax 05/25/22 Given influenza [...] zoster vaccine, inactivated 09/15/21 Given SARS-CoV-2 mRNA (nyuikyn-rpcz-haegv) vax 09/15/21 Given SARS-CoV-2 (COVID-19) mRNA BNT-162b2 [...] Refills, Maintenance, 05/25/22 12:08:00 EST, ER Tablet, [facility]/pharmacy #0838, Discontinue Motrin, 158, cm, [...] Gm, 11 Refills, Maintenance, 07/21/21 12:43:00 EDT, [facility]/pharmacy #1026, 1 applicator Topically 2 times a day, 160, cm, 07/21/21 10:22:00 EDT, Height, 80.6, kg, 06/03/20 19:00:00 EST, Dry Weight Start Date: 07/21/21 Status: Ordered Baqsimi Two Pack 3 mg nasal powder = 3 mg, Naris, Right, Once, Please use for a low blood sugar emergency, may repeat in 15 minutes, #1 each, 3 Refills, Soft Stop, 03/09/22 11:35:00 EST, [facility]/pharmacy #0838, 160, cm, 03/09/22 10:43:00EST, Height, 78, kg, 01/14/22 19:37:00 EDT, Dry W... Start Date: 03/09/22 Status: Ordered Biotene Moisturizing Mouth oral spray See Instructions, [place] directly into mouth; spray is safe to swallow as needed for dry mouth, # 45mL, 11 Refills, Maintenance, 05/25/22 12:42:00 EST, [facility]/pharmacy #0838, Partial fill upon patient [...] needed for anxiety and 1tab at HS sazoji-szi-oqugd, # 60 tablet, 11 Refills, Maintenance, 09/15/21 [...] 11 Refills, Maintenance, 12/06/21 15:04:00 EDT, Tablet, [facility], Partial fill upon patient [...] 04/19/22 10:15:00 EST, Route to Pharmacy Electronically, [facility]/pharmacy #[id number], Partial fill upon patient [...] 90 tablet, 3 Refills, 03/09/22 11:57:00 EST, [facility]/pharmacy #0838, 1 tablet By Mouth Daily before dinner,PRN:allergies, 160, cm, 03/09/22 10:43:00 EST, Height, 78, kg, 01/14/22 19:37:00 ED... Start Date: 03/09/22 Status: Ordered montelukast 10 mg oral tablet 10 mg, 1, tablet, By Mouth, Daily at bedtime, # 90 tablet, Refills 3, Tot. Refills 3, Maintenance, 03/09/22 11:37:00 EST, Route to Pharmacy Electronically, [facility]/pharmacy #0838, 160, cm, 03/09/22 10:43:00 EST, Height, 78, kg, 01/14/22 19:37:00 EDT, Dry... 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 Start Date: 03/09/22 Status: Ordered Kda-ubt-afses medical-grade oxford diabetic shoes, depth or hightop Rgr-krd-qbcnu medical-grade oxford diabetic shoes, depth or hightop, [...] 05/27/22 Stop Date: 06/24/22 Status: Ordered Pen [place], 32 G x 4 mm BD Ultra [...] the same time every day Given by Intern, Dr. 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 06/16/08 SURGEON: Danny Marie M.D. PILOT CONTROL OPERATOR: Naima Bowling M.D. 22b/l submassive PE diagnosed on Dec 20 in [facility] 23TTE 12/22/15 in [facility]: RV dilatation, RVSP 46 24Per ECHO 05/24/17 Trace mitral regurgitation , trace TC regurgitation w no significant valve pathology 25meg colo July 2009 exc for 2 hyperplastic polyps 26Colonoscopy 2004 at [facility] [place] per letter of Dr Amor Dobbins Social History Social History Type Response Smoking Status Never (less than 100 in lifetime) entered on: 10/22/20 Sex Patient Care team information Care Team Personnel Name: Diamond Weiss RN Position: [facility] RN Member Role: Primary Care Nurse Name: Tiara Cavazos RN Position: [facility] OB RN Member Role: Primary Care Nurse Name: Shreya Boss RN Position: [facility] RN Member Role: Primary Care Nurse Name: Virginia Benson RN Position: [facility] RN Member Role: Primary Care Nurse Name: Jaylin Hernandez RN Position: [facility] Onco RN Member Role: Primary Care Nurse Name: Glen Cota MD Position: [facility] Renal MD Member Role: Lifetime Consulting Physician Address: Address: [address] [place] [address] [facility] [place] [address]- Name: Florinda Trinh MD Position: [facility] Primary Care Physician Member Role: PCP Address: Address: [address] [place] [address] Care Team Related Persons Name: JOSE ELIAS TODD Address: [place] [address] Name: JOSE ELIAS KIRKLAND Address: home [address] [place] [id number] Name: LEONIE SCHRADER Address: [place] [address]
--- OUTSIDE RECORDS SUMMARY | 2023-10-23 09:42 | XMS_ITS | Continuity of Care Document ---
Author Organization [facility] Address Unknown Care Team Providers Care Surface Grinder Name Role Phone Gayathri GARZA, Florinda Primary Care Physician [facility] 11[facility]20[facility]20 - 12/20/20 [facility] Allergies, Adverse Reactions, Alerts Substance Reaction Severity [...] tablet, 11 Refills, Maintenance, 08/14/20 10:13:00 EDT, [facility]/pharmacy #1026, 160, cm, 08/14/20 [...] 11 Refills, Maintenance, 02/10/20 11:22:00 EST, Tablet, [facility]/pharmacy #1026, 167, cm, 01/13/20 [...] capsule, 3 Refills, Maintenance, 10/22/20 10:35:00 EDT, [facility]/pharmacy #1026, 160, cm, 10/22/20 [...] mL, 6 Refills, Maintenance, 01/21/20 14:30:00 EDT, [facility]/pharmacy #1026, 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 Start Date: 01/21/20 Status: Ordered Qqr-ehj-csonm medical-grade oxford diabetic shoes, depth or hightop Jrv-vls-unbad medical-grade oxford diabetic shoes, depth or hightop, [...] Refills 0, Tot. Refills 0, Acute 12/25/20 16:00:00 EDT, 11/27/20 16:00:00 EDT, Route to Pharmacy Electronically, [facility]/pharmacy #1026, Part... Start Date: 11/27/20 Stop Date: 12/25/20 Status: Ordered oxyCODONE 5 mg oral tablet 5 mg, 1, tablet, By Mouth, Every 4 hours, for 28 days, PRN pain dispense not earlier than 12/25/20, # 168 tablet, Refills 0, Tot. Refills 0, Acute 01/22/21 10:25:00 EDT, 12/25/20 10:25:00 EDT, Route to Pharmacy Electronically, [facility]/pharmacy #1026, Part... Start Date: 12/25/20 Stop Date: 01/22/21 Status: Ordered Pen [place], 32 G x 4 mm BD Ultra [...] 527 Gm,11 Refills, Maintenance, 01/27/20 19:13:00 EDT, [facility]/pharmacy #1026, 17- 34 Gm By Mouth Daily,PRN:asneeded for constipation,Instr:(dissolve in water or... Start Date: 01/27/20 Status: Ordered Protonix 40 mg oral delayed release tablet 1 tablet = 40 mg, By Mouth, Daily, Take 30 minutes before dinner, # 30 tablet, 11 Refills, Maintenance, 07/27/20 14:45:00 EDT, 160, cm, 03/05/21 9:01:00 EST, Height, 80.6, kg, 06/03/20 19:00:00 [...] 30 tablet, 5 Refills, Maintenance, [facility], 160, cm, 10/22/20 9:15:00 EDT, Height, 80.6, kg, 06/03/20 19:00:00 EST, Dry Weight Start Date: 11/13/20 Status: Ordered Senna 8.6 mg oral tablet 17.2 mg, 2, tablet, By Mouth, 2 times a day, PRN, discontinue docusate, # 60 tablet, Refills 11, Tot. Refills 11, Maintenance, for constipation, 02/10/20 11:22:00 EST, Route to Pharmacy Electronically, [facility]/pharmacy #1026 Tablet, 167, cm, [...] Maintenance, 10/15/20 16:28:00 EDT, Routeto Pharmacy Electronically, [facility]/pharmacy #1026, 160... Start Date: 10/15/20 Status: Ordered TENS electrode pads TENS electrode pads, See Instructions, # 1 box, Refills 5, Tot. Refills 5, Maintenance, use as directed for back pain Dx LBP M54.9 1 box of 4, 12/06/16 14:59:01, Compound Start Date: 12/06/16 Status: Ordered Trelegy Ellipta inhalation powder 1 puffs, Inhalation, Daily, at the same time every day given by vest busheler , Dr Berkowitz, # 60 each, 0 [...] Date: 09/22/20 Stop Date: 12/15/20 Status: Ordered [place] Reusable Bed Pad 34 [...] 11 Refills, Maintenance, 10/22/20 10:19:00 EDT, Tablet, [facility]/pharmacy #1026, Partial fill upon patient request if the prescription is for a schedule II opioid drug., 1 tablet B... Start Date: 10/22/20 Status: Ordered Zofran 4 mg oral tablet 1 tablet = 4 mg, By Mouth, Every 8 hours, PRN Nausea & Vomiting, # 15 tablet, 1 Refills, Maintenance, 09/10/20 9:48:00 EDT, Tablet, [facility]/pharmacy #1026, Partial fill upon [...] abnormal(Confirmed) 11 12/29/11 Active Hepatitis C(Confirmed) Active [facility] current use of opi ate analgesic-LBP(Confirmed) 12 [...] apnea)(Confirmed) Active Osteopenia(Confirmed) 18, 19 11/16/12 Active *[id number] Care Partn igor More(Confirmed) Active Peripheral venous [...] 11left [facility] 12Narcotic contract [...] lower parathyroidectomy. 06/16/08 SURGEON: Danny Marie M.D. CAPACITY PLANNING ENGINEER: Naima Bowling M.D. 21b/l submassive PE diagnosed on Dec 20 in [facility] TTE 12/22/15 in [facility]: RV dilatation, RVSP 46 23Per ECHO 05/24/17 Trace mitral regurgitation , trace TC regurgitation w no significant valve pathology 24meg colo July 2009 exc for 2 hyperplastic polyps 25Colonoscopy 2004 at [facility] [place] per letter of Dr Amor Dobbins Social History Social History Type Response Smoking Status Never (less than 100 in lifetime) entered on: 10/22/20 Sex
--- OUTSIDE RECORDS SUMMARY | 2023-10-23 09:42 | XMS_ITS | Continuity of Care Document ---
Author Organization [facility] Address [address] [place] [address]- Care Team Providers Care Media Relations Coordinator Name Role Phone Gayathri GARZA, Florinda Primary Care Physician Encounter [facility] Date(s): 06/23/20 - 07/23/20 [facility] [address] [place] [address]- Allergies, Adverse Reactions, Alerts Substance Reaction Severity [...] exceed 2000 mg/day) maltese, # 100 tablet, 5 Refills, Maintenance, 01/22/20 [...] 07/16/20 15:26:00 EDT, Route to Pharmacy Electronically, [facility]/pharmacy #[id number], 160, cm, 06/12/20 9:01... [...] 01/21/21 19:13:00 EDT, 01/27/20 19:13:00 EDT, Tablet, [facility]/pharmacy #[id number], 167, cm, 01/13/20 8:54:00 [...] Refills, Maintenance, 01/27/20 19:13:00 EDT, EC Capsule, [facility]/pharmacy #[id number], 167, cm, 01/13/20 8:54:00 EDT, Height, 78.8, kg, 01/01/20 3:41:00 EDT, Dry Weight Start Date: 01/27/20 Status: Ordered Eliquis 5 mg oral tablet 1 tablet = 5 mg, By Mouth, 2 times a day, # 60 tablet, 11 Refills, Maintenance, 02/10/20 11:22:00 EST, Tablet, [facility]/pharmacy #[id number], 167, cm, 01/13/20 8:54:00 [...] 2 Refills, Maintenance, 01/22/20 9:38:00 EDT, [facility]/pharmacy #[id number], 167, cm, 01/13/20 8:54:00 [...] mL, 11 Refills, Maintenance, 01/27/20 19:13:00 EDT, [facility] [...] 06/24/20 9:08:00 EDT, Route to Pharmacy Electronically, [facility]/pharmacy #[id number], 160, cm, 06/12/20 9:01:00 EST, Height, 80... 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 Start Date: 01/21/20 Status: Ordered Fdd-ann-jqihm medical-grade oxford diabetic shoes, depth or hightop Pfs-dce-tizql medical-grade oxford diabetic shoes, depth or hightop, [...] EDT, 07/10/20 10:25:00 EDT, Route toPharmacy Electronically, [facility]/pharmacy #1026, Parti... Start Date: 07/10/20 Stop Date: 08/07/20 Status: Ordered oxyCODONE 5 mg oral tablet 5 mg, 1, tablet, By Mouth, Every 4 hours, for 28 days, PRN pain dispense not earlier than 08/07/20, # 168 tablet, Refills 0, Tot. Refills 0, Acute 09/04/20 10:25:00 EDT, 08/07/20 10:25:00 EDT, Route to Pharmacy Electronically, [facility]/pharmacy #1026, Part... Start Date: 08/07/20 Stop Date: 09/04/20 Status: Ordered oxyCODONE 5 mg oral tablet 5 mg, 1, tablet, By Mouth, Every 4 hours, for 28 days, PRN pain dispense not earlier than09/04/20, #168 tablet, Refills 0, Tot. Refills 0, Acute 10/02/20 10:25:00 EDT, 09/04/20 10:25:00 EDT, Route toPharmacy Electronically, [facility]/pharmacy #1026, Parti... Start Date: 09/04/20 Stop Date: 10/02/20 Status: Ordered oxyCODONE 5 mg oral tablet 5 mg, 1, tablet, By Mouth, Every 4 hours, for 28 days, PRN pain dispense not earlier than 10/02/20, # 168 tablet, Refills 0, Tot. Refills 0, Acute 10/30/20 10:25:00 EDT, 10/02/20 10:25:00 EDT, Route to Pharmacy Electronically, [facility]/pharmacy #1026, Part... Start Date: 10/02/20 Stop Date: 10/30/20 Status: Ordered Pen [place], 32 G x 4 mm BD Ultra [...] 02/10/20 11:22:00 EST, Route to Pharmacy Electronically, [facility]/pharmacy #1026 Tablet, 167, cm, 01/13/20 [...] 05/01/20 9:28:00 EST, Route to Pharmacy Electronically, [facility]/pharmacy #1026, 167,... Start Date: 05/01/20 Status: Ordered TENS electrode pads TENS electrode pads, See Instructions, # 1 box, Refills 5, Tot. 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 06/16/08 SURGEON: Danny Marie M.D. MACHINE OR MACHINERY MECHANIC: Naima Bowling M.D. 21b/l submassive PE diagnosed on Dec 20 in [facility] 22TTE 12/22/15 in [facility]: RV dilatation, RVSP 46 23Per ECHO 05/24/17 Trace mitral regurgitation , trace TC regurgitation w no significant valve pathology 24meg colo July 2009 exc for 2 hyperplastic polyps 25Colonoscopy 2004 at [facility] [place] per letter of Dr Amor Dobbins Social History Social History Type Response Smoking Status Never (less than 100 in lifetime) entered on: 06/12/20 Sex
--- OUTSIDE RECORDS SUMMARY | 2023-10-23 09:42 | XMS_ITS | Continuity of Care Document ---
Author Organization [facility] Address [address] [place] [address]- Care Team Providers Care Senior Ecologist Name Role Phone Massimo Figueroa Primary Care Physician Encounter [facility] Date(s): 09/21/23 - 10/21/23 [facility] [address] [place] [address]- Allergies, Adverse Reactions, Alerts Substance Reaction Severity [...] virus vaccine, inactivated 6 05/06/04 Gi zeny [id number] 12y+ bivalent booster vax 2/15/23 Given zoster vaccine, inactivated 12/08/21 Given zoster vaccine, inactivated 09/15/21 Given SARS-CoV-2 mRNA (yimnigc-ocyd-[id number]) vax 09/15/21 Given SARS-CoV-2 (COVID-19) mRNA BNT-162b2 [...] Maintenance, 05/25/22 12:08:00 EST, ER Tablet, [id number], Discontinue Motrin, 158, cm, 05/25/22 11:12:00... Start [...] Gm, 11 Refills, Maintenance, 07/21/21 12:43:00 EDT, [facility]/pharmacy #1026, 1 applicator Topically [...] 3 Refills, Soft Stop, 03/09/22 11:35:00 EST, [facility]/pharmacy #0838, 160, cm, 03/09/22 10:43:00EST, Height, 78, kg, 01/14/22 19:37:00 EDT, Dry W... Start Date: 03/09/22 Status: Ordered Biotene Moisturizing Mouth oral spray See Instructions, [place] directly into mouth; spray is safe to [...] P.M. NEEDED & [facility] # [facility] tablet, 1 Refills, Maintenance, 08/05/22 12:49:00 EDT, [id number], 158, cm, 07/12/22 11:54:00 EDT, Height, 76, kg, 05/07/22 6:04:00 ES... Start Date: 08/05/22 Status: Ordered capsaicin 0.025% topical cream 1 application, Topically, 3 times a day, # 35 Gm, 11 Refills, Maintenance, 07/21/21 12:26:00 EDT, Cream, [facility]/pharmacy #1026, 1 application Topically [...] 11 Refills, Maintenance, 12/06/21 15:04:00 EDT, Tablet, [facility], Partial fill upon [...] tablet, 3 Refills, Maintenance, 07/12/21 18:53:00 EDT, Tablet,[facility], Discontinue 30- day supply presc... Start Date: 07/12/21 Stop Date: 07/07/22 Status: Ordered ferrous sulfate 325 mg oral tablet 1 tablet = 325 mg, By Mouth, Daily, May take with food to minimize abdominal discomfort. Do not take with milk. Take preferrably with juice., # 90 tablet, 3 Refills, Maintenance, 09/15/21 8:56:00 EDT, [facility]/pharmacy #1026, 160, cm, 09/15/21 [...] Refills, Maintenance, 07/08/22 9:47:00 EDT, [id number], 158, cm, 06/16/22 11:27:00 EST, Height, 76, [...] tablet, 0 Refills, Maintenance, 04/18/23 1:50:00 EST, [facility]/pharmacy #0838, 90, TAKE 1 TABLET [...] Replace Required Details, Route to Pharmacy Electronically, [facility]/pharmacy #0838, 160, cm, 03/23/23 1... [...] 03/09/22 11:54:00 EST, Route to Pharmacy Electronically, [facility]/pharmacy #0838, 160, cm, 03/09/22 [...] # 15... Start Date: 11/24/22 Status: Ordered Roi-cql-xadjt medical-grade oxford diabetic shoes, depth or hightop Tih-nso-fyhhq medical-grade oxford diabetic shoes, depth or hightop, [...] DOLOR Start Date: 11/24/22 Status: Ordered Pen [place], 32 G x 4 mm BD Ultra [...] 527 Gm,11 Refills, Maintenance, 03/09/22 11:39:00 EST, [facility]/pharmacy #0838, 17- 34 Gm By [...] 4 Refills, Maintenance, 05/09/23 10:10:00 EST, Tablet, [facility]/pharmacy #0838, Partial fill upon [...] 15 mL, 3 Refills, Maintenance, 02/24/2312:11:00 EST, [facility]/pharmacy #0838, Partial fill upon [...] Gm, 5 Refills, Maintenance, 03/09/22 11:55:00 EST, [facility]/pharmacy #0838, 2 Gm Topically 4 times a day,x14 days, 160, cm, 03/09/22 10:43:00 EST, Height, 78, kg, 01/14/22 19:37:00 EDT, Dry Weight Start Date: 03/09/22 Stop Date: 06/01/22 Status: Ordered [place] Reusable Bed Pad 34 x 36 [place] Reusable Bed Pad 34 x 36 , [...] 12/29/11 Active Hepatitis C Confirmed Active intermediate current use of opiate analgesic-LBP 12 Confirmed [...] Osteopenia 18, 19, 20 Confirmed 11/16/12 Active *[id number] Reception Centre Manager Karine More Confirmed Active Peripheral venous [...] 2 peroneal veins diagnosed on Dec 20 [facility] 6insulin dependent 7Per ECHO 05/24/1718 Grade [...] 11left mild sensorineural hearing loss by [facility] Hearing Evaluation on 12/29/11 12Narcotic contract [...] lower parathyroidectomy. 06/16/08 SURGEON: Danny Marie M.D. ROTOR ASSEMBLER: Naima Bowling M.D. 22b/l submassive PE diagnosed on Dec 20 in [facility] 23TTE 12/22/15 in [facility]: RV dilatation, RVSP 46 24Per ECHO 05/24/17 Trace mitral regurgitation , trace TC regurgitation w no significant valve pathology 25meg colo July 2009 exc for 2 hyperplastic polyps 26Colonoscopy 2004 at [facility] [place] per letter of Dr Amor Dobbins Social History Social History Type Response Smoking Status Never (less than 100 in lifetime) entered on: 10/22/20 Sex Patient Care team information Care Team Personnel Name: Massimo Figueroa Position: [facility] Outreach Member Role: PCP Address: Address: [address] [place] [address]- Name: Oneil Ye RN Position: [facility] Outreach Member Role: Primary Care Nurse Name: Diamond Weiss RN Position: S RN Member Role: Primary Care Nurse Name: Tiara Cavazos RN Position: [facility] OB RN Member Role: Primary Care Nurse Name: Shreya Boss RN Position: S RN Member Role: Primary Care Nurse Name: Dhruv Khan RN Position: [facility] RN Member Role: Primary Care Nurse Name: Virginia Benson RN Position: [facility] AMB Nurse Member Role: Primary Care Nurse Name: Glen Cota MD Position: [facility] Renal MD Member Role: Lifetime Consulting Physician Address: Address: [address] [place] [address] [facility] [address] Name: Carole Toro LPN Position: [facility] RN Member Role: Primary Care Nurse Care Team Related Persons Name: JOSE ELIAS TODD Address: [place] [address] Name: JOSE ELIAS KIRKLAND Address: home [address] [place] [id number] Name: LEONIE SCHRADER Address: [place] [address]
--- OUTSIDE RECORDS SUMMARY | 2023-10-23 09:42 | XMS_ITS | Continuity of Care Document ---
Author Organization [facility] Address [address] [place] [address]- Care Team Providers Care Director Of Preclinical Research Name Role Phone Gayathri GARZA, Florinda Primary Care Physician Encounter [facility] Date(s): 06/23/21 - 07/29/[address] [address] Attending Physician: Florinda Trinh MD Admitting Physician: [...] 2000 mg/day) [place], # 100 tablet, 11 Refills, Maintenance, 04/28/21 13:24:00 EST, [facility]/pharmacy #1026, 160, cm, 04/28/21 9:50:00 EST, Height, [...] 3 Refills, Soft Stop, 06/26/20 7:30:00 EDT, [facility]/pharmacy #1026, Partial fill upon patient request if the prescription is for a schedule II op... Start Date: 06/26/20 Status: Ordered Biotene Moisturizing Mouth oral spray See Instructions, [place] directly into mouth; spray is safe to swallow as needed for dry mouth, # 45mL, 11 Refills, Maintenance, 07/21/21 12:43:00 EDT, [facility], [place] directly into mouth; spray is safe to [...] 11 Refills, Maintenance, 04/21/21 18:12:00 EST, Tablet, [facility]/pharmacy #1026, 160, cm, 03/03/21 11:23:00 EST, Height, [...] 04/28/21 14:34:00 EST, Route to Pharmacy Electronically, [facility]/pharmacy #1026, Can use with HCTZ, 160, cm, [...] capsule, 3 Refills, Maintenance, 10/22/20 10:35:00 EDT, [facility]/pharmacy #1026, 160, [...] DAILY, E11.65, # 90 tablet, 2 Refills, [facility], 160, cm, 06/21/21 9:57:00 EDT, Height, 80.6, kg, 06/03/20 19:00:00 EST, Dry Weight Start Date: 07/19/21 Status: Ordered Nexium 40 mg oral enteric coated capsule 1 capsule = 40 mg, By Mouth, Daily, 30 minutes before breakfast, # 30 capsule, 11 Refills, Maintenance, 04/28/21 14:00:00 EST, [facility]/pharmacy #1026, Discontinue pantoprazole, 160, cm, 04/28/21 9:50:00 EST, Height, 80.6, kg, 06/03/20 19:00:00 EST, Dry We... Start Date: 04/28/21 Stop Date: 04/23/22 Status: Ordered NovoLOG FlexPen 100 units/mL subcutaneous solution See Instructions, Inject up to 26 untis via Insulin sliding scale 3x a day w/meals,MAX daily dose 78 units, E11.65, # 45 mL, 6 Refills, Maintenance, 01/21/20 14:30:00 EDT, [facility]/pharmacy #1026, 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 Start Date: 01/21/20 Status: Ordered Cbe-qab-kwkvk medical-grade oxford diabetic shoes, depth or hightop Wxx-ptj-aflpb medical-grade oxford diabetic shoes, depth or hightop, [...] 10/04/21 Stop Date: 11/01/21 Status: Ordered Pen [place], 32 G x 4 mm BD Ultra [...] 04/28/21 14:02:00 EST, Route to Pharmacy Electronically, [facility]/pharmacy #1021, 160... Start Date: 04/28/21 Stop Date: 04/23/22 [...] 527 Gm,11 Refills, Maintenance, 01/27/20 19:13:00 EDT, [facility]/pharmacy #1026, 17- 34 Gm By Mouth Daily,PRN:asneeded [...] 11 Refills, Maintenance, 04/28/21 14:03:00 EST, Tablet, [facility]/pharmacy #1026, 160, cm, 04/28/21 9:50:00 EST, Height, 80.6, kg, 06/03/20 19:00:00 EST, Dry Weight Start Date: 04/28/21 Status: Ordered Senna-Time 8.6 mg oral tablet 2 tablet, By Mouth, 2 times a day, PRN NEEDED FOR CONSTIPATION,INSTR, DISCONTINUE DOCUSATE, # 60tablet, 11 Refills, [id number], 160, cm, 03/03/21 11:23:00 EST, Height, 80.6, [...] 02/22/21 17:50:00 EST, Route to Pharmacy Electronically, [facility]/pharmacy #1026, 1... Start Date: 02/22/21 Status: Ordered [...] 02/15/21 11:39:00 EST, Route to Pharmacy Electronically, [facility]/pharmacy #1026,Partial fill upon patient request if the prescrip... Start Date: 02/15/21 Stop Date: 03/29/21 Status: Ordered Trelegy Ellipta inhalation powder 1 puffs, Inhalation, Daily, at the same time every day Given by Budget Counselor, Dr. Michael Berkowitz, # 60 each, 0 Refills, Maintenance, 07/21/21 11:59:00 EDT, Powder, Partial fill upon patient request if the prescription is for a schedule II opi... Start Date: 07/21/21 Status: Ordered Tresiba FlexTouch 200 units/mL subcutaneous solution See Instructions, INJECT 86 UNITS DAILY AT 9PM, # 45 Unknown, 6 Refills, [facility] 27[facility], 160, cm, 06/21/21 9:57:00 EDT, Height, 80.6, [...] Gm, 5 Refills, Maintenance, 02/15/21 11:40:00 EST, [facility]/pharmacy #1026, 2 Gm Topically 4 times a day,x14 days, 160, cm, 02/15/21 8:47:00 EST, Height, 80.6, kg, 06/03/20 19:00:00 EST, Dry Weight Start Date: 02/15/21 Stop Date: 05/10/21 Status: Ordered [place] Reusable Bed Pad 34 [...] abnormal(Confirmed) 11 12/29/11 Active 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 5LE US- DVT involving 2 of 2 peroneal veins diagnosed on Dec 20 [facility] 6insulin dependent 7Per ECHO 05/24/1718 Grade [...] 1 11left mild sensorineural hearing loss by [facility] Hearing Evaluation on 12/29/11 12Narcotic contract [...] parathyroidectomy. 06/16/08 SURGEON: Danny Marie M.D. MACHINE DESIGN ENGINEER: Naima Bowling M.D. 21b/l submassive PE diagnosed on Dec 20 in [facility] TTE 12/22/15 in [facility]: RV dilatation, RVSP 46 23Per ECHO 05/24/17 Trace mitral regurgitation , trace TC regurgitation w no significant valve pathology 24meg colo July 2009 exc for 2 hyperplastic polyps 25Colonoscopy 2004 at [facility] [place] per letter of Dr Amor Dobbins Social History Social History Type Response Smoking Status Never (less than 100 in lifetime) entered on: 10/22/20 Sex
--- OUTSIDE RECORDS SUMMARY | 2023-10-23 09:42 | XMS_ITS | Continuity of Care Document ---
Author Organization [facility]ocrinolo gy and Diabetes Address [address] [place] [address]- Care Team Providers Care Performing Arts Road Manager Name Role Phone Gayathri GARZA, Florinda Primary Care Physician [facility]counter [facility] Date(s): 02/10/20 - 05/06/20 [facility] Endocrinology and Diabetes [address], [place] [address] Attending Physician: Leda Martin MD Admitting Physician: Leda Martin MD Referring Physician: Florinda Trinh MD Allergies, [...] or fever, (not to exceed 2000 mg/day) tajik, # 100 tablet, 5 Refills, Maintenance, 01/22/20 [...] 01/21/21 19:13:00 EDT, 01/27/20 19:13:00 EDT, Tablet, [facility]/pharmacy #[id number], 167, cm, 01/13/20 8:54:00 EDT, Height, 78.8, kg, 01/01/20 3:41:00 EDT, Dry... Start Date: 01/27/20 Stop Date: 01/21/21 Status: Ordered capsaicin 0.025% topical cream 1 application, Topically, 3 times a day, # 90 Gm, 11 Refills, Maintenance, 02/10/20 11:22:00 EST, Cream, [facility]/pharmacy #[id number], 1 [...] Refills, Maintenance, 01/27/20 19:13:00 EDT, EC Capsule, [facility]/pharmacy #[id number], 167, cm, 01/13/20 8:54:00 EDT, Height, 78.8, kg, 01/01/20 3:41:00 EDT, Dry Weight Start Date: 01/27/20 Status: Ordered Eliquis 5 mg oral tablet 1 tablet = 5 mg, By Mouth, 2 times a day, # 60 tablet, 11 Refills, Maintenance, 02/10/20 11:22:00 EST, Tablet, [facility]/pharmacy #[id number], 167, cm, 01/13/20 8:54:00 EDT, Height, 78.8, kg, 01/01/20 3:41:00 EDT, Dry Weight Start Date: 02/10/20 Status: Ordered enalapril 10 mg oral tablet 10 mg, 1, tablet, By Mouth, Daily, discontinue hydrochlorothiazide, # 30 tablet, Refills 11, Tot. Refills 11, Maintenance, 04/29/20 13:04:00 EST, Route to Pharmacy Electronically, [facility]/pharmacy #[id number],167, cm, 04/29/20 9:24:00 EST, Height, 82, kg, ... Start Date: 04/29/20 Status: Ordered famotidine 40 mg oral tablet 1 tablet = 40 mg, By Mouth, Daily at bedtime, If 40 mg tablet is not available, can change to 20 mgtablet 2 tablet at bedtime, # 30 tablet, 2 Refills, Maintenance, 04/04/20 16:07:00 EST, Tablet, [facility]/pharmacy #[id number], 167, cm, 02/24/20 17:04:00 EST, Hei... Start Date: 04/04/20 Status: Ordered ferrous sulfate 325 mg oral tablet 1 tablet = 325 mg, By Mouth, Daily, May take with food to minimize abdominal discomfort. Do not take with milk. Take preferrably with juice., # 90 tablet, 2 Refills, Maintenance, 01/22/20 9:38:00 EDT, [facility]/pharmacy #[id number], 167, cm, 01/13/20 8:54:00 EDT,... Start [...] capsule, 4 Refills, Maintenance, 01/22/20 9:39:00 EDT, [facility]/pharmacy #[id number], 167, cm, 01/13/20 8:54:00 EDT, Height, 78.8, kg, 01/01/20 3:41:00 EDT, Dry Weight Start Date: 01/22/20 Stop Date: 06/20/20 Status: Ordered ketotifen 0.025% ophthalmic solution 1 drops, Eyes, Both, Every 12 hours, PRN as needed for eye allergy, # 7.5 mL, 11 Refills, Maintenance, 01/27/20 19:13:00 EDT, [facility]/pharmacy #[id number], 1 [...] 01/22/20 9:41:00 EDT, Route to Pharmacy Electronically, [facility]/pharmacy #[id number], 167, cm, 01/13/20 8:54:00 EDT, Height, [...] 78.8, kg,... Start Date: 01/21/20 Status: Ordered Hzf-oau-erkfd medical-grade oxford diabetic shoes, depth or hightop Kgl-meu-ndmgq medical-grade oxford diabetic shoes, depth or hightop, [...] EST, 04/17/20 10:25:00 EST, Route toPharmacy Electronically, [facility]/pharmacy #1026, Parti... Start Date: 04/17/20 Stop Date: 05/15/20 Status: Ordered oxyCODONE 5 mg oral tablet 5 mg, 1, tablet, By Mouth, Every 4 hours, for 28 days, PRN pain dispense not earlier than 05/15/20, #168 tablet, Refills 0, Tot. Refills 0, Acute 06/12/20 10:25:00 EST, 05/15/20 10:25:00 EST, Route toPharmacy Electronically, [facility]/pharmacy #1026, Parti... Start Date: 05/15/20 Stop Date: 06/12/20 Status: Ordered oxyCODONE 5 mg oral tablet 5 mg, 1, tablet, By Mouth, Every 4 hours, for 28 days, PRN pain dispense not earlier than 06/12/20, #168 tablet, Refills 0, Tot. Refills 0, Acute 07/10/20 10:25:00 EDT, 06/12/20 10:25:00 EST, Route toPharmacy Electronically, [facility]/pharmacy #1026, Parti... Start Date: 06/12/20 Stop Date: 07/10/20 Status: Ordered oxyCODONE 5 mg oral tablet 5 mg, 1, tablet, By Mouth, Every 4 hours, for 28 days, PRN pain dispense not earlier than 07/10/20, #168 tablet, Refills 0, Tot. Refills 0, Acute 08/07/20 10:25:00 EDT, 07/10/20 10:25:00 EDT, Route toPharmacy Electronically, [facility]/pharmacy #1026, Parti... Start Date: 07/10/20 Stop Date: [...] 04/15/20 Stop Date: 05/13/20 Status: Ordered Pen [place], 32 G x 4 mm BD Ultra [...] 02/10/20 11:22:00 EST, Route to Pharmacy Electronically, [facility]/pharmacy #1026 Tablet, 167, cm, 01/13/20 8:5... Start [...] 05/01/20 9:28:00 EST, Route to Pharmacy Electronically, [facility]/pharmacy #1026, 167,... Start Date: 05/01/20 Status: Ordered TENS electrode pads TENS electrode pads, See Instructions, # 1 box, Refills 5, Tot. Refills 5, Maintenance, use as directed for back pain Dx LBP M54.9 1 box of 4, 12/06/16 14:59:01, Compound Start Date: 12/06/16 Status: Ordered Trelegy Ellipta inhalation powder 1 puffs, Inhalation, Daily, at the same time every day given by paedodontist , Dr Berkowitz, # 60 each, 0 Refills, Maintenance, 11/20/19 13:03:00 EDT, Powder Start Date: 11/20/19 Status: Ordered Tresiba FlexTouch 200 units/mL subcutaneous solution See Instructions, Inject 86 units daily at 9pm, E11.65, # 45 mL, 6 Refills, Maintenance, 01/21/20 14:30:00 EDT, [facility]/pharmacy #[id number], 167, cm, 01/13/20 8:54:00 EDT, Height, 78.8, kg, 01/01/20 3:41:00 EDT, Dry Weight Start Date: 01/21/20 Status: Ordered Ventolin HFA 108 mcg/inh inhalation aerosol with adapter 2 puffs, Inhalation, 4 times a day, PRN Wheezing/Shortness of Breath, dispense when patient requestit, # 18 Gm, 5 Refills, Maintenance, 01/22/20 9:19:00 EDT, [facility]/pharmacy #1026, 167, cm, 01/13/20 8:54:00 EDT, Height, 78.8, kg, 01/01/20 3:41:00 EDT, D... 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 06/16/08 SURGEON: Danny Marie M.D. GRAIN DRIER: Naima Bowling M.D. 21b/l submassive PE diagnosed on Dec 20 in [facility] 22TTE 12/22/15 in [facility]: RV dilatation, RVSP 46 23Per ECHO 05/24/17 Trace mitral regurgitation , trace TC regurgitation w no significant valve pathology 24meg colo July 2009 exc for 2 hyperplastic polyps 25Colonoscopy 2004 at [facility] [place] per letter of Dr Amor Dobbins Social History Social History Type Response Smoking Status Never (less than 100 in lifetime) entered on: 04/29/20 Sex
--- OUTSIDE RECORDS SUMMARY | 2023-10-23 09:42 | XMS_ITS | Continuity of Care Document ---
Author Organization [facility] Endocrinolo gy and Diabetes Address [address] [place] [address]- Care Team Providers Care Nursing Agency Manager Name Role Phone Florinda Trinh MD Primary Care Physician Encounter [facility] Date(s): 01/21/21 - 02/20/21 [facility] Endocrinology and Diabetes [address], [place] [address] Attending Physician: Yaya Patino Admitting Physician: Yaya [...] Gi zeny influenza virus vaccine, inactivated 8 1/27/05 Gi zeny pneumococcal 13-valent vaccine 9 05/12/14 [...] exceed 2000 mg/day) french, # 100 tablet, 11 Refills, Maintenance, 08/14/20 10:13:00 EDT, [facility]/pharmacy #1026, 160, cm, 08/14/20 9:34:00 [...] 11 Refills, Maintenance, 01/18/21 18:00:00 EDT, Tablet, [facility]/pharmacy #1026, 160, cm, 10/22/20 [...] mL, 11 Refills, Maintenance, 01/27/20 19:13:00 EDT, [facility]/pharmacy #1026, 1 drops Eyes, [...] 78.8, kg,... Start Date: 01/21/20 Status: Ordered Rjp-roz-ffybt medical-grade oxford diabetic shoes, depth or hightop Vhr-bzq-syrrm medical-grade oxford diabetic shoes, depth or hightop, [...] to oxycodone 10 mg 0.5 tablets 4 days for 84 tablets, # 168 tablet, Refills 0,... Start Date: 02/19/21 Stop Date: 03/19/21 Status: Ordered oxyCODONE 5 mg oral tablet 5 mg, 1, tablet, By Mouth, Every 4 hours, for 28 days, PRN pain dispense not earlier than 03/19/21 If oxycodone 5 mg tablet is not available, it can be switched to oxycodone 10 mg 0.5 tablets 4 [id number] days for 84 tablets, # 168 tablet, [...] 04/16/21 Stop Date: 05/14/21 Status: Ordered Pen [place], 32 G x 4 mm BD Ultra [...] 527 Gm,11 Refills, Maintenance, 01/27/20 19:13:00 EDT, [facility]/pharmacy #1026, 17- 34 Gm [...] HDZ, # 30 tablet, 5 Refills, Maintenance, [facility] STORE [facility], 160, cm, 10/22/20 9:15:00 EDT, Height, 80.6, kg, 06/03/20 19:00:00 EST, Dry Weight Start Date: 11/13/20 Status: Ordered Senna 8.6 mg oral tablet 17.2 mg, 2, tablet, By Mouth, 2 times a day, PRN, discontinue docusate, # 60 tablet, Refills 11, Tot. Refills 11, Maintenance, for constipation, 02/10/20 11:22:00 EST, Route to Pharmacy Electronically, [facility]/pharmacy #1026 Tablet, 167, cm, 01/13/20 [...] Maintenance, 10/15/20 16:28:00 EDT, Routeto Pharmacy Electronically, [facility]/pharmacy #1026, 160... Start Date: 10/15/20 [...] 02/15/21 11:39:00 EST, Route to Pharmacy Electronically, [facility]/pharmacy #1026,Partial fill upon patient request if the prescrip... Start Date: 02/15/21 Stop Date: 03/29/21 Status: Ordered Trelegy Ellipta inhalation powder 1 puffs, Inhalation, Daily, at the same time every day given by metal off bearer , Dr Berkowitz, # 60 each, 0 [...] Date: 02/15/21 Stop Date: 05/10/21 Status: Ordered [place] Reusable Bed Pad 34 x 36 [place] Reusable Bed Pad 34 x 36 , [...] apnea)(Confirmed) Active Osteopenia(Confirmed) 18, 19 11/16/12 Active *[id number] Care Partn igor More(Confirmed) Active Peripheral venous [...] peroneal veins diagnosed on Dec 20 [facility] 6insulin dependent 7Per ECHO 05/24/1718 Grade [...] 1 11left mild sensorineural hearing loss by [facility] Hearing Evaluation on 12/29/11 12Narcotic [...] lower parathyroidectomy. 06/16/08 SURGEON: Danny Marie M.D. RADAR SIGNAL PROCESSING ENGINEER: Naima Bowling M.D. 21b/l submassive PE diagnosed on Dec 20 in [facility] TTE 12/22/15 in [facility]: RV dilatation, RVSP 46 23Per ECHO 05/24/17 Trace mitral regurgitation , trace TC regurgitation w no significant valve pathology 24meg colo July 2009 exc for 2 hyperplastic polyps 25Colonoscopy 2004 at [facility] [place] per letter of Dr Amor Dobbins Social History Social History Type Response Smoking Status Never (less than 100 in lifetime) entered on: 10/22/20 Sex
--- OUTSIDE RECORDS SUMMARY | 2023-10-23 09:42 | XMS_ITS | Continuity of Care Document ---
Author Organization [facility] Endocrinolo gy and Diabetes Address [address] [place] [address]- Care Team Providers Care Physical Chemistry Professor Name Role Phone Massimo Figueroa Primary Care Physician Encounter [facility] Date(s): 10/20/22 - 12/04/22 [facility] Endocrinology and Diabetes [address] [place] [address]- Attending Physician: Samira Bo MD Admitting Physician: Samira Bo MD Referring Physician: Florinda Trinh MD Allergies, Adverse Reactions, Alerts Substance Reaction Severity Status enalapril hyperkalemia Active penicillin RASH Active morphine itchy Active Bactrim 1 hyperkalemia Active Lidocaine, Topical Active 1Hyperkalemia when used together with lisinopril Immunizations Given and Recorded Vaccine Date Status Refusal Reason [id number] 12y+ bivalent booster vax 05/25/22 Given influenza [...] zoster vaccine, inactivated 09/15/21 Given SARS-CoV-2 mRNA ([id number]) vax 09/15/21 Given SARS-CoV-2 (COVID-19) mRNA BNT-162b2 [...] by melissa craft 6Admin Note: ADMINISTERED BY R.Lucille 7Result Comment: [...] Maintenance, 05/25/22 12:08:00 EST, ER Tablet, [facility], Discontinue Motrin, 158, cm, 05/25/22 11:12:00... Start [...] Gm, 11 Refills, Maintenance, 07/21/21 12:43:00 EDT, [facility]/pharmacy #1026, 1 applicator Topically 2 times a day, 160, cm, 07/21/21 10:22:00 EDT, Height, 80.6, kg, 06/03/20 19:00:00 EST, Dry Weight Start Date: 07/21/21 Status: Ordered Baqsimi Two Pack 3 mg nasal powder = 3 mg, Naris, Right, Once, Please use for a low blood sugar emergency, may repeat in 15 minutes, #1 each, 3 Refills, Soft Stop, 03/09/22 11:35:00 EST, [facility]/pharmacy #0838, 160, cm, 03/09/22 10:43:00EST, Height, 78, kg, 01/14/22 19:37:00 EDT, Dry W... Start Date: 03/09/22 Status: Ordered Biotene Moisturizing Mouth oral spray See Instructions, [place] directly into mouth; spray is safe to swallow as needed for dry mouth, # 45mL, 11 Refills, Maintenance, 05/25/22 12:42:00 EST, [facility]/pharmacy #0838, Partial fill upon patient request [...] tablet, 1 Refills, Maintenance, 08/05/22 12:49:00 EDT, [facility] ST[facility] 908[facility], 158, cm, 07/12/22 11:54:00 EDT, Height, 76, kg, 05/07/22 6:04:00 ES... Start Date: 08/05/22 Status: Ordered capsaicin 0.025% topical cream 1 application, Topically, 3 times a day, # 35 Gm, 11 Refills, Maintenance, 07/21/21 12:26:00 EDT, Cream, [facility]/pharmacy #1026, 1 application Topically 3 times [...] 11 Refills, Maintenance, 12/06/21 15:04:00 EDT, Tablet, [facility], Partial fill upon patient request if the prescription is for a schedule II opioid drug., 160, cm, 11/23/21 14:47:00 ED... Start Date: 12/06/21 Status: Ordered esomeprazole 40 mg oral enteric coated capsule See Instructions, TAKE 1 CAPSULE BY MOUTH DAILY 30 MINUTES BEFORE BREAKFAST, # 30 capsule, 2 Refills, Maintenance, 11/09/22 10:47:00 EDT, [id number], 158, cm, 07/12/22 11:54:00 EDT, Height, 76, kg, 05/07/22 6:04:00 EST, Dry Weight Start Date: 11/09/22 Status: Ordered famotidine 40 mg oral tablet 1 tablet = 40 mg, By Mouth, Daily at bedtime, If 40 mg tablet is not available, can be changed to 20 mg tablet 2 tablet at bedtime, # 90 tablet, 3 Refills, Maintenance, 07/12/21 18:53:00 EDT, Tablet,[facility]/pharmacy #1026, Discontinue 30- day supply presc... Start Date: 07/12/21 Stop Date: 07/07/22 Status: Ordered ferrous sulfate 325 mg oral tablet 1 tablet = 325 mg, By Mouth, Daily, May take with food to minimize abdominal discomfort. Do not take with milk. Take preferrably with juice., # 90 tablet, 3 Refills, Maintenance, 09/15/21 8:56:00 EDT, [facility]/pharmacy #1026, 160, cm, 09/15/21 8:15:00 EDT,... [...] Dry Weight Start Date: 11/24/22 Status: Ordered ibuprofen 600 mg oral tablet Refills 0, Maintenance, 06/06/22 9:53:00 EST, Partial fill upon patient request if the prescriptionis for a schedule II opioid drug. Start Date: 06/06/22 Status: Ordered isosorbide mononitrate 30 mg oral tablet, extended release See Instructions, LUCIANO GAGE TABLETA POR VIA ORAL CADA MANANA, # 90 tablet, 0 Refills, Maintenance, 07/08/22 9:47:00 EDT, [facility] 0[facility], 158, cm, 06/16/22 11:27:00 EST, Height, 76, kg, 05/07/22 6:04:00 EST, Dry Weight Start Date: 07/08/22 Status: Ordered ketotifen 0.025% ophthalmic solution 1 drops, Eyes, Both, Every 12 hours, PRN as needed for eye allergy, # 7.5 mL, 11 Refills, Maintenance, 06/25/21 8:34:00 EDT, [facility]/pharmacy #1026, 1 drops Eyes, Both Every [...] 90 tablet, 3 Refills, 03/09/22 11:57:00 EST, [facility]/pharmacy #0838, 1 tablet By Mouth Daily [...] 03/09/22 11:37:00 EST, Route to Pharmacy Electronically, [facility]/pharmacy #0838, 160, cm, 03/09/22 10:43:00 EST, [...] 03/09/22 11:54:00 EST, Route to Pharmacy Electronically, [facility]/pharmacy #0838, 160, cm, 03/09/22 10:43:00 EST, [...] # 15... Start Date: 11/24/22 Status: Ordered Lzc-gjp-ucvnb medical-grade oxford diabetic shoes, depth or hightop Tti-njf-qldbb medical-grade oxford diabetic shoes, depth or hightop, [...] tablet, 2 Refills, Maintenance, 03/09/2211:40:00 EST, Tablet, [facility]/pharmacy #0838, 160, cm, 03/09/22 10:43:00 EST, Height, 78, kg, 01/14/22 19:37:00 EDT, Dry Weight Start Date: 03/09/22 Status: Ordered oxyCODONE 5 mg oral tablet TOME GAGE O DOS TABLETAS POR V A ORAL CADA SEIS HORAS CUANDO SEA NECESARIO PARA EL DOLOR Start Date: 11/24/22 Status: Ordered Pen [place], 32 G x 4 mm BD Ultra [...] 527 Gm,11 Refills, Maintenance, 03/09/22 11:39:00 EST, [facility]/pharmacy #0838, 17- 34 Gm By Mouth Daily,PRN:asneeded [...] tablet, 11 Refills, Maintenance, 03/09/22 11:39:00 EST, [facility]/pharmacy #0838, 160, cm, 03/09/22 10:43:00 EST, Height, [...] callus 11.628 right bunion M20.11 3 pairs, 04/... 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 06/16/08 SURGEON: Danny Marie M.D. CRIB ATTENDANT: Naima Bowling M.D. 22b/l submassive PE diagnosed on Dec [address] [facility] 23TTE 12/22/[address] [facility]: RV dilatation, RVSP 46 24Per ECHO 05/24/17 Trace mitral regurgitation , trace TC regurgitation w no significant valve pathology 25meg colo July 2009 exc for 2 hyperplastic polyps 26Colonoscopy 2004 at [facility] [place] per letter of Dr Amor Dobbins Social History Social History Type Response Smoking Status Never (less than 100 in lifetime) entered on: 10/22/20 Sex Patient Care team information Care Team Personnel Name: Massimo Figueroa Position: [facility] Outreach Member Role: PCP Address: Address: [address] [place] [address] Name: Diamond Weiss RN Position: S RN Member Role: Primary Care Nurse Name: Tiara Cavazos RN Position: [facility] OB RN Member Role: Primary Care Nurse Name: Shreya Boss RN Position: [facility] RN Member Role: Primary Care Nurse Name: Virginia Benson RN Position: [facility] SN RN Member Role: Primary Care Nurse Name: Jaylin Hernandez RN Position: [facility] Onco RN Member Role: Primary Care Nurse Name: Glen Cota MD Position: [facility] Renal MD Member Role: Lifetime Consulting Physician Address: Address: [address] [place] [address] [facility] [place] [address]- [place] Care Team Related Persons Name: JOSE ELIAS TODD Address: [place] [address] Name: JOSE ELIAS KIRKLAND Address: home [address] [place] [id number] Name: LEONIE SCHRADER Address: [place] [address]
--- OUTSIDE RECORDS SUMMARY | 2023-10-23 09:42 | XMS_ITS | Continuity of Care Document ---
Author Organization [facility] Address [address] [place] [address]- Care Team Providers Care Door To Door Sales Representative Name Role Phone Gayathri GARZA, Florinda Primary Care Physician Encounter [facility] Date(s): 09/21/22 - 10/21/22 [facility] [address] [place] [id number]- Allergies, Adverse Reactions, Alerts Substance Reaction Severity Status enalapril Active penicillin RASH Active morphine itchy Active Bactrim 1 hyperkalemia Active Lidocaine, Topical Active 1Hyperkalemia when used together with lisinopril Immunizations Given and Recorded Vaccine Date Status Refusal Reason [id number] 12y+ bivalent booster vax 05/25/22 Given influenza [...] zoster vaccine, inactivated 09/15/21 Given SARS-CoV-2 mRNA (nilkebd-lsnl-yevhr) vax 09/15/21 Given SARS-CoV-2 (COVID-19) mRNA BNT-162b2 [...] by melissa crfat 6Admin Note: ADMINISTERED BY R.N. 7Result Comment: Masood RUVALCABA RN 8Result Comment: [...] 05/25/22 12:08:00 EST, ER Tablet, [facility]/pharmacy #[id number], Discontinue Motrin, 158, cm, 05/25/22 [...] Refills, Maintenance, 07/21/21 12:43:00 EDT, [facility]/pharmacy #1026, 1 applicator Topically 2 times a day, 160, cm, 07/21/21 10:22:00 EDT, Height, 80.6, kg, 06/03/20 19:00:00 EST, Dry Weight Start Date: 07/21/21 Status: Ordered Baqsimi Two Pack 3 mg nasal powder = 3 mg, Naris, Right, Once, Please use for a low blood sugar emergency, may repeat in 15 minutes, #1 each, 3 Refills, Soft Stop, 03/09/22 11:35:00 EST, [facility]/pharmacy #0838, 160, cm, 03/09/22 10:43:00EST, Height, 78, kg, 01/14/22 19:37:00 EDT, Dry W... Start Date: 03/09/22 Status: Ordered Biotene Moisturizing Mouth oral spray See Instructions, [place] directly into mouth; spray is safe to swallow as needed for dry mouth, # 45mL, 11 Refills, Maintenance, 05/25/22 12:42:00 EST, [facility]/pharmacy #0838, Partial fill upon patient request [...] Refills, Maintenance, 08/05/22 12:49:00 EDT, [id number], 158, cm, 07/12/22 11:54:00 EDT, Height, 76, kg, 05/07/22 6:04:00 ES... Start Date: 08/05/22 Status: Ordered capsaicin 0.025% topical cream 1 application, Topically, 3 times a day, # 35 Gm, 11 Refills, Maintenance, 07/21/21 12:26:00 EDT, Cream, [facility]/pharmacy #1026, 1 application Topically 3 times [...] 11 Refills, Maintenance, 12/06/21 15:04:00 EDT, Tablet, [facility], Partial fill upon patient request if the prescription is for a schedule II opioid drug., 160, cm, 11/23/21 14:47:00 ED... Start Date: 12/06/21 Status: Ordered esomeprazole 40 mg oral enteric coated capsule See Instructions, TAKE 1 CAPSULE BY MOUTH DAILY 30 MINUTES BEFORE BREAKFAST, # 30 capsule, 2 Refills, Maintenance, 08/05/22 12:49:00 EDT, [facility] STORE [id number], 158, cm, 07/12/22 11:54:00 EDT, Height, 76, kg, 05/07/22 6:04:00 EST, Dry Weight Start Date: 08/05/22 Status: Ordered famotidine 40 mg oral tablet 1 tablet = 40 mg, By Mouth, Daily at bedtime, If 40 mg tablet is not available, can be changed to 20 mg tablet 2 tablet at bedtime, # 90 tablet, 3 Refills, Maintenance, 07/12/21 18:53:00 EDT, Tablet,[facility]/pharmacy #1026, Discontinue 30- day supply presc... Start Date: 07/12/21 Stop Date: 07/07/22 Status: Ordered ferrous sulfate 325 mg oral tablet 1 tablet = 325 mg, By Mouth, Daily, May take with food to minimize abdominal discomfort. Do not take with milk. Take preferrably with juice., # 90 tablet, 3 Refills, Maintenance, 09/15/21 8:56:00 EDT, [facility]/pharmacy #1026, 160, cm, 09/15/21 8:15:00 EDT,... [...] LUCIANO GAGE TABLETA POR VIA ORAL CADA BERT, # 90 tablet, 0 Refills, Maintenance, 07/08/22 9:47:00 EDT, [facility] STORE 13953, 158, cm, 06/16/22 11:27:00 EST, Height, 76, kg, 05/07/22 6:04:00 EST, Dry Weight Start Date: 07/08/22 Status: Ordered ketotifen 0.025% ophthalmic solution 1 drops, Eyes, Both, Every 12 hours, PRN as needed for eye allergy, # 7.5 mL, 11 Refills, Maintenance, 06/25/21 8:34:00 EDT, [facility]/pharmacy #1026, 1 drops Eyes, Both Every [...] tablet, 3 Refills, 03/09/22 11:57:00 EST, [facility]/pharmacy #0838, 1 tablet By Mouth Daily before dinner,PRN:allergies, 160, cm, 03/09/22 10:43:00 EST, Height, 78, kg, 01/14/22 19:37:00 ED... Start Date: 03/09/22 Status: Ordered montelukast 10 mg oral tablet 10 mg, 1, tablet, By Mouth, Daily at bedtime, # 90 tablet, Refills 3, Tot. Refills 3, Maintenance, 03/09/22 11:37:00 EST, Route to Pharmacy Electronically, [facility]/pharmacy #0838, 160, cm, 03/09/22 10:43:00 EST, Height, 78, kg, 01/14/22 19:37:00 EDT, Dry... Start Date: 03/09/22 Stop Date: 03/04/23 Status: Ordered Norvasc 5 mg oral tablet 5 mg, 1, tablet, By Mouth, Daily, # 90 tablet, Refills 3, Tot. 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 Start Date: 03/09/22 Status: Ordered Tlw-chs-lhoag medical-grade oxford diabetic shoes, depth or hightop Yzy-ebt-msdiz medical-grade oxford diabetic shoes, depth or hightop, [...] Weight Start Date: 03/09/22 Status: Ordered Pen [place], 32 G x 4 mm BD Ultra [...] the same time every day Given by Program Eligibility Specialist, Dr. 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 06/16/08 SURGEON: Danny Marie M.D. PROFESSOR OF RELIGION: Naima Bowling M.D. 22b/l submassive PE diagnosed on Dec 20 in [facility] TTE 12/22/15 in [facility]: RV dilatation, RVSP 46 24Per ECHO 05/24/17 Trace mitral regurgitation , trace TC regurgitation w no significant valve pathology 25meg colo July 2009 exc for 2 hyperplastic polyps 26Colonoscopy 2004 at [facility] [place] per letter of Dr Amor Dobbins Social History Social History Type Response Smoking Status Never (less than 100 in lifetime) entered on: 10/22/20 Sex Patient Care team information Care Team Personnel Name: Diamond Weiss RN Position: [facility] RN Member Role: Primary Care Nurse Name: Tiara Cavazos RN Position: [facility] OB RN Member Role: Primary Care Nurse Name: Shreya Boss RN Position: [facility] RN Member Role: Primary Care Nurse Name: Jaylin Hernandez RN Position: [facility] Onco RN Member Role: Primary Care Nurse Name: Glen Cota MD Position: [facility] Renal MD Member Role: Lifetime Consulting Physician Address: Address: [address] [place] [address] [facility] [place] [address]- Name: Florinda Trinh MD Position: [facility] Physician - Primary Care Member Role: PCP Address: Address: [address] [place] [address]- Care Team Related Persons Name: JOSE ELIAS TODD Address: [place] [address] Name: JOSE ELIAS KIRKLAND Address: home [address] [place] [address] Name: LEONIE SCHRADER Address: [place] [address]
--- OUTSIDE RECORDS SUMMARY | 2023-10-23 09:42 | XMS_ITS | Continuity of Care Document ---
Author Organization [facility] Address [address] [place] [address]- Care Team Providers Care Coding Coordinator Name Role Phone Massimo Figueroa Primary Care Physician Encounter [facility] Date(s): 05/19/23 - 06/18/23 [facility] [address] [place] [address]- Allergies, Adverse Reactions, Alerts Substance Reaction Severity [...] virus vaccine, inactivated 6 05/06/04 Gi zeny [id number] 12y+ bivalent booster vax 05/25/22 Given zoster vaccine, inactivated 12/08/21 Given zoster vaccine, inactivated 09/15/21 Given SARS-CoV-2 mRNA (ljovdfq-fmsp-fbnfu) vax 09/15/21 Given SARS-CoV-2 (COVID-19) mRNA BNT-162b2 [...] Maintenance, 05/25/22 12:08:00 EST, ER Tablet, [facility], Discontinue Motrin, 158, cm, 05/25/22 11:12:00... Start [...] 3 Refills, Soft Stop, 03/09/22 11:35:00 EST, [facility]/pharmacy #0838, 160, cm, 03/09/22 10:43:00EST, Height, 78, kg, 01/14/22 19:37:00 EDT, Dry W... Start Date: 03/09/22 Status: Ordered Biotene Moisturizing Mouth oral spray See Instructions, [place] directly into mouth; spray is safe to [...] P.M. NEEDED & [facility], # [facility] tablet, 1 Refills, Maintenance, 08/05/22 12:49:00 EDT, [facility], 158, cm, 07/12/22 11:54:00 EDT, Height, 76, kg, 05/07/22 6:04:00 ES... Start Date: 08/05/22 Status: Ordered capsaicin 0.025% topical cream 1 application, Topically, 3 times a day, # 35 Gm, 11 Refills, Maintenance, 07/21/21 12:26:00 EDT, Cream, [facility]/pharmacy #1026, 1 application Topically 3 times [...] 11 Refills, Maintenance, 12/06/21 15:04:00 EDT, Tablet, [facility], Partial fill upon patient [...] tablet, 3 Refills, Maintenance, 07/12/21 18:53:00 EDT, Tablet,[facility]/pharmacy #1026, Discontinue 30- day supply presc... Start Date: 07/12/21 Stop Date: 07/07/22 Status: Ordered ferrous sulfate 325 mg oral tablet 1 tablet = 325 mg, By Mouth, Daily, May take with food to minimize abdominal discomfort. Do not take with milk. Take preferrably with juice., # 90 tablet, 3 Refills, Maintenance, 09/15/21 8:56:00 EDT, [facility]/pharmacy #1026, 160, cm, 09/15/21 8:15:00 EDT,... [...] Refills, Maintenance, 07/08/22 9:47:00 EDT, [facility], 158, cm, 06/16/22 11:27:00 EST, Height, 76, [...] tablet, 0 Refills, Maintenance, 04/18/23 1:50:00 EST, [facility]/pharmacy #0838, 90, TAKE 1 TABLET BY [...] Replace Required Details, Route to Pharmacy Electronically, [facility]/pharmacy #0838, 160, cm, 03/23/23 1... Start [...] # 15... Start Date: 11/24/22 Status: Ordered Smi-jgi-cwxpw medical-grade oxford diabetic shoes, depth or hightop Hxr-tsu-cuxak medical-grade oxford diabetic shoes, depth or hightop, [...] DOLOR Start Date: 11/24/22 Status: Ordered Pen [place], 32 G x 4 mm BD Ultra [...] 4 Refills, Maintenance, 05/09/23 10:10:00 EST, Tablet, [facility]/pharmacy #0838, Partial fill upon [...] 15 mL, 3 Refills, Maintenance, 02/24/2312:11:00 EST, [facility]/pharmacy #0838, Partial fill upon [...] Date: 03/09/22 Stop Date: 06/01/22 Status: Ordered [place] Reusable Bed Pad 34 x 36 [place] Reusable Bed Pad 34 x 36 , [...] Confirmed 12/29/11 Active 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 06/16/08 SURGEON: Danny Marie M.D. SURVEILLANCE SUPERVISOR: Naima Bowling M.D. 22b/l submassive PE diagnosed on Dec [address] [facility] 23TTE 12/22/[address] [facility]: RV dilatation, RVSP 46 24Per ECHO 05/24/17 Trace mitral regurgitation , trace TC regurgitation w no significant valve pathology 25meg colo July 2009 exc for 2 hyperplastic polyps 26Colonoscopy 2004 at [facility] [place] per letter of Dr Amor Dobbins Social History Social History Type Response Smoking Status Never (less than 100 in lifetime) entered on: 10/22/20 Sex Patient Care team information Care Team Personnel Name: Massimo Figueroa Position: [facility] Outreach Member Role: PCP Address: Address: [address] [place] [address]- Name: Diamond Weiss RN Position: [facility] RN Member Role: Primary Care Nurse Name: Tiara Cavazos RN Position: [facility] OB RN Member Role: Primary Care Nurse Name: Shreya Boss RN Position: [facility] RN Member Role: Primary Care Nurse Name: Dhruv Khan RN Position: [facility] RN Member Role: Primary Care Nurse Name: Virginia Benson RN Position: [facility] SN RN Member Role: Primary Care Nurse Name: Mary RN, Jaylin Position: [facility] Onco RN Member Role: Primary Care Nurse Name: Glen Cota MD Position: [facility] Renal MD Member Role: Lifetime Consulting Physician Address: Address: [address] [place] [address] [facility] [address] Name: Carole Toro LPN Position: S RN Member Role: Primary Care Nurse Care Team Related Persons Name: JOSE ELIAS TODD Address: [place] [address] Name: JOSE ELIAS KIRKLAND Address: home [address] [place] [address] Name: LEONIE SCHRADER Address: [place] [address]
--- OUTSIDE RECORDS SUMMARY | 2023-10-23 09:42 | XMS_ITS | Continuity of Care Document ---
Author Organization [facility] Address [address] [place] [address]- Care Team Providers Care Maintenance Clerk Name Role Phone Florinda Trinh MD Primary Care Physician Encounter [facility] Date(s): 08/21/21 - 09/30/21 [facility] [address] [place] [id number] Attending Physician: Florinda Trinh MD Admitting Physician: Florinda Trinh MD Referring Physician: Florinda Trinh MD Allergies, Adverse Reactions, Alerts Substance Reaction Severity Status penicillin RASH Active morphine itchy Active Bactrim 1 hyperkalemia Active Lidocaine, Topical Active 1Hyperkalemia when used together with lisinopril Immunizations Given and Recorded Vaccine Date Status Refusal Reason zoster vaccine, inactivated 09/15/21 Given SARS-CoV-2 mRNA (kognndi-wxav-iaewh) vax 09/15/21 Given SARS-CoV-2 (COVID-19) mRNA BNT-162b2 [...] exceed 2000 mg/day) uzbek, # 100 tablet, 11 Refills, Maintenance, 04/28/21 [...] Biotene Moisturizing Mouth oral spray See Instructions, [place] directly into mouth; spray is safe to swallow as needed for dry mouth, # 45mL, 11 Refills, Maintenance, 07/21/21 12:43:00 EDT, [facility], [place] directly into mouth; spray is safe to [...] needed for anxiety and 1tab at HS fztwyt-wpp-sdfoe, # 60 tablet, 11 Refills, Maintenance, 09/15/21 [...] 11 Refills, Maintenance, 12/09/20 11:15:00 EDT, Tablet, [facility]/pharmacy #1026, Partial fill [...] tablet, 3 Refills, Maintenance, 09/15/21 8:56:00 EDT, [facility]/pharmacy #1026, 160, cm, 09/15/21 8:15:00 EDT,... Start Date: 09/15/21 Status: Ordered Flomax 0.4 mg oral capsule 0.4 mg, 1, capsule, By Mouth, Daily, for 30 days, # 30 capsule, Refills 0, Tot. Refills 0, Acute 10/15/21 9:09:00 EDT, 09/15/21 9:09:00 EDT, Route to Pharmacy Electronically, [facility]/pharmacy #1026, 160,cm, 09/15/21 8:15:00 EDT, Height, 80.6, kg, ... Start Date: 09/15/21 Stop Date: 10/15/21 Status: Ordered FREESTYLE LITE TEST STRIP FREESTYLE [...] 04/28/21 14:34:00 EST, Route to Pharmacy Electronically, [facility]/pharmacy #1026, Can use with HCTZ, [...] capsule, 3 Refills, Maintenance, 10/22/20 10:35:00 EDT, [facility]/pharmacy #1026, 160, cm, 10/22/20 9:15:00 EDT, Height, 80.6, kg, 06/03/20 19:00:00 EST, Dry Weight Start Date: 10/22/20 Stop Date: 10/17/21 Status: Ordered ketotifen 0.025% ophthalmic solution 1 drops, Eyes, Both, Every 12 hours, PRN as needed for eye allergy, # 7.5 mL, 11 Refills, Maintenance, 06/25/21 8:34:00 EDT, [facility]/pharmacy #1026, 1 [...] DAILY, E11.65, # 90 tablet, 2 Refills, [facility] STORE 19252, 160, cm, 06/21/21 9:57:00 EDT, Height, 80.6, [...] 0 Refills, Maintenance, 09/21/21 9:23:00 EDT, Tablet, [facility], P... Start Date: 09/21/21 Status: Ordered Norvasc 5 mg oral tablet 5 mg, 1, tablet, By Mouth, Daily, # 30 tablet, Refills 0, Tot. Refills 0, Maintenance, 09/21/21 9:23:00 EDT, Route to Pharmacy Electronically, [facility], Partial fill upon patient request if the [...] 78.8, kg,... Start Date: 01/21/20 Status: Ordered Lqz-bbl-kteqa medical-grade oxford diabetic shoes, depth or hightop Pju-boh-dqtlu medical-grade oxford diabetic shoes, depth or hightop, [...] Date: 11/29/21 Stop Date: 12/27/21 Status: Ordered oxyCODONE 5 mg oral tablet 5 mg, 1, tablet, By Mouth, Every 4 hours, for 28 days, PRN pain dispense not earlier than 10/04/21 Please dispense KVTek brand (K18) If oxycodone 5 mg tablet is not available, it can be switched to oxycodone 10 mg 0.5 tablets 4 hours x28 days f... Start Date: 10/04/21 Stop Date: 11/01/21 Status: Ordered Pen [place], 32 G x 4 mm BD Ultra [...] 04/28/21 14:02:00 EST, Route to Pharmacy Electronically, [facility]/pharmacy #1029, 160... Start Date: 04/28/21 Stop Date: 04/23/22 [...] 527 Gm,11 Refills, Maintenance, 01/27/20 19:13:00 EDT, [facility]/pharmacy #1026, 17- 34 Gm By [...] 11 Refills, Maintenance, 04/28/21 14:03:00 EST, Tablet, [facility]/pharmacy #1026, 160, cm, 04/28/21 9:50:00 EST, Height, 80.6, kg, 06/03/20 19:00:00 EST, Dry Weight Start Date: 04/28/21 Status: Ordered Senna-Time 8.6 mg oral tablet 2 tablet, By Mouth, 2 times a day, PRN NEEDED FOR CONSTIPATION,INSTR, DISCONTINUE DOCUSATE, # 60tablet, 11 Refills, [facility] STORE 79963, 160, cm, 03/03/21 11:23:00 EST, Height, 80.6, kg, 06/03/20 19:00:00 EST, Dry Weight Start Date: 04/05/21 Status: Ordered Shingrix intramuscular injection 0.5 mL, Intramuscular, Once, repeat dose in 2 months, # 0.5 mL, 1 Refills, Soft Stop, 09/15/21 8:44:00 EDT, [facility], Partial fill upon patient request if the prescription is for a schedule II opioid drug., 0.5 mL Intramuscular O... Start Date: 09/15/21 Status: Ordered Shoes insert, molded to foot [...] 02/22/21 17:50:00 EST, Route to Pharmacy Electronically, [facility]/pharmacy #1026, 1... Start Date: 02/22/21 [...] 09/15/21 9:03:00 EDT, Route to Pharmacy Electronically, [facility]/pharmacy #1026, Partial fill upon patient request if the prescri... Start Date: 09/15/21 Stop Date: 03/02/22 Status: Ordered Trelegy Ellipta inhalation powder 1 puffs, Inhalation, Daily, at the same time every day Given by Aoc Operations Intelligence Officer, Dr. Michael Berkowitz, # 60 each, 0 Refills, Maintenance, 07/21/21 11:59:00 EDT, Powder, Partial fill upon patient request if the prescription is for a schedule II opi... Start Date: 07/21/21 Status: Ordered Tresiba FlexTouch 200 units/mL subcutaneous solution See Instructions, INJECT 86 UNITS DAILY AT 9PM, # 45 Unknown, 6 Refills, [facility] STORE 59[facility], 160, cm, 06/21/21 9:57:00 EDT, Height, 80.6, kg, 06/03/20 19:00:00 EST, Dry Weight Start Date: 06/22/21 Status: Ordered Ventolin HFA 108 mcg/inh inhalation aerosol with adapter 2 puffs, Inhalation, 4 times a day, PRN Wheezing/Shortness of Breath, dispense when patient requestit, # 18 Gm, 5 Refills, Maintenance, 11/09/20 12:36:00 EDT, [facility]/pharmacy #1026, 160, cm, 10/22/20 9:15:00 EDT, Height, 80.6, kg, 06/03/20 19:00:00 EST,... Start Date: 11/09/20 Status: Ordered Voltaren 1% topical gel = 2 Gm, Topically, 4 times a day, # 100 Gm, 5 Refills, Maintenance, 02/15/21 11:40:00 EST, [facility]/pharmacy #1026, 2 Gm Topically 4 times a day,x14 days, 160, cm, 02/15/21 8:47:00 EST, Height, 80.6, kg, 06/03/20 19:00:00 EST, Dry Weight Start Date: 02/15/21 Stop Date: 05/10/21 Status: Ordered [place] Reusable Bed Pad 34 x 36 [place] Reusable Bed Pad 34 x 36 , [...] 11 Refills, Maintenance, 10/22/20 10:19:00 EDT, Tablet, [facility]/pharmacy #1026, Partial fill upon patient request if the prescription is for a schedule II opioid drug., 1 tablet B... Start Date: 10/22/20 Status: Ordered Zofran 4 mg oral tablet 1 tablet = 4 mg, By Mouth, Every 8 hours, PRN Nausea & Vomiting, # 15 tablet, 1 Refills, Maintenance, 06/04/21 16:16:00 EST, Tablet, [facility]/pharmacy #1026, Partial fill [...] apnea)(Confirmed) Active Osteopenia(Confirmed) 18, 19 11/16/12 Active *[id number] Cheri Partn igor More(Confirmed) Active Peripheral venous [...] 1 11left mild sensorineural hearing loss by [facility] Hearing Evaluation on 12/29/11 12Narcotic contract [...] lower parathyroidectomy. 06/16/08 SURGEON: Danny Marie M.D. GATE SHEAR OPERATOR: Naima Bowling M.D. 21b/l submassive PE diagnosed on Dec 20 in [facility] 22TTE 12/22/15 in [facility]: RV dilatation, RVSP 46 23Per ECHO 05/24/17 Trace mitral regurgitation , trace TC regurgitation w no significant valve pathology 24meg colo July 2009 exc for 2 hyperplastic polyps 25Colonoscopy 2004 at [facility] [place] per letter of Dr Amor Dobbins Social History Social History Type Response Smoking Status Never (less than 100 in lifetime) entered on: 10/22/20 Sex
--- OUTSIDE RECORDS SUMMARY | 2023-10-23 09:42 | XMS_ITS | Continuity of Care Document ---
Author Organization [facility] Address Unknown Care Team Providers Care Manager Games Name Role Phone Gayathri GARZA, Florinda Primary Care Physician Encounter [facility] Date(s): 06/07/21 - 07/07/21 [facility] Allergies, Adverse Reactions, Alerts Substance [...] mongolian, # 100 tablet, 11 Refills, Maintenance, 04/28/21 13:24:00 EST, [facility]/pharmacy #[id number], 160, cm, 04/28/21 9:50:00 EST, [...] 11 Refills, Maintenance, 01/27/20 19:13:00 EDT, [facility]/pharmacy #[id number], 1 applicator Topically 2 times [...] Refills, Maintenance, 02/10/20 11:22:00 EST, Cream, [facility]/pharmacy #1026, 1 application Topically 3 times [...] 11 Refills, Maintenance, 04/21/21 18:12:00 EST, Tablet, [facility]/pharmacy #1026, 160, cm, 03/03/21 11:23:00 EST, Height, 80.6, kg, 06/03/20 19:00:00 EST, Dry Weight Start Date: 04/21/21 Status: Ordered escitalopram 20 mg oral tablet 1 tablet = 20 mg, By Mouth, Daily, Discontinue duloxetine 60 mg, # 30 tablet, 11 Refills, Maintenance, 12/09/20 11:15:00 EDT, Tablet, [facility]/pharmacy #[id number], Partial fill upon patient request [...] tablet, 3 Refills, Maintenance, 06/30/20 14:55:00 EDT, Tablet,[facility]/pharmacy #1026, Discontinue 30- day supply presc... [...] 04/28/21 14:34:00 EST, Route to Pharmacy Electronically, [facility]/pharmacy #1026, Can use with HCTZ, 160, [...] capsule, 3 Refills, Maintenance, 10/22/20 10:35:00 EDT, [facility]/pharmacy #1026, 160, cm, 10/22/20 9:15:00 EDT, Height, 80.6, kg, 06/03/20 19:00:00 EST, Dry Weight Start Date: 10/22/20 Stop Date: 10/17/21 Status: Ordered ketotifen 0.025% ophthalmic solution 1 drops, Eyes, Both, Every 12 hours, PRN as needed for eye allergy, # 7.5 mL, 11 Refills, Maintenance, 06/25/21 8:34:00 EDT, [facility]/pharmacy #[id number], 1 drops Eyes, Both Every [...] 78.8, kg,... Start Date: 01/21/20 Status: Ordered Ugd-jht-ewaan medical-grade oxford diabetic shoes, depth or hightop Adg-eaa-csisx medical-grade oxford diabetic shoes, depth or hightop, [...] 07/12/21 Stop Date: 08/09/21 Status: Ordered Pen [place], 32 G x 4 mm BD Ultra [...] 04/28/21 14:02:00 EST, Route to Pharmacy Electronically, [facility]/pharmacy #1027, 160... Start Date: 04/28/21 Stop Date: 04/23/22 [...] Gm,11 Refills, Maintenance, 01/27/20 19:13:00 EDT, [facility]/pharmacy #1026, 17- 34 Gm By Mouth [...] 11 Refills, Maintenance, 04/28/21 14:03:00 EST, Tablet, [facility]/pharmacy #1026, 160, cm, 04/28/21 9:50:00 EST, Height, 80.6, kg, 06/03/20 19:00:00 EST, Dry Weight Start Date: 04/28/21 Status: Ordered Senna-Time 8.6 mg oral tablet 2 tablet, By Mouth, 2 times a day, PRN NEEDED FOR CONSTIPATION,INSTR, DISCONTINUE DOCUSATE, # 60tablet, 11 Refills, [id number], 160, cm, 03/03/21 11:23:00 EST, Height, 80.6, [...] 02/22/21 17:50:00 EST, Route to Pharmacy Electronically, [facility]/pharmacy #[id number], 1... Start Date: 02/22/21 Status: [...] 02/15/21 11:39:00 EST, Route to Pharmacy Electronically, [facility]/pharmacy #[id number],Partial fill upon patient request if the prescrip... Start Date: 02/15/21 Stop Date: 03/29/21 Status: Ordered Trelegy Ellipta inhalation powder 1 puffs, Inhalation, Daily, at the same time every day given by geophysical support specialist , Dr Berkowitz, # 60 each, 0 Refills, Maintenance, 11/20/19 13:03:00 EDT, Powder Start Date: 11/20/19 Status: Ordered Tresiba FlexTouch 200 units/mL subcutaneous solution See Instructions, INJECT 86 UNITS DAILY AT 9PM, # 45 Unknown, 6 Refills, [id number], 160, cm, 06/21/21 9:57:00 EDT, Height, 80.6, kg, 06/03/20 19:00:00 EST, Dry Weight Start Date: 06/22/21 Status: Ordered Ventolin HFA 108 mcg/inh inhalation aerosol with adapter 2 puffs, Inhalation, 4 times a day, PRN Wheezing/Shortness of Breath, dispense when patient requestit, # 18 Gm, 5 Refills, Maintenance, 11/09/20 12:36:00 EDT, [facility]/pharmacy #[id number], 160, cm, 10/22/20 9:15:00 EDT, [...] Date: 02/15/21 Stop Date: 05/10/21 Status: Ordered [place] Reusable Bed Pad 34 x 36 Brackney Reusable Bed Pad 34 x 36 , [...] apnea)(Confirmed) Active Osteopenia(Confirmed) 18, 19 11/16/12 Active *[id number] [facility] Part[facility](Confirmed) Active Peripheral venous insufficiency(Confirmed) 10/31/11 [...] peroneal veins diagnosed on Dec 20 [facility] 6insulin dependent 7Per ECHO 05/24/1718 Grade [...] 1 11left mild sensorineural hearing loss by [facility] Hearing Evaluation on 12/29/11 12Narcotic contract [...] parathyroidectomy. 06/16/08 SURGEON: Danny Marie M.D. RN TRANSPORT: Naima Bowling M.D. 21b/l submassive PE diagnosed on Dec [address] [facility] TTE 12/22/[address] [facility]: RV dilatation, RVSP 46 23Per ECHO 05/24/17 Trace mitral regurgitation , trace TC regurgitation w no significant valve pathology 24meg colo July 2009 exc for 2 hyperplastic polyps 25Colonoscopy 2004 at [facility] [place] per letter of Dr Amor Dobbins Social History Social History Type Response Smoking Status Never (less than 100 in lifetime) entered on: 10/22/20 Sex
--- OUTSIDE RECORDS SUMMARY | 2023-10-23 09:43 | XMS_ITS | Continuity of Care Document ---
Author Organization [facility] Address [address] [place] [id number]- Care Team Providers Care Choker Hooker Name Role Phone Gayathri GARZA, Florinda Primary Care Physician Encounter [facility] Date(s): 04/17/20 - 05/17/20 [facility] [address] [address]- Allergies, Adverse Reactions, Alerts Substance Reaction Severity [...] or fever, (not to exceed 2000 mg/day) mohawk, # 100 tablet, 5 Refills, Maintenance, 01/22/20 [...] 19:13:00 EDT, 01/27/20 19:13:00 EDT, Tablet, [facility]/pharmacy #[id number], 167, cm, 01/13/20 8:54:00 EDT, Height, 78.8, kg, 01/01/20 3:41:00 EDT, Dry... Start Date: 01/27/20 Stop Date: 01/21/21 Status: Ordered capsaicin 0.025% topical cream 1 application, Topically, 3 times a day, # 90 Gm, 11 Refills, Maintenance, 02/10/20 11:22:00 EST, Cream, [facility]/pharmacy #[id number], 1 application Topically 3 times [...] Maintenance, 01/27/20 19:13:00 EDT, EC Capsule, [facility]/pharmacy #[id number], 167, cm, 01/13/20 8:54:00 EDT, Height, 78.8, kg, 01/01/20 3:41:00 EDT, Dry Weight Start Date: 01/27/20 Status: Ordered Eliquis 5 mg oral tablet 1 tablet = 5 mg, By Mouth, 2 times a day, # 60 tablet, 11 Refills, Maintenance, 02/10/20 11:22:00 EST, Tablet, [facility]/pharmacy #1026, 167, cm, 01/13/20 8:54:00 EDT, Height, 78.8, kg, 01/01/20 3:41:00 EDT, Dry Weight Start Date: 02/10/20 Status: Ordered enalapril 10 mg oral tablet 10 mg, 1, tablet, By Mouth, Daily, discontinue hydrochlorothiazide, # 30 tablet, Refills 11, Tot. Refills 11, Maintenance, 04/29/20 13:04:00 EST, Route to Pharmacy Electronically, [facility]/pharmacy #1026,167, cm, 04/29/20 9:24:00 EST, Height, 82, kg, 01... Start Date: 04/29/20 Status: Ordered famotidine 40 mg oral tablet 1 tablet = 40 mg, By Mouth, Daily at bedtime, If 40 mg tablet is not available, can change to 20 mgtablet 2 tablet at bedtime, # 30 tablet, 2 Refills, Maintenance, 04/04/20 16:07:00 EST, Tablet, [facility]/pharmacy #1026, 167, cm, 02/24/20 17:04:00 EST, Hei... Start Date: 04/04/20 Status: Ordered ferrous sulfate 325 mg oral tablet 1 tablet = 325 mg, By Mouth, Daily, May take with food to minimize abdominal discomfort. Do not take with milk. Take preferrably with juice., # 90 tablet, 2 Refills, Maintenance, 01/22/20 9:38:00 EDT, [facility]/pharmacy #[id number], 167, cm, 01/13/20 8:54:00 EDT,... [...] 4 Refills, Maintenance, 01/22/20 9:39:00 EDT, [facility]/pharmacy #1026, 167, cm, 01/13/20 8:54:00 EDT, [...] 9:41:00 EDT, Route to Pharmacy Electronically, [facility]/pharmacy #1026, 167, cm, 01/13/20 8:54:00 EDT, Height, 78... Start Date: 01/22/20 Status: Ordered NovoLOG FlexPen 100 units/mL subcutaneous solution See Instructions, Inject up to 26 untis via Insulin sliding scale 3x a day w/meals,MAX daily dose 78 units, E11.65, # 45 mL, 6 Refills, Maintenance, 01/21/20 14:30:00 EDT, [facility]/pharmacy #1026, 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 Start Date: 01/21/20 Status: Ordered Doz-ntz-qwkwg medical-grade oxford diabetic shoes, depth or hightop Eav-eab-rcvrl medical-grade oxford diabetic shoes, depth or hightop, [...] 07/10/20 Stop Date: 08/07/20 Status: Ordered Pen [place], 32 G x 4 mm BD Ultra [...] Gm,11 Refills, Maintenance, 01/27/20 19:13:00 EDT, [facility]/pharmacy #1026, 17- 34 Gm By Mouth [...] 11:22:00 EST, Route to Pharmacy Electronically, [facility]/pharmacy #1026 Tablet, 167, cm, 01/13/20 8:5... [...] 9:28:00 EST, Route to Pharmacy Electronically, [facility]/pharmacy #1026, 167,... Start Date: 05/01/20 Status: Ordered TENS electrode pads TENS electrode pads, See Instructions, # 1 box, Refills 5, Tot. 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 06/16/08 SURGEON: Danny Marie M.D. [employer] SUPERINTENDENT: Naima Bowling M.D. 21b/l submassive PE diagnosed on Dec 20 in [facility] 22TTE 12/22/15 in [facility]: RV dilatation, RVSP 46 23Per ECHO 05/24/17 Trace mitral regurgitation , trace TC regurgitation w no significant valve pathology 24meg colo July 2009 exc for 2 hyperplastic polyps 25Colonoscopy 2004 at [facility] [place] per letter of Dr Amor Dobbins Social History Social History Type Response Smoking Status Never (less than 100 in lifetime) entered on: 04/29/20 Sex
--- OUTSIDE RECORDS SUMMARY | 2023-10-23 09:43 | XMS_ITS | Continuity of Care Document ---
Author Organization [facility] Address Unknown Care Team Providers Care Manager Power Name Role Phone Gayathri GARZA, Florinda Primary Care Physician En[place] [facility] Date(s): 04/20/21 - 05/20/21 [facility] Allergies, Adverse Reactions, Alerts Substance Reaction [...] or fever, (not to exceed 2000 mg/day) afghan, # 100 tablet, 11 Refills, Maintenance, 04/28/21 13:24:00 EST, [facility]/pharmacy #1026, 160, cm, 04/28/21 9:50:00 EST, Height, [...] Refills, Maintenance, 01/27/20 19:13:00 EDT, [facility]/pharmacy #1026, 1 applicator Topically 2 times a day, 167, cm, 01/13/20 8:54:00 EDT, Height, 78.8, kg, 01/01/20 3:41:00 EDT, Dry Weight Start Date: 01/27/20 Status: Ordered Baqsimi Two Pack 3 mg nasal powder = 3 mg, Naris, Right, Once, Please use for a low blood sugar emergency, may repeat in 15 minutes, #2 each, 3 Refills, Soft Stop, 06/26/20 7:30:00 EDT, [facility]/pharmacy #1026, Partial fill upon patient request if [...] Maintenance, 02/10/20 11:22:00 EST, Cream, [facility]/pharmacy #1026, 1 application Topically 3 times a [...] Refills, Maintenance, 04/21/21 18:12:00 EST, Tablet, [facility]/pharmacy #1026, 160, cm, 03/03/21 11:23:00 EST, Height, 80.6, kg, 06/03/20 19:00:00 EST, Dry Weight Start Date: 04/21/21 Status: Ordered escitalopram 20 mg oral tablet 1 tablet = 20 mg, By Mouth, Daily, Discontinue duloxetine 60 mg, # 30 tablet, 11 Refills, Maintenance, 12/09/20 11:15:00 EDT, Tablet, [facility]/pharmacy #1026, Partial fill upon patient request if [...] Refills, Maintenance, 06/30/20 14:55:00 EDT, Tablet,[facility]/pharmacy #1026, Discontinue 30- day supply presc... Start [...] 14:34:00 EST, Route to Pharmacy Electronically, [facility]/pharmacy #1026, Can use with HCTZ, 160, cm, [...] 3 Refills, Maintenance, 10/22/20 10:35:00 EDT, [facility]/pharmacy #1026, 160, cm, 10/22/20 9:15:00 EDT, Height, 80.6, kg, 06/03/20 19:00:00 EST, Dry Weight Start Date: 10/22/20 Stop Date: 10/17/21 Status: Ordered ketotifen 0.025% ophthalmic solution 1 drops, Eyes, Both, Every 12 hours, PRN as needed for eye allergy, # 7.5 mL, 11 Refills, Maintenance, 01/27/20 19:13:00 EDT, [facility]/pharmacy #1026, 1 drops Eyes, Both Every 12 [...] 78.8, kg,... Start Date: 01/21/20 Status: Ordered Btk-jah-tknci medical-grade oxford diabetic shoes, depth or hightop Cti-uer-adhmi medical-grade oxford diabetic shoes, depth or hightop, [...] 07/12/21 Stop Date: 08/09/21 Status: Ordered Pen [place], 32 G x 4 mm BD Ultra [...] 14:02:00 EST, Route to Pharmacy Electronically, [facility]/pharmacy #1026, 160... Start Date: 04/28/21 Stop Date: [...] Refills, Maintenance, 01/27/20 19:13:00 EDT, [facility]/pharmacy #1026, 17- 34 Gm By Mouth Daily,PRN:asneeded [...] Refills, Maintenance, 04/28/21 14:03:00 EST, Tablet, [facility]/pharmacy #1026, 160, cm, 04/28/21 9:50:00 EST, Height, 80.6, kg, 06/03/20 19:00:00 EST, Dry Weight Start Date: 04/28/21 Status: Ordered Senna-Time 8.6 mg oral tablet 2 tablet, By Mouth, 2 times a day, PRN NEEDED FOR CONSTIPATION,INSTR, DISCONTINUE DOCUSATE, # 60tablet, 11 Refills, [id number], 160, cm, 03/03/21 11:23:00 EST, Height, 80.6, [...] 17:50:00 EST, Route to Pharmacy Electronically, [facility]/pharmacy #1026, 1... Start Date: 02/22/21 Status: Ordered [...] 11:39:00 EST, Route to Pharmacy Electronically, [facility]/pharmacy #1026,Partial fill upon patient request if the prescrip... 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 06/16/08 SURGEON: Danny Marie M.D. COMPO CONVEYOR OPERATOR: Naima Bowling M.D. 21b/l submassive PE diagnosed on Dec 20 in [facility] 22TTE 12/22/15 in [facility]: RV dilatation, RVSP 46 23Per ECHO 05/24/17 Trace mitral regurgitation , trace TC regurgitation w no significant valve pathology 24meg colo July 2009 exc for 2 hyperplastic polyps 25Colonoscopy 2004 at [facility] [place] per letter of Dr Amor Dobbins Social History Social History Type Response Smoking Status Never (less than 100 in lifetime) entered on: 10/22/20 Sex
--- OUTSIDE RECORDS SUMMARY | 2023-10-23 09:43 | XMS_ITS | Continuity of Care Document ---
Author Organization [facility] Address [address] [place] [address]- Care Team Providers Care Saute Chef Name Role Phone Gayathri GARZA, Florinda Primary Care Physician Encounter [facility] Date(s): 05/13/22 - 06/12/22 [facility] [address] [place] [address]- Allergies, Adverse Reactions, Alerts Substance Reaction Severity Status enalapril Active penicillin RASH Active morphine itchy Active Lidocaine, Topical Active Bactrim 1 hyperkalemia Active 1Hyperkalemia when used together with lisinopril Immunizations Given and Recorded Vaccine Date Status Refusal Reason [id number] 12y+ bivalent booster vax 05/25/22 Given influenza [...] zoster vaccine, inactivated 09/15/21 Given SARS-CoV-2 mRNA ([id number]) vax 09/15/21 Given SARS-CoV-2 (COVID-19) mRNA [id number] [...] Gm, 11 Refills, Maintenance, 07/21/21 12:43:00 EDT, [facility]/pharmacy #1026, 1 applicator Topically 2 times a day, 160, cm, 07/21/21 10:22:00 EDT, Height, 80.6, kg, 06/03/20 19:00:00 EST, Dry Weight Start Date: 07/21/21 Status: Ordered Baqsimi Two Pack 3 mg nasal powder = 3 mg, Naris, Right, Once, Please use for a low blood sugar emergency, may repeat in 15 minutes, #1 each, 3 Refills, Soft Stop, 03/09/22 11:35:00 EST, [facility]/pharmacy #0838, 160, cm, 03/09/22 10:43:00EST, Height, 78, kg, 01/14/22 19:37:00 EDT, Dry W... Start Date: 03/09/22 Status: Ordered Biotene Moisturizing Mouth oral spray See Instructions, [place] directly into mouth; spray is safe to swallow as needed for dry mouth, # 45mL, 11 Refills, Maintenance, 05/25/22 12:42:00 EST, [facility]/pharmacy #0838, Partial fill upon patient [...] needed for anxiety and 1tab at HS [id number], # 60 tablet, 11 Refills, Maintenance, 09/15/21 9:02:00 EDT, [facility]/pharmacy #1026, Partial fill upon patient request... Start Date: 09/15/21 Status: Ordered capsaicin 0.025% topical cream 1 application, Topically, 3 times a day, # 35 Gm, 11 Refills, Maintenance, 07/21/21 12:26:00 EDT, Cream, [facility]/pharmacy #1026, 1 application Topically 3 [...] Refills, Maintenance, 12/06/21 15:04:00 EDT, Tablet, [facility], Partial fill upon [...] tablet, 3 Refills, Maintenance, 07/12/21 18:53:00 EDT, Tablet,[facility]/pharmacy #1026, Discontinue 30- day supply presc... Start Date: 07/12/21 Stop Date: 07/07/22 Status: Ordered ferrous sulfate 325 mg oral tablet 1 tablet = 325 mg, By Mouth, Daily, May take with food to minimize abdominal discomfort. Do not take with milk. Take preferrably with juice., # 90 tablet, 3 Refills, Maintenance, 09/15/21 8:56:00 EDT, [facility]/pharmacy #1026, 160, cm, 09/15/21 8:15:00 [...] 04/19/22 10:15:00 EST, Route to Pharmacy Electronically, [facility]/pharmacy #[id number], Partial fill upon patient request if the prescription is for a schedule II opioi... Start Date: 04/19/22 Status: Ordered ketotifen 0.025% ophthalmic solution 1 drops, Eyes, Both, Every 12 hours, PRN as needed for eye allergy, # 7.5 mL, 11 Refills, Maintenance, 06/25/21 8:34:00 EDT, [facility]/pharmacy #1026, 1 drops Eyes, Both [...] 90 tablet, 3 Refills, 03/09/22 11:57:00 EST, [facility]/pharmacy #0838, 1 tablet By Mouth Daily before dinner,PRN:allergies, 160, cm, 03/09/22 10:43:00 EST, Height, 78, kg, 01/14/22 19:37:00 ED... Start Date: 03/09/22 Status: Ordered montelukast 10 mg oral tablet 10 mg, 1, tablet, By Mouth, Daily at bedtime, # 90 tablet, Refills 3, Tot. Refills 3, Maintenance, 03/09/22 11:37:00 EST, Route to Pharmacy Electronically, [facility]/pharmacy #0838, 160, cm, 03/09/22 10:43:00 EST, Height, 78, kg, 01/14/22 19:37:00 EDT, Dry... Start Date: 03/09/22 Stop Date: 03/04/23 Status: Ordered Nexium 40 mg oral enteric coated capsule 1 capsule = 40 mg, By Mouth, Daily, 30 minutes before breakfast, # 30 capsule, 2 Refills, Maintenance, 05/02/22 15:39:00 EST, [facility]/pharmacy #0838, Discontinue pantoprazole, 160, cm, 04/19/22 9:55:00 EST, Height, 76, kg, 04/12/22 16:37:00 EST, Dry Weight Start Date: 05/02/22 Stop Date: 07/31/22 Status: Ordered Norvasc 5 mg oral tablet 5 mg, 1, tablet, By Mouth, Daily, # 90 tablet, Refills 3, Tot. 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 Start Date: 03/09/22 Status: Ordered Zhx-uge-npuxv medical-grade oxford diabetic shoes, depth or hightop Oky-san-syiwt medical-grade oxford diabetic shoes, depth or hightop, [...] 05/27/22 Stop Date: 06/24/22 Status: Ordered Pen [place], 32 G x 4 mm BD Ultra [...] tablet, 11 Refills, Maintenance, 03/09/22 11:39:00 EST, [facility]/pharmacy #0838, 160, cm, 03/09/22 10:43:00 [...] the same time every day Given by Radial Drill Operator, Dr. 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 8endoscopy 10/05/2018 w non bleeding grade 1 esophageal varices 9EGD on 06/24/16 by GI, Dr Damien Dobbins w gastritis and esophageal varices grade 1 10EGD on 06/24/16 by GI, Dr Damien Dobbins w gastritis and esophageal varices grade 1 11left mild sensorineural hearing loss by [facility] Hearing Evaluation on 12/29/11 12Narcotic contract [...] lower parathyroidectomy. 06/16/08 SURGEON: Danny Marie M.D. DIRECTOR OF FIELD SERVICE: Naima Bowling M.D. 22b/l submassive PE diagnosed on Dec 20 in [facility] 23TTE 12/22/15 in [facility]: RV dilatation, RVSP 46 24Per ECHO 05/24/17 Trace mitral regurgitation , trace TC regurgitation w no significant valve pathology 25meg colo July 2009 exc for 2 hyperplastic polyps 26Colonoscopy 2004 at [facility] [place] per letter of Dr Amor Dobbins Social History Social History Type Response Smoking Status Never (less than 100 in lifetime) entered on: 10/22/20 Sex Patient Care team information Care Team Personnel Name: Diamond Weiss RN Position: [facility] RN Member Role: Primary Care Nurse Name: Tiara Cavazos RN Position: [facility] OB RN Member Role: Primary Care Nurse Name: Shreya Boss RN Position: [facility] RN Member Role: Primary Care Nurse Name: Jaylin Hernandez RN Position: [facility] Onco RN Member Role: Primary Care Nurse Name: Glen Cota MD Position: [facility] Renal MD Member Role: Lifetime Consulting Physician Address: Address: [address] [place] [address] [facility] [address] Name: Florinda Trinh MD Position: [facility] Primary Care Physician Member Role: PCP Address: Address: [address] [place] [address] Care Team Related Persons Name: JOSE ELIAS TODD Address: [place] [address] Name: JOSE ELIAS KIRKLAND Address: home [address] [place] [id number] Name: LEONIE SCHRADER Address: [place] [address]
--- OUTSIDE RECORDS SUMMARY | 2023-10-23 09:43 | XMS_ITS | Continuity of Care Document ---
Author Organization [facility] Address [address] [place] [address]- Care Team Providers Care Automatic Lathe Operator Name Role Phone Gayathri GARZA, Florinda Primary Care Physician [facility] Date(s): 05/06/20 - 06/05/20 [facility] [place] [address] [place] [address]- Allergies, Adverse Reactions, Alerts Substance Reaction Severity [...] by melissa chiu 7Admin Note: ADMINISTERED BY R.NLizbet 8Result [...] or fever, (not to exceed 2000 mg/day) german, # 100 tablet, 5 Refills, Maintenance, 01/22/20 [...] Dry Weight Start Date: 01/27/20 Status: Ordered doxycycline hyclate 100 mg oral capsule 1 capsule = 100 mg, By Mouth, 2 times a day, for 3 days, # 6 capsule, 0 Refills, Acute 06/07/20 10:38:00 EST, 06/04/20 10:38:00 EST, Capsule, [id number], Partial fill upon patient request if the prescription is for a schedule II opioid drug.,... Start Date: 06/04/20 Stop Date: 06/07/20 Status: Ordered Eliquis 5 mg oral tablet [...] 2 Refills, Maintenance, 04/04/20 16:07:00 EST, Tablet, [id number], 167, cm, 02/24/20 17:04:00 EST, Hei... [...] capsule, 4 Refills, Maintenance, 01/22/20 9:39:00 EDT, [facility]/pharmacy #[id number], 167, [...] 01/22/20 9:41:00 EDT, Route to Pharmacy Electronically, [facility]/pharmacy #[id number], 167, cm, [...] 78.8, kg,... Start Date: 01/21/20 Status: Ordered Qnw-tuu-zvzst medical-grade oxford diabetic shoes, depth or hightop Spg-mrs-tqqtr medical-grade oxford diabetic shoes, depth or hightop, [...] EST, 05/15/20 10:25:00 EST, Route toPharmacy Electronically, [facility]/pharmacy #[id number], Parti... Start Date: 05/15/20 Stop Date: 06/12/20 Status: Ordered oxyCODONE 5 mg oral tablet 5 mg, 1, tablet, By Mouth, Every 4 hours, for 28 days, PRN pain dispense not earlier than 06/12/20, #168 tablet, Refills 0, Tot. Refills 0, Acute 07/10/20 10:25:00 EDT, 06/12/20 10:25:00 EST, Route toPharmacy Electronically, [facility]/pharmacy #[id number], Parti... Start Date: 06/12/20 Stop Date: 07/10/20 Status: Ordered oxyCODONE 5 mg oral tablet 5 mg, 1, tablet, By Mouth, Every 4 hours, for 28 days, PRN pain dispense not earlier than 07/10/20, #168 tablet, Refills 0, Tot. Refills 0, Acute 08/07/20 10:25:00 EDT, 07/10/20 10:25:00 EDT, Route toPharmacy Electronically, [facility]/pharmacy #1026, Parti... Start Date: 07/10/20 Stop Date: 08/07/20 Status: Ordered Pen [place], 32 G x 4 mm BD Ultra [...] the same time every day given by clinical pharmacy technician , Dr Berkowitz, # 60 each, 0 Refills, Maintenance, 11/20/19 13:03:00 EDT, Powder Start Date: 11/20/19 Status: Ordered Tresiba FlexTouch 200 units/mL subcutaneous solution See Instructions, Inject 55 units daily at 9pm, E11.65. titrate accordingly, # 45 mL, 6 Refills, Maintenance, 01/21/20 14:30:00 EDT, [facility]/pharmacy #[id number], 167, cm, 01/13/20 8:54:00 EDT, Height, 78.8, kg, 01/01/20 3:41:00 EDT, Dry Weight Start Date: 01/21/20 Status: Ordered Ventolin HFA 108 mcg/inh inhalation aerosol with adapter 2 puffs, Inhalation, 4 times a day, PRN Wheezing/Shortness of Breath, dispense when patient requestit, # 18 Gm, 5 Refills, Maintenance, 01/22/20 9:19:00 EDT, [facility]/pharmacy #[id number], 167, cm, 01/13/20 8:54:00 EDT, Height, 78.8, kg, 01/01/20 3:41:00 EDT, D... Start Date: 01/22/20 Status: Ordered Vitamin D3 1000 intl units oral tablet 1 tablet = 1,000 International_Units, By Mouth, Daily, # 90 tablet, 1 Refills, Maintenance, 04/15/20 12:22:00 EST, [facility]/pharmacy #[id number], 167, cm, 04/13/20 10:16:00 EST, Height, 78.8, kg, 01/01/20 3:41:00 EDT, Dry Weight Start Date: 04/15/20 Status: Ordered [place] Reusable Bed Pad 34 x 36 [place] Reusable Bed Pad 34 x 36 , [...] apnea)(Confirmed) Active Osteopenia(Confirmed) 18, 19 11/16/12 Active *[id number] Care Partn igor More(Confirmed) Active Peripheral venous [...] 2 peroneal veins diagnosed on Dec 20 [facility] 6insulin dependent 7Per ECHO 05/24/1718 Grade [...] 11left mild sensorineural hearing loss by [facility] Hearing Evaluation on 12/29/11 [...] lower parathyroidectomy. 06/16/08 SURGEON: Danny Marie M.D. COMMUNICATION ENGINEER: Naima Bowling M.D. 21b/l submassive PE diagnosed on Dec 20 in [facility] 22TTE 12/22/15 in [facility]: RV dilatation, RVSP 46 23Per ECHO 05/24/17 Trace mitral regurgitation , trace TC regurgitation w no significant valve pathology 24meg colo July 2009 exc for 2 hyperplastic polyps 25Colonoscopy 2004 at [facility] [place] per letter of Dr Amor Dobbins Social History Social History Type Response Smoking Status Never (less than 100 in lifetime) entered on: 04/29/20 Sex
--- OUTSIDE RECORDS SUMMARY | 2023-10-23 09:43 | XMS_ITS | Continuity of Care Document ---
Author Organization [facility] Address [address] [place] [address]- Care Team Providers Care Dental Floss Packer Name Role Phone Gayathri GARZA, Florinda Primary Care Physician [facility] Date[facility]s): 04[facility]20 - 05/15/20 [facility] [address] [place] [address] [place] [address]- Allergies, Adverse Reactions, Alerts Substance Reaction Severity [...] or fever, (not to exceed 2000 mg/day) azerbaijani, # 100 tablet, 5 Refills, Maintenance, 01/22/20 [...] 01/21/21 19:13:00 EDT, 01/27/20 19:13:00 EDT, Tablet, [facility]/pharmacy #[id number], 167, cm, 01/13/20 8:54:00 EDT, Height, 78.8, kg, 01/01/20 3:41:00 EDT, Dry... Start Date: 01/27/20 Stop Date: 01/21/21 Status: Ordered capsaicin 0.025% topical cream 1 application, Topically, 3 times a day, # 90 Gm, 11 Refills, Maintenance, 02/10/20 11:22:00 EST, Cream, [facility]/pharmacy #1026, 1 application Topically 3 [...] 04/29/20 13:04:00 EST, Route to Pharmacy Electronically, [facility]/pharmacy #1026,167, cm, 04/29/20 9:24:00 EST, Height, 82, kg, ... Start Date: 04/29/20 Status: Ordered famotidine 40 mg oral tablet 1 tablet = 40 mg, By Mouth, Daily at bedtime, If 40 mg tablet is not available, can change to 20 mgtablet 2 tablet at bedtime, # 30 tablet, 2 Refills, Maintenance, 04/04/20 16:07:00 EST, Tablet, [facility]/pharmacy #[id number], 167, cm, 02/24/20 17:04:00 EST, Hei... Start Date: 04/04/20 Status: Ordered ferrous sulfate 325 mg oral tablet 1 tablet = 325 mg, By Mouth, Daily, May take with food to minimize abdominal discomfort. Do not take with milk. Take preferrably with juice., # 90 tablet, 2 Refills, Maintenance, 01/22/20 9:38:00 EDT, [facility]/pharmacy #1026, 167, [...] capsule, 4 Refills, Maintenance, 01/22/20 9:39:00 EDT, [facility]/pharmacy #1026, 167, cm, 01/13/20 8:54:00 EDT, Height, 78.8, kg, 01/01/20 3:41:00 EDT, Dry Weight Start Date: 01/22/20 Stop Date: 06/20/20 Status: Ordered ketotifen 0.025% ophthalmic solution 1 drops, Eyes, Both, Every 12 hours, PRN as needed for eye allergy, # 7.5 mL, 11 Refills, Maintenance, 01/27/20 19:13:00 EDT, [facility]/pharmacy #1026, 1 drops Eyes, Both [...] 01/22/20 9:41:00 EDT, Route to Pharmacy Electronically, [facility]/pharmacy #1026, 167, cm, 01/13/20 8:54:00 EDT, Height, 78... Start Date: 01/22/20 Status: Ordered NovoLOG FlexPen 100 units/mL subcutaneous solution See Instructions, Inject up to 26 untis via Insulin sliding scale 3x a day w/meals,MAX daily dose 78 units, E11.65, # 45 mL, 6 Refills, Maintenance, 01/21/20 14:30:00 EDT, [facility]/pharmacy #1026, 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 Start Date: 01/21/20 Status: Ordered Zpb-ddk-ogsfu medical-grade oxford diabetic shoes, depth or hightop Mjk-mjm-xzyay medical-grade oxford diabetic shoes, depth or hightop, [...] EST, 05/15/20 10:25:00 EST, Route toPharmacy Electronically, [facility]/pharmacy #1026, Parti... Start Date: 05/15/20 [...] 07/10/20 Stop Date: 08/07/20 Status: Ordered Pen [place], 32 G x 4 mm BD Ultra [...] 05/01/20 9:28:00 EST, Route to Pharmacy Electronically, [facility]/pharmacy #1026, 167,... Start Date: 05/01/20 Status: Ordered TENS electrode pads TENS electrode pads, See Instructions, # 1 box, Refills 5, Tot. Refills 5, Maintenance, use as directed for back pain Dx LBP M54.9 1 box of 4, 12/06/16 14:59:01, Compound Start Date: 12/06/16 Status: Ordered Trelegy Ellipta inhalation powder 1 puffs, Inhalation, Daily, at the same time every day given by software maintenance engineer , Dr Berkowitz, # 60 each, [...] Dry Weight Start Date: 04/15/20 Status: Ordered [place] Reusable Bed Pad 34 x 36 [place] Reusable Bed Pad 34 x 36 , [...] abnormal(Confirmed) 11 12/29/11 Active Hepatitis C(Confirmed) Active longterm current use of opi ate analgesic-LBP(Confirmed) 12 [...] apnea)(Confirmed) Active Osteopenia(Confirmed) 18, 19 11/16/12 Active *[id number] Care Partn igor More(Confirmed) Active Peripheral venous [...] peroneal veins diagnosed on Dec 20 [facility] 6insulin dependent 7Per ECHO 05/24/1718 [...] lower parathyroidectomy. 06/16/08 SURGEON: Danny Marie M.D. TONNAGE COMPILATION CLERK: Naima Bowling M.D. 21b/l submassive PE diagnosed on Dec 20 in [facility] 22TTE 12/22/15 in [facility]: RV dilatation, RVSP 46 23Per ECHO 05/24/17 Trace mitral regurgitation , trace TC regurgitation w no significant valve pathology 24meg colo July 2009 exc for 2 hyperplastic polyps 25Colonoscopy 2004 at [facility] [place] per letter of Dr Amor Dobbins Social History Social History Type Response Smoking Status Never (less than 100 in lifetime) entered on: 04/29/20 Sex
--- OUTSIDE RECORDS SUMMARY | 2023-10-23 09:43 | XMS_ITS | Continuity of Care Document ---
Author Organization [facility] Address [address] [place] [address]- Care Team Providers Care Mica Patcher Name Role Phone Gayathri GARZA, Florinda Primary Care Physician [facility]): 06/02/20 - 07/02/20 [facility] [place] [address] [place] [address]- Allergies, Adverse Reactions, Alerts Substance Reaction Severity [...] or fever, (not to exceed 2000 mg/day) azeri, # 100 tablet, 5 Refills, Maintenance, 01/22/20 9:18:00 EDT, [facility]/pharmacy #1026, 167, cm, 01/13/20 [...] 06/12/20 8:36:00 EST, Route to Pharmacy Electronically, [facility]/pharmacy #1026, 160, cm, 06/04/20 11:29:00 EST, Height, 80.6, kg, 06/03/20 19:00:00 EST, Dry Weight Start Date: 06/12/20 Status: Ordered ammonium lactate 12% topical cream 1 applicator, Topically, 2 times a day, # 280 Gm, 11 Refills, Maintenance, 01/27/20 19:13:00 EDT, [facility]/pharmacy #1026, 1 applicator Topically [...] 3 Refills, Soft Stop, 06/26/20 7:30:00 EDT, [facility]/pharmacy #1026, Partial fill upon patient request if the prescription is for a schedule II op... Start Date: 06/26/20 Status: Ordered calcium (as citrate)-vitamin D 315 mg-250 intl units oral tablet 2 tablet, By Mouth, 2 times a day, for 30 days, calcium citrate, # 120 tablet, 11 Refills, Hard Stop 01/21/21 19:13:00 EDT, 01/27/20 19:13:00 EDT, Tablet, [facility]/pharmacy #1026, 167, cm, 01/13/20 8:54:00 EDT, Height, 78.8, kg, 01/01/20 3:41:00 EDT, Dry... Start Date: 01/27/20 Stop Date: 01/21/21 Status: Ordered capsaicin 0.025% topical cream 1 application, Topically, 3 times a day, # 90 Gm, 11 Refills, Maintenance, 02/10/20 11:22:00 EST, Cream, [facility]/pharmacy #1026, 1 application Topically [...] Refills, Maintenance, 01/27/20 19:13:00 EDT, EC Capsule, [facility]/pharmacy #1026, 167, cm, 01/13/20 [...] tablet, 2 Refills, Maintenance, 01/22/20 9:38:00 EDT, [facility]/pharmacy #1026, 167, cm, 01/13/20 [...] capsule, 3 Refills, Maintenance, 06/30/20 14:54:00 EDT, [facility]/pharmacy #1026, 160, cm, 06/12/20 9:01:00 EST, Height, 80.6, kg, 06/03/20 19:00:00 EST, Dry Weight Start Date: 06/30/20 Stop Date: 06/25/21 Status: Ordered ketotifen 0.025% ophthalmic solution 1 drops, Eyes, Both, Every 12 hours, PRN as needed for eye allergy, # 7.5 mL, 11 Refills, Maintenance, 01/27/20 19:13:00 EDT, [facility]/pharmacy #1026, 1 drops Eyes, [...] 06/24/20 9:08:00 EDT, Route to Pharmacy Electronically, [facility]/pharmacy #1026, 160, cm, 06/12/20 9:01:00 EST, Height, 80... Start Date: 06/24/20 Status: Ordered NovoLOG FlexPen 100 units/mL subcutaneous solution See Instructions, Inject up to 26 untis via Insulin sliding scale 3x a day w/meals,MAX daily dose 78 units, E11.65, # 45 mL, 6 Refills, Maintenance, 01/21/20 14:30:00 EDT, [facility]/pharmacy #1026, 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 Start Date: 01/21/20 Status: Ordered Tgr-zns-nwdeu medical-grade oxford diabetic shoes, depth or hightop Gzu-svp-vwioh medical-grade oxford diabetic shoes, depth or hightop, [...] EDT, 06/12/20 10:25:00 EST, Route toPharmacy Electronically, [facility]/pharmacy #1026, Parti... Start Date: 06/12/20 Stop Date: 07/10/20 Status: Ordered oxyCODONE 5 mg oral tablet 5 mg, 1, tablet, By Mouth, Every 4 hours, for 28 days, PRN pain dispense not earlier than 07/10/20, #168 tablet, Refills 0, Tot. Refills 0, Acute 08/07/20 10:25:00 EDT, 07/10/20 10:25:00 EDT, Route toPharmacy Electronically, [facility]/pharmacy #1026, Parti... Start Date: 07/10/20 Stop Date: 08/07/20 Status: Ordered Pen [place], 32 G x 4 mm BD Ultra [...] 527 Gm,11 Refills, Maintenance, 01/27/20 19:13:00 EDT, [facility]/pharmacy #1026, 17- 34 Gm [...] 02/10/20 11:22:00 EST, Route to Pharmacy Electronically, [facility]/pharmacy #1026 Tablet, 167, cm, [...] 9:28:00 EST, Route to Pharmacy Electronically, [facility]/pharmacy #1026, 167,... Start Date: 05/01/20 Status: Ordered TENS electrode pads TENS electrode pads, See Instructions, # 1 box, Refills 5, Tot. Refills 5, Maintenance, use as directed for back pain Dx LBP M54.9 1 box of 4, 12/06/16 14:59:01, Compound Start Date: 12/06/16 Status: Ordered Trelegy Ellipta inhalation powder 1 puffs, Inhalation, Daily, at the same time every day given by manager wellness , Dr Berkowitz, # 60 each, 0 Refills, Maintenance, 11/20/19 13:03:00 EDT, Powder Start Date: 11/20/19 Status: Ordered Tresiba FlexTouch 200 units/mL subcutaneous solution See Instructions, Inject 55 units daily at 9pm, E11.65. titrate accordingly, # 45 mL, 6 Refills, Maintenance, 01/21/20 14:30:00 EDT, [facility]/pharmacy #1026, 167, cm, 01/13/20 8:54:00 EDT, Height, 78.8, kg, 01/01/20 3:41:00 EDT, Dry Weight Start Date: 01/21/20 Status: Ordered Ventolin HFA 108 mcg/inh inhalation aerosol with adapter 2 puffs, Inhalation, 4 times a day, PRN Wheezing/Shortness of Breath, dispense when patient requestit, # 18 Gm, 5 Refills, Maintenance, 06/12/20 8:41:00 EST, [facility]/pharmacy #1026, 160, cm, 06/04/20 11:29:00 EST, [...] Date: 06/12/20 Stop Date: 09/04/20 Status: Ordered [place] Reusable Bed Pad 34 x 36 [place] Reusable Bed Pad 34 x 36 , [...] 11 12/29/11 Active 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 Hearing Evaluation on 12/29/11 12Narcotic contract [...] lower parathyroidectomy. 06/16/08 SURGEON: Danny Marie M.D. SINTER PRESS OPERATOR: Naima Bowling M.D. 21b/l submassive PE diagnosed on Dec 20 in [facility] TTE 12/22/15 in [facility]: RV dilatation, RVSP 46 23Per ECHO 05/24/17 Trace mitral regurgitation , trace TC regurgitation w no significant valve pathology 24meg colo July 2009 exc for 2 hyperplastic polyps 25Colonoscopy 2004 at [facility] at [place] per letter of Dr Amor Dobbins Social History Social History Type Response Smoking Status Never (less than 100 in lifetime) entered on: 06/12/20 Sex
--- OUTSIDE RECORDS SUMMARY | 2023-10-23 09:43 | XMS_ITS | Continuity of Care Document ---
Author Organization [facility] Address [address] [place] [address]- Care Team Providers Care Director Medical Writing Name Role Phone Massimo Figueroa Primary Care Physician [facility]): 02[facility]18[facility]23 - 03/20/23 [facility] [address] [place], [place] [address] Allergies, Adverse Reactions, Alerts Substance [...] virus vaccine, inactivated 6 05/06/04 Gi zeny [id number] 12y+ bivalent booster vax 05/25/22 Given zoster vaccine, inactivated 12/08/21 Given zoster vaccine, inactivated 09/15/21 Given SARS-CoV-2 mRNA ([id number]) vax 09/15/21 Given SARS-CoV-2 (COVID-19) mRNA BNT-162b2 [...] Maintenance, 05/25/22 12:08:00 EST, ER Tablet, [id number], Discontinue Motrin, 158, cm, 05/25/22 11:12:00... Start [...] Gm, 11 Refills, Maintenance, 07/21/21 12:43:00 EDT, [facility]/pharmacy #1026, 1 applicator Topically 2 times a day, 160, cm, 07/21/21 10:22:00 EDT, Height, 80.6, kg, 06/03/20 19:00:00 EST, Dry Weight Start Date: 07/21/21 Status: Ordered Baqsimi Two Pack 3 mg nasal powder = 3 mg, Naris, Right, Once, Please use for a low blood sugar emergency, may repeat in 15 minutes, #1 each, 3 Refills, Soft Stop, 03/09/22 11:35:00 EST, [facility]/pharmacy #0838, 160, cm, 03/09/22 10:43:00EST, Height, 78, kg, 01/14/22 19:37:00 EDT, Dry W... Start Date: 03/09/22 Status: Ordered Biotene Moisturizing Mouth oral spray See Instructions, [place]arden directly into mouth; spray is safe to [...] [facility]M. [facility], # [facility] tablet, 1 Refills, Maintenance, 08/05/22 12:49:00 EDT, [id number], 158, cm, 07/12/22 11:54:00 EDT, Height, 76, kg, 05/07/22 6:04:00 ES... Start Date: 08/05/22 Status: Ordered capsaicin 0.025% topical cream 1 application, Topically, 3 times a day, # 35 Gm, 11 Refills, Maintenance, 07/21/21 12:26:00 EDT, Cream, [facility]/pharmacy #1026, 1 application Topically 3 [...] 12/06/21 15:04:00 EDT, Tablet, [facility], Partial fill upon [...] tablet, 3 Refills, Maintenance, 07/12/21 18:53:00 EDT, Tablet,[facility]/pharmacy #1026, Discontinue 30- day supply presc... Start Date: 07/12/21 Stop Date: 07/07/22 Status: Ordered ferrous sulfate 325 mg oral tablet 1 tablet = 325 mg, By Mouth, Daily, May take with food to minimize abdominal discomfort. Do not take with milk. Take preferrably with juice., # 90 tablet, 3 Refills, Maintenance, 09/15/21 8:56:00 EDT, [facility]/pharmacy #1026, 160, cm, 09/15/21 8:15:00 [...] Refills, Maintenance, 07/08/22 9:47:00 EDT, [id number], 158, cm, 06/16/22 11:27:00 EST, Height, 76, [...] 90 tablet, 3 Refills, 11/30/22 11:57:00 EST, [facility]/pharmacy #0838, 1 tablet By Mouth [...] 03/09/22 11:37:00 EST, Route to Pharmacy Electronically, [facility]/pharmacy #0838, 160, cm, 03/09/22 10:43:00 [...] EST, [facility] 160, cm, 03/09/22 10:43:00 [...] # 15... Start Date: 11/24/22 Status: Ordered Gap-ipi-rpobn medical-grade oxford diabetic shoes, depth or hightop Cfy-fcj-heqqb medical-grade oxford diabetic shoes, depth or hightop, [...] DOLOR Start Date: 11/24/22 Status: Ordered Pen [place], 32 G x 4 mm BD Ultra [...] 4 Refills, Maintenance, 11/24/22 9:55:00 EDT, Tablet, [facility]/pharmacy #0838, Partial fill upon patient [...] 15 mL, 3 Refills, Maintenance, 02/24/2312:11:00 EST, [facility]/pharmacy #0838, Partial fill upon patient [...] Date: 03/09/22 Stop Date: 06/01/22 Status: Ordered [place] Reusable Bed Pad 34 x 36 [place] Reusable Bed Pad 34 x 36 , [...] Confirmed 12/29/11 Active Hepatitis C Confirmed Active care home current use of opiate analgesic-LBP 12 [...] Osteopenia 18, 19, 20 Confirmed 11/16/12 Active *[id number] 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 06/16/08 SURGEON: Danny Marie M.D. TRASH MAN: Naima Bowling M.D. 22b/l submassive PE diagnosed on Dec 20 in [facility] 23TTE 12/22/15 in [facility]: RV dilatation, RVSP 46 24Per ECHO 05/24/17 Trace mitral regurgitation , trace TC regurgitation w no significant valve pathology 25meg colo July 2009 exc for 2 hyperplastic polyps 26Colonoscopy 2004 at [facility] [place] per letter of Dr Amor Dobbins Social History Social History Type Response Smoking Status Never (less than 100 in lifetime) entered on: 10/22/20 Sex Patient Care team information Care Team Personnel Name: Massimo Figueroa Position: [facility] Outreach Member Role: PCP Address: Address: [address] [place] [address] Name: Diamond Weiss RN Position: S RN Member Role: Primary Care Nurse Name: Tiara Cavazos RN Position: [facility] OB RN Member Role: Primary Care Nurse Name: Shreya Boss RN Position: [facility] RN Member Role: Primary Care Nurse Name: Dhruv Khan RN Position: [facility] RN Member Role: Primary Care Nurse Name: Virginia Benson RN Position: [facility] SN RN Member Role: Primary Care Nurse Name: Jaylin Hernandez RN Position: [facility] Onco RN Member Role: Primary Care Nurse Name: Glen Cota MD Position: [facility] Renal MD Member Role: Lifetime Consulting Physician Address: Address: [address] [place] [address] [facility] [address] Name: Carole Toro LPN Position: [facility] RN Member Role: Primary Care Nurse Care Team Related Persons Name: JOSE ELIAS TODD Address: [place] [address] Name: JOSE ELIAS KIRKLAND Address: home [address] [place] [id number] Name: LEONIE SCHRADER Address: [place] [address]
--- OUTSIDE RECORDS SUMMARY | 2023-10-23 09:43 | XMS_ITS | Continuity of Care Document ---
Author Organization [facility] Address [address] [place] [address]- Care Team Providers Care Health And Human Performance Professor Name Role Phone Florinda Trinh MD Primary Care Physician Encounter [facility] Date(s): 04/24/19 - 05/30/[address] [address]- [facility] Attending Physician: Florinda Trinh MD Admitting Physician: [...] or fever, (not to exceed 2000 mg/day) marshallese, # 100 tablet, 11 Refills, Maintenance, 01/16/19 [...] Status: Ordered BD UF SHANNAN PEN NEEDLE [id number] BD UF SHANNAN PEN NEEDLE [id number], 0 Refills, Maintenance, 07/26/18 13:34:55 EDT Start [...] Refills, Maintenance, 12/18/19 9:10:00 EST, EC Capsule, [facility], 159, cm, 03/20/19 14:59:00 EST, Height, 88.3, kg, 12/13/18 10:17:00 EDT, Dry Weight Start Date: 03/27/19 Status: Ordered docusate sodium 100 mg oral tablet 1 tablet = 100 mg, By Mouth, 2 times a day, # 60 tablet, 11 Refills, Maintenance, 05/20/19 12:31:00EST, [facility], 159, cm, 05/20/19 12:19:00 EST, Height, 88.1, kg, 04/25/19 16:02:00 EST, Dry Weight Start Date: 05/20/19 Status: Ordered enalapril 10 mg oral tablet 10 mg, 1, tablet, By Mouth, Daily, 90 days, # 90 tablet, Refills 3, Tot. Refills 3, Maintenance, 09/19/18 15:15:30 EDT, Route to Pharmacy Electronically, [id number], [facility] Start Date: 09/19/18 Status: Ordered famotidine 40 mg oral tablet 1 tablet = 40 mg, By Mouth, Daily at bedtime, If 40 mg tablet is not available, can change to 20 mgtablet 2 tablet at bedtime, # 30 tablet, 5 Refills, Maintenance, 04/17/19 9:17:00 EST, Tablet, [facility], 159, cm, 04/17/19 8:24:0... Start Date: [...] 01/16/19 8:53:23 EDT, Route to Pharmacy Electronically, [id number], [facility] [place]... Start Date: 01/16/19 [...] EDT, DxE11.65 Start Date: 07/20/18 Status: Ordered Wwm-von-ldfmx medical-grade oxford diabetic shoes, depth or hightop Vqc-txd-rdvfs medical-grade oxford diabetic shoes, depth or hightop, [...] 05/10/19 12:47:00 EST, Route to Pharmacy Electronically, [facility], [place]... Start Date: 05/10/19 Stop Date: 06/07/19 Status: Ordered oxyCODONE 5 mg oral tablet 5 mg, 1, tablet, By Mouth, Every 4 hours, for 28 days, dispense not earlier than 06/07/19, # 137 tablet, Refills 0, Tot. Refills 0, Acute 07/05/19 12:47:00 EDT, 06/07/19 12:47:00 EST, Route to Pharmacy Electronically, [facility], [place]... Start Date: 06/07/19 Stop Date: 07/05/19 Status: Ordered oxyCODONE 5 mg oral tablet 5 mg, 1, tablet, By Mouth, Every 4 hours, for 28 days, dispense not earlier than 07/05/19, # 137 tablet, Refills 0, Tot. Refills 0, Acute 08/02/19 12:47:00 EDT, 07/05/19 12:47:00 EDT, Route to Pharmacy Electronically, [facility], [place]... Start Date: 07/05/19 Stop Date: 08/02/19 Status: Ordered Pen [place], 32 G x 4 mm BD Ultra [...] 05/20/19 12:31:00 EST, Route to Pharmacy Electronically, [facility] Tablet, 159, cm, 05/20/19 12:19:00 ES... Start [...] Tot. Refills 5, Maintenance, 05/22/19 20:38:00 EST, [facility] Electron[facility], [facility] [place]... 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(Confirmed) 10 Active Hypercholesterolemia(Confirmed) Active Hypertension(Confirmed) Active Hysterectomy(Confirmed) Active Incontinence of urine(Confirmed) Active Iron deficiency anemia(Confirmed) Active Left ventricular hypertrophy(Confirmed) 11 Active Memory impairment(Confirmed) Active Mitral regurgitation(Confirmed) 12 05/24/17 Active Nephrolithiasis(Confirmed) 13, 14, 15 06/11/02 Active Obesity(Confirmed) Active JENNIFER (obstructive sleep apnea)(Confirmed) Active Osteopenia(Confirmed) 16, 17 11/16/12 Active *[id number]-[facility] Partn david [place](Confirmed) Active Peripheral venous [...] diagnosed on Dec 20 [facility] 5insulin dependent 6Per ECHO 05/24/1718 Grade I, mild diastolic dysfunction with impaired LV relaxation, which may be normal for the patient's age. 7EGD on 06/24/16 by GI, Dr Damien caballero gastritis and esophageal varices grade 1 8EGD on 06/24/16 by GI, Dr Damien Dobbins w gastritis and esophageal varices grade 1 9left mild sensorineural hearing loss by [facility] Hearing Evaluation on 12/29/11 10Narcotic [...] lower parathyroidectomy. 06/16/08 SURGEON: Danny Marie M.D. X RAY TECH: Naima Bowling M.D. 19b/l submassive PE diagnosed on Dec 20 in [facility] TTE 12/22/15 in [facility]: RV dilatation, RVSP 46 21Per ECHO 05/24/17 Trace mitral regurgitation , trace TC regurgitation w no significant valve pathology meg colo July 2009 exc for 2 hyperplastic polyps 23Colonoscopy 2004 at [facility] [place] per letter of Dr Amor Dobbins Social History Social History Type Response Smoking Status Never (less than 100 in lifetime) entered on: 04/17/19 Sex
--- OUTSIDE RECORDS SUMMARY | 2023-10-23 09:43 | XMS_ITS | Continuity of Care Document ---
Author Organization [facility] Address [address] [place] [address]- Care Team Providers Care Senior Property Manager Name Role Phone Gayathri GARZA, Florinda Primary Care Physician Encounter [facility] Date(s): 10/06/20 - 11/05/[address] [address] Attending Physician: Yaya Patino Admitting Physician: [...] or fever, (not to exceed 2000 mg/day) burkinan, # 100 tablet, 11 Refills, Maintenance, 08/14/20 [...] 19:13:00 EDT, [facility]/pharmacy #[id number], 1 applicator [...] Refills, Soft Stop, 06/26/20 7:30:00 EDT, [facility]/pharmacy #[id number], Partial fill upon patient request [...] 0 Refills, Maintenance, 10/22/20 10:11:00 EDT, Tablet, [facility]/pharmacy #[id number], 160, cm, 10/22/20 9:15:00 EDT, [...] 78.8, kg,... Start Date: 01/21/20 Status: Ordered Hgz-yco-qpjlj medical-grade oxford diabetic shoes, depth or hightop Fmd-oht-jjbto medical-grade oxford diabetic shoes, depth or hightop, [...] 10:25:00 EDT, Route to Pharmacy Electronically, [facility]/pharmacy #[id number], Part... Start Date: 10/30/20 Stop Date: 11/27/20 Status: Ordered oxyCODONE 5 mg oral tablet 5 mg, 1, tablet, By Mouth, Every 4 hours, for 28 days, PRN pain dispense not earlier than 11/27/20, # 168 tablet, Refills 0, Tot. Refills 0, Acute 12/25/20 10:25:00 EDT, 11/27/20 10:25:00 EDT, Route to Pharmacy Electronically, [facility]/pharmacy #[id number], Part... Start Date: 11/27/20 Stop Date: 12/25/20 Status: Ordered oxyCODONE 5 mg oral tablet 5 mg, 1, tablet, By Mouth, Every 4 hours, for 28 days, PRN pain dispense not earlier than 12/25/20, # 168 tablet, Refills 0, Tot. Refills 0, Acute 01/22/21 10:25:00 EDT, 12/25/20 10:25:00 EDT, Route to Pharmacy Electronically, [facility]/pharmacy #[id number], Part... Start Date: 12/25/20 Stop Date: 01/22/21 Status: Ordered oxyCODONE 5 mg oral tablet 5 mg, 1, tablet, By Mouth, Every 4 hours, for 28 days, PRN pain dispense not earlier than 10/02/20, # 168 tablet, Refills 0, Tot. Refills 0, Acute 11/27/20 10:25:00 EDT, 10/30/20 10:25:00 EDT, Route to Pharmacy Electronically, [facility]/pharmacy #[id number], Part... Start Date: 10/30/20 Stop Date: 11/27/20 Status: Ordered Pen [place], 32 G x 4 mm BD Ultra [...] Maintenance, 10/15/20 16:28:00 EDT, [id number]... Start Date: 10/15/20 Status: Ordered TENS electrode pads TENS electrode pads, See Instructions, # 1 box, Refills 5, Tot. 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 06/16/08 SURGEON: Danny Marie M.D. OBSTETRICS TEACHER: Naima Bowling M.D. 21b/l submassive PE diagnosed on Dec 20 in [facility] 22TTE 12/22/15 in [facility]: RV dilatation, RVSP 46 23Per ECHO 05/24/17 Trace mitral regurgitation , trace TC regurgitation w no significant valve pathology 24meg colo July 2009 exc for 2 hyperplastic polyps 25Colonoscopy 2004 at [facility] [place] per letter of Dr Amor Dobbins Social History Social History Type Response Smoking Status Never (less than 100 in lifetime) entered on: 10/22/20 Sex
--- OUTSIDE RECORDS SUMMARY | 2023-10-23 09:43 | XMS_ITS | Continuity of Care Document ---
Author Organization [facility] Address Unknown Care Team Providers Care Tire Center Supervisor Name Role Phone Gayathri GARZA, Florinda Primary Care Physician Encounter [facility] Date(s): 11/27/20 - 12/27/20 [facility] Allergies, Adverse Reactions, Alerts Substance Reaction [...] or fever, (not to exceed 2000 mg/day) ghanaian, # 100 tablet, 11 Refills, Maintenance, 08/14/20 10:13:00 EDT, [facility]/pharmacy #[id number], 160, cm, 08/14/20 9:34:00 EDT, Height, [...] 78.8, kg,... Start Date: 01/21/20 Status: Ordered Lzp-wou-tehgw medical-grade oxford diabetic shoes, depth or hightop Epa-igy-lbsww medical-grade [employer] diabetic shoes, depth or hightop, See Instructions, [...] 12/25/20 Stop Date: 01/22/21 Status: Ordered Pen [place], 32 G x 4 mm BD Ultra [...] Gm,11 Refills, Maintenance, 01/27/20 19:13:00 EDT, [facility]/pharmacy #[id number], 17- 34 Gm By Mouth Daily,PRN:asneeded [...] HDZ, # 30 tablet, 5 Refills, Maintenance, [facility] STORE [id number], 160, cm, 10/22/20 9:15:00 EDT, Height, 80.6, [...] Maintenance, 10/15/20 16:28:00 EDT, [id number]... Start Date: 10/15/20 Status: Ordered TENS electrode pads TENS electrode pads, See Instructions, # 1 box, Refills 5, Tot. Refills 5, Maintenance, use as directed for back pain Dx LBP M54.9 1 box of 4, 12/06/16 14:59:01, Compound Start Date: 12/06/16 Status: Ordered Trelegy Ellipta inhalation powder 1 puffs, Inhalation, Daily, at the same time every day given by acquisitions analyst , Dr Berkowitz, # 60 each, 0 [...] Date: 09/22/20 Stop Date: 12/15/20 Status: Ordered [place] Reusable Bed Pad 34 x 36 [place] Reusable Bed Pad 34 x 36 , [...] 11 Refills, Maintenance, 10/22/20 10:19:00 EDT, Tablet, [facility]/pharmacy #[id number], Partial fill upon patient request if the prescription is for a schedule II opioid drug., 1 tablet B... 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 06/16/08 SURGEON: Danny Marie M.D. PERSONNEL MANAGER: Naima Bowling M.D. 21b/l submassive PE diagnosed on Dec 20 in [facility] 22TTE 12/22/15 in [facility]: RV dilatation, RVSP 46 23Per ECHO 05/24/17 Trace mitral regurgitation , trace TC regurgitation w no significant valve pathology 24meg colo July 2009 exc for 2 hyperplastic polyps 25Colonoscopy 2004 at [facility] [place] per letter of Dr Amor Dobbins Social History Social History Type Response Smoking Status Never (less than 100 in lifetime) entered on: 10/22/20 Sex
--- OUTSIDE RECORDS SUMMARY | 2023-10-23 09:43 | XMS_ITS | Continuity of Care Document ---
Author Organization [facility] Address [address] [place] [address]- Care Team Providers Care Healthcare Receptionist Name Role Phone Gayathri GARZA, Florinda Primary Care Physician [facility] [facility] Date(s): 06/02/20 - 06/04/20 [facility] [address] [place] [id number] Encounter Diagnosis UTI symptoms(Final) - 06/02/20 Urinary tract infection(Final) - 06/02/20 Hyperkalemia(Final) - 06/02/20 Pyelonephritis, acute(Final) - 06/02/20 Chest pain(Final) - 06/02/20 Nephrolithiasis(Final) - 06/02/20 Discharge Disposition: A-D/C Home Attending Physician: Marc Sidhu MD Admitting Physician: Cuba Thomas MD Referring Physician: Not on Staff, Referring [...] given by ELLIOTT HEWITT. 5Admin Note: MELISSA CRAFT RN 6Admin Note: administered by melissa craft 7Admin Note: ADMINISTERED BY RYoana 8Result Comment: [...] or fever, (not to exceed 2000 mg/day) armenian, # 100 tablet, 5 Refills, Maintenance, 01/22/20 9:18:00 EDT, [facility]/pharmacy #[id number], 167, cm, 01/13/20 8:54:00 EDT, [...] 01/21/21 19:13:00 EDT, 01/27/20 19:13:00 EDT, Tablet, [facility]/pharmacy #[id number], 167, cm, 01/13/20 8:54:00 EDT, Height, 78.8, kg, 01/01/20 3:41:00 EDT, Dry... Start Date: 01/27/20 Stop Date: 01/21/21 Status: Ordered capsaicin 0.025% topical cream 1 application, Topically, 3 times a day, # 90 Gm, 11 Refills, Maintenance, 02/10/20 11:22:00 EST, Cream, [facility]/pharmacy #[id number], 1 application Topically 3 times [...] Refills, Maintenance, 01/27/20 19:13:00 EDT, EC Capsule, [facility]/pharmacy #1026, 167, cm, 01/13/20 8:54:00 EDT, [...] 2 Refills, Maintenance, 04/04/20 16:07:00 EST, Tablet, [facility]/pharmacy #1026, 167, cm, 02/24/20 17:04:00 EST, Hei... Start Date: 04/04/20 Status: Ordered ferrous sulfate 325 mg oral tablet 1 tablet = 325 mg, By Mouth, Daily, May take with food to minimize abdominal discomfort. Do not take with milk. Take preferrably with juice., # 90 tablet, 2 Refills, Maintenance, 01/22/20 9:38:00 EDT, [facility]/pharmacy #[id number], 167, cm, 01/13/20 8:54:00 EDT,... [...] 01/22/20 9:41:00 EDT, Route to Pharmacy Electronically, [facility]/pharmacy #[id number], 167, cm, 01/13/20 8:54:00 EDT, [...] 78.8, kg,... Start Date: 01/21/20 Status: Ordered Ope-ygj-nokdv medical-grade oxford diabetic shoes, depth or hightop Rfe-lcz-otipp medical-grade oxford diabetic shoes, depth or hightop, See Instructions, # 1 pair, Refills 0, Tot. 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 Start Date: 09/19/18 Status: Ordered oxyCODONE 5 mg oral tablet 5 mg, Tablet, By Mouth, 06/04/20 9:00:00 EST Start Date: 06/04/20 Stop Date: 06/04/20 Status: Completed oxyCODONE 5 mg oral tablet 5 mg, [...] 07/10/20 Stop Date: 08/07/20 Status: Ordered Pen [place], 32 G x 4 mm BD Ultra [...] 527 Gm,11 Refills, Maintenance, 01/27/20 19:13:00 EDT, [facility]/pharmacy #1026, 17- 34 Gm By Mouth [...] 02/10/20 11:22:00 EST, Route to Pharmacy Electronically, [facility]/pharmacy #1026 Tablet, 167, cm, 01/13/20 8:5... [...] 05/01/20 9:28:00 EST, Route to Pharmacy Electronically, [facility]/pharmacy #[id number], 167,... Start Date: 05/01/20 Status: [...] time every day given by human resources compliance manager , Dr Berkowitz, # 60 each, 0 Refills, Maintenance, 11/20/19 13:03:00 EDT, Powder Start Date: 11/20/19 Status: Ordered Tresiba FlexTouch 200 units/mL subcutaneous solution See Instructions, Inject 55 units daily at 9pm, E11.65. 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 06/16/08 SURGEON: Danny Marie M.D. WOOD MILLER: Naima Bowling M.D. 21b/l submassive PE diagnosed on Dec 20 in [facility] TTE 12/22/15 in [facility]: RV dilatation, RVSP 46 23Per ECHO 05/24/17 Trace mitral regurgitation , trace TC regurgitation w no significant valve pathology 24meg colo July 2009 exc for 2 hyperplastic polyps 25Colonoscopy 2004 at [facility] [place] per letter of Dr Amor Dobbins Results Orders for Microbiology Reports Name Date Urine Culture (URINE CULTURE) 06/02/20 Blood Culture 06/02/20 Blood Culture #2 06/02/20 Microbiology Reports TEST:Urine Culture STATUS:Auth (Verified) BODY SITE: SOURCE:URINE COLLECTED DATE/TIME:06/02/20 1:49 PM Urine Culture SPECIMEN DESCRIPTION : URINE SPECIAL REQUESTS : NONE CULTURE : <10,000 COL/ML REPORT STATUS : FINAL 06/03/2020 TEST:Blood Culture STATUS:Unauthenticated BODY SITE: SOURCE:Blood COLLECTED DATE/TIME:06/02/20 12:40 PM Blood Culture SPECIMEN DESCRIPTION : BLOOD R AC SPECIAL REQUESTS : NONE CULTURE : NO GROWTH AFTER 48 HOURS REPORT STATUS : PRELIMINARY REPORT TEST:Blood Culture, Second Order STATUS:Unauthenticated BODY SITE: SOURCE:Blood COLLECTED DATE/TIME:06/02/20 12:40 PM Blood Culture, Second Order SPECIMEN DESCRIPTION : BLOOD RIGHT HAND SPECIAL REQUESTS : NONE CULTURE : NO GROWTH AFTER 48 HOURS REPORT STATUS : PRELIMINARY REPORT Radiology Reports * Exam Date Time Procedure Performing Provider Status 06/02/20 1:37 PM Chest Portable Estela Metzger; Au th (Verified) Notes: (Chest Portable) Reason For Exam: Shortness of Breath RESULT: Chest Portable Chest Portable Hx of Present Illness: pt reports earlier today i was not feeling well i had really bad chest pain that has gotten better now but it was hurting a lot earlier pt sts she is supposed to wear O2 at baseline but does not use it; Reason: Shortness of Breath; Clinical Question(s): CHF COMPARISON: None. FINDINGS: LINES AND TUBES: None. LUNGS AND PLEURA: Indistinct densities at both bases likely represent atelectasis. No pleural effusion. No pneumothorax. HEART, MEDIASTINUM AND SERINA: Heart is normal in size. Normal upper mediastinal and hilar contour. BONES AND SOFT TISSUES: No acute abnormality. Cholecystectomy clips are noted. IMPRESSION: Increasing bibasilar opacities likely representing atelectasis. Early areas of consolidation are not entirely excluded. WSN: [id number] Ordering Physician: Christianne Gómez Dictated By: José Miguel Titus MD Dictated Date/Time: 06/02/20 1:51 pm Reviewed By: José Miguel Titus MD Signed By: José Miguel Titus MD Signed Date/Time: 06/02/20 1:51 pm Transcribed By: AUGUSTINE Transcribed Date/Time: 06/02/20 1:44 pm Vital Signs Most recent to oldest [Reference Range]: 1 2 3 Height 160 cm (06/04/20 11:29 AM) 160 cm (06/04/20 7:41 AM) 160 cm (06/03/20 7:30 PM) Weight 80.6 kg (06/03/20 12:32 PM) Oxygen Saturation [94-100 %] 100 % (06/04/20 11:29 AM) 100 % (06/04/20 7:41 AM) 100 % (06/04/20 4:00 AM) Pulse Rate [55-90 bpm] 95 bpm *H* (06/04/20 11:29 AM) 82 bpm (06/04/20 7:41 AM) 84 bpm (06/04/20 4:00 AM) Body Mass Index [18.5-24.99] 31.48 *>HHI* (06/03/20 12:32 PM) Blood Pressure [90-138/55-84 mm Hg] 119/73mm Hg (06/04/20 11:29 AM) 126/74mm Hg (06/04/20 7:41 AM) 135/78mm Hg (06/04/20 4:00 AM) Respiratory Rate [16-30 br/min] 18 br/min (06/04/20 11:29 AM) 17 br/min (06/04/20 10:29 AM) 16 br/min (06/04/20 8:42 AM) Temperature [96.8-100.4 DegF] 98.6 DegF (06/04/20 11:29 AM) 98.3 DegF (06/04/20 7:41 AM) 97.1 DegF (06/04/20 4:00 AM) Mode of Delivery (Oxygen) Room air (06/04/20 11:29 AM) Room air (06/04/20 7:41 AM) Room air (06/04/20 4:00 AM) Blood pressure sites Arm, left (06/04/20 11:29 AM) Arm, right (06/04/20 7:41 AM) Arm, right (06/03/20 7:30 PM) Temperature Route Oral (06/04/20 11:29 AM) Oral (06/04/20 7:41 AM) Temporal (06/04/20 4:00 AM) Dry Weight 80.6 kg (06/03/20 12:32 PM) Social History Social History Type Response Smoking Status Never (less than 100 in lifetime) entered on: 04/29/20 Sex
--- OUTSIDE RECORDS SUMMARY | 2023-10-23 09:43 | XMS_ITS | Continuity of Care Document ---
Author Organization [facility] Address [address] [place] [address]- Care Team Providers Care Stage Set Up Worker Name Role Phone Gayathri GARZA, Florinda Primary Care Physician En[place] [facility] [place](s): 10/15/21 - 11/14/21 [facility] [address] [place], [place] [address] Allergies, Adverse Reactions, Alerts Substance Reaction Severity Status penicillin RASH Active morphine itchy Active Bactrim 1 hyperkalemia Active Lidocaine, Topical Active 1Hyperkalemia when used together with lisinopril Immunizations Given and Recorded Vaccine Date Status Refusal Reason zoster vaccine, inactivated 09/15/21 Given SARS-CoV-2 mRNA ([id number]-[id number]-rbqmp) vax 09/15/21 Given SARS-CoV-2 (COVID-19) mRNA BNT-162b2 [...] or fever, (not to exceed 2000 mg/day) croatian, # 100 tablet, 11 Refills, Maintenance, 04/28/21 13:24:00 EST, [facility]/pharmacy #[id number], 160, cm, 04/28/21 9:50:00 [...] Refills, Maintenance, 07/21/21 12:43:00 EDT, [facility]/pharmacy #1026, 1 applicator Topically [...] Refills, Soft Stop, 06/26/20 7:30:00 EDT, [facility]/pharmacy #1026, Partial fill upon patient request if the prescription is for a schedule II op... Start Date: 06/26/20 Status: Ordered Biotene Moisturizing Mouth oral spray See Instructions, [place] directly into mouth; spray is safe to swallow as needed for dry mouth, # 45mL, 11 Refills, Maintenance, 07/21/21 12:43:00 EDT, [facility], [place] directly into mouth; spray is safe to [...] needed for anxiety and 1tab at HS jiswzu-cpo-lnkjo, # 60 tablet, 11 Refills, Maintenance, 09/15/21 9:02:00 EDT, [facility], Partial fill upon patient request... Start Date: 09/15/21 Status: Ordered capsaicin 0.025% topical cream 1 application, Topically, 3 times a day, # 35 Gm, 11 Refills, Maintenance, 07/21/21 12:26:00 EDT, Cream, [facility]/pharmacy #1026, 1 application Topically 3 [...] 11 Refills, Maintenance, 04/21/21 18:12:00 EST, Tablet, [facility]/pharmacy #1026, 160, cm, 03/03/21 11:23:00 EST, Height, 80.6, kg, 06/03/20 19:00:00 EST, Dry Weight Start Date: 04/21/21 Status: Ordered escitalopram 20 mg oral tablet 1 tablet = 20 mg, By Mouth, Daily, Discontinue duloxetine 60 mg, # 30 tablet, 11 Refills, Maintenance, 12/09/20 11:15:00 EDT, Tablet, [facility]/pharmacy #1026, Partial fill upon patient [...] Refills, Maintenance, 07/12/21 18:53:00 EDT, Tablet,[facility]/pharmacy #1026, Discontinue 30- day supply presc... Start Date: 07/12/21 Stop Date: 07/07/22 Status: Ordered ferrous sulfate 325 mg oral tablet 1 tablet = 325 mg, By Mouth, Daily, May take with food to minimize abdominal discomfort. Do not take with milk. Take preferrably with juice., # 90 tablet, 3 Refills, Maintenance, 09/15/21 8:56:00 EDT, [facility]/pharmacy #1026, 160, cm, 09/15/21 8:15:00 [...] 14:34:00 EST, Route to Pharmacy Electronically, [facility]/pharmacy #1026, Can use with HCTZ, [...] capsule, 3 Refills, Maintenance, 10/22/20 10:35:00 EDT, [facility]/pharmacy #1026, 160, cm, 10/22/20 [...] HDZ, # 90 tablet, 1 Refills, [facility] STORE [id number], 90, TOME GAGE TABLETA POR VIA ORAL TODOS LOS HDZ, 160, cm, 09/21/21 8:54:00 EDT, Height, 80.6,kg, 06/03/20 19:00:00 EST, Dry Weight Start Date: 10/13/21 Status: Ordered Nexium 40 mg oral enteric coated capsule 1 capsule = 40 mg, By Mouth, Daily, 30 minutes before breakfast, # 30 capsule, 11 Refills, Maintenance, 04/28/21 14:00:00 EST, [facility]/pharmacy #1026, Discontinue pantoprazole, 160, cm, [...] 0 Refills, Maintenance, 09/21/21 9:23:00 EDT, Tablet, [facility], P... Start Date: 09/21/21 Status: Ordered Norvasc 5 mg oral tablet 5 mg, 1, tablet, By Mouth, Daily, # 30 tablet, Refills 0, Tot. Refills 0, Maintenance, 09/21/21 9:23:00 EDT, Route to Pharmacy Electronically, [facility], Partial fill upon patient request if the prescription is for a schedule II o... Start Date: 09/21/21 Status: Ordered NovoLOG FlexPen 100 units/mL subcutaneous solution See Instructions, Inject up to 26 untis via Insulin sliding scale 3x a day w/meals,MAX daily dose 78 units, E11.65, # 45 mL, 6 Refills, Maintenance, 01/21/20 14:30:00 EDT, [facility]/pharmacy #1026, 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 Start Date: 01/21/20 Status: Ordered Rke-kzc-bjlhy medical-grade oxford diabetic shoes, depth or hightop Zlj-vxz-bnrxm medical-grade oxford diabetic shoes, depth or hightop, [...] 11/29/21 Stop Date: 12/27/21 Status: Ordered Pen [place], 32 G x 4 mm BD Ultra [...] 14:02:00 EST, Route to Pharmacy Electronically, [facility]/pharmacy #1026, 160... Start Date: 04/28/21 [...] Gm,11 Refills, Maintenance, 01/27/20 19:13:00 EDT, [facility]/pharmacy #1026, 17- 34 Gm By [...] Refills, Maintenance, 04/28/21 14:03:00 EST, Tablet, [facility]/pharmacy #1026, 160, cm, 04/28/21 9:50:00 EST, Height, 80.6, kg, 06/03/20 19:00:00 EST, Dry Weight Start Date: 04/28/21 Status: Ordered Senna-Time 8.6 mg oral tablet 2 tablet, By Mouth, 2 times a day, PRN NEEDED FOR CONSTIPATION,INSTR, DISCONTINUE DOCUSATE, # 60tablet, 11 Refills, [facility] STORE [id number], 160, cm, 03/03/21 11:23:00 EST, Height, 80.6, [...] callus 11.628 right bunion M20.11 3 pairs, .. Start Date: 07/21/21 Status: Ordered Singulair 10 mg oral tablet 10 mg, 1, tablet, By Mouth, Daily at bedtime, Take every night even if doesn't has any asthma or allergies symptoms., # 30 tablet, Refills 11, Tot. Refills 11, Maintenance, 02/22/21 17:50:00 EST, Route to Pharmacy Electronically, [facility]/pharmacy #1026, 1... Start Date: 02/22/21 Status: Ordered tamsulosin 0.4 mg oral capsule See Instructions, TOME 1 CAPSULA POR VIA ORAL TODOS LOS HDZ, # 30 capsule, Refills 0, InstructionsReplace Required Details, Route to Pharmacy Electronically, [facility] STORE [id number], 160, cm, 09/21/21 8:54:00 EDT, Height, 80.6, kg, 06/03/20 19:00:00 ESTDr... Start Date: 10/08/21 Status: Ordered TENS electrode [...] 9:03:00 EDT, Route to Pharmacy Electronically, [facility]/pharmacy #1026, Partial fill upon patient request if the prescri... Start Date: 09/15/21 Stop Date: 03/02/22 Status: Ordered Trelegy Ellipta inhalation powder 1 puffs, Inhalation, Daily, at the same time every day Given by Quality Control Expert, Dr. Michael Berkowitz, # 60 each, 0 Refills, Maintenance, 07/21/21 11:59:00 EDT, Powder, Partial fill upon patient request if the prescription is for a schedule II opi... 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 06/16/08 SURGEON: Danny Marie M.D. PRINT JOURNALIST: Naima Bowling M.D. 21b/l submassive PE diagnosed on Dec 20 in [facility] 22TTE 12/22/15 in [facility]: RV dilatation, RVSP 46 23Per ECHO 05/24/17 Trace mitral regurgitation , trace TC regurgitation w no significant valve pathology 24meg colo July 2009 exc for 2 hyperplastic polyps 25Colonoscopy 2004 at [facility] [place] per letter of Dr Amor Dobbins Social History Social History Type Response Smoking Status Never (less than 100 in lifetime) entered on: 10/22/20 Sex
--- OUTSIDE RECORDS SUMMARY | 2023-10-23 09:44 | XMS_ITS | Continuity of Care Document ---
Author Organization [facility] Address Unknown Care Team Providers Care Proof Machine Operator Name Role Phone Gayathri GARZA, Florinda Primary Care Physician [place] [facility] [place] 03/05/21 - 04/04/21 [facility] Allergies, Adverse Reactions, Alerts Substance [...] influenza virus vaccine, inactivated 3 02/01/10 Gi zney influenza virus vaccine, inactivated 4 12/30/08 Gi [...] estonian, # 100 tablet, 11 Refills, Maintenance, 08/14/20 10:13:00 EDT, [facility]/pharmacy #1026, 160, cm, 08/14/20 9:34:00 [...] 11 Refills, Maintenance, 01/18/21 18:00:00 EDT, Tablet, [facility]/pharmacy #1026, 160, cm, 10/22/20 9:15:00 EDT, Height, 80.6, kg, 06/03/20 19:00:00 EST, Dry Weight Start Date: 01/18/21 Status: Ordered escitalopram 20 mg oral tablet 1 tablet = 20 mg, By Mouth, Daily, Discontinue duloxetine 60 mg, # 30 tablet, 11 Refills, Maintenance, 12/09/20 11:15:00 EDT, Tablet, [facility]/pharmacy #1026, Partial fill upon patient [...] tablet, 3 Refills, Maintenance, 06/30/20 14:55:00 EDT, Tablet,[facility]/pharmacy #1026, Discontinue [...] 78.8, kg,... Start Date: 01/21/20 Status: Ordered Zzr-tqe-ihsct medical-grade oxford diabetic shoes, depth or hightop Zxf-ocu-czjeq medical-grade oxford diabetic shoes, depth or hightop, [...] 04/19/21 Stop Date: 05/17/21 Status: Ordered Pen [place], 32 G x 4 mm BD Ultra [...] HDZ, # 30 tablet, 5 Refills, Maintenance, [facility] STORE 28929, 160, cm, 10/22/20 9:15:00 EDT, Height, 80.6, kg, 06/03/20 19:00:00 EST, Dry Weight Start Date: 11/13/20 Status: Ordered Senna 8.6 mg oral tablet 17.2 mg, 2, tablet, By Mouth, 2 times a day, PRN, discontinue docusate, # 60 tablet, Refills 11, Tot. Refills 11, Maintenance, for constipation, 02/10/20 11:22:00 EST, Route to Pharmacy Electronically, [facility]/pharmacy #1026 Tablet, 167, cm, 01/13/20 [...] 02/22/21 17:50:00 EST, Route to Pharmacy Electronically, [facility]/pharmacy #1026, 1... Start Date: 02/22/21 [...] 02/15/21 11:39:00 EST, Route to Pharmacy Electronically, [facility]/pharmacy #1026,Partial fill upon patient request if the prescrip... Start Date: 02/15/21 Stop Date: 03/29/21 Status: Ordered Trelegy Ellipta inhalation powder 1 puffs, Inhalation, Daily, at the same time every day given by dye range feeder , Dr Berkowitz, # 60 each, 0 Refills, Maintenance, 11/20/19 13:03:00 EDT, Powder Start Date: 11/20/19 Status: Ordered Tresiba FlexTouch 200 units/mL subcutaneous solution See Instructions, Inject 55 units daily at 9pm, E11.65. titrate accordingly, # 45 mL, 6 Refills, Maintenance, 01/21/20 14:30:00 EDT, [facility]/pharmacy #1026, 167, cm, 01/13/20 8:54:00 [...] Date: 02/15/21 Stop Date: 05/10/21 Status: Ordered [place] Reusable Bed Pad 34 x 36 [place] Reusable Bed Pad 34 x 36 , [...] 11 Refills, Maintenance, 10/22/20 10:19:00 EDT, Tablet, [facility]/pharmacy #1026, Partial fill upon patient request if the prescription is for a schedule II opioid drug., 1 tablet B... Start Date: 10/22/20 Status: Ordered Zofran 4 mg oral tablet 1 tablet = 4 mg, By Mouth, Every 8 hours, PRN Nausea & Vomiting, # 15 tablet, 1 Refills, Maintenance, 09/10/20 9:48:00 EDT, Tablet, [facility]/pharmacy #1026, Partial fill upon patient [...] abnormal(Confirmed) 11 12/29/11 Active Hepatitis C(Confirmed) Active [facility] current use of opi ate analgesic-LBP(Confirmed) 12 [...] apnea)(Confirmed) Active Osteopenia(Confirmed) 18, 19 11/16/12 Active *[id number] [facility] Active Peripheral venous insufficiency(Confirmed) 10/31/11 Active [...] 2 peroneal veins diagnosed on Dec 20 [facility] 6insulin dependent 7Per ECHO 05/24/1718 [...] by [facility] Hearing Evaluation on 12/29/11 12Narcotic contract w [...] lower parathyroidectomy. 06/16/08 SURGEON: Danny Marie M.D. WASH HELPER: Naima Bowling M.D. 21b/l submassive PE diagnosed on Dec 20 in [facility] 22TTE 12/22/15 in [facility]: RV dilatation, RVSP 46 23Per ECHO 05/24/17 Trace mitral regurgitation , trace TC regurgitation w no significant valve pathology 24meg colo July 2009 exc for 2 hyperplastic polyps 25Colonoscopy 2004 at [facility] [place] per letter of Dr Amor Dobbins Social History Social History Type Response Smoking Status Never (less than 100 in lifetime) entered on: 10/22/20 Sex
--- OUTSIDE RECORDS SUMMARY | 2023-10-23 09:44 | XMS_ITS | Continuity of Care Document ---
Author Organization [facility] Address [address] [place] [address]- Care Team Providers Care Oral Therapist Name Role Phone Gayathri GARZA, Florinda Primary Care Physician Encounter [facility] Date(s): 08/05/22 - 09/04/22 [facility]/[address] [address]- [place] Allergies, Adverse Reactions, Alerts Substance Reaction Severity Status enalapril Active penicillin RASH Active morphine itchy Active Bactrim 1 hyperkalemia Active Lidocaine, Topical Active 1Hyperkalemia when used together with lisinopril Immunizations Given and Recorded Vaccine Date Status Refusal Reason [id number] 12y+ bivalent booster vax 05/25/22 Given influenza [...] zoster vaccine, inactivated 09/15/21 Given SARS-CoV-2 mRNA (jesuyvi-govm-oecff) vax 09/15/21 Given SARS-CoV-2 (COVID-19) mRNA BNT-162b2 [...] Maintenance, 05/25/22 12:08:00 EST, ER Tablet, [facility]/pharmacy #0838, Discontinue Motrin, 158, cm, 05/25/22 11:12:00... [...] 11 Refills, Maintenance, 07/21/21 12:43:00 EDT, [facility]/pharmacy #1026, [...] Refills, Soft Stop, 03/09/22 11:35:00 EST, [facility]/pharmacy #0838, 160, cm, 03/09/22 10:43:00EST, Height, 78, kg, 01/14/22 19:37:00 EDT, Dry W... Start Date: 03/09/22 Status: Ordered Biotene Moisturizing Mouth oral spray See Instructions, [place] directly into mouth; spray is safe to swallow as needed for dry mouth, # 45mL, 11 Refills, Maintenance, 05/25/22 12:42:00 EST, [facility]/pharmacy #0838, Partial fill upon patient request if [...] P.M. NEED[facility] & [facility], # [facility] tablet, 1 Refills, Maintenance, 08/05/22 12:49:00 EDT, [facility], 158, cm, 07/12/22 11:54:00 EDT, Height, 76, kg, 05/07/22 6:04:00 ES... Start Date: 08/05/22 Status: Ordered capsaicin 0.025% topical cream 1 application, Topically, 3 times a day, # 35 Gm, 11 Refills, Maintenance, 07/21/21 12:26:00 EDT, Cream, [facility]/pharmacy #1026, [...] 2 Refills, Maintenance, 08/05/22 12:49:00 EDT, [facility] STORE 78133, 158, cm, 07/12/22 11:54:00 EDT, Height, 76, kg, 05/07/22 6:04:00 EST, Dry Weight Start Date: 08/05/22 Status: Ordered famotidine 40 mg oral tablet 1 tablet = 40 mg, By Mouth, Daily at bedtime, If 40 mg tablet is not available, can be changed to 20 mg tablet 2 tablet at bedtime, # 90 tablet, 3 Refills, Maintenance, 07/12/21 18:53:00 EDT, Tablet,[facility]/pharmacy #1026, Discontinue 30- day supply presc... Start Date: 07/12/21 Stop Date: 07/07/22 Status: Ordered ferrous sulfate 325 mg oral tablet 1 tablet = 325 mg, By Mouth, Daily, May take with food to minimize abdominal discomfort. Do not take with milk. Take preferrably with juice., # 90 tablet, 3 Refills, Maintenance, 09/15/21 8:56:00 EDT, [facility]/pharmacy #1026, 160, cm, 09/15/21 8:15:00 EDT,... Start [...] 0 Refills, Maintenance, 07/08/22 9:47:00 EDT, [facility] STORE 20536, 158, cm, 06/16/22 11:27:00 EST, Height, 76, kg, 05/07/22 6:04:00 EST, Dry Weight Start Date: 07/08/22 Status: Ordered ketotifen 0.025% ophthalmic solution 1 drops, Eyes, Both, Every 12 hours, PRN as needed for eye allergy, # 7.5 mL, 11 Refills, Maintenance, 06/25/21 8:34:00 EDT, [facility]/pharmacy #1026, [...] tablet, 3 Refills, 03/09/22 11:57:00 EST, [facility]/pharmacy #0838, 1 tablet By Mouth Daily before dinner,PRN:allergies, 160, cm, 03/09/22 10:43:00 EST, Height, 78, kg, 01/14/22 19:37:00 ED... Start Date: 03/09/22 Status: Ordered montelukast 10 mg oral tablet 10 mg, 1, tablet, By Mouth, Daily at bedtime, # 90 tablet, Refills 3, Tot. Refills 3, Maintenance, 03/09/22 11:37:00 EST, Route to Pharmacy Electronically, [facility]/pharmacy #0838, 160, cm, 03/09/22 10:43:00 EST, Height, 78, kg, 01/14/22 19:37:00 EDT, Dry... Start Date: 03/09/22 Stop Date: 03/04/23 Status: Ordered Norvasc 5 mg oral tablet 5 mg, 1, tablet, By Mouth, Daily, # 90 tablet, Refills 3, Tot. 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 Start Date: 03/09/22 Status: Ordered Xec-mls-vkdby medical-grade oxford diabetic shoes, depth or hightop Cwy-odf-yurmf medical-grade oxford diabetic shoes, depth or hightop, [...] 08/19/22 Stop Date: 09/16/22 Status: Ordered Pen [place], 32 G x 4 mm BD Ultra [...] 11 Refills, Maintenance, 03/09/22 11:39:00 EST, [facility]/pharmacy #0838, 160, cm, 03/09/22 10:43:00 EST, Height, [...] the same time every day Given by Card Checker, Dr. Michael Berkowitz, # 60 each, 0 [...] 5 Refills, Maintenance, 11/09/20 12:36:00 EDT, [facility]/pharmacy #1026, 160, cm, 10/22/20 9:15:00 EDT, Height, 80.6, kg, 06/03/20 19:00:00 EST,... Start Date: 11/09/20 Status: Ordered Voltaren 1% topical gel = 2 Gm, Topically, 4 times a day, # 100 Gm, 5 Refills, Maintenance, 03/09/22 11:55:00 EST, [facility]/pharmacy #0838, 2 Gm Topically 4 times a day,x14 days, 160, cm, 03/09/22 10:43:00 EST, Height, 78, kg, 01/14/22 19:37:00 EDT, Dry Weight Start Date: 03/09/22 Stop Date: 06/01/22 Status: Ordered [place] Reusable Bed Pad 34 x 36 [place] Reusable Bed Pad 34 x 36 , [...] Osteopenia 18, 19, 20 Confirmed 11/16/12 Active *[id number] Emergency Room Clerk Karine More Confirmed Active Peripheral venous insufficiency [...] sensorineural hearing loss by [facility] Hearing Evaluation on 12/29/11 12Narcotic contract [...] parathyroidectomy. 06/16/08 SURGEON: Danny Marie M.D. BLOWER ROOM ATTENDANT: Naima Bowling M.D. 22b/l submassive PE diagnosed on Dec 20 in [facility] TTE 12/22/15 in [facility]: RV dilatation, RVSP 46 24Per ECHO 05/24/17 Trace mitral regurgitation , trace TC regurgitation w no significant valve pathology 25meg colo July 2009 exc for 2 hyperplastic polyps 26Colonoscopy 2004 at [facility] [place] per letter of Dr Amor Dobbins Social [...] Member Role: Lifetime Consulting Physician Address: Address: [address] [place] [address] [facility] [address] Name: Florinda Trinh MD Position: [facility] Physician - Primary Care Member Role: PCP Address: Address: [address] [place] [address] Care Team Related Persons Name: JOSE ELIAS TODD Address: [place] [address] Name: JOSE ELIAS KIRKLAND Address: home [address] [place] [id number] Name: LEONIE SCHRADER Address: [place] [address]
--- OUTSIDE RECORDS SUMMARY | 2023-10-23 09:44 | XMS_ITS | Continuity of Care Document ---
Author Organization [facility] Address [address] [place] [address]- Care Team Providers Care Loop Sewer Name Role Phone Gayathri GARZA, Florinda Primary Care Physician [facility]counter [facility] Date(s): 04/16/20 - 05/16/20 [facility] [address] [place] [id number] Attending Physician: Yaya Patino Admitting Physician: AdmYaya chavarria Referring Physician: AdmtraYya Allergies, Adverse Reactions, Alerts Substance Reaction Severity [...] 11 05/20/04 Given tetanus-diphtheria toxoids (Td) 12 8/3/11 Given 1Result Comment: [03/04/2015] ORDERED BY DR. [...] or fever, (not to exceed 2000 mg/day) kiswahili, # 100 tablet, 5 Refills, Maintenance, 01/22/20 [...] 01/21/21 19:13:00 EDT, 01/27/20 19:13:00 EDT, Tablet, [facility]/pharmacy #1026, 167, cm, 01/13/20 8:54:00 EDT, Height, 78.8, kg, 01/01/20 3:41:00 EDT, Dry... Start Date: 01/27/20 Stop Date: 01/21/21 Status: Ordered capsaicin 0.025% topical cream 1 application, Topically, 3 times a day, # 90 Gm, 11 Refills, Maintenance, 02/10/20 11:22:00 EST, Cream, [facility]/pharmacy #1026, 1 application [...] Refills, Maintenance, 01/27/20 19:13:00 EDT, EC Capsule, [facility]/pharmacy #1026, 167, cm, 01/13/20 8:54:00 EDT, Height, 78.8, kg, 01/01/20 3:41:00 EDT, Dry Weight Start Date: 01/27/20 Status: Ordered Eliquis 5 mg oral tablet 1 tablet = 5 mg, By Mouth, 2 times a day, # 60 tablet, 11 Refills, Maintenance, 02/10/20 11:22:00 EST, Tablet, [facility]/pharmacy #1026, 167, cm, 01/13/20 8:54:00 EDT, Height, 78.8, kg, 01/01/20 3:41:00 EDT, Dry Weight Start Date: 02/10/20 Status: Ordered enalapril 10 mg oral tablet 10 mg, 1, tablet, By Mouth, Daily, discontinue hydrochlorothiazide, # 30 tablet, Refills 11, Tot. Refills 11, Maintenance, 04/29/20 13:04:00 EST, Route to Pharmacy Electronically, [facility]/pharmacy #1026,167, cm, 04/29/20 9:24:00 EST, Height, 82, kg, 01... Start Date: 04/29/20 Status: Ordered famotidine 40 mg oral tablet 1 tablet = 40 mg, By Mouth, Daily at bedtime, If 40 mg tablet is not available, can change to 20 mgtablet 2 tablet at bedtime, # 30 tablet, 2 Refills, Maintenance, 04/04/20 16:07:00 EST, Tablet, [facility]/pharmacy #1026, 167, cm, 02/24/20 17:04:00 [...] 01/22/20 9:41:00 EDT, Route to Pharmacy Electronically, [facility]/pharmacy #1026, 167, cm, 01/13/20 8:54:00 EDT, Height, 78... Start Date: 01/22/20 Status: Ordered NovoLOG FlexPen 100 units/mL subcutaneous solution See Instructions, Inject up to 26 untis via Insulin sliding scale 3x a day w/meals,MAX daily dose 78 units, E11.65, # 45 mL, 6 Refills, Maintenance, 01/21/20 14:30:00 EDT, 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 Start Date: 01/21/20 Status: Ordered Obl-dyv-obffi medical-grade oxford diabetic shoes, depth or hightop Blh-wpg-yaikv medical-grade oxford diabetic shoes, depth or hightop, [...] EST, 05/15/20 10:25:00 EST, Route toPharmacy Electronically, [facility]/pharmacy #1026, Parti... Start Date: 05/15/20 Stop Date: 06/12/20 Status: Ordered oxyCODONE 5 mg oral tablet 5 mg, 1, tablet, By Mouth, Every 4 hours, for 28 days, PRN pain dispense not earlier than 06/12/20, #168 tablet, Refills 0, Tot. Refills 0, Acute 07/10/20 10:25:00 EDT, 06/12/20 10:25:00 EST, Route toPharmacy Electronically, [facility]/pharmacy #1026, Parti... Start Date: 06/12/20 Stop Date: 07/10/20 Status: Ordered oxyCODONE 5 mg oral tablet 5 mg, 1, tablet, By Mouth, Every 4 hours, for 28 days, PRN pain dispense not earlier than 07/10/20, #168 tablet, Refills 0, Tot. Refills 0, Acute 08/07/20 10:25:00 EDT, 07/10/20 10:25:00 EDT, Route toPharmacy Electronically, [facility]/pharmacy #1026, Parti... Start Date: 07/10/20 Stop Date: 08/07/20 Status: Ordered Pen [place], 32 G x 4 mm BD Ultra [...] Gm,11 Refills, Maintenance, 01/27/20 19:13:00 EDT, [facility]/pharmacy #1026, 17- 34 Gm By [...] 02/10/20 11:22:00 EST, Route to Pharmacy Electronically, [facility]/pharmacy #1026 Tablet, 167, cm, 01/13/20 [...] 05/01/20 9:28:00 EST, Route to Pharmacy Electronically, [facility]/pharmacy #1026, 167,... Start Date: 05/01/20 Status: Ordered TENS electrode pads TENS electrode pads, See Instructions, # 1 box, Refills 5, Tot. Refills 5, Maintenance, use as directed for back pain Dx LBP M54.9 1 box of 4, 12/06/16 14:59:01, Compound Start Date: 12/06/16 Status: Ordered Trelegy Ellipta inhalation powder 1 puffs, Inhalation, Daily, at the same time every day given by transit proof machine operator , Dr Berkowitz, # 60 [...] Dry Weight Start Date: 04/15/20 Status: Ordered [place] Reusable Bed Pad 34 x 36 [place] Reusable Bed Pad 34 x 36 , [...] apnea)(Confirmed) Active Osteopenia(Confirmed) 18, 19 11/16/12 Active *[id number] [facility] Karine [place](Confirmed) Active Peripheral venous insufficiency(Confirmed) [...] on Dec 20 [facility] 6insulin dependent 7Per ECHO 05/24/1718 Grade I, [...] mild sensorineural hearing loss by [facility] Hearing Evaluation on 12/29/11 12Narcotic contract w [...] lower parathyroidectomy. 06/16/08 SURGEON: Danny Marie M.D. MUTUEL CLERK: Naima Bowling M.D. 21b/l submassive PE diagnosed on Dec 20 in [facility] 22TTE 12/22/15 in [facility]: RV dilatation, RVSP 46 23Per ECHO 05/24/17 Trace mitral regurgitation , trace TC regurgitation w no significant valve pathology 24meg colo July 2009 exc for 2 hyperplastic polyps 25Colonoscopy 2004 at [facility] [place] per letter of Dr Amor Dobbins Social History Social History Type Response Smoking Status Never (less than 100 in lifetime) entered on: 04/29/20 Sex
--- OUTSIDE RECORDS SUMMARY | 2023-10-23 09:44 | XMS_ITS | Continuity of Care Document ---
Author Organization [facility] Address [address] [place] [address]- Care Team Providers Care Calender Runner Name Role Phone Gayathri GARZA, Florinda Primary Care Physician Encounter [facility] Date(s): 08/10/20 - 09/09/20 [facility] [address] [place] [address]- Allergies, Adverse Reactions, Alerts Substance Reaction Severity [...] exceed 2000 mg/day) macedonian, # 100 tablet, 11 Refills, Maintenance, 08/14/20 [...] 07/16/20 15:26:00 EDT, Route to Pharmacy Electronically, [facility]/pharmacy #1026, 160, cm, 06/12/20 9:01... Start Date: 07/16/20 Status: Ordered ammonium lactate 12% topical cream 1 applicator, Topically, 2 times a day, # 280 Gm, 11 Refills, Maintenance, 01/27/20 19:13:00 EDT, [facility]/pharmacy #1026, 1 applicator Topically [...] 3 Refills, Soft Stop, 06/26/20 7:30:00 EDT, [facility]/pharmacy #1026, Partial fill upon patient request if the prescription is for a schedule II op... Start Date: 06/26/20 Status: Ordered calcium (as citrate)-vitamin D 315 mg-250 intl units oral tablet 2 tablet, By Mouth, 2 times a day, for 30 days, calcium citrate, # 120 tablet, 11 Refills, Hard Stop 01/21/21 19:13:00 EDT, 01/27/20 19:13:00 EDT, Tablet, [facility]/pharmacy #1026, 167, cm, 01/13/20 8:54:00 EDT, Height, 78.8, kg, 01/01/20 3:41:00 EDT, Dry... Start Date: 01/27/20 Stop Date: 01/21/21 Status: Ordered capsaicin 0.025% topical cream 1 application, Topically, 3 times a day, # 90 Gm, 11 Refills, Maintenance, 02/10/20 11:22:00 EST, Cream, [facility]/pharmacy #1026, 1 application Topically [...] tablet, 1 Refills, Maintenance, 08/31/20 14:45:00 EDT, [facility]/pharmacy #1026, 160, cm, 08/14/20 9:34:00 EDT... Start [...] capsule, 0 Refills, Maintenance, 08/28/20 17:52:00 EDT, [facility]/pharmacy #1026, 160, cm, 08/14/20 9:34:00 EDT, Height, 80.6, kg, 06/03/20 19:00:00 EST, Dry Weight Start Date: 08/28/20 Stop Date: 11/26/20 Status: Ordered ketotifen 0.025% ophthalmic solution 1 drops, Eyes, Both, Every 12 hours, PRN as needed for eye allergy, # 7.5 mL, 11 Refills, Maintenance, 01/27/20 19:13:00 EDT, [facility]/pharmacy #1026, 1 drops Eyes, [...] 06/24/20 9:08:00 EDT, Route to Pharmacy Electronically, [facility]/pharmacy #1026, 160, cm, 06/12/20 9:01:00 EST, Height, 80... 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 Start Date: 01/21/20 Status: Ordered Kmd-kqf-sfetu medical-grade oxford diabetic shoes, depth or hightop Pmh-hia-srkwl medical-grade oxford diabetic shoes, depth or hightop, See Instructions, # 1 pair, Refills 0, Tot. 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 Start Date: 6/12/19 Status: Ordered oxyCODONE 5 mg oral tablet 5 mg, 1, tablet, By Mouth, Every 4 hours, for 28 days, PRN pain dispense not earlier than09/04/20, #168 tablet, Refills 0, Tot. Refills 0, Acute 10/02/20 10:25:00 EDT, 09/04/20 10:25:00 EDT, Route toPharmacy Electronically, [facility]/pharmacy #1026, Parti... Start Date: 09/04/20 Stop Date: 10/02/20 Status: Ordered oxyCODONE 5 mg oral tablet 5 mg, 1, tablet, By Mouth, Every 4 hours, for 28 days, PRN pain dispense not earlier than 10/02/20, # 168 tablet, Refills 0, Tot. Refills 0, Acute 10/30/20 10:25:00 EDT, 10/02/20 10:25:00 EDT, Route to Pharmacy Electronically, [facility]/pharmacy #1026, Part... Start Date: 10/02/20 Stop Date: 10/30/20 Status: Ordered Pen [place], 32 G x 4 mm BD Ultra [...] 527 Gm,11 Refills, Maintenance, 01/27/20 19:13:00 EDT, [facility]/pharmacy #1026, 17- 34 Gm [...] 02/10/20 11:22:00 EST, Route to Pharmacy Electronically, [facility]/pharmacy #1026 Tablet, 167, cm, [...] 05/01/20 9:28:00 EST, Route to Pharmacy Electronically, [facility]/pharmacy #1026, 167,... Start Date: [...] 08/14/20 10:39:00 EDT, Route to Pharmacy Electronically, [facility]/pharmacy #1026,Partial fill upon patient request if the prescrip... Start Date: 08/14/20 Stop Date: 08/28/20 Status: Ordered Trelegy Ellipta inhalation powder 1 puffs, Inhalation, Daily, at the same time every day given by director of hotel operations , Dr Berkowitz, # 60 each, 0 Refills, Maintenance, 11/20/19 13:03:00 EDT, Powder Start Date: 11/20/19 Status: Ordered Tresiba FlexTouch 200 units/mL subcutaneous solution See Instructions, Inject 55 units daily at 9pm, E11.65. titrate accordingly, # 45 mL, 6 Refills, Maintenance, 01/21/20 14:30:00 EDT, [facility]/pharmacy #1026, 167, cm, 01/13/20 8:54:00 EDT, Height, 78.8, kg, 01/01/20 3:41:00 EDT, Dry Weight Start Date: 01/21/20 Status: Ordered Ventolin HFA 108 mcg/inh inhalation aerosol with adapter 2 puffs, Inhalation, 4 times a day, PRN Wheezing/Shortness of Breath, dispense when patient requestit, # 18 Gm, 5 Refills, Maintenance, 06/12/20 8:41:00 EST, [facility]/pharmacy #1026, 160, cm, 06/04/20 11:29:00 EST, Height, 80.6, kg, 06/03/20 19:00:00 EST,... Start Date: 06/12/20 Status: Ordered Vitamin D3 1000 intl units oral tablet 1 tablet = 1,000 International_Units, By Mouth, Daily, # 90 tablet, 1 Refills, Maintenance, 04/15/20 12:22:00 EST, [facility]/pharmacy #1026, 167, cm, 04/13/20 10:16:00 EST, Height, 78.8, kg, 01/01/20 3:41:00 EDT, Dry Weight Start Date: 04/15/20 Status: Ordered Voltaren 1% topical gel = 2 Gm, Topically, 4 times a day, # 100 Gm, 5 Refills, Maintenance, 06/12/20 8:44:00 EST, [facility]/pharmacy #1026, 2 Gm Topically 4 times a day,x14 days, 160, cm, 06/04/20 11:29:00 EST, Height, 80.6, kg, 06/03/20 19:00:00 EST, Dry Weight Start Date: 06/12/20 Stop Date: 09/04/20 Status: Ordered [place] Reusable Bed Pad 34 x 36 [place] Reusable Bed Pad 34 x 36 , [...] abnormal(Confirmed) 11 12/29/11 Active Hepatitis C(Confirmed) Active snf current use of opi ate analgesic-LBP(Confirmed) 12 [...] apnea)(Confirmed) Active Osteopenia(Confirmed) 18, 19 11/16/12 Active *[id number] [facility] Active Peripheral venous insufficiency(Confirmed) 10/31/11 Active [...] 1 11left mild sensorineural hearing loss by [facility] Hearing Evaluation on 12/29/11 12Narcotic contract [...] lower parathyroidectomy. 06/16/08 SURGEON: Danny Marie M.D. PREPARATION SUPERVISOR CANNING: Naima Bowling M.D. 21b/l submassive PE diagnosed on Dec 20 in [facility] 22TTE 12/22/15 in [facility]: RV dilatation, RVSP 46 23Per ECHO 05/24/17 Trace mitral regurgitation , trace TC regurgitation w no significant valve pathology 24meg colo July 2009 exc for 2 hyperplastic polyps 25Colonoscopy 2004 at [facility] [place] per letter of Dr Amor Dobbins Social History Social History Type Response Smoking Status Never (less than 100 in lifetime) entered on: 06/12/20 Sex
--- OUTSIDE RECORDS SUMMARY | 2023-10-23 09:44 | XMS_ITS | Continuity of Care Document ---
Author Organization [facility] Address [address] [place] [address]- Care Team Providers Care Store Specialist Name Role Phone Gayathri GARZA, Florinda Primary Care Physician Encounter [facility] Date(s): 04/19/20 - 05/19/20 [facility] [address] [place] [address]- Attending Physician: Yaya Patino Admitting Physician: AdmYaya [...] 01/21/21 19:13:00 EDT, 01/27/20 19:13:00 EDT, Tablet, [facility]/pharmacy #1026, 167, cm, 01/13/20 8:54:00 EDT, Height, 78.8, kg, 01/01/20 3:41:00 EDT, Dry... Start Date: 01/27/20 Stop Date: 01/21/21 Status: Ordered capsaicin 0.025% topical cream 1 application, Topically, 3 times a day, # 90 Gm, 11 Refills, Maintenance, 02/10/20 11:22:00 EST, Cream, [facility]/pharmacy #1026, 1 application Topically 3 [...] Refills, Maintenance, 01/27/20 19:13:00 EDT, EC Capsule, [facility]/pharmacy #1026, 167, cm, 01/13/20 8:54:00 EDT, Height, 78.8, kg, 01/01/20 3:41:00 EDT, Dry Weight Start Date: 01/27/20 Status: Ordered Eliquis 5 mg oral tablet 1 tablet = 5 mg, By Mouth, 2 times a day, # 60 tablet, 11 Refills, Maintenance, 02/10/20 11:22:00 EST, Tablet, [facility]/pharmacy #1026, 167, cm, 01/13/20 8:54:00 EDT, Height, 78.8, kg, 01/01/20 3:41:00 EDT, Dry Weight Start Date: 02/10/20 Status: Ordered enalapril 10 mg oral tablet 10 mg, 1, tablet, By Mouth, Daily, discontinue hydrochlorothiazide, # 30 tablet, Refills 11, Tot. Refills 11, Maintenance, 04/29/20 13:04:00 EST, Route to Pharmacy Electronically, [facility]/pharmacy #1026,167, cm, 04/29/20 9:24:00 EST, Height, 82, kg, ... Start Date: 04/29/20 Status: Ordered famotidine 40 mg oral tablet 1 tablet = 40 mg, By Mouth, Daily at bedtime, If 40 mg tablet is not available, can change to 20 mgtablet 2 tablet at bedtime, # 30 tablet, 2 Refills, Maintenance, 04/04/20 16:07:00 EST, Tablet, [facility]/pharmacy #1026, 167, cm, 02/24/20 17:04:00 EST, [...] 01/22/20 9:41:00 EDT, Route to Pharmacy Electronically, [facility]/pharmacy #1026, 167, cm, 01/13/20 8:54:00 EDT, Height, 78... Start Date: 01/22/20 Status: Ordered NovoLOG FlexPen 100 units/mL subcutaneous solution See Instructions, Inject up to 26 untis via Insulin sliding scale 3x a day w/meals,MAX daily dose 78 units, E11.65, # 45 mL, 6 Refills, Maintenance, 01/21/20 14:30:00 EDT, [facility]/pharmacy #1026, 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 Start Date: 01/21/20 Status: Ordered Mgb-ned-viuum medical-grade oxford diabetic shoes, depth or hightop Suf-frz-qciyz medical-grade oxford diabetic shoes, depth or hightop, [...] EST, 05/15/20 10:25:00 EST, Route toPharmacy Electronically, [facility]/pharmacy #1026, Parti... Start Date: 05/15/20 Stop Date: 06/12/20 Status: Ordered oxyCODONE 5 mg oral tablet 5 mg, 1, tablet, By Mouth, Every 4 hours, for 28 days, PRN pain dispense not earlier than 06/12/20, #168 tablet, Refills 0, Tot. Refills 0, Acute 07/10/20 10:25:00 EDT, 06/12/20 10:25:00 EST, Route toPharmacy Electronically, [facility]/pharmacy #1026, Parti... Start Date: 06/12/20 Stop Date: 07/10/20 Status: Ordered oxyCODONE 5 mg oral tablet 5 mg, 1, tablet, By Mouth, Every 4 hours, for 28 days, PRN pain dispense not earlier than 07/10/20, #168 tablet, Refills 0, Tot. Refills 0, Acute 08/07/20 10:25:00 EDT, 07/10/20 10:25:00 EDT, Route toPharmacy Electronically, [facility]/pharmacy #1026, Parti... Start Date: 07/10/20 Stop Date: 08/07/20 Status: Ordered Pen [place], 32 G x 4 mm BD Ultra [...] 527 Gm,11 Refills, Maintenance, 01/27/20 19:13:00 EDT, [facility]/pharmacy #1026, 17- 34 Gm By [...] 02/10/20 11:22:00 EST, Route to Pharmacy Electronically, [facility]/pharmacy #1026 Tablet, 167, cm, 01/13/20 [...] 05/01/20 9:28:00 EST, Route to Pharmacy Electronically, [facility]/pharmacy #1026, 167,... Start Date: 05/01/20 Status: Ordered TENS electrode pads TENS electrode pads, See Instructions, # 1 box, Refills 5, Tot. 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 Hearing Evaluation on 12/29/11 12Narcotic contract [...] lower parathyroidectomy. 06/16/08 SURGEON: Danny Marie M.D. DERRICK BOAT LEVER OPERATOR: Naima Bowling M.D. 21b/l submassive PE diagnosed on Dec 20 in [facility] 22TTE 12/22/15 in [facility]: RV dilatation, RVSP 46 23Per ECHO 05/24/17 Trace mitral regurgitation , trace TC regurgitation w no significant valve pathology 24meg colo July 2009 exc for 2 hyperplastic polyps 25Colonoscopy [address] [facility] [place] per letter of Dr Amor Dobbins Social History Social History Type Response Smoking Status Never (less than 100 in lifetime) entered on: 04/29/20 Sex
--- OUTSIDE RECORDS SUMMARY | 2023-10-23 09:44 | XMS_ITS | Continuity of Care Document ---
Author Organization [facility] Address [address] [place] [address]- Care Team Providers Care Assembler Truck Trailer Name Role Phone Florinda Trinh MD Primary Care Physician [place] [facility] [place]/21 [facility] [address] [place] [id number]- Attending Physician: Chasidy Dyer MD Admitting Physician: Chasidy Dyer MD Referring Physician: Florinda Trinh MD Allergies, [...] exceed 2000 mg/day) kyrgyz, # 100 tablet, 11 Refills, Maintenance, 04/28/21 13:24:00 EST, [facility]/pharmacy #1026, 160, cm, 04/28/21 9:50:00 EST, [...] Refills, Maintenance, 07/21/21 12:43:00 EDT, [facility]/pharmacy #1026, 1 applicator Topically 2 [...] Biotene Moisturizing Mouth oral spray See Instructions, [place] directly into mouth; spray is safe to swallow as needed for dry mouth, # 45mL, 11 Refills, Maintenance, 07/21/21 12:43:00 EDT, [facility], [place] directly into mouth; spray is safe [...] 14:34:00 EST, Route to Pharmacy Electronically, [facility]/pharmacy #1026, Can use with HCTZ, 160, [...] 3 Refills, Maintenance, 10/22/20 10:35:00 EDT, [facility]/pharmacy #1026, 160, cm, 10/22/20 9:15:00 EDT, Height, 80.6, kg, 06/03/20 19:00:00 EST, Dry Weight Start Date: 10/22/20 Stop Date: 10/17/21 Status: Ordered ketotifen 0.025% ophthalmic solution 1 drops, Eyes, Both, Every 12 hours, PRN as needed for eye allergy, # 7.5 mL, 11 Refills, Maintenance, 06/25/21 8:34:00 EDT, [facility]/pharmacy #1026, 1 drops Eyes, Both [...] DAILY, E11.65, # 90 tablet, 2 Refills, [facility] STORE [id number], 160, cm, 06/21/21 9:57:00 EDT, Height, 80.6, kg, 06/03/20 19:00:00 EST, Dry Weight Start Date: 07/19/21 Status: Ordered Nexium 40 mg oral enteric coated capsule 1 capsule = 40 mg, By Mouth, Daily, 30 minutes before breakfast, # 30 capsule, 11 Refills, Maintenance, 04/28/21 14:00:00 EST, [facility]/pharmacy #1026, Discontinue pantoprazole, 160, cm, 04/28/21 9:50:00 EST, Height, 80.6, kg, 06/03/20 19:00:00 EST, Dry We... Start Date: 04/28/21 Stop Date: 04/23/22 Status: Ordered NovoLOG FlexPen 100 units/mL subcutaneous solution See Instructions, Inject up to 26 untis via Insulin sliding scale 3x a day w/meals,MAX daily dose 78 units, E11.65, # 45 mL, 6 Refills, Maintenance, 01/21/20 14:30:00 EDT, [facility]/pharmacy #1026, 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 Start Date: 01/21/20 Status: Ordered Ziq-aqh-acwhv medical-grade oxford diabetic shoes, depth or hightop Rvk-rwe-ldmox medical-grade oxford diabetic shoes, depth or hightop, [...] 10/04/21 Stop Date: 11/01/21 Status: Ordered Pen [place], 32 G x 4 mm BD Ultra [...] 14:02:00 EST, Route to Pharmacy Electronically, [facility]/pharmacy #1026, 160... Start Date: 04/28/21 Stop [...] Gm,11 Refills, Maintenance, 01/27/20 19:13:00 EDT, [facility]/pharmacy #1026, 17- 34 Gm By Mouth [...] Refills, Maintenance, 04/28/21 14:03:00 EST, Tablet, [facility]/pharmacy #1026, 160, cm, 04/28/21 9:50:00 EST, Height, 80.6, kg, 06/03/20 19:00:00 EST, Dry Weight Start Date: 04/28/21 Status: Ordered Senna-Time 8.6 mg oral tablet 2 tablet, By Mouth, 2 times a day, PRN NEEDED FOR CONSTIPATION,INSTR, DISCONTINUE DOCUSATE, # 60tablet, 11 Refills, [facility] STORE [id number], 160, cm, 03/03/21 11:23:00 EST, Height, 80.6, [...] 17:50:00 EST, Route to Pharmacy Electronically, [facility]/pharmacy #1026, 1... Start Date: 02/22/21 Status: [...] 11:39:00 EST, Route to Pharmacy Electronically, [facility]/pharmacy #1026,Partial fill upon patient request if the prescrip... Start Date: 02/15/21 Stop Date: 03/29/21 Status: Ordered Trelegy Ellipta inhalation powder 1 puffs, Inhalation, Daily, at the same time every day Given by Associate Professor Of Psychology, Dr. Michael Berkowitz, # 60 each, 0 Refills, Maintenance, 07/21/21 11:59:00 EDT, Powder, Partial fill upon patient request if the prescription is for a schedule II opi... Start Date: 07/21/21 Status: Ordered Tresiba FlexTouch 200 units/mL subcutaneous solution See Instructions, INJECT 86 UNITS DAILY AT 9PM, # 45 Unknown, 6 Refills, [facility] [id number], 160, cm, 06/21/21 9:57:00 EDT, Height, 80.6, kg, 06/03/20 19:00:00 EST, Dry Weight Start Date: 06/22/21 Status: Ordered Ventolin HFA 108 mcg/inh inhalation aerosol with adapter 2 puffs, Inhalation, 4 times a day, PRN Wheezing/Shortness of Breath, dispense when patient requestit, # 18 Gm, 5 Refills, Maintenance, 11/09/20 12:36:00 EDT, [facility]/pharmacy #1026, 160, cm, 10/22/20 9:15:00 EDT, [...] Date: 02/15/21 Stop Date: 05/10/21 Status: Ordered [place] Reusable Bed Pad 34 x 36 [place] Reusable Bed Pad 34 x 36 , [...] abnormal(Confirmed) 11 12/29/11 Active 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 3/9/09 SURGEON: Danny Marie M.D. SALES EXECUTIVE INSURANCE: Naima Bowling M.D. 21b/l submassive PE diagnosed on Dec 20 in [facility] 22TTE 12/22/15 in [facility]: RV dilatation, RVSP 46 23Per ECHO 05/24/17 Trace mitral regurgitation , trace TC regurgitation w no significant valve pathology 24meg colo July 2009 exc for 2 hyperplastic polyps 25Colonoscopy 2004 at [facility] [place] per letter of Dr Amor Dobbins Social History Social History Type Response Smoking Status Never (less than 100 in lifetime) entered on: 10/22/20 Sex
--- OUTSIDE RECORDS SUMMARY | 2023-10-23 09:44 | XMS_ITS | Continuity of Care Document ---
Author Organization [facility] Address [address] [place] [address]- Care Team Providers Care Windlace Machine Operator Name Role Phone Florinda Trinh MD Primary Care Physician Encounter [facility] [place] Date(s): 05/19/20 - 07/15/[address] [address]- Attending Physician: Florinda Trinh MD Admitting Physician: [...] Note: given by ELLIOTT HEWITT. 6Admin Note: DENNY CHIU RN 7Admin Note: administered by denny chiu 8Admin Note: ADMINISTERED BY Jason 9Result [...] or fever, (not to exceed 2000 mg/day) guinean, # 100 tablet, 5 Refills, Maintenance, 01/22/20 [...] 06/12/20 8:36:00 EST, Route to Pharmacy Electronically, [facility]/pharmacy #1026, 160, cm, 06/04/20 11:29:00 EST, Height, 80.6, kg, 06/03/20 19:00:00 EST, Dry Weight Start Date: 06/12/20 Status: Ordered ammonium lactate 12% topical cream 1 applicator, Topically, 2 times a day, # 280 Gm, 11 Refills, Maintenance, 01/27/20 19:13:00 EDT, [facility]/pharmacy #1026, 1 applicator Topically 2 times a day, 167, cm, 01/13/20 8:54:00 EDT, Height, 78.8, kg, 01/01/20 3:41:00 EDT, Dry Weight Start Date: 01/27/20 Status: Ordered Baqsimi Two Pack 3 mg nasal powder = 3 mg, Naris, Right, Once, Please use for a low blood sugar emergency, may repeat in 15 minutes, #2 each, 3 Refills, Soft Stop, 06/26/20 7:30:00 EDT, [facility]/pharmacy #1026, Partial fill upon patient request if the prescription is for a schedule II op... Start Date: 06/26/20 Status: Ordered calcium (as citrate)-vitamin D 315 mg-250 intl units oral tablet 2 tablet, By Mouth, 2 times a day, for 30 days, calcium citrate, # 120 tablet, 11 Refills, Hard Stop 01/21/21 19:13:00 EDT, 01/27/20 19:13:00 EDT, Tablet, [facility]/pharmacy #1026, 167, cm, 01/13/20 8:54:00 EDT, Height, 78.8, kg, 01/01/20 3:41:00 EDT, Dry... Start Date: 01/27/20 Stop Date: 01/21/21 Status: Ordered capsaicin 0.025% topical cream 1 application, Topically, 3 times a day, # 90 Gm, 11 Refills, Maintenance, 02/10/20 11:22:00 EST, Cream, [facility]/pharmacy #1026, 1 application Topically 3 [...] tablet, 2 Refills, Maintenance, 01/22/20 9:38:00 EDT, [facility]/pharmacy #1026, 167, cm, 01/13/20 8:54:00 [...] capsule, 3 Refills, Maintenance, 06/30/20 14:54:00 EDT, [facility]/pharmacy #1026, 160, cm, 06/12/20 9:01:00 EST, Height, 80.6, kg, 06/03/20 19:00:00 EST, Dry Weight Start Date: 06/30/20 Stop Date: 06/25/21 Status: Ordered ketotifen 0.025% ophthalmic solution 1 drops, Eyes, Both, Every 12 hours, PRN as needed for eye allergy, # 7.5 mL, 11 Refills, Maintenance, 01/27/20 19:13:00 EDT, [facility]/pharmacy #1026, 1 drops Eyes, Both [...] 06/24/20 9:08:00 EDT, Route to Pharmacy Electronically, [facility]/pharmacy #1026, 160, cm, 06/12/20 9:01:00 [...] 78.8, kg,... Start Date: 01/21/20 Status: Ordered Fal-qhk-daxeg medical-grade oxford diabetic shoes, depth or hightop Hxh-iiq-etdxl medical-grade oxford diabetic shoes, depth or hightop, [...] EDT, 07/10/20 10:25:00 EDT, Route toPharmacy Electronically, [facility]/pharmacy #1026, Parti... Start Date: 07/10/20 Stop Date: 08/07/20 Status: Ordered Pen [place], 32 G x 4 mm BD Ultra [...] 527 Gm,11 Refills, Maintenance, 01/27/20 19:13:00 EDT, [facility]/pharmacy #1026, 17- 34 Gm By [...] 02/10/20 11:22:00 EST, Route to Pharmacy Electronically, [facility]/pharmacy #1026 Tablet, 167, cm, 01/13/20 [...] 05/01/20 9:28:00 EST, Route to Pharmacy Electronically, [facility]/pharmacy #1026, 167,... Start Date: 05/01/20 Status: Ordered TENS electrode pads TENS electrode pads, See Instructions, # 1 box, Refills 5, Tot. Refills 5, Maintenance, use as directed for back pain Dx LBP M54.9 1 box of 4, 12/06/16 14:59:01, Compound Start Date: 12/06/16 Status: Ordered Trelegy Ellipta inhalation powder 1 puffs, Inhalation, Daily, at the same time every day given by host hostess , Dr Berkowitz, # 60 each, 0 [...] Date: 06/12/20 Stop Date: 09/04/20 Status: Ordered [place] Reusable Bed Pad 34 x 36 [place] Reusable Bed Pad 34 x 36 , [...] apnea)(Confirmed) Active Osteopenia(Confirmed) 18, 19 11/16/12 Active *[id number] Care Partn igor More(Confirmed) Active Peripheral venous [...] 2 peroneal veins diagnosed on Dec 20 [facility] 6insulin dependent 7Per ECHO 05/24/1718 [...] mild sensorineural hearing loss by [facility] Hearing Evaluation on 12/29/11 12Narcotic contract [...] lower parathyroidectomy. 06/16/08 SURGEON: Danny Marie M.D. CAMPAIGN ANALYST: Naima Bowling M.D. 21b/l submassive PE diagnosed on Dec 20 in [facility] 22TTE 12/22/15 in [facility]: RV dilatation, RVSP 46 23Per ECHO 05/24/17 Trace mitral regurgitation , trace TC regurgitation w no significant valve pathology 24meg colo July 2009 exc for 2 hyperplastic polyps 25Colonoscopy 2004 at [facility] [place] per letter of Dr Amor Dobbins Social History Social History Type Response Smoking Status Never (less than 100 in lifetime) entered on: 06/12/20 Sex
--- OUTSIDE RECORDS SUMMARY | 2023-10-23 09:44 | XMS_ITS | Continuity of Care Document ---
Author Organization [facility] Address Unknown Care Team Providers Care Liquefier Name Role Phone Gayathri GARZA, Florinda Primary Care Physician Encounter [facility] Date(s): 02/01/21 - 03/03/21 [facility] Allergies, Adverse Reactions, Alerts Substance [...] amharic, # 100 tablet, 11 Refills, Maintenance, 08/14/20 10:13:00 EDT, [facility]/pharmacy #1026, 160, cm, 08/14/20 9:34:00 EDT, Height, [...] 11 Refills, Maintenance, 01/18/21 18:00:00 EDT, Tablet, [facility]/pharmacy #1026, 160, cm, 10/22/20 9:15:00 [...] 78.8, kg,... Start Date: 01/21/20 Status: Ordered Zyf-xsd-hwbid medical-grade oxford diabetic shoes, depth or hightop Mkj-bwx-kwgxg medical-grade oxford diabetic shoes, depth or hightop, [...] to oxycodone 10 mg 0.5 tablets 4 [id number] days for 84 tablets, # 168 tablet, Refills 0,... Start Date: 02/19/21 Stop Date: 03/19/21 Status: Ordered oxyCODONE 5 mg oral tablet 5 mg, 1, tablet, By Mouth, Every 4 hours, for 28 days, PRN pain dispense not earlier than 12/10/21 If oxycodone 5 mg tablet is not [...] 04/16/21 Stop Date: 05/14/21 Status: Ordered Pen [place], 32 G x 4 mm BD Ultra [...] 30 tablet, 5 Refills, Maintenance, [facility], 160, cm, 10/22/20 9:15:00 EDT, Height, 80.6, kg, 06/03/20 19:00:00 EST, Dry Weight Start Date: 11/13/20 Status: Ordered Senna 8.6 mg oral tablet 17.2 mg, 2, tablet, By Mouth, 2 times a day, PRN, discontinue docusate, # 60 tablet, Refills 11, Tot. Refills 11, Maintenance, for constipation, 02/10/20 11:22:00 EST, Route to Pharmacy Electronically, [facility]/pharmacy #1026 Tablet, 167, cm, 01/13/20 8:5... Start [...] same time every day given by manager maintenance , Dr Berkowitz, # 60 each, 0 [...] Date: 02/15/21 Stop Date: 05/10/21 Status: Ordered [place] Reusable Bed Pad 34 x 36 [place] Reusable Bed Pad 34 x 36 , [...] 11 Refills, Maintenance, 10/22/20 10:19:00 EDT, Tablet, [facility]/pharmacy #1026, Partial fill upon patient request if the prescription is for a schedule II opioid drug., 1 tablet B... Start Date: 10/22/20 Status: Ordered Zofran 4 mg oral tablet 1 tablet = 4 mg, By Mouth, Every 8 hours, PRN Nausea & Vomiting, # 15 tablet, 1 Refills, Maintenance, 09/10/20 9:48:00 EDT, Tablet, [facility]/pharmacy #1026, Partial fill [...] abnormal(Confirmed) 11 12/29/11 Active Hepatitis C(Confirmed) Active half-way current use of opi ate analgesic-LBP(Confirmed) 12 [...] apnea)(Confirmed) Active Osteopenia(Confirmed) 18, 19 11/16/12 Active *[id number] Care Partn Karine [place](Confirmed) Active Peripheral venous insufficiency(Confirmed) 10/31/11 Active Positive [...] diagnosed on Dec 20 [facility] 6insulin dependent 7Per ECHO 05/24/1718 Grade [...] 1 11left mild sensorineural hearing loss by [facility] Hearing Evaluation on 12/29/11 12Narcotic [...] lower parathyroidectomy. 06/16/08 SURGEON: Danny Marie M.D. ASSISTED LIVING COORDINATOR: Naima Bowling M.D. 21b/l submassive PE diagnosed on Dec [address] [facility] 22TTE 12/22/[address] [facility]: RV dilatation, RVSP 46 23Per ECHO 05/24/17 Trace mitral regurgitation , trace TC regurgitation w no significant valve pathology 24meg colo July 2009 exc for 2 hyperplastic polyps 25Colonoscopy 2004 at [facility] [place] per letter of Dr Amor Dobbins Social History Social History Type Response Smoking Status Never (less than 100 in lifetime) entered on: 10/22/20 Sex
--- OUTSIDE RECORDS SUMMARY | 2023-10-23 09:44 | XMS_ITS | Continuity of Care Document ---
Author Organization [facility] Address [address] [place] [address]- Care Team Providers Care Telephone Directory Deliverer Name Role Phone Massimo Figueroa Primary Care Physician [phone] Encounter [facility] Date(s): 01/31/23 - 03/02/23 [facility] [address]- [place] Allergies, Adverse Reactions, Alerts Substance Reaction [...] virus vaccine, inactivated 6 05/06/04 Gi zeny [id number] 12y+ bivalent booster vax 05/25/22 Given zoster vaccine, inactivated 12/08/21 Given zoster vaccine, inactivated 09/15/21 Given SARS-CoV-2 mRNA (jrayqyo-uelp-ptabi) vax 09/15/21 Given SARS-CoV-2 (COVID-19) mRNA BNT-162b2 [...] Note: vis 11/02/2010 3Admin Note: given by ELILOTT HEWITT. 4Admin Note: MELISSA CRAFT RN 5Admin [...] Maintenance, 05/25/22 12:08:00 EST, ER Tablet, [facility], Discontinue Motrin, 158, cm, 05/25/22 11:12:00... Start [...] Biotene Moisturizing Mouth oral spray See Instructions, [place] directly into mouth; spray is safe to [...] P.M. NEEDED & 1 TAB AT [facility], # 180 tablet, 1 Refills, Maintenance, 08/05/22 12:49:00 EDT, [facility], 158, cm, 07/12/22 11:54:00 EDT, Height, 76, [...] 11 Refills, Maintenance, 12/06/21 15:04:00 EDT, Tablet, [facility], Partial fill upon patient request [...] Refills, Maintenance, 07/08/22 9:47:00 EDT, [facility], 158, cm, 06/16/22 11:27:00 EST, Height, 76, [...] # 15... Start Date: 11/24/22 Status: Ordered Nmt-qtz-zpytn medical-grade oxford diabetic shoes, depth or hightop Xft-leu-eudzx medical-grade oxford diabetic shoes, depth or hightop, [...] DOLOR Start Date: 11/24/22 Status: Ordered Pen [place], 32 G x 4 mm BD Ultra [...] 4 Refills, Maintenance, 11/24/22 9:55:00 EDT, Tablet, [facility]/pharmacy #0838, Partial fill upon patient [...] 15 mL, 3 Refills, Maintenance, 02/24/2312:11:00 EST, [facility]/pharmacy #0838, Partial fill upon [...] Gm, 5 Refills, Maintenance, 03/09/22 11:55:00 EST, [facility]/pharmacy #0838, 2 Gm Topically 4 times a day,x14 days, 160, cm, 03/09/22 10:43:00 EST, Height, 78, kg, 01/14/22 19:37:00 EDT, Dry Weight Start Date: 03/09/22 Stop Date: 06/01/22 Status: Ordered [place] Reusable Bed Pad 34 x 36 [place] Reusable Bed Pad 34 x 36 , [...] Confirmed 12/29/11 Active Hepatitis C 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 06/16/08 SURGEON: Danny Marie M.D. HEALTHCARE ADMINISTRATOR: Naima Bowling M.D. 22b/l submassive PE diagnosed on Dec 20 in [facility] 23TTE 12/22/15 in [facility]: RV dilatation, RVSP 46 24Per ECHO 05/24/17 Trace mitral regurgitation , trace TC regurgitation w no significant valve pathology 25meg colo July 2009 exc for 2 hyperplastic polyps 26Colonoscopy 2004 at [facility] [place] per letter of Dr Amor Dobbins Social History Social History Type Response Smoking Status Never (less than 100 in lifetime) entered on: 10/22/20 Sex Patient Care team information Care Team Personnel Name: Massimo Figueroa Position: [facility] Outreach Member Role: PCP Address: Address: [address] [place] [address] Name: Diamond Weiss RN Position: [facility] RN Member Role: Primary Care Nurse Name: Tiara Cavazos RN Position: [facility] OB RN Member Role: Primary Care Nurse Name: Shreya Boss RN Position: [facility] RN Member Role: Primary Care Nurse Name: Dhruv Khan RN Position: [facility] RN Member Role: Primary Care Nurse Name: Virginia Benson RN Position: [facility] SN RN Member Role: Primary Care Nurse Name: Jaylin Hernandez RN Position: [facility] Onco RN Member Role: Primary Care Nurse Name: Glen Cota MD Position: [facility] Renal MD Member Role: Lifetime Consulting Physician Address: Address: [address] [place] [address] [facility] [address] Name: Carole Toro LPN Position: [facility] RN Member Role: Primary Care Nurse Care Team Related Persons Name: JOSE ELIAS TODD Address: [place] [address] Name: JOSE ELIAS KIRKLAND Address: home [address] [place] [id number] Name: LEONIE SCHRADER Address: [place] [address]
--- OUTSIDE RECORDS SUMMARY | 2023-10-23 09:44 | XMS_ITS | Continuity of Care Document ---
Author Organization [facility] Address [address] [place] [address]- Care Team Providers Care Butcher Apprentice Name Role Phone Gayathri GARZA, Florinda Primary Care Physician Encounter [facility] Date(s): 01/17/22 - 02/16/22 [facility] [address] [place] [address]- Allergies, Adverse Reactions, Alerts Substance Reaction Severity Status penicillin RASH Active morphine itchy Active Bactrim 1 hyperkalemia Active Lidocaine, Topical Active 1Hyperkalemia when used together with lisinopril Immunizations Given and Recorded Vaccine Date Status Refusal Reason zoster vaccine, inactivated 12/08/21 Given zoster vaccine, inactivated 09/15/21 Given SARS-CoV-2 mRNA (ctmqkcd-cwyc-ljmcc) vax 09/15/21 Given SARS-CoV-2 (COVID-19) mRNA BNT-162b2 [...] 03/16/22 13:10:00 EST, 02/16/22 13:10:00 EST, Tablet, [facility], Partial greyson... Start Date: 02/16/22 Stop [...] needed for anxiety and 1tab at HS urqrzn-mop-boajj, # 60 tablet, 11 Refills, Maintenance, 09/15/21 [...] 11 Refills, Maintenance, 04/21/21 18:12:00 EST, Tablet, [facility]/pharmacy #1026, 160, cm, 03/03/21 11:23:00 EST, [...] 04/28/21 14:34:00 EST, Route to Pharmacy Electronically, [facility]/pharmacy #1026, Can use with HCTZ, 160, [...] capsule, 3 Refills, Maintenance, 11/19/21 14:28:00 EDT, [facility]/pharmacy #1026, 160, cm, 11/05/21 9:50:00 EDT, [...] LOS HDZ, # 90 tablet, 1 Refills, [facility], 90, TOME GAGE TABLETA POR VIA ORAL [...] capsule, 11 Refills, Maintenance, 04/28/21 14:00:00 EST, [facility]/pharmacy #1026, Discontinue pantoprazole, 160, cm, 04/28/21 [...] 09/21/21 9:23:00 EDT, Route to Pharmacy Electronically, [facility], Partial fill upon patient request if [...] #1026, 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 Start Date: 01/17/22 Status: Ordered Qzi-fcp-lfojp medical-grade oxford diabetic shoes, depth or hightop Tyl-bgi-kzmyn medical-grade oxford diabetic shoes, depth or hightop, See Instructions, # 1 each, Refills 0, Tot. 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 Start Date: 07/21/21 Status: Ordered Pen [place], 32 G x 4 mm BD Ultra [...] the same time every day Given by Dry Mop Maker, Dr. Michael Berkowitz, # 60 each, 0 Refills, Maintenance, 07/21/21 11:59:00 EDT, Powder, Partial fill upon patient request if the prescription is for a schedule II opi... Start Date: 07/21/21 Status: Ordered Tresiba FlexTouch 200 units/mL subcutaneous solution See Instructions, INJECT 86 UNITS DAILY AT 9PM, # 45 Unknown, 6 Refills, [facility], 160, cm, 06/21/21 9:57:00 EDT, Height, 80.6, kg, 06/03/20 19:00:00 EST, Dry Weight Start Date: 06/22/21 Status: Ordered Ventolin HFA 108 mcg/inh inhalation aerosol with adapter 2 puffs, Inhalation, 4 times a day, PRN Wheezing/Shortness of Breath, dispense when patient requestit, # 18 Gm, 5 Refills, Maintenance, 11/09/20 12:36:00 EDT, [facility]/pharmacy #1026, 160, cm, 10/22/20 9:15:00 EDT, Height, 80.6, kg, 06/03/20 19:00:00 EST,... 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 06/16/08 SURGEON: Danny Marie M.D. AUDIO INSTALLER: Naima Bowling M.D. 22b/l submassive PE diagnosed on Dec 20 in [facility] 23TTE 12/22/15 in [facility]: RV dilatation, RVSP 46 24Per ECHO 05/24/17 Trace mitral regurgitation , trace TC regurgitation w no significant valve pathology 25meg colo July 2009 exc for 2 hyperplastic polyps 26Colonoscopy 2004 at [facility] [place] per letter of Dr Amor Dobbins Social [...] Primary Care Nurse Name: Kelley RNVirginia Position: [facility] RN Member Role: Primary Care Nurse Name: Jaylin Hernandez RN Position: [facility] Onco RN Member Role: Primary Care Nurse Name: Glen Cota MD Position: [facility] Renal MD Member Role: Lifetime Consulting Physician Address: Address: [address] [place] [address] [facility] [address] Name: Florinda Trinh MD Position: [facility] Primary Care Physician Member Role: PCP Address: Address: [address] [place] [address] Care Team Related Persons Name: JOSE ELIAS TODD Address: [place] [address] Name: JOSE ELIAS KIRKLAND Address: home [address] [place] [address] Name: LEONIE SCHRADER Address: [place] [address]
--- OUTSIDE RECORDS SUMMARY | 2023-10-23 09:44 | XMS_ITS | Continuity of Care Document ---
Author Organization [facility] Address [address] [place] [address]- Care Team Providers Care Refractory Technician Name Role Phone Gayathri GARZA, Florinda Primary Care Physician Encounter [facility] Date(s): 02/14/20 - 03/25/20 [facility] [address] [place] [id number] Attending Physician: Brianne Hernandez Admitting Physician: Brianne Hernandez Referring Physician: Florinda Trinh MD Allergies, Adverse [...] 10 11/10/10 Given pneumococcal 23-valent vaccine 11 2/10/05 Given tetanus-diphtheria toxoids (Td) 12 11/10/10 Given 1Result Comment: [03/04/2015] ORDERED BY DR. HAWK 2Admin Note: vis 11/02/2010 3Admin Note: given by ELLIOTT HEWITT. 4Admin Note: MELISSA CHIU, HEIDY 5Admin Note: administered by melissa chiu 6Admin Note: ADMINISTERED BY R.NLizbet 7Result [...] or fever, (not to exceed 2000 mg/day) czech, # 100 tablet, 5 Refills, Maintenance, 01/22/20 [...] tablet, 11 Refills, Maintenance, 01/26/2019:13:00 EDT, Tablet, [facility]/pharmacy #1026, 2 tablet By Mouth 2 [...] Maintenance, 01/27/20 19:13:00 EDT, EC Capsule, [facility]/pharmacy #1026, 167, cm, 01/13/20 8:54:00 EDT, Height, 78.8, kg, 01/01/20 3:41:00 EDT, Dry Weight Start Date: 01/27/20 Status: Ordered Eliquis 5 mg oral tablet 1 tablet = 5 mg, By Mouth, 2 times a day, # 60 tablet, 11 Refills, Maintenance, 02/10/20 11:22:00 EST, Tablet, [facility]/pharmacy #1026, 167, cm, 01/13/20 8:54:00 EDT, Height, 78.8, kg, 01/01/20 3:41:00 EDT, Dry Weight Start Date: 02/10/20 Status: Ordered famotidine 40 mg oral tablet 1 tablet = 40 mg, By Mouth, Daily at bedtime, If 40 mg tablet is not available, can change to 20 mgtablet 2 tablet at bedtime, # 30 tablet, 2 Refills, Maintenance, 01/22/20 9:37:00 EDT, Tablet, [facility]/pharmacy #1026, 167, cm, 01/13/20 8:54:00 EDT, [...] 9:41:00 EDT, Route to Pharmacy Electronically, [facility]/pharmacy #1026, 167, cm, 01/13/20 8:54:00 EDT, Height, 78... Start Date: 01/22/20 Status: Ordered NovoLOG FlexPen 100 units/mL subcutaneous solution See Instructions, Inject up to 26 untis via Insulin sliding scale 3x a day w/meals,MAX daily dose 78 units, E11.65, # 45 mL, 6 Refills, Maintenance, 01/21/20 14:30:00 EDT, [facility]/pharmacy #1026, 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 Start Date: 01/21/20 Status: Ordered Drs-woz-jxwlk medical-grade oxford diabetic shoes, depth or hightop Dbr-buh-ahvdq medical-grade oxford diabetic shoes, depth or hightop, [...] 03/18/20 10:25:00 EST, Route to Pharmacy Electronically, [facility]/pharmacy #1... Start Date: 03/18/20 Stop Date: 04/15/20 Status: Ordered oxyCODONE 5 mg oral tablet 5 mg, 1, tablet, By Mouth, Every 4 hours, for 28 days, PRN pain dispense not earlier than 04/15/20 3 of 3, # 168 tablet, Refills 0, Tot. Refills 0, Acute 05/13/20 10:25:00 EST, 04/15/20 10:25:00 EST, Route to Pharmacy Electronically, [facility]/pharmacy #10... Start Date: 04/15/20 Stop Date: 05/13/20 Status: Ordered Pen [place], 32 G x 4 mm BD [...] 11:22:00 EST, Route to Pharmacy Electronically, [facility]/pharmacy #1026 Tablet, 167, cm, 01/13/20 8:5... [...] 01/22/20 9:43:00 EDT, Route to Pharmacy Electronically, [facility]/pharmacy #1026, 167,... Start Date: 01/22/20 Status: Ordered TENS electrode pads TENS electrode pads, See Instructions, # 1 box, Refills 5, Tot. Refills 5, Maintenance, use as directed for back pain Dx LBP M54.9 1 box of 4, 12/06/16 14:59:01, Compound Start Date: 12/06/16 Status: Ordered Trelegy Ellipta inhalation powder 1 puffs, Inhalation, Daily, at the same time every day given by box lining machine operator , Dr Berkowitz, # 60 [...] Dry Weight Start Date: 01/22/20 Status: Ordered [place] Reusable Bed Pad 34 x 36 [place] Reusable Bed Pad 34 x 36 , [...] abnormal(Confirmed) 11 12/29/11 Active Hepatitis C(Confirmed) Active shelter current use of opi ate analgesic-LBP(Confirmed) 12 Active Hypercholesterolemia(Confirmed) Active Hyperparathyroidism s/p righ t lower parathyroidectomy 06/16/2008(Confirmed) Active Hypertension(Confirmed) Active Hysterectomy(Confirmed) Active Incontinence of urine(Confirmed) Active Iron deficiency anemia(Confirmed) Active Left ventricular hypertrophy(Confirmed) 13 Active Memory impairment(Confirmed) Active Mitral regurgitation(Confirmed) 14 05/24/17 Active Nephrolithiasis(Confirmed) 15, 16, 17 06/11/02 Active Obesity(Confirmed) Active JENNIFER (obstructive sleep apnea)(Confirmed) Active Osteopenia(Confirmed) 18, 19 11/16/12 Active *[id number] Care Partn Karine Pelham(Confirmed) Active Peripheral venous insufficiency(Confirmed) 10/31/11 Active Positive [...] 1 11left mild sensorineural hearing loss by [facility] Hearing Evaluation on 12/29/11 12Narcotic contract [...] lower parathyroidectomy. 06/16/08 SURGEON: Danny Marie M.D. PHLEBOTOMY DIRECTOR: Naima Bowling M.D. 21b/l submassive PE diagnosed on Dec 20 in [facility] 22TTE 12/22/15 in [facility]: RV dilatation, RVSP 46 23Per ECHO 05/24/17 Trace mitral regurgitation , trace TC regurgitation w no significant valve pathology 24meg colo July 2009 exc for 2 hyperplastic polyps 25Colonoscopy 2004 at [facility] [place] per letter of Dr Amor Dobbins Social History Social History Type Response Smoking Status Never (less than 100 in lifetime) entered on: 12/25/19 Sex
--- OUTSIDE RECORDS SUMMARY | 2023-10-23 09:45 | XMS_ITS | Continuity of Care Document ---
Author Organization [facility] Address [address] [place] [address]- Care Team Providers Care Appeals Manager Name Role Phone Gayathri GARZA, Florinda Primary Care Physician Encounter [facility] Date(s): 05/01/20 - 05/31/20 [facility] [address] [place] [address]- Allergies, Adverse Reactions, Alerts Substance Reaction Severity [...] or fever, (not to exceed 2000 mg/day) macanese, # 100 tablet, 5 Refills, Maintenance, 01/22/20 [...] 01/21/21 19:13:00 EDT, 01/27/20 19:13:00 EDT, Tablet, [facility]/pharmacy #1026, 167, cm, 01/13/20 8:54:00 EDT, Height, 78.8, kg, 01/01/20 3:41:00 EDT, Dry... Start Date: 01/27/20 Stop Date: 01/21/21 Status: Ordered capsaicin 0.025% topical cream 1 application, Topically, 3 times a day, # 90 Gm, 11 Refills, Maintenance, 02/10/20 11:22:00 EST, Cream, [facility]/pharmacy #1026, 1 application Topically 3 [...] Refills, Maintenance, 01/27/20 19:13:00 EDT, EC Capsule, [facility]/pharmacy #1026, 167, cm, 01/13/20 8:54:00 EDT, Height, 78.8, kg, 01/01/20 3:41:00 EDT, Dry Weight Start Date: 01/27/20 Status: Ordered Eliquis 5 mg oral tablet 1 tablet = 5 mg, By Mouth, 2 times a day, # 60 tablet, 11 Refills, Maintenance, 02/10/20 11:22:00 EST, Tablet, [facility]/pharmacy #1026, 167, cm, 01/13/20 8:54:00 EDT, Height, 78.8, kg, 01/01/20 3:41:00 EDT, Dry Weight Start Date: 02/10/20 Status: Ordered enalapril 10 mg oral tablet 10 mg, 1, tablet, By Mouth, Daily, discontinue hydrochlorothiazide, # 30 tablet, Refills 11, Tot. Refills 11, Maintenance, 04/29/20 13:04:00 EST, Route to Pharmacy Electronically, [facility]/pharmacy #1026,167, cm, 04/29/20 9:24:00 EST, Height, 82, kg, ... Start Date: 04/29/20 Status: Ordered famotidine 40 mg oral tablet 1 tablet = 40 mg, By Mouth, Daily at bedtime, If 40 mg tablet is not available, can change to 20 mgtablet 2 tablet at bedtime, # 30 tablet, 2 Refills, Maintenance, 04/04/20 16:07:00 EST, Tablet, [facility]/pharmacy #1026, 167, cm, 02/24/20 17:04:00 EST, Hei... Start Date: 04/04/20 Status: Ordered ferrous sulfate 325 mg oral tablet 1 tablet = 325 mg, By Mouth, Daily, May take with food to minimize abdominal discomfort. Do not take with milk. Take preferrably with juice., # 90 tablet, 2 Refills, Maintenance, 01/22/20 9:38:00 EDT, [facility]/pharmacy #1026, 167, cm, 01/13/20 8:54:00 [...] capsule, 4 Refills, Maintenance, 01/22/20 9:39:00 EDT, [facility]/pharmacy #1026, 167, cm, 01/13/20 8:54:00 EDT, Height, 78.8, kg, 01/01/20 3:41:00 EDT, Dry Weight Start Date: 01/22/20 Stop Date: 06/20/20 Status: Ordered ketotifen 0.025% ophthalmic solution 1 drops, Eyes, Both, Every 12 hours, PRN as needed for eye allergy, # 7.5 mL, 11 Refills, Maintenance, 01/27/20 19:13:00 EDT, [facility]/pharmacy #1026, 1 drops Eyes, Both [...] 01/22/20 9:41:00 EDT, Route to Pharmacy Electronically, [facility]/pharmacy #1026, 167, cm, 01/13/20 8:54:00 EDT, Height, 78... Start Date: 01/22/20 Status: Ordered NovoLOG FlexPen 100 units/mL subcutaneous solution See Instructions, Inject up to 26 untis via Insulin sliding scale 3x a day w/meals,MAX daily dose 78 units, E11.65, # 45 mL, 6 Refills, Maintenance, 01/21/20 14:30:00 EDT, [facility]/pharmacy #1026, 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 Start Date: 01/21/20 Status: Ordered Sdg-cef-zvncx medical-grade oxford diabetic shoes, depth or hightop Yca-hqm-jiwpi medical-grade oxford diabetic shoes, depth or hightop, [...] EST, 05/15/20 10:25:00 EST, Route toPharmacy Electronically, [facility]/pharmacy #1026, Parti... Start Date: 05/15/20 Stop Date: 06/12/20 Status: Ordered oxyCODONE 5 mg oral tablet 5 mg, 1, tablet, By Mouth, Every 4 hours, for 28 days, PRN pain dispense not earlier than 06/12/20, #168 tablet, Refills 0, Tot. Refills 0, Acute 07/10/20 10:25:00 EDT, 06/12/20 10:25:00 EST, Route toPharmacy Electronically, [facility]/pharmacy #1026, Parti... Start Date: 06/12/20 Stop Date: 07/10/20 Status: Ordered oxyCODONE 5 mg oral tablet 5 mg, 1, tablet, By Mouth, Every 4 hours, for 28 days, PRN pain dispense not earlier than 07/10/20, #168 tablet, Refills 0, Tot. Refills 0, Acute 08/07/20 10:25:00 EDT, 07/10/20 10:25:00 EDT, Route toPharmacy Electronically, [facility]/pharmacy #1026, Parti... Start Date: 07/10/20 Stop Date: 08/07/20 Status: Ordered Pen [place], 32 G x 4 mm BD Ultra [...] 527 Gm,11 Refills, Maintenance, 01/27/20 19:13:00 EDT, [facility]/pharmacy #1026, 17- 34 Gm By [...] 02/10/20 11:22:00 EST, Route to Pharmacy Electronically, [facility]/pharmacy #1026 Tablet, 167, cm, 01/13/20 [...] 05/01/20 9:28:00 EST, Route to Pharmacy Electronically, [facility]/pharmacy #1026, 167,... Start Date: 05/01/20 Status: Ordered TENS electrode pads TENS electrode pads, See Instructions, # 1 box, Refills 5, Tot. Refills 5, Maintenance, use as directed for back pain Dx LBP M54.9 1 box of 4, 12/06/16 14:59:01, Compound Start Date: 12/06/16 Status: Ordered Trelegy Ellipta inhalation powder 1 puffs, Inhalation, Daily, at the same time every day given by pediatric radiologist , Dr Brekowitz, # 60 each, 0 Refills, Maintenance, 11/20/19 [...] tablet, 1 Refills, Maintenance, 04/15/20 12:22:00 EST, [facility]/pharmacy #1026, 167, cm, 04/13/20 10:16:00 EST, Height, 78.8, kg, 01/01/20 3:41:00 EDT, Dry Weight Start Date: 04/15/20 Status: Ordered [place] Reusable Bed Pad 34 x 36 [place] Reusable Bed Pad 34 x 36 , [...] abnormal(Confirmed) 11 12/29/11 Active Hepatitis C(Confirmed) Active group home current use of opi ate analgesic-LBP(Confirmed) [...] apnea)(Confirmed) Active Osteopenia(Confirmed) 18, 19 11/16/12 Active *[id number] Care Partn igor More(Confirmed) Active Peripheral venous [...] 2 peroneal veins diagnosed on Dec 20 [facility] 6insulin dependent 7Per ECHO 05/24/1718 [...] 1 11left mild sensorineural hearing loss by [facility] Hearing Evaluation on 12/29/11 12Narcotic contract [...] lower parathyroidectomy. 06/16/08 SURGEON: Danny Marie M.D. KEG FILLER: Naima Bowling M.D. 21b/l submassive PE diagnosed on Dec 20 in [facility] 22TTE 12/22/15 in [facility]: RV dilatation, RVSP 46 23Per ECHO 05/24/17 Trace mitral regurgitation , trace TC regurgitation w no significant valve pathology 24meg colo July 2009 exc for 2 hyperplastic polyps 25Colonoscopy 2004 at [facility] [place] per letter of Dr Amor Dobbins Social History Social History Type Response Smoking Status Never (less than 100 in lifetime) entered on: 04/29/20 Sex
--- OUTSIDE RECORDS SUMMARY | 2023-10-23 09:45 | XMS_ITS | Continuity of Care Document ---
Author Organization [facility] Address [address] [place] [address]- Care Team Providers Care Visual Lead Name Role Phone Florinda Trinh MD Primary Care Physician [place] [facility] [place]): 02/[place] - 03/13/[address] [address] Attending Physician: Yaya Patino Admitting Physician: Yaya [...] by melissa craft 6Admin Note: ADMINISTERED BY Jason 7Result Comment: Masood RUVALCABA RN 8Result Comment: [...] exceed 2000 mg/day) armenian, # 100 tablet, 11 Refills, Maintenance, 08/14/20 10:13:00 EDT, [facility]/pharmacy #1026, 160, cm, 08/14/20 9:34:00 EDT, [...] 11 Refills, Maintenance, 01/18/21 18:00:00 EDT, Tablet, [facility], 160, cm, 10/22/20 9:15:00 EDT, [...] 78.8, kg,... Start Date: 01/21/20 Status: Ordered Csq-biw-rxyzb medical-grade oxford diabetic shoes, depth or hightop Wmg-kgq-kjqbz medical-grade oxford diabetic shoes, depth or hightop, [...] to oxycodone 10 mg 0.5 tablets 4 [id number] days for 84 tablets, # 168 tablet, Refills 0,... Start Date: 02/19/21 Stop Date: 03/19/21 Status: Ordered oxyCODONE 5 mg oral tablet 5 mg, 1, tablet, By Mouth, Every 4 hours, for 28 days, PRN pain dispense not earlier than 03/19/21 If oxycodone 5 mg tablet is not available, it can be switched to oxycodone 10 mg 0.5 tablets 4 [id number] days for 84 tablets, # 168 tablet, [...] 04/16/21 Stop Date: 05/14/21 Status: Ordered Pen [place], 32 G x 4 mm BD Ultra Fine III See Instructions, # 360 each, Refills 3, Tot. Refills 3, Maintenance, Use as directed for insulin use 4 times a day DX IDDM; 90 days, 02/01/21 10:40:00 EDT, Compound, 160, cm, 01/28/21 13:05:00 EDT, Height, 80.6, kg, 06/03/20 19:00:00 Faby SOLORZANO.. Start Date: 02/01/21 Status: Ordered PLEASE DO [...] 527 Gm,11 Refills, Maintenance, 01/27/20 19:13:00 EDT, [facility]/pharmacy #1026, 17- 34 Gm By Mouth [...] HDZ, # 30 tablet, 5 Refills, Maintenance, [facility], 160, cm, 10/22/20 9:15:00 EDT, Height, 80.6, kg, 06/03/20 19:00:00 EST, Dry Weight Start Date: 11/13/20 Status: Ordered Senna 8.6 mg oral tablet 17.2 mg, 2, tablet, By Mouth, 2 times a day, PRN, discontinue docusate, # 60 tablet, Refills 11, Tot. Refills 11, Maintenance, for constipation, 02/10/20 11:22:00 EST, Route to Pharmacy Electronically, [facility]/pharmacy #1026 Tablet, 167, cm, 01/13/20 8:5... [...] 02/22/21 17:50:00 EST, Route to Pharmacy Electronically, [facility]/pharmacy #1026, 1... Start Date: 02/22/21 Status: [...] 02/15/21 11:39:00 EST, Route to Pharmacy Electronically, [facility]/pharmacy #1026,Partial fill upon patient request if the prescrip... Start Date: 02/15/21 Stop Date: 03/29/21 Status: Ordered Trelegy Ellipta inhalation powder 1 puffs, Inhalation, Daily, at the same time every day given by x ray service engineer , Dr Berkowitz, # 60 each, [...] Date: 02/15/21 Stop Date: 05/10/21 Status: Ordered [place] Reusable Bed Pad 34 x 36 [place] Reusable Bed Pad 34 x 36 , [...] apnea)(Confirmed) Active Osteopenia(Confirmed) 18, 19 11/16/12 Active *[id number] Care Partn igor More(Confirmed) Active Peripheral venous [...] 2 peroneal veins diagnosed on Dec 20 [facility] 6insulin dependent 7Per ECHO 05/24/1718 [...] 1 11left mild sensorineural hearing loss by [facility] Hearing Evaluation on 12/29/11 12Narcotic [...] lower parathyroidectomy. 06/16/08 SURGEON: Danny Marie M.D. TOP COATER: Naima Bowling M.D. 21b/l submassive PE diagnosed on Dec 20 in [facility] 22TTE 12/22/15 in [facility]: RV dilatation, RVSP 46 23Per ECHO 05/24/17 Trace mitral regurgitation , trace TC regurgitation w no significant valve pathology 24meg colo July 2009 exc for 2 hyperplastic polyps 25Colonoscopy 2004 at [facility] [place] per letter of Dr Amor Dobbins Social History Social History Type Response Smoking Status Never (less than 100 in lifetime) entered on: 10/22/20 Sex
--- OUTSIDE RECORDS SUMMARY | 2023-10-23 09:45 | XMS_ITS | Continuity of Care Document ---
Author Organization [facility] Address [address] [place] [id number]- Care Team Providers Care Athletic Equipment Manager Name Role Phone Florinda Trinh MD Primary Care Physician En[place] [facility] Date(s): 06/21/22 - 10/08/22 [facility] [address] [address]- Attending Physician: Florinda Trinh MD Admitting Physician: Florinda Trinh MD Allergies, Adverse Reactions, Alerts Substance Reaction Severity Status enalapril Active penicillin RASH Active morphine itchy Active Bactrim 1 hyperkalemia Active Lidocaine, Topical Active 1Hyperkalemia when used together with lisinopril Immunizations Given and Recorded Vaccine Date Status Refusal Reason [id number] 12y+ bivalent booster vax 05/25/22 Given influenza [...] zoster vaccine, inactivated 09/15/21 Given SARS-CoV-2 mRNA (nuxesgj-bcyn-dpxnc) vax 09/15/21 Given SARS-CoV-2 (COVID-19) mRNA BNT-162b2 [...] Maintenance, 05/25/22 12:08:00 EST, ER Tablet, [id number], Discontinue Motrin, 158, cm, 05/25/22 11:12:00... Start [...] Gm, 11 Refills, Maintenance, 07/21/21 12:43:00 EDT, [facility]/pharmacy #1026, 1 applicator Topically 2 [...] Biotene Moisturizing Mouth oral spray See Instructions, [place] directly into mouth; spray is safe to [...] Refills, Maintenance, 08/05/22 12:49:00 EDT, [facility], 158, cm, 07/12/22 11:54:00 EDT, Height, 76, kg, 05/07/22 6:04:00 ES... Start Date: 08/05/22 Status: Ordered capsaicin 0.025% topical cream 1 application, Topically, 3 times a day, # 35 Gm, 11 Refills, Maintenance, 07/21/21 12:26:00 EDT, Cream, [facility]/pharmacy #1026, 1 application [...] Refills, Maintenance, 12/06/21 15:04:00 EDT, Tablet, [facility], Partial fill upon patient request if the prescription is for a schedule II opioid drug., 160, cm, 11/23/21 14:47:00 ED... Start Date: 12/06/21 Status: Ordered esomeprazole 40 mg oral enteric coated capsule See Instructions, TAKE 1 CAPSULE BY MOUTH DAILY 30 MINUTES BEFORE BREAKFAST, # 30 capsule, 2 Refills, Maintenance, 08/05/22 12:49:00 EDT, [facility] STORE 93010, 158, cm, 07/12/22 11:54:00 EDT, Height, 76, kg, 05/07/22 6:04:00 EST, Dry Weight Start Date: 08/05/22 Status: Ordered famotidine 40 mg oral tablet 1 tablet = 40 mg, By Mouth, Daily at bedtime, If 40 mg tablet is not available, can be changed to 20 mg tablet 2 tablet at bedtime, # 90 tablet, 3 Refills, Maintenance, 07/12/21 18:53:00 EDT, Tablet,[facility]/pharmacy #1026, Discontinue 30- day supply presc... Start Date: 07/12/21 Stop Date: 07/07/22 Status: Ordered ferrous sulfate 325 mg oral tablet 1 tablet = 325 mg, By Mouth, Daily, May take with food to minimize abdominal discomfort. Do not take with milk. Take preferrably with juice., # 90 tablet, 3 Refills, Maintenance, 09/15/21 8:56:00 EDT, [facility]/pharmacy #1026, 160, cm, 09/15/21 8:15:00 EDT,... [...] tablet, 0 Refills, Maintenance, 07/08/22 9:47:00 EDT, [facility] ST[facility] 60543, 158, cm, 06/16/22 11:27:00 EST, Height, 76, kg, 05/07/22 6:04:00 EST, Dry Weight Start Date: 07/08/22 Status: Ordered ketotifen 0.025% ophthalmic solution 1 drops, Eyes, Both, Every 12 hours, PRN as needed for eye allergy, # 7.5 mL, 11 Refills, Maintenance, 06/25/21 8:34:00 EDT, [facility]/pharmacy #1026, 1 drops Eyes, Both [...] 90 tablet, 3 Refills, 03/09/22 11:57:00 EST, [facility]/pharmacy #0838, 1 tablet By Mouth Daily before dinner,PRN:allergies, 160, cm, 03/09/22 10:43:00 EST, Height, 78, kg, 01/14/22 19:37:00 ED... Start Date: 03/09/22 Status: Ordered montelukast 10 mg oral tablet 10 mg, 1, tablet, By Mouth, Daily at bedtime, # 90 tablet, Refills 3, Tot. Refills 3, Maintenance, 03/09/22 11:37:00 EST, Route to Pharmacy Electronically, [facility]/pharmacy #0838, 160, cm, 03/09/22 10:43:00 EST, Height, 78, kg, 01/14/22 19:37:00 EDT, Dry... Start Date: 03/09/22 Stop Date: 03/04/23 Status: Ordered Norvasc 5 mg oral tablet 5 mg, 1, tablet, By Mouth, Daily, # 90 tablet, Refills 3, Tot. Refills 3, Maintenance, 03/09/22 11:54:00 EST, Route to Pharmacy Electronically, [facility]/pharmacy #0838, 160, cm, 03/09/22 10:43:00 [...] mL, 3 Refills, Maintenance, 03/09/22 17:15:00 EST, [facility]/pharmacy #0838, 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 Start Date: 03/09/22 Status: Ordered Jas-jnz-jbdkq medical-grade oxford diabetic shoes, depth or hightop Mzg-aby-iovtd medical-grade oxford diabetic shoes, depth or hightop, [...] tablet, 2 Refills, Maintenance, 03/09/2211:40:00 EST, Tablet, [facility]/pharmacy #0838, 160, cm, 03/09/22 10:43:00 EST, Height, 78, kg, 01/14/22 19:37:00 EDT, Dry Weight Start Date: 03/09/22 Status: Ordered Pen [place], 32 G x 4 mm BD Ultra [...] the same time every day Given by Direct Support Staff Member, Dr. Michael Berkowitz, # 60 each, 0 [...] Date: 03/09/22 Stop Date: 06/01/22 Status: Ordered [place] Reusable Bed Pad 34 x 36 [place] Reusable Bed Pad 34 x 36 , [...] Confirmed 12/29/11 Active Hepatitis C Confirmed Active terminal carman current use of opiate analgesic-LBP 12 Confirmed [...] Osteopenia 18, 19, 20 Confirmed 11/16/12 Active *[phone] Advertising Assistant Manager Karine More Confirmed Active Peripheral venous [...] 2 peroneal veins diagnosed on Dec 20 [facility] 6insulin dependent 7Per ECHO [...] lower parathyroidectomy. 06/16/08 SURGEON: Danny Marie M.D. GLASS SCULLION: Naima Bowling M.D. 22b/l submassive PE diagnosed on Dec 20 in [facility] 23TTE 12/22/15 in [facility]: RV dilatation, RVSP 46 24Per ECHO 05/24/17 Trace mitral regurgitation , trace TC regurgitation w no significant valve pathology 25meg colo July 2009 exc for 2 hyperplastic polyps 26Colonoscopy 2004 at [facility] [place] per letter of Dr Amor Dobbins Social History Social History Type Response Smoking Status Never (less than 100 in lifetime) entered on: 10/22/20 Sex Patient Care team information Care Team Personnel Name: Diamond Weiss RN Position: S RN [...] Member Role: Lifetime Consulting Physician Address: Address: [address] [place] [address] [facility] [address] Name: Florinda Trinh MD Position: [facility] Physician - Primary Care Member Role: PCP Address: Address: [address] [place] [address] Care Team Related Persons Name: JOSE ELIAS TODD Address: [place] [address] Name: JOSE ELIAS KIRKLAND Address: home [address] [place] [id number] Name: LEONIE SCHRADER Address: [place] [address]
--- OUTSIDE RECORDS SUMMARY | 2023-10-23 09:45 | XMS_ITS | Continuity of Care Document ---
Author Organization [facility] Address [address] [place] [address]- Care Team Providers Care Firer Electric Locomotive Name Role Phone Massimo Figueroa Primary Care Physician Encounter [facility] Date(s): 03/21/23 - 04/20/23 [facility] [place] [address]- [place] Allergies, Adverse Reactions, Alerts Substance Reaction [...] virus vaccine, inactivated 6 05/06/04 Gi zeny [id number] 12y+ bivalent booster vax 05/25/22 Given zoster vaccine, inactivated 12/08/21 Given zoster vaccine, inactivated 09/15/21 Given SARS-CoV-2 mRNA (buqgojt-mzrr-lqshu) vax 09/15/21 Given SARS-CoV-2 (COVID-19) mRNA BNT-162b2 [...] Maintenance, 05/25/22 12:08:00 EST, ER Tablet, [facility], Discontinue Motrin, 158, cm, 05/25/22 11:12:00... Start [...] Moisturizing Mouth oral spray See Instructions, [place] directly into mouth; spray is safe to [...] P.M. NEEDED & [facility], # [facility] tablet, 1 Refills, Maintenance, 08/05/22 12:49:00 EDT, [facility], 158, cm, 07/12/22 11:54:00 EDT, Height, 76, [...] 11 Refills, Maintenance, 12/06/21 15:04:00 EDT, Tablet, [facility], Partial fill upon patient [...] Refills, Maintenance, 07/08/22 9:47:00 EDT, [facility], 158, cm, 06/16/22 11:27:00 EST, Height, 76, kg, 05/07/22 6:04:00 EST, Dry Weight Start Date: 07/08/22 Status: Ordered ketotifen 0.025% ophthalmic solution 1 drops, Eyes, Both, Every 12 hours, PRN as needed for eye allergy, # 7.5 mL, 11 Refills, Maintenance, 06/25/21 8:34:00 EDT, [facility]/pharmacy #1026, 1 drops Eyes, Both [...] # 15... 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 06/16/08 SURGEON: Danny Marie M.D. MECHANICAL ENGINEERING DIRECTOR: Naima Bowling M.D. 22b/l submassive PE diagnosed on Dec 20 in [facility] 23TTE 12/22/15 in [facility]: RV dilatation, RVSP 46 24Per ECHO 05/24/17 Trace mitral regurgitation , trace TC regurgitation w no significant valve pathology 25meg colo July 2009 exc for 2 hyperplastic polyps 26Colonoscopy 2004 at [facility] [place] per letter of Dr Amor Dobbins Social History Social History Type Response Smoking Status Never (less than 100 in lifetime) entered on: 10/22/20 Sex Patient Care team information Care Team Personnel Name: Massimo Figueroa Position: [facility] Outreach Member Role: PCP Address: Address: [address] [place] [address]- Name: Diamond Weiss RN Position: [facility] RN Member Role: Primary Care Nurse Name: Tiara Cavazos RN Position: [facility] OB RN Member Role: Primary Care Nurse Name: Shreya Boss RN Position: [facility] RN Member Role: Primary Care Nurse Name: Dhruv Khan RN Position: [facility] RN Member Role: Primary Care Nurse Name: Virginia Benson RN Position: [facility] SN RN Member Role: Primary Care Nurse Name: Mary RN, Jaylin Position: [facility] Onco RN Member Role: Primary Care Nurse Name: Glen Cota MD Position: [facility] Renal MD Member Role: Lifetime Consulting Physician Address: Address: [address] [place] [address] [facility] [address] Name: Carole Toro LPN Position: S RN Member Role: Primary Care Nurse Care Team Related Persons Name: JOSE ELIAS TODD Address: [place] [address] Name: JOSE ELIAS KIRKLAND Address: home [address] [place] [id number] Name: LEONIE SCHRADER Address: [place] [address]
--- OUTSIDE RECORDS SUMMARY | 2023-10-23 09:45 | XMS_ITS | Continuity of Care Document ---
Author Organization [facility] Address [address] [place] [address]- Care Team Providers Care Rush Seater Name Role Phone Florinda Trinh MD Primary Care Physician Encounter [facility] Date(s): 04/25/19 - 05/02/19 [facility] [address] [place] [address]- [facility] Encounter Diagnosis Mouth sore(Discharge Diagnosis) - 04/25/19 Attending Physician: Jamaal Aldana MD Referring Physician: Florinda Trinh MD Allergies, [...] afghan, # 100 tablet, 11 Refills, Maintenance, 01/16/19 [...] Status: Ordered BD UF SHANNAN PEN NEEDLE [id number] BD UF SHANNAN PEN NEEDLE [id number], 0 Refills, Maintenance, 07/26/18 13:34:55 EDT Start [...] Refills, Maintenance, 03/27/19 9:10:00 EST, EC Capsule, [facility], 159, cm, 03/20/19 14:59:00 EST, Height, 88.3, kg, 12/13/18 10:17:00 EDT, Dry Weight Start Date: 03/27/19 Status: Ordered enalapril 10 mg oral tablet 10 mg, 1, tablet, By Mouth, Daily, 90 days, # 90 tablet, Refills 3, Tot. Refills 3, Maintenance, 09/19/18 15:15:30 EDT, Route to Pharmacy Electronically, [id number], [facility] Start Date: 09/19/18 Status: Ordered famotidine 40 mg oral tablet 1 tablet = 40 mg, By Mouth, Daily at bedtime, If 40 mg tablet is not available, can change to 20 mgtablet 2 tablet at bedtime, # 30 tablet, 5 Refills, Maintenance, 04/17/19 9:17:00 EST, Tablet, [facility], 159, cm, 04/17/19 8:24:0... Start Date: 04/17/19 [...] Maintenance,01/16/19 8:53:58 EDT, Route to Pharmacy Electronically, [id number], [facility] Start Date: 01/16/19 Stop Date: 01/11/20 Status: [...] 01/16/19 8:53:23 EDT, Route to Pharmacy Electronically, [id number], [facility]... Start Date: 01/16/19 [...] EDT, DxE11.65 Start Date: 07/20/18 Status: Ordered Eyy-mcq-ggixa medical-grade oxford diabetic shoes, depth or hightop Uck-dio-akron medical-grade oxford diabetic shoes, depth or hightop, See Instructions, # 1 pair, Refills 0, Tot. 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 Start Date: 09/19/18 Status: Ordered Orajel 10% gel 1 application, Topically, 4 times a day, to affected area as directed before meals, # 10 Gm, 0 Refills, Acute 05/03/19 16:24:00 EST, 04/25/19 16:24:00 EST, Gel, [facility]/pharmacy #[id number], 1 application Topically 4 times a day,Instr:to affected area as direct... Start Date: 04/25/19 Stop Date: 05/03/19 Status: Ordered oxyCODONE 5 mg oral tablet 5 mg, 1, tablet, By Mouth, Every 4 hours, for 28 days, dispense not earlier than 05/10/19, # 137 tablet, Refills 0, Tot. Refills 0, Acute 06/07/19 12:47:00 EST, 05/10/19 12:47:00 EST, Route to Pharmacy Electronically, [facility], [place]... Start Date: 05/10/19 Stop Date: 06/07/19 Status: Ordered oxyCODONE 5 mg oral tablet 5 mg, 1, tablet, By Mouth, Every 4 hours, for 28 days, dispense not earlier than 06/07/19, # 137 tablet, Refills 0, Tot. Refills 0, Acute 07/05/19 12:47:00 EDT, 06/07/19 12:47:00 EST, Route to Pharmacy Electronically, [facility], [place]... Start Date: 06/07/19 Stop Date: 07/05/19 Status: Ordered oxyCODONE 5 mg oral tablet 5 mg, 1, tablet, By Mouth, Every 4 hours, for 28 days, dispense not earlier than 07/05/19, # 137 tablet, Refills 0, Tot. Refills 0, Acute 08/02/19 12:47:00 EDT, 07/05/19 12:47:00 EDT, Route to Pharmacy Electronically, [facility], [place]... Start Date: 07/05/19 Stop Date: 08/02/19 Status: Ordered oxyCODONE 5 mg oral tablet 5 mg, 1, tablet, By Mouth, Every 4 hours, for 28 days, dispense not earlier than 04/12/19, # 137 tablet, Refills 0, Tot. Refills 0, Acute 05/10/19 12:47:00 EST, 04/12/19 12:47:00 EST, Route to PharmacyElectronically, [facility], [place]... Start Date: 04/12/19 Stop Date: 05/10/19 Status: Ordered Pen [place], 32 G x 4 mm BD Ultra [...] 10/09/18 8:43:19 EDT, Route to Pharmacy Electronically, [id number] Start Date: 10/09/18 Status: Ordered TENS electrode [...] 15:13:28 EDT Start Date: 09/19/18 Status: Ordered [place] Reusable Bed Pad 34 x 36 [place] Reusable Bed Pad 34 x 36 , [...] abnormal(Confirmed) 9 12/29/11 Active Hepatitis C(Confirmed) Active alf current use of opi ate analgesic-LBP(Confirmed) 10 Active Hypercholesterolemia(Confirmed) Active Hypertension(Confirmed) Active Hysterectomy(Confirmed) Active Incontinence of urine(Confirmed) Active Iron deficiency anemia(Confirmed) Active Left ventricular hypertrophy(Confirmed) 11 Active Memory impairment(Confirmed) Active Mitral regurgitation(Confirmed) 12 05/24/17 Active Nephrolithiasis(Confirmed) 13, 14, 15 06/11/02 Active Obesity(Confirmed) Active JENNIFER (obstructive sleep apnea)(Confirmed) Active Osteopenia(Confirmed) 16, 17 11/16/12 Active *[id number]-[facility] Partn david [place](Confirmed) Active Peripheral [...] diagnosed on Dec 20 [facility] 5insulin dependent 6Per ECHO 05/24/1718 Grade I, mild diastolic dysfunction with impaired LV relaxation, which may be normal for the patient's age. 7EGD on 06/24/16 by GI, Dr Damien caballero gastritis and esophageal varices grade 1 8EGD on 06/24/16 by GI, Dr Damien caballero gastritis and esophageal varices grade 1 9left mild sensorineural hearing loss by [facility] Hearing Evaluation on 12/29/11 10Narcotic contract w [...] lower parathyroidectomy. 06/16/08 SURGEON: Danny Marie M.D. TIMBER PACKER: Naima Bowling M.D. 19b/l submassive PE diagnosed on Dec 20 in [facility] 20TTE 12/22/15 in [facility]: RV dilatation, RVSP 46 21Per ECHO 05/24/17 Trace mitral regurgitation , trace TC regurgitation w no significant valve pathology 22meg colo July 2009 exc for 2 hyperplastic polyps 23Colonoscopy 2004 at [facility] [place] per letter of Dr Amor Dobbins Diagnosis Diagnosis Type Effective Dates Health Status Clini jenna Service Informant Mouth sore Discharge Diagnosis 04/25/19 Vital Signs Most recent to oldest [Reference Range]: 1 Height 159 cm (04/25/19 4:02 PM) Weight 88.1 kg (04/25/19 4:02 PM) Oxygen Saturation [94-100 %] 100 % (04/25/19 4:02 PM) Pulse Rate [55-90 bpm] 69 bpm (04/25/19 4:02 PM) Body Mass Index [18.5-24.99] 34.85 *>HHI* (04/25/19 4:02 PM) Blood Pressure [90-138/55-84 mm Hg] 127/ 60mm Hg (04/25/19 4:02 PM) Respiratory Rate [16-30 br/min] 20 br/mi n (04/25/19 4:02 PM) Temperature [96.8-100.4 DegF] 97.8 DegF (04/25/19 4:02 PM) Mode of Delivery (Oxygen) Room air (04/25/19 4:02 PM) Blood pressure sites Arm, left (04/25/19 4:02 PM) Temperature Route Oral (04/25/19 4:02 PM) Dry Weight 88.1 kg (04/25/19 4:02 PM) Weight Obtained Via Standing scale (04/25/19 4:02 PM) Dry Weight Obtained Via Standing scale (04/25/19 4:02 PM) Social History Social History Type Response Smoking Status Never (less than 100 in lifetime) entered on: 04/17/19 Sex
--- OUTSIDE RECORDS SUMMARY | 2023-10-23 09:45 | XMS_ITS | Continuity of Care Document ---
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 Name Role Phone Gayathri GARZA, Florinda Primary Care Physician Encounter [facility] Date(s): 05/27/22 - 06/26/22 [facility]/[address] [address]- [place] Allergies, Adverse Reactions, Alerts Substance Reaction Severity Status enalapril Active penicillin RASH Active morphine itchy Active Bactrim 1 hyperkalemia Active Lidocaine, Topical Active 1Hyperkalemia when used together with lisinopril Immunizations Given and Recorded Vaccine Date Status Refusal Reason [id number] 12y+ bivalent booster vax 05/25/22 Given influenza [...] zoster vaccine, inactivated 09/15/21 Given SARS-CoV-2 mRNA ([id number]) vax 09/15/21 Given SARS-CoV-2 (COVID-19) mRNA BNT-162b2 [...] by melissa craft 6Admin Note: ADMINISTERED BY R.N. 7Result Comment: [...] Refills, Maintenance, 05/25/22 12:08:00 EST, ER Tablet, [facility]/pharmacy #[id number], Discontinue Motrin, 158, cm, 05/25/22 [...] Gm, 11 Refills, Maintenance, 07/21/21 12:43:00 EDT, [facility]/pharmacy #[id number], 1 applicator Topically 2 times a day, 160, cm, 07/21/21 10:22:00 EDT, Height, 80.6, kg, 06/03/20 19:00:00 EST, Dry Weight Start Date: 07/21/21 Status: Ordered Baqsimi Two Pack 3 mg nasal powder = 3 mg, Naris, Right, Once, Please use for a low blood sugar emergency, may repeat in 15 minutes, #1 each, 3 Refills, Soft Stop, 03/09/22 11:35:00 EST, [facility]/pharmacy #[id number], 160, cm, 03/09/22 10:43:00EST, Height, 78, kg, 01/14/22 19:37:00 EDT, Dry W... Start Date: 03/09/22 Status: Ordered Biotene Moisturizing Mouth oral spray See Instructions, [employer] directly into mouth; spray is safe to swallow as needed for dry mouth, # 45mL, 11 Refills, Maintenance, 05/25/22 12:42:00 EST, [facility]/pharmacy #[id number], Partial fill upon patient request [...] needed for anxiety and 1tab at HS rgyyhz-shw-bxppa, # 60 tablet, 11 Refills, Maintenance, 09/15/21 9:02:00 EDT, [facility]/pharmacy #[id number], Partial fill upon patient request... Start Date: 09/15/21 Status: Ordered capsaicin 0.025% topical cream 1 application, Topically, 3 times a day, # 35 Gm, 11 Refills, Maintenance, 07/21/21 12:26:00 EDT, Cream, [facility]/pharmacy #[id number], 1 application Topically 3 times [...] 11 Refills, Maintenance, 12/06/21 15:04:00 EDT, Tablet, [facility], Partial fill upon [...] tablet, 3 Refills, Maintenance, 07/12/21 18:53:00 EDT, Tablet,[facility]/pharmacy #[id number], Discontinue 30- day supply presc... Start Date: 07/12/21 Stop Date: 07/07/22 Status: Ordered ferrous sulfate 325 mg oral tablet 1 tablet = 325 mg, By Mouth, Daily, May take with food to minimize abdominal discomfort. Do not take with milk. Take preferrably with juice., # 90 tablet, 3 Refills, Maintenance, 09/15/21 8:56:00 EDT, [facility]/pharmacy #[id number], 160, cm, 09/15/21 8:15:00 EDT,... [...] 04/19/22 10:15:00 EST, Route to Pharmacy Electronically, [facility]/pharmacy #[id number], Partial fill upon patient request if the prescription is for a schedule II opioi... Start Date: 04/19/22 Status: Ordered ketotifen 0.025% ophthalmic solution 1 drops, Eyes, Both, Every 12 hours, PRN as needed for eye allergy, # 7.5 mL, 11 Refills, Maintenance, 06/25/21 8:34:00 EDT, [facility]/pharmacy #[id number], 1 drops Eyes, Both Every [...] 90 tablet, 3 Refills, 03/09/22 11:57:00 EST, [facility]/pharmacy #[id number], 1 tablet By Mouth Daily before dinner,PRN:allergies, 160, cm, 03/09/22 10:43:00 EST, Height, 78, kg, 01/14/22 19:37:00 ED... Start Date: 03/09/22 Status: Ordered montelukast 10 mg oral tablet 10 mg, 1, tablet, By Mouth, Daily at bedtime, # 90 tablet, Refills 3, Tot. Refills 3, Maintenance, 03/09/22 11:37:00 EST, Route to Pharmacy Electronically, [facility]/pharmacy #[id number], 160, cm, 03/09/22 10:43:00 EST, Height, 78, kg, 01/14/22 19:37:00 EDT, Dry... Start Date: 03/09/22 Stop Date: 03/04/23 Status: Ordered Nexium 40 mg oral enteric coated capsule 1 capsule = 40 mg, By Mouth, Daily, 30 minutes before breakfast, # 30 capsule, 2 Refills, Maintenance, 05/02/22 15:39:00 EST, [facility]/pharmacy #[id number], Discontinue pantoprazole, 160, cm, 04/19/22 9:55:00 EST, Height, 76, kg, 04/12/22 16:37:00 EST, Dry Weight Start Date: 05/02/22 Stop Date: 07/31/22 Status: Ordered Norvasc 5 mg oral tablet 5 mg, 1, tablet, By Mouth, Daily, # 90 tablet, Refills 3, Tot. Refills 3, Maintenance, 03/09/22 11:54:00 EST, Route to Pharmacy Electronically, [facility]/pharmacy #[id number], 160, cm, 03/09/22 10:43:00 EST, [...] 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 Start Date: 03/09/22 Status: Ordered Xab-elt-atbrn medical-grade oxford diabetic shoes, depth or hightop Lrt-pzx-azbdi medical-grade oxford diabetic shoes, depth or hightop, [...] 08/19/22 Stop Date: 09/16/22 Status: Ordered Pen [place], 32 G x 4 mm BD Ultra [...] the same time every day Given by Multimedia Services Manager, Dr. Michael Berkowitz, # 60 each, 0 Refills, Maintenance, 07/21/21 11:59:00 EDT, Powder, Partial fill upon patient request if the prescription is for a schedule II opi... 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 06/16/08 SURGEON: Danny Marie M.D. HOME HEALTH NURSE: Naima Bowling M.D. 22b/l submassive PE diagnosed on Dec 20 in [facility] 23TTE 12/22/15 in [facility]: RV dilatation, RVSP 46 24Per ECHO 05/24/17 Trace mitral regurgitation , trace TC regurgitation w no significant valve pathology 25meg colo July 2009 exc for 2 hyperplastic polyps 26Colonoscopy 2004 at [facility] [place] per letter of Dr Amor Dobbins Social [...] Role: Lifetime Consulting Physician Address: Address: [address] [place] [address] [facility] [place] [address]- Name: Florinda Trinh MD Position: [facility] Primary Care Physician Member Role: PCP Address: Address: [address] [place] [address]- Care Team Related Persons Name: JOSE ELIAS TODD Address: [place] [address] Name: JOSE ELIAS KIRKLAND Address: home [address] [place] [id number] Name: LEONIE SCHRADER Address: [place] [address]
--- OUTSIDE RECORDS SUMMARY | 2023-10-23 09:45 | XMS_ITS | Continuity of Care Document ---
Author Organization [facility] Negrito rosetta Address [address] [place] [address] [address] [place] [address]- Care Team Providers Care Election Watcher Name Role Phone Gayathri GARZA, Florinda Primary Care Physician [facility]counter [facility] Date(s): 04/01/21 - 05/01/21 [facility] [address] [place] [address]- Attending Physician: Yaya Patino Admitting Physician: Yaya [...] or fever, (not to exceed 2000 mg/day) urdu, # 100 tablet, 11 Refills, Maintenance, 04/28/21 13:24:00 EST, [facility]/pharmacy #[id number], 160, cm, 04/28/21 [...] 11 Refills, Maintenance, 04/21/21 18:12:00 EST, Tablet, [facility]/pharmacy #1026, 160, cm, 03/03/21 11:23:00 EST, Height, 80.6, kg, 06/03/20 19:00:00 EST, Dry Weight Start Date: 04/21/21 Status: Ordered escitalopram 20 mg oral tablet 1 tablet = 20 mg, By Mouth, Daily, Discontinue duloxetine 60 mg, # 30 tablet, 11 Refills, Maintenance, 12/09/20 11:15:00 EDT, Tablet, [facility]/pharmacy #1026, Partial fill upon [...] tablet, 3 Refills, Maintenance, 06/30/20 14:55:00 EDT, Tablet,[facility]/pharmacy #1026, Discontinue 30- day [...] 04/28/21 14:34:00 EST, Route to Pharmacy Electronically, [facility]/pharmacy #[id number], Can use with [...] capsule, 3 Refills, Maintenance, 10/22/20 10:35:00 EDT, [facility]/pharmacy #[id number], 160, cm, 10/22/20 9:15:00 EDT, Height, 80.6, kg, 06/03/20 19:00:00 EST, Dry Weight Start Date: 10/22/20 Stop Date: 10/17/21 Status: Ordered ketotifen 0.025% ophthalmic solution 1 drops, Eyes, Both, Every 12 hours, PRN as needed for eye allergy, # 7.5 mL, 11 Refills, Maintenance, 01/27/20 19:13:00 EDT, [facility]/pharmacy #[id number], 1 drops Eyes, [...] 78.8, kg,... Start Date: 01/21/20 Status: Ordered Ksq-pek-mpzir medical-grade oxford diabetic shoes, depth or hightop Tce-zio-ceujf medical-grade oxford diabetic shoes, depth or hightop, [...] 04/19/21 Stop Date: 05/17/21 Status: Ordered Pen Debary, 32 G x 4 mm BD Ultra Fine III See Instructions, # 360 each, Refills 3, Tot. Refills 3, Maintenance, Use as directed for insulin use 4 times a day DX IDDM; 90 days, 02/01/21 10:40:00 EDT, Compound, 160, cm, 01/28/21 13:05:00 EDT, Height, 80.6, kg, 06/03/20 19:00:00 Carlo SOLORZANO. Start Date: 10/25/21 Status: Ordered Plavix 75 mg oral tablet 75 mg, 1, tablet, By Mouth, Daily, Stop if there is any bleeding. Stop 5 to 7 days before any invasive procedures, # 30 tablet, Refills 11, Tot. Refills 11, Maintenance, 04/28/21 14:02:00 EST, Route to Pharmacy Electronically, [facility]/pharmacy #1026, 160... Start Date: [...] 527 Gm,11 Refills, Maintenance, 01/27/20 19:13:00 EDT, [facility]/pharmacy #1026, 17- 34 Gm [...] 11 Refills, Maintenance, 04/28/21 14:03:00 EST, Tablet, [facility]/pharmacy #1026, 160, cm, 04/28/21 9:50:00 EST, Height, 80.6, kg, 06/03/20 19:00:00 EST, Dry Weight Start Date: 04/28/21 Status: Ordered Senna-Time 8.6 mg oral tablet 2 tablet, By Mouth, 2 times a day, PRN NEEDED FOR CONSTIPATION,INSTR, DISCONTINUE DOCUSATE, # 60tablet, 11 Refills, [facility] STORE [id number], 160, cm, 03/03/21 11:23:00 EST, Height, 80.6, [...] 02/22/21 17:50:00 EST, Route to Pharmacy Electronically, [facility]/pharmacy #[id number], 1... Start Date: [...] 02/15/21 11:39:00 EST, Route to Pharmacy Electronically, [facility]/pharmacy #[id number],Partial fill upon patient request if the prescrip... Start Date: 02/15/21 Stop Date: 03/29/21 Status: Ordered Trelegy Ellipta inhalation powder 1 puffs, Inhalation, Daily, at the same time every day given by senior inspector , Dr Berkowitz, # 60 each, 0 [...] Date: 02/15/21 Stop Date: 05/10/21 Status: Ordered [place] Reusable Bed Pad 34 x 36 [place] Reusable Bed Pad 34 x 36 , [...] apnea)(Confirmed) Active Osteopenia(Confirmed) 18, 19 11/16/12 Active *[id number] Care Partn igor [place](Confirmed) Active Peripheral venous [...] 2 peroneal veins diagnosed on Dec 20 [facility] 6insulin dependent 7Per ECHO 05/24/1718 [...] lower parathyroidectomy. 06/16/08 SURGEON: Danny Marie M.D. HEATING ELEMENT BUILDER: Naima Bowling M.D. 21b/l submassive PE diagnosed on Dec 20 in [facility] 22TTE 12/22/15 in [facility]: RV dilatation, RVSP 46 23Per ECHO 05/24/17 Trace mitral regurgitation , trace TC regurgitation w no significant valve pathology 24meg colo July 2009 exc for 2 hyperplastic polyps 25Colonoscopy 2004 at [facility] [place] per letter of Dr Amor Dobbins Social History Social History Type Response Smoking Status Never (less than 100 in lifetime) entered on: 10/22/20 Sex
--- OUTSIDE RECORDS SUMMARY | 2023-10-23 09:45 | XMS_ITS | Continuity of Care Document ---
Author Organization [facility] Address [address] [place] [address]- Care Team Providers Care Carbonizer Tester Name Role Phone Florinda Trinh MD Primary Care Physician Encounter [facility] Date(s): 12/08/21 - 01/16/22 [facility] [place] [address] [place] [address]- Attending Physician: Florinda Trinh MD Admitting Physician: Florinda Trinh MD Allergies, Adverse Reactions, Alerts Substance Reaction Severity Status penicillin RASH Active morphine itchy Active Bactrim 1 hyperkalemia Active Lidocaine, Topical Active 1Hyperkalemia when used together with lisinopril Immunizations Given and Recorded Vaccine Date Status Refusal Reason zoster vaccine, inactivated 12/08/21 Given zoster vaccine, inactivated 09/15/21 Given SARS-CoV-2 mRNA ([id number]) vax 09/15/21 Given SARS-CoV-2 (COVID-19) mRNA BNT-162b2 [...] 01/19/22 13:10:00 EDT, 12/22/21 13:10:00 EDT, Tablet, [facility]... Start Date: 12/22/21 Stop Date: 01/19/22 Status: Ordered acetaminophen-hydrocodone 300 mg-7.5 mg oral tablet 2 tablet, By Mouth, Every 8 hours, for 28 days, for pain fill date Jan 19, 2022 Dx Chronic LBP, renal colic, # 168 tablet, 0 Refills, Acute 02/16/22 13:10:00 EST, 01/19/22 13:10:00 EDT, Tablet, [facility], Partial fi... Start Date: 01/19/22 Stop Date: 02/16/22 Status: Ordered acetaminophen-hydrocodone 300 mg-7.5 mg oral tablet 2 tablet, By Mouth, Every 8 hours, for 28 days, for pain fill date Feb 16, 2022 Dx Chronic LBP, renal colic, # 168 tablet, 0 Refills, Acute 03/16/22 13:10:00 EST, 02/16/22 13:10:00 EST, Tablet, [facility], Partial greyson... Start Date: 02/16/22 Stop [...] Gm, 11 Refills, Maintenance, 07/21/21 12:43:00 EDT, [facility]/pharmacy #1026, 1 applicator Topically 2 [...] needed for anxiety and 1tab at HS [id number], # 60 tablet, 11 Refills, Maintenance, 09/15/21 9:02:00 EDT, [facility]/pharmacy #1026, Partial [...] Dry Weight Start Date: 07/21/21 Status: Ordered cefpodoxime 200 mg oral tablet 1 tablet = 200 mg, By Mouth, Every 12 hours, for 10 days, # 20 tablet, 0 Refills, Acute 01/24/22 20:19:00 EDT, 01/14/22 20:19:00 EDT, Tablet, [facility], Partial fill upon patient request if the prescription is for a schedule II opioid drug.,... Start Date: 01/14/22 Stop Date: 01/24/22 Status: Ordered Compression- Lower Extremity (Knee High) [...] 11 Refills, Maintenance, 04/21/21 18:12:00 EST, Tablet, [facility]/pharmacy #1026, 160, cm, 03/03/21 11:23:00 EST, Height, 80.6, kg, 06/03/20 19:00:00 EST, Dry Weight Start Date: 04/21/21 Status: Ordered escitalopram 20 mg oral tablet 1 tablet = 20 mg, By Mouth, Daily, # 30 tablet, 11 Refills, Maintenance, 12/06/21 15:04:00 EDT, Tablet, [facility], Partial fill upon [...] tablet, 3 Refills, Maintenance, 07/12/21 18:53:00 EDT, Tablet,[facility]/pharmacy #1026, Discontinue 30- day supply presc... Start Date: 07/12/21 Stop Date: 07/07/22 Status: Ordered ferrous sulfate 325 mg oral tablet 1 tablet = 325 mg, By Mouth, Daily, May take with food to minimize abdominal discomfort. Do not take with milk. Take preferrably with juice., # 90 tablet, 3 Refills, Maintenance, 09/15/21 8:56:00 EDT, [facility]/pharmacy #1026, 160, cm, 09/15/21 8:15:00 [...] 04/28/21 14:34:00 EST, Route to Pharmacy Electronically, [facility]/pharmacy #1026, Can use with HCTZ, [...] capsule, 3 Refills, Maintenance, 11/19/21 14:28:00 EDT, [facility]/pharmacy #1026, 160, cm, 11/05/21 9:50:00 EDT, Height, 80.5, kg, 11/05/21 9:50:00 EDT, Dry Weight Start Date: 11/19/21 Stop Date: 11/14/22 Status: Ordered ketotifen 0.025% ophthalmic solution 1 drops, Eyes, Both, Every 12 hours, PRN as needed for eye allergy, # 7.5 mL, 11 Refills, Maintenance, 06/25/21 8:34:00 EDT, [facility]/pharmacy #1026, [...] # 90 tablet, 1 Refills, [id number], 90, TOME GAGE TABLETA POR VIA ORAL [...] opioid drug. Start Date: 01/14/22 Status: Ordered Norvasc 5 mg oral tablet 5 mg, 1, tablet, By Mouth, Daily, # 30 tablet, Refills 0, Tot. Refills 0, Maintenance, 09/21/21 9:23:00 EDT, Route to Pharmacy Electronically, [facility], Partial fill upon patient request if [...] 78.8, kg,... Start Date: 01/21/20 Status: Ordered Ivp-cox-bmhrr medical-grade oxford diabetic shoes, depth or hightop Hsj-oll-skuby medical-grade oxford diabetic shoes, depth or hightop, See Instructions, # 1 each, Refills 0, Tot. 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 Start Date: 07/21/21 Status: Ordered Pen [place], 32 G x 4 mm BD Ultra [...] Size- la... Start Date: 04/28/21 Status: Ordered Shoes insert, molded to foot [...] the same time every day Given by Tea Taster, Dr. Michael Berkowitz, # 60 each, 0 Refills, Maintenance, 07/21/21 11:59:00 EDT, Powder, Partial fill upon patient request if the prescription is for a schedule II opi... Start Date: 07/21/21 Status: Ordered Tresiba FlexTouch 200 units/mL subcutaneous solution See Instructions, INJECT 86 UNITS DAILY AT 9PM, # 45 Unknown, 6 Refills, [facility], 160, cm, 06/21/21 9:57:00 EDT, Height, 80.6, kg, 06/03/20 19:00:00 EST, Dry Weight Start Date: 06/22/21 Status: Ordered Ventolin HFA 108 mcg/inh inhalation aerosol with adapter 2 puffs, Inhalation, 4 times a day, PRN Wheezing/Shortness of Breath, dispense when patient requestit, # 18 Gm, 5 Refills, Maintenance, 11/09/20 12:36:00 EDT, [facility]/pharmacy #1026, 160, cm, 10/22/20 9:15:00 EDT, Height, 80.6, kg, 06/03/20 19:00:00 EST,... 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 06/16/08 SURGEON: Danny Marie M.D. SOLID WASTE MANAGEMENT ENGINEER: Naima Bowling M.D. 22b/l submassive PE diagnosed on Dec 20 in [facility] 23TTE 12/22/15 in [facility]: RV dilatation, RVSP 46 24Per ECHO 05/24/17 Trace mitral regurgitation , trace TC regurgitation w no significant valve pathology 25meg colo July 2009 exc for 2 hyperplastic polyps 26Colonoscopy 2004 at [facility] [place] per letter of Dr Amor Dobbins Social History Social History Type Response Smoking Status Never (less than 100 in lifetime) entered on: 10/22/20 Sex Patient Care team information Personnel Name: Gayathri GARZA, [facility] Address: Address: [address] [place] [address]
--- OUTSIDE RECORDS SUMMARY | 2023-10-23 09:45 | XMS_ITS | Continuity of Care Document ---
Author Organization [facility] Address [address] [place] [address]- Care Team Providers Care Mine Motor Engineer Name Role Phone Gayathri GARZA, Florinda Primary Care Physician [facility]counter [facility] Date(s): 07/02/21 - 08/01/21 [facility] [address] [place] [address]- Allergies, Adverse Reactions, Alerts Substance Reaction Severity [...] amharic, # 100 tablet, 11 Refills, Maintenance, 04/28/21 13:24:00 EST, [facility]/pharmacy #[id number], 160, cm, 04/28/21 9:50:00 EST, [...] Biotene Moisturizing Mouth oral spray See Instructions, [place] directly into mouth; spray is safe to swallow as needed for dry mouth, # 45mL, 11 Refills, Maintenance, 07/21/21 12:43:00 EDT, [id number], [place] directly into mouth; spray is safe to [...] 11 Refills, Maintenance, 04/21/21 18:12:00 EST, Tablet, [facility]/pharmacy #1026, 160, cm, 03/03/21 11:23:00 EST, Height, 80.6, kg, 06/03/20 19:00:00 EST, Dry Weight Start Date: 04/21/21 Status: Ordered escitalopram 20 mg oral tablet 1 tablet = 20 mg, By Mouth, Daily, Discontinue duloxetine 60 mg, # 30 tablet, 11 Refills, Maintenance, 12/09/20 11:15:00 EDT, Tablet, [facility]/pharmacy #1026, Partial [...] 04/28/21 14:34:00 EST, Route to Pharmacy Electronically, [facility]/pharmacy #1026, Can use with HCTZ, 160, [...] capsule, 3 Refills, Maintenance, 10/22/20 10:35:00 EDT, [facility]/pharmacy #1026, 160, cm, 10/22/20 9:15:00 EDT, [...] # 90 tablet, 2 Refills, [id number], 160, cm, 06/21/21 9:57:00 EDT, Height, 80.6, [...] 78.8, kg,... Start Date: 01/21/20 Status: Ordered Btf-erw-dehqq medical-grade oxford diabetic shoes, depth or hightop Vrt-qme-fgvza medical-grade oxford diabetic shoes, depth or hightop, [...] 10/04/21 Stop Date: 11/01/21 Status: Ordered Pen [place], 32 G x 4 mm BD [...] 04/28/21 14:02:00 EST, Route to Pharmacy Electronically, [facility]/pharmacy #1026, 160... Start Date: 04/28/21 Stop [...] 11 Refills, Maintenance, 04/28/21 14:03:00 EST, Tablet, [facility]/pharmacy #1026, 160, cm, 04/28/21 9:50:00 EST, Height, 80.6, kg, 06/03/20 19:00:00 EST, Dry Weight Start Date: 04/28/21 Status: Ordered Senna-Time 8.6 mg oral tablet 2 tablet, By Mouth, 2 times a day, PRN NEEDED FOR CONSTIPATION,INSTR, DISCONTINUE DOCUSATE, # 60tablet, 11 Refills, [facility] STORE [id number], 160, cm, 03/03/21 11:23:00 EST, Height, 80.6, [...] 02/22/21 17:50:00 EST, Route to Pharmacy Electronically, [facility]/pharmacy #1026, 1... Start Date: 02/22/21 Status: [...] 02/15/21 11:39:00 EST, Route to Pharmacy Electronically, [facility]/pharmacy #[id number],Partial fill upon patient request if the prescrip... Start Date: 02/15/21 Stop Date: 03/29/21 Status: Ordered Trelegy Ellipta inhalation powder 1 puffs, Inhalation, Daily, at the same time every day Given by Suspect Artist, Dr. Michael Berkowitz, # 60 each, 0 Refills, Maintenance, 07/21/21 11:59:00 EDT, Powder, Partial fill upon patient request if the prescription is for a schedule II opi... Start Date: 07/21/21 Status: Ordered Tresiba FlexTouch 200 units/mL subcutaneous solution See Instructions, INJECT 86 UNITS DAILY AT 9PM, # 45 Unknown, 6 Refills, [facility] STORE [id number], 160, cm, 06/21/21 9:57:00 EDT, Height, 80.6, kg, 06/03/20 19:00:00 EST, Dry Weight Start Date: 06/22/21 Status: Ordered Ventolin HFA 108 mcg/inh inhalation aerosol with adapter 2 puffs, Inhalation, 4 times a day, PRN Wheezing/Shortness of Breath, dispense when patient requestit, # 18 Gm, 5 Refills, Maintenance, 11/09/20 12:36:00 EDT, [facility]/pharmacy #1026, 160, cm, 10/22/20 9:15:00 EDT, Height, 80.6, kg, 06/03/20 19:00:00 EST,... Start Date: 11/09/20 Status: Ordered Voltaren 1% topical gel = 2 Gm, Topically, 4 times a day, # 100 Gm, 5 Refills, Maintenance, 02/15/21 11:40:00 EST, [facility]/pharmacy #1026, 2 Gm Topically 4 times a day,x14 days, 160, cm, 02/15/21 8:47:00 EST, Height, 80.6, kg, 06/03/20 19:00:00 EST, Dry Weight Start Date: 02/15/21 Stop Date: 05/10/21 Status: Ordered [place] Reusable Bed Pad 34 x 36 [place] Reusable Bed Pad 34 x 36 , [...] 11 Refills, Maintenance, 10/22/20 10:19:00 EDT, Tablet, [facility]/pharmacy #1026, Partial fill upon patient request if the prescription is for a schedule II opioid drug., 1 tablet B... Start Date: 10/22/20 Status: Ordered Zofran 4 mg oral tablet 1 tablet = 4 mg, By Mouth, Every 8 hours, PRN Nausea & Vomiting, # 15 tablet, 1 Refills, Maintenance, 06/04/21 16:16:00 EST, Tablet, [facility]/pharmacy #1026, [...] apnea)(Confirmed) Active Osteopenia(Confirmed) 18, 19 11/16/12 Active *[id number] [facility] Active Peripheral venous insufficiency(Confirmed) 10/31/11 Active [...] 2 peroneal veins diagnosed on Dec 20 [facility] 6insulin dependent 7Per ECHO 05/24/1718 Grade [...] lower parathyroidectomy. 06/16/08 SURGEON: Danny Marie M.D. CURB MACHINE OPERATOR: Naima Duy-Clifford, M.D. 21b/l submassive PE diagnosed on Dec 20 in [facility] 22TTE 12/22/15 in [facility]: RV dilatation, RVSP 46 23Per ECHO 05/24/17 Trace mitral regurgitation , trace TC regurgitation w no significant valve pathology 24meg colo July 2009 exc for 2 hyperplastic polyps 25Colonoscopy 2004 at [facility] [place] per letter of Dr Amor Dobbins Social History Social History Type Response Smoking Status Never (less than 100 in lifetime) entered on: 10/22/20 Sex
--- OUTSIDE RECORDS SUMMARY | 2023-10-23 09:45 | XMS_ITS | Continuity of Care Document ---
Author Organization [facility] Address [address] [place] [address]- Care Team Providers Care Roustabout Crew Name Role Phone Gayathri GARZA, Florinda Primary Care Physician Encounter [facility] Date(s): 07/13/22 - 08/12/22 [facility] [address] [address]- [place] Allergies, Adverse Reactions, Alerts Substance Reaction Severity Status enalapril Active penicillin RASH Active morphine itchy Active Bactrim 1 hyperkalemia Active Lidocaine, Topical Active 1Hyperkalemia when used together with lisinopril Immunizations Given and Recorded Vaccine Date Status Refusal Reason [id number] 12y+ bivalent booster vax 05/25/22 Given influenza [...] zoster vaccine, inactivated 09/15/21 Given SARS-CoV-2 mRNA ([id number]) vax 09/15/21 Given SARS-CoV-2 (COVID-19) mRNA BNT-162b2 [...] Biotene Moisturizing Mouth oral spray See Instructions, [place] directly into mouth; spray is safe to [...] P.M. NEEDED & 1 TAB AT [facility], # 180 tablet, 1 Refills, Maintenance, 08/05/22 12:49:00 EDT, [id number], 158, cm, 07/12/22 11:54:00 EDT, Height, 76, [...] 11 Refills, Maintenance, 12/06/21 15:04:00 EDT, Tablet, [facility], Partial fill upon patient request if the prescription is for a schedule II opioid drug., 160, cm, 11/23/21 14:47:00 ED... 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 Start Date: 03/09/22 Status: Ordered Pmn-tsi-nwmrb medical-grade oxford diabetic shoes, depth or hightop Nnx-ckd-qnvpj medical-grade oxford diabetic shoes, depth or hightop, [...] 08/19/22 Stop Date: 09/16/22 Status: Ordered Pen [place], 32 G x 4 mm BD Ultra [...] the same time every day Given by Surgical Forceps Fabricator, Dr. Michael Berkowitz, # 60 each, 0 [...] Date: 03/09/22 Stop Date: 06/01/22 Status: Ordered [place] Reusable Bed Pad 34 x 36 [place] Reusable Bed Pad 34 x 36 , [...] Osteopenia 18, 19, 20 Confirmed 11/16/12 Active *[phone] Coning Machine Operator Karine More Confirmed Active Peripheral venous [...] 11left mild sensorineural hearing loss by [facility] Hearing Evaluation on 12/29/11 12Narcotic [...] lower parathyroidectomy. 06/16/08 SURGEON: Danny Marie M.D. GAS PIT WORKER: Naima Bowling M.D. 22b/l submassive PE diagnosed on Dec 20 in [facility] 23TTE 12/22/15 in [facility]: RV dilatation, RVSP 46 24Per ECHO 05/24/17 Trace mitral regurgitation , trace TC regurgitation w no significant valve pathology 25meg colo July 2009 exc for 2 hyperplastic polyps 26Colonoscopy 2004 at [facility] [place] per letter of Dr Amor Dobbins Social History Social History Type Response Smoking Status Never (less than 100 in lifetime) entered on: 10/22/20 Sex Patient Care team information Care Team Personnel Name: Diamond Weiss RN Position: [facility] RN Member Role: Primary Care Nurse Name: Tiara Cavazos RN Position: [facility] OB RN Member Role: Primary Care Nurse Name: Shreya Boss RN Position: [facility] RN Member Role: Primary Care Nurse Name: Jaylin Hernandez RN Position: [facility] Onco RN Member Role: Primary Care Nurse Name: Glen Cota MD Position: [facility] Renal MD Member Role: Lifetime Consulting Physician Address: Address: [address] [place] [address] [facility] [address] Name: Florinda Trinh MD Position: [facility] Primary Care Physician Member Role: PCP Address: Address: [address] [place] [address] Care Team Related Persons Name: JOSE ELIAS TODD Address: [place] [address] Name: JOSE ELIAS KIRKLAND Address: home [address] [place] [address] Name: LEONIE SCHRADER Address: [place] [address]
--- OUTSIDE RECORDS SUMMARY | 2023-10-23 09:46 | XMS_ITS | Continuity of Care Document ---
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 4Admin Note: MELISSA CHIU, HEIDY 5Admin Note: [...] english, # 100 tablet, 11 Refills, Maintenance, 01/16/19 [...] mg, 2, mL, Neb, Daily, given by senior technical recruiter , Dr Berkowitz, # 120 mL, Refills [...] 11 Refills, Maintenance, 09/25/19 11:21:00 EDT, Cream, [facility], 1 application Topically 3 times a day, [...] Refills, Maintenance, 03/27/19 9:10:00 EST, EC Capsule, [facility], 159, cm, 03/20/19 14:59:00 EST, Height, 88.3, kg, 12/13/18 10:17:00 EDT, Dry Weight Start Date: 03/27/19 Status: Ordered docusate sodium 100 mg oral tablet 2 tablet = 200 mg, By Mouth, 2 times a day, # 120 tablet, 11 Refills, Maintenance, 09/25/19 11:07:00 EDT, [facility], 159, cm, 05/20/19 12:19:00 EST, Height, 88.1, kg, 04/25/19 16:02:00 EST, Dry Weight Start Date: 09/25/19 Status: Ordered Eliquis 5 mg oral tablet 1 tablet = 5 mg, By Mouth, 2 times a day, # 60 tablet, 11 Refills, Maintenance, 07/22/19 8:58:00 EDT, Tablet, [facility], 159, cm, 05/20/19 12:19:00 EST, Height, 88.1, kg, 04/25/19 16:02:00 EST, Dry Weight Start Date: 07/22/19 Status: Ordered enalapril 10 mg oral tablet 10 mg, 1, tablet, By Mouth, Daily, 90 days, # 90 tablet, Refills 3, Tot. Refills 3, Maintenance, 09/19/18 15:15:30 EDT, Route to Pharmacy Electronically, [id number], [facility] Start Date: 09/19/18 Status: Ordered famotidine 40 mg oral tablet 1 tablet = 40 mg, By Mouth, Daily at bedtime, If 40 mg tablet is not available, can change to 20 mgtablet 2 tablet at bedtime, # 30 tablet, 2 Refills, Maintenance, 10/09/19 10:01:00 EDT, Tablet, [facility], 159, cm, 09/25/19 14:31... Start Date: 10/09/19 Status: Ordered ferrous sulfate 325 mg oral tablet 1 tablet = 325 mg, By Mouth, Daily, May take with food to minimize abdominal discomfort. Do not take with milk. Take preferrably with juice., # 90 tablet, 3 Refills, Maintenance, 11/22/19 14:58:00 EDT, [facility], 159, cm, 09/25/19... Start Date: 11/22/19 Status: Ordered flunisolide 25 mcg/inh nasal spray 2 puffs, Nasal, 2 times a day, Keep your head down while using dispense when patient request it, # 1 each, 11 Refills, Maintenance, 07/10/19 17:15:00 EDT, [facility]/pharmacy #0957, discontinue nasacort, 2 puffs Nasal [...] capsule, 11 Refills, Maintenance, 06/30/19 9:25:00 EDT, [facility], 159, cm, 05/20/19 12:19:00 EST, [...] Neb, Daily, PRN for wheezing, given by senior technical recruiter , Dr Berkowitz, # 30 each, 0Refills, Maintenance, 11/20/19 13:06:00 EDT, Solution Start Date: 11/20/19 Status: Ordered loratadine 10 mg oral tablet 10 mg, 1, tablet, By Mouth, Daily, PRN, 90 days, # 90 tablet, Refills 3, Tot. Refills 3, Maintenance, as needed for allergy symptoms, 01/16/19 8:53:23 EDT, Route to Pharmacy Electronically, [id number], [facility]... Start Date: 01/16/19 [...] tablet, 1 Refills, Maintenance, 09/25/19 11:46:00 EDT, [facility], 159, cm, 05/20/19 12:19:00 EST, Height, 88.1, kg, 04/25/19 16:02:00 EST, Dry Weight Start Date: 09/25/19 Status: Ordered metFORMIN 500 mg oral tablet 1 tablet = 500 mg, By Mouth, 2 times a day, Take 1 tablet 2x a day. E11.65, # 60 tablet, 11 Refills, Maintenance, 09/23/19 9:54:00 EDT, Tablet, [facility], 159, cm, 05/20/19 12:19:00 EST, Height, 88.1, kg, 04/25/19 16:02:00 EST, . Start Date: 09/23/19 Status: Ordered NovoLOG FlexPen 100 units/mL subcutaneous solution See Instructions, Max daily dose 100 units per day. E11.65, # 45 mL, 11 Refills, Maintenance, 09/23/19 9:56:00 EDT, [facility], DxE11.65, 159, cm, 05/20/19 12:19:00 EST, Height, 88.1, kg, 04/25/19 16:02:00 EST, Dry Weight Start Date: 09/23/19 Status: Ordered Lxu-fsn-nceqo medical-grade oxford diabetic shoes, depth or hightop Yik-svm-fzqwu medical-grade oxford diabetic shoes, depth or hightop, [...] 12/20/19 11:43:00 EDT, Route to Pharmacy Electronically, [facility], [place]... Start Date: 12/20/19 Stop Date: 01/17/20 Status: Ordered oxyCODONE 5 mg oral tablet 5 mg, 1, tablet, By Mouth, Every 4 hours, for 28 days, dispense not earlier than 01/17/20, # 140 tablet, Refills 0, Tot. Refills 0, Acute 02/14/20 11:43:00 EST, 01/17/20 11:43:00 EDT, Route to Pharmacy Electronically, [facility], [place]... Start Date: 01/17/20 Stop Date: 02/14/20 Status: Ordered Pen [place], 32 G x 4 mm BD Ultra [...] 527 Gm,11 Refills, Maintenance, 01/16/19 8:53:22 EDT, [facility] Start Date: 01/16/19 Status: Ordered pravastatin 10 [...] 09/25/19 11:08:00 EDT, Route to Pharmacy Electronically, [facility] [place] Tablet, 159, cm, 05/20/19... Start Date: 09/25/19 [...] Tot. Refills 5, Maintenance, 11/29/19 14:34:00 EDT, [facility] Electron[facility], [facility]... Start Date: 11/29/19 Status: Ordered TENS electrode pads TENS electrode pads, See Instructions, # 1 box, Refills 5, Tot. Refills 5, Maintenance, use as directed for back pain Dx LBP M54.9 1 box of 4, 12/06/16 14:59:01, Compound Start Date: 12/06/16 Status: Ordered Trelegy Ellipta inhalation powder 1 puffs, Inhalation, Daily, at the same time every day given by senior technical recruiter , Dr Berkowitz, # 60 each, 0 Refills, Maintenance, 11/20/19 13:03:00 EDT, Powder Start Date: 11/20/19 Status: Ordered Tresiba FlexTouch 200 units/mL subcutaneous solution See Instructions, Max daily dose 100 units per day. E11.65, # 18 mL, 5 Refills, Maintenance, 09/23/19 9:57:00 EDT, [facility], 159, cm, 05/20/19 12:19:00 EST, Height, 88.1, kg, 04/25/19 16:02:00 EST, Dry Weight Start Date: 09/23/19 Status: Ordered Trulicity Pen 0.75 mg/0.5 mL subcutaneous solution 0.5 mL = 0.75 mg, Subcutaneous Injection, Every week, rotate injection sites, give once a week on the same day every week. E11.9, # 2.5 mL, 3 Refills, Maintenance, 12/20/19 10:50:00 EDT, Solution, [facility], 159, cm, 12/20/19... Start Date: 12/20/19 Status: Ordered Ventolin HFA 108 mcg/inh inhalation aerosol with adapter 2 puffs, Inhalation, 4 times a day, PRN Wheezing/Shortness of Breath, dispense when patient requestit, # 18 Gm, 5 Refills, Maintenance, 07/10/19 17:15:00 EDT, [facility]/pharmacy #0957, 159, cm, 05/20/19 12:19:00 EST, Height, 88.1, kg, 04/25/19 16:02:00 EST... Start Date: 07/10/19 Status: Ordered Vitamin D3 1000 intl units oral tablet 1 tablet = 1,000 International_Units, By Mouth, Daily, # 90 tablet, 1 Refills, Maintenance, 10/09/19 10:01:00 EDT, [facility], 159, cm, 09/25/19 14:31:00 EDT, Height, 88.1, kg, 04/25/19 16:02:00 EST, Dry Weight Start Date: 10/09/19 Status: Ordered [place] Reusable Bed Pad 34 x 36 [place] Reusable Bed Pad 34 x 36 , [...] abnormal(Confirmed) 11 12/29/11 Active Hepatitis C(Confirmed) Active [facility] current use of opi ate analgesic-LBP(Confirmed) 12 Active Hypercholesterolemia(Confirmed) Active Hyperparathyroidism s/p righ t lower parathyroidectomy 06/16/2008(Confirmed) Active Hypertension(Confirmed) Active Hysterectomy(Confirmed) Active Incontinence of urine(Confirmed) Active Iron deficiency anemia(Confirmed) Active Left ventricular hypertrophy(Confirmed) 13 Active Memory impairment(Confirmed) Active Mitral regurgitation(Confirmed) 14 05/24/17 Active Nephrolithiasis(Confirmed) 15, 16, 17 06/11/02 Active Obesity(Confirmed) Active JENNIFER (obstructive sleep apnea)(Confirmed) Active Osteopenia(Confirmed) 18, 19 11/16/12 Active *[phone]-[facility] Partn david [place](Confirmed) Active Peripheral [...] 2 peroneal veins diagnosed on Dec 20 [facility] 6insulin dependent 7Per ECHO 05/24/1718 Grade [...] 1 11left mild sensorineural hearing loss by [facility] Hearing Evaluation on 12/29/11 12Narcotic contract w [...] lower parathyroidectomy. 06/16/08 SURGEON: Danny Marie M.D. MOLD HOISTER: Naima Bowling M.D. 21b/l submassive PE diagnosed on Dec 20 in [facility] 22TTE 12/22/15 in [facility]: RV dilatation, RVSP 46 23Per ECHO 05/24/17 Trace mitral regurgitation , trace TC regurgitation w no significant valve pathology 24meg colo July 2009 exc for 2 hyperplastic polyps 25[address]onoscopy [address] [facility] [place] per letter of Dr Amor Dobbins Social History Social History Type Response Smoking Status Never (less than 100 in lifetime) entered on: 04/17/19 Sex
--- OUTSIDE RECORDS SUMMARY | 2023-10-23 09:46 | XMS_ITS | Continuity of Care Document ---
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 Start Date: 07/16/20 Status: Ordered ammonium lactate 12% topical cream 1 applicator, Topically, 2 times a day, # 280 Gm, 11 Refills, Maintenance, 01/27/20 19:13:00 EDT, [facility] 01/21/21 19:13:00 EDT, 01/27/20 19:13:00 EDT, Tablet, [facility]/pharmacy #1026, 167, cm, 01/13/20 8:54:00 EDT, Height, 78.8, kg, 01/01/20 3:41:00 EDT, Dry... Start Date: 01/27/20 Stop Date: 01/21/21 Status: Ordered capsaicin 0.025% topical cream 1 application, Topically, 3 times a day, # 90 Gm, 11 Refills, Maintenance, 02/10/20 11:22:00 EST, Cream, [facility]/pharmacy #1026, [...] Refills, Maintenance, 01/27/20 19:13:00 EDT, EC Capsule, [facility]/pharmacy #1026, 167, cm, 01/13/20 8:54:00 EDT, Height, 78.8, kg, 01/01/20 3:41:00 EDT, Dry Weight Start Date: 01/27/20 Status: Ordered Eliquis 5 mg oral tablet 1 tablet = 5 mg, By Mouth, 2 times a day, # 60 tablet, 11 Refills, Maintenance, 02/10/20 11:22:00 EST, Tablet, [facility]/pharmacy #1026, 167, cm, 01/13/20 8:54:00 [...] tablet, 1 Refills, Maintenance, 08/31/20 14:45:00 EDT, [facility]/pharmacy #1026, 160, cm, 08/14/20 9:34:00 [...] capsule, 0 Refills, Maintenance, 08/28/20 17:52:00 EDT, [facility]/pharmacy #1026, 160, cm, 08/14/20 9:34:00 EDT, Height, 80.6, kg, 06/03/20 19:00:00 EST, Dry Weight Start Date: 08/28/20 Stop Date: 11/26/20 Status: Ordered ketotifen 0.025% ophthalmic solution 1 drops, Eyes, Both, Every 12 hours, PRN as needed for eye allergy, # 7.5 mL, 11 Refills, Maintenance, 01/27/20 19:13:00 EDT, [facility] [...] 06/24/20 9:08:00 EDT, Route to Pharmacy Electronically, [facility]/pharmacy #1026, 160, cm, 06/12/20 9:01:00 [...] 78.8, kg,... Start Date: 01/21/20 Status: Ordered Gfx-ajc-ugsyk medical-grade oxford diabetic shoes, depth or hightop Cyv-oou-zlgxl medical-grade oxford diabetic shoes, depth or hightop, [...] 10/30/20 10:25:00 EDT, Route to Pharmacy Electronically, [facility]/pharmacy #1026, Part... Start Date: 10/30/20 Stop Date: 11/27/20 Status: Ordered oxyCODONE 5 mg oral tablet 5 mg, 1, tablet, By Mouth, Every 4 hours, for 28 days, PRN pain dispense not earlier than 11/27/20, # 168 tablet, Refills 0, Tot. Refills 0, Acute 12/25/20 10:25:00 EDT, 11/27/20 10:25:00 EDT, Route to Pharmacy Electronically, [facility]/pharmacy #1026, Part... Start Date: 11/27/20 Stop Date: 12/25/20 Status: Ordered oxyCODONE 5 mg oral tablet 5 mg, 1, tablet, By Mouth, Every 4 hours, for 28 days, PRN pain dispense not earlier than 10/02/20, # 168 tablet, Refills 0, Tot. Refills 0, Acute 10/30/20 10:25:00 EDT, 10/02/20 10:25:00 EDT, Route to Pharmacy Electronically, [facility]/pharmacy #1026, Part... Start Date: 10/02/20 Stop Date: 10/30/20 Status: Ordered oxyCODONE 5 mg oral tablet 5 mg, 1, tablet, By Mouth, Every 4 hours, for 28 days, PRN pain dispense not earlier than 10/02/20, # 168 tablet, Refills 0, Tot. Refills 0, Acute 11/27/20 10:25:00 EDT, 10/30/20 10:25:00 EDT, Route to Pharmacy Electronically, [facility]/pharmacy #1026, Part... Start Date: 10/30/20 Stop Date: 11/27/20 Status: Ordered Pen [place], 32 G x 4 mm BD Ultra [...] 02/10/20 11:22:00 EST, Route to Pharmacy Electronically, [facility]/pharmacy #1026 Tablet, 167, cm, 01/13/20 [...] 05/01/20 9:28:00 EST, Route to Pharmacy Electronically, [facility]/pharmacy #1026, 167,... Start Date: 05/01/20 [...] 09/24/20 11:34:00 EDT, Route to Pharmacy Electronically, [facility]/pharmacy #1026,Partial fill upon patient request if the prescrip... Start Date: 09/24/20 Stop Date: 10/08/20 Status: Ordered Trelegy Ellipta inhalation powder 1 puffs, Inhalation, Daily, at the same time every day given by child health associate , Dr Berkowitz, # 60 each, [...] Date: 09/22/20 Stop Date: 12/15/20 Status: Ordered [place] Reusable Bed Pad 34 x 36 [place] Reusable Bed Pad 34 x 36 , [...] apnea)(Confirmed) Active Osteopenia(Confirmed) 18, 19 11/16/12 Active *[id number] Cheri More(Confirmed) Active Peripheral venous insufficiency(Confirmed) 10/31/11 [...] peroneal veins diagnosed on Dec 20 [facility] 6insulin dependent 7Per ECHO 05/24/1718 [...] 1 11left mild sensorineural hearing loss by [facility] Hearing Evaluation on 12/29/11 12Narcotic contract [...] lower parathyroidectomy. 06/16/08 SURGEON: Danny Marie M.D. TURKISH LINE ATTENDANT: Naima Bowling M.D. 21b/l submassive PE diagnosed on Dec 20 in [facility] 22TTE 12/22/15 in [facility]: RV dilatation, RVSP 46 23Per ECHO 05/24/17 Trace mitral regurgitation , trace TC regurgitation w no significant valve pathology 24meg colo July 2009 exc for 2 hyperplastic polyps 25[address] [facility] [place] per letter of Dr Amor Dobbins Social History Social History Type Response Smoking Status Never (less than 100 in lifetime) entered on: 09/10/20 Sex
--- OUTSIDE RECORDS SUMMARY | 2023-10-23 09:46 | XMS_ITS | Continuity of Care Document ---
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 Role Phone Gayathri GARZA, Florinda Primary Care Physician Encounter [facility] Date(s): 10/14/20 - 11/13/20 [facility] [address] [place] [address]- Allergies, Adverse Reactions, Alerts Substance Reaction Severity [...] or fever, (not to exceed 2000 mg/day) portuguese, # 100 tablet, 11 Refills, Maintenance, 08/14/20 10:13:00 EDT, [facility]/pharmacy #1026, 160, cm, 08/14/20 9:34:00 EDT, [...] 01/21/21 19:13:00 EDT, 01/27/20 19:13:00 EDT, Tablet, [facility]/pharmacy #1026, 167, cm, 01/13/20 8:54:00 EDT, [...] Refills, Maintenance, 01/27/20 19:13:00 EDT, EC Capsule, [facility]/pharmacy #1026, 167, cm, 01/13/20 8:54:00 EDT, Height, 78.8, kg, 01/01/20 3:41:00 EDT, Dry Weight Start Date: 01/27/20 Status: Ordered Eliquis 5 mg oral tablet 1 tablet = 5 mg, By Mouth, 2 times a day, # 60 tablet, 11 Refills, Maintenance, 02/10/20 11:22:00 EST, Tablet, [facility]/pharmacy #1026, 167, cm, 01/13/20 8:54:00 EDT, [...] capsule, 3 Refills, Maintenance, 10/22/20 10:35:00 EDT, [facility]/pharmacy #1026, 160, cm, 10/22/20 9:15:00 EDT, Height, 80.6, kg, 06/03/20 19:00:00 EST, Dry Weight Start Date: 10/22/20 Stop Date: 10/17/21 Status: Ordered ketotifen 0.025% ophthalmic solution 1 drops, Eyes, Both, Every 12 hours, PRN as needed for eye allergy, # 7.5 mL, 11 Refills, Maintenance, 01/27/20 19:13:00 EDT, [facility]/pharmacy #1026, 1 drops Eyes, Both [...] mL, 6 Refills, Maintenance, 01/21/20 14:30:00 EDT, [facility]/pharmacy #1026, 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 Start Date: 01/21/20 Status: Ordered Dgt-zxt-fkdeo medical-grade oxford diabetic shoes, depth or hightop Nif-hvu-mxzdy medical-grade oxford diabetic shoes, depth or hightop, [...] 10/30/20 10:25:00 EDT, Route to Pharmacy Electronically, [facility]/pharmacy #1026, Part... Start Date: 10/30/20 Stop Date: 11/27/20 Status: Ordered oxyCODONE 5 mg oral tablet 5 mg, 1, tablet, By Mouth, Every 4 hours, for 28 days, PRN pain dispense not earlier than 11/27/20, # 168 tablet, Refills 0, Tot. Refills 0, Acute 12/25/20 10:25:00 EDT, 11/27/20 10:25:00 EDT, Route to Pharmacy Electronically, [facility]/pharmacy #1026, Part... Start Date: 11/27/20 Stop Date: 12/25/20 Status: Ordered oxyCODONE 5 mg oral tablet 5 mg, 1, tablet, By Mouth, Every 4 hours, for 28 days, PRN pain dispense not earlier than 12/25/20, # 168 tablet, Refills 0, Tot. Refills 0, Acute 01/22/21 10:25:00 EDT, 12/25/20 10:25:00 EDT, Route to Pharmacy Electronically, [facility]/pharmacy #1026, Part... Start Date: 12/25/20 Stop Date: 01/22/21 Status: Ordered oxyCODONE 5 mg oral tablet 5 mg, 1, tablet, By Mouth, Every 4 hours, for 28 days, PRN pain dispense not earlier than 10/02/20, # 168 tablet, Refills 0, Tot. Refills 0, Acute 11/27/20 10:25:00 EDT, 10/30/20 10:25:00 EDT, Route to Pharmacy Electronically, [facility]/pharmacy #1026, Part... Start Date: 10/30/20 Stop Date: 11/27/20 Status: Ordered Pen [place], 32 G x 4 mm BD Ultra [...] 527 Gm,11 Refills, Maintenance, 01/27/20 19:13:00 EDT, [facility]/pharmacy #1026, 17- 34 Gm By Mouth [...] mg oral tablet See Instructions, LUCIANO BURNS [facility], # 30 tablet, 5 Refills, Maintenance, [facility], 160, cm, 10/22/20 9:15:00 EDT, Height, 80.6, kg, 06/03/20 19:00:00 EST, Dry Weight Start Date: 11/13/20 Status: Ordered Senna 8.6 mg oral tablet 17.2 mg, 2, tablet, By Mouth, 2 times a day, PRN, discontinue docusate, # 60 tablet, Refills 11, Tot. Refills 11, Maintenance, for constipation, 02/10/20 11:22:00 EST, Route to Pharmacy Electronically, [facility]/pharmacy #1026 Tablet, 167, cm, 01/13/20 8:5... [...] Maintenance, 10/15/20 16:28:00 EDT, Routeto Pharmacy Electronically, [facility]/pharmacy #1026, 160... Start Date: 10/15/20 Status: Ordered TENS electrode pads TENS electrode pads, See Instructions, # 1 box, Refills 5, Tot. Refills 5, Maintenance, use as directed for back pain Dx LBP M54.9 1 box of 4, 12/06/16 14:59:01, Compound Start Date: 12/06/16 Status: Ordered Trelegy Ellipta inhalation powder 1 puffs, Inhalation, Daily, at the same time every day given by r&d engineer , Dr Berkowitz, # 60 each, [...] Date: 09/22/20 Stop Date: 12/15/20 Status: Ordered [place] Reusable Bed Pad 34 x 36 [place] Reusable Bed Pad 34 x 36 , [...] abnormal(Confirmed) 11 12/29/11 Active Hepatitis C(Confirmed) Active rn long term care current use of opi ate analgesic-LBP(Confirmed) [...] apnea)(Confirmed) Active Osteopenia(Confirmed) 18, 19 11/16/12 Active *[id number] Care Partn igor More(Confirmed) Active Peripheral venous [...] 11left mild sensorineural hearing loss by [facility] Hearing Evaluation on 12/29/11 12Narcotic [...] lower parathyroidectomy. 06/16/08 SURGEON: Danny Marie M.D. INSTRUMENTAL MUSICIAN: Naima Bowling M.D. 21b/l submassive PE diagnosed on Dec 20 in [facility] 22TTE 12/22/15 in [facility]: RV dilatation, RVSP 46 23Per ECHO 05/24/17 Trace mitral regurgitation , trace TC regurgitation w no significant valve pathology 24meg colo July 2009 exc for 2 hyperplastic polyps 25Colonoscopy 2004 at [facility] [place] per letter of Dr Amor Dobbins Social History Social History Type Response Smoking Status Never (less than 100 in lifetime) entered on: 10/22/20 Sex
--- OUTSIDE RECORDS SUMMARY | 2023-10-23 09:46 | XMS_ITS | Continuity of Care Document ---
Author Organization [facility] Address [address] [place] [address]- Care Team Providers Care Web Development Instructor Name Role Phone Gayathri AGRZA, Florinda Primary Care Physician Encounter [facility] [place] Date(s): 07/13/22 - 08/12/22 [facility] [address] [place] [address]- [place] Allergies, Adverse Reactions, Alerts Substance Reaction Severity Status enalapril Active penicillin RASH Active morphine itchy Active Bactrim 1 hyperkalemia Active Lidocaine, Topical Active 1Hyperkalemia when used together with lisinopril Immunizations Given and Recorded Vaccine Date Status Refusal Reason [id number] 12y+ bivalent booster vax 05/25/22 Given influenza [...] zoster vaccine, inactivated 09/15/21 Given SARS-CoV-2 mRNA ([id number]) vax 09/15/21 Given SARS-CoV-2 (COVID-19) mRNA BNT-162b2 [...] Gm, 11 Refills, Maintenance, 07/21/21 12:43:00 EDT, [facility]/pharmacy #1026, 1 applicator Topically 2 times a day, 160, cm, 07/21/21 10:22:00 EDT, Height, 80.6, kg, 06/03/20 19:00:00 EST, Dry Weight Start Date: 07/21/21 Status: Ordered Baqsimi Two Pack 3 mg nasal powder = 3 mg, Naris, Right, Once, Please use for a low blood sugar emergency, may repeat in 15 minutes, #1 each, 3 Refills, Soft Stop, 03/09/22 11:35:00 EST, [facility]/pharmacy #0838, 160, cm, 03/09/22 10:43:00EST, Height, 78, kg, 01/14/22 19:37:00 EDT, Dry W... Start Date: 03/09/22 Status: Ordered Biotene Moisturizing Mouth oral spray See Instructions, Stewart directly into mouth; spray is safe to [...] P.M. NEEDED & 1 TAB AT [facility], # 180 tablet, 1 Refills, Maintenance, 08/05/22 12:49:00 EDT, [facility], 158, cm, 07/12/22 11:54:00 EDT, Height, 76, kg, 05/07/22 6:04:00 ES... Start Date: 08/05/22 Status: Ordered capsaicin 0.025% topical cream 1 application, Topically, 3 times a day, # 35 Gm, 11 Refills, Maintenance, 07/21/21 12:26:00 EDT, Cream, [facility]/pharmacy #1026, 1 application Topically 3 times [...] 11 Refills, Maintenance, 12/06/21 15:04:00 EDT, Tablet, [facility], Partial fill upon patient request if the prescription is for a schedule II opioid drug., 160, cm, 11/23/21 14:47:00 ED... Start Date: 12/06/21 Status: Ordered esomeprazole 40 mg oral enteric coated capsule See Instructions, TAKE 1 CAPSULE BY MOUTH DAILY 30 MINUTES BEFORE BREAKFAST, # 30 capsule, 2 Refills, Maintenance, 08/05/22 12:49:00 EDT, [facility], 158, cm, 07/12/22 11:54:00 EDT, Height, 76, kg, 05/07/22 6:04:00 EST, Dry Weight Start Date: 08/05/22 Status: Ordered famotidine 40 mg oral tablet 1 tablet = 40 mg, By Mouth, Daily at bedtime, If 40 mg tablet is not available, can be changed to 20 mg tablet 2 tablet at bedtime, # 90 tablet, 3 Refills, Maintenance, 07/12/21 18:53:00 EDT, Tablet,[facility]/pharmacy #1026, Discontinue 30- day supply presc... Start Date: 07/12/21 Stop Date: 07/07/22 Status: Ordered ferrous sulfate 325 mg oral tablet 1 tablet = 325 mg, By Mouth, Daily, May take with food to minimize abdominal discomfort. Do not take with milk. Take preferrably with juice., # 90 tablet, 3 Refills, Maintenance, 09/15/21 8:56:00 EDT, [facility]/pharmacy #1026, 160, cm, 09/15/21 8:15:00 EDT,... [...] tablet, 0 Refills, Maintenance, 07/08/22 9:47:00 EDT, [facility], 158, cm, 06/16/22 11:27:00 EST, Height, 76, kg, 05/07/22 6:04:00 EST, Dry Weight Start Date: 07/08/22 Status: Ordered ketotifen 0.025% ophthalmic solution 1 drops, Eyes, Both, Every 12 hours, PRN as needed for eye allergy, # 7.5 mL, 11 Refills, Maintenance, 06/25/21 8:34:00 EDT, [facility]/pharmacy #1026, 1 drops Eyes, Both Every [...] 90 tablet, 3 Refills, 03/09/22 11:57:00 EST, [facility]/pharmacy #0838, 1 tablet By Mouth Daily before dinner,PRN:allergies, 160, cm, 03/09/22 10:43:00 EST, Height, 78, kg, 01/14/22 19:37:00 ED... Start Date: 03/09/22 Status: Ordered montelukast 10 mg oral tablet 10 mg, 1, tablet, By Mouth, Daily at bedtime, # 90 tablet, Refills 3, Tot. Refills 3, Maintenance, 03/09/22 11:37:00 EST, Route to Pharmacy Electronically, [facility]/pharmacy #0838, 160, cm, 03/09/22 10:43:00 EST, Height, 78, kg, 01/14/22 19:37:00 EDT, Dry... Start Date: 03/09/22 Stop Date: 03/04/23 Status: Ordered Norvasc 5 mg oral tablet 5 mg, 1, tablet, By Mouth, Daily, # 90 tablet, Refills 3, Tot. 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 Start Date: 03/09/22 Status: Ordered Dvt-tde-gutzp medical-grade oxford diabetic shoes, depth or hightop Qkz-xlv-vlbjv medical-grade oxford diabetic shoes, depth or hightop, [...] 08/19/22 Stop Date: 09/16/22 Status: Ordered Pen [place], 32 G x 4 mm BD [...] the same time every day Given by Wastewater Supervisor, Dr. Michael Berkowitz, # 60 each, 0 [...] Date: 03/09/22 Stop Date: 06/01/22 Status: Ordered [place] Reusable Bed Pad 34 x 36 [place] Reusable Bed Pad 34 x 36 , [...] Osteopenia 18, 19, 20 Confirmed 11/16/12 Active *[id number] Rubber Down Karine More Confirmed Active Peripheral venous insufficiency [...] lower parathyroidectomy. 06/16/08 SURGEON: Danny Marie M.D. EXTERMINATOR TERMITE: Naima Bowling M.D. 22b/l submassive PE diagnosed on Dec 20 in [facility] 23TTE 12/22/15 in [facility]: RV dilatation, RVSP 46 24Per ECHO 05/24/17 Trace mitral regurgitation , trace TC regurgitation w no significant valve pathology 25meg colo July 2009 exc for 2 hyperplastic polyps 26Colonoscopy 2004 at [facility] [place] per letter of Dr Amor Dobbins Social [...] Member Role: Lifetime Consulting Physician Address: Address: [address] [place] [address] [facility] [address] Name: Florinda Trinh MD Position: [facility] Primary Care Physician Member Role: PCP Address: Address: [address] [place] [address] Care Team Related Persons Name: JOSE ELAIS TODD Address: [place] [address] Name: JOSE ELIAS KIRKLAND Address: home [address] [place] [address] Name: LEONIE SCHRADER Address: [place] [address]
--- OUTSIDE RECORDS SUMMARY | 2023-10-23 09:46 | XMS_ITS | Continuity of Care Document ---
Author Organization [facility] Address Unknown Care Team Providers Care Incident Commander Name Role Phone Gayathri GARZA, Florinda Primary Care Physician Encounter [facility] Date(s): 11/23/20 - 12/23/20 [facility] Allergies, Adverse Reactions, Alerts Substance [...] or fever, (not to exceed 2000 mg/day) samoan, # 100 tablet, 11 Refills, Maintenance, 08/14/20 10:13:00 EDT, [facility]/pharmacy #1026, 160, cm, 08/14/20 9:34:00 [...] Refills, Maintenance, 02/10/20 11:22:00 EST, Tablet, [facility]/pharmacy #1026, 167, cm, 01/13/20 8:54:00 [...] 78.8, kg,... Start Date: 01/21/20 Status: Ordered Gjw-raa-wkszt medical-grade oxford diabetic shoes, depth or hightop Tpf-esh-tgjay medical-grade oxford diabetic shoes, depth or hightop, [...] 11/27/20 16:00:00 EDT, Route to Pharmacy Electronically, [facility]/pharmacy #1026, Part... Start Date: 11/27/20 Stop Date: 12/25/20 Status: Ordered oxyCODONE 5 mg oral tablet 5 mg, 1, tablet, By Mouth, Every 4 hours, for 28 days, PRN pain dispense not earlier than 12/25/20, # 168 tablet, Refills 0, Tot. Refills 0, Acute 01/22/21 10:25:00 EDT, 12/25/20 10:25:00 EDT, Route to Pharmacy Electronically, [facility]/pharmacy #1026, Part... Start Date: 12/25/20 Stop Date: 01/22/21 Status: Ordered Pen [place], 32 G x 4 mm BD Ultra [...] 30 tablet, 5 Refills, Maintenance, [facility], 160, cm, 10/22/20 9:15:00 EDT, Height, 80.6, kg, 06/03/20 19:00:00 EST, Dry Weight Start Date: 11/13/20 Status: Ordered Senna 8.6 mg oral tablet 17.2 mg, 2, tablet, By Mouth, 2 times a day, PRN, discontinue docusate, # 60 tablet, Refills 11, Tot. Refills 11, Maintenance, for constipation, 02/10/20 11:22:00 EST, Route to Pharmacy Electronically, [facility]/pharmacy #1026 Tablet, 167, cm, 01/13/20 [...] Maintenance, 10/15/20 16:28:00 EDT, Routeto Pharmacy Electronically, [facility]/pharmacy #1026, 160... Start Date: 10/15/20 Status: Ordered TENS electrode pads TENS electrode pads, See Instructions, # 1 box, Refills 5, Tot. Refills 5, Maintenance, use as directed for back pain Dx LBP M54.9 1 box of 4, 12/06/16 14:59:01, Compound Start Date: 12/06/16 Status: Ordered Trelegy Ellipta inhalation powder 1 puffs, Inhalation, Daily, at the same time every day given by bonding molder , Dr Berkowitz, # 60 each, 0 [...] Date: 09/22/20 Stop Date: 12/15/20 Status: Ordered [place] Reusable Bed Pad 34 x 36 [place] Reusable Bed Pad 34 x 36 , [...] 11 Refills, Maintenance, 10/22/20 10:19:00 EDT, Tablet, [facility]/pharmacy #1026, Partial fill upon patient request if the prescription is for a schedule II opioid drug., 1 tablet B... Start Date: 10/22/20 Status: Ordered Zofran 4 mg oral tablet 1 tablet = 4 mg, By Mouth, Every 8 hours, PRN Nausea & Vomiting, # 15 tablet, 1 Refills, Maintenance, 09/10/20 9:48:00 EDT, Tablet, [facility]/pharmacy #1026, [...] apnea)(Confirmed) Active Osteopenia(Confirmed) 18, 19 11/16/12 Active *[id number] Care Partn igor More(Confirmed) Active Peripheral venous [...] 11left mild [facility] 12[facility]29/11 12Narcotic contract [...] lower parathyroidectomy. 06/16/08 SURGEON: Danny Marie M.D. PYROMETER TEMPERATURE REGULATOR: Naima Bowling M.D. 21b/l submassive PE diagnosed on Dec 20 in [facility] TTE 12/22/15 in [facility]: RV dilatation, RVSP 46 23Per ECHO 05/24/17 Trace mitral regurgitation , trace TC regurgitation w no significant valve pathology 24meg colo July 2009 exc for 2 hyperplastic polyps 25Colonoscopy 2004 at [facility] [place] per letter of Dr Amor Dobbins Social History Social History Type Response Smoking Status Never (less than 100 in lifetime) entered on: 10/22/20 Sex
--- OUTSIDE RECORDS SUMMARY | 2023-10-23 09:46 | XMS_ITS | Continuity of Care Document ---
Author Organization [facility] Address Unknown Care Team Providers Care Hardwood Floor Refinisher Name Role Phone Gayathri GARZA, Florinda Primary Care Physician En[place] [facility] Date(s): 03/23/21 - 04/22/21 [facility] Allergies, Adverse Reactions, Alerts Substance Reaction [...] exceed 2000 mg/day) german, # 100 tablet, 1 Refills, Maintenance, 04/15/21 18:44:00 EST, [facility]/pharmacy #[id number], 160, cm, 03/03/21 11:23:00 EST, [...] Refills, Maintenance, 04/21/21 18:12:00 EST, Tablet, [facility]/pharmacy #1026, 160, cm, 03/03/21 11:23:00 EST, Height, 80.6, kg, 06/03/20 19:00:00 EST, Dry Weight Start Date: 04/21/21 Status: Ordered escitalopram 20 mg oral tablet 1 tablet = 20 mg, By Mouth, Daily, Discontinue duloxetine 60 mg, # 30 tablet, 11 Refills, Maintenance, 12/09/20 11:15:00 EDT, Tablet, [facility]/pharmacy #1026, Partial fill upon patient request [...] 3 Refills, Maintenance, 06/30/20 14:55:00 EDT, Tablet,[facility]/pharmacy #1026, Discontinue 30- day supply presc... [...] 78.8, kg,... Start Date: 01/21/20 Status: Ordered Rye-otz-fbzpi medical-grade oxford diabetic shoes, depth or hightop Nig-vln-aigwg medical-grade oxford diabetic shoes, depth or hightop, [...] 04/19/21 Stop Date: 05/17/21 Status: Ordered Pen [place], 32 G x 4 mm BD Ultra [...] 30 tablet, 5 Refills, Maintenance, [facility], 160, cm, 10/22/20 9:15:00 EDT, Height, 80.6, kg, 06/03/20 19:00:00 EST, Dry Weight Start Date: 11/13/20 Status: Ordered Senna-Time 8.6 mg oral tablet 2 tablet, By Mouth, 2 times a day, PRN NEEDED FOR CONSTIPATION,INSTR, DISCONTINUE DOCUSATE, # 60tablet, 11 Refills, [id number], 160, cm, 03/03/21 11:23:00 EST, Height, 80.6, [...] 17:50:00 EST, Route to Pharmacy Electronically, [facility]/pharmacy #1026, 1... Start Date: 02/22/21 Status: [...] 11:39:00 EST, Route to Pharmacy Electronically, [facility]/pharmacy #1026,Partial fill upon patient request if the prescrip... Start Date: 02/15/21 Stop Date: 03/29/21 Status: Ordered Trelegy Ellipta inhalation powder 1 puffs, Inhalation, Daily, at the same time every day given by natural resources specialist , Dr Berkowitz, # 60 each, 0 Refills, Maintenance, 11/20/19 13:03:00 EDT, Powder Start Date: 11/20/19 Status: Ordered Tresiba FlexTouch 200 units/mL subcutaneous solution See Instructions, Inject 55 units daily at 9pm, E11.65. titrate accordingly, # 45 mL, 6 Refills, Maintenance, 01/21/20 14:30:00 EDT, [facility]/pharmacy #1026, 167, cm, 01/13/20 8:54:00 EDT, Height, 78.8, kg, 01/01/20 3:41:00 EDT, Dry Weight Start Date: 01/21/20 Status: Ordered Ventolin HFA 108 mcg/inh inhalation aerosol with adapter 2 puffs, Inhalation, 4 times a day, PRN Wheezing/Shortness of Breath, dispense when patient requestit, # 18 Gm, 5 Refills, Maintenance, 11/09/20 12:36:00 EDT, [facility]/pharmacy #1026, 160, cm, 10/22/20 9:15:00 EDT, Height, 80.6, kg, 06/03/20 19:00:00 EST,... Start Date: 11/09/20 Status: Ordered Voltaren 1% topical gel = 2 Gm, Topically, 4 times a day, # 100 Gm, 5 Refills, Maintenance, 02/15/21 11:40:00 EST, [facility]/pharmacy #1026, 2 Gm Topically 4 times a day,x14 days, 160, cm, 02/15/21 8:47:00 EST, Height, 80.6, kg, 06/03/20 19:00:00 EST, Dry Weight Start Date: 02/15/21 Stop Date: 05/10/21 Status: Ordered [place] Reusable Bed Pad 34 x 36 [place]y Reusable Bed Pad 34 x 36 , [...] 11 Refills, Maintenance, 10/22/20 10:19:00 EDT, Tablet, [facility]/pharmacy #1026, Partial fill upon patient request if the prescription is for a schedule II opioid drug., 1 tablet B... Start Date: 10/22/20 Status: Ordered Zofran 4 mg oral tablet 1 tablet = 4 mg, By Mouth, Every 8 hours, PRN Nausea & Vomiting, # 15 tablet, 1 Refills, Maintenance, 09/10/20 9:48:00 EDT, Tablet, [facility]/pharmacy #1026, Partial fill upon patient request [...] apnea)(Confirmed) Active Osteopenia(Confirmed) 18, 19 11/16/12 Active *[id number] [facility] Partn Karine [place](Confirmed) Active Peripheral venous insufficiency(Confirmed) 10/31/11 Active Positive [...] 1 11left mild sensorineural hearing loss by [facility] Hearing Evaluation on 12/29/11 12Narcotic contract [...] lower parathyroidectomy. 06/16/08 SURGEON: Danny Marie M.D. BAKER CHEF: Naima Bowling M.D. 21b/l submassive PE diagnosed on Dec 20 in [facility] 22TTE 12/22/15 in [facility]: RV dilatation, RVSP 46 23Per ECHO 05/24/17 Trace mitral regurgitation , trace TC regurgitation w no significant valve pathology meg colo July 2009 exc for 2 hyperplastic polyps 25Colonoscopy 2004 at [facility] [place] per letter of Dr Amor Dobbins Social History Social History Type Response Smoking Status Never (less than 100 in lifetime) entered on: 10/22/20 Sex
--- OUTSIDE RECORDS SUMMARY | 2023-10-23 09:46 | XMS_ITS | Continuity of Care Document ---
Author Organization [facility] Address [address] [place] [address]- Care Team Providers Care Incident Analyst Name Role Phone Gayathri GARZA, Florinda Primary Care Physician Encounter [facility] Date(s): 06/10/20 - 07/10/20 [facility] [address] [address]- Allergies, Adverse Reactions, Alerts Substance Reaction Severity [...] or fever, (not to exceed 2000 mg/day) turkish, # 100 tablet, 5 Refills, Maintenance, 01/22/20 9:18:00 EDT, [facility]/pharmacy #1026, 167, cm, 01/13/20 8:54:00 EDT, [...] 06/12/20 8:36:00 EST, Route to Pharmacy Electronically, [facility]/pharmacy #1026, 160, cm, 06/04/20 11:29:00 EST, Height, 80.6, kg, 06/03/20 19:00:00 EST, Dry Weight Start Date: 06/12/20 Status: Ordered ammonium lactate 12% topical cream 1 applicator, Topically, 2 times a day, # 280 Gm, 11 Refills, Maintenance, 01/27/20 19:13:00 EDT, [facility]/pharmacy #1026, 1 applicator Topically 2 times a day, 167, cm, 01/13/20 8:54:00 EDT, Height, 78.8, kg, 01/01/20 3:41:00 EDT, Dry Weight Start Date: 01/27/20 Status: Ordered Baqsimi Two Pack 3 mg nasal powder = 3 mg, Naris, Right, Once, Please use for a low blood sugar emergency, may repeat in 15 minutes, #2 each, 3 Refills, Soft Stop, 06/26/20 7:30:00 EDT, [facility]/pharmacy #1026, Partial fill upon patient request if the prescription is for a schedule II op... Start Date: 06/26/20 Status: Ordered calcium (as citrate)-vitamin D 315 mg-250 intl units oral tablet 2 tablet, By Mouth, 2 times a day, for 30 days, calcium citrate, # 120 tablet, 11 Refills, Hard Stop 01/21/21 19:13:00 EDT, 01/27/20 19:13:00 EDT, Tablet, [facility]/pharmacy #1026, 167, cm, 01/13/20 8:54:00 EDT, Height, 78.8, kg, 01/01/20 3:41:00 EDT, Dry... Start Date: 01/27/20 Stop Date: 01/21/21 Status: Ordered capsaicin 0.025% topical cream 1 application, Topically, 3 times a day, # 90 Gm, 11 Refills, Maintenance, 02/10/20 11:22:00 EST, Cream, [facility]/pharmacy #1026, 1 application Topically 3 times [...] Maintenance, 01/27/20 19:13:00 EDT, EC Capsule, [facility]/pharmacy #1026, 167, cm, 01/13/20 8:54:00 EDT, [...] 2 Refills, Maintenance, 01/22/20 9:38:00 EDT, [facility]/pharmacy #1026, 167, cm, 01/13/20 8:54:00 EDT,... [...] capsule, 3 Refills, Maintenance, 06/30/20 14:54:00 EDT, [facility]/pharmacy #1026, 160, cm, 06/12/20 9:01:00 EST, Height, 80.6, kg, 06/03/20 19:00:00 EST, Dry Weight Start Date: 06/30/20 Stop Date: 06/25/21 Status: Ordered ketotifen 0.025% ophthalmic solution 1 drops, Eyes, Both, Every 12 hours, PRN as needed for eye allergy, # 7.5 mL, 11 Refills, Maintenance, 01/27/20 19:13:00 EDT, [facility]/pharmacy #1026, 1 drops Eyes, Both Every [...] 9:08:00 EDT, Route to Pharmacy Electronically, [facility]/pharmacy #1026, 160, cm, 06/12/20 9:01:00 EST, Height, 80... Start Date: 06/24/20 Status: Ordered NovoLOG FlexPen 100 units/mL subcutaneous solution See Instructions, Inject up to 26 untis via Insulin sliding scale 3x a day w/meals,MAX daily dose 78 units, E11.65, # 45 mL, 6 Refills, Maintenance, 01/21/20 14:30:00 EDT, [facility]/pharmacy #1026, 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 Start Date: 01/21/20 Status: Ordered Hdc-cqt-ghjpo medical-grade oxford diabetic shoes, depth or hightop Svz-tkf-dxujp medical-grade oxford diabetic shoes, depth or hightop, [...] 07/10/20 Stop Date: 08/07/20 Status: Ordered Pen [place], 32 G x 4 mm BD Ultra [...] 11:22:00 EST, Route to Pharmacy Electronically, [facility]/pharmacy #1026 Tablet, 167, cm, 01/13/20 8:5... [...] 9:28:00 EST, Route to Pharmacy Electronically, [facility]/pharmacy #1026, 167,... Start Date: 05/01/20 Status: Ordered TENS electrode pads TENS electrode pads, See Instructions, # 1 box, Refills 5, Tot. 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 06/16/08 SURGEON: Danny Marie M.D. CARDIOVASCULAR RN: Naima Bowling M.D. 21b/l submassive PE diagnosed on Dec 20 in [facility] 22TTE 12/22/15 in [facility]: RV dilatation, RVSP 46 23Per ECHO 05/24/17 Trace mitral regurgitation , trace TC regurgitation w no significant valve pathology 24meg colo July 2009 exc for 2 hyperplastic polyps 25Colonoscopy 2004 at [facility] [place] per letter of Dr Amor Dobbins Social History Social History Type Response Smoking Status Never (less than 100 in lifetime) entered on: 06/12/20 Sex
--- OUTSIDE RECORDS SUMMARY | 2023-10-23 09:46 | XMS_ITS | Continuity of Care Document ---
Author Organization [facility] Address [address] [place] [address]- Care Team Providers Care Director Reactor Projects Name Role Phone Gayathri GARZA, Florinda Primary Care Physician Encounter [facility] Date(s): 04/20/20 - 05/20/20 [facility] [address] [address]- Allergies, Adverse Reactions, Alerts Substance Reaction Severity [...] or fever, (not to exceed 2000 mg/day) bahamian, # 100 tablet, 5 Refills, Maintenance, 01/22/20 [...] tablet, 2 Refills, Maintenance, 01/22/20 9:38:00 EDT, [facility]/pharmacy #1026, 167, cm, 01/13/20 [...] capsule, 4 Refills, Maintenance, 01/22/20 9:39:00 EDT, [facility]/pharmacy #1026, 167, cm, 01/13/20 [...] 78.8, kg,... Start Date: 01/21/20 Status: Ordered Bbr-mja-qlnkl medical-grade oxford diabetic shoes, depth or hightop Aft-eec-oouzn medical-grade oxford diabetic shoes, depth or hightop, [...] 07/10/20 Stop Date: 08/07/20 Status: Ordered Pen [place], 32 G x 4 mm BD Ultra [...] the same time every day given by warranty coordinator , Dr Berkowitz, # 60 each, [...] Dry Weight Start Date: 04/15/20 Status: Ordered [place] Reusable Bed Pad 34 x 36 [place] Reusable Bed Pad 34 x 36 , [...] apnea)(Confirmed) Active Osteopenia(Confirmed) 18, 19 11/16/12 Active *[id number] Care Partn igor More(Confirmed) Active Peripheral venous [...] lower parathyroidectomy. 06/16/08 SURGEON: Danny Marie M.D. SPONGE DIVER: Naima oBwling M.D. 21b/l submassive PE diagnosed on Dec 20 in [facility] 22TTE 12/22/15 in [facility]: RV dilatation, RVSP 46 23Per ECHO 05/24/17 Trace mitral regurgitation , trace TC regurgitation w no significant valve pathology 24meg colo July 2009 exc for 2 hyperplastic polyps 25Colonoscopy 2004 at [facility] [place] per letter of Dr Amor Dobbins Social History Social History Type Response Smoking Status Never (less than 100 in lifetime) entered on: 04/29/20 Sex
--- OUTSIDE RECORDS SUMMARY | 2023-10-23 09:46 | XMS_ITS | Continuity of Care Document ---
Author Organization [facility] Address [address] [place] [address]- Care Team Providers Care Shift Stacker Name Role Phone Gayathri GARZA, Florinda Primary Care Physician Encounter [facility] Date(s): 12/27/19 - 01/26/20 [facility] [address] [place] [address]- [facility] Allergies, Adverse Reactions, Alerts Substance Reaction [...] or fever, (not to exceed 2000 mg/day) norwegian, # 100 tablet, 5 Refills, Maintenance, 01/22/20 [...] mg, 2, mL, Neb, Daily, given by steamblaster , Dr Berkowitz, # 120 mL, Refills [...] 11 Refills, Maintenance, 09/25/19 11:21:00 EDT, Cream, [facility], 1 application Topically 3 times a [...] Refills, Maintenance, 03/27/19 9:10:00 EST, EC Capsule, [facility], 159, cm, 03/20/19 14:59:00 EST, Height, 88.3, kg, 12/13/18 10:17:00 EDT, Dry Weight Start Date: 03/27/19 Status: Ordered dexamethasone 6 mg oral tablet 1 tablet = 6 mg, By Mouth, Daily, # 3 tablet, 0 Refills, Maintenance, 01/07/20 12:02:00 EDT, Tablet, [facility], 167, cm, 01/06/20 8:40:00 EDT, Height, 78.8, kg, 01/01/20 3:41:00 EDT, Dry Weight Start Date: 01/07/20 Stop Date: 01/10/20 Status: Ordered docusate sodium 100 mg oral tablet 2 tablet = 200 mg, By Mouth, 2 times a day, # 120 tablet, 11 Refills, Maintenance, 09/25/19 11:07:00 EDT, [facility], 159, cm, 05/20/19 12:19:00 EST, Height, 88.1, kg, 04/25/19 16:02:00 EST, Dry Weight Start Date: 09/25/19 Status: Ordered Eliquis 5 mg oral tablet 1 tablet = 5 mg, By Mouth, 2 times a day, # 60 tablet, 11 Refills, Maintenance, 07/22/19 8:58:00 EDT, Tablet, [facility], 159, cm, 05/20/19 12:19:00 EST, Height, 88.1, kg, 04/25/19 16:02:00 EST, Dry Weight Start Date: 07/22/19 Status: Ordered famotidine 40 mg oral tablet 1 tablet = 40 mg, By Mouth, Daily at bedtime, If 40 mg tablet is not available, can change to 20 mgtablet 2 tablet at bedtime, # 30 tablet, 2 Refills, Maintenance, 01/22/20 9:37:00 EDT, Tablet, [facility]/pharmacy #1026, 167, cm, 01/13/20 8:54:00 EDT, Heigh... Start Date: 01/22/20 Status: Ordered ferrous sulfate 325 mg oral tablet 1 tablet = 325 mg, By Mouth, Daily, May take with food to minimize abdominal discomfort. Do not take with milk. Take preferrably with juice., # 90 tablet, 2 Refills, Maintenance, 01/22/20 9:38:00 EDT, [facility]/pharmacy #1026, 167, cm, 01/13/20 8:54:00 [...] capsule, 4 Refills, Maintenance, 01/22/20 9:39:00 EDT, [facility]/pharmacy #1026, 167, cm, 01/13/20 8:54:00 [...] 01/22/20 9:41:00 EDT, Route to Pharmacy Electronically, [facility]/pharmacy #1026, 167, cm, 01/13/20 8:54:00 EDT, Height, 78... Start Date: 01/22/20 Status: Ordered metFORMIN 500 mg oral tablet 1 tablet = 500 mg, By Mouth, Daily, Take 1 tablet w/a meal daily, E11.65, # 30 tablet, 6 Refills, Maintenance, 01/17/20 16:28:00 EDT, [facility]/pharmacy #1972, 167, cm, 01/13/20 8:54:00 EDT, Height, [...] 78.8, kg,... Start Date: 01/21/20 Status: Ordered Ysy-xsv-nrdlr medical-grade oxford diabetic shoes, depth or hightop Mdx-sff-dndes medical-grade oxford diabetic shoes, depth or hightop, [...] 02/14/20 Stop Date: 03/13/20 Status: Ordered Pen [place], 32 G x 4 mm BD Ultra [...] 527 Gm,11 Refills, Maintenance, 01/16/19 8:53:22 EDT, [facility] Start Date: 01/16/19 Status: Ordered Protonix [...] 09/25/19 11:08:00 EDT, Route to Pharmacy Electronically, [facility] Tablet, 159, cm, 05/20/19... Start Date: 09/25/19 [...] 01/22/20 9:43:00 EDT, Route to Pharmacy Electronically, [facility]/pharmacy #1026, 167,... Start Date: 01/22/20 Status: Ordered TENS electrode pads TENS electrode pads, See Instructions, # 1 box, Refills 5, Tot. Refills 5, Maintenance, use as directed for back pain Dx LBP M54.9 1 box of 4, 12/06/16 14:59:01, Compound Start Date: 12/06/16 Status: Ordered Trelegy Ellipta inhalation powder 1 puffs, Inhalation, Daily, at the same time every day given by steamblaster , Dr Berkowitz, # 60 each, 0 [...] Dry Weight Start Date: 01/22/20 Status: Ordered [place] Reusable Bed Pad 34 x 36 [place] Reusable Bed Pad 34 x 36 , [...] apnea)(Confirmed) Active Osteopenia(Confirmed) 18, 19 11/16/12 Active *[id number]-[facility] Partn david [place](Confirmed) Active Peripheral venous insufficiency(Confirmed) [...] parathyroidectomy. 06/16/08 SURGEON: Danny Marie M.D. HOME FURNISHINGS SALES REPRESENTATIVE: Naima Bowling M.D. 21b/l submassive PE diagnosed on Dec 20 in [facility] 22TTE 12/22/15 in [facility]: RV dilatation, RVSP 46 23Per ECHO 05/24/17 Trace mitral regurgitation , trace TC regurgitation w no significant valve pathology 24meg colo July 2009 exc for 2 hyperplastic polyps 25Colonoscopy 2004 at [facility] [place] per letter of Dr Amor Dobbins Social History Social History Type Response Smoking Status Never (less than 100 in lifetime) entered on: 12/25/19 Sex
--- OUTSIDE RECORDS SUMMARY | 2023-10-23 09:46 | XMS_ITS | Continuity of Care Document ---
Author Organization [facility] Address [address] [place] [address]- Care Team Providers Care Sheep Farm Worker Name Role Phone Massimo Figueroa Primary Care Physician Encounter [facility] Date(s): 06/05/23 - 07/05/[address] [address] Attending Physician: Yaya Patino [...] virus vaccine, inactivated 6 05/06/04 Gi zeny [id number] 12y+ bivalent booster vax 05/25/22 Given zoster vaccine, inactivated 12/08/21 Given zoster vaccine, inactivated 09/15/21 Given SARS-CoV-2 mRNA ([id number]) vax 09/15/21 Given SARS-CoV-2 (COVID-19) mRNA BNT-162b2 [...] Maintenance, 05/25/22 12:08:00 EST, ER Tablet, [facility], Discontinue Motrin, 158, cm, 05/25/22 11:12:00... Start [...] Biotene Moisturizing Mouth oral spray See Instructions, [place] directly into mouth; spray is safe to [...] Refills, Maintenance, 08/05/22 12:49:00 EDT, [facility], 158, cm, 07/12/22 11:54:00 EDT, Height, 76, [...] 11 Refills, Maintenance, 12/06/21 15:04:00 EDT, Tablet, [facility], Partial fill upon patient [...] Refills, Maintenance, 07/08/22 9:47:00 EDT, [facility], 158, cm, 06/16/22 11:27:00 EST, Height, 76, [...] tablet, 0 Refills, Maintenance, 04/18/23 1:50:00 EST, [facility]/pharmacy #0838, 90, TAKE 1 TABLET BY MOUTH DAILY BEFORE DINNER NEEDED FOR ALLERGIES, 160, cm, 03/23... Start Date: 04/18/23 Status: Ordered LORazepam 0.5 mg oral tablet TAKE 1 TABLET BY MOUTH 3 TIMES DAILY NEEDED FOR ANXIETY OR SLEEP Start Date: 11/24/22 Status: Ordered montelukast 10 mg oral tablet See Instructions, [facility], # 90 tablet, Refills 0, Tot. Refills 0, Maintenance, 04/18/23 1:51:00 EST, Instructions Replace Required Details, Route to Pharmacy Electronically, [facility]/pharmacy #0838, 160, cm, 03/23/23 1... Start Date: [...] 03/09/22 11:54:00 EST, Route to Pharmacy Electronically, [facility]/pharmacy #0838, 160, cm, 03/09/22 10:43:00 EST, Height, [...] # 15... Start Date: 11/24/22 Status: Ordered Oid-wsr-vtybi medical-grade oxford diabetic shoes, depth or hightop Mmv-fgw-xcebx medical-grade oxford diabetic shoes, depth or hightop, [...] tablet, 2 Refills, Maintenance, 03/09/2211:40:00 EST, Tablet, [facility]/pharmacy #0838, 160, cm, 03/09/22 10:43:00 EST, Height, 78, kg, 01/14/22 19:37:00 EDT, Dry Weight Start Date: 03/09/22 Status: Ordered oxyCODONE 5 mg oral tablet TOME GAGE O DOS TABLETAS POR V A ORAL CADA SEIS HORAS CUANDO SEA NECESARIO PARA EL DOLOR Start Date: 11/24/22 Status: Ordered Pen [place], 32 G x 4 mm BD Ultra [...] 527 Gm,11 Refills, Maintenance, 03/09/22 11:39:00 EST, [facility]/pharmacy #0838, 17- 34 Gm By Mouth Daily,PRN:asneeded [...] 4 Refills, Maintenance, 05/09/23 10:10:00 EST, Tablet, [facility]/pharmacy #0838, Partial fill upon patient request if [...] Gm, 5 Refills, Maintenance, 03/09/22 11:55:00 EST, [facility]/pharmacy #0838, 2 Gm Topically 4 times a day,x14 days, 160, cm, 03/09/22 10:43:00 EST, Height, 78, kg, 01/14/22 19:37:00 EDT, Dry Weight Start Date: 03/09/22 Stop Date: 06/01/22 Status: Ordered [place] Reusable Bed Pad 34 x 36 [place] Reusable Bed Pad 34 x 36 , [...] Confirmed 12/29/11 Active 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 06/16/08 SURGEON: Danny Marie M.D. TURBO GENERATOR OILER: Naima Bowling M.D. 22b/l submassive PE diagnosed on Dec 20 in [facility] 23TTE 12/22/15 in [facility]: RV dilatation, RVSP 46 24Per ECHO 05/24/17 Trace mitral regurgitation , trace TC regurgitation w no significant valve pathology 25meg colo July 2009 exc for 2 hyperplastic polyps 26Colonoscopy 2004 at [facility] per letter of Dr Amor Dobbins Social History Social History Type Response Smoking Status Never (less than 100 in lifetime) entered on: 10/22/20 Sex Patient Care team information Care Team Personnel Name: Massimo Figueroa Position: [facility] Outreach Member Role: PCP Address: Address: [address] [place] [address]- Name: Oneil Ye RN Position: [facility] Outreach Member Role: Primary Care Nurse Name: Diamond Weiss RN Position: [facility] RN Member Role: Primary Care Nurse Name: Tiara Cavazos RN Position: [facility] OB RN Member Role: Primary Care Nurse Name: Shreya Boss RN Position: [facility] RN Member Role: Primary Care Nurse Name: Dhruv Khan RN Position: S RN Member Role: Primary Care Nurse Name: Virginia Benson RN Position: [facility] SN RN Member Role: Primary Care Nurse Name: Jaylin Hernandez RN Position: [facility] Onco RN Member Role: Primary Care Nurse Name: Glen Cota MD Position: [facility] Renal MD Member Role: Lifetime Consulting Physician Address: Address: [address] [place] [address] [facility] [address] Name: Carole Toro LPN Position: [facility] RN Member Role: Primary Care Nurse Care Team Related Persons Name: JOSE ELIAS TODD Address: [place] [address] Name: JOSE ELIAS KIRKLAND Address: home [address] [place] [id number] Name: LEONIE SCHRADER Address: [place] [address]
--- OUTSIDE RECORDS SUMMARY | 2023-10-23 09:46 | XMS_ITS | Continuity of Care Document ---
Author Organization [facility] Address [address] [place] [address]- Care Team Providers Care Assistant Manager Bilingual Name Role Phone Massimo Figueroa Primary Care Physician [phone] [facility]counter [facility] Date(s): 05/09/23 - 06/08/23 [facility] [address] [place] [address]- Allergies, Adverse Reactions, Alerts Substance Reaction Severity [...] virus vaccine, inactivated 6 05/06/04 Gi zeny [id number] 12y+ bivalent booster vax 05/25/22 Given zoster vaccine, inactivated 12/08/21 Given zoster vaccine, inactivated 09/15/21 Given SARS-CoV-2 mRNA ([id number]) vax 09/15/21 Given SARS-CoV-2 (COVID-19) mRNA BNT-162b2 [...] Maintenance, 05/25/22 12:08:00 EST, ER Tablet, [id number], Discontinue Motrin, 158, cm, 05/25/22 11:12:00... Start [...] Gm, 11 Refills, Maintenance, 07/21/21 12:43:00 EDT, [facility]/pharmacy #1026, 1 applicator Topically [...] 3 Refills, Soft Stop, 03/09/22 11:35:00 EST, [facility]/pharmacy #[id number], 160, cm, 03/09/22 10:43:00EST, Height, 78, kg, 01/14/22 19:37:00 EDT, Dry W... Start Date: 03/09/22 Status: Ordered Biotene Moisturizing Mouth oral spray See Instructions, [place] directly into mouth; spray is safe to [...] P.M. NEEDED & [facility], 1 Refills, Maintenance, 08/05/22 12:49:00 EDT, [id number], 158, cm, 07/12/22 11:54:00 EDT, Height, 76, kg, 05/07/22 6:04:00 ES... Start Date: 08/05/22 Status: Ordered capsaicin 0.025% topical cream 1 application, Topically, 3 times a day, # 35 Gm, 11 Refills, Maintenance, 07/21/21 12:26:00 EDT, Cream, [facility]/pharmacy #1026, 1 application Topically [...] 11 Refills, Maintenance, 12/06/21 15:04:00 EDT, Tablet, [facility], Partial fill upon patient [...] tablet, 3 Refills, Maintenance, 07/12/21 18:53:00 EDT, Tablet,[facility], Discontinue 30- day supply presc... Start Date: 07/12/21 Stop Date: 07/07/22 Status: Ordered ferrous sulfate 325 mg oral tablet 1 tablet = 325 mg, By Mouth, Daily, May take with food to minimize abdominal discomfort. Do not take with milk. Take preferrably with juice., # 90 tablet, 3 Refills, Maintenance, 09/15/21 8:56:00 EDT, [facility]/pharmacy #1026, 160, cm, 09/15/21 [...] Refills, Maintenance, 07/08/22 9:47:00 EDT, [id number], 158, cm, 06/16/22 11:27:00 EST, Height, 76, [...] tablet, 0 Refills, Maintenance, 04/18/23 1:50:00 EST, [facility]/pharmacy #0838, 90, TAKE 1 TABLET BY [...] Replace Required Details, Route to Pharmacy Electronically, [facility]/pharmacy #[id number], 160, cm, 03/23/23 1... Start [...] 03/09/22 11:54:00 EST, Route to Pharmacy Electronically, [facility]/pharmacy #0838, 160, cm, 03/09/22 [...] # 15... Start Date: 11/24/22 Status: Ordered Aot-sij-uigjz medical-grade oxford diabetic shoes, depth or hightop Ujy-qxd-zjfkr medical-grade oxford diabetic shoes, depth or hightop, [...] DOLOR Start Date: 11/24/22 Status: Ordered Pen [place], 32 G x 4 mm BD Ultra [...] 4 Refills, Maintenance, 05/09/23 10:10:00 EST, Tablet, [facility]/pharmacy #[id number], Partial fill upon [...] 15 mL, 3 Refills, Maintenance, 02/24/2312:11:00 EST, [facility]/pharmacy #[id number], Partial fill upon [...] Date: 03/09/22 Stop Date: 06/01/22 Status: Ordered [place] Reusable Bed Pad 34 x 36 [place] Reusable Bed Pad 34 x 36 , [...] Confirmed 12/29/11 Active 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 06/16/08 SURGEON: Danny Marie M.D. ADJUSTER LEADER: Naima Bowling M.D. 22b/l submassive PE diagnosed on Dec 20 in [facility] 23TTE 12/22/15 in [facility]: RV dilatation, RVSP 46 24Per ECHO 05/24/17 Trace mitral regurgitation , trace TC regurgitation w no significant valve pathology 25meg colo July 2009 exc for 2 hyperplastic polyps 26Colonoscopy 2004 at [facility] [place] per letter of Dr Amor Dobbins Social History Social History Type Response Smoking Status Never (less than 100 in lifetime) entered on: 10/22/20 Sex Patient Care team information Care Team Personnel Name: Massimo Figueroa Position: [facility] Outreach Member Role: PCP Address: Address: [address] [place] [address]- Name: Diamond Weiss RN Position: [facility] RN Member Role: Primary Care Nurse Name: Tiara Cavazos RN Position: [facility] OB RN Member Role: Primary Care Nurse Name: Shryea Boss RN Position: [facility] RN Member Role: Primary Care Nurse Name: Dhruv Khan RN Position: [facility] RN Member Role: Primary Care Nurse Name: Virginia Benson RN Position: [facility] SN RN Member Role: Primary Care Nurse Name: Mary RN, Jaylin Position: [facility] Onco RN Member Role: Primary Care Nurse Name: Glen Cota MD Position: [facility] Renal MD Member Role: Lifetime Consulting Physician Address: Address: [address] [place] [address] [facility] [address] Name: Carole Toro LPN Position: S RN Member Role: Primary Care Nurse Care Team Related Persons Name: JOSE ELIAS TODD Address: [place] [address] Name: JOSE ELIAS KIRKLAND Address: home [address] [place] [id number] Name: LEONIE SCHRADER Address: [place] [address]
--- OUTSIDE RECORDS SUMMARY | 2023-10-23 09:46 | XMS_ITS | Continuity of Care Document ---
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 Assembler Name Role Phone Gayathri GARZA, Florinda Primary Care Physician [facility] Date[facility]s): 04[facility]30/20 - 05/30/20 [facility] [address] [place], [place] [address] Allergies, Adverse Reactions, Alerts Substance [...] or fever, (not to exceed 2000 mg/day) indonesian, # 100 tablet, 5 Refills, Maintenance, 01/22/20 9:18:00 EDT, [facility]/pharmacy #1026, 167, cm, 01/13/20 [...] 01/21/21 19:13:00 EDT, 01/27/20 19:13:00 EDT, Tablet, [facility]/pharmacy #1026, 167, cm, 01/13/20 8:54:00 EDT, Height, 78.8, kg, 01/01/20 3:41:00 EDT, Dry... Start Date: 01/27/20 Stop Date: 01/21/21 Status: Ordered capsaicin 0.025% topical cream 1 application, Topically, 3 times a day, # 90 Gm, 11 Refills, Maintenance, 02/10/20 11:22:00 EST, Cream, [facility]/pharmacy #1026, 1 [...] Refills, Maintenance, 01/27/20 19:13:00 EDT, EC Capsule, [facility]/pharmacy #1026, 167, cm, 01/13/20 8:54:00 EDT, Height, 78.8, kg, 01/01/20 3:41:00 EDT, Dry Weight Start Date: 01/27/20 Status: Ordered Eliquis 5 mg oral tablet 1 tablet = 5 mg, By Mouth, 2 times a day, # 60 tablet, 11 Refills, Maintenance, 02/10/20 11:22:00 EST, Tablet, [facility]/pharmacy #1026, 167, cm, 01/13/20 8:54:00 EDT, Height, 78.8, kg, 01/01/20 3:41:00 EDT, Dry Weight Start Date: 02/10/20 Status: Ordered enalapril 10 mg oral tablet 10 mg, 1, tablet, By Mouth, Daily, discontinue hydrochlorothiazide, # 30 tablet, Refills 11, Tot. Refills 11, Maintenance, 04/29/20 13:04:00 EST, Route to Pharmacy Electronically, [facility]/pharmacy #1026,167, cm, 04/29/20 9:24:00 EST, Height, 82, kg, ... Start Date: 04/29/20 Status: Ordered famotidine 40 mg oral tablet 1 tablet = 40 mg, By Mouth, Daily at bedtime, If 40 mg tablet is not available, can change to 20 mgtablet 2 tablet at bedtime, # 30 tablet, 2 Refills, Maintenance, 04/04/20 16:07:00 EST, Tablet, [facility]/pharmacy #1026, 167, cm, 02/24/20 17:04:00 EST, Hei... Start Date: 04/04/20 Status: Ordered ferrous sulfate 325 mg oral tablet 1 tablet = 325 mg, By Mouth, Daily, May take with food to minimize abdominal discomfort. Do not take with milk. Take preferrably with juice., # 90 tablet, 2 Refills, Maintenance, 01/22/20 9:38:00 EDT, [facility]/pharmacy #1026, 167, cm, 01/13/20 [...] capsule, 4 Refills, Maintenance, 01/22/20 9:39:00 EDT, [facility]/pharmacy #1026, 167, cm, 01/13/20 [...] 01/22/20 9:41:00 EDT, Route to Pharmacy Electronically, [facility]/pharmacy #1026, 167, cm, 01/13/20 8:54:00 EDT, Height, 78... Start Date: 01/22/20 Status: Ordered NovoLOG FlexPen 100 units/mL subcutaneous solution See Instructions, Inject up to 26 untis via Insulin sliding scale 3x a day w/meals,MAX daily dose 78 units, E11.65, # 45 mL, 6 Refills, Maintenance, 01/21/20 14:30:00 EDT, [facility]/pharmacy #1026, 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 Start Date: 01/21/20 Status: Ordered Rmi-rpb-qtnbo medical-grade oxford diabetic shoes, depth or hightop Gwi-ltq-bxrgb medical-grade oxford diabetic shoes, depth or hightop, [...] EST, 05/15/20 10:25:00 EST, Route toPharmacy Electronically, [facility]/pharmacy #1026, Parti... Start Date: 05/15/20 Stop Date: 06/12/20 Status: Ordered oxyCODONE 5 mg oral tablet 5 mg, 1, tablet, By Mouth, Every 4 hours, for 28 days, PRN pain dispense not earlier than 06/12/20, #168 tablet, Refills 0, Tot. Refills 0, Acute 07/10/20 10:25:00 EDT, 06/12/20 10:25:00 EST, Route toPharmacy Electronically, [facility]/pharmacy #1026, Parti... Start Date: 06/12/20 Stop Date: 07/10/20 Status: Ordered oxyCODONE 5 mg oral tablet 5 mg, 1, tablet, By Mouth, Every 4 hours, for 28 days, PRN pain dispense not earlier than 07/10/20, #168 tablet, Refills 0, Tot. Refills 0, Acute 08/07/20 10:25:00 EDT, 07/10/20 10:25:00 EDT, Route toPharmacy Electronically, [facility]/pharmacy #1026, Parti... Start Date: 07/10/20 Stop Date: 08/07/20 Status: Ordered Pen [place], 32 G x 4 mm BD Ultra [...] 05/01/20 9:28:00 EST, Route to Pharmacy Electronically, [facility]/pharmacy #1026, 167,... Start Date: 05/01/20 Status: Ordered TENS electrode pads TENS electrode pads, See Instructions, # 1 box, Refills 5, Tot. Refills 5, Maintenance, use as directed for back pain Dx LBP M54.9 1 box of 4, 12/06/16 14:59:01, Compound Start Date: 12/06/16 Status: Ordered Trelegy Ellipta inhalation powder 1 puffs, Inhalation, Daily, at the same time every day given by night stocker , Dr Berkowitz, # 60 each, 0 Refills, Maintenance, 11/20/19 13:03:00 EDT, Powder Start Date: 11/20/19 Status: Ordered Tresiba FlexTouch 200 units/mL subcutaneous solution See Instructions, Inject 86 units daily at 9pm, E11.65, # 45 mL, 6 Refills, Maintenance, 01/21/20 14:30:00 EDT, [facility]/pharmacy #1026, 167, cm, 01/13/20 [...] Dry Weight Start Date: 04/15/20 Status: Ordered [place] Reusable Bed Pad 34 x 36 [place] Reusable Bed Pad 34 x 36 , [...] abnormal(Confirmed) 11 12/29/11 Active Hepatitis C(Confirmed) Active 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 06/16/08 SURGEON: Danny Marie M.D. EDITOR CONTINUITY AND SCRIPT: Naima Bowling M.D. 21b/l submassive PE diagnosed on Dec 20 in [facility] 22TTE 12/22/15 in [facility]: RV dilatation, RVSP 46 23Per ECHO 05/24/17 Trace mitral regurgitation , trace TC regurgitation w no significant valve pathology 24meg colo July 2009 exc for 2 hyperplastic polyps 25Colonoscopy 2004 at [facility] [place] per letter of Dr Amor Dobbins Social History Social History Type Response Smoking Status Never (less than 100 in lifetime) entered on: 04/29/20 Sex
--- OUTSIDE RECORDS SUMMARY | 2023-10-23 09:46 | XMS_ITS | Continuity of Care Document ---
Author Organization [facility] Address [address] [place] [address]- Care Team Providers Care Classification Case Manager Name Role Phone Florinda Trinh MD Primary Care Physician [facility] Date[facility]): 08/09/19 - 12/07/19 [facility] [address] [place] [address]- [facility] Attending Physician: Leda Martin MD Admitting Physician: [...] or fever, (not to exceed 2000 mg/day) colombian, # 100 tablet, 11 Refills, Maintenance, 01/16/19 [...] mg, 2, mL, Neb, Daily, given by radial router operator , Dr Berkowitz, # 120 mL, Refills [...] 11 Refills, Maintenance, 09/25/19 11:21:00 EDT, Cream, [facility], 1 application Topically 3 times a [...] Refills, Maintenance, 03/27/19 9:10:00 EST, EC Capsule, [facility], 159, cm, 03/20/19 14:59:00 EST, Height, 88.3, kg, 12/13/18 10:17:00 EDT, Dry Weight Start Date: 03/27/19 Status: Ordered docusate sodium 100 mg oral tablet 2 tablet = 200 mg, By Mouth, 2 times a day, # 120 tablet, 11 Refills, Maintenance, 09/25/19 11:07:00 EDT, [facility], 159, cm, 05/20/19 12:19:00 EST, Height, 88.1, kg, 04/25/19 16:02:00 EST, Dry Weight Start Date: 09/25/19 Status: Ordered Eliquis 5 mg oral tablet 1 tablet = 5 mg, By Mouth, 2 times a day, # 60 tablet, 11 Refills, Maintenance, 07/22/19 8:58:00 EDT, Tablet, [facility], 159, cm, 05/20/19 12:19:00 EST, Height, 88.1, kg, 04/25/19 16:02:00 EST, Dry Weight Start Date: 07/22/19 Status: Ordered enalapril 10 mg oral tablet 10 mg, 1, tablet, By Mouth, Daily, 90 days, # 90 tablet, Refills 3, Tot. Refills 3, Maintenance, 09/19/18 15:15:30 EDT, Route to Pharmacy Electronically, [id number], [facility] Start Date: 09/19/18 Status: Ordered famotidine 40 mg oral tablet 1 tablet = 40 mg, By Mouth, Daily at bedtime, If 40 mg tablet is not available, can change to 20 mgtablet 2 tablet at bedtime, # 30 tablet, 2 Refills, Maintenance, 10/09/19 10:01:00 EDT, Tablet, [facility], 159, cm, 09/25/19 14:31... Start Date: 10/09/19 Status: Ordered ferrous sulfate 325 mg oral tablet 1 tablet = 325 mg, By Mouth, Daily, May take with food to minimize abdominal discomfort. Do not take with milk. Take preferrably with juice., # 90 tablet, 3 Refills, Maintenance, 11/22/19 14:58:00 EDT, [facility], 159, cm, 09/25/19... Start Date: 11/22/19 Status: Ordered flunisolide 25 mcg/inh nasal spray 2 puffs, Nasal, 2 times a day, Keep your head down while using dispense when patient request it, # 1 each, 11 Refills, Maintenance, 07/10/19 17:15:00 EDT, [facility]/pharmacy #0957, discontinue nasacort, 2 puffs Nasal [...] capsule, 11 Refills, Maintenance, 06/30/19 9:25:00 EDT, [facility]/pharmacy #0957, 159, cm, 05/20/19 12:19:00 EST, [...] Neb, Daily, PRN for wheezing, given by radial router operator , Dr Berkowitz, # 30 each, 0Refills, Maintenance, 11/20/19 13:06:00 EDT, Solution Start Date: 11/20/19 Status: Ordered loratadine 10 mg oral tablet 10 mg, 1, tablet, By Mouth, Daily, PRN, 90 days, # 90 tablet, Refills 3, Tot. Refills 3, Maintenance, as needed for allergy symptoms, 01/16/19 8:53:23 EDT, Route to Pharmacy Electronically, [id number], [facility]... Start Date: [...] tablet, 1 Refills, Maintenance, 09/25/19 11:46:00 EDT, [facility], 159, cm, 05/20/19 12:19:00 EST, Height, 88.1, kg, 04/25/19 16:02:00 EST, Dry Weight Start Date: 09/25/19 Status: Ordered metFORMIN 500 mg oral tablet 1 tablet = 500 mg, By Mouth, 2 times a day, Take 1 tablet 2x a day. E11.65, # 60 tablet, 11 Refills, Maintenance, 09/23/19 9:54:00 EDT, Tablet, [facility], 159, cm, 05/20/19 12:19:00 EST, Height, 88.1, kg, 04/25/19 16:02:00 EST, DrEvelyn. Start Date: 09/23/19 Status: Ordered NovoLOG FlexPen 100 units/mL subcutaneous solution See Instructions, Max daily dose 100 units per day. E11.65, # 45 mL, 11 Refills, Maintenance, 09/23/19 9:56:00 EDT, [facility], DxE11.65, 159, cm, 05/20/19 12:19:00 EST, Height, 88.1, kg, 04/25/19 16:02:00 EST, Dry Weight Start Date: 09/23/19 Status: Ordered Oun-uoo-mvkbk medical-grade oxford diabetic shoes, depth or hightop Glu-igc-fveiw medical-grade oxford diabetic shoes, depth or hightop, [...] for 28 days, dispense not earlier than 11/22/19, # 140 tablet, Refills 0, Tot. Refills 0, Acute 12/20/19 11:43:00 EDT, 11/22/19 11:43:00 EDT, Route to Pharmacy Electronically, [facility], [place]... Start Date: 11/22/19 Stop Date: 12/20/19 Status: Ordered oxyCODONE 5 mg oral tablet 5 mg, 1, tablet, By Mouth, Every 4 hours, for 28 days, dispense not earlier than 12/20/19, # 140 tablet, Refills 0, Tot. Refills 0, Acute 01/17/20 11:43:00 EDT, 12/20/19 11:43:00 EDT, Route to Pharmacy Electronically, [facility], [place]... Start Date: 12/20/19 Stop Date: 01/17/20 Status: Ordered oxyCODONE 5 mg oral tablet 5 mg, 1, tablet, By Mouth, Every 4 hours, for 28 days, dispense not earlier than 01/17/20, # 140 tablet, Refills 0, Tot. Refills 0, Acute 02/14/20 11:43:00 EST, 01/17/20 11:43:00 EDT, Route to Pharmacy Electronically, [facility], [place]... Start Date: 01/17/20 Stop Date: 02/14/20 Status: Ordered Pen [place], 32 G x 4 mm BD Ultra [...] 527 Gm,11 Refills, Maintenance, 01/16/19 8:53:22 EDT, [facility] Start Date: 01/16/19 Status: Ordered pravastatin [...] 09/25/19 11:08:00 EDT, Route to Pharmacy Electronically, [facility] Tablet, 159, cm, 05/20/19... Start Date: [...] Tot. Refills 5, Maintenance, 11/29/19 14:34:00 EDT, [facility] Electron[facility], [facility] Start Date: 11/29/19 Status: Ordered TENS electrode pads TENS electrode pads, See Instructions, # 1 box, Refills 5, Tot. Refills 5, Maintenance, use as directed for back pain Dx LBP M54.9 1 box of 4, 12/06/16 14:59:01, Compound Start Date: 12/06/16 Status: Ordered Trelegy Ellipta inhalation powder 1 puffs, Inhalation, Daily, at the same time every day given by radial router operator , Dr Berkowitz, # 60 each, 0 Refills, Maintenance, 11/20/19 13:03:00 EDT, Powder Start Date: 11/20/19 Status: Ordered Tresiba FlexTouch 200 units/mL subcutaneous solution See Instructions, Max daily dose 100 units per day. E11.65, # 18 mL, 5 Refills, Maintenance, 09/23/19 9:57:00 EDT, [facility], 159, cm, 05/20/19 12:19:00 EST, Height, 88.1, kg, 04/25/19 16:02:00 EST, Dry Weight Start Date: 09/23/19 Status: Ordered Ventolin HFA 108 mcg/inh inhalation aerosol with adapter 2 puffs, Inhalation, 4 times a day, PRN Wheezing/Shortness of Breath, dispense when patient requestit, # 18 Gm, 5 Refills, Maintenance, 07/10/19 17:15:00 EDT, [facility]/pharmacy #[id number], 159, cm, 05/20/19 12:19:00 EST, Height, 88.1, kg, 04/25/19 16:02:00 EST... Start Date: 07/10/19 Status: Ordered Vitamin D3 1000 intl units oral tablet 1 tablet = 1,000 International_Units, By Mouth, Daily, # 90 tablet, 1 Refills, Maintenance, 10/09/19 10:01:00 EDT, [facility] [place], 159, cm, 09/25/19 14:31:00 EDT, Height, 88.1, kg, 04/25/19 16:02:00 EST, Dry Weight Start Date: 10/09/19 Status: Ordered [place] Reusable Bed Pad 34 x 36 [place] Reusable Bed Pad 34 x 36 , [...] apnea)(Confirmed) Active Osteopenia(Confirmed) 18, 19 11/16/12 Active *[id number]-[facility] Partn david [place](Confirmed) Active Peripheral [...] 1 11left mild sensorineural hearing loss by [facility] Hearing Evaluation on 12/29/11 12Narcotic contract w Dr Florinda Trinh 13Per ECHO 05/24/17 Mild concentric left ventricular hypertrophy 14Per ECHO 05/24/17 Trace mitral regurgitation , mild TC regurgitation w no significant valve pathology 150/ PHYSICIAN: Daniel Lamb M.D. DIAGNOSIS: Right ureterolithiasis. [...] lower parathyroidectomy. 06/16/08 SURGEON: Danny Marie M.D. GRIPPER INSTALLER: Naima Bowling M.D. 21b/l submassive PE diagnosed on Dec 20 in [facility] 22TTE 12/22/15 in [facility]: RV dilatation, RVSP 46 23Per ECHO 05/24/17 Trace mitral regurgitation , trace TC regurgitation w no significant valve pathology 24meg colo July 2009 exc for 2 hyperplastic polyps 25Colonoscopy 2004 at [facility] [place] per letter of Dr Amor Dobbins Social History Social History Type Response Smoking Status Never (less than 100 in lifetime) entered on: 04/17/19 Sex
--- OUTSIDE RECORDS SUMMARY | 2023-10-23 09:47 | XMS_ITS | Continuity of Care Document ---
Author Organization [facility] Address [address] [place] [address]- Care Team Providers Care Rodent Exterminator Name Role Phone Gayathri GARZA, Florinda Primary Care Physician Encounter [facility] Date(s): 09/18/21 - 01/16/22 [facility]/[place] [address]- Attending Physician: Not on Staff, Attending MD Allergies, Adverse Reactions, Alerts Substance Reaction Severity Status penicillin RASH Active morphine itchy Active Bactrim 1 hyperkalemia Active Lidocaine, Topical Active 1Hyperkalemia when used together with lisinopril Immunizations Given and Recorded Vaccine Date Status Refusal Reason zoster vaccine, inactivated 12/08/21 Given zoster vaccine, inactivated 09/15/21 Given SARS-CoV-2 mRNA (rkooecb-rtcu-[id number]) vax 09/15/21 Given SARS-CoV-2 (COVID-19) mRNA BNT-162b2 [...] 01/19/22 13:10:00 EDT, 12/22/21 13:10:00 EDT, Tablet, [facility] [place]... Start Date: 12/22/21 Stop Date: 01/19/22 Status: Ordered acetaminophen-hydrocodone 300 mg-7.5 mg oral tablet 2 tablet, By Mouth, Every 8 hours, for 28 days, for pain fill date Jan 19, 2022 Dx Chronic LBP, renal colic, # 168 tablet, 0 Refills, Acute 02/16/22 13:10:00 EST, 01/19/22 13:10:00 EDT, Tablet, [facility], Partial fi... Start Date: 01/19/22 Stop Date: 02/16/22 Status: Ordered acetaminophen-hydrocodone 300 mg-7.5 mg oral tablet 2 tablet, By Mouth, Every 8 hours, for 28 days, for pain fill date Feb 16, 2022 Dx Chronic LBP, renal colic, # 168 tablet, 0 Refills, Acute 03/16/22 13:10:00 EST, 02/16/22 13:10:00 EST, Tablet, [facility], Partial greyson... Start Date: 02/16/22 Stop [...] Refills, Maintenance, 07/21/21 12:43:00 EDT, [facility]/pharmacy #1026, 1 [...] needed for anxiety and 1tab at HS wcnsak-zou-nzbys, # 60 tablet, 11 Refills, Maintenance, 09/15/21 [...] Maintenance, 04/21/21 18:12:00 EST, Tablet, [facility]/pharmacy #[id number], 160, cm, 03/03/21 11:23:00 EST, Height, 80.6, kg, 06/03/20 19:00:00 EST, Dry Weight Start Date: 04/21/21 Status: Ordered escitalopram 20 mg oral tablet 1 tablet = 20 mg, By Mouth, Daily, # 30 tablet, 11 Refills, Maintenance, 12/06/21 15:04:00 EDT, Tablet, [facility], Partial fill upon patient [...] Refills, Maintenance, 07/12/21 18:53:00 EDT, Tablet,[facility]/pharmacy #1026, Discontinue 30- day supply presc... Start Date: 07/12/21 Stop Date: 07/07/22 Status: Ordered ferrous sulfate 325 mg oral tablet 1 tablet = 325 mg, By Mouth, Daily, May take with food to minimize abdominal discomfort. Do not take with milk. Take preferrably with juice., # 90 tablet, 3 Refills, Maintenance, 09/15/21 8:56:00 EDT, [facility]/pharmacy #[id number], 160, cm, 09/15/21 8:15:00 [...] Pharmacy Electronically, [facility]/pharmacy #1026, Can use with HCTZ, [...] 3 Refills, Maintenance, 11/19/21 14:28:00 EDT, [facility]/pharmacy #1026, 160, cm, 11/05/21 9:50:00 [...] HDZ, # 90 tablet, 1 Refills, [facility] STORE [id number], 90, TOME GAGE TABLETA POR VIA ORAL TODOS LOS HDZ, 160, cm, 09/21/21 8:54:00 EDT, Height, 80.6,kg, 06/03/20 19:00:00 EST, Dry Weight Start Date: 10/13/21 Status: Ordered Nexium 40 mg oral enteric coated capsule 1 capsule = 40 mg, By Mouth, Daily, 30 minutes before breakfast, # 30 capsule, 11 Refills, Maintenance, 04/28/21 14:00:00 EST, [facility]/pharmacy #1026, Discontinue pantoprazole, 160, cm, [...] 09/21/21 9:23:00 EDT, Route to Pharmacy Electronically, [facility], Partial fill upon patient request if [...] 78.8, kg,... Start Date: 01/21/20 Status: Ordered Vmr-vly-patkm medical-grade oxford diabetic shoes, depth or hightop Cry-bhg-gqyaq medical-grade oxford diabetic shoes, depth or hightop, See Instructions, # 1 each, Refills 0, Tot. 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 Start Date: 07/21/21 Status: Ordered Pen [place], 32 G x 4 mm BD Ultra Fine III See Instructions, # 360 each, Refills 3, Tot. Refills 3, Maintenance, Use as directed for insulin use 4 times a day DX IDDM; 90 days, 02/01/21 10:40:00 EDT, Compound, 160, cm, 01/28/21 13:05:00 EDT, Height, 80.6, kg, 06/03/20 19:00:00 EST D... Start Date: 02/01/21 Status: Ordered PLEASE [...] the same time every day Given by Dredge Pumper, Dr. Michael Berkowitz, # 60 each, 0 Refills, Maintenance, 07/21/21 11:59:00 EDT, Powder, Partial fill upon patient request if the prescription is for a schedule II opi... Start Date: 07/21/21 Status: Ordered Tresiba FlexTouch 200 units/mL subcutaneous solution See Instructions, INJECT 86 UNITS DAILY AT 9PM, # 45 Unknown, 6 Refills, [id number], 160, cm, 06/21/21 9:57:00 EDT, Height, 80.6, [...] Date: 02/15/21 Stop Date: 05/10/21 Status: Ordered [place] Reusable Bed Pad 34 x 36 [place] Reusable Bed Pad 34 x 36 , [...] Osteopenia 18, 19, 20 Confirmed 11/16/12 Active *[id number] Draw Frame Tender Karine More Confirmed Active Peripheral venous insufficiency [...] lower parathyroidectomy. 06/16/08 SURGEON: Danny Marie M.D. BROADCAST JOURNALIST: Naima Bowling M.D. 22b/l submassive PE diagnosed on Dec 20 in [facility] 23TTE 12/22/15 in [facility]: RV dilatation, RVSP 46 24Per ECHO 05/24/17 Trace mitral regurgitation , trace TC regurgitation w no significant valve pathology 25meg colo July 2009 exc for 2 hyperplastic polyps 26Colonoscopy 2004 at [facility] [place] per letter of Dr Amor Dobbins Social History Social History Type Response Smoking Status Never (less than 100 in lifetime) entered on: 10/22/20 Sex Patient Care team information Personnel Name: Gayathri GARZA, [facility] Address: Address: [address] [place] [address]
--- OUTSIDE RECORDS SUMMARY | 2023-10-23 09:47 | XMS_ITS | Continuity of Care Document ---
Author Organization [facility] Address [address] [place] [address]- Care Team Providers Care Senior Materials Planner Name Role Phone Gayathri GARZA, Florinda Primary Care Physician [place] [facility] Date(s): 07/22/19 - 07/29/19 [facility]/[address] [address]- [facility] Attending Physician: Florinda Trinh MD Admitting Physician: [...] or fever, (not to exceed 2000 mg/day) mauritian, # 100 tablet, 11 Refills, Maintenance, 01/16/19 [...] mL, 1 Refills, Maintenance, 07/19/19 14:55:00 EDT, [facility], Drops should remain in ear for [...] Refills, Maintenance, 03/27/19 9:10:00 EST, EC Capsule, [facility] [...] 11 Refills, Maintenance, 07/22/19 8:58:00 EDT, Tablet, [facility], 159, cm, 05/20/19 12:19:00 EST, Height, 88.1, kg, 04/25/19 16:02:00 EST, Dry Weight Start Date: 07/22/19 Status: Ordered enalapril 10 mg oral tablet 10 mg, 1, tablet, By Mouth, Daily, 90 days, # 90 tablet, Refills 3, Tot. Refills 3, Maintenance, 09/19/18 15:15:30 EDT, Route to Pharmacy Electronically, [id number], [facility] Start Date: 09/19/18 Status: Ordered famotidine 40 mg oral tablet 1 tablet = 40 mg, By Mouth, Daily at bedtime, If 40 mg tablet is not available, can change to 20 mgtablet 2 tablet at bedtime, # 30 tablet, 5 Refills, Maintenance, 04/17/19 9:17:00 EST, Tablet, [facility], 159, cm, 04/17/19 8:24:0... Start Date: 04/17/19 Status: Ordered flunisolide 25 mcg/inh nasal spray 2 puffs, Nasal, 2 times a day, Keep your head down while using dispense when patient request it, # 1 each, 11 Refills, Maintenance, 07/10/19 17:15:00 EDT, [facility]/pharmacy #0957, discontinue nasacort, 2 puffs [...] capsule, 11 Refills, Maintenance, 06/30/19 9:25:00 EDT, [facility]/pharmacy #0957, 159, cm, 05/20/19 12:19:00 [...] 01/16/19 8:53:23 EDT, Route to Pharmacy Electronically, [id number], [facility] [place]... Start Date: 01/16/19 Status: Ordered Lyrica 100 mg oral capsule 1 capsule = 100 mg, By Mouth, 2 times a day, discontinue lyrica 75mg, # 60 capsule, 5 Refills, Maintenance, 07/22/19 8:54:00 EDT, Capsule, [facility], 159, cm, 05/20/19 12:19:00 EST, Height, 88.1, kg, 04/25/19 16:02:00 EST, Dry W... Start Date: 07/22/19 Status: Ordered Maalox Total Stomach Relief 525 [...] mL, 11 Refills, Maintenance, 07/10/19 17:15:00 EDT, [facility]/pharmacy #0957, DxE11.65, 159, cm, 05/20/19 12:19:00 EST, Height, 88.1, kg, 04/25/19 16:02:00 EST, Dry Weight Start Date: 07/10/19 Status: Ordered Qvj-gnn-quuzz medical-grade oxford diabetic shoes, depth or hightop Kru-ont-katej medical-grade oxford diabetic shoes, depth or hightop, [...] 08/02/19 12:47:00 EDT, Route to Pharmacy Electronically, [facility], [place]... Start Date: 08/02/19 Stop Date: 08/30/19 Status: Ordered oxyCODONE 5 mg oral tablet 5 mg, 1, tablet, By Mouth, Every 4 hours, for 28 days, dispense not earlier than 08/30/19, # 137 tablet, Refills 0, Tot. Refills 0, Acute 09/27/19 12:47:00 EDT, 08/30/19 12:47:00 EDT, Route to Pharmacy Electronically, [facility], [place]... Start Date: 08/30/19 Stop Date: 09/27/19 Status: Ordered oxyCODONE 5 mg oral tablet 5 mg, 1, tablet, By Mouth, Every 4 hours, for 28 days, dispense not earlier than 09/27/19, # 137 tablet, Refills 0, Tot. Refills 0, Acute 10/25/19 12:47:00 EDT, 09/27/19 12:47:00 EDT, Route to Pharmacy Electronically, [facility], [place]... Start Date: 09/27/19 Stop Date: 10/25/19 Status: Ordered oxyCODONE 5 mg oral tablet 5 mg, 1, tablet, By Mouth, Every 4 hours, for 28 days, dispense not earlier than 07/05/19, # 137 tablet, Refills 0, Tot. Refills 0, Acute 08/02/19 12:47:00 EDT, 07/05/19 12:47:00 EDT, Route to Pharmacy Electronically, [facility], [place]... Start Date: 07/05/19 Stop Date: 08/02/19 Status: Ordered Pen [place], 32 G x 4 mm BD Ultra [...] YOU ARE NOT THE PRESCRIBE... Start Date: 6/14/16 Status: Ordered PLEASE DO NOT ERASE MEDICATIONS/MEDICAL SUPPLIES FROM OUTPATIENT MED LIST IF [facility] PLEASE DO NOT ERASE MEDICATIONS/MEDICAL [...] EST,Dry Weight Start Date: 07/08/19 Status: Ordered Senna 8.6 mg oral tablet 17.2 mg, 2, tablet, By Mouth, Daily at bedtime, PRN, # 60 tablet, Refills 11, Tot. Refills 11, Maintenance, for constipation, 05/20/19 12:31:00 EST, Route to Pharmacy Electronically, [facility] Tablet, 159, cm, 05/20/19 12:19:00 ES... [...] Tot. Refills 5, Maintenance, 05/22/19 20:38:00 EST, [facility] Pharmacy Electronically, [facility] Start Date: 05/22/19 Status: [...] mL, 2 Refills, Maintenance, 07/10/19 15:26:00 EDT, [facility]/pharmacy #0957, 159, cm, 05/20/19 12:19:00 EST, Height, 88.1, kg, 04/25/19 16:02:00 EST, DryWeight Start Date: 07/10/19 Status: Ordered Urinary incontinence pads Urinary incontinence [...] Gm, 5 Refills, Maintenance, 07/10/19 17:15:00 EDT, [facility]/pharmacy #0957, 159, cm, 05/20/19 12:19:00 EST, Height, 88.1, kg, 04/25/19 16:02:00 EST... 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-LBP(Confirmed) 10 Active Hypercholesterolemia(Confirmed) Active Hypertension(Confirmed) Active Hysterectomy(Confirmed) Active Incontinence of urine(Confirmed) Active Iron deficiency anemia(Confirmed) Active Left ventricular hypertrophy(Confirmed) 11 Active Memory impairment(Confirmed) Active Mitral regurgitation(Confirmed) 12 05/24/17 Active Nephrolithiasis(Confirmed) 13, 14, 15 06/11/02 Active Obesity(Confirmed) Active JENNIFER (obstructive sleep apnea)(Confirmed) Active Osteopenia(Confirmed) 16, 17 11/16/12 Active *[id number]-Care Partn david [place](Confirmed) Active Peripheral venous insufficiency(Confirmed) [...] 2 peroneal veins diagnosed on Dec 20 [facility] 5insulin dependent 6Per ECHO 05/24/1718 Grade I, mild diastolic dysfunction with impaired LV relaxation, which may be normal for the patient's age. 7EGD on 06/24/16 by GI, Dr Damien caballero gastritis and esophageal varices grade 1 8EGD on 06/24/16 by GI, Dr Damien caballero gastritis and esophageal varices grade 1 9left mild sensorineural hearing loss by [facility] Hearing Evaluation on 12/29/11 10Narcotic contract [...] lower parathyroidectomy. 06/16/08 SURGEON: Danny Marie M.D. WET POUR MIXER: Naima Bowling M.D. 19b/l submassive PE diagnosed on Dec 20 in [facility] 20TTE 12/22/15 in [facility]: RV dilatation, RVSP 46 21Per ECHO 05/24/17 Trace mitral regurgitation , trace TC regurgitation w no significant valve pathology 22meg colo July 2009 exc for 2 hyperplastic polyps 23Colonoscopy 2004 at [facility] [place] per letter of Dr Amor Dobbins Social History Social History Type Response Smoking Status Never (less than 100 in lifetime) entered on: 04/17/19 Sex
--- OUTSIDE RECORDS SUMMARY | 2023-10-23 09:47 | XMS_ITS | Continuity of Care Document ---
Author Organization [facility] Address Unknown Care Team Providers Care Loan Operations Specialist Name Role Phone Gayathri GARZA, Florinda Primary Care Physician Encounter [facility] Date(s): 01/22/21 - 02/21/21 [facility] Allergies, Adverse Reactions, Alerts Substance [...] exceed 2000 mg/day) kiswahili, # 100 tablet, 11 Refills, Maintenance, 08/14/20 10:13:00 EDT, [facility]/pharmacy #1026, 160, cm, 08/14/20 9:34:00 EDT, [...] 11 Refills, Maintenance, 01/18/21 18:00:00 EDT, Tablet, [facility]/pharmacy #1026, 160, cm, 10/22/20 9:15:00 EDT, Height, 80.6, kg, 06/03/20 19:00:00 EST, Dry Weight Start Date: 01/18/21 Status: Ordered escitalopram 20 mg oral tablet 1 tablet = 20 mg, By Mouth, Daily, Discontinue duloxetine 60 mg, # 30 tablet, 11 Refills, Maintenance, 12/09/20 11:15:00 EDT, Tablet, [facility]/pharmacy #1026, Partial fill upon patient request [...] 78.8, kg,... Start Date: 01/21/20 Status: Ordered Gnx-rbs-gskjm medical-grade oxford diabetic shoes, depth or hightop Xqb-oiy-uhhhc medical-grade oxford diabetic shoes, depth or hightop, [...] to oxycodone 10 mg 0.5 tablets 4 [id number] days for 84 tablets, # 168 tablet, [...] 04/16/21 Stop Date: 05/14/21 Status: Ordered Pen [place], 32 G x 4 mm BD [...] 527 Gm,11 Refills, Maintenance, 01/27/20 19:13:00 EDT, [facility]/pharmacy #1026, 17- 34 Gm By Mouth [...] 30 tablet, 5 Refills, Maintenance, [id number], 160, cm, 10/22/20 9:15:00 EDT, Height, 80.6, kg, 06/03/20 19:00:00 EST, Dry Weight Start Date: 11/13/20 Status: Ordered Senna 8.6 mg oral tablet 17.2 mg, 2, tablet, By Mouth, 2 times a day, PRN, discontinue docusate, # 60 tablet, Refills 11, Tot. Refills 11, Maintenance, for constipation, 02/10/20 11:22:00 EST, Route to Pharmacy Electronically, [facility]/pharmacy #1026 Tablet, 167, cm, 01/13/20 8:5... [...] Maintenance, 10/15/20 16:28:00 EDT, Routeto Pharmacy Electronically, [facility]/pharmacy #1026, 160... Start Date: 10/15/20 Status: [...] 02/15/21 11:39:00 EST, Route to Pharmacy Electronically, [facility]/pharmacy #[id number],Partial fill upon patient request if the prescrip... Start Date: 02/15/21 Stop Date: 03/29/21 Status: Ordered Trelegy Ellipta inhalation powder 1 puffs, Inhalation, Daily, at the same time every day given by crm specialist , Dr Berkowitz, # 60 each, 0 Refills, Maintenance, 11/20/19 13:03:00 EDT, Powder Start Date: 11/20/19 Status: Ordered Tresiba FlexTouch 200 units/mL subcutaneous solution See Instructions, Inject 55 units daily at 9pm, E11.65. titrate accordingly, # 45 mL, 6 Refills, Maintenance, 01/21/20 14:30:00 EDT, [facility]/pharmacy #1026, 167, cm, 01/13/20 8:54:00 EDT, [...] Date: 02/15/21 Stop Date: 05/10/21 Status: Ordered [place] Reusable Bed Pad 34 x 36 [place] Reusable Bed Pad 34 x 36 , [...] 11 Refills, Maintenance, 10/22/20 10:19:00 EDT, Tablet, [facility]/pharmacy #1026, Partial fill upon patient request if the prescription is for a schedule II opioid drug., 1 tablet B... 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 06/16/08 SURGEON: Danny Marie M.D. WRAP TURNER: Naima Bowling M.D. 21b/l submassive PE diagnosed on Dec [address] [facility] 22TTE 12/22/[address] [facility]: RV dilatation, RVSP 46 23Per ECHO 05/24/17 Trace mitral regurgitation , trace TC regurgitation w no significant valve pathology 24meg colo July 2009 exc for 2 hyperplastic polyps 25Colonoscopy 2004 at [facility] [place] per letter of Dr Amor Dobbins Social History Social History Type Response Smoking Status Never (less than 100 in lifetime) entered on: 10/22/20 Sex
--- OUTSIDE RECORDS SUMMARY | 2023-10-23 09:47 | XMS_ITS | Continuity of Care Document ---
Author Organization [facility] Address [address] [place] [address]- Care Team Providers Care Dry Box Tender Name Role Phone Gayathri GARZA, Florinda Primary Care Physician Encounter [facility] Date(s): 06/15/20 - 07/15/20 [facility] [address], [place] [address] Referring Physician: Marisabel Camarillo Allergies, Adverse Reactions, [...] or fever, (not to exceed 2000 mg/day) greek, # 100 tablet, 5 Refills, Maintenance, 01/22/20 9:18:00 EDT, [facility]/pharmacy #1026, 167, [...] 06/12/20 8:36:00 EST, Route to Pharmacy Electronically, [facility]/pharmacy #1026, 160, cm, 06/04/20 11:29:00 EST, Height, 80.6, kg, 06/03/20 19:00:00 EST, Dry Weight Start Date: 06/12/20 Status: Ordered ammonium lactate 12% topical cream 1 applicator, Topically, 2 times a day, # 280 Gm, 11 Refills, Maintenance, 01/27/20 19:13:00 EDT, [facility]/pharmacy #1026, 1 applicator Topically 2 times a day, 167, cm, 01/13/20 8:54:00 EDT, Height, 78.8, kg, 01/01/20 3:41:00 EDT, Dry Weight Start Date: 01/27/20 Status: Ordered Baqsimi Two Pack 3 mg nasal powder = 3 mg, Naris, Right, Once, Please use for a low blood sugar emergency, may repeat in 15 minutes, #2 each, 3 Refills, Soft Stop, 06/26/20 7:30:00 EDT, [facility]/pharmacy #1026, Partial fill upon patient request if the prescription is for a schedule II op... Start Date: 06/26/20 Status: Ordered calcium (as citrate)-vitamin D 315 mg-250 intl units oral tablet 2 tablet, By Mouth, 2 times a day, for 30 days, calcium citrate, # 120 tablet, 11 Refills, Hard Stop 01/21/21 19:13:00 EDT, 01/27/20 19:13:00 EDT, Tablet, [facility]/pharmacy #1026, 167, cm, 01/13/20 8:54:00 EDT, Height, 78.8, kg, 01/01/20 3:41:00 EDT, Dry... Start Date: 01/27/20 Stop Date: 01/21/21 Status: Ordered capsaicin 0.025% topical cream 1 application, Topically, 3 times a day, # 90 Gm, 11 Refills, Maintenance, 02/10/20 11:22:00 EST, Cream, [facility]/pharmacy #1026, 1 application Topically 3 [...] capsule, 3 Refills, Maintenance, 06/30/20 14:54:00 EDT, [facility]/pharmacy #1026, 160, cm, 06/12/20 9:01:00 [...] 06/24/20 9:08:00 EDT, Route to Pharmacy Electronically, [facility]/pharmacy #1026, 160, cm, 06/12/20 9:01:00 EST, Height, 80... Start Date: 06/24/20 Status: Ordered NovoLOG FlexPen 100 units/mL subcutaneous solution See Instructions, Inject up to 26 untis via Insulin sliding scale 3x a day w/meals,MAX daily dose 78 units, E11.65, # 45 mL, 6 Refills, Maintenance, 01/21/20 14:30:00 EDT, [facility]/pharmacy #1026, 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 Start Date: 01/21/20 Status: Ordered Vqi-god-ylpst medical-grade oxford diabetic shoes, depth or hightop Iyu-fer-uldey medical-grade oxford diabetic shoes, depth or hightop, [...] 07/10/20 Stop Date: 08/07/20 Status: Ordered Pen [place], 32 G x 4 mm BD Ultra [...] 02/10/20 11:22:00 EST, Route to Pharmacy Electronically, [facility]/pharmacy #1026 Tablet, 167, cm, 01/13/20 [...] 05/01/20 9:28:00 EST, Route to Pharmacy Electronically, [facility]/pharmacy #1026, 167,... Start Date: 05/01/20 Status: Ordered TENS electrode pads TENS electrode pads, See Instructions, # 1 box, Refills 5, Tot. Refills 5, Maintenance, use as directed for back pain Dx LBP M54.9 1 box of 4, 12/06/16 14:59:01, Compound Start Date: 12/06/16 Status: Ordered Trelegy Ellipta inhalation powder 1 puffs, Inhalation, Daily, at the same time every day given by certified medical technician , Dr Berkowitz, # 60 each, [...] Date: 06/12/20 Stop Date: 09/04/20 Status: Ordered [place] Reusable Bed Pad 34 x 36 [place] Reusable Bed Pad 34 x 36 , [...] apnea)(Confirmed) Active Osteopenia(Confirmed) 18, 19 11/16/12 Active *[id number] Care Partn igro More(Confirmed) Active Peripheral venous insufficiency(Confirmed) 10/31/11 Active [...] 1 11left mild sensorineural hearing loss by [facility] Hearing Evaluation on 12/29/11 12Narcotic contract [...] lower parathyroidectomy. 06/16/08 SURGEON: Danny Marie M.D. ASSISTANT MECHANIC: Naima Bowling M.D. 21b/l submassive PE diagnosed on Dec 20 in [facility] 22TTE 12/22/15 in [facility]: RV dilatation, RVSP 46 23Per ECHO 05/24/17 Trace mitral regurgitation , trace TC regurgitation w no significant valve pathology 24meg colo July 2009 exc for 2 hyperplastic polyps 25Colonoscopy 2004 at [facility] [place] per letter of Dr Amor Dobbins Social History Social History Type Response Smoking Status Never (less than 100 in lifetime) entered on: 06/12/20 Sex
--- OUTSIDE RECORDS SUMMARY | 2023-10-23 09:47 | XMS_ITS | Continuity of Care Document ---
Author Organization [facility] Address [address] [place] [address]- Care Team Providers Care Head Silverman Name Role Phone Gayathri GARZA, Florinda Primary Care Physician [facility] Date[facility]): 06/24/22 - 07/24/22 [facility] [address] [place] [id number]- Allergies, Adverse Reactions, Alerts Substance Reaction Severity Status enalapril Active penicillin RASH Active morphine itchy Active Bactrim 1 hyperkalemia Active Lidocaine, Topical Active 1Hyperkalemia when used together with lisinopril Immunizations Given and Recorded Vaccine Date Status Refusal Reason [id number] 12y+ bivalent booster vax 05/25/22 Given influenza [...] zoster vaccine, inactivated 09/15/21 Given SARS-CoV-2 mRNA (mwmfjlr-iydv-olohp) vax 09/15/21 Given SARS-CoV-2 (COVID-19) mRNA BNT-162b2 [...] Biotene Moisturizing Mouth oral spray See Instructions, Beacon directly into mouth; spray is safe to [...] needed for anxiety and 1tab at HS jgckof-dcy-zngzy, # 60 tablet, 11 Refills, Maintenance, 09/15/21 9:02:00 EDT, [facility]/pharmacy #[id number], Partial fill upon [...] 9:47:00 EDT, [facility] STORE [id number], 158, cm, 06/16/22 11:27:00 EST, Height, 76, [...] capsule, 2 Refills, Maintenance, 05/02/22 15:39:00 EST, [facility]/pharmacy #[id number], Discontinue pantoprazole, 160, [...] 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 Start Date: 03/09/22 Status: Ordered Kxq-gfw-owtfo medical-grade oxford diabetic shoes, depth or hightop Fye-kcs-uohbj medical-grade oxford diabetic shoes, depth or hightop, [...] 08/19/22 Stop Date: 09/16/22 Status: Ordered Pen [place], 32 G x 4 mm BD Ultra [...] the same time every day Given by [place], Dr. Michael Berkowitz, # 60 each, 0 Refills, Maintenance, 07/21/21 11:59:00 EDT, Powder, Partial fill upon patient request if the prescription is for a schedule II opi... 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 06/16/08 SURGEON: Danny Marie M.D. [facility] MAGISTRATE: Naima Bowling M.D. 22b/l submassive PE diagnosed on Dec 20 in [facility] 23TTE 12/22/15 in [facility]: RV dilatation, RVSP 46 24Per ECHO 05/24/17 Trace mitral regurgitation , trace TC regurgitation w no significant valve pathology 25meg colo July 2009 exc for 2 hyperplastic polyps 26Colonoscopy 2004 at [facility] [place] per letter of Dr Amor Dobbins Social History Social History Type Response Smoking Status Never (less than 100 in lifetime) entered on: 10/22/20 Sex Patient Care team information Care Team Personnel Name: Diamond Weiss RN Position: [facility] RN Member Role: Primary Care Nurse Name: Tiara Cavazos RN Position: [facility] OB RN Member Role: Primary Care Nurse Name: Shreya Boss RN Position: [facility] RN Member Role: Primary Care Nurse Name: Jaylin Hernandez RN Position: [facility] Onco RN Member Role: Primary Care Nurse Name: Glen Cota MD Position: [facility] Renal MD Member Role: Lifetime Consulting Physician Address: Address: [address] [place] [address] [facility] [address] Name: Florinda Trinh MD Position: [facility] Primary Care Physician Member Role: PCP Address: Address: [address] [place] [address] Care Team Related Persons Name: JOSE ELIAS TODD Address: [place] [address] Name: JOSE ELIAS KIRKLAND Address: home [address] [place] [id number] Name: LEONIE SCHRADER Address: [place] [address]
--- OUTSIDE RECORDS SUMMARY | 2023-10-23 09:47 | XMS_ITS | Continuity of Care Document ---
Author Organization [facility] Address [address] [place] [address]- Care Team Providers Care Vial Gauger Name Role Phone Gayathri GARZA, Florinda Primary Care Physician [facility] Date[facility]s): 12/19/19 - 01/18/20 [facility] [address] [place] [address]- [facility] Allergies, Adverse Reactions, Alerts Substance Reaction [...] or fever, (not to exceed 2000 mg/day) scottish, # 100 tablet, 11 Refills, Maintenance, 01/16/19 [...] 2, mL, Neb, Daily, given by credit risk management director , Dr Berkowitz, # 120 mL, Refills [...] 11 Refills, Maintenance, 09/25/19 11:21:00 EDT, Cream, [facility], 1 application Topically 3 times a day, [...] Refills, Maintenance, 03/27/19 9:10:00 EST, EC Capsule, [facility], 159, cm, 03/20/19 14:59:00 EST, Height, 88.3, kg, 12/13/18 10:17:00 EDT, Dry Weight Start Date: 03/27/19 Status: Ordered dexamethasone 6 mg oral tablet 1 tablet = 6 mg, By Mouth, Daily, # 3 tablet, 0 Refills, Maintenance, 01/07/20 12:02:00 EDT, Tablet, [facility], 167, cm, 01/06/20 8:40:00 EDT, Height, 78.8, kg, 01/01/20 3:41:00 EDT, Dry Weight Start Date: 01/07/20 Stop Date: 01/10/20 Status: Ordered docusate sodium 100 mg oral tablet 2 tablet = 200 mg, By Mouth, 2 times a day, # 120 tablet, 11 Refills, Maintenance, 09/25/19 11:07:00 EDT, [facility], 159, cm, 05/20/19 12:19:00 EST, Height, 88.1, kg, 04/25/19 16:02:00 EST, Dry Weight Start Date: 09/25/19 Status: Ordered Eliquis 5 mg oral tablet 1 tablet = 5 mg, By Mouth, 2 times a day, # 60 tablet, 11 Refills, Maintenance, 07/22/19 8:58:00 EDT, Tablet, [facility], 159, cm, 05/20/19 12:19:00 EST, Height, 88.1, kg, 04/25/19 16:02:00 EST, Dry Weight Start Date: 07/22/19 Status: Ordered famotidine 40 mg oral tablet 1 tablet = 40 mg, By Mouth, Daily at bedtime, If 40 mg tablet is not available, can change to 20 mgtablet 2 tablet at bedtime, # 30 tablet, 2 Refills, Maintenance, 10/09/19 10:01:00 EDT, Tablet, [facility], 159, cm, 09/25/19 14:31... Start Date: 10/09/19 Status: Ordered ferrous sulfate 325 mg oral tablet 1 tablet = 325 mg, By Mouth, Daily, May take with food to minimize abdominal discomfort. Do not take with milk. Take preferrably with juice., # 90 tablet, 3 Refills, Maintenance, 11/22/19 14:58:00 EDT, [facility], 159, cm, 09/25/19... Start Date: 11/22/19 Status: [...] 01/16/19 8:53:23 EDT, Route to Pharmacy Electronically, [id number], [facility]... Start Date: 01/16/19 Status: Ordered metFORMIN 500 [...] 78.8, kg,... Start Date: 01/17/20 Status: Ordered Awp-dcx-sjomf medical-grade oxford diabetic shoes, depth or hightop Sav-udf-wjyme medical-grade oxford diabetic shoes, depth or hightop, [...] 01/17/20 11:43:00 EDT, Route to Pharmacy Electronically, [facility]/pharmacy #[id number], Part... Start Date: 01/17/20 Stop Date: 02/14/20 Status: Ordered oxyCODONE 5 mg oral tablet 5 mg, 1, tablet, By Mouth, Every 4 hours, for 28 days, PRN pain dispense not earlier than 02/14/20, # 168 tablet, Refills 0, Tot. Refills 0, Acute 03/13/20 11:43:00 EST, 02/14/20 11:43:00 EST, Route to Pharmacy Electronically, [facility]/pharmacy #1972, Part... Start Date: 02/14/20 Stop Date: 03/13/20 Status: Ordered Pen [place], 32 G x 4 mm BD Ultra [...] 527 Gm,11 Refills, Maintenance, 01/16/19 8:53:22 EDT, [facility] Start Date: 01/16/19 Status: Ordered Protonix 40 [...] 09/25/19 11:08:00 EDT, Route to Pharmacy Electronically, [facility] Tablet, 159, cm, 05/20/19... Start Date: 09/25/19 [...] Tot. Refills 5, Maintenance, 11/29/19 14:34:00 EDT, [facility], [facility] Start Date: 11/29/19 Status: Ordered TENS electrode pads TENS electrode pads, See Instructions, # 1 box, Refills 5, Tot. Refills 5, Maintenance, use as directed for back pain Dx LBP M54.9 1 box of 4, 12/06/16 14:59:01, Compound Start Date: 12/06/16 Status: Ordered Trelegy Ellipta inhalation powder 1 puffs, Inhalation, Daily, at the same time every day given by credit risk management director , Dr Berkowitz, # 60 each, 0 Refills, Maintenance, 11/20/19 13:03:00 EDT, Powder Start Date: 11/20/19 Status: Ordered Tresiba FlexTouch 200 units/mL subcutaneous solution See Instructions, Inject 86 units daily at 9pm, E11.65, # 45 mL, 6 Refills, Maintenance, 01/17/20 16:28:00 EDT, [facility]/pharmacy #[id number], 167, cm, 01/13/20 8:54:00 [...] tablet, 1 Refills, Maintenance, 10/09/19 10:01:00 EDT, [facility], 159, cm, 09/25/19 14:31:00 EDT, Height, 88.1, kg, 04/25/19 16:02:00 EST, Dry Weight Start Date: 10/09/19 Status: Ordered [place] Reusable Bed Pad 34 x 36 [place] Reusable Bed Pad 34 x 36 , [...] 11 12/29/11 Active 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-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(Confirmed) 12 Active Hypercholesterolemia(Confirmed) Active Hyperparathyroidism s/p righ t lower parathyroidectomy 06/16/2008(Confirmed) Active Hypertension(Confirmed) Active Hysterectomy(Confirmed) Active Incontinence of urine(Confirmed) Active Iron deficiency anemia(Confirmed) Active Left ventricular hypertrophy(Confirmed) 13 Active Memory impairment(Confirmed) Active Mitral regurgitation(Confirmed) 14 05/24/17 Active Nephrolithiasis(Confirmed) 15, 16, 17 06/11/02 Active Obesity(Confirmed) Active JENNIFER (obstructive sleep apnea)(Confirmed) Active Osteopenia(Confirmed) 18, 19 11/16/12 Active *[id number]-Care Partn david Fountain(Confirmed) Active Peripheral venous insufficiency(Confirmed) [...] peroneal veins diagnosed on Dec 20 [facility] 6insulin dependent 7Per ECHO 05/24/1718 Grade [...] sensorineural hearing loss by [facility] Hearing Evaluation on 12/29/11 12Narcotic contract [...] lower parathyroidectomy. 06/16/08 SURGEON: Danny Marie M.D. TAB CARD PRESS OPERATOR: Naima Bowling M.D. 21b/l submassive PE diagnosed on Dec 20 in [facility] 22TTE 12/22/15 in [facility]: RV dilatation, RVSP 46 23Per ECHO 05/24/17 Trace mitral regurgitation , trace TC regurgitation w no significant valve pathology 24meg colo July 2009 exc for 2 hyperplastic polyps 25Colonoscopy 2004 at [facility] [place] per letter of Dr Amor Dobbins Social History Social History Type Response Smoking Status Never (less than 100 in lifetime) entered on: 12/25/19 Sex
--- OUTSIDE RECORDS SUMMARY | 2023-10-23 09:47 | XMS_ITS | Continuity of Care Document ---
Author Organization [facility] Address [address] [place] [address]- Care Team Providers Care Corsets Salesperson Name Role Phone Massimo Figueroa Primary Care Physician [phone] [facility]counter [facility]s): 04/18/23 - 05/18/23 [facility] [place] [address]- [place] Allergies, Adverse Reactions, Alerts Substance Reaction [...] virus vaccine, inactivated 6 05/06/04 Gi zeny [id number]-0vPPS 12y+ bivalent booster vax 05/25/22 Given zoster vaccine, inactivated 12/08/21 Given zoster vaccine, inactivated 09/15/21 Given SARS-CoV-2 mRNA (rbntcsp-ntdo-bybpm) vax 09/15/21 Given SARS-CoV-2 (COVID-19) mRNA BNT-162b2 [...] Maintenance, 05/25/22 12:08:00 EST, ER Tablet, [id number], Discontinue Motrin, 158, cm, 05/25/22 11:12:00... Start [...] P.M. NEEDED & [facility], # [facility] tablet, 1 Refills, Maintenance, 08/05/22 12:49:00 EDT, [id number], 158, cm, 07/12/22 11:54:00 EDT, Height, 76, [...] Refills, Maintenance, 12/06/21 15:04:00 EDT, Tablet, [facility], Partial fill upon patient [...] Check up to 5 times daily. E11.65, 11/13/23 8:21:00 EST, Compound, 160, cm, 02/04/23 11:08:00 [...] Refills, Maintenance, 07/08/22 9:47:00 EDT, [id number], 158, cm, 06/16/22 11:27:00 EST, Height, 76, [...] tablet, 0 Refills, Maintenance, 04/18/23 1:50:00 EST, [facility]/pharmacy #[id number], 90, TAKE 1 TABLET BY [...] Replace Required Details, Route to Pharmacy Electronically, [facility]/pharmacy #[id number], 160, cm, 03/23/23 1... Start [...] # 15... Start Date: 11/24/22 Status: Ordered Sbq-szw-tzlhs medical-grade oxford diabetic shoes, depth or hightop Jsb-zru-vblrt medical-grade oxford diabetic shoes, depth or hightop, [...] DOLOR Start Date: 11/24/22 Status: Ordered Pen [place], 32 G x 4 mm BD Ultra [...] 4 Refills, Maintenance, 05/09/23 10:10:00 EST, Tablet, [facility]/pharmacy #[id number], Partial fill upon [...] Osteopenia 18, 19, 20 Confirmed 11/16/12 Active *[phone] Classer Karine More Confirmed Active Peripheral venous insufficiency [...] 1 11left mild sensorineural hearing loss by [facility] Hearing Evaluation on 12/29/11 12Narcotic [...] lower parathyroidectomy. 06/16/08 SURGEON: Danny Marie M.D. PREPAROLE COUNSELING AIDE: Naima Bowling M.D. 22b/l submassive PE diagnosed on Dec 20 in [facility] 23TTE 12/22/15 in [facility]: RV dilatation, RVSP 46 24Per ECHO 05/24/17 Trace mitral regurgitation , trace TC regurgitation w no significant valve pathology 25meg colo July 2009 exc for 2 hyperplastic polyps 26Colonoscopy 2004 at [facility] [place] per letter of Dr Amor Dobbins Social History Social History Type Response Smoking Status Never (less than 100 in lifetime) entered on: 10/22/20 Sex Patient Care team information Care Team Personnel Name: Massimo Figueroa Position: [facility] Outreach Member Role: PCP Address: Address: [address] [place] [address] Name: Diamond Weiss RN Position: [facility] RN Member Role: Primary Care Nurse Name: Tiara Cavazos RN Position: [facility] OB RN Member Role: Primary Care Nurse Name: Shreya Boss RN Position: [facility] RN Member Role: Primary Care Nurse Name: Dhruv Khan RN Position: [facility] RN Member Role: Primary Care Nurse Name: Virginia Benson RN Position: [facility] SN RN Member Role: Primary Care Nurse Name: Mary MOODY, Jaylin Position: [facility] Onco RN Member Role: Primary Care Nurse Name: Glen Cota MD Position: [facility] Renal MD Member Role: Lifetime Consulting Physician Address: Address: [address] [place] [address] [facility] [address] Name: Carole Toro LPN Position: [facility] RN Member Role: Primary Care Nurse Care Team Related Persons Name: JOSE ELIAS TODD Address: [place] [address] Name: JOSE ELIAS KIRKLAND Address: home [address] [place] [id number] Name: LEONIE SCHRADER Address: [place] [address]
--- OUTSIDE RECORDS SUMMARY | 2023-10-23 09:47 | XMS_ITS | Continuity of Care Document ---
Author Organization [facility] Address [address] [place] [address]- Care Team Providers Care Home Appliance Tech Name Role Phone Gayathri GARZA, Florinda Primary Care Physician [facility]s): 10/14/19 - 11/13/19 [facility] [address] [address]- [facility] Allergies, Adverse Reactions, Alerts Substance Reaction Severity [...] by ELLIOTT HEWITT. 4Admin Note: MELISSA CHIU, RN 5Admin Note: administered by melissa chiu [...] or fever, (not to exceed 2000 mg/day) sinhala, # 100 tablet, 11 Refills, Maintenance, 01/16/19 [...] 11 Refills, Maintenance, 09/25/19 11:21:00 EDT, Cream, [facility], 1 application Topically 3 times a [...] Refills, Maintenance, 03/27/19 9:10:00 EST, EC Capsule, [facility], 159, cm, 03/20/19 14:59:00 EST, Height, 88.3, kg, 12/13/18 10:17:00 EDT, Dry Weight Start Date: 03/27/19 Status: Ordered docusate sodium 100 mg oral tablet 2 tablet = 200 mg, By Mouth, 2 times a day, # 120 tablet, 11 Refills, Maintenance, 09/25/19 11:07:00 EDT, [facility], 159, cm, 05/20/19 12:19:00 EST, Height, 88.1, kg, 04/25/19 16:02:00 EST, Dry Weight Start Date: 09/25/19 Status: Ordered Eliquis 5 mg oral tablet 1 tablet = 5 mg, By Mouth, 2 times a day, # 60 tablet, 11 Refills, Maintenance, 07/22/19 8:58:00 EDT, Tablet, [facility], 159, cm, 05/20/19 12:19:00 EST, Height, 88.1, kg, 04/25/19 16:02:00 EST, Dry Weight Start Date: 07/22/19 Status: Ordered enalapril 10 mg oral tablet 10 mg, 1, tablet, By Mouth, Daily, 90 days, # 90 tablet, Refills 3, Tot. Refills 3, Maintenance, 09/19/18 15:15:30 EDT, Route to Pharmacy Electronically, [id number], [facility] Start Date: 09/19/18 Status: Ordered famotidine 40 mg oral tablet 1 tablet = 40 mg, By Mouth, Daily at bedtime, If 40 mg tablet is not available, can change to 20 mgtablet 2 tablet at bedtime, # 30 tablet, 2 Refills, Maintenance, 10/09/19 10:01:00 EDT, Tablet, [facility], 159, cm, 09/25/19 14:31... Start Date: 10/09/19 Status: Ordered flunisolide 25 mcg/inh nasal spray 2 puffs, Nasal, 2 times a day, Keep your head down while using dispense when patient request it, # 1 each, 11 Refills, Maintenance, 07/10/19 17:15:00 EDT, [facility]/pharmacy #[id number], discontinue nasacort, 2 puffs Nasal 2 [...] capsule, 11 Refills, Maintenance, 06/30/19 9:25:00 EDT, [facility]/pharmacy #[id number], 159, cm, 05/20/19 12:19:00 EST, Height, [...] 01/16/19 8:53:23 EDT, Route to Pharmacy Electronically, [id number], [facility] Start Date: [...] tablet, 1 Refills, Maintenance, 09/25/19 11:46:00 EDT, [facility], 159, cm, 05/20/19 12:19:00 EST, Height, 88.1, kg, 04/25/19 16:02:00 EST, Dry Weight Start Date: 09/25/19 Status: Ordered metFORMIN 500 mg oral tablet 1 tablet = 500 mg, By Mouth, 2 times a day, Take 1 tablet 2x a day. E11.65, # 60 tablet, 11 Refills, Maintenance, 09/23/19 9:54:00 EDT, Tablet, [facility], 159, cm, 05/20/19 12:19:00 EST, Height, 88.1, kg, 04/25/19 16:02:00 EST, Start Date: 09/23/19 Status: Ordered NovoLOG FlexPen 100 units/mL subcutaneous solution See Instructions, Max daily dose 100 units per day. E11.65, # 45 mL, 11 Refills, Maintenance, 09/23/19 9:56:00 EDT, [facility], DxE11.65, 159, cm, 05/20/19 12:19:00 EST, Height, 88.1, kg, 04/25/19 16:02:00 EST, Dry Weight Start Date: 09/23/19 Status: Ordered Jqm-vxa-djffh medical-grade oxford diabetic shoes, depth or hightop Psb-vzs-cvnwz medical-grade oxford diabetic shoes, depth or hightop, [...] 10/25/19 11:43:00 EDT, Route to Pharmacy Electronically, [facility], [place]... Start Date: 10/25/19 Stop Date: 11/22/19 Status: Ordered Pen [place], 32 G x 4 mm BD Ultra [...] L[facility] P[facility] DO NOT ER[facility]ICATIONS/MEDICAL SUPPLIES FROM [...] 09/25/19 11:08:00 EDT, Route to Pharmacy Electronically, [facility] Tablet, 159, cm, 05/20/19... Start Date: [...] Tot. Refills 5, Maintenance, 05/22/19 20:38:00 EST, [facility] Electron[facility], [facility] Start Date: [...] mL, 5 Refills, Maintenance, 09/23/19 9:57:00 EDT, [facility], 159, cm, 05/20/19 12:19:00 EST, Height, 88.1, kg, 04/25/19 16:02:00 EST, Dry Weight Start Date: 09/23/19 Status: Ordered Ventolin HFA 108 mcg/inh inhalation aerosol with adapter 2 puffs, Inhalation, 4 times a day, PRN Wheezing/Shortness of Breath, dispense when patient requestit, # 18 Gm, 5 Refills, Maintenance, 07/10/19 17:15:00 EDT, [facility]/pharmacy #[id number], 159, cm, 05/20/19 12:19:00 EST, Height, 88.1, kg, 04/25/19 16:02:00 EST... Start Date: 07/10/19 Status: Ordered Vitamin D3 1000 intl units oral tablet 1 tablet = 1,000 International_Units, By Mouth, Daily, # 90 tablet, 1 Refills, Maintenance, 10/09/19 10:01:00 EDT, [facility], 159, cm, 09/25/19 14:31:00 EDT, Height, 88.1, kg, 04/25/19 16:02:00 EST, Dry Weight Start Date: 10/09/19 Status: Ordered [place] Reusable Bed Pad 34 x 36 [place] Reusable Bed Pad 34 x 36 , [...] abnormal(Confirmed) 9 12/29/11 Active Hepatitis C(Confirmed) Active penitentiary current use of opi ate analgesic-LBP(Confirmed) 10 Active Hypercholesterolemia(Confirmed) Active Hypertension(Confirmed) Active Hysterectomy(Confirmed) Active Incontinence of urine(Confirmed) Active Iron deficiency anemia(Confirmed) Active Left ventricular hypertrophy(Confirmed) 11 Active Memory impairment(Confirmed) Active Mitral regurgitation(Confirmed) 12 05/24/17 Active Nephrolithiasis(Confirmed) 13, 14, 15 06/11/02 Active Obesity(Confirmed) Active JENNIFER (obstructive sleep apnea)(Confirmed) Active Osteopenia(Confirmed) 16, 17 11/16/12 Active *[id number]-Care Partn david Fountain(Confirmed) Active Peripheral venous insufficiency(Confirmed) [...] 20 [facility] 5insulin dependent 6Per ECHO 05/24/1718 Grade I, mild diastolic dysfunction with impaired LV relaxation, which may be normal for the patient's age. 7EGD on 06/24/16 by GI, Dr Damien caballero gastritis and esophageal varices grade 1 8EGD on 06/24/16 by GI, Dr Damien caballero gastritis and esophageal varices grade 1 9left mild sensorineural hearing loss by [facility] Hearing Evaluation on 12/29/11 10Narcotic contract [...] lower parathyroidectomy. 06/16/08 SURGEON: Danny Marie M.D. COMMISSARY AGENT: Naima Bowling M.D. 19b/l submassive PE diagnosed on Dec 20 in [facility] 20TTE 12/22/15 in [facility]: RV dilatation, RVSP 46 21Per ECHO 05/24/17 Trace mitral regurgitation , trace TC regurgitation w no significant valve pathology 22meg colo July 2009 exc for 2 hyperplastic polyps 23Colonoscopy 2004 at [facility] [place] per letter of Dr Amor Dobbins Social History Social History Type Response Smoking Status Never (less than 100 in lifetime) entered on: 04/17/19 Sex
--- OUTSIDE RECORDS SUMMARY | 2023-10-23 09:47 | XMS_ITS | Continuity of Care Document ---
Author Organization [facility] Address [address] [place] [address]- Care Team Providers Care Taxation Accountant Name Role Phone Florinda Trinh MD Primary Care Physician [place] [facility] [place] 10/08/20 [facility] [address] [place] [address]- Allergies, Adverse Reactions, Alerts Substance Reaction Severity [...] or fever, (not to exceed 2000 mg/day) south african, # 100 tablet, 11 Refills, Maintenance, 08/14/20 [...] 07/16/20 15:26:00 EDT, Route to Pharmacy Electronically, [facility]/pharmacy #[id number], 160, cm, 06/12/20 9:01... Start Date: 07/16/20 Status: Ordered ammonium lactate 12% topical cream 1 applicator, Topically, 2 times a day, # 280 Gm, 11 Refills, Maintenance, 01/27/20 19:13:00 EDT, [facility]/pharmacy #[id number], 1 applicator Topically [...] 3 Refills, Soft Stop, 06/26/20 7:30:00 EDT, [facility]/pharmacy #1026, Partial fill upon patient request if the prescription is for a schedule II op... Start Date: 06/26/20 Status: Ordered calcium (as citrate)-vitamin D 315 mg-250 intl units oral tablet 2 tablet, By Mouth, 2 times a day, for 30 days, calcium citrate, # 120 tablet, 11 Refills, Hard Stop 01/21/21 19:13:00 EDT, 01/27/20 19:13:00 EDT, Tablet, [facility]/pharmacy #1026, 167, cm, 01/13/20 8:54:00 EDT, Height, 78.8, kg, 01/01/20 3:41:00 EDT, Dry... Start Date: 01/27/20 Stop Date: 01/21/21 Status: Ordered capsaicin 0.025% topical cream 1 application, Topically, 3 times a day, # 90 Gm, 11 Refills, Maintenance, 02/10/20 11:22:00 EST, Cream, [facility]/pharmacy #1026, 1 application Topically [...] Refills, Maintenance, 01/27/20 19:13:00 EDT, EC Capsule, [facility]/pharmacy #1026, 167, cm, 01/13/20 8:54:00 EDT, Height, 78.8, kg, 01/01/20 3:41:00 EDT, Dry Weight Start Date: 01/27/20 Status: Ordered Eliquis 5 mg oral tablet 1 tablet = 5 mg, By Mouth, 2 times a day, # 60 tablet, 11 Refills, Maintenance, 02/10/20 11:22:00 EST, Tablet, [facility]/pharmacy #1026, 167, cm, 01/13/20 8:54:00 EDT, Height, 78.8, kg, 01/01/20 3:41:00 EDT, Dry Weight Start Date: 02/10/20 Status: Ordered famotidine 40 mg oral tablet 1 tablet = 40 mg, By Mouth, Daily at bedtime, If 40 mg tablet is not available, can be changed to 20 mg tablet 2 tablet at bedtime, # 90 tablet, 3 Refills, Maintenance, 06/30/20 14:55:00 EDT, Tablet,[facility]/pharmacy #1026, Discontinue 30- day supply presc... Start Date: 06/30/20 Stop Date: 06/25/21 Status: Ordered ferrous sulfate 325 mg oral tablet 1 tablet = 325 mg, By Mouth, Daily, May take with food to minimize abdominal discomfort. Do not take with milk. Take preferrably with juice., # 90 tablet, 1 Refills, Maintenance, 08/31/20 14:45:00 EDT, [facility]/pharmacy #1026, 160, cm, 08/14/20 9:34:00 EDT... [...] capsule, 0 Refills, Maintenance, 08/28/20 17:52:00 EDT, [facility]/pharmacy #1026, 160, cm, 08/14/20 9:34:00 EDT, Height, 80.6, kg, 06/03/20 19:00:00 EST, Dry Weight Start Date: 08/28/20 Stop Date: 11/26/20 Status: Ordered ketotifen 0.025% ophthalmic solution 1 drops, Eyes, Both, Every 12 hours, PRN as needed for eye allergy, # 7.5 mL, 11 Refills, Maintenance, 01/27/20 19:13:00 EDT, [facility]/pharmacy #1026, 1 drops Eyes, [...] 06/24/20 9:08:00 EDT, Route to Pharmacy Electronically, [facility]/pharmacy #1026, 160, cm, 06/12/20 9:01:00 EST, Height, 80... Start Date: 06/24/20 Status: Ordered NovoLOG FlexPen 100 units/mL subcutaneous solution See Instructions, Inject up to 26 untis via Insulin sliding scale 3x a day w/meals,MAX daily dose 78 units, E11.65, # 45 mL, 6 Refills, Maintenance, 01/21/20 14:30:00 EDT, [facility]/pharmacy #1026, 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 Start Date: 01/21/20 Status: Ordered Ubw-pcb-irija medical-grade oxford diabetic shoes, depth or hightop Jqf-bjl-jctcf medical-grade oxford diabetic shoes, depth or hightop, [...] 10/30/20 10:25:00 EDT, Route to Pharmacy Electronically, [facility]/pharmacy #1026, Part... Start Date: 10/30/20 Stop Date: 11/27/20 Status: Ordered oxyCODONE 5 mg oral tablet 5 mg, 1, tablet, By Mouth, Every 4 hours, for 28 days, PRN pain dispense not earlier than 11/27/20, # 168 tablet, Refills 0, Tot. Refills 0, Acute 12/25/20 10:25:00 EDT, 11/27/20 10:25:00 EDT, Route to Pharmacy Electronically, [facility]/pharmacy #1026, Part... Start Date: 11/27/20 Stop Date: 12/25/20 Status: Ordered oxyCODONE 5 mg oral tablet 5 mg, 1, tablet, By Mouth, Every 4 hours, for 28 days, PRN pain dispense not earlier than 10/02/20, # 168 tablet, Refills 0, Tot. Refills 0, Acute 10/30/20 10:25:00 EDT, 10/02/20 10:25:00 EDT, Route to Pharmacy Electronically, [facility]/pharmacy #1026, Part... Start Date: 10/02/20 Stop Date: 10/30/20 Status: Ordered oxyCODONE 5 mg oral tablet 5 mg, 1, tablet, By Mouth, Every 4 hours, for 28 days, PRN pain dispense not earlier than 10/02/20, # 168 tablet, Refills 0, Tot. Refills 0, Acute 11/27/20 10:25:00 EDT, 10/30/20 10:25:00 EDT, Route to Pharmacy Electronically, [facility]/pharmacy #1026, Part... Start Date: 10/30/20 Stop Date: 11/27/20 Status: Ordered Pen [place], 32 G x 4 mm BD Ultra [...] 527 Gm,11 Refills, Maintenance, 01/27/20 19:13:00 EDT, [facility]/pharmacy #1026, 17- 34 Gm By Mouth [...] 02/10/20 11:22:00 EST, Route to Pharmacy Electronically, [facility]/pharmacy #1026 Tablet, 167, cm, 01/13/20 8:5... [...] 05/01/20 9:28:00 EST, Route to Pharmacy Electronically, [facility]/pharmacy #1026, 167,... Start Date: 05/01/20 Status: [...] 09/24/20 11:34:00 EDT, Route to Pharmacy Electronically, [facility]/pharmacy #1026,Partial fill upon patient request if the prescrip... Start Date: 09/24/20 Stop Date: 10/08/20 Status: Ordered Trelegy Ellipta inhalation powder 1 puffs, Inhalation, Daily, at the same time every day given by carpenter's assistant , Dr Berkowitz, # 60 each, [...] Date: 09/22/20 Stop Date: 12/15/20 Status: Ordered [place] Reusable Bed Pad 34 x 36 [place] Reusable Bed Pad 34 x 36 , [...] abnormal(Confirmed) 11 12/29/11 Active Hepatitis C(Confirmed) Active FPC current use of opi ate analgesic-LBP(Confirmed) 12 [...] apnea)(Confirmed) Active Osteopenia(Confirmed) 18, 19 11/16/12 Active *[id number] Cheri More(Confirmed) Active Peripheral venous insufficiency(Confirmed) 10/31/11 [...] peroneal veins diagnosed on Dec 20 [facility] 6insulin dependent 7Per ECHO 05/24/1718 Grade [...] 1 11left mild sensorineural hearing loss by [facility] Hearing Evaluation on 12/29/11 12Narcotic contract [...] lower parathyroidectomy. 06/16/08 SURGEON: Danny Marie M.D. PARTS COUNTERPERSON: Naima Bowling M.D. 21b/l submassive PE diagnosed on Dec 20 in [facility] 22TTE 12/22/15 in [facility]: RV dilatation, RVSP 46 23Per ECHO 05/24/17 Trace mitral regurgitation , trace TC regurgitation w no significant valve pathology 24meg colo July 2009 exc for 2 hyperplastic polyps 25Colonoscopy 2004 at [facility] [place] per letter of Dr Amor Dobbins Social History Social History Type Response Smoking Status Never (less than 100 in lifetime) entered on: 09/10/20 Sex
--- OUTSIDE RECORDS SUMMARY | 2023-10-23 09:47 | XMS_ITS | Continuity of Care Document ---
Author Organization [facility] Address [address] [place] [id number]- Care Team Providers Care Forge Utility Worker Name Role Phone Florinda Trinh MD Primary Care Physician Encounter [facility] [place] Date(s): 07/12/22 - 09/09/[address] [address]- Attending Physician: Samira Falcon MD Admitting Physician: Samira Falcon MD Referring Physician: Florinda Trinh MD Allergies, Adverse Reactions, Alerts Substance Reaction Severity Status enalapril Active penicillin RASH Active morphine itchy Active Bactrim 1 hyperkalemia Active Lidocaine, Topical Active 1Hyperkalemia when used together with lisinopril Immunizations Given and Recorded Vaccine Date Status Refusal Reason [id number] 12y+ bivalent booster vax 05/25/22 Given influenza [...] zoster vaccine, inactivated 09/15/21 Given SARS-CoV-2 mRNA ([id number]) vax 09/15/21 Given SARS-CoV-2 (COVID-19) mRNA BNT-162b2 [...] Maintenance, 05/25/22 12:08:00 EST, ER Tablet, [facility], Discontinue Motrin, 158, cm, 05/25/22 11:12:00... Start [...] 11 Refills, Maintenance, 07/21/21 12:43:00 EDT, [facility]/pharmacy #1026, 1 applicator Topically 2 times a [...] Biotene Moisturizing Mouth oral spray See Instructions, [place] directly into mouth; spray is safe to [...] P.M. NEEDED & 1 TAB AT [facility], # 180 tablet, 1 Refills, Maintenance, 08/05/22 12:49:00 EDT, [facility], 158, cm, 07/12/22 11:54:00 EDT, Height, 76, kg, 05/07/22 6:04:00 ES... Start Date: 08/05/22 Status: Ordered capsaicin 0.025% topical cream 1 application, Topically, 3 times a day, # 35 Gm, 11 Refills, Maintenance, 07/21/21 12:26:00 EDT, Cream, [facility]/pharmacy #1026, 1 application Topically [...] 11 Refills, Maintenance, 12/06/21 15:04:00 EDT, Tablet, [facility], Partial fill upon patient request if the prescription is for a schedule II opioid drug., 160, cm, 11/23/21 14:47:00 ED... Start Date: 12/06/21 Status: Ordered esomeprazole 40 mg oral enteric coated capsule See Instructions, TAKE 1 CAPSULE BY MOUTH DAILY 30 MINUTES BEFORE BREAKFAST, # 30 capsule, 2 Refills, Maintenance, 08/05/22 12:49:00 EDT, [facility], 158, cm, 07/12/22 11:54:00 EDT, Height, 76, kg, 05/07/22 6:04:00 EST, Dry Weight Start Date: 08/05/22 Status: Ordered famotidine 40 mg oral tablet 1 tablet = 40 mg, By Mouth, Daily at bedtime, If 40 mg tablet is not available, can be changed to 20 mg tablet 2 tablet at bedtime, # 90 tablet, 3 Refills, Maintenance, 07/12/21 18:53:00 EDT, Tablet,[facility]/pharm[facility] #1026, Discontinue 30- day supply presc... Start Date: 07/12/21 Stop Date: 07/07/22 Status: Ordered ferrous sulfate 325 mg oral tablet 1 tablet = 325 mg, By Mouth, Daily, May take with food to minimize abdominal discomfort. Do not take with milk. Take preferrably with juice., # 90 tablet, 3 Refills, Maintenance, 09/15/21 8:56:00 EDT, [facility]/pharmacy #1026, 160, cm, 09/15/21 8:15:00 EDT,... Start [...] tablet, 0 Refills, Maintenance, 07/08/22 9:47:00 EDT, [facility], 158, cm, 06/16/22 11:27:00 EST, Height, 76, kg, 05/07/22 6:04:00 EST, Dry Weight Start Date: 07/08/22 Status: Ordered ketotifen 0.025% ophthalmic solution 1 drops, Eyes, Both, Every 12 hours, PRN as needed for eye allergy, # 7.5 mL, 11 Refills, Maintenance, 06/25/21 8:34:00 EDT, [facility]/pharmacy #1026, 1 drops Eyes, Both Every 12 [...] 90 tablet, 3 Refills, 03/09/22 11:57:00 EST, [facility]/pharmacy #0838, 1 tablet By Mouth Daily before dinner,PRN:allergies, 160, cm, 03/09/22 10:43:00 EST, Height, 78, kg, 01/14/22 19:37:00 ED... Start Date: 03/09/22 Status: Ordered montelukast 10 mg oral tablet 10 mg, 1, tablet, By Mouth, Daily at bedtime, # 90 tablet, Refills 3, Tot. Refills 3, Maintenance, 03/09/22 11:37:00 EST, Route to Pharmacy Electronically, [facility]/pharmacy #0838, 160, cm, 03/09/22 10:43:00 EST, Height, 78, kg, 01/14/22 19:37:00 EDT, Dry... Start Date: 03/09/22 Stop Date: 03/04/23 Status: Ordered Norvasc 5 mg oral tablet 5 mg, 1, tablet, By Mouth, Daily, # 90 tablet, Refills 3, Tot. Refills 3, Maintenance, 03/09/22 11:54:00 EST, Route to Pharmacy Electronically, [facility]/pharmacy #0838, 160, cm, 03/09/22 10:43:00 EST, Height, [...] mL, 3 Refills, Maintenance, 03/09/22 17:15:00 EST, [facility]/pharmacy #0838, 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 Start Date: 03/09/22 Status: Ordered Hbk-nmo-cxbth medical-grade oxford diabetic shoes, depth or hightop Bub-sci-hrsvk medical-grade oxford diabetic shoes, depth or hightop, [...] tablet, 2 Refills, Maintenance, 03/09/2211:40:00 EST, Tablet, [facility]/pharmacy #0838, 160, cm, 03/09/22 10:43:00 EST, Height, [...] 08/19/22 Stop Date: 09/16/22 Status: Ordered Pen [place], 32 G x 4 mm BD Ultra [...] Gm,11 Refills, Maintenance, 03/09/22 11:39:00 EST, [facility]/pharmacy #0838, 17- 34 Gm By Mouth Daily,PRN:asneeded [...] the same time every day Given by Nailhead Setter, Dr. 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 06/16/08 SURGEON: Danny Marie M.D. COMMERCIAL FRONT LOAD OPERATOR: Naima Bowling M.D. 22b/l submassive PE diagnosed on Dec 20 in [facility] 23TTE 12/22/15 in [facility]: RV dilatation, RVSP 46 24Per ECHO 05/24/17 Trace mitral regurgitation , trace TC regurgitation w no significant valve pathology 25meg colo July 2009 exc for 2 hyperplastic polyps 26Colonoscopy 2005 at [facility] [place] per letter of Dr Amor Dobbins Social History Social History Type Response Smoking Status Never (less than 100 in lifetime) entered on: 10/22/20 Sex Patient Care team information Care Team Personnel Name: Diamond Weiss RN Position: [facility] RN Member Role: Primary Care Nurse Name: Tiara Cavazos RN Position: [facility] OB RN Member Role: Primary Care Nurse Name: Shreya Boss RN Position: [facility] RN Member Role: Primary Care Nurse Name: Jaylin Hernandez RN Position: [facility] Onco RN Member Role: Primary Care Nurse Name: Glen Cota MD Position: [facility] Renal MD Member Role: Lifetime Consulting Physician Address: Address: [address] [place] [address] [facility] [address] Name: Florinda Trinh MD Position: [facility] Physician - Primary Care Member Role: PCP Address: Address: [address] [place] [address] Care Team Related Persons Name: JOSE ELIAS TODD Address: [place] [address] Name: JOSE ELIAS KIRKLAND Address: home [address] [place] [id number] Name: LEONIE SCHRADER Address: [place] [address]
--- OUTSIDE RECORDS SUMMARY | 2023-10-23 09:47 | XMS_ITS | Continuity of Care Document ---
Author Organization [facility] Address [address] [place] [address]- Care Team Providers Care Plywood Scarfer Tender Name Role Phone Florinda Trinh MD Primary Care Physician Encounter [facility] [place] Date(s): 10/22/20 - 11/21/20 [facility] [address] [place] [address]- Attending Physician: Admtr, Ar8 Allergies, Adverse Reactions, [...] exceed 2000 mg/day) kazakh, # 100 tablet, 11 Refills, Maintenance, 08/14/20 [...] 78.8, kg,... Start Date: 01/21/20 Status: Ordered Gnd-kfe-qsezd medical-grade oxford diabetic shoes, depth or hightop Alv-tpi-wolxn medical-grade oxford diabetic shoes, depth or hightop, [...] 10/30/20 10:25:00 EDT, Route to Pharmacy Electronically, [facility]/pharmacy #1026, Part... Start Date: 10/30/20 Stop Date: 11/27/20 Status: Ordered oxyCODONE 5 mg oral tablet 5 mg, 1, tablet, By Mouth, Every 4 hours, for 28 days, PRN pain dispense not earlier than 11/27/20, # 168 tablet, Refills 0, Tot. Refills 0, Acute 12/25/20 10:25:00 EDT, 11/27/20 10:25:00 EDT, Route to Pharmacy Electronically, [facility]/pharmacy #1026, Part... Start Date: 11/27/20 Stop Date: 12/25/20 Status: Ordered oxyCODONE 5 mg oral tablet 5 mg, 1, tablet, By Mouth, Every 4 hours, for 28 days, PRN pain dispense not earlier than 12/25/20, # 168 tablet, Refills 0, Tot. Refills 0, Acute 01/22/21 10:25:00 EDT, 12/25/20 10:25:00 EDT, Route to Pharmacy Electronically, [facility]/pharmacy #1026, Part... Start Date: 12/25/20 Stop Date: 01/22/21 Status: Ordered oxyCODONE 5 mg oral tablet 5 mg, 1, tablet, By Mouth, Every 4 hours, for 28 days, PRN pain dispense not earlier than 10/02/20, # 168 tablet, Refills 0, Tot. Refills 0, Acute 11/27/20 10:25:00 EDT, 10/30/20 10:25:00 EDT, Route to Pharmacy Electronically, [facility]/pharmacy #1026, Part... Start Date: 10/30/20 Stop Date: 11/27/20 Status: Ordered Pen [place], 32 G x 4 mm BD Ultra [...] 30 tablet, 5 Refills, Maintenance, [facility], 160, cm, 10/22/20 9:15:00 EDT, Height, 80.6, kg, 06/03/20 19:00:00 EST, Dry Weight Start Date: 11/13/20 Status: Ordered Senna 8.6 mg oral tablet 17.2 mg, 2, tablet, By Mouth, 2 times a day, PRN, discontinue docusate, # 60 tablet, Refills 11, Tot. Refills 11, Maintenance, for constipation, 02/10/20 11:22:00 EST, Route to Pharmacy Electronically, [facility]/pharmacy #1026 Tablet, 167, cm, 01/13/20 [...] 10/15/20 16:28:00 EDT, Routeto Pharmacy Electronically, [facility]/pharmacy #1026, 160... Start Date: 10/15/20 Status: Ordered TENS electrode pads TENS electrode pads, See Instructions, # 1 box, Refills 5, Tot. Refills 5, Maintenance, use as directed for back pain Dx LBP M54.9 1 box of 4, 12/06/16 14:59:01, Compound Start Date: 12/06/16 Status: Ordered Trelegy Ellipta inhalation powder 1 puffs, Inhalation, Daily, at the same time every day given by nut feeder , Dr Berkowitz, # 60 each, 0 Refills, Maintenance, 11/20/19 13:03:00 EDT, Powder Start Date: 11/20/19 Status: Ordered Tresiba FlexTouch 200 units/mL subcutaneous solution See Instructions, Inject 55 units daily at 9pm, E11.65. titrate accordingly, # 45 mL, 6 Refills, Maintenance, 01/21/20 14:30:00 EDT, [facility], 167, cm, 10/05/20 8:54:00 EDT, Height, 78.8, kg, 01/01/20 3:41:00 EDT, Dry Weight Start Date: 01/21/20 Status: Ordered Ventolin HFA 108 mcg/inh inhalation aerosol with adapter 2 puffs, Inhalation, 4 times a day, PRN Wheezing/Shortness of Breath, dispense when patient requestit, # 18 Gm, 5 Refills, Maintenance, 11/09/20 12:36:00 EDT, [facility]/pharmacy #1026, [...] Date: 09/22/20 Stop Date: 12/15/20 Status: Ordered [place] Reusable Bed Pad 34 x 36 [place] Reusable Bed Pad 34 x 36 , [...] Refills, Maintenance, 10/22/20 10:19:00 EDT, Tablet, 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 06/16/08 SURGEON: Danny Marie M.D. REGISTRATION MANAGER: Naima Bowling M.D. 21b/l submassive PE diagnosed on Dec 20 in [facility] 22TTE 12/22/15 in [facility]: RV dilatation, RVSP 46 23Per ECHO 05/24/17 Trace mitral regurgitation , trace TC regurgitation w no significant valve pathology 24meg colo July 2009 exc for 2 hyperplastic polyps 25Colonoscopy 2004 at [facility] [place] per letter of Dr Amor Dobbins Social History Social History Type Response Smoking Status Never (less than 100 in lifetime) entered on: 10/22/20 Sex
--- OUTSIDE RECORDS SUMMARY | 2023-10-23 09:47 | XMS_ITS | Continuity of Care Document ---
Author Organization [facility] Address [address] [place] [address]- Care Team Providers Care Ordnance Technician Name Role Phone Gayathri GARZA, Florinda Primary Care Physician Encounter [facility] [place] Date(s): 04/19/20 - 04/26/20 [facility] [address] [place] [address]- Encounter Diagnosis Dysuria(Discharge Diagnosis) - 04/19/20 Attending Physician: Kameron Ching MD Referring Physician: Florinda Trinh MD Allergies, [...] or fever, (not to exceed 2000 mg/day) persian, # 100 tablet, 5 Refills, Maintenance, 01/22/20 [...] a day, calcium citrate, # 120 tablet, 2 Refills, Maintenance, 01/21/21 19:13:00 EDT, Tablet, [facility]/pharmacy #1026, 2 tablet By Mouth 2 times a day,x30 days,Instr:calcium citrate, 167, cm, 02/24/20 17:04:00 EST, Height, 78.8... Start Date: 01/21/21 Stop Date: 04/21/21 Status: Ordered calcium (as citrate)-vitamin D 315 [...] 78.8, kg,... Start Date: 01/21/20 Status: Ordered Xzi-djk-yuvbw medical-grade oxford diabetic shoes, depth or hightop Umo-jkh-sstml medical-grade oxford diabetic shoes, depth or hightop, [...] EST, 04/17/20 10:25:00 EST, Route toPharmacy Electronically, [facility]/pharmacy #1026, Parti... Start Date: 04/17/20 Stop Date: 05/15/20 Status: Ordered oxyCODONE 5 mg oral tablet 5 mg, 1, tablet, By Mouth, Every 4 hours, for 28 days, PRN pain dispense not earlier than 04/15/20 3 of 3, # 168 tablet, Refills 0, Tot. Refills 0, Acute 05/13/20 10:25:00 EST, 04/15/20 10:25:00 EST, Route to Pharmacy Electronically, [facility]/pharmacy #10... Start Date: 04/15/20 Stop Date: 05/13/20 Status: Ordered Pen [place], 32 G x 4 mm BD [...] 9:43:00 EDT, Route to Pharmacy Electronically, [facility]/pharmacy #1026, 167,... Start Date: 01/22/20 Status: Ordered TENS electrode pads TENS electrode pads, See Instructions, # 1 box, Refills 5, Tot. Refills 5, Maintenance, use as directed for back pain Dx LBP M54.9 1 box of 4, 12/06/16 14:59:01, Compound Start Date: 12/06/16 Status: Ordered Trelegy Ellipta inhalation powder 1 puffs, Inhalation, Daily, at the same time every day given by cardroom attendant , Dr Berkowitz, # 60 each, [...] Dry Weight Start Date: 04/15/20 Status: Ordered Premier Reusable Bed Pad 34 x 36 Premier Reusable Bed Pad 34 x 36 , [...] apnea)(Confirmed) Active Osteopenia(Confirmed) 18, 19 11/16/12 Active *[phone] Care Partn igor More(Confirmed) Active Peripheral venous [...] 1 11left mild sensorineural hearing loss by [facility] Hearing Evaluation on 12/29/11 12Narcotic contract w [...] lower parathyroidectomy. 06/16/08 SURGEON: Danny Marie M.D. BRANCH ACCOUNT MANAGER: Naima Bowling M.D. 21b/l submassive PE diagnosed on Dec 20 in [facility] TTE 12/22/15 in [facility]: RV dilatation, RVSP 46 23Per ECHO 05/24/17 Trace mitral regurgitation , trace TC regurgitation w no significant valve pathology 24meg colo July 2009 exc for 2 hyperplastic polyps 25Colonoscopy 2004 at [facility] [place] per letter of Dr Amor Dobbins Diagnosis Diagnosis Type Effective Dates Health Status Clini jenna Service Informant Dysuria Discharge Diagnosis 04/19/20 Vital Signs Most recent to oldest [Reference Range]: 1 Height 167 cm (04/19/20 9:55 AM) Weight 82.0 kg (04/19/20 9:55 AM) Oxygen Saturation [94-100 %] 99 % (04/19/20 9:55 AM) Pulse Rate [55-90 bpm] 87 bpm (04/19/20 9:55 AM) Body Mass Index [18.5-24.99] 29.4 *H* (04/19/20 9:55 AM) Blood Pressure [90-138/55-84 mm Hg] 154/ 94mm Hg *H* (04/19/20 9:55 AM) Respiratory Rate [16-30 br/min] 16 br/mi n (04/19/20 9:55 AM) Temperature [96.8-100.4 DegF] 96.9 DegF (04/19/20 9:55 AM) Mode of Delivery (Oxygen) Room air (04/19/20 9:55 AM) Blood pressure sites Arm, right (04/19/20 9:55 AM) Temperature Route Temporal (04/19/20 9:55 AM) Dry Weight 82.0 kg (04/19/20 9:55 AM) Weight Obtained Via Standing scale (04/19/20 9:55 AM) Dry Weight Obtained Via Standing scale (04/19/20 9:55 AM) Social History Social History Type Response Smoking Status Never (less than 100 in lifetime) entered on: 12/25/19 Sex
--- OUTSIDE RECORDS SUMMARY | 2023-10-23 09:48 | XMS_ITS | Continuity of Care Document ---
Author Organization [facility] Address [address] [place] [address]- Care Team Providers Care Manager Reliability Name Role Phone Gayathri GARZA, Florinda Primary Care Physician Encounter [facility] Date(s): 04/29/22 - 05/29/22 [facility]/[address] [address]- [place] Allergies, Adverse Reactions, Alerts Substance Reaction Severity Status penicillin RASH Active morphine itchy Active Bactrim 1 hyperkalemia Active Lidocaine, Topical Active 1Hyperkalemia when used together with lisinopril Immunizations Given and Recorded Vaccine Date Status Refusal Reason [id number] 12y+ bivalent booster vax 05/25/22 Given influenza [...] zoster vaccine, inactivated 09/15/21 Given SARS-CoV-2 mRNA (xqvvmjo-wsrk-cogvp) vax 09/15/21 Given SARS-CoV-2 (COVID-19) mRNA BNT-162b2 [...] Biotene Moisturizing Mouth oral spray See Instructions, [place] directly into mouth; spray is safe to [...] needed for anxiety and 1tab at HS emkomu-ryy-fhnso, # 60 tablet, 11 Refills, Maintenance, 09/15/21 [...] Refills, Maintenance, 12/06/21 15:04:00 EDT, Tablet, [facility], Partial fill upon patient request [...] 04/19/22 10:15:00 EST, Route to Pharmacy Electronically, [facility]/pharmacy #[id number], Partial fill upon patient [...] 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 Start Date: 03/09/22 Status: Ordered Dky-rgw-mfakt medical-grade oxford diabetic shoes, depth or hightop Upz-tfw-xqadw medical-grade oxford diabetic shoes, depth or hightop, [...] 05/27/22 Stop Date: 06/24/22 Status: Ordered Pen [place], 32 G x 4 mm BD Ultra [...] tablet, 11 Refills, Maintenance, 03/09/22 11:39:00 EST, [facility]/pharmacy #0838, 160, cm, 03/09/22 10:43:00 [...] the same time every day Given by [employer] Salesperson, Dr. Michael Berkowitz, # 60 each, 0 [...] Gm, 5 Refills, Maintenance, 11/09/20 12:36:00 EDT, [facility]/pharmacy #[id number], 160, cm, 10/22/20 9:15:00 EDT, Height, 80.6, kg, 06/03/20 19:00:00 EST,... Start Date: 11/09/20 Status: Ordered Voltaren 1% topical gel = 2 Gm, Topically, 4 times a day, # 100 Gm, 5 Refills, Maintenance, 03/09/22 11:55:00 EST, [facility]/pharmacy #0838, 2 Gm Topically 4 times a day,x14 days, 160, cm, 03/09/22 10:43:00 EST, Height, 78, kg, 01/14/22 19:37:00 EDT, Dry Weight Start Date: 03/09/22 Stop Date: 06/01/22 Status: Ordered Hitchcock Reusable Bed Pad 34 x 36 Hitchcock Reusable Bed Pad 34 x 36 , [...] Confirmed 12/29/11 Active Hepatitis C Confirmed Active assisted current use of opiate analgesic-LBP 12 Confirmed [...] Osteopenia 18, 19, 20 Confirmed 11/16/12 Active *[id number] Rod Pointer Karine More Confirmed Active Peripheral venous insufficiency [...] [facility]11 12Narcotic contract [...] parathyroidectomy. 06/16/08 SURGEON: Danny Marie M.D. PRODUCTION EDITOR: Naima Bowling M.D. 22b/l submassive PE diagnosed on Dec 20 in [facility] 23TTE 12/22/15 in [facility]: RV dilatation, RVSP 46 24Per ECHO 05/24/17 Trace mitral regurgitation , trace TC regurgitation w no significant valve pathology 25meg colo July 2009 exc for 2 hyperplastic polyps 26Colonoscopy 2004 at [facility] [place] per letter of Dr Amor Dobbins Social [...] Virginia Benson RN Position: [facility] RN Member Role: Primary Care Nurse Name: Jaylin Hernandez RN Position: [facility] Onco RN Member Role: Primary Care Nurse Name: Glen Cota MD Position: [facility] Renal MD Member Role: Lifetime Consulting Physician Address: Address: [address] [place] [address] [facility] [address] Name: Florinda Trinh MD Position: [facility] Primary Care Physician Member Role: PCP Address: Address: [address] [place] [address] Care Team Related Persons Name: JOSE ELIAS TODD Address: [place] [address] Name: JOSE ELIAS KIRKLAND Address: home [address] [place] [id number] Name: LEONIE SCHRADER Address: [place] [address]
--- OUTSIDE RECORDS SUMMARY | 2023-10-23 09:48 | XMS_ITS | Continuity of Care Document ---
Author Organization [facility] Address [address] [place] [address]- Care Team Providers Care Button Cutting Machine Operator Name Role Phone Florinda Trinh MD Primary Care Physician Encounter [facility] [place] Date(s): 09/29/21 - 12/22/[address] [address]- Discharge Disposition: A-D/C Home Attending Physician: Florinda [...] zoster vaccine, inactivated 09/15/21 Given SARS-CoV-2 mRNA (znomdtv-pgqi-saleu) vax 09/15/21 Given SARS-CoV-2 (COVID-19) mRNA BNT-162b2 [...] 01/19/22 13:10:00 EDT, 12/22/21 13:10:00 EDT, Tablet, [facility]... Start Date: 12/22/21 Stop Date: 01/19/22 Status: Ordered acetaminophen-hydrocodone 300 mg-7.5 mg oral tablet 2 tablet, By Mouth, Every 8 hours, for 28 days, for pain fill date Jan 19, 2022 Dx Chronic LBP, renal colic, # 168 tablet, 0 Refills, Acute 02/16/22 13:10:00 EST, 01/19/22 13:10:00 EDT, Tablet, [facility], Partial fi... Start Date: 01/19/22 Stop Date: 02/16/22 Status: Ordered acetaminophen-hydrocodone 300 mg-7.5 mg oral tablet 2 tablet, By Mouth, Every 8 hours, for 28 days, for pain fill date Feb 16, 2022 Dx Chronic LBP, renal colic, # 168 tablet, 0 Refills, Acute 03/16/22 13:10:00 EST, 02/16/22 13:10:00 EST, Tablet, [facility], Partial greyson... Start Date: 02/16/22 Stop [...] Gm, 11 Refills, Maintenance, 07/21/21 12:43:00 EDT, [facility]/pharmacy #1026, 1 applicator Topically 2 times a day, 160, cm, 07/21/21 10:22:00 EDT, Height, 80.6, kg, 06/03/20 19:00:00 EST, Dry Weight Start Date: 07/21/21 Status: Ordered Baqsimi Two Pack 3 mg nasal powder = 3 mg, Naris, Right, Once, Please use for a low blood sugar emergency, may repeat in 15 minutes, #2 each, 3 Refills, Soft Stop, 06/26/20 7:30:00 EDT, [facility]/pharmacy #1026, Partial fill upon patient request if the prescription is for a schedule II op... Start Date: 06/26/20 Status: Ordered Biotene Moisturizing Mouth oral spray See Instructions, [place] directly into mouth; spray is safe to swallow as needed for dry mouth, # 45mL, 11 Refills, Maintenance, 07/21/21 12:43:00 EDT, [facility]/pharmacy #1026, [place] directly into mouth; spray is safe to [...] needed for anxiety and 1tab at HS zdlxhn-bft-gztzh, # 60 tablet, 11 Refills, Maintenance, 09/15/21 [...] 11 Refills, Maintenance, 04/21/21 18:12:00 EST, Tablet, [facility]/pharmacy #1026, 160, cm, 03/03/21 11:23:00 EST, Height, 80.6, kg, 06/03/20 19:00:00 EST, Dry Weight Start Date: 04/21/21 Status: Ordered escitalopram 20 mg oral tablet 1 tablet = 20 mg, By Mouth, Daily, # 30 tablet, 11 Refills, Maintenance, 12/06/21 15:04:00 EDT, Tablet, [facility], Partial fill upon patient [...] tablet, 3 Refills, Maintenance, 07/12/21 18:53:00 EDT, Tablet,[facility]/pharmacy #1026, Discontinue 30- day supply presc... Start Date: 07/12/21 Stop Date: 07/07/22 Status: Ordered ferrous sulfate 325 mg oral tablet 1 tablet = 325 mg, By Mouth, Daily, May take with food to minimize abdominal discomfort. Do not take with milk. Take preferrably with juice., # 90 tablet, 3 Refills, Maintenance, 09/15/21 8:56:00 EDT, [facility]/pharmacy #1026, 160, cm, 09/15/21 8:15:00 EDT,... [...] 04/28/21 14:34:00 EST, Route to Pharmacy Electronically, [facility]/pharmacy #1026, Can use with HCTZ, 160, [...] capsule, 3 Refills, Maintenance, 11/19/21 14:28:00 EDT, [facility]/pharmacy #1026, 160, cm, 11/05/21 9:50:00 EDT, Height, 80.5, kg, 11/05/21 9:50:00 EDT, Dry Weight Start Date: 11/19/21 Stop Date: 11/14/22 Status: Ordered ketotifen 0.025% ophthalmic solution 1 drops, Eyes, Both, Every 12 hours, PRN as needed for eye allergy, # 7.5 mL, 11 Refills, Maintenance, 06/25/21 8:34:00 EDT, [facility]/pharmacy #1026, 1 drops Eyes, Both Every [...] LOS HDZ, # 90 tablet, 1 Refills, [facility] 847[facility], 90, TOME GAGE TABLETA POR VIA ORAL TODOS LOS HDZ, 160, cm, 09/21/21 8:54:00 EDT, Height, 80.6,kg, 06/03/20 19:00:00 EST, Dry Weight Start Date: 10/13/21 Status: Ordered Nexium 40 mg oral enteric coated capsule 1 capsule = 40 mg, By Mouth, Daily, 30 minutes before breakfast, # 30 capsule, 11 Refills, Maintenance, 04/28/21 14:00:00 EST, [facility]/pharmacy #1026, Discontinue pantoprazole, 160, cm, 04/28/21 [...] 0 Refills, Maintenance, 09/21/21 9:23:00 EDT, Tablet, [facility], P... Start Date: 09/21/21 Status: Ordered Norvasc 5 mg oral tablet 5 mg, 1, tablet, By Mouth, Daily, # 30 tablet, Refills 0, Tot. Refills 0, Maintenance, 09/21/21 9:23:00 EDT, Route to Pharmacy Electronically, [facility], Partial fill upon patient request if the prescription is for a schedule II o... Start Date: 09/21/21 Status: Ordered NovoLOG FlexPen 100 units/mL subcutaneous solution See Instructions, Inject up to 26 untis via Insulin sliding scale 3x a day w/meals,MAX daily dose 78 units, E11.65, # 45 mL, 6 Refills, Maintenance, 01/21/20 14:30:00 EDT, [facility]/pharmacy #1026, 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 Start Date: 01/21/20 Status: Ordered Jgu-lmb-iylzf medical-grade oxford diabetic shoes, depth or hightop Rzj-wdc-cvpfr medical-grade oxford diabetic shoes, depth or hightop, See Instructions, # 1 each, Refills 0, Tot. 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 Start Date: 07/21/21 Status: Ordered Pen [place], 32 G x 4 mm BD Ultra [...] 04/28/21 14:02:00 EST, Route to Pharmacy Electronically, [facility]/pharmacy #1026, 160... Start Date: 04/28/21 Stop [...] 11 Refills, Maintenance, 04/28/21 14:03:00 EST, Tablet, [facility]/pharmacy #1026, 160, cm, 04/28/21 9:50:00 EST, Height, 80.6, kg, 06/03/20 19:00:00 EST, Dry Weight Start Date: 04/28/21 Status: Ordered Senna-Time 8.6 mg oral tablet 2 tablet, By Mouth, 2 times a day, PRN NEEDED FOR CONSTIPATION,INSTR, DISCONTINUE DOCUSATE, # 60tablet, 11 Refills, [facility] 15006, 160, cm, 03/03/21 11:23:00 EST, Height, 80.6, [...] InstructionsReplace Required Details, Route to Pharmacy Electronically, [facility] [id number], 160, cm, 09/21/21 8:54:00 EDT, Height, 80.6, [...] 09/15/21 9:03:00 EDT, Route to Pharmacy Electronically, [facility]/pharmacy #1026, Partial fill upon patient request if the prescri... Start Date: 09/15/21 Stop Date: 03/02/22 Status: Ordered Trelegy Ellipta inhalation powder 1 puffs, Inhalation, Daily, at the same time every day Given by Juice Tester, Dr. Michael Berkowitz, # 60 each, 0 Refills, Maintenance, 07/21/21 11:59:00 EDT, Powder, Partial fill upon patient request if the prescription is for a schedule II opi... 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 5LE US- DVT involving 2 of [...] 06/16/08 SURGEON: Danny Marie M.D. HOME HEALTH CARE RESPIRATORY THERAPIST: Naima Bowling M.D. 22b/l submassive PE diagnosed on Dec 20 in [facility] 23TTE 12/22/15 in [facility]: RV dilatation, RVSP 46 24Per ECHO 05/24/17 Trace mitral regurgitation , trace TC regurgitation w no significant valve pathology 25meg colo July 2009 exc for 2 hyperplastic polyps 26Colonoscopy 2004 at [facility] [place] per letter of Dr Amor Dobbins Social History Social History Type Response Smoking Status Never (less than 100 in lifetime) entered on: 10/22/20 Sex Care Team Personnel Name: Gayathri GARZA, Folrinda Address: [address] [place] [address]
--- OUTSIDE RECORDS SUMMARY | 2023-10-23 09:48 | XMS_ITS | Continuity of Care Document ---
Author Organization [facility] Address [address] [place] [address]- Care Team Providers Care Loss Control Consultant Name Role Phone Gayathri GARZA, Florinda Primary Care Physician [facility]counter [facility] Date(s): 01/17/22 - 02/16/22 [facility] [address] [place] [address]- Allergies, Adverse Reactions, Alerts Substance Reaction Severity Status penicillin RASH Active morphine itchy Active Bactrim 1 hyperkalemia Active Lidocaine, Topical Active 1Hyperkalemia when used together with lisinopril Immunizations Given and Recorded Vaccine Date Status Refusal Reason zoster vaccine, inactivated 12/08/21 Given zoster vaccine, inactivated 09/15/21 Given SARS-CoV-2 mRNA (ayceiuj-tcui-innno) vax 09/15/21 Given SARS-CoV-2 (COVID-19) mRNA BNT-162b2 [...] 03/16/22 13:10:00 EST, 02/16/22 13:10:00 EST, Tablet, [facility], Partial greyson... Start Date: 02/16/22 Stop Date: [...] needed for anxiety and 1tab at HS jpddka-qgs-yejft, # 60 tablet, 11 Refills, Maintenance, 09/15/21 9:02:00 EDT, [facility], Partial fill upon patient request... Start Date: 09/15/21 Status: Ordered capsaicin 0.025% topical cream 1 application, Topically, 3 times a day, # 35 Gm, 11 Refills, Maintenance, 07/21/21 12:26:00 EDT, Cream, [facility]/pharmacy #1026, 1 application Topically 3 [...] 11 Refills, Maintenance, 04/21/21 18:12:00 EST, Tablet, [facility]/pharmacy #1026, 160, cm, 03/03/21 11:23:00 EST, Height, 80.6, kg, 06/03/20 19:00:00 EST, Dry Weight Start Date: 04/21/21 Status: Ordered escitalopram 20 mg oral tablet 1 tablet = 20 mg, By Mouth, Daily, # 30 tablet, 11 Refills, Maintenance, 12/06/21 15:04:00 EDT, Tablet, [facility], Partial fill upon patient request [...] 3 Refills, Maintenance, 07/12/21 18:53:00 EDT, Tablet,[facility]/pharmacy #1026, Discontinue 30- day supply [...] 04/28/21 14:34:00 EST, Route to Pharmacy Electronically, [facility]/pharmacy #1026, Can use with HCTZ, 160, [...] capsule, 3 Refills, Maintenance, 11/19/21 14:28:00 EDT, [facility]/pharmacy #1026, 160, cm, 11/05/21 9:50:00 EDT, Height, 80.5, kg, 11/05/21 9:50:00 EDT, Dry Weight Start Date: 11/19/21 Stop Date: 11/14/22 Status: Ordered ketotifen 0.025% ophthalmic solution 1 drops, Eyes, Both, Every 12 hours, PRN as needed for eye allergy, # 7.5 mL, 11 Refills, Maintenance, 06/25/21 8:34:00 EDT, [facility]/pharmacy #1026, 1 drops [...] LOS HDZ, # 90 tablet, 1 Refills, [facility] 357[facility], 90, TOME GAGE TABLETA POR VIA ORAL [...] capsule, 11 Refills, Maintenance, 04/28/21 14:00:00 EST, [facility]/pharmacy #1026, Discontinue pantoprazole, 160, cm, 04/28/21 [...] 09/21/21 9:23:00 EDT, Route to Pharmacy Electronically, [facility], Partial fill upon patient request if [...] #1026, 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 Start Date: 01/17/22 Status: Ordered Mkt-uhv-kklig medical-grade oxford diabetic shoes, depth or hightop Tqp-wji-tbevn medical-grade oxford diabetic shoes, depth or hightop, See Instructions, # 1 each, Refills 0, Tot. 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 Start Date: 07/21/21 Status: Ordered Pen [place], 32 G x 4 mm BD Ultra [...] the same time every day Given by Public Works Commissioner, Dr. iMchael Berkowitz, # 60 each, 0 Refills, Maintenance, 07/21/21 11:59:00 EDT, Powder, Partial fill upon patient request if the prescription is for a schedule II opi... Start Date: 07/21/21 Status: Ordered Tresiba FlexTouch 200 units/mL subcutaneous solution See Instructions, INJECT 86 UNITS DAILY AT 9PM, # 45 Unknown, 6 Refills, [facility], 160, cm, 06/21/21 9:57:00 EDT, Height, 80.6, kg, 06/03/20 19:00:00 EST, Dry Weight Start Date: 06/22/21 Status: Ordered Ventolin HFA 108 mcg/inh inhalation aerosol with adapter 2 puffs, Inhalation, 4 times a day, PRN Wheezing/Shortness of Breath, dispense when patient requestit, # 18 Gm, 5 Refills, Maintenance, 11/09/20 12:36:00 EDT, [facility]/pharmacy #1026, 160, cm, 10/22/20 9:15:00 EDT, Height, 80.6, kg, 06/03/20 19:00:00 EST,... Start Date: 11/09/20 Status: Ordered Voltaren 1% topical gel = 2 Gm, Topically, 4 times a day, # 100 Gm, 5 Refills, Maintenance, 02/15/21 11:40:00 EST, [facility]/pharmacy #1026, 2 Gm Topically 4 times a day,x14 days, 160, cm, 02/15/21 8:47:00 EST, Height, 80.6, kg, 06/03/20 19:00:00 EST, Dry Weight Start Date: 02/15/21 Stop Date: 05/10/21 Status: Ordered Saunemin Reusable Bed Pad 34 x 36 Saunemin Reusable Bed Pad 34 x 36 , [...] Osteopenia 18, 19, 20 Confirmed 11/16/12 Active *[id number] Tape Keller Operator Karine More Confirmed Active Peripheral venous [...] 11left mild sensorineural hearing loss by [facility] Hearing Evaluation on 12/29/11 12Narcotic [...] lower parathyroidectomy. 06/16/08 SURGEON: Danny Marie M.D. CANDLEMAKER: Naima Bowling M.D. 22b/l submassive PE diagnosed on Dec 20 in [facility] 23TTE 12/22/15 in [facility]: RV dilatation, RVSP 46 24Per ECHO 05/24/17 Trace mitral regurgitation , trace TC regurgitation w no significant valve pathology 25meg colo July 2009 exc for 2 hyperplastic polyps 26Colonoscopy 2004 at [facility] [place] per letter of Dr Amor Dobbins Social History Social History Type Response Smoking Status Never (less than 100 in lifetime) entered on: 10/22/20 Sex Patient Care team information Care Team Personnel Name: Diamond Weiss RN Position: [facility] RN Member Role: Primary Care Nurse Name: Tiara Cavazos RN Position: [facility] OB RN Member Role: Primary Care Nurse Name: Shreya Boss RN Position: [facility] RN Member Role: Primary Care Nurse Name: Kelley RNVirginia Position: [facility] RN Member Role: Primary Care Nurse Name: Jaylin Hernandez RN Position: [facility] Onco RN Member Role: Primary Care Nurse Name: Glen Cota MD Position: [facility] Renal MD Member Role: Lifetime Consulting Physician Address: Address: [address] [place] [address] [facility] [address] Name: Florinda Trinh MD Position: [facility] Primary Care Physician Member Role: PCP Address: Address: [address] [place] [address] Care Team Related Persons Name: JOSE ELIAS TODD Address: [place] [address] Name: JOSE ELIAS KIRKLAND Address: home [address] [place] [address] Name: LEONIE SCHRADER Address: [place] [address]
--- OUTSIDE RECORDS SUMMARY | 2023-10-23 09:48 | XMS_ITS | Continuity of Care Document ---
Author Organization [facility] Address Unknown Care Team Providers Care Trial Examiner Name Role Phone Gayathri GARZA, Florinda Primary Care Physician [facility] Date[facility]s): 12/25/20 - 01/24/21 [facility] Referring Physician: Marisabel Camarillo Allergies, Adverse Reactions, [...] by melissa craft 8Admin Note: ADMINISTERED BY [email or web address] 9Result Comment: [...] or fever, (not to exceed 2000 mg/day) vincentian, # 100 tablet, 11 Refills, Maintenance, 08/14/20 [...] 3 Refills, Soft Stop, 06/26/20 7:30:00 EDT, [facility]/pharmacy #1026, Partial fill upon patient [...] 11 Refills, Maintenance, 01/18/21 18:00:00 EDT, Tablet, [facility]/pharmacy #1026, 160, cm, 10/22/20 9:15:00 EDT, Height, 80.6, kg, 06/03/20 19:00:00 EST, Dry Weight Start Date: 01/18/21 Status: Ordered escitalopram 20 mg oral tablet 1 tablet = 20 mg, By Mouth, Daily, Discontinue duloxetine 60 mg, # 30 tablet, 11 Refills, Maintenance, 12/09/20 11:15:00 EDT, Tablet, [facility]/pharmacy #1026, Partial fill upon patient [...] tablet, 3 Refills, Maintenance, 06/30/20 14:55:00 EDT, Tablet,[facility]/pharmacy #1026, Discontinue 30- day supply [...] 78.8, kg,... Start Date: 01/21/20 Status: Ordered Vzk-imu-pppje medical-grade oxford diabetic shoes, depth or hightop Irx-gxv-szyde medical-grade oxford diabetic shoes, depth or hightop, [...] days, PRN pain dispense not earlier than 01/22/21,# 168 tablet, Refills 0, Tot. Refills 0, Acute 02/19/21 17:14:00 EST, 01/22/21 17:14:00 EDT, Route to Pharmacy Electronically, [facility]/pharmacy #1026, Par... Start Date: 01/22/21 Stop Date: 02/19/21 Status: Ordered Pen [place], 32 G x 4 mm BD Ultra [...] HDZ, # 30 tablet, 5 Refills, Maintenance, [facility] 88300, 160, cm, 10/22/20 9:15:00 EDT, Height, 80.6, [...] Maintenance, 10/15/20 16:28:00 EDT, Routeto Pharmacy Electronically, [facility]/pharmacy #1026, 160... Start Date: 10/15/20 Status: Ordered TENS electrode pads TENS electrode pads, See Instructions, # 1 box, Refills 5, Tot. Refills 5, Maintenance, use as directed for back pain Dx LBP M54.9 1 box of 4, 12/06/16 14:59:01, Compound Start Date: 12/06/16 Status: Ordered Trelegy Ellipta inhalation powder 1 puffs, Inhalation, Daily, at the same time every day given by machine lead burner , Dr Berkowitz, # 60 each, 0 Refills, Maintenance, 11/20/19 13:03:00 EDT, Powder Start Date: 11/20/19 Status: Ordered Tresiba FlexTouch 200 units/mL subcutaneous solution See Instructions, Inject 55 units daily at 9pm, E11.65. titrate accordingly, # 45 mL, 6 Refills, Maintenance, 01/21/20 14:30:00 EDT, [facility]/pharmacy #1026, 167, cm, [...] Date: 09/22/20 Stop Date: 12/15/20 Status: Ordered Quail Reusable Bed Pad 34 x 36 Quail Reusable Bed Pad 34 x 36 , [...] apnea)(Confirmed) Active Osteopenia(Confirmed) 18, 19 11/16/12 Active *[phone] Care Partn Karine [place](Confirmed) Active Peripheral [...] peroneal veins diagnosed on Dec 20 [facility] 6insulin dependent 7Per ECHO 05/24/1718 Grade [...] lower parathyroidectomy. 06/16/08 SURGEON: Danny Marie M.D. WASTEWATER PROJECT MANAGER: Naima Bowling M.D. 21b/l submassive PE diagnosed on Dec 20 in [facility] 22TTE 12/22/15 in [facility]: RV dilatation, RVSP 46 23Per ECHO 05/24/17 Trace mitral regurgitation , trace TC regurgitation w no significant valve pathology 24meg colo July 2009 exc for 2 hyperplastic polyps 25Colonoscopy 2004 at [facility] [place] per letter of Dr Amor Dobbins Social History Social History Type Response Smoking Status Never (less than 100 in lifetime) entered on: 10/22/20 Sex
--- OUTSIDE RECORDS SUMMARY | 2023-10-23 09:48 | XMS_ITS | Continuity of Care Document ---
Author Organization [facility] Address [address] [place] [address]- Care Team Providers Care Floor Hand Name Role Phone Florinda Trinh MD Primary Care Physician Encounter [facility] Date(s): 04/24/20 - 05/31/20 [facility] [address] [place] [address]- Attending Physician: Florinda Trinh MD Admitting Physician: [...] or fever, (not to exceed 2000 mg/day) congolese, # 100 tablet, 5 Refills, Maintenance, 01/22/20 [...] 01/21/21 19:13:00 EDT, 01/27/20 19:13:00 EDT, Tablet, [facility]/pharmacy #[id number], 167, cm, 01/13/20 8:54:00 EDT, Height, 78.8, kg, 01/01/20 3:41:00 EDT, Dry... Start Date: 01/27/20 Stop Date: 01/21/21 Status: Ordered capsaicin 0.025% topical cream 1 application, Topically, 3 times a day, # 90 Gm, 11 Refills, Maintenance, 02/10/20 11:22:00 EST, Cream, [facility]/pharmacy #1026, 1 application Topically 3 [...] Refills, Maintenance, 01/27/20 19:13:00 EDT, EC Capsule, [facility]/pharmacy #1026, 167, cm, 01/13/20 8:54:00 EDT, Height, 78.8, kg, 01/01/20 3:41:00 EDT, Dry Weight Start Date: 01/27/20 Status: Ordered Eliquis 5 mg oral tablet 1 tablet = 5 mg, By Mouth, 2 times a day, # 60 tablet, 11 Refills, Maintenance, 02/10/20 11:22:00 EST, Tablet, [facility]/pharmacy #1026, 167, cm, 01/13/20 8:54:00 EDT, Height, 78.8, kg, 01/01/20 3:41:00 EDT, Dry Weight Start Date: 02/10/20 Status: Ordered enalapril 10 mg oral tablet 10 mg, 1, tablet, By Mouth, Daily, discontinue hydrochlorothiazide, # 30 tablet, Refills 11, Tot. Refills 11, Maintenance, 04/29/20 13:04:00 EST, Route to Pharmacy Electronically, [facility]/pharmacy #1026,167, cm, 04/29/20 9:24:00 EST, Height, 82, kg, ... Start Date: 04/29/20 Status: Ordered famotidine 40 mg oral tablet 1 tablet = 40 mg, By Mouth, Daily at bedtime, If 40 mg tablet is not available, can change to 20 mgtablet 2 tablet at bedtime, # 30 tablet, 2 Refills, Maintenance, 04/04/20 16:07:00 EST, Tablet, [facility]/pharmacy #1026, 167, cm, 02/24/20 17:04:00 EST, [...] capsule, 4 Refills, Maintenance, 01/22/20 9:39:00 EDT, [facility]/pharmacy #1026, 167, cm, 01/13/20 8:54:00 EDT, Height, 78.8, kg, 01/01/20 3:41:00 EDT, Dry Weight Start Date: 01/22/20 Stop Date: 06/20/20 Status: Ordered ketotifen 0.025% ophthalmic solution 1 drops, Eyes, Both, Every 12 hours, PRN as needed for eye allergy, # 7.5 mL, 11 Refills, Maintenance, 01/27/20 19:13:00 EDT, [facility]/pharmacy #1026, 1 drops Eyes, Both [...] 01/22/20 9:41:00 EDT, Route to Pharmacy Electronically, [facility]/pharmacy #1026, 167, cm, 01/13/20 8:54:00 EDT, Height, 78... Start Date: 01/22/20 Status: Ordered NovoLOG FlexPen 100 units/mL subcutaneous solution See Instructions, Inject up to 26 untis via Insulin sliding scale 3x a day w/meals,MAX daily dose 78 units, E11.65, # 45 mL, 6 Refills, Maintenance, 01/21/20 14:30:00 EDT, [facility]/pharmacy #1026, 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 Start Date: 01/21/20 Status: Ordered Rbe-umu-niskv medical-grade oxford diabetic shoes, depth or hightop Iao-tdm-hgakb medical-grade oxford diabetic shoes, depth or hightop, [...] 07/10/20 Stop Date: 08/07/20 Status: Ordered Pen [place], 32 G x 4 mm BD Ultra Fine III See Instructions, # 360 each, Refills 3, Tot. Refills 3, Maintenance, Use as directed for insulin use 4 times a day DX IDDM; 90 days, 06/21/19 15:55:00 EDT, Compound, 159, cm, 05/20/19 12:19:00 EST, Height, 88.1, kg, 04/25/19 16:02:00 EST, DLizbet.. Start Date: 06/21/19 Status: Ordered PLEASE DO [...] 527 Gm,11 Refills, Maintenance, 01/27/20 19:13:00 EDT, [facility]/pharmacy #1026, 17- 34 Gm By [...] 02/10/20 11:22:00 EST, Route to Pharmacy Electronically, [facility]/pharmacy #1026 Tablet, 167, cm, 01/13/20 [...] 05/01/20 9:28:00 EST, Route to Pharmacy Electronically, [facility]/pharmacy #1026, 167,... Start Date: 05/01/20 Status: Ordered TENS electrode pads TENS electrode pads, See Instructions, # 1 box, Refills 5, Tot. Refills 5, Maintenance, use as directed for back pain Dx LBP M54.9 1 box of 4, 12/06/16 14:59:01, Compound Start Date: 12/06/16 Status: Ordered Trelegy Ellipta inhalation powder 1 puffs, Inhalation, Daily, at the same time every day given by grinder chipper , Dr Berkowitz, # 60 each, 0 [...] Gm, 5 Refills, Maintenance, 01/22/20 9:19:00 EDT, [facility]/pharmacy #1026, 167, cm, 01/13/20 8:54:00 EDT, Height, 78.8, kg, 01/01/20 3:41:00 EDT, D... 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 06/16/08 SURGEON: Danny Marie M.D. PULLMAN CLERK: Naima Bowling M.D. 21b/l submassive PE diagnosed on Dec 20 in [facility] 22TTE 12/22/15 in [facility]: RV dilatation, RVSP 46 23Per ECHO 05/24/17 Trace mitral regurgitation , trace TC regurgitation w no significant valve pathology 24meg colo July 2009 exc for 2 hyperplastic polyps 25Colonoscopy 2004 at [facility] [place] per letter of Dr Amor Dobbins Social History Social History Type Response Smoking Status Never (less than 100 in lifetime) entered on: 04/29/20 Sex
--- OUTSIDE RECORDS SUMMARY | 2023-10-23 09:48 | XMS_ITS | Continuity of Care Document ---
Author Organization [facility] Address [address] [place] [address]- Care Team Providers Care Nipple Machine Operator Name Role Phone Massimo Figueroa Primary Care Physician [phone] En[place] [facility] Date(s): 07/14/23 - 08/13/23 [facility] [address] [address]- Allergies, Adverse Reactions, Alerts Substance Reaction Severity [...] virus vaccine, inactivated 6 05/06/04 Gi zeny [id number] 12y+ bivalent booster vax 05/25/22 Given zoster vaccine, inactivated 12/08/21 Given zoster vaccine, inactivated 09/15/21 Given SARS-CoV-2 mRNA ([id number]) vax 09/15/21 Given SARS-CoV-2 (COVID-19) mRNA BNT-162b2 [...] Maintenance, 05/25/22 12:08:00 EST, ER Tablet, [facility], Discontinue Motrin, 158, cm, 05/25/22 11:12:00... Start [...] Biotene Moisturizing Mouth oral spray See Instructions, [place] directly into mouth; spray is safe to [...] P.M. NEEDED & 1 TAB AT [facility], # 180 tablet, 1 Refills, Maintenance, 08/05/22 12:49:00 EDT, [id number], 158, cm, 07/12/22 11:54:00 EDT, Height, 76, [...] 11 Refills, Maintenance, 12/06/21 15:04:00 EDT, Tablet, [facility], Partial fill upon patient [...] Refills, Maintenance, 07/08/22 9:47:00 EDT, [facility], 158, cm, 06/16/22 11:27:00 EST, Height, 76, [...] # 15... Start Date: 11/24/22 Status: Ordered Tlj-fug-qcmhf medical-grade oxford diabetic shoes, depth or hightop Tcj-nko-xtuxk medical-grade oxford diabetic shoes, depth or hightop, [...] DOLOR Start Date: 11/24/22 Status: Ordered Pen [place], 32 G x 4 mm BD Ultra [...] tablet, 11 Refills, Maintenance, 03/09/22 11:39:00 EST, [facility]/pharmacy #0838, 160, cm, [...] Gm, 5 Refills, Maintenance, 03/09/22 11:55:00 EST, [facility]/pharmacy #0838, 2 Gm Topically 4 times a day,x14 days, 160, cm, 03/09/22 10:43:00 EST, Height, 78, kg, 01/14/22 19:37:00 EDT, Dry Weight Start Date: 03/09/22 Stop Date: 06/01/22 Status: Ordered [place] Reusable Bed Pad 34 x 36 [place] Reusable Bed Pad 34 x 36 , [...] Confirmed 12/29/11 Active Hepatitis C Confirmed Active 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 06/16/08 SURGEON: Danny Marie M.D. FORESTRY BIOLOGY SPECIALIST: Naima Bowling M.D. 22b/l submassive PE diagnosed on Dec 20 in [facility] 23TTE 12/22/15 in [facility]: RV dilatation, RVSP 46 24Per ECHO 05/24/17 Trace mitral regurgitation , trace TC regurgitation w no significant valve pathology 25meg colo July 2009 exc for 2 hyperplastic polyps 26Colonoscopy 2004 at [facility] [place] per letter of Dr Amor Dobbins Social History Social History Type Response Smoking Status Never (less than 100 in lifetime) entered on: 10/22/20 Sex Patient Care team information Care Team Personnel Name: Massimo Figueroa Position: [facility] Outreach Member Role: PCP Address: Address: [address] [place] [address] Name: Oneil Ye RN Position: [facility] Outreach Member Role: Primary Care Nurse Name: Diamond Weiss RN Position: S RN Member Role: Primary Care Nurse Name: Tiara Cavazos RN Position: [facility] OB RN Member Role: Primary Care Nurse Name: Shreya Boss RN Position: S RN Member Role: Primary Care Nurse Name: Methe RN, Dhruv Position: [facility] RN Member Role: Primary Care Nurse Name: Virginia Benson RN Position: [facility] AMB Nurse Member Role: Primary Care Nurse Name: Glen Cota MD Position: [facility] Renal MD Member Role: Lifetime Consulting Physician Address: Address: [address] [place] [address] [facility] [address] Name: Carole Toro LPN Position: [facility] RN Member Role: Primary Care Nurse Care Team Related Persons Name: JOSE ELIAS TODD Address: [place] [address] Name: JOSE ELIAS KIRKLAND Address: home [address] [place] [address] Name: LEONIE SCHRADER Address: [place] [address]
--- OUTSIDE RECORDS SUMMARY | 2023-10-23 09:48 | XMS_ITS | Continuity of Care Document ---
Author Organization [facility] ter Address [address] [place] [id number]- Care Team Providers Care Program Paraprofessional Name Role Phone Florinda Trinh MD Primary Care Physician Encounter [facility] Date(s): 01/08/21 - 02/17/21 [facility] [address] [place] [id number] Attending Physician: Florinda Trinh MD Admitting [...] bruneian, # 100 tablet, 11 Refills, Maintenance, 08/14/20 10:13:00 EDT, [facility]/pharmacy #1026, 160, cm, 08/14/20 [...] mL, 11 Refills, Maintenance, 01/27/20 19:13:00 EDT, [facility]/pharmacy #1026, 1 drops Eyes, [...] 78.8, kg,... Start Date: 01/21/20 Status: Ordered Ejn-asy-nrpid medical-grade oxford diabetic shoes, depth or hightop Aoa-qka-cohjs medical-grade oxford diabetic shoes, depth or hightop, [...] 01/22/21 17:14:00 EDT, Route to Pharmacy Electronically, [facility]/pharmacy #1026, Par... Start Date: 01/22/21 Stop Date: 02/19/21 Status: Ordered oxyCODONE 5 mg oral tablet 5 mg, 1, tablet, By Mouth, Every 4 hours, for 28 days, PRN pain dispense not earlier than 02/19/21 If oxycodone 5 mg tablet is not available, it can be switched to oxycodone 10 mg 0.5 tablets 4 [id number] days for 84 tablets, # 168 tablet, Refills 0,... Start Date: 02/19/21 Stop Date: 03/19/21 Status: Ordered oxyCODONE 5 mg oral tablet 5 mg, 1, tablet, By Mouth, Every 4 hours, for 28 days, PRN pain dispense not earlier than 03/19/21 If oxycodone 5 mg tablet is not available, it can be switched to oxycodone 10 mg 0.5 tablets 4 [id number] days for 84 tablets, # 168 tablet, [...] 04/16/21 Stop Date: 05/14/21 Status: Ordered Pen [place], 32 G x 4 mm BD Ultra [...] 527 Gm,11 Refills, Maintenance, 01/27/20 19:13:00 EDT, [facility]/pharmacy #1026, 17- 34 Gm [...] 30 tablet, 5 Refills, Maintenance, [facility], 160, cm, 10/22/20 9:15:00 EDT, Height, 80.6, kg, 06/03/20 19:00:00 EST, Dry Weight Start Date: 11/13/20 Status: Ordered Senna 8.6 mg oral tablet 17.2 mg, 2, tablet, By Mouth, 2 times a day, PRN, discontinue docusate, # 60 tablet, Refills 11, Tot. Refills 11, Maintenance, for constipation, 02/10/20 11:22:00 EST, Route to Pharmacy Electronically, [facility]/pharmacy #1026 Tablet, 167, cm, [...] Maintenance, 10/15/20 16:28:00 EDT, Rout[facility] Pharmacy Electronically, [facility]/pharmacy #1026, 160... Start Date: [...] 02/15/21 11:39:00 EST, Route to Pharmacy Electronically, [facility]/pharmacy #1026,Partial fill upon patient request if the prescrip... Start Date: 02/15/21 Stop Date: 03/29/21 Status: Ordered Trelegy Ellipta inhalation powder 1 puffs, Inhalation, Daily, at the same time every day given by helix coil winder , Dr Berkowitz, # 60 each, 0 Refills, Maintenance, 11/20/19 13:03:00 EDT, Powder Start Date: 11/20/19 Status: Ordered Tresiba FlexTouch 200 units/mL subcutaneous solution See Instructions, Inject 55 units daily at 9pm, E11.65. 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 06/16/08 SURGEON: Danny Marie M.D. SUPERVISOR SPRING UP: Naima Bowling M.D. 21b/l submassive PE diagnosed on Dec [address] [facility] 22TTE 12/22/[address] [facility]: RV dilatation, RVSP 46 23Per ECHO 05/24/17 Trace mitral regurgitation , trace TC regurgitation w no significant valve pathology 24meg colo July 2009 exc for 2 hyperplastic polyps 25Colonoscopy 2004 at [facility] [place] per letter of Dr Amor Dobbins Social History Social History Type Response Smoking Status Never (less than 100 in lifetime) entered on: 10/22/20 Sex
--- OUTSIDE RECORDS SUMMARY | 2023-10-23 09:48 | XMS_ITS | Continuity of Care Document ---
Author Organization [facility] Address [address] [place] [address]- Care Team Providers Care Southeast Regional Sales Manager Name Role Phone Gayathri GARZA, Florinda Primary Care Physician Encounter [facility] Date(s): 04/27/22 - 05/27/22 [facility] [address] [place] [address]- Allergies, Adverse Reactions, Alerts Substance Reaction Severity Status penicillin RASH Active morphine itchy Active Bactrim 1 hyperkalemia Active Lidocaine, Topical Active 1Hyperkalemia when used together with lisinopril Immunizations Given and Recorded Vaccine Date Status Refusal Reason [id number] 12y+ bivalent booster vax 05/25/22 Given influenza [...] zoster vaccine, inactivated 09/15/21 Given SARS-CoV-2 mRNA (xxvfybr-besp-oxszh) vax 09/15/21 Given SARS-CoV-2 (COVID-19) mRNA BNT-162b2 [...] Refills, Maintenance, 05/25/22 12:08:00 EST, ER Tablet, [facility]/pharmacy #0838, Discontinue Motrin, 158, cm, 05/25/22 [...] Soft Stop, 03/09/22 11:35:00 EST, [facility]/pharmacy #0838, 160, cm, 03/09/22 10:43:00EST, Height, 78, kg, 01/14/22 19:37:00 EDT, Dry W... Start Date: 03/09/22 Status: Ordered Biotene Moisturizing Mouth oral spray See Instructions, [place] directly into mouth; spray is safe to swallow as needed for dry mouth, # 45mL, 11 Refills, Maintenance, 05/25/22 12:42:00 EST, [facility]/pharmacy #0838, Partial fill upon patient [...] needed for anxiety and 1tab at HS slywbc-vwi-fhxuy, # 60 tablet, 11 Refills, Maintenance, 09/15/21 [...] 11 Refills, Maintenance, 12/06/21 15:04:00 EDT, Tablet, [facility], Partial fill upon patient [...] Status: Ordered Freestyle rony 2 sensor Freestyle orny 2 sensor, See Instructions, # 2 each, [...] 04/19/22 10:15:00 EST, Route to Pharmacy Electronically, [facility]/pharmacy #0838, Partial fill upon patient [...] 90 tablet, 3 Refills, 03/09/22 11:57:00 EST, [facility]/pharmacy #0838, 1 tablet By Mouth Daily before dinner,PRN:allergies, 160, cm, 03/09/22 10:43:00 EST, Height, 78, kg, 01/14/22 19:37:00 ED... Start Date: 03/09/22 Status: Ordered montelukast 10 mg oral tablet 10 mg, 1, tablet, By Mouth, Daily at bedtime, # 90 tablet, Refills 3, Tot. Refills 3, Maintenance, 03/09/22 11:37:00 EST, Route to Pharmacy Electronically, [facility]/pharmacy #0838, 160, cm, 03/09/22 10:43:00 EST, Height, 78, kg, 01/14/22 19:37:00 EDT, Dry... 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 Start Date: 03/09/22 Status: Ordered Drg-xgu-kklfq medical-grade oxford diabetic shoes, depth or hightop Iki-fpt-zudhc medical-grade oxford diabetic shoes, depth or hightop, [...] 05/27/22 Stop Date: 06/24/22 Status: Ordered Pen [place], 32 G x 4 mm BD Ultra [...] the same time every day Given by Hydroelectric Machinery Mechanic Helper, Dr. 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 06/16/08 SURGEON: Danny Marie M.D. MERCHANDISE CARRIER: Naima Bowling M.D. 22b/l submassive PE diagnosed on Dec 20 in [facility] 23TTE 12/22/15 in [facility]: RV dilatation, RVSP 46 24Per ECHO 05/24/17 Trace mitral regurgitation , trace TC regurgitation w no significant valve pathology 25meg colo July 2009 exc for 2 hyperplastic polyps 26Colonoscopy 2004 at [facility] [place] per letter of Dr Amor Dobbins Social History Social History Type Response Smoking Status Never (less than 100 in lifetime) entered on: 10/22/20 Sex Patient Care team information Care Team Personnel Name: Diamond Weiss RN Position: [facility] RN Member Role: Primary Care Nurse Name: Tiara Cavazos RN Position: [facility] OB RN Member Role: Primary Care Nurse Name: Shreya Boss RN Position: [facility] RN Member Role: Primary Care Nurse Name: Virginia Benson RN Position: [facility] RN Member Role: Primary Care Nurse Name: Jaylin Hernandez RN Position: [facility] Onco RN Member Role: Primary Care Nurse Name: Glen Cota MD Position: [facility] Renal MD Member Role: Lifetime Consulting Physician Address: Address: [address] [place] [address] [facility] [place] [address]- Name: Florinda Trinh MD Position: [facility] Primary Care Physician Member Role: PCP Address: Address: [address] [place] [address] Care Team Related Persons Name: JOSE ELIAS TODD Address: [place] [address] Name: JOSE ELIAS KIRKLAND Address: home [address] [place] [address] Name: LEONIE SCHRADER Address: [place] [address]
--- OUTSIDE RECORDS SUMMARY | 2023-10-23 09:48 | XMS_ITS | Continuity of Care Document ---
Author Organization [facility] Address [address] [place] [address]- Care Team Providers Care Nutritional Yeast Supervisor Name Role Phone Florinda Trinh MD Primary Care Physician [place] [facility] [place] - 08/28/19 [facility] [address] [place] [address]- [facility] Attending Physician: Florinda Trinh MD Allergies, Adverse Reactions, [...] libyan, # 100 tablet, 11 Refills, Maintenance, 01/16/19 [...] 11 Refills, Maintenance, 06/30/19 9:28:00 EDT, Powder, [facility]/pharmacy #0957, 159, cm, 05/20/19 12:19:00 EST, [...] mL, 1 Refills, Maintenance, 07/19/19 14:55:00 EDT, [facility], Drops should remain in ear for [...] Refills, Maintenance, 03/27/19 9:10:00 EST, EC Capsule, [facility], 159, cm, 03/20/19 14:59:00 EST, Height, 88.3, kg, 12/13/18 10:17:00 EDT, Dry Weight Start Date: 03/27/19 Status: Ordered docusate sodium 100 mg oral tablet 1 tablet = 100 mg, By Mouth, 2 times a day, # 60 tablet, 11 Refills, Maintenance, 05/20/19 12:31:00EST, [facility], 159, cm, 05/20/19 12:19:00 EST, Height, 88.1, kg, 04/25/19 16:02:00 EST, Dry Weight Start Date: 05/20/19 Status: Ordered Eliquis 5 mg oral tablet 1 tablet = 5 mg, By Mouth, 2 times a day, # 60 tablet, 11 Refills, Maintenance, 07/22/19 8:58:00 EDT, Tablet, [facility], 159, cm, 05/20/19 12:19:00 EST, Height, 88.1, kg, 04/25/19 16:02:00 EST, Dry Weight Start Date: 07/22/19 Status: Ordered enalapril 10 mg oral tablet 10 mg, 1, tablet, By Mouth, Daily, 90 days, # 90 tablet, Refills 3, Tot. Refills 3, Maintenance, 09/19/18 15:15:30 EDT, Route to Pharmacy Electronically, [id number], [facility] Start Date: 09/19/18 Status: Ordered famotidine 40 mg oral tablet 1 tablet = 40 mg, By Mouth, Daily at bedtime, If 40 mg tablet is not available, can change to 20 mgtablet 2 tablet at bedtime, # 30 tablet, 5 Refills, Maintenance, 04/17/19 9:17:00 EST, Tablet, [facility] [place], 159, cm, 04/17/19 8:24:0... Start Date: 04/17/19 Status: Ordered flunisolide 25 mcg/inh nasal spray 2 puffs, Nasal, 2 times a day, Keep your head down while using dispense when patient request it, # 1 each, 11 Refills, Maintenance, 07/10/19 17:15:00 EDT, [facility]/pharmacy #0957, discontinue nasacort, 2 puffs Nasal [...] capsule, 11 Refills, Maintenance, 06/30/19 9:25:00 EDT, [facility]/pharmacy #0957, 159, cm, 05/20/19 12:19:00 EST, [...] 01/16/19 8:53:23 EDT, Route to Pharmacy Electronically, [id number], [facility] [place]... Start Date: 01/16/19 [...] Mouth Once Start Date: 06/05/18 Status: Ordered mirtazapine 15 mg oral tablet 1 tablet = 15 mg, By Mouth, Daily at bedtime, for 30 days, Dispense only if patient request it, # 30 tablet, 0 Refills, Acute 09/20/19 11:51:00 EDT, 08/21/19 11:51:00 EDT, [facility], 159, cm, 05/20/19 12:19:00 EST, Height, 88.1, k... 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 Start Date: 08/02/19 Stop Date: 08/30/19 Status: Ordered oxyCODONE 5 mg oral tablet 5 mg, 1, tablet, By Mouth, Every 4 hours, for 28 days, dispense not earlier than 08/30/19, # 137 tablet, Refills 0, Tot. Refills 0, Acute 09/27/19 12:47:00 EDT, 08/30/19 12:47:00 EDT, Route to Pharmacy Electronically, [facility], [place]... Start Date: 08/30/19 Stop Date: 09/27/19 Status: Ordered oxyCODONE 5 mg oral tablet 5 mg, 1, tablet, By Mouth, Every 4 hours, for 28 days, dispense not earlier than 09/27/19, # 137 tablet, Refills 0, Tot. Refills 0, Acute 10/25/19 12:47:00 EDT, 09/27/19 12:47:00 EDT, Route to Pharmacy Electronically, [facility], [place]... Start Date: 09/27/19 Stop Date: 10/25/19 Status: Ordered Pen [place], 32 G x 4 mm BD Ultra [...] 05/20/19 12:31:00 EST, Route to Pharmacy Electronically, [facility] Tablet, 159, cm, 05/20/19 12:19:00 ES... [...] Tot. Refills 5, Maintenance, 05/22/19 20:38:00 EST, [facility] Electron[facility], [facility] Start Date: 05/22/19 [...] mL, 2 Refills, Maintenance, 07/10/19 15:26:00 EDT, [facility]/pharmacy #0957, 159, cm, 05/20/19 12:19:00 EST, Height, 88.1, kg, 04/25/19 16:02:00 EST, DryWeight Start Date: 07/10/19 Status: Ordered Ventolin HFA 108 mcg/inh inhalation aerosol with adapter 2 puffs, Inhalation, 4 times a day, PRN Wheezing/Shortness of Breath, dispense when patient requestit, # 18 Gm, 5 Refills, Maintenance, 07/10/19 17:15:00 EDT, [facility]/pharmacy #0957, 159, cm, 05/20/19 12:19:00 EST, Height, 88.1, kg, 04/25/19 16:02:00 EST... 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-LBP(Confirmed) 10 Active Hypercholesterolemia(Confirmed) Active Hypertension(Confirmed) Active Hysterectomy(Confirmed) Active Incontinence of urine(Confirmed) Active Iron deficiency anemia(Confirmed) Active Left ventricular hypertrophy(Confirmed) 11 Active Memory impairment(Confirmed) Active Mitral regurgitation(Confirmed) 12 05/24/17 Active Nephrolithiasis(Confirmed) 13, 14, 15 06/11/02 Active Obesity(Confirmed) Active JENNIFER (obstructive sleep apnea)(Confirmed) Active Osteopenia(Confirmed) 16, 17 11/16/12 Active *[id number]-[facility] Partn david [...] on Dec 20 [facility] 5insulin dependent 6Per ECHO 05/24/1718 Grade I, mild diastolic dysfunction with impaired LV relaxation, which may be normal for the patient's age. 7EGD on 06/24/16 by GI, Dr Damien caballero gastritis and esophageal varices grade 1 8EGD on 06/24/16 by GI, Dr Damien Dobbins w gastritis and esophageal varices grade 1 9left mild sensorineural hearing loss by [facility] Hearing Evaluation on 12/29/11 10Narcotic contract [...] lower parathyroidectomy. 06/16/08 SURGEON: Danny Marie M.D. PUNCH MACHINE HAND: Naima Bowling M.D. 19b/l submassive PE diagnosed on Dec 20 in [facility] 20TTE 12/22/15 in [facility]: RV dilatation, RVSP 46 21Per ECHO 05/24/17 Trace mitral regurgitation , trace TC regurgitation w no significant valve pathology meg colo July 2009 exc for 2 hyperplastic polyps 23Colonoscopy 2004 at [facility] [place] per letter of Dr Amor Dobbins Social History Social History Type Response Smoking Status Never (less than 100 in lifetime) entered on: 04/17/19 Sex
--- OUTSIDE RECORDS SUMMARY | 2023-10-23 09:48 | XMS_ITS | Continuity of Care Document ---
Author Organization [facility] Address Unknown Care Team Providers Care Manager Urgent Care Name Role Phone Gayathri GARZA, Florinda Primary Care Physician Encounter [facility] Date(s): 11/27/20 - 12/27/20 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 Start Date: 01/21/20 Status: Ordered Caw-dpl-ayiag medical-grade oxford diabetic shoes, depth or hightop Lyn-pru-cklzo medical-grade [employer] Bluebook diabetic shoes, depth or hightop, See Instructions, [...] EDT, Route to Pharmacy Electronically, [facility]/pharmacy #1026, Part... Start Date: 12/25/20 Stop Date: 01/22/21 Status: Ordered Pen [place], 32 G x 4 mm BD Ultra [...] # 30 tablet, 5 Refills, Maintenance, [facility] STORE [id number], 160, cm, 10/22/20 9:15:00 EDT, Height, 80.6, kg, 06/03/20 19:00:00 EST, Dry Weight Start Date: 11/13/20 Status: Ordered Senna 8.6 mg oral tablet 17.2 mg, 2, tablet, By Mouth, 2 times a day, PRN, discontinue docusate, # 60 tablet, Refills 11, Tot. Refills 11, Maintenance, for constipation, 02/10/20 11:22:00 EST, Route to Pharmacy Electronically, [facility]/pharmacy #1026 Tablet, 167, cm, 01/13/20 8:5... Start [...] Maintenance, 10/15/20 16:28:00 EDT, [facility]... Start Date: 10/15/20 Status: Ordered TENS electrode pads TENS electrode pads, See Instructions, # 1 box, Refills 5, Tot. Refills 5, Maintenance, use as directed for back pain Dx LBP M54.9 1 box of 4, 12/06/16 14:59:01, Compound Start Date: 12/06/16 Status: Ordered Trelegy Ellipta inhalation powder 1 puffs, Inhalation, Daily, at the same time every day given by enrolled agent , Dr Berkowitz, # 60 each, [...] Date: 09/22/20 Stop Date: 12/15/20 Status: Ordered [place]raine Reusable Bed Pad 34 x 36 [place] Reusable Bed Pad 34 x 36 , [...] Refills, Maintenance, 10/22/20 10:19:00 EDT, Tablet, [facility]/pharmacy #1026, Partial fill upon patient request if the prescription is for a schedule II opioid drug., 1 tablet B... 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 Hearing Evaluation on 12/29/11 12Narcotic contract [...] lower parathyroidectomy. 06/16/08 SURGEON: Danny Marie M.D. GRADE FOREMAN: Naima Bowling M.D. 21b/l submassive PE diagnosed on Dec 20 in [facility] 22TTE 12/22/15 in [facility]: RV dilatation, RVSP 46 23Per ECHO 05/24/17 Trace mitral regurgitation , trace TC regurgitation w no significant valve pathology 24meg colo July 2009 exc for 2 hyperplastic polyps 25Colonoscopy 2004 at [facility] [place] per letter of Dr Amor Dobbins Social History Social History Type Response Smoking Status Never (less than 100 in lifetime) entered on: 10/22/20 Sex
--- OUTSIDE RECORDS SUMMARY | 2023-10-23 09:48 | XMS_ITS | Continuity of Care Document ---
Author Organization [facility] Address [address] [place] [address]- Care Team Providers Care National Sales Executive Name Role Phone Gayathri GARZA, Florinda Primary Care Physician [facility]counter [facility] Date(s): 02/23/21 - 03/25/21 [facility] [address] [place], [place] [address] [place] Attending Physician: Yaya Patino Admitting Physician: Yaya [...] 2000 mg/day) upper sorbian, # 100 tablet, 11 Refills, Maintenance, 08/14/20 [...] mL, 11 Refills, Maintenance, 01/27/20 19:13:00 EDT, [facility]/pharmacy #1026, 1 [...] 78.8, kg,... Start Date: 01/21/20 Status: Ordered Geh-nmn-pwnmq medical-grade oxford diabetic shoes, depth or hightop Fbo-ssq-qduay medical-grade oxford diabetic shoes, depth or hightop, [...] 04/19/21 Stop Date: 05/17/21 Status: Ordered Pen [place], 32 G x 4 mm BD Ultra Fine III See Instructions, # 360 each, Refills 3, Tot. Refills 3, Maintenance, Use as directed for insulin use 4 times a day DX IDDM; 90 days, 02/01/21 10:40:00 EDT, Compound, 160, cm, 01/28/21 13:05:00 EDT, Height, 80.6, kg, 06/03/20 19:00:00 ESTFaby.. Start Date: 02/01/21 Status: Ordered PLEASE DO [...] Refills, Maintenance, [facility] STORE 432[facility], 160, cm, 10/22/20 9:15:00 EDT, Height, 80.6, [...] the same time every day given by art objects supervisor , Dr Berkowitz, # 60 each, [...] Gm, 5 Refills, Maintenance, 11/09/20 12:36:00 EDT, [facility]/pharmacy #1026, 160, [...] Date: 02/15/21 Stop Date: 05/10/21 Status: Ordered [place] Reusable Bed Pad 34 x 36 [place] Reusable Bed Pad 34 x 36 , [...] abnormal(Confirmed) 11 12/29/11 Active Hepatitis C(Confirmed) Active detention current use of opi ate analgesic-LBP(Confirmed) 12 [...] apnea)(Confirmed) Active Osteopenia(Confirmed) 18, 19 11/16/12 Active *[id number] [facility] Partn igor [place](Confirmed) Active Peripheral venous insufficiency(Confirmed) 10/31/11 Active Positive [...] 11left mild sensorineural hearing loss by [facility] Hearing Evaluation on 12/29/11 12Narcotic [...] lower parathyroidectomy. 06/16/08 SURGEON: Danny Marie M.D. FINANCIAL SYSTEMS DIRECTOR: Naima Bowling M.D. 21b/l submassive PE diagnosed on Dec 20 in [facility] 22TTE 12/22/15 in [facility]: RV dilatation, RVSP 46 23Per ECHO 05/24/17 Trace mitral regurgitation , trace TC regurgitation w no significant valve pathology 24meg colo July 2009 exc for 2 hyperplastic polyps 25Colonoscopy 2004 at [facility] [place] per letter of Dr Amor Dobbins Social History Social History Type Response Smoking Status Never (less than 100 in lifetime) entered on: 10/22/20 Sex
--- OUTSIDE RECORDS SUMMARY | 2023-10-23 09:48 | XMS_ITS | Continuity of Care Document ---
Author Organization [facility] Address [address] [place] [address]- Care Team Providers Care Mechanical Expert Name Role Phone Gayathri GARZA, Florinda Primary Care Physician Encounter [facility] Date(s): 07/07/22 - 08/06/22 [facility]/[address] [address]- [place] Allergies, Adverse Reactions, Alerts Substance Reaction Severity Status enalapril Active penicillin RASH Active morphine itchy Active Bactrim 1 hyperkalemia Active Lidocaine, Topical Active 1Hyperkalemia when used together with lisinopril Immunizations Given and Recorded Vaccine Date Status Refusal Reason [id number] 12y+ bivalent booster vax 05/25/22 Given influenza [...] zoster vaccine, inactivated 09/15/21 Given SARS-CoV-2 mRNA ([id number]) vax 09/15/21 Given SARS-CoV-2 (COVID-19) mRNA BNT-162b2 [...] Refills, Maintenance, 05/25/22 12:08:00 EST, ER Tablet, [facility]/pharmacy #0838, Discontinue Motrin, 158, cm, 05/25/22 11:12:00... [...] 11 Refills, Maintenance, 07/21/21 12:43:00 EDT, [facility]/pharmacy #1026, 1 applicator Topically 2 times a day, 160, cm, 07/21/21 10:22:00 EDT, Height, 80.6, kg, 06/03/20 19:00:00 EST, Dry Weight Start Date: 07/21/21 Status: Ordered Baqsimi Two Pack 3 mg nasal powder = 3 mg, Naris, Right, Once, Please use for a low blood sugar emergency, may repeat in 15 minutes, #1 each, 3 Refills, Soft Stop, 03/09/22 11:35:00 EST, [facility]/pharmacy #0838, 160, cm, 03/09/22 10:43:00EST, Height, 78, kg, 01/14/22 19:37:00 EDT, Dry W... Start Date: 03/09/22 Status: Ordered Biotene Moisturizing Mouth oral spray See Instructions, [place] directly into mouth; spray is safe to swallow as needed for dry mouth, # 45mL, 11 Refills, Maintenance, 05/25/22 12:42:00 EST, [facility]/pharmacy #0838, Partial fill upon patient request if [...] Refills, Maintenance, 08/05/22 12:49:00 EDT, [facility], 158, cm, 07/12/22 11:54:00 EDT, Height, 76, kg, 05/07/22 6:04:00 ES... Start Date: 08/05/22 Status: Ordered capsaicin 0.025% topical cream 1 application, Topically, 3 times a day, # 35 Gm, 11 Refills, Maintenance, 07/21/21 12:26:00 EDT, Cream, [facility]/pharmacy #1026, 1 application Topically 3 times a [...] 2 Refills, Maintenance, 08/05/22 12:49:00 EDT, [facility] STORE 98568, 158, cm, 07/12/22 11:54:00 EDT, Height, 76, kg, 05/07/22 6:04:00 EST, Dry Weight Start Date: 08/05/22 Status: Ordered famotidine 40 mg oral tablet 1 tablet = 40 mg, By Mouth, Daily at bedtime, If 40 mg tablet is not available, can be changed to 20 mg tablet 2 tablet at bedtime, # 90 tablet, 3 Refills, Maintenance, 07/12/21 18:53:00 EDT, Tablet,[facility]/pharmacy #1026, Discontinue 30- day supply presc... Start Date: 07/12/21 Stop Date: 07/07/22 Status: Ordered ferrous sulfate 325 mg oral tablet 1 tablet = 325 mg, By Mouth, Daily, May take with food to minimize abdominal discomfort. Do not take with milk. Take preferrably with juice., # 90 tablet, 3 Refills, Maintenance, 09/15/21 8:56:00 EDT, [facility]/pharmacy #1026, 160, cm, 09/15/21 8:15:00 EDT,... Start [...] 0 Refills, Maintenance, 07/08/22 9:47:00 EDT, [facility] STORE 217[facility], 158, cm, 06/16/22 11:27:00 EST, Height, 76, kg, 05/07/22 6:04:00 EST, Dry Weight Start Date: 07/08/22 Status: Ordered ketotifen 0.025% ophthalmic solution 1 drops, Eyes, Both, Every 12 hours, PRN as needed for eye allergy, # 7.5 mL, 11 Refills, Maintenance, 06/25/21 8:34:00 EDT, [facility]/pharmacy #1026, 1 drops Eyes, Both Every 12 [...] tablet, 3 Refills, 03/09/22 11:57:00 EST, [facility]/pharmacy #0838, 1 tablet By Mouth Daily before dinner,PRN:allergies, 160, cm, 03/09/22 10:43:00 EST, Height, 78, kg, 01/14/22 19:37:00 ED... Start Date: 03/09/22 Status: Ordered montelukast 10 mg oral tablet 10 mg, 1, tablet, By Mouth, Daily at bedtime, # 90 tablet, Refills 3, Tot. Refills 3, Maintenance, 03/09/22 11:37:00 EST, Route to Pharmacy Electronically, [facility]/pharmacy #0838, 160, cm, 03/09/22 10:43:00 EST, Height, 78, kg, 01/14/22 19:37:00 EDT, Dry... Start Date: 03/09/22 Stop Date: 03/04/23 Status: Ordered Norvasc 5 mg oral tablet 5 mg, 1, tablet, By Mouth, Daily, # 90 tablet, Refills 3, Tot. 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 Start Date: 03/09/22 Status: Ordered Mwj-slf-vnibi medical-grade oxford diabetic shoes, depth or hightop Tox-bfj-gujgi medical-grade oxford diabetic shoes, depth or hightop, [...] 08/19/22 Stop Date: 09/16/22 Status: Ordered Pen [place], 32 G x 4 mm BD Ultra [...] the same time every day Given by Air Sampler, Dr. Michael Berkowitz, # 60 each, 0 Refills, Maintenance, 07/21/21 11:59:00 EDT, Powder, Partial fill upon patient request if the prescription is for a schedule II opi... Start Date: 07/21/21 Status: Ordered Tresiba FlexTouch 200 units/mL subcutaneous solution See Instructions, INJECT 42 UNITS DAILY AT 9PM E11.9 90 day, # 21 mL, 3 Refills, 03/09/22 17:14:00 EST, [facility]/pharmacy #0838, 160, cm, 03/09/22 10:43:00 EST, Height, [...] 5 Refills, Maintenance, 03/09/22 11:55:00 EST, [facility]/pharmacy #0838, 2 Gm Topically 4 times a day,x14 days, 160, cm, 03/09/22 10:43:00 EST, Height, 78, kg, 01/14/22 19:37:00 EDT, Dry Weight Start Date: 03/09/22 Stop Date: 06/01/22 Status: Ordered [place] Reusable Bed Pad 34 x 36 [place] Reusable Bed Pad 34 x 36 , [...] Osteopenia 18, 19, 20 Confirmed 11/16/12 Active *[id number] Reinsurance Claims Analyst Karine More Confirmed Active Peripheral venous insufficiency [...] lower parathyroidectomy. 06/16/08 SURGEON: Danny Marie M.D. LANDSCAPING SPECIALIST: Naima Bowling M.D. 22b/l submassive PE diagnosed on Dec 20 in [facility] 23TTE 12/22/15 in [facility]: RV dilatation, RVSP 46 24Per ECHO 05/24/17 Trace mitral regurgitation , trace TC regurgitation w no significant valve pathology 25meg colo July 2009 exc for 2 hyperplastic polyps 26Colonoscopy 2004 at [facility] [place] per letter of Dr Amor Dobbins Social History Social History Type Response Smoking Status Never (less than 100 in lifetime) entered on: 10/22/20 Sex Patient Care team information Care Team Personnel Name: Diamond Weiss RN Position: [facility] RN Member Role: Primary Care Nurse Name: Tiara Cavazos RN Position: [facility] OB RN Member Role: Primary Care Nurse Name: Shreya Boss RN Position: [facility] RN Member Role: Primary Care Nurse Name: Jaylin Hernandez RN Position: [facility] Onco RN Member Role: Primary Care Nurse Name: Glen Cota MD Position: [facility] Renal MD Member Role: Lifetime Consulting Physician Address: Address: [address] [place] [address] [facility] [address] Name: Florinda Trinh MD Position: [facility] Primary Care Physician Member Role: PCP Address: Address: [address] [place] [address] Care Team Related Persons Name: JOSE ELIAS TODD Address: [place] [address] Name: JOSE ELIAS KIRKLAND Address: home [address] [place] [id number] Name: LEONIE SCHRADER Address: [place] [address]
--- OUTSIDE RECORDS SUMMARY | 2023-10-23 09:49 | XMS_ITS | Continuity of Care Document ---
Author Organization [facility] Address [address] [place] [id number]- Care Team Providers Care Ssis Developer Name Role Phone Massimo Figueroa Primary Care Physician [phone] Encounter [facility] Date(s): 08/24/22 - 12/22/22 [facility] [address] [place] [address]- Attending Physician: Yolande Rey MD Admitting Physician: Yolande Rey MD Referring Physician: Florinda Trinh MD Allergies, Adverse Reactions, Alerts Substance Reaction Severity Status enalapril hyperkalemia Active penicillin RASH Active morphine itchy Active Bactrim 1 hyperkalemia Active Lidocaine, Topical Active 1Hyperkalemia when used together with lisinopril Immunizations Given and Recorded Vaccine Date Status Refusal Reason [id number] 12y+ bivalent booster vax 05/25/22 Given influenza [...] zoster vaccine, inactivated 09/15/21 Given SARS-CoV-2 mRNA (qihnijr-[id number]-wwsxm) vax 09/15/21 Given SARS-CoV-2 (COVID-19) mRNA BNT-162b2 [...] Maintenance, 05/25/22 12:08:00 EST, ER Tablet, [id number], Discontinue Motrin, 158, cm, 05/25/22 11:12:00... Start [...] Gm, 11 Refills, Maintenance, 07/21/21 12:43:00 EDT, [facility]/pharmacy #1026, 1 applicator Topically 2 times a day, 160, cm, 07/21/21 10:22:00 EDT, Height, 80.6, kg, 06/03/20 19:00:00 EST, Dry Weight Start Date: 07/21/21 Status: Ordered Baqsimi Two Pack 3 mg nasal powder = 3 mg, Naris, Right, Once, Please use for a low blood sugar emergency, may repeat in 15 minutes, #1 each, 3 Refills, Soft Stop, 03/09/22 11:35:00 EST, [facility]/pharmacy #[id number], 160, cm, 03/09/22 10:43:00EST, Height, 78, kg, 01/14/22 19:37:00 EDT, Dry W... Start Date: 03/09/22 Status: Ordered Biotene Moisturizing Mouth oral spray See Instructions, Colt directly into mouth; spray is safe to swallow as needed for dry mouth, # 45mL, 11 Refills, Maintenance, 05/25/22 12:42:00 EST, [facility]/pharmacy #[id number], Partial fill upon patient request if [...] P.M. NEEDED & 1 TAB AT [facility], # 180 tablet, 1 Refills, Maintenance, 08/05/22 12:49:00 EDT, [id number], 158, cm, 07/12/22 11:54:00 EDT, Height, 76, kg, 05/07/22 6:04:00 ES... Start Date: 08/05/22 Status: Ordered capsaicin 0.025% topical cream 1 application, Topically, 3 times a day, # 35 Gm, 11 Refills, Maintenance, 07/21/21 12:26:00 EDT, Cream, [facility]/pharmacy #1026, 1 application Topically 3 times [...] 11 Refills, Maintenance, 12/06/21 15:04:00 EDT, Tablet, [facility], Partial fill upon patient request if the prescription is for a schedule II opioid drug., 160, cm, 11/23/21 14:47:00 ED... Start Date: 12/06/21 Status: Ordered esomeprazole 40 mg oral enteric coated capsule See Instructions, TAKE 1 CAPSULE BY MOUTH DAILY 30 MINUTES BEFORE BREAKFAST, # 30 capsule, 2 Refills, Maintenance, 11/09/22 10:47:00 EDT, [facility] [id number], 158, cm, 07/12/22 11:54:00 EDT, Height, 76, kg, 05/07/22 6:04:00 EST, Dry Weight Start Date: 11/09/22 Status: Ordered famotidine 40 mg oral tablet 1 tablet = 40 mg, By Mouth, Daily at bedtime, If 40 mg tablet is not available, can be changed to 20 mg tablet 2 tablet at bedtime, # 90 tablet, 3 Refills, Maintenance, 07/12/21 18:53:00 EDT, Tablet,[facility]/pharmacy #1026, Discontinue 30- day supply presc... Start Date: 07/12/21 Stop Date: 07/07/22 Status: Ordered ferrous sulfate 325 mg oral tablet 1 tablet = 325 mg, By Mouth, Daily, May take with food to minimize abdominal discomfort. Do not take with milk. Take preferrably with juice., # 90 tablet, 3 Refills, Maintenance, 09/15/21 8:56:00 EDT, [facility]/pharmacy #1026, 160, cm, 09/15/21 8:15:00 EDT,... Start [...] tablet, 0 Refills, Maintenance, 07/08/22 9:47:00 EDT, [facility] 25154, 158, cm, 06/16/22 11:27:00 EST, Height, 76, kg, 05/07/22 6:04:00 EST, Dry Weight Start Date: 07/08/22 Status: Ordered ketotifen 0.025% ophthalmic solution 1 drops, Eyes, Both, Every 12 hours, PRN as needed for eye allergy, # 7.5 mL, 11 Refills, Maintenance, 06/25/21 8:34:00 EDT, [facility]/pharmacy #1026, 1 drops Eyes, Both Every [...] 90 tablet, 3 Refills, 03/09/22 11:57:00 EST, [facility]/pharmacy #[id number], 1 tablet By Mouth Daily before [...] 03/09/22 11:37:00 EST, Route to Pharmacy Electronically, [facility]/pharmacy #[id number], 160, cm, 03/09/22 10:43:00 EST, Height, [...] 03/09/22 11:54:00 EST, [id number] 160, cm, 03/09/22 10:43:00 EST, [...] # 15... Start Date: 11/24/22 Status: Ordered Ggs-hsg-afsmd medical-grade oxford diabetic shoes, depth or hightop Iyj-smi-rvzbv medical-grade oxford diabetic shoes, depth or hightop, [...] DOLOR Start Date: 11/24/22 Status: Ordered Pen [place], 32 G x 4 mm BD Ultra [...] Date: 03/09/22 Stop Date: 06/01/22 Status: Ordered [place] Reusable Bed Pad 34 x 36 [place] Reusable Bed Pad 34 x 36 , [...] Osteopenia 18, 19, 20 Confirmed 11/16/12 Active *[id number] Embroidery Operator Karine More Confirmed Active Peripheral venous [...] 11left mild sensorineural hearing loss by [facility] Hearing Evaluation on 12/29/11 [...] lower parathyroidectomy. 06/16/08 SURGEON: Danny Marie M.D. PHYSICS DEPARTMENT CHAIR: Naima Bowling M.D. 22b/l submassive PE diagnosed on Dec 20 in [facility] 23TTE 12/22/15 in [facility]: RV dilatation, RVSP 46 24Per ECHO 05/24/17 Trace mitral regurgitation , trace TC regurgitation w no significant valve pathology 25meg colo July 2009 exc for 2 hyperplastic polyps 26Colonoscopy 2004 at [facility] [place] per letter of Dr Amor Dobbins Social History Social History Type Response Smoking Status Never (less than 100 in lifetime) entered on: 10/22/20 Sex Patient Care team information Care Team Personnel Name: Massimo Figueroa Position: [facility] Outreach Member Role: PCP Address: Address: [address] [place] [address] Name: Diamond Weiss RN Position: [facility] RN Member Role: Primary Care Nurse Name: Tiara Cavazos RN Position: [facility] OB RN Member Role: Primary Care Nurse Name: Shreya Boss RN Position: [facility] RN Member Role: Primary Care Nurse Name: Virginia Benson RN Position: [facility] SN RN Member Role: Primary Care Nurse Name: Jaylin Hernandez RN Position: [facility] Onco RN Member Role: Primary Care Nurse Name: Glen Cota MD Position: S Renal MD Member Role: Lifetime Consulting Physician Address: Address: [address] [place] [address] [facility] [address]- Care Team Related Persons Name: JOSE ELIAS TODD Address: [place] [address] Name: JOSE ELIAS KIRKLAND Address: home [address] [place] [address] Name: LEONIE SCHRADER Address: [place] [address]
--- OUTSIDE RECORDS SUMMARY | 2023-10-23 09:49 | XMS_ITS | Continuity of Care Document ---
Author Organization [facility] ter Address [address] [place] [address]- Care Team Providers Care Vp Publisher Development Name Role Phone Gayathri GARZA, Florinda Primary Care Physician Encounter [facility] Date(s): 05/30/19 - 05/30/19 [facility] [address] [place] [address]- [facility] Attending Physician: Florinda Trinh MD Allergies, Adverse [...] or fever, (not to exceed 2000 mg/day) syrian, # 100 tablet, 11 Refills, Maintenance, 01/16/19 [...] Status: Ordered BD UF SHANNAN PEN NEEDLE [id number] BD UF SHANNAN PEN NEEDLE [id number], 0 Refills, Maintenance, 07/26/18 13:34:55 EDT Start [...] Refills, Maintenance, 03/27/19 9:10:00 EST, EC Capsule, [facility], 159, cm, 03/20/19 14:59:00 EST, Height, 88.3, kg, 12/13/18 10:17:00 EDT, Dry Weight Start Date: 03/27/19 Status: Ordered docusate sodium 100 mg oral tablet 1 tablet = 100 mg, By Mouth, 2 times a day, # 60 tablet, 11 Refills, Maintenance, 05/20/19 12:31:00EST, [facility], 159, cm, 05/20/19 12:19:00 EST, Height, 88.1, kg, 04/25/19 16:02:00 EST, Dry Weight Start Date: 05/20/19 Status: Ordered enalapril 10 mg oral tablet 10 mg, 1, tablet, By Mouth, Daily, 90 days, # 90 tablet, Refills 3, Tot. Refills 3, Maintenance, 09/19/18 15:15:30 EDT, Route to Pharmacy Electronically, [id number], [facility] Start Date: 09/19/18 Status: Ordered famotidine 40 mg oral tablet 1 tablet = 40 mg, By Mouth, Daily at bedtime, If 40 mg tablet is not available, can change to 20 mgtablet 2 tablet at bedtime, # 30 tablet, 5 Refills, Maintenance, 04/17/19 9:17:00 EST, Tablet, [facility], 159, cm, 04/17/19 8:24:0... Start Date: [...] 01/16/19 8:53:23 EDT, Route to Pharmacy Electronically, [id number], [facility] [place]... 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 Start Date: 05/10/19 Stop Date: 06/07/19 Status: Ordered oxyCODONE 5 mg oral tablet 5 mg, 1, tablet, By Mouth, Every 4 hours, for 28 days, dispense not earlier than 06/07/19, # 137 tablet, Refills 0, Tot. Refills 0, Acute 07/05/19 12:47:00 EDT, 06/07/19 12:47:00 EST, Route to Pharmacy Electronically, [facility] [place] [place]... Start Date: 06/07/19 Stop Date: 07/05/19 Status: Ordered oxyCODONE 5 mg oral tablet 5 mg, 1, tablet, By Mouth, Every 4 hours, for 28 days, dispense not earlier than 07/05/19, # 137 tablet, Refills 0, Tot. Refills 0, Acute 08/02/19 12:47:00 EDT, 07/05/19 12:47:00 EDT, Route to Pharmacy Electronically, [facility] [place] [place]... Start Date: 07/05/19 Stop Date: 08/02/19 Status: Ordered Pen [place], 32 G x 4 mm BD Ultra [...] 05/20/19 12:31:00 EST, Route to Pharmacy Electronically, [facility] [place] Tablet, 159, cm, 05/20/19 12:19:00 ES... Start [...] Tot. Refills 5, Maintenance, 05/22/19 20:38:00 EST, [facility] Electron[facility], [facility]... Start Date: 05/22/19 [...] mL, 1 Refills, Maintenance, 05/01/19 15:57:00 EST, [facility]/pharmacy #[id number], 159, cm, 04/25/19 16:02:00 EST, Height, 88.1, kg, 04/25/19 16:02:00 EST, DryWeight Start Date: 05/01/19 Status: Ordered Urinary incontinence pads Urinary incontinence pads, See Instructions, # 90 each, Refills 11, Tot. Refills 11, Maintenance, Ultra absorbent, large ( no wings) Wear daily during day and night. Change 3 times a day prn . Dx stress urinary incontinence ICD10 N39.3, . Start Date: 10/25/17 Status: Ordered Ventolin HFA [...] 15:13:28 EDT Start Date: 09/19/18 Status: Ordered [place] Reusable Bed Pad 34 x 36 [place] Reusable Bed Pad 34 x 36 , [...] abnormal(Confirmed) 9 12/29/11 Active Hepatitis C(Confirmed) Active half-way current use of opi ate analgesic-LBP(Confirmed) 10 Active Hypercholesterolemia(Confirmed) Active Hypertension(Confirmed) Active Hysterectomy(Confirmed) Active Incontinence of urine(Confirmed) Active Iron deficiency anemia(Confirmed) Active Left ventricular hypertrophy(Confirmed) 11 Active Memory impairment(Confirmed) Active Mitral regurgitation(Confirmed) 12 05/24/17 Active Nephrolithiasis(Confirmed) 13, 14, 15 06/11/02 Active Obesity(Confirmed) Active JENNIFER (obstructive sleep apnea)(Confirmed) Active Osteopenia(Confirmed) 16, 17 11/16/12 Active *[id number]-Care Partn david [place](Confirmed) Active Peripheral venous insufficiency(Confirmed) [...] diagnosed on Dec 20 [facility] 5insulin dependent 6Per ECHO 05/24/1718 Grade I, mild diastolic dysfunction with impaired LV relaxation, which may be normal for the patient's age. 7EGD on 06/24/16 by GI, Dr Damien caballero gastritis and esophageal varices grade 1 8EGD on 06/24/16 by GI, Dr Damien caballero gastritis and esophageal varices grade 1 9left mild sensorineural hearing loss by [facility] Hearing Evaluation on 12/29/11 10Narcotic [...] lower parathyroidectomy. 06/16/08 SURGEON: Danny Marie M.D. OPENSTACK CLOUD CONSULTING ARCHITECT: Naima Bowling M.D. 19b/l submassive PE diagnosed on Dec 20 in [facility] 20TTE 12/22/15 in [facility]: RV dilatation, RVSP 46 21Per ECHO 05/24/17 Trace mitral regurgitation , trace TC regurgitation w no significant valve pathology meg colo July 2009 exc for 2 hyperplastic polyps 23Colonoscopy 2004 at [facility] [place] per letter of Dr Amor Dobbins Social History Social History Type Response Smoking Status Never (less than 100 in lifetime) entered on: 04/17/19 Sex
--- OUTSIDE RECORDS SUMMARY | 2023-10-23 09:49 | XMS_ITS | Continuity of Care Document ---
Author Organization [facility] Address [address] [place] [id number]- Care Team Providers Care Chronograph Operator Name Role Phone Florinda Trinh MD Primary Care Physician Encounter [facility] Date(s): 04/12/22 - 05/12/22 [facility] [address] [place] [address]- Attending Physician: Yolande Rey MD Admitting Physician: Yolande Rey MD Referring Physician: Florinda Trinh MD Allergies, Adverse Reactions, Alerts Substance Reaction Severity Status penicillin RASH Active morphine itchy Active Lidocaine, Topical Active Bactrim 1 hyperkalemia Active 1Hyperkalemia when used together with lisinopril Immunizations Given and Recorded Vaccine Date Status Refusal Reason zoster vaccine, inactivated 12/08/21 Given zoster vaccine, inactivated 09/15/21 Given SARS-CoV-2 mRNA (hniilkg-jwnf-fngfj) vax 09/15/21 Given SARS-CoV-2 (COVID-19) mRNA BNT-162b2 [...] needed for anxiety and 1tab at HS fblvyd-hgs-kmaha, # 60 tablet, 11 Refills, Maintenance, 09/15/21 [...] 11 Refills, Maintenance, 12/06/21 15:04:00 EDT, Tablet, [facility], Partial fill upon patient request [...] to Pharmacy Electronically, [facility]/pharmacy #[id number], Partial fill upon patient [...] 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 Start Date: 03/09/22 Status: Ordered Qey-opi-hafve medical-grade oxford diabetic shoes, depth or hightop Ixs-beq-wqfmx medical-grade oxford diabetic shoes, depth or hightop, [...] 05/04/22 Stop Date: 06/01/22 Status: Ordered Pen [place], 32 G x 4 mm BD Ultra [...] 527 Gm,11 Refills, Maintenance, 03/09/22 11:39:00 EST, [facility]/pharmacy #[id number], 17- 34 Gm By [...] the same time every day Given by [facility], Dr. Michael Berkowitz, # 60 each, 0 Refills, Maintenance, 07/21/21 11:59:00 EDT, Powder, Partial fill upon patient request if the prescription is for a schedule II opi... Start Date: 07/21/21 Status: Ordered Tresiba FlexTouch 200 units/mL subcutaneous solution See Instructions, INJECT 42 UNITS DAILY AT 9PM E11.9 90 day, # 21 mL, 3 Refills, 03/09/22 17:14:00 EST, [facility]/pharmacy #[id number], 160, cm, 03/09/22 10:43:00 EST, Height, 78, kg, 01/14/22 19:37:00 EDT, Dry Weight Start Date: 03/09/22 Status: Ordered Ventolin HFA 108 mcg/inh inhalation aerosol with adapter 2 puffs, Inhalation, 4 times a day, PRN Wheezing/Shortness of Breath, dispense when patient requestit, # 18 Gm, 5 Refills, Maintenance, 11/09/20 12:36:00 EDT, [facility]/pharmacy #[id number], 160, cm, 10/22/20 9:15:00 [...] Date: 03/09/22 Stop Date: 06/01/22 Status: Ordered [place] Reusable Bed Pad 34 x 36 Bridger Reusable Bed Pad 34 x 36 , [...] Confirmed 12/29/11 Active Hepatitis C Confirmed 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 06/16/08 SURGEON: Danny Marie M.D. CHART PICKER: Naima Bowling M.D. 22b/l submassive PE diagnosed on Dec 20 in [facility] 23TTE 12/22/15 in [facility]: RV dilatation, RVSP 46 24Per ECHO 05/24/17 Trace mitral regurgitation , trace TC regurgitation w no significant valve pathology 25meg colo July 2009 exc for 2 hyperplastic polyps 26Colonoscopy 2004 at [facility] [place] per letter of Dr Amor Dobbins Social History Social History Type Response Smoking Status Never (less than 100 in lifetime) entered on: 10/22/20 Sex Patient Care team information Care Team Personnel Name: Diamond Weiss RN Position: [facility] RN Member Role: Primary Care Nurse Name: Tiara Cavazos RN Position: [facility] OB RN Member Role: Primary Care Nurse Name: Shreya Boss RN Position: S RN Member Role: Primary Care Nurse Name: Virginia Benson RN Position: S RN Member Role: Primary Care Nurse Name: Jaylin Hernandez RN Position: [facility] Onco RN Member Role: Primary Care Nurse Name: Glen Cota MD Position: [facility] Renal MD Member Role: Lifetime Consulting Physician Address: Address: [address] [place] [address] [facility] [address] Name: Florinda Trinh MD Position: [facility] Primary Care Physician Member Role: PCP Address: Address: [address] [place] [address] Care Team Related Persons Name: JOSE ELIAS TODD Address: [place] [address] Name: JOSE ELIAS KIRKLAND Address: home [address] [place] [id number] Name: LEONIE SCHRADER Address: [place] [address]
--- OUTSIDE RECORDS SUMMARY | 2023-10-23 09:49 | XMS_ITS | Continuity of Care Document ---
Author Organization [facility] Address [address] [place] [address]- Care Team Providers Care Polish Compounder Name Role Phone Gayathri GARZA, Florinda Primary Care Physician [place] [facility] [place](s): 07/17/20 - 08/16/20 [facility] [address] [place] [address]- Allergies, Adverse Reactions, Alerts Substance Reaction Severity [...] or fever, (not to exceed 2000 mg/day) frisian, # 100 tablet, 11 Refills, Maintenance, 08/14/20 [...] 07/16/20 15:26:00 EDT, Route to Pharmacy Electronically, [facility]/pharmacy #[id number], 160, cm, 06/12/20 9:01... Start Date: 07/16/20 Status: Ordered ammonium lactate 12% topical cream 1 applicator, Topically, 2 times a day, # 280 Gm, 11 Refills, Maintenance, 01/27/20 19:13:00 EDT, [facility]/pharmacy #1026, 1 [...] 3 Refills, Soft Stop, 06/26/20 7:30:00 EDT, [facility]/pharmacy #1026, Partial fill upon patient request if the prescription is for a schedule II op... Start Date: 06/26/20 Status: Ordered calcium (as citrate)-vitamin D 315 mg-250 intl units oral tablet 2 tablet, By Mouth, 2 times a day, for 30 days, calcium citrate, # 120 tablet, 11 Refills, Hard Stop 01/21/21 19:13:00 EDT, 01/27/20 19:13:00 EDT, Tablet, [facility]/pharmacy #1026, 167, cm, 01/13/20 8:54:00 EDT, Height, 78.8, kg, 01/01/20 3:41:00 EDT, Dry... Start Date: 01/27/20 Stop Date: 01/21/21 Status: Ordered capsaicin 0.025% topical cream 1 application, Topically, 3 times a day, # 90 Gm, 11 Refills, Maintenance, 02/10/20 11:22:00 EST, Cream, [facility]/pharmacy #1026, 1 [...] Acute 08/21/20 10:16:00 EDT, 08/14/20 10:16:00 EDT, [facility]/pharmacy #1026, Partial fill up... Start Date: 08/14/20 [...] Refills, Maintenance, 01/27/20 19:13:00 EDT, EC Capsule, [facility]/pharmacy #1026, 167, cm, 01/13/20 8:54:00 EDT, Height, 78.8, kg, 01/01/20 3:41:00 EDT, Dry Weight Start Date: 01/27/20 Status: Ordered Eliquis 5 mg oral tablet 1 tablet = 5 mg, By Mouth, 2 times a day, # 60 tablet, 11 Refills, Maintenance, 02/10/20 11:22:00 EST, Tablet, [facility]/pharmacy #1026, 167, cm, 01/13/20 [...] tablet, 3 Refills, Maintenance, 06/30/20 14:55:00 EDT, Tablet,[facility]/pharmacy #1026, Discontinue 30- day supply presc... Start Date: 06/30/20 Stop Date: 06/25/21 Status: Ordered ferrous sulfate 325 mg oral tablet 1 tablet = 325 mg, By Mouth, Daily, May take with food to minimize abdominal discomfort. Do not take with milk. Take preferrably with juice., # 90 tablet, 2 Refills, Maintenance, 01/22/20 9:38:00 EDT, [facility]/pharmacy #1026, 167, cm, 01/13/20 [...] mL, 11 Refills, Maintenance, 01/27/20 19:13:00 EDT, [facility]/pharmacy #1026, 1 [...] 06/24/20 9:08:00 EDT, Route to Pharmacy Electronically, [facility]/pharmacy #1026, 160, cm, 06/12/20 9:01:00 EST, Height, 80... Start Date: 06/24/20 Status: Ordered NovoLOG FlexPen 100 units/mL subcutaneous solution See Instructions, Inject up to 26 untis via Insulin sliding scale 3x a day w/meals,MAX daily dose 78 units, E11.65, # 45 mL, 6 Refills, Maintenance, 01/21/20 14:30:00 EDT, [facility]/pharmacy #1026, 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 Start Date: 01/21/20 Status: Ordered Ixf-llk-jvadw medical-grade oxford diabetic shoes, depth or hightop Aoh-piu-sesde medical-grade oxford diabetic shoes, depth or hightop, [...] 08/07/20 10:25:00 EDT, Route to Pharmacy Electronically, [facility]/pharmacy #1026, Part... Start Date: 08/07/20 Stop Date: 09/04/20 Status: Ordered oxyCODONE 5 mg oral tablet 5 mg, 1, tablet, By Mouth, Every 4 hours, for 28 days, PRN pain dispense not earlier than09/04/20, #168 tablet, Refills 0, Tot. Refills 0, Acute 10/02/20 10:25:00 EDT, 09/04/20 10:25:00 EDT, Route toPharmacy Electronically, [facility]/pharmacy #1026, Parti... Start Date: 09/04/20 Stop Date: 10/02/20 Status: Ordered oxyCODONE 5 mg oral tablet 5 mg, 1, tablet, By Mouth, Every 4 hours, for 28 days, PRN pain dispense not earlier than 10/02/20, # 168 tablet, Refills 0, Tot. Refills 0, Acute 10/30/20 10:25:00 EDT, 10/02/20 10:25:00 EDT, Route to Pharmacy Electronically, [facility]/pharmacy #1026, Part... Start Date: 10/02/20 Stop Date: 10/30/20 Status: Ordered Pen [place], 32 G x 4 mm BD Ultra [...] 527 Gm,11 Refills, Maintenance, 01/27/20 19:13:00 EDT, [facility]/pharmacy #1026, 17- 34 Gm [...] 02/10/20 11:22:00 EST, Route to Pharmacy Electronically, [facility]/pharmacy #1026 Tablet, 167, cm, [...] 05/01/20 9:28:00 EST, Route to Pharmacy Electronically, [facility]/pharmacy #1026, 167,... Start Date: [...] 08/14/20 10:39:00 EDT, Route to Pharmacy Electronically, [facility]/pharmacy #1026,Partial fill upon patient request if the prescrip... Start Date: 08/14/20 Stop Date: 08/28/20 Status: Ordered Trelegy Ellipta inhalation powder 1 puffs, Inhalation, Daily, at the same time every day given by roll plugger machine operator , Dr Berkowitz, # 60 [...] Date: 06/12/20 Stop Date: 09/04/20 Status: Ordered [place] Reusable Bed Pad 34 x 36 [place] Reusable Bed Pad 34 x 36 , [...] apnea)(Confirmed) Active Osteopenia(Confirmed) 18, 19 11/16/12 Active *[id number] [facility](Confirmed) Active Peripheral venous insufficiency(Confirmed) 10/31/11 Active [...] 11left mild sensorineural hearing loss by [facility] Hearing Evaluation on 12/29/11 12Narcotic [...] lower parathyroidectomy. 06/16/08 SURGEON: Danny Marie M.D. MEMBERSHIP COORDINATOR: Naima Bowling M.D. 21b/l submassive PE diagnosed on Dec 20 in [facility] 22TTE 12/22/15 in [facility]: RV dilatation, RVSP 46 23Per ECHO 05/24/17 Trace mitral regurgitation , trace TC regurgitation w no significant valve pathology 24meg colo July 2009 exc for 2 hyperplastic polyps 25Colonoscopy 2004 at [facility] [place] per letter of Dr Amor Dobbins Social History Social History Type Response Smoking Status Never (less than 100 in lifetime) entered on: 06/12/20 Sex
--- OUTSIDE RECORDS SUMMARY | 2023-10-23 09:49 | XMS_ITS | Continuity of Care Document ---
Author Organization [facility] Address [address] [place] [address]- Care Team Providers Care Supervisor Frame Assembly Name Role Phone Gayathri GARZA, Florinda Primary Care Physician [place] [facility] [place] 07/24/20 [facility] [address] [place] [address]- Allergies, Adverse Reactions, Alerts Substance Reaction Severity [...] or fever, (not to exceed 2000 mg/day) american, # 100 tablet, 5 Refills, Maintenance, 01/22/20 [...] 07/16/20 15:26:00 EDT, Route to Pharmacy Electronically, [facility]/pharmacy #1026, 160, cm, 06/12/20 9:01... Start Date: 07/16/20 Status: Ordered ammonium lactate 12% topical cream 1 applicator, Topically, 2 times a day, # 280 Gm, 11 Refills, Maintenance, 01/27/20 19:13:00 EDT, [facility]/pharmacy #1026, 1 applicator Topically 2 times a day, 167, cm, 01/13/20 8:54:00 EDT, Height, 78.8, kg, 01/01/20 3:41:00 EDT, Dry Weight Start Date: 01/27/20 Status: Ordered Baqsimi Two Pack 3 mg nasal powder = 3 mg, Naris, Right, Once, Please use for a low blood sugar emergency, may repeat in 15 minutes, #2 each, 3 Refills, Soft Stop, 06/26/20 7:30:00 EDT, [facility]/pharmacy #1026, Partial fill upon patient request if the prescription is for a schedule II op... Start Date: 06/26/20 Status: Ordered calcium (as citrate)-vitamin D 315 mg-250 intl units oral tablet 2 tablet, By Mouth, 2 times a day, for 30 days, calcium citrate, # 120 tablet, 11 Refills, Hard Stop 01/21/21 19:13:00 EDT, 01/27/20 19:13:00 EDT, Tablet, [facility]/pharmacy #1026, 167, cm, 01/13/20 8:54:00 EDT, Height, 78.8, kg, 01/01/20 3:41:00 EDT, Dry... Start Date: 01/27/20 Stop Date: 01/21/21 Status: Ordered capsaicin 0.025% topical cream 1 application, Topically, 3 times a day, # 90 Gm, 11 Refills, Maintenance, 02/10/20 11:22:00 EST, Cream, [facility]/pharmacy #1026, 1 application Topically 3 times [...] Refills, Maintenance, 01/27/20 19:13:00 EDT, EC Capsule, [facility]/pharmacy #1026, 167, cm, 01/13/20 8:54:00 EDT, Height, 78.8, kg, 01/01/20 3:41:00 EDT, Dry Weight Start Date: 01/27/20 Status: Ordered Eliquis 5 mg oral tablet 1 tablet = 5 mg, By Mouth, 2 times a day, # 60 tablet, 11 Refills, Maintenance, 02/10/20 11:22:00 EST, Tablet, [facility]/pharmacy #1026, 167, cm, 01/13/20 8:54:00 EDT, [...] tablet, 2 Refills, Maintenance, 01/22/20 9:38:00 EDT, [facility]/pharmacy #1026, 167, cm, 01/13/20 8:54:00 EDT,... [...] mL, 11 Refills, Maintenance, 01/27/20 19:13:00 EDT, [facility]/pharmacy #1026, 1 drops Eyes, Both Every [...] 06/24/20 9:08:00 EDT, Route to Pharmacy Electronically, [facility]/pharmacy #1026, 160, cm, 06/12/20 9:01:00 EST, Height, 80... Start Date: 06/24/20 Status: Ordered NovoLOG FlexPen 100 units/mL subcutaneous solution See Instructions, Inject up to 26 untis via Insulin sliding scale 3x a day w/meals,MAX daily dose 78 units, E11.65, # 45 mL, 6 Refills, Maintenance, 01/21/20 14:30:00 EDT, [facility]/pharmacy #1026, 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 Start Date: 01/21/20 Status: Ordered Ryq-ytv-dacmz medical-grade oxford diabetic shoes, depth or hightop Swc-imz-cpijz medical-grade oxford diabetic shoes, depth or hightop, [...] EDT, 07/10/20 10:25:00 EDT, Route toPharmacy Electronically, [facility]/pharmacy #1026, Parti... Start Date: 07/10/20 Stop Date: 08/07/20 Status: Ordered oxyCODONE 5 mg oral tablet 5 mg, 1, tablet, By Mouth, Every 4 hours, for 28 days, PRN pain dispense not earlier than 08/07/20, # 168 tablet, Refills 0, Tot. Refills 0, Acute 09/04/20 10:25:00 EDT, 08/07/20 10:25:00 EDT, Route to Pharmacy Electronically, [facility]/pharmacy #1026, Part... Start Date: 08/07/20 Stop Date: 09/04/20 Status: Ordered oxyCODONE 5 mg oral tablet 5 mg, 1, tablet, By Mouth, Every 4 hours, for 28 days, PRN pain dispense not earlier than09/04/20, #168 tablet, Refills 0, Tot. Refills 0, Acute 10/02/20 10:25:00 EDT, 09/04/20 10:25:00 EDT, Route toPharmacy Electronically, [facility]/pharmacy #1026, Parti... Start Date: 09/04/20 Stop Date: 10/02/20 Status: Ordered oxyCODONE 5 mg oral tablet 5 mg, 1, tablet, By Mouth, Every 4 hours, for 28 days, PRN pain dispense not earlier than 10/02/20, # 168 tablet, Refills 0, Tot. Refills 0, Acute 10/30/20 10:25:00 EDT, 10/02/20 10:25:00 EDT, Route to Pharmacy Electronically, [facility]/pharmacy #1026, Part... Start Date: 10/02/20 Stop Date: 10/30/20 Status: Ordered Pen [place], 32 G x 4 mm BD Ultra [...] 527 Gm,11 Refills, Maintenance, 01/27/20 19:13:00 EDT, [facility]/pharmacy #1026, 17- 34 Gm By Mouth [...] 02/10/20 11:22:00 EST, Route to Pharmacy Electronically, [facility]/pharmacy #1026 Tablet, 167, cm, 01/13/20 8:5... [...] 05/01/20 9:28:00 EST, Route to Pharmacy Electronically, [facility]/pharmacy #1026, 167,... Start Date: 05/01/20 Status: Ordered TENS electrode pads TENS electrode pads, See Instructions, # 1 box, Refills 5, Tot. 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 06/16/08 SURGEON: Danny Marie M.D. MINI LAB OPERATOR: Naima Bowling M.D. 21b/l submassive PE diagnosed on Dec 20 in [facility] 22TTE 12/22/15 in [facility]: RV dilatation, RVSP 46 23Per ECHO 05/24/17 Trace mitral regurgitation , trace TC regurgitation w no significant valve pathology 24meg colo July 2009 exc for 2 hyperplastic polyps 25Colonoscopy 2004 at [facility] [place] per letter of Dr Amor Dobbins Social History Social History Type Response Smoking Status Never (less than 100 in lifetime) entered on: 06/12/20 Sex
--- OUTSIDE RECORDS SUMMARY | 2023-10-23 09:49 | XMS_ITS | Continuity of Care Document ---
Author Organization [facility] Address [address] [place] [address]- Care Team Providers Care Broadcast Journalist Name Role Phone Gayathri GARZA, Florinda Primary Care Physician Encounter [facility] [place] Date(s): 08/13/21 - 09/12/[address] [address]- Attending Physician: Yaya Patino Admitting Physician: Yaya [...] or fever, (not to exceed 2000 mg/day) lao, # 100 tablet, 11 Refills, Maintenance, 04/28/21 13:24:00 EST, [facility]/pharmacy #1026, 160, cm, 04/28/21 9:50:00 EST, [...] Gm, 11 Refills, Maintenance, 07/21/21 12:43:00 EDT, [facility]/pharmacy #1026, 1 applicator Topically [...] Biotene Moisturizing Mouth oral spray See Instructions, [place] directly into mouth; spray is safe to swallow as needed for dry mouth, # 45mL, 11 Refills, Maintenance, 07/21/21 12:43:00 EDT, [facility]/pharmacy #1026, [place] directly into mouth; spray is safe to [...] 11 Refills, Maintenance, 07/21/21 12:26:00 EDT, Cream, [facility]/pharmacy #1026, 1 application Topically [...] 11 Refills, Maintenance, 04/21/21 18:12:00 EST, Tablet, [facility]/pharmacy #1026, 160, cm, 03/03/21 11:23:00 EST, [...] tablet, 3 Refills, Maintenance, 07/12/21 18:53:00 EDT, Tablet,[facility]/pharmacy #1026, Discontinue 30- day [...] 04/28/21 14:34:00 EST, Route to Pharmacy Electronically, [facility]/pharmacy #1026, Can use with HCTZ, 160, [...] capsule, 3 Refills, Maintenance, 10/22/20 10:35:00 EDT, [facility]/pharmacy #1026, 160, cm, 10/22/20 9:15:00 EDT, Height, 80.6, kg, 06/03/20 19:00:00 EST, Dry Weight Start Date: 10/22/20 Stop Date: 10/17/21 Status: Ordered ketotifen 0.025% ophthalmic solution 1 drops, Eyes, Both, Every 12 hours, PRN as needed for eye allergy, # 7.5 mL, 11 Refills, Maintenance, 06/25/21 8:34:00 EDT, [facility]/pharmacy #1026, 1 drops Eyes, [...] DAILY, E11.65, # 90 tablet, 2 Refills, [id number], 160, cm, 06/21/21 9:57:00 EDT, Height, 80.6, [...] 78.8, kg,... Start Date: 01/21/20 Status: Ordered Cte-fad-ikvcu medical-grade oxford diabetic shoes, depth or hightop Vni-pgv-gzkll medical-grade oxford diabetic shoes, depth or hightop, [...] 10/04/21 Stop Date: 11/01/21 Status: Ordered Pen [place], 32 G x 4 mm BD Ultra [...] 04/28/21 14:02:00 EST, Route to Pharmacy Electronically, [facility]/pharmacy #1026, 160... Start Date: 04/28/21 Stop [...] 527 Gm,11 Refills, Maintenance, 01/27/20 19:13:00 EDT, [facility]/pharmacy #1026, 17- 34 Gm [...] 11 Refills, Maintenance, 04/28/21 14:03:00 EST, Tablet, [facility]/pharmacy #1026, 160, cm, 04/28/21 9:50:00 EST, Height, 80.6, kg, 06/03/20 19:00:00 EST, Dry Weight Start Date: 04/28/21 Status: Ordered Senna-Time 8.6 mg oral tablet 2 tablet, By Mouth, 2 times a day, PRN NEEDED FOR CONSTIPATION,INSTR, DISCONTINUE DOCUSATE, # 60tablet, 11 Refills, [facility], 160, cm, 03/03/21 11:23:00 EST, Height, 80.6, [...] 02/22/21 17:50:00 EST, Route to Pharmacy Electronically, [facility]/pharmacy #1026, 1... Start Date: 02/22/21 Status: [...] 02/15/21 11:39:00 EST, Route to Pharmacy Electronically, [facility]/pharmacy #1026,Partial fill upon patient request if the prescrip... Start Date: 02/15/21 Stop Date: 03/29/21 Status: Ordered Trelegy Ellipta inhalation powder 1 puffs, Inhalation, Daily, at the same time every day Given by [employer], Dr. Michael Berkowitz, # 60 each, 0 Refills, Maintenance, 07/21/21 11:59:00 EDT, Powder, Partial fill upon patient request if the prescription is for a schedule II opi... Start Date: 07/21/21 Status: Ordered Tresiba FlexTouch 200 units/mL subcutaneous solution See Instructions, INJECT 86 UNITS DAILY AT 9PM, # 45 Unknown, 6 Refills, [facility], 160, cm, 06/21/21 9:57:00 EDT, Height, 80.6, [...] Date: 02/15/21 Stop Date: 05/10/21 Status: Ordered [place] Reusable Bed Pad 34 x 36 [place] Reusable Bed Pad 34 x 36 , [...] 11 Refills, Maintenance, 10/22/20 10:19:00 EDT, Tablet, [facility]/pharmacy #1026, Partial fill upon patient request if the prescription is for a schedule II opioid drug., 1 tablet B... Start Date: 10/22/20 Status: Ordered Zofran 4 mg oral tablet 1 tablet = 4 mg, By Mouth, Every 8 hours, PRN Nausea & Vomiting, # 15 tablet, 1 Refills, Maintenance, 06/04/21 16:16:00 EST, Tablet, [facility]/pharmacy #1026, Partial fill upon [...] apnea)(Confirmed) Active Osteopenia(Confirmed) 18, 19 11/16/12 Active *[id number] Care Partn igor More(Confirmed) Active Peripheral venous [...] 1 11left mild sensorineural hearing loss by [facility] Hearing Evaluation on 12/29/11 12Narcotic contract [...] lower parathyroidectomy. 06/16/08 SURGEON: Danny Marie M.D. ELECTRIC MOTOR REPAIRER: Naima Bowling M.D. 21b/l submassive PE diagnosed on Dec 20 in [facility] 22TTE 12/22/15 in [facility]: RV dilatation, RVSP 46 23Per ECHO 05/24/17 Trace mitral regurgitation , trace TC regurgitation w no significant valve pathology 24meg colo July 2009 exc for 2 hyperplastic polyps 25Colonoscopy 2004 at [facility] [place] per letter of Dr Amor Dobbins Social History Social History Type Response Smoking Status Never (less than 100 in lifetime) entered on: 10/22/20 Sex
--- OUTSIDE RECORDS SUMMARY | 2023-10-23 09:49 | XMS_ITS | Continuity of Care Document ---
Author Organization [facility] Address [address] [place] [address]- Care Team Providers Care German Teacher Name Role Phone Gayathri GARZA, Florinda Primary Care Physician [place] [facility] [place] 09[place]21 [facility] [address], [place] [address] Attending Physician: Yaya Patino Admitting [...] Gi zeny influenza virus vaccine, inactivated 5 10/25/10 Gi zeny influenza virus vaccine, inactivated 6 [...] (Td) 14 11/10/10 Given 1Result Comment: Masood URVALCABA RN 2Result Comment: Given by Leonie Garcia [...] tablet, 11 Refills, Maintenance, 04/28/21 13:24:00 EST, [facility]/pharmacy #1026, 160, cm, 04/28/21 9:50:00 EST, [...] Biotene Moisturizing Mouth oral spray See Instructions, [place] directly into mouth; spray is safe to swallow as needed for dry mouth, # 45mL, 11 Refills, Maintenance, 07/21/21 12:43:00 EDT, [facility], [place] directly into mouth; spray is safe to [...] capsule, 3 Refills, Maintenance, 10/22/20 10:35:00 EDT, [facility]/pharmacy #1026, 160, cm, 10/22/20 [...] DAILY, E11.65, # 90 tablet, 2 Refills, [facility], 160, cm, 06/21/21 9:57:00 EDT, Height, 80.6, [...] mL, 6 Refills, Maintenance, 01/21/20 14:30:00 EDT, [facility]/pharmacy #1026, 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 Start Date: 01/21/20 Status: Ordered Tmg-ahl-vlooq medical-grade oxford diabetic shoes, depth or hightop Nes-vya-rnlnm medical-grade oxford diabetic shoes, depth or hightop, [...] 10/04/21 Stop Date: 11/01/21 Status: Ordered Pen [place], 32 G x 4 mm BD Ultra [...] 04/28/21 14:02:00 EST, Route to Pharmacy Electronically, [facility]/pharmacy #1026, 160... Start Date: 04/28/21 Stop [...] 11 Refills, Maintenance, 04/28/21 14:03:00 EST, Tablet, [facility]/pharmacy #1026, 160, cm, 04/28/21 9:50:00 EST, Height, 80.6, kg, 06/03/20 19:00:00 EST, Dry Weight Start Date: 04/28/21 Status: Ordered Senna-Time 8.6 mg oral tablet 2 tablet, By Mouth, 2 times a day, PRN NEEDED FOR CONSTIPATION,INSTR, DISCONTINUE DOCUSATE, # 60tablet, 11 Refills, [facility] 26[facility], 160, cm, 03/03/21 11:23:00 EST, Height, 80.6, [...] 02/22/21 17:50:00 EST, Route to Pharmacy Electronically, [facility]/pharmacy #1026, 1... Start Date: 02/22/21 Status: [...] 02/15/21 11:39:00 EST, Route to Pharmacy Electronically, [facility]/pharmacy #1026,Partial fill upon patient request if the prescrip... Start Date: 02/15/21 Stop Date: 03/29/21 Status: Ordered Trelegy Ellipta inhalation powder 1 puffs, Inhalation, Daily, at the same time every day Given by Account Advisor, Dr. Michael Berkowitz, # 60 each, 0 Refills, Maintenance, 07/21/21 11:59:00 EDT, Powder, Partial fill upon patient request if the prescription is for a schedule II opi... Start Date: 07/21/21 Status: Ordered Tresiba FlexTouch 200 units/mL subcutaneous solution See Instructions, INJECT 86 UNITS DAILY AT 9PM, # 45 Unknown, 6 Refills, [facility] 568[facility], 160, cm, 06/21/21 9:57:00 EDT, Height, 80.6, [...] 02/15/21 Stop Date: 05/10/21 Status: Ordered [place] Reusable Bed Pad 34 x 36 [place] Reusable Bed Pad 34 x 36 , [...] 11 Refills, Maintenance, 10/22/20 10:19:00 EDT, Tablet, [facility]/pharmacy #1026, Partial fill upon patient request if the prescription is for a schedule II opioid drug., 1 tablet B... Start Date: 10/22/20 Status: Ordered Zofran 4 mg oral tablet 1 tablet = 4 mg, By Mouth, Every 8 hours, PRN Nausea & Vomiting, # 15 tablet, 1 Refills, Maintenance, 06/04/21 16:16:00 EST, Tablet, [facility]/pharmacy #1026, Partial fill upon patient request [...] apnea)(Confirmed) Active Osteopenia(Confirmed) 18, 19 11/16/12 Active *[phone] [facility] Partn igor [place](Confirmed) Active Peripheral venous insufficiency(Confirmed) [...] 11left mild sensorineural hearing loss by [facility] Hearing Evaluation on 12/29/11 12Narcotic contract [...] lower parathyroidectomy. 06/16/08 SURGEON: Danny Marie M.D. ORTHOPAEDIC PHYSICIAN ASSISTANT: Naima Bowling M.D. 21b/l submassive PE diagnosed on Dec 20 in [facility] 22TTE 12/22/15 in [facility]: RV dilatation, RVSP 46 23Per ECHO 05/24/17 Trace mitral regurgitation , trace TC regurgitation w no significant valve pathology 24meg colo July 2009 exc for 2 hyperplastic polyps 25Colonoscopy 2005 at [facility] [place] per letter of Dr Amor Dobbins Social History Social History Type Response Smoking Status Never (less than 100 in lifetime) entered on: 10/22/20 Sex
--- OUTSIDE RECORDS SUMMARY | 2023-10-23 09:49 | XMS_ITS | Continuity of Care Document ---
Author Organization [facility] Address [address] [place] [address]- Care Team Providers Care Photoengraving Apprentice Name Role Phone Florinda Trinh MD Primary Care Physician Encounter [facility] Date(s): 09/09/20 - 10/09/20 [facility] [address] [place] [address]- Allergies, Adverse Reactions, Alerts Substance Reaction Severity [...] Note: vis 11/02/2010 5Admin Note: given by ELLOITT HEWITT. 6Admin Note: MELISSA CHIU RN 7Admin [...] or fever, (not to exceed 2000 mg/day) latvian, # 100 tablet, 11 Refills, Maintenance, 08/14/20 [...] 15:26:00 EDT, Route to Pharmacy Electronically, [facility]/pharmacy #[id number], 160, cm, 06/12/20 9:01... Start Date: 07/16/20 Status: Ordered ammonium lactate 12% topical cream 1 applicator, Topically, 2 times a day, # 280 Gm, 11 Refills, Maintenance, 01/27/20 19:13:00 EDT, [facility]/pharmacy #[id number], 1 applicator Topically 2 times a day, 167, cm, 01/13/20 8:54:00 EDT, Height, 78.8, kg, 01/01/20 3:41:00 EDT, Dry Weight Start Date: 01/27/20 Status: Ordered Baqsimi Two Pack 3 mg nasal powder = 3 mg, Naris, Right, Once, Please use for a low blood sugar emergency, may repeat in 15 minutes, #2 each, 3 Refills, Soft Stop, 06/26/20 7:30:00 EDT, [facility]/pharmacy [...] 3 Refills, Maintenance, 06/30/20 14:55:00 EDT, Tablet,[facility]/pharmacy #[id number], Discontinue 30- day supply presc... Start Date: 06/30/20 Stop Date: 06/25/21 Status: Ordered ferrous sulfate 325 mg oral tablet 1 tablet = 325 mg, By Mouth, Daily, May take with food to minimize abdominal discomfort. Do not take with milk. Take preferrably with juice., # 90 tablet, 1 Refills, Maintenance, 08/31/20 14:45:00 EDT, [facility]/pharmacy #[id number], 160, cm, 08/14/20 9:34:00 EDT... Start [...] 0 Refills, Maintenance, 08/28/20 17:52:00 EDT, [facility]/pharmacy [...] 9:08:00 EDT, Route to Pharmacy Electronically, [facility]/pharmacy #[id number], 160, cm, 06/12/20 9:01:00 EST, Height, [...] 78.8, kg,... Start Date: 01/21/20 Status: Ordered Ukb-cdo-iigbo medical-grade oxford diabetic shoes, depth or hightop Vin-vdy-ndwjy medical-grade oxford diabetic shoes, depth or hightop, [...] 10:25:00 EDT, Route to Pharmacy Electronically, [facility]/pharmacy #[id number], Part... Start Date: 10/30/20 Stop Date: 11/27/20 Status: Ordered oxyCODONE 5 mg oral tablet 5 mg, 1, tablet, By Mouth, Every 4 hours, for 28 days, PRN pain dispense not earlier than 11/27/20, # 168 tablet, Refills 0, Tot. Refills 0, Acute 12/25/20 10:25:00 EDT, 11/27/20 10:25:00 EDT, Route to Pharmacy Electronically, [facility]/pharmacy #[id number], Part... Start Date: 11/27/20 Stop Date: 12/25/20 Status: Ordered oxyCODONE 5 mg oral tablet 5 mg, 1, tablet, By Mouth, Every 4 hours, for 28 days, PRN pain dispense not earlier than 10/02/20, # 168 tablet, Refills 0, Tot. Refills 0, Acute 10/30/20 10:25:00 EDT, 10/02/20 10:25:00 EDT, Route to Pharmacy Electronically, [facility]/pharmacy #[id number], Part... Start Date: 10/02/20 Stop Date: 10/30/20 Status: Ordered oxyCODONE 5 mg oral tablet 5 mg, 1, tablet, By Mouth, Every 4 hours, for 28 days, PRN pain dispense not earlier than 10/02/20, # 168 tablet, Refills 0, Tot. Refills 0, Acute 11/27/20 10:25:00 EDT, 10/30/20 10:25:00 EDT, Route to Pharmacy Electronically, [facility]/pharmacy #[id number], Part... Start Date: 10/30/20 Stop Date: 11/27/20 Status: Ordered Pen [place], 32 G x 4 mm BD Ultra [...] 09/24/20 11:34:00 EDT, Route to Pharmacy Electronically, [facility]/pharmacy #[id number],Partial fill upon patient request if the prescrip... Start Date: 09/24/20 Stop Date: 10/08/20 Status: Ordered Trelegy Ellipta inhalation powder 1 puffs, Inhalation, Daily, at the same time every day given by freight broker agent , Dr Berkowitz, # 60 each, [...] Date: 09/22/20 Stop Date: 12/15/20 Status: Ordered [place] Reusable Bed Pad 34 x 36 [place] Reusable Bed Pad 34 x 36 , [...] abnormal(Confirmed) 11 12/29/11 Active Hepatitis C(Confirmed) Active [facility] current use of opi ate analgesic-LBP(Confirmed) 12 [...] apnea)(Confirmed) Active Osteopenia(Confirmed) 18, 19 11/16/12 Active *[id number] Cheri More(Confirmed) Active Peripheral venous insufficiency(Confirmed) 10/31/11 [...] lower parathyroidectomy. 06/16/08 SURGEON: Danny Marie M.D. DEPARTMENT [employer]: Naima Bowling M.D. 21b/l submassive PE diagnosed on Dec 20 in [facility] 22TTE 12/22/15 in [facility]: RV dilatation, RVSP 46 23Per ECHO 05/24/17 Trace mitral regurgitation , trace TC regurgitation w no significant valve pathology 24meg colo July 2009 exc for 2 hyperplastic polyps 25Colonoscopy 2004 at [facility] [place] per letter of Dr Amor Dobbins Social History Social History Type Response Smoking Status Never (less than 100 in lifetime) entered on: 09/10/20 Sex
--- OUTSIDE RECORDS SUMMARY | 2023-10-23 09:49 | XMS_ITS | Continuity of Care Document ---
Author Organization [facility] Address [address] [place] [address]- Care Team Providers Care Supervisor Roving Name Role Phone Gayathri GARZA, Florinda Primary Care Physician [place] [facility] 09/23/20 - 10/23/20 [facility] [address] [place] [address]- Allergies, Adverse Reactions, Alerts Substance Reaction Severity [...] exceed 2000 mg/day) yoruba, # 100 tablet, 11 Refills, Maintenance, 08/14/20 [...] 01/21/21 19:13:00 EDT, 01/27/20 19:13:00 EDT, Tablet, [facility]/pharmacy #[id number], 167, cm, 01/13/20 8:54:00 EDT, [...] 0 Refills, Maintenance, 10/22/20 10:11:00 EDT, Tablet, [facility]/pharmacy #[id number], 160, cm, 10/22/20 9:15:00 EDT, Height, 80.6, kg, 06/03/20 19:00:00 EST, Dry Weight Start Date: 10/22/20 Status: Ordered Cymbalta 60 mg oral enteric coated capsule 1 capsule = 60 mg, By Mouth, Daily, Decrease dose, # 30 capsule, 11 Refills, Maintenance, 01/27/20 19:13:00 EDT, EC Capsule, [facility]/pharmacy #[id number], 167, cm, 01/13/20 8:54:00 EDT, [...] tablet, 3 Refills, Maintenance, 06/30/20 14:55:00 EDT, Tablet,[facility]/pharmacy #[id number], Discontinue 30- [...] 78.8, kg,... Start Date: 01/21/20 Status: Ordered Zfd-gtd-xfbem medical-grade oxford diabetic shoes, depth or hightop Cdh-ann-lfqih medical-grade oxford diabetic shoes, depth or hightop, [...] 10/30/20 10:25:00 EDT, Route to Pharmacy Electronically, [facility]/pharmacy #[id number], Part... Start Date: 10/30/20 Stop Date: 11/27/20 Status: Ordered oxyCODONE 5 mg oral tablet 5 mg, 1, tablet, By Mouth, Every 4 hours, for 28 days, PRN pain dispense not earlier than 11/27/20, # 168 tablet, Refills 0, Tot. Refills 0, Acute 12/25/20 10:25:00 EDT, 11/27/20 10:25:00 EDT, Route to Pharmacy Electronically, [facility]/pharmacy #1026, Part... Start Date: 11/27/20 Stop Date: 12/25/20 Status: Ordered oxyCODONE 5 mg oral tablet 5 mg, 1, tablet, By Mouth, Every 4 hours, for 28 days, PRN pain dispense not earlier than 10/02/20, # 168 tablet, Refills 0, Tot. Refills 0, Acute 10/30/20 10:25:00 EDT, 10/02/20 10:25:00 EDT, Route to Pharmacy Electronically, [facility]/pharmacy #1026, Part... Start Date: 10/02/20 Stop Date: 10/30/20 Status: Ordered oxyCODONE 5 mg oral tablet 5 mg, 1, tablet, By Mouth, Every 4 hours, for 28 days, PRN pain dispense not earlier than 12/25/20, # 168 tablet, Refills 0, Tot. Refills 0, Acute 01/22/21 10:25:00 EDT, 12/25/20 10:25:00 EDT, Route to Pharmacy Electronically, [facility]/pharmacy #1026, Part... Start Date: 12/25/20 Stop Date: 01/22/21 Status: Ordered oxyCODONE 5 mg oral tablet 5 mg, 1, tablet, By Mouth, Every 4 hours, for 28 days, PRN pain dispense not earlier than 10/02/20, # 168 tablet, Refills 0, Tot. Refills 0, Acute 11/27/20 10:25:00 EDT, 10/30/20 10:25:00 EDT, Route to Pharmacy Electronically, [facility]/pharmacy #1026, Part... Start Date: 10/30/20 Stop Date: 11/27/20 Status: Ordered Pen [place], 32 G x 4 mm BD Ultra [...] 16:28:00 EDT, Routeto Pharmacy Electronically, [facility]/pharmacy #[id number], 160... Start Date: 10/15/20 Status: Ordered TENS electrode pads TENS electrode pads, See Instructions, # 1 box, Refills 5, Tot. Refills 5, Maintenance, use as directed for back pain Dx LBP M54.9 1 box of 4, 12/06/16 14:59:01, Compound Start Date: 12/06/16 Status: Ordered Trelegy Ellipta inhalation powder 1 puffs, Inhalation, Daily, at the same time every day given by melter loader , Dr Berkowitz, # 60 each, 0 [...] Date: 09/22/20 Stop Date: 12/15/20 Status: Ordered [place] Reusable Bed Pad 34 x 36 [place] Reusable Bed Pad 34 x 36 , [...] 11 Refills, Maintenance, 10/22/20 10:19:00 EDT, Tablet, [facility]/pharmacy #[id number], Partial fill upon patient request if the prescription is for a schedule II opioid drug., 1 tablet B... 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 06/16/08 SURGEON: Danny Marie M.D. OVEN TECHNICIAN: Naima Bowling M.D. 21b/l submassive PE diagnosed on Dec 20 in [facility] 22TTE 12/22/15 in [facility]: RV dilatation, RVSP 46 23Per ECHO 05/24/17 Trace mitral regurgitation , trace TC regurgitation w no significant valve pathology 24meg colo July 2009 exc for 2 hyperplastic polyps 25Colonoscopy 2004 at [facility] [place] per letter of Dr Amor Dobbins Social History Social History Type Response Smoking Status Never (less than 100 in lifetime) entered on: 10/22/20 Sex
--- OUTSIDE RECORDS SUMMARY | 2023-10-23 09:49 | XMS_ITS | Continuity of Care Document ---
Author Organization [facility] Address Unknown Care Team Providers Care Retread Operator Name Role Phone Gayathri GARZA, Florinda Primary Care Physician En[place] [facility] [place] Date(s): 04/15/21 - 05/15/21 [facility] Allergies, Adverse Reactions, Alerts Substance Reaction [...] tablet, 11 Refills, Maintenance, 04/28/21 13:24:00 EST, [facility]/pharmacy #[id number], 160, cm, 04/28/21 [...] 11 Refills, Maintenance, 04/21/21 18:12:00 EST, Tablet, [facility]/pharmacy #1026, 160, cm, 03/03/21 11:23:00 EST, Height, 80.6, kg, 06/03/20 19:00:00 EST, Dry Weight Start Date: 04/21/21 Status: Ordered escitalopram 20 mg oral tablet 1 tablet = 20 mg, By Mouth, Daily, Discontinue duloxetine 60 mg, # 30 tablet, 11 Refills, Maintenance, 12/09/20 11:15:00 EDT, Tablet, [facility]/pharmacy #1026, Partial fill [...] 04/28/21 14:34:00 EST, Route to Pharmacy Electronically, [facility]/pharmacy #[id number], Can use with [...] capsule, 3 Refills, Maintenance, 10/22/20 10:35:00 EDT, [facility]/pharmacy #1026, 160, cm, 10/22/20 [...] 78.8, kg,... Start Date: 01/21/20 Status: Ordered Oww-yep-gudix medical-grade oxford diabetic shoes, depth or hightop Mgf-qzf-dqkej medical-grade oxford diabetic shoes, depth or hightop, [...] days fo... Start Date: 05/17/21 Stop Date: 3/7/22 Status: Ordered oxyCODONE 5 mg oral tablet [...] 04/19/21 Stop Date: 05/17/21 Status: Ordered Pen [place], 32 G x 4 mm BD [...] 04/28/21 14:02:00 EST, Route to Pharmacy Electronically, [facility]/pharmacy #[id number], 160... Start Date: [...] 11 Refills, Maintenance, 04/28/21 14:03:00 EST, Tablet, [facility]/pharmacy #1026, 160, cm, 04/28/21 9:50:00 EST, Height, 80.6, kg, 06/03/20 19:00:00 EST, Dry Weight Start Date: 04/28/21 Status: Ordered Senna-Time 8.6 mg oral tablet 2 tablet, By Mouth, 2 times a day, PRN NEEDED FOR CONSTIPATION,INSTR, DISCONTINUE DOCUSATE, # 60tablet, 11 Refills, [id number], 160, cm, 03/03/21 11:23:00 EST, Height, 80.6, [...] 02/22/21 17:50:00 EST, Route to Pharmacy Electronically, [facility]/pharmacy #1026, 1... Start Date: [...] 02/15/21 11:39:00 EST, Route to Pharmacy Electronically, [facility]/pharmacy #[id number],Partial fill upon patient request if the prescrip... 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 06/16/08 SURGEON: Danny Marie M.D. ACQUISITION EDITOR: Naima Bowling M.D. 21b/l submassive PE diagnosed on Dec 20 in [facility] 22TTE 12/22/15 in [facility]: RV dilatation, RVSP 46 23Per ECHO 05/24/17 Trace mitral regurgitation , trace TC regurgitation w no significant valve pathology 24meg colo July 2009 exc for 2 hyperplastic polyps 25Colonoscopy 2004 at [facility] [place] per letter of Dr Amor Dobbins Social History Social History Type Response Smoking Status Never (less than 100 in lifetime) entered on: 10/22/20 Sex
--- OUTSIDE RECORDS SUMMARY | 2023-10-23 09:49 | XMS_ITS | Continuity of Care Document ---
Author Organization [facility] Address [address] [place] [address]- Care Team Providers Care Category Development Manager Name Role Phone Gayathri GARZA, Florinda Primary Care Physician Encounter [facility] Date(s): 10/15/20 - 11/14/20 [facility] [address] [place] [address]- Allergies, Adverse Reactions, Alerts Substance Reaction Severity [...] or fever, (not to exceed 2000 mg/day) vietnamese, # 100 tablet, 11 Refills, Maintenance, 08/14/20 10:13:00 EDT, [facility]/pharmacy #1026, 160, cm, 08/14/20 9:34:00 EDT, Height, [...] Maintenance, 01/27/20 19:13:00 EDT, EC Capsule, [facility]/pharmacy #1026, 167, cm, 01/13/20 8:54:00 EDT, Height, 78.8, kg, 01/01/20 3:41:00 EDT, Dry Weight Start Date: 01/27/20 Status: Ordered Eliquis 5 mg oral tablet 1 tablet = 5 mg, By Mouth, 2 times a day, # 60 tablet, 11 Refills, Maintenance, 02/10/20 11:22:00 EST, Tablet, [facility]/pharmacy #1026, 167, cm, 01/13/20 8:54:00 EDT, Height, 78.8, kg, 01/01/20 3:41:00 EDT, Dry Weight Start Date: 02/10/20 Status: Ordered famotidine 40 mg oral tablet 1 tablet = 40 mg, By Mouth, Daily at bedtime, If 40 mg tablet is not available, can be changed to 20 mg tablet 2 tablet at bedtime, # 90 tablet, 3 Refills, Maintenance, 06/30/20 14:55:00 EDT, Tablet,[facility]/pharmacy #1026, Discontinue 30- day [...] capsule, 3 Refills, Maintenance, 10/22/20 10:35:00 EDT, [facility]/pharmacy #1026, 160, cm, 10/22/20 9:15:00 EDT, Height, 80.6, kg, 06/03/20 19:00:00 EST, Dry Weight Start Date: 10/22/20 Stop Date: 10/17/21 Status: Ordered ketotifen 0.025% ophthalmic solution 1 drops, Eyes, Both, Every 12 hours, PRN as needed for eye allergy, # 7.5 mL, 11 Refills, Maintenance, 01/27/20 19:13:00 EDT, [facility]/pharmacy #1026, 1 drops Eyes, Both Every 12 [...] 6 Refills, Maintenance, 01/21/20 14:30:00 EDT, [facility]/pharmacy #1026, 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 Start Date: 01/21/20 Status: Ordered Hum-bih-zevng medical-grade oxford diabetic shoes, depth or hightop Unk-wkz-tqeye medical-grade oxford diabetic shoes, depth or hightop, [...] 10/30/20 10:25:00 EDT, Route to Pharmacy Electronically, [facility]/pharmacy #1026, Part... Start Date: 10/30/20 Stop Date: 11/27/20 Status: Ordered oxyCODONE 5 mg oral tablet 5 mg, 1, tablet, By Mouth, Every 4 hours, for 28 days, PRN pain dispense not earlier than 11/27/20, # 168 tablet, Refills 0, Tot. Refills 0, Acute 12/25/20 10:25:00 EDT, 11/27/20 10:25:00 EDT, Route to Pharmacy Electronically, [facility]/pharmacy #1026, Part... Start Date: 11/27/20 Stop Date: 12/25/20 Status: Ordered oxyCODONE 5 mg oral tablet 5 mg, 1, tablet, By Mouth, Every 4 hours, for 28 days, PRN pain dispense not earlier than 12/25/20, # 168 tablet, Refills 0, Tot. Refills 0, Acute 01/22/21 10:25:00 EDT, 12/25/20 10:25:00 EDT, Route to Pharmacy Electronically, [facility]/pharmacy #1026, Part... Start Date: 12/25/20 Stop Date: 01/22/21 Status: Ordered oxyCODONE 5 mg oral tablet 5 mg, 1, tablet, By Mouth, Every 4 hours, for 28 days, PRN pain dispense not earlier than 10/02/20, # 168 tablet, Refills 0, Tot. Refills 0, Acute 11/27/20 10:25:00 EDT, 10/30/20 10:25:00 EDT, Route to Pharmacy Electronically, [facility]/pharmacy #1026, Part... Start Date: 10/30/20 Stop Date: 11/27/20 Status: Ordered Pen [place], 32 G x 4 mm BD Ultra [...] Gm,11 Refills, Maintenance, 01/27/20 19:13:00 EDT, [facility]/pharmacy #1026, 17- 34 Gm By Mouth Daily,PRN:asneeded [...] 10 mg oral tablet See Instructions, LUCIANO HDZ, # 30 tablet, 5 Refills, Maintenance, [id number], 160, cm, 10/22/20 9:15:00 EDT, Height, 80.6, kg, 06/03/20 19:00:00 EST, Dry Weight Start Date: 11/13/20 Status: Ordered Senna 8.6 mg oral tablet 17.2 mg, 2, tablet, By Mouth, 2 times a day, PRN, discontinue docusate, # 60 tablet, Refills 11, Tot. Refills 11, Maintenance, for constipation, 02/10/20 11:22:00 EST, Route to Pharmacy Electronically, [facility]/pharmacy #1026 Tablet, 167, cm, 01/13/20 8:5... Start [...] Maintenance, 10/15/20 16:28:00 EDT, Routeto Pharmacy Electronically, [facility]/pharmacy #1026, 160... Start Date: 10/15/20 Status: Ordered TENS electrode pads TENS electrode pads, See Instructions, # 1 box, Refills 5, Tot. Refills 5, Maintenance, use as directed for back pain Dx LBP M54.9 1 box of 4, 12/06/16 14:59:01, Compound Start Date: 12/06/16 Status: Ordered Trelegy Ellipta inhalation powder 1 puffs, Inhalation, Daily, at the same time every day given by county assessor , Dr Berkowitz, # 60 each, 0 Refills, Maintenance, 11/20/19 13:03:00 EDT, Powder Start Date: 11/20/19 Status: Ordered Tresiba FlexTouch 200 units/mL subcutaneous solution See Instructions, Inject 55 units daily at 9pm, E11.65. 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 06/16/08 SURGEON: Danny Marie M.D. CUSTOMS VERIFIER: Naima Bowling M.D. 21b/l submassive PE diagnosed on Dec 20 in [facility] 22TTE 12/22/15 in [facility]: RV dilatation, RVSP 46 23Per ECHO 05/24/17 Trace mitral regurgitation , trace TC regurgitation w no significant valve pathology 24meg colo July 2009 exc for 2 hyperplastic polyps 25Colonoscopy 2004 at [facility] [place] per letter of Dr Amor Dobbins Social History Social History Type Response Smoking Status Never (less than 100 in lifetime) entered on: 10/22/20 Sex
--- OUTSIDE RECORDS SUMMARY | 2023-10-23 09:49 | XMS_ITS | Continuity of Care Document ---
Author Organization [facility] Address [address] [place] [address]- Care Team Providers Care Glazier Structural Glass Name Role Phone Gayathri GARZA, Florinda Primary Care Physician Encounter [facility] Date(s): 10/08/19 - 11/07/19 [facility] [address] [place] [address]- [facility] Allergies, Adverse Reactions, Alerts [...] exceed 2000 mg/day) macanese, # 100 tablet, 11 Refills, Maintenance, 01/16/19 [...] 11 Refills, Maintenance, 09/25/19 11:21:00 EDT, Cream, [facility], 1 application Topically 3 times a day, [...] Refills, Maintenance, 03/27/19 9:10:00 EST, EC Capsule, [facility], 159, cm, 03/20/19 14:59:00 EST, Height, 88.3, kg, 12/13/18 10:17:00 EDT, Dry Weight Start Date: 03/27/19 Status: Ordered docusate sodium 100 mg oral tablet 2 tablet = 200 mg, By Mouth, 2 times a day, # 120 tablet, 11 Refills, Maintenance, 09/25/19 11:07:00 EDT, [facility], 159, cm, 05/20/19 12:19:00 EST, Height, 88.1, kg, 04/25/19 16:02:00 EST, Dry Weight Start Date: 09/25/19 Status: Ordered Eliquis 5 mg oral tablet 1 tablet = 5 mg, By Mouth, 2 times a day, # 60 tablet, 11 Refills, Maintenance, 07/22/19 8:58:00 EDT, Tablet, [facility], 159, cm, 05/20/19 12:19:00 EST, Height, 88.1, kg, 04/25/19 16:02:00 EST, Dry Weight Start Date: 07/22/19 Status: Ordered enalapril 10 mg oral tablet 10 mg, 1, tablet, By Mouth, Daily, 90 days, # 90 tablet, Refills 3, Tot. Refills 3, Maintenance, 09/19/18 15:15:30 EDT, Route to Pharmacy Electronically, [id number], [facility] Start Date: 09/19/18 Status: Ordered famotidine 40 mg oral tablet 1 tablet = 40 mg, By Mouth, Daily at bedtime, If 40 mg tablet is not available, can change to 20 mgtablet 2 tablet at bedtime, # 30 tablet, 2 Refills, Maintenance, 10/09/19 10:01:00 EDT, Tablet, [facility], 159, cm, 09/25/19 14:31... Start Date: 10/09/19 Status: Ordered flunisolide 25 mcg/inh nasal spray 2 puffs, Nasal, 2 times a day, Keep your head down while using dispense when patient request it, # 1 each, 11 Refills, Maintenance, 07/10/19 17:15:00 EDT, [facility]/pharmacy #[id number], discontinue nasacort, 2 puffs Nasal [...] capsule, 11 Refills, Maintenance, 06/30/19 9:25:00 EDT, [facility]/pharmacy #[id number], 159, cm, 05/20/19 12:19:00 EST, [...] 01/16/19 8:53:23 EDT, Route to Pharmacy Electronically, [id number], [facility] [place]... Start Date: 01/16/19 [...] tablet, 1 Refills, Maintenance, 09/25/19 11:46:00 EDT, [facility], 159, cm, 05/20/19 12:19:00 EST, Height, 88.1, kg, 04/25/19 16:02:00 EST, Dry Weight Start Date: 09/25/19 Status: Ordered metFORMIN 500 mg oral tablet 1 tablet = 500 mg, By Mouth, 2 times a day, Take 1 tablet 2x a day. E11.65, # 60 tablet, 11 Refills, Maintenance, 09/23/19 9:54:00 EDT, Tablet, [facility], 159, cm, 05/20/19 12:19:00 EST, Height, 88.1, kg, 04/25/19 16:02:00 EST, Start Date: 09/23/19 Status: Ordered NovoLOG FlexPen 100 units/mL subcutaneous solution See Instructions, Max daily dose 100 units per day. E11.65, # 45 mL, 11 Refills, Maintenance, 09/23/19 9:56:00 EDT, [facility], DxE11.65, 159, cm, 05/20/19 12:19:00 EST, Height, 88.1, kg, 04/25/19 16:02:00 EST, Dry Weight Start Date: 09/23/19 Status: Ordered Wtx-kvo-xcngd medical-grade oxford diabetic shoes, depth or hightop Gwc-ncc-hhooh medical-grade oxford diabetic shoes, depth or hightop, [...] 10/25/19 11:43:00 EDT, Route to Pharmacy Electronically, [facility], MD... Start Date: 10/25/19 Stop Date: 11/22/19 Status: Ordered Pen [place], 32 G x 4 mm BD Ultra [...] MED LIST IF YOU ARE [facility] PLEASE DO NOT ERASE MEDICATIONS/MEDICAL SUPPLIES FROM [...] 09/25/19 11:08:00 EDT, Route to Pharmacy Electronically, [facility] Tablet, 159, cm, 05/20/19... Start Date: 09/25/19 [...] [facility] Electronically, [facility] [place]... Start Date: 05/22/19 [...] mL, 5 Refills, Maintenance, 09/23/19 9:57:00 EDT, [facility], 159, cm, 05/20/19 12:19:00 EST, Height, 88.1, kg, 04/25/19 16:02:00 EST, Dry Weight Start Date: 09/23/19 Status: Ordered Ventolin HFA 108 mcg/inh inhalation aerosol with adapter 2 puffs, Inhalation, 4 times a day, PRN Wheezing/Shortness of Breath, dispense when patient requestit, # 18 Gm, 5 Refills, Maintenance, 07/10/19 17:15:00 EDT, [facility]/pharmacy #[id number], 159, cm, 05/20/19 12:19:00 EST, Height, 88.1, kg, 04/25/19 16:02:00 EST... Start Date: 07/10/19 Status: Ordered Vitamin D3 1000 intl units oral tablet 1 tablet = 1,000 International_Units, By Mouth, Daily, # 90 tablet, 1 Refills, Maintenance, 10/09/19 10:01:00 EDT, [facility] [place], 159, cm, 09/25/19 14:31:00 EDT, Height, 88.1, kg, 04/25/19 16:02:00 EST, Dry Weight Start Date: 10/09/19 Status: Ordered [place] Reusable Bed Pad 34 [...] apnea)(Confirmed) Active Osteopenia(Confirmed) 16, 17 11/16/12 Active *[id number]-Care Partn david [place](Confirmed) Active Peripheral venous insufficiency(Confirmed) [...] diagnosed on Dec 20 [facility] 5insulin dependent 6Per ECHO 05/24/1718 Grade I, mild diastolic dysfunction with impaired LV relaxation, which may be normal for the patient's age. 7EGD on 06/24/16 by GI, Dr Damien caballero gastritis and esophageal varices grade 1 8EGD on 06/24/16 by GI, Dr Damien caballero gastritis and esophageal varices grade 1 9left mild sensorineural hearing loss by [facility] Hearing Evaluation on 12/29/11 10Narcotic contract [...] lower parathyroidectomy. 06/16/08 SURGEON: Danny Marie M.D. GIS DATABASE ADMINISTRATOR: Naima Bowling M.D. 19b/l submassive PE diagnosed on Dec 20 in [facility] 20TTE 12/22/15 in [facility]: RV dilatation, RVSP 46 21Per ECHO 05/24/17 Trace mitral regurgitation , trace TC regurgitation w no significant valve pathology 22meg colo July 2009 exc for 2 hyperplastic polyps 23Colonoscopy 2004 at [facility] [place] per letter of Dr Amor Dobbins Social History Social History Type Response Smoking Status Never (less than 100 in lifetime) entered on: 04/17/19 Sex
--- OUTSIDE RECORDS SUMMARY | 2023-10-23 09:50 | XMS_ITS | Continuity of Care Document ---
Author Organization [facility] Address [address] [place] [address]- Care Team Providers Care Fitness And Wellness Manager Name Role Phone Gayathri GARZA, Florinda Primary Care Physician Encounter [facility] Date(s): 03/09/22 - 04/08/22 [facility] [address] [place] [address]- Allergies, Adverse Reactions, Alerts Substance Reaction Severity Status penicillin RASH Active morphine itchy Active Lidocaine, Topical Active Bactrim 1 hyperkalemia Active 1Hyperkalemia when used together with lisinopril Immunizations Given and Recorded Vaccine Date Status Refusal Reason zoster vaccine, inactivated 12/08/21 Given zoster vaccine, inactivated 09/15/21 Given SARS-CoV-2 mRNA ([id number]-[id number]) vax 09/15/21 Given SARS-CoV-2 (COVID-19) mRNA BNT-162b2 [...] for 28 days, for pain fill date 03/16/2022 Dx Chronic LBP, renal colic, # 168 tablet, 0 Refills, Acute 04/13/22 13:10:00 EST, 03/16/22 13:10:00 EST, Tablet, [facility] [place], Partial fill up... Start Date: 03/16/22 Stop Date: 04/13/22 Status: Ordered acetaminophen-hydrocodone 300 mg-7.5 mg oral tablet 2 tablet, By Mouth, Every 8 hours, for 28 days, for pain fill date 04/13/2022 Dx Chronic LBP, renal colic, # 168 tablet, 0 Refills, Acute 05/11/22 13:10:00 EST, 04/13/22 13:10:00 EST, Tablet, [facility], Partial fill upo... Start Date: 04/13/22 Stop Date: 05/11/22 Status: Ordered acetaminophen-hydrocodone 300 mg-7.5 mg oral tablet 2 tablet, By Mouth, Every 8 hours, for 28 days, for pain fill date 05/11/2022 Dx Chronic LBP, renal colic, # 168 tablet, 0 Refills, Acute 06/08/22 13:10:00 EST, 05/11/22 13:10:00 EST, Tablet, [facility], Partial fill upo... Start Date: 05/11/22 [...] 3 Refills, Soft Stop, 03/09/22 11:35:00 EST, [facility]/pharmacy #[id number], 160, cm, 03/09/22 10:43:00EST, Height, [...] needed for anxiety and 1tab at HS [id number]-[id number], # 60 tablet, 11 Refills, Maintenance, 09/15/21 9:02:00 EDT, [facility]/pharmacy #[id number], Partial fill upon patient request... [...] EDT, Compound Start Date: 07/21/21 Status: Ordered doxycycline hyclate 100 mg oral tablet 1 tablet = 100 mg, By Mouth, Every 12 hours, for 7 days, with fluids (may take with food to minimize abdominal discomfort), # 14 tablet, 0 Refills, Acute 04/10/22 13:21:00 EST, 04/03/22 13:21:00 EST,Tablet, [facility]/pharmacy #[id number], Partial fill upon angelita... Start Date: 04/03/22 Stop Date: 04/10/22 Status: Ordered Eliquis 5 mg oral tablet 1 tablet = 5 mg, By Mouth, 2 times a day, # 180 tablet, 3 Refills, Maintenance, 03/09/22 11:54:00 EST, Tablet, [facility]/pharmacy #[id number], 160, cm, 03/09/22 10:43:00 EST, Height, 78, kg, 01/14/22 19:37:00 EDT, Dry Weight Start Date: 03/09/22 Stop Date: 03/04/23 Status: Ordered escitalopram 20 mg oral tablet 1 tablet = 20 mg, By Mouth, Daily, # 30 tablet, 11 Refills, Maintenance, 12/06/21 15:04:00 EDT, Tablet, [facility], Partial fill upon [...] Dry Weight Start Date: 03/09/22 Status: Ordered hydroCHLOROthiazide 12.5 mg oral capsule 1 capsule = 12.5 mg, By Mouth, Daily, # 90 capsule, 3 Refills, Maintenance, 11/19/21 14:28:00 EDT, [id number], 160, cm, 11/05/21 9:50:00 EDT, Height, [...] Date: 04/28/21 Stop Date: 04/23/22 Status: Ordered Nitroglycerin 0 Refills, Maintenance, 02/01/22 [...] 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 Start Date: 03/09/22 Status: Ordered Uke-jzl-dccgd medical-grade oxford diabetic shoes, depth or hightop Fzb-qhc-tlhfu medical-grade oxford diabetic shoes, depth or hightop, [...] Weight Start Date: 03/09/22 Status: Ordered Pen [place], 32 G x 4 mm BD Ultra [...] Compound Start Date: 08/27/21 Status: Ordered tiZANidine 4 mg oral tablet 4 mg, 1, tablet, By Mouth, Every 8 hours, PRN, # 42 tablet, Refills 3, Tot. Refills 3, Maintenance,as needed for muscle spasm, 03/09/22 11:58:00 EST, Route to Pharmacy Electronically, [facility]/pharmacy #[id number], Partial fill upon patient request if the presc... Start Date: 03/09/22 Stop Date: 05/04/22 Status: Ordered Trelegy Ellipta inhalation powder 1 puffs, Inhalation, Daily, at the same time every day Given by Head Of Stock, Dr. Michael Berkowitz, # 60 each, 0 Refills, Maintenance, 07/21/21 11:59:00 EDT, Powder, Partial fill upon patient request if the prescription is for a schedule II opi... Start Date: 07/21/21 Status: Ordered Tresiba FlexTouch 200 units/mL subcutaneous solution See Instructions, INJECT 42 UNITS DAILY AT 9PM E11.9 90 day, # 21 mL, 3 Refills, 03/09/22 17:14:00 EST, [facility]/pharmacy #[id number], 160, cm, 03/09/22 10:43:00 [...] Gm, 5 Refills, Maintenance, 03/09/22 11:55:00 EST, [facility]/pharmacy #[id number], 2 Gm Topically 4 times a day,x14 days, 160, cm, 03/09/22 10:43:00 EST, Height, 78, kg, 01/14/22 19:37:00 EDT, Dry Weight Start Date: 03/09/22 Stop Date: 06/01/22 Status: Ordered [place] Reusable Bed Pad 34 x 36 [place] Reusable Bed Pad 34 x 36 , [...] Confirmed 12/29/11 Active Hepatitis C Confirmed Active 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 Confirmed Active Hypercholesterolemia Confirmed Active Hyperparathyroidism s/p right lower parathyroidectomy 06/16/2008 Confirmed Active Hypertension Confirmed Active Hysterectomy Confirmed Active Incontinence of urine Confirmed Active Iron deficiency anemia Confirmed Active Left ventricular hypertrophy 13 Confirmed Active 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 Confirmed Active Memory impairment Confirmed Active Mitral regurgitation 14 Confirmed 2/14/18 Active Myofascial muscle pain Confirmed Active Nephrolithiasis 15, 16, 17 Confirmed 06/11/02 Active Obesity Confirmed Active JENNIFER (obstructive sleep apnea) Confirmed Active Osteopenia 18, 19, 20 Confirmed 11/16/12 Active *[id number] Real Estate Listing Consultant Karine More Confirmed Active Peripheral venous [...] 2 peroneal veins diagnosed on Dec 20 [facility] 6insulin dependent 7Per ECHO 05/24/1718 Grade [...] 11left mild sensorineural hearing loss by [facility] Hearing Evaluation on 12/29/11 12Narcotic [...] lower parathyroidectomy. 06/16/08 SURGEON: Danny Marie M.D. PHYSICAL THERAPY SUPERVISOR: Naima Bowling M.D. 22b/l submassive PE diagnosed on Dec 20 in [facility] 23TTE 12/22/15 in [facility]: RV dilatation, RVSP 46 24Per ECHO 05/24/17 Trace mitral regurgitation , trace TC regurgitation w no significant valve pathology 25meg colo July 2009 exc for 2 hyperplastic polyps 26Colonoscopy 2004 at [facility] [place] per letter of Dr Amor Dobbins Social History Social History Type Response Smoking Status Never (less than 100 in lifetime) entered on: 10/22/20 Sex Patient Care team information Care Team Personnel Name: Diamond Weiss RN Position: [facility] RN Member Role: Primary Care Nurse Name: Tiara Cavazos RN Position: [facility] OB RN Member Role: Primary Care Nurse Name: Shreya Boss RN Position: S RN Member Role: Primary Care Nurse Name: Virginia Benson RN Position: S RN Member Role: Primary Care Nurse Name: Jaylin Hernandez RN Position: [facility] Onco RN Member Role: Primary Care Nurse Name: Glen Cota MD Position: [facility] Renal MD Member Role: Lifetime Consulting Physician Address: Address: [address] [place] [address] [facility] [place] [address]- Name: Gayathri GARZA, Florinda Position: [facility] Primary Care Physician Member Role: PCP Address: Address: [address] [place] [id number]- Care Team Related Persons Name: JOSE ELIAS TODD Address: [place] [address] Name: JOSE ELIAS KIRKLAND Address: home [address] [place] [address] Name: LEONIE SCHRADER Address: [place] [address]
--- OUTSIDE RECORDS SUMMARY | 2023-10-23 09:50 | XMS_ITS | Continuity of Care Document ---
Author Organization [facility] Address Unknown Care Team Providers Care Pharmacy Technician Instructor Name Role Phone Gayathri GARZA, Florinda Primary Care Physician Encounter [facility] Date(s): 10/06/21 - 11/05/21 [facility] Allergies, Adverse Reactions, Alerts Substance Reaction Severity Status penicillin RASH Active morphine itchy Active Bactrim 1 hyperkalemia Active Lidocaine, Topical Active 1Hyperkalemia when used together with lisinopril Immunizations Given and Recorded Vaccine Date Status Refusal Reason zoster vaccine, inactivated 09/15/21 Given SARS-CoV-2 mRNA (yhihsio-ykst-lqkgu) vax 09/15/21 Given SARS-CoV-2 (COVID-19) mRNA BNT-162b2 [...] or fever, (not to exceed 2000 mg/day) andorran, # 100 tablet, 11 Refills, Maintenance, 04/28/21 13:24:00 EST, [facility]/pharmacy #[id number], 160, cm, 04/28/21 [...] Gm, 11 Refills, Maintenance, 07/21/21 12:43:00 EDT, [facility]/pharmacy #1026, 1 applicator Topically [...] 3 Refills, Soft Stop, 06/26/20 7:30:00 EDT, [facility]/pharmacy #1026, Partial fill upon patient request if the prescription is for a schedule II op... Start Date: 06/26/20 Status: Ordered Biotene Moisturizing Mouth oral spray See Instructions, [place] directly into mouth; spray is safe to swallow as needed for dry mouth, # 45mL, 11 Refills, Maintenance, 07/21/21 12:43:00 EDT, [facility]/pharmacy #1026, [place] directly into mouth; spray is safe to [...] needed for anxiety and 1tab at HS keqviw-lfz-nsflq, # 60 tablet, 11 Refills, Maintenance, 09/15/21 9:02:00 EDT, [id number], Partial fill upon patient request... Start Date: 09/15/21 Status: Ordered capsaicin 0.025% topical cream 1 application, Topically, 3 times a day, # 35 Gm, 11 Refills, Maintenance, 07/21/21 12:26:00 EDT, Cream, [facility]/pharmacy #1026, 1 application Topically [...] 11 Refills, Maintenance, 04/21/21 18:12:00 EST, Tablet, [facility]/pharmacy #1026, 160, cm, 03/03/21 11:23:00 EST, Height, 80.6, kg, 06/03/20 19:00:00 EST, Dry Weight Start Date: 04/21/21 Status: Ordered escitalopram 20 mg oral tablet 1 tablet = 20 mg, By Mouth, Daily, Discontinue duloxetine 60 mg, # 30 tablet, 11 Refills, Maintenance, 12/09/20 11:15:00 EDT, Tablet, [facility]/pharmacy #1026, Partial fill upon [...] tablet, 3 Refills, Maintenance, 07/12/21 18:53:00 EDT, Tablet,[facility]/pharmacy #1026, Discontinue 30- day supply presc... Start Date: 07/12/21 Stop Date: 07/07/22 Status: Ordered ferrous sulfate 325 mg oral tablet 1 tablet = 325 mg, By Mouth, Daily, May take with food to minimize abdominal discomfort. Do not take with milk. Take preferrably with juice., # 90 tablet, 3 Refills, Maintenance, 09/15/21 8:56:00 EDT, [facility]/pharmacy #1026, 160, cm, 09/15/21 [...] 04/28/21 14:34:00 EST, Route to Pharmacy Electronically, [facility]/pharmacy #[id number], Can use with [...] capsule, 3 Refills, Maintenance, 10/22/20 10:35:00 EDT, [facility]/pharmacy #1026, 160, cm, 10/22/20 [...] # 90 tablet, 1 Refills, [id number], 90, TOME GAGE TABLETA POR VIA ORAL TODOS LOS [facility], 160, cm, 09/21/21 8:54:00 EDT, Height, 80.6,kg, 06/03/20 19:00:00 EST, Dry Weight Start Date: 10/13/21 Status: Ordered Nexium 40 mg oral enteric coated capsule 1 capsule = 40 mg, By Mouth, Daily, 30 minutes before breakfast, # 30 capsule, 11 Refills, Maintenance, 04/28/21 14:00:00 EST, [facility]/pharmacy #1026, Discontinue pantoprazole, 160, cm, [...] 09/21/21 9:23:00 EDT, Tablet, [facility], P... Start Date: 09/21/21 Status: Ordered Norvasc 5 mg oral tablet 5 mg, 1, tablet, By Mouth, Daily, # 30 tablet, Refills 0, Tot. Refills 0, Maintenance, 09/21/21 9:23:00 EDT, Route to Pharmacy Electronically, [facility], Partial fill upon patient request if the prescription is for a schedule II o... Start Date: 09/21/21 Status: Ordered NovoLOG FlexPen 100 units/mL subcutaneous solution See Instructions, Inject up to 26 untis via Insulin sliding scale 3x a day w/meals,MAX daily dose 78 units, E11.65, # 45 mL, 6 Refills, Maintenance, 01/21/20 14:30:00 EDT, [facility]/pharmacy #1026, 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 Start Date: 01/21/20 Status: Ordered Qmg-lgs-ukgdr medical-grade oxford diabetic shoes, depth or hightop Ttj-dbd-kpljg medical-grade oxford diabetic shoes, depth or hightop, [...] 11/29/21 Stop Date: 12/27/21 Status: Ordered Pen [place], 32 G x 4 mm BD Ultra [...] 04/28/21 14:02:00 EST, Route to Pharmacy Electronically, [facility]/pharmacy #1026, 160... Start Date: [...] 527 Gm,11 Refills, Maintenance, 01/27/20 19:13:00 EDT, [facility]/pharmacy #1026, 17- 34 Gm [...] 11 Refills, Maintenance, 04/28/21 14:03:00 EST, Tablet, [facility]/pharmacy #1026, 160, cm, 04/28/21 9:50:00 EST, Height, 80.6, kg, 06/03/20 19:00:00 EST, Dry Weight Start Date: 04/28/21 Status: Ordered Senna-Time 8.6 mg oral tablet 2 tablet, By Mouth, 2 times a day, PRN NEEDED FOR CONSTIPATION,INSTR, DISCONTINUE DOCUSATE, # 60tablet, 11 Refills, [id number], 160, cm, 03/03/21 11:23:00 EST, Height, 80.6, [...] 02/22/21 17:50:00 EST, Route to Pharmacy Electronically, [facility]/pharmacy #1026, 1... Start Date: 02/22/21 Status: Ordered tamsulosin 0.4 mg oral capsule See Instructions, TOME 1 CAPSULA POR VIA ORAL TODOS LOS HDZ, # 30 capsule, Refills 0, InstructionsReplace Required Details, Route to Pharmacy Electronically, [id number], 160, cm, 09/21/21 8:54:00 EDT, Height, 80.6, [...] 09/15/21 9:03:00 EDT, Route to Pharmacy Electronically, [facility]/pharmacy #1026, Partial fill upon patient request if the prescri... Start Date: 09/15/21 Stop Date: 03/02/22 Status: Ordered Trelegy Ellipta inhalation powder 1 puffs, Inhalation, Daily, at the same time every day Given by Tetryl Boiling Tub Operator, Dr. Michael Berkowitz, # 60 each, 0 Refills, Maintenance, 07/21/21 11:59:00 EDT, Powder, Partial fill upon patient request if the prescription is for a schedule II opi... Start Date: 07/21/21 Status: Ordered Tresiba FlexTouch 200 units/mL subcutaneous solution See Instructions, INJECT 86 UNITS DAILY AT 9PM, # 45 Unknown, 6 Refills, [id number], 160, cm, 06/21/21 9:57:00 EDT, Height, 80.6, [...] 02/15/21 Stop Date: 05/10/21 Status: Ordered [place] Reusable Bed Pad 34 x 36 [place] Reusable Bed Pad 34 x 36 , [...] abnormal(Confirmed) 11 12/29/11 Active Hepatitis C(Confirmed) Active long-term current use of opi ate analgesic-LBP(Confirmed) 12 [...] apnea)(Confirmed) Active Osteopenia(Confirmed) 18, 19 11/16/12 Active *[id number] Cheri Partn igor More(Confirmed) Active Peripheral venous [...] lower parathyroidectomy. 06/16/08 SURGEON: Danny Marie M.D. METAL OR WOOD BLOCKER: Naima Bowling M.D. 21b/l submassive PE diagnosed on Dec 20 in [facility] 22TTE 12/22/15 in [facility]: RV dilatation, RVSP 46 23Per ECHO 05/24/17 Trace mitral regurgitation , trace TC regurgitation w no significant valve pathology 24meg colo July 2009 exc for 2 hyperplastic polyps 25Colonoscopy 2004 at [facility] [place] per letter of Dr Amor Dobbins Social History Social History Type Response Smoking Status Never (less than 100 in lifetime) entered on: 10/22/20 Sex
--- OUTSIDE RECORDS SUMMARY | 2023-10-23 09:50 | XMS_ITS | Continuity of Care Document ---
Author Organization [facility] Address Unknown Care Team Providers Care Enterprise Resource Planning Consultant Name Role Phone Gayathri GARZA, Florinda Primary Care Physician Encounter [facility] Date(s): 04/20/21 - 05/20/21 [facility] Allergies, Adverse Reactions, Alerts Substance Reaction [...] or fever, (not to exceed 2000 mg/day) tristanian, # 100 tablet, 11 Refills, Maintenance, 04/28/21 13:24:00 EST, [facility]/pharmacy #[id number], 160, cm, 04/28/21 9:50:00 EST, [...] 11 Refills, Maintenance, 01/27/20 19:13:00 EDT, [facility]/pharmacy #[id number], 1 applicator Topically 2 times a day, 167, cm, 01/13/20 8:54:00 EDT, Height, 78.8, kg, 01/01/20 3:41:00 EDT, Dry Weight Start Date: 01/27/20 Status: Ordered Baqsimi Two Pack 3 mg nasal powder = 3 mg, Naris, Right, Once, Please use for a low blood sugar emergency, may repeat in 15 minutes, #2 each, 3 Refills, Soft Stop, 06/26/20 7:30:00 EDT, [facility]/pharmacy #1026, Partial fill upon [...] 14:34:00 EST, Route to Pharmacy Electronically, [facility]/pharmacy #[id number], Can use with HCTZ, 160, [...] 3 Refills, Maintenance, 10/22/20 10:35:00 EDT, [facility]/pharmacy #1026, 160, cm, 10/22/20 9:15:00 EDT, Height, 80.6, kg, 06/03/20 19:00:00 EST, Dry Weight Start Date: 10/22/20 Stop Date: 10/17/21 Status: Ordered ketotifen 0.025% ophthalmic solution 1 drops, Eyes, Both, Every 12 hours, PRN as needed for eye allergy, # 7.5 mL, 11 Refills, Maintenance, 01/27/20 19:13:00 EDT, [facility]/pharmacy #[id number], 1 drops Eyes, Both Every [...] 78.8, kg,... Start Date: 01/21/20 Status: Ordered Uen-lmx-rdgut medical-grade oxford diabetic shoes, depth or hightop Ojg-xkk-plspg medical-grade oxford diabetic shoes, depth or hightop, [...] 07/12/21 Stop Date: 08/09/21 Status: Ordered Pen [place], 32 G x 4 mm BD Ultra [...] 14:02:00 EST, Route to Pharmacy Electronically, [facility]/pharmacy #[id number], 160... Start Date: 04/28/21 Stop [...] Refills, Maintenance, 04/28/21 14:03:00 EST, Tablet, [facility]/pharmacy #1026, 160, cm, 04/28/21 9:50:00 EST, Height, 80.6, kg, 06/03/20 19:00:00 EST, Dry Weight Start Date: 04/28/21 Status: Ordered Senna-Time 8.6 mg oral tablet 2 tablet, By Mouth, 2 times a day, PRN NEEDED FOR CONSTIPATION,INSTR, DISCONTINUE DOCUSATE, # 60tablet, 11 Refills, [facility] STORE [id number], 160, cm, 03/03/21 11:23:00 EST, Height, 80.6, [...] the same time every day given by can marker , Dr Berkowitz, # 60 each, 0 [...] Date: 02/15/21 Stop Date: 05/10/21 Status: Ordered [place] Reusable Bed Pad 34 x 36 [place] Reusable Bed Pad 34 x 36 , [...] apnea)(Confirmed) Active Osteopenia(Confirmed) 18, 19 11/16/12 Active *[id number] Care Partn igor More(Confirmed) Active Peripheral venous [...] 11left mild sensorineural hearing loss by [facility] Hearing Evaluation on 12/29/11 12Narcotic [...] lower parathyroidectomy. 06/16/08 SURGEON: Danny Marie M.D. TERRITORY SALES EXECUTIVE: Naima Bowling M.D. 21b/l submassive PE diagnosed on Dec 20 in [facility] 22TTE 12/22/15 in [facility]: RV dilatation, RVSP 46 23Per ECHO 05/24/17 Trace mitral regurgitation , trace TC regurgitation w no significant valve pathology 24meg colo July 2009 exc for 2 hyperplastic polyps 25Colonoscopy 2004 at [facility] [place] per letter of Dr Amor Dobbins Social History Social History Type Response Smoking Status Never (less than 100 in lifetime) entered on: 10/22/20 Sex
--- OUTSIDE RECORDS SUMMARY | 2023-10-23 09:50 | XMS_ITS | Continuity of Care Document ---
Author Organization [facility] Address [address] [place] [address]- Care Team Providers Care Local Company Truck Driver Name Role Phone Gayathri GARZA, Florinda Primary Care Physician Encounter [facility] Date(s): 09/26/20 - 10/26/20 [facility] [address] [place] [address]- Allergies, Adverse Reactions, Alerts Substance Reaction Severity [...] or fever, (not to exceed 2000 mg/day) setswana, # 100 tablet, 11 Refills, Maintenance, 08/14/20 [...] 0 Refills, Maintenance, 10/22/20 10:11:00 EDT, Tablet, [facility]/pharmacy #1026, 160, cm, 10/22/20 9:15:00 EDT, Height, 80.6, kg, 06/03/20 19:00:00 EST, Dry Weight Start Date: 10/22/20 Status: Ordered Cymbalta 60 mg oral enteric coated capsule 1 capsule = 60 mg, By Mouth, Daily, Decrease dose, # 30 capsule, 11 Refills, Maintenance, 01/27/20 19:13:00 EDT, EC Capsule, [facility]/pharmacy #1026, 167, cm, 01/13/20 8:54:00 EDT, Height, 78.8, kg, 01/01/20 3:41:00 EDT, Dry Weight Start Date: 01/27/20 Status: Ordered Eliquis 5 mg oral tablet 1 tablet = 5 mg, By Mouth, 2 times a day, # 60 tablet, 11 Refills, Maintenance, 02/10/20 11:22:00 EST, Tablet, [facility]/pharmacy #1026, 167, cm, 01/13/20 8:54:00 EDT, Height, [...] 78.8, kg,... Start Date: 01/21/20 Status: Ordered Enl-yif-wsyzl medical-grade oxford diabetic shoes, depth or hightop Uqx-lrh-suhuy medical-grade oxford diabetic shoes, depth or hightop, [...] 10/30/20 10:25:00 EDT, Route to Pharmacy Electronically, [facility]/pharmacy #1026, Part... Start Date: 10/30/20 Stop Date: 11/27/20 Status: Ordered oxyCODONE 5 mg oral tablet 5 mg, 1, tablet, By Mouth, Every 4 hours, for 28 days, PRN pain dispense not earlier than 11/27/20, # 168 tablet, Refills 0, Tot. Refills 0, Acute 12/25/20 10:25:00 EDT, 11/27/20 10:25:00 EDT, Route to Pharmacy Electronically, [facility]/pharmacy #1026, Part... Start Date: 11/27/20 Stop Date: 12/25/20 Status: Ordered oxyCODONE 5 mg oral tablet 5 mg, 1, tablet, By Mouth, Every 4 hours, for 28 days, PRN pain dispense not earlier than 10/02/20, # 168 tablet, Refills 0, Tot. Refills 0, Acute 10/30/20 10:25:00 EDT, 10/02/20 10:25:00 EDT, Route to Pharmacy Electronically, [facility]/pharmacy #1026, Part... Start Date: 10/02/20 Stop Date: 10/30/20 Status: Ordered oxyCODONE 5 mg oral tablet 5 mg, 1, tablet, By Mouth, Every 4 hours, for 28 days, PRN pain dispense not earlier than 12/25/20, # 168 tablet, Refills 0, Tot. Refills 0, Acute 01/22/21 10:25:00 EDT, 12/25/20 10:25:00 EDT, Route to Pharmacy Electronically, [facility]/pharmacy #1026, Part... Start Date: 12/25/20 Stop Date: 01/22/21 Status: Ordered oxyCODONE 5 mg oral tablet 5 mg, 1, tablet, By Mouth, Every 4 hours, for 28 days, PRN pain dispense not earlier than 10/02/20, # 168 tablet, Refills 0, Tot. Refills 0, Acute 11/27/20 10:25:00 EDT, 10/30/20 10:25:00 EDT, Route to Pharmacy Electronically, [facility]/pharmacy #1026, Part... Start Date: 10/30/20 Stop Date: 11/27/20 Status: Ordered Pen [place], 32 G x 4 mm BD Ultra [...] Maintenance, 10/15/20 16:28:00 EDT, Routeto Pharmacy Electronically, [facility]/pharmacy #1026, 160... Start Date: 10/15/20 Status: Ordered TENS electrode pads TENS electrode pads, See Instructions, # 1 box, Refills 5, Tot. Refills 5, Maintenance, use as directed for back pain Dx LBP M54.9 1 box of 4, 12/06/16 14:59:01, Compound Start Date: 12/06/16 Status: Ordered Trelegy Ellipta inhalation powder 1 puffs, Inhalation, Daily, at the same time every day given by women's lacrosse coach , Dr Berkowitz, # 60 each, 0 [...] Date: 09/22/20 Stop Date: 12/15/20 Status: Ordered [place] Reusable Bed Pad 34 x 36 [place] Reusable Bed Pad 34 x 36 , [...] abnormal(Confirmed) 11 12/29/11 Active Hepatitis C(Confirmed) Active roasterman current use of opi ate analgesic-LBP(Confirmed) 12 [...] apnea)(Confirmed) Active Osteopenia(Confirmed) 18, 19 11/16/12 Active *[id number] Cheri Partn igor More(Confirmed) Active Peripheral venous [...] loss by [facility] Hearing Evaluation on 12/29/11 12Narcotic contract w [...] lower parathyroidectomy. 06/16/08 SURGEON: Danny Marie M.D. WHITE SUGAR PAN TANK OPERATOR: Naima Bowling M.D. 21b/l submassive PE diagnosed on Dec 20 in [facility] 22TTE 12/22/15 in [facility]: RV dilatation, RVSP 46 23Per ECHO 05/24/17 Trace mitral regurgitation , trace TC regurgitation w no significant valve pathology 24meg colo July 2009 exc for 2 hyperplastic polyps 25Colonoscopy 2004 at [facility] [place] per letter of Dr Amor Dobbins Social History Social History Type Response Smoking Status Never (less than 100 in lifetime) entered on: 10/22/20 Sex
--- OUTSIDE RECORDS SUMMARY | 2023-10-23 09:50 | XMS_ITS | Continuity of Care Document ---
Author Organization [facility] Address [address] [place] [address]- Care Team Providers Care Intelligence Consultant Name Role Phone Gayathri GARZA, Florinda Primary Care Physician Encounter [facility] Date(s): 08/08/20 - 09/07/20 [facility] [address] [place] [address]- Allergies, Adverse Reactions, Alerts Substance Reaction Severity [...] or fever, (not to exceed 2000 mg/day) ivorian, # 100 tablet, 11 Refills, Maintenance, 08/14/20 [...] 07/16/20 15:26:00 EDT, Route to Pharmacy Electronically, [facility]/pharmacy #[id number], 160, cm, 06/12/20 9:01... Start Date: 07/16/20 Status: Ordered ammonium lactate 12% topical cream 1 applicator, Topically, 2 times a day, # 280 Gm, 11 Refills, Maintenance, 01/27/20 19:13:00 EDT, [facility]/pharmacy #1026, 1 applicator Topically [...] 3 Refills, Soft Stop, 06/26/20 7:30:00 EDT, [facility]/pharmacy #1026, Partial fill upon patient request if the prescription is for a schedule II op... Start Date: 06/26/20 Status: Ordered calcium (as citrate)-vitamin D 315 mg-250 intl units oral tablet 2 tablet, By Mouth, 2 times a day, for 30 days, calcium citrate, # 120 tablet, 11 Refills, Hard Stop 01/21/21 19:13:00 EDT, 01/27/20 19:13:00 EDT, Tablet, [facility]/pharmacy #1026, 167, cm, 01/13/20 8:54:00 EDT, Height, 78.8, kg, 01/01/20 3:41:00 EDT, Dry... Start Date: 01/27/20 Stop Date: 01/21/21 Status: Ordered capsaicin 0.025% topical cream 1 application, Topically, 3 times a day, # 90 Gm, 11 Refills, Maintenance, 02/10/20 11:22:00 EST, Cream, [facility]/pharmacy #1026, 1 application Topically [...] tablet, 1 Refills, Maintenance, 08/31/20 14:45:00 EDT, [facility]/pharmacy #1026, 160, cm, 08/14/20 9:34:00 EDT... Start [...] capsule, 0 Refills, Maintenance, 08/28/20 17:52:00 EDT, [facility]/pharmacy #1026, 160, cm, 08/14/20 [...] 06/24/20 9:08:00 EDT, Route to Pharmacy Electronically, [facility]/pharmacy #1026, 160, cm, 06/12/20 9:01:00 EST, Height, [...] 78.8, kg,... Start Date: 01/21/20 Status: Ordered Jim-pdz-cewrl medical-grade oxford diabetic shoes, depth or hightop Qqx-okx-zutvf medical-grade oxford diabetic shoes, depth or hightop, [...] EDT, 09/04/20 10:25:00 EDT, Route toPharmacy Electronically, [facility]/pharmacy #1026, Parti... Start Date: 09/04/20 Stop Date: 10/02/20 Status: Ordered oxyCODONE 5 mg oral tablet 5 mg, 1, tablet, By Mouth, Every 4 hours, for 28 days, PRN pain dispense not earlier than 10/02/20, # 168 tablet, Refills 0, Tot. Refills 0, Acute 10/30/20 10:25:00 EDT, 10/02/20 10:25:00 EDT, Route to Pharmacy Electronically, [facility]/pharmacy #1026, Part... Start Date: 10/02/20 Stop Date: 10/30/20 Status: Ordered Pen [place], 32 G x 4 mm BD Ultra [...] 9:28:00 EST, Route to Pharmacy Electronically, [facility]/pharmacy #1026, 167,... Start Date: 05/01/20 Status: Ordered [...] 08/14/20 10:39:00 EDT, Route to Pharmacy Electronically, [facility]/pharmacy #1026,Partial fill upon patient request if the prescrip... Start Date: 08/14/20 Stop Date: 08/28/20 Status: Ordered Trelegy Ellipta inhalation powder 1 puffs, Inhalation, Daily, at the same time every day given by rat trapper , Dr Berkowitz, # 60 each, 0 [...] Gm, 5 Refills, Maintenance, 06/12/20 8:41:00 EST, [facility]/pharmacy #1026, 160, cm, 06/04/20 11:29:00 EST, Height, [...] Date: 06/12/20 Stop Date: 09/04/20 Status: Ordered [place] Reusable Bed Pad 34 x 36 [place] Reusable Bed Pad 34 x 36 , [...] apnea)(Confirmed) Active Osteopenia(Confirmed) 18, 19 11/16/12 Active *[id number] [facility](Confirmed) Active Peripheral venous insufficiency(Confirmed) 10/31/11 [...] parathyroidectomy. 06/16/08 SURGEON: Danny Marie M.D. COMMERCIAL LINES ASSISTANT: Naima Bowling M.D. 21b/l submassive PE diagnosed on Dec 20 in [facility] 22TTE 12/22/15 in [facility]: RV dilatation, RVSP 46 23Per ECHO 05/24/17 Trace mitral regurgitation , trace TC regurgitation w no significant valve pathology 24meg colo July 2009 exc for 2 hyperplastic polyps 25Colonoscopy 2004 at [facility] [place] per letter of Dr Amor Dobbins Social History Social History Type Response Smoking Status Never (less than 100 in lifetime) entered on: 06/12/20 Sex
--- OUTSIDE RECORDS SUMMARY | 2023-10-23 09:50 | XMS_ITS | Continuity of Care Document ---
Author Organization [facility] Address [address] [place] [address]- Care Team Providers Care Chucking Machine Operator Name Role Phone Gayathri GARZA, Florinda Primary Care Physician Encounter [facility] [place] [place] Date(s): 08/16/22 - 09/15/22 [facility] [address] [place] [id number]- Attending Physician: Yaya Patino Admitting Physician: AdmtrYaya Referring Physician: Admtr, Ar8 Allergies, Adverse Reactions, Alerts Substance Reaction Severity Status enalapril Active penicillin RASH Active morphine itchy Active Bactrim 1 hyperkalemia Active Lidocaine, Topical Active 1Hyperkalemia when used together with lisinopril Immunizations Given and Recorded Vaccine Date Status Refusal Reason [id number] 12y+ bivalent booster vax 05/25/22 Given influenza [...] 02/09/06 Gi zeny influenza virus vaccine, inactivated 05/06/04 Gi zeny zoster vaccine, inactivated 12/08/21 Given zoster vaccine, inactivated 09/15/21 Given SARS-CoV-2 mRNA ([id number]) vax 09/15/21 Given SARS-CoV-2 (COVID-19) mRNA BNT-162b2 [...] Maintenance, 05/25/22 12:08:00 EST, ER Tablet, [id number], Discontinue Motrin, 158, cm, 05/25/22 11:12:00... Start [...] Gm, 11 Refills, Maintenance, 07/21/21 12:43:00 EDT, [facility]/pharmacy #1026, 1 applicator Topically 2 times a day, 160, cm, 07/21/21 10:22:00 EDT, Height, 80.6, kg, 06/03/20 19:00:00 EST, Dry Weight Start Date: 07/21/21 Status: Ordered Baqsimi Two Pack 3 mg nasal powder = 3 mg, Naris, Right, Once, Please use for a low blood sugar emergency, may repeat in 15 minutes, #1 each, 3 Refills, Soft Stop, 03/09/22 11:35:00 EST, [facility]/pharmacy #0838, 160, cm, 03/09/22 10:43:00EST, Height, 78, kg, 01/14/22 19:37:00 EDT, Dry W... Start Date: 03/09/22 Status: Ordered Biotene Moisturizing Mouth oral spray See Instructions, [place] directly into mouth; spray is safe to [...] P.M. NEEDED & 1 TAB AT [facility], # 180 tablet, 1 Refills, Maintenance, 08/05/22 12:49:00 EDT, [facility], 158, cm, 07/12/22 11:54:00 EDT, Height, 76, kg, 05/07/22 6:04:00 ES... Start Date: 08/05/22 Status: Ordered capsaicin 0.025% topical cream 1 application, Topically, 3 times a day, # 35 Gm, 11 Refills, Maintenance, 07/21/21 12:26:00 EDT, Cream, [facility]/pharmacy #1026, 1 [...] capsule, 2 Refills, Maintenance, 08/05/22 12:49:00 EDT, [facility] STORE 88275, 158, cm, 07/12/22 11:54:00 EDT, Height, 76, kg, 05/07/22 6:04:00 EST, Dry Weight Start Date: 08/05/22 Status: Ordered famotidine 40 mg oral tablet 1 tablet = 40 mg, By Mouth, Daily at bedtime, If 40 mg tablet is not available, can be changed to 20 mg tablet 2 tablet at bedtime, # 90 tablet, 3 Refills, Maintenance, 07/12/21 18:53:00 EDT, Tablet,[facility]/pharmacy #1026, Discontinue 30- day supply presc... Start Date: 07/12/21 Stop Date: 07/07/22 Status: Ordered ferrous sulfate 325 mg oral tablet 1 tablet = 325 mg, By Mouth, Daily, May take with food to minimize abdominal discomfort. Do not take with milk. Take preferrably with juice., # 90 tablet, 3 Refills, Maintenance, 09/15/21 8:56:00 EDT, [facility]/pharmacy #1026, 160, cm, 09/15/21 8:15:00 EDT,... [...] tablet, 0 Refills, Maintenance, 07/08/22 9:47:00 EDT, [facility] STORE 43819, 158, cm, 06/16/22 11:27:00 EST, Height, 76, kg, 05/07/22 6:04:00 EST, Dry Weight Start Date: 07/08/22 Status: Ordered ketotifen 0.025% ophthalmic solution 1 drops, Eyes, Both, Every 12 hours, PRN as needed for eye allergy, # 7.5 mL, 11 Refills, Maintenance, 06/25/21 8:34:00 EDT, [facility]/pharmacy #1026, 1 drops Eyes, Both Every [...] 90 tablet, 3 Refills, 03/09/22 11:57:00 EST, [facility]/pharmacy #0838, 1 tablet By Mouth Daily before dinner,PRN:allergies, 160, cm, 03/09/22 10:43:00 EST, Height, 78, kg, 01/14/22 19:37:00 ED... Start Date: 03/09/22 Status: Ordered montelukast 10 mg oral tablet 10 mg, 1, tablet, By Mouth, Daily at bedtime, # 90 tablet, Refills 3, Tot. Refills 3, Maintenance, 03/09/22 11:37:00 EST, Route to Pharmacy Electronically, [facility]/pharmacy #0838, 160, cm, 03/09/22 10:43:00 EST, Height, 78, kg, 01/14/22 19:37:00 EDT, Dry... Start Date: 03/09/22 Stop Date: 03/04/23 Status: Ordered Norvasc 5 mg oral tablet 5 mg, 1, tablet, By Mouth, Daily, # 90 tablet, Refills 3, Tot. Refills 3, Maintenance, 03/09/22 11:54:00 EST, Route to Pharmacy Electronically, [facility]/pharmacy #0838, 160, cm, 03/09/22 10:43:00 EST, [...] mL, 3 Refills, Maintenance, 03/09/22 17:15:00 EST, [facility]/pharmacy #0838, 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 Start Date: 03/09/22 Status: Ordered Vyk-flg-ujiqe medical-grade oxford diabetic shoes, depth or hightop Nie-fsp-innhb medical-grade oxford diabetic shoes, depth or hightop, [...] tablet, 2 Refills, Maintenance, 03/09/2211:40:00 EST, Tablet, [facility]/pharmacy #0838, 160, cm, 03/09/22 10:43:00 EST, [...] 08/19/22 Stop Date: 09/16/22 Status: Ordered Pen [place], 32 G x 4 mm BD Ultra [...] 527 Gm,11 Refills, Maintenance, 03/09/22 11:39:00 EST, [facility]/pharmacy #0838, 17- 34 Gm By Mouth [...] the same time every day Given by Radiology Aide, Dr. Michael Berkowitz, # 60 each, 0 [...] Gm, 5 Refills, Maintenance, 03/09/22 11:55:00 EST, [facility]/pharmacy #0838, 2 Gm Topically 4 times a day,x14 days, 160, cm, 03/09/22 10:43:00 EST, Height, 78, kg, 01/14/22 19:37:00 EDT, Dry Weight Start Date: 03/09/22 Stop Date: 06/01/22 Status: Ordered [place] Reusable Bed Pad 34 x 36 [place] Reusable Bed Pad 34 x 36 , [...] Confirmed 12/29/11 Active Hepatitis C Confirmed Active [facility] current use of opiate analgesic-LBP 12 Confirmed [...] Osteopenia 18, 19, 20 Confirmed 11/16/12 Active *[phone] Director Of Transportation Karine More Confirmed Active Peripheral venous insufficiency [...] 1 11left mild sensorineural hearing loss by [facility] Hearing Evaluation on 12/29/11 12Narcotic contract [...] parathyroidectomy. 06/16/08 SURGEON: Danny Marie M.D. ROPE MACHINE SETTER: Naima Bowling M.D. 22b/l submassive PE diagnosed on Dec 20 in [facility] 23TTE 12/22/15 in [facility]: RV dilatation, RVSP 46 24Per ECHO 05/24/17 Trace mitral regurgitation , trace TC regurgitation w no significant valve pathology 25meg colo July 2009 exc for 2 hyperplastic polyps 26Colonoscopy 2004 at [facility] [place] per letter of Dr Amor Dobbins Social History Social History Type Response Smoking Status Never (less than 100 in lifetime) entered on: 10/22/20 Sex Patient Care team information Care Team Personnel Name: Diamond Weiss RN Position: [facility] RN Member Role: Primary Care Nurse Name: Tiara Cavazos RN Position: [facility] OB RN Member Role: Primary Care Nurse Name: Shreya Boss RN Position: [facility] RN Member Role: Primary Care Nurse Name: Jaylin Hernandez RN Position: [facility] Onco RN Member Role: Primary Care Nurse Name: Glen Cota MD Position: [facility] Renal MD Member Role: Lifetime Consulting Physician Address: Address: [address] [place] [address] [facility] [place] [address]- Name: Florinda Trinh MD Position: [facility] Physician - Primary Care Member Role: PCP Address: Address: [address] [place] [address] Care Team Related Persons Name: JOSE ELIAS TODD Address: [place] [address] Name: JOSE ELIAS KIRKLAND Address: home [address] [place] [address] Name: LEONIE SCHRADER Address: [place] [address]
--- OUTSIDE RECORDS SUMMARY | 2023-10-23 09:50 | XMS_ITS | Continuity of Care Document ---
Author Organization [facility] Address [address] [place] [address]- Care Team Providers Care Sales Secretary Name Role Phone Massimo Figueroa Primary Care Physician Encounter [facility] Date(s): 01/26/23 - 02/25/23 [facility] [address] [place] [address]- Attending Physician: Yaya Patino Admitting Physician: Yaya Paitno Referring Physician: AdmtrYaya Allergies, Adverse Reactions, Alerts [...] virus vaccine, inactivated 6 05/06/04 Gi zeny [id number] 12y+ bivalent booster vax 05/25/22 Given zoster vaccine, inactivated 12/08/21 Given zoster vaccine, inactivated 09/15/21 Given SARS-CoV-2 mRNA (qxhmklr-[id number]-ekgrp) vax 09/15/21 Given SARS-CoV-2 (COVID-19) mRNA BNT-162b2 [...] Refills, Maintenance, 05/25/22 12:08:00 EST, ER Tablet, [facility]/pharmacy #[id number], Discontinue Motrin, 158, cm, 05/25/22 11:12:00... Start [...] Gm, 11 Refills, Maintenance, 07/21/21 12:43:00 EDT, [facility]/pharmacy #1026, 1 applicator [...] 3 Refills, Soft Stop, 03/09/22 11:35:00 EST, [facility]/pharmacy #0838, 160, cm, 03/09/22 10:43:00EST, Height, 78, kg, 01/14/22 19:37:00 EDT, Dry W... Start Date: 03/09/22 Status: Ordered Biotene Moisturizing Mouth oral spray See Instructions, [place] directly into mouth; spray is safe to swallow as needed for dry mouth, # 45mL, 11 Refills, Maintenance, 05/25/22 12:42:00 EST, [facility]/pharmacy #[id number], Partial fill upon patient request [...] P.M. NEEDED & 1 TAB AT [facility], # 180 tablet, 1 Refills, Maintenance, 08/05/22 12:49:00 EDT, [facility], 158, cm, 07/12/22 11:54:00 EDT, Height, 76, kg, 05/07/22 6:04:00 ES... Start Date: 08/05/22 Status: Ordered capsaicin 0.025% topical cream 1 application, Topically, 3 times a day, # 35 Gm, 11 Refills, Maintenance, 07/21/21 12:26:00 EDT, Cream, [facility]/pharmacy #1026, 1 application [...] 11 Refills, Maintenance, 12/06/21 15:04:00 EDT, Tablet, [facility], Partial fill upon patient request [...] tablet, 3 Refills, Maintenance, 07/12/21 18:53:00 EDT, Tablet,[facility]/pharmacy #1026, Discontinue 30- day supply presc... Start Date: 07/12/21 Stop Date: 07/07/22 Status: Ordered ferrous sulfate 325 mg oral tablet 1 tablet = 325 mg, By Mouth, Daily, May take with food to minimize abdominal discomfort. Do not take with milk. Take preferrably with juice., # 90 tablet, 3 Refills, Maintenance, 09/15/21 8:56:00 EDT, [facility]/pharmacy #1026, 160, cm, 09/15/21 8:15:00 EDT,... [...] Refills, Maintenance, 07/08/22 9:47:00 EDT, [id number], 158, cm, 06/16/22 11:27:00 EST, Height, 76, [...] 03/09/22 11:37:00 EST, Route to Pharmacy Electronically, [facility]/pharmacy #0838, 160, cm, 03/09/22 10:43:00 EST, [...] 03/09/22 11:54:00 EST, [id number] 160, cm, 03/09/22 10:43:00 EST, Height, [...] # 15... Start Date: 11/24/22 Status: Ordered Hpj-ynx-zrixe medical-grade oxford diabetic shoes, depth or hightop Zby-efj-yehsd medical-grade oxford diabetic shoes, depth or hightop, [...] DOLOR Start Date: 11/24/22 Status: Ordered Pen [place], 32 G x 4 mm BD Ultra [...] 527 Gm,11 Refills, Maintenance, 03/09/22 11:39:00 EST, [facility]/pharmacy #0838, 17- 34 Gm By Mouth [...] 4 Refills, Maintenance, 11/24/22 9:55:00 EDT, Tablet, [facility]/pharmacy #0838, Partial fill upon patient request [...] 15 mL, 3 Refills, Maintenance, 02/24/2312:11:00 EST, [facility]/pharmacy #0838, Partial fill upon patient request [...] Date: 03/09/22 Stop Date: 06/01/22 Status: Ordered [place] Reusable Bed Pad 34 x 36 [place] Reusable Bed Pad 34 x 36 , [...] Confirmed 12/29/11 Active Hepatitis C Confirmed Active residential current use of opiate analgesic-LBP 12 Confirmed [...] Osteopenia 18, 19, 20 Confirmed 11/16/12 Active *[id number] Fork Truck Driver Karine More Confirmed Active 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 6insulin dependent 7Per ECHO 05/24/1718 Grade [...] 1 11left mild sensorineural hearing loss by [facility] Hearing Evaluation on 12/29/11 12Narcotic contract w [...] lower parathyroidectomy. 06/16/08 SURGEON: Danny Marie M.D. CAFE SITE ATTENDANT: Naima Bowling M.D. 22b/l submassive PE diagnosed on Dec [address] [facility] 23TTE 12/22/[address] [facility]: RV dilatation, RVSP 46 24Per ECHO 05/24/17 Trace mitral regurgitation , trace TC regurgitation w no significant valve pathology 25meg colo July 2009 exc for 2 hyperplastic polyps 26Colonoscopy 2004 at [facility] [place] per letter of Dr Amor Dobbins Social History Social History Type Response Smoking Status Never (less than 100 in lifetime) entered on: 10/22/20 Sex Patient Care team information Care Team Personnel Name: Massimo Figueroa Position: [facility] Outreach Member Role: PCP Address: Address: [address] [place] [address]- Name: Diamond Weiss RN Position: S RN Member Role: Primary Care Nurse Name: Tiara Cavazos RN Position: [facility] OB RN Member Role: Primary Care Nurse Name: Shreya Boss RN Position: S RN Member Role: Primary Care Nurse Name: Dhruv Khan RN Position: S RN Member Role: Primary Care Nurse Name: Virginia Benson RN Position: [facility] SN RN Member Role: Primary Care Nurse Name: Jaylin Hernandez RN Position: [facility] Onco RN Member Role: Primary Care Nurse Name: Glen Cota MD Position: [facility] Renal MD Member Role: Lifetime Consulting Physician Address: Address: [address] [place] [address] [facility] [address] Name: Carole Toro LPN Position: [facility] RN Member Role: Primary Care Nurse Care Team Related Persons Name: JOSE ELIAS TODD Address: [place] [address] Name: JOSE ELIAS KIRKLAND Address: home [address] [place] [id number] Name: LEONIE SCHRADER Address: [place] [address]
--- OUTSIDE RECORDS SUMMARY | 2023-10-23 09:50 | XMS_ITS | Continuity of Care Document ---
Author Organization [facility] Address [address] [place] [address]- Care Team Providers Care Business Banking Sales Assistant Name Role Phone Florinda Trinh MD Primary Care Physician Encounter [facility] Date(s): 10/05/22 - 11/20/22 [facility] [address] [place] [address]- Attending Physician: Samira Falcon MD Admitting Physician: Samira Falcon MD Referring Physician: Florinda Trinh MD Allergies, Adverse Reactions, Alerts Substance Reaction Severity Status enalapril Active penicillin RASH Active Lidocaine, Topical Active morphine itchy Active Bactrim 1 hyperkalemia Active 1Hyperkalemia when used together with lisinopril Immunizations Given and Recorded Vaccine Date Status Refusal Reason [id number] 12y+ bivalent booster vax 05/25/22 Given influenza [...] zoster vaccine, inactivated 09/15/21 Given SARS-CoV-2 mRNA (pmkyegy-dsui-yzufy) vax 09/15/21 Given SARS-CoV-2 (COVID-19) mRNA BNT-162b2 [...] 11 Refills, Maintenance, 07/21/21 12:43:00 EDT, [facility]/pharmacy #1026, 1 [...] Refills, Soft Stop, 03/09/22 11:35:00 EST, [facility]/pharmacy #0838, 160, cm, 03/09/22 10:43:00EST, Height, 78, kg, 01/14/22 19:37:00 EDT, Dry W... Start Date: 03/09/22 Status: Ordered Biotene Moisturizing Mouth oral spray See Instructions, [place] directly into mouth; spray is safe to [...] P.M. NEEDED & 1 TAB AT [facility], # 180 tablet, 1 Refills, Maintenance, 08/05/22 12:49:00 EDT, [facility], 158, cm, 07/12/22 11:54:00 EDT, Height, 76, kg, 05/07/22 6:04:00 ES... Start Date: 08/05/22 Status: Ordered capsaicin 0.025% topical cream 1 application, Topically, 3 times a day, # 35 Gm, 11 Refills, Maintenance, 07/21/21 12:26:00 EDT, Cream, [facility]/pharmacy #1026, 1 [...] Refills, Maintenance, 12/06/21 15:04:00 EDT, Tablet, [facility], Partial fill upon patient request if the prescription is for a schedule II opioid drug., 160, cm, 11/23/21 14:47:00 ED... Start Date: 12/06/21 Status: Ordered esomeprazole 40 mg oral enteric coated capsule See Instructions, TAKE 1 CAPSULE BY MOUTH DAILY 30 MINUTES BEFORE BREAKFAST, # 30 capsule, 2 Refills, Maintenance, 11/09/22 10:47:00 EDT, [id number], 158, cm, 07/12/22 11:54:00 EDT, Height, 76, kg, 05/07/22 6:04:00 EST, Dry Weight Start Date: 11/09/22 Status: Ordered famotidine 40 mg oral tablet 1 tablet = 40 mg, By Mouth, Daily at bedtime, If 40 mg tablet is not available, can be changed to 20 mg tablet 2 tablet at bedtime, # 90 tablet, 3 Refills, Maintenance, 07/12/21 18:53:00 EDT, Tablet,[facility], Discontinue 30- day supply presc... Start Date: 07/12/21 Stop Date: 07/07/22 Status: Ordered ferrous sulfate 325 mg oral tablet 1 tablet = 325 mg, By Mouth, Daily, May take with food to minimize abdominal discomfort. Do not take with milk. Take preferrably with juice., # 90 tablet, 3 Refills, Maintenance, 09/15/21 8:56:00 EDT, [facility]/pharmacy #1026, 160, cm, 09/15/21 8:15:00 [...] tablet, 0 Refills, Maintenance, 07/08/22 9:47:00 EDT, [facility], 158, cm, 06/16/22 11:27:00 EST, Height, 76, [...] tablet, 3 Refills, 03/09/22 11:57:00 EST, [facility]/pharmacy #0838, 1 tablet By Mouth Daily before dinner,PRN:allergies, 160, cm, 03/09/22 10:43:00 EST, Height, 78, kg, 01/14/22 19:37:00 ED... Start Date: 03/09/22 Status: Ordered montelukast 10 mg oral tablet 10 mg, 1, tablet, By Mouth, Daily at bedtime, # 90 tablet, Refills 3, Tot. Refills 3, Maintenance, 03/09/22 11:37:00 EST, Route to Pharmacy Electronically, [facility]/pharmacy #0838, 160, cm, 03/09/22 10:43:00 EST, Height, 78, kg, 01/14/22 19:37:00 EDT, Dry... Start Date: 03/09/22 Stop Date: 03/04/23 Status: Ordered Norvasc 5 mg oral tablet 5 mg, 1, tablet, By Mouth, Daily, # 90 tablet, Refills 3, Tot. Refills 3, Maintenance, 03/09/22 11:54:00 EST, Route to Pharmacy Electronically, [facility]/pharmacy #0838, 160, cm, 03/09/22 10:43:00 [...] mL, 3 Refills, Maintenance, 03/09/22 17:15:00 EST, [facility]/pharmacy #0838, 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 Start Date: 03/09/22 Status: Ordered Zad-rpo-atcjp medical-grade oxford diabetic shoes, depth or hightop Lan-irg-puden medical-grade oxford diabetic shoes, depth or hightop, [...] tablet, 2 Refills, Maintenance, 03/09/2211:40:00 EST, Tablet, [facility]/pharmacy #0838, 160, cm, 03/09/22 10:43:00 EST, Height, 78, kg, 01/14/22 19:37:00 EDT, Dry Weight Start Date: 03/09/22 Status: Ordered Pen [place], 32 G x 4 mm BD Ultra [...] 527 Gm,11 Refills, Maintenance, 03/09/22 11:39:00 EST, [facility]/pharmacy #0838, 17- 34 Gm By Mouth Daily,PRN:asneeded [...] pairs, .. Start Date: 07/21/21 Status: Ordered TENS electrode pads TENS electrode pads, See Instructions, # 1 each, Refills 5, Tot. Refills 5, Maintenance, use as directed for back pain Dx LBP M54.9 1 box of 4, 08/27/21 14:17:00 EDT, Compound Start Date: 08/27/21 Status: Ordered Trelegy Ellipta inhalation powder 1 puffs, Inhalation, Daily, at the same time every day Given by Manager Pulmonary, Dr. 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 06/16/08 SURGEON: Danny Marie M.D. WINDOW CASER: Naima Bowling M.D. 22b/l submassive PE diagnosed [...] [facility] [place] per letter of Dr Amor Dobbins Social [...] Care Nurse Name: Mary RN, Jaylin Position: [facility] Onco RN Member Role: Primary Care Nurse Name: Glen Cota MD Position: [facility] Renal MD Member Role: Lifetime Consulting Physician Address: Address: [address] [place] [address] [facility] [address] Name: Florinda Trinh MD Position: [facility] Physician - Primary Care Member Role: PCP Address: Address: [address] [place] [address] Care Team Related Persons Name: JOSE ELIAS TODD Address: [place] [address] Name: JOSE ELIAS KIRKLAND Address: home [address] [place] [id number] Name: LEONIE SCHRADER Address: [place] [address]
--- OUTSIDE RECORDS SUMMARY | 2023-10-23 09:50 | XMS_ITS | Continuity of Care Document ---
Author Organization [facility] Address Unknown Care Team Providers Care Custom Protection Officer Name Role Phone Gayathri GARZA, Florinda Primary Care Physician [place] [facility] [place] 04/14/21 - 05/14/21 [facility] Allergies, Adverse Reactions, Alerts Substance [...] tablet, 11 Refills, Maintenance, 04/28/21 13:24:00 EST, [facility]/pharmacy #1026, 160, cm, 04/28/21 [...] Gm, 11 Refills, Maintenance, 01/27/20 19:13:00 EDT, [facility]/pharmacy #1026, 1 applicator Topically [...] 3 Refills, Soft Stop, 06/26/20 7:30:00 EDT, [facility]/pharmacy #1026, Partial fill upon [...] 11 Refills, Maintenance, 02/10/20 11:22:00 EST, Cream, [facility]/pharmacy #1026, 1 application Topically [...] 11 Refills, Maintenance, 04/21/21 18:12:00 EST, Tablet, [facility]/pharmacy #1026, 160, cm, 03/03/21 11:23:00 EST, Height, 80.6, kg, 06/03/20 19:00:00 EST, Dry Weight Start Date: 04/21/21 Status: Ordered escitalopram 20 mg oral tablet 1 tablet = 20 mg, By Mouth, Daily, Discontinue duloxetine 60 mg, # 30 tablet, 11 Refills, Maintenance, 12/09/20 11:15:00 EDT, Tablet, [facility]/pharmacy #1026, Partial fill upon [...] tablet, 3 Refills, Maintenance, 06/30/20 14:55:00 EDT, Tablet,[facility]10[facility], Discontinue 30- day [...] 04/28/21 14:34:00 EST, Route to Pharmacy Electronically, [facility]/pharmacy #1026, Can use with [...] capsule, 3 Refills, Maintenance, 10/22/20 10:35:00 EDT, [facility]/pharmacy #1026, 160, cm, 10/22/20 9:15:00 EDT, Height, 80.6, kg, 06/03/20 19:00:00 EST, Dry Weight Start Date: 10/22/20 Stop Date: 10/17/21 Status: Ordered ketotifen 0.025% ophthalmic solution 1 drops, Eyes, Both, Every 12 hours, PRN as needed for eye allergy, # 7.5 mL, 11 Refills, Maintenance, 01/27/20 19:13:00 EDT, [facility]/pharmacy #1026, 1 drops Eyes, [...] 78.8, kg,... Start Date: 01/21/20 Status: Ordered Hcw-tjb-wkcvx medical-grade oxford diabetic shoes, depth or hightop Euh-mrl-irctu medical-grade oxford diabetic shoes, depth or hightop, [...] 04/19/21 Stop Date: 05/17/21 Status: Ordered Pen [place], 32 G x 4 mm BD Ultra [...] 04/28/21 14:02:00 EST, Route to Pharmacy Electronically, [facility]/pharmacy #1026, 160... Start Date: [...] 527 Gm,11 Refills, Maintenance, 01/27/20 19:13:00 EDT, [facility]/pharmacy #1026, 17- 34 Gm [...] 11 Refills, Maintenance, 04/28/21 14:03:00 EST, Tablet, [facility]/pharmacy #1026, 160, cm, 04/28/21 9:50:00 EST, Height, 80.6, kg, 06/03/20 19:00:00 EST, Dry Weight Start Date: 04/28/21 Status: Ordered Senna-Time 8.6 mg oral tablet 2 tablet, By Mouth, 2 times a day, PRN NEEDED FOR CONSTIPATION,INSTR, DISCONTINUE DOCUSATE, # 60tablet, 11 Refills, [facility], 160, cm, 03/03/21 11:23:00 EST, Height, 80.6, [...] 02/22/21 17:50:00 EST, Route to Pharmacy Electronically, [facility]/pharmacy #1026, 1... Start Date: [...] 02/15/21 11:39:00 EST, Route to Pharmacy Electronically, [facility]/pharmacy #1026,Partial fill upon patient request if the prescrip... Start Date: 02/15/21 Stop Date: 03/29/21 Status: Ordered Trelegy Ellipta inhalation powder 1 puffs, Inhalation, Daily, at the same time every day given by advertising sales associate , Dr Berkowitz, # 60 each, [...] Date: 02/15/21 Stop Date: 05/10/21 Status: Ordered [place] Reusable Bed Pad 34 x 36 [place] Reusable Bed Pad 34 x 36 , [...] apnea)(Confirmed) Active Osteopenia(Confirmed) 18, 19 11/16/12 Active *[id number] [facility] Partn igor [place](Confirmed) Active Peripheral venous insufficiency(Confirmed) [...] 2 peroneal veins diagnosed on Dec 20 [facility] 6insulin dependent 7Per ECHO 05/24/1718 [...] 11left mild sensorineural hearing loss by [facility] Hearing Evaluation on 12/29/11 12Narcotic [...] lower parathyroidectomy. 06/16/08 SURGEON: Danny Marie M.D. CREDIT CONTROL MANAGER: Naima Bowling M.D. 21b/l submassive PE diagnosed on Dec 20 in [facility] 22TTE 12/22/15 in [facility]: RV dilatation, RVSP 46 23Per ECHO 05/24/17 Trace mitral regurgitation , trace TC regurgitation w no significant valve pathology 24meg colo July 2009 exc for 2 hyperplastic polyps 25Colonoscopy 2004 at [facility] [place] per letter of Dr Amor Dobbins Social History Social History Type Response Smoking Status Never (less than 100 in lifetime) entered on: 10/22/20 Sex
--- OUTSIDE RECORDS SUMMARY | 2023-10-23 09:50 | XMS_ITS | Continuity of Care Document ---
Author Organization [facility] Address Unknown Care Team Providers Care Traffic Expert Name Role Phone Gayathri GARZA, Florinda Primary Care Physician Encounter [facility] Date(s): 04/20/21 - 05/20/21 [facility] Allergies, Adverse Reactions, Alerts Substance [...] or fever, (not to exceed 2000 mg/day) honduran, # 100 tablet, 11 Refills, Maintenance, 04/28/21 13:24:00 EST, [facility]/pharmacy #1026, 160, cm, 04/28/21 9:50:00 [...] 11 Refills, Maintenance, 01/27/20 19:13:00 EDT, [facility]/pharmacy #1026, 1 [...] Refills, Soft Stop, 06/26/20 7:30:00 EDT, [facility]/pharmacy #1026, Partial [...] Refills, Maintenance, 02/10/20 11:22:00 EST, Cream, [facility]/pharmacy #1026, 1 [...] Refills, Maintenance, 04/21/21 18:12:00 EST, Tablet, [facility]/pharmacy #1026, 160, cm, 03/03/21 11:23:00 EST, Height, 80.6, kg, 06/03/20 19:00:00 EST, Dry Weight Start Date: 04/21/21 Status: Ordered escitalopram 20 mg oral tablet 1 tablet = 20 mg, By Mouth, Daily, Discontinue duloxetine 60 mg, # 30 tablet, 11 Refills, Maintenance, 12/09/20 11:15:00 EDT, Tablet, [facility]/pharmacy #1026, Partial fill [...] 3 Refills, Maintenance, 06/30/20 14:55:00 EDT, Tablet,[facility]/pharmacy #1026, Discontinue [...] 14:34:00 EST, Route to Pharmacy Electronically, [facility]/pharmacy #1026, Can use with HCTZ, [...] 3 Refills, Maintenance, 10/22/20 10:35:00 EDT, [facility]/pharmacy #1026, 160, cm, 10/22/20 9:15:00 EDT, Height, 80.6, kg, 06/03/20 19:00:00 EST, Dry Weight Start Date: 10/22/20 Stop Date: 10/17/21 Status: Ordered ketotifen 0.025% ophthalmic solution 1 drops, Eyes, Both, Every 12 hours, PRN as needed for eye allergy, # 7.5 mL, 11 Refills, Maintenance, 01/27/20 19:13:00 EDT, [facility]/pharmacy #1026, 1 [...] 78.8, kg,... Start Date: 01/21/20 Status: Ordered Rmb-lky-oggps medical-grade oxford diabetic shoes, depth or hightop Fut-utd-hmqbk medical-grade oxford diabetic shoes, depth or hightop, [...] 07/12/21 Stop Date: 08/09/21 Status: Ordered Pen [place], 32 G x 4 mm BD [...] 14:02:00 EST, Route to Pharmacy Electronically, [facility]/pharmacy #1026, 160... Start Date: 04/28/21 [...] Refills, Maintenance, 04/28/21 14:03:00 EST, Tablet, [facility]/pharmacy #1026, 160, cm, 04/28/21 9:50:00 EST, Height, 80.6, kg, 06/03/20 19:00:00 EST, Dry Weight Start Date: 04/28/21 Status: Ordered Senna-Time 8.6 mg oral tablet 2 tablet, By Mouth, 2 times a day, PRN NEEDED FOR CONSTIPATION,INSTR, DISCONTINUE DOCUSATE, # 60tablet, 11 Refills, [facility] [id number], 160, cm, 03/03/21 11:23:00 EST, Height, 80.6, [...] 17:50:00 EST, Route to Pharmacy Electronically, [facility]/pharmacy #1026, 1... Start Date: 02/22/21 [...] 11:39:00 EST, Route to Pharmacy Electronically, [facility]/pharmacy #1026,Partial fill upon patient request if the prescrip... 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 06/16/08 SURGEON: Danny Marie M.D. CASE OPERATOR: Naima Bowling M.D. 21b/l submassive PE diagnosed on Dec 20 in [facility] 22TTE 12/22/15 in [facility]: RV dilatation, RVSP 46 23Per ECHO 05/24/17 Trace mitral regurgitation , trace TC regurgitation w no significant valve pathology 24meg colo July 2009 exc for 2 hyperplastic polyps 25Colonoscopy 2004 at [facility] [place] per letter of Dr Amor Dobbins Social History Social History Type Response Smoking Status Never (less than 100 in lifetime) entered on: 10/22/20 Sex
--- OUTSIDE RECORDS SUMMARY | 2023-10-23 09:50 | XMS_ITS | Continuity of Care Document ---
Author Organization [facility] Address [address] [place] [address]- Care Team Providers Care Barrel Line Operator Name Role Phone Gayathri GARZA, Florinda Primary Care Physician En[place] [facility] [place](s): 08/11/22 - 09/10/22 [facility] [address] [place] [address]- Allergies, Adverse Reactions, Alerts Substance Reaction Severity Status enalapril Active penicillin RASH Active morphine itchy Active Bactrim 1 hyperkalemia Active Lidocaine, Topical Active 1Hyperkalemia when used together with lisinopril Immunizations Given and Recorded Vaccine Date Status Refusal Reason [id number] 12y+ bivalent booster vax 05/25/22 Given influenza [...] zoster vaccine, inactivated 09/15/21 Given SARS-CoV-2 mRNA (ualaosu-nuqa-kyaez) vax 09/15/21 Given SARS-CoV-2 (COVID-19) mRNA BNT-162b2 [...] by melissa craft 6Admin Note: ADMINISTERED BY RLizbetNLizbet 7Result Comment: Masood RUVALCABA RN 8Result Comment: [...] Gm, 11 Refills, Maintenance, 07/21/21 12:43:00 EDT, [facility]/pharmacy #[id number], 1 applicator Topically 2 [...] Biotene Moisturizing Mouth oral spray See Instructions, [place] directly into mouth; spray is safe to [...] P.M. NEEDED & 1 TAB AT [facility], # 180 tablet, 1 Refills, Maintenance, 08/05/22 12:49:00 EDT, [id number], 158, cm, 07/12/22 11:54:00 EDT, Height, 76, kg, 05/07/22 6:04:00 ES... Start Date: 08/05/22 Status: Ordered capsaicin 0.025% topical cream 1 application, Topically, 3 times a day, # 35 Gm, 11 Refills, Maintenance, 07/21/21 12:26:00 EDT, Cream, [facility]/pharmacy #1026, 1 application Topically 3 [...] 11 Refills, Maintenance, 12/06/21 15:04:00 EDT, Tablet, [facility], Partial fill upon patient request if the prescription is for a schedule II opioid drug., 160, cm, 11/23/21 14:47:00 ED... Start Date: 12/06/21 Status: Ordered esomeprazole 40 mg oral enteric coated capsule See Instructions, TAKE 1 CAPSULE BY MOUTH DAILY 30 MINUTES BEFORE BREAKFAST, # 30 capsule, 2 Refills, Maintenance, 08/05/22 12:49:00 EDT, [facility] STORE [id number], 158, cm, 07/12/22 11:54:00 EDT, Height, 76, kg, 05/07/22 6:04:00 EST, Dry Weight Start Date: 08/05/22 Status: Ordered famotidine 40 mg oral tablet 1 tablet = 40 mg, By Mouth, Daily at bedtime, If 40 mg tablet is not available, can be changed to 20 mg tablet 2 tablet at bedtime, # 90 tablet, 3 Refills, Maintenance, 07/12/21 18:53:00 EDT, Tablet,[facility]/pharmacy #1026, Discontinue 30- day supply presc... Start Date: 07/12/21 Stop Date: 07/07/22 Status: Ordered ferrous sulfate 325 mg oral tablet 1 tablet = 325 mg, By Mouth, Daily, May take with food to minimize abdominal discomfort. Do not take with milk. Take preferrably with juice., # 90 tablet, 3 Refills, Maintenance, 09/15/21 8:56:00 EDT, [facility]/pharmacy #1026, 160, cm, 09/15/21 8:15:00 [...] tablet, 0 Refills, Maintenance, 07/08/22 9:47:00 EDT, [facility] STORE [id number], 158, cm, 06/16/22 11:27:00 EST, Height, 76, kg, 05/07/22 6:04:00 EST, Dry Weight Start Date: 07/08/22 Status: Ordered ketotifen 0.025% ophthalmic solution 1 drops, Eyes, Both, Every 12 hours, PRN as needed for eye allergy, # 7.5 mL, 11 Refills, Maintenance, 06/25/21 8:34:00 EDT, [facility]/pharmacy #1026, 1 drops Eyes, Both [...] 90 tablet, 3 Refills, 03/09/22 11:57:00 EST, [facility]/pharmacy #0838, 1 tablet By Mouth Daily before dinner,PRN:allergies, 160, cm, 03/09/22 10:43:00 EST, Height, 78, kg, 01/14/22 19:37:00 ED... Start Date: 03/09/22 Status: Ordered montelukast 10 mg oral tablet 10 mg, 1, tablet, By Mouth, Daily at bedtime, # 90 tablet, Refills 3, Tot. Refills 3, Maintenance, 03/09/22 11:37:00 EST, Route to Pharmacy Electronically, [facility]/pharmacy #0838, 160, cm, 03/09/22 10:43:00 EST, Height, 78, kg, 01/14/22 19:37:00 EDT, Dry... Start Date: 03/09/22 Stop Date: 03/04/23 Status: Ordered Norvasc 5 mg oral tablet 5 mg, 1, tablet, By Mouth, Daily, # 90 tablet, Refills 3, Tot. Refills 3, Maintenance, 03/09/22 11:54:00 EST, Route to Pharmacy Electronically, [facility]/pharmacy #0838, 160, cm, 03/09/22 10:43:00 [...] mL, 3 Refills, Maintenance, 03/09/22 17:15:00 EST, [facility]/pharmacy #0838, 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 Start Date: 03/09/22 Status: Ordered Dny-ffz-xgnho medical-grade oxford diabetic shoes, depth or hightop Zkn-jlf-ahjnt medical-grade oxford diabetic shoes, depth or hightop, [...] tablet, 2 Refills, Maintenance, 03/09/2211:40:00 EST, Tablet, [facility]/pharmacy #0838, 160, cm, 03/09/22 10:43:00 [...] 08/19/22 Stop Date: 09/16/22 Status: Ordered Pen [place], 32 G x 4 mm BD Ultra [...] tablet, 11 Refills, Maintenance, 03/09/22 11:39:00 EST, [facility]/pharmacy #0838, 160, cm, 03/09/22 10:43:00 [...] the same time every day Given by Industrial Relations Counselor, Dr. Michael Berkowitz, # 60 each, 0 Refills, Maintenance, 07/21/21 11:59:00 EDT, Powder, Partial fill upon patient request if the prescription is for a schedule II opi... Start Date: 07/21/21 Status: Ordered Tresiba FlexTouch 200 units/mL subcutaneous solution See Instructions, INJECT 42 UNITS DAILY AT 9PM E11.9 90 day, # 21 mL, 3 Refills, 03/09/22 17:14:00 EST, [facility]/pharmacy #0838, 160, cm, 03/09/22 10:43:00 [...] Gm, 5 Refills, Maintenance, 03/09/22 11:55:00 EST, [facility]/pharmacy #0838, 2 Gm Topically 4 times a day,x14 days, 160, cm, 03/09/22 10:43:00 EST, Height, 78, kg, 01/14/22 19:37:00 EDT, Dry Weight Start Date: 03/09/22 Stop Date: 06/01/22 Status: Ordered [place] Reusable Bed Pad 34 x 36 [place] Reusable Bed Pad 34 x 36 [...] Confirmed 12/29/11 Active 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 06/16/08 SURGEON: Danny Marie M.D. INORGANIC CHEMISTRY PROFESSOR: Naima Bowling M.D. 22b/l submassive PE diagnosed on Dec 20 in [facility] 23TTE 12/22/15 in [facility]: RV dilatation, RVSP 46 24Per ECHO 05/24/17 Trace mitral regurgitation , trace TC regurgitation w no significant valve pathology 25meg colo July 2009 exc for 2 hyperplastic polyps 26Colonoscopy 2004 at [facility] [place] per letter of Dr Amor Dobbins Social History Social History Type Response Smoking Status Never (less than 100 in lifetime) entered on: 10/22/20 Sex Patient Care team information Care Team Personnel Name: Diamond Weiss RN Position: [facility] RN Member Role: Primary Care Nurse Name: Tiara Cavazos RN Position: [facility] OB RN Member Role: Primary Care Nurse Name: Shreya Boss RN Position: [facility] RN Member Role: Primary Care Nurse Name: Jaylin Hernandez RN Position: [facility] Onco RN Member Role: Primary Care Nurse Name: Glen Cota MD Position: [facility] Renal MD Member Role: Lifetime Consulting Physician Address: Address: [address] [place] [address] [facility] [address] Name: Florinda Trinh MD Position: [facility] Physician - Primary Care Member Role: PCP Address: Address: [address] [place] [address] Care Team Related Persons Name: JOSE ELIAS TODD Address: [place] [address] Name: JOSE ELIAS KIRKLAND Address: home [address] [place] [address] Name: LEONIE SCHRADER Address: [place] [address]
--- OUTSIDE RECORDS SUMMARY | 2023-10-23 09:51 | XMS_ITS | Continuity of Care Document ---
Author Organization [facility] Address [address] [place] [address]- Care Team Providers Care Teletype Installer Name Role Phone Gayathri GARZA, Florinda Primary Care Physician [place] [facility] [place] 09[place]11/20 [facility] [address] [place] [address]- Allergies, Adverse Reactions, Alerts Substance Reaction Severity [...] sinhala, # 100 tablet, 11 Refills, Maintenance, 08/14/20 [...] 07/16/20 15:26:00 EDT, Route to Pharmacy Electronically, [facility]/pharmacy #1026, 160, cm, 06/12/20 9:01... Start Date: 07/16/20 Status: Ordered ammonium lactate 12% topical cream 1 applicator, Topically, 2 times a day, # 280 Gm, 11 Refills, Maintenance, 01/27/20 19:13:00 EDT, [facility]/pharmacy #1026, 1 applicator Topically [...] 3 Refills, Soft Stop, 06/26/20 7:30:00 EDT, [facility]/pharmacy #1026, Partial fill upon patient request if the prescription is for a schedule II op... Start Date: 06/26/20 Status: Ordered calcium (as citrate)-vitamin D 315 mg-250 intl units oral tablet 2 tablet, By Mouth, 2 times a day, for 30 days, calcium citrate, # 120 tablet, 11 Refills, Hard Stop 01/21/21 19:13:00 EDT, 01/27/20 19:13:00 EDT, Tablet, [facility]/pharmacy #1026, 167, cm, 01/13/20 8:54:00 EDT, Height, 78.8, kg, 01/01/20 3:41:00 EDT, Dry... Start Date: 01/27/20 Stop Date: 01/21/21 Status: Ordered capsaicin 0.025% topical cream 1 application, Topically, 3 times a day, # 90 Gm, 11 Refills, Maintenance, 02/10/20 11:22:00 EST, Cream, [facility]/pharmacy #1026, 1 application Topically [...] tablet, 1 Refills, Maintenance, 08/31/20 14:45:00 EDT, [facility]/pharmacy #1026, 160, cm, 08/14/20 [...] capsule, 0 Refills, Maintenance, 08/28/20 17:52:00 EDT, [facility]/pharmacy #1026, 160, cm, 08/14/20 9:34:00 EDT, Height, 80.6, kg, 06/03/20 19:00:00 EST, Dry Weight Start Date: 08/28/20 Stop Date: 11/26/20 Status: Ordered ketotifen 0.025% ophthalmic solution 1 drops, Eyes, Both, Every 12 hours, PRN as needed for eye allergy, # 7.5 mL, 11 Refills, Maintenance, 01/27/20 19:13:00 EDT, [facility]/pharmacy #1026, 1 drops Eyes, [...] 06/24/20 9:08:00 EDT, Route to Pharmacy Electronically, [facility]/pharmacy #1026, 160, cm, 06/12/20 9:01:00 EST, Height, 80... Start Date: 06/24/20 Status: Ordered NovoLOG FlexPen 100 units/mL subcutaneous solution See Instructions, Inject up to 26 untis via Insulin sliding scale 3x a day w/meals,MAX daily dose 78 units, E11.65, # 45 mL, 6 Refills, Maintenance, 01/21/20 14:30:00 EDT, [facility]/pharmacy #1026, 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 Start Date: 01/21/20 Status: Ordered Ukr-xia-smfyx medical-grade oxford diabetic shoes, depth or hightop Wcj-xlf-qhzdy medical-grade oxford diabetic shoes, depth or hightop, [...] 10/30/20 10:25:00 EDT, Route to Pharmacy Electronically, [facility]/pharmacy #1026, Part... Start Date: 10/30/20 Stop Date: 11/27/20 Status: Ordered oxyCODONE 5 mg oral tablet 5 mg, 1, tablet, By Mouth, Every 4 hours, for 28 days, PRN pain dispense not earlier than 11/27/20, # 168 tablet, Refills 0, Tot. Refills 0, Acute 12/25/20 10:25:00 EDT, 11/27/20 10:25:00 EDT, Route to Pharmacy Electronically, [facility]/pharmacy #1026, Part... Start Date: 11/27/20 Stop Date: 12/25/20 Status: Ordered oxyCODONE 5 mg oral tablet 5 mg, 1, tablet, By Mouth, Every 4 hours, for 28 days, PRN pain dispense not earlier than09/04/20, #168 tablet, Refills 0, Tot. Refills 0, Acute 10/02/20 10:25:00 EDT, 09/04/20 10:25:00 EDT, Route toPharmacy Electronically, [facility]/pharmacy #1026, Parti... Start Date: 09/04/20 Stop Date: 10/02/20 Status: Ordered oxyCODONE 5 mg oral tablet 5 mg, 1, tablet, By Mouth, Every 4 hours, for 28 days, PRN pain dispense not earlier than 10/02/20, # 168 tablet, Refills 0, Tot. Refills 0, Acute 10/30/20 10:25:00 EDT, 10/02/20 10:25:00 EDT, Route to Pharmacy Electronically, [facility]/pharmacy #1026, Part... Start Date: 10/02/20 Stop Date: 10/30/20 Status: Ordered Pen [place], 32 G x 4 mm BD Ultra [...] 527 Gm,11 Refills, Maintenance, 01/27/20 19:13:00 EDT, [facility]/pharmacy #1026, 17- 34 Gm [...] 02/10/20 11:22:00 EST, Route to Pharmacy Electronically, [facility]/pharmacy #1026 Tablet, 167, cm, [...] 05/01/20 9:28:00 EST, Route to Pharmacy Electronically, [facility]/pharmacy #1026, 167,... Start Date: [...] 08/14/20 10:39:00 EDT, Route to Pharmacy Electronically, [facility]/pharmacy #1026,Partial fill upon patient request if the prescrip... 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 06/16/08 SURGEON: Danny Marie M.D. DENTAL SALES REPRESENTATIVE: Naima Bowling M.D. 21b/l submassive PE diagnosed on Dec 20 in [facility] 22TTE 12/22/15 in [facility]: RV dilatation, RVSP 46 23Per ECHO 05/24/17 Trace mitral regurgitation , trace TC regurgitation w no significant valve pathology 24meg colo July 2009 exc for 2 hyperplastic polyps 25Colonoscopy 2004 at [facility] [place] per letter of Dr Amor Dobbins Social History Social History Type Response Smoking Status Never (less than 100 in lifetime) entered on: 09/10/20 Sex
--- OUTSIDE RECORDS SUMMARY | 2023-10-23 09:51 | XMS_ITS | Continuity of Care Document ---
Author Organization [facility] Address Unknown Care Team Providers Care Ventilator Specialist Name Role Phone Gayathri GARZA, Florinda Primary Care Physician Encounter [facility] [place] Date(s): 03/22/21 - 04/21/[address] [facility] Allergies, Adverse Reactions, Alerts Substance Reaction [...] exceed 2000 mg/day) mohawk, # 100 tablet, 1 Refills, Maintenance, 04/15/21 18:44:00 EST, [facility]/pharmacy #1026, 160, cm, 03/03/21 [...] 78.8, kg,... Start Date: 01/21/20 Status: Ordered Zws-sfl-bigyd medical-grade oxford diabetic shoes, depth or hightop Wbu-pbt-zjkco medical-grade oxford diabetic shoes, depth or hightop, [...] 04/19/21 Stop Date: 05/17/21 Status: Ordered Pen [place], 32 G x 4 mm BD [...] 30 tablet, 5 Refills, Maintenance, [facility], 160, cm, 10/22/20 9:15:00 EDT, Height, 80.6, kg, 06/03/20 19:00:00 EST, Dry Weight Start Date: 11/13/20 Status: Ordered Senna-Time 8.6 mg oral tablet 2 tablet, By Mouth, 2 times a day, PRN NEEDED FOR CONSTIPATION,INSTR, DISCONTINUE DOCUSATE, # 60tablet, 11 Refills, [facility], 160, cm, 03/03/21 11:23:00 EST, Height, 80.6, [...] the same time every day given by licensed funeral director , Dr Berkowitz, # 60 each, [...] Date: 02/15/21 Stop Date: 05/10/21 Status: Ordered [place] Reusable Bed Pad 34 x 36 [place] Reusable Bed Pad 34 x 36 , [...] Refills, Maintenance, 09/10/20 9:48:00 EDT, Tablet, [facility]/pharmacy #1026, Partial [...] apnea)(Confirmed) Active Osteopenia(Confirmed) 18, 19 11/16/12 Active *[id number] [facility] Karine Huntington(Confirmed) Active Peripheral venous insufficiency(Confirmed) 10/31/11 Active Positive [...] lower parathyroidectomy. 06/16/08 SURGEON: Danny Marie M.D. PSYCHOLOGIST ENGINEERING: Naima Bowling M.D. 21b/l submassive PE diagnosed on Dec 20 in [facility] 22TTE 12/22/15 in [facility]: RV dilatation, RVSP 46 23Per ECHO 05/24/17 Trace mitral regurgitation , trace TC regurgitation w no significant valve pathology meg colo July 2009 exc for 2 hyperplastic polyps 25Colonoscopy 2004 at [facility] [place] per letter of Dr Amor Dobbins Social History Social History Type Response Smoking Status Never (less than 100 in lifetime) entered on: 10/22/20 Sex
--- OUTSIDE RECORDS SUMMARY | 2023-10-23 09:51 | XMS_ITS | Continuity of Care Document ---
Author Organization [facility] Address [address] [place] [address]- Care Team Providers Care Fingerer Name Role Phone Gayathri GARZA, Florinda Primary Care Physician Encounter [facility] Date(s): 04/03/22 - 05/03/22 [facility] [address]- [place] Allergies, Adverse Reactions, Alerts Substance Reaction Severity Status penicillin RASH Active morphine itchy Active Bactrim 1 hyperkalemia Active Lidocaine, Topical Active 1Hyperkalemia when used together with lisinopril Immunizations Given and Recorded Vaccine Date Status Refusal Reason zoster vaccine, inactivated 12/08/21 Given zoster vaccine, inactivated 09/15/21 Given SARS-CoV-2 mRNA (izdjnvp-dvpx-danqr) vax 09/15/21 Given SARS-CoV-2 (COVID-19) mRNA BNT-162b2 [...] by melissa craft 8Admin Note: ADMINISTERED BY R.Lucille 9Result Comment: [...] 05/11/22 13:10:00 EST, 04/13/22 13:10:00 EST, Tablet, [facility], Partial fill upo... Start Date: 04/13/22 Stop Date: 05/11/22 Status: Ordered acetaminophen-hydrocodone 300 mg-7.5 mg oral tablet 2 tablet, By Mouth, Every 8 hours, for 28 days, for pain fill date 05/11/2022 Dx Chronic LBP, renal colic, # 168 tablet, 0 Refills, Acute 06/08/22 13:10:00 EST, 05/11/22 13:10:00 EST, Tablet, [facility], Partial fill upo... Start Date: 05/11/22 [...] needed for anxiety and 1tab at HS dyrujn-vao-cutlc, # 60 tablet, 11 Refills, Maintenance, 09/15/21 [...] 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 Start Date: 03/09/22 Status: Ordered Dkw-rdh-fnpxu medical-grade oxford diabetic shoes, depth or hightop Pcl-rum-phtil medical-grade oxford diabetic shoes, depth or hightop, [...] Weight Start Date: 03/09/22 Status: Ordered Pen [place], 32 G x 4 mm BD Ultra [...] the same time every day Given by Window Shade Ring Coverer, Dr. 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 06/16/08 SURGEON: Danny Marie M.D. HEALTH INFORMATION INTERNSHIP: Naima Bowling M.D. 22b/l submassive PE diagnosed on Dec 20 in [facility] 23TTE 12/22/15 in [facility]: RV dilatation, RVSP 46 24Per ECHO 05/24/17 Trace mitral regurgitation , trace TC regurgitation w no significant valve pathology 25meg colo July 2009 exc for 2 hyperplastic polyps 26Colonoscopy 2004 at [facility] [place] per letter of Dr Amor Dobbins Social History Social History Type Response Smoking Status Never (less than 100 in lifetime) entered on: 10/22/20 Sex Patient Care team information Care Team Personnel Name: Diamond Weiss RN Position: [facility] RN Member Role: Primary Care Nurse Name: Tiara Cavazos RN Position: [facility] OB RN Member Role: Primary Care Nurse Name: Shreya Boss RN Position: [facility] RN Member Role: Primary Care Nurse Name: Virginia Benson RN Position: [facility] RN Member Role: Primary Care Nurse Name: Jaylin Hernandez RN Position: [facility] Onco RN Member Role: Primary Care Nurse Name: Glen Cota MD Position: [facility] Renal MD Member Role: Lifetime Consulting Physician Address: Address: [address] [place] [address] [facility] [place] [address]- Name: Florinda Trinh MD Position: [facility] Primary Care Physician Member Role: PCP Address: Address: [address] [place] [address]- Care Team Related Persons Name: JOSE ELIAS TODD Address: [place] [address] Name: JOSE ELIAS KIRKLAND Address: home [address] [place] [id number] Name: LEONIE SCHRADER Address: [place] [address]
--- OUTSIDE RECORDS SUMMARY | 2023-10-23 09:51 | XMS_ITS | Continuity of Care Document ---
Author Organization [facility] Address [address] [place] [id number]- Care Team Providers Care Film Process Operator Name Role Phone Gayathri GARZA, Florinda Primary Care Physician [facility]counter [facility] Date(s): 04/16/20 - 05/16/20 [facility] [address] [address]- Allergies, Adverse Reactions, Alerts Substance Reaction Severity [...] or fever, (not to exceed 2000 mg/day) italian, # 100 tablet, 5 Refills, Maintenance, 01/22/20 [...] 01/21/21 19:13:00 EDT, 01/27/20 19:13:00 EDT, Tablet, [facility]/pharmacy #[id number], 167, cm, 01/13/20 8:54:00 EDT, Height, 78.8, kg, 01/01/20 3:41:00 EDT, Dry... Start Date: 01/27/20 Stop Date: 01/21/21 Status: Ordered capsaicin 0.025% topical cream 1 application, Topically, 3 times a day, # 90 Gm, 11 Refills, Maintenance, 02/10/20 11:22:00 EST, Cream, [facility]/pharmacy #[id number], 1 application Topically 3 [...] Refills, Maintenance, 01/27/20 19:13:00 EDT, EC Capsule, [facility]/pharmacy #1026, 167, cm, 01/13/20 8:54:00 EDT, Height, 78.8, kg, 01/01/20 3:41:00 EDT, Dry Weight Start Date: 01/27/20 Status: Ordered Eliquis 5 mg oral tablet 1 tablet = 5 mg, By Mouth, 2 times a day, # 60 tablet, 11 Refills, Maintenance, 02/10/20 11:22:00 EST, Tablet, [facility]/pharmacy #1026, 167, cm, 01/13/20 8:54:00 EDT, Height, 78.8, kg, 01/01/20 3:41:00 EDT, Dry Weight Start Date: 02/10/20 Status: Ordered enalapril 10 mg oral tablet 10 mg, 1, tablet, By Mouth, Daily, discontinue hydrochlorothiazide, # 30 tablet, Refills 11, Tot. Refills 11, Maintenance, 04/29/20 13:04:00 EST, Route to Pharmacy Electronically, [facility]/pharmacy #1026,167, cm, 04/29/20 9:24:00 EST, Height, 82, kg, 01... Start Date: 04/29/20 Status: Ordered famotidine 40 mg oral tablet 1 tablet = 40 mg, By Mouth, Daily at bedtime, If 40 mg tablet is not available, can change to 20 mgtablet 2 tablet at bedtime, # 30 tablet, 2 Refills, Maintenance, 04/04/20 16:07:00 EST, Tablet, [facility]/pharmacy #[id number], 167, cm, 02/24/20 17:04:00 EST, Hei... Start Date: 04/04/20 Status: Ordered ferrous sulfate 325 mg oral tablet 1 tablet = 325 mg, By Mouth, Daily, May take with food to minimize abdominal discomfort. Do not take with milk. Take preferrably with juice., # 90 tablet, 2 Refills, Maintenance, 01/22/20 9:38:00 EDT, [facility]/pharmacy #1026, 167, cm, 01/13/20 8:54:00 [...] capsule, 4 Refills, Maintenance, 01/22/20 9:39:00 EDT, [facility]/pharmacy #1026, 167, cm, 01/13/20 8:54:00 [...] 01/22/20 9:41:00 EDT, Route to Pharmacy Electronically, [facility]/pharmacy #[id number], 167, cm, 01/13/20 8:54:00 EDT, Height, 78... Start Date: 01/22/20 Status: Ordered NovoLOG FlexPen 100 units/mL subcutaneous solution See Instructions, Inject up to 26 untis via Insulin sliding scale 3x a day w/meals,MAX daily dose 78 units, E11.65, # 45 mL, 6 Refills, Maintenance, 01/21/20 14:30:00 EDT, [facility]/pharmacy #1026, 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 Start Date: 01/21/20 Status: Ordered Lvg-mfh-zmxll medical-grade oxford diabetic shoes, depth or hightop Num-vzn-djapo medical-grade oxford diabetic shoes, depth or hightop, [...] 07/10/20 Stop Date: 08/07/20 Status: Ordered Pen [place]ia, 32 G x 4 mm BD Ultra [...] 527 Gm,11 Refills, Maintenance, 01/27/20 19:13:00 EDT, [facility]/pharmacy #1026, 17- 34 Gm By [...] 02/10/20 11:22:00 EST, Route to Pharmacy Electronically, [facility]/pharmacy #1026 Tablet, 167, cm, 01/13/20 [...] 05/01/20 9:28:00 EST, Route to Pharmacy Electronically, [facility]/pharmacy #1026, 167,... Start Date: 05/01/20 [...] same time every day given by senior cost estimator , Dr Berkowitz, # 60 each, 0 [...] Dry Weight Start Date: 04/15/20 Status: Ordered [place] Reusable Bed Pad 34 x 36 [place] Reusable Bed Pad 34 x 36 , [...] apnea)(Confirmed) Active Osteopenia(Confirmed) 18, 19 11/16/12 Active *[id number] Care Partn igor More(Confirmed) Active Peripheral venous [...] sensorineural hearing loss by [facility] Hearing Evaluation on 12/29/11 12Narcotic contract [...] lower parathyroidectomy. 06/16/08 SURGEON: Danny Marie M.D. HAND UMBRELLA TIPPER: Naima Bowling M.D. 21b/l submassive PE diagnosed on Dec 20 in [facility] 22TTE 12/22/15 in [facility]: RV dilatation, RVSP 46 23Per ECHO 05/24/17 Trace mitral regurgitation , trace TC regurgitation w no significant valve pathology 24meg colo July 2009 exc for 2 hyperplastic polyps 25Colonoscopy 2004 at [facility] [place] per letter of Dr Amor Dobbins Social History Social History Type Response Smoking Status Never (less than 100 in lifetime) entered on: 04/29/20 Sex
--- OUTSIDE RECORDS SUMMARY | 2023-10-23 09:51 | XMS_ITS | Continuity of Care Document ---
Author Organization [facility] Address [address] [place] [address]- Care Team Providers Care Manager Of Quality Name Role Phone Massimo Figueroa Primary Care Physician [facility] Date[facility]s): 07/27/23 - 08/26/23 [facility] [address] [place], [place] [phone] Referring Physician: Darwin Encinas Allergies, Adverse Reactions, Alerts Substance Reaction Severity [...] virus vaccine, inactivated 6 05/06/04 Gi zeny [id number] 12y+ bivalent booster vax 2/15/23 Given zoster vaccine, inactivated 12/08/21 Given zoster vaccine, inactivated 09/15/21 Given SARS-CoV-2 mRNA ([id number]) vax 09/15/21 Given SARS-CoV-2 (COVID-19) mRNA BNT-162b2 [...] Maintenance, 05/25/22 12:08:00 EST, ER Tablet, [facility], Discontinue Motrin, 158, cm, 05/25/22 11:12:00... Start [...] Refills, Maintenance, 07/21/21 12:43:00 EDT, [facility]/pharmacy #1026, 1 applicator Topically 2 times [...] Biotene Moisturizing Mouth oral spray See Instructions, [place] directly into mouth; spray is safe to [...] P.M. NEEDED & 1 TAB AT [facility], # 180 tablet, 1 Refills, Maintenance, 08/05/22 12:49:00 EDT, [id number], 158, cm, 07/12/22 11:54:00 EDT, Height, 76, kg, 05/07/22 6:04:00 ES... Start Date: 08/05/22 Status: Ordered capsaicin 0.025% topical cream 1 application, Topically, 3 times a day, # 35 Gm, 11 Refills, Maintenance, 07/21/21 12:26:00 EDT, Cream, [facility]/pharmacy #1026, 1 application Topically 3 times [...] 11 Refills, Maintenance, 12/06/21 15:04:00 EDT, Tablet, [facility], Partial fill upon patient request [...] Refills, Maintenance, 07/12/21 18:53:00 EDT, Tablet,[facility]/pharmacy #1026, Discontinue 30- day supply presc... Start Date: 07/12/21 Stop Date: 07/07/22 Status: Ordered ferrous sulfate 325 mg oral tablet 1 tablet = 325 mg, By Mouth, Daily, May take with food to minimize abdominal discomfort. Do not take with milk. Take preferrably with juice., # 90 tablet, 3 Refills, Maintenance, 09/15/21 8:56:00 EDT, [facility]/pharmacy #1026, 160, cm, 09/15/21 8:15:00 EDT,... [...] 0 Refills, Maintenance, 07/08/22 9:47:00 EDT, [facility] ST[id number], 158, cm, 06/16/22 11:27:00 EST, Height, 76, kg, 05/07/22 6:04:00 EST, Dry Weight Start Date: 07/08/22 Status: Ordered ketotifen 0.025% ophthalmic solution 1 drops, Eyes, Both, Every 12 hours, PRN as needed for eye allergy, # 7.5 mL, 11 Refills, Maintenance, 06/25/21 8:34:00 EDT, [facility]/pharmacy #1026, 1 drops Eyes, Both Every [...] 0 Refills, Maintenance, 04/18/23 1:50:00 EST, [facility]/pharmacy #0838, 90, TAKE 1 TABLET BY MOUTH DAILY BEFORE DINNER NEEDED FOR ALLERGIES, 160, cm, 03/23... Start Date: 04/18/23 Status: Ordered LORazepam 0.5 mg oral tablet TAKE 1 TABLET BY MOUTH 3 TIMES DAILY NEEDED FOR ANXIETY OR SLEEP Start Date: 11/24/22 Status: Ordered montelukast 10 mg oral tablet See Instructions, [facility]CIANO STERL[facility], # 90 tablet, Refills 0, Tot. Refills 0, Maintenance, 04/18/23 1:51:00 EST, Instructions Replace Required Details, Route to Pharmacy Electronically, [facility]/pharmacy #0838, 160, cm, 03/23/23 1... Start [...] 11:54:00 EST, Route to Pharmacy Electronically, [facility]/pharmacy #0838, 160, cm, 03/09/22 10:43:00 EST, [...] # 15... Start Date: 11/24/22 Status: Ordered Btr-uwg-egtfw medical-grade oxford diabetic shoes, depth or hightop Fcj-vbc-kmpen medical-grade oxford diabetic shoes, depth or hightop, [...] DOLOR Start Date: 11/24/22 Status: Ordered Pen [place], 32 G x 4 mm BD Ultra [...] Gm,11 Refills, Maintenance, 03/09/22 11:39:00 EST, [facility]/pharmacy #0838, 17- 34 Gm By Mouth [...] 11 Refills, Maintenance, 03/09/22 11:39:00 EST, [facility]/pharmacy #0838, 160, cm, 03/09/22 10:43:00 EST, [...] Refills, Maintenance, 05/09/23 10:10:00 EST, Tablet, [facility]/pharmacy #0838, Partial fill upon patient request [...] 3 Refills, Maintenance, 02/24/2312:11:00 EST, [facility]/pharmacy #0838, Partial fill upon patient request [...] Date: 03/09/22 Stop Date: 06/01/22 Status: Ordered [place] Reusable Bed Pad 34 x 36 [place] Reusable Bed Pad 34 x 36 [...] Confirmed 12/29/11 Active Hepatitis C Confirmed Active 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 06/16/08 SURGEON: Danny Marie M.D. PERSONAL DEVELOPMENT COACH: Naima Bowling M.D. 22b/l submassive PE diagnosed on Dec 20 in [facility] 23TTE 12/22/15 in [facility]: RV dilatation, RVSP 46 24Per ECHO 05/24/17 Trace mitral regurgitation , trace TC regurgitation w no significant valve pathology 25meg colo July 2009 exc for 2 hyperplastic polyps 26Colonoscopy 2004 at [facility] [place] per letter of Dr Amor Dobbins Social History Social History Type Response Smoking Status Never (less than 100 in lifetime) entered on: 10/22/20 Sex Patient Care team information Care Team Personnel Name: Massimo Figueroa Position: S Outreach Member Role: PCP Address: Address: [address] [place] [address]- Name: Oneil Ye RN Position: S Outreach Member Role: Primary Care Nurse Name: Diamond Weiss RN Position: S RN Member Role: Primary Care Nurse Name: Tiara Cavazos RN Position: [facility] OB RN Member Role: Primary Care Nurse Name: Shreya Boss RN Position: S RN Member Role: Primary Care Nurse Name: Dhruv Khan RN Position: [facility] RN Member Role: Primary Care Nurse Name: Virginia Benson RN Position: [facility] AMB Nurse Member Role: Primary Care Nurse Name: Glen Cota MD Position: [facility] Renal MD Member Role: Lifetime Consulting Physician Address: Address: [address] [place] [address] [facility] [address] Name: Carole Toro LPN Position: [facility] RN Member Role: Primary Care Nurse Care Team Related Persons Name: JOSE ELIAS TODD Address: [place] [address] Name: JOSE ELIAS KIRKLAND Address: home [address] [place] [id number] Name: LEONIE SCHRADER Address: [place] [address]
--- OUTSIDE RECORDS SUMMARY | 2023-10-23 09:51 | XMS_ITS | Continuity of Care Document ---
Author Organization [facility] Address [address] [place] [address]- Care Team Providers Care Iron Pourer Name Role Phone Gayathri GARZA, Florinda Primary Care Physician Encounter [facility] Date(s): 10/01/20 - 10/31/20 [facility] [address] [place] [address]- Allergies, Adverse Reactions, Alerts Substance Reaction Severity [...] exceed 2000 mg/day) italian, # 100 tablet, 11 Refills, Maintenance, 08/14/20 [...] Soft Stop, 06/26/20 7:30:00 EDT, [facility]/pharmacy #1026, Partial fill upon patient request if the prescription is for a schedule II op... Start Date: 06/26/20 Status: Ordered calcium (as citrate)-vitamin D 315 mg-250 intl units oral tablet 2 tablet, By Mouth, 2 times a day, for 30 days, calcium citrate, # 120 tablet, 11 Refills, Hard Stop 01/21/21 19:13:00 EDT, 01/27/20 19:13:00 EDT, Tablet, [facility]/pharmacy #1026, 167, cm, 01/13/20 8:54:00 EDT, Height, [...] 0 Refills, Maintenance, 10/22/20 10:11:00 EDT, Tablet, [facility], 160, cm, 10/22/20 [...] 78.8, kg,... Start Date: 01/21/20 Status: Ordered Bou-hkk-itxmk medical-grade oxford diabetic shoes, depth or hightop Dvh-fov-qlkox medical-grade oxford diabetic shoes, depth or hightop, [...] EDT, Route to Pharmacy Electronically, [facility]/pharmacy #1026, Part... Start Date: 10/30/20 Stop Date: 11/27/20 Status: Ordered oxyCODONE 5 mg oral tablet 5 mg, 1, tablet, By Mouth, Every 4 hours, for 28 days, PRN pain dispense not earlier than 11/27/20, # 168 tablet, Refills 0, Tot. Refills 0, Acute 12/25/20 10:25:00 EDT, 11/27/20 10:25:00 EDT, Route to Pharmacy Electronically, [facility]/pharmacy #1026, Part... Start Date: 11/27/20 Stop Date: 12/25/20 Status: Ordered oxyCODONE 5 mg oral tablet 5 mg, 1, tablet, By Mouth, Every 4 hours, for 28 days, PRN pain dispense not earlier than 12/25/20, # 168 tablet, Refills 0, Tot. Refills 0, Acute 01/22/21 10:25:00 EDT, 12/25/20 10:25:00 EDT, Route to Pharmacy Electronically, [facility]/pharmacy #1026, Part... Start Date: 12/25/20 Stop Date: 01/22/21 Status: Ordered oxyCODONE 5 mg oral tablet 5 mg, 1, tablet, By Mouth, Every 4 hours, for 28 days, PRN pain dispense not earlier than 10/02/20, # 168 tablet, Refills 0, Tot. Refills 0, Acute 11/27/20 10:25:00 EDT, 10/30/20 10:25:00 EDT, Route to Pharmacy Electronically, [facility]/pharmacy #1026, Part... Start Date: 10/30/20 Stop Date: 11/27/20 Status: Ordered Pen [place], 32 G x 4 mm BD Ultra [...] Refills, Maintenance, 01/27/20 19:13:00 EDT, [facility]/pharmacy #1026, 17- 34 Gm By Mouth Daily,PRN:asneeded [...] Route to Pharmacy Electronically, [facility]/pharmacy #1026 Tablet, 167, cm, 01/13/20 8:5... Start [...] Maintenance, 10/15/20 16:28:00 EDT, Routeto Pharmacy Electronically, [facility]/pharmacy #1026, 160... Start Date: 10/15/20 Status: Ordered TENS electrode pads TENS electrode pads, See Instructions, # 1 box, Refills 5, Tot. Refills 5, Maintenance, use as directed for back pain Dx LBP M54.9 1 box of 4, 12/06/16 14:59:01, Compound Start Date: 12/06/16 Status: Ordered Trelegy Ellipta inhalation powder 1 puffs, Inhalation, Daily, at the same time every day given by medical laboratory technical officer , Dr Berkowitz, # 60 each, 0 Refills, Maintenance, 11/20/19 13:03:00 EDT, Powder Start Date: 11/20/19 Status: Ordered Tresiba FlexTouch 200 units/mL subcutaneous solution See Instructions, Inject 55 units daily at 9pm, E11.65. 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 06/16/08 SURGEON: Danny Marie M.D. DRAWING FRAME TENDER: Naima Bowling M.D. 21b/l submassive PE diagnosed on Dec 20 in [facility] 22TTE 12/22/15 in [facility]: RV dilatation, RVSP 46 23Per ECHO 05/24/17 Trace mitral regurgitation , trace TC regurgitation w no significant valve pathology 24meg colo July 2009 exc for 2 hyperplastic polyps 25Colonoscopy 2004 at [facility] [place] per letter of Dr Amor Dobbins Social History Social History Type Response Smoking Status Never (less than 100 in lifetime) entered on: 10/22/20 Sex
--- OUTSIDE RECORDS SUMMARY | 2023-10-23 09:51 | XMS_ITS | Continuity of Care Document ---
Author Organization [facility] Address [address] [place] [address]- Care Team Providers Care Electronics Supervisor Name Role Phone Florinda Trinh MD Primary Care Physician Encounter [facility] Date(s): 09/30/20 - 01/28/21 [facility] [address] [place], [place] [address] Attending Physician: Dottie Hernandez MD Admitting Physician: Dottie Hernandez MD Allergies, Adverse Reactions, Alerts Substance Reaction [...] or fever, (not to exceed 2000 mg/day) [place], # 100 tablet, 11 Refills, Maintenance, 08/14/20 [...] 11 Refills, Maintenance, 02/10/20 11:22:00 EST, Cream, [facility]/pharmacy #1026, 1 application Topically 3 times [...] 11 Refills, Maintenance, 01/18/21 18:00:00 EDT, Tablet, [facility]/pharmacy #1026, 160, cm, 10/22/20 9:15:00 EDT, Height, 80.6, kg, 06/03/20 19:00:00 EST, Dry Weight Start Date: 01/18/21 Status: Ordered escitalopram 20 mg oral tablet 1 tablet = 20 mg, By Mouth, Daily, Discontinue duloxetine 60 mg, # 30 tablet, 11 Refills, Maintenance, 12/09/20 11:15:00 EDT, Tablet, [facility]/pharmacy #1026, Partial fill upon patient request [...] tablet, 3 Refills, Maintenance, 06/30/20 14:55:00 EDT, Tablet,[facility]/pharmacy #1026, Discontinue 30- day supply presc... [...] mL, 6 Refills, Maintenance, 01/21/20 14:30:00 EDT, [facility]/pharmacy #1026, 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 Start Date: 01/21/20 Status: Ordered Hba-jdw-zcdzu medical-grade oxford diabetic shoes, depth or hightop Wcl-hub-yyhxb medical-grade oxford diabetic shoes, depth or hightop, [...] 01/22/21 17:14:00 EDT, Route to Pharmacy Electronically, [facility]/pharmacy #1026, Par... Start Date: 01/22/21 Stop Date: 02/19/21 Status: Ordered Pen [place], 32 G x 4 mm BD Ultra [...] 527 Gm,11 Refills, Maintenance, 01/27/20 19:13:00 EDT, [facility]/pharmacy #1026, 17- 34 Gm By Mouth [...] 30 tablet, 5 Refills, Maintenance, [facility], 160, cm, 10/22/20 9:15:00 EDT, Height, 80.6, kg, 06/03/20 19:00:00 EST, Dry Weight Start Date: 11/13/20 Status: Ordered Senna 8.6 mg oral tablet 17.2 mg, 2, tablet, By Mouth, 2 times a day, PRN, discontinue docusate, # 60 tablet, Refills 11, Tot. Refills 11, Maintenance, for constipation, 02/10/20 11:22:00 EST, Route to Pharmacy Electronically, [facility]/pharmacy #1026 Tablet, 167, cm, 01/13/20 8:5... [...] Maintenance, 10/15/20 16:28:00 EDT, Routeto Pharmacy Electronically, [facility]/pharmacy #1026, 160... Start Date: 10/15/20 Status: Ordered TENS electrode pads TENS electrode pads, See Instructions, # 1 box, Refills 5, Tot. 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 06/16/08 SURGEON: Danny Marie M.D. MATERIAL WORKER: Naima Bowling M.D. 21b/l submassive PE diagnosed on Dec 20 in [facility] 22TTE 12/22/15 in [facility]: RV dilatation, RVSP 46 23Per ECHO 05/24/17 Trace mitral regurgitation , trace TC regurgitation w no significant valve pathology 24meg colo July 2009 exc for 2 hyperplastic polyps 25Colonoscopy 2004 at [facility] [place] per letter of Dr Amor Dobbins Social History Social History Type Response Smoking Status Never (less than 100 in lifetime) entered on: 10/22/20 Sex
--- OUTSIDE RECORDS SUMMARY | 2023-10-23 09:51 | XMS_ITS | Continuity of Care Document ---
Author Organization [facility] ter Address [address] [place] [id number]- Care Team Providers Care Boots And Shoes Supervisor Name Role Phone Massimo Figueroa Primary Care Physician Encounter [facility] Date(s): 02/09/23 - 04/12/[address] [address]- Attending Physician: Massimo Figueroa Admitting Physician: Massimo [...] virus vaccine, inactivated 6 05/06/04 Gi zeny [id number] 12y+ bivalent booster vax 05/25/22 Given zoster vaccine, inactivated 12/08/21 Given zoster vaccine, inactivated 09/15/21 Given SARS-CoV-2 mRNA ([id number]) vax 09/15/21 Given SARS-CoV-2 (COVID-19) mRNA BNT-162b2 [...] Maintenance, 05/25/22 12:08:00 EST, ER Tablet, [id number], Discontinue Motrin, 158, cm, 05/25/22 11:12:00... Start [...] Gm, 11 Refills, Maintenance, 07/21/21 12:43:00 EDT, [facility] #[id number], 1 applicator Topically 2 [...] Biotene Moisturizing Mouth oral spray See Instructions, [place] directly into mouth; spray is safe to [...] NEEDED & 1 TAB AT [facility], # 180 tablet, 1 Refills, Maintenance, 08/05/22 12:49:00 EDT, [id number], 158, cm, 07/12/22 11:54:00 EDT, Height, 76, kg, 05/07/22 6:04:00 ES... Start Date: 08/05/22 Status: Ordered capsaicin 0.025% topical cream 1 application, Topically, 3 times a day, # 35 Gm, 11 Refills, Maintenance, 07/21/21 12:26:00 EDT, Cream, [facility] #[id number], 1 application [...] 11 Refills, Maintenance, 12/06/21 15:04:00 EDT, Tablet, [facility], Partial fill upon [...] tablet, 3 Refills, Maintenance, 07/12/21 18:53:00 EDT, Tablet,[facility][id number], Discontinue 30- day supply presc... Start Date: 07/12/21 Stop Date: 07/07/22 Status: Ordered ferrous sulfate 325 mg oral tablet 1 tablet = 325 mg, By Mouth, Daily, May take with food to minimize abdominal discomfort. Do not take with milk. Take preferrably with juice., # 90 tablet, 3 Refills, Maintenance, 09/15/21 8:56:00 EDT, [facility] #[id number], 160, cm, 09/15/21 8:15:00 [...] Refills, Maintenance, 07/08/22 9:47:00 EDT, [id number], 158, cm, 06/16/22 11:27:00 EST, Height, 76, kg, 05/07/22 6:04:00 EST, Dry Weight Start Date: 07/08/22 Status: Ordered ketotifen 0.025% ophthalmic solution 1 drops, Eyes, Both, Every 12 hours, PRN as needed for eye allergy, # 7.5 mL, 11 Refills, Maintenance, 06/25/21 8:34:00 EDT, [facility] #[id number], 1 drops [...] 90 tablet, 3 Refills, 03/09/22 11:57:00 EST, [facility] #0838, 1 tablet By Mouth [...] 03/09/22 11:37:00 EST, [id number], cm, 03/09/22 10:43:00 [...] 03/09/22 11:54:00 EST, Route to Pharmacy Electronically, [facility] #[id number], 160, cm, 03/09/22 10:43:00 [...] # 15... Start Date: 11/24/22 Status: Ordered [id number]-[id number] medical-grade oxford diabetic shoes, depth or hightop Sxx-iax-urxbo medical-grade oxford diabetic shoes, depth or hightop, [...] DOLOR Start Date: 11/24/22 Status: Ordered Pen [place], 32 G x 4 mm BD Ultra [...] 527 Gm,11 Refills, Maintenance, 03/09/22 11:39:00 EST, [facility] #0838, 17- 34 Gm By Mouth [...] tablet, 11 Refills, Maintenance, 03/09/22 11:39:00 EST, [facility] #[id number], 160, cm, 03/09/22 10:43:00 [...] 4 Refills, Maintenance, 11/24/22 9:55:00 EDT, Tablet, [facility] #[id number], Partial fill upon patient [...] Date: 03/09/22 Stop Date: 06/01/22 Status: Ordered Hemet Reusable Bed Pad 34 x 36 Hemet Reusable Bed Pad 34 x 36 , [...] Confirmed 12/29/11 Active Hepatitis C 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 06/16/08 SURGEON: Danny Marie M.D. ANIMAL HUSBANDRY TECHNICIAN: Naima Bowling M.D. 22b/l submassive PE [...] [facility] per letter of Dr Amor Dobbins Social History Social History Type Response Smoking Status Never (less than 100 in lifetime) entered on: 10/22/20 Sex Patient Care team information Care Team Personnel Name: Massimo Figueroa Position: [facility] Outreach Member Role: PCP Address: Address: [address] [place] [address]- Name: Diamond Weiss RN Position: [facility] RN Member Role: Primary Care Nurse Name: Tiara Cavazos RN Position: [facility] OB RN Member Role: Primary Care Nurse Name: Shreya Boss RN Position: [facility] RN Member Role: Primary Care Nurse Name: Dhruv Khan RN Position: [facility] RN Member Role: Primary Care Nurse Name: Virginia Benson RN Position: [facility] SN RN Member Role: Primary Care Nurse Name: Jaylin Hernandez RN Position: [facility] Onco RN Member Role: Primary Care Nurse Name: Glen Cota MD Position: [facility] Renal MD Member Role: Lifetime Consulting Physician Address: Address: [address] [place] [address] [facility] [address] Name: Carole Toro LPN Position: [facility] RN Member Role: Primary Care Nurse Care Team Related Persons Name: JOSE ELIAS TODD Address: [place] [address] Name: JOSE ELIAS KIRKLAND Address: home [address] [place] [id number] Name: LEONIE SCHRADER Address: [place] [address]
--- OUTSIDE RECORDS SUMMARY | 2023-10-23 09:51 | XMS_ITS | Continuity of Care Document ---
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 Name Role Phone Massimo Figueroa Primary Care Physician Encounter [facility] Date(s): 02/02/23 - 02/04/[address] [id number] Discharge Disposition: A-D/C Home Attending Physician: Lashawn Lord DO Admitting Physician: Mulu Ceja MD Referring Physician: Not on Staff, Referring [...] virus vaccine, inactivated 6 05/06/04 Gi zeny [id number] 12y+ bivalent booster vax 05/25/22 Given zoster vaccine, inactivated 12/08/21 Given zoster vaccine, inactivated 09/15/21 Given SARS-CoV-2 mRNA (llnqibj-[id number]-mdelv) vax 09/15/21 Given SARS-CoV-2 (COVID-19) mRNA BNT-162b2 [...] given by ELLIOTT HEWITT. 4Admin Note: DENNY CRAFT RN 5Admin Note: administered by denny craft 6Admin Note: ADMINISTERED BY RYoana 7Result [...] Refills, Maintenance, 05/25/22 12:08:00 EST, ER Tablet, [facility]/pharmacy #[id number], Discontinue Motrin, 158, cm, 05/25/22 11:12:00... Start [...] 11 Refills, Maintenance, 07/21/21 12:43:00 EDT, [facility]/pharmacy #[id number], 1 applicator Topically 2 times a day, 160, cm, 07/21/21 10:22:00 EDT, Height, 80.6, kg, 06/03/20 19:00:00 EST, Dry Weight Start Date: 07/21/21 Status: Ordered Baqsimi Two Pack 3 mg nasal powder = 3 mg, Naris, Right, Once, Please use for a low blood sugar emergency, may repeat in 15 minutes, #1 each, 3 Refills, Soft Stop, 03/09/22 11:35:00 EST, [facility]/pharmacy #[id number], 160, cm, 03/09/22 10:43:00EST, Height, 78, kg, 01/14/22 19:37:00 EDT, Dry W... Start Date: 03/09/22 Status: Ordered Biotene Moisturizing Mouth oral spray See Instructions, [place] directly into mouth; spray is safe to swallow as needed for dry mouth, # 45mL, 11 Refills, Maintenance, 05/25/22 12:42:00 EST, [facility]/pharmacy #[id number], Partial fill upon patient request [...] Refills, Maintenance, 08/05/22 12:49:00 EDT, [id number], 158, cm, 07/12/22 11:54:00 EDT, Height, 76, kg, 05/07/22 6:04:00 ES... Start Date: 08/05/22 Status: Ordered capsaicin 0.025% topical cream 1 application, Topically, 3 times a day, # 35 Gm, 11 Refills, Maintenance, 07/21/21 12:26:00 EDT, Cream, [facility]/pharmacy #[id number], 1 application Topically 3 times [...] 11 Refills, Maintenance, 12/06/21 15:04:00 EDT, Tablet, [facility], Partial fill upon [...] 3 Refills, Maintenance, 07/12/21 18:53:00 EDT, Tablet,[facility]/pharmacy #[id number], Discontinue 30- day supply presc... Start Date: 07/12/21 Stop Date: 07/07/22 Status: Ordered ferrous sulfate 325 mg oral tablet 1 tablet = 325 mg, By Mouth, Daily, May take with food to minimize abdominal discomfort. Do not take with milk. Take preferrably with juice., # 90 tablet, 3 Refills, Maintenance, 09/15/21 8:56:00 EDT, [facility]/pharmacy #[id number], 160, cm, 09/15/21 8:15:00 EDT,... [...] mg oral tablet, extended release See Instructions, YULIANAE ALIN TABLETA POR VIA ORAL CADA MANANA, # 90 tablet, 0 Refills, Maintenance, 07/08/22 9:47:00 EDT, [id number], 158, cm, 06/16/22 11:27:00 EST, Height, 76, [...] 03/09/22 11:37:00 EST, Route to Pharmacy Electronically, [facility]/pharmacy #[id number], 160, cm, 03/09/22 10:43:00 EST, Height, 78, kg, 01/14/22 19:37:00 EDT, Dry... Start Date: 03/09/22 Stop Date: 03/04/23 Status: Ordered nitroglycerin 0.[address] 1 TABLET UNDER TONGUE EVERY 5 MINS, UP TO 3 DOSES NEEDED FOR CHEST PAIN Start Date: 11/24/22 Status: Ordered Norvasc 5 mg oral tablet 5 mg, Tablet, By Mouth, 02/04/23 9:00:00 EDT Start Date: 02/04/23 Stop Date: 02/04/23 Status: Completed Norvasc 5 mg oral tablet 5 mg, 1, tablet, By Mouth, Daily, # 90 tablet, Refills 3, Tot. Refills 3, Maintenance, 03/09/22 11:54:00 EST, Route to Pharmacy Electronically, [facility]/pharmacy #[id number], 160, cm, 03/09/22 10:43:00 EST, [...] # 15... Start Date: 11/24/22 Status: Ordered Rnr-kwn-kpyci medical-grade oxford diabetic shoes, depth or hightop Thv-flt-ycnyp medical-grade oxford diabetic shoes, depth or hightop, [...] Ordered oxyCODONE 5 mg oral tablet TOME ALIN O DOS TABLETAS POR V A ORAL CADA SEIS HORAS CUANDO SEA NECESARIO PARA EL DOLOR Start Date: 11/24/22 Status: Ordered Pen [place], 32 G x 4 mm BD Ultra [...] Ordered pravastatin 10 mg oral tablet TOME ALIN TABLETA TODOS LOS D Start Date: 11/24/22 [...] Status: Ordered Trelegy Ellipta inhalation powder TOME ALIN INHALACI N POR V A ORAL TODOS LOS D Start Date: 11/24/22 Status: Ordered Trelegy Ellipta inhalation powder 1 puffs, Inhalation, Daily, at the same time every day, # 60 each, 0 Refills, Maintenance, 01/26/2313:42:00 EDT, Powder, Partial fill upon patient request if the prescription is for a schedule II opioid drug. 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 06/16/08 SURGEON: Danny Marie M.D. 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 22b/l submassive PE diagnosed on Dec 20 in [facility] 23TTE 12/22/15 in [facility]: RV dilatation, RVSP 46 24Per ECHO 05/24/17 Trace mitral regurgitation , trace TC regurgitation w no significant valve pathology 25meg colo July 2009 exc for 2 hyperplastic polyps 26Colonoscopy 2004 at [facility] [place] per letter of Dr Amor Dobbins Results Radiology Reports * Exam Date Time Procedure Performing Provider Status 02/03/23 8:[address] Cervical Spine W/O Contrast Evangelisat Payne; Auth (Verified) Notes: (CT Cervical Spine W/O Contrast) Reason For Exam: Neck trauma, dangerous injury mechanism;Other: RESULT: CT Cervical Spine W/O Contrast CT Head/Brain W/O Contrast, CT Cervical Spine W/O Contrast INDICATION: Hx of Present Illness: pt to ed for c o syncope and chest pain and H A; Reason: Trauma;Syncope, hit head, on eliquis; Clinical Question(s): Subarachnoid Hemorrhage TECHNIQUE: Noncontrast head CT using axial technique was reconstructed in axial and coronal planes.Noncontrast spiral CT through the cervical spine was formatted in 3 planes. Automatic tube modulation was used for the cervical spine and iterative dose reconstruction was used for both the head and cervical spine to optimize scan parameters and image quality. CTDIvol Body: 14.50 mGy, DLP Body: 396 mGy*cm. CTDIvol Head: 41.10 mGy, DLP Head: 672 mGy*cm. COMPARISON: 12/27/2019. FINDINGS: Voice Studies Director View Findings, Lines and Tubes: None. BRAIN AND EXTRA-AXIAL SPACES: No parenchymal hemorrhage, midline shift, or mass effect. Lopez-white matter differentiation is wellpreserved. No acute infarct. Ventricles, sulci, and basilar cisterns are normal. Mild low-density white matter changes. No subarachnoid hemorrhage. No subdural or epidural collection. CALVARIUM, SKULL BASE, AND SOFT TISSUES: No fractures or suspicious bony lesions. The paranasal sinuses and mastoid air cells are clear. Visualized orbits and globes are intact. The extracranial soft tissues are unremarkable. CERVICAL SPINE: No fracture. No acute osseous abnormalities. There is anterolisthesis of C3 on C4 level. No locked or perched facet. Moderate multilevel degenerative disc space narrowing and end plate irregularity. There is narrowing of the atlantodens interval with osteophyte formation. A posterior calcified disc protrusions at C4-C5, C5-C6, and C6-7 level.There is ossification of the ligamentum flavum at C4-C5 level. OTHER BONES: No acute abnormality. CERVICAL SOFT TISSUES AND LUNG APICES: Normal soft tissues. Visualized lung apices are clear. IMPRESSION: No acute intracranial abnormality. Mild chronic small vessel ischemic changes. No cervical spine fracture or subluxation. 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 WSN: [id number] Ordering Physician: Rios Mosher Dictated By: Ruthie Wing MD Dictated Date/Time: 02/03/23 8:59 am Reviewed By: Ruthie Wing MD Signed By: Ruthie Wing MD Signed Date/Time: 02/03/23 8:59 am Transcribed By: AUGUSTINE Transcribed Date/Time: 02/03/23 8:45 am * Exam Date Time Procedure Performing Provider Status 02/03/23 8:[address] Head/Brain W/O Contrast Sammy Payne; Auth (Verified) Notes: (CT Head/Brain W/O Contrast) Reason For Exam: Syncope, hit head, on eliquis;Trauma RESULT: CT Head/Brain W/O Contrast CT Head/Brain W/O Contrast, CT Cervical Spine W/O Contrast INDICATION: Hx of Present Illness: pt to ed for c o syncope and chest pain and H A; Reason: Trauma;Syncope, hit head, on eliquis; Clinical Question(s): Subarachnoid Hemorrhage TECHNIQUE: Noncontrast head CT using axial technique was reconstructed in axial and coronal planes.Noncontrast spiral CT through the cervical spine was formatted in 3 planes. Automatic tube modulation was used for the cervical spine and iterative dose reconstruction was used for both the head and cervical spine to optimize scan parameters and image quality. CTDIvol Body: 14.50 mGy, DLP Body: 396 mGy*cm. CTDIvol Head: 41.10 mGy, DLP Head: 672 mGy*cm. COMPARISON: 12/27/2019. FINDINGS: Voice Studies Director View Findings, Lines and Tubes: None. BRAIN AND EXTRA-AXIAL SPACES: No parenchymal hemorrhage, midline shift, or mass effect. Lopez-white matter differentiation is wellpreserved. No acute infarct. Ventricles, sulci, and basilar cisterns are normal. Mild low-density white matter changes. No subarachnoid hemorrhage. No subdural or epidural collection. CALVARIUM, SKULL BASE, AND SOFT TISSUES: No fractures or suspicious bony lesions. The paranasal sinuses and mastoid air cells are clear. Visualized orbits and globes are intact. The extracranial soft tissues are unremarkable. CERVICAL SPINE: No fracture. No acute osseous abnormalities. There is anterolisthesis of C3 on C4 level. No locked or perched facet. Moderate multilevel degenerative disc space narrowing and end plate irregularity. There is narrowing of the atlantodens interval with osteophyte formation. A posterior calcified disc protrusions at C4-C5, C5-C6, and C6-7 level.There is ossification of the ligamentum flavum at C4-C5 level. OTHER BONES: No acute abnormality. CERVICAL SOFT TISSUES AND LUNG APICES: Normal soft tissues. Visualized lung apices are clear. IMPRESSION: No acute intracranial abnormality. Mild chronic small vessel ischemic changes. No cervical spine fracture or subluxation. 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 WSN: [id number] Ordering Physician: Rios Mosher Dictated By: Ruthie Wing MD Dictated Date/Time: 02/03/23 8:59 am Reviewed By: Ruthei Wing MD Signed By: Ruthie Wing MD Signed Date/Time: 02/03/23 8:59 am Transcribed By: AUGUSTINE Transcribed Date/Time: 02/03/23 8:45 am * Exam Date Time Procedure Performing Provider Status 02/02/23 7:24 PM Chest 2 Views Frontal and Lat Anabella Crandall; Auth (Verified) Notes: (Chest 2 Views Frontal and Lat) Reason For Exam: Chest Pain;Other: RESULT: Chest 2 Views Frontal and Lat Chest 2 Views Frontal and Lat Hx of Present Illness: pt to ed for c o syncope and chest pain and H A; Reason: Other:; Chest Pain;Clinical Question(s): Other: COMPARISON: 04/12/2022 FINDINGS: LINES AND TUBES: None. LUNGS AND PLEURA: Clear lungs. Normal pulmonary vascularity. No pleural effusion. No pneumothorax. HEART, MEDIASTINUM AND SERINA: Heart is normal in size. Normal mediastinal and hilar contour. BONES AND SOFT TISSUES: No acute abnormality. IMPRESSION: No acute abnormality. WSN: [id number] Ordering Physician: Krissy Berrios Dictated By: Cinthya Morris MD Dictated Date/Time: 02/02/23 7:32 pm Reviewed By: Cinthya Morris MD Signed By: Cinthya Morris MD Signed Date/Time: 02/02/23 7:32 pm Transcribed By: AUGUSTINE Transcribed Date/Time: 02/02/23 7:32 pm Vital Signs Most recent to oldest [Reference Range]: 1 2 3 4 Height 160 cm (02/04/23 11:08 AM) 160 cm (02/04/23 7:55 AM) 160 cm (02/04/23 5:00 AM) 160 cm (02/04/23 5:00 AM) Oxygen Saturation [94-100 %] 98 % (02/04/23 11:08 AM) 100 % (02/04/23 7:55 AM) 99 % (02/04/23 5:00 AM) Pulse Rate [55-90 bpm] 86 bpm (02/04/23 11:08 AM) 80 bpm (02/04/23 7:55 AM) 84 bpm (02/03/23 11:39 PM) Blood Pressure [90-138/55-84 mm Hg] 110/57mm Hg (02/04/23 11:08 AM) 145/76mm Hg *H* (02/04/23 8:00 AM) 145/76mm Hg *H* (02/04/23 7:55 AM) Respiratory Rate [16-30 br/min] 17 br/min (02/04/23 11:08 AM) 17 br/min (02/04/23 7:55 AM) 20 br/min (02/04/23 5:00 AM) Temperature [96.8-100.4 DegF] 98.1 DegF (02/04/23 11:08 AM) 98.3 DegF (02/04/23 7:55 AM) 98.2 DegF (02/04/23 5:00 AM) Mode of Delivery (Oxygen) Room air (02/04/23 11:08 AM) Room air (02/04/23 7:55 AM) Room air (02/03/23 11:39 PM) Blood pressure sites Arm, right (02/04/23 11:08 AM) Arm, right (02/04/23 7:55 AM) Arm, right (02/04/23 5:00 AM) Temperature Route Oral (02/04/23 11:08 AM) Oral (02/04/23 7:55 AM) Oral (02/03/23 11:39 PM) Dry Weight 78 kg (02/02/23 6:32 PM) Dry Weight Obtained Via Patient/family stated (02/02/23 6:32 PM) Social History Social History Type Response Smoking Status Never (less than 100 in lifetime) entered on: 10/22/20 Sex Admission evaluation note * Bro Balbuena: PERFORM Event Display: Admission Note Authored Date: [id number] Patient: ??LEONIE CHOU ? Age:??77 Years?Sex:??Female?:??1945?? Chief Complaint/Reason for Consultation Chest pain, dizziness History of Present Illness 77-year-old female with past medical history of hypertension, PE, dementia, diabetes??presents withintermittent chest pain, lightheadedness,??and a fall.?? In the emergency department CT head and C-spine were negative.?? Potassium was 5.8 and was treated with medication downtrending to 5.2.?? Patient was found with mild DKA 1.3 which improved to 1.1 which is near baseline after fluids.?? Troponin was 22 and serial troponin was flat at 19. ??EKG nonischemic.?? The patient had an echocardiogram??04/12 with an EF of 70-75 and mild to moderate aortic stenosis.?? Cardiology saw the patient and saidthere was nothing more to do about the aortic stenosis??during this admission??recommended she can be discharged home.?? However she was orthostatic??with PT so she was admitted overnight for observation. Review of Systems CONSTITUTIONAL: ??Denies any fever, chills, changes to weight or fatigue. EYES: Denies any changes to vision, burning or diplopia. HEENT: Denies any QURESHI, nasal d/c, nose bleeds, changes to voice, vertigo, photophobia, hearing changes or dental problems. CV: See HPI PULM: Denies any SOB, wheezing, cough or production of phlegm. ABD: Denies any abdominal pain, N/V/D, heartburn, PRBPR, melena, or changes to bowel habits. : Denies any changes to frequency. ??Denies dysuria, urgency, straining, hematuria, incontinence.? MS: Denies any joint or muscle pain, falls or changes to gait. NEURO: Denies any weakness, numbness, changes to speech confusion or memory loss. SKIN: Denies any rashes or lesions. ?? PSYCH: Denies any depression or anxiety. SIGECAPS negative. FUNCTIONAL: At baseline the patient is able to??ambulate independently Objective Vital Signs?? Temperature: 98.6 DegF (02/03/23 08:04:00) Temperature Route: Oral (02/03/23 08:04:00) Pulse Rate: 71 bpm (02/03/23 12:56:00) Pulse Rate, Lyin bpm (02/03/23 13:52:00) Systolic Blood Pressure, Lyin mm Hg (02/03/23 13:52:00) Diastolic Blood Pressure, Lyin mm Hg (02/03/23 13:52:00) Pulse Rate, Sittin bpm (02/03/23 13:52:00) Systolic Blood Pressure, Sittin mm Hg (02/03/23 13:52:00) Diastolic Blood Pressure, Sittin mm Hg (02/03/23 13:52:00) Pulse Rate, Standin bpm (02/03/23 13:52:00) Systolic Blood Pressure, Standin mm Hg (02/03/23 13:52:00) Diastolic Blood Pressure, Standin mm Hg (02/03/23 13:52:00) Respiratory Rate: 16 br/min (02/03/23 12:56:00) Systolic Blood Pressure: 137 mm Hg (02/03/23 12:56:00) Diastolic Blood Pressure: 70 mm Hg (02/03/23 12:56:00) Blood pressure sites: Arm, right (02/03/23 12:56:00) Mean Arterial Pressure: 105 mm Hg (02/03/23 06:30:00) Pulse Pressure: 63 mm Hg (02/03/23 06:30:00) Oxygen Saturation: 99 % (02/03/23 12:56:00) Mode of Delivery (Oxygen): Room air (02/03/23 12:56:00) Early Warning Score: 1 (02/03/23 13:00:42) ? Physical Exam General:??77 year old??female??lies in bed comfortably in no acute distress HEENT: NCAT, moist oral mucosa, good dentition, oropharynx without erythema Card: 3 out of 5??systolic??murmur??in the aortic area Resp: CTA B/L, no wheezing, rales, ronchi Abdomen: soft and non tender, bowel sounds WNL Extremities: no pitted edema B/L lower extremities Skin: Without rashes or lesions, good turgor Hem/Lymph: without bruising or lymphadenopathy Psych: appropriate affect Neuro: A&OX3, no focal motor deficits Assessment/Plan 77-year-old female with past medical history of hypertension, PE, dementia, diabetes??presents withintermittent chest pain, lightheadedness,??and a fall. ?? Postural dizziness with presyncope (R42):??. Moderate aortic stenosis (I35.0):?? Patient was orthostatic??with PT Cardiology said nothing??else to do inpatient from their standpoint,??cleared for discharge We will keep her overnight??for IV fluids??and orthostasis ?? Plan Check formal orthostatic??vital signs Gentle IV fluids Change positions slowly PT recommends??home with services Case management consulted ?? Diabetes (E11.9):??Continue basal bolus insulin??and POC's ?? Asthma (J45.909):??Continue Spiriva, Breo, ProAir ?? Pulmonary embolism (I26.99):??On Eliquis ?? Depression (F32.A):??Continue escitalopram??and buspirone ?? Hypertension (I10):??Continue amlodipine,??isosorbide ?? VTE Prophylaxis:??On Eliquis ?VTE Prophylaxis Assessment:??VTE Prophylaxis Ordered ?? Code Status:??Full code,??confirmed at bedside ?Order Code Status:??Code Status Ordered ?? Ongoing Medical Necessity:??Presyncope ?? Discharge Planning:??If she is stable??tomorrow??and orthostatic vital signs??are reasonable??she may be DC'd ?? Total time spent on chart review,??medication reconciliation, direct patient care, documentation: 76 minutes ?? Histories Allergies Allergies ?(Active and Proposed Allergies Only) enalapril? (Severity: Unknown severity, Onset: Unknown) ?Reactions: hyperkalemia Bactrim? (Severity: Unknown severity, Onset: Unknown) ?Reactions: hyperkalemia ?Comments: Hyperkalemia when used together with lisinopril Lidocaine, Topical? (Severity: Unknown severity, Onset: Unknown) morphine? (Severity: Unknown severity, Onset: Unknown) ?Reactions: itchy penicillin? (Severity: Unknown severity, Onset: Unknown) ?Reactions: RASH ? 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 Chronic kidney disease (CKD)- stage 3 Deep vein thrombosis (DVT) Dementia, vascular Diabetes mellitus type 2 Diabetic angiopathy Diabetic neuropathy Diastolic dysfunction Dry skin Dysuria Esophageal varices Fibromyalgia muscle pain Gastritis Hearing test abnormal Hepatitis C Hypercholesterolemia Hyperparathyroidism s/p right lower parathyroidectomy 06/16/2008 Hypertension Hysterectomy Incontinence of urine Iron deficiency anemia Left ventricular hypertrophy penitentiary current use of opiate analgesic-LBP Memory impairment Mitral regurgitation Myofascial muscle pain Nephrolithiasis Obesity JENNIFER (obstructive sleep apnea) Osteopenia Oxygen dependent Peripheral venous insufficiency Positive PPD Primary hyperparathyroidism Psychophysiological insomnia Pulmonary embolism Pulmonary hypertension Restless leg syndrome Right ventricular dilation Seasonal allergic rhinitis Subclinical hypothyroidism TR (tricuspid regurgitation) Tubular adenoma ? Past Surgical History Intracapsular cataract extraction with insertion of intraocular lens prosthesis (1 stage procedure): 2008 Parathyroidectomy-right lower parathyroidectomy: 06/16/08 Cholecystectomy with exploration of common duct; with transduodenal sphincterotomy or sphincteroplasty, with or without cholangiography: 1975 hysterectomy: 1975 ? Social History Alcohol Details:??Use: Never. Employment/School Details:??Status: Disabled. Home/Environment Details:??Living situation: Home/Independent. ??Lives with: friend. ??Domestic violence in household: No. ??Alcohol in household: No. ??Firearms in household: No. ??Substance abuse in household: No. ??Smoker in household: No. Substance Abuse Details:??Use: Never. Tobacco Details:??Use: Never (less than 100 in lifetime). Details:??Never smoker, Type: Cigarettes. ? Family History No family history recorded. ? Medications Home Medications Acetaminophen (acetaminophen 650 mg oral tablet, extended release)?2?tab(s)?1,300?Milligram?By Mouth?Every 8 hours?as needed?Pain?(do not crush or chew)(not to exceed 6 tablets/day) Albuterol (Ventolin HFA 108 mcg/inh inhalation aerosol with adapter)?2?puff(s)?Inhalation?4 times a day?as needed?Wheezing/Shortness of Breath?dispense when patient request it Amlodipine (Norvasc 5 mg oral tablet)?5?Milligram?1?tablet?By Mouth?Daily?for 90?Days Ammonium Lactate 12% (ammonium lactate 12% topical cream)?1?applicator?Topically?2 times a day apixaban (Eliquis 5 mg oral tablet)?1?tab(s)?5?Milligram?By Mouth?2 times a day BusPIRone (busPIRone 15 mg oral tablet)?See Instructions?TAKE 1/3- 1/2 HALF TABLET IN THE MORNING AND IN P.M. NEEDED & 1 TAB AT AL [facility] Capsaicin Topical (capsaicin 0.025% topical cream)?1?rc?Topically?3 times a day Diclofenac Topical (Voltaren 1% topical gel)?2?gram?Topically?4 times a day?for 14?Days Durable Medical Equipment (Freestyle Lite Test Strips)?See Instructions?for 30?Days?Check up to 5 times daily. E11.65 Durable Medical Equipment (Lancets)?See Instructions?use 4 xday for blood sugar testing DM type 2 insulin dependent, hyperglycemia/ hypoglycemiaFree Style Lite ICD10 ??E11.65/E11.649, Z 79.4 Durable Medical Equipment (Compression- Lower Extremity (Knee High))?See Instructions?use daily; closed toes; 10-20 mmHg. Dx peripheral vascular insufficiency I 87.2 Durable Medical Equipment (Byy-uyj-vddte medical-grade oxford diabetic shoes, depth or hightop)?See Instructions?wide ??shoes; wear every day ??in both foot Dx DM type 2 ??with peripheral neuropathy ICD10 E11.40; DMtype 2 pressure callus 11.628, ??right bunion M20.11 1 pair Durable Medical Equipment (Shoes insert, molded to foot)?See Instructions?wear every day ??inboth foot Dx DM type 2 ??with peripheral neuropathy ICD10 E11.40; DMtype 2 pressure callus 11.628 ??right bunion M20.11 3 pairs Durable Medical Equipment (TENS electrode pads)?See Instructions?use as directed for back pain Dx LBP M54.91 box of 4 Durable Medical Equipment (Freestyle rony 2 reader)?See Instructions?use as directed for Type 2 Diabetes Mellitus,E11.65 Durable Medical Equipment (Skin Tac Wipe (Adhesive Barrier Wipe))?See Instructions?Use 1 wipeevery 14 days with sensor change. Clean and dry skin, then wipe with Skin Tac and let dry. Once dryapply sensor. Durable Medical Equipment (Pen [place], 32 G x 4 mm BD Ultra Fine III)?See Instructions?Use ??as ??directed to inject insulin ?4 ??times ??per day. E11.9 Durable Medical Equipment (Freestyle rony 2 sensor)?See Instructions?use as directed to continuously monitor glucose for Type 2 Diabetes Mellitus, replace sesnor every 14 days. Scan sensor at least every 8 hours. Durable Medical Equipment (Glucose Tablets)?See Instructions?Chew 4 tablets as needed for blood sugar less than 70. Durable Medical Equipment (Alcohol Wipes)?See Instructions?Use inject insulin and check bloodsugar up to 5 times daily. E11.9 Escitalopram (escitalopram 20 mg oral tablet)?1?tab(s)?20?Milligram?By Mouth?Daily Esomeprazole (esomeprazole 40 mg oral enteric coated capsule)?See Instructions?TAKE 1 CAPSULEBY MOUTH DAILY 30 MINUTES BEFORE BREAKFAST Famotidine (famotidine 40 mg oral tablet)?1?tab(s)?40?Milligram?By Mouth?Daily atbedtime?for 90?Days?If 40 mg tablet is not available, can be changed to 20 mg tablet 2 tablet at bedtime Ferrous Sulfate (ferrous sulfate 325 mg oral tablet)?1?tab(s)?325?Milligram?By Mouth?Daily?May take with food to minimize abdominal discomfort. Do not take with milk. Take preferrably with juice. fluticasone/umeclidinium/vilanterol (Trelegy Ellipta inhalation powder)?TOME ALIN INHALACI N POR V A ORAL TODOS LOS D fluticasone/umeclidinium/vilanterol (Trelegy Ellipta inhalation powder)?1?puff(s)?Inhalation?Daily?at the same time every day Glucagon (Baqsimi Two Pack 3 mg nasal powder)?3?Milligram?Naris, Right?Once?Please use for a low blood sugar emergency, may repeat in 15 minutes Insulin Aspart (NovoLOG FlexPen 100 units/mL subcutaneous solution)?See Instructions?Inject subcutaneously NovoLog per scale up to 3 times per day before meals. Max daily dose 30 units. 100-150? 4 unit; 151-200 ? 5 units; 201-250 ? 6 units; 251-300 ? 7 ??units; 301-350 ? 8 units; > 351 ? 9 units insulin degludec (Tresiba FlexTouch 200 units/mL subcutaneous solution)?See Instructions?INJECT SUBCUTANEOUSLY 30 UNITS DAILY. E11.9 Isosorbide Mononitrate (isosorbide mononitrate 30 mg oral tablet, extended release)?See Instructions?TOME ALIN TABLETA POR VIA ORAL CADA MANANA Ketotifen Ophthalmic (ketotifen 0.025% ophthalmic solution)?1?Drops?Eyes, Both?Every 12hours?as needed?as needed for eye allergy levocetirizine (levocetirizine 5 mg oral tablet)?1?tab(s)?5?Milligram?By Mouth?Daily before dinner?as needed?allergies linagliptin (Tradjenta 5 mg oral tablet)?1?tab(s)?5?Milligram?By Mouth?Daily Lorazepam (LORazepam 0.5 mg oral tablet)?TAKE 1 TABLET BY MOUTH 3 TIMES DAILY NEEDED FOR ANXIETY OR SLEEP Miscellaneous Rx (PLEASE DO ??NOT ERASE ANY NARCOTIC FROM OUTPATIENT MED LIST ??IF ??YOU ARE NOT THE ??PRESCRIBER)?See Instructions?PLEASE DO ??NOT ERASE ANY NARCOTIC FROM OUTPATIENT MED LIST ??IF ??YOU ARE NOT THE ??PRESCRIBER. ??If ??name ??of medication appears ??more than once, it is not a medical error, it ??indicates ??the prescriptions already ??given to the patient for ??future dispensing Miscellaneous Rx (PLEASE DO ??NOT ERASE MEDICATIONS/MEDICAL SUPPLIES FROM OUTPATIENT MED LIST IF YOU ARE NOT THE PRESC)?See Instructions?PLEASE DO ??NOT ERASE MEDICATIONS/MEDICAL SUPPLIES ??FROM OUTPATIENT MED LIST IF YOU ARE NOT THE PRESCRIBER OR PCP, OR ARE NOT CHANGING A MED TO AN ALTERNATE ONE Miscellaneous Rx (Mastic ??Reusable ??Bed ??Pad 34 x ??36 )?See Instructions?Use daily at ??bedtime Dx ??mixed ??urinary incontinence ICD10 ??N39.46Length ??of ??need: 99 Miscellaneous Rx (wipes)?See Instructions?Use ??as ??directed ??to ??clean after ??toileting Dx ??mixed urinary incontinence ICD10 ??N39.46Length ??of ??need: 99 each box of 100 Miscellaneous Rx (Pull ups)?See Instructions?Wear ?? daily during day and ??night. ??Change ??4 times ??a day prn ?? Dx ??mixed urinary incontinence ICD10 ??N39.46Height 159 cm, weight 82 kgLength of need: 99Size- large Miscellaneous Rx (Boost Glucose Control)?1 can?Oral?3 times a day?for 30?Days?indication: malnutrition E46, ??DM ??type 2 E11.9 Montelukast (montelukast 10 mg oral tablet)?10?Milligram?1?tablet?By Mouth?Daily at bedtime?for 90?Days Nitroglycerin (nitroglycerin 0.3 mg sublingual tablet)?PLACE 1 TABLET UNDER TONGUE EVERY 5 MINS,UP TO 3 DOSES NEEDED FOR CHEST PAIN Ondansetron (ondansetron 4 mg oral tablet)?1?tab(s)?4?Milligram?By Mouth?Every 8 hours?as needed?Nausea Oxycodone (oxyCODONE 5 mg oral tablet)?TOME ALIN O DOS TABLETAS POR V A ORAL CADA SEIS HORAS CUANDO SEA NECESARIO PARA EL DOLOR Polyethylene Glycol 3350 (polyethylene glycol 3350 oral powder for reconstitution)?17- 34 Gm?By Mouth?Daily?as needed?as needed for constipation?(dissolve in water or juice) Pravastatin (pravastatin 10 mg oral tablet)?LUCIANO Brady Saliva Substitutes (Biotene Moisturizing Mouth oral spray)?See Instructions?[place] directly into mouth; spray is safe to swallow as needed for ??dry ??mouth Senna (Senna-Time 8.6 mg oral tablet)?2?tab(s)?By Mouth?2 times a day?as needed? NEEDED FOR CONSTIPATION,INSTR ? Results Recent Labs BLOOD COUNT & DIFF WBC 7.7 k/mm3 ()?? 02/03/2023 08:12 RBC 4.57 m/mm3 ()?? 02/03/2023 08:12 Hgb 13.5 Gm/dL ()?? 02/03/2023 08:12 Hct 40.5 % ()?? 02/03/2023 08:12 MCV 88.6 femtoliters ()?? 02/03/2023 08:12 MCH 29.5 pg ()?? 02/03/2023 08:12 MCHC 33.3 g/dL ()?? 02/03/2023 08:12 Platelet Count 178 k/mm3 ()?? 02/03/2023 08:12 RDW-SD 43.5 femtoliters ()?? 02/03/2023 08:12 MPV 10.7 femtoliters ()?? 02/03/2023 08:12 Nucleated RBC (Automated) 0.0 #/100 WBC'S ()?? 02/03/2023 08:12 Abs. NRBC 0.0 k/mm3 ()?? 02/03/2023 08:12 Abs. Neut 5.1 k/mm3 ()?? 02/03/2023 08:12 Abs. Lymph 1.9 k/mm3 ()?? 02/03/2023 08:12 Abs. [place] 0.6 k/mm3 ()?? 02/03/2023 08:12 Abs. Eo 0.1 k/mm3 ()?? 02/03/2023 08:12 Abs. Baso 0.0 k/mm3 ()?? 02/03/2023 08:12 Neut % 66.4 % ()?? 02/03/2023 08:12 Lymph % 24.7 % ()?? 02/03/2023 08:12 [place] % 7.2 % ()?? 02/03/2023 08:12 Eos % 1.0 % ()?? 02/03/2023 08:12 Baso % 0.4 % ()?? 02/03/2023 08:12 Imm Gran 0.3 % ()?? 02/03/2023 08:12 Abs. Imm Gran 0.0 k/mm3 ()?? 02/03/2023 08:12 ?? CARDIAC Nt-Probnp 118 pg/mL ()?? 02/03/2023 08:12 High Sensitivity Troponin (HSTnT) 19 ng/L (High)?? 02/03/2023 08:12 ?? CHEM GENERAL Sodium 135 mmol/L ()?? 02/03/2023 08:12 Potassium 4.8 mmol/L ()?? 02/03/2023 08:12 Chloride 100 mmol/L ()?? 02/03/2023 08:12 Bicarbonate Level 23 mmol/L ()?? 02/03/2023 08:12 Anion Gap 12 ()?? 02/03/2023 08:12 Glucose Level 256 mg/dL (High)?? 02/03/2023 08:12 Glucose, POC 290 mg/dL (High)?? 02/03/2023 04:32 BUN 17 mg/dL ()?? 02/03/2023 08:12 Creatinine-Blood 0.7 mg/dL ()?? 02/03/2023 08:12 Estimated GFR Creatinine 83 ML/MIN/1.73 M2 ()?? 02/03/2023 08:12 Calcium 9.5 mg/dL ()?? 02/03/2023 08:12 Calcium, Ionized pH Corrected 1.24 mmol/L ()?? 02/03/2023 08:12 Magnesium 2.0 mg/dL ()?? 02/03/2023 08:12 Protein, Total 6.9 Gm/dL ()?? 02/03/2023 08:12 Albumin 4.3 Gm/dL ()?? 02/03/2023 08:12 AG Ratio 1.7 ()?? 02/03/2023 08:12 Alkaline Phosphatase 137 units/L (High)?? 02/03/2023 08:12 AST (SGOT) 30 units/L ()?? 02/03/2023 08:12 ALT (SGPT) 73 units/L (High)?? 02/03/2023 08:12 Bilirubin, Total 0.5 mg/dL ()?? 02/03/2023 08:12 ?? HEME OTHER Hold Blue Top SPECIMEN DISCARDED AFTER 4 HOURS. ()?? 02/02/2023 22:47 ?? UA/URINALYSIS Appear/Color, Urine COLORLESS ()?? 02/03/2023 11:40 Specific [place], Urine 1.005 ()?? 02/03/2023 11:40 pH, Urine 6.5 ()?? 02/03/2023 11:40 Albumin, Urine NEGATIVE ()?? 02/03/2023 11:40 Glucose, Urine NEGATIVE ()?? 02/03/2023 11:40 Ketones, Urine NEGATIVE ()?? 02/03/2023 11:40 Bilirubin, Urine NEGATIVE ()?? 02/03/2023 11:40 Hemoglobin, Urine NEGATIVE ()?? 02/03/2023 11:40 Nitrite, Urine NEGATIVE ()?? 02/03/2023 11:40 Leukocyte, Urine NEGATIVE ()?? 02/03/2023 11:40 Urobilinogen NORMAL mg/dL ()?? 02/03/2023 11:40 WBC's, Urine 1 /HPF ()?? 02/03/2023 11:40 RBC's, Urine <1 /HPF ()?? 02/03/2023 11:40 Mucus SLIGHT /LPF ()?? 02/03/2023 11:40 Hold Urine Culture Testing available 48 hours from time of collection. ()?? 02/03/2023 11:40 ?? URINE OTHER Est Creatinine Clearance 54.77 mL/min ()?? 02/03/2023 09:17 ? Consult note * Goldy GARZA, Sg: MODIFY, MODIFY, MODIFY, MODIFY, MODIFY, MODIFY, MODIFY, MODIFY, MODIFY, MODIFY, MODIFY, MODIFY, MODIFY, PERFORM, MODIFY Event Display: Consultation Note Authored Date: [id number] Patient: ??LEONIE CHOU ? Age:??77 Years?Sex:??Female?:??1945?? Chief Complaint/Reason for Consultation Chest pain History of Present Illness Patient is a 77-year-old female with history of hypertension, recurrent PE and DVT??on Eliquis, iron deficiency anemia, chronic GI bleed, dementia, diabetes and JENNIFER who is presenting due to a syncopal episode and chest pain.? Patient reports walking to her front door when??she felt dizzy and fell backwards, hitting her head on the floor. Her son witnessed her fall. It is unclear if??she lost consciousness.??She was light-headed and developed a headache after her fall and??was transported??to the ED.?She was found to have mild hyperkalemia to 5.8 with very mild YOVANNY and??flat??troponins 22 > 19 > 19. ??EKG was showing no signs of hyperkalemia or ischemia and was consistent with prior. Repeat EKG showed no changes.?Patient received fluids, improving hyperkalemia and YOVANNY.??Head CT showed no acute abnormalities. ?? Patient reports some dizziness at bedside as she was just walked back to her room from the bathroom. She states having intermittent chest pain throughout the day at random moments of both rest andactivity.??She has been anxious about heart disease since her had cardiac complications recently. She has had outpatient workup with??an echo in April 2022 showing mild to moderate aortic stenosis and hyperdynamic LV systolic function with EF 70-75%??CT heart in October 2021??showing??moderate nearly circumferential calcific stenosis in the mid RCA, 50-69%.??Otherwise no evidence of hemodynamically significant coronary artery disease and mild but widespread predominantly calcific plaque.Nuclear stress in February 2021 showed no perfusion defects.? Patient??was also??recently clinically diagnosed with a UTI and started on ciprofloxacin two days ago outpatient. UA in??the ED??was unremarkable.??She reports but no current chest pain,??fever, chills, shortness of breath, abdominal pain. Review of Systems All pertinent review of systems included in HPI. Review otherwise negative.?? Objective Vital Signs?? Temperature: 98.6 DegF (02/03/23 08:04:00) Temperature Route: Oral (02/03/23 08:04:00) Pulse Rate: 71 bpm (02/03/23 12:56:00) Respiratory Rate: 16 br/min (02/03/23 12:56:00) Systolic Blood Pressure: 137 mm Hg (02/03/23 12:56:00) Diastolic Blood Pressure: 70 mm Hg (02/03/23 12:56:00) Blood pressure sites: Arm, right (02/03/23 12:56:00) Mean Arterial Pressure: 105 mm Hg (02/03/23 06:30:00) Pulse Pressure: 63 mm Hg (02/03/23 06:30:00) Oxygen Saturation: 99 % (02/03/23 12:56:00) Mode of Delivery (Oxygen): Room air (02/03/23 12:56:00) Early Warning Score: 1 (02/03/23 13:00:42) ? Intake/Output? No Data Available ? Physical Exam Constitutional: Alert, in no distress. Mental Status: Oriented to person, place and time. Head: Normocephalic. Eyes: Pupils are equal, round and reactive to light. Extraocular muscles intact. Ear, Nose and Throat: Oropharynx clear, mucous membranes moist. Ears and nose without masses, lesions or deformities. Trachea midline. Neck: Supple, Full range of motion. Neurologic: Cranial nerves II-XII grossly intact. No focal neurological deficits. Moves all extremities spontaneously. Skin: No rashes or lesions. No petechiae or purpura.?? Musculoskeletal: No cyanosis or clubbing. No gross deformities. Normal range of motion. Psychiatric: Normal mood and affect Assessment/Plan Patient is a 77-year-old female with history of hypertension, recurrent PE and DVT??on Eliquis, iron deficiency anemia, chronic GI bleed, dementia, diabetes and JENNIFER who is presenting due to a syncopal episode and chest pain. ?? Syncope Hypovolemia Chest pain ?? Patient's family reports she was not eating or drinking enough lately. Hypovolemia due to decreased PO intake would explain patient's YOVANNY and hyperkalemia.??Symptoms??before fall fits orthostatic dysregulation more??than a cardiac cause.??History of recurrent chest pain does not??sound like angin a.??EKG and labs??also??do not suggest ACS, and cardiac testing in recent years is reassuring of low CAD burden. Aortic valve stenosis should continue to be??monitored outpatient.??Patient??does not require additional cardiac??testing and??patient is cleared??for??discharge from cardiology perspective. ? Patient seen and discussed with attending, Dr. Quinones ?? Sg Winslow MD Internal Medicine, PGY-1 Histories Allergies Allergies ?(Active and Proposed Allergies Only) enalapril? (Severity: Unknown severity, Onset: Unknown) ?Reactions: hyperkalemia Bactrim? (Severity: Unknown severity, Onset: Unknown) ?Reactions: hyperkalemia ?Comments: Hyperkalemia when used together with lisinopril Lidocaine, Topical? (Severity: Unknown severity, Onset: Unknown) morphine? (Severity: Unknown severity, Onset: Unknown) ?Reactions: itchy penicillin? (Severity: Unknown severity, Onset: Unknown) ?Reactions: RASH ? 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 Back pain Bilateral pulmonary embolism Calcium oxalate crystals in urine Cataract Cervical facet syndrome Cholecystectomy 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 Chronic kidney disease (CKD)- stage 3 Deep vein thrombosis (DVT) Dementia, vascular Diabetes mellitus type 2 Diabetic angiopathy Diabetic neuropathy Diastolic dysfunction Dry skin Dysuria Esophageal varices Fibromyalgia muscle pain Gastritis Hearing test abnormal Hepatitis C Hypercholesterolemia Hyperparathyroidism s/p right lower parathyroidectomy 06/16/2008 Hypertension Hysterectomy Incontinence of urine Iron deficiency anemia Left ventricular hypertrophy 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 Past Surgical History Intracapsular cataract extraction with insertion of intraocular lens prosthesis (1 stage procedure): 2008 Parathyroidectomy-right lower parathyroidectomy: 06/16/08 Cholecystectomy with exploration of common duct; with transduodenal sphincterotomy or sphincteroplasty, with or without cholangiography: 1975 hysterectomy: 1975 ? Social History Alcohol Details:??Use: Never. Employment/School Details:??Status: Disabled. Home/Environment Details:??Living situation: Home/Independent. ??Lives with: friend. ??Domestic violence in household: No. ??Alcohol in household: No. ??Firearms in household: No. ??Substance abuse in household: No. ??Smoker in household: No. Substance Abuse Details:??Use: Never. Tobacco Details:??Use: Never (less than 100 in lifetime). Details:??Never smoker, Type: Cigarettes. ? Family History No family history recorded. ? Medications Home Medications Acetaminophen (acetaminophen 650 mg oral tablet, extended release)?2?tab(s)?1,300?Milligram?By Mouth?Every 8 hours?as needed?Pain?(do not crush or chew)(not to exceed 6 tablets/day) Albuterol (Ventolin HFA 108 mcg/inh inhalation aerosol with adapter)?2?puff(s)?Inhalation?4 times a day?as needed?Wheezing/Shortness of Breath?dispense when patient request it Amlodipine (Norvasc 5 mg oral tablet)?5?Milligram?1?tablet?By Mouth?Daily?for 90?Days Ammonium Lactate 12% (ammonium lactate 12% topical cream)?1?applicator?Topically?2 times a day apixaban (Eliquis 5 mg oral tablet)?1?tab(s)?5?Milligram?By Mouth?2 times a day BusPIRone (busPIRone 15 mg oral tablet)?See Instructions?TAKE 1/3- 1/2 HALF TABLET IN THE MORNING AND IN P.M. NEEDED & 1 TAB AT AL ACOSTARSE Capsaicin Topical (capsaicin 0.025% topical cream)?1?rc?Topically?3 times a day Diclofenac Topical (Voltaren 1% topical gel)?2?gram?Topically?4 times a day?for 14?Days Durable Medical Equipment (Freestyle Lite Test Strips)?See Instructions?for 30?Days?Check up to 5 times daily. E11.65 Durable Medical Equipment (Lancets)?See Instructions?use 4 xday for blood sugar testing DM type 2 insulin dependent, hyperglycemia/ hypoglycemiaFree Style Lite ICD10 ??E11.65/E11.649, Z 79.4 Durable Medical Equipment (Compression- Lower Extremity (Knee High))?See Instructions?use daily; closed toes; 10-20 mmHg. Dx peripheral vascular insufficiency I 87.2 Durable Medical Equipment ([id number] medical-grade oxford diabetic shoes, depth or hightop)?See Instructions?wide ??shoes; wear every day ??in both foot Dx DM type 2 ??with peripheral neuropathy ICD10 E11.40; DMtype 2 pressure callus 11.628, ??right bunion M20.11 1 pair Durable Medical Equipment (Shoes insert, molded to foot)?See Instructions?wear every day ??inboth foot Dx DM type 2 ??with peripheral neuropathy ICD10 E11.40; DMtype 2 pressure callus 11.628 ??right bunion M20.11 3 pairs Durable Medical Equipment (TENS electrode pads)?See Instructions?use as directed for back pain Dx LBP M54.91 box of 4 Durable Medical Equipment (Freestyle rony 2 reader)?See Instructions?use as directed for Type 2 Diabetes Mellitus,E11.65 Durable Medical Equipment (Skin Tac Wipe (Adhesive Barrier Wipe))?See Instructions?Use 1 wipeevery 14 days with sensor change. Clean and dry skin, then wipe with Skin Tac and let dry. Once dryapply sensor. Durable Medical Equipment (Pen [place], 32 G x 4 mm BD Ultra Fine III)?See Instructions?Use ??as ??directed to inject insulin ?4 ??times ??per day. E11.9 Durable Medical Equipment (Freestyle rony 2 sensor)?See Instructions?use as directed to continuously monitor glucose for Type 2 Diabetes Mellitus, replace sesnor every 14 days. Scan sensor at least every 8 hours. Durable Medical Equipment (Glucose Tablets)?See Instructions?Chew 4 tablets as needed for blood sugar less than 70. Durable Medical Equipment (Alcohol Wipes)?See Instructions?Use inject insulin and check bloodsugar up to 5 times daily. E11.9 Escitalopram (escitalopram 20 mg oral tablet)?1?tab(s)?20?Milligram?By Mouth?Daily Esomeprazole (esomeprazole 40 mg oral enteric coated capsule)?See Instructions?TAKE 1 CAPSULEBY MOUTH DAILY 30 MINUTES BEFORE BREAKFAST Famotidine (famotidine 40 mg oral tablet)?1?tab(s)?40?Milligram?By Mouth?Daily atbedtime?for 90?Days?If 40 mg tablet is not available, can be changed to 20 mg tablet 2 tablet at bedtime Ferrous Sulfate (ferrous sulfate 325 mg oral tablet)?1?tab(s)?325?Milligram?By Mouth?Daily?May take with food to minimize abdominal discomfort. Do not take with milk. Take preferrably with juice. fluticasone/umeclidinium/vilanterol (Trelegy Ellipta inhalation powder)?TOME ALIN INHALACI N POR V A ORAL TODOS LOS D fluticasone/umeclidinium/vilanterol (Trelegy Ellipta inhalation powder)?1?puff(s)?Inhalation?Daily?at the same time every day Glucagon (Baqsimi Two Pack 3 mg nasal powder)?3?Milligram?Naris, Right?Once?Please use for a low blood sugar emergency, may repeat in 15 minutes Insulin Aspart (NovoLOG FlexPen 100 units/mL subcutaneous solution)?See Instructions?Inject subcutaneously NovoLog per scale up to 3 times per day before meals. Max daily dose 30 units. 100-150? 4 unit; 151-200 ? 5 units; 201-250 ? 6 units; 251-300 ? 7 ??units; 301-350 ? 8 units; > 351 ? 9 units insulin degludec (Tresiba FlexTouch 200 units/mL subcutaneous solution)?See Instructions?INJECT SUBCUTANEOUSLY 30 UNITS DAILY. E11.9 Isosorbide Mononitrate (isosorbide mononitrate 30 mg oral tablet, extended release)?See Instructions?TOME ALIN TABLETA POR VIA ORAL CADA MANANA Ketotifen Ophthalmic (ketotifen 0.025% ophthalmic solution)?1?Drops?Eyes, Both?Every 12hours?as needed?as needed for eye allergy levocetirizine (levocetirizine 5 mg oral tablet)?1?tab(s)?5?Milligram?By Mouth?Daily before dinner?as needed?allergies linagliptin (Tradjenta 5 mg oral tablet)?1?tab(s)?5?Milligram?By Mouth?Daily Lorazepam (LORazepam 0.5 mg oral tablet)?TAKE 1 TABLET BY MOUTH 3 TIMES DAILY NEEDED FOR ANXIETY OR SLEEP Miscellaneous Rx (PLEASE DO ??NOT ERASE ANY NARCOTIC FROM OUTPATIENT MED LIST ??IF ??YOU ARE NOT THE ??PRESCRIBER)?See Instructions?PLEASE DO ??NOT ERASE ANY NARCOTIC FROM OUTPATIENT MED LIST ??IF ??YOU ARE NOT THE ??PRESCRIBER. ??If ??name ??of medication appears ??more than once, it is not a medical error, it ??indicates ??the prescriptions already ??given to the patient for ??future dispensing Miscellaneous Rx (PLEASE DO ??NOT ERASE MEDICATIONS/MEDICAL SUPPLIES FROM OUTPATIENT MED LIST IF YOU ARE NOT THE PRESC)?See Instructions?PLEASE DO ??NOT ERASE MEDICATIONS/MEDICAL SUPPLIES ??FROM OUTPATIENT MED LIST IF YOU ARE NOT THE PRESCRIBER OR PCP, OR ARE NOT CHANGING A MED TO AN ALTERNATE ONE Miscellaneous Rx (Mastic ??Reusable ??Bed ??Pad 34 x ??36 )?See Instructions?Use daily at ??bedtime Dx ??mixed ??urinary incontinence ICD10 ??N39.46Length ??of ??need: 99 Miscellaneous Rx (wipes)?See Instructions?Use ??as ??directed ??to ??clean after ??toileting Dx ??mixed urinary incontinence ICD10 ??N39.46Length ??of ??need: 99 each box of 100 Miscellaneous Rx (Pull ups)?See Instructions?Wear ?? daily during day and ??night. ??Change ??4 times ??a day prn ?? Dx ??mixed urinary incontinence ICD10 ??N39.46Height 159 cm, weight 82 kgLength of need: 99Size- large Miscellaneous Rx (Boost Glucose Control)?1 can?Oral?3 times a day?for 30?Days?indication: malnutrition E46, ??DM ??type 2 E11.9 Montelukast (montelukast 10 mg oral tablet)?10?Milligram?1?tablet?By Mouth?Daily at bedtime?for 90?Days Nitroglycerin (nitroglycerin 0.3 mg sublingual tablet)?PLACE 1 TABLET UNDER TONGUE EVERY 5 MINS,UP TO 3 DOSES NEEDED FOR CHEST PAIN Ondansetron (ondansetron 4 mg oral tablet)?1?tab(s)?4?Milligram?By Mouth?Every 8 hours?as needed?Nausea Oxycodone (oxyCODONE 5 mg oral tablet)?TOME ALIN O DOS TABLETAS POR V A ORAL CADA SEIS HORAS CUANDO SEA NECESARIO PARA EL DOLOR Polyethylene Glycol 3350 (polyethylene glycol 3350 oral powder for reconstitution)?17- 34 Gm?By Mouth?Daily?as needed?as needed for constipation?(dissolve in water or juice) Pravastatin (pravastatin 10 mg oral tablet)?TOME ALIN TABLETA TODOS LOS D Saliva Substitutes (Biotene Moisturizing Mouth oral spray)?See Instructions?[place] directly into mouth; spray is safe to swallow as needed for ??dry ??mouth Senna (Senna-Time 8.6 mg oral tablet)?2?tab(s)?By Mouth?2 times a day?as needed? NEEDED FOR CONSTIPATION,INSTR ? Inpatient Medications Medications (15) Active SCHEDULED: (12) Amlodipine 5 mg Tablet (Norvasc 5 mg oral tablet) ??5 mg, By Mouth, Daily Apixaban 5 mg Tablet (Eliquis) ??5 mg, By Mouth, 2 times a day Breo Ellipta 200 mcg / 25 mcg Inhaler (Breo Ellipta 200 mcg-25 mcg Inhaler) ??1 puffs, Inhalation, Daily BusPIRone 10 mg Tablet (busPIRone 10 mg oral tablet) ??10 mg, By Mouth, 2 times a day Escitalopram 10 mg Tablet (escitalopram 10 mg oral tablet) ??20 mg, By Mouth, Daily Insulin Glargine 100 units/mL Inj (Lantus Inj) ??15 units 0.15 mL, Subcutaneous Injection, Daily atbedtime Insulin Lispro 100 units/mL Inj (3mL) (Insulin LISPRO Sliding Scale) ??2-10 units, Subcutaneous Injection, 3 times a day before meals Isosorbide Mononitrate 30 mg ER Tablet (isosorbide mononitrate 30 mg oral tablet, extended release)??30 mg, By Mouth, Daily Montelukast 10 mg Tablet (montelukast 10 mg oral tablet) ??10 mg, By Mouth, Daily at bedtime Pantoprazole 40 mg EC Tablet (Protonix 40 mg oral delayed release tablet) ??40 mg, By Mouth, Daily Pravastatin 20 mg Tablet (pravastatin 20 mg oral tablet) ??10 mg, By Mouth, Daily Spiriva Respimat 2.5 mcg Inhaler (Spiriva Respimat Inhaler) ??2 puffs, Inhalation, Daily CONTINUOUS: (0) PRN: (3) Acetaminophen 325 mg Tablet (Tylenol 325 mg oral tablet) ??650 mg, By Mouth, Every 6 hours Albuterol 90mcg/Inhalation Inhaler HFA (albuterol CFC free 90 mcg/inh inhalation aerosol) ??180 mcg2 puffs, Inhalation, Every 4 hours Ondansetron 2mg/mL Inj (2mL Vial) (Ondansetron Inj) ??4 mg, IV Push, Every 6 hours ? Results Recent Labs BLOOD COUNT & DIFF WBC 7.7 k/mm3 ()?? 02/03/2023 08:12 RBC 4.57 m/mm3 ()?? 02/03/2023 08:12 Hgb 13.5 Gm/dL ()?? 02/03/2023 08:12 Hct 40.5 % ()?? 02/03/2023 08:12 MCV 88.6 femtoliters ()?? 02/03/2023 08:12 MCH 29.5 pg ()?? 02/03/2023 08:12 MCHC 33.3 g/dL ()?? 02/03/2023 08:12 Platelet Count 178 k/mm3 ()?? 02/03/2023 08:12 RDW-SD 43.5 femtoliters ()?? 02/03/2023 08:12 MPV 10.7 femtoliters ()?? 02/03/2023 08:12 Nucleated RBC (Automated) 0.0 #/100 WBC'S ()?? 02/03/2023 08:12 Abs. NRBC 0.0 k/mm3 ()?? 02/03/2023 08:12 Abs. Neut 5.1 k/mm3 ()?? 02/03/2023 08:12 Abs. Lymph 1.9 k/mm3 ()?? 02/03/2023 08:12 Abs. [place] 0.6 k/mm3 ()?? 02/03/2023 08:12 Abs. Eo 0.1 k/mm3 ()?? 02/03/2023 08:12 Abs. Baso 0.0 k/mm3 ()?? 02/03/2023 08:12 Neut % 66.4 % ()?? 02/03/2023 08:12 Lymph % 24.7 % ()?? 02/03/2023 08:12 [place] % 7.2 % ()?? 02/03/2023 08:12 Eos % 1.0 % ()?? 02/03/2023 08:12 Baso % 0.4 % ()?? 02/03/2023 08:12 Imm Gran 0.3 % ()?? 02/03/2023 08:12 Abs. Imm Gran 0.0 k/mm3 ()?? 02/03/2023 08:12 ?? CARDIAC Nt-Probnp 118 pg/mL ()?? 02/03/2023 08:12 High Sensitivity Troponin (HSTnT) 19 ng/L (High)?? 02/03/2023 08:12 ?? CHEM GENERAL Sodium 135 mmol/L ()?? 02/03/2023 08:12 Potassium 4.8 mmol/L ()?? 02/03/2023 08:12 Chloride 100 mmol/L ()?? 02/03/2023 08:12 Bicarbonate Level 23 mmol/L ()?? 02/03/2023 08:12 Anion Gap 12 ()?? 02/03/2023 08:12 Glucose Level 256 mg/dL (High)?? 02/03/2023 08:12 Glucose, POC 290 mg/dL (High)?? 02/03/2023 04:32 BUN 17 mg/dL ()?? 02/03/2023 08:12 Creatinine-Blood 0.7 mg/dL ()?? 02/03/2023 08:12 Estimated GFR Creatinine 83 ML/MIN/1.73 M2 ()?? 02/03/2023 08:12 Calcium 9.5 mg/dL ()?? 02/03/2023 08:12 Calcium, Ionized pH Corrected 1.24 mmol/L ()?? 02/03/2023 08:12 Magnesium 2.0 mg/dL ()?? 02/03/2023 08:12 Protein, Total 6.9 Gm/dL ()?? 02/03/2023 08:12 Albumin 4.3 Gm/dL ()?? 02/03/2023 08:12 AG Ratio 1.7 ()?? 02/03/2023 08:12 Alkaline Phosphatase 137 units/L (High)?? 02/03/2023 08:12 AST (SGOT) 30 units/L ()?? 02/03/2023 08:12 ALT (SGPT) 73 units/L (High)?? 02/03/2023 08:12 Bilirubin, Total 0.5 mg/dL ()?? 02/03/2023 08:12 ?? HEME OTHER Hold Blue Top SPECIMEN DISCARDED AFTER 4 HOURS. ()?? 02/02/2023 22:47 ?? UA/URINALYSIS Appear/Color, Urine COLORLESS ()?? 02/03/2023 11:40 Specific [place], Urine 1.005 ()?? 02/03/2023 11:40 pH, Urine 6.5 ()?? 02/03/2023 11:40 Albumin, Urine NEGATIVE ()?? 02/03/2023 11:40 Glucose, Urine NEGATIVE ()?? 02/03/2023 11:40 Ketones, Urine NEGATIVE ()?? 02/03/2023 11:40 Bilirubin, Urine NEGATIVE ()?? 02/03/2023 11:40 Hemoglobin, Urine NEGATIVE ()?? 02/03/2023 11:40 Nitrite, Urine NEGATIVE ()?? 02/03/2023 11:40 Leukocyte, Urine NEGATIVE ()?? 02/03/2023 11:40 Urobilinogen NORMAL mg/dL ()?? 02/03/2023 11:40 WBC's, Urine 1 /HPF ()?? 02/03/2023 11:40 RBC's, Urine <1 /HPF ()?? 02/03/2023 11:40 Mucus SLIGHT /LPF ()?? 02/03/2023 11:40 Hold Urine Culture Testing available 48 hours from time of collection. ()?? 02/03/2023 11:40 ?? URINE OTHER Est Creatinine Clearance 54.77 mL/min ()?? 02/03/2023 09:17 ? LFT Albumin: 4.3 Gm/dL (08:12) Alkaline Phosphatase:??137 units/L??High (08:12) ALT (SGPT):??73 units/L??High (08:12) AST (SGOT): 30 units/L (08:12) Bilirubin, Total: 0.5 mg/dL (08:12) ?? Urinalysis Albumin, Urine: NEGATIVE (11:40) Appear/Color, Urine: COLORLESS (11:40) Bilirubin, Urine: NEGATIVE (11:40) Est Creatinine Clearance: 54.77 mL/min (09:17) Est Creatinine Clearance: 34.86 mL/min (00:05) Est Creatinine Clearance: 29.49 mL/min (19:42) Glucose, Urine: NEGATIVE (11:40) Hemoglobin, Urine: NEGATIVE (11:40) Hold Urine Culture: Testing available 48 hours from time of collection. (11:40) Ketones, Urine: NEGATIVE (11:40) Leukocyte, Urine: NEGATIVE (11:40) Mucus: SLIGHT (11:40) Nitrite, Urine: NEGATIVE (11:40) pH, Urine: 6.5 (11:40) RBC's, Urine: <1 (11:40) Specific [place], Urine: 1.005 (11:40) Urobilinogen: NORMAL (11:40) WBC's, Urine: 1 /HPF (11:40) ? Note * Majo Price RN: PERFORM Event Display: Discharge/Transfer Note Hospital Authored Date: [id number] Nursing Discharge Note Entered On: 02/04/2023 11:47 EDT Performed On: 02/04/2023 11:46 EDT by Majo Price RN Nursing Discharge Note 2 Discharge Time : 02/04/2023 11:46 EDT Discharge Level of Care at Discharge : Homehealth/VNA Patient Left Unit Via : Wheelchair Patient Accompanied Off Unit with : Responsible adult DC Instructions Provided & Signed by Pt : Yes Patient Understands D/C Instructions : Yes Patient Instructions Discharge Signed : Yes Did Pt have Specialty Bed or Wound Vac : No Status of Unresolved Issues : home services/PT through [facility] Majo Price RN - 02/04/2023 11:46 EDT * Majo Price RN: PERFORM Event Display: Patient Education/Instruction Authored Date: [id number] Inpatient Adult Discharge Instructions [address] [address] Name: LEONIE CHOU : 1945 Visit: 02/02/2023 18:18:00 Current Date: 02/04/2023 11:14 Account: [id number] Inpatient Adult Discharge Instructions We would like to thank you for allowing us to assist you with your healthcare needs. The following includes patient education materials and information regarding your injury/illness. Our entire staffstrives to provide an excellent experience for our patients and their families. PLEASE ENSURE YOU FOLLOW-UP PER THE INSTRUCTIONS BELOW! ?? YOUR OPINION IS IMPORTANT TO US! Please complete the survey you may receive by mail or email. Your feedback will be used to make improvements to the healthcare experiences of our patients and their families. Surveys are administered by [employer] ?? If further treatment with your primary care physician or another doctor is recommended, it is important for you to keep the appointment. Call your primary care physician or return to the Emergency Department immediately if your condition worsens, fails to improve, or new symptoms develop. If you need to find a doctor, you can call [facility] for a referral at [phone] or toll free at [phone]) or log in to [email or web address].. ?? [facility], in keeping with [facility] guidance, no longer requires face masks for staff, patientsor visitors in most situations. Similiar to time spent indoors at other locations, there is the chance that you were exposed to repiratory viruses during your time with us (such as flu or COVID-19). If you develop symptoms concerning for a viral respiratory infection, please seek testing (and treatment if indicated) from your medical provider or home test kit. ?? You can view and manage your care through the patient portal or by using a health care rc of your choosing. [email or web address] is a website that allows you to securely view your medical information including your hospital discharge summary, office visit summaries, medications and follow-up visits. You can also request appointments, renew medications, and request access to your medical information using a health care rc of your choosing, or just ask a question. You can enroll at [email or web address] or register during your next office visit. You have been discharged from [facility], Patient Care Unit: D3B. If you have any questions regarding these instructions after you leave, please call us and we will be happy to assist you. [facility] Your Care Team Attending Physician Lashawn Lord DO Consulting Providers Joni GARZA, Karthik Discharging Providers Lashawn Lodr DO Reason for Admission Syncope/Near syncope Your Diagnosis Aortic stenosis Postural dizziness with presyncope Pulmonary embolism Diabetes Asthma Hypertension Depression Tests Performed Below is a partial list of the tests performed during your hospitalization. You may have had other tests and procedures not included in this list. Please discuss all test results with your provider. Basic Metabolic Panel Calcium Ionized CBC w/ Differential Comprehensive Metabolic Panel GLUCOSE POC High??Sensitivity??Troponin T Hold Blue Top Tube Magnesium Level ProBNP Urinalysis w/hold for Urine Culture CT Cervical Spine W/O Contrast CT Head/Brain W/O Contrast XR Chest 2 Views Frontal and Lat Primary Care Provider Massimo Figueroa Advance Directive Health Care Proxy on File Yes - Health Care Proxy Yes - MOLST Discharge Vitals Temperature: 98.1 DegF Height: 160 cm Pulse Rate: 86 bpm ?? Respiratory Rate: 17 br/min ?? Systolic Blood Pressure: 110 mm Hg ?? Diastolic Blood Pressure: 57 mm Hg ?? Oxygen Saturation: 98 % ?? Studies Pending All tests and labs ordered during this hospital stay have been completed unless listed below. Please discuss all pending results with your provider listed above in these instructions. ?? No incomplete studies found What to do next Instructions From Your Doctor Discharge Orders Scheduled Follow-Up Appointments Monday 10:20 AM EST ?? With: Candido GARZA, Yolande Correia Where: [facility] [address] [place] [address]- Status: Pending 2022 11:10 AM EST ?? With: Desirae GARZA, Mulu Where: [facility] [address] [place] [address]- Status: Pending You Need to Schedule the Following Appointments Follow Up with??Eleuterio PACHECO, Massimo Toledo When:??Within 2 to 3 weeks, only if needed Where: [address] [place] [id number]- Discharge Medications LEONIE CHOU :1945 Visit Date:02/02/2023 Medications: Please continue your medications until treatment is completed or stopped by your provider. Medications not listed below should be discontinued. Discuss any questions related to medications with your provider. What How Much When Why Instructions Next Dose Unchanged Acetaminophen (acetaminophen 650 mg oral tablet, extended release) 2 tab(s) Oral Every 8 hours as needed for Pain (do not crush or chew) (not to exceed 6 tablets/ day) ?? as needed for pain Unchanged Albuterol (Ventolin HFA 108 mcg/ inh inhalation aerosol with adapter) 2 puff(s) Inhalation 4 times a day as needed for Wheezing/Shortness of Breath dispense when patient request it ?? as needed for wheezing and shortness of breathe Unchanged Amlodipine (Norvasc 5 mg oral tablet) 1 tab(s) Oral Daily Duration: 90 Days 02/05/23 am Unchanged Ammonium Lactate 12% (ammonium lactate 12% topical cream) 1 applicator Topically Twice a day may resume Unchanged apixaban (Eliquis 5 mg oral tablet) 1 tab(s) Oral Twice a day 02/04/23 pm Unchanged BusPIRone (busPIRone 15 mg oral tablet) See instructions TAKE 1/ 3- 1/ 2 HALF TABLET IN THE MORNING AND IN P.M. NEEDED & 1 TAB AT AL ACOSTARSE ?? 02/04/23 pm Unchanged Capsaicin Topical (capsaicin 0.025% topical cream) 1 rc Topically 3 times a day resume Unchanged Diclofenac Topical (Voltaren 1% topical gel) 2 gram Topically 4 times a day Duration: 14 Days resume Unchanged Durable Medical Equipment (Alcohol Wipes) See instructions Type 2 diabetes mellitus with insulin therapy Use inject insulin and check blood sugar up to 5 times daily. E11.9 ?? Unchanged Durable Medical Equipment (Compression- Lower Extremity (Knee High)) See instructions use daily; closed toes; 10-20 mmHg. Dx peripheral vascular insufficiency I 87.2 ?? Unchanged Durable Medical Equipment (Freestyle rony 2 reader) See instructions use as directed for Type 2 Diabetes Mellitus,E11.65 ?? Unchanged Durable Medical Equipment (Freestyle rony 2 sensor) See instructions Type 2 diabetes mellitus with insulin therapy use as directed to continuously monitor glucose for Type 2 Diabetes Mellitus, replace sesnor every 14 days. Scan sensor at least every 8 hours. ?? Unchanged Durable Medical Equipment (Freestyle Lite Test Strips) See instructions Duration: 30 Days Check up to 5 times daily. E11.65 ?? Unchanged Durable Medical Equipment (Glucose Tablets) See instructions Type 2 diabetes mellitus with insulin therapy Chew 4 tablets as needed for blood sugar less than 70. ?? Unchanged Durable Medical Equipment (Lancets) See instructions Diabetes mellitus type2 use 4 xday for blood sugar testing DM type 2 insulin dependent, hyperglycemia/ ??hypoglycemia Free Style Lite ICD10 ??E11.65/ E11.649, Z 79.4 ?? Unchanged Durable Medical Equipment ([id number] medical-grade oxford diabetic shoes, depth or hightop) See instructions wide ??shoes; wear every day ??in both foot Dx DM type 2 ??with peripheral neuropathy ICD10 E11.40;DMtype 2 pressure callus 11.628, ??right bunion M20.11 ?? 1 pair ?? Unchanged Durable Medical Equipment (Pen [place], 32 G x 4 mm BD Ultra Fine III) See instructions Type 2 diabetes mellitus with insulin therapy Use ??as ??directed to inject insulin ?4 ??times ??per day. E11.9 ?? Unchanged Durable Medical Equipment (Shoes insert, molded to foot) See instructions wear every day ??in both foot Dx DM type 2 ??with peripheral neuropathy ICD10 E11.40; DMtype 2 pressure callus 11.628 ??right bunion M20.11 ?? 3 pairs ?? Unchanged Durable Medical Equipment (Skin Tac Wipe (Adhesive Barrier Wipe)) See instructions Use 1 wipe every 14 days with sensor change. Clean and dry skin, then wipe with Skin Tac and let dry. Once dry apply sensor. ?? Unchanged Durable Medical Equipment (TENS electrode pads) See instructions use as directed for back pain Dx LBP M54.9 1 box of 4 ?? Unchanged Escitalopram (escitalopram 20 mg oral tablet) 1 tab(s) Oral Daily 02/05/23 am Unchanged Esomeprazole (esomeprazole 40 mg oral enteric coated capsule) See instructions TAKE 1 CAPSULE BY MOUTH DAILY 30 MINUTES BEFORE BREAKFAST ?? 02/05/23 am Unchanged Famotidine (famotidine 40 mg oral tablet) 1 tab(s) Oral Daily at Bedtime Duration: 90 Days If 40 mg tablet is not available, can be changed to 20 mg tablet 2 tablet at bedtime ?? 02/04/23 bedtime Unchanged Ferrous Sulfate (ferrous sulfate 325 mg oral tablet) 1 tab(s) Oral Daily May take with food to minimize abdominal discomfort. Do not take with milk. Take preferrably with juice. ?? 02/05/23 am Unchanged fluticasone/ umeclidinium/ vilanterol (Trelegy Ellipta inhalation powder) 1 puff(s) Inhalation Daily at the same time every day ?? 02/05/23 am Unchanged fluticasone/ umeclidinium/ vilanterol (Trelegy Ellipta inhalation powder) TOME ALIN INHALACI N POR V A ORAL TODOS LOS D ?? 02/05/23 am Unchanged Glucagon (Baqsimi Two Pack 3 mg nasal powder) 3 Milligram Naris, Right Once T2DM (type 2 diabetes mellitus) Please use for a low blood sugar emergency, may repeat in 15 minutes ?? as needed Unchanged Insulin Aspart (NovoLOG FlexPen 100 units/ mL subcutaneous solution) See instructions Type 2 diabetes mellitus with insulin therapy Inject subcutaneously NovoLog per scale up to 3 times per day before meals. Max daily dose 30 units. 100-150 ? 4 unit; 151-200 ? 5 units; 201-250 ? 6 units; 251-300 ? 7 ??units; 301-350 ? 8 units; > 351 ? 9 units ?? Unchanged insulin degludec (Tresiba FlexTouch 200 units/ mL subcutaneous solution) See instructions Type 2 diabetes mellitus with insulin therapy INJECT SUBCUTANEOUSLY 30 UNITS DAILY. E11.9 ?? Unchanged Isosorbide Mononitrate (isosorbide mononitrate 30 mg oral tablet, extended release) See instructions TOME ALIN TABLETA POR VIA ORAL CADA MANANA ?? 02/05/23 am Unchanged Ketotifen Ophthalmic (ketotifen 0.025% ophthalmic solution) 1 Drops Both eyes Every 12 hours as needed for as needed for eye allergy as needed Unchanged levocetirizine (levocetirizine 5 mg oral tablet) 1 tab(s) Oral Daily before dinner as needed for allergies as needed Unchanged linagliptin (Tradjenta 5 mg oral tablet) 1 tab(s) Oral Daily 02/05/23 am Unchanged Lorazepam (LORazepam 0.5 mg oral tablet) TAKE 1 TABLET BY MOUTH 3 TIMES DAILY NEEDED FOR ANXIETY OR SLEEP ?? as needed Unchanged Miscellaneous Rx (Boost Glucose Control) 1 can Oral 3 times a day Duration: 30 Days indication: malnutrition E46, ??DM ??type 2 E11.9 ?? Unchanged Miscellaneous Rx (PLEASE DO NOT ERASE ANY NARCOTIC FROM OUTPATIENT MED LIST IF YOU ARE NOT THE PRESCRIBER) See instructions PLEASE DO ??NOT ERASE ANY NARCOTIC FROM OUTPATIENT MED LIST ??IF ??YOU ARE NOT THE ??PRESCRIBER. ??If ??name ??of medication appears ??more than once, it is not a medical error, it ??indicates ??the prescriptions already ??given to the patient for ??future dispensing ?? Unchanged Miscellaneous Rx (PLEASE DO NOT ERASE MEDICATIONS/ MEDICAL SUPPLIES FROM OUTPATIENT MED LIST IF YOU ARE NOT THE PRESC) See instructions PLEASE DO ??NOT ERASE MEDICATIONS/ MEDICAL SUPPLIES ??FROM OUTPATIENT MED LIST IF YOU ARE NOT THE PRESCRIBER OR PCP, OR ARE NOT CHANGING A MED TO AN ALTERNATE ONE ?? Unchanged Miscellaneous Rx (Pull ups) See instructions Wear ?? daily during day and ??night. ??Change ??4 times ??a day prn ?? Dx ??mixed urinary incontinence ICD10 ??N39.46 Height 159 cm, weight 82 kg Length of need: 99 Size- large ?? Unchanged Miscellaneous Rx (Mastic Reusable Bed Pad 34 x 36 ) See instructions Use daily at ??bedtime Dx ??mixed ??urinary incontinence ICD10 ??N39.46 Length ??of ??need: 99 ?? Unchanged Miscellaneous Rx (wipes) See instructions Use ??as ??directed ??to ??clean after ??toileting Dx ??mixed urinary incontinence ICD10 ??N39.46 Length ??of ??need: 99 ?? each box of 100 ?? Unchanged Montelukast (montelukast 10 mg oral tablet) 1 tab(s) Oral Daily at Bedtime Duration: 90 Days 02/04/23 bedtime Unchanged Nitroglycerin (nitroglycerin 0.3 mg sublingual tablet) PLACE 1 TABLET UNDER TONGUE EVERY 5 MINS, UP TO 3 DOSES NEEDED FOR CHEST PAIN ?? as needed Unchanged Ondansetron (ondansetron 4 mg oral tablet) 1 tab(s) Oral Every 8 hours as needed for Nausea as needed for nausea Unchanged Oxycodone (oxyCODONE 5 mg oral tablet) TOME ALIN O DOS TABLETAS POR V A ORAL CADA SEIS HORAS CUANDO SEA NECESARIO PARA EL DOLOR ?? as needed Unchanged Polyethylene Glycol 3350 (polyethylene glycol 3350 oral powder for reconstitution) 17- 34 Gm Oral Daily as needed for as needed for constipation (dissolve in water or juice) ?? as needed Unchanged Pravastatin (pravastatin 10 mg oral tablet) TOME ALIN TABLETA TODOS LOS D ?? 02/05/23 Unchanged Saliva Substitutes (Biotene Moisturizing Mouth oral spray) See instructions [place] directly into mouth; spray is safe to swallow as needed for ??dry ??mouth ?? as needed for dry mouth Unchanged Senna (Senna-Time 8.6 mg oral tablet) 2 tab(s) Oral Twice a day as needed for NEEDED FOR CONSTIPATION,INSTR as needed for constipation Test Results Below is a partial list of the most recent Laboratory test results done prior to this discharge. You may have had other tests and procedures not included in this list. Please discuss all test resultswith your provider. Est Creatinine Clearance - 54.77 mL/min (02/03/2023) Basic Metabolic Panel (02/02/2023) ???Sodium - 138 mmol/L???Potassium - 5.2 mmol/L???Chloride - 102 mmol/L???Bicarbonate Level - 25 mmol/L???Anion Gap - 11???Glucose Level - 189 mg/dL???BUN - 22 mg/dL???Creatinine-Blood - 1.1 mg/dL???Estimated GFR Creatinine - 54 ML/MIN/1.73 M2???Calcium - 9.5 mg/dL Calcium Ionized (02/03/2023) ???Calcium, Ionized pH Corrected - 1.24 mmol/L CBC w/ Differential (02/03/2023) ???WBC - 7.7 k/mm3???RBC - 4.57 m/mm3???Hgb - 13.5 Gm/dL???Hct - 40.5 %???MCV - 88.6 femtoliters???MCH - 29.5 pg???MCHC - 33.3 g/dL???Platelet Count - 178 k/mm3???RDW-SD - 43.5 femtoliters???MPV - 10.7 femtoliters???Nucleated RBC (Automated) - 0.0 #/100 WBC'S???Abs. NRBC - 0.0 k/mm3???Abs. Neut - 5.1 k/mm3???Abs. Lymph - 1.9 k/mm3???Abs. [place] - 0.6 k/mm3???Abs. Eo - 0.1 k/mm3???Abs. Baso - 0.0 k/mm3???Neut % - 66.4 %???Lymph % - 24.7 %???[place] % - 7.2 %???Eos % - 1.0 %???Baso % - 0.4 %???Imm Gran - 0.3 %???Abs. Imm Gran - 0.0 k/mm3 Comprehensive Metabolic Panel (02/03/2023) ???Sodium - 135 mmol/L???Potassium - 4.8 mmol/L???Chloride - 100 mmol/L???Bicarbonate Level - 23 mmol/L???Anion Gap - 12???Glucose Level - 256 mg/dL???BUN - 17 mg/dL???Creatinine-Blood - 0.7 mg/dL???Estimated GFR Creatinine - 83 ML/MIN/1.73 M2???Calcium - 9.5 mg/dL???Protein, Total - 6.9 Gm/dL???Albumin - 4.3 Gm/dL???AG Ratio - 1.7???Alkaline Phosphatase - 137 units/L???AST (SGOT) - 30 units/L???ALT (SGPT) - 73 units/L???Bilirubin, Total - 0.5 mg/dL GLUCOSE POC (02/04/2023) ???Glucose, POC - 169 mg/dL High??Sensitivity??Troponin T (02/03/2023) ???High Sensitivity Troponin (HSTnT) - 19 ng/L Hold Blue Top Tube (02/02/2023) ???Hold Blue Top - SPECIMEN DISCARDED AFTER 4 HOURS. Magnesium Level (02/03/2023) ???Magnesium - 2.0 mg/dL ProBNP (02/03/2023) ???Nt-Probnp - 118 pg/mL Urinalysis w/hold for Urine Culture (02/03/2023) ???Appear/Color, Urine - COLORLESS???Specific [place], Urine - 1.005???pH, Urine - 6.5???Albumin, Urine - NEGATIVE???Glucose, Urine - NEGATIVE???Ketones, Urine - NEGATIVE???Bilirubin, Urine - NEGATIVE???Hemoglobin, Urine - NEGATIVE???Nitrite, Urine - NEGATIVE???Leukocyte, Urine - NEGATIVE???Urobilinogen - NORMAL? ?WBC's, Urine - 1 /HPF? ?RBC's, Urine - <1 /HPF? ?Mucus - SLIGHT? ?Hold Urine Culture - Testing available 48 hours from time of collection. 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 Anemia due to GI blood loss?? Anxiety depression?? Asthma with COPD?? AVM (arteriovenous malformation) of colon?? Back pain?? Bilateral pulmonary embolism?? Calcium oxalate crystals in urine?? Cataract?? Cervical facet syndrome?? Cholecystectomy?? 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 Chronic kidney disease (CKD)- stage 3?? Deep vein thrombosis (DVT)?? Dementia, vascular?? Diabetes mellitus type 2?? Diabetic angiopathy?? Diabetic neuropathy?? Diastolic dysfunction?? Dry skin?? Dysuria?? Esophageal varices?? Fibromyalgia muscle pain?? Gastritis?? Hearing test abnormal?? Hepatitis C?? Hypercholesterolemia?? Hyperparathyroidism s/p right lower parathyroidectomy 06/16/2008?? Hypertension?? Hysterectomy?? Incontinence of urine?? Iron deficiency anemia?? Left ventricular hypertrophy?? 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 Memory impairment?? Mitral regurgitation?? Myofascial muscle pain?? narcotic contract w ??DR Florinda Trinh?? Nephrolithiasis?? Obesity?? JENNIFER (obstructive sleep apnea)?? Osteopenia?? Oxygen dependent?? Peripheral venous insufficiency?? Positive PPD?? Primary hyperparathyroidism?? Psychophysiological insomnia?? Pulmonary embolism?? Pulmonary hypertension?? Restless leg syndrome?? Right ventricular dilation?? Seasonal allergic rhinitis?? Subclinical hypothyroidism?? TR (tricuspid regurgitation)?? Tubular adenoma?? Education Materials Below is the list of Educational Leaflet Providered with your Discharge Instructions. Valuables and Belongings I fully understand and agree that [facility] accepts no responsibility for all my personal property including clothing, toilet articles, radios, jewelry, dentures, hearing aids, rings, money, or any other property that is in my possession or is brought to me after admission. I understand certain valuables may be placed in a hospital safe for a short period of time. I understand that the hospital is not liable for loss or damage due to accident, fire, or other natural occurrence while said property is in the safe. I accept full responsibility for any personal property that I keep with me, and will not hold the hospital responsible in case of loss or disappearance. I acknowledge that i have been encouraged to send valuables and belongings home. ?? Review of Valuable and Belonging List: With patient, With family Date for Pt to Sign Valuables/Belongings: 02/03/23 13:11:00 ?? Other Discharge Information ? Pulmonary Rehab Status?? Pulmonary Rehab Discharge Status?? Respiratory Rate: 17 br/min ? Common Emergency Awareness Tips IS IT A STROKE? Act FAST and Check for these signs: FACE Does the face look uneven? ARM Does one arm drift down? SPEECH Does their speech sound strange? TIME Call at any sign of stroke ?? Heart Attack Signs Chest discomfort: Most heart attacks involve discomfort in the center of the chest and lasts more than a few minutes, or goes away and comes back. It can feel like uncomfortable pressure, squeezing, fullness or pain. Discomfort in upper body: Symptoms can include pain or discomfort in one or both arms, back, neck, jaw or stomach. Shortness of breath: With or without discomfort. Other signs: Breaking out in a cold sweat, nausea, or lightheaded. Remember, MINUTES DO MATTER. If you experience any of these heart attack warning signs, call to get immediate medical attention! ?? Smoking can increase your chances of developing chronic health problems and can cause harmful effects to other family members in your house. If you smoke, you are strongly encouraged to quit. Please call [facility] [employer] Link at [phone] or [phone] ([phone]) or log in to [email or web address] for referrals to smoking cessation programs. ?? 067 Suicide & Crisis Lifeline is available 31/10 if you or someone you know needs to find a reason to keep living. By calling 598 you'll be connected to a skilled, trained counselor at a crisis center in your area. INPATIENT DISCHARGE INSTRUCTIONS SIGNATURE PAGE LEONIE CHOU Location:[facility] Registration Date and Time:02/02/2023 18:18 EDT Primary Care Physician: Eleuterio PACHECO, Massimo Toledo, Attending Physician: Lashawn Lord DO, I LEONIE CHOU, have received the above patient education materials/instructions and have verbalizedunderstanding. If ambulance or transport services are being used I further acknowledge being given a choice of service. ?? If you need to contact me, please call me at this number: . Patient/Cold Press Loader Name: Patient/Cold Press Loader Signature: Relationship to Patient: Witness Name/Signature: Date: * Majo Price RN: PERFORM Event Display: Patient Education Leaflets Authored Date: [id number] Preventing Falls in the Home ?? [id number] Prevenci??n de ca??barillas en el hogar Alin persona se puede caer por muchas razones. Los adultos mayores pueden caerse porque el tiempo dereacci??n se vuelve m??s lento con la edad. Los m??sculos y las articulaciones pueden volverse m??sr??gidos, d??farzana o menos flexibles debido a alin enfermedad, el uso de medicamentos o alin afecci??n f??abilio. Otros problemas de shama que hacen que las ca??barillas janet m??s probables incluyen los siguientes: ??? Artritis ??? Mareos o aturdimiento al pararse (hipotensi??n ortost??pranav) ??? Antecedentes de ataque cerebral ??? Mareos ??? Anemia ??? Ciertos medicamentos que se omkar para enfermedades mentales o para controlar la presi??n arterial ??? Problemas de equilibrio o con el paso al caminar ??? Prob lemas urinarios o de la vejiga ??? Antecedentes de ca??barillas ??? Cambios en la vista (vista defectuosa) ??? Cambios en la capacidad de pensar y la memoria (deterioro cognitivo) ??? Debilidad muscular ??? Consumo excesivo de alcohol Las ca??barillas pueden causar lesiones graves, quiana traumatismo de wandy, huesos rotos, articulacionesdislocadas, hemorragia interna y hill. Lesiones quiana estas pueden limitar browning independencia. Consejos de prevenci??n Para ayudar a prevenir las ca??barillas y las lesiones relacionadas con las ca??barillas, siga los consejos que se herminio a continuaci??n.?? Pisos Para que los pisos janet m??s seguros, brett lo siguiente:? Ponga bases antideslizantes debajo de las alfombras. ??? Retire las alfombras gerda??as. ??? Cambie los revestimientos para piso que est??n desgastados. ??? En escaleras alfombradas, fije las alfombras firmemente a cada escal??n con tachuelas. En escaleras no alfombradas, coloque tiras antidesli zantes en los bordes de los escalones. ??? No deje obst??culos ni cables en los pisos y en las escaleras. ??? No deje juguetes de ni??os ni animales en los pisos y en las escaleras. ??? Disponga los muebles de modo que haya v??as libres de circulaci??n. ??? Limpie de inmediato cualquier derrame. Nocamine sobre pisos mojados. Ba??os Para que los ba??os janet m??s seguros, brett lo siguiente:? Instale barras de sujeci??n en la isaac o ducha. ??? Instale un inodoro o un asiento para inodoro elevado. ??? Aplique tiras antideslizantes o coloque alin alfombra de goma a prueba de resbalones en la isaac o ducha. ??? Si??ntese en un asiento para isaac mientras se ba??a. ??? Use alfombras de ba??o con base antideslizante. Iluminaci??n Para mejorar la visibilidad en el hogar, brett lo siguiente:? Tenga a mano alin linterna en cadahabitaci??n. O ponga alin l??mpara junto a la cama que sea f??cil de alcanzar. ??? Ponga lamparillasnocturnas en los dormitorios, los corredores, la cocina y los ba??os. ??? Aseg??rese de que las escaleras est??n essie iluminadas. Debe bibi un interruptor de leonie en la parte inferior y superior de cada cuca. ?? Otros cambios que puede hacer ??? Examine browning casa en busca de riesgos de seguridad. F??nitza especialmente en las sam, los pasillos y el ronda de entrada a la casa. Retire o arregle cualquier problema de seguridad que encuentre. ??? Use zapatos que tengan un calce c??modo. Nunca camine descalzoni use calcetines o pantuflas con suela rei. ??? Visite al proveedor de atenci??n de la vista alin vez al a??o si usa anteojos. [place] sirve para asegurarse de que la receta a??n es correcta para usted. ??? T??mese browning tiempo para subir y bajar escaleras; utilice siempre los pasamanos. Nunca tenga lasdos jim ocupadas con art??culos. ??? Use un collar o pulsera de alerta si es propenso a las ca??barillas. ??? Instale pasamanos a ambos lados de las escaleras y en los pasillos para tener un mejor apoyo. Para prevenir lesiones en las mu??ecas o en los brazos, no utilice los pasamanos para impulsarse hacia arriba. ??? Use un lindsey de alcance para agarrar objetos dif??ciles de alcanzar. ??? Instale barras de sujeci??n donde sea necesario para ponerse de pie. ??? Organice los art??culos que usa con mayor frecuencia. Procure que janet m??s f??ciles de encontrar y de alcanzar. ??? Controle d??nde est??n las mascotas para no tropezar con ellas cuando camina. ?? Last Reviewed Date: 2022 ?? [id number] [employer]. Todos los derechos reservados. Esta informaci??n no pretende sustituir la atenci??n m??dica profesional. S??lo browning m??dico puede diagnosticar y tratar un problema de shama. ?? * Majo Price RN: PERFORM Event Display: Patient Education Leaflets Authored Date: [id number] Hypotension, Orthostatic ?? [id number] Hipotensi??n Ortost??pranav [Orthostatic Hypotension] El rango normal de la presi??n arterial es entre 90/60??y 140/80. La presi??n arterial baja (tambi??n llamada hipotensi??n) es alin disminuci??n de la presi??n??arterial de lo que es normal para usted. La hipotensi??n ortost??pranav es un tipo de presi??n arterial baja que ocurre solamente cuando se cambia la posici??n del cuerpo de acostado a parado. Puede causar s??ntomas de mareo,??aturdimiento o desmayo. Algunas de las causas de la hipotensi??n ortost??pranav: ??? Ciertos medicamentos, incluyendo: o Medicamentos para la presi??n arterial o Diur??ticos (p??ldoras de agua) o Algunos medicamentos para el coraz??n o Algunos antidepresivos o Medicamentos para el dolor, la ansiedad, sedativos y valentín para dormir ??? Deshidrataci??n (por v??katherin, diarrea o poco consumo de l??quidos) ??? Infecci??n severa, fiebre susanna ??? P??rdida de gabino (por ejemplo poruna??hemorragia estomacal o intestinal) El tratamiento depender?? de la causa de browning presi??n arterial baja. Cuidado En [place]: 1. Descanse hasta que mejoren los s??ntomas. 2. Cambie lentamente de la posici??n de estar acostadoa estar de pie. Cuando se levante de la cama, si??ntese en el borde de la cama con jessica piernas hacia abajo frank por lo menos 30 segundos antes de ponerse de pie. Cre[place]moor le da al cuerpo tiempo de ajus tarse al cambio de posici??n. 3. Siga el plan de tratamiento descrito por browning m??dico. Seguimiento con browning m??dico o de acuerdo con lo recomendado por nuestro personal. Busque Prontamente Atenci??n M??dica si algo de lo siguiente ocurre: ??? Mareo, aturdimiento o desmayo ??? Color negruzco o rojizo en??las materias fecales o en el v??katherin ??? Diarrea o v??katherin persistentes ??? Incapacidad de comer o beber ??? Fiebre de 100.4??F (38??C) o m??s susanna, o quiana le haya indicado browning proveedor de atenci??n m??dica ??? Ardor al orinar u orina con olor desagradable Last Reviewed Date: 2016 ?? 9385-1096 [employer]. Todos los derechos reservados. Esta informaci??n no pretende sustituir la atenci??n m??dica profesional. S??lo browning m??dico puede diagnosticar y tratar un problema de shama. ?? Patient Care team information Care Team Personnel Name: Massimo Figueroa Position: [facility] Outreach Member Role: PCP Address: Address: [address] [place] [address] Name: Diamond Weiss RN Position: S RN Member Role: Primary Care Nurse Name: Tiara Cavazos RN Position: [facility] OB RN Member Role: Primary Care Nurse Name: Shreya Boss RN Position: [facility] RN Member Role: Primary Care Nurse Name: Dhruv Khan RN Position: [facility] RN Member Role: Primary Care Nurse Name: Virginia Benson RN Position: [facility] SN RN Member Role: Primary Care Nurse Name: Jaylin Hernandez RN Position: [facility] Onco RN Member Role: Primary Care Nurse Name: Glen Cota MD Position: [facility] Renal MD Member Role: Lifetime Consulting Physician Address: Address: [address] [place] [address] [facility] [place], [place] [address] Name: Carole Toro LPN Position: [facility] RN Member Role: Primary Care Nurse Name: Dorothy SALDANA Attending Position: [facility] ED Medicine MD Name: Kimber Fernandez RN Position: [facility] ED RN W/OE and Tasks Name: Rios Mosher MD Position: [facility] Resident Member Role: ED Resident Address: Address: [address] [place] [address]- Name: Grisel Johns RN Position: [facility] ED RN W/OE and Tasks Member Role: Patient Care Provider Name: Domitila Arana Position: [facility] ED TA [facility] Member Role: Patient Care Provider Care Team Related Persons Name: JOSE ELIAS TODD Address: [place] [address] Name: JOSE ELIAS KIRKLAND Address: home [address] [place] [id number] Name: LEONIE SCHRADER Address: [place] [address]
--- OUTSIDE RECORDS SUMMARY | 2023-10-23 09:51 | XMS_ITS | Continuity of Care Document ---
Author Organization [facility] Address [address] [place] [address]- Care Team Providers Care Machine Printer Name Role Phone Gayathri GARZA, Florinda Primary Care Physician Encounter [facility] Date(s): 10/13/20 - 11/12/20 [facility] [address] [place] [address]- Allergies, Adverse Reactions, Alerts Substance Reaction Severity [...] tablet, 11 Refills, Maintenance, 08/14/20 10:13:00 EDT, [facility]/pharmacy #[id number], 160, cm, 08/14/20 9:34:00 EDT, Height, [...] 01/21/21 19:13:00 EDT, 01/27/20 19:13:00 EDT, Tablet, [facility]/pharmacy #[id number], 167, cm, 01/13/20 8:54:00 EDT, Height, [...] 0 Refills, Maintenance, 10/22/20 10:11:00 EDT, Tablet, [facility]/pharmacy #1026, 160, cm, 10/22/20 9:15:00 EDT, Height, 80.6, kg, 06/03/20 19:00:00 EST, Dry Weight Start Date: 10/22/20 Status: Ordered Cymbalta 60 mg oral enteric coated capsule 1 capsule = 60 mg, By Mouth, Daily, Decrease dose, # 30 capsule, 11 Refills, Maintenance, 01/27/20 19:13:00 EDT, EC Capsule, [facility]/pharmacy #1026, 167, cm, 01/13/20 8:54:00 EDT, Height, [...] tablet, 3 Refills, Maintenance, 06/30/20 14:55:00 EDT, Tablet,[facility]/pharmacy #1026, Discontinue 30- day supply presc... Start [...] 78.8, kg,... Start Date: 01/21/20 Status: Ordered Ftd-eth-mvrdq medical-grade oxford diabetic shoes, depth or hightop Fek-qvf-mlgtu medical-grade oxford diabetic shoes, depth or hightop, [...] 10/30/20 10:25:00 EDT, Route to Pharmacy Electronically, [facility]/pharmacy #1026, Part... Start Date: 10/30/20 Stop Date: 11/27/20 Status: Ordered oxyCODONE 5 mg oral tablet 5 mg, 1, tablet, By Mouth, Every 4 hours, for 28 days, PRN pain dispense not earlier than 11/27/20, # 168 tablet, Refills 0, Tot. Refills 0, Acute 12/25/20 10:25:00 EDT, 11/27/20 10:25:00 EDT, Route to Pharmacy Electronically, [facility]/pharmacy #1026, Part... Start Date: 11/27/20 Stop Date: 12/25/20 Status: Ordered oxyCODONE 5 mg oral tablet 5 mg, 1, tablet, By Mouth, Every 4 hours, for 28 days, PRN pain dispense not earlier than 12/25/20, # 168 tablet, Refills 0, Tot. Refills 0, Acute 01/22/21 10:25:00 EDT, 12/25/20 10:25:00 EDT, Route to Pharmacy Electronically, [facility]/pharmacy #1026, Part... Start Date: 12/25/20 Stop Date: 01/22/21 Status: Ordered oxyCODONE 5 mg oral tablet 5 mg, 1, tablet, By Mouth, Every 4 hours, for 28 days, PRN pain dispense not earlier than 10/02/20, # 168 tablet, Refills 0, Tot. Refills 0, Acute 11/27/20 10:25:00 EDT, 10/30/20 10:25:00 EDT, Route to Pharmacy Electronically, [facility]/pharmacy #1026, Part... Start Date: 10/30/20 Stop Date: 11/27/20 Status: Ordered Pen [place], 32 G x 4 mm BD Ultra [...] 527 Gm,11 Refills, Maintenance, 01/27/20 19:13:00 EDT, [facility]/pharmacy #1026, 17- 34 Gm By Mouth Daily,PRN:asneeded [...] 02/10/20 11:22:00 EST, Route to Pharmacy Electronically, [facility]/pharmacy #1026 Tablet, 167, cm, 01/13/20 8:5... Start [...] Maintenance, 10/15/20 16:28:00 EDT, Routeto Pharmacy Electronically, [facility]/pharmacy #1026, 160... Start Date: 10/15/20 Status: Ordered TENS electrode pads TENS electrode pads, See Instructions, # 1 box, Refills 5, Tot. Refills 5, Maintenance, use as directed for back pain Dx LBP M54.9 1 box of 4, 12/06/16 14:59:01, Compound Start Date: 12/06/16 Status: Ordered Trelegy Ellipta inhalation powder 1 puffs, Inhalation, Daily, at the same time every day given by intellectual property manager , Dr Berkowitz, # 60 each, [...] Gm, 5 Refills, Maintenance, 09/22/20 12:38:00 EDT, [facility]/pharmacy #1026, 2 Gm Topically 4 times a day,x14 days, 160, cm, 09/10/20 9:13:00 EDT, Height, 80.6, kg, 06/03/20 19:00:00 EST, Dry Weight Start Date: 09/22/20 Stop Date: 12/15/20 Status: Ordered [place] Reusable Bed Pad 34 x 36 [place] Reusable Bed Pad 34 x 36 [...] 11 Refills, Maintenance, 10/22/20 10:19:00 EDT, Tablet, [facility]/pharmacy #1026, Partial fill upon patient request if [...] abnormal(Confirmed) 11 12/29/11 Active Hepatitis C(Confirmed) Active nursing home current use of opi ate analgesic-LBP(Confirmed) [...] apnea)(Confirmed) Active Osteopenia(Confirmed) 18, 19 11/16/12 Active *[id number] Care Partn igor More(Confirmed) Active Peripheral venous [...] 11left mild sensorineural hearing loss by [facility] Hearing Evaluation on 12/29/11 12Narcotic [...] lower parathyroidectomy. 06/16/08 SURGEON: Danny Marie M.D. SWITCH CREW SUPERVISOR: Naima Bowling M.D. 21b/l submassive PE diagnosed on Dec 20 in [facility] 22TTE 12/22/15 in [facility]: RV dilatation, RVSP 46 23Per ECHO 05/24/17 Trace mitral regurgitation , trace TC regurgitation w no significant valve pathology 24meg colo July 2009 exc for 2 hyperplastic polyps 25Colonoscopy 2004 at [facility] per letter of Dr Amor Dobbins Social History Social History Type Response Smoking Status Never (less than 100 in lifetime) entered on: 10/22/20 Sex
--- OUTSIDE RECORDS SUMMARY | 2023-10-23 09:51 | XMS_ITS | Continuity of Care Document ---
Author Organization [place] Address [address] [place] [address]- Care Team Providers Care Bonding Machine Setter Name Role Phone Massimo Figueroa Primary Care Physician [phone] [facility] Date(s): 06/05/23 - 06/08/[address] [address]- Encounter Diagnosis Primary osteoarthritis, left hand(Final) - Discharge Disposition: A-D/C Home Attending Physician: Massimo Figueroa Admitting Physician: Not on Staff, Admitting MD Referring Physician: Massimo Figueroa Allergies, Adverse Reactions, [...] virus vaccine, inactivated 6 05/06/04 Gi zeny [id number] 12y+ bivalent booster vax 05/25/22 Given zoster vaccine, inactivated 12/08/21 Given zoster vaccine, inactivated 09/15/21 Given SARS-CoV-2 mRNA ([id number]) vax 09/15/21 Given SARS-CoV-2 (COVID-19) mRNA BNT-162b2 [...] Refills, Maintenance, 05/25/22 12:08:00 EST, ER Tablet, [facility]/pharmacy #2005, Discontinue Motrin, 158, cm, 05/25/22 11:12:00... Start [...] Gm, 11 Refills, Maintenance, 07/21/21 12:43:00 EDT, [facility]/pharmacy #1026, 1 applicator Topically 2 times a day, 160, cm, 07/21/21 10:22:00 EDT, Height, 80.6, kg, 06/03/20 19:00:00 EST, Dry Weight Start Date: 07/21/21 Status: Ordered Baqsimi Two Pack 3 mg nasal powder = 3 mg, Naris, Right, Once, Please use for a low blood sugar emergency, may repeat in 15 minutes, #1 each, 3 Refills, Soft Stop, 03/09/22 11:35:00 EST, [facility]/pharmacy #0838, 160, cm, 03/09/22 10:43:00EST, Height, 78, kg, 01/14/22 19:37:00 EDT, Dry W... Start Date: 03/09/22 Status: Ordered Biotene Moisturizing Mouth oral spray See Instructions, [place] directly into mouth; spray is safe to swallow as needed for dry mouth, # 45mL, 11 Refills, Maintenance, 05/25/22 12:42:00 EST, [facility]/pharmacy #0838, Partial fill upon patient [...] IN P.M. NEEDED & 1 TAB AT [facility], # 180 tablet, 1 Refills, Maintenance, 08/05/22 12:49:00 EDT, [id number], 158, cm, 07/12/22 11:54:00 EDT, Height, 76, kg, 05/07/22 6:04:00 ES... Start Date: 08/05/22 Status: Ordered capsaicin 0.025% topical cream 1 application, Topically, 3 times a day, # 35 Gm, 11 Refills, Maintenance, 07/21/21 12:26:00 EDT, Cream, [facility]/pharmacy #1026, 1 application Topically 3 [...] 11 Refills, Maintenance, 12/06/21 15:04:00 EDT, Tablet, [facility], Partial fill upon patient request [...] tablet, 3 Refills, Maintenance, 07/12/21 18:53:00 EDT, Tablet,[facility], Discontinue 30- day supply presc... Start Date: 07/12/21 Stop Date: 07/07/22 Status: Ordered ferrous sulfate 325 mg oral tablet 1 tablet = 325 mg, By Mouth, Daily, May take with food to minimize abdominal discomfort. Do not take with milk. Take preferrably with juice., # 90 tablet, 3 Refills, Maintenance, 09/15/21 8:56:00 EDT, [facility]/pharmacy #1026, 160, cm, 09/15/21 8:15:00 [...] Refills, Maintenance, 07/08/22 9:47:00 EDT, [id number], 158, cm, 06/16/22 11:27:00 EST, Height, 76, kg, 05/07/22 6:04:00 EST, Dry Weight Start Date: 07/08/22 Status: Ordered ketotifen 0.025% ophthalmic solution 1 drops, Eyes, Both, Every 12 hours, PRN as needed for eye allergy, # 7.5 mL, 11 Refills, Maintenance, 06/25/21 8:34:00 EDT, [facility]/pharmacy #1026, 1 drops Eyes, Both [...] tablet, 0 Refills, Maintenance, 04/18/23 1:50:00 EST, [facility]/pharmacy #0838, 90, TAKE 1 TABLET BY [...] Replace Required Details, Route to Pharmacy Electronically, [facility]/pharmacy #0838, 160, cm, 03/23/23 1... Start [...] 03/09/22 11:54:00 EST, Route to Pharmacy Electronically, [facility]/pharmacy #0838, 160, cm, 03/09/22 10:43:00 [...] # 15... Start Date: 11/24/22 Status: Ordered Tuy-kaw-hojju medical-grade oxford diabetic shoes, depth or hightop Mrl-oeo-oatmn medical-grade oxford diabetic shoes, depth or hightop, [...] DOLOR Start Date: 11/24/22 Status: Ordered Pen [place], 32 G x 4 mm BD Ultra [...] 4 Refills, Maintenance, 05/09/23 10:10:00 EST, Tablet, [facility], Partial fill upon patient [...] Date: 03/09/22 Stop Date: 06/01/22 Status: Ordered [place] Reusable Bed Pad 34 x 36 [place] Reusable Bed Pad 34 x 36 [...] Confirmed 12/29/11 Active Hepatitis C Confirmed Active halfway current use of opiate analgesic-LBP 12 Confirmed [...] Osteopenia 18, 19, 20 Confirmed 11/16/12 Active *[id number] Intake Man Karine More Confirmed Active Peripheral venous insufficiency [...] mild sensorineural hearing loss by [facility] Hearing Evaluation on 12/29/11 12Narcotic [...] lower parathyroidectomy. 06/16/08 SURGEON: Danny Marie M.D. NETWORKS SOFTWARE CONSULTANT: Naima Bowling M.D. 22b/l submassive PE diagnosed on Dec 20 in [facility] 23TTE 12/22/15 in [facility]: RV dilatation, RVSP 46 24Per ECHO 05/24/17 Trace mitral regurgitation , trace TC regurgitation w no significant valve pathology 25meg colo July 2009 exc for 2 hyperplastic polyps 26Colonoscopy 2004 at [facility] per letter of Dr Amor Dobbins Social History Social History Type Response Smoking Status Never (less than 100 in lifetime) entered on: 10/22/20 Sex Patient Care team information Care Team Personnel Name: Massimo Figueroa Position: [facility] Outreach Member Role: PCP Address: Address: [address] [place] [address] Name: Diamond Weiss RN Position: S RN Member Role: Primary Care Nurse Name: Tiara Cavazos RN Position: [facility] OB RN Member Role: Primary Care Nurse Name: Shreya Boss RN Position: [facility] RN Member Role: Primary Care Nurse Name: Dhruv Khan RN Position: [facility] RN Member Role: Primary Care Nurse Name: Virginia Benson RN Position: [facility] SN RN Member Role: Primary Care Nurse Name: Jaylin Hernandez RN Position: [facility] Onco RN Member Role: Primary Care Nurse Name: Glen Cota MD Position: [facility] Renal MD Member Role: Lifetime Consulting Physician Address: Address: [address] [place] [address] [facility] [address] Name: Carole Troo LPN Position: [facility] RN Member Role: Primary Care Nurse Care Team Related Persons Name: JOSE ELIAS TODD Address: [place] [address] Name: JOSE ELIAS KIRKLAND Address: home [address] [place] [address] Name: LEONIE SCHRADER Address: [place] [address]
--- OUTSIDE RECORDS SUMMARY | 2023-10-23 09:52 | XMS_ITS | Continuity of Care Document ---
Author Organization [facility] Address [address] [place] [address]- Care Team Providers Care Salon Sales Consultant Name Role Phone Gayathri GARZA, Florinda Primary Care Physician [facility] Date[facility]s): 06/08/20 - 07/08/20 [facility] [address] [place] [address]- Allergies, Adverse Reactions, Alerts Substance Reaction Severity [...] or fever, (not to exceed 2000 mg/day) zambian, # 100 tablet, 5 Refills, Maintenance, 01/22/20 9:18:00 EDT, [facility]/pharmacy #[id number], 167, cm, 01/13/20 8:54:00 EDT, [...] 06/12/20 8:36:00 EST, Route to Pharmacy Electronically, [facility]/pharmacy #[id number], 160, cm, 06/04/20 11:29:00 EST, Height, 80.6, kg, 06/03/20 19:00:00 EST, Dry Weight Start Date: 06/12/20 Status: Ordered ammonium lactate 12% topical cream 1 applicator, Topically, 2 times a day, # 280 Gm, 11 Refills, Maintenance, 01/27/20 19:13:00 EDT, [facility]/pharmacy #1026, 1 applicator Topically 2 times a day, 167, cm, 01/13/20 8:54:00 EDT, Height, 78.8, kg, 01/01/20 3:41:00 EDT, Dry Weight Start Date: 01/27/20 Status: Ordered Baqsimi Two Pack 3 mg nasal powder = 3 mg, Naris, Right, Once, Please use for a low blood sugar emergency, may repeat in 15 minutes, #2 each, 3 Refills, Soft Stop, 06/26/20 7:30:00 EDT, [facility]/pharmacy #1026, Partial fill upon patient request if the prescription is for a schedule II op... Start Date: 06/26/20 Status: Ordered calcium (as citrate)-vitamin D 315 mg-250 intl units oral tablet 2 tablet, By Mouth, 2 times a day, for 30 days, calcium citrate, # 120 tablet, 11 Refills, Hard Stop 01/21/21 19:13:00 EDT, 01/27/20 19:13:00 EDT, Tablet, [facility]/pharmacy #1026, 167, cm, 01/13/20 8:54:00 EDT, Height, 78.8, kg, 01/01/20 3:41:00 EDT, Dry... Start Date: 01/27/20 Stop Date: 01/21/21 Status: Ordered capsaicin 0.025% topical cream 1 application, Topically, 3 times a day, # 90 Gm, 11 Refills, Maintenance, 02/10/20 11:22:00 EST, Cream, [facility]/pharmacy #[id number], 1 application Topically 3 times [...] Maintenance, 01/27/20 19:13:00 EDT, EC Capsule, [facility]/pharmacy #1026, 167, cm, 01/13/20 8:54:00 EDT, [...] tablet, 2 Refills, Maintenance, 01/22/20 9:38:00 EDT, [facility]/pharmacy #1026, 167, cm, 01/13/20 8:54:00 EDT,... [...] capsule, 3 Refills, Maintenance, 06/30/20 14:54:00 EDT, [facility]/pharmacy #1026, 160, cm, 06/12/20 9:01:00 EST, Height, 80.6, kg, 06/03/20 19:00:00 EST, Dry Weight Start Date: 06/30/20 Stop Date: 06/25/21 Status: Ordered ketotifen 0.025% ophthalmic solution 1 drops, Eyes, Both, Every 12 hours, PRN as needed for eye allergy, # 7.5 mL, 11 Refills, Maintenance, 01/27/20 19:13:00 EDT, [facility]/pharmacy #1026, 1 drops Eyes, Both Every [...] 06/24/20 9:08:00 EDT, Route to Pharmacy Electronically, [facility]/pharmacy #[id number], 160, cm, 06/12/20 9:01:00 EST, Height, 80... Start Date: 06/24/20 Status: Ordered NovoLOG FlexPen 100 units/mL subcutaneous solution See Instructions, Inject up to 26 untis via Insulin sliding scale 3x a day w/meals,MAX daily dose 78 units, E11.65, # 45 mL, 6 Refills, Maintenance, 01/21/20 14:30:00 EDT, [facility]/pharmacy #1026, 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 Start Date: 01/21/20 Status: Ordered Nii-ftb-npbrw medical-grade oxford diabetic shoes, depth or hightop Dsv-fxp-azmfw medical-grade oxford diabetic shoes, depth or hightop, [...] EDT, 06/12/20 10:25:00 EST, Route toPharmacy Electronically, [facility]/pharmacy #1026, Parti... Start Date: 06/12/20 Stop Date: 07/10/20 Status: Ordered oxyCODONE 5 mg oral tablet 5 mg, 1, tablet, By Mouth, Every 4 hours, for 28 days, PRN pain dispense not earlier than 07/10/20, #168 tablet, Refills 0, Tot. Refills 0, Acute 08/07/20 10:25:00 EDT, 07/10/20 10:25:00 EDT, Route toPharmacy Electronically, [facility]/pharmacy #1026, Parti... Start Date: 07/10/20 Stop Date: 08/07/20 Status: Ordered Pen [place], 32 G x 4 mm BD Ultra [...] Gm,11 Refills, Maintenance, 01/27/20 19:13:00 EDT, [facility]/pharmacy #1026, 17- 34 Gm By Mouth [...] 11:22:00 EST, Route to Pharmacy Electronically, [facility]/pharmacy #1026 Tablet, 167, cm, 01/13/20 8:5... [...] 05/01/20 9:28:00 EST, Route to Pharmacy Electronically, [facility]/pharmacy #1026, 167,... Start Date: 05/01/20 Status: Ordered TENS electrode pads TENS electrode pads, See Instructions, # 1 box, Refills 5, Tot. Refills 5, Maintenance, use as directed for back pain Dx LBP M54.9 1 box of 4, 12/06/16 14:59:01, Compound Start Date: 12/06/16 Status: Ordered Trelegy Ellipta inhalation powder 1 puffs, Inhalation, Daily, at the same time every day given by certified orthotist practice manager , Dr Berkowitz, # 60 each, 0 Refills, Maintenance, 11/20/19 13:03:00 EDT, Powder Start Date: 11/20/19 Status: Ordered Tresiba FlexTouch 200 units/mL subcutaneous solution See Instructions, Inject 55 units daily at 9pm, E11.65. titrate accordingly, # 45 mL, 6 Refills, Maintenance, 01/21/20 14:30:00 EDT, [facility]/pharmacy #[id number], 167, cm, 01/13/20 8:54:00 EDT, Height, 78.8, kg, 01/01/20 3:41:00 EDT, Dry Weight Start Date: 01/21/20 Status: Ordered Ventolin HFA 108 mcg/inh inhalation aerosol with adapter 2 puffs, Inhalation, 4 times a day, PRN Wheezing/Shortness of Breath, dispense when patient requestit, # 18 Gm, 5 Refills, Maintenance, 06/12/20 8:41:00 EST, [facility]/pharmacy #1026, 160, cm, 06/04/20 11:29:00 EST, [...] Date: 06/12/20 Stop Date: 09/04/20 Status: Ordered [place] Reusable Bed Pad 34 x 36 [place] Reusable Bed Pad 34 x 36 , [...] apnea)(Confirmed) Active Osteopenia(Confirmed) 18, 19 11/16/12 Active *[id number] Care Partn igor [place](Confirmed) Active Peripheral venous [...] [facility] 12Narcotic [...] lower parathyroidectomy. 06/16/08 SURGEON: Danny Marie M.D. EXPANSION JOINT FINISHER: Naima Bowling M.D. 21b/l submassive PE diagnosed on Dec 20 in [facility] TTE 12/22/15 in [facility]: RV dilatation, RVSP 46 23Per ECHO 05/24/17 Trace mitral regurgitation , trace TC regurgitation w no significant valve pathology 24meg colo July 2009 exc for 2 hyperplastic polyps 25Colonoscopy 2004 at [facility] [place] per letter of Dr Amor Dobbins Social History Social History Type Response Smoking Status Never (less than 100 in lifetime) entered on: 06/12/20 Sex
--- OUTSIDE RECORDS SUMMARY | 2023-10-23 09:52 | XMS_ITS | Continuity of Care Document ---
Author Organization [facility] Address [address] [place] [id number]- Care Team Providers Care Burglar Alarm Operator Name Role Phone Flroinda Trinh MD Primary [id number] Date(s): 09/04/20 - 10/07/[address] [address]- Discharge Disposition: A-D/C Home Attending Physician: Florinda [...] paraguayan, # 100 tablet, 11 Refills, Maintenance, 08/14/20 10:13:00 EDT, [facility]/pharmacy #1026, 160, cm, 08/14/20 9:34:00 EDT, [...] 07/16/20 15:26:00 EDT, Route to Pharmacy Electronically, [facility]/pharmacy #1026, 160, cm, 06/12/20 9:01... Start Date: 07/16/20 Status: Ordered ammonium lactate 12% topical cream 1 applicator, Topically, 2 times a day, # 280 Gm, 11 Refills, Maintenance, 01/27/20 19:13:00 EDT, [facility]/pharmacy #1026, 1 applicator Topically 2 [...] Refills, Soft Stop, 06/26/20 7:30:00 EDT, [facility]/pharmacy #1026, Partial fill upon patient request if the prescription is for a schedule II op... Start Date: 06/26/20 Status: Ordered calcium (as citrate)-vitamin D 315 mg-250 intl units oral tablet 2 tablet, By Mouth, 2 times a day, for 30 days, calcium citrate, # 120 tablet, 11 Refills, Hard Stop 01/21/21 19:13:00 EDT, 01/27/20 19:13:00 EDT, Tablet, [facility]/pharmacy #1026, 167, cm, 01/13/20 8:54:00 EDT, Height, 78.8, kg, 01/01/20 3:41:00 EDT, Dry... Start Date: 01/27/20 Stop Date: 01/21/21 Status: Ordered capsaicin 0.025% topical cream 1 application, Topically, 3 times a day, # 90 Gm, 11 Refills, Maintenance, 02/10/20 11:22:00 EST, Cream, [facility]/pharmacy #1026, 1 application Topically 3 times a day, 167, cm, 10/05/20 8:54:00 EDT, Height, 78.8, [...] tablet, 1 Refills, Maintenance, 08/31/20 14:45:00 EDT, [facility]/pharmacy #1026, 160, cm, 08/14/20 9:34:00 EDT... [...] capsule, 0 Refills, Maintenance, 08/28/20 17:52:00 EDT, [facility]/pharmacy #1026, 160, cm, 08/14/20 9:34:00 EDT, Height, 80.6, kg, 06/03/20 19:00:00 EST, Dry Weight Start Date: 08/28/20 Stop Date: 11/26/20 Status: Ordered ketotifen 0.025% ophthalmic solution 1 drops, Eyes, Both, Every 12 hours, PRN as needed for eye allergy, # 7.5 mL, 11 Refills, Maintenance, 01/27/20 19:13:00 EDT, [facility]/pharmacy #1026, 1 drops Eyes, Both [...] 06/24/20 9:08:00 EDT, Route to Pharmacy Electronically, [facility]/pharmacy #1026, 160, cm, 06/12/20 9:01:00 [...] 78.8, kg,... Start Date: 01/21/20 Status: Ordered Ajf-fyf-ugeoh medical-grade oxford diabetic shoes, depth or hightop Lrv-dzh-grdrc medical-grade oxford diabetic shoes, depth or hightop, [...] 10/30/20 10:25:00 EDT, Route to Pharmacy Electronically, [facility]/pharmacy #1026, Part... Start Date: 10/30/20 Stop Date: 11/27/20 Status: Ordered oxyCODONE 5 mg oral tablet 5 mg, 1, tablet, By Mouth, Every 4 hours, for 28 days, PRN pain dispense not earlier than 11/27/20, # 168 tablet, Refills 0, Tot. Refills 0, Acute 12/25/20 10:25:00 EDT, 11/27/20 10:25:00 EDT, Route to Pharmacy Electronically, [facility]/pharmacy #1026, Part... Start Date: 11/27/20 Stop Date: 12/25/20 Status: Ordered oxyCODONE 5 mg oral tablet 5 mg, 1, tablet, By Mouth, Every 4 hours, for 28 days, PRN pain dispense not earlier than 10/02/20, # 168 tablet, Refills 0, Tot. Refills 0, Acute 10/30/20 10:25:00 EDT, 10/02/20 10:25:00 EDT, Route to Pharmacy Electronically, [facility]/pharmacy #1026, Part... Start Date: 10/02/20 Stop Date: 10/30/20 Status: Ordered oxyCODONE 5 mg oral tablet 5 mg, 1, tablet, By Mouth, Every 4 hours, for 28 days, PRN pain dispense not earlier than 10/02/20, # 168 tablet, Refills 0, Tot. Refills 0, Acute 11/27/20 10:25:00 EDT, 10/30/20 10:25:00 EDT, Route to Pharmacy Electronically, [facility]/pharmacy #1026, Part... Start Date: 10/30/20 Stop Date: 11/27/20 Status: Ordered Pen [place], 32 G x 4 mm BD Ultra [...] Gm,11 Refills, Maintenance, 01/27/20 19:13:00 EDT, [facility]/pharmacy #1026, 17- 34 Gm By [...] 11:22:00 EST, Route to Pharmacy Electronically, [facility]/pharmacy #1026 Tablet, 167, cm, 01/13/20 [...] 05/01/20 9:28:00 EST, Route to Pharmacy Electronically, [facility]/pharmacy #1026, 167,... Start Date: 05/01/20 [...] 09/24/20 11:34:00 EDT, Route to Pharmacy Electronically, [facility]/pharmacy #1026,Partial fill upon patient request if the prescrip... Start Date: 09/24/20 Stop Date: 10/08/20 Status: Ordered Trelegy Ellipta inhalation powder 1 puffs, Inhalation, Daily, at the same time every day given by human resources file clerk , Dr Berkowitz, # 60 each, 0 Refills, Maintenance, 11/20/19 13:03:00 EDT, Powder Start Date: 11/20/19 Status: Ordered Tresiba FlexTouch 200 units/mL subcutaneous solution See Instructions, Inject 55 units daily at 9pm, E11.65. titrate accordingly, # 45 mL, 6 Refills, Maintenance, 01/21/20 14:30:00 EDT, [facility]/pharmacy #1026, 167, cm, 01/13/20 8:54:00 EDT, Height, 78.8, kg, 01/01/20 3:41:00 EDT, Dry Weight Start Date: 01/21/20 Status: Ordered Ventolin HFA 108 mcg/inh inhalation aerosol with adapter 2 puffs, Inhalation, 4 times a day, PRN Wheezing/Shortness of Breath, dispense when patient requestit, # 18 Gm, 5 Refills, Maintenance, 06/12/20 8:41:00 EST, [facility]/pharmacy #1026, 160, cm, 06/04/20 11:29:00 EST, Height, 80.6, kg, 06/03/20 19:00:00 EST,... Start Date: 06/12/20 Status: Ordered Vitamin D3 1000 intl units oral tablet 1 tablet = 1,000 International_Units, By Mouth, Daily, # 90 tablet, 1 Refills, Maintenance, 04/15/20 12:22:00 EST, [facility]/pharmacy #1026, 167, cm, 04/13/20 10:16:00 EST, Height, 78.8, kg, 01/01/20 3:41:00 EDT, Dry Weight Start Date: 04/15/20 Status: Ordered Voltaren 1% topical gel = 2 Gm, Topically, 4 times a day, # 100 Gm, 5 Refills, Maintenance, 09/22/20 12:38:00 EDT, [facility]/pharmacy #1026, 2 Gm Topically 4 times a day,x14 days, 160, cm, 09/10/20 9:13:00 EDT, Height, 80.6, kg, 06/03/20 19:00:00 EST, Dry Weight Start Date: 09/22/20 Stop Date: 12/15/20 Status: Ordered [place] Reusable Bed Pad 34 x 36 [place] Reusable Bed Pad 34 x 36 [...] apnea)(Confirmed) Active Osteopenia(Confirmed) 18, 19 11/16/12 Active *[id number] Care Partn igor More(Confirmed) Active Peripheral venous [...] veins diagnosed on Dec [address] [facility] 6insulin dependent 7Per ECHO 05/24/1718 Grade [...] lower parathyroidectomy. 06/16/08 SURGEON: Danny Marie M.D. CORPORATE QUALITY ENGINEER: Niama Bowling M.D. 21b/l submassive PE diagnosed on Dec [address] [facility] 22TTE 12/22/[address] [facility]: RV dilatation, RVSP 46 23Per ECHO 05/24/17 Trace mitral regurgitation , trace TC regurgitation w no significant valve pathology 24meg colo July 2009 exc for 2 hyperplastic polyps 25Colonoscopy 2004 at [facility] [place] per letter of Dr Amor Dobbins Social History Social History Type Response Smoking Status Never (less than 100 in lifetime) entered on: 09/10/20 Sex
--- OUTSIDE RECORDS SUMMARY | 2023-10-23 09:52 | XMS_ITS | Continuity of Care Document ---
Author Organization [facility] Address [address] [place] [address]- Care Team Providers Care Devulcanizer Head Name Role Phone Gayathri GARZA, Florinda Primary Care Physician [facility] Date(s): 04/17/20 - 05/17/20 [facility] [address] [place] [address]- Allergies, Adverse Reactions, Alerts Substance Reaction Severity [...] or fever, (not to exceed 2000 mg/day) bengali, # 100 tablet, 5 Refills, Maintenance, 01/22/20 [...] 01/21/21 19:13:00 EDT, 01/27/20 19:13:00 EDT, Tablet, [facility]/pharmacy #1026, [...] 04/29/20 13:04:00 EST, Route to Pharmacy Electronically, [facility]/pharmacy #1026,167, cm, 04/29/20 9:24:00 EST, Height, 82, kg, ... Start Date: 04/29/20 Status: Ordered famotidine 40 mg oral tablet 1 tablet = 40 mg, By Mouth, Daily at bedtime, If 40 mg tablet is not available, can change to 20 mgtablet 2 tablet at bedtime, # 30 tablet, 2 Refills, Maintenance, 04/04/20 16:07:00 EST, Tablet, [facility]/pharmacy #1026, 167, cm, 02/24/20 17:04:00 EST, [...] 78.8, kg,... Start Date: 01/21/20 Status: Ordered Tqe-inl-uuryh medical-grade oxford diabetic shoes, depth or hightop Bxu-wkv-fnxil medical-grade oxford diabetic shoes, depth or hightop, [...] EST, 05/15/20 10:25:00 EST, Route toPharmacy Electronically, [facility]/pharmacy #1026, Parti... Start Date: 05/15/20 Stop [...] 07/10/20 Stop Date: 08/07/20 Status: Ordered Pen [place], 32 G x [...] 05/01/20 9:28:00 EST, Route to Pharmacy Electronically, [facility]/pharmacy #1026, 167,... Start Date: 05/01/20 Status: Ordered TENS electrode pads TENS electrode pads, See Instructions, # 1 box, Refills 5, Tot. 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 06/16/08 SURGEON: Danny Marie M.D. GAS WELDER: Naima Bowling M.D. 21b/l submassive PE diagnosed on Dec 20 in [facility] 22TTE 12/22/15 in [facility]: RV dilatation, RVSP 46 23Per ECHO 05/24/17 Trace mitral regurgitation , trace TC regurgitation w no significant valve pathology 24meg colo July 2009 exc for 2 hyperplastic polyps 25Colonoscopy 2004 at [facility] [place] per letter of Dr Amor Dobbins Social History Social History Type Response Smoking Status Never (less than 100 in lifetime) entered on: 04/29/20 Sex
--- OUTSIDE RECORDS SUMMARY | 2023-10-23 09:52 | XMS_ITS | Continuity of Care Document ---
Author Organization [facility] Address Unknown Care Team Providers Care Awning Installer Name Role Phone Gayathri GARZA, Florinda Primary Care Physician [facility] Date(s): 01/22/21 - 02/21/21 [facility] Allergies, Adverse Reactions, Alerts Substance Reaction [...] or fever, (not to exceed 2000 mg/day) greenlandic, # 100 tablet, 11 Refills, Maintenance, 08/14/20 10:13:00 EDT, [facility]/pharmacy #1026, 160, cm, 08/14/20 9:34:00 EDT, Height, [...] 11 Refills, Maintenance, 01/18/21 18:00:00 EDT, Tablet, [facility]/pharmacy #1026, 160, cm, 10/22/20 9:15:00 EDT, Height, 80.6, kg, 06/03/20 19:00:00 EST, Dry Weight Start Date: 01/18/21 Status: Ordered escitalopram 20 mg oral tablet 1 tablet = 20 mg, By Mouth, Daily, Discontinue duloxetine 60 mg, # 30 tablet, 11 Refills, Maintenance, 12/09/20 11:15:00 EDT, Tablet, [facility]/pharmacy #1026, Partial fill upon patient [...] 78.8, kg,... Start Date: 01/21/20 Status: Ordered Dik-rge-baeyf medical-grade oxford diabetic shoes, depth or hightop Lgq-upp-cocmp medical-grade oxford diabetic shoes, depth or hightop, [...] to oxycodone 10 mg 0.5 tablets 4 [id number] days for 84 tablets, # 168 tablet, Refills 0,... Start Date: 02/19/21 Stop Date: 03/19/21 Status: Ordered oxyCODONE 5 mg oral tablet 5 mg, 1, tablet, By Mouth, Every 4 hours, for 28 days, PRN pain dispense not earlier than 12/10/21 If oxycodone 5 mg tablet is not available, it can be switched to oxycodone 10 mg 0.5 tablets 4 [id number] days for 84 tablets, # 168 tablet, [...] 04/16/21 Stop Date: 05/14/21 Status: Ordered Pen [place], 32 G x 4 mm BD Ultra [...] 527 Gm,11 Refills, Maintenance, 01/27/20 19:13:00 EDT, [facility]/pharmacy #1026, 17- 34 Gm By [...] 30 tablet, 5 Refills, Maintenance, [facility], 160, cm, 10/22/20 9:15:00 EDT, Height, 80.6, kg, 06/03/20 19:00:00 EST, Dry Weight Start Date: 11/13/20 Status: Ordered Senna 8.6 mg oral tablet 17.2 mg, 2, tablet, By Mouth, 2 times a day, PRN, discontinue docusate, # 60 tablet, Refills 11, Tot. Refills 11, Maintenance, for constipation, 02/10/20 11:22:00 EST, Route to Pharmacy Electronically, [facility]/pharmacy #1026 Tablet, 167, cm, 01/13/20 8:5... Start [...] Maintenance, 10/15/20 16:28:00 EDT, Routeto Pharmacy Electronically, [facility]/pharmacy #1026, 160... Start Date: 10/15/20 Status: Ordered [...] 02/15/21 11:39:00 EST, Route to Pharmacy Electronically, [facility]/pharmacy #1026,Partial fill upon patient request if the prescrip... Start Date: 02/15/21 Stop Date: 03/29/21 Status: Ordered Trelegy Ellipta inhalation powder 1 puffs, Inhalation, Daily, at the same time every day given by caramel cutter helper , Dr Berkowitz, # 60 each, 0 Refills, Maintenance, 11/20/19 13:03:00 EDT, Powder Start Date: 11/20/19 Status: Ordered Tresiba FlexTouch 200 units/mL subcutaneous solution See Instructions, Inject 55 units daily at 9pm, E11.65. titrate accordingly, # 45 mL, 6 Refills, Maintenance, 01/21/20 14:30:00 EDT, [facility]/pharmacy #1026, 167, cm, 01/13/20 8:54:00 EDT, Height, [...] Date: 02/15/21 Stop Date: 05/10/21 Status: Ordered [place] Reusable Bed Pad 34 x 36 [place] Reusable Bed Pad 34 x 36 , [...] 11 Refills, Maintenance, 10/22/20 10:19:00 EDT, Tablet, [facility]/pharmacy #1026, Partial fill upon patient request if the prescription is for a schedule II opioid drug., 1 tablet B... Start Date: 10/22/20 Status: Ordered Zofran 4 mg oral tablet 1 tablet = 4 mg, By Mouth, Every 8 hours, PRN Nausea & Vomiting, # 15 tablet, 1 Refills, Maintenance, 09/10/20 9:48:00 EDT, Tablet, 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(Confirmed) Active Peripheral venous insufficiency(Confirmed) 10/31/11 [...] 1 11left mild sensorineural hearing loss by [facility] Hearing Evaluation on 12/29/11 12Narcotic [...] lower parathyroidectomy. 06/16/08 SURGEON: Danny Marie M.D. POLYMERIZATION KETTLE OPERATOR: Naima Bowling M.D. 21b/l submassive PE diagnosed on Dec 20 in [facility] 22TTE 12/22/15 in [facility]: RV dilatation, RVSP 46 23Per ECHO 05/24/17 Trace mitral regurgitation , trace TC regurgitation w no significant valve pathology 24meg colo July 2009 exc for 2 hyperplastic polyps 25Colonoscopy 2004 at [facility] [place] per letter of Dr Amor Dobbins Social History Social History Type Response Smoking Status Never (less than 100 in lifetime) entered on: 10/22/20 Sex
--- OUTSIDE RECORDS SUMMARY | 2023-10-23 09:52 | XMS_ITS | Continuity of Care Document ---
Author Organization [facility] Address Unknown Care Team Providers Care Training Technician Name Role Phone Gayathri GARZA, Florinda Primary Care Physician [place] [facility] [place] 03/05/21 - 04/04/21 [facility] Allergies, Adverse Reactions, Alerts Substance Reaction Severity [...] 11 Refills, Maintenance, 08/14/20 10:13:00 EDT, [facility]/pharmacy #1026, 160, cm, 08/14/20 9:34:00 EDT, Height, [...] Refills, Maintenance, 01/18/21 18:00:00 EDT, Tablet, [facility]/pharmacy #1026, 160, cm, 10/22/20 9:15:00 EDT, Height, 80.6, kg, 06/03/20 19:00:00 EST, Dry Weight Start Date: 01/18/21 Status: Ordered escitalopram 20 mg oral tablet 1 tablet = 20 mg, By Mouth, Daily, Discontinue duloxetine 60 mg, # 30 tablet, 11 Refills, Maintenance, 12/09/20 11:15:00 EDT, Tablet, [facility]/pharmacy #1026, Partial fill upon patient request if [...] 3 Refills, Maintenance, 06/30/20 14:55:00 EDT, Tablet,[facility]/pharmacy #1026, Discontinue 30- day supply presc... Start [...] 78.8, kg,... Start Date: 01/21/20 Status: Ordered Ajw-yjn-eritc medical-grade oxford diabetic shoes, depth or hightop Ksm-vzs-xpizx medical-grade oxford diabetic shoes, depth or hightop, [...] to oxycodone 10 mg 0.5 tablets 4 [id number] days for 84 tablets, # 168 tablet, [...] 04/19/21 Stop Date: 05/17/21 Status: Ordered Pen [place], 32 G x 4 mm BD Ultra [...] HDZ, # 30 tablet, 5 Refills, Maintenance, [id number], 160, cm, 10/22/20 9:15:00 EDT, Height, 80.6, kg, 06/03/20 19:00:00 EST, Dry Weight Start Date: 11/13/20 Status: Ordered Senna 8.6 mg oral tablet 17.2 mg, 2, tablet, By Mouth, 2 times a day, PRN, discontinue docusate, # 60 tablet, Refills 11, Tot. Refills 11, Maintenance, for constipation, 02/10/20 11:22:00 EST, Route to Pharmacy Electronically, [facility]/pharmacy #1026 Tablet, 167, cm, 01/13/20 8:5... Start [...] 17:50:00 EST, Route to Pharmacy Electronically, [facility]/pharmacy #1026, 1... Start Date: 02/22/21 Status: Ordered [...] 11:39:00 EST, Route to Pharmacy Electronically, [facility]/pharmacy #1026,Partial fill upon patient request if the prescrip... Start Date: 02/15/21 Stop Date: 03/29/21 Status: Ordered Trelegy Ellipta inhalation powder 1 puffs, Inhalation, Daily, at the same time every day given by winch driver , Dr Berkowitz, # 60 each, 0 Refills, Maintenance, 11/20/19 13:03:00 EDT, Powder Start Date: 11/20/19 Status: Ordered Tresiba FlexTouch 200 units/mL subcutaneous solution See Instructions, Inject 55 units daily at 9pm, E11.65. titrate accordingly, # 45 mL, 6 Refills, Maintenance, 01/21/20 14:30:00 EDT, [facility]/pharmacy #1026, 167, cm, 01/13/20 8:54:00 EDT, Height, [...] Date: 02/15/21 Stop Date: 05/10/21 Status: Ordered [place] Reusable Bed Pad 34 x 36 [place] Reusable Bed Pad 34 x 36 , [...] Refills, Maintenance, 10/22/20 10:19:00 EDT, Tablet, [facility]/pharmacy #1026, Partial fill upon patient request if the prescription is for a schedule II opioid drug., 1 tablet B... Start Date: 10/22/20 Status: Ordered Zofran 4 mg oral tablet 1 tablet = 4 mg, By Mouth, Every 8 hours, PRN Nausea & Vomiting, # 15 tablet, 1 Refills, Maintenance, 09/10/20 9:48:00 EDT, Tablet, [facility]/pharmacy #1026, Partial fill upon patient request if [...] apnea)(Confirmed) Active Osteopenia(Confirmed) 18, 19 11/16/12 Active *[id number] [facility] Active Peripheral venous insufficiency(Confirmed) 10/31/11 Active [...] lower parathyroidectomy. 06/16/08 SURGEON: Danny Marie M.D. EXPERT MEDICAL WRITER: Naima Bowling M.D. 21b/l submassive PE diagnosed on Dec 20 in [facility] 22TTE 12/22/15 in [facility]: RV dilatation, RVSP 46 23Per ECHO 05/24/17 Trace mitral regurgitation , trace TC regurgitation w no significant valve pathology 24meg colo July 2009 exc for 2 hyperplastic polyps 25Colonoscopy 2004 at [facility] [place] per letter of Dr Amor Dobbins Social History Social History Type Response Smoking Status Never (less than 100 in lifetime) entered on: 10/22/20 Sex
--- OUTSIDE RECORDS SUMMARY | 2023-10-23 09:52 | XMS_ITS | Continuity of Care Document ---
Author Organization [facility] Address Unknown Care Team Providers Care Vice President Quality Assurance Name Role Phone Gayathri GARZA, Florinda Primary Care Physician Encounter [facility] Date(s): 10/30/20 - 11/29/20 [facility] Allergies, Adverse Reactions, Alerts [...] by Kendall 10Result Comment: [05/13/2014] Ordered by Kenadll 11Result Comment: [10/16/2012] ORDERED BY 12Admin Note: VIS 01/13/09 GIVEN 13Admin Note: ADMINISTERED BY RN 14Admin Note: VIS 02/26/08 GIVEN Medications acetaminophen 500 mg oral tablet 2 tablet = 1,000 mg, By Mouth, Every 6 hours, PRN as needed for pain or fever, (not to exceed 2000 mg/day) [place], # 100 tablet, 11 Refills, Maintenance, 08/14/20 [...] Maintenance, 01/27/20 19:13:00 EDT, EC Capsule, [facility]/pharmacy #1026, 167, cm, 01/13/20 8:54:00 EDT, Height, 78.8, kg, 01/01/20 3:41:00 EDT, Dry Weight Start Date: 01/27/20 Status: Ordered Eliquis 5 mg oral tablet 1 tablet = 5 mg, By Mouth, 2 times a day, # 60 tablet, 11 Refills, Maintenance, 02/10/20 11:22:00 EST, Tablet, [facility]/pharmacy #1026, 167, cm, 01/13/20 8:54:00 EDT, Height, 78.8, kg, 01/01/20 3:41:00 EDT, Dry Weight Start Date: 02/10/20 Status: Ordered famotidine 40 mg oral tablet 1 tablet = 40 mg, By Mouth, Daily at bedtime, If 40 mg tablet is not available, can be changed to 20 mg tablet 2 tablet at bedtime, # 90 tablet, 3 Refills, Maintenance, 06/30/20 14:55:00 EDT, Tablet,[facility]/pharmacy #1026, Discontinue 30- day [...] 6 Refills, Maintenance, 01/21/20 14:30:00 EDT, [facility]/pharmacy #1026, 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 Start Date: 01/21/20 Status: Ordered Yyc-mog-fgsvg medical-grade oxford diabetic shoes, depth or hightop Aro-kle-yxpcs medical-grade oxford diabetic shoes, depth or hightop, [...] 11/27/20 16:00:00 EDT, Route to Pharmacy Electronically, [facility]/pharmacy #1026, Part... Start Date: 11/27/20 Stop Date: 12/25/20 Status: Ordered oxyCODONE 5 mg oral tablet 5 mg, 1, tablet, By Mouth, Every 4 hours, for 28 days, PRN pain dispense not earlier than 12/25/20, # 168 tablet, Refills 0, Tot. Refills 0, Acute 01/22/21 10:25:00 EDT, 12/25/20 10:25:00 EDT, Route to Pharmacy Electronically, [facility]/pharmacy #1026, Part... Start Date: 12/25/20 Stop Date: 01/22/21 Status: Ordered Pen [place], 32 G x 4 mm BD Ultra [...] oral tablet See Instructions, LUCIANO MITCHELL LOS HDZ, # 30 tablet, 5 Refills, Maintenance, [facility], 160, cm, 10/22/20 9:15:00 EDT, Height, 80.6, [...] 10/15/20 16:28:00 EDT, Routeto Pharmacy Electronically, [facility]/pharmacy #1026, 160... Start Date: 10/15/20 Status: Ordered TENS electrode pads TENS electrode pads, See Instructions, # 1 box, Refills 5, Tot. Refills 5, Maintenance, use as directed for back pain Dx LBP M54.9 1 box of 4, 12/06/16 14:59:01, Compound Start Date: 12/06/16 Status: Ordered Trelegy Ellipta inhalation powder 1 puffs, Inhalation, Daily, at the same time every day given by auto parker , Dr Berkowitz, # 60 each, 0 Refills, Maintenance, 11/20/19 13:03:00 EDT, Powder Start Date: 11/20/19 Status: Ordered Tresiba FlexTouch 200 units/mL subcutaneous solution See Instructions, Inject 55 units daily at 9pm, E11.65. 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 06/16/08 SURGEON: Danny Marie M.D. HOSE TESTER: Naima Bowling M.D. 21b/l submassive PE diagnosed on Dec 20 in [facility] 22TTE 12/22/15 in [facility]: RV dilatation, RVSP 46 23Per ECHO 05/24/17 Trace mitral regurgitation , trace TC regurgitation w no significant valve pathology 24meg colo July 2009 exc for 2 hyperplastic polyps 25Colonoscopy 2004 at [facility] [place] per letter of Dr Amor Dobbins Social History Social History Type Response Smoking Status Never (less than 100 in lifetime) entered on: 10/22/20 Sex
--- OUTSIDE RECORDS SUMMARY | 2023-10-23 09:52 | XMS_ITS | Continuity of Care Document ---
Author Organization [facility] Address [address] [place] [address]- Care Team Providers Care Ornamental Metal Worker Helper Name Role Phone Gayathri GARZA, Florinda Primary Care Physician Encounter [facility] Date(s): 10/21/19 - 11/20/19 [facility] [address] [place] [address]- [facility] Allergies, Adverse Reactions, Alerts Substance Reaction Severity [...] or fever, (not to exceed 2000 mg/day) slovenian, # 100 tablet, 11 Refills, Maintenance, 01/16/19 [...] mg, 2, mL, Neb, Daily, given by educational coordinator , Dr Berkowitz, # 120 mL, Refills [...] 09/19/18 15:15:30 EDT, Route to Pharmacy Electronically, [id number], [facility] Start Date: 09/19/18 Status: Ordered famotidine 40 mg oral tablet 1 tablet = 40 mg, By Mouth, Daily at bedtime, If 40 mg tablet is not available, can change to 20 mgtablet 2 tablet at bedtime, # 30 tablet, 2 Refills, Maintenance, 10/09/19 10:01:00 EDT, Tablet, [facility], 159, cm, 09/25/19 14:31... Start Date: 10/09/19 Status: Ordered flunisolide 25 mcg/inh nasal spray 2 puffs, Nasal, 2 times a day, Keep your head down while using dispense when patient request it, # 1 each, 11 Refills, Maintenance, 07/10/19 17:15:00 EDT, [facility]/pharmacy #0957, discontinue nasacort, 2 puffs Nasal [...] capsule, 11 Refills, Maintenance, 06/30/19 9:25:00 EDT, [facility]/pharmacy #0957, 159, cm, 05/20/19 12:19:00 EST, [...] Neb, Daily, PRN for wheezing, given by educational coordinator , Dr Berkowitz, # 30 each, 0Refills, Maintenance, 11/20/19 13:06:00 EDT, Solution Start Date: 11/20/19 Status: Ordered loratadine 10 mg oral tablet 10 mg, 1, tablet, By Mouth, Daily, PRN, 90 days, # 90 tablet, Refills 3, Tot. Refills 3, Maintenance, as needed for allergy symptoms, 01/16/19 8:53:23 EDT, Route to Pharmacy Electronically, [id number], [facility]... Start Date: 01/16/19 [...] tablet, 1 Refills, Maintenance, 09/25/19 11:46:00 EDT, [facility], 159, cm, 05/20/19 12:19:00 EST, Height, 88.1, kg, 04/25/19 16:02:00 EST, Dry Weight Start Date: 09/25/19 Status: Ordered metFORMIN 500 mg oral tablet 1 tablet = 500 mg, By Mouth, 2 times a day, Take 1 tablet 2x a day. E11.65, # 60 tablet, 11 Refills, Maintenance, 09/23/19 9:54:00 EDT, Tablet, [facility], 159, cm, 05/20/19 12:19:00 EST, Height, 88.1, kg, 04/25/19 16:02:00 EST, DrLizbet.. Start Date: 09/23/19 Status: Ordered NovoLOG FlexPen 100 units/mL subcutaneous solution See Instructions, Max daily dose 100 units per day. E11.65, # 45 mL, 11 Refills, Maintenance, 09/23/19 9:56:00 EDT, [facility], DxE11.65, 159, cm, 05/20/19 12:19:00 EST, Height, 88.1, kg, 04/25/19 16:02:00 EST, Dry Weight Start Date: 09/23/19 Status: Ordered Bym-gwr-autzg medical-grade oxford diabetic shoes, depth or hightop Jdw-qsm-yytpd medical-grade oxford diabetic shoes, depth or hightop, [...] 10/25/19 11:43:00 EDT, Route to Pharmacy Electronically, [facility], [place]... Start Date: 10/25/19 Stop Date: 11/22/19 Status: Ordered oxyCODONE 5 mg oral tablet 5 mg, 1, tablet, By Mouth, Every 4 hours, for 28 days, dispense not earlier than 11/22/19, # 140 tablet, Refills 0, Tot. Refills 0, Acute 12/20/19 11:43:00 EDT, 11/22/19 11:43:00 EDT, Route to Pharmacy Electronically, [facility], [place]... Start Date: 11/22/19 Stop Date: 12/20/19 Status: Ordered oxyCODONE 5 mg oral tablet 5 mg, 1, tablet, By Mouth, Every 4 hours, for 28 days, dispense not earlier than 12/20/19, # 140 tablet, Refills 0, Tot. Refills 0, Acute 01/17/20 11:43:00 EDT, 12/20/19 11:43:00 EDT, Route to Pharmacy Electronically, [facility], [place]... Start Date: 12/20/19 Stop Date: 01/17/20 Status: Ordered oxyCODONE 5 mg oral tablet 5 mg, 1, tablet, By Mouth, Every 4 hours, for 28 days, dispense not earlier than 01/17/20, # 140 tablet, Refills 0, Tot. Refills 0, Acute 02/14/20 11:43:00 EST, 01/17/20 11:43:00 EDT, Route to Pharmacy Electronically, [facility], [place]... Start Date: 01/17/20 Stop Date: 02/14/20 Status: Ordered Pen [place], 32 G x 4 mm BD Ultra [...] 527 Gm,11 Refills, Maintenance, 01/16/19 8:53:22 EDT, [facility] Start Date: 01/16/19 Status: Ordered pravastatin [...] 09/25/19 11:08:00 EDT, Route to Pharmacy Electronically, [facility] Tablet, 159, cm, 05/20/19... Start Date: [...] Tot. Refills 5, Maintenance, 05/22/19 20:38:00 EST, [facility] Electron[facility], [facility] Start Date: 05/22/19 Status: Ordered TENS electrode pads TENS electrode pads, See Instructions, # 1 box, Refills 5, Tot. Refills 5, Maintenance, use as directed for back pain Dx LBP M54.9 1 box of 4, 12/06/16 14:59:01, Compound Start Date: 12/06/16 Status: Ordered Trelegy Ellipta inhalation powder 1 puffs, Inhalation, Daily, at the same time every day given by educational coordinator , Dr Berkowitz, # 60 each, 0 Refills, Maintenance, 11/20/19 13:03:00 EDT, Powder Start Date: 11/20/19 Status: Ordered Tresiba FlexTouch 200 units/mL subcutaneous solution See Instructions, Max daily dose 100 units per day. E11.65, # 18 mL, 5 Refills, Maintenance, 09/23/19 9:57:00 EDT, [facility], 159, cm, 05/20/19 12:19:00 EST, Height, 88.1, kg, 04/25/19 16:02:00 EST, Dry Weight Start Date: 09/23/19 Status: Ordered Ventolin HFA 108 mcg/inh inhalation aerosol with adapter 2 puffs, Inhalation, 4 times a day, PRN Wheezing/Shortness of Breath, dispense when patient requestit, # 18 Gm, 5 Refills, Maintenance, 07/10/19 17:15:00 EDT, [facility]/pharmacy #0957, 159, cm, 05/20/19 12:19:00 EST, Height, 88.1, kg, 04/25/19 16:02:00 EST... Start Date: 07/10/19 Status: Ordered Vitamin D3 1000 intl units oral tablet 1 tablet = 1,000 International_Units, By Mouth, Daily, # 90 tablet, 1 Refills, Maintenance, 10/09/19 10:01:00 EDT, [facility], 159, cm, 09/25/19 14:31:00 EDT, Height, 88.1, kg, 04/25/19 16:02:00 EST, Dry Weight Start Date: 10/09/19 Status: Ordered [place] Reusable Bed Pad 34 x 36 [place] Reusable Bed Pad 34 x 36 , [...] apnea)(Confirmed) Active Osteopenia(Confirmed) 18, 19 11/16/12 Active *[id number]-[facility] Partn david [place](Confirmed) Active Peripheral [...] lower parathyroidectomy. 06/16/08 SURGEON: Danny Marie M.D. HOMICIDE SQUAD LIEUTENANT: Naima Bowling M.D. 21b/l submassive PE diagnosed on Dec 20 in [facility] 22TTE 12/22/15 in [facility]: RV dilatation, RVSP 46 23Per ECHO 05/24/17 Trace mitral regurgitation , trace TC regurgitation w no significant valve pathology 24meg colo July 2009 exc for 2 hyperplastic polyps 25Colonoscopy 2004 at [facility] [place] per letter of Dr Amor Dobbins Social History Social History Type Response Smoking Status Never (less than 100 in lifetime) entered on: 04/17/19 Sex
--- OUTSIDE RECORDS SUMMARY | 2023-10-23 09:52 | XMS_ITS | Continuity of Care Document ---
Author Organization [facility] Address [address] [place] [address]- Care Team Providers Care Shape Carver Name Role Phone aGyathri GARZA, Florinda Primary Care Physician [facility] Date(s): 02/24/20 - 03/25/20 [facility] [address] [place] [id number] Attending Physician: Yaya Patino Admitting Physician: [...] or fever, (not to exceed 2000 mg/day) arabic, # 100 tablet, 5 Refills, Maintenance, 01/22/20 [...] tablet, 11 Refills, Maintenance, 01/26/2019:13:00 EDT, Tablet, [facility]/pharmacy #1026, 2 tablet By Mouth 2 times a day,x30 days,Instr:calcium citrate, 167, cm, 01/13/20 8:54:00 EDT, Height, 78.8... Start Date: 01/27/20 Stop Date: 01/21/21 Status: Ordered capsaicin 0.025% topical cream 1 application, Topically, 3 times a day, # 90 Gm, 11 Refills, Maintenance, 02/10/20 11:22:00 EST, Cream, [facility]/pharmacy #1026, 1 application Topically [...] Refills, Maintenance, 01/27/20 19:13:00 EDT, EC Capsule, [facility]/pharmacy #1026, 167, cm, 01/13/20 8:54:00 EDT, Height, 78.8, kg, 01/01/20 3:41:00 EDT, Dry Weight Start Date: 01/27/20 Status: Ordered Eliquis 5 mg oral tablet 1 tablet = 5 mg, By Mouth, 2 times a day, # 60 tablet, 11 Refills, Maintenance, 02/10/20 11:22:00 EST, Tablet, [facility]/pharmacy #1026, 167, cm, 01/13/20 8:54:00 EDT, Height, 78.8, kg, 01/01/20 3:41:00 EDT, Dry Weight Start Date: 02/10/20 Status: Ordered famotidine 40 mg oral tablet 1 tablet = 40 mg, By Mouth, Daily at bedtime, If 40 mg tablet is not available, can change to 20 mgtablet 2 tablet at bedtime, # 30 tablet, 2 Refills, Maintenance, 01/22/20 9:37:00 EDT, Tablet, [facility]/pharmacy #1026, 167, cm, 01/13/20 8:54:00 EDT, Heigh... Start Date: 01/22/20 Status: Ordered ferrous sulfate 325 mg oral tablet 1 tablet = 325 mg, By Mouth, Daily, May take with food to minimize abdominal discomfort. Do not take with milk. Take preferrably with juice., # 90 tablet, 2 Refills, Maintenance, 01/22/20 9:38:00 EDT, [facility]/pharmacy #1026, 167, cm, 01/13/20 [...] 01/22/20 9:41:00 EDT, Route to Pharmacy Electronically, [facility]/pharmacy #1026, 167, cm, 01/13/20 [...] 78.8, kg,... Start Date: 01/21/20 Status: Ordered Aqh-oro-xbnyc medical-grade oxford diabetic shoes, depth or hightop Cap-jow-ycsin medical-grade oxford diabetic shoes, depth or hightop, [...] 03/18/20 10:25:00 EST, Route to Pharmacy Electronically, [facility]/pharmacy #1... Start Date: 03/18/20 Stop Date: 04/15/20 [...] 04/15/20 Stop Date: 05/13/20 Status: Ordered Pen [place], 32 G x 4 mm BD Ultra [...] 527 Gm,11 Refills, Maintenance, 01/27/20 19:13:00 EDT, [facility]/pharmacy #1026, 17- 34 Gm [...] 02/10/20 11:22:00 EST, Route to Pharmacy Electronically, [facility]/pharmacy #1026 Tablet, 167, cm, [...] 01/22/20 9:43:00 EDT, Route to Pharmacy Electronically, [facility]/pharmacy #1026, 167,... Start Date: 01/22/20 Status: Ordered TENS electrode pads TENS electrode pads, See Instructions, # 1 box, Refills 5, Tot. Refills 5, Maintenance, use as directed for back pain Dx LBP M54.9 1 box of 4, 12/06/16 14:59:01, Compound Start Date: 12/06/16 Status: Ordered Trelegy Ellipta inhalation powder 1 puffs, Inhalation, Daily, at the same time every day given by flood control engineer , Dr Berkowitz, # 60 each, [...] Dry Weight Start Date: 01/22/20 Status: Ordered [place] Reusable Bed Pad 34 x 36 [place] Reusable Bed Pad 34 x 36 , [...] apnea)(Confirmed) Active Osteopenia(Confirmed) 18, 19 11/16/12 Active *[phone] [facility] Active Peripheral venous insufficiency(Confirmed) 10/31/11 Active Positive [...] 1 11left mild sensorineural hearing loss by [facility] Hearing Evaluation on 12/29/11 12Narcotic [...] lower parathyroidectomy. 06/16/08 SURGEON: Danny Marie M.D. CLERICAL AND ADMINISTRATIVE WORKERS: Naima Bowling M.D. 21b/l submassive PE diagnosed on Dec 20 in [facility] 22TTE 12/22/15 in [facility]: RV dilatation, RVSP 46 23Per ECHO 05/24/17 Trace mitral regurgitation , trace TC regurgitation w no significant valve pathology 24meg colo July 2009 exc for 2 hyperplastic polyps 25Colonoscopy 2004 at [facility] [place] per letter of Dr Amor Dobbins Social History Social History Type Response Smoking Status Never (less than 100 in lifetime) entered on: 12/25/19 Sex
--- OUTSIDE RECORDS SUMMARY | 2023-10-23 09:52 | XMS_ITS | Continuity of Care Document ---
Author Organization [facility] Diabetes Address [address] [place] [address]- Care Team Providers Care Teletype Installer Name Role Phone Gayathri GARZA, Florinda Primary Care Physician [place] [facility] [place]23[place]21 [place] 12/23/21 [facility] Diabetes [address], [place] [address] Attending Physician: Yaya Patino Admitting Physician: AdmtrYaya Referring Physician: Admtr, Ar8 Allergies, Adverse Reactions, Alerts Substance Reaction Severity Status penicillin RASH Active morphine itchy Active Lidocaine, Topical Active Bactrim 1 hyperkalemia Active 1Hyperkalemia when used together with lisinopril Immunizations Given and Recorded Vaccine Date Status Refusal Reason zoster vaccine, inactivated 12/08/21 Given zoster vaccine, inactivated 09/15/21 Given SARS-CoV-2 mRNA (kwqhdbz-wvet-merdh) vax 09/15/21 Given SARS-CoV-2 (COVID-19) mRNA BNT-162b2 [...] 01/19/22 13:10:00 EDT, 12/22/21 13:10:00 EDT, Tablet, [facility] - [facility]... Start Date: 12/22/21 Stop Date: 01/19/22 Status: Ordered acetaminophen-hydrocodone 300 mg-7.5 mg oral tablet 2 tablet, By Mouth, Every 8 hours, for 28 days, for pain fill date Jan 19, 2022 Dx Chronic LBP, renal colic, # 168 tablet, 0 Refills, Acute 02/16/22 13:10:00 EST, 01/19/22 13:10:00 EDT, Tablet, [facility], Partial fi... Start Date: 01/19/22 Stop Date: 02/16/22 Status: Ordered acetaminophen-hydrocodone 300 mg-7.5 mg oral tablet 2 tablet, By Mouth, Every 8 hours, for 28 days, for pain fill date Feb 16, 2022 Dx Chronic LBP, renal colic, # 168 tablet, 0 Refills, Acute 03/16/22 13:10:00 EST, 02/16/22 13:10:00 EST, Tablet, [facility], Partial greyson... Start Date: 02/16/22 Stop [...] 11 Refills, Maintenance, 07/21/21 12:43:00 EDT, [facility]/pharmacy #1026, 1 applicator Topically 2 times a day, 160, cm, 07/21/21 10:22:00 EDT, Height, 80.6, kg, 06/03/20 19:00:00 EST, Dry Weight Start Date: 07/21/21 Status: Ordered Baqsimi Two Pack 3 mg nasal powder = 3 mg, Naris, Right, Once, Please use for a low blood sugar emergency, may repeat in 15 minutes, #2 each, 3 Refills, Soft Stop, 06/26/20 7:30:00 EDT, [facility]/pharmacy #1026, Partial fill upon patient request if the prescription is for a schedule II op... Start Date: 06/26/20 Status: Ordered Biotene Moisturizing Mouth oral spray See Instructions, [place] directly into mouth; spray is safe to swallow as needed for dry mouth, # 45mL, 11 Refills, Maintenance, 07/21/21 12:43:00 EDT, [facility]/pharmacy #1026, [place] directly into mouth; spray is safe to [...] needed for anxiety and 1tab at HS dycmhx-gnc-nfkgs, # 60 tablet, 11 Refills, Maintenance, 09/15/21 9:02:00 EDT, [facility]/pharmacy #1026, Partial fill upon patient request... Start Date: 09/15/21 Status: Ordered capsaicin 0.025% topical cream 1 application, Topically, 3 times a day, # 35 Gm, 11 Refills, Maintenance, 07/21/21 12:26:00 EDT, Cream, [facility]/pharmacy #1026, 1 application Topically 3 times [...] Refills, Maintenance, 04/21/21 18:12:00 EST, Tablet, [facility]/pharmacy #1026, 160, cm, 03/03/21 11:23:00 EST, Height, 80.6, kg, 06/03/20 19:00:00 EST, Dry Weight Start Date: 04/21/21 Status: Ordered escitalopram 20 mg oral tablet 1 tablet = 20 mg, By Mouth, Daily, # 30 tablet, 11 Refills, Maintenance, 12/06/21 15:04:00 EDT, Tablet, [facility], Partial fill [...] 3 Refills, Maintenance, 07/12/21 18:53:00 EDT, Tablet,[facility]/pharm[facility]1026, Discontinue 30- day supply presc... [...] 14:34:00 EST, Route to Pharmacy Electronically, [facility]/pharmacy #1026, Can use with HCTZ, 160, [...] 3 Refills, Maintenance, 11/19/21 14:28:00 EDT, [facility]/pharmacy #1026, 160, cm, 11/05/21 9:50:00 EDT, Height, 80.5, kg, 11/05/21 9:50:00 EDT, Dry Weight Start Date: 11/19/21 Stop Date: 11/14/22 Status: Ordered ketotifen 0.025% ophthalmic solution 1 drops, Eyes, Both, Every 12 hours, PRN as needed for eye allergy, # 7.5 mL, 11 Refills, Maintenance, 06/25/21 8:34:00 EDT, [facility]/pharmacy #1026, 1 drops Eyes, Both Every [...] # 90 tablet, 1 Refills, [id number], 90, TOME GAGE TABLETA POR VIA ORAL TODOS LOS HDZ, 160, cm, 09/21/21 8:54:00 EDT, Height, 80.6,kg, 06/03/20 19:00:00 EST, Dry Weight Start Date: 10/13/21 Status: Ordered Nexium 40 mg oral enteric coated capsule 1 capsule = 40 mg, By Mouth, Daily, 30 minutes before breakfast, # 30 capsule, 11 Refills, Maintenance, 04/28/21 14:00:00 EST, [facility]/pharmacy #1026, Discontinue pantoprazole, 160, cm, 04/28/21 [...] 0 Refills, Maintenance, 09/21/21 9:23:00 EDT, Tablet, [facility], P... Start Date: 09/21/21 Status: Ordered Norvasc 5 mg oral tablet 5 mg, 1, tablet, By Mouth, Daily, # 30 tablet, Refills 0, Tot. Refills 0, Maintenance, 09/21/21 9:23:00 EDT, Route to Pharmacy Electronically, [facility], Partial fill upon patient request if the prescription is for a schedule II o... Start Date: 09/21/21 Status: Ordered NovoLOG FlexPen 100 units/mL subcutaneous solution See Instructions, Inject up to 26 untis via Insulin sliding scale 3x a day w/meals,MAX daily dose 78 units, E11.65, # 45 mL, 6 Refills, Maintenance, 01/21/20 14:30:00 EDT, [facility]/pharmacy #1026, 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 Start Date: 01/21/20 Status: Ordered Glw-xcg-obegd medical-grade oxford diabetic shoes, depth or hightop Cty-kkl-kmary medical-grade oxford diabetic shoes, depth or hightop, See Instructions, # 1 each, Refills 0, Tot. 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 Start Date: 07/21/21 Status: Ordered Pen [place], 32 G x 4 mm BD Ultra [...] 14:02:00 EST, Route to Pharmacy Electronically, [facility]/pharmacy #1026, 160... Start Date: 04/28/21 Stop [...] Gm,11 Refills, Maintenance, 01/27/20 19:13:00 EDT, [facility]/pharmacy #1026, 17- 34 Gm By Mouth [...] Refills, Maintenance, 04/28/21 14:03:00 EST, Tablet, [facility]/pharmacy #1026, 160, cm, 04/28/21 9:50:00 EST, Height, 80.6, kg, 06/03/20 19:00:00 EST, Dry Weight Start Date: 04/28/21 Status: Ordered Senna-Time 8.6 mg oral tablet 2 tablet, By Mouth, 2 times a day, PRN NEEDED FOR CONSTIPATION,INSTR, DISCONTINUE DOCUSATE, # 60tablet, 11 Refills, [id number], 160, cm, 03/03/21 11:23:00 EST, Height, 80.6, [...] 17:50:00 EST, Route to Pharmacy Electronically, [facility]/pharmacy #1026, 1... Start Date: 02/22/21 Status: Ordered tamsulosin 0.4 mg oral capsule See Instructions, TOME 1 CAPSULA POR VIA ORAL TODOS LOS HDZ, # 30 capsule, Refills 0, InstructionsReplace Required Details, Route to Pharmacy Electronically, [id number], 160, cm, 09/21/21 8:54:00 EDT, Height, 80.6, [...] 9:03:00 EDT, Route to Pharmacy Electronically, [facility]/pharmacy #1026, Partial fill upon patient request if the prescri... Start Date: 09/15/21 Stop Date: 03/02/22 Status: Ordered Trelegy Ellipta inhalation powder 1 puffs, Inhalation, Daily, at the same time every day Given by Latex Caster, Dr. Michael Berkowitz, # 60 each, 0 Refills, Maintenance, 07/21/21 11:59:00 EDT, Powder, Partial fill upon patient request if the prescription is for a schedule II opi... Start Date: 07/21/21 Status: Ordered Tresiba FlexTouch 200 units/mL subcutaneous solution See Instructions, INJECT 86 UNITS DAILY AT 9PM, # 45 Unknown, 6 Refills, [facility], 160, cm, 06/21/21 9:57:00 EDT, Height, 80.6, [...] Date: 02/15/21 Stop Date: 05/10/21 Status: Ordered [place] Reusable Bed Pad 34 x 36 [place] Reusable Bed Pad 34 x 36 , [...] Active Osteopenia(Confirmed) 18, 19, 20 11/16/12 Active *[id number] [facility](Confirmed) Active Peripheral venous insufficiency(Confirmed) 10/31/11 Active Positive PPD(Confirmed) 10/09/14 Active Primary hyperparathyroidism( Confirmed) 21 Active Psychophysiological insomnia(Confirmed) Active Bilateral pulmonary embolism(Confirmed) 22 12/21/15 Active Pulmonary embolism(Confirmed) Active Pulmonary hypertension(Confirmed) Active Restless leg syndrome(Confirmed) Active Right ventricular dilation(C onfirmed) 23 12/22/15 Active Seasonal allergic rhinitis(Confirmed) Active Subclinical hypothyroidism(Confirmed) Active TR (tricuspid regurgitation)(Confirmed) 24 05/24/17 Active Tubular adenoma(Confirmed) 25, 04/10/04 Active Calcium oxalate crystals in urine(Confirmed) [...] lower parathyroidectomy. 06/16/08 SURGEON: Danny Marie M.D. STOCK PITCHER: Naima Bowling M.D. 22b/l submassive PE diagnosed on Dec 20 in [facility] 23TTE 12/22/15 in [facility]: RV dilatation, RVSP 46 24Per ECHO 05/24/17 Trace mitral regurgitation , trace TC regurgitation w no significant valve pathology 25meg colo July 2009 exc for 2 hyperplastic polyps 26Colonoscopy 2004 at [facility] [place] per letter of Dr Amor Dobbins Social History Social History Type Response Smoking Status Never (less than 100 in lifetime) entered on: 10/22/20 Sex Care Team Personnel Name: Gayathri GARZA, Florinda Address: [address] [place] [address]
--- OUTSIDE RECORDS SUMMARY | 2023-10-23 09:52 | XMS_ITS | Continuity of Care Document ---
Author Organization [facility] Address [address] [place] [id number]- Care Team Providers Care Bottled Beverage Inspector Name Role Phone Gayathri GARZA, Florinda Primary Care Physician [place] [facility] [place] 07/06/19 [place] [address]- [facility] Attending Physician: Yaya Patino Admitting Physician: AdmYaya [...] slovak, # 100 tablet, 11 Refills, Maintenance, 01/16/19 [...] EST, DryWeight Start Date: 06/30/19 Status: Ordered BD UF SHANNAN PEN NEEDLE [id number] BD UF SHANNAN PEN NEEDLE [id number], 0 Refills, Maintenance, 07/26/18 13:34:55 EDT Start [...] Refills, Maintenance, 03/27/19 9:10:00 EST, EC Capsule, [facility], 159, cm, 03/20/19 14:59:00 EST, Height, 88.3, kg, 12/13/18 10:17:00 EDT, Dry Weight Start Date: 03/27/19 Status: Ordered docusate sodium 100 mg oral tablet 1 tablet = 100 mg, By Mouth, 2 times a day, # 60 tablet, 11 Refills, Maintenance, 05/20/19 12:31:00EST, [facility], 159, cm, 05/20/19 12:19:00 EST, Height, 88.1, kg, 04/25/19 16:02:00 EST, Dry Weight Start Date: 05/20/19 Status: Ordered enalapril 10 mg oral tablet 10 mg, 1, tablet, By Mouth, Daily, 90 days, # 90 tablet, Refills 3, Tot. Refills 3, Maintenance, 09/19/18 15:15:30 EDT, Route to Pharmacy Electronically, [id number], [facility] Start Date: 09/19/18 Status: Ordered famotidine 40 mg oral tablet 1 tablet = 40 mg, By Mouth, Daily at bedtime, If 40 mg tablet is not available, can change to 20 mgtablet 2 tablet at bedtime, # 30 tablet, 5 Refills, Maintenance, 04/17/19 9:17:00 EST, Tablet, [facility], 159, cm, 04/17/19 8:24:0... Start Date: 04/17/19 [...] 11 Refills, Maintenance, 06/30/19 9:25:00 EDT, [facility]/pharmacy #0957, 159, cm, 05/20/19 12:19:00 EST, Height, [...] 01/16/19 8:53:23 EDT, Route to Pharmacy Electronically, [id number], [facility]... Start Date: 01/16/19 Status: [...] EDT, DxE11.65 Start Date: 07/20/18 Status: Ordered Dgq-hrd-aitdn medical-grade oxford diabetic shoes, depth or hightop Juc-rpk-udoem medical-grade oxford diabetic shoes, depth or hightop, [...] 07/05/19 12:47:00 EDT, Route to Pharmacy Electronically, [facility], [place]... Start Date: 07/05/19 Stop Date: 08/02/19 Status: Ordered Pen [place], 32 G x 4 mm BD [...] dinner, # 30 tablet, 2 Refills, Maintenance, 07/04/19 9:16:00 EDT, 159, cm, 05/20/19 12:19:00 EST, Height, 88.1, kg, 04/25/19 16:02:00 EST, Dry Weight Start Date: 07/04/19 Status: Ordered Senna 8.6 mg oral tablet 17.2 mg, 2, tablet, By Mouth, Daily at bedtime, PRN, # 60 tablet, Refills 11, Tot. Refills 11, Maintenance, for constipation, 05/20/19 12:31:00 EST, Route to Pharmacy Electronically, [facility] Tablet, 159, cm, 05/20/19 12:19:00 ES... Start [...] Tot. Refills 5, Maintenance, 05/22/19 20:38:00 EST, [facility] Pharm[facility] Electronically, [facility]... 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-LBP(Confirmed) 10 Active Hypercholesterolemia(Confirmed) Active Hypertension(Confirmed) Active Hysterectomy(Confirmed) Active Incontinence of urine(Confirmed) Active Iron deficiency anemia(Confirmed) Active Left ventricular hypertrophy(Confirmed) 11 Active Memory impairment(Confirmed) Active Mitral regurgitation(Confirmed) 12 05/24/17 Active Nephrolithiasis(Confirmed) 13, 14, 15 06/11/02 Active Obesity(Confirmed) Active JENNIFER (obstructive sleep apnea)(Confirmed) Active Osteopenia(Confirmed) 16, 17 11/16/12 Active *[id number]-[facility] [place](Confirmed) Active Peripheral [...] Dec 20 [facility] 5insulin dependent 6Per ECHO 05/24/1718 [...] parathyroidectomy. 06/16/08 SURGEON: Danny Marie M.D. NURSING PROGRAM COORDINATOR: Naima Bowling M.D. 19b/l submassive PE diagnosed on Dec 20 in [facility] 20TTE 12/22/15 in [facility]: RV dilatation, RVSP 46 21Per ECHO 05/24/17 Trace mitral regurgitation , trace TC regurgitation w no significant valve pathology meg colo July 2009 exc for 2 hyperplastic polyps 23Colonoscopy 2004 at [facility] [place] per letter of Dr Amor Dobbins Social History Social History Type Response Smoking Status Never (less than 100 in lifetime) entered on: 04/17/19 Sex
--- OUTSIDE RECORDS SUMMARY | 2023-10-23 09:52 | XMS_ITS | Continuity of Care Document ---
Author Organization [facility] Address [address] [place] [id number]- Care Team Providers Care Shoe Singer Name Role Phone Gayathri GARZA, Florinda Primary Care Physician Encounter [facility] Date(s): 05/13/22 - 06/12/22 [facility]/[address] [address]- [place] Allergies, Adverse Reactions, Alerts Substance Reaction Severity Status enalapril Active penicillin RASH Active morphine itchy Active Bactrim 1 hyperkalemia Active Lidocaine, Topical Active 1Hyperkalemia when used together with lisinopril Immunizations Given and Recorded Vaccine Date Status Refusal Reason [id number] 12y+ bivalent booster vax 05/25/22 Given influenza [...] zoster vaccine, inactivated 09/15/21 Given SARS-CoV-2 mRNA (vpmhxbj-nrof-oxtxe) vax 09/15/21 Given SARS-CoV-2 (COVID-19) mRNA BNT-162b2 [...] Refills, Maintenance, 05/25/22 12:08:00 EST, ER Tablet, [facility]/pharmacy #0838, Discontinue Motrin, 158, cm, 05/25/22 [...] Biotene Moisturizing Mouth oral spray See Instructions, [place] directly into mouth; spray is safe to [...] needed for anxiety and 1tab at HS ssuisl-gld-vkrky, # 60 tablet, 11 Refills, Maintenance, 09/15/21 9:02:00 EDT, [facility]/pharmacy #1026, Partial fill upon patient request... Start Date: 09/15/21 Status: Ordered capsaicin 0.025% topical cream 1 application, Topically, 3 times a day, # 35 Gm, 11 Refills, Maintenance, 07/21/21 12:26:00 EDT, Cream, [facility]/pharmacy #1026, 1 application Topically 3 [...] Refills, Maintenance, 12/06/21 15:04:00 EDT, Tablet, [facility], Partial fill upon patient [...] tablet, 3 Refills, Maintenance, 09/15/21 8:56:00 EDT, [facility]/pharmacy #1026, 160, cm, 09/15/21 8:15:00 [...] 04/19/22 10:15:00 EST, Route to Pharmacy Electronically, [facility]/pharmacy #1620, Partial fill upon patient request if the prescription is for a schedule II opioi... Start Date: 04/19/22 Status: Ordered ketotifen 0.025% ophthalmic solution 1 drops, Eyes, Both, Every 12 hours, PRN as needed for eye allergy, # 7.5 mL, 11 Refills, Maintenance, 06/25/21 8:34:00 EDT, [facility]/pharmacy #1026, 1 drops Eyes, Both [...] 90 tablet, 3 Refills, 03/09/22 11:57:00 EST, [facility]/pharmacy #0838, 1 tablet By Mouth [...] capsule, 2 Refills, Maintenance, 05/02/22 15:39:00 EST, [facility]/pharmacy #0838, Discontinue pantoprazole, 160, cm, 04/19/22 9:55:00 EST, Height, 76, kg, 04/12/22 16:37:00 EST, Dry Weight Start Date: 05/02/22 Stop Date: 07/31/22 Status: Ordered Norvasc 5 mg oral tablet 5 mg, 1, tablet, By Mouth, Daily, # 90 tablet, Refills 3, Tot. Refills 3, Maintenance, 03/09/22 11:54:00 EST, [facility] to [facility] Electronically, [facility] [...] 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 Start Date: 03/09/22 Status: Ordered Tyv-qrx-adxfv medical-grade oxford diabetic shoes, depth or hightop Bbq-sai-ovynk medical-grade oxford diabetic shoes, depth or hightop, [...] 05/27/22 Stop Date: 06/24/22 Status: Ordered Pen [place], 32 G x [...] tablet, 11 Refills, Maintenance, 03/09/22 11:39:00 EST, [facility]/pharmacy #0838, 160, cm, [...] the same time every day Given by Group Exercise Instructor, Dr. 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 06/16/08 SURGEON: Danny Marie M.D. THREAD MACHINE OPERATOR: Naima Bowling M.D. 22b/l submassive PE diagnosed on Dec 20 in [facility] 23TTE 12/22/15 in [facility]: RV dilatation, RVSP 46 24Per ECHO 05/24/17 Trace mitral regurgitation , trace TC regurgitation w no significant valve pathology meg colo July 2009 exc for 2 hyperplastic polyps 26Colonoscopy 2004 at [facility] [place] per letter of Dr Amor Dobbins Social History Social History Type Response Smoking Status Never (less than 100 in lifetime) entered on: 10/22/20 Sex Patient Care team information Care Team Personnel Name: Diamond Weiss RN Position: [facility] RN Member Role: Primary Care Nurse Name: Tiara Cavazos RN Position: [facility] OB RN Member Role: Primary Care Nurse Name: Shreya Boss RN Position: [facility] RN Member Role: Primary Care Nurse Name: Jaylin Hernandez RN Position: [facility] Onco RN Member Role: Primary Care Nurse Name: Glen Cota MD Position: [facility] Renal MD Member Role: Lifetime Consulting Physician Address: Address: [address] [place] [address] [facility] [address] Name: Florinda Trinh MD Position: [facility] Primary Care Physician Member Role: PCP Address: Address: [address] [place] [address] Care Team Related Persons Name: JOSE ELIAS TODD Address: [place] [address] Name: JOSE ELIAS KIRKLAND Address: home [address] [place] [id number] Name: LEONIE SCHRADER Address: [place] [address]
--- OUTSIDE RECORDS SUMMARY | 2023-10-23 09:52 | XMS_ITS | Continuity of Care Document ---
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 Discharge Disposition: A-D/C Home Attending Physician: Florinda [...] exceed 2000 mg/day) indonesian, # 100 tablet, 11 Refills, Maintenance, 01/16/19 [...] mL, 1 Refills, Maintenance, 07/19/19 14:55:00 EDT, [facility], Drops should remain in ear for several [...] Refills, Maintenance, 03/27/19 9:10:00 EST, EC Capsule, [facility], 159, cm, 03/20/19 14:59:00 EST, Height, 88.3, kg, 12/13/18 10:17:00 EDT, Dry Weight Start Date: 03/27/19 Status: Ordered docusate sodium 100 mg oral tablet 1 tablet = 100 mg, By Mouth, 2 times a day, # 60 tablet, 11 Refills, Maintenance, 05/20/19 12:31:00EST, [facility], 159, cm, 05/20/19 12:19:00 EST, Height, 88.1, kg, 04/25/19 16:02:00 EST, Dry Weight Start Date: 05/20/19 Status: Ordered Eliquis 5 mg oral tablet 1 tablet = 5 mg, By Mouth, 2 times a day, # 60 tablet, 11 Refills, Maintenance, 07/22/19 8:58:00 EDT, Tablet, [facility], 159, cm, 05/20/19 12:19:00 EST, Height, 88.1, kg, 04/25/19 16:02:00 EST, Dry Weight Start Date: 07/22/19 Status: Ordered enalapril 10 mg oral tablet 10 mg, 1, tablet, By Mouth, Daily, 90 days, # 90 tablet, Refills 3, Tot. Refills 3, Maintenance, 09/19/18 15:15:30 EDT, Route to Pharmacy Electronically, [id number], [facility] Start Date: 09/19/18 Status: Ordered famotidine 40 mg oral tablet 1 tablet = 40 mg, By Mouth, Daily at bedtime, If 40 mg tablet is not available, can change to 20 mgtablet 2 tablet at bedtime, # 30 tablet, 5 Refills, Maintenance, 04/17/19 9:17:00 EST, Tablet, [facility] [place], 159, cm, 04/17/19 8:24:0... Start Date: 04/17/19 Status: Ordered flunisolide 25 mcg/inh nasal spray 2 puffs, Nasal, 2 times a day, Keep your head down while using dispense when patient request it, # 1 each, 11 Refills, Maintenance, 07/10/19 17:15:00 EDT, [facility]/pharmacy #[id number], discontinue nasacort, 2 puffs [...] capsule, 11 Refills, Maintenance, 06/30/19 9:25:00 EDT, [facility]/pharmacy #[id number], 159, cm, 05/20/19 12:19:00 [...] 01/16/19 8:53:23 EDT, Route to Pharmacy Electronically, [id number], [facility] [place]... Start Date: 01/16/19 Status: Ordered Lyrica 75 mg oral capsule 1 capsule = 75 mg, By Mouth, 2 times a day, decrease dose Discontinue Lyrica 100 mg, # 60 capsule, 5 Refills, Maintenance, 08/02/19 8:24:00 EDT, Capsule, [facility], 159, cm, 05/20/19 12:19:00 EST, [...] mL, 11 Refills, Maintenance, 07/10/19 17:15:00 EDT, [facility]/pharmacy #[id number], DxE11.65, 159, cm, 05/20/19 12:19:00 EST, Height, 88.1, kg, 04/25/19 16:02:00 EST, Dry Weight Start Date: 07/10/19 Status: Ordered Len-wbc-zwsym medical-grade oxford diabetic shoes, depth or hightop Isx-ink-cqvxj medical-grade oxford diabetic shoes, depth or hightop, [...] 08/02/19 12:47:00 EDT, Route to Pharmacy Electronically, [facility], [place]... Start Date: 08/02/19 Stop Date: 08/30/19 Status: Ordered oxyCODONE 5 mg oral tablet 5 mg, 1, tablet, By Mouth, Every 4 hours, for 28 days, dispense not earlier than 08/30/19, # 137 tablet, Refills 0, Tot. Refills 0, Acute 09/27/19 12:47:00 EDT, 08/30/19 12:47:00 EDT, Route to Pharmacy Electronically, [facility] [place]... Start Date: 08/30/19 Stop Date: 09/27/19 Status: Ordered oxyCODONE 5 mg oral tablet 5 mg, 1, tablet, By Mouth, Every 4 hours, for 28 days, dispense not earlier than 09/27/19, # 137 tablet, Refills 0, Tot. Refills 0, Acute 10/25/19 12:47:00 EDT, 09/27/19 12:47:00 EDT, Route to Pharmacy Electronically, [facility] [place]... Start Date: 09/27/19 Stop Date: 10/25/19 Status: Ordered Pen [place], 32 G x 4 mm BD Ultra [...] 05/20/19 12:31:00 EST, Route to Pharmacy Electronically, [facility] Tablet, 159, cm, 05/20/19 12:19:00 ES... [...] Refills 5, Maintenance, 05/22/19 20:38:00 EST, [facility] Electron[facility], [facility] Start Date: [...] mL, 2 Refills, Maintenance, 07/10/19 15:26:00 EDT, [facility]/pharmacy #[id number], 159, cm, 05/20/19 12:19:00 EST, Height, 88.1, kg, 04/25/19 16:02:00 EST, DryWeight Start Date: 07/10/19 Status: Ordered Ventolin HFA 108 mcg/inh inhalation aerosol with adapter 2 puffs, Inhalation, 4 times a day, PRN Wheezing/Shortness of Breath, dispense when patient requestit, # 18 Gm, 5 Refills, Maintenance, 07/10/19 17:15:00 EDT, [facility]/pharmacy #[id number], 159, cm, 05/20/19 12:19:00 EST, Height, 88.1, kg, 04/25/19 16:02:00 EST... 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-LBP(Confirmed) 10 Active Hypercholesterolemia(Confirmed) Active Hypertension(Confirmed) Active Hysterectomy(Confirmed) Active Incontinence of urine(Confirmed) Active Iron deficiency anemia(Confirmed) Active Left ventricular hypertrophy(Confirmed) 11 Active Memory impairment(Confirmed) Active Mitral regurgitation(Confirmed) 12 05/24/17 Active Nephrolithiasis(Confirmed) 13, 14, 15 06/11/02 Active Obesity(Confirmed) Active JENNIFER (obstructive sleep apnea)(Confirmed) Active Osteopenia(Confirmed) 16, 17 11/16/12 Active *[id number]-[facility] david [place](Confirmed) Active Peripheral venous insufficiency(Confirmed) [...] diagnosed on Dec 20 [facility] 5insulin dependent 6Per ECHO 05/24/1718 Grade [...] [facility] [place] [facility] on 12/29/11 10Narcotic contract w [...] parathyroidectomy. 06/16/08 SURGEON: Danny Marie M.D. PREPARATION SUPERVISOR: Naima Bowling M.D. 19b/l submassive PE diagnosed on Dec 20 in [facility] TTE 12/22/15 in [facility]: RV dilatation, RVSP 46 21Per ECHO 05/24/17 Trace mitral regurgitation , trace TC regurgitation w no significant valve pathology meg colo July 2009 exc for 2 hyperplastic polyps 23Colonoscopy 2004 at [facility] [place] per letter of Dr Amor Dobbins Social History Social History Type Response Smoking Status Never (less than 100 in lifetime) entered on: 04/17/19 Sex
--- OUTSIDE RECORDS SUMMARY | 2023-10-23 09:52 | XMS_ITS | Continuity of Care Document ---
Author Organization 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 [address] [place] [address]- Allergies, Adverse Reactions, Alerts Substance Reaction Severity [...] tablet, 11 Refills, Maintenance, 08/14/20 10:13:00 EDT, [facility]/pharmacy #[id number], 160, cm, 08/14/20 9:34:00 [...] 0 Refills, Maintenance, 10/22/20 10:11:00 EDT, Tablet, [facility]/pharmacy #[id number], 160, cm, 10/22/20 9:15:00 EDT, [...] tablet, 3 Refills, Maintenance, 06/30/20 14:55:00 EDT, Tablet,[facility]/pharmacy #1026, Discontinue 30- day supply presc... [...] 78.8, kg,... Start Date: 01/21/20 Status: Ordered Hte-txn-dbffo medical-grade oxford diabetic shoes, depth or hightop Aqh-xdo-joqih medical-grade oxford diabetic shoes, depth or hightop, [...] 10/30/20 10:25:00 EDT, Route to Pharmacy Electronically, [facility]/pharmacy #[id number], Part... Start Date: 10/30/20 Stop Date: 11/27/20 Status: Ordered oxyCODONE 5 mg oral tablet 5 mg, 1, tablet, By Mouth, Every 4 hours, for 28 days, PRN pain dispense not earlier than 11/27/20, # 168 tablet, Refills 0, Tot. Refills 0, Acute 12/25/20 10:25:00 EDT, 11/27/20 10:25:00 EDT, Route to Pharmacy Electronically, [facility]/pharmacy #1026, Part... Start Date: 11/27/20 [...] 12/25/20 10:25:00 EDT, Route to Pharmacy Electronically, [facility]/pharmacy #1026, Part... Start Date: 12/25/20 Stop Date: 01/22/21 Status: Ordered oxyCODONE 5 mg oral tablet 5 mg, 1, tablet, By Mouth, Every 4 hours, for 28 days, PRN pain dispense not earlier than 10/02/20, # 168 tablet, Refills 0, Tot. Refills 0, Acute 11/27/20 10:25:00 EDT, 10/30/20 10:25:00 EDT, Route to Pharmacy Electronically, [facility]/pharmacy #1026, Part... Start Date: 10/30/20 Stop Date: 11/27/20 Status: Ordered Pen [place], 32 G x 4 mm BD Ultra [...] Maintenance, 10/15/20 16:28:00 EDT, Routeto Pharmacy Electronically, [facility]/pharmacy #1026, 160... Start Date: 10/15/20 Status: Ordered TENS electrode pads TENS electrode pads, See Instructions, # 1 box, Refills 5, Tot. Refills 5, Maintenance, use as directed for back pain Dx LBP M54.9 1 box of 4, 12/06/16 14:59:01, Compound Start Date: 12/06/16 Status: Ordered Trelegy Ellipta inhalation powder 1 puffs, Inhalation, Daily, at the same time every day given by keno attendant , Dr Berkowitz, # 60 each, [...] Date: 09/22/20 Stop Date: 12/15/20 Status: Ordered [place] Reusable Bed Pad 34 x 36 [place] Reusable Bed Pad 34 x 36 , [...] 11 Refills, Maintenance, 10/22/20 10:19:00 EDT, Tablet, [facility]/pharmacy #1026, Partial fill upon patient request if the prescription is for a schedule II opioid drug., 1 tablet B... 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 06/16/08 SURGEON: Danny Marie M.D. HOP FARMER: Naima Bowling M.D. 21b/l submassive PE diagnosed on Dec 20 in [facility] 22TTE 12/22/15 in [facility]: RV dilatation, RVSP 46 23Per ECHO 05/24/17 Trace mitral regurgitation , trace TC regurgitation w no significant valve pathology 24meg colo July 2009 exc for 2 hyperplastic polyps 25Colonoscopy 2004 at [facility] [place] per letter of Dr Amor Dobbins Social History Social History Type Response Smoking Status Never (less than 100 in lifetime) entered on: 10/22/20 Sex
--- OUTSIDE RECORDS SUMMARY | 2023-10-23 09:53 | XMS_ITS | Continuity of Care Document ---
Author Organization [facility] Address Unknown Care Team Providers Care Wharf Tender Name Role Phone Gayathri GARZA, Florinda Primary Care Physician Encounter [facility] Date(s): 08/21/21 - 09/20/21 [facility] Allergies, Adverse Reactions, Alerts Substance Reaction Severity Status penicillin RASH Active morphine itchy Active Bactrim 1 hyperkalemia Active Lidocaine, Topical Active 1Hyperkalemia when used together with lisinopril Immunizations Given and Recorded Vaccine Date Status Refusal Reason zoster vaccine, inactivated 09/15/21 Given SARS-CoV-2 mRNA ([id number]) vax 09/15/21 Given SARS-CoV-2 (COVID-19) mRNA BNT-162b2 [...] 11 Refills, Maintenance, 04/28/21 13:24:00 EST, [facility]/pharmacy #1026, 160, [...] Biotene Moisturizing Mouth oral spray See Instructions, Sullivan directly into mouth; spray is safe to swallow as needed for dry mouth, # 45mL, 11 Refills, Maintenance, 07/21/21 12:43:00 EDT, [facility]/pharmacy #1026, [place] directly into mouth; spray is safe to [...] needed for anxiety and 1tab at HS upzebv-iyn-ccltf, # 60 tablet, 11 Refills, Maintenance, 09/15/21 [...] Refills, Maintenance, 12/09/20 11:15:00 EDT, Tablet, [facility]/pharmacy #1026, Partial [...] 3 Refills, Maintenance, 09/15/21 8:56:00 EDT, [facility]/pharmacy #1026, 160, cm, 09/15/21 8:15:00 EDT,... Start Date: 09/15/21 Status: Ordered Flomax 0.4 mg oral capsule 0.4 mg, 1, capsule, By Mouth, Daily, for 30 days, # 30 capsule, Refills 0, Tot. Refills 0, Acute 10/15/21 9:09:00 EDT, 09/15/21 9:09:00 EDT, Route to Pharmacy Electronically, [facility]/pharmacy #1026, 160,cm, 09/15/21 8:15:00 EDT, Height, 80.6, [...] 3 Refills, Maintenance, 10/22/20 10:35:00 EDT, [facility]/pharmacy #1026, 160, cm, 10/22/20 9:15:00 EDT, [...] DAILY, E11.65, # 90 tablet, 2 Refills, [facility] [address], 160, cm, 06/21/21 9:57:00 EDT, Height, 80.6, [...] 78.8, kg,... Start Date: 01/21/20 Status: Ordered Kas-qck-peevw medical-grade oxford diabetic shoes, depth or hightop Epa-bho-hulfr medical-grade oxford diabetic shoes, depth or hightop, [...] 10/04/21 Stop Date: 11/01/21 Status: Ordered Pen [place], 32 G x 4 mm BD Ultra [...] Refills, [facility] [id number], 160, cm, 03/03/21 11:23:00 EST, Height, 80.6, kg, 06/03/20 19:00:00 EST, Dry Weight Start Date: 04/05/21 Status: Ordered Shingrix intramuscular injection 0.5 mL, Intramuscular, Once, repeat dose in 2 months, # 0.5 mL, 1 Refills, Soft Stop, 09/15/21 8:44:00 EDT, [facility], Partial fill upon patient request if [...] the same time every day Given by [employer] Dried Salt, Dr. Michael Berkowitz, # 60 each, 0 Refills, Maintenance, 07/21/21 11:59:00 EDT, Powder, Partial fill upon patient request if the prescription is for a schedule II opi... Start Date: 07/21/21 Status: Ordered Tresiba FlexTouch 200 units/mL subcutaneous solution See Instructions, INJECT 86 UNITS DAILY AT 9PM, # 45 Unknown, 6 Refills, [facility] [id number], 160, cm, 06/21/21 9:57:00 EDT, Height, 80.6, kg, 06/03/20 19:00:00 EST, Dry Weight Start Date: 06/22/21 Status: Ordered Ventolin HFA 108 mcg/inh inhalation aerosol with adapter 2 puffs, Inhalation, 4 times a day, PRN Wheezing/Shortness of Breath, dispense when patient requestit, # 18 Gm, 5 Refills, Maintenance, 11/09/20 12:36:00 EDT, [facility]/pharmacy #1026, 160, cm, 10/22/20 9:15:00 EDT, Height, 80.6, kg, 06/03/20 19:00:00 EST,... Start Date: 11/09/20 Status: Ordered Voltaren 1% topical gel = 2 Gm, Topically, 4 times a day, # 100 Gm, 5 Refills, Maintenance, 02/15/21 11:40:00 EST, [facility]/pharmacy #1026, 2 Gm Topically 4 times a day,x14 days, 160, cm, 02/15/21 8:47:00 EST, Height, 80.6, kg, 06/03/20 19:00:00 EST, Dry Weight Start Date: 02/15/21 Stop Date: 05/10/21 Status: Ordered [place] Reusable Bed Pad 34 x 36 [place] Reusable Bed Pad 34 x 36 , [...] Refills, Maintenance, 10/22/20 10:19:00 EDT, Tablet, [facility]/pharmacy #1026, Partial [...] apnea)(Confirmed) Active Osteopenia(Confirmed) 18, 19 11/16/12 Active *[id number] [facility] Partn Karine [place](Confirmed) Active Peripheral venous [...] 1 11left mild sensorineural hearing loss by [facility] Hearing Evaluation on 12/29/11 12Narcotic contract [...] lower parathyroidectomy. 06/16/08 SURGEON: Danny Marie M.D. STRATEGIC MANAGER: Naima Bowling M.D. 21b/l submassive PE diagnosed on Dec 20 in [facility] 22TTE 12/22/15 in [facility]: RV dilatation, RVSP 46 23Per ECHO 05/24/17 Trace mitral regurgitation , trace TC regurgitation w no significant valve pathology 24meg colo July 2009 exc for 2 hyperplastic polyps 25Colonoscopy 2005 at [facility] [place] per letter of Dr Amor Dobbins Social History Social History Type Response Smoking Status Never (less than 100 in lifetime) entered on: 10/22/20 Sex
--- OUTSIDE RECORDS SUMMARY | 2023-10-23 09:53 | XMS_ITS | Continuity of Care Document ---
Author Organization [facility] Address [address] [place] [address]- Care Team Providers Care Tool Crib Clerk Name Role Phone Gayathri GARZA, Florinda Primary Care Physician Encounter [facility] Date(s): 04/24/20 - 05/24/20 [facility] [place] [address] [place] [address]- Allergies, Adverse Reactions, Alerts Substance Reaction Severity [...] or fever, (not to exceed 2000 mg/day) iranian, # 100 tablet, 5 Refills, Maintenance, 01/22/20 [...] Acute 05/28/20 11:08:00 EST,05/23/20 11:08:00 EST, Tablet, [facility]/pharmacy #1026, Partial fill upon patient request [...] 78.8, kg,... Start Date: 01/21/20 Status: Ordered Ebr-zpr-ucaqm medical-grade oxford diabetic shoes, depth or hightop Ncj-boh-tyhjp medical-grade oxford diabetic shoes, depth or hightop, [...] 07/10/20 Stop Date: 08/07/20 Status: Ordered Pen [place], 32 G x 4 mm BD Ultra Fine III See Instructions, # 360 each, Refills 3, Tot. Refills 3, Maintenance, Use as directed for insulin use 4 times a day DX IDDM; 90 days, 03/13/20 15:55:00 EDT, Compound, 159, cm, 05/20/19 12:19:00 [...] the same time every day given by hat and cap sewer , Dr Berkowitz, # 60 each, 0 Refills, Maintenance, 11/20/19 13:03:00 EDT, Powder Start Date: 11/20/19 Status: Ordered Tresiba FlexTouch 200 units/mL subcutaneous solution See Instructions, Inject 86 units daily at 9pm, E11.65, # 45 mL, 6 Refills, Maintenance, 01/21/20 14:30:00 EDT, [facility]/pharmacy #1026, 167, cm, [...] Dry Weight Start Date: 04/15/20 Status: Ordered [place] Reusable Bed Pad 34 x 36 [place] Reusable Bed Pad 34 x 36 , [...] apnea)(Confirmed) Active Osteopenia(Confirmed) 18, 19 11/16/12 Active *[id number] [facility] Active Peripheral venous insufficiency(Confirmed) 10/31/11 Active Positive [...] lower parathyroidectomy. 06/16/08 SURGEON: Danny Marie M.D. LENDING CONSULTANT: Naima Bowling M.D. 21b/l submassive PE diagnosed on Dec 20 in [facility] 22TTE 12/22/15 in [facility]: RV dilatation, RVSP 46 23Per ECHO 05/24/17 Trace mitral regurgitation , trace TC regurgitation w no significant valve pathology 24meg colo July 2009 exc for 2 hyperplastic polyps 25Colonoscopy 2004 at [facility] [place] per letter of Dr Amor Dobbins Social History Social History Type Response Smoking Status Never (less than 100 in lifetime) entered on: 04/29/20 Sex
--- OUTSIDE RECORDS SUMMARY | 2023-10-23 09:53 | XMS_ITS | Patient Health Record ---
Author Organization [facility] Address [address] [place] [id number] Care Team Providers Care Double Ending Machine Operator Name Role Phone RICKY GARZA, DAISY Primary Care Provider Unavailable Amor Dobbins Jr Unavailable [phone] ALLERGIES Allergen (clinical drug ingredient) Drug/Non Drug Allergy documented on EMR Reaction Allergy Type Onset Date Status Penicillin Unknown Drug Allergy Active morphine Morphine Sulfate Unknown Drug Allergy Active lidocaine Lidoderm patches Drug Allergy Active Codeine Phosphate Unknown Drug Allergy Active REASON FOR REFERRAL No Information MEDICATIONS Medication SIG (Take, Route, Frequency, Duration) Notes Start Date End Date Status Famotidine 40 MG 1 tablet at bedtime Orally Once a day for 30 day(s) Active Ivimglffohb-Zaacgpkox-Josedt 100-62.5-25 MCG/INH 1 puff Inhalation Once a day Active Singulair 10 MG 1 tablet Orally Once a day Unknown Ferrous Sulfate ER 325 MG as directed Orally Active Tresiba 100 UNIT/ML as directed Subcutaneous Active Ketotifen Fumarate 0.025 % 1 drop into a ffected eye Ophthalmic Twice a day/prn Unknown Insulin Aspart 100 UNIT/ML as directed Subcutaneous Active Fluticasone Propionate HFA 220 MCG/ACT 1 puff Inhalation once a day Unknown Senna Concentrate 8.6 MG 2 tablets at be dtime as needed Orally Once a day for 30 day(s) Active oxyCODONE HCl 5 MG 1 tablet Orally ever y 6 hrs prn pain Unknown Nitroglycerin 0.3 MG as directed Sublingual Active DULoxetine HCl 30 MG 3 capsule Orally On ce a day Unknown busPIRone HCl 15 MG 1 tablet Orally Twic e a day Active Fluconazole 200 MG 2 tablet Orally x 14 days/prn Unknown Apixaban 5 MG 1 tablet Orally Twic e a day for 30 day(s) Active Flunisolide 25 MCG/ACT (0.025%) 2 sprays in each nostril Nasally Twice a day Unknown Esomeprazole Magnesium 40 MG 1 capsule O rally Once a day for 30 day(s) Active Celecoxib 200 MG 1 capsule with food Orally Twice a day Unknown Clopidogrel Bisulfate 75 MG 1 tablet Ora lly Once a day for 30 day(s) Active Enalapril Maleate 10 MG 1 tablet Orally Once a day for 30 day(s) Unknown Albuterol Sulfate 108 (90 Base) MCG/ACT 2 puffs as needed Inhalation every 6 hrs Unknown Capsaicin 0.025 % 1 application to affected area as needed Externally Three times a day Unknown Escitalopram Oxalate 20 MG 1 tablet Oral ly Once a day for 30 day(s) Active Furosemide 10 MG/ML 2 ml Orally Once a d ay for 30 day(s) Active Trulicity 0.75 MG/0.5ML as directed Subcutaneous Active Pravastatin Sodium 10 MG 1 tablet Orally Once a day for 30 day(s) Unknown Ondansetron 4 MG 1 tablet on the tong ue and allow to dissolve Orally Once a day for 30 day(s) Active metFORMIN HCl 500 MG Oral for 30 Unknown Ammonium Lactate 12 % 1 application Externally Twice a day Active hydroCHLOROthiazide 12.5 MG 1 capsule in the morning Orally Once a day Unknown amLODIPine Bes+SyrSpend SF 1 MG/ML 5 mL Orally Once a day for 30 day(s) Active Tresiba FlexTouch 200 UNIT/ML 105 units as directed Subcutaneous daily Unknown tiZANidine HCl 2 MG 1 tablet as needed Orally Three times a day Active Cholecalciferol 1000 UNIT 1 capsule Oral ly Once a day Unknown MiraLax (colon prep) 8.3 ounce ((238) grams mixed with Gatorade or Crystal Light orally begin at 5:00 p.m. the day before the procedure for 1 day 10/30/2019 Unknown Tamsulosin HCl 0.4 MG as directed Orally Active Loratadine 10 MG 1 tablet Orally Once a day Unknown Pantoprazole Sodium 40 MG TAKE 1 TABLET BY MOUTH DAILY Orally Once a day for 90 days Unknown Rosuvastatin Calcium 40 MG 1 tablet Oral ly Once a day for 30 day(s) Active NovoLOG FlexPen 100 UNIT/ML INJECT 15 50 UNITS PER SLIDING SCALE 3 TIMES A DAY BEFORE MEALS. Subcutaneous for 90 Unknown Acetaminophen 500 MG 2 tablets Orally ev lesia 6 hrs prn pain Unknown Stool Softener 100 MG Oral for 30 Unknown Vitamin D3 25 MCG (1000 UT) Oral for 90 Unknown Levocetirizine Dihydrochloride 5 MG 1 tablet in the evening Orally Once a day for 30 day(s) Active Calcium Citrate + D3 Maximum 315-250 MG-UNIT Oral for 90 Unknown Eliquis 5 MG Oral for 30 Unkno wn IMMUNIZATIONS Vaccine Route Administration Date Status Comme nts Influenza Unknown 01/08/2019 Administered Influenza Unknown 01/09/2020 Administered Influenza Unknown 02/23/2021 Administered SOCIAL HISTORY Sex Assigned At : Social History Observation Description Sex Assigned At Unknown PROBLEMS Problem Type ICD Code Onset Dates Problem Status W/U Status Risk SNOMED Code Notes Problem Epigastric pain (R10.13) Active confirmed 87420489 Problem Gastroesophageal reflux disease without esophagitis (K21.9) Active confirmed 557533196 Problem Iron deficiency anemia, unspecified iron deficiency anemia type (D50.9) Active confirmed 44271017 Problem Anemia, unspecified type (D64.9) Active confirmed 742183745 Problem Dysphagia, unspecified type (R13.10) Active confirmed 85006849 Problem Cirrhosis of liver without ascites, 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) Active confirmed [id number] Encounters Encounter Location Date Provider Diagnosis [facility] [address] [place] [phone] 07/06/2023 Amor Dobbins Jr [facility] [address] [place] [phone] 09/18/2023 Amor Dobbins Jr [facility] [address] [place] [phone] 07/06/2023 Amor Dobbins Jr [facility] [address] [place] [phone] 09/18/2023 Amor Dobbins Jr PLAN OF TREATMENT Pending Test Test Name Order Date BUN 11/09/2020 CREATININE 11/09/2020 LIVER PROFILE 12/27/2021 LIVER PROFILE 11/09/2020 LIVER PROFILE 06/06/2014 CBC w/o DIFF 12/27/2021 CBC w/o DIFF 11/09/2020 CBC w/o DIFF 06/06/2014 PROTHROMBIN TIME (PT, INR) 12/27/2021 PROTHROMBIN TIME (PT, INR) 11/09/2020 HEPATITIS C VIRAL LOAD 06/06/2014 CT ABD & PELVIS WITH CONTRAST 11/09/2020 US ABD 11/02/2011 US ABD 12/27/2021 Liver Fibrosis Pnl 12/27/2021 Future Test Test Name Order Date COLONOSCOPY 04/30/2014 UPPER GI ENDOSCOPY 04/15/2016 UPPER GI ENDOSCOPY 06/22/2018 UPPER GI ENDOSCOPY 10/30/2019 COLONOSCOPY 10/30/2019 Next Appt Details Provider Name:Amordaniella pichardo , 01/17/2024 11:20:00 AM, [address], [address], [place], [address], Insurance Providers Payer Name Payer Address Payer Phone Subscriber Number Group Number Insured Name Patient Relationship to Insured Coverage Start Date Coverage End Date [facility] [address] [place] [address] [id number] TOMMY CHOU Self - patient is the insured MEDICAL (GENERAL) HISTORY Medical History History ICD Code colonoscopy 12/11/19, right co camilla AVMs, no polyps, previous history of adenomas, followup optional based on age. hepatitis C, rx IFN X2, Harvoni X 24 pham gonzalez 2014, sustained response. seizure disorder diabetes arthritis pulmonary embolism anemia Gastroesophageal reflux disease, EGD 12/10 0, grade 1 varices. Cirrhosis hypertension Surgical History Surgery Date(Month/Year) hysterectomy cholecystectomy Thyroid surgery cataract-lens implants kidney stones removed
--- OUTSIDE RECORDS SUMMARY | 2023-10-23 09:53 | XMS_ITS | Continuity of Care Document ---
Author Organization [facility] Address [address] [place] [address]- Care Team Providers Care In Store Marketing Associate Name Role Phone Gayathri GARZA, Florinda Primary Care Physician [facility] Date(s): 04/07[facility]20 - 05/07/20 [facility] [address] [place] [address]- Allergies, Adverse Reactions, Alerts Substance Reaction Severity [...] or fever, (not to exceed 2000 mg/day) citizen of [place], # 100 tablet, 5 Refills, Maintenance, 01/22/20 [...] 01/21/21 19:13:00 EDT, 01/27/20 19:13:00 EDT, Tablet, [facility]/pharmacy #[id number], 167, cm, 01/13/20 8:54:00 EDT, Height, 78.8, kg, 01/01/20 3:41:00 EDT, Dry... Start Date: 01/27/20 Stop Date: 01/21/21 Status: Ordered capsaicin 0.025% topical cream 1 application, Topically, 3 times a day, # 90 Gm, 11 Refills, Maintenance, 02/10/20 11:22:00 EST, Cream, [facility]/pharmacy #[id number], 1 application Topically [...] Refills, Maintenance, 01/27/20 19:13:00 EDT, EC Capsule, [facility]/pharmacy #[id number], 167, cm, 01/13/20 8:54:00 EDT, Height, 78.8, kg, 01/01/20 3:41:00 EDT, Dry Weight Start Date: 01/27/20 Status: Ordered Eliquis 5 mg oral tablet 1 tablet = 5 mg, By Mouth, 2 times a day, # 60 tablet, 11 Refills, Maintenance, 02/10/20 11:22:00 EST, Tablet, [facility]/pharmacy #[id number], 167, cm, 01/13/20 8:54:00 EDT, Height, 78.8, kg, 01/01/20 3:41:00 EDT, Dry Weight Start Date: 02/10/20 Status: Ordered enalapril 10 mg oral tablet 10 mg, 1, tablet, By Mouth, Daily, discontinue hydrochlorothiazide, # 30 tablet, Refills 11, Tot. Refills 11, Maintenance, 04/29/20 13:04:00 EST, Route to Pharmacy Electronically, [facility]/pharmacy #[id number],167, cm, 04/29/20 9:24:00 EST, Height, 82, kg, ... Start Date: 04/29/20 Status: Ordered famotidine 40 mg oral tablet 1 tablet = 40 mg, By Mouth, Daily at bedtime, If 40 mg tablet is not available, can change to 20 mgtablet 2 tablet at bedtime, # 30 tablet, 2 Refills, Maintenance, 04/04/20 16:07:00 EST, Tablet, [facility]/pharmacy #[id number], 167, cm, 02/24/20 17:04:00 EST, Hei... Start Date: 04/04/20 Status: Ordered ferrous sulfate 325 mg oral tablet 1 tablet = 325 mg, By Mouth, Daily, May take with food to minimize abdominal discomfort. Do not take with milk. Take preferrably with juice., # 90 tablet, 2 Refills, Maintenance, 01/22/20 9:38:00 EDT, [facility]/pharmacy #1026, 167, cm, 01/13/20 8:54:00 EDT,... [...] capsule, 4 Refills, Maintenance, 01/22/20 9:39:00 EDT, [facility]/pharmacy #1026, 167, cm, 01/13/20 8:54:00 EDT, Height, 78.8, kg, 01/01/20 3:41:00 EDT, Dry Weight Start Date: 01/22/20 Stop Date: 06/20/20 Status: Ordered ketotifen 0.025% ophthalmic solution 1 drops, Eyes, Both, Every 12 hours, PRN as needed for eye allergy, # 7.5 mL, 11 Refills, Maintenance, 01/27/20 19:13:00 EDT, [facility]/pharmacy #1026, 1 drops Eyes, [...] 01/22/20 9:41:00 EDT, Route to Pharmacy Electronically, [facility]/pharmacy #[id number], 167, cm, 01/13/20 8:54:00 EDT, Height, 78... Start Date: 01/22/20 Status: Ordered NovoLOG FlexPen 100 units/mL subcutaneous solution See Instructions, Inject up to 26 untis via Insulin sliding scale 3x a day w/meals,MAX daily dose 78 units, E11.65, # 45 mL, 6 Refills, Maintenance, 01/21/20 14:30:00 EDT, [facility]/pharmacy #1026, 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 Start Date: 01/21/20 Status: Ordered Oga-wdh-nolku medical-grade [place] diabetic shoes, depth or hightop Fhe-pzg-zxmfk medical-grade [place] diabetic shoes, depth or hightop, [...] EST, 04/17/20 10:25:00 EST, Route toPharmacy Electronically, [facility]/pharmacy #1026, Parti... Start Date: 04/17/20 Stop Date: 05/15/20 Status: Ordered oxyCODONE 5 mg oral tablet 5 mg, 1, tablet, By Mouth, Every 4 hours, for 28 days, PRN pain dispense not earlier than 05/15/20, #168 tablet, Refills 0, Tot. Refills 0, Acute 06/12/20 10:25:00 EST, 05/15/20 10:25:00 EST, Route toPharmacy Electronically, [facility]/pharmacy #1026, Parti... Start Date: 05/15/20 Stop Date: 06/12/20 Status: Ordered oxyCODONE 5 mg oral tablet 5 mg, 1, tablet, By Mouth, Every 4 hours, for 28 days, PRN pain dispense not earlier than 06/12/20, #168 tablet, Refills 0, Tot. Refills 0, Acute 07/10/20 10:25:00 EDT, 06/12/20 10:25:00 EST, Route toPharmacy Electronically, [facility]/pharmacy #1026, Parti... Start Date: 06/12/20 Stop Date: 07/10/20 Status: Ordered oxyCODONE 5 mg oral tablet 5 mg, 1, tablet, By Mouth, Every 4 hours, for 28 days, PRN pain dispense not earlier than 07/10/20, #168 tablet, Refills 0, Tot. Refills 0, Acute 08/07/20 10:25:00 EDT, 07/10/20 10:25:00 EDT, Route toPharmacy Electronically, [facility]/pharmacy #1026, Parti... Start Date: 07/10/20 Stop Date: 08/07/20 Status: Ordered oxyCODONE 5 mg oral tablet 5 mg, 1, tablet, By Mouth, Every 4 hours, for 28 days, PRN pain dispense not earlier than 04/15/20 3 of 3, # 168 tablet, Refills 0, Tot. Refills 0, Acute 05/13/20 10:25:00 EST, 04/15/20 10:25:00 EST, Route to Pharmacy Electronically, [facility]/pharmacy #10... Start Date: 04/15/20 Stop Date: 05/13/20 Status: Ordered Pen [place], 32 G x 4 mm BD Ultra [...] 02/10/20 11:22:00 EST, Route to Pharmacy Electronically, [facility]/pharmacy #1026 Tablet, 167, cm, 01/13/20 8:5... [...] 05/01/20 9:28:00 EST, Route to Pharmacy Electronically, [facility]/pharmacy #1026, 167,... Start Date: 05/01/20 Status: Ordered TENS electrode pads TENS electrode pads, See Instructions, # 1 box, Refills 5, Tot. Refills 5, Maintenance, use as directed for back pain Dx LBP M54.9 1 box of 4, 12/06/16 14:59:01, Compound Start Date: 12/06/16 Status: Ordered Trelegy Ellipta inhalation powder 1 puffs, Inhalation, Daily, at the same time every day given by molecular geneticist , Dr Berkowitz, # 60 each, 0 [...] Dry Weight Start Date: 04/15/20 Status: Ordered [place] Reusable Bed Pad 34 x 36 [place] Reusable Bed Pad 34 x 36 , [...] apnea)(Confirmed) Active Osteopenia(Confirmed) 18, 19 11/16/12 Active *[id number] [facility](Confirmed) Active Peripheral venous insufficiency(Confirmed) 10/31/11 Active [...] 1 11left mild sensorineural hearing loss by [facility] Hearing Evaluation on 12/29/11 12Narcotic [...] lower parathyroidectomy. 06/16/08 SURGEON: Danny Marie M.D. SHOT CORE DRILL OPERATOR HELPER: Naima Bowling M.D. 21b/l submassive PE diagnosed on Dec 20 in [facility] 22TTE 12/22/15 in [facility]: RV dilatation, RVSP 46 23Per ECHO 05/24/17 Trace mitral regurgitation , trace TC regurgitation w no significant valve pathology 24meg colo July 2009 exc for 2 hyperplastic polyps 25Colonoscopy 2004 at [facility] [place] per letter of Dr Amor Dobbins Social History Social History Type Response Smoking Status Never (less than 100 in lifetime) entered on: 04/29/20 Sex
--- OUTSIDE RECORDS SUMMARY | 2023-10-23 09:53 | XMS_ITS | Continuity of Care Document ---
Author Organization [facility] Address [address] [place] [address]- Care Team Providers Care Support Director Name Role Phone Gayathri GARZA, Florinda Primary Care Physician [facility]counter [facility] Date(s): 02/14/20 - 03/23/20 [facility] [address] [place] [address]- Attending Physician: Sreedhar Elkins MD Admitting Physician: Sreedhar Elkins MD Referring Physician: Florinda Trinh MD Allergies, [...] exceed 2000 mg/day) portuguese, # 100 tablet, 5 Refills, Maintenance, 01/22/20 [...] tablet, 11 Refills, Maintenance, 01/26/2019:13:00 EDT, Tablet, [facility]/pharmacy #1026, 2 tablet By Mouth 2 [...] 2 Refills, Maintenance, 01/22/20 9:37:00 EDT, Tablet, [facility]/pharmacy #1026, [...] 01/22/20 9:41:00 EDT, Route to Pharmacy Electronically, [facility]/pharmacy #1026, 167, cm, 01/13/20 8:54:00 EDT, Height, 78... Start Date: 01/22/20 Status: Ordered NovoLOG FlexPen 100 units/mL subcutaneous solution See Instructions, Inject up to 26 untis via Insulin sliding scale 3x a day w/meals,MAX daily dose 78 units, E11.65, # 45 mL, 6 Refills, Maintenance, 01/21/20 14:30:00 EDT, [facility]/pharmacy #1026, 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 Start Date: 01/21/20 Status: Ordered Bhz-ldl-wqxku medical-grade [place] diabetic shoes, depth or hightop Aag-ihe-bxjms medical-grade [place] diabetic shoes, depth or hightop, [...] 03/18/20 10:25:00 EST, Route to Pharmacy Electronically, [facility]/pharmacy #1... Start Date: 03/18/20 Stop Date: 04/15/20 Status: Ordered oxyCODONE 5 mg oral tablet 5 mg, 1, tablet, By Mouth, Every 4 hours, for 28 days, PRN pain dispense not earlier than 04/15/20 3 of 3, # 168 tablet, Refills 0, Tot. Refills 0, Acute 05/13/20 10:25:00 EST, 04/15/20 10:25:00 EST, Route to Pharmacy Electronically, [facility]/pharmacy #10... Start Date: 04/15/20 Stop Date: 05/13/20 Status: Ordered Pen [place], 32 G x 4 mm BD Ultra [...] 01/22/20 9:43:00 EDT, Route to Pharmacy Electronically, [facility]/pharmacy #1026, 167,... Start Date: 01/22/20 Status: Ordered TENS electrode pads TENS electrode pads, See Instructions, # 1 box, Refills 5, Tot. Refills 5, Maintenance, use as directed for back pain Dx LBP M54.9 1 box of 4, 12/06/16 14:59:01, Compound Start Date: 12/06/16 Status: Ordered Trelegy Ellipta inhalation powder 1 puffs, Inhalation, Daily, at the same time every day given by grab hooker , Dr Berkowitz, # 60 each, 0 [...] Dry Weight Start Date: 01/22/20 Status: Ordered [place] Reusable Bed Pad 34 x 36 [place] Reusable Bed Pad 34 x 36 , [...] apnea)(Confirmed) Active Osteopenia(Confirmed) 18, 19 11/16/12 Active *[phone] [facility] [place](Confirmed) Active Peripheral venous insufficiency(Confirmed) 10/31/11 Active Positive [...] peroneal veins diagnosed on Dec 20 [facility] 6insulin dependent 7Per ECHO 05/24/1718 Grade I, [...] lower parathyroidectomy. 06/16/08 SURGEON: Danny Marie M.D. SHIP KEEPER: Naima Bowling M.D. 21b/l submassive PE diagnosed on Dec 20 in [facility] 22TTE 12/22/15 in [facility]: RV dilatation, RVSP 46 23Per ECHO 05/24/17 Trace mitral regurgitation , trace TC regurgitation w no significant valve pathology 24meg colo July 2009 exc for 2 hyperplastic polyps 25Colonoscopy 2004 at [facility] [place] per letter of Dr Amor Dobbins Social History Social History Type Response Smoking Status Never (less than 100 in lifetime) entered on: 12/25/19 Sex
--- OUTSIDE RECORDS SUMMARY | 2023-10-23 09:53 | XMS_ITS | Continuity of Care Document ---
Author Organization [facility] Address [address] [place] [address]- Care Team Providers Care Intelligence Support Officer Name Role Phone Gayathri GARZA, Florinda Primary Care Physician Encounter [facility] Date(s): 04/21/22 - 05/21/22 [facility] [place] [address]- [place] Allergies, Adverse Reactions, Alerts Substance Reaction Severity Status penicillin RASH Active morphine itchy Active Lidocaine, Topical Active Bactrim 1 hyperkalemia Active 1Hyperkalemia when used together with lisinopril Immunizations Given and Recorded Vaccine Date Status Refusal Reason zoster vaccine, inactivated 12/08/21 Given zoster vaccine, inactivated 09/15/21 Given SARS-CoV-2 mRNA ([id number]) vax 09/15/21 Given SARS-CoV-2 (COVID-19) mRNA BNT-162b2 [...] cm, 01/13/20 8:54:00 EDT, Height, 78.8, kg, 09/23/20 3:41:00 EDT, Dry Weight Start Date: 01/21/20 Status: Ordered ammonium lactate 12% topical cream 1 applicator, Topically, 2 times a day, # 280 Gm, 11 Refills, Maintenance, 07/21/21 12:43:00 EDT, [facility]/pharmacy #[id number], 1 applicator Topically 2 times a day, 160, cm, 07/21/21 10:22:00 EDT, Height, 80.6, kg, 06/03/20 19:00:00 EST, Dry Weight Start Date: 07/21/21 Status: Ordered Baqsimi Two Pack 3 mg nasal powder = 3 mg, Naris, Right, Once, Please use for a low blood sugar emergency, may repeat in 15 minutes, #1 each, 3 Refills, Soft Stop, 03/09/22 11:35:00 EST, [facility]/pharmacy #[id number], 160, cm, 03/09/22 10:43:00EST, Height, 78, [...] needed for anxiety and 1tab at HS [id number]-bioyg, # 60 tablet, 11 Refills, Maintenance, 09/15/21 [...] 11 Refills, Maintenance, 12/06/21 15:04:00 EDT, Tablet, [facility], Partial fill upon patient [...] 3 Refills, Maintenance, 07/12/21 18:53:00 EDT, Tablet,[facility]/pharmacy #1026, Discontinue 30- day supply presc... Start [...] 10:15:00 EST, Route to Pharmacy Electronically, [facility]/pharmacy #[id number], Partial fill upon patient request if the prescription is for a schedule II opioi... Start Date: 04/19/22 Status: Ordered ketotifen 0.025% ophthalmic solution 1 drops, Eyes, Both, Every 12 hours, PRN as needed for eye allergy, # 7.5 mL, 11 Refills, Maintenance, 06/25/21 8:34:00 EDT, [facility]/pharmacy #[id number], 1 drops Eyes, Both Every 12 [...] tablet, 3 Refills, 03/09/22 11:57:00 EST, [facility]/pharmacy #[id number], 1 tablet By Mouth Daily before dinner,PRN:allergies, 160, cm, 03/09/22 10:43:00 EST, Height, 78, kg, 01/14/22 19:37:00 ED... Start Date: 03/09/22 Status: Ordered montelukast 10 mg oral tablet 10 mg, 1, tablet, By Mouth, Daily at bedtime, # 90 tablet, Refills 3, Tot. Refills 3, Maintenance, 03/09/22 11:37:00 EST, Route to Pharmacy Electronically, [facility]/pharmacy #[id number], 160, cm, 03/09/22 10:43:00 EST, Height, [...] 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 Start Date: 03/09/22 Status: Ordered Ebi-ieg-gdopd medical-grade oxford diabetic shoes, depth or hightop Yqr-zhp-szvdu medical-grade oxford diabetic shoes, depth or hightop, [...] 05/04/22 Stop Date: 06/01/22 Status: Ordered Pen [place], 32 G x 4 mm BD Ultra [...] 527 Gm,11 Refills, Maintenance, 03/09/22 11:39:00 EST, [facility]/pharmacy #[id number], 17- 34 Gm By Mouth Daily,PRN:asneeded [...] same time every day Given by Assistant Plant Manager, Dr. Michael Berkowitz, # 60 each, 0 Refills, Maintenance, 07/21/21 11:59:00 EDT, Powder, Partial fill upon patient request if the prescription is for a schedule II opi... Start Date: 07/21/21 Status: Ordered Tresiba FlexTouch 200 units/mL subcutaneous solution See Instructions, INJECT 42 UNITS DAILY AT 9PM E11.9 90 day, # 21 mL, 3 Refills, 03/09/22 17:14:00 EST, [facility]/pharmacy #[id number], 160, cm, 03/09/22 10:43:00 EST, Height, 78, kg, 01/14/22 19:37:00 EDT, Dry Weight Start Date: 03/09/22 Status: Ordered Ventolin HFA 108 mcg/inh inhalation aerosol with adapter 2 puffs, Inhalation, 4 times a day, PRN Wheezing/Shortness of Breath, dispense when patient requestit, # 18 Gm, 5 Refills, Maintenance, 11/09/20 12:36:00 EDT, [facility]/pharmacy #[id number], 160, cm, 10/22/20 9:15:00 EDT, Height, 80.6, kg, 06/03/20 19:00:00 EST,... Start Date: 11/09/20 Status: Ordered Voltaren 1% topical gel = 2 Gm, Topically, 4 times a day, # 100 Gm, 5 Refills, Maintenance, 03/09/22 11:55:00 EST, [facility]/pharmacy #[id number], 2 Gm Topically 4 times a day,x14 days, 160, cm, 03/09/22 10:43:00 EST, Height, 78, kg, 01/14/22 19:37:00 EDT, Dry Weight Start Date: 03/09/22 Stop Date: 06/01/22 Status: Ordered [place] Reusable Bed Pad 34 x 36 [place] Reusable Bed Pad 34 x 36 , [...] Osteopenia 18, 19, 20 Confirmed 11/16/12 Active *[id number] Nuclear Plant Instrument Technician Karine More Confirmed Active Peripheral venous insufficiency [...] catarct surgery on 08/28/08 by SURGEON: Tana Cornoado M.D. 5LE US- DVT involving 2 of [...] mild sensorineural hearing loss by [facility] Hearing Evaluation on 12/29/11 12Narcotic contract [...] parathyroidectomy. 06/16/08 SURGEON: Danny Marie M.D. ASSISTANT ATTORNEY GENERAL: Naima Bowling M.D. 22b/l submassive PE diagnosed on Dec [address] [facility] TTE 12/22/[address] [facility]: RV dilatation, RVSP 46 24Per ECHO 05/24/17 Trace mitral regurgitation , trace TC regurgitation w no significant valve pathology 25meg colo July 2009 exc for 2 hyperplastic polyps 26Colonoscopy 2004 at [facility] per letter of Dr Amor Dobbins Social History Social History Type Response Smoking Status Never (less than 100 in lifetime) entered on: 10/22/20 Sex Patient Care team information Care Team Personnel Name: Diamond Weiss RN Position: [facility] RN Member Role: Primary Care Nurse Name: Tiara Cavazos RN Position: [facility] OB RN Member Role: Primary Care Nurse Name: Shreya Boss RN Position: S RN Member Role: Primary Care Nurse Name: Virginia Benson RN Position: [facility] RN Member Role: Primary Care Nurse Name: Jaylin Hernandez RN Position: [facility] Onco RN Member Role: Primary Care Nurse Name: Glen Cota MD Position: [facility] Renal MD Member Role: Lifetime Consulting Physician Address: Address: [address] [place] [address] [facility] [address] Name: Florinda Trinh MD Position: [facility] Primary Care Physician Member Role: PCP Address: Address: [address] [place] [address] Care Team Related Persons Name: JOSE ELIAS TODD Address: [place] [address] Name: JOSE ELIAS KIRKLAND Address: home [address] [place] [id number] Name: LEONIE SCHRADER Address: [place] [address]
--- OUTSIDE RECORDS SUMMARY | 2023-10-23 09:53 | XMS_ITS | Continuity of Care Document ---
Author Organization [facility] Address [address] [place] [address]- Care Team Providers Care Mill Dresser Name Role Phone Florinda Trinh MD Primary Care Physician Encounter [facility] Date(s): 09/10/20 - 10/10/20 [facility]/[address] [address]- Attending Physician: Admtr, Ar8 Allergies, Adverse Reactions, [...] or fever, (not to exceed 2000 mg/day) iraqi, # 100 tablet, 11 Refills, Maintenance, 08/14/20 [...] 07/16/20 15:26:00 EDT, Route to Pharmacy Electronically, [facility]/pharmacy #[id number], 160, cm, 06/12/20 9:01... Start Date: 07/16/20 Status: Ordered ammonium lactate 12% topical cream 1 applicator, Topically, 2 times a day, # 280 Gm, 11 Refills, Maintenance, 01/27/20 19:13:00 EDT, [facility]/pharmacy #1026, 1 applicator Topically 2 times a day, 167, cm, 01/13/20 8:54:00 EDT, Height, 78.8, kg, 01/01/20 3:41:00 EDT, Dry Weight Start Date: 01/27/20 Status: Ordered Baqsimi Two Pack 3 mg nasal powder = 3 mg, Naris, Right, Once, Please use for a low blood sugar emergency, may repeat in 15 minutes, #2 each, 3 Refills, Soft Stop, 06/26/20 7:30:00 EDT, [facility]/pharmacy #1026, Partial fill upon patient request if the prescription is for a schedule II op... Start Date: 06/26/20 Status: Ordered calcium (as citrate)-vitamin D 315 mg-250 intl units oral tablet 2 tablet, By Mouth, 2 times a day, for 30 days, calcium citrate, # 120 tablet, 11 Refills, Hard Stop 01/21/21 19:13:00 EDT, 01/27/20 19:13:00 EDT, Tablet, [facility]/pharmacy #1026, 167, cm, 01/13/20 8:54:00 EDT, Height, 78.8, kg, 01/01/20 3:41:00 EDT, Dry... Start Date: 01/27/20 Stop Date: 01/21/21 Status: Ordered capsaicin 0.025% topical cream 1 application, Topically, 3 times a day, # 90 Gm, 11 Refills, Maintenance, 02/10/20 11:22:00 EST, Cream, [facility]/pharmacy #1026, 1 application Topically 3 [...] tablet, 1 Refills, Maintenance, 08/31/20 14:45:00 EDT, [facility]/pharmacy #1026, 160, cm, 08/14/20 9:34:00 EDT... Start [...] capsule, 0 Refills, Maintenance, 08/28/20 17:52:00 EDT, [facility]/pharmacy #1026, 160, cm, 08/14/20 9:34:00 EDT, Height, 80.6, kg, 06/03/20 19:00:00 EST, Dry Weight Start Date: 08/28/20 Stop Date: 11/26/20 Status: Ordered ketotifen 0.025% ophthalmic solution 1 drops, Eyes, Both, Every 12 hours, PRN as needed for eye allergy, # 7.5 mL, 11 Refills, Maintenance, 01/27/20 19:13:00 EDT, [facility]/pharmacy #1026, 1 drops Eyes, Both [...] 06/24/20 9:08:00 EDT, Route to Pharmacy Electronically, [facility]/pharmacy #1026, 160, cm, 06/12/20 9:01:00 EST, Height, 80... Start Date: 06/24/20 Status: Ordered NovoLOG FlexPen 100 units/mL subcutaneous solution See Instructions, Inject up to 26 untis via Insulin sliding scale 3x a day w/meals,MAX daily dose 78 units, E11.65, # 45 mL, 6 Refills, Maintenance, 01/21/20 14:30:00 EDT, [facility]/pharmacy #1026, 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 Start Date: 01/21/20 Status: Ordered Uey-xko-txzno medical-grade oxford diabetic shoes, depth or hightop Mbg-awv-uoxub medical-grade oxford diabetic shoes, depth or hightop, [...] 10/30/20 10:25:00 EDT, Route to Pharmacy Electronically, [facility]/pharmacy #1026, Part... Start Date: 10/30/20 Stop Date: 11/27/20 Status: Ordered oxyCODONE 5 mg oral tablet 5 mg, 1, tablet, By Mouth, Every 4 hours, for 28 days, PRN pain dispense not earlier than 11/27/20, # 168 tablet, Refills 0, Tot. Refills 0, Acute 12/25/20 10:25:00 EDT, 11/27/20 10:25:00 EDT, Route to Pharmacy Electronically, [facility]/pharmacy #1026, Part... Start Date: 11/27/20 Stop Date: 12/25/20 Status: Ordered oxyCODONE 5 mg oral tablet 5 mg, 1, tablet, By Mouth, Every 4 hours, for 28 days, PRN pain dispense not earlier than 10/02/20, # 168 tablet, Refills 0, Tot. Refills 0, Acute 10/30/20 10:25:00 EDT, 10/02/20 10:25:00 EDT, Route to Pharmacy Electronically, [facility]/pharmacy #1026, Part... Start Date: 10/02/20 Stop Date: 10/30/20 Status: Ordered oxyCODONE 5 mg oral tablet 5 mg, 1, tablet, By Mouth, Every 4 hours, for 28 days, PRN pain dispense not earlier than 10/02/20, # 168 tablet, Refills 0, Tot. Refills 0, Acute 11/27/20 10:25:00 EDT, 10/30/20 10:25:00 EDT, Route to Pharmacy Electronically, [facility]/pharmacy #1026, Part... Start Date: 10/30/20 Stop Date: 11/27/20 Status: Ordered Pen [place], 32 G x 4 mm BD Ultra [...] 527 Gm,11 Refills, Maintenance, 01/27/20 19:13:00 EDT, [facility]/pharmacy #1026, 17- 34 Gm By [...] 02/10/20 11:22:00 EST, Route to Pharmacy Electronically, [facility]/pharmacy #1026 Tablet, 167, cm, 01/13/20 [...] 05/01/20 9:28:00 EST, Route to Pharmacy Electronically, [facility]/pharmacy #1026, 167,... Start Date: 05/01/20 [...] 09/24/20 11:34:00 EDT, Route to Pharmacy Electronically, [facility]/pharmacy #1026,Partial fill upon patient request if the prescrip... Start Date: 09/24/20 Stop Date: 10/08/20 Status: Ordered Trelegy Ellipta inhalation powder 1 puffs, Inhalation, Daily, at the same time every day given by rivet hole puncher , Dr Berkowitz, # 60 each, 0 [...] Date: 09/22/20 Stop Date: 12/15/20 Status: Ordered [place] Reusable Bed Pad 34 x 36 [place] Reusable Bed Pad 34 x 36 , [...] apnea)(Confirmed) Active Osteopenia(Confirmed) 18, 19 11/16/12 Active *[phone] Care Partn igor More(Confirmed) Active Peripheral venous [...] lower parathyroidectomy. 06/16/08 SURGEON: Danny Marie M.D. COST CLERK: Naima Bowling M.D. 21b/l submassive PE diagnosed on Dec 20 in [facility] 22TTE 12/22/15 in [facility]: RV dilatation, RVSP 46 23Per ECHO 05/24/17 Trace mitral regurgitation , trace TC regurgitation w no significant valve pathology 24meg colo July 2009 exc for 2 hyperplastic polyps 25Colonoscopy 2004 at [facility] [place] per letter of Dr Amor Dobbins Social History Social History Type Response Smoking Status Never (less than 100 in lifetime) entered on: 09/10/20 Sex
--- OUTSIDE RECORDS SUMMARY | 2023-10-23 09:53 | XMS_ITS | Continuity of Care Document ---
Author Organization [facility] Address [address] [place] [address]- Care Team Providers Care Lead Die Molder Name Role Phone Florinda Trinh MD Primary Care Physician Encounter [facility] Date(s): 07/22/19 - 11/16/19 [facility] [place] [address] [place] [address]- [facility] Attending Physician: Florinda Trinh MD Admitting Physician: [...] exceed 2000 mg/day) danish, # 100 tablet, 11 Refills, Maintenance, 01/16/19 [...] 11 Refills, Maintenance, 09/25/19 11:21:00 EDT, Cream, [facility], 1 application Topically 3 [...] Refills, Maintenance, 03/27/19 9:10:00 EST, EC Capsule, [facility], 159, cm, 03/20/19 14:59:00 EST, Height, 88.3, kg, 12/13/18 10:17:00 EDT, Dry Weight Start Date: 03/27/19 Status: Ordered docusate sodium 100 mg oral tablet 2 tablet = 200 mg, By Mouth, 2 times a day, # 120 tablet, 11 Refills, Maintenance, 09/25/19 11:07:00 EDT, [facility], 159, cm, 05/20/19 12:19:00 EST, Height, 88.1, kg, 04/25/19 16:02:00 EST, Dry Weight Start Date: 09/25/19 Status: Ordered Eliquis 5 mg oral tablet 1 tablet = 5 mg, By Mouth, 2 times a day, # 60 tablet, 11 Refills, Maintenance, 07/22/19 8:58:00 EDT, Tablet, [facility], 159, cm, 05/20/19 12:19:00 EST, Height, 88.1, kg, 04/25/19 16:02:00 EST, Dry Weight Start Date: 07/22/19 Status: Ordered enalapril 10 mg oral tablet 10 mg, 1, tablet, By Mouth, Daily, 90 days, # 90 tablet, Refills 3, Tot. Refills 3, Maintenance, 09/19/18 15:15:30 EDT, Route to Pharmacy Electronically, [id number], [facility] Start Date: 09/19/18 Status: Ordered famotidine 40 mg oral tablet 1 tablet = 40 mg, By Mouth, Daily at bedtime, If 40 mg tablet is not available, can change to 20 mgtablet 2 tablet at bedtime, # 30 tablet, 2 Refills, Maintenance, 10/09/19 10:01:00 EDT, Tablet, [facility], 159, cm, 09/25/19 14:31... Start Date: 10/09/19 Status: Ordered flunisolide 25 mcg/inh nasal spray 2 puffs, Nasal, 2 times a day, Keep your head down while using dispense when patient request it, # 1 each, 11 Refills, Maintenance, 07/10/19 17:15:00 EDT, [facility]/pharmacy #0957, discontinue nasacort, 2 puffs [...] capsule, 11 Refills, Maintenance, 06/30/19 9:25:00 EDT, [facility]/pharmacy #0957, 159, cm, 05/20/19 12:19:00 [...] 01/16/19 8:53:23 EDT, Route to Pharmacy Electronically, [id number], [facility]... Start Date: 01/16/19 [...] tablet, 1 Refills, Maintenance, 09/25/19 11:46:00 EDT, [facility], 159, cm, 05/20/19 12:19:00 EST, Height, 88.1, kg, 04/25/19 16:02:00 EST, Dry Weight Start Date: 09/25/19 Status: Ordered metFORMIN 500 mg oral tablet 1 tablet = 500 mg, By Mouth, 2 times a day, Take 1 tablet 2x a day. E11.65, # 60 tablet, 11 Refills, Maintenance, 09/23/19 9:54:00 EDT, Tablet, [facility], 159, cm, 05/20/19 12:19:00 EST, Height, 88.1, kg, 04/25/19 16:02:00 EST, . Start Date: 09/23/19 Status: Ordered NovoLOG FlexPen 100 units/mL subcutaneous solution See Instructions, Max daily dose 100 units per day. E11.65, # 45 mL, 11 Refills, Maintenance, 09/23/19 9:56:00 EDT, [facility], DxE11.65, 159, cm, 05/20/19 12:19:00 EST, Height, 88.1, kg, 04/25/19 16:02:00 EST, Dry Weight Start Date: 09/23/19 Status: Ordered Pul-edw-ewqjn medical-grade oxford diabetic shoes, depth or hightop Aue-ppa-tqwbs medical-grade oxford diabetic shoes, depth or hightop, [...] 10/25/19 11:43:00 EDT, Route to Pharmacy Electronically, [facility], [place]... Start Date: 10/25/19 Stop Date: 11/22/19 Status: Ordered Pen [place], 32 G x 4 mm BD Ultra [...] 09/25/19 11:08:00 EDT, Route to Pharmacy Electronically, [facility] Tablet, 159, cm, 05/20/19... [...] Tot. Refills 5, Maintenance, 05/22/19 20:38:00 EST, Routeto Pharmacy Electronically, [facility]... Start Date: 05/22/19 [...] mL, 5 Refills, Maintenance, 09/23/19 9:57:00 EDT, [facility], 159, cm, 05/20/19 12:19:00 EST, Height, 88.1, kg, 04/25/19 16:02:00 EST, Dry Weight Start Date: 09/23/19 Status: Ordered Ventolin HFA 108 mcg/inh inhalation aerosol with adapter 2 puffs, Inhalation, 4 times a day, PRN Wheezing/Shortness of Breath, dispense when patient requestit, # 18 Gm, 5 Refills, Maintenance, 07/10/19 17:15:00 EDT, [facility]/pharmacy #[id number], 159, cm, 05/20/19 12:19:00 EST, Height, 88.1, kg, 04/25/19 16:02:00 EST... 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-LBP(Confirmed) 10 Active Hypercholesterolemia(Confirmed) Active Hypertension(Confirmed) Active Hysterectomy(Confirmed) Active Incontinence of urine(Confirmed) Active Iron deficiency anemia(Confirmed) Active Left ventricular hypertrophy(Confirmed) 11 Active Memory impairment(Confirmed) Active Mitral regurgitation(Confirmed) 12 05/24/17 Active Nephrolithiasis(Confirmed) 13, 14, 15 06/11/02 Active Obesity(Confirmed) Active JENNIFER (obstructive sleep apnea)(Confirmed) Active Osteopenia(Confirmed) 16, 17 11/16/12 Active *[id number]-[facility] Part[facility] david [place](Confirmed) Active Peripheral venous insufficiency(Confirmed) [...] on Dec 20 [facility] 5insulin dependent 6Per ECHO 05/24/1718 Grade I, mild diastolic dysfunction with impaired LV relaxation, which may be normal for the patient's age. 7EGD on 06/24/16 by GI, Dr Damien Dobbins w gastritis and esophageal varices grade 1 8EGD on 06/24/16 by GIDr Damien gastritis and esophageal varices grade 1 9left mild sensorineural hearing loss by [facility] Hearing Evaluation on 12/29/11 10Narcotic contract [...] lower parathyroidectomy. 06/16/08 SURGEON: Danny Marie M.D. SITE INSPECTOR: Naima Bowling M.D. 19b/l submassive PE diagnosed on Dec [address] [facility] 20TTE 12/22/[address] [facility]: RV dilatation, RVSP 46 21Per ECHO 05/24/17 Trace mitral regurgitation , trace TC regurgitation w no significant valve pathology 22meg colo July 2009 exc for 2 hyperplastic polyps 23Colonoscopy 2004 at [facility] [place] per letter of Dr Amor Dobbins Social History Social History Type Response Smoking Status Never (less than 100 in lifetime) entered on: 04/17/19 Sex
--- OUTSIDE RECORDS SUMMARY | 2023-10-23 09:53 | XMS_ITS | Continuity of Care Document ---
Author Organization [facility] ter Address [address] [place] [id number]- Care Team Providers Care Web Site Specialist Name Role Phone Gayathri GARZA, Florinda Primary Care Physician [place] [facility] [place]): [place]/07/20 [facility] [address] [place] [id number]- [facility] Encounter Diagnosis Pneumonia(Final) - 12/31/19 Hyperkalemia(Final) - 12/31/19 Discharge Disposition: A-D/C Home Attending Physician: Stu Britton MD Admitting Physician: Avila Rodarte MD Referring Physician: Not on Staff, Referring [...] or fever, (not to exceed 2000 mg/day) singaporean, # 100 tablet, 11 Refills, Maintenance, 01/16/19 [...] mg, 2, mL, Neb, Daily, given by splitter head , Dr Berkowitz, # 120 mL, Refills [...] 0 Refills, Maintenance, 01/07/20 12:02:00 EDT, Tablet, [facility], 167, cm, 01/06/20 8:40:00 EDT, Height, [...] 09/19/18 15:15:30 EDT, Route to Pharmacy Electronically, [id number], [facility] Start Date: 09/19/18 Status: [...] each, 11 Refills, Maintenance, 07/10/19 17:15:00 EDT, [facility]/pharmacy #0957, discontinue nasacort, 2 puffs Nasal 2 [...] 04/25/19 16:02:00 EST, Dry Weight Start Date: 3/15/20 Status: Ordered Hydrocerin, Eucerin or generic equivalant [...] capsule, 11 Refills, Maintenance, 06/30/19 9:25:00 EDT, [facility]/pharmacy #0957, 159, cm, 05/20/19 12:19:00 EST, Height, [...] Neb, Daily, PRN for wheezing, given by splitter head , Dr Berkowitz, # 30 each, 0Refills, Maintenance, 11/20/19 13:06:00 EDT, Solution Start Date: 11/20/19 Status: Ordered loratadine 10 mg oral tablet 10 mg, 1, tablet, By Mouth, Daily, PRN, 90 days, # 90 tablet, Refills 3, Tot. Refills 3, Maintenance, as needed for allergy symptoms, 01/16/19 8:53:23 EDT, Route to Pharmacy Electronically, [id number], [facility] Start Date: 01/16/19 Status: Ordered magnesium citrate 8.85% oral liquid 150 mL = 8.725 Gm, By Mouth, Once, # 300 mL, 0 Refills, Soft Stop, 06/05/18 13:22:39 EST, Liquid, 150 mL By Mouth Once Start Date: 06/05/18 Status: Ordered NovoLOG FlexPen 100 units/mL subcutaneous solution See Instructions, 2- 16 UNITS three times a day before meals, see order comments, # 45 mL, 11 Refills, Maintenance, 09/23/19 9:56:00 EDT, [facility], DxE11.65, 159, cm, 05/20/19 12:19:00 EST, Height, 88.1, kg, 04/25/19 16:02:00 EST... Start Date: 09/23/19 Status: Ordered Jkc-dco-ymnfb medical-grade oxford diabetic shoes, depth or hightop Mwo-aag-grtjz medical-grade oxford diabetic shoes, depth or hightop, [...] Route to Pharmacy Electronically, [facility], [place]... Start Date: 12/20/19 Stop Date: 01/17/20 Status: Ordered Pen [place], 32 G x 4 mm BD Ultra [...] 09/25/19 11:08:00 EDT, Route to Pharmacy Electronically, [facility] Tablet, 159, cm, 05/20/19... Start Date: 09/25/19 [...] 5, Maintenance, 11/29/19 14:34:00 [facility] Start Date: 11/29/19 Status: Ordered TENS electrode pads TENS electrode pads, See Instructions, # 1 box, Refills 5, Tot. Refills 5, Maintenance, use as directed for back pain Dx LBP M54.9 1 box of 4, 12/06/16 14:59:01, Compound Start Date: 12/06/16 Status: Ordered Trelegy Ellipta inhalation powder 1 puffs, Inhalation, Daily, at the same time every day given by splitter head , Dr Berkowitz, # 60 each, 0 Refills, Maintenance, 11/20/19 13:03:00 EDT, Powder Start Date: 11/20/19 Status: Ordered Tresiba FlexTouch 200 units/mL subcutaneous solution See Instructions, REDUCE DOSE TO 20 UNITS DAILY, UNTIL FOLLOW UP WITH PRIMARY CARE PROVIDER, # 18 mL, 5 Refills, Maintenance, 09/23/19 9:57:00 EDT, [facility], 159, cm, 05/20/19 12:19:00 EST, Height, 88.1, kg, 04/25/19 16:02:00 EST... Start Date: 09/23/19 Status: Ordered Trulicity Pen [...] Gm, 5 Refills, Maintenance, 07/10/19 17:15:00 EDT, [facility]/pharmacy #0957, 159, cm, 05/20/19 12:19:00 EST, Height, 88.1, kg, 04/25/19 16:02:00 EST... 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 use of opi ate analgesic-LBP(Confirmed) 12 Active Hypercholesterolemia(Confirmed) Active Hyperparathyroidism s/p righ t lower parathyroidectomy 06/16/2008(Confirmed) Active Hypertension(Confirmed) Active Hysterectomy(Confirmed) Active Incontinence of urine(Confirmed) Active Iron deficiency anemia(Confirmed) Active Left ventricular hypertrophy(Confirmed) 13 Active Memory impairment(Confirmed) Active Mitral regurgitation(Confirmed) 14 05/24/17 Active Nephrolithiasis(Confirmed) 15, 16, 17 06/11/02 Active Obesity(Confirmed) Active JENNIFER (obstructive sleep apnea)(Confirmed) Active Osteopenia(Confirmed) 18, 19 11/16/12 Active *[id number]-[facility] Partn david [place](Confirmed) Active Peripheral [...] mild sensorineural hearing loss by [facility] Hearing Evaluation on 12/29/11 [...] lower parathyroidectomy. 06/16/08 SURGEON: Danny Marie M.D. UI DEVELOPER: Naima Bowling M.D. 21b/l submassive PE diagnosed on Dec 20 in [facility] 22TTE 12/22/15 in [facility]: RV dilatation, RVSP 46 23Per ECHO 05/24/17 Trace mitral regurgitation , trace TC regurgitation w no significant valve pathology 24meg colo July 2009 exc for 2 hyperplastic polyps 25[address]oscopy [address] [facility] [place] per letter of Dr Amor Dobbins Results Radiology Reports * Exam Date Time Procedure Performing Provider Status 12/31/19 1:17 PM Chest Portable Ashley Miles; Auth (Verified) Notes: (Chest Portable) Reason For Exam: cp sob;Other: RESULT: Chest Portable Chest Portable INDICATION: Shortness breath. COMPARISON: Multiple priors, most recent 12/27/2019 FINDINGS: LUNGS AND PLEURA: Increased interstitial markings present. No pleural effusion or pneumothorax is demonstrated. Thereis more focal opacity within the periphery of the right lung.. HEART, MEDIASTINUM AND SERINA: Mild prominence of the cardiac silhouette, unchanged. Normal mediastinal and hilar contour. BONES AND SOFT TISSUES: No acute osseous abnormality. Multiple surgical clips in the right upper quadrant. IMPRESSION: Findings suggestive of pulmonary edema. An underlying infectious process cannot be excluded. I have personally reviewed the images and I agree with this report. WSN: [id number] Ordering Physician: Mateo Restrepo Dictated By: Misha Interiano MD Dictated Date/Time: 12/31/19 1:49 pm Reviewed By: Evy Cruz MD Signed By: Evy Cruz MD Signed Date/Time: 12/31/19 1:54 pm Transcribed By: AUGUSTINE Transcribed Date/Time: 12/31/19 1:25 pm Vital Signs Most recent to oldest [Reference Range]: 1 2 3 Height 167 cm (01/06/20 8:40 AM) 167 cm (01/05/20 7:00 PM) 167 cm (01/05/20 9:34 AM) Weight 78.8 kg (12/31/19 8:33 PM) Oxygen Saturation [94-100 %] 97 % (01/06/20 7:00 PM) 96 % (01/06/20 8:40 AM) 100 % (01/05/20 7:00 PM) Pulse Rate [55-90 bpm] 64 bpm (01/06/20 7:00 PM) 63 bpm (01/06/20 8:40 AM) 60 bpm (01/05/20 7:00 PM) Body Mass Index [18.5-24.99] 28.25 *H* (12/31/19 8:33 PM) Blood Pressure [90-138/55-84 mm Hg] 144/79mm Hg *H* (01/06/20 7:00 PM) 142/80mm Hg *H* (01/06/20 8:40 AM) 152/71mm Hg *H* (01/05/20 7:00 PM) Respiratory Rate [16-30 br/min] 16 br/min (01/07/20 12:35 PM) 18 br/min (01/07/20 11:00 AM) 18 br/min (01/07/20 9:04 AM) Temperature [96.8-100.4 DegF] 97.8 DegF (01/06/20 7:00 PM) 97.9 DegF (01/06/20 8:40 AM) 99.1 DegF (01/05/20 7:00 PM) Liters per Minute 2 L/min (01/05/20 7:00 PM) 2 L/min (01/05/20 9:34 AM) 2 L/min (01/04/20 7:00 PM) Mode of Delivery (Oxygen) Room air (01/06/20 7:00 PM) Room air (01/06/20 8:40 AM) Nasal cannula (01/05/20 7:00 PM) Blood pressure sites Arm, left (01/06/20 7:00 PM) Arm, left (01/06/20 8:40 AM) Arm, right (01/05/20 7:00 PM) Temperature Route Oral (01/06/20 7:00 PM) Oral (01/06/20 8:40 AM) Oral (01/05/20 7:00 PM) Dry Weight 78.8 kg (12/31/19 8:33 PM) Social History Social History Type Response Smoking Status Never (less than 100 in lifetime) entered on: 12/25/19 Sex
--- OUTSIDE RECORDS SUMMARY | 2023-10-23 09:53 | XMS_ITS | Continuity of Care Document ---
Author Organization [facility] Address [address] [place] [address]- Care Team Providers Care Sign Erector And Repairer Name Role Phone Gayathri GARZA, Florinda Primary Care Physician Encounter [facility] Date(s): 08/09/22 - 09/15/22 [facility] [address] [place] [address]- Attending Physician: Adalgisa AIRBORNE SENSOR SPECIALIST, Gabriela Allergies, Adverse Reactions, Alerts Substance Reaction Severity Status enalapril Active penicillin RASH Active Lidocaine, Topical Active morphine itchy Active Bactrim 1 hyperkalemia Active 1Hyperkalemia when used together with lisinopril Immunizations Given and Recorded Vaccine Date Status Refusal Reason [id number] 12y+ bivalent booster vax 05/25/22 Given influenza [...] zoster vaccine, inactivated 09/15/21 Given SARS-CoV-2 mRNA (anfgwty-tfva-[id number]) vax 09/15/21 Given SARS-CoV-2 (COVID-19) mRNA BNT-162b2 [...] Refills, Maintenance, 05/25/22 12:08:00 EST, ER Tablet, [facility]/pharmacy #[id number], Discontinue Motrin, 158, cm, 05/25/22 [...] Gm, 11 Refills, Maintenance, 07/21/21 12:43:00 EDT, [facility]/pharmacy #1026, 1 applicator Topically 2 times a day, 160, cm, 07/21/21 10:22:00 EDT, Height, 80.6, kg, 06/03/20 19:00:00 EST, Dry Weight Start Date: 07/21/21 Status: Ordered Baqsimi Two Pack 3 mg nasal powder = 3 mg, Naris, Right, Once, Please use for a low blood sugar emergency, may repeat in 15 minutes, #1 each, 3 Refills, Soft Stop, 03/09/22 11:35:00 EST, [facility]/pharmacy #0838, 160, cm, 03/09/22 10:43:00EST, Height, 78, kg, 01/14/22 19:37:00 EDT, Dry W... Start Date: 03/09/22 Status: Ordered Biotene Moisturizing Mouth oral spray See Instructions, [place] directly into mouth; spray is safe to swallow as needed for dry mouth, # 45mL, 11 Refills, Maintenance, 05/25/22 12:42:00 EST, [facility]/pharmacy #0838, Partial fill upon patient request [...] P.M. NEEDED & 1 TAB AT [facility], # 180 tablet, 1 Refills, Maintenance, 08/05/22 12:49:00 EDT, [facility], 158, cm, 07/12/22 11:54:00 EDT, Height, 76, kg, 05/07/22 6:04:00 ES... Start Date: 08/05/22 Status: Ordered capsaicin 0.025% topical cream 1 application, Topically, 3 times a day, # 35 Gm, 11 Refills, Maintenance, 07/21/21 12:26:00 EDT, Cream, [facility]/pharmacy #1026, 1 [...] 11 Refills, Maintenance, 12/06/21 15:04:00 EDT, Tablet, [facility], Partial fill upon patient request if the prescription is for a schedule II opioid drug., 160, cm, 11/23/21 14:47:00 ED... Start Date: 12/06/21 Status: Ordered esomeprazole 40 mg oral enteric coated capsule See Instructions, TAKE 1 CAPSULE BY MOUTH DAILY 30 MINUTES BEFORE BREAKFAST, # 30 capsule, 2 Refills, Maintenance, 08/05/22 12:49:00 EDT, [facility] STORE [facility], 158, cm, 07/12/22 11:54:00 EDT, Height, 76, kg, 05/07/22 6:04:00 EST, Dry Weight Start Date: 08/05/22 Status: Ordered famotidine 40 mg oral tablet 1 tablet = 40 mg, By Mouth, Daily at bedtime, If 40 mg tablet is not available, can be changed to 20 mg tablet 2 tablet at bedtime, # 90 tablet, 3 Refills, Maintenance, 07/12/21 18:53:00 EDT, Tablet,[facility]/pharmacy #1026, Discontinue 30- day supply presc... Start Date: 07/12/21 Stop Date: 07/07/22 Status: Ordered ferrous sulfate 325 mg oral tablet 1 tablet = 325 mg, By Mouth, Daily, May take with food to minimize abdominal discomfort. Do not take with milk. Take preferrably with juice., # 90 tablet, 3 Refills, Maintenance, 09/15/21 8:56:00 EDT, [facility]/pharmacy #1026, 160, cm, 09/15/21 8:15:00 EDT,... [...] tablet, 0 Refills, Maintenance, 07/08/22 9:47:00 EDT, [facility] STORE [id number], 158, cm, 06/16/22 11:27:00 EST, Height, 76, kg, 05/07/22 6:04:00 EST, Dry Weight Start Date: 07/08/22 Status: Ordered ketotifen 0.025% ophthalmic solution 1 drops, Eyes, Both, Every 12 hours, PRN as needed for eye allergy, # 7.5 mL, 11 Refills, Maintenance, 06/25/21 8:34:00 EDT, [facility]/pharmacy #1026, 1 [...] 90 tablet, 3 Refills, 03/09/22 11:57:00 EST, [facility]/pharmacy #0838, 1 tablet By Mouth Daily before dinner,PRN:allergies, 160, cm, 03/09/22 10:43:00 EST, Height, 78, kg, 01/14/22 19:37:00 ED... Start Date: 03/09/22 Status: Ordered montelukast 10 mg oral tablet 10 mg, 1, tablet, By Mouth, Daily at bedtime, # 90 tablet, Refills 3, Tot. Refills 3, Maintenance, 03/09/22 11:37:00 EST, Route to Pharmacy Electronically, [facility]/pharmacy #0838, 160, cm, 03/09/22 10:43:00 EST, Height, 78, kg, 01/14/22 19:37:00 EDT, Dry... Start Date: 03/09/22 Stop Date: 03/04/23 Status: Ordered Norvasc 5 mg oral tablet 5 mg, 1, tablet, By Mouth, Daily, # 90 tablet, Refills 3, Tot. 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 Start Date: 03/09/22 Status: Ordered Emq-fol-ssirz medical-grade oxford diabetic shoes, depth or hightop Brk-pwu-nszxr medical-grade oxford diabetic shoes, depth or hightop, [...] 08/19/22 Stop Date: 09/16/22 Status: Ordered Pen [place], 32 G x 4 mm BD Ultra [...] tablet, 11 Refills, Maintenance, 03/09/22 11:39:00 EST, [facility]/pharmacy #0838, 160, cm, 03/09/22 10:43:00 EST, [...] same time every day Given by Manager Quality Improvement, Dr. Michael Berkowitz, # 60 each, 0 [...] Gm, 5 Refills, Maintenance, 11/09/20 12:36:00 EDT, [facility]/pharmacy #1026, 160, cm, 10/22/20 9:15:00 EDT, [...] Date: 03/09/22 Stop Date: 06/01/22 Status: Ordered [place] Reusable Bed Pad 34 x 36 [place] Reusable Bed Pad 34 x 36 , [...] Osteopenia 18, 19, 20 Confirmed 11/16/12 Active *[id number] Residential Door Installer Karine More Confirmed Active Peripheral venous insufficiency [...] 2 peroneal veins diagnosed on Dec 20 [facility] 6insulin dependent 7Per ECHO 05/24/1718 [...] 1 11left mild sensorineural hearing loss by [facility] Hearing Evaluation on 12/29/11 12Narcotic contract [...] lower parathyroidectomy. 06/16/08 SURGEON: Danny Marie M.D. PRINTMAKER: Naima Bowling M.D. 22b/l submassive PE diagnosed on Dec 20 in [facility] 23TTE 12/22/15 in [facility]: RV dilatation, RVSP 46 24Per ECHO 05/24/17 Trace mitral regurgitation , trace TC regurgitation w no significant valve pathology 25meg colo July 2009 exc for 2 hyperplastic polyps 26Colonoscopy 2004 at [facility] [place] per letter of Dr Amor Dobbins Social [...] Role: Lifetime Consulting Physician Address: Address: [address] [place] [address] [facility] [place] [address]- Name: Florinda Trinh MD Position: [facility] Physician - Primary Care Member Role: PCP Address: Address: [address] [place] [address] Care Team Related Persons Name: JOSE ELIAS TODD Address: [place] [address] Name: JOSE ELIAS KIRKLAND Address: home [address] [place] [id number] Name: LEONIE SCHRADER Address: [place] [address]
--- OUTSIDE RECORDS SUMMARY | 2023-10-23 09:53 | XMS_ITS | Continuity of Care Document ---
Author Organization [facility] Address [address] [place] [address]- Care Team Providers Care Display Coordinator Name Role Phone Gayathri GARZA, Florinda Primary Care Physician Encounter [facility] Date(s): 08/24/20 - 09/23/20 [facility] [address] [place] [address]- Allergies, Adverse Reactions, Alerts Substance Reaction Severity [...] 07/16/20 15:26:00 EDT, Route to Pharmacy Electronically, [facility]/pharmacy #1026, 160, cm, 06/12/20 9:01... Start Date: 07/16/20 Status: Ordered ammonium lactate 12% topical cream 1 applicator, Topically, 2 times a day, # 280 Gm, 11 Refills, Maintenance, 01/27/20 19:13:00 EDT, [facility]/pharmacy #1026, 1 applicator Topically 2 times a day, 167, cm, 01/13/20 8:54:00 EDT, Height, 78.8, kg, 01/01/20 3:41:00 EDT, Dry Weight Start Date: 01/27/20 Status: Ordered Baqsimi Two Pack 3 mg nasal powder = 3 mg, Naris, Right, Once, Please use for a low blood sugar emergency, may repeat in 15 minutes, #2 each, 3 Refills, Soft Stop, 06/26/20 7:30:00 EDT, [facility]/pharmacy #1026, Partial fill upon patient request if the prescription is for a schedule II op... Start Date: 06/26/20 Status: Ordered calcium (as citrate)-vitamin D 315 mg-250 intl units oral tablet 2 tablet, By Mouth, 2 times a day, for 30 days, calcium citrate, # 120 tablet, 11 Refills, Hard Stop 01/21/21 19:13:00 EDT, 01/27/20 19:13:00 EDT, Tablet, [facility]/pharmacy #1026, 167, cm, 01/13/20 8:54:00 EDT, Height, 78.8, kg, 01/01/20 3:41:00 EDT, Dry... Start Date: 01/27/20 Stop Date: 01/21/21 Status: Ordered capsaicin 0.025% topical cream 1 application, Topically, 3 times a day, # 90 Gm, 11 Refills, Maintenance, 02/10/20 11:22:00 EST, Cream, [facility]/pharmacy #1026, 1 application Topically 3 times a [...] tablet, 1 Refills, Maintenance, 08/31/20 14:45:00 EDT, [facility]/pharmacy #1026, 160, cm, 08/14/20 9:34:00 EDT... Start [...] capsule, 0 Refills, Maintenance, 08/28/20 17:52:00 EDT, [facility]/pharmacy #1026, 160, cm, 08/14/20 9:34:00 EDT, Height, 80.6, kg, 06/03/20 19:00:00 EST, Dry Weight Start Date: 08/28/20 Stop Date: 11/26/20 Status: Ordered ketotifen 0.025% ophthalmic solution 1 drops, Eyes, Both, Every 12 hours, PRN as needed for eye allergy, # 7.5 mL, 11 Refills, Maintenance, 01/27/20 19:13:00 EDT, [facility]/pharmacy #1026, 1 drops Eyes, Both Every 12 [...] 06/24/20 9:08:00 EDT, Route to Pharmacy Electronically, [facility]/pharmacy #1026, 160, cm, 06/12/20 9:01:00 EST, Height, 80... 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 Start Date: 01/21/20 Status: Ordered Cdk-ljd-topda medical-grade oxford diabetic shoes, depth or hightop Omr-nnu-bgrjg medical-grade oxford diabetic shoes, depth or hightop, [...] 10/30/20 10:25:00 EDT, Route to Pharmacy Electronically, [facility]/pharmacy #1026, Part... Start Date: 10/30/20 Stop Date: 11/27/20 Status: Ordered oxyCODONE 5 mg oral tablet 5 mg, 1, tablet, By Mouth, Every 4 hours, for 28 days, PRN pain dispense not earlier than 11/27/20, # 168 tablet, Refills 0, Tot. Refills 0, Acute 12/25/20 10:25:00 EDT, 11/27/20 10:25:00 EDT, Route to Pharmacy Electronically, [facility]/pharmacy #1026, Part... Start Date: 11/27/20 Stop Date: 12/25/20 Status: Ordered oxyCODONE 5 mg oral tablet 5 mg, 1, tablet, By Mouth, Every 4 hours, for 28 days, PRN pain dispense not earlier than09/04/20, #168 tablet, Refills 0, Tot. Refills 0, Acute 10/02/20 10:25:00 EDT, 09/04/20 10:25:00 EDT, Route toPharmacy Electronically, [facility]/pharmacy #1026, Parti... Start Date: 09/04/20 Stop Date: 10/02/20 Status: Ordered oxyCODONE 5 mg oral tablet 5 mg, 1, tablet, By Mouth, Every 4 hours, for 28 days, PRN pain dispense not earlier than 10/02/20, # 168 tablet, Refills 0, Tot. Refills 0, Acute 10/30/20 10:25:00 EDT, 10/02/20 10:25:00 EDT, Route to Pharmacy Electronically, [facility]/pharmacy #1026, Part... Start Date: 10/02/20 Stop Date: 10/30/20 Status: Ordered Pen [place], 32 G x 4 mm BD Ultra [...] 527 Gm,11 Refills, Maintenance, 01/27/20 19:13:00 EDT, [facility]/pharmacy #1026, 17- 34 Gm By Mouth Daily,PRN:asneeded [...] 02/10/20 11:22:00 EST, Route to Pharmacy Electronically, [facility]/pharmacy #1026 Tablet, 167, cm, 01/13/20 8:5... Start [...] 05/01/20 9:28:00 EST, Route to Pharmacy Electronically, [facility]/pharmacy #1026, 167,... Start Date: 05/01/20 Status: Ordered [...] 08/14/20 10:39:00 EDT, Route to Pharmacy Electronically, [facility]/pharmacy #1026,Partial fill upon patient request if the prescrip... Start Date: 08/14/20 Stop Date: 08/28/20 Status: Ordered Trelegy Ellipta inhalation powder 1 puffs, Inhalation, Daily, at the same time every day given by pneumatic tool repairer , Dr Berkowitz, # 60 each, 0 [...] Date: 09/22/20 Stop Date: 12/15/20 Status: Ordered [place] Reusable Bed Pad 34 x 36 [place] Reusable Bed Pad 34 x 36 , [...] 1 Refills, Maintenance, 09/10/20 9:48:00 EDT, Tablet, [facility]/pharmacy #1026, Partial fill upon patient request if [...] apnea)(Confirmed) Active Osteopenia(Confirmed) 18, 19 11/16/12 Active *[id number] Care Partn igor More(Confirmed) Active Peripheral venous [...] 2 peroneal veins diagnosed on Dec 20 [facility] 6insulin dependent 7Per ECHO 05/24/1718 Grade [...] 11left mild sensorineural hearing loss by [facility] Hearing Evaluation on 12/29/11 12Narcotic contract [...] lower parathyroidectomy. 06/16/08 SURGEON: Danny Marie M.D. DRAW END HAND: Naima Bowling M.D. 21b/l submassive PE diagnosed on Dec 20 in [facility] 22TTE 12/22/15 in [facility]: RV dilatation, RVSP 46 23Per ECHO 05/24/17 Trace mitral regurgitation , trace TC regurgitation w no significant valve pathology 24meg colo July 2009 exc for 2 hyperplastic polyps 25Colonoscopy 2004 at [facility] [place] per letter of Dr Amor Dobbins Social History Social History Type Response Smoking Status Never (less than 100 in lifetime) entered on: 09/10/20 Sex
--- OUTSIDE RECORDS SUMMARY | 2023-10-23 09:53 | XMS_ITS | Continuity of Care Document ---
Author Organization [facility] Address [address] [place] [address]- Care Team Providers Care Slitter Creaser Slotter Helper Name Role Phone Massimo Figueroa Primary Care Physician Encounter [facility] Date(s): 02/10/23 - 03/12/23 [facility] [address] [place], [place] [address] Allergies, Adverse Reactions, Alerts Substance Reaction [...] virus vaccine, inactivated 6 05/06/04 Gi zeny [id number] 12y+ bivalent booster vax 05/25/22 Given zoster vaccine, inactivated 12/08/21 Given zoster vaccine, inactivated 09/15/21 Given SARS-CoV-2 mRNA ([id number]-lfxd-bjhdo) vax 09/15/21 Given SARS-CoV-2 (COVID-19) mRNA BNT-162b2 [...] Maintenance, 05/25/22 12:08:00 EST, ER Tablet, [id number], Discontinue Motrin, 158, cm, 05/25/22 11:12:00... Start [...] 3 Refills, Soft Stop, 03/09/22 11:35:00 EST, [facility]/pharmacy #0838, 160, cm, 03/09/22 10:43:00EST, Height, 78, kg, 01/14/22 19:37:00 EDT, Dry W... Start Date: 03/09/22 Status: Ordered Biotene Moisturizing Mouth oral spray See Instructions, [place] directly into mouth; spray is safe to [...] P.M. NEEDED & [facility], # [facility] tablet, 1 Refills, Maintenance, 08/05/22 12:49:00 EDT, [facility], 158, cm, 07/12/22 11:54:00 EDT, Height, 76, [...] tablet, 3 Refills, Maintenance, 09/15/21 8:56:00 EDT, [facility]/pharmacy #1026, 160, cm, 09/15/21 [...] Refills, Maintenance, 07/08/22 9:47:00 EDT, [facility], 158, cm, 06/16/22 11:27:00 EST, Height, 76, [...] 90 tablet, 3 Refills, 11/30/22 11:57:00 EST, [facility]/pharmacy #0838, 1 tablet By [...] 03/09/22 11:37:00 EST, Route to Pharmacy Electronically, [facility]/pharmacy #0838, 160, cm, 03/09/22 [...] 03/09/22 11:54:00 EST, [facility] 160, cm, 03/09/22 [...] # 15... Start Date: 11/24/22 Status: Ordered Anc-gom-nqery medical-grade oxford diabetic shoes, depth or hightop Ugs-fzz-xstaa medical-grade oxford diabetic shoes, depth or hightop, [...] DOLOR Start Date: 11/24/22 Status: Ordered Pen [place], 32 G x 4 mm BD Ultra [...] 4 Refills, Maintenance, 11/24/22 9:55:00 EDT, Tablet, [facility]/pharmacy #0838, Partial fill upon [...] 15 mL, 3 Refills, Maintenance, 02/24/2312:11:00 EST, [facility]/pharmacy #0838, Partial fill upon [...] Date: 03/09/22 Stop Date: 06/01/22 Status: Ordered Blair Reusable Bed Pad 34 x 36 Blair Reusable Bed Pad 34 x 36 , [...] 12/29/11 Active Hepatitis C Confirmed Active 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 06/16/08 SURGEON: Danny Marie M.D. PLASTIC DUPLICATOR: Naima Bowling M.D. 22b/l submassive PE diagnosed on Dec 20 in [facility] 23TTE 12/22/15 in [facility]: RV dilatation, RVSP 46 24Per ECHO 05/24/17 Trace mitral regurgitation , trace TC regurgitation w no significant valve pathology 25meg colo July 2009 exc for 2 hyperplastic polyps 26Colonoscopy 2004 at [facility] [place] per letter of Dr Amor Dobbins Social History Social History Type Response Smoking Status Never (less than 100 in lifetime) entered on: 10/22/20 Sex Patient Care team information Care Team Personnel Name: Massimo Figueroa Position: [facility] Outreach Member Role: PCP Address: Address: [address] [place] [address] Name: Diamond Weiss RN Position: S RN Member Role: Primary Care Nurse Name: Tiara Cavazos RN Position: [facility] OB RN Member Role: Primary Care Nurse Name: Shreya Boss RN Position: [facility] RN Member Role: Primary Care Nurse Name: Dhruv Khan RN Position: [facility] RN Member Role: Primary Care Nurse Name: Virginia Benson RN Position: [facility] SN RN Member Role: Primary Care Nurse Name: Jaylin Hernandez RN Position: [facility] Onco RN Member Role: Primary Care Nurse Name: Glen Cota MD Position: [facility] Renal MD Member Role: Lifetime Consulting Physician Address: Address: [address] [place] [address] [facility] [address] Name: Carole Toro LPN Position: [facility] RN Member Role: Primary Care Nurse Care Team Related Persons Name: JOSE ELIAS TODD Address: [place] [address] Name: JOSE ELIAS KIRKLAND Address: home [address] [place] [address] Name: LEONIE SCHRADER Address: [place] [address]
--- OUTSIDE RECORDS SUMMARY | 2023-10-23 09:53 | XMS_ITS | Continuity of Care Document ---
Author Organization [facility] Address [address] [place] [address]- Care Team Providers Care Waste Elimination Name Role Phone Florinda Trinh MD Primary Care Physician Encounter [facility] Date(s): 02/01/22 - 03/03/22 [facility] [address] [place] [address]- Attending Physician: Yaya Patino Admitting Physician: AdmtrYaya Referring Physician: Admtr, Ar8 Allergies, Adverse Reactions, Alerts Substance Reaction Severity Status penicillin RASH Active morphine itchy Active Bactrim 1 hyperkalemia Active Lidocaine, Topical Active 1Hyperkalemia when used together with lisinopril Immunizations Given and Recorded Vaccine Date Status Refusal Reason zoster vaccine, inactivated 12/08/21 Given zoster vaccine, inactivated 09/15/21 Given SARS-CoV-2 mRNA (yiktyxi-basl-argeq) vax 09/15/21 Given SARS-CoV-2 (COVID-19) mRNA BNT-162b2 [...] 03/16/22 13:10:00 EST, 02/16/22 13:10:00 EST, Tablet, [facility], Partial greyson... Start Date: 02/16/22 Stop [...] needed for anxiety and 1tab at HS hoewdb-ypa-cyfsv, # 60 tablet, 11 Refills, Maintenance, 09/15/21 9:02:00 EDT, [facility], Partial fill upon patient request... Start Date: 09/15/21 Status: Ordered capsaicin 0.025% topical cream 1 application, Topically, 3 times a day, # 35 Gm, 11 Refills, Maintenance, 07/21/21 12:26:00 EDT, Cream, [facility]/pharmacy #1026, 1 [...] 11 Refills, Maintenance, 04/21/21 18:12:00 EST, Tablet, [facility]/pharmacy #1026, 160, cm, 03/03/21 11:23:00 EST, Height, 80.6, kg, 06/03/20 19:00:00 EST, Dry Weight Start Date: 04/21/21 Status: Ordered escitalopram 20 mg oral tablet 1 tablet = 20 mg, By Mouth, Daily, # 30 tablet, 11 Refills, Maintenance, 12/06/21 15:04:00 EDT, Tablet, [facility], Partial fill upon [...] tablet, 3 Refills, Maintenance, 07/12/21 18:53:00 EDT, Tablet,[facility] #1026, Discontinue 30- day supply [...] 04/28/21 14:34:00 EST, Route to Pharmacy Electronically, [facility]/pharmacy #1026, Can use with HCTZ, [...] capsule, 3 Refills, Maintenance, 11/19/21 14:28:00 EDT, [facility]/pharmacy #1026, 160, cm, 11/05/21 9:50:00 EDT, Height, 80.5, kg, 11/05/21 9:50:00 EDT, Dry Weight Start Date: 11/19/21 Stop Date: 11/14/22 Status: Ordered ketotifen 0.025% ophthalmic solution 1 drops, Eyes, Both, Every 12 hours, PRN as needed for eye allergy, # 7.5 mL, 11 Refills, Maintenance, 06/25/21 8:34:00 EDT, [facility]/pharmacy #1026, 1 drops Eyes, Both [...] LOS HDZ, # 90 tablet, 1 Refills, [facility] STORE 99466, 90, TOME GAGE TABLETA POR VIA ORAL [...] capsule, 11 Refills, Maintenance, 04/28/21 14:00:00 EST, [facility]/pharmacy #1026, Discontinue pantoprazole, 160, cm, [...] 09/21/21 9:23:00 EDT, Route to Pharmacy Electronically, [facility], Partial fill upon patient request if [...] #1026, 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 Start Date: 01/17/22 Status: Ordered Nkw-xxx-ivvnd medical-grade oxford diabetic shoes, depth or hightop Atz-jtn-aoqfx medical-grade oxford diabetic shoes, depth or hightop, See Instructions, # 1 each, Refills 0, Tot. 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 Start Date: 07/21/21 Status: Ordered Pen [place], 32 G x 4 mm BD Ultra [...] the same time every day Given by Grape Cutter, Dr. Michael Berkowitz, # 60 each, 0 Refills, Maintenance, 07/21/21 11:59:00 EDT, Powder, Partial fill upon patient request if the prescription is for a schedule II opi... Start Date: 07/21/21 Status: Ordered Tresiba FlexTouch 200 units/mL subcutaneous solution See Instructions, INJECT 86 UNITS DAILY AT 9PM, # 45 Unknown, 6 Refills, [facility], 160, cm, 06/21/21 9:57:00 EDT, Height, 80.6, kg, 06/03/20 19:00:00 EST, Dry Weight Start Date: 06/22/21 Status: Ordered Ventolin HFA 108 mcg/inh inhalation aerosol with adapter 2 puffs, Inhalation, 4 times a day, PRN Wheezing/Shortness of Breath, dispense when patient requestit, # 18 Gm, 5 Refills, Maintenance, 11/09/20 12:36:00 EDT, [facility]/pharmacy #1026, 160, cm, 10/22/20 9:15:00 EDT, Height, 80.6, kg, 06/03/20 19:00:00 EST,... Start Date: 11/09/20 Status: Ordered Voltaren 1% topical gel = 2 Gm, Topically, 4 times a day, # 100 Gm, 5 Refills, Maintenance, 02/15/21 11:40:00 EST, [facility]/pharmacy #1026, 2 Gm Topically 4 times a day,x14 days, 160, cm, 02/15/21 8:47:00 EST, Height, 80.6, kg, 06/03/20 19:00:00 EST, Dry Weight Start Date: 02/15/21 Stop Date: 05/10/21 Status: Ordered Thorndike Reusable Bed Pad 34 x 36 Thorndike Reusable Bed Pad 34 x 36 , [...] Osteopenia 18, 19, 20 Confirmed 11/16/12 Active *[id number] Subpoena Server Karine More Confirmed Active Peripheral venous insufficiency [...] lower parathyroidectomy. 06/16/08 SURGEON: Danny Marie M.D. BOILERHOUSE MECHANIC: Naima Bowling M.D. 22b/l submassive PE diagnosed on Dec 20 in [facility] 23TTE 12/22/15 in [facility]: RV dilatation, RVSP 46 24Per ECHO 05/24/17 Trace mitral regurgitation , trace TC regurgitation w no significant valve pathology 25meg colo July 2009 exc for 2 hyperplastic polyps 26Colonoscopy 2004 at [facility] [place] per letter of Dr Amor Dobbins [...] Care Nurse Name: Virginia Benson RN Position: [facility] RN Member Role: Primary Care Nurse Name: Jyalin Hernandez RN Position: [facility] Onco RN Member Role: Primary Care Nurse Name: Glen Cota MD Position: [facility] Renal MD Member Role: Lifetime Consulting Physician Address: Address: [address] [place] [address] [facility] [address] Name: Florinda Trinh MD Position: [facility] Primary Care Physician Member Role: PCP Address: Address: [address] [place] [address] Care Team Related Persons Name: JOSE ELIAS TODD Address: [place] [address] Name: JOSE ELIAS KIRKLAND Address: home [address] [place] [address] Name: LEONIE SCHRADER Address: [place] [address]
--- OUTSIDE RECORDS SUMMARY | 2023-10-23 09:54 | XMS_ITS | Patient Health Record ---
Author Organization [facility] Address [address] [place] [address] Care Team Providers Care Local Intermodal Truck Driver Name Role Phone Massimo Figueroa Primary Care Provider Unavail able Miguel A Layne Unavailable [phone] ALLERGIES Allergen (clinical drug ingredient) Drug/Non Drug Allergy documented on EMR Reaction Allergy Type Onset Date Status amoxicillin Amoxicillin hives Drug Allergy Act fred lidocaine Lidocaine hives Drug Allergy Active morphine Morphine Sulfate itchy Drug Allergy Active REASON FOR REFERRAL No Information MEDICATIONS Medication SIG (Take, Route, Frequency, Duration) Notes Start Date End Date Status HumaLOG KwikPen 200 UNIT/ML as directed Subcutaneous Not-Taking Ketotifen Fumarate 0.025 % 1 drop into a ffected eye Ophthalmic Twice a day Not-Taking Sucralfate 1 GM/10ML 10 ml on an empty stomach Orally Twice a day for 30 day(s) Not-Taking Tresiba FlexTouch 200 UNIT/ML as directed Subcutaneous Not-Taking Tradjenta Active Celecoxib 200 MG (Prior Auth: Rx Ref#:[id number]) Oral for 30 Not-Taking Tresiba Active DULoxetine HCl 60 MG (Prior Auth: Rx Ref#:[id number]) Oral for 30 Not-Taking NovoLOG Active Enalapril Maleate 10 MG (Prior Auth: Rx Ref#:[id number]) Oral for 90 Not-Taking Acetaminophen Extra Strength 500 MG (Prior Auth: Rx Ref#:[id number]) Oral for 13 Active Gabapentin 400 MG (Prior Auth: Rx Ref#:[id number]) Oral for 90 Not-Taking Albuterol Sulfate (2.5 MG/3ML) 0.083% (Prior Auth: Rx Ref#:[id number]) Inhalation for 10 Active Ferrous Sulfate 325 (65 Fe) MG 1 tablet Orally Once a day for 30 day(s) Not-Taking Capsaicin 0.025 % 1 application to affected area as needed Externally Three times a day Active Fluticasone Furoate 200 MCG/ACT 1 puff Inhalation Once a day Active hydroCHLOROthiazide 12.5 MG (Prior Auth: Rx Ref#:[id number]) Oral for 30 Active Polyethylene Glycol 3350 - as directed Active Flunisolide 25 MCG/ACT (0.025%) (Prior Auth: Rx Ref#:[id number]) Nasal for 25 Active Extra Depth Orthopedic Shoes (1 Pair) with Customized Heat Molded Multidensity Innersoles (3 Pair) as directed Dx: IDDM/Polyneuropathy (E10.42), Hammertoe Foot Deformity (M20.41,M20.42), Preulcerative Skin Lesion(s) (L85.1) 01/12/2023 Active Loratadine 10 MG (Prior Auth: Rx Ref#:[id number]) Oral for 90 Active Montelukast Sodium 10 MG (Prior Auth: Rx Ref#:[id number]) Oral for 30 Active oxyCODONE HCl 5 MG (Schedule II Drug) (Prior Auth: Rx Ref#:[id number]) Oral for 28 Active Pantoprazole Sodium 40 MG (Prior Auth: R x Ref#:[id number]) Oral for 30 Active Pravastatin Sodium 10 MG (Prior Auth: Rx Ref#:[id number]) Oral for 30 Active Aspirin Low Dose 81 MG (Prior Auth: Rx Ref#:[id number]) Oral for 90 Not-Taking Citracal + D Not-Morgan ing Fluconazole 200 MG 1 tablet Orally Once a day for 10 day(s) Not-Taking IMMUNIZATIONS Vaccine Route Administration Date Status Comme nts Influenza Unknown 01/22/2018 Administered Influenza Unknown 01/15/2019 Administered SOCIAL HISTORY Tobacco Use: Social History Observation Description Date Details (start date - stop date) Never Smoker NA - NA Sex Assigned At : Social History Observation Description Sex Assigned At Unknown Tobacco Use/Smoking Question Answer Notes Are you a: nonsmoker Additional Findings: Tobacco Non-User Current no n-smoker Alcohol Screen Question Answer Notes Did you have a drink containing alcohol in the p ast year? No Points 0 Interpretation Negative Tobacco use other than smoking: Question Answer Notes Are you an other tobacco user? No PROBLEMS Problem Type ICD Code Onset Dates Problem Status W/U Status Risk SNOMED Code Notes Problem Other hammer toe(s) (acquired), right foot (M20.41) Active confirmed Acquired hamme r toe of right foot (4745479016750120 ) Problem Other hammer toe(s) (acquired), left foot (M20.42) Active confirmed Acquired hamme r toe of left foot (9598662438595686 ) Problem Type 1 diabetes mellitus with diabetic polyneuropathy (E10.42) Active confirmed Polyneuropathy due to diabetes mellitus type I (502529388) VITAL SIGNS Height 5 ft 3 in in 01/12/2023 Weight 162 lbs 01/12/2023 BMI 28.69 kg/m2 01/12/2023 PROCEDURES Procedure Date Ordered Date Performed Result Body Sit e 42175-TWYYRSQ NAIL, 6 OR MORE 01/12/2023 N/A 64774-MKMD SKIN LESIONS, OVER 4 01/12/2023 N/A Encounters Encounter Location Date Provider Diagnosis [facility] [address] [address] 01/12/2023 Miguel A Layne Type 1 diabetes mellitus with diabetic polyneuropathy E10.42 ; Onychomycosis B35.1 ; Other hammer toe(s) (acquired), right foot M20.41 and Other hammer toe(s) (acquired), left foot M20.42 ASSESSMENTS Encounter Date Diagnosis Assessment Notes Treatment Notes Treatment Clinical Notes 01/12/2023 Type 1 diabetes mellitus with diabetic polyneuropathy (ICD-10 - E10.42) 01/12/2023 Onychomycosis (ICD-1 0 - B35.1) 01/12/2023 Other hammer toe(s) (acquired), right foot (ICD-10 - M20.41) Patient Educated with: DIABETIC FOOT CARE INSTRUCTIONS.pdf (DIABETIC FOOT CARE INSTRUCTIONS.pdf ) 01/12/2023 Other hammer toe(s) (acquired), left foot (ICD-10 - M20.42) PLAN OF TREATMENT Pending Test Test Name Order Date X ray : Foot, left 3V 12/18/2018 X ray : Foot, right 3V 12/18/2018 21801-SURHUDY NAIL, 6 OR MORE 01/12/2023 56030-NBWMKFJ NAIL, 6 OR MORE 11/10/2021 04505-KWTH SKIN LESIONS, OVER 4 11/11/19 65984-QMEV SKIN LESIONS, OVER 4 03/26/20 27789-MGIQ SKIN LESIONS, OVER 4 09/09/19 21 61857-KPRH SKIN LESIONS, OVER 4 06/12/19 22 40212-JBUD SKIN LESIONS, OVER 4 01/13/20 23 63113-ZGWV SKIN LESIONS, OVER 4 09/19/19 19 77969-IIIP SKIN LESIONS, OVER 4 12/19/19 Insurance Providers Payer Name Payer Address Payer Phone Subscriber Number Group Number Insured Name Patient Relationship to Insured Coverage Start Date Coverage End Date [facility] [employer] Claims [address] [place] [id number] [phone] [id number] Leonie Corea Self - patient is the insured MEDICAL (GENERAL) HISTORY Medical History History ICD Code Anemia Anxiety Arthritis asthma Back,Hip,and Knee pain CAD (Cholesterol) Cataracts Depression Diabetic Epilepsy Fibromyalgia Gall bladder removed Glaucoma Gout Headaches/Migraines Hepatitis C, cured High blood pressure Menieres disease Numbness Poor circulation Sciatica chronic sinusitis thyroid Warts Pulmonary embolism, cured blood clots, cured Surgical History Surgery Date(Month/Year) gall bladder 1974 uterus surgery 1974 parathyroidectomy 2004 kidney stones 2009 [facility]
== END 2023-10-23 09:57 | disposition home or self-care (01) ==
LOC: HO.PMC 09:33
PROVIDERS: PCP Physician Assistant; Referring Provider Hospitalist; Visit Provider Internal Medicine
DX: M54.12 Radiculopathy, cervical region (principal)
CPT/HCPCS: 99203

== ENCOUNTER → 2023-10-23 09:33 | Outpatient (BNVA) | payer OTHER, SELFPAY | PROVIDERS: PCP Physician Assistant; Referring Provider Hospitalist; Visit Provider Internal Medicine | DX: M54.12 Radiculopathy, cervical region (principal) | CPT/HCPCS: 99202 ==

== ENCOUNTER → 2023-12-27 08:40 | Outpatient (BNV) | payer OTHER, SELFPAY | PROVIDERS: PCP Physician Assistant; Visit Provider Radiology Diagnostic Radiology | DX: M54.12 Radiculopathy, cervical region (principal) | CPT/HCPCS: 72141 ==

== ENCOUNTER 2023-12-27 08:43 | Outpatient (REF) | payer OTHER, SELFPAY ==
--- NOTE | ~2023-12-27 | MR_ITS ---
EXAMINATION: MR CERVICAL SPINE WITHOUT CONTRAST CLINICAL INFORMATION: Neck pain. Upper extremity pain, bilaterally. COMPARISON: None available. TECHNIQUE: MRI of the cervical spine was obtained using routine sequences without contrast. FINDINGS: Exams has been submitted for interpretation on 02/06/2024 Craniocervical junction is intact. No bone marrow STIR signal abnormality. Multilevel marginal osteophyte formation and disc desiccation. Kyphotic deformity apex at C5-6. Grade 1 anterolisthesis, C3-4 and C7-T1. Grade 1 retrolisthesis, C6-7. Focal hyperintense T2 STIR cord signal abnormality at C3-4 and questionable at C7. C2-3: No cord compression. No neuroforamina stenosis. C3-4: Grade 1 anterolisthesis. On color disc. Ligamentum flavum hypertrophy, bilaterally. Decreased AP diameter of the thecal sac and CSF effacement with compression deformity of the cord/flattening and focal hyperintense T2 cord signal. Bilateral neuroforamina narrowing on a degenerative basis. C4-5: Broad-based disc osteophyte complex formation. Facet joint and ligamentum flavum hypertrophy resulting in central spinal canal stenosis and cord deformity/flattening. CSF effacement of the thecal sac. Left neural foramina narrowing on a degenerative basis. C5-6: Broad-based disc osteophyte complex formation resulting in flattening cord and CSF effacement of the thecal sac. Ligamentum flavum hypertrophy, bilaterally. Reduced AP diameter of the central spinal canal/thecal sac. Bilateral neuroforamina narrowing. C6-7: Broad-based disc osteophyte complex formation resulting in ventral deformity of the spinal cord. Facet joint and ligamentum flavum hypertrophy. Reduced AP diameter of the thecal sac. Bilateral neuroforamina narrowing. Questionable hyperintense T2 star cord signal in the dorsal cord. C7-T1: Broad-based disc osteophyte complex formation. Facet joint and ligamentum flavum hypertrophy. Reduced AP diameter of the thecal sac. Questionable cord signal abnormality. Bilateral neuroforamina narrowing on a degenerative basis. No prevertebral compartment hematoma, mass or fluid collection. Flow-void signal within the mean vessels is normal. Codominant vertebral arteries. Multifocal hyperintense T2 STIR signal abnormality within the brainstem. MR/MR cervical spine wo con IMPRESSION: Multilevel cervical spondylosis, Lander deformity resulting in cord compression from C3-4 to C7-T1 and likely myelopathy and/or edema at C3-4 and C6-7. Small vessel occlusive disease, brainstem. . Electronically signed by: Patrick Loyola MD 02/06/2024 08:44 AM EDT
== END 2023-12-27 08:44 | disposition home or self-care (01) ==
LOC: HO.MRI 08:43
PROVIDERS: PCP Physician Assistant; Visit Provider Internal Medicine
DX: M54.12 Radiculopathy, cervical region (principal)
CPT/HCPCS: 72141

== ENCOUNTER 2024-02-12 08:56 | Outpatient (AMB) | payer OTHER, SELFPAY ==
--- NOTE | 2024-02-12 09:20 | A.SPINEOV_ITS ---
Intake Visit Reasons: Neck pain Intake Note: Ms. Corea is here today c/o neck pain. Communications Senior Associate Required: Yes Communications Senior Associate Services: Communications Senior Associate Present Allergies lidocaine [From LIDODERM] Allergy (Severe, Verified 10/23/23 09:38) BLISTERS Penicillins [PENICILLINS] Allergy (Severe, Verified 10/23/23 09:38) SWELLING/ITCHING gabapentin [GABAPENTIN] Allergy (Intermediate, Verified 10/23/23 09:38) SORES IN MOUTH- AGITATION morphine [MORPHINE] Allergy (Intermediate, Verified 10/23/23 09:38) PER H&P Ampicillin Allergy (Intermediate, Uncoded 10/23/23 09:38) Rash and Hives Assessment & Plan Assessment & Plan (1) Cervical radiculopathy: Code(s): M54.12 - Radiculopathy, cervical region Category: Medical (2) Cervical myelopathy: Code(s): G95.9 - Disease of spinal cord, unspecified Category: Medical Plan Dear Dr Randle, Thank you for referring Mrs Corea to our office today. This is a very nice 78-year-old female who presents to the office today for evaluation of neck pain that is in the posterior part of her cervical spine radiating up to the back of her head with feelings of tingling and numbness going down to arms and her hands. She drops things from time to time. Through the years this pain has steadily gotten worse. She has undergone physical therapy, medication trials including Tylenol and [id number] anti-inflammatories. She can no longer take these cause more recently she is on Eliquis and she has chronic kidney disease. She had a chiropractic manipulation a few years ago where they did some sudden jerking of her head and that made it particularly worse. An MRI done in your office showed that she had a spondylolisthesis at C3-4 amongst other multilevel degenerative changes with severe stenosis at C3-4 and cord signal change. She was sent today to see us for an evaluation. PMH: She is diabetic, her daughter tells me that her last A1c was 8.5. She is on a regimen of Lantus and NovoLog to manage this. Her diet is not always the best. She has history of hypertension, DVT with a PE. 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 She is followed by Dr. Berkowitz here at [facility]. History of depression, anxiety, chronic kidney disease stage 3, high cholesterol, partial hysterectomy, gallbladder, parathyroidectomy done for elevated calcium levels that were giving her kidney stones. After the parathyroidectomy, the kidney stones went away. Denies any history of heart attack, stroke, COPD, cancer, major abdominal surgery. Social hx: She does not smoke, drink use any recreational drugs Medications: BuSpar, tizanidine, Nexium, isosorbide, iron sulfate, amlodipine, Eliquis, Lipitor, NovoLog, Lantus, oxycodone, acetaminophen, Zofran, senna, Singulair and Tresiba Allergies: Lidocaine, penicillin, gabapentin, morphine and ampicillin Physical exam: Awake alert oriented no acute distress, she is slow to get up on the examining table, she has bilateral hand weakness 4/5 in bilateral iliopsoas weakness 4/5. Reflexes are 2+ and symmetric in the upper extremities, she has clonus in her left ankle. Patellar reflexes are 1+. Imaging review: Cervical MRI done at [facility] reveals multilevel degenerative disc disease, at C3-4 there is an anterior listhesis with posterior disc bulging causing severe spinal cord compression with cord signal change within the cord itself. She also has multilevel degenerative disc disease and bulging at C4-5, C5-6 and C6-7. I do not see any degree of severe stenosis at in any of these levels. Impression: 78-year-old diabetic female, on Eliquis for a DVT/PE, presents with posterior neck pain that is been going on for years with progressive myelopathic symptoms of tingling and numbness going down to arms and hands with weakness. Although she does not have overt hyperreflexia, this is likely secondary to her diabetes which we know can mask myelopathic reflexes. Given the severe compression in the cord signal change seen on her MRI at C3-4, I am going to review her MRI with Dr. Fernando and put her on urgently for surgery. I have tentatively booked her for March 05. Because of the spondylolisthesis at C3-4 I will obtain flexion-extension x-rays. I will also contact Dr. Berkowitz who is her dipping machine operator to see if he thinks we need an IVC filter for her or we can just discontinue her Eliquis for 3 days before surgery and resume at 3 days afterwards. Once I have the final plan with Dr. Fernando, I will call the patient's daughter and update her. I did explain to her that myelopathic symptoms can be permanent especially when seen in conjunction with T2 cord signal change and that the ultimate goal of surgery would be to prevent her from getting worse. Pt was given risk and benefits of surgery including but not limited to infection, hematoma , nerve injury,durotomy, weakness,bowel/bladder injury, persistent pain, vocal hoarseness and dysphagia as well as the option to continue with conservative treatment and patient wishes to proceed with surgery. Pt is aware they should stop their Eliquis 3 days prior to surgery. All questions were answered to the best of our ability. If there is anything about this patients medical history that we have overlooked or concerns you have about us proceeding with surgery we would appreciate any input you can offer. Thank you for allowing us to care for your patient. The total time spent with this visit with this patient was 45 minutes reviewing history, physical exam, cervical MRI imaging review, and implementation of treatment plan or further diagnostic testing Octaviano Fernando MD,PhD [facility] Orders: Orders XR cervical spine 4V Today M54.12 - Radiculopathy, cervical region Coding Level of Care Code New Pt Level 4 (77027) Diagnoses Cervical radiculopathy M54.12 Cervical myelopathy G95.9
== END 2024-02-12 11:43 | disposition home or self-care (01) ==
LOC: HO.HNS 08:57
PROVIDERS: PCP Physician Assistant; Referring Provider Internal Medicine; Visit Provider Physician Assistant
DX: M54.12 Radiculopathy, cervical region (principal); G95.9 Disease of spinal cord, unspecified
CPT/HCPCS: 99204

== ENCOUNTER 2024-02-12 08:56 | Outpatient (REF) | payer OTHER, SELFPAY | END 2024-02-12 08:57 | disposition home or self-care (01) | LOC: HO.HOSX 08:56 | PROVIDERS: PCP Physician Assistant; Referring Provider Internal Medicine; Visit Provider Physician Assistant | DX: M54.12 Radiculopathy, cervical region (principal); G95.9 Disease of spinal cord, unspecified; E11.9 Type 2 diabetes mellitus without complications; Z79.4 Long term (current) use of insulin; Z86.718 Personal history of other venous thrombosis and embolism; Z79.01 Long term (current) use of anticoagulants | CPT/HCPCS: 72050; 99202 ==

== ENCOUNTER 2024-03-04 12:50 | Outpatient (AMB) | payer OTHER, SELFPAY ==
[2024-03-04 13:02] VITALS: BP 120/58; PULSE 63; O2SAT 98; BMI 27.1
--- NOTE | 2024-03-04 13:02 | A.OFFVIS_ITS ---
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: No Allergies bee pollen [bee stings] Allergy (Severe, Verified 03/04/24 13:05) Anaphylaxis lidocaine [From LIDODERM] Allergy (Severe, Verified 03/04/24 13:05) BLISTERS from adhesive morphine [MORPHINE] Allergy (Severe, Verified 03/04/24 13:05) PO will cause itching, can tolerate IV Penicillins [PENICILLINS] Allergy (Severe, Verified 03/04/24 13:05) SWELLING/ITCHING gabapentin [GABAPENTIN] Allergy (Intermediate, Verified 03/04/24 13:05) SORES IN MOUTH- AGITATION enalapril Adverse Reaction (Severe, Verified 03/04/24 13:05) hyperkalemia Ampicillin Allergy (Intermediate, Uncoded 03/04/24 13:05) Rash and Hives HPI Comments Details: The patient is a 78 year-old woman with a known history of pulmonary emboli with the family history. In addition to that she has a history of sleep apnea and asthma COPD overlap syndrome. Since we last spoke the patient has been complaining of multiple complaints. She does have leg swelling and pain. Mainly her left leg. 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 This is done at [facility]. Her D-dimer was elevated at the time. We did review her CT scan of the chest that demonstrated extensive blood clot with submassive PE due to the RV strain. She had been treated in [place] for that and did complete a course of Coumadin. She has no longer on any anticoagulation. She has been complaining worsening shortness of breath and chest pain. This discomfort is substernal in his about 4-10 in severity. Denies any radiation. Some respite phasic component. At this point is better. She did need to have an urgent CTA to rule out pulmonary emboli. The reading was that she did have sub subsegmental pulmonary emboli. I did look at the scan myself and I do think she had bilateral subsegmental pulmonary emboli. That night she was started on Eliquis. She has been tolerating the Eliquis without any side effects. Although she feels a little pale today feels like she could be anemic. We did review her blood work from the last visit demonstrating normal SABINO and normal CCP. Although her D-dimer was elevated does have she ended up with her CT scan of the chest. Her potassium was also elevated at the time. The patient has had multiple blood clots as well and now also positive family history with other extended family members. Therefore, is not a reasonable to at least check her prothrombin mutation and factor 5 Leiden. Her hemoglobin was down to about 9 from 12. She denies any active bleeding GI bleeding or any black stools. I am concerned because she is taking the blood thinner. She is scheduled for an upper and lower endoscopy. 05/27/2020 the patient is here for pulmonary follow-up visit. Overall she is doing lot better. She has recovered very well from the COVID infection that she had. Her last CT scan of the chest from March demonstrated some ground-glass opacities likely residual from her COVID infection. She continues on the Eliquis and seems to be tolerating the anticoagulation well. Denies any evidence of any recurrent clots. The patient was ambulated with a 6 minutes walk test and she maintain a pulse ox between 98%-99%. Heart rate also states stable within 80s to 90s. Her Brant score was lower on 05/20. Patient did very well walking with her cane. However, she has been very dizzy lately and she has had episodes of near falls. She needs to be very careful with her balance and always using her assistive device. The patient has struggled to use his CPAP. The CPAP therapy has been very difficult. Therefore, the patient will talk to her [employer] about returning it. The patient will continue using oxygen at nighttime at 2 L. 12/28/2021 the patient is here for a pulmonary follow-up visit. Overall the patient seems to be doing relatively well from a respiratory status. She still complains of the substernal chest discomfort. She does respond well to nitroglycerin. She did follow-up with cardiology sometime in early December. Did describe the chest discomfort as a typical. She had a full cardiac workup without any evidence of any at the heart disease. The patient has complaining about bruising. She has been on Eliquis and also on Plavix. She has not noticed any hematuria or any issues with blood in the stool. A 1 point she did have significant anemia. the patient is concerned about the use of Plavix. I did look at the cardiology notes and was no mention of the use of Plavix. Therefore, I did tell the patient to hold the Plavix until she speaks to her primary care doctor to clarify if he does need to be on this medication. Med because concerns for risk of bleeding since she has had issues with anemia in the past. The patient has been having some reflux symptoms. I did send her additional Maalox in case her chest discomfort is related to esophageal spasms she is responding well to the Trelegy inhaler. She has not had to use his rescue inhaler and she has not required any prednisone. She continues use the oxygen with sleep. This has been affecting beneficial and she will continue for now. 04/12/2022 the patient has a telephone visit today. The daughter had called initially that the patient was feeling short of breath and also dizzy. She noted that her pulse ox was significantly low Around 60%. She also has a blood pressure cuff at home and she noted that her blood pressure was low with a systolic blood pressure in the 80s. However, the patient has been reluctant to go to the hospital. The patient states that the last time she went to the hospital she was waiting in the hallway and she is very uncomfortable. Recently she was diagnosed with UTI and was placed on antibiotics. She was also found to have kidney stones and she had to postpone the procedure due to her new symptoms. Based on the fact the patient hypoxic the daughter had called. We gave her telephone visit today. I did speak to the patient. She feels very drowsy and tired. Explained to the patient that is really important for her to go to the hospital and she is agreeable at this time. I did look at the blood work that she had at [facility]. Initially UTI demonstrated a Staph infection. I am concerned that she could be developing sepsis and therefore developing worsening respiratory failure in view of the sepsis. Therefore, be critical that she is evaluated in the ER. The daughter will take her to the hospital at this time. 05/13/2022 the patient is here for a pulmonary follow-up visit. The patient recently was discharged from the hospital. She was found to have kidney stones. Initially, she was admitted at [facility] and she was found to have kidney stones and hypotension. And she ended up admitted at [facility]. She had a repeat CT scan of the abdomen per report demonstrating resolution of the kidney stone. The patient is having significant discomfort of her right leg. This is causing significant discomfort. She has been taking Tylenol. She has to be careful with her cirrhosis. She continues use the oxygen at nighttime. she uses 2 L at nighttime. This has been affecting beneficial. The patient is to continue the oxygen at this time. 05/04/2023 the patient is here for a pulmonary follow-up visit. The patient overall has been feeling well from a respiratory status. Continues on the Eliquis 5 mg twice a day. The family is contemplating decreasing the medication to 2.5 twice a day. I believe this is reasonable request specially since her last CTA back in April 2022 did not demonstrate any evidence of any persistent clot. She does have some lower extremity discomfort to therefore will do a lower extremity Dopplers to make sure that she does not have any clot burden. And if is negative then we can see about decreasing the dose. In the meantime the patient also has issues with headaches in the morning. She was on oxygen at nighttime which she has no longer using it. Therefore, will go ahead and request an overnight oximetry to see if which is set her up with nocturnal oxygen at this time. She may still have some supplies left over from when she had [facility] respiratory. 09/01/2023 the patient is here for a pulmonary follow-up visit. The radha nt is doing okay from a respiratory status. She continues on the Trelegy inhaler with good effect. She does have a rescue inhaler but does not required often. The patient also has been taking her Eliquis for her history of thromboembolic disease. This be a lifelong therapy. Denies any minor major bleeding. She will continue the therapy for now. Her major issues her neck pain. She did go to a chiropractor the cost even worsening pain. She does take Motrin as needed does help her. She has been following closely with pain specialist elsewhere. But at this point they could not offer her anything else. Therefore, will go ahead and making a referral to the pain clinic here at the [facility]. The patient will continue current respiratory therapy will follow-up in 6 months. 03/04/2024 the patient is here for a pulmonary follow-up visit. Overall she is doing well from a respiratory status. She is still having severe neck pain. She was referred to pain and then subsequently referred to spine surgery. She is scheduled to undergo spine surgery tomorrow. She is off the Eliquis which we prefer 3 days and then she can restart the Eliquis after she recovers and she is able to start soon as surgery. The patient is ready for respiratory status her respiratory exam is normal and is reassuring. Therefore I do not have any limitations at this time. The patient may be able to proceed with surgery at this time. After she recovers from her surgery we did talk about her vaccines and since she is due for a few vaccines. I did this them out for her. The patient follow-up in 6-8 months. If she has any issues prior to that she will call for an earlier assessment. 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 Left ventricular hypertrophy HTN (hypertension) Hyperlipidemia Hx pulmonary embolism Epigastric pain Early onset Alzheimer dementia Incontinence of urine Dysphasia Diastolic dysfunction Type 2 diabetes mellitus with diabetic peripheral angiopathy without gangrene, with long-term current use of insulin Hx of deep venous thrombosis CKD (chronic kidney disease) stage 3, GFR 30-59 ml/min Cervical facet syndrome Cataract Kidney stone Calcium oxalate crystals present in urine Asthma-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 Depression Anemia Allergic rhinitis Hyperparathyroidism Osteoarthritis Fibromyalgia Hx of renal calculi Hx of seizure disorder Diabetes Cirrhosis GERD (gastroesophageal reflux disease) Nausea Dementia Anxiety RLS (restless legs syndrome) Peripheral venous insufficiency Osteopenia Esophageal varices Gastritis Mitral regurgitation Tricuspid regurgitation Hx of hepatitis C (~2008) Chronic anticoagulation Back pain AVM (arteriovenous malformation) of colon History of anemia Leg pain Chest pain Pleuritis JENNIFER (obstructive sleep apnea) Abnormal chest x-ray Pneumonia COVID-19 (~12/2019) Pulmonary emboli COPD (chronic obstructive pulmonary disease) Surgical History (Updated 02/27/24 @ 09:50 by Carmelina Grayson RN) Hx of lithotripsy Hx of colonoscopy (12/11/19) History of esophagogastroduodenoscopy (EGD) (12/11/19) Hx of hysterectomy (~1974) Hx of parathyroidectomy (~2008) Hx of cholecystectomy (~1975) Hx of cataract extraction Social History Are you a primary home care giver to a significant other at home: No Do you presently have visiting nurse or other home services: Yes (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[employer]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[employer] 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 a 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) Patient Tobacco Use Status: Never used Tobacco Review of Systems Const Reports headache(s), Reports lethargy and Denies night sweats ENT Denies change in voice, Reports dizziness, Reports headache(s), Denies lip swelling, Denies mouth pain, Reports nasal congestion, Reports nasal discharge, Reports neck pain and Denies tongue swelling Card Denies chest pain, Denies dyspnea and Reports dyspnea on exertion Resp Reports cough, Denies dyspnea and Reports dyspnea on exertion GI Reports abdominal pain, Reports constipation and Reports GI cramping Reports as per HPI Musc Reports back pain, Reports limited range of motion, Reports muscle cramps, Reports neck pain and Reports radiating pain into limb Neuro Denies Neuro-related abnormal movements, Reports dizziness and Reports headache(s) Psych Denies no additional complaints Sebastian/Lymph Reports easy bleeding, Reports easy bruising and Denies lymphadenopathy Aller/Immun Denies lip swelling and Denies tongue swelling Physical Exam Vital Signs: Last Vital Signs Pulse 63 03/04/24 13:02 BP 120/58 L 03/04/24 13:02 Pulse Ox 98 03/04/24 13:02 Oxygen Delivery Method Room Air 03/04/24 13:02 BMI result Body Mass Index 27.1 Const General: alert HEENT Head: Yes normocephalic Neck Neck: Yes normal visual inspection, Yes full ROM and Yes no lymphadenopathy Chest Chest palpation & inspection: normal inspection of the chest, no localized rib tenderness and no tenderness Resp Effort & Inspection: normal respiratory effort Auscultation: no crackles, no rales, no rhonchi, no wheezes and diminished lung sounds Cardio Rate: regular rate Rhythm: regular rhythm Heart sounds: S1 normal heart sound present and S2 normal heart sound present GI Palpation (GI): Soft to palpation and nontender Auscultation: normal bowel sounds Skin General skin exam: no rashes or lesions noted Extrem General: Yes no clubbing, cyanosis or edema Assessment & Plan Assessment & Plan (1) COPD (chronic obstructive pulmonary disease): Code(s): J44.9 - Chronic obstructive pulmonary disease, unspecified Category: Medical Qualifiers: COPD type: chronic bronchitis Chronic bronchitis type: simple Qualified Code(s): J41.0 - Simple chronic bronchitis (2) Pulmonary emboli: Comment: fdc anticoagulation Code(s): I26.99 - Other pulmonary embolism without acute cor pulmonale Category: Medical Qualifiers: Acute cor pulmonale presence: without acute cor pulmonale Chronicity: chronic Pulmonary embolism type: unspecified Qualified Code(s): I27.82 - Chronic pulmonary embolism (3) Neck pain: Code(s): M54.2 - Cervicalgia Category: Medical Plan Continue Trelegy inhaler daily SONYA as needed Continue singular Continue Eliquis for unprovoked clots after surgery singulair spine surgery Follow-up 6-8 months Coding Level of Care Code Est Pt Level 4 (27749) Diagnoses Simple chronic bronchitis J41.0 COPD type: chronic bronchitis Chronic bronchitis type: simple Chronic pulmonary embolism without acute cor pulmonale, unspecified pulmonary embolism type I27.82 Acute cor pulmonale presence: without acute cor pulmonale Chronicity: chronic Pulmonary embolism type: unspecified Neck pain M54.2 Time Spent (min) 16
== END 2024-03-04 13:23 | disposition home or self-care (01) ==
PROVIDERS: PCP Physician Assistant; Visit Provider Hospitalist
DX: J41.0 Simple chronic bronchitis (principal); I27.82 Chronic pulmonary embolism; M54.2 Cervicalgia
CPT/HCPCS: 99214

== ENCOUNTER → 2024-03-04 12:50 | Outpatient (BNVA) | payer OTHER, SELFPAY | PROVIDERS: PCP Physician Assistant; Visit Provider Hospitalist | DX: J41.0 Simple chronic bronchitis (principal); I27.82 Chronic pulmonary embolism; M54.2 Cervicalgia | CPT/HCPCS: 99212 ==

== ENCOUNTER 2024-03-05 06:48 | Day surgery (SDC) | payer OTHER, SELFPAY ==
[2024-02-26 12:12] VITALS: BP 125/60; PULSE 72; RESP 16; O2SAT 98; BMI 26.2
[2024-02-26 14:06] LABS: Hematocrit 38.7 % (37.0-47.0); Hemoglobin 12.6 g/dl (12.0-16.0); Mean Corpuscular HGB Conc 32.6 g/dl (31.0-35.0); Mean Corpuscular Hemoglobin 28.6 pg (27.0-33.0); Mean Corpuscular Volume 87.8 fL (80.0-98.0); Mean Platelet Volume 11.4 fL (9.4-12.3); Platelet Count 170 X10*3/uL (160-400); Red Blood Count 4.41 X10*6/uL (4.20-5.50); Red Cell Distribution Width 13.8 % (11.0-16.0); White Blood Count 4.6 X10*3/uL (4.8-10.8)
[2024-02-26 14:13] LABS: INTERNATIONAL NORM RATIO 1.6 (0.9-1.1); Prothrombin Time 19.1 SEC (10.9-12.4)
[2024-02-26 14:49] LABS: Alanine Aminotransferase 20 U/L (0-31); Alkaline Phosphatase 109 U/L (39-117); Anion Gap 9 (12-20); Aspartate Amino Transferase 28 U/L (5-31); Bilirubin Total 0.4 mg/dL (0.0-1.0); Blood Urea Nitrogen 14 mg/dL (9-16); Calcium 9.3 mg/dL (8.4-10.2); Carbon Dioxide 28 mmol/L (22-29); Chloride 106 mmol/L (96-108); Estimated Glomerular Filt Rate 51; Potassium 3.8 mmol/L (3.3-5.1); Sodium 139 mmol/L (135-145); Total Protein 6.8 g/dL (6.5-8.0)
[2024-02-26 15:09] LABS: Glucose Random 373 mg/dL (60-115)
[2024-02-27 09:39] LABS: Estimated Average Glucose 197 mg/dL; Hemoglobin A1C 227.0015 umol/L; Hemoglobin A1c % 8.5 % (<6.0); Total Hemoglobin (HGBA1C) 3267.4659 umol/L
[2024-03-05] VITALS (9 sets, daily range): BP systolic 115–123; BP diastolic 54–64; PULSE 66–84; RESP 16–20; TEMP 36.2–36.5; O2SAT 98; BMI 27.1
--- NOTE | ~2024-03-05 | FL_ITS ---
EXAMINATION: FLUORO GUIDANCE IN OR CLINICAL INFORMATION: C3-C4 ACDF. COMPARISON: None available. TECHNIQUE: Fluoroscopy supervised by: Miguel Fernando MD. Fluoroscopy time: 0.0 minutes. Cumulative Dose: 1.04 mGy. DAP: 0.257 Gy-cm2 (mcguire-centimeter squared). Images: 2. FINDINGS: ACDF hardware is noted at C3-C4. FL/FL guidance in OR IMPRESSION: Fluoroscopy during procedure. Please see procedure report for additional information. Electronically signed by: Godfrey Kwok MD 05/08/2024 02:11 PM RASHAD
--- NOTE | 2024-03-05 07:21 | PC.NURSE ---
Patients daughter at bedside in preop. Fior Giles [phone]. Fior is patients HCP per patient.
[2024-03-05 07:28] LABS: Prothrombin Time 12.1 SEC (10.9-12.4)
[2024-03-05 07:42] LABS: Glucose, Whole Blood 211 mg/dL (60-115)
[2024-03-05] MEDS: methocarbamoL 750 MG TABLET PO (07:45)
[2024-03-05] MEDS: Lactated Ringers 1,000 ML 100 ML IVCONT (07:55)
[2024-03-05] MEDS: vancomycin HCL 1,000 MG in 0.9 % Sodium Chloride 250 ML 270 MG IV (07:55)
--- NOTE | 2024-03-05 08:05 | HO.ANESPROP2 ---
Documented by User: Odessa Colon NP 02/26/24 13:15 HPI - Anesthesia Eval Consult details Narrative: 78yo F for C3-4 Ant Cerv Discectomy w/ fusion No recent illness No CP/SOB with minimal activity. Sometimes does seated bicycle COPD: Follows with [facility] [place] Pulmo. Stable. Rare albuterol. Varices: Follows GI - [place], but now [facility]??? JENNIFER: No CPAP, has had significant weight loss since sleep study Hx PE: Eliquis, ok to hold per pulmo. No need for IVC Filter Gastritis: ppi and H2 rey PMFSH Active Problems Active Problems: All Active Problems Cervical myelopathy (Acute) Cervical radiculopathy (Acute) Neck pain (Acute) Hypotension (Acute) Acute and chronic respiratory failure (Acute) Leg pain (Acute) Chest pain (Acute) Pleuritis (Acute) JENNIFER (obstructive sleep apnea) (Acute) Abnormal chest x-ray (Acute) Pneumonia (Acute) COVID-19 (Acute ~12/2019) Pulmonary emboli (Acute) COPD (chronic obstructive pulmonary disease) (Acute) Past Medical History Medical History (Updated 03/04/24 @ 20:15 by Michael Berkowitz MD) Seizure disorder Seizure disorder Sciatica Right ventricular dilation Pulmonary HTN Insomnia Positive PPD, treated Myofascial muscle pain Meniere disease Memory impairment USP current use of anticoagulant therapy Left ventricular hypertrophy HTN (hypertension) Hyperlipidemia Hx pulmonary embolism Epigastric pain Early onset Alzheimer dementia Incontinence of urine Dysphasia Diastolic dysfunction Type 2 diabetes mellitus with diabetic peripheral angiopathy without gangrene, with long-term current use of insulin Hx of deep venous thrombosis CKD (chronic kidney disease) stage 3, GFR 30-59 ml/min Cervical facet syndrome Cataract Kidney stone Calcium oxalate crystals present in urine Asthma-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 Depression Anemia Allergic rhinitis Hyperparathyroidism Osteoarthritis Fibromyalgia Hx of renal calculi Hx of seizure disorder Diabetes Cirrhosis GERD (gastroesophageal reflux disease) Nausea Dementia Anxiety RLS (restless legs syndrome) Peripheral venous insufficiency Osteopenia Esophageal varices Gastritis Mitral regurgitation Tricuspid regurgitation Hx of hepatitis C (~2008) Chronic anticoagulation Back pain AVM (arteriovenous malformation) of colon History of anemia Leg pain Chest pain Pleuritis JENNIFER (obstructive sleep apnea) Abnormal chest x-ray Pneumonia COVID-19 (~12/2019) Pulmonary emboli COPD (chronic obstructive pulmonary disease) Surgical History Surgical History Hx of lithotripsy Hx of colonoscopy (12/11/19) History of esophagogastroduodenoscopy (EGD) (12/11/19) Hx of hysterectomy (~1974) Hx of parathyroidectomy (~2008) Hx of cholecystectomy (~1975) Hx of cataract extraction Social History Social History Are you a primary day care worker to a significant other at home: No Do you presently have visiting nurse or other home services: 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 If so, by whom?: No Are you DNR?: No Advance Directives: No Advance Directives Information Provided: Yes Advance Directives on File: No Recently lost weight without trying: Yes How much weight loss: 34pounds or more Eating poorly because of decreased appetite: Yes Nutrition screen score: 7 Nutrition Risks: Surgical patient >75years Meds Allergies Allergy/AdvReac Type Severity Reaction Status Date / Time bee pollen [bee stings] Allergy Severe Anaphylaxis Verified 03/05/24 07:14 lidocaine [From LIDODERM] Allergy Severe BLISTERS Verified 03/05/24 07:14 from adhesive morphine [MORPHINE] Allergy Severe PO will Verified 03/05/24 07:14 cause itching, can tolerate IV Penicillins [PENICILLINS] Allergy Severe SWELLING/IT Verified 03/05/24 07:14 XIAO gabapentin [GABAPENTIN] Allergy Intermediate SORES IN Verified 03/05/24 07:14 MOUTH- AGITATION enalapril AdvReac Severe hyperkalemi Verified 03/05/24 07:14 a Ampicillin Allergy Intermediate Rash and Uncoded 03/05/24 07:14 Hives Home Medications ?Medication ?Instructions ?Recorded ?Confirmed ?Last Taken ?Type glucose 4 gram chewable tablet 4 g PO TID PRN diabetes mellitus 02/13/20 03/05/24 Unknown History insulin aspart U-100 100 unit/mL 2 - 6 unit subcut TID 02/13/20 03/05/24 03/04/24 History (3 mL) subcutaneous pen insulin degludec 200 unit/mL (3 12 unit subcut BEDTIME 02/13/20 03/05/24 03/04/24 20:00 History mL) subcutaneous pen 12 units oxycodone 5 mg tablet 5 mg PO Q6H PRN pain 02/13/20 03/05/24 03/05/24 History sennosides 8.6 mg tablet 8.6 mg PO BEDTIME PRN Constipation 02/13/20 03/05/24 Unknown History escitalopram oxalate 20 mg tablet 20 mg PO DAILY 12/30/20 03/05/24 03/05/24 History levocetirizine 5 mg tablet 5 mg PO BEDTIME PRN Allergy 01/28/21 02/26/24 03/05/24 History Symptoms buspirone 15 mg tablet 15 mg PO BID 12/28/21 03/05/24 03/05/24 History esomeprazole magnesium 40 mg 40 mg PO DAILY 12/28/21 03/05/24 03/05/24 History capsule,delayed release ferrous sulfate 325 mg (65 mg 325 mg PO DAILY 12/28/21 03/05/24 03/04/24 History iron) tablet famotidine 40 mg tablet 40 mg PO BEDTIME 04/12/22 03/05/24 03/04/24 History acetaminophen 650 mg 650 mg PO TID PRN Pain 05/04/23 03/05/24 Unknown History tablet,extended release isosorbide mononitrate 30 mg 30 mg PO DAILY 05/04/23 03/05/24 03/05/24 History tablet,extended release 24 hr amlodipine 10 mg tablet 10 mg PO DAILY 09/01/23 03/05/24 03/05/24 History tizanidine 2 mg capsule 2 mg PO TID PRN Pain 10/23/23 03/05/24 Unknown History atorvastatin 20 mg tablet 20 mg PO BEDTIME PRN anxiety 02/26/24 03/05/24 Unknown History lorazepam 0.5 mg tablet 0.5 mg PO DAILY PRN Anxiety 02/26/24 03/05/24 Unknown History ondansetron 4 mg disintegrating 4 mg PO DAILY PRN Nausea And 02/26/24 03/05/24 Unknown History tablet Vomiting Exam Height,Weight and Vital Signs: Height 5 ft 3 in Weight 67.132 kg Last Vital Signs Pulse 72 02/26/24 12:12 Resp 16 02/26/24 12:12 BP 125/60 02/26/24 12:12 Pulse Ox 98 02/26/24 12:12 O2 Del Method Room Air 02/26/24 12:12 Airway Mallampati Class: III TM Dist: >3cm Neck ROM: Limited Denture: Upper and Lower Heart: RRR Lungs: CTAB Assessment and Plan Assessment Anesthesia Assessment: Anesthesia Plan Discussed and PAT Visit Documented by User: Kasey Ruiz DO 03/05/24 08:10 PMFSH Past Medical History Medical History (Updated 03/04/24 @ 20:15 by Michael Berkowitz MD) Seizure disorder Seizure disorder Sciatica Right ventricular dilation Pulmonary HTN Insomnia Positive PPD, treated Myofascial muscle pain Meniere disease Memory impairment 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 Left ventricular hypertrophy HTN (hypertension) Hyperlipidemia Hx pulmonary embolism Epigastric pain Early onset Alzheimer dementia Incontinence of urine Dysphasia Diastolic dysfunction Type 2 diabetes mellitus with diabetic peripheral angiopathy without gangrene, with long-term current use of insulin Hx of deep venous thrombosis CKD (chronic kidney disease) stage 3, GFR 30-59 ml/min Cervical facet syndrome Cataract Kidney stone Calcium oxalate crystals present in urine Asthma-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 Depression Anemia Allergic rhinitis Hyperparathyroidism Osteoarthritis Fibromyalgia Hx of renal calculi Hx of seizure disorder Diabetes Cirrhosis GERD (gastroesophageal reflux disease) Nausea Dementia Anxiety RLS (restless legs syndrome) Peripheral venous insufficiency Osteopenia Esophageal varices Gastritis Mitral regurgitation Tricuspid regurgitation Hx of hepatitis C (~2008) Chronic anticoagulation Back pain AVM (arteriovenous malformation) of colon History of anemia Leg pain Chest pain Pleuritis JENNIFER (obstructive sleep apnea) Abnormal chest x-ray Pneumonia COVID-19 (~12/2019) Pulmonary emboli COPD (chronic obstructive pulmonary disease) Family History Family history of problems with anesthesia: No Surgical History Surgical History Hx of lithotripsy Hx of colonoscopy (12/11/19) History of esophagogastroduodenoscopy (EGD) (12/11/19) Hx of hysterectomy (~1974) Hx of parathyroidectomy (~2008) Hx of cholecystectomy (~1975) Hx of cataract extraction History of Problems with Anesthesia: No Social History Social History Are you a primary day care worker to a significant other at home: No Do you presently have visiting nurse or other home services: 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 If so, by whom?: No Are you DNR?: No Advance Directives: No Advance Directives Information Provided: Yes Advance Directives on File: No Recently lost weight without trying: Yes How much weight loss: 34pounds or more Eating poorly because of decreased appetite: Yes Nutrition screen score: 7 Nutrition Risks: Surgical patient >75years Meds Allergies Allergy/AdvReac Type Severity Reaction Status Date / Time bee pollen [bee stings] Allergy Severe Anaphylaxis Verified 03/05/24 07:14 lidocaine [From LIDODERM] Allergy Severe BLISTERS Verified 03/05/24 07:14 from adhesive morphine [MORPHINE] Allergy Severe PO will Verified 03/05/24 07:14 cause itching, can tolerate IV Penicillins [PENICILLINS] Allergy Severe SWELLING/IT Verified 03/05/24 07:14 XIAO gabapentin [GABAPENTIN] Allergy Intermediate SORES IN Verified 03/05/24 07:14 MOUTH- AGITATION enalapril AdvReac Severe hyperkalemi Verified 03/05/24 07:14 a Ampicillin Allergy Intermediate Rash and Uncoded 03/05/24 07:14 Hives Home Medications ?Medication ?Instructions ?Recorded ?Confirmed ?Last Taken ?Type glucose 4 gram chewable tablet 4 g PO TID PRN diabetes mellitus 02/13/20 03/05/24 Unknown History insulin aspart U-100 100 unit/mL 2 - 6 unit subcut TID 02/13/20 03/05/24 03/04/24 History (3 mL) subcutaneous pen insulin degludec 200 unit/mL (3 12 unit subcut BEDTIME 02/13/20 03/05/24 03/04/24 20:00 History mL) subcutaneous pen 12 units oxycodone 5 mg tablet 5 mg PO Q6H PRN pain 02/13/20 03/05/24 03/05/24 History sennosides 8.6 mg tablet 8.6 mg PO BEDTIME PRN Constipation 02/13/20 03/05/24 Unknown History escitalopram oxalate 20 mg tablet 20 mg PO DAILY 12/30/20 03/05/24 03/05/24 History levocetirizine 5 mg tablet 5 mg PO BEDTIME PRN Allergy 01/28/21 02/26/24 03/05/24 History Symptoms buspirone 15 mg tablet 15 mg PO BID 12/28/21 03/05/24 03/05/24 History esomeprazole magnesium 40 mg 40 mg PO DAILY 12/28/21 03/05/24 03/05/24 History capsule,delayed release ferrous sulfate 325 mg (65 mg 325 mg PO DAILY 12/28/21 03/05/24 03/04/24 History iron) tablet famotidine 40 mg tablet 40 mg PO BEDTIME 04/12/22 03/05/24 03/04/24 History acetaminophen 650 mg 650 mg PO TID PRN Pain 05/04/23 03/05/24 Unknown History tablet,extended release isosorbide mononitrate 30 mg 30 mg PO DAILY 05/04/23 03/05/24 03/05/24 History tablet,extended release 24 hr amlodipine 10 mg tablet 10 mg PO DAILY 09/01/23 03/05/24 03/05/24 History tizanidine 2 mg capsule 2 mg PO TID PRN Pain 10/23/23 03/05/24 Unknown History atorvastatin 20 mg tablet 20 mg PO BEDTIME PRN anxiety 02/26/24 03/05/24 Unknown History lorazepam 0.5 mg tablet 0.5 mg PO DAILY PRN Anxiety 02/26/24 03/05/24 Unknown History ondansetron 4 mg disintegrating 4 mg PO DAILY PRN Nausea And 02/26/24 03/05/24 Unknown History tablet Vomiting Exam Exam Date and Time: 03/05/24 0805 Height,Weight and Vital Signs: Height 5 ft 3 in Weight 67.132 kg Last Vital Signs Pulse 72 02/26/24 12:12 Resp 16 02/26/24 12:12 BP 125/60 02/26/24 12:12 Pulse Ox 98 02/26/24 12:12 O2 Del Method Room Air 02/26/24 12:12 Vital Signs Pulse Rate 72 02/26/24 12:12 Respiratory Rate 16 02/26/24 12:12 Blood Pressure 125/60 02/26/24 12:12 Pulse Oximetry 98 02/26/24 12:12 Oxygen Delivery Method Room Air 02/26/24 12:12 Temperature 97.7 F 03/05/24 07:36 Pulse Rate 66 03/05/24 07:36 Respiratory Rate 16 03/05/24 07:36 Blood Pressure 115/54 L 03/05/24 07:36 Pulse Oximetry 98 03/05/24 07:36 Oxygen Delivery Method Room Air 03/05/24 07:36 Airway Mallampati Class: III (small mouth opening) TM Dist: >3cm Neck ROM: Limited Partial: Upper Heart: S1S2 Assessment and Plan Assessment Anesthesia Assessment: Anesthesia Plan Discussed and Chart Reviewed Final Anesthetic Review Family History of Problems with Anesthesia: No History of Problems with Anesthesia: No NPO: Yes ASA Class: III Final Preanesthetic Review: No Changes in Pt Med Stat, Meds/Allgs Chart Reviewed, Consent Obtained/Reviewed (automotive parts interpreter at bedside for translation) and Anes Risks/Benef Reviewed Patient Risk: Intermediate Procedure Risk: Intermediate Anesthetic Plan Anesthetic Plan: GA and Agree w/ Assess. and Plan Disposition: Standard PACU
--- NOTE | 2024-03-05 08:42 | MHC.SHP ---
Pre-Procedural Eval Section A - 24 Hr Update-Section A only Date of Service: 03/05/24 The patient is an INPATIENT: No Section B - Complete if H&P > 30 days Chief Complaint: Radiculopathy, cervical region Details of Present Illness: Cervical myelopathy Allergies: Allergies Allergy/AdvReac Type Severity Reaction Status Date / Time bee pollen [bee stings] Allergy Severe Anaphylaxis Verified 03/05/24 07:14 lidocaine [From LIDODERM] Allergy Severe BLISTERS Verified 03/05/24 07:14 from adhesive morphine [MORPHINE] Allergy Severe PO will Verified 03/05/24 07:14 cause itching, can tolerate IV Penicillins [PENICILLINS] Allergy Severe SWELLING/IT Verified 03/05/24 07:14 XIAO gabapentin [GABAPENTIN] Allergy Intermediate SORES IN Verified 03/05/24 07:14 MOUTH- AGITATION enalapril AdvReac Severe hyperkalemi Verified 03/05/24 07:14 a Ampicillin Allergy Intermediate Rash and Uncoded 03/05/24 07:14 Hives Review of Systems Sugical H&P ROS: Negative: Constitution, Cardiovascular, Respiratory, Neurological, Psychiatric, Hem-Onc, Allergic/Immunologic, Gastrointestinal, Genitourinary, Musculoskeletal, Integumentary, Endocrine and Eyes/Ears/Nose/Throat Exam Surgical H&P Exam: Normal: HEENT, Normal: Heart, Normal: Lungs, Normal: Extremities, Normal: Abdomen, Normal: Skin and Normal: Neurological ( awake, alert) Plan I have reviewed the history and physical and performed a pertinent physical examination on my patient. No changes have occurred unless specified. C3-C4 anterior cervicaldiskectomy and fusion INR is 1 Time Spent With Patient Time: Total time managing care of this patient today ____ minutes.
--- NOTE | 2024-03-05 10:26 | P.OP_ITS ---
Operative Note Operative Note Date of Service: 03/05/24 Narrative: Preoperative Diagnosis: Cervical myelopathy Procedure: C3-C4 Anterior discectomy, arthrodesis and implantation cage ; C3-C4 anterior instrumentation ; local autograft; microscope Informed Consent was obtained for this operation. I have explained the nature, purpose and benefits of the operation. I have discussed the risks and benefit of the operation including possible complications or adverse events with patient/fa faviola. Alternative(s) were discussed with the patient with their relative benefits and risks as well as the consequences of not accepting the operation were included in obtaining consent. Surgeon: VERONICA MORALES MD, PHD Procedure Assisted By: abhishek Zimmerman Description of Procedure: This patient is suffering from progressive cervical myelopathy due to spinal cord compression with myelomalacia at C3-C4. The procedure complications were explained. The patient was consented. The patient was brought to the operating room and endotracheally intubated. The patient was put in supine position with slight extension of the neck. Prep and drape was done followed by timeout. A mid cervical incision was made followed by opening of the platysma. The prevertebral fascia was reached following the natural planes while the physician hospital administrative assistant provided manual retraction. The prevertebral fascia was opened to expose the disc space. A spinal needle was placed in the disk space to confirm the correct level with xray. The longus colli muscles were released bilaterally and a self retaining retractor was inserted. Two [place] pins were placed in the C3 and C4 vertebral bodies and distraction was give over the interspace. The discectomy was completed toward the posterior annulus of the disc. The microscope was brought in. The remainder of the discectomy was completed. The posterior ligame nt was opened and resected to expose the underlying dura. Osteophytes were resected from the body of C3 and C4 and saved for autograft. Bilateral foraminotomies were done. The endplates were prepared after which a 6 mm cage filled with autograft was inserted into the disc space. A separate attached plate was locked down with 2 x 14 mm screws as anterior instrumentation. Final x-rays in AP and lateral projection showed a satisfactory position of the implant. The physician hospital administrative assistant took over. The [place] pin was removed. Hemostasis was done. He closed the incision in 2 layers with a 3-0 Vicryl. Steri-Strips used to approximate incision. An OpSite with Tegaderm was used to cover the incision. All sponge and needle counts were correct. Patient was extubated and transported in stable is to recovery room. Anesthesia: General Estimated Blood Loss (ml): 20 mL Duration of Surgery: 60 minutes Postoperative Plan: Discharge home Complications: None
--- NOTE | 2024-03-05 10:33 | PM.DS ---
DS: Providers Provider Date of Service: 03/05/24 Date of discharge: 03/05/24 Primary care physician: TARA Weiss Admitting clinician: Miguel Fernando DS: Diagnosis Discharge Diagnosis (1) Cervical myelopathy: Status: Acute DS: Summary Time Attestation Discharge Coordination Time (in mins): 5 Quality: Safe Use of Opioids Does Pt have an Active Cancer Diagnosis on the Problem List?: No Quality: Stroke Does the patient have a stroke diagnosis?: No Physical Exam Vital Signs: Vital Signs: Last Vital Signs Temp 97.7 F 03/05/24 07:36 Pulse 66 03/05/24 07:36 Resp 16 03/05/24 07:36 BP 115/54 L 03/05/24 07:36 Pulse Ox 98 03/05/24 07:36 O2 Del Method Room Air 03/05/24 07:36 BMI result Body Mass Index 27.1 DS: Data Data Completed and Pending Labs on day of discharge: Laboratory Results - last 24 hr 03/05/24 03/05/24 07:12 07:38 PT 12.1 D INR 1.0 POC Glucose 211 H Discharge Plan Discharge Patient Disposition: Home, Self-Care Referrals: Massimo Mcclellan PA [Primary Care Provider] - 1 Week Discharge Medications: Continued Trelegy Ellipta 100-62.5-25 mcg blister with device 1 inh inhalation DAILY Qty: 60 0RF atorvastatin 20 mg tablet 20 mg PO BEDTIME PRN (Reason: anxiety) lorazepam 0.5 mg tablet 0.5 mg PO DAILY PRN (Reason: Anxiety) ondansetron 4 mg tablet,disintegrating 4 mg PO DAILY PRN (Reason: Nausea And Vomiting) escitalopram oxalate 20 mg tablet 20 mg PO DAILY levocetirizine 5 mg tablet 5 mg PO BEDTIME PRN (Reason: Allergy Symptoms) sennosides 8.6 mg tablet 8.6 mg PO BEDTIME PRN (Reason: Constipation) glucose 4 gram tablet,chewable 4 g PO TID PRN (Reason: diabetes mellitus) insulin degludec 200 unit/mL (3 mL) insulin pen 12 unit subcut BEDTIME insulin aspart U-100 100 unit/mL (3 mL) insulin pen 2 - 6 unit subcut TID oxycodone 5 mg tablet 5 mg PO Q6H PRN (Reason: pain) ferrous sulfate 325 mg (65 mg iron) tablet 325 mg PO DAILY esomeprazole magnesium 40 mg capsule,delayed release(DR/EC) 40 mg PO DAILY buspirone 15 mg tablet 15 mg PO BID famotidine 40 mg tablet 40 mg PO BEDTIME isosorbide mononitrate 30 mg tablet extended release 24 hr 30 mg PO DAILY acetaminophen 650 mg tablet extended release 650 mg PO TID PRN (Reason: Pain) amlodipine 10 mg tablet 10 mg PO DAILY albuterol sulfate 90 mcg/actuation HFA aerosol inhaler 2 inh inhalation Q6H PRN (Reason: shortness of breath or wheezing) 30 Days Qty: 18 12RF montelukast 10 mg tablet 10 mg PO DAILY 90 Days Qty: 90 3RF tizanidine 2 mg capsule 2 mg PO TID PRN (Reason: Pain) Held apixaban 5 mg tablet 5 mg PO BID 30 Days Qty: 60 6RF Hold Instructions: Resume on 03/08/24. you may resume 3 days after surgery Discharge Orders: Discharge Order (Routine); Ordered 03/05/24 Ordered By: Octaviano Amador Diet: Advance to usual diet Activity on Discharge: As tolerated Activity Restrictions/Additional Instructions: After your spinal surgery we ask you to observe the following restrictions/guidelines: Activity: It is normal to feel some discomfort as you increase your activity, but that will improve with time. We ask you avoid heavy lifting or acitivities that cause pain. As a general rule, 8lbs is a safe limit for lifting right after surgery. Walk as much as you feel comfortable but not to exhaustion. You will feel extra tired the first few days after surgery. Stay well hydrated. It is OK to walk up and down stairs You may return to driving when you are off narcotics (such as vicodin, oxycodone, dilaudid, etc), and you are back to normal functional capacity. If you have any concerns please check with office before driving. Return to work is specific to each patient and each surgery, so please speak with your doctor/PA at first follow up. Please bring paperwork such as FMLA at that time if you need it filled out. Medications: For optimum pain control, it is best to start with a combination of 500 mg of Tylenol every 4 hours with 600 mg of Motrin every 8 hours, and use narcotics as needed in between for breakthrough pain. We will give you a short supply of narcotics after surgery (usually one weeks worth). If you need more please call the office but do not use more than prescribed. You will need to give our office 48 hours notice if you need narcotics refilled and we do not fill narcotics on weekends or evenings. If you are on a narcotic, it is a good idea to take a stool softener such as colace or senna to avoid constipation If you take blood thinner such as aspirin, Plavix, Coumadin, Effient, Eliquis etc for conditions such as Afib, DVT, Pulmonary embolus, coronary disease, stents etc please speak with your surgeon about specific details as to when you can resume these medications. You can resume NSAIDs on post op day 1 (eg: Motrin, Naproxen, etc). Follow up: Please call the office, , after surgery to arrange a 3 week follow up for wound check. Wound Care: You may remove your dressing on the first day after surgery. ?You may ?leave open to air. Please do not remove the steri strips underneath. they will fall off on their own in one week. IT IS NORMAL FOR THE WOUND TO OOZE OR BE BLOODY FOR A FEW DAYS AFTER SURGERY. ?IF THIS HAPPENS JUST PLACE NEW DRESSING OVER IT TO AVOID STAINING CLOTHES. You may shower on post op day # 1 We ask that you do not let the water soak the wound. If it does get wet, just towel dry lightly. Please do not scrub your incision or place any type of chemical/ointment on the wound. No tub baths, pools or jacuzzis for one month. If you have any leaking or redness from your wound, or fevers, please call office Print Language: Slovenian
--- NOTE | 2024-03-05 12:41 | PC.NURSE ---
.THIS RN HAD HER DAUGHTER COME UP TO LISTEN TO THE DISCHARGE ORDERS PATIENT WASN'T UNDERSTANDING EVERYTHING.
== END 2024-03-05 12:43 | disposition home or self-care (01) ==
PROVIDERS: Nurse Practitioner; PCP Physician Assistant; Visit Provider Neurological Surgery
PROC: (CPT 22551; principal; 2024-03-05 09:30)
DX: M50.01 Cervical disc disorder with myelopathy, high cervical region (principal); M50.11 Cervical disc disorder with radiculopathy, high cervical region; I26.99 Other pulmonary embolism without acute cor pulmonale; Z86.718 Personal history of other venous thrombosis and embolism; Z79.01 Long term (current) use of anticoagulants; I12.9 Hypertensive chronic kidney disease with stage 1 through stage 4 chronic kidney disease, or unspecified chronic kidney disease; E11.22 Type 2 diabetes mellitus with diabetic chronic kidney disease; N18.30 Chronic kidney disease, stage 3 unspecified; E78.00 Pure hypercholesterolemia, unspecified; G47.33 Obstructive sleep apnea (adult) (pediatric); Z79.4 Long term (current) use of insulin; Z79.899 Other long term (current) drug therapy; Z88.0 Allergy status to penicillin; Z88.1 Allergy status to other antibiotic agents; Z88.5 Allergy status to narcotic agent; Z88.8 Allergy status to other drugs, medicaments and biological substances
CPT/HCPCS: 22551; 22853; 20936; 22845; 36415; 80053; 82947; 83036; 85027; 85610; C1713; C1889; J0131; J1100; J1596; J2003; J2405; J2704; J3010; J3370

== ENCOUNTER → 2024-03-05 06:48 | Outpatient (BNV) | payer OTHER, SELFPAY | PROVIDERS: PCP Physician Assistant; Visit Provider Neurological Surgery | DX: M50.01 Cervical disc disorder with myelopathy, high cervical region (principal); G95.9 Disease of spinal cord, unspecified | CPT/HCPCS: 20936; 22551; 22845; 22853; 99499 ==

== ENCOUNTER 2024-03-26 13:25 | Outpatient (AMB) | payer OTHER, SELFPAY ==
--- NOTE | 2024-03-26 13:26 | HO.SPINEOV ---
Intake Visit Reasons: 1st post op Intake Note: Ms. Corea is here today for her 1st post op. Entry Level Web Developer Required: Yes Entry Level Web Developer Services: Entry Level Web Developer Present Allergies bee pollen [bee stings] Allergy (Severe, Verified 03/26/24 13:28) Anaphylaxis lidocaine [From LIDODERM] Allergy (Severe, Verified 03/26/24 13:28) BLISTERS from adhesive morphine [MORPHINE] Allergy (Severe, Verified 03/26/24 13:28) PO will cause itching, can tolerate IV Penicillins [PENICILLINS] Allergy (Severe, Verified 03/26/24 13:28) SWELLING/ITCHING gabapentin [GABAPENTIN] Allergy (Intermediate, Verified 03/26/24 13:28) SORES IN MOUTH- AGITATION enalapril Adverse Reaction (Severe, Verified 03/26/24 13:28) hyperkalemia Ampicillin Allergy (Intermediate, Uncoded 03/05/24 07:14) Rash and Hives Assessment & Plan Assessment & Plan (1) S/P cervical spinal fusion: Code(s): Z98.1 - Arthrodesis status Category: Surgical Plan Procedure: C3-4 ACDF Leonie comes in today for her 1st postoperative visit after having a C3-[address] Fernando. To recap, she initially presented to clinic with neck pain that was in the posterior part of her cervical spine radiating up to the back of her head with feelings of tingling and numbness going down to arms and her hands. Today, she reports good improvement of the symptoms described in her arms and hands. She does continue to report some posterior neck pain, but has been using [id number] medications and Biofreeze, in an attempt to mitigate this pain. Other than that she is doing very well and reports no other physical limitations since the surgery. No new neurological deficits. The patient is able to ambulate well and rises from a seated position without difficulty. Her anterior incision site is closed and well healing. I would like to follow up with her again in 6 weeks with a set of x-rays to review. Gerardo Fernando MD,PhD [facility] Coding Level of Care Code Global (11866) Diagnoses S/P cervical spinal fusion Z98.1
--- OUTSIDE RECORDS SUMMARY | 2024-03-26 13:27 | XMS_ITS | Data Portability ---
Author Organization [place] [employer]To Yellow Pages [facility] Address [address] [place] [phone] Care Team Providers Care B2B Sales Professional Name Role Phone HIM CAMILLA Primary Care Provider [phone] FELY COVARRUBIAS Primary Care Provider Assessment Encounter Date Assessment Date Assessment LastModified by Organization Details LastModified Time 02/29/2024 02/29/2024 Evaluation in the field was performed by my rn clinical colleague, as noted above, I provided real-time direction and supervision for this visit. This is a 78yo F presenting for UTI symptoms. Daughter states pt has had burning with urination since yesterday. Appetite is slightly decreased, but she is eating/drinking . No fever, nausea, vomiting, or abdominal pain. PE: General: Awake & alert, NAD Respiratory: Chest rise equal bilat, no increased wob CV: Regular rate, normal peripheral perfusion Abd: Soft, nontender, nondistended Impression: Dysuria Plan: -VSS, nontoxic appearing -poc urine shows many leuks, large blood -Pt having dysuria with no other major symptoms, is afebrile, eating/drinking . Will go ahead and treat for UTI with cefpodoxime 500mg BID. -Culture sent to lab -Family advised they will be called if any changes are required based on culture results Disposition: Remain at home [email or web address] Not available 02/29/2024 18:17:21 Plan of Treatment Reminders Order Date Submit Date Provider Last Modified By Organization Details Last Modified Time Details Appointments None recorded. Lab urinalysis, dipstick 2023 024 [facility], [address] [place] [address], [place], [address], 18:47:22 culture, urine 2023 024 [place] [facility], [address] [place], [address], 22:06:00 Referral None recorded. Procedures None recorded. Surgeries None recorded. Imaging None recorded. Medication Orders cefuroxime axetil 500 mg tablet 2023 024 [facility][id number], [address] [facility], [place], [address], 17:49:37 Patient TargetsNo targets recorded. Patient InstructionsNo instructions recorded. Reason for Referral None Reported. Results Created Date Observation Date Name Description Value Unit Range Abnormal Flag Note LastModifiedBy Organization Detail LastModifiedTime 02/29/2003/01/2024 URINE CULTU REJUDITH NE urine culture, routine Final report Not Available [facility] ([facility]) [address] [place], [address], 03/01/2024 22:06:00 02/29/2003/01/2024 URINE CULTU REJUDITH NE result 1 No growth Not Available [facility] ([facility]) [address] [facility], [place], [address], 03/01/2024 22:06:00 Result Notes None recorded. Medical Equipment None Reported. Allergies Allergen ID Allergen Name Allergen Category Reaction Reaction Severity Criticality Documentation Date Start Date Code Code System Note Provider Name and Address Organization Details Recorded Time 16341 enalapril Not available Not available Not available Not available 02/29/2024 3827 RxNorm Amina Fatima MD [address] [place] [address],[address], [place], [address] , [facility] - [employer] 17:47:48 9685 Medicinal product containin g penicilli n and acting as antibacte rial agent (product) medicatio n Not available Not available Not available 02/06/2024 73899 05 SNOMED Not Available [facility] - production 04:14:41 9686 lidocaine medicatio n Not available Not available Not available 02/06/2024 6387 RxNorm Not Available [facility] - production 4 04:14:41 9687 morphine medicatio n Not available Not available Not available 02/06/2024 7052 RxNorm Not Available [facility] 4 04:14:41 Medications Name Sig Start Date Stop Date Status Note LastModified by Organization Details LastModified Time cyclobenzapr ine 10 mg tablet TOME GAGE TABLETA GEGE VECES AL D A CUANDO SEA NECESARIO PARA ESPASMOS MUSCULARES active Not Available Not Available N ot Available metformin 500 mg tablet TAKE 1 TABLET BY MOUTH ONCE DAILY WITH BREAKFAST active Not Available Not Available No t Available atorvastatin 20 mg tablet TAKE 1 TABLET BY MOUTH NIGHTLY AT BEDTIME STOP PRAVASTATIN 10 MG active Not Available Not Available No t Available tizanidine 2 mg tablet TAKE 1 TABLET BY MOUTH EVERY 8 HOURS FOR 14 DAYS NEEDED FOR MUSCLE SPASM active Not Available Not Available No t Available nitroglyceri n 0.3 mg sublingual tablet PLEASE SEE ATTACHED FOR DETAILED DIRECTIONS active Not Available Not Available N ot Available senna 8.6 mg tablet TOME DOS TABLETAS POR V A ORAL NIGHTLY AL ACOSTARSE CUANDO SEA NECESARIO PARA EL ESTRE IMIENTO active Not Available Not Available No t Available FreeStyle Lancets 28 gauge USE TO TEST BLOOD GLUCOSE THREE TIMES DAILY. (FREESTYLE LANCETS) active Not Available Not Available No t Available ondansetron HCl 4 mg tablet TAKE 1 TABLET BY MOUTH EVERY 8 HOURS NEEDED FOR NAUSEA active Not Available Not Available No t Available famotidine 40 mg tablet TOME GAGE TABLETA POR VIA ORAL AT NOCHE AL ACOSTARSE CUANDO SEA NECESARIO PARA LA ACIDEZ active Not Available Not Available No t Available isosorbide mononitrate ER 30 mg tablet,exten ded release 24 hr TOME GAGE TABLETA POR VIA ORAL CADA MANANA active Not Available Not Available Not Available ciprofloxaci n 250 mg tablet TOME GAGE TABLETA DOS VECES AL D A POR 3 D active Not Available Not Available No t Available amlodipine 5 mg tablet TOME GAGE TABLETA TODOS LOS D active Not Available Not Available No t Available acetaminophe n 500 mg tablet TAKE 2 TABLETS BY MOUTH EVERY 6 HOURS NEEDED FOR PAIN. active Not Available Not Available No t Available acetaminophe n ER 650 mg tablet,exten ded release TAKE 1 TABLET BY MOUTH EVERY 8 HOURS NEEDED FOR PAIN INDICATIONS : PAIN ASSOCIATED WITH ARTHRITIS active Not Available Not Available No t Available lorazepam 0.5 mg tablet TAKE 1 TABLET BY MOUTH 3 (THREE) TIMES DAILY NEEDED FOR ANXIETY OR SLEEP active Not Available Not Available No t Available pravastatin 10 mg tablet TOME 1 TABLETA POR V A ORAL TODOS LOS D active Not Available Not Available No t Available triamcinolon e acetonide 0.025 % topical cream APLIQUE AL JACOBO AFECTADA TOPICALLY DOS VECES AL D A POR 10 D active Not Available Not Available No t Available amlodipine 10 mg tablet TAKE 1 TABLET BY MOUTH EVERY MORNING FOR BLOOD PRESSURE active Not Available Not Available No t Available ferrous sulfate 325 mg (65 mg iron) tablet TAKE 1 TABLET BY MOUTH ONCE DAILY WITH BREAKFAST active Not Available Not Available No t Available esomeprazole magnesium 40 mg capsule,jolynn yed release TOME GAGE CAPSULA TODOS LOS HDZ EN LA MANANA ANTES DEL DESAYUNO active Not Available Not Available No t Available glucose 4 gram chewable tablet CHEW 4 TABLETS NEEDED FOR BLOOD SUGAR LESS THAN 70. active Not Available Not Available No t Available montelukast 10 mg tablet TOME GAGE TABLETA POR V A ORAL TODOS LOS D active Not Available Not Available No t Available cefuroxime axetil 500 mg tablet TOME 1 TABLETA POR V A ORAL CADA 12 HORAS POR 5 D active Not Available Not Available No t Available ondansetron 4 mg disintegrati ng tablet TOME 1 TABLETA POR V A ORAL CADA 8 HORAS CUANDO SEA NECESARIO PARA LAS N USEAS Y V MITOS active Not Available Not Available No t Available Ventolin HFA 90 mcg/actuatio n aerosol inhaler INHALE 2 PUFFS BY MOUTH EVERY 6 HOURS NEEDED FOR SHORTNESS OF BREATH OR WHEEZING FOR 30 DAYS active Not Available Not Available Not Available buspirone 15 mg tablet TAKE 1/3-1/2 TABLET ORALLY IN THE MORNING AND EVENING NEEDED AND 1 TAB AT BEDTIME active Not Available Not Available N ot Available oxycodone 5 mg tablet TAKE 2 TABLETS BY MOUTH EVERY 6 HOURS NEEDED FOR PAIN FOR UP TO 28 DAYS active Not Available Not Available N ot Available escitalopram 20 mg tablet TOME 1 TABLETA POR VIA ORAL TODOS LOS HDZ active Not Available Not Available No t Available Novolog FlexPen U-100 Insulin aspart 100 unit/mL (3 mL) subcutaneous inject 2-6 units into THE SKIN THREE TIMES DAILY BEFORE meals (DO not USE if blood glucose is less THAN 100mg/dL max 18 uints/ DAY active Not Available Not Available N ot Available Alcohol Prep Pads USE TO TEST BLOOD GLUCOSE 3 TIMES DAILY. active Not Available Not Available No t Available tizanidine 2 mg capsule TOME GAGE C PSULA GEGE VECES AL D A active Not Available Not Available No t Available FreeStyle Lite Strips CHECK UP TO 5 TIMES DAILY. E11.65 active Not Available Not Available No t Available levocetirizi ne 5 mg tablet TOME 1 TABLETA POR V A ORAL TODOS LOS D NEEDED FOR ALLERGIES BEFORE DINNER active Not Available Not Available No t Available diclofenac 1 % topical gel APPLY TOPICALLY 2 (TWO) TIMES DAILY. active Not Available Not Available No t Available BD Ultra-Fine Juana Pen Needle 32 gauge x 5/32 USE DIRECTED TO INJECT INSULIN 4 TIMES PER DAY. E11.9 active Not Available Not Available N ot Available Tradjenta 5 mg tablet TOME GAGE TABLETA TODOS LOS D active Not Available Not Available No t Available Eliquis 5 mg tablet TOME 1 TABLETA POR V A ORAL DOS VECES AL D A active Not Available Not Available No t Available Tresiba FlexTouch U-200 insulin 200 unit/mL (3 mL) subcutaneous pen INJECT 12 UNITS INTO THE SKIN NIGHTLY AT BEDTIME active Not Available Not Available No t Available naloxone 4 mg/actuation nasal spray place ONE SPRAY into THE nostril NEEDED FOR opioid reversal (overdose) active Not Available Not Available N ot Available Trelegy Ellipta 100 mcg-62.5 mcg-25 mcg powder for inhalation INHALE UN SOPLIDO A DIARIO active Not Available Not Available No t Available Baqsimi 3 mg/actuation nasal spray PLACE 3 MG INTO THE NOSTRIL(S) EVERY MORNING active Not Available Not Available No t Available FreeStyle Zandra 2 Sensor kit USE DIRECTED FOR TYPE 2 DIABETES MELLITUS, REPLACE SESNOR EVERY 14 DAYS active Not Available Not Available No t Available Dexcom G7 Ammonia Still Operator USE TO TEST BLOOD GLUCOSE CONTINUOUSL Y (DEXCOM G7 MIDWIFE PRACTITIONER) active Not Available Not Available No t Available Dexcom G7 Sensor device APPLY 1 SENSOR TO BACK OF UPPER ARM EVERY 10 DAYS. USE TO CHECK GLUCOSE AT LEAST 3 TIMES DAILY. active Not Available Not Available No t Available Vitals Date Recorded Respiratory rate Oxygen saturation Oxygen saturation in Arterial blood by Pulse oximetry Heart rate Systolic blood pressure Diastolic blood pressure Provider Name and Address Organization Details Last Updated DateTime 4 16 /min 97 % 97 % 71 /min 113 mm[Hg] 74 mm[Hg] Not Available [facility] 13:36:27 Date Recorded Oxygen saturation Oxygen saturation in Arterial blood by Pulse oximetry Body height Heart rate Respiratory rate Body temperature Body weight Systolic blood pressure Diastolic blood pressure Provider Name and Address Organization Details Last Updated DateTime 4 98 % 98 % 160.02 cm 67 /min 16 /min 98.3 [degF] 42269.6 16 g 117 mm[Hg] 61 mm[Hg] Not Available [facility] 4 17:46:27 Social History None recorded. Functional Status None recorded. Mental Status None recorded. Family History Nothing Reported. Medical History No medical history recorded. Gynecological HistoryNo gynecological history recorded. Obstetrics History GPAL:G 0 P 0 0 0 0 Past Encounters Encounter ID Performer Location Encounter Start Date Encounter Closed Date Diagnosis/Indication Diagnosis SNOMED-CT Code Diagnosis ICD10 Code [id number] Wild Mendoza MD [facility] [address] [place] [phone] 06/12/2023 13:36:18 06/12/2023 18:56:08 Contusion of left lower leg [id number] S80.12XA [id number] Amina Fatima MD [facility] - [facility] [address] [place] [phone] 02/29/2024 17:46:24 03/01/2024 00:46:10 Dysuria 89484824 R30.0 Health Concerns Section Related Observation LastModified by Organization Detai ls LastModified Time None Recorded Concern Status LastModified by Organization Details LastModified Time None Recorded Advance Directives Directive None Recorded Payers Encounter Date Sequence Insurance Name Policy Number Policy Martinez Covered Member ID Martinez Member ID Guarantor Name 06/12/2023 1 [facility] - DOS ON OR AFTER 2022 - DUAL ELIGIBLE - [employer] AND ONE CARE (MEDICARE REPLACEMENT/ADV ANTAGE - HMO) Leonie Corea [id number] Leonie Corea 02/29/2024 1 [facility] - DOS ON OR AFTER 2022 - DUAL ELIGIBLE - [employer] OPT[employer] AND ONE CARE (MEDICARE REPLACEMENT/ADV ANTAGE - HMO) Leonie Corea [id number] Leonie Corea Notes Date Note Type Note Provider Name and Address Organization Details Recorded Time 06/12/2023 text/html [facility] Nurse Triage Notes (Odessa Perez): Reason For Request: Fall Chief Complaints: Injury PMH: Heart Disease, Diabetes, Hypertension Allergies: Penicillin, Lidocaine, Morphine Comments: Called back member and ostomy care nurse for c/o falling yesterday when getting out of the bathtub. reports bruising on leg leg and underneath her knee along with pain, able to bear weight on leg. Denies any dizziness prior to injury. PMH: HTN, CKD stage 1, DM, heart disease. Daughter requesting a visit since member refusing to go to the ED. They reached out to PCP but no call back yet. Verified name//address. [facility] MD [address] [place] [address],[address] [facility], [place], [address], Ramamia 06/12/2023 13:41:12 02/29/2024 text/html [facility] Nurse Triage Notes (Velia Shields): Reason For Request: UTI Patient Reports: Painful urination; Frequent and increased urination with flank pain; Painful urination with or without fever Denies: Inability to fully empty bladder Chief Complaints: Urinary symptoms, Diabetes-related PMH: Coronary Artery Disease, Hypertension, Diabetes Mellitus Type 2 Comments: Personal Property Assessor verified the name//address and phone number.Patient is a 78 yr old female Daughters calling for UTI symptoms. Since yesterday , she has had a burning sensation. She has had high sugars and does not have much of an appetite. She has had back pain but denies any abd pain, she does have a h/o kidney stones, does not drink much h20. She denies any odor or change in color. Education provided on the response time and the Patient was advised to monitor reported s/s and seek emergency treatment if needed Lumber Straightener Organization Information for Denilson Diaz Business Legal Name: [facility]? ? Address: [address] [place], [place] [id number], Tent Assembler: Tobin RUANOMT No.: [id number] Lumber Straightener POC Test Results from Joe Denilson - ALS Urine Dipstick (17:44:16) Urine leukocytes: + ANT Urine nitrites: - NIT Urine urobilinogen: - URO Urine protein: +/- PRO Urine pH: 5.0 pH Urine blood: +++ BLO Urine specific gravity: 1.010 SG Urine ketones: - KET Urine bilirubin: +/- FRANTZ Urine glucose: - GLU .................. .................. .................. .................. .................. .................. .................. ............... Lumber Straightener Note From Denilson Diaz: [facility] visit for female pt. Pt presents with her daughter at home. Daughter reports pt had onset of burning with urination yesterday in addition to urinary frequency. Daughter also questioning some possible confusion. V/S taken as listed. Pt afebrile. Pt was able to provide urine specimen with dipstick analysis showing leukocytes and blood. Urine culture specimem obtained. Consulted with [facility] Dr. Fatima who started pt on antibiotics and requested urine culture sent to [facility]. Reviewed red flags for ED with pt and daughter. Pt education provided. [facility] Lab Orders: urinalysis, dipstick: Performed .................. .................. .................. .................. .................. .................. .................. ............... [facility] Consulted: Amina Fatima .................. .................. .................. .................. .................. .................. .................. ............... Disposition: Fulfilled Amina Fatima MD [address] [place] [address],[address], [place], [address], [employer] [facility] 02/29/2024 19:43:53 OBGyn Episode No OBEpisode recorded.
== END 2024-03-26 13:44 | disposition home or self-care (01) ==
PROVIDERS: PCP Physician Assistant; Visit Provider Physician Assistant
DX: Z98.1 Arthrodesis status (principal)
CPT/HCPCS: 99024

== ENCOUNTER → 2024-03-26 13:25 | Outpatient (BNVA) | payer OTHER, SELFPAY | PROVIDERS: PCP Physician Assistant; Visit Provider Physician Assistant | DX: Z98.890 Other specified postprocedural states (principal); Z98.1 Arthrodesis status | CPT/HCPCS: 99212 ==

== ENCOUNTER 2024-05-01 14:25 | Outpatient (AMB) | payer OTHER, SELFPAY ==
--- NOTE | 2024-05-01 14:40 | A.SPINEOV_ITS ---
Intake Visit Reasons: 2nd post op with xray Intake Note: Ms. Corea is here today for her 2nd post op with xrays. Property Economist Required: Yes Property Economist Services: Property Economist Present Property Economist Name: Rachele Allergies bee pollen [bee stings] Allergy (Severe, Verified 03/26/24 13:28) Anaphylaxis lidocaine [From LIDODERM] Allergy (Severe, Verified 03/26/24 13:28) BLISTERS from adhesive morphine [MORPHINE] Allergy (Severe, Verified 03/26/24 13:28) PO will cause itching, can tolerate IV Penicillins [PENICILLINS] Allergy (Severe, Verified 03/26/24 13:28) SWELLING/ITCHING gabapentin [GABAPENTIN] Allergy (Intermediate, Verified 03/26/24 13:28) SORES IN MOUTH- AGITATION enalapril Adverse Reaction (Severe, Verified 03/26/24 13:28) hyperkalemia Ampicillin Allergy (Intermediate, Uncoded 03/05/24 07:14) Rash and Hives Assessment & Plan Assessment & Plan (1) S/P cervical spinal fusion: Code(s): Z98.1 - Arthrodesis status Category: Surgical Plan Procedure: C3-4 ACDF Leonie comes in today for her 2nd postoperative visit after having a C3-[address] Fernando. To recap, she initially presented to clinic with neck pain that was in the posterior part of her cervical spine radiating up to the back of her head with feelings of tingling and numbness going down to arms and her hands. Today, she continues to report good resolution of these symptoms, but has persisted with posterior neck pain. The patient stated that Motrin has helped her in the past with similar pain, and asked if I can prescribe this for her as she cannot take Tylenol due to liver issues / concerns. On further review the patient has stage 3 CKD so perhaps this is what she was referring to. She cannot take ibuprofen. I will send in muscle relaxers to help with posterior neck spasms & pain instead. No new neurological deficits. The patient is able to ambulate well and rises from a seated position without difficulty. Her anterior incision site is closed and well healing. I encourage Leonie that she likely needs to give this some more time to heal before the posterior neck pain will resolve. She has no radicular / upper extremity symptoms so this is reassuring. I encouraged her to come in for follow up in 2 months if this does not self resolve. Gerardo Fernando MD,PhD [facility] Orders: Orders XR cervical spine 4V Today Z98.1 - Arthrodesis status Medications: New baclofen 5 mg PO TID 30 tabs 0RF muscle spasms / pain Coding Level of Care Code Global (97116) Diagnoses S/P cervical spinal fusion Z98.1
--- OUTSIDE RECORDS SUMMARY | 2024-05-01 16:48 | XMS_ITS | Continuity of Care Document ---
Author Organization [employer] [place] [facility] [employer] Address [address] [place] [address] Care Team Providers Care Production Coordinator Name Role Phone FELY COVARRUBIAS Primary Care Provider HIM CCA OTHER Assessment Encounter Date Assessment Date Assessment LastModified by Organization Details LastModified Time 04/09/2024 04/09/2024 I provided real -time medical direction via phone for this encounter and was available for additional phone-based assistance as needed. I have reviewed and agree with the Assessment and Plan as documented by the Clinical Team Manager. Patient given the opportunity to ask questions. Our service contacted for an assessment of: Urinary frequency As per above, patient with approximately several days of urinary frequency. Denies dysuria, abdominal pain, suprapubic pain, flank pain, fever, chills. Does have diabetes and sugars have been running high. Does not specifically endorse polydipsia. No history of frequent urinary tract infections Per desulphuring operator on the scene, vital signs are stable and patient is afebrile. Nontoxic in no distress. UA uploaded. Impression: Urinary frequency Plan: Patient with frequency as only symptoms but does have diabetes and did have elevated blood glucoses which may be resulting in frequency. No dysuria described. Patient is most recent cultures reviewed. No evidence of infection currently with planned UA. Check urine culture before starting antibiotics. Patient is agreement with plan. Allergies: Reviewed PCP f/u: We discussed the diagnostic uncertainty of home visits and the risk associated with this. In this case, the patient and I felt this to be an acceptable and reasonable amount of risk given the benefit of avoiding an ED visit. We discussed the need to seek care urgently/emergen tly in the setting of any new or worsening serious symptoms, particularly fever chills [email or web address] Not available 04/09/2024 22:48:27 Plan of Treatment Reminders Order Date Submit Date Provider Last Modified By Organization Details Last Modified Time Details Appointments None recorded. Lab urinalysis , dipstick 2023 024 [facility] [address] [place], [address], 4 19:24:48 culture, urine 2023 024 [place], [address] [facility], [place], [address], 5 20:05:30 Referral None recorded. Procedures None recorded. Surgeries None recorded. Imaging None recorded. Medication Orders None recorded. Patient TargetsNo targets recorded. Patient InstructionsNo instructions recorded. Reason for Referral None Reported. Results Created Date Observation Date Name Description Value Unit Range Abnormal Flag Note LastModifiedBy Organization Detail LastModifiedTime Result Notes None recorded. Medical Equipment None Reported. Allergies Allergen ID Allergen Name Allergen Category Reaction Reaction Severity Criticality Documentation Date Start Date Code Code System Note Provider Name and Address Organization Details Recorded Time 04318 enalapril Not available Not available Not available Not available 02/29/2024 3827 RxNorm Not Available [facility] - production 4 11:30:38 9685 Product containin g penicilli n and antibioti c (product) medicatio n Not available Not available Not available 02/06/2024 81848 05 SNOMED Not Available [facility] - production 4 04:14:41 9686 lidocaine medicatio n Not available Not available Not available 02/06/2024 6387 RxNorm Not Available [facility] - production 4 04:14:41 9687 morphine medicatio n Not available Not available Not available 02/06/2024 7052 RxNorm Not Available [facility] - production 4 04:14:41 Medications Name Sig Start Date [...] Ultra-Fine Ju[place] Pen Needle 32 gauge x USE DIRECTED TO INJECT INSULIN 4 TIMES [...] Not Available No t Available Dexcom G7 [place] USE TO TEST BLOOD GLUCOSE CONTINUOUSL Y (DEXCOM G7 DONATION WORKER) active Not Available Not Available No t Available Dexcom G7 Sensor device APPLY 1 SENSOR TO BACK OF UPPER ARM EVERY 10 DAYS. USE TO CHECK GLUCOSE AT LEAST 3 TIMES DAILY. active Not Available Not Available No t Available Vitals Date Recorded Body temperature Body weight Body height Heart rate Oxygen saturation Oxygen saturation in Arterial blood by Pulse oximetry Respiratory rate Systolic blood pressure Diastolic blood pressure Provider Name and Address Organization Details Last Updated DateTime 4 98.7 [degF] 98732.9 84 g 160.02 cm 80 /min 99 % 99 % 18 /min 117 mm[Hg] 67 mm[Hg] Not Available [facility] - production 4 17:07:34 Social History None recorded. Functional Status None recorded. Mental Status None recorded. Family History Nothing Reported. Medical History No medical history recorded. Gynecological HistoryNo gynecological history recorded. Obstetrics History GPAL:G 0 P 0 0 0 0 Past Encounters Encounter ID Performer Location Encounter Start Date Encounter Closed Date Diagnosis/Indication Diagnosis SNOMED-CT Code Diagnosis ICD10 Code Diagnosis Note [id number] Kimmy Chang MD [facility] - [facility] [address] [place] [address] 04/09/2024 16:51:24 04/09/2024 22:30:06 Urinary symptoms 994808210 R39.9 Increased frequency of urination 807023114 R35.0 Health Concerns Section Related Observation LastModified by Organization Detai ls LastModified Time None Recorded Concern Status LastModified by Organization Details LastModified Time None Recorded Payers Encounter Date Sequence Insurance Name Policy Number Policy Martinez Covered Member ID Martinez Member ID Guarantor Name 04/09/2024 1 [facility] - DOS ON OR AFTER 2022 - DUAL ELIGIBLE - HALF-WAY OPTIONS AND ONE CARE (MEDICARE REPLACEMENT/ADV ANTAGE - HMO) Leonie Corea [id number] Leonie Corea Notes Date Note Type Note Provider Name and Address Organization Details Recorded Time 04/09/2024 text/html CRC Nurse Triage Notes (Ben Garza - HEIDY): Reason For Request: Possible uti, painful to urinate. Denies: Unable to void greater than 5 hours Fall or trauma that results in urinary incontinence in the setting of pain Fall or injury that results in incontinence in the absence of pain Lower back pain either unilateral or bilateral, unable to void, painful urination -hematuria Chief Complaints: Dizziness, Urinary symptoms PMH: Coronary Artery Disease, Hypertension, Diabetes Mellitus Type 2, Chronic Kidney Disease Comments: [employer] verified the patient's name//address and phone number. Pt's daughter calling reporting pt had recent UTI, but she is unsure that pt finished her antibiotics because pt had surgery before the end of the antibiotic course. Daughter reports pt is having pain and burning with urination, pain in vaginal area, increased blood sugar levels, and intermittent dizziness. Pt is also reporting flank pain. Education provided on the response time and the patient was advised to monitor reported s/s and seek emergency treatment if needed -Lupe Garza RN Clinical Team Manager Organization Information for Wood[employer] Legal Name: [employer]? ? Address: [address] [place] [address], Pin Feather Machine Operator: Tobin Mclain MD CLIA No.: [id number] Clinical Team Manager POC Test Results from Laura Woody - KETAN Blood Glucose Measurement (17:14:05) Blood Glucose: 220 mg/dL Urine Dipstick (17:14:09) Urine leukocytes: 70+ ANT Urine nitrites: - NIT Urine urobilinogen: 0.2 URO Urine protein: - PRO Urine pH: 6.5 pH Urine blood: - BLO Urine specific gravity: 1.005 SG Urine ketones: - KET Urine bilirubin: - FRANTZ Urine glucose: - GLU Attachments uploaded as part of this test result can be found under Documents section. Kimmy Chang MD [address] [facility],[address], [place], [address], [facility] - [facility] 04/09/2024 22:48:45 OBGyn Episode No OBEpisode recorded.
--- OUTSIDE RECORDS SUMMARY | 2024-05-01 16:48 | XMS_ITS | Data Portability ---
Author Organization [employer] [place] - [employer] Address [address] [place] [address] Care Team Providers Care Sample Box Maker Name Role Phone MARCIUNIQUEFELY Primary Care Provider [phone] HIM CCA OTHER Assessment Encounter Date Assessment Date Assessment LastModified by Organization Details LastModified Time 02/29/2024 02/29/2024 Evaluation in the field was performed by my gas meter prover colleague, as noted above, I provided real-time direction and supervision for this visit. This is a 78yo F presenting for UTI symptoms. Daughter states pt has had burning with urination since yesterday. Appetite is slightly decreased, but she is eating/drinking. No fever, nausea, vomiting, or abdominal pain. PE: General: Awake & alert, NAD Respiratory: Chest rise equal bilat, no increased wob CV: Regular rate, normal peripheral perfusion Abd: Soft, nontender, nondistended Impression: Dysuria Plan: -VSS, nontoxic appearing -poc urine shows many leuks, large blood -Pt having dysuria with no other major symptoms, is afebrile, eating/drinking. Will go ahead and treat for UTI with cefpodoxime 500mg BID. -Culture sent to lab -Family advised they will be called if any changes are required based on culture results Disposition: Remain at home [email or web address] Not available 02/29/2024 18:17:21 04/09/2024 04/09/2024 I provided real -time medical direction via phone for this encounter and was available for additional phone-based assistance as needed. I have reviewed and agree with the Assessment and Plan as documented by the Inventory Clerk. Patient given the opportunity to ask questions. Our service contacted for an assessment of: Urinary frequency As per above, patient with approximately several days of urinary frequency. Denies dysuria, abdominal pain, suprapubic pain, flank pain, fever, chills. Does have diabetes and sugars have been running high. Does not specifically endorse polydipsia. No history of frequent urinary tract infections Per gas meter prover on the scene, vital signs are stable [...] Appointments None recorded. Lab urinalysis, dipstick 2023 [employer] [facility], [address] [place] [address], [phone], 4 18:47:22 culture, urine 2023 [email or web address], [address] [place], [address], 4 22:06:00 urinalysis, dipstick 2023 [facility], [address] [place] [address], [phone], 4 19:24:48 culture, urine 2023 024 [email or web address], [address] [place], [address], 5 20:05:30 Referral None recorded. Procedures None recorded. Surgeries None recorded. Imaging None recorded. Medication Orders cefuroxime axetil 500 mg tablet 2023 024 [id number], [address] [facility], [place], [address], 17:49:37 Patient TargetsNo targets recorded. Patient InstructionsNo instructions recorded. Reason for Referral None Reported. Results Created Date Observation Date Name Description Value Unit Range Abnormal Flag Note LastModifiedBy Organization Detail LastModifiedTime 02/29/20 24 03/01/2024 URINE CULTU RE, ROUTI NE urine culture, routine Final report Not Available [facility] ([facility]) [address] [facility], [place], [address], 03/01/2024 22:06:00 02/29/20 24 03/01/2024 URINE CULTU RE, ROUTI NE result 1 No growth Not Available [facility] ([facility]) [address] [place], [address], 03/01/2024 22:06:00 04/09/20 24 04/10/2024 URINE CULTU RE, ROUTI NE urine culture, routine Final report Not Available [facility] ([facility]) [address] [facility], [place], [address], 04/10/2024 20:05:30 04/09/20 24 04/10/2024 URINE CULTU RE, ROUTI NE result 1 No growth Not Available [facility] ([facility]) [address] [place], [address], 04/10/2024 20:05:30 Result Notes None recorded. Medical Equipment None Reported. Allergies Allergen ID Allergen Name Allergen Category Reaction Reaction Severity Criticality Documentation Date Start Date Code Code System Note Provider Name and Address Organization Details Recorded Time 19063 enalapril Not available Not available Not available Not available 02/29/2024 3827 RxNorm Not Available [facility] - production 11:30:38 9685 Product containin g penicilli n and antibioti c (product) medicatio n Not available Not available Not available 02/06/2024 07157 05 SNOMED Not Available [facility] - production 4 04:14:41 9686 lidocaine medicatio n Not available Not available Not available 02/06/2024 6387 RxNorm Not Available [facility] 4 04:14:41 9687 morphine medicatio n Not available Not available Not available 02/06/2024 7052 RxNorm Not Available [facility] 4 04:14:41 Medications Name Sig Start Date [...] Not Available No t Available Dexcom G7 Mechanic Assistant USE TO TEST BLOOD GLUCOSE CONTINUOUSL Y (DEXCOM G7 DRYING MACHINE BACK TENDER) active Not Available Not Available No t [...] /min 113 mm[Hg] 74 mm[Hg] Not Available [employer] 4 13:36:27 Date Recorded Oxygen saturation Oxygen saturation in Arterial blood by Pulse oximetry Body height Heart rate Respiratory rate Body temperature Body weight Systolic blood pressure Diastolic blood pressure Provider Name and Address Organization Details Last Updated DateTime 4 98 % 98 % 160.02 cm 67 /min 16 /min 98.3 [degF] 70674.6 16 g 117 mm[Hg] 61 mm[Hg] Not Available [employer] 4 17:46:27 Date Recorded Body temperature Body weight Body height Heart rate Oxygen saturation Oxygen saturation in Arterial blood by Pulse oximetry Respiratory rate Systolic blood pressure Diastolic blood pressure Provider Name and Address Organization Details Last Updated DateTime 4 98.7 [degF] 93419.9 84 g 160.02 cm 80 /min 99 % 99 % 18 /min 117 mm[Hg] 67 mm[Hg] Not Available [employer] 4 17:07:34 Social History None recorded. Functional Status None recorded. Mental Status None recorded. Family History Nothing Reported. Medical History No medical history recorded. Gynecological HistoryNo gynecological history recorded. Obstetrics History GPAL:G 0 P 0 0 0 0 Past Encounters Encounter ID Performer Location Encounter Start Date Encounter Closed Date Diagnosis/Indication Diagnosis SNOMED-CT Code Diagnosis ICD10 Code Diagnosis Note [id number] Wild Mendoza MD Main - [facility] [address] [place] [address] 06/12/2023 13:36:18 06/12/2023 18:56:08 Contusion of left lower leg [id number] 9510438 S80.12XA This 77-year-ol d female bruised her left anterior lower leg when getting out of the bathtub yesterday. She appears to has a bruise with no deformity. She is taking blood thinners. I recommende d ice packs and elevation. She will follow-up with her PCP for any persistent symptoms. The patient agreed with this plan. [id number] Amina Fatima MD Main - [address] [address] 02/29/2024 17:46:24 03/01/2024 00:46:10 Dysuria 63332144 R30.0 [id number] Kimmy Chang MD Main - [facility] [address] [place] [address] 04/09/2024 16:51:24 04/09/2024 22:30:06 Urinary symptoms 441817385 R39.9 Increased frequency of urination 931391130 R35.0 Health Concerns Section Related Observation LastModified by Organization Detai ls LastModified Time None Recorded Concern Status LastModified by Organization Details LastModified Time None Recorded Advance Directives Directive None Recorded Payers Encounter Date Sequence Insurance Name Policy Number Policy Martinez Covered Member ID Martinez Member ID Guarantor Name 06/12/2023 1 [facility] - DOS ON OR AFTER 2022 - DUAL ELIGIBLE - ASSISTED OPTIONS AND ONE CARE (MEDICARE REPLACEMENT/ADV ANTAGE - HMO) Leonie Corea [id number] Leonie Corea 02/29/2024 1 [facility] - DOS ON OR AFTER 2022 - DUAL ELIGIBLE - ASSISTED OPTIONS AND ONE CARE (MEDICARE REPLACEMENT/ADV ANTAGE - HMO) Leonie Corea [id number] Leonie Corea 04/09/2024 1 [facility] - DOS ON OR AFTER 2022 - DUAL ELIGIBLE - ASSISTED OPTIONS AND ONE CARE (MEDICARE REPLACEMENT/ADV ANTAGE - HMO) Leonie Corea [id number] Leonie Corea Notes Date Note Type Note Provider Name and Address Organization Details Recorded Time 06/12/2023 text/html CRC Nurse Triage Notes (Odessa Perez): Reason For Request: Fall Chief Complaints: Injury PMH: Heart Disease, Diabetes, Hypertension Allergies: Penicillin, Lidocaine, Morphine Comments: Called back member and care program director for c/o falling yesterday when getting out [...] but no call back yet. Verified name//address. [facility] [address] [facility],[address], [place], [address], [employer] 06/12/2023 13:41:12 02/29/2024 text/html CRC Nurse Triage Notes (Velia Shields): Reason For Request: UTI Patient Reports: Painful urination; Frequent and increased urination with flank pain; Painful urination with or without fever Denies: Inability to fully empty bladder Chief Complaints: Urinary symptoms, Diabetes-related PMH: Coronary Artery Disease, Hypertension, Diabetes Mellitus Type 2 Comments: [employer] verified the name//address and phone number.Patient is [...] s/s and seek emergency treatment if needed Inventory Clerk Organization Information for Denilson Diaz Business Legal Name: [employer] ? Address: [address] [place] [address], Director Of Surgery: Tobin Mclain MD CLIA No.: [id number] Inventory Clerk POC Test Results from Denilson Diaz Urine Dipstick (17:44:16) Urine leukocytes: + ANT Urine nitrites: - NIT Urine urobilinogen: - URO Urine protein: +/- PRO Urine pH: 5.0 pH Urine blood: +++ BLO Urine specific gravity: 1.010 SG Urine ketones: - KET Urine bilirubin: +/- FRANTZ Urine glucose: - GLU .................. .................. .................. .................. .................. .................. .................. ............... Inventory Clerk Note From Denilson Diaz: [facility] visit for female pt. Pt presents with her daughter at home. Daughter reports pt had onset of burning with urination yesterday in addition to urinary frequency. Daughter also questioning some possible confusion. V/S taken as listed. Pt afebrile. Pt was able to provide urine specimen with dipstick analysis showing leukocytes and blood. Urine culture specimem obtained. Consulted with [facility] Dr. Fatima who started pt on antibiotics and requested urine culture sent to [facility]. Reviewed red flags for ED with pt and daughter. Pt education provided. [facility] Lab Orders: urinalysis, dipstick: Performed .................. .................. .................. .................. .................. .................. .................. ............... [facility] Consulted: Amina Fatima .................. .................. .................. .................. .................. .................. .................. ............... Disposition: Fulfilled Amina Fatima MD [address] [place] [address],[address], [place], [address], [employer] 02/29/2024 19:43:53 04/09/2024 text/html CRC Nurse Triage Notes (Ben [...] Mellitus Type 2, Chronic Kidney Disease Comments: [employer] verified the patient's name//address and phone number. [...] emergency treatment if needed -Lupe Garza RN Inventory Clerk Organization Information for Laura Woody Business Legal Name: [employer]? ? Address: [address] [place] [address], Director Of Surgery: Tobin Mclain MD CLIA No.: [id number] Inventory Clerk POC Test Results from Laura Woody Blood Glucose Measurement (17:14:05) Blood Glucose: 220 [...] found under Documents section. Kimmy Chang MD [address] [place] [address],[address], [place], [address], KAM[facility]AN - [employer] 04/09/2024 22:48:45 OBGyn Episode No OBEpisode recorded.
--- OUTSIDE RECORDS SUMMARY | 2024-05-01 16:48 | XMS_ITS | Clinical Summary ---
Author Organization [facility] Address [address] [place] [address] Care Team Providers Care Supervisor Contact And Service Clerks Name Role Phone Massimo Mcclellan Primary Care Provider [phone] Source Comments PLEASE NOTE, if this patient is a minor, it may be UNLAWFUL to discuss sensitive information that is contained in these records (such as FAMILY PLANNING, MENTAL HEALTH or SUBSTANCE ABUSE) with the minor patient's parent or other person without the patient's specific authorization.[facility] Allergies Active Allergy Reactions Criticality Noted Date Comments Bee Sting Hives,Itching,Rash,S welling Low 08/08/2022 Codeine Phosphate 06/23/2021 Other reaction(s): Unknown Enalapril Other (See Comments) High 08/07/2020 Hyperkalemia per patient reports Lidocaine Itching High 07/19/2017 Other reaction(s): Hives/Urticaria, patches, Rash/Dermatitis Other Reaction(s): hives Morphine Itching,Rash High 11/07/2017 Other reaction(s): itchy, Unknown Other Reaction(s): itchy Penicillins Hives,Itching,Nausea and Vomiting,Swelling High 12/22/2015 Other reaction(s): Hives/Urticaria, RASH, Rash/Dermatitis, Unknown Sulfamethoxazole-Trime thoprim 08/08/2022 Other reaction(s): hyperkalemia Hyperkalemia when used together with lisinopril Medications blood-glucose meter monitoring kit FREESTYLE LITE TEST STRIP, See Instructions, # 150 Unknown, 11 Refills, Maintenance, CHECK UP TO 5 TIMES DAILY. E11.65, 02/11/22 16:33:00 EDT, 160, cm, 02/01/22 16:14:00 EDT, Height, 78, kg, 01/14/22 19:37:00 EDT, Dry Weight 2020 Active loratadine (CLARITIN) 10 mg tablet daily Active albuterol HFA (VENTOLIN HFA) 90 mcg/actuation inhalerIndicatio ns:Uncomplicated asthma, unspecified asthma severity, unspecified whether persistent Inhale 2 Puffs into the lungs every 4 (four) hours as needed for shortness of breath or wheezing 18 g 5 2022 Active artificial tears,hypromello se, (GENTEAL) 0.3 % ophthalmic solution Apply 1 Drop to eye 4 (four) times daily 15 mL 2 2022 Active nitroglycerin (NITROSTAT) 0.3 mg SL tablet COLOQUE 1 TABLETA UNDER THE TONGUE EVERY 5 MINUTES, UP TO 3 DOSES CUANDO SEA NECESARIO PARA EL DOLOR DEL PECHO 300 Tablet 1 2022 Active TRELEGY ELLIPTA 100-62.5-25 mcg inhaler INHALE UN SOPLIDO INTO THE LUNGS TODOS LOS HDZ 60 Each 2 2023 Active diclofenac sodium (VOLTAREN) 1 % gelIndications:A cute shoulder pain, unspecified laterality APPLY 2 G TOPICALLY 2 (TWO) TIMES DAILY. 300 g 1 2023 Active diaper,brief,jarret lt,disposableInd ications:Urinary incontinence without sensory awareness Use one brief three time daily for continence care. 96 Each 2023 Active albuterol HFA 90 mcg/actuation inhaler INHALE 2 PUFFS INTO THE LUNGS EVERY 6 HOURS NEEDED FOR SHORTNESS OF BREATH OR WHEEZING 8.5 Each 3 2023 Active blood pressure kit med and lrgIndications:P rimary hypertension Goal < 140/90 1 Kit 2023 Active MISCELLANEOUS MEDICAL SUPPLY MISCIndications: Primary hypertension 78 year old female with hypertension - requiring daily bp monitoring - please dispense 1 universal blood pressure cuff kit x 99 years -BMI 28.34 1 Each 2023 Active glucose 4 gram chewable tabletIndication s:Type 2 diabetes mellitus with diabetic nephropathy, with long-term current use of insulin (HCC-CMS),Type 2 diabetes mellitus with diabetic peripheral angiopathy without gangrene, with long-term current use of insulin ([facility]) [facility]/pharmacy #[id number] [place], [place] [phone] 100 Each 4 Days Supply: 25Sig: CHEW 4 TABLETS NEEDED FOR BLOOD SUGAR LESS THAN 70.Source: 2 Outside SourcesAuthorized by: CHANDRAKANT WRIGHT 2023 Active blood sugar diagnostic stripsIndication s:Type 2 diabetes mellitus with diabetic nephropathy, with long-term current use of insulin ([facility]),Type 2 diabetes mellitus with diabetic peripheral angiopathy without gangrene, with long-term current use of insulin ([facility]) Use to test blood glucose three times daily. (Freestyle Lite) 100 Each 2023 Active lancets (FREESTYLE LANCETS) 28 gaugeIndications :Type 2 diabetes mellitus with diabetic nephropathy, with long-term current use of insulin ([facility]),Type 2 diabetes mellitus with diabetic peripheral angiopathy without gangrene, with long-term current use of insulin ([facility]) Use to test blood glucose three times daily. (Freestyle Lancets) 100 Each 2023 Active alcohol swabsIndications :Type 2 diabetes mellitus with diabetic nephropathy, with long-term current use of insulin ([facility]),Type 2 diabetes mellitus with diabetic peripheral angiopathy without gangrene, with long-term current use of insulin ([facility]) Use to test blood glucose three times daily. 100 Each 2023 Active LORazepam (ATIVAN) 0.5 mg tablet Take 1 Tablet by mouth 3 (three) times daily as needed for anxiety or sleep 90 Tablet 1 2023 Active acetaminophen (TYLENOL) 500 mg tabletIndication s:Other diabetic neurological complication associated with type 2 diabetes mellitus (HCC-CMS),Fibrom yalgia,Osteoarth ritis, unspecified osteoarthritis type, unspecified site Take 2 Tablets by mouth every 6 (six) hours as needed for pain 60 Tablet 2 2023 Active glucagon (BAQSIMI) 3 mg/actuation spry PLACE 3 MG INTO THE NOSTRIL(S) EVERY MORNING 2 Each 2 2023 Active naloxone (NARCAN) 4 mg/actuation nasal spray Place 1 [place] into the nostril(s) as needed for opioid reversal (Overdose) 2 Each 2023 Active diaper,brief,jarret lt,disposableInd ications:Urinary incontinence without sensory awareness Use one large brief up to 3 times daily. 120 Each 11 2023 Active nut.tx.gluc.into l,lac-free,soy (GLUCERNA ADVANCE) liqdIndications: Primary hypertension,Hyp ercholesterolemi a,Type 2 diabetes mellitus without complication, with long-term current use of insulin (HCC-CMS),Urinar y incontinence without sensory awareness,Seizur e disorder (HCC-CMS),Modera te vascular dementia, unspecified whether behavioral, psychotic, or mood disturbance or anxiety (HCC-CMS),Oxygen dependent,Hyperp arathyroidism (HCC-CMS),Esopha geal varices without bleeding, unspecified esophageal varices type (HCC-CMS),Cirrho sis of liver without ascites, unspecified hepatic cirrhosis type (HCC-CMS),Periph eral venous insufficiency,Os teopenia, unspecified location,Iron deficiency Take 1 Can by mouth 2 (two) times a day 237 mL 2023 Active triamcinolone (KENALOG) 0.025 % cream [facility]/pharmacy #[id number] [place], [place] [phone] 60 g 0 Days Supply: 10Sig: APLIQUE AL JACOBO AFECTADA TOPICALLY DOS VECES AL D A POR 10 D ASSource: 2 Outside SourcesAuthorized by: THO HERNANDEZ 2023 Active montelukast (SINGULAIR) 10 mg tablet Take 1 Tablet by mouth nightly at bedtime (Prescribed by lumber straightener Dr. Berkowitz) 2023 Active esomeprazole (NEXIUM) [address] capsule TOME GAGE CAPSULA TODOS LOS HDZ EN LA MANANA ANTES DEL DESAYUNO 90 Capsule 1 2023 Active isosorbide mononitrate ER (IMDUR) 30 mg 24 hr tabletIndication s:Primary hypertension,Per ipheral venous insufficiency TOME GAGE TABLETA POR VIA ORAL CADA MANANA 90 Tablet 2 2023 Active insulin aspart (NOVOLOG FLEXPEN U-100 INSULIN) 100 unit/mL (3 mL)Indications:T ype 2 diabetes mellitus with diabetic peripheral angiopathy without gangrene, with long-term current use of insulin ([facility]) Inject 2-6 Units into the skin 3 (three) times daily before meals (Do not use if blood glucose is less than 100 mg/dL) - max 18 units/day 15 mL 3 2023 Active tiZANidine (ZANAFLEX) 2 mg capsuleIndicatio ns:Fibromyalgia, Type 2 diabetes mellitus with other diabetic neurological complication ([facility]) TOME GAGE CAPSULA GEGE VECES AL GARY 270 Capsule 1 2023 Active busPIRone (BUSPAR) 15 mg tablet TAKE 1/3- 1/2 HALF TABLET IN THE MORNING AND IN P.M. NEEDED & 1 TAB AT AL ACOSTARSE 180 Tablet 2 2023 Active ondansetron ODT (ZOFRAN-ODT) 4 mg disintegrating tabletIndication s:Nausea Take 1 Tablet by mouth every 8 (eight) hours as needed for nausea 31 Tablet 1 2023 Active sennosides (SENOKOT) 8.6 mg tabletIndication s:Constipation, unspecified constipation type Take 2 Tablets by mouth nightly at bedtime as needed for constipation 30 Tablet 2023 Active apixaban (ELIQUIS) 5 mg tab Take 1 Tablet by mouth 2 (two) times Daily (Prescribed by lumber straightener - Dr. Michael Berkowitz) 2023 Active amLODIPine (NORVASC) 10 mg tabletIndication s:Essential hypertension Take 1 Tablet by mouth every morning For blood pressure. 90 Tablet 1 2023 Active atorvastatin (LIPITOR) 20 mg tabletIndication s:Type 2 diabetes mellitus with diabetic peripheral angiopathy without gangrene, with long-term current use of insulin ([facility]),Mixed hyperlipidemia Take 1 Tablet by mouth nightly at bedtime stop pravastatin 10 mg 90 Tablet 1 2023 Active escitalopram (LEXAPRO) 20 mg tablet TOME 1 TABLETA POR VIA ORAL TODOS LOS HDZ 90 Tablet 1 2023 Active levocetirizine (XYZAL) 5 mg tablet Take 1 Tablet by mouth every evening [facility]/pharmacy #[id number] [place], [place] [phone] 90 Each 0 Days Supply: 90Sig: TAKE 1 TABLET BY MOUTH DAILY BEFORE DINNER NEEDED FOR ALLERGIESSource: 2 Outside SourcesAuthorized by: ANDREAS GARCÍA 90 Tablet 1 2023 Active famotidine (PEPCID) 40 mg tablet TOME GAGE TABLETA POR VIA ORAL AT NOCHE AL ACOSTARSE CUANDO SEA NECESARIO PARA LA ACIDEZ 90 Tablet 1 2023 Active insulin degludec (TRESIBA FLEXTOUCH U-200) 200 unit/mL (3 mL)Indications:T ype 2 diabetes mellitus with diabetic peripheral angiopathy without gangrene, with long-term current use of insulin ([facility]) Inject 12 Units into the skin nightly at bedtime 9 mL 5 2023 Active acetaminophen (TYLENOL 8 HOUR) 650 mg CR tabletIndication s:arthritic pain Take 1 Tablet by mouth every 8 (eight) hours as needed for pain Indications: pain associated with arthritis 90 Tablet 1 2023 Active ferrous sulfate 325 mg (65 mg iron) tabletIndication s:Iron deficiency TAKE 1 TABLET BY MOUTH ONCE DAILY WITH BREAKFAST 90 Tablet 1 2024 Active oxyCODONE (ROXICODONE) 5 mg tabletIndication s:Osteoarthritis , unspecified osteoarthritis type, unspecified site,Fibromyalgi a,Diabetic polyneuropathy associated with type 2 diabetes mellitus ([facility]) Take 2 Tablets by mouth every 6 (six) hours as needed for pain for up to 28 days 224 Tablet 05/28 Active ferrous sulfate 325 mg (65 mg iron) tabletIndication s:Iron deficiency TAKE 1 TABLET BY MOUTH ONCE DAILY WITH BREAKFAST 90 Tablet 1 04/24 Discontinued oxyCODONE (ROXICODONE) 5 mg tabletIndication s:Osteoarthritis , unspecified osteoarthritis type, unspecified site,Fibromyalgi a,Diabetic polyneuropathy associated with type 2 diabetes mellitus ([facility]) Take 2 Tablets by mouth every 6 (six) hours as needed for pain for up to 28 days 224 Tablet 12/23/ 2024 01/18 /2025 Discontinued( Reorder (E-Cancel Not Sent)) Active Problems Problem Noted Date Diagnosed Date Mixed stress and urge urinary incontinence 11/19 Food insecurity 10/25/2023 Hx laparoscopic cholecystectomy 08/08/2022 08/08/2022 H/O: hysterectomy 08/08/2022 08/08/2022 Obesity 08/08/2022 08/08/2022 Arteriovenous malformation of large intestine 08/08/2022 Overview (08/08/2022): Colonoscopy July 2014: hyperplastic polyp and multiple nonbleeding AVM in the cecum and right colon Colonoscopy July 2014: hyperplastic polyp and multiple nonbleeding AVM in the cecum and right colon Cervical facet syndrome 08/08/2022 08/09/19 Diabetic peripheral angiopathy ([facility]) 023 08/08/2022 Dry skin 08/08/2022 08/08/2022 Dysphagia 08/08/2022 08/08/2022 Incontinence of urine 08/08/2022 08/08/2022 Early onset Alzheimer's dementia ([facility]) 08/0808/08/2022 Epigastric pain 08/08/2022 08/08/2022 Left ventricular hypertrophy 08/08/202204/2022 Overview (03/05/2024): 12/20/23 at [facility] Cardio Chest pain Improved with Imdur; unclear if actually shoulder pain Echo showed LVEV 70-75%. CT heart w/ no evidence of hemodynamically significant coronary artery disease. Admits not not staying hydrated and work on it. Continue Norvasc, Imdur. Can consider another stress test but as pain appears improved and shoulder/neck related, discussed and will wait for now. Continue pravastatin. 06/06/23 Obtain echo Repeat stress testing this year Continue Norvasc and Imdur Consider adding statin to regimen in future, discussed with patient, would not like to start right now Mild to moderate aortic stenosis.... clinically does not appear to have worsened. 03/08/23 ECHO showed EF 70-75%, no definite regional wall motion abnormalities, mild to moderate . Nuclear stress test - no concern for ischemia Continue Norvasc and Imdur CT coronary - no evidence of hemodynamically significant coronary artery disease, moderate nearly circumferential calcific stenosis in the mid RCA, 50-69%. Repeat Echo Per ECHO 05/24/1718 Grade I, mild diastolic dysfunction with impaired LV relaxation, which may be normal for the patient's age. halfway current use of anticoagulant therapy 0 08/08/2022 08/08/2022 Memory impairment 08/08/2022 08/08/2022 Myofascial muscle pain 08/08/2022 JENNIFER (obstructive sleep apnea) 08/08/2022 Oxygen dependent 08/08/2022 08/08/2022 Restless leg syndrome 08/08/2022 08/08/2022 Subclinical hypothyroidism 08/08/202208/08 Unspecified cirrhosis of liver ([facility]) 023 08/08/2022 Vascular dementia ([facility]) 08/08/2022 05/0 04/2022 Cataract 11/07/2017 08/08/2022 Overview (08/08/2022): left catarct surgery on 08/28/08 by SURGEON: Tana Coronado M.D. left catarct surgery on 08/28/08 by SURGEON: Tana Coronado M.D. CKD (chronic kidney disease) stage 3, GFR 30-59 ml/min ([facility]) 11/07/2017 08/08/2022 Meniere disease 11/07/2017 08/08/2022 Overview (08/08/2022): 2016 Dr Baker Pulmonary hypertension ([facility]) 11/07/2017 08/08/2022 Overview (08/08/2022): b/l submassive PE diagnosed on Dec [address] [facility] b/l submassive PE diagnosed on Dec [address] [facility] 2016 DAVID RVSP- 46 Tubular adenoma of colon 11/07/2017 023 Overview (08/08/2022): 2005 Hyperparathyroidism ([facility]) 08/29/2017 Overview (08/08/2022): Right lower parathyroidectomy. 06/16/08 SURGEON: Danny Marie M.D. SMALLTALK DEVELOPER: Naima Bowling M.D. Kidney stone 08/29/2017 08/08/2022 Hyperlipidemia LDL goal <70 08/29/2017 05/0 04/2022 Essential hypertension 08/29/2017 Seizure disorder ([facility]) 08/29/201708/08 Overview (08/08/2022): Not on medication Viral hepatitis C 08/29/2017 08/08/2022 Osteoarthrosis 08/23/2017 08/08/2022 Overview (08/08/2022): EGD on 06/24/16 by GI, Dr Damien caballero gastritis and esophageal varices grade 1 Lumbar spine Allergic rhinitis 08/23/2017 08/08/2022 Depression 08/23/2017 08/08/2022 Asthma-chronic obstructive p ulmonary disease overlap syndrome ([facility]) 08/23/2017 08/08/2022 Type 2 diabetes mellitus wit h diabetic peripheral angiopathy without gangrene, with long-term current use of insulin ([facility]) 08/23/2017 08/08/2022 Overview (03/05/2024): DM dx: 51 years old per patient reports Glucometer: Freestyle Lite (denies interest in CGM) Current Diabetes RX: Tresiba U-200 - inject 12 units daily at bedtime Insulin aspart - inject 2-6 units three times daily before meals (do not use if BG <100 mg/dL - max 18 units/day) MADDIE-I/ARB: Enalapril hyper K per patient reports Statin: atorvastatin 20 mg daily every evening Pneumococcal vaccine: PCV13 (05/12/14) PPSV23 (11/10/10, 05/20/04) Diabetes foot exam: 02/21/24 at [facility] - notes on file Diabetes retinal exam: Scheduled 03/15/24 at [facility] Endocrinology: 11/24/22 Start Tradjenta 5 mg Continue Tresiba 30 units daily at bedtime Decrease Novolog up to 3 times daily before meals (100-150: 4 units^50 by 1 unit, max 9 units for BG >351 mg/dL) Schedule annual eye exam Hyperkalemia with enalapril so will avoid MADDIE/ARBs . Hx of ASCVD, benefit from SGLT2, but concerns for dehydration or GLP-1 agonist but has limited appetite 01/26/23 Continue Tradjenta 5 mg daily Continue Tresiba 15 units daily at bedtime Decrease Novolog per scale up to 3 times per day before meals (150-200: 3 units^50 by 1 unit, max 7 units for BG >351 mg/dL) Insomnia 08/23/2017 08/08/2022 History of DVT (deep vein thrombosis) 07/19/2017 08/08/2022 Overview (08/08/2022): 12/2015, involving 2 of 2 peroneal veins, [facility] History of pulmonary embolism 07/19/2017 Overview (08/08/2022): Bilateral, 12/2015, [facility] Tricuspid valve insufficiency 05/24/2017 Overview (03/05/2024): 12/20/23 at [facility] Cardio Chest pain Improved with Imdur; unclear if actually shoulder pain Echo showed LVEV 70-75%. CT heart w/ no evidence of hemodynamically significant coronary artery disease. Admits not not staying hydrated and work on it. Continue Norvasc, Imdur. Can consider another stress test but as pain appears improved and shoulder/neck related, discussed and will wait for now. Continue pravastatin. 06/06/23 Obtain echo Repeat stress testing this year Continue Norvasc and Imdur Consider adding statin to regimen in future, discussed with patient, would not like to start right now Mild to moderate aortic stenosis.... clinically does not appear to have worsened. 03/08/23 ECHO showed EF 70-75%, no definite regional wall motion abnormalities, mild to moderate . Nuclear stress test - no concern for ischemia Continue Norvasc and Imdur CT coronary - no evidence of hemodynamically significant coronary artery disease, moderate nearly circumferential calcific stenosis in the mid RCA, 50-69%. Repeat Echo Per ECHO 05/24/1718 Grade I, mild diastolic dysfunction with impaired LV relaxation, which may be normal for the patient's age. Per ECHO 05/24/17 Trace mitral regurgitation , mild TC regurgitation w no significant valve pathology Diastolic dysfunction 05/24/2017 08/08/2022 Overview (03/05/2024): 12/20/23 at [facility] Cardio Chest pain Improved with Imdur; unclear if actually shoulder pain Echo showed LVEV 70-75%. CT heart w/ no evidence of hemodynamically significant coronary artery disease. Admits not not staying hydrated and work on it. Continue Norvasc, Imdur. Can consider another stress test but as pain appears improved and shoulder/neck related, discussed and will wait for now. Continue pravastatin. 06/06/23 Obtain echo Repeat stress testing this year Continue Norvasc and Imdur Consider adding statin to regimen in future, discussed with patient, would not like to start right now Mild to moderate aortic stenosis.... clinically does not appear to have worsened. 03/08/23 ECHO showed EF 70-75%, no definite regional wall motion abnormalities, mild to moderate . Nuclear stress test - no concern for ischemia Continue Norvasc and Imdur CT coronary - no evidence of hemodynamically significant coronary artery disease, moderate nearly circumferential calcific stenosis in the mid RCA, 50-69%. Repeat Echo Per ECHO 05/24/1718 Grade I, mild diastolic dysfunction with impaired LV relaxation, which may be normal for the patient's age. Esophageal varices (HCC-CMS) 06/24/201604/2022 Overview (08/08/2022): endoscopy 10/05/2018 w non bleeding grade 1 esophageal varicesEGD on 06/24/16 by GI, Dr Damien caballero gastritis and esophageal varices grade 1 06/2106 EGD, Grade 1 endoscopy 10/05/2018 w non bleeding grade 1 esophageal varicesEGD on 06/24/16 by GI, Dr Damien caballero gastritis and esophageal varices grade 1 Right ventricular dilation 12/22/201508/08 Overview (08/08/2022): TTE 12/22/[address] [facility]: RV dilatation, RVSP 46 TTE 12/22/[address] [facility]: RV dilatation, RVSP 46 Anemia 12/21/2015 08/08/2022 Deep vein thrombosis (DVT) ([facility]) 12/21/2015 08/08/2022 Overview (08/08/2022): LE US- DVT involving 2 of 2 peroneal veins diagnosed on Dec [address] [facility] LE US- DVT involving 2 of 2 peroneal veins diagnosed on Dec [address] [facility] Positive PPD 10/09/2014 08/08/2022 Overview (08/08/2022): Never treated Calcium oxalate crystals present in urine 201308/08/2022 Osteopenia 11/16/2012 08/08/2022 Overview (08/08/2022): DEXA 11/01/21 AP Spine (L1-L4) -0.8 Normal Femoral Neck (Left) -1.4 Osteopenia Total Hip (Left) -0.8 Normal Total Forearm (Left) -1.2 1/3 Forearm (Left) -1.5 Osteopenia UD Forearm (Left) -0.2DEXA 10/26/15 AP Spine (L1-L4) -1.7 Osteopenia Femoral Neck (Left) -1.8 Osteopenia Total Hip (Left) -0.7 NormalDEXA 11/16/12 osteopenia AP spine -2.4 , osteopenia total hip -1.2 , osteopenia femoral neck-2.2 Fibromyalgia 09/12/2012 08/08/2022 Overview (08/08/2022): 09/14/11 lumbar MRI Small central and superior disc extrusion at T12/L1 of doubtful clinical significance. 3 mm L4/5 spondylolisthesis without stenosis or focal nerve root compression.Minor degenerative changes.MRI lumbar 02/29/08 transitional sacralized L5 segment. Minimal L4/ L5 spondylolisthesis and moderate facet arthropathy with no stenosis. Minor degenerative changes elsewhere. 09/14/11 lumbar MRI Small central and superior disc extrusion at T12/L1 of doubtful clinical significance. 3 mm L4/5 spondylolisthesis without stenosis or focal nerve root compression.Minor degenerative changes.MRI lumbar 02/29/08 transitional sacralized L5 segment. Minimal L4/ L5 spondylolisthesis and moderate facet arthropathy with no stenosis. Minor degenerative changes elsewhere. Peripheral venous insufficiency 10/31/2011 08/08/2022 Diabetic neuropathy ([facility]) 09/19/2007 Sciatica 05/24/2004 08/08/2022 Tubular adenoma 04/10/2004 08/08/2022 Overview (08/08/2022): catherine doherty July 2009 exc for 2 hyperplastic polypsColonoscopy 2004 at [facility] per letter of Dr Amor Dobbins Tubular adenoma 04/10/2004 08/08/2022 Overview (08/08/2022): catherine bessy July 2009 exc for 2 hyperplastic polypsColonoscopy 2004 at [facility] per letter of Dr Amor Dobbins Encounters Date Type Department Care Team Description 03/04/2024 3:00 PM EST Telemedicine Visit [address] [id number] Darwin Encinas, GeovannyD Type 2 diabetes mellitus with diabetic peripheral angiopathy without gangrene, with long-term current use of insulin ([facility]) (Primary Dx); Essential hypertension; Hyperlipidemia LDL goal <70; Diastolic dysfunction; Left ventricular hypertrophy; Tricuspid valve insufficiency, unspecified etiology 03/04/2024 Travel 02/27/2024 Interim Notes [id number] [place] [address] Jalyn De Leon [place] from Last 3 Months Immunizations Name Administration Dates Next Due COVID-19,SARS-COV-2 VACCINE, UNSPECIFIED (US Admin) 05/25/2022,09/15/2021 Flu, High Dose, 65y+, Fluzon e High Dose 05/08/2023 Flu, Preservative Free 12/25/2015 INFLUENZA, SEASONAL, INJECTABLE 05/25/19 23,03/09/2021,02/23/2021,02/24,01/09/2020,01/16/2019,01/17/2018 ,01/04/2017,03/04/2015,01/22/2014,05/2012,01/31/2011,02/01/2010, 9,02/09/2006,05/06/2004 Influenza (FLUZONE), high-do se, trivalent, PF 12/27/2023 Moderna COVID-19 (Spikevax), Mrna, Lnp-s, Pf, 50 Mcg/0.5 Ml, 12yr+ 02/14/2023 PFIZER COVID VACCINE, PURPLE CAP, 12+ 03/18/2021 PNEUMOCOCCAL CONJUGATE PCV 13 05/12/2014 PNEUMOCOCCAL POLYSACCHARIDE PPV23 11/10/2010,01/2005 Pfizer COVID-19 (Comirnaty), Mrna, Lnp-s, Pf, Uziel-sucrose, 30 Mcg/0.3 Ml, 12yr+ 12/27/2023 TDAP 05/12/2014 Td (adult) unspecified 11/10/2010 Td(adult),2 Lf tetanus toxoid,preservative free 11/10/2010 ZOSTER VACCINE, RECOMBINANT (SHINGRIX) 2,09/15/2021 Zoster, Live Vaccine (Zostavax) 10/16/2012 Social History Tobacco Use Types Packs/Day Years Used Date Smoking Tobacco: Never Smokeless Tobacco: Never Tobacco Cessation:Counseling Given: Not Answered Alcohol Use Standard Drinks/Week Comments Not Currently 0 (1 standard drink = 0.6 oz pur e alcohol) Social Connections Answer Date Recorded Connectedness 2 10/25/2023 Financial Resource Strain Answer Date R ecorded Financial Resource Strain 1 2023 Stress Answer Date Recorded Stress 2 10/25/2023 Physical Activity Answer Date Recorded Physical Activity 0 11/09/2020 Food Insecurity Answer Date Recorded Food 2 10/25/2023 Transportation Needs Answer Date Record ed Transportation 1 10/25/2023 Housing Stability Answer Date Recorded Housing 1 10/25/2023 Safety and Environment Answer Date Cornelio rded Safety 1 05/08/2023 Utilities Answer Date Recorded Utilities 1 10/25/2023 Employment Answer Date Recorded Stress 0 08/08/2022 Comments No Sex and Gender Information Value Date Recorded Sex Assigned at Female 05/19/2022 6:04 AM PST Legal Sex Female 8:10 AM PDT Gender Identity Female 05/19/2022 6:04 AM PST Sexual Orientation Straight 05/19/2022 6: 04 AM PST Last Filed Vital Signs Vital Sign Reading Time Taken Comments Blood Pressure 100/60 12/28/2023 11:01 AM EDT Pulse 79 12/28/2023 11:01 AM EDT Temperature 36.8 ??C (98.3 ??F) 12/27/2023 3:04 PM ED T Respiratory Rate 16 12/28/2023 11:01 AM EDT Oxygen Saturation 97% 12/28/2023 11:01 AM EDT Inhaled Oxygen Concentration - - Weight 69.9 kg (154 lb) 12/28/2023 11:01 AM EDT Height 160 cm (5' 3 ) 12/28/2023 11:01 AM EDT Body Mass Index 27.28 12/28/2023 11:01 AM EDT Plan of Treatment Upcoming Encounters Date Type Department Care Team (Late st Contact Info) Description 05/06/2024 3:20 PM EST Office Visit [facility] [address] [place] [address] Darwin Encinas, PharmD [address] [place] [address] Health Maintenance Due Date Last Done Comments Dental Examination 1945 Urine Drug Screen 1944 Imm-Hepatitis A (1 of 2 - Ri sk 2-dose series) 07/06/1963 Imm-Hepatitis B (1 of 3 - Ri sk 3-dose series) 2004 Hepatocellular Carcinoma Scr eening (HCC) 04/23/2023 10/21/2022 Depression Monitoring 01/25/2024 10/25/2023 , 05/08/2023, 08/08/2022 Alcohol and Drug Screen 04/10/2024 05/08/19 24, 05/08/2023, 08/08/2022, Additional history exists Lipid Screening 05/08/2024 05/08/2023, 12/23/2015 Imm-DTaP/Tdap/Td (2 - Td or Tdap) 05/12/2024 05/12/2014, 11/10/2010, 11/10/2010 Diabetes HbA1c 07/23/2024 04/24/2024, 10/08, 07/26/2023, Additional history exists Diabetes Microalbumin (w/Creatinine) 07/25/2024 07/26/2023 Tobacco Screening 08/24/2024 08/25/2023 Diabetes Foot Exam 10/24/2024 10/25/2023 Falls Prevention 10/24/2024 10/25/2023 Serum Creatinine 10/24/2024 10/25/2023, 04/2022, 12/25/2015 TSH Monitoring 10/24/2024 10/25/2023, 08/08/2022 Medicare Annual Wellness Visit 12/26/2024 12/27/2023 , 08/08/2022 EGD (Upper Endoscopy) 08/08/2025 08/08/2022 Imm-Pneumococcal 65+ Completed 05/12/2014, 11/10/2010, 05/20/2004 Imm-Zoster, Recombinant Completed 12/09/19 22, 09/15/2021, 10/16/2012 Bone Density Screening Completed 11/22/2022 [id number] Completed 12/27/2023, 11/10/2022, 05/25/2022, Additional history exists Imm-Influenza Completed 12/27/2023, 04/11, 05/25/2022, Additional history exists Retinopathy Screening Discontinued 04/24/2024, 025 Procedures Procedure Name Priority Date/Time Associated Diagnosis Comments HEMOGLOBIN GLYCOSYLATED A1C Routine 04/24/2024 1:09 PM EST Type 2 diabetes mellitus with diabetic peripheral angiopathy without gangrene, with long-term current use of insulin ([facility]) EYE EXAM 04/24/2024 3:00 AM EST EYE EXAM 04/24/2024 3:00 AM EST REFERRAL SCANNED DOCUMENT 03/26/2024 3:00 AM EST OTHER ORDERS SCANNED DOCUMENT 03/05/2024 3:00 AM EST REFERRAL SCANNED DOCUMENT 03/04/2024 3:00 AM EST REFERRAL SCANNED DOCUMENT 02/12/2024 3:00 AM EST REFERRAL SCANNED DOCUMENT 02/12/2024 3:00 AM EST IMAGING SCANNED DOCUMENT 02/12/2024 3:00 AM EST TSH W/RFLX FREE T4 Routine 10/25/2023 11 :27 AM EDT Hyperparathyroidism ([facility]) Prediabetes COMPREHENSIVE METABOLIC PANEL Routine 10/25/2023 11:27 AM EDT Cirrhosis of liver without ascites, unspecified hepatic cirrhosis type ([facility]) Hyperparathyroidism ([facility]) Type 2 diabetes mellitus with diabetic peripheral angiopathy without gangrene, with long-term current use of insulin ([facility]) Diabetic mononeuropathy associated with type 2 diabetes mellitus ([facility]) Hepatitis C virus infection without hepatic coma, unspecified chronicity Resistant hypertension MICROALBUMIN/CREATINI NE RATIO, URINE, RANDOM Routine 07/26/2023 2:42 PM EDT Type 2 diabetes mellitus with diabetic nephropathy, with long-term current use of insulin ([facility]) LIPID PANEL Routine 05/08/2023 3:04 PM EST Hypercholesterolemia HISTORIC DEXA SCAN 11/22/2022 3: 00 AM EDT US ABDOMEN ULTRASOUND Routine 10/21/2022 3:00 AM EDT Abdominal pain, unspecified abdominal location UPPER GI ENDOSCOPY Routine 08/08/2022 11 :41 AM EDT Varices of esophagus determined by endoscopy ([facility]) from Last 3 Months or Most Recently Relevant to Health Maintenance Results * (ABNORMAL) HEMOGLOBIN GLYCOSYLATED A1C (04/24/2024 1:09 PM EST) HEMOGLOBIN A1C 8.7(H) <5.7 % of total Hgb [facility] Comment: For someone without known diabetes, a hemoglobin A1c value of 6.5% or greater indicates that they may have diabetes and this should be confirmed with a follow-up test. For someone with known diabetes, a value <7% indicates that their diabetes is well controlled and a value greater than or equal to 7% indicates suboptimal control. A1c targets should be individualized based on duration of diabetes, age, comorbid conditions, and other considerations. Currently, no consensus exists regarding use of hemoglobin A1c for diagnosis of diabetes for children. ?? Blood Blood / Unknown 04/24/2024 1 :09 PM EST 04/24/2024 1:09 PM EST Narrative [facility] - 04/25/2024 3:26 AM EST FASTING:NO us Darwin Encinas PharmD LAB - BLOOD DRAW Final Re sult [facility] [address] [place] [id number], [facility] [address] [place] [phone] * EYE EXAM (04/24/2024 3:00 AM EST) Only the most recent of2 resultswithin the time period is included. 04/24/2024 3:00 AM EST us Massimo PACHECO OTHER Edited Result - Final * REFERRAL SCANNED DOCUMENT (03/26/2024 3:00 AM EST) Only the most recent of4 resultswithin the time period is included. 03/26/2024 3:00 AM EST us Massimo PACHECO SCAN REFERRAL Final Result * OTHER ORDERS SCANNED DOCUMENT (03/05/2024 3:00 AM EST) 03/05/2024 3:00 AM EST us Massimo Mcclellan PA SCAN OTHER ORDERS Final Result * IMAGING SCANNED DOCUMENT (02/12/2024 3:00 AM EST) 02/12/2024 3:00 AM EST us Massimo Blackburnvais PA SCAN IMAGING Final Result * TSH W/RFLX FREE T4 (10/25/2023 11:27 AM EDT) TSH W/REFLEX TO FT4 2.80 0.40 - 4.50 mIU/L [facility] Blood Blood / Unknown 10/25/2023 1 1:27 AM EDT 10/25/2023 11:27 AM EDT us Massimo Mcclellan PA LAB - BLOOD DRAW Final Result [facility] [address] [place] [id number], [facility] [address] [place] [phone] * (ABNORMAL) COMPREHENSIVE METABOLIC PANEL (10/25/2023 11:27 AM EDT) GLUCOSE 118(H) 65 - 99 mg/dL [facility] Comment: ?Fasting reference interval For someone without known diabetes, a glucose value between 100 and 125 mg/dL is consistent with prediabetes and should be confirmed with a follow-up test. UREA NITROGEN (BUN) 16 7 - 25 mg/dL [facility] CREATININE (blood) 0.85 0.60 - 1.00 mg/dL [facility] EGFR 70 > OR = 60 mL/min/1. 73m2 [facility] BUN/CREATININE RATIO SEE NOTE: [facility] Comment: ?? Not Reported: BUN and Creatinine are within ?? reference range. ? SODIUM 142 135 - 146 mmol/L [facility] POTASSIUM 4.8 3.5 - 5.3 mmol/L [facility] CHLORIDE 104 98 - 110 mmol/L [employer] [place] [employer] CARBON DIOXIDE 29 20 - 32 mmol/L [employer] [facility] CALCIUM 9.5 8.6 - 10.4 mg/dL [facility] PROTEIN, TOTAL 7.0 6.1 - 8.1 g/dL [employer] [place] [employer] ALBUMIN 4.3 3.6 - 5.1 g/dL [facility] GLOBULIN 2.7 1.9 - 3.7 g/dL (calc) [facility] ALBUMIN/GLOBULI N RATIO 1.6 1.0 - 2.5 (calc) [employer] [place] [employer] BILIRUBIN, TOTAL 0.5 0.2 - 1.2 mg/dL [employer] [facility] ALKALINE PHOSPHATASE 87 37 - 153 U/L [employer] [facility] AST 16 10 - 35 U/L [employer] [facility] ALT 10 6 - 29 U/L [facility] Blood Blood / Unknown 10/25/2023 1 1:27 AM EDT 10/25/2023 11:27 AM EDT Massimo PACHECO LAB - BLOOD DRAW Final Result [facility] [address] [address], [facility] [address] [address] * MICROALBUMIN/CREATININE RATIO, URINE, RANDOM (07/26/2023 2:42 PM EDT) CREATININE, RANDOM URINE 140 20 - 275 mg/dL [facility] MICROALBUMIN 1.2 mg/dL [facility] [facility] Comment: Reference Range Not established MICROALBUMIN/CREA TININE RATIO, RANDOM URINE 9 <30 mg/g creat [facility] Comment: The ADA defines abnormalities in albumin excretion as follows: Albuminuria Category ?Result (mg/g creatinine) Normal to Mildly increased ?? <30 Moderately increased ? 30-299 Severely increased ? > OR = 300 The ADA recommends that at least two of three specimens collected within a 3-6 month period be abnormal before considering a patient to be within a diagnostic category. Urine Urine specimen / Unknown 07/26/2023 2:42 PM EDT 07/26/2023 2:43 PM EDT Yumi Milan PA-C LAB - NO BLOOD DRAW Final R esult [facility] [address] [place] [id number], [facility] [address] [phone] * (ABNORMAL) LIPID PANEL (05/08/2023 3:04 PM EST) CHOLESTEROL, TOTAL 197 <200 mg/dL [facility] HDL CHOLESTEROL 61 > OR = 50 mg/dL [facility] TRIGLYCERIDES 317(H) <150 mg/dL [facility] Comment: If a non-fasting specimen was collected, consider repeat triglyceride testing on a fasting specimen if clinically indicated. Lexi et al. J. of Clin. Lipidol. 2015;9:129-169. LDL-CHOLESTEROL 94 99 mg/dL (calc) [facility] Comment: Reference range: <100 Desirable range <100 mg/dL for primary prevention; ?? <70 mg/dL for patients with CHD or diabetic patients with > or = 2 CHD risk factors. LDL-C is now calculated using the Gilles-Espinoza calculation, which is a validated novel method providing better accuracy than the Friedewald equation in the estimation of LDL-C. Gilles SS et al. JESUS. 2013;310(19): 5650-5269 (http://education.[employer]/faq/BAE682) CHOL/HDLC RATIO 3.2 <5.0 (calc) [facility] NON-HDL CHOLESTEROL 136(H) <130 mg/dL (calc) [facility] Comment: For patients with diabetes plus 1 major ASCVD risk factor, treating to a non-HDL-C goal of <100 mg/dL (LDL-C of <70 mg/dL) is considered a therapeutic option. Blood Blood / Unknown 05/08/2023 3 :04 PM EST 05/08/2023 3:05 PM EST Massimo PACHECO LAB - BLOOD DRAW Final Result [facility] [address] [address], [facility] [address] [place] [address] * HISTORIC DEXA SCAN (11/22/2022 3:00 AM EDT) 11/22/2022 3:00 AM EDT us Massimo PACHECO IMG DXA Final Result * US ABDOMEN ULTRASOUND (CAPE COD) (10/21/2022 3:00 AM EDT) 10/21/2022 3:00 AM EDT us Massimo PACHECO IMG ULTRASOUND Edited Result - Final from Last 3 Months or Most Recently Relevant to Health Maintenance Insurance [facility] Member Subscriber Plan / Payer (Ef fective 2012-Present) Name:Leonie Corea Relation to Subscriber:Self Name:Leonie Corea Payer ID:[id number] Group ID:Not on file Type:Indemnity Address: [address] [place] [address] Care Teams Supervisor Contact And Service Clerks Relationship Specialty Start Date End Date Massimo Mcclellan PA [address] [place] [id number] PCP - General [facility] 05/13/22
--- OUTSIDE RECORDS SUMMARY | 2024-05-01 16:49 | XMS_ITS | Encounter Summary ---
Author Organization [facility] Address [address] [place] [address] Care Team Providers Care Land Conservation Specialist Name Role Phone Massimo Mcclellan Primary Care Provider [phone] Reason for Visit * Reason Comments DM Foot Care Encounter Details Date Type Department Care Team (Late st Contact Info) Description 04/25/2024 2:30 PM EST Office Visit Orthopedic Surgery - [place] [phone] [phone] Florian Mott, DPM [address] [address] Controlled type 2 diabetes with neuropathy (CMS/HCC) (Primary Dx); Pain in toes of both feet; Arthritis of both feet; Difficulty walking; Dermatophytosis, nail Social History Tobacco Use Types Packs/Day Years Used Date Smoking Tobacco: Never Assessed Sex and Gender Information Value Date Recorded Sex Assigned at Not on file Gender Identity Not on file Sexual Orientation Not on file Job Start Date Occupation Industry Not on file Not on file Not on file documented as of this encounter Last Filed Vital Signs Vital Sign Reading Time Taken Comments Blood Pressure - - Pulse - - Temperature - - Respiratory Rate - - Oxygen Saturation - - Inhaled Oxygen Concentration - - Weight 68.9 kg (152 lb) 04/25/2024 2:39 PM EST Height 160 cm (5' 3 ) 04/25/2024 2:39 PM EST Body Mass Index 26.93 04/25/2024 2:39 PM EST documented in this encounter Progress Notes * Florian Mott, DPM - 04/25/2024 2:30 PM EST Referring MD: leora Last PCP visit: 12/28/2023 IDENTIFIER: @TITLE@ Nahomy is a 78 y.o. year old female who presents for consultation. CC: Bilateral foot pain HPI: 78-year-old female returns to office with multiple forefoot deformities Patient states that they have been diabetic for the past few years and has some tingling numbness in her feet bilaterally Denies any history of ulceration, or infection. Patient would like to inquire about their pedal hygiene, as their toenails have become elongated and painful. Patient is not using antifungals at this time. Patient is wearing good supportive shoes at this time. Patient reports mild calluses that are becoming bothersome. Patient with minimal other pedal complaints at this time. Patient's FBS this AM was 157 Recent A1C is %. 8.3 ROS: GENERAL: Pt denies nausea, fever, vomiting, chills, or shortness of breath. Pt in NAD. CARDIOLOGY: pt denies chest pain, palpitations LUNGS: pt denies shortness of breath MUSCULOSKELETAL: See HPI, otherwise no joint pain or swelling, back pain, or muscle pain. SKIN: see HPI, otherwise no lesions, rash or itching NEURO: No persistent headache, weakness or numbness The remainder of the review of systems is noncontributory PAST MEDICAL HISTORY: Patient Active Problem List Diagnosis Allergic rhinitis Anxiety Asthma Cataract CKD (chronic kidney disease) stage 3, GFR 30-59 ml/min (CMS/HCC) Depression DM (diabetes mellitus), type 2 with renal complications (CMS/HCC) Esophageal varices (CMS/HCC) Fibromyalgia GERD (gastroesophageal reflux disease) Hepatitis C Hyperlipidemia Hyperparathyroidism (CMS/HCC) Hypertension Insomnia Kidney stone Meniere disease Osteoarthritis Osteopenia Positive PPD Pulmonary hypertension (CMS/HCC) Seizure disorder (CMS/HCC) Tubular adenoma of colon Type 2 diabetes mellitus with cataract (CMS/HCC) SOCIAL HISTORY: Social History Tobacco Use Smoking status: Not on file Smokeless tobacco: Not on file Substance Use Topics Alcohol use: Not on file ACTIVE MEDICATIONS: No outpatient medications have been marked as taking for the 04/25/24 encounter (Office Visit) with Florian Mott DPM. ALLERGIES: @ALL@ PHYSICAL EXAM: Height 1.6 m (63 ), weight 68.9 kg (152 lb). PODIATRIC EXAMINATION: GENERAL: Patient appears well nourished, with NAD. VASCULAR: Dorsalis pedis pulses are 2/4 bilaterally and Posterior tibial pulses are 2/4 bilaterally. Capillary filling time within normal limits the digits. No pallor on elevation or rubor on dependency. Positive hair growth. No varicosities. Denies rest pain or claudication pain. NEUROLOGICAL: Sharp/dull sensation intact, protective sensation intact on [place]. Multiple peripheral neuropathies bilaterally ORTHOPEDIC: Good muscle strength 5/5 of all flexors and extensors. Dorsi flexion of ankle ,10 degrees, plantar flexion WNL. No muscle atrophy. Arthritic changes of midfoot bilaterally with dorsal exostoses that are palpable. Rigid contractures of digits 2 through 5. Flexible flatfoot deformity bilaterally DERMATOLOGICAL:.No masses or skin lesions noted. Normal skin temperature, normal skin turgor. Nailsare elongated dystrophic discolored x 10 with subungual debris BIOMECHANICS: STJ ROM wnl, MTJ ROM wnl, 1st MPJ ROM wnl. IMPRESSION: 1. Controlled type 2 diabetes with neuropathy (CMS/HCC) 2. Pain in toes of both feet 3. Arthritis of both feet 4. Difficulty walking 5. Dermatophytosis, nail PLAN: Pt was seen and examined, history reviewed. Patient was educated on the importance of keeping tight glucose control in order limit chance for ulceration infection and amputation in the future Patient continues to suffer with arthritic change of the feet bilaterally. Patient encouraged to wear supportive shoe in order to limit breakdown of midtarsal joint Patient was encouraged to continue with the supportive devices during ambulatory activity in order to limit falls trips or injury Nail debridement performed to nails 1-5 bilateral as nails were described to be causing pain and difficulty for walking while in shoegear at their previous length. They were debrided in thickness andlength, with no incident. Clinical evidence of mycosis is documented which required active treatment. Patient expressed immediate relief. Patient is to RTC in 9 weeks Florian Mott DPM documented in this encounter Plan of Treatment Upcoming Encounters Date Type Department Care Team (Late st Contact Info) Description 06/27/2024 2:45 PM EDT Office Visit Orthopedic Surgery - [place] [address] [phone] Florian Mott DPM [address] [address] documented as of this encounter Visit Diagnoses Diagnosis Controlled type 2 diabetes with neuropathy (CMS/HCC)- Primary Type II or unspecified type diabetes mellitus with neurological manifestations, not stated as uncontrolled Pain in toes of both feet Arthritis of both feet Difficulty walking Difficulty in walking Dermatophytosis, nail Dermatophytosis of nail documented in this encounter Discontinued Medications Medication Sig Discontinue Reason Start Date End Da te aspirin 81 mg EC tablet Take 1 Tab by mouth daily. 04/25/2024 calcium carbonate/vitamin D3 (CALCIUM + D ORAL) Take by mouth. 04/25/2024 cholecalciferol (VITAMIN D-3) 25 mcg (1,000 unit) capsule Take by mouth. 04/25/2024 DULoxetine (CYMBALTA) [address] capsule Take 30 mg by mouth daily. 04/25/2024 enalapril (VASOTEC) 10 mg tablet Take 10 mg by mouth daily. 04/25/2024 gabapentin (NEURONTIN) 400 mg capsule Take 400 mg by mouth 3 times daily. 2 caps 04/25/2024 metFORMIN (GLUCOPHAGE) 500 mg tablet Take 500 mg by mouth 2 times daily (with meals). 04/25/2024 montelukast (SINGULAIR) 10 mg tablet Take 10 mg by mouth at bedtime. 04/25/2024 documented as of this encounter Care Teams Land Conservation Specialist Relationship Specialty Start Date End Date Massimo Mcclellan PA [address] [place] [address] PCP - General 11/24/23 documented as of this encounter
--- OUTSIDE RECORDS SUMMARY | 2024-05-01 16:49 | XMS_ITS | Patient Health Record ---
Author Organization [facility] Address [address] [place] [address] Care Team Providers Care Eastern Philosophy Professor Name Role Phone Massimo Figueroa Primary Care Provider Unavail able Miguel A Layne Unavailable [phone] Allergies Allergen (clinical drug ingredient) Drug/Non Drug Allergy documented on EMR Reaction Allergy Type Onset Date Status amoxicillin Amoxicillin hives Drug Allergy Act fred lidocaine Lidocaine hives Drug Allergy Active morphine Morphine Sulfate itchy Drug Allergy Active Reason For Referral No Information Medications Medication SIG (Take, Route, Frequency, Duration) Notes [...] Active Celecoxib 200 MG (Prior Auth: Rx Ref#:[id number]) Oral for 30 Not-Taking Tresiba Active DULoxetine HCl 60 MG (Prior Auth: Rx Ref#:[id number]) Oral for 30 Not-Taking NovoLOG Active Enalapril Maleate 10 MG (Prior Auth: Rx Ref#:[id number]) Oral for 90 Not-Taking Acetaminophen Extra Strength 500 MG (Prior Auth: Rx Ref#:[id number]) Oral for 13 Active Gabapentin 400 MG (Prior Auth: Rx Ref#:[id number]) Oral for 90 Not-Taking Albuterol Sulfate (2.5 MG/3ML) 0.083% (Prior Auth: Rx Ref#:[id number]) Inhalation for 10 Active Ferrous Sulfate 325 (65 Fe) MG 1 tablet Orally Once a day for 30 day(s) Not-Taking Capsaicin 0.025 % 1 application to affected area as needed Externally Three times a day Active Fluticasone Furoate 200 MCG/ACT 1 puff Inhalation Once a day Active hydroCHLOROthiazide 12.5 MG (Prior Auth: Rx Ref#:[id number]) Oral for 30 Active Polyethylene Glycol 3350 - as directed Active Flunisolide 25 MCG/ACT (0.025%) (Prior Auth: Rx Ref#:[id number]) Nasal for 25 Active Extra Depth Orthopedic Shoes (1 Pair) with Customized Heat Molded Multidensity Innersoles (3 Pair) as directed Dx: IDDM/Polyneuropathy (E10.42), Hammertoe Foot Deformity (M20.41,M20.42), Preulcerative Skin Lesion(s) (L85.1) 01/12/2023 Active Loratadine 10 MG (Prior Auth: Rx Ref#:[id number]) Oral for 90 Active Montelukast Sodium 10 MG (Prior Auth: Rx Ref#:[id number]) Oral for 30 Active oxyCODONE HCl 5 MG (Schedule II Drug) (Prior Auth: Rx Ref#:[id number]) Oral for 28 Active Pantoprazole Sodium 40 MG (Prior Auth: R x Ref#:[id number]) Oral for 30 Active Pravastatin Sodium 10 MG (Prior Auth: Rx Ref#:[id number]) Oral for 30 Active Aspirin Low Dose 81 MG (Prior Auth: Rx Ref#:[id number]) Oral for 90 Not-Taking Citracal + D Not-Morgan ing Fluconazole 200 MG 1 tablet Orally Once a day for 10 day(s) Not-Taking Immunizations Vaccine Route Administration Date Status Comme nts Influenza Unknown 01/22/2018 Administered Influenza Unknown 01/15/2019 Administered Social History Tobacco Use: Social History Observation Description Date Details (start date - stop date) Never Smoker NA - NA Tobacco Use/Smoking Question Answer Notes Are you a: nonsmoker Additional Findings: Tobacco Non-User Current no n-smoker Alcohol Screen Question Answer Notes Did you have a drink containing alcohol in the p ast year? No Points 0 Interpretation Negative Tobacco use other than smoking: Question Answer Notes Are you an other tobacco user? No Problems Problem Type SNOMED Code ICD Code Onset Dates Problem Status W/U Status Risk Notes Problem Acquired hammer toe of right foot (7791833145127455 ) Other hammer toe(s) (acquired), right foot (M20.41) Active confirmed Problem Acquired hammer toe of left foot (0553548472930995 ) Other hammer toe(s) (acquired), left foot (M20.42) Active confirmed Problem Polyneuropathy due to diabetes mellitus type I (098650811) Type 1 diabetes mellitus with diabetic polyneuropathy (E10.42) Active confirmed Plan Of Treatment Pending Test Test Name Order Date X ray : Foot, left 3V 12/18/2018 X ray : Foot, right 3V 12/18/2018 [id number] NAIL, 6 OR MORE 11/10/2021 [id number] NAIL, 6 OR MORE 01/12/2023 [id number] SKIN LESIONS, OVER 4 01/13/20 23 [id number] SKIN LESIONS, OVER 4 11/11/19 22 [id number] SKIN LESIONS, OVER 4 09/19/19 19 56924-GVIE SKIN LESIONS, OVER 4 12/19/19 19 35753-OYIK SKIN LESIONS, OVER 4 03/26/20 19 93462-[id number] SKIN LESIONS, OVER 4 09/09/19 21 83498-GYKK SKIN LESIONS, OVER 4 06/12/19 22 Insurance Providers Payer Name Payer Address Payer Phone Subscriber Number Group Number Insured Name Patient Relationship to Insured Coverage Start Date Coverage End Date [facility] [employer] Claims [address] [place] [phone] [facility] [id number] Leonie Corea Self - patient is the insured Medical (General) History Medical History History ICD Code Anemia Anxiety [...] History Reason Date(Month/Year) [facility]- check her heart [facility] for kidney stones 05/01
--- OUTSIDE RECORDS SUMMARY | 2024-05-01 16:49 | XMS_ITS ---
[facility] Organization [facility] Address [address] [place] [address] Care Team Providers Care Correction Officer Name Role Phone Massimo Figueroa Primary Care Provider Unavail able Miguel A Layne Unavailable [phone] Allergies Allergen (clinical drug ingredient) Drug/Non Drug Allergy documented on EMR Reaction Allergy Type Onset Date Status amoxicillin Amoxicillin hives Drug Allergy Act fred lidocaine Lidocaine hives Drug Allergy Active morphine Morphine Sulfate itchy Drug Allergy Active REASON FOR VISIT At Risk Footcare, Toe Irritation Medications Medication SIG (Take, Route, Frequency, Duration) Notes Start Date End Date Status Celecoxib 200 MG (Prior Auth: Rx Ref#:[id number]) Oral for 30 Not-Taking DULoxetine HCl 60 MG (Prior Auth: Rx Ref#:[id number]) Oral for 30 Not-Taking Enalapril Maleate 10 MG (Prior Auth: Rx Ref#:[id number]) Oral for 90 Not-Taking Gabapentin 400 MG (Prior Auth: Rx Ref#:[id number]) Oral for 90 Not-Taking Ferrous Sulfate 325 (65 Fe) MG 1 tablet Orally Once a day for 30 day(s) Not-Taking Fluconazole 200 MG 1 tablet Orally Once a day for 10 day(s) Not-Taking HumaLOG KwikPen 200 UNIT/ML as directed Subcutaneous Not-Taking Ketotifen Fumarate 0.025 % 1 drop into a ffected eye Ophthalmic Twice a day Not-Taking Sucralfate 1 GM/10ML 10 ml on an empty stomach Orally Twice a day for 30 day(s) Not-Taking Tresiba FlexTouch 200 UNIT/ML as directed Subcutaneous Not-Taking oxyCODONE HCl 5 MG (Schedule II Drug) (Prior Auth: Rx Ref#:[id number]) Oral for 28 Active Pantoprazole Sodium 40 MG (Prior Auth: R x Ref#:[id number]) Oral for 30 Active Pravastatin Sodium 10 MG (Prior Auth: Rx Ref#:[id number]) Oral for 30 Active Aspirin Low Dose 81 MG (Prior Auth: Rx Ref#:[id number]) Oral for 90 Not-Taking Citracal + D Not-Morgan ing Montelukast Sodium 10 MG (Prior Auth: Rx Ref#:[id number]) Oral for 30 Active hydroCHLOROthiazide 12.5 MG (Prior Auth: Rx Ref#:[id number]) Oral for 30 Active Polyethylene Glycol 3350 - as directed Active Flunisolide 25 MCG/ACT (0.025%) (Prior Auth: Rx Ref#:[id number]) Nasal for 25 Active Loratadine 10 MG (Prior Auth: Rx Ref#:[id number]) Oral for 90 Active NovoLOG Active Acetaminophen Extra Strength 500 MG (Prior Auth: Rx Ref#:[id number]) Oral for 13 Active Albuterol Sulfate (2.5 MG/3ML) 0.083% (Prior Auth: Rx Ref#:[id number]) Inhalation for 10 Active Capsaicin 0.025 % 1 application to affected area as needed Externally Three times a day Active Fluticasone Furoate 200 MCG/ACT 1 puff Inhalation Once a day Active Tradjenta Active Tresiba Active Extra Depth Orthopedic Shoes (1 Pair) with Customized Heat Molded Multidensity Innersoles (3 Pair) as directed Dx: IDDM/Polyneuropathy (E10.42), Hammertoe Foot Deformity (M20.41,M20.42), Preulcerative Skin Lesion(s) (L85.1) 01/12/2023 Active Social History Tobacco Use: Social History Observation [...] Are you an other tobacco user? No Vital Signs Height 5 ft 3 in in 01/12/2023 Weight 162 lbs 01/12/2023 BMI 28.69 kg/m2 01/12/2023 Procedures Procedure Date Ordered Date Performed Result Body Sit e 58029-PGCOALZ NAIL, 6 OR MORE 01/12/2023 N/A 77973-MQAZ SKIN LESIONS, OVER 4 01/12/2023 N/A Encounters Encounter Location Date Provider Diagnosis [facility] [address] [place] [address] [address] [place] [address] 01/12/2023 Miguel Asadia UrrutiaRoverto Type 1 diabetes mellitus with diabetic polyneuropathy E10.42 ; Onychomycosis B35.1 ; Other hammer toe(s) (acquired), right foot M20.41 and Other hammer toe(s) (acquired), left foot M20.42 Assessments Encounter Date Diagnosis (ICD Code) Assessment Notes Treatment Notes Treatment Clinical Notes Section Notes 01/12/2023 Type 1 diabetes mellitus with diabetic polyneuropathy (ICD-10 - E10.42) 01/12/2023 Onychomycosis (ICD-10 - B35.1) 01/12/2023 Other hammer toe(s) (acquired), right foot (ICD-10 - M20.41) Patient Educated with: DIABETIC FOOT CARE INSTRUCTIONS. pdf (DIABETIC FOOT CARE INSTRUCTIONS. pdf) 01/12/2023 Other hammer toe(s) (acquired), left foot (ICD-10 - M20.42) Plan Of Treatment Medication Medication Name Sig Start Date Stop Date Notes Extra Depth Orthopedic Shoes (1 Pair) with Customized Heat Molded Multidensity Innersoles (3 Pair) as directed Dx: IDDM/Polyneuropathy (E10.42), Hammertoe Foot Deformity (M20.41,M20.42), Preulcerative Skin Lesion(s) (L85.1) 01/12/2023 Treatment Notes Assessment Notes Other hammer toe(s) (acquired), right fo ot Patient Educated with: DIABETIC FOOT CARE INSTRUCTIONS.pdf (DIABETIC FOOT CARE INSTRUCTIONS.pdf) Pending Test Test Name Order Date 64466-UJQDKAY NAIL, 6 OR MORE 01/12/2023 43768-OMKL SKIN LESIONS, OVER 4 01/13/20 23 Next Appt Details Follow Up: prn, Reason: Procedure Notes * Category Sub-Category Detail Notes Debride Nail 6-10 Nail debridement Nail debridem ent performed extensively to reduce/remove overall nail length and girth, subungual debris, and necrotic tissue, by manual and electrical means with use of a nail nipper and/or dremel, to more viable healthy nail plate or bed tissue 6-10. Silver nitrate used for any petechial bleeding as necessary. Patient chooses, no pharmaceutical tx (21090) Keratoma Treatment Parring or Cutting o f Benign Hyperkeratotic Lesion(s) 58515 ( >4 Lesions) - The Benign hyperkeratotic lesions, as described above were pared, and/or cut utilizing a sterile #15 blade, tissue nippers, and/or dremel Progress Notes * CHOU, RosalbafartunDOB:1945 ([age] yo F)Acc No.[id number]:01/12/2023 Progress Note Patient:?Leonie Chou Provider:?Miguel A Layne DPM :1945???Age:77 Y???Sex:Female D ate:01/12/2023 Address:[address] [place], [place] [id number] Pcp:TARA Weiss Subjective: * Chief Complaints: * ???At Risk FootcareToe Irrit ation * HPI: ???At Risk footcare:?Pt States Last PCP Visit:?Date?12/28/2022 ???Toe pain:?Location:?B/L feet.?Duration:?several years.?Course:?worse.?Aggrevated by:?shoes, any pressure.?Treatments:?change in shoes.? * ROS:?General/Constitutional:?Nausea?denies, denies.?Vomiting?denies, denies.?Hunger Thirst?denies, denies.?Loss appetite?denies, denies.?Chills?denies, denies.?Fatigue?denies, denies.?Fever?denies, denies.?Night Sweats denies, denies.?Unexplained weight loss?denies, denies.?Unexplained weight gain?denies.?Ophthalmologic:?Blurred vision?denies.?Red eye?denies.?HEENTM:?Dentures?admits.?Dizziness?denies.?Glasses/contacts?admits.?Retinopathy?de nies, denies.?Blurred/double vision?admits.?TMJ?denies.?Discharge/drainage?denies, denies.?Implants?denies.?Sore throat?denies.?Dental implants?denies.?Hard of hearing ?admits, denies.?Difficulty chewing/swallowing/speaking?admits.?Nose bleeds?denies, denies.?Sore mouth?admits.?Swollen glands?denies.?Respiratory:?On Oxygen?denies, denies.?Pneumonia/pleurisy?denies, denies.?Bronchitis?denies, denies.?Emphysema?denies, denies.?Coughing?admits.?Cough blood?denies.?Shortness of breath?admits.?Wheezing?admits.?Cardiovascular:?Pacemaker?denies, denies.?MVP?denies, denies.?WPW?denies.?CHF?denies, denies.?Heart attack?denies, denies.?Septal defect?denies, denies.?Rapid beat?denies.?Chest pain ?admits.?Atrial Fib.?denies, denies.?Murmur/Palpitations?admits.?Gastrointestinal:?Hemorrhoids?admits.?Stomach/Abdominal pain?admits.?Dark blood stool?denies.?Irritable bowel ?denies, denies.?Constipation?admits.?Diarrhea?denies, denies.?Vomiting?denies.?Hematology:?Swelling?admits.?Clots?Admits.?Varicose Veins?denies.?Bruising?denies, denies.?Bleeding problem?denies, denies.?Genitourinary:?Blood urine?denies, denies.?Frequent/Painfu/urination/bladder control?admits.?Kidney stones?admits.?Infection (UTI)?denies.?Nephropathy?denies, denies.?sex trans dis (STD)?denies.?Prostate?denies.?Musculoskeletal:?Hammertoes?admits.?Bunions?denies, denies.?Scoliosis/kyphosis?denies.?Back Pain?denies.?Muscle Cramps/ Resting?denies.?Muscle cramps / walking?denies, denies.?Generalized aches and pains?denies, denies.?Weakness?denies, denies.?Integ.:?Gibson?denies, denies.?Scars?denies, denies.?Corns/calluses?admits.?Ingrown nails?admits.?Painful nails?denies.?Open Sores?denies.?Rashes?denies.?Neurologic:?Difficulty sleeping?denies.?Bipolar?denies.?Brain disorder?denies.?Numbness?admits.?Balance trouble?admits.?Confusion?admits.?Fainting/blackouts?denies.?Headache?denies.?Ti ngling?denies.?Tremors?denies.? * Medical History:? * Surgical History:?gall bladd er 1975uterus surgery 1975parathyroidectomy 2005kidney stones 2009 * Hospitalization/Major Diagno stic Procedure:?[place] [facility] kidney [place] [facility] [place] check her heart * Family History:?Mother: dece ased, diagnosed with Other malignant neoplasm of unspecified site.?Father: , poor circulation, foot problems, diagnosed with Family history of arthritis, Diabetic - NIDDM, Unspecified heart disease.?Daughter(s): alive.?Children: foot problems, diagnosed with Family history of arthritis, Diabetic - NIDDM.? * Social History:?Tobacco Use:?Tobacco Use/Smoking?Are you a:?nonsmoker ?Additional Findings: Tobacco Non-User?Current non-smoker ?Tobacco use other than smoking?Are you an other tobacco user??No ???Drugs/Alcohol:?Drugs?Have you used drugs other than those for medical reasons in the past 12 months??No ?Alcohol Screen?Did you have a drink containing alcohol in the past year??No ?Points?0 ?Interpretation?Negative ???Miscellaneous:?Caffeine: yes, frequency:. ?Children: yes. ?Marital status: . ?Occupation: Retired. * Medications:?TakingTradjenta Tresiba NovoLOG Acetaminophen Extra Strength 500 MG Tablet (Prior Auth: Rx Ref#:[id number]) Oral Albuterol Sulfate (2.5 MG/3ML) 0.083% Nebulization Solution (Prior Auth: Rx Ref#:[id number]) Inhalation Capsaicin 0.025 % Cream 1 application to affected area as needed Externally Three times a dayFluticasone Furoate 200 MCG/ACT Aerosol Powder Breath Activated 1 puff Inhalation Once a dayhydroCHLOROthiazide 12.5 MG Capsule (Prior Auth: Rx Ref#:[id number]) Oral Polyethylene Glycol 3350 - Powder as directed Flunisolide 25 MCG/ACT (0.025%) Solution (Prior Auth: Rx Ref#:[id number]) Nasal Loratadine 10 MG Tablet (Prior Auth: Rx Ref#:[id number]) Oral Montelukast Sodium 10 MG Tablet (Prior Auth: Rx Ref#:[id number]) Oral oxyCODONE HCl 5 MG Tablet (Schedule II Drug) (Prior Auth: Rx Ref#:[id number]) Oral Pantoprazole Sodium 40 MG Tablet Delayed Release (Prior Auth: Rx Ref#:[id number]) Oral Pravastatin Sodium 10 MG Tablet (Prior Auth: Rx Ref#:[id number]) Oral Taking Tradjenta Taking Tresiba Taking NovoLOG Taking Acetaminophen Extra Strength 500 MG Tablet (Prior Auth: Rx Ref#:[id number]) Oral Taking Albuterol Sulfate (2.5 MG/3ML) 0.083% Nebulization Solution (Prior Auth: Rx Ref#:[id number]) Inhalation Taking Capsaicin 0.025 % Cream 1 application to affected area as needed Externally Three times a dayTaking Fluticasone Furoate 200 MCG/ACT Aerosol Powder Breath Activated 1 puff Inhalation Once a dayTaking hydroCHLOROthiazide 12.5 MG Capsule (Prior Auth: Rx Ref#:[id number]) Oral Taking Polyethylene Glycol 3350 - Powder as directed Taking Flunisolide 25 MCG/ACT (0.025%) Solution (Prior Auth: Rx Ref#:[id number]) Nasal Taking Loratadine 10 MG Tablet (Prior Auth: Rx Ref#:[id number]) Oral Taking Montelukast Sodium 10 MG Tablet (Prior Auth: Rx Ref#:[id number]) Oral Taking oxyCODONE HCl 5 MG Tablet (Schedule II Drug) (Prior Auth: Rx Ref#:[id number]) Oral Taking Pantoprazole Sodium 40 MG Tablet Delayed Release (Prior Auth: Rx Ref#:[id number]) Oral Taking Pravastatin Sodium 10 MG Tablet (Prior Auth: Rx Ref#:[id number]) Oral Not-Taking/PRNAspirin Low Dose 81 MG Tablet Delayed Release (Prior Auth: Rx Ref#:[id number]) Oral Citracal + D Fluconazole 200 MG Tablet 1 tablet Orally Once a dayHumaLOG KwikPen 200 UNIT/ML Solution Pen- injector as directed Subcutaneous Ketotifen Fumarate 0.025 % Solution 1 drop into affected eye Ophthalmic Twice a daySucralfate 1 GM/10ML Suspension 10 ml on an empty stomach Orally Twice a dayTresiba FlexTouch 200 UNIT/ML Solution Pen-injector as directed Subcutaneous Celecoxib 200 MG Capsule (Prior Auth: Rx Ref#:[id number]) Oral DULoxetine HCl 60 MG Capsule Delayed Release Particles (Prior Auth: Rx Ref#:[id number]) Oral Enalapril Maleate 10 MG Tablet (Prior Auth: Rx Ref#:[id number]) Oral Gabapentin 400 MG Capsule (Prior Auth: Rx Ref#:[id number]) Oral Ferrous Sulfate 325 (65 Fe) MG Tablet 1 tablet Orally Once a dayMedication List reviewed and reconciled with the patientNot-Taking/PRN Aspirin Low Dose 81 MG Tablet Delayed Release (Prior Auth: Rx Ref#:[id number]) Oral Not-Taking/PRN Citracal + D Not-Taking/PRN Fluconazole 200 MG Tablet 1 tablet Orally Once a dayNot-Taking/PRN HumaLOG KwikPen 200 UNIT/ML Solution Pen-injector as directed Subcutaneous Not-Taking/PRN Ketotifen Fumarate 0.025 % Solution 1 drop into affected eye Ophthalmic Twice a dayNot-Taking/PRN Sucralfate 1 GM/10ML Suspension 10 ml on an empty stomach Orally Twice a dayNot-Taking/PRN Tresiba FlexTouch 200 UNIT/ML Solution Pen-injector as directed Subcutaneous Not- Taking/PRN Celecoxib 200 MG Capsule (Prior Auth: Rx Ref#:[id number]) Oral Not-Taking/PRN DULoxetine HCl 60 MG Capsule Delayed Release Particles (Prior Auth: Rx Ref#:[id number]) Oral Not-Taking/PRN Enalapril Maleate 10 MG Tablet (Prior Auth: Rx Ref#:[id number]) Oral Not-Taking/PRN Gabapentin 400 MG Capsule (Prior Auth: Rx Ref#:[id number]) Oral Not-Taking/PRN Ferrous Sulfate 325 (65 Fe) MG Tablet 1 tablet Orally Once a dayMedication List reviewed and reconciled with the patient * Allergies:?Amoxicillin: hive sMorphine Sulfate: itchyLidocaine: hivesyes[Allergies Verified] Objective: * Vitals:?Ht: 5 ft 3 in, Wt: 1 62, BMI: 28.69, Shoe size: 7.5, BS: 90, Wt-k.48 kg. * Examination: ???Neurological: ?SENSORY:? Neurological exam demonstrates, reduced light touch sensation, reduced sharp/dull pin prick discrimination , B/L, 5.07 monofilament test performed at plantar aspects of 5 varied sites per foot shows sensation, reduced , B/L.?Nails: ?NAILS are:?Elongated, overgrown, dystrophic, lytic, greater than 3mm thick, discolored and friable with crumbly malodorous subungual debris, 1-5 B/L.?Dermatologic: ?SKIN FINDINGS:? Skin exam reveals Keratotic lesion(s) located at , Dorsal, Lateral, PIPJ, T3, Dorsal, Lateral, PIPJ, T4, Dorsal, Lateral, PIPJ, T9, SUB MTH (s), 1, B/L , Heel(s), B/L.?Orthopedic: ?MUSCLE STRENGTH:?5/5 all groups in a symmetrical fashion , B/L.?FOOT MORPHOLOGY:? No Charcot collapse/destruction noted at MTJ.?DIGITAL DEFORMITIES:?Digital contracture, PIPJ, 2-5 B/L, incompl-reducible to push-up test, no over, nor underlapping , with evidence of shoe producing skin irritation.?FOOTWEAR:?worn, non-supportive.?Vascular: ?DP PULSES:?0/4, B/L.?PT PULSES:?0/4, B/L.?CAPILLARY FILL TIME:?delayed, all digits, B/L.?SKIN TEMPERTURE GRADIENT OF THE LOWER EXTERMITIES:?decreased, cool to cool, proximal to distal, B/L.?HAIR GROWTH/TEXTURE/ELASTICITY/TURGOR:?decreased, B/L.?PIGMENTATION:?mottled, B/L.?EDEMA:?1/4, non-pitting, without aching pain, B/L, Feet, Ankle(s), Leg(s).?VARICOSITIES:? present, moderate, nonpainful, B/L.?Ophthalmology Referral: ?DIABETES EYE EXAM?General Examination: ?GENERAL APPEARANCE:?Reveals a pleasant, alert, well nourished, well- developed, well hydrated individual, who demonstrates proper attention to hygiene/body habitus, and is in no acute distress , Pt accompanied by , Daughter, Rachele , who serves as , Automotive Generator Repairer/Fowl Blood Tester , additional Historian , and/who is physically present in exam room at time of visit.?ORIENTED:?person, place, and time.?FOOT EXAM:?Footwear Evaluation? Assessment: * Assessment: 1.?Type 1 diabetes mellitus with diabetic polyneuropathy - E10.42?2.?Onychomycosis - B35.1?3.?Other hammer toe(s) (acquired), right foot - M20.41, Chronic problem, Worse (4),Rx Management (4)?4.?Other hammer toe(s) (acquired), left foot - M20.42, Chronic problem, Worse (4),Rx Management (4)? Plan: * Treatment: 2.?Other hammer toe(s) (acqu ired), right foot? Start Extra Depth Orthopedic Shoes (1 Pair) with Customized Heat Molded Multidensity Innersoles (3 Pair), as directed, Dx: IDDM/Polyneuropathy (E10.42), Hammertoe Foot Deformity (M20.41,M20.42), Preulcerative Skin Lesion(s) (L85.1), 1, Refills 0.?? Notes: Patient Educated with: DIABETIC FOOT CARE INSTRUCTIONS.pdf (DIABETIC FOOT CARE INSTRUCTIONS.pdf)?? * Procedures:?Debride Nail 6-10:?Nail debridement?Nail debridement performed extensively to reduce/remove overall nail length and girth, subungual debris, and necrotic tissue, by manual and electrical means with use of a nail nipper and/or dremel, to more viable healthy nail plate or bed tissue 6-10. Silver nitrate used for any petechial bleeding as necessary. Patient chooses, no pharmaceutical tx (69182).?Keratoma Treatment:?Parring or Cutting of Benign Hyperkeratotic Lesion(s)?50154 ( >4 Lesions) - The Benign hyperkeratotic lesions, as described above were pared, and/or cut utilizing a sterile #15 blade, tissue nippers, and/or dremel.? * Procedure Codes:?72231 DEBRI DE NAIL, 6 OR MORE, Modifiers: XS 94991 TRIM SKIN LESIONS, OVER 4, Modifiers: XS * Preventive Medicine:? ??Counseling:?Discussion:?-14: Office or other outpatient visit for the evaluation and management of an established patient, which required a medically appropriate history and/or examination and MODERATE level of DECISION MAKING for: 1 OR MORE CHRONIC PROBLEM(S) THATS WORSENING, 2 STABLE CHRONIC PROBLEMS, A NEWLY DIAGNOSED PROBLEM WITH UNCERTAIN PROGNOSIS, AN ACUTE COMPLICATED INJURY WITH MULTIPLE TREATMENT OPTIONS, OR AN ACUTE PROBLEM WITH ACCOMPANYING SYSTEMIC SYMPTOMS, THAT POSE(S) A MODERATE RISK OF MORBIDITY. THIS CONDITION MAY ALSO INCLUDE RX DRUG MANAGEMENT, OR A DECISON FOR MINOR SURGERY. The visit on the day of the encounter encompassed interpreting the data and educating the patient as to the nature of their condition, treatment options available according to their individual PMH, meds, allergies, and overall health/living conditions, as well as any potential risks or complications that may occur from a failure to adhere to, and participate in, the recommended course of therapy. The discussion included a complete verbal, and/or written explanation of the examination results, any x-rays taken, the proposed diagnosis, and outline of the treatment plan. A schedule for future care needs was also explained. The patient verbalized an understanding of the instructions at this time and agreed to be an active participant in their treatment. If the patient should think of any questions or concerns after the visit, I have encouraged the patient to call the office.?Digital Surgery:?Digital surgery was discussed with the patient, We elected to try conservative treatment at the present time, due to the patients medical history and increased asssociated post-operative risks.?Digital Treatment:?HT- I explained to the patient the possible etiologies of Hammertoes, including genetics/foot type/shoegear/activity level/exercise routine and the risks/benefits of all the different treatment options for their pain including: No treatment at all, Rest, Ice, New/supportive/wider/deeper Shoegear, Digital Padding/Strapping/Taping/Bracing/Gel protective sleeves, Foot/Ankle AFO Bracing, Stretching exercises, Deep Tissue Massage, Arch support/shoe inserts with splay metatarsal padding, and Custom orthoses. I insisted that any digital devices be removed daily and not worn overnight for safety. The patient is to carefully examine the toes daily for any skin irritation while using any splinting or padding device. The advantages and disadvantages of each option were discussed and the patients questions re: shoegear, padding, custom vs prefabricated inserts, activity level, and consistency in home treatment regimens for optimal success were answered to their verbally confirmed satisfaction.?Shoe Gear Counseling:?SHOE Rx - The patient was counseled in great detail on their muscoloskeletal foot and toe deformities which coincided with the dermatological presentations visualized on exam. We discussed how their deformities put the integrity of their feet at risk for potential pedal complications which makes the accomidative diabetic shoes and cutomizable inserts medically necessary. We discussed the different shoe and insert treatment types and options, as well as the important advantages for adhering to regularly wearing these accomidative devices daily. The patient was made aware of the fact that a failure to abide by these recommedations may be deleterious to their foot health as they are able to prevent many pedal complications such as skin irritation, skin ulceration, infection, and even loss of toe/foot/leg/or life. Time was also spent with the patient dispensing and discussing proper diabetic footcare techniques including daily skin moisturization, daily foot inspection for any interruption in skin integrity including open lesions, or sign of infection such as redness/malodor/drainage/swelling. Also discussed and recommended were procedures regarding daily shoe inspection for the presence of internal foreign bodies as well as any visualized irregular shoe or insert wear. Patient questions re: shoes, inserts, and self foot inspections were answered to their satisfaction as the patient verbally confirmed a full understanding of the above information. A Rx for Extra Depth Orthopedic Shoes with 3 pair of custom heat-molded inserts was dispensed.? * Follow Up:?prn * Images: * Sign off status: Completed true * Provider:?Miguel A Layne DPM Date:?2022 Generated for Luis E sanford/Benjie/Alok on:?05/01/2024 04:48 PM EST History and Physical Notes * HPI (History of Present Illness) Category Sub-Category Detail Notes Category Not es Toe pain Location: B/L feet Duration: several years Course: worse Aggravated by: shoes, any pressure Treatments: change in shoes At Risk footcare Pt States Last PCP Visit: Date: 3 Examination Category Sub-Category Detail Notes Category Not es Neurological SENSORY: Neurological exa m demonstrates, reduced light touch sensation, reduced sharp/dull pin prick discrimination , B/L, 5.07 monofilament test performed at plantar aspects of 5 varied sites per foot shows sensation, reduced , B/L Dermatologic SKIN FINDINGS: Skin exam reveal s Keratotic lesion(s) located at , Dorsal, Lateral, PIPJ, T3, Dorsal, Lateral, PIPJ, T4, Dorsal, Lateral, PIPJ, T9, SUB MTH (s), 1, B/L , Heel(s), B/L Orthopedic FOOT MORPHOLOGY: No Charcot joe apse/destruction noted at MTJ FOOTWEAR: worn, non-supportive DIGITAL DEFORMITIES: Digital contracture , PIPJ, 2-5 B/L, incompl-reducible to push-up test, no over, nor underlapping , with evidence of shoe producing skin irritation MUSCLE STRENGTH: 5/5 all groups in a symmetrical fashion , B/L General Examination GENERAL APPEARANCE: Reveals a pleasant, alert, well nourished, well-developed, well hydrated individual, who demonstrates proper attention to hygiene/body habitus, and is in no acute distress , Pt accompanied by , Daughter, Rachele , who serves as , Automotive Generator Repairer/Fowl Blood Tester , additional Historian , and/who is physically present in exam room at time of visit FOOT EXAM: Lower Extremity Neurological Exa m performed:: Yes ORIENTED: person, place, and t thomas Footwear Evaluation Footwear Evaluation performe d:: Yes Ophthalmology Referral DIABETES EYE EXAM Diabetic Retinopa thy Screening:: Yes Findings of Diabetic Eye Exam:: no retin opathy Vascular DP PULSES (B): 0/4, B/L PT PULSES (B): 0/4, B/L CAPILLARY FILL TIME: delayed, all digits , B/L TEMPERTURE GRADIENT (C): decreased, cool to cool, proximal to distal, B/L TROPHIC CONDITION-TEXTURE/ELASTICITY/TURGOR/HAIR GROWTH (B): decreased, B/L EDEMA (C): 1/4, non-pitting, wi thout aching pain, B/L, Feet, Ankle(s), Leg(s) VARICOSITIES: present, moderate, n onpainful, B/L PIGMENTATION: mottled, B/L Nails NAILS are: Elongated, overg rown, dystrophic, lytic, greater than 3mm thick, discolored and friable with crumbly malodorous subungual debris, 1-5 B/L
--- OUTSIDE RECORDS SUMMARY | 2024-05-01 16:49 | XMS_ITS | Clinical Summary ---
Author Organization [address] [facility] Address [address] [place] [address] Phone Care Team Providers Care Net C Developer Name Role Phone Massimo Mcclellan Primary Care Provider [phone] Allergies Active Allergy Reactions Criticality Noted Date Comments Lidocaine Hives 07/19/2017 Other Reaction(s): Rash/Dermatitis Morphine Itching 11/07/2017 Penicillins Hives 07/19/2017 Other Reaction(s): Rash/Dermatitis Medications Medication Sig Dispensed Refills Start Date End Date Status capsaicin (ZOSTRIX) 0.025 % cream Apply topically. Active acetaminophen (TYLENOL) 500 mg tablet Take 500 mg by mouth every 6 hours as needed. Active flunisolide (NASALIDE) 25 mcg (0.025 %) spray,non-aerosol by Nasal route. Active fluticasone furoate (Arnuity Ellipta) 200 mcg/actuation blister with device inhaler Inhale 1 Puff into the lungs daily. Active ketotifen (ZADITOR) 0.025 % ophthalmic solution 1 Drop 3 times daily. Active loratadine (CLARITIN) 10 mg tablet Take 10 mg by mouth daily. Active oxyCODONE (ROXICODONE) 5 mg immediate release tablet Take 5 mg by mouth every 4 hours as needed. Active pantoprazole (PROTONIX) 40 mg EC tablet Take 40 mg by mouth daily. Active sucralfate (CARAFATE) 1 gram tablet Take 1 g by mouth daily. Active aspirin 81 mg EC tablet Take 1 Tab by mouth daily. 04/25/2024 Discontinued calcium carbonate/vitamin D3 (CALCIUM + D ORAL) Take by mouth. 04/25/2024 Discontinu ed cholecalciferol (VITAMIN D-3) 25 mcg (1,000 unit) capsule Take by mouth. 04/25/2024 Discontinu ed DULoxetine (CYMBALTA) [address] capsule Take 30 mg by mouth daily. 04/25/2024 Discontinued enalapril (VASOTEC) 10 mg tablet Take 10 mg by mouth daily. 04/25/2024 Discontinued gabapentin (NEURONTIN) 400 mg capsule Take 400 mg by mouth 3 times daily. 2 caps 04/25/2024 Discontinued metFORMIN (GLUCOPHAGE) 500 mg tablet Take 500 mg by mouth 2 times daily (with meals). 04/25/2024 Discontinued montelukast (SINGULAIR) 10 mg tablet Take 10 mg by mouth at bedtime. 04/25/2024 Discontinued Active Problems Problem Noted Date Diagnosed Date Cataract 11/07/2017 CKD (chronic kidney disease) stage 3, GFR 30-59 ml/min 11/07/2017 Esophageal varices 11/07/2017 Overview (01/30/2024): 06/2106 EGD, Grade 1 Meniere disease 11/07/2017 Overview (01/30/2024): 2015 Dr Baker Osteopenia 11/07/2017 Pulmonary hypertension 11/07/2017 Overview (01/30/2024): 2016 DAVID RVSP- 46 Tubular adenoma of colon 11/07/2017 Overview (01/30/2024): 2004 Type 2 diabetes mellitus with cataract 8 Fibromyalgia 08/29/2017 Hepatitis C 08/29/2017 Hyperlipidemia 08/29/2017 Hyperparathyroidism 08/29/2017 Hypertension 08/29/2017 Kidney stone 08/29/2017 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 Overview (01/30/2024): Never treated Seizure disorder 08/29/2017 Overview (01/30/2024): Not on medication Allergic rhinitis 08/23/2017 Anxiety 08/23/2017 Asthma 08/23/2017 Depression 08/23/2017 DM (diabetes mellitus), type 2 with renal compli cations 08/23/2017 GERD (gastroesophageal reflux disease) 8 Insomnia 08/23/2017 Osteoarthritis 08/23/2017 Overview (01/30/2024): Lumbar spine Encounters Date Type Department Care Team Description 04/25/2024 2:30 PM EST Office Visit Orthopedic Surgery [place] [address] [phone] Florian Mott DPM Controlled type 2 diabetes with neuropathy (CMS/HCC) (Primary Dx); Pain in toes of both feet; Arthritis of both feet; Difficulty walking; Dermatophytosis, nail 02/21/2024 1:15 PM EST Consult Orthopedic Surgery [facility] [address] [phone] Florian Mott DPM Controlled type 2 diabetes with neuropathy (CMS/HCC) (Primary Dx); Pain in toes of both feet; Arthritis of both feet; Dermatophytosis, nail; Difficulty walking from Last 3 Months Immunizations Name Administration Dates Next Due Moderna SARS-CoV-2 COVID-19, mRNA, LNP-S, preservative free 05/25/2022 Pneumococcal conjugate 13 va lent (Prevnar 13, PCV13) 2mo and older 05/12/2014 Pneumococcal polysaccharide 23 valent (Pneumovax 23) 2yo and older 11/10/2010,05/20/2004 Td Tetanus diptheria (Tdvax) 7yo and older 11/10 Tdap Tetanus diptheria acell ular pertussis (Boostrix; Adacel) 7yo and older 05/12/2014 Zoster Live 10/16/2012 Social History Tobacco Use Types Packs/Day Years Used Date Smoking Tobacco: Never Assessed Sex and Gender Information Value Date Recorded Sex Assigned at Not on file Gender Identity Not on file Sexual Orientation Not on file Job Start Date Occupation Industry Not on file Not on file Not on file Last Filed Vital Signs Vital Sign Reading Time Taken Comments Blood Pressure - - Pulse - - Temperature - - Respiratory Rate - - Oxygen Saturation - - Inhaled Oxygen Concentration - - Weight 68.9 kg (152 lb) 04/25/2024 2:39 PM EST Height 160 cm (5' 3 ) 04/25/2024 2:39 PM EST Body Mass Index 26.93 04/25/2024 2:39 PM EST Plan of Treatment Upcoming Encounters Date Type Department Care Team (Late st Contact Info) Description 06/27/2024 2:45 PM EDT Office Visit Orthopedic Surgery - [place] [phone] [phone] Florian Mott, MAHSA [address] [address] Health Maintenance Due Date Last Done Comments Diabetes: Annual Foot Exam 1955 Diabetes: Annual Retina Eye Exam 1955 Hepatitis A Vaccines (1 of 2 - Risk 2-dose series) 07/06/1963 Hepatitis B Vaccines (1 of 3 - Risk 3-dose series) 2004 RSV Immunization Patients 60+ Years Old (1 - 1-dose 75+ series) 07/06/2019 Falls Risk Assessment 03/13/2022 Hepatitis C Screening 03/13/2022 Medicare Annual Wellness Visit 03/13/2022 Osteoporosis Screening (Bone Density Screening) 03/13/2022 Social Influencers of Health Screening 03/13/2022 Diabetes: Blood Sugar Control Test (HGBA1C) 04/26/2024 10/25/2023 DTaP,Tdap,and Td Vaccines (3 - Td or Tdap) 05/12/2024 05/12/2014, 11/10/2010 Diabetes: Annual Urine Albumin-Creatinine Ratio (uACR) 07/25/2024 07/26/2023 Depression Screening 10/24/2024 10/25/2023 Diabetes: Annual GFR (Glomerular Filtration Rate) 10/24/2024 10/25/2023, 07/19/2017 Hypertension/CHF/CAD Annual BMP Blood Test 10/24/2024 10/25/2023, 07/19/2017 Cholesterol Screening (Lipid Panel) 05/08/2028 05/08/2023, 05/08/2023, 12/23/2015 Pneumococcal Vaccine: 65+ Years Completed 05/12/2014, 11/10/2010, 05/20/2004 Zoster Vaccines Completed 12/08/2021, 0611/2021, 10/16/2012 COVID-19 Vaccine Completed 12/27/2023, 10/2022, 05/25/2022, Additional history exists Influenza Vaccine Completed 12/27/2023, , 02/04/2023, Additional history exists HIB Vaccines Aged Out No longer eligi ble based on patient's age to complete this topic HPV Vaccines Aged Out No longer eligi ble based on patient's age to complete this topic IPV Vaccines Aged Out No longer eligi ble based on patient's age to complete this topic MMR Vaccines Aged Out No longer eligi ble based on patient's age to complete this topic Meningococcal ACWY Vaccine Aged Out N o longer eligible based on patient's age to complete this topic RSV Immunization Patients Under 20 months Aged Out No longer eligible based on patient's age to complete this topic Varicella Vaccines Aged Out No longer eligible based on patient's age to complete this topic Procedures Procedure Name Priority Date/Time Associated Diagnosis Comments ANNUAL BMP BLOOD TEST Routine 07/19/2017 from Last 3 Months or Most Recently Relevant to Health Maintenance Results * Annual BMP Blood Test (07/19/2017) Annual BMP Blood Test Abstracted Historical Provider MD MATHEW Oliveros from Last 3 Months or Most Recently Relevant to Health Maintenance Advance Directives Documents on File Type Date Recorded Patient 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 Machine Coin Collector Expl anation Health Care Decision (hx) 03/30/2021 AD NIEVES DIRECTIVE Health Care Decision (hx) 03/30/2021 AD NIEVES DIRECTIVE Health Care Decision (hx) 03/30/2021 AD NIEVES DIRECTIVE Health Care Decision (hx) 03/30/2021 AD NIEVES DIRECTIVE Health Care Decision (hx) 03/30/2021 AD NIEVES DIRECTIVE Health Care Decision (hx) 03/30/2021 AD NIEVES DIRECTIVE Health Care Decision (hx) 12/25/2015 AD NIEVES DIRECTIVE Health Care Decision (hx) 12/25/2015 AD NIEVES DIRECTIVE Health Care Decision (hx) 12/25/2015 AD NIEVES DIRECTIVE Health Care Decision (hx) 12/25/2015 AD NIEVES DIRECTIVE Health Care Decision (hx) 12/25/2015 AD NIEVES DIRECTIVE Health Care Decision (hx) 12/25/2015 AD NIEVES DIRECTIVE Health Care Decision (hx) 12/25/2015 AD NIEVES DIRECTIVE Health Care Decision (hx) 12/25/2015 AD NIEVES DIRECTIVE Care Teams Net C Developer Relationship Specialty Start Date End Date Massimo Mcclellan PA [address] [place] [address] PCP - General 11/24/23
== END 2024-05-01 15:16 | disposition home or self-care (01) ==
PROVIDERS: PCP Physician Assistant; Visit Provider Physician Assistant
DX: Z98.1 Arthrodesis status (principal)
CPT/HCPCS: 99024

== ENCOUNTER 2024-05-01 14:25 | Outpatient (REF) | payer OTHER, SELFPAY ==
--- NOTE | ~2024-05-01 | XR_ITS ---
CLINICAL HISTORY: Z98.1 - Arthrodesis status 4 views cervical spine Comparison: None Findings: Normal alignment with flexion and extension positioning. No acute fractures or dislocation. Iatrogenic findings with surgical hardware noted at C3-C4. There is multiple level degenerative disc, facet, and uncovertebral joint change. No prevertebral soft tissue swelling. IMPRESSION: No acute findings. This document has been electronically signed by: To Eng MD on 05/03/2024 04:53:21
--- OUTSIDE RECORDS SUMMARY | 2024-05-01 16:52 | XMS_ITS ---
Author Organization [facility] Address [address] [place] [address] Care Team Providers Care Principal Technologist Name Role Phone RICKY GARZA, DAISY Primary Care Provider Unavailable Amor Dobbins Jr Unavailable REASON FOR VISIT INTESTINAL ISSUES Encounters Encounter Location Date Provider Diagnosis [facility] [address] [place] [address] 01/17/2024 Amor Dobbins Jr PLAN OF TREATMENT No Information
--- OUTSIDE RECORDS SUMMARY | 2024-05-01 16:53 | XMS_ITS ---
Author Organization [facility] Address [address] [place] [address] Care Team Providers Care Flight Crew Scheduler Name Role Phone RICKY GARZA, DAISY Primary Care Provider Unavailable Amor Dobbins Jr Unavailable [phone] REASON FOR VISIT no show Encounters Encounter Location Date Provider Diagnosis [facility] [address] [place] [address] 09/18/2023 Amor Dobbins Jr PLAN OF TREATMENT No Information
--- OUTSIDE RECORDS SUMMARY | 2024-05-01 16:53 | XMS_ITS ---
Author Organization [facility] Address [address] [place] [address] Care Team Providers Care Sales Enablement Manager Name Role Phone RICKY GARZA, DAISY Primary Care Provider Unavailable Amor Dobbins Jr Unavailable REASON FOR VISIT cancel appt Encounters Encounter Location Date Provider Diagnosis [facility] [address] [place] [address] 01/15/2024 Amor Dobbins Jr PLAN OF TREATMENT No Information
--- OUTSIDE RECORDS SUMMARY | 2024-05-01 16:53 | XMS_ITS | Patient Health Record ---
Author Organization [facility] Address [address] [place] [address] Care Team Providers Care Calenderer Name Role Phone RICKY GARZA, DAISY Primary Care Provider Unavailable Amor Dobbins Jr Unavailable [phone] ALLERGIES Allergen (clinical drug ingredient) Drug/Non Drug [...] Once a day for 30 day(s) Active Uujdqqsbjqk-Nifujeawr-Ymoevu 100-62.5-25 MCG/INH 1 puff Inhalation Once a [...] Notes Problem Epigastric pain (R10.13) Active confirmed 62528099 Problem Gastroesophageal reflux disease without esophagitis (K21.9) Active confirmed 551636576 Problem Iron deficiency anemia, unspecified iron deficiency anemia type (D50.9) Active confirmed 72849703 Problem Anemia, unspecified type (D64.9) Active confirmed 299144955 Problem Dysphagia, unspecified type (R13.10) Active confirmed 02067977 Problem Cirrhosis of liver without ascites, 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) Active confirmed 48932848 Encounters Encounter Location Date Provider Diagnosis [facility] [address] [place] [phone] 07/06/2023 Amor Dobbins Jr [facility] [address] [place] [phone] 09/18/2023 Amor Dobbins Jr [facility] [address] [place] [phone] 01/17/2024 Amor Dobbins Jr [facility] [address] [place] [phone] 07/06/2023 Amor Dobbins Jr [facility] [address] [place] [phone] 09/18/2023 Amor Dobbins Jr [facility] [address] [place] [phone] 01/15/2024 Amor Dobbins Jr PLAN OF TREATMENT Pending [...] 06/22/2018 UPPER GI ENDOSCOPY 10/30/2019 COLONOSCOPY 10/30/2019 Insurance Providers Payer Name Payer Address Payer Phone Subscriber Number Group Number Insured Name Patient Relationship to Insured Coverage Start Date Coverage End Date [facility] [address] [place] [phone] [id number] TOMMY CHOU Self - patient is the insured MEDICAL (GENERAL) HISTORY Medical History History ICD Code colonoscopy 12/11/19, right co camilla AVMs, no polyps, previous history of adenomas, followup optional based on age. hepatitis C, rx IFN X2, Harvoni X 24 wee ks 2014, sustained response. seizure disorder diabetes arthritis pulmonary embolism anemia Gastroesophageal reflux disease, EGD 12/10 0, grade 1 varices. Cirrhosis hypertension Surgical History Surgery Date(Month/Year) hysterectomy cholecystectomy Thyroid surgery cataract-lens implants kidney stones removed
== END 2024-05-01 14:26 | disposition home or self-care (01) ==
LOC: HO.HOSX 14:25
PROVIDERS: PCP Physician Assistant; Visit Provider Physician Assistant
DX: Z98.1 Arthrodesis status (principal)
CPT/HCPCS: 72050; 99212

== ENCOUNTER 2024-06-19 14:31 | Outpatient (AMB) | payer OTHER, SELFPAY ==
--- NOTE | 2024-06-19 14:25 | HO.SPINEOV ---
Intake Visit Reasons: persistent neck pain Intake Note: Ms. Corea is here today c/o persistent neck pain. Color Checker Roving Or Yarn Required: Yes Color Checker Roving Or Yarn Name: Leonie العراقي (Daughter) Allergies bee pollen [bee stings] Allergy (Severe, Verified 03/26/24 13:28) Anaphylaxis lidocaine [From LIDODERM] Allergy (Severe, Verified 03/26/24 13:28) BLISTERS from adhesive morphine [MORPHINE] Allergy (Severe, Verified 03/26/24 13:28) PO will cause itching, can tolerate IV Penicillins [PENICILLINS] Allergy (Severe, Verified 03/26/24 13:28) SWELLING/ITCHING gabapentin [GABAPENTIN] Allergy (Intermediate, Verified 03/26/24 13:28) SORES IN MOUTH- AGITATION enalapril Adverse Reaction (Severe, Verified 03/26/24 13:28) hyperkalemia Ampicillin Allergy (Intermediate, Uncoded 03/05/24 07:14) Rash and Hives Assessment & Plan Assessment & Plan (1) S/P cervical spinal fusion: Code(s): Z98.1 - Arthrodesis status Category: Surgical Plan HPI: Leonie is a pleasant 78 year old female who comes in today for a follow-up visit after having a C3-[address] Fernando to treat her progressive cervical myelopathy. To recap she was initially seen in clinic for pain in the posterior part of her cervical spine radiating up to the back of her head with feelings of tingling and numbness going down to arms and her hands. Today she reports that she continues to have posterior neck pain, but feels the rest of her symptoms have resolved. We attempted to treat this with a course of muscle relaxers after her last postoperative visit. She reports that these were not helpful for her. She has tried at home stretching and OTC medications without relief of her pain. Exam: The patient has 5/5 strength in her bilateral upper extremities. Her Lynch's was (-) alongside clonus (-) but she is fairly rigid for the exam and had a hard time relaxing her muscles. She does not have any hyperreflexia or sensational deficits. Imaging: I reviewed her previous MRI and X-ray imaging. She did have quite a bit of compression below the C3-4 segment, specifically at C4-5 as well where there is notable cord compression. This was not as severe at C3-4. Her X-ray imaging from her last visit was reassuring, and showed stable placement of the surgical construct. Plan: I would like to send Leonie for a course of occupational therapy to see if this helps with her posterior neck pain. If it does not subside after occupational therapy I would like to order repeat cervical MRI. Gerardo Fernando MD,PhD [facility] Orders: Orders OT Evaluation and Treatment Today Z98.1 - Arthrodesis status Coding Level of Care Code Tele Est Pt Level 2 (25274) Diagnoses S/P cervical spinal fusion Z98.1
--- OUTSIDE RECORDS SUMMARY | 2024-06-19 17:10 | XMS_ITS ---
Author Organization [facility] Address [address] [place] [address] Care Team Providers Care Soc Analyst Name Role Phone RICKY GARZA, DAISY Primary Care Provider Unavailable Amor Dobbins Jr REASON FOR VISIT cancel appt Encounters Encounter Location Date Provider Diagnosis [facility] [address] [place] [address] 01/15/2024 Amor Dobbins Jr Plan Of Treatment No Information Progress Notes * TOMMY CHOU EDOB:1945 (78 yo F)Acc No.[id number]:01/15/2024 Patient:?TOMMY CHOU :1945???Age:78 Y???Sex:Female Address:[address] [place] [address], [place] [address] * true * Date:? Generated for Printi ng/Famatildeg/eTransmitting on:?06/19/2024 05:10 PM EDT
--- OUTSIDE RECORDS SUMMARY | 2024-06-19 17:10 | XMS_ITS | Clinical Summary ---
Author Organization [facility] Address [address] [place] [address] Care Team Providers Care Stable Cleaner Name Role Phone Massimo Mcclellan Primary Care Provider [phone] Source Comments PLEASE NOTE, if this patient is a minor, it may be UNLAWFUL to discuss sensitive information that is contained in these records (such as FAMILY PLANNING, MENTAL HEALTH or SUBSTANCE ABUSE) with the minor patient's parent or other person without the patient's specific authorization.[facility] Allergies Active Allergy Reactions Criticality Noted Date Comments Bee Sting Hives,Itching,Rash,S w elling Low 08/08/2022 Codeine Phosphate 06/23/2021 Other reaction(s): Unknown Enalapril Other (See Comments) High 08/07/2020 Hyperkalemia per patient reports Gabapentin 06/06/2024 Lidocaine Itching High 07/19/2017 Other reaction(s): Hives/Urticaria, patches, Rash/Dermatitis Other Reaction(s): hives Linagliptin Other (See Comments) 05/06/2024 Nausea, vomiting and headaches Metformin GI intolerance 05/06/2024 Constipation Morphine Itching,Rash High 11/07/2017 Other reaction(s): itchy, Unknown Other Reaction(s): itchy Penicillins Hives,Itching,Nausea and Vomiting,Swelling High 12/22/2015 Other reaction(s): Hives/Urticaria, RASH, Rash/Dermatitis, Unknown Sulfamethoxazole-Trim ethoprim 08/08/2022 Other reaction(s): hyperkalemia Hyperkalemia when used [...] years -BMI 28.34 1 Each 2023 Active blood sugar diagnostic stripsIndication s:Type 2 diabetes mellitus with diabetic nephropathy, with long-term current use of insulin ([facility]),Type 2 diabetes mellitus with diabetic peripheral angiopathy without gangrene, with long-term current use of insulin ([facility]) Use to test blood glucose three times daily. (Freestyle Lite) 100 Each 11 2023 Active lancets (FREESTYLE LANCETS) 28 gaugeIndications :Type 2 diabetes mellitus with diabetic nephropathy, with long-term current use of insulin ([facility]),Type 2 diabetes mellitus with diabetic peripheral angiopathy without gangrene, with long-term current use of insulin ([facility]) Use to test blood glucose three times daily. (Freestyle Lancets) 100 Each 11 2023 Active alcohol swabsIndications :Type 2 diabetes mellitus with diabetic nephropathy, with long-term current use of insulin ([facility]),Type 2 diabetes mellitus with diabetic peripheral angiopathy without gangrene, with long-term current use of insulin ([facility]) Use to test blood glucose three times daily. 100 Each 2023 Active LORazepam (ATIVAN) 0.5 mg tablet Take 1 Tablet by mouth 3 (three) times daily as needed for anxiety or sleep 90 Tablet 1 2023 Active acetaminophen (TYLENOL) 500 mg tabletIndication s:Other diabetic neurological complication associated with type 2 diabetes mellitus ([facility]),Fibrom yalgia,Osteoarth ritis, unspecified osteoarthritis type, unspecified site Take 2 Tablets by mouth every 6 (six) hours as needed for pain 60 Tablet 2 2023 Active glucagon (BAQSIMI) 3 mg/actuation spry PLACE 3 MG INTO THE NOSTRIL(S) EVERY MORNING 2 Each 2 2023 Active naloxone (NARCAN) 4 mg/actuation nasal spray Place 1 [place] into the nostril(s) as needed for opioid reversal (Overdose) 2 Each 2023 Active diaper,brief,jarret lt,disposableInd ications:Urinary incontinence without sensory awareness Use one large brief up to 3 times daily. 120 Each 2023 Active nut.tx.gluc.into l,lac-free,soy (GLUCERNA ADVANCE) liqdIndications: [...] 2023 Active triamcinolone (KENALOG) 0.025 % cream [facility]/pharmacy #[address] [place] [address] 60 g 0 Days Supply: 10Sig: APLIQUE AL JACOBO AFECTADA TOPICALLY DOS VECES AL D A POR 10 D ASSource: 2 Outside SourcesAuthorized by: THO HERNANDEZ 2023 Active montelukast (SINGULAIR) 10 mg tablet Take 1 Tablet by mouth nightly at bedtime (Prescribed by turbo electric operator Dr. Berkowitz) 2023 Active isosorbide mononitrate ER (IMDUR) 30 mg 24 hr tabletIndication s:Primary hypertension,Per ipheral venous insufficiency TOME GAGE TABLETA POR VIA ORAL CADA MANANA 90 Tablet 2 2023 Active busPIRone (BUSPAR) 15 mg tablet [...] mouth 2 (two) times Daily (Prescribed by turbo electric operator - Dr. Michael Berkowitz) 2023 Active amLODIPine (NORVASC) 10 mg tabletIndication s:Essential hypertension Take 1 Tablet by mouth every morning For blood pressure. 90 Tablet 1 2023 Active atorvastatin (LIPITOR) 20 mg tabletIndication s:Type 2 diabetes mellitus with diabetic peripheral angiopathy without gangrene, with long-term current use of insulin ([facility]),Mixed hyperlipidemia Take 1 Tablet by mouth nightly at bedtime stop pravastatin 10 mg 90 Tablet 1 2023 Active levocetirizine (XYZAL) 5 mg tablet Take 1 Tablet by mouth every evening [facility]/pharmacy #[id number] [place], [place] [phone] 90 Each 0 Days Supply: 90Sig: TAKE 1 TABLET BY MOUTH DAILY BEFORE DINNER NEEDED FOR ALLERGIESSource: 2 Outside SourcesAuthorized by: ANDREAS GARCÍA AR 90 Tablet 1 2023 Active famotidine (PEPCID) 40 mg tablet TOME GAGE TABLETA POR VIA ORAL AT NOCHE AL ACOSTARSE CUANDO SEA NECESARIO PARA LA ACIDEZ 90 Tablet 1 2023 Active ferrous sulfate 325 mg (65 mg iron) tabletIndication s:Iron deficiency TAKE 1 TABLET BY MOUTH ONCE DAILY WITH BREAKFAST 90 Tablet 1 2024 Active acetaminophen (TYLENOL 8 HOUR) 650 mg CR tabletIndication s:Routine adult health maintenance TAKE 1 TABLET BY MOUTH EVERY 8 HOURS NEEDED FOR PAIN INDICATIONS: PAIN ASSOCIATED WITH ARTHRITIS 90 Tablet 1 2024 Active GAVILYTE-G 236-22.74-6.74 -5.86 gram solution 2024 Active baclofen 5 mg tab 2024 Active insulin degludec (TRESIBA FLEXTOUCH U-200) 200 unit/mL (3 mL)Indications:T ype 2 diabetes mellitus with diabetic peripheral angiopathy without gangrene, with long-term current use of insulin ([facility]) Inject 16 Units into the skin nightly at bedtime Increased dosing 9 mL 5 2024 Active glucose 4 gram chewable tabletIndication s:Type 2 diabetes mellitus with diabetic peripheral angiopathy without gangrene, with long-term current use of insulin ([facility]) Place 4 Tablets into mouth, chew and swallow as needed for low blood sugar (Less than 90 mg/dL) 30 Tablet 5 2024 Active insulin aspart (NOVOLOG FLEXPEN U-100 INSULIN) 100 unit/mL (3 mL)Indications:T ype 2 diabetes mellitus with diabetic peripheral angiopathy without gangrene, with long-term current use of insulin ([facility]) Inject 2-6 Units into the skin 3 (three) times daily before meals (Do not use if blood glucose is less than 100 mg/dL) - max 18 units/day 15 mL 3 2024 Active oxyCODONE (ROXICODONE) 5 mg tabletIndication s:Osteoarthritis , unspecified osteoarthritis type, unspecified site,Fibromyalgi a,Diabetic polyneuropathy associated with type 2 diabetes mellitus ([facility]) Take 2 Tablets by mouth every 6 (six) hours as needed for pain for up to 28 days 112 Tablet 06/21 Active esomeprazole (NEXIUM) [address] capsule TOME GAGE CAPSULA TODOS LOS HDZ EN LA MANANA ANTES DEL DESAYUNO 90 Capsule 2024 Active escitalopram (LEXAPRO) 20 mg tablet TOME 1 TABLETA POR VIA ORAL TODOS LOS HDZ 90 Tablet 1 2024 Active venlafaxine (EFFEXOR) 37.5 mg tabletIndication s:Cervical pain (neck),Fibromyal wong Take 1 Tablet by mouth daily 90 Tablet 1 2024 Active esomeprazole (NEXIUM) [address] capsule TOME GAGE CAPSULA TODOS LOS HDZ EN LA MANANA ANTES DEL DESAYUNO 90 Capsule 1 05/31 Discontinued insulin aspart (NOVOLOG FLEXPEN U-100 INSULIN) 100 unit/mL (3 mL)Indications:T ype 2 diabetes mellitus with diabetic peripheral angiopathy without gangrene, with long-term current use of insulin ([facility]) Inject 2-6 Units into the skin 3 (three) times daily before meals (Do not use if blood glucose is less than 100 mg/dL) - max 18 units/day 15 mL 3 05/21 Discontinued( Reorder (E-Cancel Not Sent)) escitalopram (LEXAPRO) 20 mg tablet TOME 1 TABLETA POR VIA ORAL TODOS LOS HDZ 90 Tablet 1 05/31 Discontinued oxyCODONE (ROXICODONE) 5 mg tabletIndication s:Osteoarthritis , unspecified osteoarthritis type, unspecified site,Fibromyalgi a,Diabetic polyneuropathy associated with type 2 diabetes mellitus ([facility]) Take 2 Tablets by mouth every 6 (six) hours as needed for pain for up to 28 days 224 Tablet 05/24 Discontinued( Reorder (E-Cancel Not Sent)) Active Problems [...] right colon Cervical facet syndrome 08/08/2022 08/09/19 23 Diabetic peripheral angiopathy ([facility]) 023 08/08/2022 Dry skin 08/08/2022 08/08/2022 Dysphagia 08/08/2022 08/08/2022 Incontinence of urine 08/08/2022 08/08/2022 Early onset Alzheimer's dementia ([facility]) 08/0808/08/2022 Epigastric pain 08/08/2022 08/08/2022 Left ventricular hypertrophy 08/08/202204/2022 Overview (03/05/2024): 12/20/23 at [facility] Cardio Chest pain Improved with Imdur; [...] may be normal for the patient's age. longterm current use of anticoagulant therapy 0 08/08/2022 08/08/2022 Memory impairment 08/08/2022 08/08/2022 Myofascial muscle pain 08/08/2022 JENNIFER (obstructive sleep apnea) 08/08/2022 Oxygen dependent 08/08/2022 08/08/2022 Restless leg syndrome 08/08/2022 08/08/2022 Subclinical hypothyroidism 08/08/202208/08 Unspecified cirrhosis of liver ([facility]) 023 08/08/2022 Vascular dementia ([facility]) 08/08/2022 05/0 04/2022 Cataract 11/07/2017 08/08/2022 Overview (08/08/2022): left catarct surgery on 08/28/08 by SURGEON: Tana Coronado M.D. left catarct surgery on 08/28/08 by SURGEON: Tana Coronado M.D. CKD (chronic kidney disease) stage 3, GFR 30-59 ml/min ([facility]) 11/07/2017 08/08/2022 Meniere disease 11/07/2017 08/08/2022 Overview (08/08/2022): 2016 Dr Baker Pulmonary hypertension ([facility]) 11/07/2017 08/08/2022 Overview (08/08/2022): b/l submassive PE diagnosed on Dec 20 in [facility] b/l submassive PE diagnosed on Dec 20 in [facility] 2016 DAVID RVSP- 46 Tubular adenoma of colon 11/07/2017 023 Overview (08/08/2022): 2005 Hyperparathyroidism ([facility]) 08/29/2017 Overview (08/08/2022): Right lower parathyroidectomy. 06/16/08 SURGEON: Danny Marie M.D. BURRER OPERATOR: Naima Bowling M.D. Kidney stone 08/29/2017 08/08/2022 Hyperlipidemia LDL goal <70 08/29/2017 05/0 04/2022 Essential hypertension 08/29/2017 Seizure disorder ([facility]) 08/29/201708/08 Overview (08/08/2022): Not on medication Viral hepatitis C 08/29/2017 08/08/2022 Osteoarthrosis 08/23/2017 08/08/2022 Overview (08/08/2022): EGD on 06/24/16 by GI, Dr Damien caballero gastritis and esophageal varices grade 1 Lumbar spine Allergic rhinitis 08/23/2017 08/08/2022 Depression 08/23/2017 08/08/2022 Asthma-chronic obstructive p ulmonary disease overlap syndrome ([facility]) 08/23/2017 08/08/2022 Type 2 diabetes mellitus wit h diabetic peripheral angiopathy without gangrene, with long-term current use of insulin ([facility]) 08/23/2017 08/08/2022 Overview (05/06/2024): DM dx: 51 years old per patient [...] (05/12/14) PPSV23 (11/10/10, 05/20/04) Diabetes foot exam: 04/25/24 at [facility] - notes on file 02/21/24 at [facility] - notes on file Diabetes retinal exam: 04/24/24 at [facility] Diabetes without retinopathy or macular edema OU - monitor regularly Pseudophakia OU - stable - continue to monitor Dry eye syndrome - asymptomatic today - Ats if needed can re-start Dermatochalasis - somewhat symptomatic, but not interested in surgery - monitor Hyperopia - refractive error - dispensed new glasses RX, optional F/U 1 year [facility] Endocrinology: 11/24/22 Start Tradjenta 5 mg [...] valve insufficiency 05/24/2017 Overview (03/05/2024): 12/20/23 at [facility] Cardio Chest pain Improved with Imdur; [...] dysfunction 05/24/2017 08/08/2022 Overview (03/05/2024): 12/20/23 at [facility] Cardio Chest pain Improved with Imdur; [...] normal for the patient's age. Esophageal varices ([facility]) 06/24/201604/2022 Overview (08/08/2022): endoscopy 10/05/2018 w non bleeding grade 1 esophageal varicesEGD on 06/24/16 by GIDr Damien gastritis and esophageal varices grade 1 06/2106 EGD, Grade 1 endoscopy 10/05/2018 w non bleeding grade 1 esophageal varicesEGD on 06/24/[address] Damien CARUSO gastritis and esophageal varices grade 1 Right ventricular dilation 12/22/201508/08 Overview (08/08/2022): TTE 12/22/15 in [facility]: RV dilatation, RVSP 46 TTE 12/22/15 in [facility]: RV dilatation, RVSP 46 Anemia 12/21/2015 08/08/2022 Deep vein thrombosis (DVT) ([facility]) 12/21/2015 08/08/2022 Overview (08/08/2022): LE US- DVT involving 2 of 2 peroneal veins diagnosed on Dec 20 [facility] LE US- DVT involving 2 of 2 peroneal veins diagnosed on Dec 20 [facility] Positive PPD 10/09/2014 08/08/2022 Overview (08/08/2022): [...] Peripheral venous insufficiency 10/31/2011 08/08/2022 Diabetic neuropathy ([facility]) 09/19/2007 Sciatica 05/24/2004 08/08/2022 Tubular adenoma 04/10/2004 08/08/2022 Overview (08/08/2022): catherine colo July 2009 exc for 2 hyperplastic polypsColonoscopy [facility] [place] per letter of Dr Amor Dobbins Tubular adenoma 04/10/2004 08/08/2022 Overview (08/08/2022): catherine colo July 2009 exc for 2 hyperplastic polypsColonoscopy 2005 at [facility] per letter of Dr Amor Dobbins Encounters Date Type Department Care Team Description 06/06/2024 3:20 PM EST Telemedicine Visit [facility] [address] [place] [phone] Mark Morales NP Cervical pain (neck) (Primary Dx); Fibromyalgia 05/06/2024 3:20 PM EST Office Visit [facility] [address] [place] [address] Darwin Encinas, PharmD Type 2 diabetes mellitus with diabetic peripheral angiopathy without gangrene, with long-term current use of insulin ([facility]) (Primary Dx); Essential hypertension; Hyperlipidemia LDL goal <70 from Last 3 Months Immunizations Name Administration [...] Sign Reading Time Taken Comments Blood Pressure 110/56 05/06/2024 3:36 PM EST Pulse 69 05/06/2024 3:36 PM EST Temperature 36.8 ??C (98.3 ??F) 12/27/2023 3:04 PM ED T Respiratory Rate 16 05/06/2024 3:36 PM EST Oxygen Saturation 98% 05/06/2024 3:36 PM EST Inhaled Oxygen Concentration - - Weight 67.1 kg (148 lb) 05/06/2024 3:36 PM EST Height 160 cm (5' 3 ) 05/06/2024 3:36 PM EST Body Mass Index 26.22 05/06/2024 3:36 PM EST Plan of Treatment Upcoming Encounters Date Type Department Care Team (Late st Contact Info) Description 07/24/2024 3:40 PM EDT Office Visit [facility] [address] [place] [address] Darwin Encinas, PharmD [address] [place] [address] Health Maintenance Due Date Last Done Comments Dental Examination 1945 Urine Drug Screen 1944 Imm-Hepatitis A (1 of 2 - Ri sk 2-dose series) 07/06/1963 Imm-Hepatitis B (1 of 3 - Ri sk 3-dose series) 2004 Hepatocellular Carcinoma Scr eening (HCC) 04/23/2023 10/21/2022 Depression Monitoring 01/25/2024 10/25/2023 , 05/08/2023, 08/08/2022 Lipid Screening 05/08/2024 05/08/2023, 12/23/2015 Imm-DTaP/Tdap/Td (2 [...] Completed 05/12/2014, 11/10/2010, 05/20/2004 Imm-Zoster, Recombinant Completed 12/09/19, 09/15/2021, 10/16/2012 Bone Density Screening Completed 11/22/2022 [id number]-[id number]-25 Completed 12/27/2023, 11/0 10/2022, 05/25/2022, Additional history exists Imm-Influenza Completed 12/27/2023, 04/11, 05/25/2022, Additional history exists Retinopathy Screening Discontinued 04/24/2024, 025 Alcohol and Drug Screen Completed 05/06/19, 05/08/2023, 05/08/2023, Additional history exists Procedures Procedure Name Priority Date/Time Associated Diagnosis Comments GLUCOSE, BLOOD BY GLUCOSE MONITORING DEVICE (CLIA WAIVED)POCT Routine 05/06/2024 3:38 PM EST Type 2 diabetes mellitus with diabetic peripheral angiopathy without gangrene, with long-term current use of insulin ([facility]) REFERRAL SCANNED DOCUMENT 05/02/2024 3:00 AM EST REFERRAL SCANNED DOCUMENT 05/01/2024 3:00 AM EST IMAGING SCANNED DOCUMENT 05/01/2024 3:00 AM EST IMAGING SCANNED DOCUMENT 05/01/2024 3:00 AM EST HEMOGLOBIN GLYCOSYLATED A1C Routine 04/24/2024 1:09 PM EST Type 2 diabetes mellitus with diabetic peripheral angiopathy without gangrene, with long-term current use of insulin ([facility]) EYE EXAM 04/24/2024 3:00 AM EST EYE EXAM 04/24/2024 3:00 AM EST REFERRAL SCANNED DOCUMENT 03/26/2024 3:00 AM EST TSH W/RFLX FREE T4 Routine 10/25/2023 11 :27 AM EDT Hyperparathyroidism ([facility]) Prediabetes COMPREHENSIVE METABOLIC PANEL Routine 10/25/2023 11:27 AM EDT Cirrhosis of liver without ascites, unspecified hepatic cirrhosis type ([facility]CC[facility]) Hyperparathyroidism ([facility]) Type 2 diabetes mellitus with diabetic peripheral angiopathy without gangrene, with long-term current use of insulin ([facility]) Diabetic mononeuropathy associated with type 2 diabetes mellitus ([facility]) Hepatitis C virus infection without hepatic coma, unspecified chronicity Resistant hypertension MICROALBUMIN/CREATINI NE RATIO, URINE, RANDOM Routine 07/26/2023 2:42 PM EDT Type 2 diabetes mellitus with diabetic nephropathy, with long-term current use of insulin ([facility]) LIPID PANEL Routine 05/08/2023 3:04 PM EST Hypercholesterolemia HISTORIC DEXA SCAN 11/22/2022 3: 00 AM EDT US ABDOMEN ULTRASOUND Routine 10/21/2022 3:00 AM EDT Abdominal pain, unspecified abdominal location UPPER GI ENDOSCOPY Routine 08/08/2022 11 :41 AM EDT Varices of esophagus determined by endoscopy ([facility]) from Last 3 Months or Most Recently Relevant to Health Maintenance Results * (ABNORMAL) GLUCOSE, BLOOD BY GLUCOSE MONITORING DEVICE (CLIA WAIVED)POCT (05/06/2024 3:38 PM EST) GLUCOSE 155(A) 70 - 100 mg/dL [facility]- BACK OFFICE POCT Capillary Blood Blood / Unknown 3:38 PM EST us Darwin Encinas PharmD LAB - BLOOD DRAW Final Re sult [facility]- BACK OFFICE POCT * REFERRAL SCANNED DOCUMENT (05/02/2024 3:00 AM EST) Only the most recent of3 resultswithin the time period is included. 05/02/2024 3:00 AM EST Massimo Mcclellan PA SCAN REFERRAL Final Result * IMAGING SCANNED DOCUMENT (05/01/2024 3:00 AM EST) Only the most recent of2 resultswithin the time period is included. 05/01/2024 3:00 AM EST us Massimo PACHECO SCAN IMAGING Final Result * (ABNORMAL) HEMOGLOBIN GLYCOSYLATED A1C (04/24/2024 1:09 PM EST) HEMOGLOBIN A1C 8.7(H) <5.7 % of total Hgb [facility] Comment: For someone without known diabetes, a [...] PM EST 04/24/2024 1:09 PM EST Narrative [facility] - 04/25/2024 3:26 AM EST FASTING:NO Darwin SmallD LAB - BLOOD DRAW Final Re sult [facility] [address] [place] [address], [employer] [address] [address] * EYE EXAM (04/24/2024 3:00 AM EST) Only the most recent of2 resultswithin the time period is included. 04/24/2024 3:00 AM EST us Massimo PACHECO OTHER Edited Result - Final * TSH W/RFLX FREE T4 (10/25/2023 11:27 AM EDT) Pathologist [facility] TSH W/REFLEX TO FT4 2.80 0.40 - 4.50 mIU/L [employer] [facility] Blood Blood / Unknown 10/25/2023 1 1:27 AM EDT 10/25/2023 11:27 AM EDT Massimo PACHECO LAB - BLOOD DRAW Final Result [facility] [address] [address], [employer] [facility] [address] [place] [address] * (ABNORMAL) COMPREHENSIVE METABOLIC PANEL (10/25/2023 11:27 AM EDT) Pathologist [facility] GLUCOSE 118(H) 65 - 99 mg/dL [employer] [facility] Comment: ?Fasting reference interval For someone without known diabetes, a glucose value between 100 and 125 mg/dL is consistent with prediabetes and should be confirmed with a follow-up test. UREA NITROGEN (BUN) 16 7 - 25 mg/dL [facility] CREATININE (blood) 0.85 0.60 - 1.00 mg/dL [facility] EGFR 70 > OR = 60 mL/min/1. 73m2 [facility] BUN/CREATININE RATIO SEE NOTE: [facility] Comment: ?? Not Reported: BUN and Creatinine are within ?? reference range. ? SODIUM 142 135 - 146 mmol/L [facility] POTASSIUM 4.8 3.5 - 5.3 mmol/L [facility] CHLORIDE 104 98 - 110 mmol/L [facility] CARBON DIOXIDE 29 20 - 32 mmol/L [facility] CALCIUM 9.5 8.6 - 10.4 mg/dL [facility] PROTEIN, TOTAL 7.0 6.1 - 8.1 g/dL [facility] ALBUMIN 4.3 3.6 - 5.1 g/dL [facility] GLOBULIN 2.7 1.9 - 3.7 g/dL (calc) [facility] ALBUMIN/GLOBULI N RATIO 1.6 1.0 - 2.5 (calc) [facility] BILIRUBIN, TOTAL 0.5 0.2 - 1.2 mg/dL [facility] ALKALINE PHOSPHATASE 87 37 - 153 U/L [employer] [facility] AST 16 10 - 35 U/L [employer] [facility] ALT 10 6 - 29 U/L [employer] [facility] Blood Blood / Unknown 10/25/2023 1 1:27 AM EDT 10/25/2023 11:27 AM EDT Massimo PACHECO LAB - BLOOD DRAW Final Result Performing Organization Address City/[facility] Co de Phone Number [email or web address] [address] [address], [employer] [address] [address] * MICROALBUMIN/CREATININE RATIO, URINE, RANDOM (07/26/2023 2:42 PM EDT) CREATININE, RANDOM URINE 140 20 - 275 mg/dL [facility] MICROALBUMIN 1.2 mg/dL [employer] [facility] Comment: Reference Range Not established MICROALBUMIN/CREA TININE RATIO, RANDOM URINE 9 <30 mg/g creat [facility] Comment: The ADA defines abnormalities in albumin [...] - NO BLOOD DRAW Final R esult Performing Organization Address City/[facility]/ZIP Co de Phone Number [facility] [address] [address], [employer] [address] [address] * (ABNORMAL) LIPID PANEL (05/08/2023 3:04 PM EST) [facility] Signature CHOLESTEROL, TOTAL 197 <200 mg/dL [employer] [facility] HDL CHOLESTEROL 61 > OR = 50 mg/dL [facility] TRIGLYCERIDES 317(H) <150 mg/dL [facility] Comment: If a non-fasting specimen was collected, consider repeat triglyceride testing on a fasting specimen if clinically indicated. Lexi et al. J. of Clin. Lipidol. 2015;9:129-169. LDL-CHOLESTEROL 94 99 mg/dL (calc) [facility] Comment: Reference range: <100 Desirable range <100 mg/dL for primary prevention; ?? <70 mg/dL for patients with CHD or diabetic patients with > or = 2 CHD risk factors. LDL-C is now calculated using the Alvarez calculation, which is a validated novel method providing better accuracy than the Friedewald equation in the estimation of LDL-C. Gilles SPENCER et al. JESUS. 2013;310(19): 3890-5233 (http://education.LoanLogics/faq/GNF913) CHOL/HDLC RATIO 3.2 <5.0 (calc) [facility] NON-HDL CHOLESTEROL 136(H) <130 mg/dL (calc) [facility] Comment: For patients with diabetes plus 1 major ASCVD risk factor, treating to a non-HDL-C goal of <100 mg/dL (LDL-C of <70 mg/dL) is considered a therapeutic option. Blood Blood / Unknown 05/08/2023 3 :04 PM EST 05/08/2023 3:05 PM EST us Massimo PACHECO LAB - BLOOD DRAW Final Result [facility] [address] [place] [address], [facility] [address] [place] [phone] * HISTORIC DEXA SCAN (11/22/2022 3:00 AM EDT) 11/22/2022 3:00 AM EDT us Massimo PACHECO IMG DXA Final Result * US ABDOMEN ULTRASOUND (CAPE COD) (10/21/2022 3:00 AM EDT) 10/21/2022 3:00 AM EDT Massimo PACHECO IMG ULTRASOUND Edited Result - Final from Last 3 Months or Most Recently Relevant to Health Maintenance Insurance [facility] Member Subscriber Plan / Payer ( fective 2017-Present) Name:Leonie Corea Relation to Subscriber:Self Name:Leonie Corea Payer ID:[id number] Group ID:Not on file Type:Medicare Address: [address] Member Subscriber Plan / Payer ( fective 2012-Present) Name:Leonie Corea Relation to Subscriber:Self Name:Leonie Corea Payer ID:[id number] Group ID:Not on file Type:Indemnity Address: [facility] [address] [address] Care Teams Stable Cleaner Relationship Specialty Start Date End Date Massimo Mcclellan PA [address] [place] [address] PCP - General FAMILY MEDICINE, [place] 05/13/22
--- OUTSIDE RECORDS SUMMARY | 2024-06-19 17:10 | XMS_ITS | Encounter Summary ---
Author Organization [facility] Address [address] [place] [address] Care Team Providers Care Wire Bound Box Machine Operator Name Role Phone Massimo Mcclellan Primary Care Provider Reason for Referral * Pain Medicine (Routine) - Pending Review Specialty Diagnoses / Procedures Referred By Yesi hopkins Referred To Contact Diagnoses Cervical pain (neck) Fibromyalgia Mark Morales NP [address] [place] [address] Phone: tel: fax: Management, [facility] [address] [place], [place] Phone: tel: fax: Referral ID Status Reason Start Date Expiration Date Visits Requested Visits Authorized [id number] Pending Review Specialty Services Required 06/06/2024 06/06/2025 1 1 Comments Patient is 78 year old female with chronic neck pain. Reports having surgery to neck in February 2024 at [facility]. Patient continues with current pain and manged on oxycodone & Tylenol Patient [place] to go near [place] if possible. Please eval * Physical Therapy (Routine) - Pending Review Specialty Diagnoses / Procedures Referred By Yesi hopkins Referred To Contact Diagnoses Cervical pain (neck) Fibromyalgia Mark Morales NP [address] [place] [address] Phone: tel: fax: Therapy, [facility] [address] [place] [address] Phone: tel: fax:[phone] Referral ID Status Reason Start Date Expiration Date Visits Requested Visits Authorized [id number] Pending Review Specialty Services Required 06/06/2024 06/06/2025 1 1 Comments Patient is 78 year old female with chronic neck pain. Reports having surgery to neck in February 2024 at [facility] Patient [place] to go near [place] if possible. Please eval Encounter Details Date Type Department Care Team (Latest Contact Info) Description 06/06/2024 3:20 PM EST Telemedicine Visit [facility] [address] [place] [address] Mark Morales NP [address] [place] [address] Cervical pain (neck) (Primary Dx); Fibromyalgia Social History Tobacco Use Types Packs/Day Years Used Date Smoking Tobacco: Never Smokeless Tobacco: Never Alcohol Use Standard Drinks/Week Comments Not Currently [...] Orientation Straight 05/19/2022 6: 04 AM PST documented as of this encounter Progress Notes * Mark Morales NP - 06/06/2024 3:05 PM EST The following visit was conducted via phone. I educated the patient on the terms of telehealth and the patient verbally consented to this telemedicine visit. The patient was identified using their Name, and [facility] ID. I identified myself as Mark LÓPEZ from [facility]. It was conducted in a private space to protect HIPPA sensitive information. Precautions were taken to provide confidentiality and security and patient was made aware of privacy considerations. The patient was notified that the services were being provided remotely from POD or exam room. The patient was notified that they can see a clinician in-person in the event of an emergency or if otherwise needed. Start time: 03:06 End time: 3:20 SUBJECTIVE Wood Flooring Specialist: Patient provides own interpretor Fior (daughter) HPI: Leonie Corea is a 78 year old female patient who presents for telehealth today for concerns of generalized pain and neck pain. Daughter reports patient had neck surgery at [facility] this past February and still continues to have a lot of pain and discomfort. Daughter reports patient maria elena been utilizing PRN oxycodone and tylenol for pain management. Daughter requesting for refill on oxycodone. Patient reports she has tried to reach out to patient's surgeon, but was told she would have to wait at least 6 months prior to being evaluated again by surgical provider. Upon chart review patient had recent script sent to pharmacy on 05/24/24 that was to last at least 28 days. Patient reports interest in trying physical therapy as well as referral to pain management for further evaluation and treatment. Patient Active Problem List Diagnosis ??? Fibromyalgia ??? Hx laparoscopic cholecystectomy ??? Osteoarthrosis ??? H/O: hysterectomy ??? Tricuspid valve insufficiency ??? Obesity ??? Hyperparathyroidism (HCC-CMS) ??? Tubular adenoma ??? Tubular adenoma ??? Allergic rhinitis ??? Anemia ??? Depression ??? Arteriovenous malformation of large intestine ??? Asthma-chronic obstructive pulmonary disease overlap syndrome (HCC-CMS) ??? Calcium oxalate crystals present in urine ??? Kidney stone ??? Cataract ??? Cervical facet syndrome ??? CKD (chronic kidney disease) stage 3, GFR 30-59 ml/min (HCC-CMS) ??? Deep vein thrombosis (DVT) (HCC-CMS) ??? Type 2 diabetes mellitus with diabetic peripheral angiopathy without gangrene, with long-term current use of insulin (HCC-CMS) ??? Diabetic neuropathy (HCC-CMS) ??? Diabetic peripheral angiopathy (HCC-CMS) ??? Diastolic dysfunction ??? Dry skin ??? Dysphagia ??? Incontinence of urine ??? Early onset Alzheimer's dementia (HCC-CMS) ??? Epigastric pain ??? Esophageal varices (HCC-CMS) ??? History of DVT (deep vein thrombosis) ??? History of pulmonary embolism ? ? Hyperlipidemia LDL goal <70 ??? Essential hypertension ??? Left ventricular hypertrophy ??? USP current use of anticoagulant therapy ??? Memory impairment ??? Meniere disease ??? Myofascial muscle pain ??? JENNIFER (obstructive sleep apnea) ??? Osteopenia ??? Oxygen dependent ??? Peripheral venous insufficiency ??? Positive PPD ??? Insomnia ??? Pulmonary hypertension (HCC-CMS) ??? Restless leg syndrome ??? Right ventricular dilation ??? Sciatica ??? Seizure disorder (HCC-CMS) ??? Subclinical hypothyroidism ??? Tubular adenoma of colon ??? Unspecified cirrhosis of liver (HCC-CMS) ??? Vascular dementia (HCC-CMS) ??? Viral hepatitis C ??? Food insecurity ??? Mixed stress and urge urinary incontinence Current Outpatient Medications on File Prior to Visit Medication Sig Dispense Refill ??? escitalopram (LEXAPRO) 20 mg tablet TOME 1 TABLETA POR VIA ORAL TODOS LOS HDZ 90 Tablet 1 ??? esomeprazole (NEXIUM) [address] capsule TOME GAGE CAPSULA TODOS LOS HDZ EN LA MANANA ANTES DEL DESAYUNO 90 Capsule 0 ??? oxyCODONE (ROXICODONE) 5 mg tablet Take 2 Tablets by mouth every 6 (six) hours as needed for pain for up to 28 days 112 Tablet 0 ??? insulin aspart (NOVOLOG FLEXPEN U-100 INSULIN) 100 unit/mL (3 mL) Inject 2-6 Units into the skin 3 (three) times daily before meals (Do not use if blood glucose is less than 100 mg/dL) - max 18 units/day 15 mL 3 ??? acetaminophen (TYLENOL 8 HOUR) 650 mg CR tablet TAKE 1 TABLET BY MOUTH EVERY 8 HOURS NEEDED FOR PAIN INDICATIONS: PAIN ASSOCIATED WITH ARTHRITIS 90 Tablet 1 ??? baclofen 5 mg tab ??? GAVILYTE-G 236-22.74-6.74 -5.86 gram solution ??? glucose [address] 4 Tablets into mouth, chew and swallow as needed for low blood sugar (Less than 90 mg/dL) 30 Tablet 5 ??? insulin degludec (TRESIBA FLEXTOUCH U-200) 200 unit/mL (3 mL) Inject 16 Units into the skin nightly at bedtime Increased dosing 9 mL 5 ??? ferrous sulfate 325 mg (65 mg iron) tablet TAKE 1 TABLET BY MOUTH ONCE DAILY WITH BREAKFAST 90 Tablet 1 ??? famotidine (PEPCID) 40 mg tablet TOME GAGE TABLETA POR VIA ORAL AT NOC AL ACOSTARSE CUANDO SEANECESARIO PARA LA ACIDEZ 90 Tablet 1 ??? levocetirizine (XYZAL) 5 mg tablet Take 1 Tablet by mouth every evening [facility]/pharmacy #[address] [place] [address] 90 Each 0 Days Supply: 90Sig: TAKE 1 TABLET BY MOUTH DAILY BEFORE DINNER ASNEEDED FOR ALLERGIESSource: 2 Outside SourcesAuthorized by: DAISY GARCÍA 90 Tablet 1 ??? amLODIPine (NORVASC) 10 mg tablet Take 1 Tablet by mouth every morning For blood pressure. 90 Tablet 1 ??? apixaban (ELIQUIS) 5 mg tab Take 1 Tablet by mouth 2 (two) times Daily (Prescribed by human resources office manager - Dr. Michael Berkowitz) ??? atorvastatin (LIPITOR) 20 mg tablet Take 1 Tablet by mouth nightly at bedtime stop pravastatin 10 mg 90 Tablet 1 ??? ondansetron ODT (ZOFRAN-ODT) 4 mg disintegrating tablet Take 1 Tablet by mouth every 8 (eight) hours as needed for nausea 31 Tablet 1 ??? sennosides (SENOKOT) 8.6 mg tablet Take 2 Tablets by mouth nightly at bedtime as needed for constipation 30 Tablet 0 ? ? busPIRone (BUSPAR) 15 mg tablet TAKE 1/3- 1/2 HALF TABLET IN THE MORNING AND IN P.M. NEEDED & 1 TAB AT AL ACOSTARSE 180 Tablet 2 ??? isosorbide mononitrate ER (IMDUR) 30 mg 24 hr tablet TOME GAGE TABLETA POR VIA ORAL CADA MANANA 90 Tablet 2 ??? montelukast (SINGULAIR) 10 mg tablet Take 1 Tablet by mouth nightly at bedtime (Prescribed by human resources office manager Dr. Berkowitz) ??? triamcinolone (KENALOG) 0.025 % cream [facility]/pharmacy #[address] [place] [address] 60 g 0 Days Supply: 10Sig: APLIQUE AL JACOBO AFECTADA TOPICALLY DOS VECES AL D A POR 10 D ASSource: 2 OutsideSourcesAuthorized by: THO HERNANDEZ ??? nut.tx.gluc.intol,lac-free,soy (GLUCERNA ADVANCE) liqd Take 1 Can by mouth 2 (two) times a day 237 mL 0 ??? diaper,brief,adult,disposable Use one large brief up to 3 times daily. 120 Each 11 ??? naloxone (NARCAN) 4 mg/actuation nasal spray Place 1 [place] into the nostril(s) as needed for opioid reversal (Overdose) 2 Each 99 ??? acetaminophen (TYLENOL) 500 mg tablet Take 2 Tablets by mouth every 6 (six) hours as needed forpain 60 Tablet 2 ??? glucagon (BAQSIMI) 3 mg/actuation spry PLACE 3 MG INTO THE NOSTRIL(S) EVERY MORNING 2 Each 2 ??? LORazepam (ATIVAN) 0.5 mg tablet Take 1 Tablet by mouth 3 (three) times daily as needed for anxiety or sleep 90 Tablet 1 ??? alcohol swabs Use to test blood glucose three times daily. 100 Each 11 ??? blood sugar diagnostic strips Use to test blood glucose three times daily. (Freestyle Lite) 100Each 11 ??? lancets (FREESTYLE LANCETS) 28 gauge Use to test blood glucose three times daily. (Freestyle Lancets) 100 Each 11 ??? MISCELLANEOUS MEDICAL SUPPLY [facility] 78 year old female with hypertension - requiring daily bp monitoring - please dispense 1 universal blood pressure cuff kit x 99 years -BMI 28.34 1 Each 0 ? ? blood pressure kit med and lrg Goal < 140/90 1 Kit 0 ??? albuterol HFA 90 mcg/actuation inhaler INHALE 2 PUFFS INTO THE LUNGS EVERY 6 HOURS NEEDED FOR SHORTNESS OF BREATH OR WHEEZING 8.5 Each 3 ??? diaper,brief,adult,disposable Use one brief three time daily for continence care. 96 Each 0 ??? diclofenac sodium (VOLTAREN) 1 % gel APPLY 2 G TOPICALLY 2 (TWO) TIMES DAILY. 300 g 1 ??? TRELEGY ELLIPTA 100-62.5-25 mcg inhaler INHALE UN SOPLIDO INTO THE LUNGS TODOS LOS HDZ 60 Each2 ??? nitroglycerin (NITROSTAT) 0.3 mg SL tablet COLOQUE 1 TABLETA UNDER THE TONGUE EVERY 5 MINUTES, UP TO 3 DOSES CUANDO SEA NECESARIO PARA EL DOLOR DEL PECHO 300 Tablet 1 ??? artificial tears,hypromellose, (GENTEAL) 0.3 % ophthalmic solution Apply 1 Drop to eye 4 (four)times daily 15 mL 2 ??? albuterol HFA (VENTOLIN HFA) 90 mcg/actuation inhaler Inhale 2 Puffs into the lungs every 4 (four) hours as needed for shortness of breath or wheezing 18 g 5 ??? blood-glucose meter monitoring kit FREESTYLE LITE TEST STRIP, See Instructions, # 150 Unknown, 11 Refills, Maintenance, CHECK UP TO 5 TIMES DAILY. E11.65, 02/11/22 16:33:00 EDT, 160, cm, 02/01/22 16:14:00 EDT, Height, 78, kg, 01/14/2219:37:00 EDT, Dry Weight ??? loratadine (CLARITIN) 10 mg tablet daily No current facility-administered medications on file prior to visit. Review of Systems Constitutional: Negative for chills, diaphoresis, fatigue and fever. HENT: Negative for ear pain, hearing loss, sore throat, tinnitus and trouble swallowing. Eyes: Negative for photophobia, pain, redness and visual disturbance. Respiratory: Negative for apnea, cough, chest tightness and shortness of breath. Cardiovascular: Negative for chest pain, palpitations and leg swelling. Gastrointestinal: Negative for abdominal pain, constipation, diarrhea, nausea and vomiting. Endocrine: Negative for polydipsia, polyphagia and polyuria. Genitourinary: Negative for dysuria, flank pain, frequency, hematuria and urgency. Musculoskeletal: Positive for arthralgias, back pain, neck pain and neck stiffness. Negative for gait problem. Skin: Negative for rash and wound. Neurological: Negative for dizziness, syncope, weakness, numbness and headaches. Hematological: Does not bruise/bleed easily. Psychiatric/Behavioral: Negative for hallucinations, sleep disturbance and suicidal ideas. The patient is not nervous/anxious. OBJECTIVE Vitals DEFERRED due to visit being conducted over the TELEPHONE There is no height or weight on file to calculate BMI. Lifestyle measures:BMI follow up plan: The patient was counseled regarding nutrition and physical activity. Depression screen: PHQ-9 Total Score (Auto Calculated) (!) 10 at 10/25/2023 11:07 AM 05/06/2024 3:51 PM How many times in the past year have you had 4 or more drinks in a day? NONE How many times in the past year have you used a recreational drug or used a prescription medicationfor nonmedical reasons? NONE Depression screening:DEPRESSION FU PROVIDED ( CMS-2): Assessed, follow-up as needed Physical Exam Remaining physical exam deferred due to telehealth ASSESSMENT & PLAN Leonie Corea is a 78 year old female patient, who was seen today for a telehealth visit #1 Cervical pain (neck) (Primary) - REFERRAL TO PHYSICAL THERAPY - REFERRAL TO PAIN MANAGEMENT - venlafaxine (EFFEXOR) 37.5 mg tablet; Take 1 Tablet by mouth daily Dispense: 90 Tablet; Refill: 1 #2 Fibromyalgia - REFERRAL TO PHYSICAL THERAPY - REFERRAL TO PAIN MANAGEMENT - venlafaxine (EFFEXOR) 37.5 mg tablet; Take 1 Tablet by mouth daily Dispense: 90 Tablet; Refill: 1 Medications were reviewed in detail with the patient, who acknowledges understanding and agrees with the plan of care as discussed. Encouraged to follow up with any questions or concerns. No follow-ups on file. documented in this encounter Miscellaneous Notes * Patient Instructions - Mark Morales NP - 06/06/2024 5:04 PM EST If you are not able to keep your appointment please call 24-48 hours before your appointment to cancel or reschedule. documented in this encounter Plan of Treatment Upcoming Encounters Date Type Department Care Team (Late st Contact Info) Description 07/24/2024 3:40 PM EDT Office Visit [facility] [address] [place] [address] Darwin Encinas PharmD [address] [place] [address] Scheduled Referrals Name Type Priority Associated Diagnoses Orde r Schedule REFERRAL TO PHYSICAL THERAPY Referral Routine Cervical pain (neck) Fibromyalgia Ordered: 06/06/2024 REFERRAL TO PAIN MANAGEMENT Referral Routine Cervical pain (neck) Fibromyalgia Ordered: 06/06/2024 documented as of this encounter Visit Diagnoses Diagnosis Cervical pain (neck)- Primary Cervicalgia Fibromyalgia Mylagia and myositis, unspecified documented in this encounter Additional Health Concerns Assessment Noted Time PHQ-9 Depression Total Score: 10 024 11:07 AM PDT documented as of this encounter Care Teams Wire Bound Box Machine Operator Relationship Specialty Start Date End Date Massimo Mcclellan PA [address] [place] [address] PCP - General FAMILY MEDICINETARA 05/13/22 documented as of this encounter
--- OUTSIDE RECORDS SUMMARY | 2024-06-19 17:10 | XMS_ITS ---
Author Organization [facility] Address [address] [place] [address] Care Team Providers Care Room Server Name Role Phone RICKY GARZA, DAISY Primary Care Provider Unavailable Amor Dobbins Jr [phone] REASON FOR VISIT INTESTINAL ISSUES Encounters Encounter Location Date Provider Diagnosis [facility] [address] [facility] [address] [place] [address] 01/17/2024 Amor Dobbins Jr Plan Of Treatment No Information Progress Notes * TOMMY CHOU EDOB:1945 (78 yo F)Acc No.[id number]:01/17/2024 Progress Notes Patient:?EFFIE TOMMY Arlin Provider:?Amor Dobbins MD :1945???Age:78 Y???Sex:Female D ate:01/17/2024 Address:[address] [place], [place] [id number] Pcp:Jake GALEANO Subjective: * Chief Complaints: * ???1. INTESTINAL ISSUES. * Medical History:? Objective: * Vitals:? Assessment: Plan: * Treatment: * * The named appointment provid er may or may not be the originator of this progress note, and it is not deemed complete until electronically signed by the appointment provider. Sign off status: Pending * Provider:?Amor Dobbins MD Date:?1 Generated for Bradyi juvenal/Fapurvi/eTransmitting on:?06/19/2024 05:09 PM EDT
--- OUTSIDE RECORDS SUMMARY | 2024-06-19 17:10 | XMS_ITS ---
Author [facility] Address [address] [address] Care Team Providers Care Private Tutor Name Role Phone Massimo Figueroa Primary Care Provider Unavail able Miguel A Layne Unavailable [phone] Allergies Allergen (clinical drug ingredient) Drug/Non Drug [...] Status Celecoxib 200 MG (Prior Auth: Rx Ref#:[id number]) Oral for 30 Not-Taking DULoxetine HCl 60 MG (Prior Auth: Rx Ref#:[id number]) Oral for 30 Not-Taking Enalapril Maleate 10 MG (Prior Auth: Rx Ref#:[id number]) Oral for 90 Not-Taking Gabapentin 400 MG (Prior Auth: Rx Ref#:[id number]) Oral for 90 Not-Taking Ferrous Sulfate 325 [...] MG (Schedule II Drug) (Prior Auth: Rx Ref#:[id number]) Oral for 28 Active Pantoprazole Sodium 40 MG (Prior Auth: R x Ref#:[id number]) Oral for 30 Active Pravastatin Sodium 10 MG (Prior Auth: Rx Ref#:[id number]) Oral for 30 Active Aspirin Low Dose 81 MG (Prior Auth: Rx Ref#:[id number]) Oral for 90 Not-Taking Citracal + D Not-Morgan ing Montelukast Sodium 10 MG (Prior Auth: Rx Ref#:[id number]) Oral for 30 Active hydroCHLOROthiazide 12.5 MG (Prior Auth: Rx Ref#:[id number]) Oral for 30 Active Polyethylene Glycol 3350 - as directed Active Flunisolide 25 MCG/ACT (0.025%) (Prior Auth: Rx Ref#:[id number]) Nasal for 25 Active Loratadine 10 MG (Prior Auth: Rx Ref#:[id number]) Oral for 90 Active NovoLOG Active Acetaminophen Extra Strength 500 MG (Prior Auth: Rx Ref#:[id number]) Oral for 13 Active Albuterol Sulfate (2.5 MG/3ML) 0.083% (Prior Auth: Rx Ref#:[id number]) Inhalation for 10 Active Capsaicin 0.025 % [...] Ordered Date Performed Result Body Sit e 29586-FMIXJDC NAIL, 6 OR MORE 01/12/2023 N/A 01083-JHKA SKIN LESIONS, OVER 4 01/12/2023 N/A Encounters Encounter Location Date Provider Diagnosis [facility] [address] [place] [address] [address] [place] [address] 01/12/2023 Miguel Asadia UrrutiaRoverto Type 1 diabetes [...] INSTRUCTIONS.pdf) Pending Test Test Name Order Date 65576-CCLTNCQ NAIL, 6 OR MORE 01/12/2023 90262-JBBS SKIN LESIONS, OVER 4 01/13/20 23 Next [...] as necessary. Patient chooses, no pharmaceutical tx (71610) Keratoma Treatment Parring or Cutting o f Benign Hyperkeratotic Lesion(s) 13545 ( >4 Lesions) - The Benign hyperkeratotic lesions, as described above were pared, and/or cut utilizing a sterile #15 blade, tissue nippers, and/or dremel Progress Notes * CHOU, RosalbafartunDOB:1945 ([age] yo F)Acc No.[id number]:01/12/2023 Progress Note Patient:?Leonie Chou Provider:?Miguel A Layne DPM :1945???Age:77 Y???Sex:Female D ate:01/12/2023 Address:[address] [place], [place] [address] Pcp:TARA Weiss Subjective: * Chief Complaints: * [...] Hospitalization/Major Diagno stic Procedure:?[facility] her [facility] * Family History:?Mother: [...] Strength 500 MG Tablet (Prior Auth: Rx Ref#:[id number]) Oral Albuterol Sulfate (2.5 MG/3ML) 0.083% Nebulization Solution (Prior Auth: Rx Ref#:[id number]) Inhalation Capsaicin 0.025 % Cream 1 application to affected area as needed Externally Three times a dayFluticasone Furoate 200 MCG/ACT Aerosol Powder Breath Activated 1 puff Inhalation Once a dayhydroCHLOROthiazide 12.5 MG Capsule (Prior Auth: Rx Ref#:[id number]) Oral Polyethylene Glycol 3350 - Powder as directed Flunisolide 25 MCG/ACT (0.025%) Solution (Prior Auth: Rx Ref#:[id number]) Nasal Loratadine 10 MG Tablet (Prior Auth: Rx Ref#:[id number]) Oral Montelukast Sodium 10 MG Tablet (Prior Auth: Rx Ref#:[id number]) Oral oxyCODONE HCl 5 MG Tablet (Schedule II Drug) (Prior Auth: Rx Ref#:[id number]) Oral Pantoprazole Sodium 40 MG Tablet Delayed Release (Prior Auth: Rx Ref#:[id number]) Oral Pravastatin Sodium 10 MG Tablet (Prior Auth: Rx Ref#:[id number]) Oral Taking Tradjenta Taking Tresiba Taking NovoLOG Taking Acetaminophen Extra Strength 500 MG Tablet (Prior Auth: Rx Ref#:[id number]) Oral Taking Albuterol Sulfate (2.5 MG/3ML) 0.083% Nebulization Solution (Prior Auth: Rx Ref#:[id number]) Inhalation Taking Capsaicin 0.025 % Cream 1 application to affected area as needed Externally Three times a dayTaking Fluticasone Furoate 200 MCG/ACT Aerosol Powder Breath Activated 1 puff Inhalation Once a dayTaking hydroCHLOROthiazide 12.5 MG Capsule (Prior Auth: Rx Ref#:[id number]) Oral Taking Polyethylene Glycol 3350 - Powder as directed Taking Flunisolide 25 MCG/ACT (0.025%) Solution (Prior Auth: Rx Ref#:[id number]) Nasal Taking Loratadine 10 MG Tablet (Prior Auth: Rx Ref#:[id number]) Oral Taking Montelukast Sodium 10 MG Tablet (Prior Auth: Rx Ref#:[id number]) Oral Taking oxyCODONE HCl 5 MG Tablet (Schedule II Drug) (Prior Auth: Rx Ref#:[id number]) Oral Taking Pantoprazole Sodium 40 MG Tablet Delayed Release (Prior Auth: Rx Ref#:[id number]) Oral Taking Pravastatin Sodium 10 MG Tablet (Prior Auth: Rx Ref#:[id number]) Oral Not-Taking/PRNAspirin Low Dose 81 MG Tablet Delayed Release (Prior Auth: Rx Ref#:[id number]) Oral Citracal + D Fluconazole 200 MG [...] Celecoxib 200 MG Capsule (Prior Auth: Rx Ref#:[id number]) Oral DULoxetine HCl 60 MG Capsule Delayed Release Particles (Prior Auth: Rx Ref#:[id number]) Oral Enalapril Maleate 10 MG Tablet (Prior Auth: Rx Ref#:[id number]) Oral Gabapentin 400 MG Capsule (Prior Auth: Rx Ref#:[id number]) Oral Ferrous Sulfate 325 (65 Fe) MG Tablet 1 tablet Orally Once a dayMedication List reviewed and reconciled with the patientNot-Taking/PRN Aspirin Low Dose 81 MG Tablet Delayed Release (Prior Auth: Rx Ref#:[id number]) Oral Not-Taking/PRN Citracal + D Not-Taking/PRN Fluconazole [...] Celecoxib 200 MG Capsule (Prior Auth: Rx Ref#:[id number]) Oral Not-Taking/PRN DULoxetine HCl 60 MG Capsule Delayed Release Particles (Prior Auth: Rx Ref#:[id number]) Oral Not-Taking/PRN Enalapril Maleate 10 MG Tablet (Prior Auth: Rx Ref#:[id number]) Oral Not-Taking/PRN Gabapentin 400 MG Capsule (Prior Auth: Rx Ref#:[id number]) Oral Not-Taking/PRN Ferrous Sulfate 325 (65 Fe) [...] present, moderate, nonpainful, B/L.?Ophthalmology Referral: ?DIABETES EYE EXAM?Diabetic Retinopathy Screening:?Yes ?Findings of Diabetic Eye Exam:?no retinopathy?General Examination: ?GENERAL APPEARANCE:?Reveals a pleasant, alert, well nourished, well- developed, well hydrated individual, who demonstrates proper attention to hygiene/body habitus, and is in no acute distress , Pt accompanied by , Daughter, Rachele , who serves as , Fork Lift Truck Operator/Quality Control , additional Historian , and/who is physically present in exam room at time of visit.?ORIENTED:?person, place, and time.?FOOT EXAM:?Lower Extremity Neurological Exam performed:?Yes ?Footwear Evaluation?Footwear Evaluation performed:?Yes??? Assessment: * Assessment: 1.?Type 1 diabetes mellitus [...] as necessary. Patient chooses, no pharmaceutical tx (50471).?Keratoma Treatment:?Parring or Cutting of Benign Hyperkeratotic Lesion(s)?23747 ( >4 Lesions) - The Benign hyperkeratotic lesions, as described above were pared, and/or cut utilizing a sterile #15 blade, tissue nippers, and/or dremel.? * Procedure Codes:?17622 DEBRI DE NAIL, 6 OR MORE, Modifiers: XS 49237 TRIM SKIN LESIONS, OVER 4, Modifiers: XS [...] DPM Date:?2022 Generated for Luis E sanford/Benjie/Alok on:?06/19/2024 05:10 PM EDT History and Physical Notes * HPI (History [...] Daughter, Rachele , who serves as , Fork Lift Truck Operator/Quality Control , additional Historian , and/who is physically [...]
--- OUTSIDE RECORDS SUMMARY | 2024-06-19 17:10 | XMS_ITS | Data Portability ---
Author Organization [employer] Address [address] [place] [address] Care Team Providers Care Emergency Room Doctor Name Role Phone MARCIUNIQUEFELY Primary Care Provider HIM CCA OTHER Assessment Encounter Date Assessment Date Assessment LastModified by Organization Details LastModified Time 02/29/2024 02/29/2024 Evaluation in the field was performed by my stock controller colleague, as noted above, I provided real-time [...] Assessment and Plan as documented by the Rehab Technician. Patient given the opportunity to ask questions. Our service contacted for an assessment of: Urinary frequency As per above, patient with approximately several days of urinary frequency. Denies dysuria, abdominal pain, suprapubic pain, flank pain, fever, chills. Does have diabetes and sugars have been running high. Does not specifically endorse polydipsia. No history of frequent urinary tract infections Per stock controller on the scene, vital signs are stable [...] Appointments None recorded. Lab urinalysis, dipstick 2023 [facility], [address] [place] [address], [phone], 4 19:24:48 culture, urine 2023 [facility] (Centralized Electronic Ordering - All Locations), Patient Can Go To The Location Of Their Choice, [address] 5 20:05:30 urinalysis, dipstick 2023 024 [facility], [address] [place] [address], [phone], 4 18:47:22 culture, urine 2023 [facility] (Centralized Electronic Ordering - All Locations), Patient Can Go To The Location Of Their Choice, [address] 4 22:06:00 Referral None recorded. Procedures None recorded. Surgeries None recorded. Imaging None recorded. Medication Orders cefuroxime axetil 500 mg tablet 2023 [facility][id number], [address] [facility], [place], [address], 17:49:37 Patient TargetsNo targets recorded. Patient InstructionsNo instructions recorded. Reason for Referral None Reported. Results Created Date Observation Date Name Description Value Unit Range Abnormal Flag Note LastModifiedBy Organization Detail LastModifiedTime 02/29/2003/01/2024 URINE CULTU RE, ROUTI NE urine culture, routine Final report Not Available [facility] ([facility]) [address] [facility], [place], [address], 03/01/2024 22:06:00 02/29/2003/01/2024 URINE CULTU RE, ROUTI NE result 1 No growth Not Available [facility] ([facility]) [address] [facility], [place], [address], 03/01/2024 22:06:00 04/09/20 24 04/10/2024 URINE CULTU RE, ROUTI NE urine culture, routine Final report Not Available [facility] ([facility]) [address] [facility], [place], [address], 04/10/2024 20:05:30 04/09/20 24 04/10/2024 URINE CULTU RE, ROUTI NE result 1 No growth Not Available [facility] ([facility]) [address] [place], [address], 04/10/2024 20:05:30 Result Notes None recorded. Medical Equipment None Reported. Allergies Allergen ID Allergen Name Allergen Category Reaction Reaction Severity Criticality Documentation Date Start Date Code Code System Note Provider Name and Address Organization Details Recorded Time 11026 enalapril Not available Not available Not available Not available 02/29/2024 3827 RxNorm Not Available [facility] - production 11:30:38 9685 Product containin g penicilli n (product) medicatio n Not available Not available Not available 02/06/2024 99555 8001 SNOMED Not Available [facility] - production 10/29/202 4 04:14:41 9686 lidocaine medicatio n Not available Not available Not available 02/06/2024 6387 RxNorm Not Available [facility] 4 04:14:41 9687 morphine medicatio n Not available Not available Not available 02/06/2024 7052 RxNorm Not Available [facility] 4 04:14:41 Medications Name Sig Start Date [...] Not Available No t Available Dexcom G7 [employer] USE TO TEST BLOOD GLUCOSE CONTINUOUSL Y (DEXCOM G7 CHIEF BUSINESS OFFICER) active Not Available Not Available No t [...] /min 113 mm[Hg] 74 mm[Hg] Not Available [employer] [facility] 4 13:36:27 Date Recorded Oxygen saturation Oxygen saturation in Arterial blood by Pulse oximetry Body height Heart rate Respiratory rate Body temperature Body weight Systolic blood pressure Diastolic blood pressure Provider Name and Address Organization Details Last Updated DateTime 4 98 % 98 % 160.02 cm 67 /min 16 /min 98.3 [degF] 39171.6 16 g 117 mm[Hg] 61 mm[Hg] Not Available [employer] [facility] 4 17:46:27 Date Recorded Body temperature Body weight Body height Heart rate Oxygen saturation Oxygen saturation in Arterial blood by Pulse oximetry Respiratory rate Systolic blood pressure Diastolic blood pressure Provider Name and Address Organization Details Last Updated DateTime 4 98.7 [degF] 20992.9 84 g 160.02 cm 80 /min 99 % 99 % 18 /min 117 mm[Hg] 67 mm[Hg] Not Available [employer] [facility] 4 17:07:34 Social History None recorded. Functional Status None recorded. Mental Status None recorded. Family History Nothing Reported. Medical History No medical history recorded. Gynecological HistoryNo gynecological history recorded. Obstetrics History GPAL:G 0 P 0 0 0 0 Past Encounters Encounter ID Performer Location Encounter Start Date Encounter Closed Date Diagnosis/Indication Diagnosis SNOMED-CT Code Diagnosis ICD10 Code Diagnosis Note [id number] Wild Mendoza MD [facility] [address] [place] [phone] 06/12/2023 13:36:18 06/12/2023 18:56:08 Contusion of left lower leg [id number] 7721333 S80.12XA This 77-year-ol d female bruised her left anterior lower leg when getting out of the bathtub yesterday. She appears to has a bruise with no deformity. She is taking blood thinners. I recommende d ice packs and elevation. She will follow-up with her PCP for any persistent symptoms. The patient agreed with this plan. [id number] Amina Fatima MD [facility] [address] [place] [phone] 02/29/2024 17:46:24 03/01/2024 00:46:10 Dysuria 32718130 R30.0 [id number] Kimmy Chang MD [facility] [address] [place] [phone] 04/09/2024 16:51:24 04/09/2024 22:30:06 Urinary symptoms 943333957 R39.9 Increased frequency of urination 081232940 R35.0 Health Concerns Section Related Observation LastModified by Organization Detai ls LastModified Time None Recorded Concern Status LastModified by Organization Details LastModified Time None Recorded Advance Directives Directive None Recorded Payers Encounter Date Sequence Insurance Name Policy Number Policy Martinez Covered Member ID Martinez Member ID Guarantor Name 06/12/2023 1 [facility] - DOS ON OR AFTER 2022 - DUAL ELIGIBLE - PENITENTIARY OPTIONS AND ONE CARE (MEDICARE REPLACEMENT/ADV ANTAGE - HMO) Leonie Corea [id number] Leonie Corea 02/29/2024 1 [facility] - DOS ON OR AFTER 2022 - DUAL ELIGIBLE - PENITENTIARY OPTIONS AND ONE CARE (MEDICARE REPLACEMENT/ADV ANTAGE - HMO) Leonie Corea [id number] Leonie Corea 04/09/2024 1 [facility] - DOS ON OR AFTER 2022 - DUAL ELIGIBLE - PENITENTIARY OPTIONS AND ONE CARE (MEDICARE REPLACEMENT/ADV ANTAGE - HMO) Leonie Corea [id number] Leonie Corea Notes Date Note Type Note Provider Name and Address Organization Details Recorded Time 06/12/2023 text/html [facility] Nurse Triage Notes (Odessa Perez): Reason For Request: Fall Chief Complaints: Injury PMH: Heart Disease, Diabetes, Hypertension Allergies: Penicillin, Lidocaine, Morphine Comments: Called back member and managed care nurse for c/o falling yesterday when [...] but no call back yet. Verified name//address. Hortensia Mendoza MD [address] [facility],[address], [place], [address], [employer] 06/12/2023 13:41:12 02/29/2024 text/html CRC Nurse Triage Notes (Velia Shields): Reason For Request: UTI Patient Reports: Painful urination; Frequent and increased urination with flank pain; Painful urination with or without fever Denies: Inability to fully empty bladder Chief Complaints: Urinary symptoms, Diabetes-related PMH: Coronary Artery Disease, Hypertension, Diabetes Mellitus Type 2 Comments: Academic Vice President verified the name//address and phone number.Patient is [...] s/s and seek emergency treatment if needed Rehab Technician Organization Information for Denilson Diaz Business Legal Name: [employer] Address: [address] [place] [address], Medical Laboratory Specialist: Tobin Mclain MD CLIA No.: [id number] Rehab Technician POC Test Results from Denilson Diaz Urine Dipstick (17:44:16) Urine leukocytes: + ANT Urine nitrites: - NIT Urine urobilinogen: - URO Urine protein: +/- PRO Urine pH: 5.0 pH Urine blood: +++ BLO Urine specific gravity: 1.010 SG Urine ketones: - KET Urine bilirubin: +/- FRANTZ Urine glucose: - GLU .................. .................. .................. .................. .................. .................. .................. ............... Rehab Technician Note From Denilson Diaz: [facility] visit for female pt. Pt presents with her daughter at home. Daughter reports pt had onset of burning with urination yesterday in addition to urinary frequency. Daughter also questioning some possible confusion. V/S taken as listed. Pt afebrile. Pt was able to provide urine specimen with dipstick analysis showing leukocytes and blood. Urine culture specimem obtained. [place] [facility] [place] Fat[place] who started pt on antibiotics and requested urine culture [facility] to [facility]. Reviewed red flags for ED with pt and daughter. Pt education provided. [facility] [place] Orders: urinalysis, dipstick: Performed .................. .................. .................. .................. .................. .................. .................. ............... [facility] Consulted: Amina Fatima .................. .................. .................. .................. .................. .................. .................. ............... Disposition: Fulfilled Amina Faitma MD [address] [place] [address],[address], [place], [address], [employer] 02/29/2024 19:43:53 04/09/2024 text/html [facility] Nurse Triage Notes (Ben Garza - RN): Reason For Request: Possible uti, painful to [...] Mellitus Type 2, Chronic Kidney Disease Comments: Academic Vice President verified the patient's name//address and phone number. [...] emergency treatment if needed -Lupe Garza RN Rehab Technician Organization Information for Laura [facility] [employer] Legal Name: [employer]? Address: [address] [place] [address], Medical Laboratory Specialist: Tobin Mclain MD IA No.: [id number] Rehab Technician POC Test Results from [facility] Blood [...] under Documents section. Kimmy Chang MD [address] [facility],[address], [place], [address], [employer] 04/09/2024 22:48:45 OBGyn Episode No OBEpisode recorded.
--- OUTSIDE RECORDS SUMMARY | 2024-06-19 17:11 | XMS_ITS ---
Author Organization [facility] Address [address] [place] [phone] Care Team Providers Care Metal Weigher Name Role Phone RICKY GARZA, DAISY Primary Care Provider Unavailable Amor Dobbins Jr Unavailable REASON FOR VISIT no show Encounters Encounter Location Date Provider Diagnosis [facility] [address] [place] [phone] 09/18/2023 Amor Dobbins Jr Plan Of Treatment No Information Progress Notes * TOMMY CHOU EDOB:1945 (78 yo F)Acc No.[id number]:09/18/2023 Patient:?TOMMY CHOU :1945???Age:78 Y???Sex:Female Address:[address] [place] [address], [place] [address] * true * Date:? Generated for Printi ng/Benjie/eTransmitting on:?06/19/2024 05:10 PM EDT
--- OUTSIDE RECORDS SUMMARY | 2024-06-19 17:11 | XMS_ITS | Patient Health Record ---
Author Organization [facility] Address [address] [place] [address] Care Team Providers Care Farmworker Rice Name Role Phone Massimo Figueroa Primary Care Provider Unavail able Miguel A Layne Unavailable [phone] Allergies Allergen (clinical drug ingredient) Drug/Non Drug [...] Active Celecoxib 200 MG (Prior Auth: Rx Ref#:[id number]) Oral for 30 Not-Taking Tresiba Active DULoxetine HCl 60 MG (Prior Auth: Rx Ref#:[id number]) Oral for 30 Not-Taking NovoLOG Active Enalapril Maleate 10 MG (Prior Auth: Rx Ref#:[id number]) Oral for 90 Not-Taking Acetaminophen Extra Strength 500 MG (Prior Auth: Rx Ref#:[id number]) Oral for 13 Active Gabapentin 400 MG (Prior Auth: Rx Ref#:[id number]) Oral for 90 Not-Taking Albuterol Sulfate (2.5 MG/3ML) 0.083% (Prior Auth: Rx Ref#:[id number]) Inhalation for 10 Active Ferrous Sulfate 325 (65 Fe) MG 1 tablet Orally Once a day for 30 day(s) Not-Taking Capsaicin 0.025 % 1 application to affected area as needed Externally Three times a day Active Fluticasone Furoate 200 MCG/ACT 1 puff Inhalation Once a day Active hydroCHLOROthiazide 12.5 MG (Prior Auth: Rx Ref#:[id number]) Oral for 30 Active Polyethylene Glycol 3350 - as directed Active Flunisolide 25 MCG/ACT (0.025%) (Prior Auth: Rx Ref#:[id number]) Nasal for 25 Active Extra Depth Orthopedic Shoes (1 Pair) with Customized Heat Molded Multidensity Innersoles (3 Pair) as directed Dx: IDDM/Polyneuropathy (E10.42), Hammertoe Foot Deformity (M20.41,M20.42), Preulcerative Skin Lesion(s) (L85.1) 01/12/2023 Active Loratadine 10 MG (Prior Auth: Rx Ref#:[id number]) Oral for 90 Active Montelukast Sodium 10 MG (Prior Auth: Rx Ref#:[id number]) Oral for 30 Active oxyCODONE HCl 5 MG (Schedule II Drug) (Prior Auth: Rx Ref#:[id number]) Oral for 28 Active Pantoprazole Sodium 40 MG (Prior Auth: R x Ref#:[id number]) Oral for 30 Active Pravastatin Sodium 10 MG (Prior Auth: Rx Ref#:[id number]) Oral for 30 Active Aspirin Low Dose 81 MG (Prior Auth: Rx Ref#:[id number]) Oral for 90 Not-Taking Citracal + D [...] Problem Acquired hammer toe of right foot (8162321190594938 ) Other hammer toe(s) (acquired), right foot (M20.41) Active confirmed Problem Acquired hammer toe of left foot (3997753063384023 ) Other hammer toe(s) (acquired), left foot (M20.42) Active confirmed Problem Polyneuropathy due to diabetes mellitus type I (297541585) Type 1 diabetes mellitus with diabetic polyneuropathy (E10.42) Active confirmed Plan Of Treatment Pending Test Test Name Order Date X ray : Foot, left 3V 12/18/2018 X ray : Foot, right 3V 12/18/2018 04795-KQIUVRY NAIL, 6 OR MORE 11/10/2021 54622-XLTWWWE NAIL, 6 OR MORE 01/12/2023 36959-NXEM SKIN LESIONS, OVER 4 01/13/20 23 93077-TJLN SKIN LESIONS, OVER 4 11/11/19 22 30263-OFFC SKIN LESIONS, OVER 4 09/19/19 19 06114-KOJD SKIN LESIONS, OVER 4 12/19/19 19 52178-UCCI SKIN LESIONS, OVER 4 03/26/20 19 78634-HJWY SKIN LESIONS, OVER 4 09/09/19 21 59550-SZOD SKIN LESIONS, OVER 4 06/12/19 22 Insurance Providers Payer Name Payer Address Payer Phone Subscriber Number Group Number Insured Name Patient Relationship to Insured Coverage Start Date Coverage End Date [facility] [employer] Claims [address] [place] [phone] [facility] [id number] Leonie Corea Self - patient is the [...] History Reason Date(Month/Year) [facility]- [facility] for kidney [facility] 05/01
--- OUTSIDE RECORDS SUMMARY | 2024-06-19 17:11 | XMS_ITS | Clinical Summary ---
Author Organization [facility] Address [address] [place] [address] Phone Care Team Providers Care Professor Of Graphic Design Name Role Phone Massimo Mcclellan Primary Care Provider [phone] Allergies Active Allergy Reactions Criticality Noted Date Comments Lidocaine Hives 07/19/2017 Other Reaction(s): Rash/Dermatitis Morphine Itching 11/07/2017 Penicillins Hives 07/19/2017 Other Reaction(s): Rash/Dermatitis Medications capsaicin (ZOSTRIX) 0.025 % cream Apply topically. Active acetaminophen (TYLENOL) 500 mg tablet Take 500 mg by mouth every 6 hours as needed. Active flunisolide (NASALIDE) 25 mcg (0.025 %) spray,non-aeroso l by Nasal route. Active fluticasone furoate (Arnuity [...] Take 1 g by mouth daily. Active Active Problems Problem Noted Date Diagnosed Date Cataract 11/07/2017 CKD (chronic kidney disease) stage 3, GFR 30-59 ml/min 11/07/2017 Esophageal varices 11/07/2017 Overview (01/30/2024): 06/2106 EGD, Grade 1 Meniere disease 11/07/2017 Overview (01/30/2024): 2015 Dr Baker Osteopenia 11/07/2017 Pulmonary hypertension 11/07/2017 Overview (01/30/2024): 2015 DAVID RVSP- 46 Tubular adenoma of colon [...] PM EST Office Visit Orthopedic Surgery - [address] [address] Florian Mott DPM Controlled type 2 diabetes with neuropathy (CMS/HCC) (Primary Dx); Pain in toes of both feet; Arthritis of both feet; Difficulty walking; Dermatophytosis, nail from Last 3 Months Immunizations Name Administration [...] Years Used Date Smoking Tobacco: Never Assessed Comments Unknown Sex and Gender Information Value Date Recorded Sex Assigned at Not on file Legal Sex Female 1:47 AM EST Gender Identity Not on file Sexual Orientation Not on file Last Filed Vital Signs [...] Care Team (Late st Contact Info) Description 06/21/2024 1:30 PM EDT Office Visit Orthopedic Surgery - [employer] [address] [phone] Florian Mott, MAHSA [address] [address] Health Maintenance Due Date Last Done Comments [...] Panel) 05/08/2028 05/08/2023, 05/08/2023, 12/23/2015 Pneumococcal Vaccine: 50+ Years Completed 05/12/2014, 11/10/2010, 05/20/2004 Zoster Vaccines Completed 12/08/2021, 06/0 11/2021, 10/16/2012 COVID-19 Vaccine Completed 12/27/2023, 10/2022, 05/25/2022, [...] patient's age to complete this topic Meningococcal B Vacine Aged Out No lo nger eligible based on patient's age to complete this topic RSV Immunization Patients Under 20 months Aged Out No longer eligible based on patient's age to complete this topic Varicella Vaccines Aged Out No longer eligible based on patient's age to complete this topic Procedures Procedure Name Priority Date/Time Associated Diagnosis Comments HM ANNUAL BMP BLOOD TEST Routine 07/19/2017 from Last 3 Months or Most Recently Relevant to Health Maintenance Results * Annual BMP Blood Test (07/19/2017) Annual BMP Blood Test Abstracted Historical Provider MD HEALTH MAINTENANCE Final Result from Last 3 Months or Most Recently Relevant to Health Maintenance Insurance [facility] MEDIC[facility] Member Subscriber Plan / Payer (Ef fective 2012-Present) Name:Leonie Corea Relation to Subscriber:Self Name:Leonie Corea Payer ID:[id number] Group ID:[id number] Type:Not on file Address: [place] [address] [place] [phone] Advance Directives Documents on File Type Date Recorded Patient Re Recording Mixer Expl anation Health Care Decision (hx) 03/30/2021 [...] (hx) 12/25/2015 AD NIEVES DIRECTIVE Care Teams Professor Of Graphic Design Relationship Specialty Start Date End Date Massimo Mcclellan PA [address] [place] [address] PCP - General 11/24/23
--- OUTSIDE RECORDS SUMMARY | 2024-06-19 17:11 | XMS_ITS | Patient Health Record ---
Author Organization [facility] Address [address] [place] [address] Care Team Providers Care Tree Chipper Name Role Phone RICKY GARZA, DAISY Primary Care Provider Unavailable Amor Dobbins Jr Unavailable [phone] Allergies Allergen (clinical drug ingredient) Drug/Non Drug Allergy documented on EMR Reaction Allergy Type Onset Date Status Penicillin Unknown Drug Allergy Active morphine Morphine Sulfate Unknown Drug Allergy Active lidocaine Lidoderm patches Drug Allergy Active Codeine Phosphate Unknown Drug Allergy Active Reason For Referral No Information Medications Medication SIG (Take, Route, Frequency, Duration) Notes Start Date End Date Status Famotidine 40 MG 1 tablet at bedtime Orally Once a day for 30 day(s) Active Nsmxvdqlthy-Nlntqtarz-Ivuxig 100-62.5-25 MCG/INH 1 puff Inhalation Once a [...] 5 MG Oral for 30 Unkno wn Immunizations Vaccine Route Administration Date Status Comme nts Influenza Unknown 01/08/2019 Administered Influenza Unknown 01/09/2020 Administered Influenza Unknown 02/23/2021 Administered Problems Problem Type SNOMED Code ICD Code Onset Dates Problem Status W/U Status Risk Notes Problem 23832355 Epigastric pain (R10.13) Active confirmed Problem 349999939 Gastroesophageal reflux disease without esophagitis (K21.9) Active confirmed Problem 76296522 Iron deficiency anemia, unspecified iron deficiency anemia type (D50.9) Active confirmed Problem 552820356 Anemia, unspecif ied type (D64.9) Active confirmed Problem 46461368 Dysphagia, unspecified type (R13.10) Active confirmed Problem 30989955 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, 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) Active confirmed Encounters Encounter Location Date Provider Diagnosis [facility] [address] [place] [phone] 07/06/2023 Amor Dobbins Jr [facility] [address] [place] [phone] 09/18/2023 Amor Dobbins Jr [facility] [address] [place] [phone] 01/15/2024 Amor Dobbins Jr Plan Of Treatment Pending Test Test Name Order Date BUN 11/09/2020 CREATININE 11/09/2020 LIVER PROFILE 12/27/2021 LIVER PROFILE 06/06/2014 LIVER PROFILE 11/09/2020 CBC w/o DIFF 12/27/2021 CBC w/o DIFF 06/06/2014 CBC w/o DIFF 11/09/2020 PROTHROMBIN TIME (PT, INR) 12/27/2021 PROTHROMBIN TIME [...] Insured Coverage Start Date Coverage End Date [facility] [address] [place] [address] [id number] TOMMY CHOU Self - patient is the insured Medical (General) History Medical History History ICD Code colonoscopy 12/11/19, right co camilla AVMs, no polyps, previous history of adenomas, followup optional based on age. hepatitis C, rx IFN X2, Harvoni X 24 wee lisa 2014, sustained response. seizure disorder diabetes arthritis pulmonary embolism anemia Gastroesophageal reflux disease, EGD 12/10 0, grade 1 varices. Cirrhosis hypertension Surgical History Surgery Date(Month/Year) hysterectomy cholecystectomy Thyroid surgery cataract-lens implants kidney stones removed
== END 2024-06-19 15:29 | disposition home or self-care (01) ==
LOC: HO.HNS 14:32
PROVIDERS: PCP Physician Assistant; Visit Provider Physician Assistant
DX: Z98.1 Arthrodesis status (principal)
CPT/HCPCS: 99213

== ENCOUNTER → 2024-06-19 14:31 | Outpatient (BNVA) | payer OTHER, SELFPAY | PROVIDERS: PCP Physician Assistant; Visit Provider Physician Assistant | DX: Z98.1 Arthrodesis status (principal) | CPT/HCPCS: 99212 ==

== ENCOUNTER 2024-07-19 10:10 | Outpatient (RCR) | payer OTHER, SELFPAY ==
--- NOTE | 2024-07-10 14:31 | MHC.PT.EP ---
[facility] [place] Office [place] Office [place] Office [address] Deisy Ball [address] [phone] F: [phone] F: [phone] F: [phone] F: [phone] Physical Therapy Plan of Care Date of Evaluation: 07/10/24 Date of Surgery: 03/05/25 Diagnosis: S/p ACDF C3-C4 Z98.1 Arthodesis status PT eval and treat, signed by MAULIK Pike 06/20/24 s/p cervical spinal fusion- Shoulder and arm pain s/p C3-C4 ACDF 03/05/24 Assessment: Pt is a Rwandan speaking RHD female, referred to PT from TIMMY Pike on 06/20/24 following history of s/p ACDF C3-C4 03/05/[address] Fernando. Pt's daughter and LINE CREWMAN Fior who acted as an oven equipment repairer presents with patient to the office this date describing history of timelines stating patient is worse than before surgery. Pt with severely limited AROM of C/S, poor tolerance for ROM of the shoulders, poor tolerance for gentle palpation of neck/upper back/shoulders, and reports severe 8-10/10 VAS scale R>L shoulder>arm pain. Pt with PMH significant for DMII, history of seizure disorder (last one noted at 52 per pt), history of PE x 2 on meterman anti-coagulants on Eliquis, Meniere's disease, COPD, history of sleep apnea (on 1L02 at night daughter says sometimes not compliant), dementia and osteopenia (see other list in chart) Pt exhibit poor tolerance for assessment/screening during PT this date and at this time prognosis is FAIR<>POOR based on patient interaction at eval, tolerance/guarding at eval. Pt was educated re: some recommendations to initiate to improve her safety/mobility/pain prior to next session includin) Using a RW vs std cane to improve stability/safety, 2) educated re: gentle scapular shoulder rolls/retraction to gentle tolerance, 3) avoidance of static positioning education and support for pillow/body movements for sleep/during the day, 4) encouragement for use of moist heat to ease muscle tension, 5) Encouragement for more movement and change in position every hour with family/support to relax musculature, and 5) goals of PT/findings/plan/goals We discussed her pain medication cycle- daughter states is going through changes with this and will be scheduled to see pain management in the next few weeks at [facility]. Pt will be seen 1x/week at this time to assess outcome/plan/goals as listed below. OF note- Pt's daughter reports patient with poor control of pain in recent weeks, up/down with blood sugar , and poses as a fall risk. Therapist had to CGA to prevent fall when walking patient out of lobby R lateral LOB- required CGA of daughter with std cane in the other hand. Educated re: use of rollator to improve safety and reduce risk of fall. Frequency and Duration: The patient will be seen 1x/week x 4 weeks Short Term Goals: 1. Pt will demonstrate R cervical rotation to 45 degrees. 2. Reduce neck pain by 25%. 3. Initiate self care/management skills. 4. Initiate use of rollator vs std cane due to reduce risk of falls. Supervisor Incising Goals: 1. I HEP. 2. I caregiver/selfcare management. 3. Pt will express centralization of R UE sx to height of the R shoulder. 4. Resume community trips with caregiver/family MOD I. Treatment Plan: Modalities to reduce pain, spasms and effusion. Manual therapy to restore motion and function. Therapeutic exercise to improve strength and flexibility. Neuromuscular re-education for posture and balance. Therapeutic activities to return to functional activities of daily living. Electronically signed by: Mayi Bowen, PT, DPT Please sign and return to therapist. Thank you for your referral.
--- NOTE | 2024-07-19 10:14 | MHC.PT.EP ---
[facility] [place] Office [place] Office [place] Office [address] Deisy Ball [address] [phone] F: [phone] F: [phone] F: [phone] F: [phone] Physical Therapy Plan of Care Date of Evaluation: 07/10/24 Date of Surgery: 03/05/25 Diagnosis: S/p ACDF C3-C4 Z98.1 Arthodesis status PT eval and treat, signed by MAULIK Pike 06/20/24 s/p cervical spinal fusion- Shoulder and arm pain s/p C3-C4 ACDF 03/05/24 Assessment: Pt is a Estonian speaking RHD female, referred to PT from TIMMY Pike on 06/20/24 following history of s/p ACDF C3-C4 03/05/[address] Fernando. Pt's daughter and PATIENT CARE DIRECTOR Fior who acted as an staff interpreter presents with patient to the office this date describing history of timelines stating patient is worse than before surgery. Pt with severely limited AROM of C/S, poor tolerance for ROM of the shoulders, poor tolerance for gentle palpation of neck/upper back/shoulders, and reports severe 8-10/10 VAS scale R>L shoulder>arm pain. Pt with PMH significant for DMII, history of seizure disorder (last one noted at 52 per pt), history of PE x 2 on polisher and sander anti-coagulants on Eliquis, Meniere's disease, COPD, history of sleep apnea (on 1L02 at night daughter says sometimes not compliant), dementia and osteopenia (see other list in chart) Pt exhibit poor tolerance for assessment/screening during PT this date and at this time prognosis is FAIR<>POOR based on patient interaction at eval, tolerance/guarding at eval. Pt was educated re: some recommendations to initiate to improve her safety/mobility/pain prior to next session includin) Using a RW vs std cane to improve stability/safety, 2) educated re: gentle scapular shoulder rolls/retraction to gentle tolerance, 3) avoidance of static positioning education and support for pillow/body movements for sleep/during the day, 4) encouragement for use of moist heat to ease muscle tension, 5) Encouragement for more movement and change in position every hour with family/support to relax musculature, and 5) goals of PT/findings/plan/goals We discussed her pain medication cycle- daughter states is going through changes with this and will be scheduled to see pain management in the next few weeks at [facility]. Pt will be seen 1x/week at this time to assess outcome/plan/goals as listed below. OF note- Pt's daughter reports patient with poor control of pain in recent weeks, up/down with blood sugar , and poses as a fall risk. Therapist had to CGA to prevent fall when walking patient out of lobby R lateral LOB- required CGA of daughter with std cane in the other hand. Educated re: use of rollator to improve safety and reduce risk of fall. Frequency and Duration: The patient will be seen 1x/week x 4 weeks Short Term Goals: 1. Pt will demonstrate R cervical rotation to 45 degrees. 2. Reduce neck pain by 25%. 3. Initiate self care/management skills. 4. Initiate use of rollator vs std cane due to reduce risk of falls. Director Of Strategic Initiatives Goals: 1. I HEP. 2. I caregiver/selfcare management. 3. Pt will express centralization of R UE sx to height of the R shoulder. 4. Resume community trips with caregiver/family MOD I. Treatment Plan: Modalities to reduce pain, spasms and effusion. Manual therapy to restore motion and function. Therapeutic exercise to improve strength and flexibility. Neuromuscular re-education for posture and balance. Therapeutic activities to return to functional activities of daily living. Electronically signed by: Mayi Bowen, PT, DPT Please sign and return to therapist. Thank you for your referral.
== END 2024-10-29 07:12 | disposition home or self-care (01) ==
LOC: HO.PTS 10:10
PROVIDERS: PCP Physician Assistant; Visit Provider Physician Assistant
DX: Z98.1 Arthrodesis status (principal)
CPT/HCPCS: 97110; 97140; 97163; 97535

== ENCOUNTER 2024-07-24 10:37 | Outpatient (AMB) | payer OTHER, SELFPAY ==
--- NOTE | 2024-07-24 10:38 | MHC.OFFVIS ---
Vital Signs 07/24/24 10:40 Height 5 ft 3 in Weight 147 lb BMI 26.0 BP 128/58 L Blood Pressure Location Lt brachial Position Sitting Respiration 16 Pulse 73 Pulse Source Pulse Oximeter Pulse Oximetry (%) 97 Oxygen Delivery Method Room Air Intake Visit Reasons: FU requested/ medication discussion Screen Stretcher Required: Yes Screen Stretcher Services: Screen Stretcher Offered & Declined Screen Stretcher Name: prefers daughter to translate Allergies bee pollen [bee stings] Allergy (Severe, Verified 07/24/24 10:41) Anaphylaxis lidocaine [From LIDODERM] Allergy (Severe, Verified 07/24/24 10:41) BLISTERS from adhesive morphine [MORPHINE] Allergy (Severe, Verified 07/24/24 10:41) PO will cause itching, can tolerate IV Penicillins [PENICILLINS] Allergy (Severe, Verified 07/24/24 10:41) SWELLING/ITCHING gabapentin [GABAPENTIN] Allergy (Intermediate, Verified 07/24/24 10:41) SORES IN MOUTH- AGITATION enalapril Adverse Reaction (Severe, Verified 07/24/24 10:41) hyperkalemia Ampicillin Allergy (Intermediate, Uncoded 07/24/24 10:41) Rash and Hives Medication List - Last Reconciled 07/24/24 by Nancy Chavez LPN acetaminophen ER 650 mg PO TID PRN albuterol sulfate 90 mcg/actuation 2 inhalations inhalation Q6H PRN 30 days amlodipine 10 mg PO DAILY apixaban 5 mg PO BID 30 days atorvastatin 20 mg PO BEDTIME PRN baclofen 5 mg PO TID buspirone 15 mg PO BID escitalopram oxalate 20 mg PO DAILY esomeprazole magnesium 40 mg PO DAILY famotidine 40 mg PO BEDTIME ferrous sulfate 325 mg PO DAILY glucose 4 grams PO TID PRN insulin aspart U-100 2 - 6 units subcut TID insulin degludec 12 units subcut BEDTIME isosorbide mononitrate ER 30 mg PO DAILY levocetirizine 5 mg PO BEDTIME PRN lorazepam 0.5 mg PO DAILY PRN ondansetron 4 mg PO DAILY PRN oxycodone 5 mg PO Q6H PRN sennosides 8.6 mg PO BEDTIME PRN Trelegy Ellipta 100-62.5-25 mcg (qfsmpvkgufi-xpsjhcwtu-qjqyplog) 1 inh inhalation DAILY NS venlafaxine mg PO HPI HPI FU requested/ medication discussion: Details: History of Present Illness The patient is an 79-year-old female presenting with chronic pain management issues. She has experienced chronic pain related to her neck, back, and sciatica, complicated following her recent neck surgery. Postoperatively, the pain intensified, spanning from her neck down to her right shoulder and back. Notably, the pain peaks during nighttime. An underlying cervical spine compression, now suspected to be worsening at C4-5, has driven the existing conditions. The management of her conditions has been consistent with an ongoing regimen of oxycodone, due to its efficacy and tolerability. Any relief from alternative treatments like epidural injections or physical therapy has been negligible. Concerns remain about spinal compression exacerbated by a surgical cage placed during the prior surgery, as well as how this may contribute to her unrelieved symptoms. Pain Description - Onset: Chronic, post-surgery worsening - Quality: Unbearable and persistent, peaking at night - Primary Location: Neck and back, specifically neck pain extending to right shoulder - Radiation: Pain extends from the neck to the right shoulder - Exacerbating Factors: Nighttime - Relieving Factors: Oxycodone offers some relief - Functional Interference: Pain disrupts physical activities and nighttime rest Physical Exam - Appears afebrile. - Alert and oriented. - Mood and affect appropriate. - Follows and participates in conversation appropriately. - Respiratory effort is unlabored. - Able to transition from sit to stand unassisted. - Ambulates with bilaterally normal heel strike and toe off. - Able to stand and walk on toes and heels. Results - Tests: MRI is proposed to assess C4-5 spinal compression and guide further treatment. Pain Management - Affect: Persistent pain is significantly affecting the patient's quality of life. - Analgesia: Chronic use of oxycodone for pain control; no noted adverse reactions. - Adverse Effects: None reported directly from oxycodone. - Activities of Daily Living: Limited functional capacity due to pain; nightly rest is particularly impacted. - Aberrant Drug Related Behaviors: Oxycodone dependence acknowledged, under prescription management. [facility] Medical History Seizure disorder Seizure disorder Sciatica Right ventricular dilation Pulmonary HTN Insomnia Positive PPD, treated Myofascial muscle pain Meniere disease Memory impairment retirement current use of anticoagulant therapy Left ventricular hypertrophy HTN (hypertension) Hyperlipidemia Hx pulmonary embolism Epigastric pain Early onset Alzheimer dementia Incontinence of urine Dysphasia Diastolic dysfunction Type 2 diabetes mellitus with diabetic peripheral angiopathy without gangrene, with long-term current use of insulin Hx of deep venous thrombosis CKD (chronic kidney disease) stage 3, GFR 30-59 ml/min Cervical facet syndrome Cataract Kidney stone Calcium oxalate crystals present in urine Asthma-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 Depression Anemia Allergic rhinitis Hyperparathyroidism Osteoarthritis Fibromyalgia Hx of renal calculi Hx of seizure disorder Diabetes Cirrhosis GERD (gastroesophageal reflux disease) Nausea Dementia Anxiety RLS (restless legs syndrome) Peripheral venous insufficiency Osteopenia Esophageal varices Gastritis Mitral regurgitation Tricuspid regurgitation Hx of hepatitis C (~2008) Chronic anticoagulation Back pain AVM (arteriovenous malformation) of colon History of anemia Leg pain Chest pain Pleuritis JENNIFER (obstructive sleep apnea) Abnormal chest x-ray Pneumonia COVID-19 (~12/2019) Pulmonary emboli COPD (chronic obstructive pulmonary disease) Surgical History Hx of lithotripsy Hx of colonoscopy (12/11/19) History of esophagogastroduodenoscopy (EGD) (12/11/19) Hx of hysterectomy (~1974) Hx of parathyroidectomy (~2008) Hx of cholecystectomy (~1975) Hx of cataract extraction Social History Are you a primary director career services to a significant other at home: No Do you presently have visiting nurse or other home services: Yes (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) Patient Tobacco Use Status: Never used Tobacco Physical Exam Vital Signs: Last Vital Signs Pulse 73 07/24/24 10:40 Resp 16 07/24/24 10:40 BP 128/58 L 07/24/24 10:40 Pulse Ox 97 07/24/24 10:40 Oxygen Delivery Method Room Air 07/24/24 10:40 BMI result Body Mass Index 26.0 Assessment & Plan Assessment & Plan (1) Cervical myelopathy: Code(s): G95.9 - Disease of spinal cord, unspecified Category: Medical (2) Neck pain: Code(s): M54.2 - Cervicalgia Category: Medical (3) Cervical radiculopathy: Code(s): M54.12 - Radiculopathy, cervical region Category: Medical Plan Plan MRI follow-up focused on C4-5 evaluation; a reduction in oxycodone dosage is advised under primary care supervision to manage the indicators of dependency. Pending results, surgical decompression at C4/5 may be revisited as a viable plan of action alongside optimistic therapeutic exploration. Patient was informed and verbally consented to the use of an ambient scribe for clinic note documentation during this visit. Discussion Notes I discussed the need for a follow-up MRI to assess potential C4-5 spinal compression contributing to worsening pain. We reviewed management strategies highlighting the necessity to balance medication dependency risks with effective pain control. The patient and I acknowledged the inadequacy of current therapies, prompting this imaging to resolve potential underlying anatomical contributions. Future reductions in medication and exploring alternatives were considered while discussing current prescription management through her primary care provider. Patient Instructions - Schedule an MRI as ordered to evaluate C4-5 spinal compression and then follow up with neurosurgery. - Monitor and report any changes in pain or new symptoms. - Discuss with primary care provider regarding oxycodone dosage adjustments. - Continue current therapies unless otherwise advised after MRI results. - Follow up after MRI completion for further management and planning. Orders: Orders MR cervical spine wo con Today G95.9 - Disease of spinal cord, unspecified, M54.12 - Radiculopathy, cervical region, M54.2 - Cervicalgia Coding Level of Care Code Est Pt Level 3 (83127) Diagnoses Cervical myelopathy G95.9 Neck pain M54.2 Cervical radiculopathy M54.12
[2024-07-24 10:40] VITALS: BP 128/58; PULSE 73; RESP 16; O2SAT 97; BMI 26.0
--- OUTSIDE RECORDS SUMMARY | 2024-07-24 12:32 | XMS_ITS ---
Author Organization [facility] Address [address] [place] [id number] Care Team Providers Care Installation & Maintenance Executive Name Role Phone RICKY GARZA, DAISY Primary Care Provider Unavailable Amor Dobbins Jr REASON FOR VISIT INTESTINAL ISSUES Encounters Encounter Location Date Provider Diagnosis [facility] [address] [facility] [address] [place] [phone] 01/17/2024 Amor Dobbins Jr Plan Of Treatment No Information Progress Notes * TOMMY CHOU EDOB:1945 (79 yo F)Acc No.[id number]:01/17/2024 Progress Notes Patient:?EFFIE TOMMY Arlin Provider:?Amor Dobbins MD :1945???Age:78 Y???Sex:Female D ate:01/17/2024 Address:[address] [place], [place] [id number] Pcp:Jake GALEANO Subjective: * Chief Complaints: * ???1. INTESTINAL ISSUES. * Medical History:? Objective: * Vitals:? Assessment: Plan: * Treatment: * * The named appointment provid er may or may not be the originator of this progress note, and it is not deemed complete until electronically signed by the appointment provider. Sign off status: Pending * Provider:?Amor Dobbins MD Date:?1 Generated for Bradyi juvenal/Benjie/eTransmitting on:?07/24/2024 12:32 PM EDT
--- OUTSIDE RECORDS SUMMARY | 2024-07-24 12:33 | XMS_ITS | Clinical Summary ---
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),Type 2 diabetes mellitus with diabetic peripheral angiopathy without gangrene, with long-term current use of insulin ([facility]) Use to test blood glucose three times daily. (Freestyle Lite) 100 Each 2023 Active lancets (FREESTYLE LANCETS) 28 gaugeIndications :Type 2 diabetes mellitus with diabetic nephropathy, with long-term current use of insulin ([facility]),Type 2 diabetes mellitus with diabetic peripheral angiopathy without gangrene, with long-term current use of insulin ([facility]) Use to test blood glucose three times daily. (Freestyle Lancets) 100 Each 11 2023 Active alcohol swabsIndications :Type 2 diabetes mellitus with diabetic nephropathy, with long-term current use of insulin ([facility]),Type 2 diabetes mellitus with diabetic peripheral angiopathy without gangrene, with long-term current use of insulin ([facility]) Use to test blood glucose three times daily. 100 Each 2023 Active LORazepam (ATIVAN) 0.5 mg tablet Take 1 Tablet by mouth 3 (three) times daily as needed for anxiety or sleep 90 Tablet 1 2023 Active acetaminophen (TYLENOL) 500 mg tabletIndication s:Other diabetic neurological complication associated with type 2 diabetes mellitus ([facility]),Fibrom yalgia,Osteoarth ritis, unspecified osteoarthritis type, unspecified site Take 2 Tablets by mouth every 6 (six) hours as needed for pain 60 Tablet 2 2023 Active glucagon (BAQSIMI) 3 mg/actuation spry PLACE 3 MG INTO THE NOSTRIL(S) EVERY MORNING 2 Each 2 2023 Active naloxone (NARCAN) 4 mg/actuation nasal spray Place 1 Nebo into the nostril(s) as needed for opioid [...] 2023 Active triamcinolone (KENALOG) 0.025 % cream [facility]/pharmacy #[address] [place] [address] 60 g 0 Days Supply: 10Sig: APLIQUE AL JACOBO AFECTADA TOPICALLY DOS VECES AL D A POR 10 D ASSource: 2 Outside SourcesAuthorized by: THO HERNANDEZ 2023 Active montelukast (SINGULAIR) 10 mg tablet Take 1 Tablet by mouth nightly at bedtime (Prescribed by blood typer Dr. Berkowitz) 2023 Active busPIRone (BUSPAR) 15 mg tablet [...] mouth 2 (two) times Daily (Prescribed by blood typer - Dr. Michael Berkowitz) 2023 Active levocetirizine (XYZAL) 5 mg tablet Take 1 Tablet by mouth every evening [facility]/pharmacy #[address] [place] [address] 90 Each 0 Days Supply: 90Sig: TAKE [...] WITH BREAKFAST 90 Tablet 1 2024 Active GAVILYTE-G 236-22.74-6.74 -5.86 gram solution 2024 Active insulin degludec (TRESIBA FLEXTOUCH U-200) 200 unit/mL (3 mL)Indications:T ype 2 diabetes mellitus with diabetic peripheral angiopathy without gangrene, with long-term current use of insulin ([facility]) Inject 16 Units into the skin nightly at bedtime Increased dosing 9 mL 5 2024 Active glucose 4 gram chewable tabletIndication s:Type 2 diabetes mellitus with diabetic peripheral angiopathy without gangrene, with long-term current use of insulin ([facility]) Place 4 Tablets into mouth, chew and swallow as needed for low blood sugar (Less than 90 mg/dL) 30 Tablet 5 2024 Active insulin aspart (NOVOLOG FLEXPEN U-100 INSULIN) 100 unit/mL (3 mL)Indications:T ype 2 diabetes mellitus with diabetic peripheral angiopathy without gangrene, with long-term current use of insulin ([facility]) Inject 2-6 Units into the skin 3 (three) times daily before meals (Do not use if blood glucose is less than 100 mg/dL) - max 18 units/day 15 mL 3 2024 Active esomeprazole (NEXIUM) [address] capsule TOME GAGE CAPSULA TODOS LOS HDZ EN LA MANANA ANTES DEL DESAYUNO 90 Capsule 2024 Active escitalopram (LEXAPRO) 20 mg tablet TOME 1 TABLETA POR VIA ORAL TODOS LOS HDZ 90 Tablet 1 2024 Active venlafaxine (EFFEXOR) 37.5 mg tabletIndication s:Cervical pain (neck),Fibromyal wong Take 1 Tablet by mouth daily 90 Tablet 1 2024 Active acetaminophen (TYLENOL 8 HOUR) 650 mg CR tabletIndication s:Routine adult health maintenance TAKE 1 TAB BY MOUTH EVERY 8HRS NEEDED FOR PAIN 90 Tablet 1 2024 Active amLODIPine (NORVASC) 10 mg tabletIndication s:Essential hypertension Take 1 Tablet by mouth every morning For blood pressure. 90 Tablet 1 2024 Active atorvastatin (LIPITOR) 20 mg tabletIndication s:Type 2 diabetes mellitus with diabetic peripheral angiopathy without gangrene, with long-term current use of insulin ([facility]),Mixed hyperlipidemia Take 1 Tablet by mouth nightly at bedtime stop pravastatin 10 mg 90 Tablet 1 2024 Active isosorbide mononitrate ER (IMDUR) 30 mg 24 hr tabletIndication s:Primary hypertension,Per ipheral venous insufficiency TOME GAGE TABLETA POR VIA ORAL CADA MANANA 90 Tablet 2 2024 Active baclofen 5 mg tab TOME GAGE TABLETA POR VIA ORAL CADA SEIS A OCHO HORAS CUANDO SEA NECESARIO PARA ESPASMOS MUSCULARES 360 Tablet 1 2024 Active oxyCODONE (ROXICODONE) 10 mg tab tabletIndication s:Sciatica, unspecified laterality,Osteo arthritis, unspecified osteoarthritis type, unspecified site,Fibromyalgi a,Peripheral venous insufficiency,Ce rvical pain (neck),Myofascia l muscle pain Take 1 Tablet by mouth every 6 to 8 (six to eight) hours as needed for pain 112 Tablet 2024 Active isosorbide mononitrate ER (IMDUR) 30 mg 24 hr tabletIndication s:Primary hypertension,Per ipheral venous insufficiency TOME GAGE TABLETA POR VIA ORAL CADA MANANA 90 Tablet 2 07/08 Discontinued amLODIPine (NORVASC) 10 mg tabletIndication s:Essential hypertension Take 1 Tablet by mouth every morning For blood pressure. 90 Tablet 1 07/04 Discontinued( Reorder (E-Cancel Not Sent)) atorvastatin (LIPITOR) 20 mg tabletIndication s:Type 2 diabetes mellitus with diabetic peripheral angiopathy without gangrene, with long-term current use of insulin ([facility]),Mixed hyperlipidemia Take 1 Tablet by mouth nightly at bedtime stop pravastatin 10 mg 90 Tablet 1 07/04 Discontinued( Reorder (E-Cancel Not Sent)) acetaminophen (TYLENOL 8 HOUR) 650 mg CR tabletIndication s:Routine adult health maintenance TAKE 1 TABLET BY MOUTH EVERY 8 HOURS NEEDED FOR PAIN INDICATIONS: PAIN ASSOCIATED WITH ARTHRITIS 90 Tablet 1 07/02 Discontinued baclofen 5 mg tab 07/09 Discontinued( Reorder (E-Cancel Not Sent)) oxyCODONE (ROXICODONE) 10 mg tab tabletIndication s:Sciatica, unspecified laterality,Osteo arthritis, unspecified osteoarthritis type, unspecified site,Fibromyalgi a,Peripheral venous insufficiency,Ce rvical pain (neck),Myofascia l muscle pain Take 1 Tablet by mouth every 6 to 8 (six to eight) hours as needed for pain 56 Tablet 07/22 Discontinued( Reorder (E-Cancel Not Sent)) baclofen 5 mg tab Take 1 Tablet by mouth every 6 to 8 (six to eight) hours as needed (muscle spasm) 60 Tablet 1 07/09 Discontinued baclofen 5 mg tab Take one tablet twice daily as needed for muscle spasms 60 Tablet 1 07/22 Discontinued Active Problems Problem Noted Date Diagnosed [...] syndrome 08/08/2022 08/09/19 23 Diabetic peripheral angiopathy ([facility]) 023 08/08/2022 Dry skin 08/08/2022 08/08/2022 Dysphagia 08/08/2022 08/08/2022 Incontinence of urine 08/08/2022 08/08/2022 Early onset Alzheimer's dementia ([facility]) 08/0808/08/2022 Epigastric pain 08/08/2022 08/08/2022 Left ventricular hypertrophy 08/08/202204/2022 Overview (03/05/2024): 12/20/23 at [facility] Cardio Chest pain Improved with Imdur; [...] may be normal for the patient's age. 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 left catarct surgery on 08/28/08 by SURGEON: Tana Coronado M.D. CKD (chronic kidney disease) stage 3, GFR 30-59 ml/min ([facility]) 11/07/2017 08/08/2022 Meniere disease 11/07/2017 08/08/2022 Overview (08/08/2022): 2016 Dr Baker Pulmonary hypertension ([facility]) 11/07/2017 08/08/2022 Overview (08/08/2022): b/l submassive PE diagnosed on Dec 20 16 in [facility] b/l submassive PE diagnosed on Dec 20 16 in [facility] 2016 DAVID RVSP- 46 Tubular adenoma of colon 11/07/2017 023 Overview (08/08/2022): 2005 Hyperparathyroidism ([facility]) 08/29/2017 Overview (08/08/2022): Right lower parathyroidectomy. 06/16/08 SURGEON: Danny Marie M.D. BANANA EXPERT: Naima Bowling M.D. Kidney stone 08/29/2017 08/08/2022 Hyperlipidemia LDL goal <70 08/29/2017 05/0 04/2022 Essential hypertension 08/29/2017 Seizure disorder ([facility]) 08/29/201708/08 Overview (08/08/2022): Not on medication Viral hepatitis C 08/29/2017 08/08/2022 Osteoarthrosis 08/23/2017 08/08/2022 Overview (08/08/2022): EGD on 06/24/16 by GI, Dr Damien caballero gastritis and esophageal varices grade 1 Lumbar spine Allergic rhinitis 08/23/2017 08/08/2022 Depression 08/23/2017 08/08/2022 Asthma-chronic obstructive p ulmonary disease overlap syndrome ([facility]) 08/23/2017 08/08/2022 Type 2 diabetes mellitus wit h diabetic peripheral angiopathy without gangrene, with long-term current use of insulin ([facility]) 08/23/2017 08/08/2022 Overview (05/06/2024): DM dx: 51 [...] (11/10/10, 05/20/04) Diabetes foot exam: 04/25/24 at [facility] - notes on file 02/21/24 at [facility] - notes on file Diabetes retinal [...] new glasses RX, optional F/U 1 year [facility] Endocrinology: 11/24/22 Start Tradjenta 5 mg [...] 12/2015, involving 2 of 2 peroneal veins, [facility] General History of pulmonary embolism 07/19/2017 Overview (08/08/2022): Bilateral, 12/2015, [facility] Tricuspid valve insufficiency 05/24/2017 Overview (03/05/2024): 12/20/23 at [facility] Cardio Chest pain Improved with Imdur; [...] dysfunction 05/24/2017 08/08/2022 Overview (03/05/2024): 12/20/23 at [facility] Cardio Chest pain Improved with Imdur; [...] normal for the patient's age. Esophageal varices ([facility]) 06/24/201604/2022 Overview (08/08/2022): endoscopy 10/05/2018 w non bleeding grade 1 esophageal varicesEGD on 06/24/16 by GI, Dr Damien Dobbins w gastritis and esophageal varices grade 1 06/2106 EGD, Grade 1 endoscopy 10/05/2018 w non bleeding grade 1 esophageal varicesEGD on 06/24/16 by GI, Dr Damien caballero gastritis and esophageal varices grade 1 Right ventricular dilation 12/22/201508/08 Overview (08/08/2022): TTE 12/22/15 in [facility]: RV dilatation, RVSP 46 TTE 12/22/15 in [facility]: RV dilatation, RVSP 46 Anemia 12/21/2015 08/08/2022 Deep vein thrombosis (DVT) ([facility]) 12/21/2015 08/08/2022 Overview (08/08/2022): LE US- DVT involving 2 of 2 peroneal veins diagnosed on Dec 20 [facility] LE US- DVT involving 2 of 2 peroneal veins diagnosed on Dec 20 [facility] Positive PPD 10/09/2014 08/08/2022 Overview (08/08/2022): Never [...] Peripheral venous insufficiency 10/31/2011 08/08/2022 Diabetic neuropathy ([facility]) 09/19/2007 Sciatica 05/24/2004 08/08/2022 Tubular adenoma 04/10/2004 08/08/2022 Overview (08/08/2022): [facility] colo July 2009 exc for 2 hyperplastic polypsColonoscopy 2004 at [facility] [place] per letter of Dr Amor Dobbins Tubular adenoma 04/10/2004 08/08/2022 Overview (08/08/2022): [facility] colo July 2009 exc for 2 hyperplastic polypsColonoscopy 2004 at [facility] [place] per letter of Dr Amor Dobbins Encounters Date Type Department Care Team Description 06/06/2024 3:20 PM EST Telemedicine Visit [facility] [address] [place] [phone] Mark Morales NP Cervical pain (neck) (Primary Dx); Fibromyalgia 05/06/2024 3:20 PM EST Office Visit [facility] [address] [place] [phone] Darwin Encinas, Anju Type 2 diabetes mellitus with diabetic peripheral angiopathy without gangrene, with long-term current use of insulin ([facility]) (Primary Dx); Essential hypertension; Hyperlipidemia LDL goal <70 from Last 3 Months Immunizations Immunization Administration Dates Next Due COVID-19,SARS-COV-2 VACCINE, UNSPECIFIED [...] Contact Info) Description 07/24/2024 3:40 PM EDT Telemedicine Visit [facility] [address] [place] [phone] Darwin Encinas, PharmD [address] [place] [address] Health Maintenance Due Date Last Done Comments [...] Td or Tdap) 05/12/2024 05/12/2014, 11/10/2010, 11/10/2010 [id number] ( season) 2024 12/27/2023, 02/14/2023, 05/25/2022, Additional history exists Diabetes HbA1c 07/23/2024 04/24/2024, 10/08, 07/26/2023, Additional history exists Urine Albumin Creatinine Rat io Screening 07/25/2024 07/26/2023 Tobacco Screening 08/24/2024 08/25/2023 Diabetes Foot Exam 10/24/2024 10/25/2023 Falls Prevention 10/24/2024 10/25/2023 Serum Creatinine 10/24/2024 10/25/2023, 04/2022, 12/25/2015 TSH Monitoring 10/24/2024 10/25/2023, 08/08/2022 Medicare Annual Wellness Visit 12/26/2024 12/27/2023 , 08/08/2022 EGD (Upper Endoscopy) 08/08/2025 08/08/2022 Imm-Pneumococcal 65+ Completed 05/12/2014, 11/10/2010, 05/20/2004 Imm-Zoster, Recombinant Completed 12/09/19, 09/15/2021, 10/16/2012 Bone Density Screening Completed 11/22/2022 Imm-Influenza Completed 12/27/2023, 04/11, 05/25/2022, Additional history exists Retinopathy Screening Discontinued 04/24/2024, 025 Alcohol and Drug Screen Completed 05/06/19, 05/08/2023, 05/08/2023, Additional history exists Procedures Procedure Name Priority Date/Time Associated Diagnosis Comments OTHER ORDERS SCANNED DOCUMENT 07/01/2024 3:00 AM EDT REFERRAL SCANNED DOCUMENT 06/19/2024 3:00 AM EDT GLUCOSE, BLOOD BY GLUCOSE MONITORING DEVICE (CLIA WAIVED)POCT Routine 05/06/2024 3:38 PM EST Type 2 diabetes mellitus with diabetic peripheral angiopathy without gangrene, with long-term current use of insulin ([facility]) REFERRAL SCANNED DOCUMENT 05/02/2024 3:00 AM EST REFERRAL SCANNED DOCUMENT 05/01/2024 3:00 AM EST IMAGING SCANNED DOCUMENT 05/01/2024 3:00 AM EST IMAGING SCANNED DOCUMENT 05/01/2024 3:00 AM EST HEMOGLOBIN GLYCOSYLATED A1C Routine 04/24/2024 1:09 PM EST Type 2 diabetes mellitus with diabetic peripheral angiopathy without gangrene, with long-term current use of insulin ([facility]) EYE EXAM 04/24/2024 3:00 AM EST TSH W/RFLX FREE T4 Routine 10/25/2023 11 :27 AM EDT Hyperparathyroidism ([facility]) Prediabetes COMPREHENSIVE METABOLIC PANEL Routine 10/25/2023 11:27 AM EDT Cirrhosis of liver without ascites, unspecified hepatic cirrhosis type ([facility]) Hyperparathyroidism ([facility]) Type 2 diabetes mellitus with diabetic peripheral angiopathy without gangrene, with long-term current use of insulin ([facility]) Diabetic mononeuropathy associated with type 2 diabetes mellitus ([facility]) Hepatitis C virus infection without hepatic coma, unspecified chronicity Resistant hypertension MICROALBUMIN/CREATINI NE RATIO, URINE, RANDOM Routine 07/26/2023 2:42 PM EDT Type 2 diabetes mellitus with diabetic nephropathy, with long-term current use of insulin ([facility]) LIPID PANEL Routine 05/08/2023 3:04 PM EST Hypercholesterolemia HISTORIC DEXA SCAN 11/22/2022 3: 00 AM EDT US ABDOMEN ULTRASOUND Routine 10/21/2022 3:00 AM EDT Abdominal pain, unspecified abdominal location UPPER GI ENDOSCOPY Routine 08/08/2022 11 :41 AM EDT Varices of esophagus determined by endoscopy ([facility]) from Last 3 Months or Most Recently Relevant to Health Maintenance Results * OTHER ORDERS SCANNED DOCUMENT (07/01/2024 3:00 AM EDT) 07/01/2024 3:00 AM EDT us Massimo Eleuterio PA SCAN OTHER ORDERS Final Result * REFERRAL SCANNED DOCUMENT (06/19/2024 3:00 AM EDT) Only the most recent of3 resultswithin the time period is included. 06/19/2024 3:00 AM EDT [employer] Massimo Eleuterio PA SCAN REFERRAL Final Result * (ABNORMAL) GLUCOSE, BLOOD BY GLUCOSE MONITORING DEVICE (CLIA WAIVED)POCT (05/06/2024 3:38 PM EST) GLUCOSE 155(A) 70 - 100 mg/dL [facility] POCT Capillary Blood Blood / Unknown 3:38 PM EST Darwin Encinas PharmD LAB - BLOOD DRAW Final Re sult [facility] POCT * IMAGING SCANNED DOCUMENT (05/01/2024 3:00 AM EST) Only the most recent of2 resultswithin the time period is included. 05/01/2024 3:00 AM EST [employer] Massimo Eleuterio PA SCAN IMAGING Final Result * (ABNORMAL) HEMOGLOBIN GLYCOSYLATED A1C (04/24/2024 1:09 PM EST) HEMOGLOBIN A1C 8.7(H) <5.7 % of total Hgb [employer] Comment: For someone without known diabetes, a [...] PM EST 04/24/2024 1:09 PM EST Narrative [employer] [facility] - 04/25/2024 3:26 AM EST FASTING:NO Darwin SmallD LAB - BLOOD DRAW Final Re sult Performing Organization Address [facility] Co de Phone Number [employer] [address] [address], [employer] [address] [address] * EYE EXAM (04/24/2024 3:00 AM EST) 04/24/2024 3:00 AM EST Massimo PACHECO OTHER Edited Result - Final * TSH W/RFLX FREE T4 (10/25/2023 11:27 AM EDT) TSH W/REFLEX TO FT4 2.80 0.40 - 4.50 mIU/L Experiment [facility] Blood Blood / Unknown 10/25/2023 1 1:27 AM EDT 10/25/2023 11:27 AM EDT Massimo PACHECO LAB - BLOOD DRAW Final Result Performing Organization Address [facility]/ZIP Co de Phone Number [employer] [address] [address], [employer] [address] [address] * (ABNORMAL) COMPREHENSIVE METABOLIC PANEL (10/25/2023 11:27 AM EDT) GLUCOSE 118(H) 65 - 99 mg/dL Experiment [facility] Comment: ?Fasting reference interval For someone without known diabetes, a glucose value between 100 and 125 mg/dL is consistent with prediabetes and should be confirmed with a follow-up test. UREA NITROGEN (BUN) 16 7 - 25 mg/dL [employer] [facility] CREATININE (blood) 0.85 0.60 - 1.00 mg/dL [employer] [facility] EGFR 70 > OR = 60 mL/min/1. 73m2 [employer] [facility] BUN/CREATININE RATIO SEE NOTE: [employer] [facility] Comment: ?? Not Reported: BUN and Creatinine are within ?? reference range. ? SODIUM 142 135 - 146 mmol/L [employer] [facility] POTASSIUM 4.8 3.5 - 5.3 mmol/L [employer] [facility] CHLORIDE 104 98 - 110 mmol/L [employer] [facility] CARBON DIOXIDE 29 20 - 32 mmol/L [employer] [facility] CALCIUM 9.5 8.6 - 10.4 mg/dL [employer] [facility] PROTEIN, TOTAL 7.0 6.1 - 8.1 g/dL [employer] [facility] ALBUMIN 4.3 3.6 - 5.1 g/dL [employer] [facility] GLOBULIN 2.7 1.9 - 3.7 g/dL (calc) [employer] [facility] ALBUMIN/GLOBULI N RATIO 1.6 1.0 - 2.5 (calc) [employer] [facility] BILIRUBIN, TOTAL 0.5 0.2 - 1.2 mg/dL [employer] [facility] ALKALINE PHOSPHATASE 87 37 - 153 U/L [employer] [facility] AST 16 10 - 35 U/L [employer] [facility] ALT 10 6 - 29 U/L [employer] [facility] Blood Blood / Unknown 10/25/2023 1 1:27 AM EDT 10/25/2023 11:27 AM EDT us Massimo PACHECO LAB - BLOOD DRAW Final Result [employer] [facility] [address] [address], [employer] [facility] [address] [place] [address] * MICROALBUMIN/CREATININE RATIO, URINE, RANDOM (07/26/2023 2:42 PM EDT) CREATININE, RANDOM URINE 140 20 - 275 mg/dL [employer] MICROALBUMIN 1.2 mg/dL [employer] Comment: Reference Range Not established MICROALBUMIN/CREA TININE RATIO, RANDOM URINE 9 <30 mg/g creat [employer] Comment: The ADA defines abnormalities in albumin [...] - NO BLOOD DRAW Final R esult [facility] [address] [address], [employer] [address] [place] [address] * (ABNORMAL) LIPID PANEL (05/08/2023 3:04 PM EST) CHOLESTEROL, TOTAL 197 <200 mg/dL [employer] HDL CHOLESTEROL 61 > OR = 50 mg/dL [employer] TRIGLYCERIDES 317(H) <150 mg/dL [employer] Comment: If a non-fasting specimen was collected, consider repeat triglyceride testing on a fasting specimen if clinically indicated. Lexi et al. J. of Clin. Lipidol. 2015;9:129-169. LDL-CHOLESTEROL 94 99 mg/dL (calc) [employer] Comment: Reference range: <100 Desirable range <100 mg/dL for primary prevention; ?? <70 mg/dL for patients with CHD or diabetic patients with > or = 2 CHD risk factors. LDL-C is now calculated using the Alvarez calculation, which is a validated novel method providing better accuracy than the Friedewald equation in the estimation of LDL-C. Gilles SPENCER et al. JESUS. 2013;310(19): 7003-3210 (http://education.WiOffer/faq/VBP864) CHOL/HDLC RATIO 3.2 <5.0 (calc) [employer] NON-HDL CHOLESTEROL 136(H) <130 mg/dL (calc) Experiment [facility] Comment: For patients with diabetes plus 1 major ASCVD risk factor, treating to a non-HDL-C goal of <100 mg/dL (LDL-C of <70 mg/dL) is considered a therapeutic option. Blood Blood / Unknown 05/08/2023 3 :04 PM EST 05/08/2023 3:05 PM EST us Massimo PACHECO LAB - BLOOD DRAW Final Result [employer] [address] [address], [employer] [address] [address] * HISTORIC DEXA SCAN (11/22/2022 3:00 AM EDT) 11/22/2022 3:00 AM EDT us Massimo PACHECO IMG DXA Final Result * US ABDOMEN ULTRASOUND (CAPE COD) (10/21/2022 3:00 AM EDT) 10/21/2022 3:00 AM EDT us Massimo PACHECO IMG ULTRASOUND Edited Result - Final from Last 3 Months or Most Recently Relevant to Health Maintenance Insurance [facility] Member Subscriber Plan / Payer (Ef fective 2017-Present) Name:Leonie Corea Relation to Subscriber:Self Name:Leonie Corea Payer ID:[id number] Group ID:Not on file Type:Medicare Address: [address] [employer] Member Subscriber Plan / Payer (Ef fective 2012-Present) Name:Leonie Corea Relation to Subscriber:Self Name:Leonie Corea Payer ID:[id number] Group ID:Not on file Type:Indemnity Address: [place] [address] [place] [address] 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
--- OUTSIDE RECORDS SUMMARY | 2024-07-24 12:33 | XMS_ITS ---
Author Organization [facility] Address [address] [place] [address] Care Team Providers Care Board Turner Name Role Phone RICKY GARZA, DAISY Primary Care Provider Unavailable Amor Dobbins Jr REASON FOR VISIT cancel appt Encounters Encounter Location Date Provider Diagnosis [facility] [address] [place] [address] 01/15/2024 Amor Dobbins Jr Plan Of Treatment No Information Progress Notes * TOMMY CHOU EDOB:1945 (78 yo F)Acc No.[id number]:01/15/2024 Patient:?TOMMY CHOU :1945???Age:78 Y???Sex:Female Address:[address] [place] [address], [place] [address] * true * Date:? Generated for Printi ng/Faxing/eTransmitting on:?07/24/2024 12:32 PM EDT
--- OUTSIDE RECORDS SUMMARY | 2024-07-24 12:33 | XMS_ITS | Patient Health Record ---
Author Organization [facility] Address [address] [place] [address] Care Team Providers Care Enrollment Counselor Name Role Phone Massimo Figueroa Primary Care Provider Unavail able Miguel A Layne Unavailable [phone] Allergies Allergen (clinical drug ingredient) Drug/Non Drug Allergy documented on EMR Reaction Allergy Type Onset Date Status amoxicillin Amoxicillin hives Drug Allergy Act fred Lidocaine hives Drug Allergy Active morphine Morphine [...] Active Celecoxib 200 MG (Prior Auth: Rx Ref#:[id number]) Oral for 30 Not-Taking Tresiba Active DULoxetine HCl 60 MG (Prior Auth: Rx Ref#:[id number]) Oral for 30 Not-Taking NovoLOG Active Enalapril Maleate 10 MG (Prior Auth: Rx Ref#:[id number]) Oral for 90 Not-Taking Acetaminophen Extra Strength 500 MG (Prior Auth: Rx Ref#:[id number]) Oral for 13 Active Gabapentin 400 MG (Prior Auth: Rx Ref#:[id number]) Oral for 90 Not-Taking Albuterol Sulfate (2.5 MG/3ML) 0.083% (Prior Auth: Rx Ref#:[id number]) Inhalation for 10 Active Ferrous Sulfate 325 (65 Fe) MG 1 tablet Orally Once a day for 30 day(s) Not-Taking Capsaicin 0.025 % 1 application to affected area as needed Externally Three times a day Active Fluticasone Furoate 200 MCG/ACT 1 puff Inhalation Once a day Active hydroCHLOROthiazide 12.5 MG (Prior Auth: Rx Ref#:[id number]) Oral for 30 Active Polyethylene Glycol 3350 - as directed Active Flunisolide 25 MCG/ACT (0.025%) (Prior Auth: Rx Ref#:[id number]) Nasal for 25 Active Extra Depth Orthopedic Shoes (1 Pair) with Customized Heat Molded Multidensity Innersoles (3 Pair) as directed Dx: IDDM/Polyneuropathy (E10.42), Hammertoe Foot Deformity (M20.41,M20.42), Preulcerative Skin Lesion(s) (L85.1) 01/12/2023 Active Loratadine 10 MG (Prior Auth: Rx Ref#:[id number]) Oral for 90 Active Montelukast Sodium 10 MG (Prior Auth: Rx Ref#:[id number]) Oral for 30 Active oxyCODONE HCl 5 MG (Schedule II Drug) (Prior Auth: Rx Ref#:[id number]) Oral for 28 Active Pantoprazole Sodium 40 MG (Prior Auth: R x Ref#:[id number]) Oral for 30 Active Pravastatin Sodium 10 MG (Prior Auth: Rx Ref#:[id number]) Oral for 30 Active Aspirin Low Dose 81 MG (Prior Auth: Rx Ref#:[id number]) Oral for 90 Not-Taking Citracal + D [...] Problem Acquired hammer toe of right foot (2607033948091189 ) Other hammer toe(s) (acquired), right foot (M20.41) Active confirmed Problem Acquired hammer toe of left foot (4947868729090060 ) Other hammer toe(s) (acquired), left foot (M20.42) Active confirmed Problem Polyneuropathy due to diabetes mellitus type I (131377014) Type 1 diabetes mellitus with diabetic polyneuropathy (E10.42) Active confirmed Plan Of Treatment Pending Test Test Name Order Date X ray : Foot, left 3V 12/18/2018 X ray : Foot, right 3V 12/18/2018 14596-VYOMNWU NAIL, 6 OR MORE 11/10/2021 90948-VIZAFWL NAIL, 6 OR MORE 01/12/2023 58974-NZRA SKIN LESIONS, OVER 4 01/13/20 23 40355-JGFK SKIN LESIONS, OVER 4 11/11/19 22 52206-ANRV SKIN LESIONS, OVER 4 09/19/19 19 59172-JNPW SKIN LESIONS, OVER 4 12/19/19 19 90931-KWKI SKIN LESIONS, OVER 4 03/26/20 19 30192-PVXN SKIN LESIONS, OVER 4 09/09/19 21 92930-ARVT SKIN LESIONS, OVER 4 06/12/19 22 Insurance Providers Payer Name Payer Address Payer Phone Subscriber Number Group Number Insured Name Patient Relationship to Insured Coverage Start Date Coverage End Date [facility] [employer] Claims [address] [place] [phone] [id number] Leonie Corea Self - patient is the [...] History Reason Date(Month/Year) [facility]- check her heart [facility] for kidney stones 05/01
--- OUTSIDE RECORDS SUMMARY | 2024-07-24 12:33 | XMS_ITS | Data Portability ---
Author Organization [employer] Address [address] [place] [address] Care Team Providers Care Tripper Name Role Phone MARCI FELY Primary Care Provider [phone] HIM CCA OTHER Assessment Encounter Date Assessment Date Assessment LastModified by Organization Details LastModified Time 02/29/2024 02/29/2024 Evaluation in the field was performed by my mass spec colleague, as noted above, I provided real-time [...] Assessment and Plan as documented by the Floor Layer Apprentice. Patient given the opportunity to ask questions. Our service contacted for an assessment of: Urinary frequency As per above, patient with approximately several days of urinary frequency. Denies dysuria, abdominal pain, suprapubic pain, flank pain, fever, chills. Does have diabetes and sugars have been running high. Does not specifically endorse polydipsia. No history of frequent urinary tract infections Per mass spec on the scene, vital signs are stable [...] Appointments None recorded. Lab urinalysis, dipstick 2023 [facility], [address] [place] [address], [id number] 4 19:24:48 culture, urine 2023 [place] (Centralized Electronic Ordering - All Locations), Patient Can Go To The Location Of Their Choice, [address] 5 20:05:30 urinalysis, dipstick 2023 [facility], [address] [place] [address], [id number] 4 18:47:22 culture, urine 2023 [place] (Centralized Electronic Ordering - All Locations), Patient Can Go To The Location Of Their Choice, [address] 4 22:06:00 Referral None recorded. Procedures None recorded. Surgeries None recorded. Imaging None recorded. Medication Orders cefuroxime axetil 500 mg tablet 2023 [facility][id number], [address] [place], [address], 17:49:37 Patient TargetsNo targets recorded. Patient InstructionsNo instructions recorded. Reason for Referral None Reported. Results Created Date Observation Date Name Description Value Unit Range Abnormal Flag Note LastModifiedBy Organization Detail LastModifiedTime 02/29/20 24 03/01/2024 URINE CULTU RE, ROUTI NE urine culture, routine Final report Not Available [facility] ([facility]) [address] [place], [address], 03/01/2024 22:06:00 02/29/20 24 03/01/2024 URINE CULTU RE, ROUTI NE result 1 No growth Not Available [facility] ([facility]) [address] [place], [address], 03/01/2024 22:06:00 04/09/20 24 04/10/2024 URINE CULTU RE, ROUTI NE urine culture, routine Final report Not Available [facility] ([facility]) [address] [facility], [place], [address], 04/10/2024 20:05:30 04/09/20 24 04/10/2024 URINE CULTU RE, ROUTI NE result 1 No growth Not Available [facility] ([facility]) [address] [place], [address], 04/10/2024 20:05:30 Result Notes None recorded. Medical Equipment None Reported. Allergies Allergen ID Allergen Name Allergen Category Reaction Reaction Severity Criticality Documentation Date Start Date Code Code System Note Provider Name and Address Organization Details Recorded Time 94925 enalapril Not available Not available Not available Not available 02/29/2024 3827 RxNorm Not Available [facility] - production 11:30:38 9685 Product containin g penicilli n (product) medicatio n Not available Not available Not available 02/06/2024 83556 8001 SNOMED Not Available [facility] - production 04:14:41 9686 lidocaine medicatio n Not available Not available Not available 02/06/2024 6387 RxNorm Not Available [facility] - production 4 04:14:41 9687 morphine medicatio n Not available Not available Not available 02/06/2024 7052 RxNorm Not Available [facility] 4 04:14:41 Medications Name Sig Start Date [...] Not Available No t Available Dexcom G7 Tooth Clerk USE TO TEST BLOOD GLUCOSE CONTINUOUSL Y (DEXCOM G7 MILK AND CREAM GRADER) active Not Available Not Available No t [...] /min 113 mm[Hg] 74 mm[Hg] Not Available [email or web address] - 4 13:36:27 Date Recorded Oxygen saturation Oxygen saturation in Arterial blood by Pulse oximetry Body height Heart rate Respiratory rate Body temperature Body weight Systolic blood pressure Diastolic blood pressure Provider Name and Address Organization Details Last Updated DateTime 4 98 % 98 % 160.02 cm 67 /min 16 /min 98.3 [degF] 18344.6 16 g 117 mm[Hg] 61 mm[Hg] Not Available [email or web address] - [employer] 4 17:46:27 Date Recorded Body temperature Body weight Body height Heart rate Oxygen saturation Oxygen saturation in Arterial blood by Pulse oximetry Respiratory rate Systolic blood pressure Diastolic blood pressure Provider Name and Address Organization Details Last Updated DateTime 4 98.7 [degF] 05289.9 84 g 160.02 cm 80 /min 99 % 99 % 18 /min 117 mm[Hg] 67 mm[Hg] Not Available [employer] 4 17:07:34 Social History None recorded. Functional Status None recorded. Mental Status None recorded. Family History Nothing Reported. Medical History No medical history recorded. Gynecological HistoryNo gynecological history recorded. Obstetrics History GPAL:G 0 P 0 0 0 0 Past Encounters Encounter ID Performer Location Encounter Start Date Encounter Closed Date Diagnosis/Indication Diagnosis SNOMED-CT Code Diagnosis ICD10 Code Diagnosis Note [id number] Wild Mendoza MD [facility] - [facility] [address] [place] [address] 06/12/2023 13:36:18 06/12/2023 18:56:08 Contusion of left lower leg 6310696159 6331611 S80.12XA This 77-year-ol d female bruised her left anterior lower leg when getting out of the bathtub yesterday. She appears to has a bruise with no deformity. She is taking blood thinners. I recommende d ice packs and elevation. She will follow-up with her PCP for any persistent symptoms. The patient agreed with this plan. [id number] Amina Fatima MD Main - [facility] [address] [place] [phone] 02/29/2024 17:46:24 03/01/2024 00:46:10 Dysuria 40275940 R30.0 [id number] Kimmy Chang MD Main - [facility] [address] [place] [phone] 04/09/2024 16:51:24 04/09/2024 22:30:06 Urinary symptoms 879930701 R39.9 Increased frequency of urination 678804293 R35.0 Health Concerns Section Related Observation LastModified by Organization Detai ls LastModified Time None Recorded Concern Status LastModified by Organization Details LastModified Time None Recorded Advance Directives Directive None Recorded Payers Encounter Date Sequence Insurance Name Policy Number Policy Martinez Covered Member ID Martinez Member ID Guarantor Name 06/12/[address] [facility] - DOS ON OR AFTER 2022 - DUAL ELIGIBLE - HALFWAY OPTIONS AND ONE CARE (MEDICARE REPLACEMENT/ADV ANTAGE - HMO) Leonie Corea [id number] Leonie E Corea 02/29/[address] [facility] - DOS ON OR AFTER 2022 - DUAL ELIGIBLE - HALFWAY OPTIONS AND ONE CARE (MEDICARE REPLACEMENT/ADV ANTAGE - HMO) Leonie Corea [id number] Leonie E Corea 04/09/[address] [facility] - DOS ON OR AFTER 2022 - DUAL ELIGIBLE - HALFWAY OPTIONS AND ONE CARE (MEDICARE REPLACEMENT/ADV ANTAGE - HMO) Leonie Corea [id number] Leonie E Corea Notes Date Note Type Note Provider Name and Address Organization Details Recorded Time 06/12/2023 text/html [facility] Nurse Triage Notes (Odessa Perez): Reason For Request: Fall Chief Complaints: Injury PMH: Heart Disease, Diabetes, Hypertension Allergies: Penicillin, Lidocaine, Morphine Comments: Called back member and direct care staffer for c/o falling yesterday when getting out [...] but no call back yet. Verified name//address. [facility] [address] [facility],[address], [place], [address], Mesitis 06/12/2023 13:41:12 02/29/2024 text/html [facility] Nurse Triage Notes (Velia Shields): Reason For Request: UTI Patient Reports: Painful urination; Frequent and increased urination with flank pain; Painful urination with or without fever Denies: Inability to fully empty bladder Chief Complaints: Urinary symptoms, Diabetes-related PMH: Coronary Artery Disease, Hypertension, Diabetes Mellitus Type 2 Comments: Customer Solutions Architect verified the name//address and phone number.Patient is [...] s/s and seek emergency treatment if needed Floor Layer Apprentice Organization Information for Denilson Diaz Business Legal Name: [employer].? Address: [address] [place] [address], Operating System Programmer: Tobin Mclain MD CLIA No.: [id number] Floor Layer Apprentice POC Test Results from Denilson Diaz Urine Dipstick (17:44:16) Urine leukocytes: + ANT Urine nitrites: - NIT Urine urobilinogen: - URO Urine protein: +/- PRO Urine pH: 5.0 pH Urine blood: +++ BLO Urine specific gravity: 1.010 SG Urine ketones: - KET Urine bilirubin: +/- FRANTZ Urine glucose: - GLU .................. .................. .................. .................. .................. .................. .................. ............... Floor Layer Apprentice Note From Denilson Diaz: [facility] visit for female pt. Pt presents with her daughter at home. Daughter reports pt had onset of burning with urination yesterday in addition to urinary frequency. Daughter also questioning some possible confusion. V/S taken as listed. Pt afebrile. Pt was able to provide urine specimen with dipstick analysis showing leukocytes and blood. Urine culture specimem obtained. Consulted with [facility] Dr. Fatima who started pt on antibiotics and requested urine culture sent to [facility]. Reviewed red flags for ED with pt and daughter. Pt education provided. [facility] Lab Orders: urinalysis, dipstick: Performed .................. .................. .................. .................. .................. .................. .................. ............... [facility] Consulted: Amina Fatima .................. .................. .................. .................. .................. .................. .................. ............... Disposition: Fulfilled Amina Fatima MD [address], [place], [address], Mesitis 02/29/2024 19:43:53 04/09/2024 text/html [facility] Nurse Triage [...] Mellitus Type 2, Chronic Kidney Disease Comments: Customer Solutions Architect verified the patient's name//address and phone number. [...] emergency treatment if needed -Lupe Garza RN Floor Layer Apprentice Organization Information for Laura Woody Business Legal Name: [employer]? Address: [address] [place] [address], Operating System Programmer: Tobin Mclain MD CLIA No.: [id number] Floor Layer Apprentice POC Test Results from Laura Woody Blood [...] under Documents section. Kimmy Chang MD [address], [place], [address], Mesitis 04/09/2024 22:48:45 OBGyn Episode No OBEpisode recorded.
--- OUTSIDE RECORDS SUMMARY | 2024-07-24 12:34 | XMS_ITS ---
Author Organization [facility] Address [address] [place] [address] Care Team Providers Care Manager Paper Name Role Phone RICKY GARZA, DAISY Primary Care Provider Unavailable Amor Dobbins Jr Unavailable REASON FOR VISIT no show Encounters Encounter Location Date Provider Diagnosis [facility] [address] [place] [address] 09/18/2023 Amor Dobbins Jr Plan Of Treatment No Information Progress Notes * TOMMY CHOU EDOB:1945 (78 yo F)Acc No.[id number]:09/18/2023 Patient:?TOMMY CHOU :1945???Age:78 Y???Sex:Female Address:[address] [place] [address], [place] [address] * true * Date:? Generated for Printi ng/Georgetteg/eTransmitting on:?07/24/2024 12:33 PM EDT
--- OUTSIDE RECORDS SUMMARY | 2024-07-24 12:34 | XMS_ITS | Clinical Summary ---
Author Organization [facility] Address [address] [place] [address] Phone Care Team Providers Care Metal Bonding Worker Name Role Phone Massimo Mcclellan Primary Care Provider [phone] Allergies Active Allergy Reactions Criticality Noted Date [...] kidney disease) stage 3, GFR 30-59 ml/min ([facility] V24, [facility] V28) 11/07/2017 Esophageal varices ([facility] V24, [facility] V28) Overview (01/30/2024): 06/2106 EGD, Grade 1 Meniere disease 11/07/2017 Overview (01/30/2024): 2015 Dr Baker Osteopenia 11/07/2017 Pulmonary hypertension ([facility] V24, [facility] V28 ) 11/07/2017 Overview (01/30/2024): 2015 [place] RVSP- 46 Tubular adenoma of colon 11/07/2017 Overview (01/30/2024): 2005 Type 2 diabetes mellitus wit h cataract ([facility] V24, [facility] V28) 11/07/2017 Fibromyalgia 08/29/2017 Hepatitis C 08/29/2017 Hyperlipidemia 08/29/2017 Hyperparathyroidism ([facility] V24) 08/29/2017 Hypertension 08/29/2017 Kidney stone 08/29/2017 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 Overview (01/30/2024): Never treated Seizure disorder ([facility] V24, [facility] V28) 08/09 Overview (01/30/2024): Not on medication Allergic rhinitis 08/23/2017 Anxiety 08/23/2017 Asthma 08/23/2017 Depression 08/23/2017 DM (diabetes mellitus), type 2 with renal complications ([facility] V24, [facility] V28) 08/23/2017 GERD (gastroesophageal reflux disease) 8 Insomnia 08/23/2017 Osteoarthritis 08/23/2017 Overview (01/30/2024): Lumbar spine Encounters Date Type Department Care Team Description 06/28/2024 Telephone Orthopedic Surgery [facility] [address] [address] Florian Mott DPM notes 04/25/2024 2:30 PM EST Office Visit Orthopedic Surgery [facility] [address] [address] Florian Mott DPM Controlled type 2 diabetes with neuropathy (CMS/[facility] V24, CMS/[facility] V28) (Primary Dx); Pain in toes of both [...] Care Team (Late st Contact Info) Description 08/21/2024 1:15 PM EDT Office Visit Orthopedic Surgery [facility] [address] [address] Florian Mott, MAHSA [address] [address] Health Maintenance Due Date Last Done Comments Diabetes: Annual Foot Exam 1955 Diabetes: Annual Retina Eye Exam 1955 Hepatitis A Vaccines (1 of 2 - Risk 2-dose series) 07/06/1963 Hepatitis B Vaccines (1 of 3 - Risk 3-dose series) 2004 RSV Immunization Adult Patients (1 - 1-dose 75+ series) 07/06/2019 Falls [...] age to complete this topic Meningococcal B Vaccine Aged Out No l onger eligible based on patient's age to complete [...] Annual BMP Blood Test Abstracted Historical Provider HEALTH MAINTENANCE Final Result from Last 3 Months or Most Recently Relevant to Health Maintenance Insurance [facility] MEDICARE Member Subscriber Plan / Payer (Ef fective 2012-Present) Name:Leonie Corea Relation to Subscriber:Self Name:Leonie Corea Payer ID:[id number] Group ID:[id number] Type:Not on file Address: [place] [address] [address] [phone] Advance Directives Documents on File Type Date Recorded Patient Manager Cosmetic Expl anation Health Care Decision (hx) 03/30/2021 [...] (hx) 12/25/2015 AD NIEVES DIRECTIVE Care Teams Metal Bonding Worker Relationship Specialty Start Date End Date Massimo Mcclellan PA [address] [place] [address] PCP - General 11/24/23
--- OUTSIDE RECORDS SUMMARY | 2024-07-24 12:34 | XMS_ITS | Patient Health Record ---
Author Organization [facility] Address [address] [place] [address] Care Team Providers Care Technical Customer Support Specialist Name Role Phone RICKY GARZA, DAISY Primary Care Provider Unavailable Amor Dobbins Jr Unavailable [phone] Allergies Allergen (clinical drug ingredient) Drug/Non Drug [...] Once a day for 30 day(s) Active Vzaeklefkmx-Habcbyqta-Toghnd 100-62.5-25 MCG/INH 1 puff Inhalation Once a [...] Problem Status W/U Status Risk Notes Problem 71831412 Epigastric pain (R10.13) Active confirmed Problem 725204819 Gastroesophageal reflux disease without esophagitis (K21.9) Active confirmed Problem 45961129 Iron deficiency anemia, unspecified iron deficiency anemia type (D50.9) Active confirmed Problem 267081448 Anemia, unspecif ied type (D64.9) Active confirmed Problem 37860255 Dysphagia, unspecified type (R13.10) Active confirmed Problem 50760169 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 [address] [place] [address] [id number] TOMMY CHOU Self - patient is the insured Medical (General) History Medical History History ICD Code colonoscopy 12/11/19, right co camilla AVMs, no polyps, previous history of adenomas, followup optional based on age. hepatitis C, rx IFN X2, Harvoni X 24 wexochitl ks 2014, sustained response. seizure disorder diabetes arthritis pulmonary embolism anemia Gastroesophageal reflux disease, EGD 12/10 0, grade 1 varices. Cirrhosis hypertension Surgical History Surgery Date(Month/Year) hysterectomy cholecystectomy Thyroid surgery cataract-lens implants kidney stones removed
== END 2024-07-24 11:08 | disposition home or self-care (01) ==
PROVIDERS: PCP Physician Assistant; Visit Provider Internal Medicine
DX: G95.9 Disease of spinal cord, unspecified (principal); M54.2 Cervicalgia; M54.12 Radiculopathy, cervical region
CPT/HCPCS: 99213

== ENCOUNTER → 2024-07-24 10:37 | Outpatient (BNVA) | payer OTHER, SELFPAY | PROVIDERS: PCP Physician Assistant; Visit Provider Internal Medicine | DX: M54.12 Radiculopathy, cervical region (principal); G95.9 Disease of spinal cord, unspecified | CPT/HCPCS: 99212 ==

== ENCOUNTER 2024-08-09 16:53 | Outpatient (REF) | payer OTHER, SELFPAY ==
--- NOTE | ~2024-08-09 | MR_ITS ---
EXAMINATION: MR CERVICAL SPINE WITHOUT CONTRAST CLINICAL INFORMATION: Disease of spinal cord, unspecified worsening at C4-5 level. COMPARISON: February 12, 2024. TECHNIQUE: MRI of the cervical spine was obtained using routine sequences without contrast. FINDINGS: Paramagnetic field distortion secondary to metallic hardware at C3-4. Craniocervical junction is intact. There is a pannus formation periodontal C1 region. There is no bone marrow STIR signal abnormality. There is a grade 1 retrolisthesis C6-7. There is a grade 1 anterolisthesis C7-T1. There is multilevel buckling deformity of the dorsal aspect of the thecal sac secondary to ligamentum flavum hypertrophy from C4-5 to T2-3 levels. There is a reverse curvature apex at C5-6. There is an a shaped curvature of the cervical thoracic spine. Multifocal patchy hyperintense T2 signal within the eze with air cells hypointense T2 signal extending into the cerebellum medial peduncles. C2-3: No disc herniation. No neuroforamina stenosis. C3-4: Status post anterior intervertebral disc. No cord compression. No cord signal abnormality. No gross neuroforamina stenosis. C4-5: Broad-based disc osteophyte complex formation and ligamentum flavum hypertrophy resulting in spinal cord deformity involving mostly the left hemicord with questionable hyperintense T2 signal. Left neuroforamina and stenosis on a degenerative basis. C5-6: Broad-based disc osteophyte complex formation and ligamentum flavum hypertrophy resulting in cervical spinal cord deformity and flattening and questionable hyperintense T2 cord signal. Bilateral neuroforamina stenosis on a degenerative basis. C6-7: Broad-based disc osteophyte complex formation and ligamentum flavum hypertrophy resulting in central spinal canal stenosis and cord flattening. Bilateral neuroforamina stenosis on a degenerative basis. C7-T1: Broad-based disc osteophyte complex formation and ligamentum flavum hypertrophy resulting in central spinal canal stenosis and cord deformity. No cord signal abnormality. Bilateral neuroforamina narrowing. T1-T2: Broad-based disc osteophyte compresses formation. Ligamentum flavum hypertrophy resulting in central spinal canal stenosis without cord compression. No prevertebral compartment hematoma, mass or fluid collection. Flow-void signal within the main vessels is normal. Codominant vertebral arteries. MR/MR cervical spine wo con IMPRESSION: [place] deformity C3 C7 resulting in cord compression and likely cord edema and or myelopathy at C4-5 and C5-6 levels as well as bilateral neuroforamina stenosis C5-6 and left neuroforamina and stenosis C4-5. Electronically signed by: Patrick Loyola MD 08/12/2024 08:00 AM EDT
--- OUTSIDE RECORDS SUMMARY | 2024-08-09 16:56 | XMS_ITS ---
Author Organization [facility] Address [address] [place] [address] Care Team Providers Care Underground Conduit Installer Name Role Phone RICKY GARZA, DAISY Primary Care Provider Unavailable Amor Dobbins Jr REASON FOR VISIT cancel appt Encounters Encounter Location Date Provider Diagnosis [facility] [address] [place] [address] 01/15/2024 Amor Dobbins Jr Plan Of Treatment No Information Progress Notes * TMOMY CHOU EDOB:1945 (78 yo F)Acc No.[id number]:01/15/2024 Patient:?TOMMY CHOU :1945???Age:78 Y???Sex:Female Address:[address] [place] [address], [place] [address] * true * Date:? Generated for Printi ng/Famatildeg/eTransmitting on:?08/09/2024 04:56 PM EDT
--- OUTSIDE RECORDS SUMMARY | 2024-08-09 16:56 | XMS_ITS | Data Portability ---
Author Organization [employer] [place] in - [facility] Address [address] [place] [address] Care Team Providers Care Cable Placer Name Role Phone MARCI FELY Primary Care Provider HIM CCA OTHER Assessment Encounter Date Assessment Date Assessment LastModified by Organization Details LastModified Time 02/29/2024 02/29/2024 Evaluation in the field was performed by my reshipping clerk colleague, as noted above, I provided real-time [...] Assessment and Plan as documented by the Motor Block Mechanic. Patient given the opportunity to ask questions. Our service contacted for an assessment of: Urinary frequency As per above, patient with approximately several days of urinary frequency. Denies dysuria, abdominal pain, suprapubic pain, flank pain, fever, chills. Does have diabetes and sugars have been running high. Does not specifically endorse polydipsia. No history of frequent urinary tract infections Per reshipping clerk on the scene, vital signs are stable [...] Appointments None recorded. Lab urinalysis, dipstick 2023 [facility], [address] [place] [address], [id number] 4 19:24:48 culture, urine 2023 [facility] (Centralized Electronic Ordering - All Locations), Patient Can Go To The Location Of Their Choice, [id number] 5 20:05:30 urinalysis, dipstick 2023 [facility] [place], [address] [place] [address], [id number] 4 18:47:22 culture, urine 2023 [facility] (Centralized Electronic Ordering - All Locations), Patient Can Go To The Location Of Their Choice, [id number] 4 22:06:00 Referral None recorded. Procedures None recorded. Surgeries None recorded. Imaging None recorded. Medication Orders cefuroxime axetil 500 mg tablet 2023 [facility] #[id number], [address] [place], [address], 17:49:37 Patient TargetsNo targets recorded. Patient InstructionsNo instructions recorded. Reason for Referral None Reported. Results Created Date Observation Date Name Description Value Unit Range Abnormal Flag Note LastModifiedBy Organization Detail LastModifiedTime 02/29/20 24 03/01/2024 URINE CULTU RE, ROUTI NE urine culture, routine Final report Not Available [facility] ([facility]) [address] [place], [address], 03/01/2024 22:06:00 02/29/20 24 03/01/2024 URINE CULTU RE, ROUTI NE result 1 No growth Not Available [facility] ([facility]) [address] [place], [address], 03/01/2024 22:06:00 04/09/20 24 04/10/2024 URINE CULTU RE, ROUTI NE urine culture, routine Final report Not Available [facility] ([facility]) [address] [facility], [place], [address], 04/10/2024 20:05:30 04/09/20 24 04/10/2024 URINE CULTU RE, ROUTI NE result 1 No growth Not Available [facility] ([facility]) [address] [place], [address], 04/10/2024 20:05:30 Result Notes None recorded. Medical Equipment None Reported. Allergies Allergen ID Allergen Name Allergen Category Reaction Reaction Severity Criticality Documentation Date Start Date Code Code System Note Provider Name and Address Organization Details Recorded Time 62303 enalapril Not available Not available Not available Not available 02/29/2024 3827 RxNorm Not Available [facility] - production 11:30:38 9685 Product containin g penicilli n (product) medicatio n Not available Not available Not available 02/06/2024 35473 8001 SNOMED Not Available [facility] - production 04:14:41 9686 lidocaine medicatio n Not available Not available Not available 02/06/2024 6387 RxNorm Not Available [facility] - production 4 04:14:41 9687 morphine medicatio n Not available Not available Not available 02/06/2024 7052 RxNorm Not Available [facility] 4 04:14:41 Medications Name Sig Start Date [...] Not Available No t Available Dexcom G7 Infection Prevention Specialist USE TO TEST BLOOD GLUCOSE CONTINUOUSL Y (DEXCOM G7 PATTERN MAKER PROGRAMER) active Not Available Not Available No t [...] /min 113 mm[Hg] 74 mm[Hg] Not Available [employer] - 4 13:36:27 Date Recorded Oxygen saturation Oxygen saturation in Arterial blood by Pulse oximetry Body height Heart rate Respiratory rate Body temperature Body weight Systolic blood pressure Diastolic blood pressure Provider Name and Address Organization Details Last Updated DateTime 4 98 % 98 % 160.02 cm 67 /min 16 /min 98.3 [degF] 51758.6 16 g 117 mm[Hg] 61 mm[Hg] Not Available [employer] - [employer] 4 17:46:27 Date Recorded Body temperature Body weight Body height Heart rate Oxygen saturation Oxygen saturation in Arterial blood by Pulse oximetry Respiratory rate Systolic blood pressure Diastolic blood pressure Provider Name and Address Organization Details Last Updated DateTime 4 98.7 [degF] 40408.9 84 g 160.02 cm 80 /min 99 % 99 % 18 /min 117 mm[Hg] 67 mm[Hg] Not Available [employer] 4 17:07:34 Social History None recorded. Functional Status None recorded. Mental Status None recorded. Family History Nothing Reported. Medical History No medical history recorded. Gynecological HistoryNo gynecological history recorded. Obstetrics History GPAL:G 0 P 0 0 0 0 Past Encounters Encounter ID Performer Location Encounter Start Date Encounter Closed Date Diagnosis/Indication Diagnosis SNOMED-CT Code Diagnosis ICD10 Code Diagnosis Note [id number] Wild Mendoza MD [facility] - [facility] [address] [place] [address] 06/12/2023 13:36:18 06/12/2023 18:56:08 Contusion of left lower leg 5092992434 8306983 S80.12XA This 77-year-ol d female bruised her left anterior lower leg when getting out of the bathtub yesterday. She appears to has a bruise with no deformity. She is taking blood thinners. I recommende d ice packs and elevation. She will follow-up with her PCP for any persistent symptoms. The patient agreed with this plan. [id number] Amina Fatima MD [facility] - [facility] [address] [place] [phone] 02/29/2024 17:46:24 03/01/2024 00:46:10 Dysuria 73843062 R30.0 [id number] Kimmy Chang MD Main - [facility] [address] [place] [phone] 04/09/2024 16:51:24 04/09/2024 22:30:06 Urinary symptoms 919716202 R39.9 Increased frequency of urination 482254729 R35.0 Health Concerns Section Related Observation LastModified by Organization Detai ls LastModified Time None Recorded Concern Status LastModified by Organization Details LastModified Time None Recorded Advance Directives Directive None Recorded Payers Encounter Date Sequence Insurance Name Policy Number Policy Martinez Covered Member ID Martinez Member ID Guarantor Name 06/12/2023 1 [facility] - DOS ON OR AFTER 2022 - DUAL ELIGIBLE - RESIDENTIAL OPTIONS AND ONE CARE (MEDICARE REPLACEMENT/ADV ANTAGE - HMO) Leonie Corea [id number] Leonie E Corea 02/29/2024 1 [facility] - DOS ON OR AFTER 2022 - DUAL ELIGIBLE - RESIDENTIAL OPTIONS AND ONE CARE (MEDICARE REPLACEMENT/ADV ANTAGE - HMO) Leonie Corea [id number] Leonie E Corea 04/09/2024 1 [facility] - DOS ON OR AFTER 2022 - DUAL ELIGIBLE - RESIDENTIAL OPTIONS AND ONE CARE (MEDICARE REPLACEMENT/ADV ANTAGE - HMO) Leonie Corea [id number] Leonie E Corea Notes Date Note Type Note Provider Name and Address Organization Details Recorded Time 06/12/2023 text/html [facility] Nurse Triage Notes (Odessa Perez): Reason For Request: Fall Chief Complaints: Injury PMH: Heart Disease, Diabetes, Hypertension Allergies: Penicillin, Lidocaine, Morphine Comments: Called back member and acute care occupational therapist for c/o falling yesterday when getting out [...] but no call back yet. Verified name//address. [facility] MD [address] [facility],[address], [place], [address], [employer] 06/12/2023 13:41:12 02/29/2024 text/html [facility] Nurse Triage Notes (Velia Shields): Reason For Request: UTI Patient Reports: Painful urination; Frequent and increased urination with flank pain; Painful urination with or without fever Denies: Inability to fully empty bladder Chief Complaints: Urinary symptoms, Diabetes-related PMH: Coronary Artery Disease, Hypertension, Diabetes Mellitus Type 2 Comments: Optical Lathe Operator verified the name//address and phone number.Patient is [...] s/s and seek emergency treatment if needed Motor Block Mechanic Organization Information for Denilson Diaz Business Legal Name: [employer].? Address: [address] [place] [address], Qa Software Tester: Tobin Mclain MD CLIA No.: [id number] Motor Block Mechanic POC Test Results from Denilson Diaz Urine Dipstick (17:44:16) Urine leukocytes: + ANT Urine nitrites: - NIT Urine urobilinogen: - URO Urine protein: +/- PRO Urine pH: 5.0 pH Urine blood: +++ BLO Urine specific gravity: 1.010 SG Urine ketones: - KET Urine bilirubin: +/- FRANTZ Urine glucose: - GLU .................. .................. .................. .................. .................. .................. .................. ............... Motor Block Mechanic Note From Denilson Diaz: [facility] visit for female pt. Pt presents with her daughter at home. Daughter reports pt had onset of burning with urination yesterday in addition to urinary frequency. Daughter also questioning some possible confusion. V/S taken as listed. Pt afebrile. Pt was able to provide urine specimen with dipstick analysis showing leukocytes and blood. Urine culture specimem obtained. Consulted with [facility] [place]. Fatima who started pt on antibiotics and requested urine culture sent to [facility]. Reviewed red flags for ED with pt and daughter. Pt education provided. [facility] Lab Orders: urinalysis, dipstick: Performed .................. .................. .................. .................. .................. .................. .................. ............... [facility] Consulted: Amina Fatima .................. .................. .................. .................. .................. .................. .................. ............... Disposition: Fulfilled Amina Fatima MD [address], [place], [address], [employer] 02/29/2024 19:43:53 04/09/2024 text/html CRC Nurse Triage [...] Mellitus Type 2, Chronic Kidney Disease Comments: Optical Lathe Operator verified the patient's name//address and phone number. [...] emergency treatment if needed -Lupe Garza RN Motor Block Mechanic Organization Information for Laura Woody Business Legal Name: [employer]? Address: [address] [place] [address], Qa Software Tester: Tobin Mclain MD CLIA No.: [id number] Motor Block Mechanic POC Test Results from Laura Woody Blood [...] Documents section. Kimmy Chang MD [address], [place], [address], [employer] 04/09/2024 22:48:45 OBGyn Episode No OBEpisode recorded.
--- OUTSIDE RECORDS SUMMARY | 2024-08-09 16:57 | XMS_ITS | Encounter Summary ---
Author Organization [facility] Address [address] [place] [address] Care Team Providers Care Art Gallery Internship Name Role Phone Florinda Trinh MD Primary Care Provider Unavailable Massimo Mcclellan PA-C Primary Care Provider Unava ilable Reason for Visit * Reason Onset Date Comments Abnormal Test Results 07/20/[address] le dopplers jeyson with pain and +ddimer and h/o of DVT Encounter Details Date Type Department Care Team Description 07/20/2017 Telephone Pulmonology - [address] [place] [address] Michael Berkowitz MD Abnormal Test Results (needs to have le dopplers jeyson with pain and +ddimer and h/o of DVT) Social History Tobacco Use Types Packs/Day Years Used Date Smoking Tobacco: Never Smokeless Tobacco: Never Sex Assigned at Date Recorded Not on file documented as of this encounter Miscellaneous Notes * Telephone Encounter - Amy Garcia M.A. - 07/20/2017 4:14 PM EDT Scheduled at [address] [place] [address] radiology dept. 07/21/17 11am.order faxed to [phone]. documented in this encounter Plan of Treatment Not on file documented as of this encounter Visit Diagnoses Diagnosis Deep vein thrombosis (DVT) of lower extremity, unspecified chronicity, unspecified laterality, unspecified vein (HCC)- Primary Saddle embolus of pulmonary artery without acute cor pulmonale, unspecified chronicity (HCC) documented in this encounter Care Teams Art Gallery Internship Relationship Specialty Start Date End Date Florinda Trinh MD PCP - General Family Practice 06/01/17 Massimo Mcclellan PA-C PCP - General Internal Medicine 11/24/23 documented as of this encounter
--- OUTSIDE RECORDS SUMMARY | 2024-08-09 16:57 | XMS_ITS | Patient Health Record ---
Author Organization [facility] Address [address] [place] [address] Care Team Providers Care Director Of Sustainable Design Name Role Phone RICKY GARZA, DAISY Primary Care Provider Unavailable Amor Dobbins Jr Unavailable Allergies Allergen (clinical drug ingredient) Drug/Non Drug [...] Once a day for 30 day(s) Active Hchzmkuecam-Yqmhsciel-Hacjxi 100-62.5-25 MCG/INH 1 puff Inhalation Once a [...] Problem Status W/U Status Risk Notes Problem 32254606 Epigastric pain (R10.13) Active confirmed Problem 743465468 Gastroesophageal reflux disease without esophagitis (K21.9) Active confirmed Problem 57553792 Iron deficiency anemia, unspecified iron deficiency anemia type (D50.9) Active confirmed Problem 685957778 Anemia, unspecif ied type (D64.9) Active confirmed Problem 20573554 Dysphagia, unspecified type (R13.10) Active confirmed Problem 24657634 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, 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) Active confirmed Encounters Encounter Location Date Provider Diagnosis [facility] [address] [place] [phone] 09/18/2023 Amor Dobbins Jr [facility] [address] [place] [address] 01/15/2024 Amor Dobbins Jr Plan Of Treatment Pending Test Test Name Order Date BUN 11/09/2020 CREATININE 11/09/2020 LIVER PROFILE 06/06/2014 LIVER PROFILE 11/09/2020 LIVER PROFILE 12/27/2021 CBC w/o DIFF 12/27/2021 CBC w/o DIFF [...] Insured Coverage Start Date Coverage End Date [facility] [address] [place] [address] [id number] TOMMY CHOU Self - patient is the [...]
--- OUTSIDE RECORDS SUMMARY | 2024-08-09 16:57 | XMS_ITS | Clinical Summary ---
Author Organization [address] [facility] Address [address] [place] [address] Phone Care Team Providers Care Marketing Intelligence Manager Name Role Phone Massimo Mcclellan Primary Care Provider [phone] Allergies Active Allergy Reactions Criticality Noted Date [...] kidney disease) stage 3, GFR 30-59 ml/min ([facility] V24, [facility] V28) 11/07/2017 Esophageal varices ([facility] V24, [facility] V28) Overview (01/30/2024): 06/2106 EGD, Grade 1 Meniere disease 11/07/2017 Overview (01/30/2024): 2015 Dr Baker Osteopenia 11/07/2017 Pulmonary hypertension ([facility] V24, [facility] V28 ) 11/07/2017 Overview (01/30/2024): 2015 DAVID RVSP- 46 Tubular adenoma of colon 11/07/2017 Overview (01/30/2024): 2005 Type 2 diabetes mellitus wit h cataract ([facility] V24, [facility] V28) 11/07/2017 Fibromyalgia 08/29/2017 Hepatitis C 08/29/2017 Hyperlipidemia 08/29/2017 Hyperparathyroidism ([facility] V24) 08/29/2017 Hypertension 08/29/2017 Kidney stone 08/29/2017 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 Overview (01/30/2024): Never treated Seizure disorder ([facility] V24, [facility] V28) 08/09 Overview (01/30/2024): Not on medication Allergic rhinitis 08/23/2017 Anxiety 08/23/2017 Asthma 08/23/2017 Depression 08/23/2017 DM (diabetes mellitus), type 2 with renal complications ([facility] V24, [facility] V28) 08/23/2017 GERD (gastroesophageal reflux disease) 8 Insomnia 08/23/2017 Osteoarthritis 08/23/2017 Overview (01/30/2024): Lumbar spine Encounters Date Type Department Care Team Description 06/28/2024 Telephone Orthopedic Surgery [place] [address] [address] Florian Mott DPM notes from Last 3 Months Immunizations Name Administration [...] 1:15 PM EDT Office Visit Orth[facility] [place] [address] [phone] Florian Mott DPM [address] [address] Health Maintenance Due Date Last Done Comments Diabetes: Annual Foot Exam 1955 Diabetes: Annual Retina Eye Exam 1955 Hepatitis A Vaccines (1 of 2 - Risk 2-dose series) 07/06/1963 Hepatitis B Vaccines (1 of 3 - Risk 3-dose series) 2004 RSV Immunization Adult Patients (1 - 1-dose 75+ series) 07/06/2019 Falls Risk Assessment 03/13/2022 Medicare Annual Wellness Visit 03/13/2022 Osteoporosis Screening (Bone Density Screening) 03/13/2022 Social Influencers of Health Screening 03/13/2022 Diabetes: Blood Sugar Control Test (HGBA1C) 04/26/2024 10/25/2023 DTaP,Tdap,and Td Vaccines (3 - Td or Tdap) 05/12/2024 05/12/2014, 11/10/2010 COVID-19 Vaccine (8 - Pfizer risk season) 2024 12/27/2023, 02/14/2023, 05/25/2022, Additional history exists Diabetes: Annual Urine Albumin-Creatinine Ratio (uACR) 07/25/2024 07/26/2023 Depression Screening 10/24/2024 10/25/2023 Diabetes: Annual GFR (Glomerular Filtration Rate) 10/24/2024 10/25/2023, 07/19/2017 Hypertension/CHF/CAD Annual BMP Blood Test 10/24/2024 10/25/2023, 07/19/2017 Cholesterol Screening (Lipid Panel) 05/08/2028 05/08/2023, 05/08/2023, 12/23/2015 Pneumococcal Vaccine: 50+ Years Completed 05/12/2014, 11/10/2010, 05/20/2004 Zoster Vaccines Completed 12/08/2021, 06/0 11/2021, 10/16/2012 Influenza Vaccine Completed 12/27/2023, , 02/04/2023, Additional [...] Most Recently Relevant to Health Maintenance Insurance [facility] MED[facility] Member Subscriber Plan / Payer (Ef fective 2012-Present) Name:Leonie Corea Relation to Subscriber:Self Name:Leonie Corea Payer ID:[id number] Group ID:[id number] Type:Not on file Address: [place] [address] [place] [address] Advance Directives Documents on File Type Date Recorded Patient Granulator Machine Operator Expl anation Health Care Decision (hx) 03/30/2021 [...] (hx) 12/25/2015 AD NIEVES DIRECTIVE Care Teams Marketing Intelligence Manager Relationship Specialty Start Date End Date Massimo Mcclellan PA [address] [place] [address] PCP - General 11/24/23
--- OUTSIDE RECORDS SUMMARY | 2024-08-09 16:57 | XMS_ITS | Patient Health Record ---
Author Organization [facility] Address [address] [place] [address] Care Team Providers Care Instructor Substitute Cosmetology Name Role Phone Massimo Figueroa Primary Care Provider Unavail able Miguel A Layne Unavailable [phone] Allergies Allergen (clinical drug ingredient) Drug/Non Drug [...] Active Celecoxib 200 MG (Prior Auth: Rx Ref#:[id number]) Oral for 30 Not-Taking Tresiba Active DULoxetine HCl 60 MG (Prior Auth: Rx Ref#:[id number]) Oral for 30 Not-Taking NovoLOG Active Enalapril Maleate 10 MG (Prior Auth: Rx Ref#:[id number]) Oral for 90 Not-Taking Acetaminophen Extra Strength 500 MG (Prior Auth: Rx Ref#:[id number]) Oral for 13 Active Gabapentin 400 MG (Prior Auth: Rx Ref#:[id number]) Oral for 90 Not-Taking Albuterol Sulfate (2.5 MG/3ML) 0.083% (Prior Auth: Rx Ref#:[id number]) Inhalation for 10 Active Ferrous Sulfate 325 (65 Fe) MG 1 tablet Orally Once a day for 30 day(s) Not-Taking Capsaicin 0.025 % 1 application to affected area as needed Externally Three times a day Active Fluticasone Furoate 200 MCG/ACT 1 puff Inhalation Once a day Active hydroCHLOROthiazide 12.5 MG (Prior Auth: Rx Ref#:[id number]) Oral for 30 Active Polyethylene Glycol 3350 - as directed Active Flunisolide 25 MCG/ACT (0.025%) (Prior Auth: Rx Ref#:[id number]) Nasal for 25 Active Extra Depth Orthopedic Shoes (1 Pair) with Customized Heat Molded Multidensity Innersoles (3 Pair) as directed Dx: IDDM/Polyneuropathy (E10.42), Hammertoe Foot Deformity (M20.41,M20.42), Preulcerative Skin Lesion(s) (L85.1) 01/12/2023 Active Loratadine 10 MG (Prior Auth: Rx Ref#:[id number]) Oral for 90 Active Montelukast Sodium 10 MG (Prior Auth: Rx Ref#:[id number]) Oral for 30 Active oxyCODONE HCl 5 MG (Schedule II Drug) (Prior Auth: Rx Ref#:[id number]) Oral for 28 Active Pantoprazole Sodium 40 MG (Prior Auth: R x Ref#:[id number]) Oral for 30 Active Pravastatin Sodium 10 MG (Prior Auth: Rx Ref#:[id number]) Oral for 30 Active Aspirin Low Dose 81 MG (Prior Auth: Rx Ref#:[id number]) Oral for 90 Not-Taking Citracal + D [...] Problem Acquired hammer toe of right foot (2148836500309902 ) Other hammer toe(s) (acquired), right foot (M20.41) Active confirmed Problem Acquired hammer toe of left foot (1778208095194058 ) Other hammer toe(s) (acquired), left foot (M20.42) Active confirmed Problem Polyneuropathy due to diabetes mellitus type I (254203157) Type 1 diabetes mellitus with diabetic polyneuropathy (E10.42) Active confirmed Plan Of Treatment Pending Test Test Name Order Date X ray : Foot, left 3V 12/18/2018 X ray : Foot, right 3V 12/18/2018 63100-GFXNZGD NAIL, 6 OR MORE 11/10/2021 76544-HWCGOZJ NAIL, 6 OR MORE 01/12/2023 85924-HLDZ SKIN LESIONS, OVER 4 01/13/20 23 91975-HHIE SKIN LESIONS, OVER 4 11/11/19 22 91001-ZXAX SKIN LESIONS, OVER 4 09/19/19 19 25251-POYA SKIN LESIONS, OVER 4 12/19/19 19 23547-IHUN SKIN LESIONS, OVER 4 03/26/20 19 59848-BQYG SKIN LESIONS, OVER 4 09/09/19 21 56976-LZKE SKIN LESIONS, OVER 4 06/12/19 22 Insurance Providers Payer Name Payer Address Payer Phone Subscriber Number Group Number Insured Name Patient Relationship to Insured Coverage Start Date Coverage End Date [facility] [employer] Claims [address] [place] [phone] [facility] [id number] Leonie Corea Self - patient is the [...] History Reason Date(Month/Year) [facility]- check her heart [facility] for kidney stones 05/01
--- OUTSIDE RECORDS SUMMARY | 2024-08-09 16:57 | XMS_ITS | Clinical Summary ---
Author Organization [facility] Address [address] [place] [address] Care Team Providers Care Real Estate Office Supervisor Name Role Phone Massimo Mcclellan Primary Care Provider [phone] Source Comments PLEASE NOTE, if this patient [...] asthma, unspecified asthma severity, unspecified whether persistent ([facility]) Inhale 2 Puffs into the lungs every [...] nephropathy, with long-term current use of insulin ([facility]),Type 2 diabetes mellitus with diabetic peripheral angiopathy without gangrene, with long-term current use of insulin ([facility]) Use to test blood glucose three times daily. (Freestyle Lite) 100 Each 2023 Active lancets (FREESTYLE LANCETS) 28 gaugeIndications :Type 2 diabetes mellitus with diabetic nephropathy, with long-term current use of insulin ([facility]),Type 2 diabetes mellitus with diabetic peripheral angiopathy without gangrene, with long-term current use of insulin ([facility]) Use to test blood glucose three times daily. (Freestyle Lancets) 100 Each 11 2023 Active alcohol swabsIndications :Type 2 diabetes mellitus with diabetic nephropathy, with long-term current use of insulin ([facility]),Type 2 diabetes mellitus with diabetic peripheral angiopathy without gangrene, with long-term current use of insulin ([facility]) Use to test blood glucose three times daily. 100 Each 2023 Active LORazepam (ATIVAN) 0.5 mg tablet Take 1 Tablet by mouth 3 (three) times daily as needed for anxiety or sleep 90 Tablet 1 2023 Active acetaminophen (TYLENOL) 500 mg tabletIndication s:Other diabetic neurological complication associated with type 2 diabetes mellitus ([facility]),Fibrom yalgia,Osteoarth ritis, unspecified osteoarthritis type, unspecified site Take 2 Tablets by mouth every 6 (six) hours as needed for pain 60 Tablet 2 2023 Active glucagon (BAQSIMI) 3 mg/actuation spry PLACE 3 MG INTO THE NOSTRIL(S) EVERY MORNING 2 Each 2 2023 Active naloxone (NARCAN) 4 mg/actuation nasal spray Place 1 [place] into the nostril(s) as needed for opioid [...] 2023 Active triamcinolone (KENALOG) 0.025 % cream [facility]/pharmacy #[id number] [place], [place] [phone] 60 g 0 Days Supply: 10Sig: APLIQUE AL JACOBO AFECTADA TOPICALLY DOS VECES AL D A POR 10 D ASSource: 2 Outside SourcesAuthorized by: THO HERNANDEZ 2023 Active montelukast (SINGULAIR) 10 mg tablet Take 1 Tablet by mouth nightly at bedtime (Prescribed by greaser helper Dr. Berkowitz) 2023 Active ondansetron ODT (ZOFRAN-ODT) 4 mg [...] mouth 2 (two) times Daily (Prescribed by greaser helper - Dr. Michael Berkowitz) 2023 Active levocetirizine (XYZAL) 5 mg tablet Take 1 Tablet by mouth every evening [facility]/pharmacy #14 [place], [place] [phone] 90 Each 0 Days Supply: 90Sig: TAKE [...] gangrene, with long-term current use of insulin ([facility]) Inject 16 Units into the skin nightly at bedtime Increased dosing 9 mL 5 2024 Active glucose 4 gram chewable tabletIndication s:Type 2 diabetes mellitus with diabetic peripheral angiopathy without gangrene, with long-term current use of insulin ([facility]) Place 4 Tablets into mouth, chew and swallow as needed for low blood sugar (Less than 90 mg/dL) 30 Tablet 5 2024 Active insulin aspart (NOVOLOG FLEXPEN U-100 INSULIN) 100 unit/mL (3 mL)Indications:T ype 2 diabetes mellitus with diabetic peripheral angiopathy without gangrene, with long-term current use of insulin ([facility]) Inject 2-6 Units into the skin [...] gangrene, with long-term current use of insulin ([facility]),Mixed hyperlipidemia Take 1 Tablet by mouth nightly at bedtime stop pravastatin 10 mg 90 Tablet 1 2024 Active isosorbide mononitrate ER (IMDUR) 30 mg 24 hr tabletIndication s:Primary hypertension,Per ipheral venous insufficiency TOME GAGE TABLETA POR VIA ORAL CADA MANANA 90 Tablet 2 2024 Active oxyCODONE (ROXICODONE) 10 mg tab tabletIndication s:Sciatica, unspecified laterality,Osteo arthritis, unspecified osteoarthritis type, unspecified site,Fibromyalgi a,Peripheral venous insufficiency,Ce rvical pain (neck),Myofascia l muscle pain Take 1 Tablet by mouth every 6 to 8 (six to eight) hours as needed for pain 112 Tablet 2024 Active pen needle, diabetic 31 gauge x 16 ndleIndications: Type 2 diabetes mellitus with diabetic peripheral angiopathy without gangrene, with long-term current use of insulin ([facility]) Use to inject insulin up to 4 times daily. 200 Each 11 2024 Active busPIRone (BUSPAR) 15 mg tablet TAKE 1/3- 1/2 HALF TABLET IN THE MORNING AND IN P.M. NEEDED & 1 TAB AT AL ACOSTARSE 180 Tablet 2 2024 Active baclofen 5 mg tab TAKE 1 TABLET TWICE DAILY NEEDED FOR MUSCLE SPASMS 180 Tablet 1 2024 Active busPIRone (BUSPAR) 15 mg tablet TAKE 1/3- 1/2 HALF TABLET IN THE MORNING AND IN P.M. NEEDED & 1 TAB AT AL ACOSTARSE 180 Tablet 2 08/05 Discontinued( Reorder (E-Cancel Not Sent)) oxyCODONE (ROXICODONE) 10 mg tab tabletIndication s:Sciatica, unspecified laterality,Osteo arthritis, unspecified osteoarthritis type, unspecified site,Fibromyalgi a,Peripheral venous insufficiency,Ce rvical pain (neck),Myofascia l muscle pain Take 1 Tablet by mouth every 6 to 8 (six to eight) hours as needed for pain 56 Tablet 07/22 Discontinued( Reorder (E-Cancel Not Sent)) baclofen 5 mg tab Take one tablet twice daily as needed for muscle spasms 60 Tablet 1 07/22 Discontinued baclofen 5 mg tab TOME GAGE TABLETA POR VIA ORAL CADA SEIS A OCHO HORAS CUANDO SEA NECESARIO PARA ESPASMOS MUSCULARES 360 Tablet 1 08/05 Discontinued Active Problems Problem Noted Date Diagnosed Date Mixed stress and urge urinary incontinence 11/19 Food insecurity 10/25/2023 Hx laparoscopic cholecystectomy 08/08/2022 08/08/2022 H/O: hysterectomy 08/08/2022 08/08/2022 Arteriovenous malformation of large intestine 08/08/2022 Overview (08/08/2022): Colonoscopy July 2014: hyperplastic polyp and multiple nonbleeding AVM in the cecum and right colon Colonoscopy July 2014: hyperplastic polyp and multiple nonbleeding AVM in the cecum and right colon Cervical facet syndrome 08/08/2022 08/09/19 23 Diabetic peripheral angiopathy ([facility]CC-[facility]) 023 08/08/2022 Dry skin 08/08/2022 08/08/2022 Dysphagia 08/08/2022 08/08/2022 Incontinence of urine 08/08/2022 08/08/2022 Early onset Alzheimer's dementia (HCC-CMS) 08/0808/08/2022 Epigastric pain 08/08/2022 08/08/2022 Left ventricular hypertrophy 08/08/202204/2022 Overview (03/05/2024): 12/20/23 at [facility] Cardio Chest pain Improved with Imdur; [...] may be normal for the patient's age. bit tapper current use of anticoagulant therapy 0 08/08/2022 08/08/2022 Memory impairment 08/08/2022 08/08/2022 Myofascial muscle pain 08/08/2022 JENINFER (obstructive sleep apnea) 08/08/2022 Oxygen dependent 08/08/2022 08/08/2022 Restless leg syndrome 08/08/2022 08/08/2022 Subclinical hypothyroidism 08/08/202208/08 Unspecified cirrhosis of liver (HCC-CMS) 023 08/08/2022 Vascular dementia (HCC-CMS) 08/08/2022 05/0 04/2022 Cataract 11/07/2017 08/08/2022 Overview (08/08/2022): left catarct surgery on 08/28/08 by SURGEON: Tana Coronado M.D. left catarct surgery on 08/28/08 by SURGEON: Tana Coronado M.D. CKD (chronic kidney disease) stage 3, GFR 30-59 ml/min ([facility]) 11/07/2017 08/08/2022 Meniere disease 11/07/2017 08/08/2022 Overview (08/08/2022): 2016 Dr Baker Pulmonary hypertension ([facility]) 11/07/2017 08/08/2022 Overview (08/08/2022): b/l submassive PE diagnosed on Dec 20 in [facility] b/l submassive PE diagnosed on Dec 20 in [facility] 2016 DAVID RVSP- 46 Tubular adenoma of colon 11/07/2017 023 Overview (08/08/2022): 2005 Hyperparathyroidism ([facility]) 08/29/2017 Overview (08/08/2022): Right lower parathyroidectomy. 06/16/08 SURGEON: Danny Marie M.D. SKATESMAN: Naima Bowling M.D. Kidney stone 08/29/2017 08/08/2022 Hyperlipidemia LDL goal <70 08/29/2017 05/0 04/2022 Essential hypertension 08/29/2017 Seizure disorder ([facility]) 08/29/201708/08 Overview (08/08/2022): Not on medication Viral hepatitis C 08/29/2017 08/08/2022 Osteoarthrosis 08/23/2017 08/08/2022 Overview (08/08/2022): EGD on 06/24/16 by GI, Dr Damien caballero gastritis and esophageal varices grade 1 Lumbar spine Allergic rhinitis 08/23/2017 08/08/2022 Depression 08/23/2017 08/08/2022 Asthma-chronic obstructive p ulmonary disease overlap syndrome ([facility]) 08/23/2017 08/08/2022 Type 2 diabetes mellitus wit h diabetic peripheral angiopathy without gangrene, with long-term current use of insulin ([facility]) 08/23/2017 08/08/2022 Overview (07/24/2024): DM dx: 51 years old per patient reports Glucometer: Freestyle Lite (denies interest in CGM) Current Diabetes RX: Tresiba U-200 - inject 16 units daily at bedtime Insulin aspart - inject 2-6 units three times daily before meals (do not use if BG <100 mg/dL - max 18 units/day) MADDIE-I/ARB: Enalapril hyper K per patient reports Statin: atorvastatin 20 mg daily every evening Pneumococcal vaccine: PCV13 (05/12/14) PPSV23 (11/10/10, 05/20/04) Diabetes foot exam: 04/25/24 at [facility] - notes on file 02/21/24 at [facility] - notes on file Diabetes retinal [...] new glasses RX, optional F/U 1 year [facility] Endocrinology: 11/24/22 Start Tradjenta 5 mg [...] valve insufficiency 05/24/2017 Overview (03/05/2024): 12/20/23 at [facility] Cardio Chest pain Improved with Imdur; [...] dysfunction 05/24/2017 08/08/2022 Overview (03/05/2024): 12/20/23 at [facility] Cardio Chest pain Improved with Imdur; [...] normal for the patient's age. Esophageal varices ([facility]) 06/24/201604/2022 Overview (08/08/2022): endoscopy 10/05/2018 w non bleeding grade 1 esophageal varicesEGD on 06/24/[address] Damien CARUSO gastritis and esophageal varices grade 1 06/2106 EGD, Grade 1 endoscopy 10/05/2018 w non bleeding grade 1 esophageal varicesEGD on 06/24/[address] Damien CARUSO gastritis and esophageal varices grade 1 Right ventricular dilation 12/22/201508/08 Overview (08/08/2022): TTE 12/22/15 in [facility]: RV dilatation, RVSP 46 TTE 12/22/15 in [facility]: RV dilatation, RVSP 46 Anemia 12/21/2015 08/08/2022 Deep vein thrombosis (DVT) ([facility]) 12/21/2015 08/08/2022 Overview (08/08/2022): LE US- DVT involving 2 of 2 peroneal veins diagnosed on Dec 20 [facility] LE US- DVT involving 2 of 2 peroneal veins diagnosed on Dec 20 [facility] Positive PPD 10/09/2014 08/08/2022 Overview (08/08/2022): Never [...] Peripheral venous insufficiency 10/31/2011 08/08/2022 Diabetic neuropathy ([facility]) 09/19/2007 Sciatica 05/24/2004 08/08/2022 Tubular adenoma 04/10/2004 08/08/2022 Overview (08/08/2022): catherine colo July 2009 exc for 2 hyperplastic polypsColonoscopy 2004 at [facility] [place] per letter of Dr Amor Dobbins Tubular adenoma 04/10/2004 08/08/2022 Overview (08/08/2022): actherine colo July 2009 exc for 2 hyperplastic polypsColonoscopy 2004 at [facility] [place] per letter of Dr Amor Dobbins Resolved Problems Problem Noted Date Diagnosed Date Resolved Date Obesity 08/08/2022 08/08/2022 07/24/2024 Encounters Date Type Department Care Team Description 07/24/2024 3:40 PM EDT Telemedicine Visit [facility] [address] [place] [address] Darwin Encinas, PharmD Type 2 diabetes mellitus with diabetic peripheral angiopathy without gangrene, with long-term current use of insulin ([facility]) (Primary Dx); Essential hypertension; Hyperlipidemia LDL goal <70 06/06/2024 3:20 PM EST Telemedicine Visit [facility] [address] [place] [address] Mark Morales NP Cervical pain (neck) (Primary Dx); Fibromyalgia from Last 3 Months Immunizations Immunization Administration [...] CONJUGATE PCV 13 05/12/2014 PNEUMOCOCCAL POLYSACCHARIDE PPV23 (Pneumovax 23) 11/10/2010,05/20/2004 Pfizer COVID-19 (Comirnaty), Mrna, Lnp-s, Pf, Uziel-sucrose, [...] 05/06/2024 3:36 PM EST Plan of Treatment Health Maintenance Due Date Last Done Comments [...] Td or Tdap) 05/12/2024 05/12/2014, 11/10/2010, 11/10/2010 [id number] ( season) 2024 12/27/2023, 02/14/2023, 05/25/2022, Additional [...] Screening Completed 11/22/2022 Imm-Influenza Completed 12/27/2023, 04/11, 02/04/2023, Additional history exists Retinopathy Screening Discontinued 04/24/2024, 025 Alcohol and Drug Screen Completed 05/06/19, 05/08/2023, 05/08/2023, Additional history exists Procedures Procedure Name Priority Date/Time Associated Diagnosis Comments REFERRAL SCANNED DOCUMENT 07/24/2024 3:00 AM EDT REFERRAL SCANNED DOCUMENT 07/19/2024 3:00 AM EDT OTHER ORDERS SCANNED DOCUMENT 07/01/2024 3:00 AM EDT REFERRAL SCANNED DOCUMENT 06/19/2024 3:00 AM EDT HEMOGLOBIN GLYCOSYLATED A1C Routine 04/24/2024 1:09 PM EST Type 2 diabetes mellitus with diabetic peripheral angiopathy without gangrene, with long-term current use of insulin ([facility]) EYE EXAM 04/24/2024 3:00 AM EST TSH W/RFLX FREE T4 Routine 10/25/2023 11 :27 AM EDT Hyperparathyroidism ([facility]) Prediabetes COMPREHENSIVE METABOLIC PANEL Routine 10/25/2023 11:27 AM EDT Cirrhosis of liver without ascites, unspecified hepatic cirrhosis type ([facility]) Hyperparathyroidism ([facility]) Type 2 diabetes mellitus with diabetic peripheral angiopathy without gangrene, with long-term current use of insulin ([facility]) Diabetic mononeuropathy associated with type 2 diabetes mellitus ([facility]) Hepatitis C virus infection without hepatic coma, unspecified chronicity Resistant hypertension MICROALBUMIN/CREATINI NE RATIO, URINE, RANDOM Routine 07/26/2023 2:42 PM EDT Type 2 diabetes mellitus with diabetic nephropathy, with long-term current use of insulin ([facility]) LIPID PANEL Routine 05/08/2023 3:04 PM EST Hypercholesterolemia HISTORIC DEXA SCAN 11/22/2022 3: 00 AM EDT US ABDOMEN ULTRASOUND Routine 10/21/2022 3:00 AM EDT Abdominal pain, unspecified abdominal location UPPER GI ENDOSCOPY Routine 08/08/2022 11 :41 AM EDT Varices of esophagus determined by endoscopy ([facility]) from Last 3 Months or Most Recently Relevant to Health Maintenance Results * REFERRAL SCANNED DOCUMENT (07/24/2024 3:00 AM EDT) Only the most recent of3 resultswithin the time period is included. 07/24/2024 3:00 AM EDT Massimo Eleuterio PA SCAN REFERRAL Final Result * OTHER ORDERS SCANNED DOCUMENT (07/01/2024 3:00 AM EDT) 07/01/2024 3:00 AM EDT us Massimo Eleuterio PA SCAN OTHER ORDERS Final Result * (ABNORMAL) HEMOGLOBIN GLYCOSYLATED A1C (04/24/2024 1:09 PM EST) HEMOGLOBIN A1C 8.7(H) <5.7 % of total Hgb [facility] Comment: For someone without known diabetes, a [...] PM EST 04/24/2024 1:09 PM EST Narrative [email or web address] - 04/25/2024 3:26 AM EST FASTING:NO Darwin Encinas PharmD LAB - BLOOD DRAW Final Re sult Performing Organization Address City/[facility]/ZIP Co de Phone Number [facility] [address] [address], [facility] [address] [address] * EYE EXAM (04/24/2024 3:00 AM EST) 04/24/2024 3:00 AM EST Massimo PACHECO OTHER Edited Result - Final * TSH W/RFLX FREE T4 (10/25/2023 11:27 AM EDT) TSH W/REFLEX TO FT4 2.80 0.40 - 4.50 mIU/L [facility] Blood Blood / Unknown 10/25/2023 1 1:27 AM EDT 10/25/2023 11:27 AM EDT Massimo PACHECO LAB - BLOOD DRAW Final Result Performing Organization Address [facility]/ZIP Co de Phone Number [facility] [address] [address], [facility] [address] [phone] * (ABNORMAL) COMPREHENSIVE METABOLIC PANEL (10/25/2023 11:27 AM EDT) GLUCOSE 118(H) 65 - 99 mg/dL [facility] Comment: ?Fasting reference interval For someone without known diabetes, a glucose value between 100 and 125 mg/dL is consistent with prediabetes and should be confirmed with a follow-up test. UREA NITROGEN (BUN) 16 7 - 25 mg/dL [facility] CREATININE (blood) 0.85 0.60 - 1.00 mg/dL [facility] EGFR 70 > OR = 60 mL/min/1. 73m2 [facility] BUN/CREATININE RATIO SEE NOTE: [facility] Comment: ?? Not Reported: BUN and Creatinine are within ?? reference range. ? SODIUM 142 135 - 146 mmol/L [facility] POTASSIUM 4.8 3.5 - 5.3 mmol/L [facility] CHLORIDE 104 98 - 110 mmol/L [facility] CARBON DIOXIDE 29 20 - 32 mmol/L [facility] [employer] CALCIUM 9.5 8.6 - 10.4 mg/dL [facility] PROTEIN, TOTAL 7.0 6.1 - 8.1 g/dL [facility] [employer] ALBUMIN 4.3 3.6 - 5.1 g/dL [facility] GLOBULIN 2.7 1.9 - 3.7 g/dL (calc) [facility] ALBUMIN/GLOBULI N RATIO 1.6 1.0 - 2.5 (calc) [facility] BILIRUBIN, TOTAL 0.5 0.2 - 1.2 mg/dL [facility] ALKALINE PHOSPHATASE 87 37 - 153 U/L [facility] AST 16 10 - 35 U/L [facility] ALT 10 6 - 29 U/L [facility] Blood Blood / Unknown 10/25/2023 1 1:27 AM EDT 10/25/2023 11:27 AM EDT Massimo PACHECO LAB - BLOOD DRAW Final Result [email or web address] [address] [address], [employer] [address] [place] [address] * MICROALBUMIN/CREATININE RATIO, URINE, RANDOM (07/26/2023 2:42 PM EDT) CREATININE, RANDOM URINE 140 20 - 275 mg/dL [facility] MICROALBUMIN 1.2 mg/dL [email or web address] [facility] Comment: Reference Range Not established MICROALBUMIN/CREA TININE RATIO, RANDOM URINE 9 <30 mg/g creat [facility] Comment: The ADA defines abnormalities [...] - NO BLOOD DRAW Final R esult [facility] [address] [place] [address], [facility] [address] [place] [phone] * (ABNORMAL) LIPID PANEL (05/08/2023 3:04 PM EST) CHOLESTEROL, TOTAL 197 <200 mg/dL [facility] HDL CHOLESTEROL 61 > OR = 50 mg/dL [facility] TRIGLYCERIDES 317(H) <150 mg/dL [facility] Comment: If a non-fasting specimen was collected, consider repeat triglyceride testing on a fasting specimen if clinically indicated. Lexi et al. J. of Clin. Lipidol. 2015;9:129-169. LDL-CHOLESTEROL 94 99 mg/dL (calc) [facility] Comment: Reference range: <100 Desirable range <100 mg/dL for primary prevention; ?? <70 mg/dL for patients with CHD or diabetic patients with > or = 2 CHD risk factors. LDL-C is now calculated using the Gilles-Olga calculation, which is a validated novel method providing better accuracy than the Friedewald equation in the estimation of LDL-C. Gilles SS et al. JESUS. 2013;310(19): 7676-2789 (http://education.Kopo Kopo/faq/MMO948) CHOL/HDLC RATIO 3.2 <5.0 (calc) [facility] NON-HDL CHOLESTEROL 136(H) <130 mg/dL (calc) [facility] Comment: For patients with diabetes plus 1 major ASCVD risk factor, treating to a non-HDL-C goal of <100 mg/dL (LDL-C of <70 mg/dL) is considered a therapeutic option. Blood Blood / Unknown 05/08/2023 3 :04 PM EST 05/08/2023 3:05 PM EST us Massimo PACHECO LAB - BLOOD DRAW Final Result [facility] [address] [address], [place] [facility] [address] [place] [address] * HISTORIC DEXA SCAN (11/22/2022 3:00 AM EDT) 11/22/2022 3:00 AM EDT us Massimo PACHECO IMG DXA Final Result * US ABDOMEN ULTRASOUND (CAPE COD) (10/21/2022 3:00 AM EDT) 10/21/2022 3:00 AM EDT us Massimo PACHECO IMG ULTRASOUND Edited Result - Final from Last 3 Months or Most Recently Relevant to Health Maintenance Insurance [facility] Member Subscriber Plan / Payer ( fective 2017-Present) Name:Leonie Corea Relation to Subscriber:Self Name:Leonie Corea Payer ID:[id number] Group ID:Not on file Type:Medicare Address: [address] Member Subscriber Plan / Payer (Ef fective 2012-Present) Name:Leonie Corea Relation to Subscriber:Self Name:Leonie Corea Payer ID:[id number] Group ID:Not on file Type:Indemnity Address: [place] [address] [place] [address] Care Teams Real Estate Office Supervisor Relationship Specialty Start Date End Date Massimo Mcclellan PA [address] [place] [address] PCP - General [facility] 05/13/22
--- OUTSIDE RECORDS SUMMARY | 2024-08-09 16:57 | XMS_ITS ---
Author Organization [facility] Address [address] [place] [phone] Care Team Providers Care Screen Tacker Name Role Phone RICKY GARZA, DAISY Primary Care Provider Unavailable Amor Dobbins Jr Unavailable REASON FOR VISIT no show Encounters Encounter Location Date Provider Diagnosis [facility] [address] [place] [phone] 09/18/2023 Amor Dobbins Jr Plan Of Treatment No Information Progress Notes * TOMMY CHOU EDOB:1945 (78 yo F)Acc No.[id number]:09/18/2023 Patient:?TOMMY CHOU :1945???Age:78 Y???Sex:Female Address:[address] [place] [address], [place] [address] * true * Date:? Generated for Printi juvenal/Benjie/eTransmitting on:?08/09/2024 04:57 PM EDT
--- OUTSIDE RECORDS SUMMARY | 2024-08-09 16:57 | XMS_ITS | Clinical Summary ---
Author Organization [facility] Address [address] [place] [address] Care Team Providers Care Casino Change Attendant Name Role Phone Massimo Mcclellan PA-C Primary Care Provider Lisa iljason Allergies Active Allergy Reactions Severity Noted Date Comments Lidoderm Hives/Urticaria,Rash/Dermatitis 07/09 Morphine Itching/Pruritus 11/07/2017 Penicillins Hives/Urticaria,Rash/Dermatitis 02/2018 Medications Medication Sig Dispensed Refills Start Date End Date Status sucralfate (CARAFATE) 1 G tablet Take 1 g by mouth daily. 0 Active loratadine (CLARITIN) 10 MG tablet Take 10 mg by mouth daily. 0 Active metformin (GLUCOPHAGE) 500 MG tablet Take 500 mg by mouth 2 times daily (with meals). 0 Active montelukast (SINGULAIR) 10 MG tablet Take 10 mg by mouth at bedtime. 0 Active oxycodone (ROXICODONE) 5 MG immediate release tablet Take 5 mg by mouth every 4 hours as needed. 0 Active pantoprazole (PROTONIX) 40 MG tablet Take 40 mg by mouth daily. 0 Active acetaminophen (TYLENOL) 500 MG tablet Take 500 mg by mouth every 6 hours as needed. 0 Active Aspirin (ASPIR-81 OR) Take 1 Tab by mouth daily. 0 Active Calcium Citrate-Vitamin D (CALCIUM + D OR) Take by mouth. 0 Acti ve Capsaicin 0.025 % Gel Apply topically. 0 Active Vitamin D, Cholecalciferol, 1000 UNITS Cap Take by mouth. 0 Active duloxetine (CYMBALTA) 30 MG capsule Take 30 mg by mouth daily. 0 Active enalapril (VASOTEC) 10 MG tablet Take 10 mg by mouth daily. 0 Active Flunisolide 25 MCG/ACT (0.025%) Solution by Nasal route. 0 Active Fluticasone Furoate 200 MCG/ACT AEROSOL POWDER,BREATH ACTIVATED Inhale 1 Puff into the lungs daily. 0 Active gabapentin (NEURONTIN) 400 MG capsule Take 400 mg by mouth 3 times daily. 2 caps 0 Active ketotifen 0.025 % ophthalmic solution 1 Drop 3 times daily. 0 Active albuterol (PROVENTIL) (2.5 MG/3ML) 0.083% nebulizer solution Take 1 Vial by nebulization every 4 hours as needed for Wheezing for up to 30 days. 50 Vial 11 09/21/2017 Active Mix equal parts:MAALOX SUSP/LIDOCAINE VISCOUS 2 % MT SOLN/BENADRYL 12.5MG/5ML Swish and spit 10 mL every 4 hours as needed for Pain for up to 14 days. Please mix the following in equal parts: MAALOX REGULAR STRENGTH 225-200-25 MG/5ML OR SUSP- 30cc LIDOCAINE VISCOUS 2 % MT SOLN - 30cc BENADRYL 12.5 MG/5ML OR ELIX - 30cc 90 mL 2 11/03/2017 Active Active Problems Problem Noted Date Cataract 11/07/2017 Type 2 diabetes mellitus with cataract 0 11/07/2017 Esophageal varices 11/07/2017 Overview: 06/2106 EGD, Grade 1 Tubular adenoma of colon 11/07/2017 Overview: 2004 Osteopenia 11/07/2017 Pulmonary hypertension 11/07/2017 Overview: 2015 DAVID RVSP- 46 CKD (chronic kidney disease) stage 3, GF R 30-59 ml/min 11/07/2017 Meniere disease 11/07/2017 Overview: 2015 Dr Baker Hepatitis C 08/29/2017 Seizure disorder 08/29/2017 Overview: Not on medication 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 Overview: Never treated Hypertension 08/29/2017 Hyperlipidemia 08/29/2017 Fibromyalgia 08/29/2017 Hyperparathyroidism 08/29/2017 Kidney stone 08/29/2017 Allergic rhinitis 08/23/2017 GERD (gastroesophageal reflux disease) 0 08/23/2017 Asthma 08/23/2017 Anxiety 08/23/2017 Depression 08/23/2017 Osteoarthritis 08/23/2017 Overview: Lumbar spine DM (diabetes mellitus), type 2 with scott l complications 08/23/2017 Insomnia 08/23/2017 History of pulmonary embolism 07/19/2017 Overview: Bilateral, 12/2015, [facility] History of DVT (deep vein thrombosis) Overview: 12/2015, involving 2 of 2 peroneal veins, [facility] Immunizations Name Administration Dates Next Due Pneumoccoccal(Adult) Polysaccharide PPSV23 11/10,05/20/2004 Pneumococcal Conjugate PCV-13 05/12/2014 TD (STATE SUPPLIED FOR ADULTS AND CHILDREN) 08/06/2010 Tdap 05/12/2014 Zostavax 10/16/2012 Family History Medical History Relation Name Comments dvt Aunt and pulmonary e mbolus Asthma Brother Asthma Daughter Diabetes, Depre ssion/Anxiety Cancer of the Lung Mother dvt Other cousin; also pu lmonary embolus Diabetes Son Depression/Anxi ety Relation Name Status Comments Aunt Brother Daughter Mother Other Son Social History Tobacco Use Types Packs/Day Years Used Date Smoking Tobacco: Never Cigarettes Smokeless Tobacco: Never Alcohol Use Standard Drinks/Week Comments No 0 (1 standard drink = 0.6 oz pur e alcohol) Sex Assigned at Date Recorded Not on file Last Filed Vital Signs Vital Sign Reading Time Taken Comments Blood Pressure 120/70 09/21/2017 11:11 AM EDT Pulse 85 09/21/2017 11:11 AM EDT Temperature - - Respiratory Rate - - Oxygen Saturation 95% 09/21/2017 11:11 AM EDT r/a Inhaled Oxygen Concentration - - Weight 93 kg (205 lb) 09/21/2017 11:11 AM EDT Height 154.9 cm (5' 1 ) 09/21/2017 11:11 AM EDT Body Mass Index 38.73 09/21/2017 11:11 AM EDT Plan of Treatment Health Maintenance Due Date Last Done Comments DIABETES/HEART DISEASE: OTONIEL NORRIS CHOLESTEROL (LDL) 1963 DIABETES: ANNUAL EYE EXAM 1963 DIABETES: ANNUAL FOOT EXAM 1963 DIABETES: ANNUAL URINE PROTE IN TEST (MICROALBUMIN) 1962 DIABETES: BLOOD SUGAR CONTRO L TEST (HGBA1C) 1962 MAMMOGRAM 1984 SHINGLES VACCINE (2 of 3) 12/11/2012 10/16/2012 BONE DENSITY SCREENING 10/25/2017 6 (External Completion) Covid-19 Vaccine ( - season) 2023 BMI CHECK/ADVISE 04/10/2024 09/21/2017, 07/19/2017 DTAP/TDAP/TD (2 - Td or Tdap) 05/12/2024 05/12/2014, 11/10/2010 INFLUENZA (Season Ended) 2024 PNEUMOCOCCAL VACCINE Completed 05/12/2014, 11/10/2010, 05/20/2004 Care Teams Casino Change Attendant Relationship Specialty Start Date End Date Massimo Mcclellan PA-C PCP - General Internal Medicine 11/24/23
== END 2024-08-09 16:54 | disposition home or self-care (01) ==
LOC: HO.MRI 16:53
PROVIDERS: PCP Physician Assistant; Visit Provider Internal Medicine
DX: G95.9 Disease of spinal cord, unspecified (principal); M54.2 Cervicalgia; M54.12 Radiculopathy, cervical region
CPT/HCPCS: 72141

== ENCOUNTER → 2024-08-09 16:58 | Outpatient (BNV) | payer OTHER, SELFPAY | PROVIDERS: PCP Physician Assistant; Visit Provider Radiology Diagnostic Radiology | DX: M95.9 Acquired deformity of musculoskeletal system, unspecified (principal) | CPT/HCPCS: 72141 ==

== ENCOUNTER 2024-08-19 11:06 | Outpatient (AMB) | payer OTHER, SELFPAY ==
--- NOTE | 2024-08-19 11:44 | A.OFFVIS_ITS ---
Vital Signs 08/19/24 11:45 Height 5 ft 3 in Weight 147 lb BMI 26.0 BP 122/66 Blood Pressure Location Lt brachial Position Sitting Respiration 16 Pulse 73 Pulse Source Pulse Oximeter Pulse Oximetry (%) 97 Oxygen Delivery Method Room Air Intake Visit Reasons: Discuss MRI Results Metal Numerical Control Programmer Required: Yes Metal Numerical Control Programmer Services: Metal Numerical Control Programmer Offered & Declined Metal Numerical Control Programmer Name: Prefers daughter to translate Allergies bee pollen [bee stings] Allergy (Severe, Verified 08/26/24 11:51) Anaphylaxis lidocaine [From LIDODERM] Allergy (Severe, Verified 08/26/24 11:51) BLISTERS from adhesive morphine [MORPHINE] Allergy (Severe, Verified 08/26/24 11:51) PO will cause itching, can tolerate IV Penicillins [PENICILLINS] Allergy (Severe, Verified 08/26/24 11:51) SWELLING/ITCHING gabapentin [GABAPENTIN] Allergy (Intermediate, Verified 08/26/24 11:51) SORES IN MOUTH- AGITATION enalapril Adverse Reaction (Severe, Verified 08/26/24 11:51) hyperkalemia Ampicillin Allergy (Intermediate, Uncoded 08/19/24 11:46) Rash and Hives Medication List - Last Reconciled 08/19/24 by Nancy Chavez LPN acetaminophen ER 650 mg PO TID PRN albuterol sulfate 90 mcg/actuation 2 inhalations inhalation Q6H PRN 30 days amlodipine 10 mg PO DAILY apixaban 5 mg PO BID 30 days atorvastatin 20 mg PO BEDTIME PRN baclofen 5 mg PO TID buspirone 15 mg PO BID escitalopram oxalate 20 mg PO DAILY esomeprazole magnesium 40 mg PO DAILY famotidine 40 mg PO BEDTIME ferrous sulfate 325 mg PO DAILY glucose 4 grams PO TID PRN insulin aspart U-100 2 - 6 units subcut TID insulin degludec 12 units subcut BEDTIME isosorbide mononitrate ER 30 mg PO DAILY levocetirizine 5 mg PO BEDTIME PRN lorazepam 0.5 mg PO DAILY PRN ondansetron 4 mg PO DAILY PRN oxycodone 5 mg PO Q6H PRN sennosides 8.6 mg PO BEDTIME PRN Trelegy Ellipta 100-62.5-25 mcg ([id number]) 1 inh inhalation DAILY NS venlafaxine mg PO HPI HPI Discuss MRI Results: Details: History of Present Illness The patient is an 79-year-old female presenting with cervical spinal stenosis and surgical consultation. She has significant spinal stenosis at the C4-5 level associated with neuropathy and reported balance disturbances, including recent falls, indicating possible myelopathy. Her condition has been further complicated by previous surgical intervention at C3-4, which now exacerbates the issues at C4-5 and C5-6. The patient expressed an understanding of her condition's progression, with the need for surgical discussion and intervention highlighted due to her significant symptoms and falls risk. Pain Description - Onset and Timing: The pain and neurological symptoms have progressively worsened, leading to falls and imbalance. - Quality and Character: Described as neuropathic pain with potential myelopathy, causing balance disturbances. - Primary Location: Cervical spine, specifically at the C4-5 and possibly C5-6 levels. - Exacerbating Factors: Worsened by previous surgical correction at C3-4 and progressive stenosis at C4-5 and C5-6. - Relieving Factors: Surgical intervention discussed as potential relief for preventing further deterioration. - Functional Interference: Results in imbalance, falls, and potential for worsening neurological symptoms without intervention. Physical Exam - Appears afebrile. - Alert and oriented. - Mood and affect appropriate. - Follows and participates in conversation appropriately. - Respiratory effort is unlabored. Results - MRI: Significant spinal stenosis at C4-5 with associated neuropathy and potential severe spinal stenosis at C5-6. Pain Management - Affect: The pain and neuropathy are contributing to balance disturbances and falls, impacting her daily function. - Analgesia: Oxycodone was prescribed, but the patient has run out and is seeking a refill. - Adverse Effects: No specific adverse effects from the previous medication noted, but continuity of medication is a concern. - Activities of Daily Living: The patient's daily life and mobility are signifi cantly affected by the risk of falls and balance issues. - Aberrant Drug Related Behaviors: There is a request for a refill, and concerns about medication supply and doctor availability were noted. [facility] Medical History Seizure disorder Seizure disorder Sciatica Right ventricular dilation Pulmonary HTN Insomnia Positive PPD, treated Myofascial muscle pain Meniere disease Memory impairment care home current use of anticoagulant therapy Left ventricular hypertrophy HTN (hypertension) Hyperlipidemia Hx pulmonary embolism Epigastric pain Early onset Alzheimer dementia Incontinence of urine Dysphasia Diastolic dysfunction Type 2 diabetes mellitus with diabetic peripheral angiopathy without gangrene, with long-term current use of insulin Hx of deep venous thrombosis CKD (chronic kidney disease) stage 3, GFR 30-59 ml/min Cervical facet syndrome Cataract Kidney stone Calcium oxalate crystals present in urine Asthma-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 Depression Anemia Allergic rhinitis Hyperparathyroidism Osteoarthritis Fibromyalgia Hx of renal calculi Hx of seizure disorder Diabetes Cirrhosis GERD (gastroesophageal reflux disease) Nausea Dementia Anxiety RLS (restless legs syndrome) Peripheral venous insufficiency Osteopenia Esophageal varices Gastritis Mitral regurgitation Tricuspid regurgitation Hx of hepatitis C (~2008) Chronic anticoagulation Back pain AVM (arteriovenous malformation) of colon History of anemia Leg pain Chest pain Pleuritis JENNIFER (obstructive sleep apnea) Abnormal chest x-ray Pneumonia COVID-19 (~12/2019) Pulmonary emboli COPD (chronic obstructive pulmonary disease) Surgical History Hx of lithotripsy Hx of colonoscopy (12/11/19) History of esophagogastroduodenoscopy (EGD) (12/11/19) Hx of hysterectomy (~1974) Hx of parathyroidectomy (~2008) Hx of cholecystectomy (~1975) Hx of cataract extraction Social History Are you a primary anesthesiologist and critical care to a significant other at home: No Do you presently have visiting nurse or other home services: Yes ([employer] REPRESENTATIVE [employer] ASSESSOR 47 hours a week) Patient Tobacco Use Status: Never used Tobacco Physical Exam Vital Signs: Last Vital Signs Pulse 73 08/19/24 11:45 Resp 16 08/19/24 11:45 BP 122/66 08/19/24 11:45 Pulse Ox 97 08/19/24 11:45 Oxygen Delivery Method Room Air 08/19/24 11:45 BMI result Body Mass Index 26.0 Assessment & Plan Assessment & Plan (1) S/P cervical spinal fusion: Code(s): Z98.1 - Arthrodesis status Category: Surgical (2) Cervical myelopathy: Code(s): G95.9 - Disease of spinal cord, unspecified Category: Medical (3) Cervical radiculopathy: Code(s): M54.12 - Radiculopathy, cervical region Category: Medical Plan Plan - Recommend surgical intervention at C4-5 and C5-6 for decompression and fusion to alleviate current pain and prevent further neurological compromise. - Instruct the patient to arrange an appointment with a surgeon for consultation. - Collaborate with the PCP for medication management oxycodone), ensuring availability and appropriate use. - Discuss surgical risks and benefits to address current symptoms and prevent future declines. - Implement follow-up and monitoring post-surgical intervention focusing on reducing fall risks. Patient was informed and verbally consented to the use of an ambient scribe for clinic note documentation during this visit. Discussion Notes I discussed with the patient the findings of significant spinal stenosis at C4-5 with associated neuropathy and potential severe spinal stenosis at C5-6. I explained the possibility of myelopathy given recent balance issues and falls. The patient was informed about the need for surgical intervention to prevent further deterioration of her condition. We discussed the specific surgical procedure of decompression and fusion, explaining the risks, benefits, and pr eventative objectives. I also addressed the patient's medication management, advising her to contact her PCP regarding oxycodone refill. The importance of follow-up and post-operative monitoring for fall risk was emphasized. Patient Instructions - Make an appointment with the spinal surgeon for consultation regarding decompression and fusion surgery. - Contact your primary care physician for further medication management. - Monitor for any increase in balance issues or new symptoms, and seek attention if necessary. - Be cautious of fall risks and maintain safety awareness in daily activities. Coding Level of Care Code Est Pt Level 4 (19192) Diagnoses S/P cervical spinal fusion Z98.1 Cervical myelopathy G95.9 Cervical radiculopathy M54.12
[2024-08-19 11:45] VITALS: BP 122/66; PULSE 73; RESP 16; O2SAT 97; BMI 26.0
--- OUTSIDE RECORDS SUMMARY | 2024-08-19 11:52 | XMS_ITS ---
Author Organization [facility] Address [address] [place] [address] Care Team Providers Care Therapeutic Strategy Lead Name Role Phone RICKY GARZA, DAISY Primary Care Provider Unavailable Amor Dobbins Jr REASON FOR VISIT cancel appt Encounters Encounter Location Date Provider Diagnosis [facility] [address] [place] [address] 01/15/2024 Amor Dobbins Jr Plan Of Treatment No Information Progress Notes * TOMMY CHOU EDOB:1945 (78 yo F)Acc No.[id number]:01/15/2024 Patient:?TOMMY CHOU :1945???Age:78 Y???Sex:Female Address:[address] [place] [address], [place] [address] * true * Date:? Generated for Printi ng/Famatildeg/eTransmitting on:?08/19/2024 11:51 AM EDT
--- OUTSIDE RECORDS SUMMARY | 2024-08-19 11:52 | XMS_ITS | Data Portability ---
Author Organization [employer] [place] - [employer] Address [address] [place] [id number] Care Team Providers Care Qa Test Lead Name Role Phone MARCIUNIQUEFELY Primary Care Provider HIM CCA OTHER Assessment Encounter Date Assessment Date Assessment LastModified by Organization Details LastModified Time 02/29/2024 02/29/2024 Evaluation in the field was performed by my other spatial scientist colleague, as noted above, I provided real-time [...] Assessment and Plan as documented by the Erp Analyst. Patient given the opportunity to ask questions. Our service contacted for an assessment of: Urinary frequency As per above, patient with approximately several days of urinary frequency. Denies dysuria, abdominal pain, suprapubic pain, flank pain, fever, chills. Does have diabetes and sugars have been running high. Does not specifically endorse polydipsia. No history of frequent urinary tract infections Per other spatial scientist on the scene, vital signs are stable [...] recorded. Lab urinalysis, dipstick 2023 [facility], [address] [place] [address], [id number] 4 19:24:48 culture, urine 2023 [facility] (Centralized Electronic Ordering - All Locations), Patient Can Go To The Location Of Their Choice, [id number] 5 20:05:30 urinalysis, dipstick 2023 [facility], [address] [place] [address], [id number] 4 18:47:22 culture, urine 2023 [facility] (Centralized Electronic Ordering - All Locations), Patient Can Go To The Location Of Their Choice, [id number] 4 22:06:00 Referral None recorded. Procedures None recorded. Surgeries None recorded. Imaging None recorded. Medication Orders cefuroxime axetil 500 mg tablet 2023 [facility] #[id number], [address] [place], [address], 17:49:37 Patient TargetsNo targets recorded. Patient InstructionsNo instructions recorded. Reason for Referral None Reported. Results Created Date Observation Date Name Description Value Unit Range Abnormal Flag Note LastModifiedBy Organization Detail LastModifiedTime 02/29/20 24 03/01/2024 URINE CULTU RE, ROUTI NE urine culture, routine Final report Not Available [facility] ([facility]) [address] [place], [address], 03/01/2024 22:06:00 02/29/20 24 03/01/2024 URINE CULTU RE, ROUTI NE result 1 No growth Not Available [facility] ([facility]) [address] [place], [address], 03/01/2024 22:06:00 04/09/20 24 04/10/2024 URINE CULTU RE, ROUTI NE urine culture, routine Final report Not Available [facility] ([facility]) [address] [facility], [place], [address], 04/10/2024 20:05:30 04/09/20 24 04/10/2024 URINE CULTU RE, ROUTI NE result 1 No growth Not Available [facility] ([facility]) [address] [place], [address], 04/10/2024 20:05:30 Result Notes None recorded. Medical Equipment None Reported. Allergies Allergen ID Allergen Name Allergen Category Reaction Reaction Severity Criticality Documentation Date Start Date Code Code System Note Provider Name and Address Organization Details Recorded Time 19588 enalapril Not available Not available Not available Not available 02/29/2024 3827 RxNorm Not Available [facility] - production 11:30:38 9685 Product containin g penicilli n (product) medicatio n Not available Not available Not available 02/06/2024 50548 8001 SNOMED Not Available [facility] - production 04:14:41 9686 lidocaine medicatio n Not available Not available Not available 02/06/2024 6387 RxNorm Not Available [facility] - production 4 04:14:41 9687 morphine medicatio n Not available Not available Not available 02/06/2024 7052 RxNorm Not Available [facility] 4 04:14:41 Medications Name Sig Start [...] Not Available No t Available Dexcom G7 Automotive Vehicle Inspector USE TO TEST BLOOD GLUCOSE CONTINUOUSL Y (DEXCOM G7 INTERNATIONAL MANAGER) active Not Available Not Available No t [...] /min 113 mm[Hg] 74 mm[Hg] Not Available [employer] - 4 13:36:27 Date Recorded Oxygen saturation Oxygen saturation in Arterial blood by Pulse oximetry Body height Heart rate Respiratory rate Body temperature Body weight Systolic blood pressure Diastolic blood pressure Provider Name and Address Organization Details Last Updated DateTime 4 98 % 98 % 160.02 cm 67 /min 16 /min 98.3 [degF] 31475.6 16 g 117 mm[Hg] 61 mm[Hg] Not Available [facility] - for[MD] 4 17:46:27 Date Recorded Body temperature Body weight Body height Heart rate Oxygen saturation Oxygen saturation in Arterial blood by Pulse oximetry Respiratory rate Systolic blood pressure Diastolic blood pressure Provider Name and Address Organization Details Last Updated DateTime 4 98.7 [degF] 39985.9 84 g 160.02 cm 80 /min 99 % 99 % 18 /min 117 mm[Hg] 67 mm[Hg] Not Available [employer] 4 17:07:34 Social History None recorded. Functional Status None recorded. Mental Status None recorded. Family History Nothing Reported. Medical History No medical history recorded. Gynecological HistoryNo gynecological history recorded. Obstetrics History GPAL:G 0 P 0 0 0 0 Past Encounters Encounter ID Performer Location Encounter Start Date Encounter Closed Date Diagnosis/Indication Diagnosis SNOMED-CT Code Diagnosis ICD10 Code Diagnosis Note [id number] Wild Mendoza MD [facility] - [facility] [address] [place] [address] 06/12/2023 13:36:18 06/12/2023 18:56:08 Contusion of left lower leg [id number] S80.12XA This 77-year-ol d female bruised her left anterior lower leg when getting out of the bathtub yesterday. She appears to has a bruise with no deformity. She is taking blood thinners. I recommende d ice packs and elevation. She will follow-up with her PCP for any persistent symptoms. The patient agreed with this plan. [id number] Amina Fatima MD [address] [address] 02/29/2024 17:46:24 03/01/2024 00:46:10 Dysuria 66621694 R30.0 [id number] Kimmy Chang MD [facility] - [address] [address] 04/09/2024 16:51:24 04/09/2024 22:30:06 Urinary symptoms 108421929 R39.9 Increased frequency of urination 587101193 R35.0 Health Concerns Section Related Observation LastModified by Organization Detai ls LastModified Time None Recorded Concern Status LastModified by Organization Details LastModified Time None Recorded Advance Directives Directive None Recorded Payers Insurance Date Sequence Insurance Name Policy Number Policy Martinez Covered Member ID Martinez Member ID Guarantor Name 04/09/2024 1 [facility] - DOS ON OR AFTER 2022 - DUAL ELIGIBLE - LONGTERM OPTIONS AND ONE CARE (MEDICARE REPLACEMENT/ADV ANTAGE - HMO) Leonie Corea [id number] Leonie Corea Notes Date Note Type Note Provider Name and Address Organization Details Recorded Time 06/12/2023 text/html [facility] Nurse Triage Notes (Odessa Perez): Reason For Request: Fall Chief Complaints: Injury PMH: Heart Disease, Diabetes, Hypertension Allergies: Penicillin, Lidocaine, Morphine Comments: Called back member and dog day care attendant for c/o falling yesterday when getting out [...] but no call back yet. Verified name//address. [facility] [address] [place] [address],[address], [place], [address], [employer] 06/12/2023 13:41:12 02/29/2024 text/html [facility] Nurse Triage Notes (Alyson, Velia): Reason For Request: UTI Patient Reports: Painful urination; Frequent and increased urination with flank pain; Painful urination with or without fever Denies: Inability to fully empty bladder Chief Complaints: Urinary symptoms, Diabetes-related PMH: Coronary Artery Disease, Hypertension, Diabetes Mellitus Type 2 Comments: Fur Stretcher verified the name//address and phone number.Patient is [...] s/s and seek emergency treatment if needed Erp Analyst Organization Information for Denilson Diaz [employer] Legal Name: [employer]? Address: [address] [place] [address], Power Station Operator: Tobin Mclain MD [facility] No.: [id number] Erp Analyst POC Test Results from Denilson Diaz Urine Dipstick (17:44:16) Urine leukocytes: + ANT Urine nitrites: - NIT Urine urobilinogen: - URO Urine protein: +/- PRO Urine pH: 5.0 pH Urine blood: +++ BLO Urine specific gravity: 1.010 SG Urine ketones: - KET Urine bilirubin: +/- FRANTZ Urine glucose: - GLU .................. .................. .................. .................. .................. .................. .................. ............... Erp Analyst Note [facility] Pt presents with her daughter at home. Daughter reports pt had onset of burning with urination yesterday in addition to urinary frequency. Daughter also questioning some possible confusion. V/S taken as listed. Pt afebrile. Pt was able to provide urine specimen with dipstick analysis showing leukocytes and blood. Urine culture specimem obtained. Consulted with [facility] Dr. Fatima who started pt on antibiotics and requested urine culture sent to [facility]. Reviewed red flags for ED with pt and daughter. Pt education provided. [facility] Lab Orders: urinalysis, dipstick: Performed .................. .................. .................. .................. .................. .................. .................. ............... [facility] Consulted: Amina Fatima .................. .................. .................. .................. .................. .................. .................. ............... Disposition: Fulfilled Amina Fatima MD [address] [facility],[address], [place], [phone], [employer] 02/29/2024 19:43:53 04/09/2024 text/html [facility] Nurse Triage [...] Mellitus Type 2, Chronic Kidney Disease Comments: Fur Stretcher verified the patient's name//address and phone number. [...] emergency treatment if needed -Lupe Garza RN Erp Analyst Organization Information for [facility] [employer] Legal Name: [employer]? Address: [address] [place] [address], Power Station Operator: Tobin Mclain MD CLIA No.: [id number] Erp Analyst POC Test Results from [facility] Blood [...] under Documents section. Kimmy Chang MD [address] [facility],[address], [place], [address], [employer] 04/09/2024 22:48:45 OBGyn Episode No OBEpisode recorded.
--- OUTSIDE RECORDS SUMMARY | 2024-08-19 11:52 | XMS_ITS | Clinical Summary ---
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 (Freestyle Lite) 100 Each 2023 Active lancets (FREESTYLE LANCETS) 28 gaugeIndications :Type 2 diabetes mellitus with diabetic nephropathy, with long-term current use of insulin ([facility]),Type 2 diabetes mellitus with diabetic peripheral angiopathy without gangrene, with long-term current use of insulin ([facility]) Use to test blood glucose three times daily. (Freestyle Lancets) 100 Each 11 2023 Active alcohol swabsIndications :Type 2 diabetes mellitus with diabetic nephropathy, with long-term current use of insulin ([facility]),Type 2 diabetes mellitus with diabetic peripheral angiopathy without gangrene, with long-term current use of insulin ([facility]) Use to test blood glucose three times daily. 100 Each 2023 Active LORazepam (ATIVAN) 0.5 mg tablet Take 1 Tablet by mouth 3 (three) times daily as needed for anxiety or sleep 90 Tablet 1 2023 Active acetaminophen (TYLENOL) 500 mg tabletIndication s:Other diabetic neurological complication associated with type 2 diabetes mellitus ([facility]),Fibrom yalgia,Osteoarth ritis, unspecified osteoarthritis type, unspecified site Take 2 Tablets by mouth every 6 (six) hours as needed for pain 60 Tablet 2 2023 Active glucagon (BAQSIMI) 3 mg/actuation spry PLACE 3 MG INTO THE NOSTRIL(S) EVERY MORNING 2 Each 2 2023 Active naloxone (NARCAN) 4 mg/actuation nasal spray Place 1 [place] into the nostril(s) as needed for opioid [...] 2023 Active triamcinolone (KENALOG) 0.025 % cream [facility]/pharmacy #[id number] [place], [place] [phone] 60 g 0 Days Supply: 10Sig: APLIQUE AL JACOBO AFECTADA TOPICALLY DOS VECES AL D A POR 10 D ASSource: 2 Outside SourcesAuthorized by: THO HERNANDEZ 2023 Active montelukast (SINGULAIR) 10 mg tablet Take 1 Tablet by mouth nightly at bedtime (Prescribed by manager documentation Dr. Berkowitz) 2023 Active ondansetron ODT (ZOFRAN-ODT) [...] mouth 2 (two) times Daily (Prescribed by manager documentation - Dr. Michael Berkowitz) 2023 Active levocetirizine (XYZAL) 5 mg tablet Take 1 Tablet by mouth every evening [facility]/pharmacy #43 [place], [place] [phone] 90 Each 0 Days Supply: 90Sig: TAKE [...] gangrene, with long-term current use of insulin ([facility]) Inject 16 Units into the skin nightly at bedtime Increased dosing 9 mL 5 2024 Active glucose 4 gram chewable tabletIndication s:Type 2 diabetes mellitus with diabetic peripheral angiopathy without gangrene, with long-term current use of insulin ([facility]) Place 4 Tablets into mouth, chew and swallow as needed for low blood sugar (Less than 90 mg/dL) 30 Tablet 5 2024 Active insulin aspart (NOVOLOG FLEXPEN U-100 INSULIN) 100 unit/mL (3 mL)Indications:T ype 2 diabetes mellitus with diabetic peripheral angiopathy without gangrene, with long-term current use of insulin ([facility]) Inject 2-6 Units into the skin [...] gangrene, with long-term current use of insulin ([facility]),Mixed hyperlipidemia Take 1 Tablet by mouth nightly [...] gangrene, with long-term current use of insulin ([facility]) Use to inject insulin up to 4 [...] hypertrophy 08/08/202204/2022 Overview (03/05/2024): 12/20/23 at [facility] Cardio Chest pain Improved with Imdur; [...] may be normal for the patient's age. intermediate current use of anticoagulant therapy 0 08/08/2022 [...] kidney disease) stage 3, GFR 30-59 ml/min ([facility]) 11/07/2017 08/08/2022 Meniere disease 11/07/2017 08/08/2022 Overview (08/08/2022): 2016 Dr Baker Pulmonary hypertension ([facility]) 11/07/2017 08/08/2022 Overview (08/08/2022): b/l submassive PE diagnosed on Dec 20 in [facility] b/l submassive PE diagnosed on Dec 20 in [facility] 2016 DAVID RVSP- 46 Tubular adenoma of colon 11/07/2017 023 Overview (08/08/2022): 2005 Hyperparathyroidism ([facility]) 08/29/2017 Overview (08/08/2022): Right lower parathyroidectomy. 06/16/08 SURGEON: Danny Marie M.D. BODY SHOP FLOORPERSON: Naima Bowling M.D. Kidney stone 08/29/2017 08/08/2022 Hyperlipidemia LDL goal <70 08/29/2017 05/0 04/2022 Essential hypertension 08/29/2017 Seizure disorder ([facility]) 08/29/201708/08 Overview (08/08/2022): Not on medication Viral hepatitis C 08/29/2017 08/08/2022 Osteoarthrosis 08/23/2017 08/08/2022 Overview (08/08/2022): EGD on 06/24/16 by GI, Dr Damien caballero gastritis and esophageal varices grade 1 Lumbar spine Allergic rhinitis 08/23/2017 08/08/2022 Depression 08/23/2017 08/08/2022 Asthma-chronic obstructive p ulmonary disease overlap syndrome ([facility]) 08/23/2017 08/08/2022 Type 2 diabetes mellitus wit h diabetic peripheral angiopathy without gangrene, with long-term current use of insulin ([facility]) 08/23/2017 08/08/2022 Overview (07/24/2024): DM dx: [...] (11/10/10, 05/20/04) Diabetes foot exam: 04/25/24 at [facility] - notes on file 02/21/24 at [facility] - notes on file Diabetes retinal [...] new glasses RX, optional F/U 1 year [facility] Endocrinology: 11/24/22 Start Tradjenta 5 mg [...] insufficiency 05/24/2017 Overview (03/05/2024): 12/20/23 at [facility] Cardio Chest pain Improved with Imdur; [...] 05/24/2017 08/08/2022 Overview (03/05/2024): 12/20/23 at [facility] Cardio Chest pain Improved with Imdur; [...] normal for the patient's age. Esophageal varices ([facility]) 06/24/201604/2022 Overview (08/08/2022): endoscopy 10/05/2018 w non bleeding grade 1 esophageal varicesEGD on 06/24/[address] Damien CARUSO gastritis and esophageal varices grade 1 06/2106 EGD, Grade 1 endoscopy 10/05/2018 w non bleeding grade 1 esophageal varicesEGD on 06/24/[address] Damien CARUSO gastritis and esophageal varices grade 1 Right ventricular dilation 12/22/201508/08 Overview (08/08/2022): TTE 12/22/15 in [facility]: RV dilatation, RVSP 46 TTE 12/22/15 in [facility]: RV dilatation, RVSP 46 Anemia 12/21/2015 08/08/2022 Deep vein thrombosis (DVT) ([facility]) 12/21/2015 08/08/2022 Overview (08/08/2022): LE US- DVT involving 2 of 2 peroneal veins diagnosed on Dec 20 [facility] LE US- DVT involving 2 of 2 peroneal veins diagnosed on Dec 20 [facility] Positive PPD 10/09/2014 08/08/2022 Overview (08/08/2022): [...] Peripheral venous insufficiency 10/31/2011 08/08/2022 Diabetic neuropathy ([facility]) 09/19/2007 Sciatica 05/24/2004 08/08/2022 Tubular adenoma 04/10/2004 08/08/2022 Overview (08/08/2022): catherine colo July 2009 exc for 2 hyperplastic polypsColonoscopy 2004 at [facility] [place] per letter of Dr Amor Dobbins Tubular adenoma 04/10/2004 08/08/2022 Overview (08/08/2022): catherine colo July 2009 exc for 2 hyperplastic polypsColonoscopy 2004 at [facility] [place] per letter of Dr Amor Dobbins Resolved Problems Problem Noted Date Diagnosed Date Resolved Date Obesity 08/08/2022 08/08/2022 07/24/2024 Encounters Date Type Department Care Team Description 07/24/2024 3:40 PM EDT Telemedicine Visit [facility] [address] [place] [address] Darwin Encinas, PharmD Type 2 diabetes mellitus with diabetic peripheral angiopathy without gangrene, with long-term current use of insulin ([facility]) (Primary Dx); Essential hypertension; Hyperlipidemia LDL goal <70 06/06/2024 3:20 PM EST Telemedicine Visit [facility] [address] [place] [address] Mark Morales NP Cervical pain (neck) (Primary [...] Hepatocellular Carcinoma Scr eening (HCC) 04/23/2023 10/21/2022 Lipid Screening 05/08/2024 05/08/2023, 12/23/2015 Imm-DTaP/Tdap/Td (2 - Td or Tdap) 05/12/2024 05/12/2014, 11/10/2010, 11/10/2010 [id number] ( season) 2024 12/27/2023, 02/14/2023, 05/25/2022, Additional history exists Diabetes HbA1c 07/23/2024 04/24/2024, 10/08, 07/26/2023, Additional history exists Urine Albumin Creatinine Rat io Screening 07/25/2024 07/26/2023 Tobacco Screening 08/24/2024 08/25/2023 Diabetes Foot Exam 10/24/2024 10/25/2023 Falls Prevention 10/24/2024 10/25/2023 Serum Creatinine 10/24/2024 10/25/2023, 04/2022, 12/25/2015 TSH Monitoring 10/24/2024 10/25/2023, 08/08/2022 Depression Monitoring 11/19/2024 08/19/2024 , 10/25/2023, 05/08/2023, Additional history exists Medicare Annual Wellness Visit 12/26/2024 12/27/2023 , 08/08/2022 EGD (Upper Endoscopy) 08/08/2025 08/08/2022 Imm-Pneumococcal 65+ Completed 05/12/2014, 11/10/2010, 05/20/2004 Imm-Zoster, Recombinant Completed 12/09/19, 09/15/2021, 10/16/2012 Bone Density Screening Completed 11/22/2022 Imm-Influenza Completed 12/27/2023, 04/11, 02/04/2023, Additional history exists Retinopathy Screening Discontinued 04/24/2024, 025 Alcohol and Drug Screen Completed 05/06/19, 05/08/2023, 05/08/2023, Additional history exists Procedures Procedure Name Priority Date/Time Associated Diagnosis Comments IMAGING SCANNED DOCUMENT 08/09/2024 3:00 AM EDT IMAGING SCANNED DOCUMENT 08/09/2024 3:00 AM EDT REFERRAL SCANNED DOCUMENT 07/24/2024 3:00 AM EDT REFERRAL SCANNED DOCUMENT 07/19/2024 3:00 AM EDT OTHER ORDERS SCANNED DOCUMENT 07/01/2024 3:00 AM EDT REFERRAL SCANNED DOCUMENT 06/19/2024 3:00 AM EDT HEMOGLOBIN GLYCOSYLATED A1C Routine 04/24/2024 1:09 PM EST Type 2 diabetes mellitus with diabetic peripheral angiopathy without gangrene, with long-term current use of insulin ([facility]) EYE EXAM 04/24/2024 3:00 AM EST TSH W/RFLX FREE T4 Routine 10/25/2023 11 :27 AM EDT Hyperparathyroidism ([facility]) Prediabetes COMPREHENSIVE METABOLIC PANEL Routine 10/25/2023 11:27 AM EDT Cirrhosis of liver without ascites, unspecified hepatic cirrhosis type ([facility]) Hyperparathyroidism ([facility]) Type 2 diabetes mellitus with diabetic peripheral angiopathy without gangrene, with long-term current use of insulin ([facility]) Diabetic mononeuropathy associated with type 2 diabetes mellitus ([facility]) Hepatitis C virus infection without hepatic coma, unspecified chronicity Resistant hypertension MICROALBUMIN/CREATINI NE RATIO, URINE, RANDOM Routine 07/26/2023 2:42 PM EDT Type 2 diabetes mellitus with diabetic nephropathy, with long-term current use of insulin ([facility]) LIPID PANEL Routine 05/08/2023 3:04 PM EST Hypercholesterolemia HISTORIC DEXA SCAN 11/22/2022 3: 00 AM EDT US ABDOMEN ULTRASOUND Routine 10/21/2022 3:00 AM EDT Abdominal pain, unspecified abdominal location UPPER GI ENDOSCOPY Routine 08/08/2022 11 :41 AM EDT Varices of esophagus determined by endoscopy ([facility]) from Last 3 Months or Most Recently Relevant to Health Maintenance Results * IMAGING SCANNED DOCUMENT (08/09/2024 3:00 AM EDT) Only the most recent of2 resultswithin the time period is included. 08/09/2024 3:00 AM EDT Massimo Eleuterio PA SCAN IMAGING Final Result * REFERRAL SCANNED DOCUMENT (07/24/2024 3:00 AM [...] A1C 8.7(H) <5.7 % of total Hgb [facility] Comment: For someone without known diabetes, a [...] PM EST 04/24/2024 1:09 PM EST Narrative [facility] - 04/25/2024 3:26 AM EST FASTING:NO us Darwin Encinas PharmD LAB - BLOOD DRAW Final Re sult Performing Organization Address [facility] de Phone Number [facility] [address] [address], [place] [address] [address] * EYE EXAM (04/24/2024 3:00 AM EST) 04/24/2024 3:00 AM EST us Massimo PACHECO OTHER Edited Result - Final * TSH W/RFLX FREE T4 (10/25/2023 11:27 AM EDT) TSH W/REFLEX TO FT4 2.80 0.40 - 4.50 mIU/L [facility] Blood Blood / Unknown 10/25/2023 1 1:27 AM EDT 10/25/2023 11:27 AM EDT us Massimo PACHECO LAB - BLOOD DRAW Final Result Performing Organization Address [facility] Co de Phone Number [facility] [address] [address], [place] [address] [address] * (ABNORMAL) COMPREHENSIVE METABOLIC PANEL (10/25/2023 11:27 AM EDT) GLUCOSE 118(H) 65 - 99 mg/dL [facility] Comment: ?Fasting reference interval For someone without known diabetes, a glucose value between 100 and 125 mg/dL is consistent with prediabetes and should be confirmed with a follow-up test. UREA NITROGEN (BUN) 16 7 - 25 mg/dL [facility] CREATININE (blood) 0.85 0.60 - 1.00 mg/dL [facility] [employer] [facility] EGFR 70 > OR = 60 mL/min/1. 73m2 [facility] [facility] BUN/CREATININE RATIO SEE NOTE: [employer] [facility] Comment: ?? Not Reported: BUN and Creatinine are within ?? reference range. ? SODIUM 142 135 - 146 mmol/L [facility] [facility] POTASSIUM 4.8 3.5 - 5.3 mmol/L [facility] CHLORIDE 104 98 - 110 mmol/L [facility] [facility] CARBON DIOXIDE 29 20 - 32 mmol/L [facility] CALCIUM 9.5 8.6 - 10.4 mg/dL [facility] PROTEIN, TOTAL 7.0 6.1 - 8.1 g/dL [facility] ALBUMIN 4.3 3.6 - 5.1 g/dL [facility] GLOBULIN 2.7 1.9 - 3.7 g/dL (calc) [facility] ALBUMIN/GLOBULI N RATIO 1.6 1.0 - 2.5 (calc) [facility] BILIRUBIN, TOTAL 0.5 0.2 - 1.2 mg/dL [facility] ALKALINE PHOSPHATASE 87 37 - 153 U/L [facility] AST 16 10 - 35 U/L [facility] [facility] ALT 10 6 - 29 U/L [facility] [facility] Blood Blood / Unknown 10/25/2023 1 1:27 AM EDT 10/25/2023 11:27 AM EDT Massimo PACHECO LAB - BLOOD DRAW Final Result [facility] [facility] [address] [address], [employer] [address] [address] * MICROALBUMIN/CREATININE RATIO, URINE, RANDOM (07/26/2023 2:42 PM EDT) [facility] CREATININE, RANDOM URINE 140 20 - 275 mg/dL [facility] [facility] MICROALBUMIN 1.2 mg/dL [facility] Comment: Reference Range Not established MICROALBUMIN/CREA TININE RATIO, RANDOM URINE 9 <30 mg/g creat [facility] Comment: The ADA defines abnormalities in [...] - NO BLOOD DRAW Final R esult [facility] [address] [address], [employer] [address] [address] * (ABNORMAL) LIPID PANEL (05/08/2023 3:04 PM EST) [facility] CHOLESTEROL, TOTAL 197 <200 mg/dL [facility] HDL CHOLESTEROL 61 > OR = 50 mg/dL [facility] [employer] [facility] TRIGLYCERIDES 317(H) <150 mg/dL [facility] Comment: If a non-fasting specimen was collected, consider repeat triglyceride testing on a fasting specimen if clinically indicated. Lexi et al. J. of Clin. Lipidol. 2015;9:129-169. LDL-CHOLESTEROL 94 99 mg/dL (calc) [facility] Comment: Reference range: <100 Desirable range <100 mg/dL for primary prevention; ?? <70 mg/dL for patients with CHD or diabetic patients with > or = 2 CHD risk factors. LDL-C is now calculated using the Alvarez calculation, which is a validated novel method providing better accuracy than the Friedewald equation in the estimation of LDL-C. Gilles SPENCER et al. JESUS. 2013;310(19): 8469-7679 (http://education.Writer's Bloq/faq/MXG537) CHOL/HDLC RATIO 3.2 <5.0 (calc) [facility] NON-HDL CHOLESTEROL 136(H) <130 mg/dL (calc) [facility] Comment: For patients with diabetes plus 1 major ASCVD risk factor, treating to a non-HDL-C goal of <100 mg/dL (LDL-C of <70 mg/dL) is considered a therapeutic option. Blood Blood / Unknown 05/08/2023 3 :04 PM EST 05/08/2023 3:05 PM EST us Massimo PACHECO LAB - BLOOD DRAW Final Result [facility] [address] [place] [phone], [facility] [address] [place] [phone] * HISTORIC DEXA SCAN (11/22/2022 3:00 AM EDT) 11/22/2022 3:00 AM EDT us Massimo PACHECO IMG DXA Final Result * US ABDOMEN ULTRASOUND (CAPE COD) (10/21/2022 3:00 AM EDT) 10/21/2022 3:00 AM EDT us Massimo PACHECO IMG ULTRASOUND Edited Result - Final from Last 3 Months or Most Recently Relevant to Health Maintenance Insurance [facility] - [facility]ENT[facility] Member Subscriber Plan / Payer (Ef fective 2012-Present) Name:Leonie Corea Relation to Subscriber:Self Name:Leonie Corea Payer ID:[id number] Group ID:Not on file Type:Indemnity Address: [address] [place] [address] Care Teams [employer] Worker Relationship Specialty Start Date End Date Massimo Mcclellan PA [address] [place] [address] PCP - General FAMILY [facility]ICINE PA 05/13/22
--- OUTSIDE RECORDS SUMMARY | 2024-08-19 11:52 | XMS_ITS ---
Author Organization [facility] Address [address] [place] [phone] Care Team Providers Care Aoc Operations Intelligence Officer Name Role Phone RICKY GARZA, DAISY Primary Care Provider Unavailable Amor Dobbins Jr [phone] REASON FOR VISIT INTESTINAL ISSUES Encounters Encounter Location Date Provider Diagnosis [facility] [address] [facility] [address] [place] [phone] 01/17/2024 Amor Dobbins Jr Plan Of Treatment No Information Progress Notes * TOMMY CHOU EDOB:1945 (79 yo F)Acc No.[id number]:01/17/2024 Progress Notes Patient:?EFFIE TOMMY Arlin Provider:?Amor Dobbins MD :1945???Age:78 Y???Sex:Female D ate:01/17/2024 Address:[address] [place], [place] [id number] Pcp:Jake GALEANO Subjective: * Chief Complaints: * ???1. INTESTINAL ISSUES. * Medical History:? Objective: * Vitals:? Assessment: Plan: * Treatment: * * The named appointment provid er may or may not be the originator of this progress note, and it is not deemed complete until electronically signed by the appointment provider. Sign off status: Pending * Provider:?Amor Dobbisn MD Date:?1 Generated for Bradyi juvenal/Fapurvi/eTransmitting on:?08/19/2024 11:51 AM EDT
--- OUTSIDE RECORDS SUMMARY | 2024-08-19 11:52 | XMS_ITS | Patient Health Record ---
Author Organization [facility] Address [address] [place] [address] Care Team Providers Care Materials Management Supervisor Name Role Phone Massimo Figueroa Primary Care Provider Unavail able Miguel A Layne Unavailable [phone] Allergies Allergen (clinical drug ingredient) Drug/Non Drug [...] Active Celecoxib 200 MG (Prior Auth: Rx Ref#:[id number]) Oral for 30 Not-Taking Tresiba Active DULoxetine HCl 60 MG (Prior Auth: Rx Ref#:[id number]) Oral for 30 Not-Taking NovoLOG Active Enalapril Maleate 10 MG (Prior Auth: Rx Ref#:[id number]) Oral for 90 Not-Taking Acetaminophen Extra Strength 500 MG (Prior Auth: Rx Ref#:[id number]) Oral for 13 Active Gabapentin 400 MG (Prior Auth: Rx Ref#:[id number]) Oral for 90 Not-Taking Albuterol Sulfate (2.5 MG/3ML) 0.083% (Prior Auth: Rx Ref#:[id number]) Inhalation for 10 Active Ferrous Sulfate 325 (65 Fe) MG 1 tablet Orally Once a day for 30 day(s) Not-Taking Capsaicin 0.025 % 1 application to affected area as needed Externally Three times a day Active Fluticasone Furoate 200 MCG/ACT 1 puff Inhalation Once a day Active hydroCHLOROthiazide 12.5 MG (Prior Auth: Rx Ref#:[id number]) Oral for 30 Active Polyethylene Glycol 3350 - as directed Active Flunisolide 25 MCG/ACT (0.025%) (Prior Auth: Rx Ref#:[id number]) Nasal for 25 Active Extra Depth Orthopedic Shoes (1 Pair) with Customized Heat Molded Multidensity Innersoles (3 Pair) as directed Dx: IDDM/Polyneuropathy (E10.42), Hammertoe Foot Deformity (M20.41,M20.42), Preulcerative Skin Lesion(s) (L85.1) 01/12/2023 Active Loratadine 10 MG (Prior Auth: Rx Ref#:[id number]) Oral for 90 Active Montelukast Sodium 10 MG (Prior Auth: Rx Ref#:[id number]) Oral for 30 Active oxyCODONE HCl 5 MG (Schedule II Drug) (Prior Auth: Rx Ref#:[id number]) Oral for 28 Active Pantoprazole Sodium 40 MG (Prior Auth: R x Ref#:[id number]) Oral for 30 Active Pravastatin Sodium 10 MG (Prior Auth: Rx Ref#:[id number]) Oral for 30 Active Aspirin Low Dose 81 MG (Prior Auth: Rx Ref#:[id number]) Oral for 90 Not-Taking Citracal + D [...] Problem Acquired hammer toe of right foot ([id number] ) Other hammer toe(s) (acquired), right foot (M20.41) Active confirmed Problem Acquired hammer toe of left foot (9285252065253013 ) Other hammer toe(s) (acquired), left foot (M20.42) Active confirmed Problem Polyneuropathy due to diabetes mellitus type I (578764154) Type 1 diabetes mellitus with diabetic polyneuropathy (E10.42) Active confirmed Plan Of Treatment Pending Test Test Name Order Date X ray : Foot, left 3V 12/18/2018 X ray : Foot, right 3V 12/18/2018 [id number] NAIL, 6 OR MORE 11/10/2021 32991-[id number] NAIL, 6 OR MORE 01/12/2023 58757-YVAV SKIN LESIONS, OVER 4 01/13/20 23 65425-YINS SKIN LESIONS, OVER 4 11/11/19 22 87993-WQPY SKIN LESIONS, OVER 4 09/19/19 19 41329-GFHX SKIN LESIONS, OVER 4 12/19/19 19 41764-PNWZ SKIN LESIONS, OVER 4 03/26/20 19 33489-RWNR SKIN LESIONS, OVER 4 09/09/19 21 30934-GRKA SKIN LESIONS, OVER 4 06/12/19 22 Insurance Providers Payer Name Payer Address Payer Phone Subscriber Number Group Number Insured Name Patient Relationship to Insured Coverage Start Date Coverage End Date [facility] [employer] Claims [address] [place] [phone] [id number] [id number] Leonie Corea Self - patient is the [...] History Reason Date(Month/Year) [facility]- check [facility] heart [facility] for kidney stones 05/01
--- OUTSIDE RECORDS SUMMARY | 2024-08-19 11:53 | XMS_ITS ---
Author Organization [facility] Address [address] [place] [phone] Care Team Providers Care In Flight Refueling Operator Name Role Phone RICKY GARZA, DAISY Primary Care Provider Unavailable Amor Dobbins Jr REASON FOR VISIT no show Encounters Encounter Location Date Provider Diagnosis [facility] [address] [place] [phone] 09/18/2023 Amor Dobbins Jr Plan Of Treatment No Information Progress Notes * TOMMY CHOU EDOB:1945 (78 yo F)Acc No.[id number]:09/18/2023 Patient:?TOMMY CHOU :1945???Age:78 Y???Sex:Female Address:[address] [place] [address], [place] [address] * true * Date:? Generated for Printi ng/Benjie/eTransmitting on:?08/19/2024 11:52 AM EDT
--- OUTSIDE RECORDS SUMMARY | 2024-08-19 11:53 | XMS_ITS | Patient Health Record ---
Author Organization [facility] Address [address] [place] [phone] Care Team Providers Care Inventory And Pricing Associate Name Role Phone RICKY GARZA, DAISY Primary Care Provider Unavailable Amro Dobbins Jr Unavailable [phone] Allergies Allergen (clinical drug ingredient) Drug/Non Drug [...] Once a day for 30 day(s) Active Efhdelipcxu-Btqdqwudg-Ubpgzj 100-62.5-25 MCG/INH 1 puff Inhalation Once a [...] Problem Status W/U Status Risk Notes Problem 73970459 Epigastric pain (R10.13) Active confirmed Problem 769921431 Gastroesophageal reflux disease without esophagitis (K21.9) Active confirmed Problem 95622217 Iron deficiency anemia, unspecified iron deficiency anemia type (D50.9) Active confirmed Problem 185008711 Anemia, unspecif ied type (D64.9) Active confirmed Problem 72957602 Dysphagia, unspecified type (R13.10) Active confirmed Problem 63596592 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, 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) Active confirmed Encounters Encounter Location Date Provider Diagnosis [facility] [address] [place] [phone] 09/18/2023 Amor Dobbins Jr [facility] [address] [place] [phone] 01/15/2024 Amor Dobbins Jr Plan Of Treatment Pending Test Test Name Order Date BUN 11/09/2020 CREATININE 11/09/2020 LIVER PROFILE 12/27/2021 LIVER PROFILE 06/06/2014 LIVER PROFILE 11/09/2020 CBC w/o DIFF 06/06/2014 CBC w/o DIFF 11/09/2020 CBC w/o DIFF 12/27/2021 PROTHROMBIN TIME (PT, INR) 12/27/2021 PROTHROMBIN TIME [...] Insured Coverage Start Date Coverage End Date [facility] [address] [place] [address] [id number] TOMMY CHOU Self - patient is the [...]
--- OUTSIDE RECORDS SUMMARY | 2024-08-19 11:53 | XMS_ITS | Clinical Summary ---
Author Organization [address] [facility] Address [address] [place] [address] Phone Care Team Providers Care Desk Monitor Name Role Phone Massimo Mcclellan Primary Care Provider [phone] Allergies Active Allergy Reactions Criticality Noted Date [...] kidney disease) stage 3, GFR 30-59 ml/min [place] [place] [facility] [place] 11/07/2017 Esophageal varices [place] [place] [facility] [place] Overview (01/30/2024): 06/2106 EGD, Grade 1 Meniere disease 11/07/2017 Overview (01/30/2024): 2015 Dr Baker Osteopenia 11/07/2017 Pulmonary hypertension [place] [place] [facility] [place] 11/07/2017 Overview (01/30/2024): 2015 DAVID RVSP- 46 Tubular adenoma of colon 11/07/2017 Overview (01/30/2024): 2005 Type 2 diabetes mellitus wit h cataract ([facility] [place] [facility] [place] 11/07/2017 Fibromyalgia 08/29/2017 Hepatitis C 08/29/2017 Hyperlipidemia 08/29/2017 Hyperparathyroidism ([facility] [place] 08/29/2017 Hypertension 08/29/2017 Kidney stone 08/29/2017 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 Overview (01/30/2024): Never treated Seizure disorder ([facility] [place] [place] [facility] [place] [place] 08/09 Overview (01/30/2024): Not on medication Allergic rhinitis 08/23/2017 Anxiety 08/23/2017 Asthma 08/23/2017 Depression 08/23/2017 DM (diabetes mellitus), type 2 with renal complications [place] [place] [facility] [place] 08/23/2017 GERD (gastroesophageal reflux disease) 8 Insomnia 08/23/2017 Osteoarthritis 08/23/2017 Overview (01/30/2024): Lumbar spine Encounters Date Type Department Care Team Description 06/28/2024 Telephone Orthopedic Surgery - [address] [phone] Florian Mott DPM notes from [...] PM EDT Office Visit Orthopedic Surgery - [place] [address] [phone] Florian Mott DPM [address] [address] Health Maintenance Due Date Last Done Comments [...] Most Recently Relevant to Health Maintenance Insurance [facility] MEDICARE Member Subscriber Plan / Payer (Ef fective 2012-Present) Name:Leonie Corea Relation to Subscriber:Self Name:Leonie Corea Payer ID:[id number] Group ID:[id number] Type:Not on file Address: [place] [address] [address] [address] Advance Directives Documents on File Type Date Recorded Patient Office 365 Consultant Expl anation Health Care Decision (hx) 03/30/2021 [...] (hx) 12/25/2015 AD NIEVES DIRECTIVE Care Teams Desk Monitor Relationship Specialty Start Date End Date Massimo Mcclellan PA [address] [place] [address] PCP - General 11/24/23
== END 2024-08-19 12:21 | disposition home or self-care (01) ==
LOC: HO.PMC 11:07
PROVIDERS: PCP Physician Assistant; Visit Provider Internal Medicine
DX: G95.9 Disease of spinal cord, unspecified (principal); M54.12 Radiculopathy, cervical region; Z98.1 Arthrodesis status
CPT/HCPCS: 99214

== ENCOUNTER → 2024-08-19 11:06 | Outpatient (BNVA) | payer OTHER, SELFPAY | PROVIDERS: PCP Physician Assistant; Visit Provider Internal Medicine | DX: G95.9 Disease of spinal cord, unspecified (principal); M54.12 Radiculopathy, cervical region; Z98.1 Arthrodesis status | CPT/HCPCS: 99212 ==

== ENCOUNTER 2024-08-26 11:28 | Outpatient (AMB) | payer OTHER, SELFPAY ==
--- NOTE | 2024-08-26 11:51 | HO.SPINEOV ---
Intake Visit Reasons: persistent neck pain Intake Note: Ms. Corea is here today for pesistent neck pain. Quality Assurance Consultant Required: No Allergies bee pollen [bee stings] Allergy (Severe, Verified 08/26/24 11:51) Anaphylaxis lidocaine [From LIDODERM] Allergy (Severe, Verified 08/26/24 11:51) BLISTERS from adhesive morphine [MORPHINE] Allergy (Severe, Verified 08/26/24 11:51) PO will cause itching, can tolerate IV Penicillins [PENICILLINS] Allergy (Severe, Verified 08/26/24 11:51) SWELLING/ITCHING gabapentin [GABAPENTIN] Allergy (Intermediate, Verified 08/26/24 11:51) SORES IN MOUTH- AGITATION enalapril Adverse Reaction (Severe, Verified 08/26/24 11:51) hyperkalemia Ampicillin Allergy (Intermediate, Uncoded 08/19/24 11:46) Rash and Hives Assessment & Plan Assessment & Plan (1) S/P cervical spinal fusion: Code(s): Z98.1 - Arthrodesis status Category: Surgical Plan HPI: Leonie comes in today for a subsequent postoperative follow up. She is accompanied by her daughter to this visit who helps provide some of her history as the patient has some mild-moderate dementia. To recap she had C3-C4 ACDF completed by Dr. Fernando on 03/05/24 for cervical myelopathy. To recap she was previously evaluated in clinic for persistent posterior neck pain with some bilateral shoulder pain reported as well. We attempted to manage this conservatively and sent her for a course of occupational therapy. After her course of occupational therapy she was sent for a cervical MRI to evaluate for any subsequent spinal cord or nerve impingement given that her symptoms were persisting beyond the expected normal postoperative pain window. Today, her daughter reports that she has had some increased issues with balance since she was evaluated last, in his essentially needs to use her cane to ambulate for support continuously now. The patient reports some worsening of her neck and shoulder pain, and states that it now travels down the outside of her upper arms terminating before the elbow. 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 Exam: the patient has about 4/5 handgrip & interossei strength testing, but maintains 5/5 strength elsewhere in the upper extremities. She has normal reflexes and (-) modi's bilaterally. Her gait has a notable balance disturbance when attempting to ambulate independently, but does not appear spastic. Imaging: Repeat MRI of the cervical spine completed at [facility] reviewed during this visit, which shows new severe spinal cord compression at C4-5. Some evidence of myelomalacia slightly increased behind this segment compared to previous MRI imaging. Plan: The patient needs the severe spinal cord compression seen at C4-5 addressed via C4-5 ACDF. I will review her imaging with the attending neurosurgeon Dr. Fernando tomorrow and will call the patients daughter thereafter. Gerardo Fernando MD,PhD [facility] Coding Level of Care Code Est Pt Level 2 (31241) Diagnoses S/P cervical spinal fusion Z98.1
--- OUTSIDE RECORDS SUMMARY | 2024-08-26 12:10 | XMS_ITS ---
Author Organization [facility] Address [address] [place] [phone] Care Team Providers Care Advertising Clerk Name Role Phone RICKY GARZA, DAISY Primary Care Provider Unavailable Amor Dobbins Jr REASON FOR VISIT INTESTINAL ISSUES Encounters Encounter Location Date Provider Diagnosis [facility] [address] [facility] [address] [place] [phone] 01/17/2024 Amor Dobbins Jr Plan Of Treatment No Information Progress Notes * TOMMY CHOU EDOB:1945 (79 yo F)Acc No.[id number]:01/17/2024 Progress Notes Patient:?EFFIE TOMMY Arlin Provider:?Amor Dobbins MD :1945???Age:78 Y???Sex:Female D ate:01/17/2024 Address:[address] [place], [place] [id number] Pcp:Jake GALEANO Subjective: * Chief Complaints: * [...] Dobbins MD Date:?1 Generated for Bradyi juvenal/Fapurvi/eTransmitting on:?08/26/2024 12:09 PM EDT
--- OUTSIDE RECORDS SUMMARY | 2024-08-26 12:10 | XMS_ITS ---
Author Organization [facility] Address [address] [place] [address] Care Team Providers Care Coat Room Attendant Name Role Phone RICKY GARZA, DAISY Primary Care Provider Unavailable Amor Dobbins Jr REASON FOR VISIT cancel appt Encounters Encounter Location Date Provider Diagnosis [facility] [address] [place] [address] 01/15/2024 Amor Dobbins Jr Plan Of Treatment No Information Progress Notes * TOMMY CHOU EDOB:1945 (78 yo F)Acc No.[id number]:01/15/2024 Patient:?TOMMY CHOU :1945???Age:78 Y???Sex:Female Address:[address] [place] [address], [place] [address] * true * Date:? Generated for Printi ng/Faxing/eTransmitting on:?08/26/2024 12:10 PM EDT
--- OUTSIDE RECORDS SUMMARY | 2024-08-26 12:10 | XMS_ITS | Data Portability ---
Author Organization [employer] [facility] Address [address] [place] [phone] Care Team Providers Care Dance Director Name Role Phone MARCIUNIQUEFELY Primary Care Provider HIM CCA OTHER Assessment Encounter Date Assessment Date Assessment LastModified by Organization Details LastModified Time 02/29/2024 02/29/2024 Evaluation in the field was performed by my calender wind up helper colleague, as noted above, I provided real-time [...] Assessment and Plan as documented by the Brake Engineer. Patient given the opportunity to ask questions. Our service contacted for an assessment of: Urinary frequency As per above, patient with approximately several days of urinary frequency. Denies dysuria, abdominal pain, suprapubic pain, flank pain, fever, chills. Does have diabetes and sugars have been running high. Does not specifically endorse polydipsia. No history of frequent urinary tract infections Per calender wind up helper on the scene, vital signs are stable [...] Appointments None recorded. Lab urinalysis, dipstick 2023 [facility], [address] [place] [address], [phone] 4 19:24:48 culture, urine 2023 [facility] (Centralized Electronic Ordering - All Locations), Patient Can Go To The Location Of Their Choice, [id number] 5 20:05:30 urinalysis, dipstick 2023 [facility], [address] [place] [address], [id number] 4 18:47:22 culture, urine 2023 [facility] (Centralized Electronic Ordering - All Locations), Patient Can Go To The Location Of Their Choice, [id number] 4 22:06:00 Referral None recorded. Procedures None recorded. Surgeries None recorded. Imaging None recorded. Medication Orders cefuroxime axetil 500 mg tablet 2023 [facility][id number], [address] [place], [address], 17:49:37 Patient TargetsNo targets recorded. Patient InstructionsNo instructions recorded. Reason for Referral None Reported. Results Created Date Observation Date Name Description Value Unit Range Abnormal Flag Note LastModifiedBy Organization Detail LastModifiedTime 02/29/20 24 03/01/2024 URINE CULTU RE, ROUTI NE urine culture, routine Final report Not Available [facility] ([facility]) [address] [place], [address], 03/01/2024 22:06:00 02/29/20 24 03/01/2024 URINE CULTU RE, ROUTI NE result 1 No growth Not Available [facility] ([facility]) [address] [place], [address], 03/01/2024 22:06:00 04/09/20 24 04/10/2024 URINE CULTU RE, ROUTI NE urine culture, routine Final report Not Available [facility] ([facility]) [address] [facility], [place], [address], 04/10/2024 20:05:30 04/09/20 24 04/10/2024 URINE CULTU RE, ROUTI NE result 1 No growth Not Available [facility] ([facility]) [address] [place], [address], 04/10/2024 20:05:30 Result Notes None recorded. Medical Equipment None Reported. Allergies Allergen ID Allergen Name Allergen Category Reaction Reaction Severity Criticality Documentation Date Start Date Code Code System Note Provider Name and Address Organization Details Recorded Time 67613 enalapril Not available Not available Not available Not available 02/29/2024 3827 RxNorm Not Available [facility] - production 11:30:38 9685 Product containin g penicilli n (product) medicatio n Not available Not available Not available 02/06/2024 29347 8001 SNOMED Not Available [facility] - production 04:14:41 9686 lidocaine medicatio n Not available Not available Not available 02/06/2024 6387 RxNorm Not Available [facility] - production 4 04:14:41 9687 morphine medicatio n Not available Not available Not available 02/06/2024 7052 RxNorm Not Available [facility] [place] 4 04:14:41 Medications Name Sig Start Date [...] Not Available No t Available Dexcom G7 Agribusiness Professor USE TO TEST BLOOD GLUCOSE CONTINUOUSL Y (DEXCOM G7 MACHINE DESIGN ENGINEER) active Not Available Not Available No t [...] /min 113 mm[Hg] 74 mm[Hg] Not Available [facility] - 4 13:36:27 Date Recorded Oxygen saturation Oxygen saturation in Arterial blood by Pulse oximetry Body height Heart rate Respiratory rate Body temperature Body weight Systolic blood pressure Diastolic blood pressure Provider Name and Address Organization Details Last Updated DateTime 4 98 % 98 % 160.02 cm 67 /min 16 /min 98.3 [degF] 81095.6 16 g 117 mm[Hg] 61 mm[Hg] Not Available [facility] - [employer] 4 17:46:27 Date Recorded Body temperature Body weight Body height Heart rate Oxygen saturation Oxygen saturation in Arterial blood by Pulse oximetry Respiratory rate Systolic blood pressure Diastolic blood pressure Provider Name and Address Organization Details Last Updated DateTime 4 98.7 [degF] 23872.9 84 g 160.02 cm 80 /min 99 % 99 % 18 /min 117 mm[Hg] 67 mm[Hg] Not Available [employer] 4 17:07:34 Social History None recorded. Functional Status None recorded. Mental Status None recorded. Family History Nothing Reported. Medical History No medical history recorded. Gynecological HistoryNo gynecological history recorded. Obstetrics History GPAL:G 0 P 0 0 0 0 Past Encounters Encounter ID Performer Location Encounter Start Date Encounter Closed Date Diagnosis/Indication Diagnosis SNOMED-CT Code Diagnosis ICD10 Code Diagnosis Note [id number] Wild Mendoza MD [facility] - [facility] [address] [place] [address] 06/12/2023 13:36:18 06/12/2023 18:56:08 Contusion of left lower leg 5624384245 2842552 S80.12XA This 77-year-ol d female bruised her left anterior lower leg when getting out of the bathtub yesterday. She appears to has a bruise with no deformity. She is taking blood thinners. I recommende d ice packs and elevation. She will follow-up with her PCP for any persistent symptoms. The patient agreed with this plan. [id number] Amina Fatima MD [address] [phone] 02/29/2024 17:46:24 03/01/2024 00:46:10 Dysuria 95725828 R30.0 [id number] Kimmy Chang MD [facility] - [address] [phone] 04/09/2024 16:51:24 04/09/2024 22:30:06 Urinary symptoms 521837734 R39.9 Increased frequency of urination 668252585 R35.0 Health Concerns Section Related Observation LastModified by Organization Detai ls LastModified Time None Recorded Concern Status LastModified by Organization Details LastModified Time None Recorded Advance Directives Directive None Recorded Payers Insurance Date Sequence Insurance Name Policy Number Policy Martinez Covered Member ID Martinez Member ID Guarantor Name 04/09/2024 1 [facility] - DOS ON OR AFTER 2022 - DUAL ELIGIBLE - SNF OPTIONS AND ONE CARE (MEDICARE REPLACEMENT/ADV ANTAGE - HMO) Leonie Corea [id number] Leonie Corea Notes Date Note Type Note Provider Name and Address Organization Details Recorded Time 06/12/2023 text/html [facility] Nurse Triage Notes (Odessa Perez): Reason For Request: Fall Chief Complaints: Injury PMH: Heart Disease, Diabetes, Hypertension Allergies: Penicillin, Lidocaine, Morphine Comments: Called back member and progressive care manager for c/o falling yesterday when getting out [...] but no call back yet. Verified name//address. [employer] Mendoza MD [address] [place] [address],[address], [place], [address], [employer] 06/12/2023 13:41:12 02/29/2024 text/html [facility] Nurse Triage Notes (Alyson, Velia): Reason For Request: UTI Patient Reports: Painful urination; Frequent and increased urination with flank pain; Painful urination with or without fever Denies: Inability to fully empty bladder Chief Complaints: Urinary symptoms, Diabetes-related PMH: Coronary Artery Disease, Hypertension, Diabetes Mellitus Type 2 Comments: Wheel Blocker verified the name//address and phone number.Patient is [...] s/s and seek emergency treatment if needed Brake Engineer Organization Information for Denilson Diaz [facility] Legal Name: [employer]? Address: [address] [place] [address], Pile Driving Superintendent: Tobin Mclain MD [facility] No.: [id number] Brake Engineer POC Test Results from Denilson Diaz Urine Dipstick (17:44:16) Urine leukocytes: + ANT Urine nitrites: - NIT Urine urobilinogen: - URO Urine protein: +/- PRO Urine pH: 5.0 pH Urine blood: +++ BLO Urine specific gravity: 1.010 SG Urine ketones: - KET Urine bilirubin: +/- FRANTZ Urine glucose: - GLU .................. .................. .................. .................. .................. .................. .................. ............... Brake Engineer Note From [facility] Pt presents with her daughter at home. Daughter reports pt had onset of burning with urination yesterday in addition to urinary frequency. Daughter also questioning some possible confusion. V/S taken as listed. Pt afebrile. Pt was able to provide urine specimen with dipstick analysis showing leukocytes and blood. Urine culture specimem obtained. [place] [facility] [place] Fatima who started pt on antibiotics and requested urine culture sent to [facility]. Reviewed red flags for ED with pt and daughter. Pt education provided. [facility] [place] Orders: urinalysis, dipstick: Performed .................. .................. .................. .................. .................. .................. .................. ............... [facility] Consulted: Amina Fatima .................. .................. .................. .................. .................. .................. .................. ............... Disposition: Fulfilled Amina Fatima MD [address] [facility],[address], [place], [phone], [employer] 02/29/2024 19:43:53 04/09/2024 text/html [facility] Nurse Triage [...] Mellitus Type 2, Chronic Kidney Disease Comments: Wheel Blocker verified the patient's name//address and phone number. [...] emergency treatment if needed -Lupe Garza RN Brake Engineer Organization Information for [facility] Legal Name: [employer]? Address: [address] [place] [address], Pile Driving Superintendent: Tobin Mclain MD CLIA No.: [id number] Brake Engineer POC Test Results from [facility] Blood [...] under Documents section. Kimmy Chang MD [address] [facility],[address], [place], [address], [employer] 04/09/2024 22:48:45 OBGyn Episode No OBEpisode recorded.
--- OUTSIDE RECORDS SUMMARY | 2024-08-26 12:11 | XMS_ITS | Patient Health Record ---
Author Organization [facility] Address [address] [place] [phone] Care Team Providers Care Escalator Attendant Name Role Phone RICKY GARZA, DAISY [...] Once a day for 30 day(s) Active Koyxeonmylk-Kyekdexbp-Rtdzkc 100-62.5-25 MCG/INH 1 puff Inhalation Once a [...] Problem Status W/U Status Risk Notes Problem 07766376 Epigastric pain (R10.13) Active confirmed Problem 887813912 Gastroesophageal reflux disease without esophagitis (K21.9) Active confirmed Problem 65001734 Iron deficiency anemia, unspecified iron deficiency anemia type (D50.9) Active confirmed Problem 469176632 Anemia, unspecif ied type (D64.9) Active confirmed Problem 02893106 Dysphagia, unspecified type (R13.10) Active confirmed Problem 74601038 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
--- OUTSIDE RECORDS SUMMARY | 2024-08-26 12:11 | XMS_ITS | Encounter Summary ---
Author Organization [facility] Address [address] [place] [address] Care Team Providers Care Portainer Operator Name Role Phone Massimo Mcclellan Primary Care Provider [phone] Encounter Details Date Type Department Care Team (Latest Contact Info) Description 08/20/2024 Results Follow-Up [facility] [address] [place] [phone] Darwin Encinas, PharmD [address] [place] [address] HEMOGLOBIN GLYCOSYLATED A1C Social History Tobacco Use Types Packs/Day Years [...] AM PST documented as of this encounter Nursing Notes * Herrera Rand RN - 08/20/2024 1:58 PM EDT Images from the original note were not included. Contacted patient and rn progressive care. Report blood sugar is still high averaging around 300. Reports using tresiba 18 units at night against providers plan and blood sugar has been 120-140 in the morning. Requesting additional medications and will discuss this in upcoming visit with PharmD Max Will forward to Anju Bautista RN Jens, please inform patient. Thank you! A1c - shows slight worsening in glycemic control (from 8.7% to 8.9%). Please high school counselor patient to use4-6 units of insulin aspart before dinner. Educate patient to continue to decrease high-carbohydrate foods (rice, bread, pasta, potatoes, starches), increase vegetable intake, and increase physical activity. I have issued a nutrition referral on 07/24/24 and it is still pending, one of our staff will call to schedule appt. PHARMACOTHERAPY for diabetes - Tresiba U-200 - inject 16 units daily at bedtime - Insulin aspart - inject 2-6 units three times daily before meals (do not use if BG <100 mg/dL - max 18 units/day) Let me know if they have any questions, Darwin Encinas PharmD * Herrera Rand RN - 08/20/2024 1:57 PM EDT ----- Message from Darwin Encinas sent at 08/20/2024 9:09 AM EDT ----- Jens, please inform patient. Thank you! A1c - shows slight worsening in glycemic control (from 8.7% to 8.9%). Please high school counselor patient to use4-6 units of insulin aspart before dinner. Educate patient to continue to decrease high-carbohydrate foods (rice, bread, pasta, potatoes, starches), increase vegetable intake, and increase physical activity. I have issued a nutrition referral on 07/24/24 and it is still pending, one of our staff will call to schedule appt. PHARMACOTHERAPY for diabetes - Tresiba U-200 - inject 16 units daily at bedtime - Insulin aspart - inject 2-6 units three times daily before meals (do not use if BG <100 mg/dL - max 18 units/day) Let me know if they have any questions, ?? Darwin Encinas PharmD documented in this encounter Miscellaneous Notes * Result Encounter Note - Darwin Encinas PharmD - 08/20/2024 9:09 AM EDT Jens, please inform patient. Thank you! A1c - shows slight worsening in glycemic control (from 8.7% to 8.9%). Please high school counselor patient to use4-6 units of insulin aspart before dinner. Educate patient to continue to decrease high-carbohydrate foods (rice, bread, pasta, potatoes, starches), increase vegetable intake, and increase physical activity. I have issued a nutrition referral on 07/24/24 and it is still pending, one of our staff will call to schedule appt. PHARMACOTHERAPY for diabetes - Tresiba U-200 - inject 16 units daily at bedtime - Insulin aspart - inject 2-6 units three times daily before meals (do not use if BG <100 mg/dL - max 18 units/day) Let me know if they have any questions, ?? Darwin Encinas PharmD documented in this encounter Plan of Treatment Not on file documented as of this encounter Visit Diagnoses Diagnosis Type 2 diabetes mellitus with diabetic peripheral angiopathy without gangrene, with long-term current use of insulin ([facility]) documented in this encounter Additional Health Concerns Assessment Noted Time PHQ-9 Depression Total Score: 15 025 10:43 AM PDT documented as of this encounter Care Teams Portainer Operator Relationship Specialty Start Date End Date Massimo Mcclellan PA [address] [place] [address] PCP - General [facility] 05/13/22 documented as of this encounter
--- OUTSIDE RECORDS SUMMARY | 2024-08-26 12:11 | XMS_ITS | Clinical Summary ---
Author Organization [address] [facility] Address [address] [place] [address] Phone Care Team Providers Care Senior Java Developer Name Role Phone Massimo Mcclellan Primary Care Provider [phone] Allergies Active Allergy Reactions Criticality Noted Date [...] kidney disease) stage 3, GFR 30-59 ml/min ([facility] V24, [facility] V28) 11/07/2017 Esophageal varices ([facility] V24, [facility] V28) Overview (01/30/2024): 06/2106 EGD, Grade 1 Meniere disease 11/07/2017 Overview (01/30/2024): 2015 Dr Baker Osteopenia 11/07/2017 Pulmonary hypertension ([facility] V24, [facility] V28 ) 11/07/2017 Overview (01/30/2024): 2015 DAVID RVSP- 46 Tubular adenoma of colon 11/07/2017 Overview (01/30/2024): 2005 Type 2 diabetes mellitus wit h cataract ([facility] V24, [facility] V28) 11/07/2017 Fibromyalgia 08/29/2017 Hepatitis C 08/29/2017 Hyperlipidemia 08/29/2017 Hyperparathyroidism ([facility] V24) 08/29/2017 Hypertension 08/29/2017 Kidney stone 08/29/2017 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 Overview (01/30/2024): Never treated Seizure disorder ([facility] V24, [facility] V28) 08/09 Overview (01/30/2024): Not on medication Allergic rhinitis 08/23/2017 Anxiety 08/23/2017 Asthma 08/23/2017 Depression 08/23/2017 DM (diabetes mellitus), type 2 with renal complications ([facility] V24, [facility] V28) 08/23/2017 GERD (gastroesophageal reflux disease) 8 Insomnia 08/23/2017 Osteoarthritis 08/23/2017 Overview (01/30/2024): Lumbar spine Encounters Date Type Department Care Team Description 08/21/2024 1:15 PM EDT Office Visit Orthopedic Surgery [facility] [address] [phone] Florian Mott DPM Controlled type 2 diabetes with neuropathy ([facility] V24, [facility] V28) (Primary Dx); Pain in toes of both feet; Arthritis of both feet; Difficulty walking; Dermatophytosis, nail 06/28/2024 Telephone Orthopedic Surgery [facility] [address] [phone] Florian Mott DPM notes from Last 3 [...] Care Team (Late st Contact Info) Description 10/29/2024 2:00 PM EDT Office Visit Orthopedic Surgery [facility] [address] [phone] Florian Mott, DPJake [address] [address] Health Maintenance Due Date Last Done Comments [...] 03/13/2022 Social Influencers of Health Screening 03/13/2022 DTaP,Tdap,and Td Vaccines (3 - Td or Tdap) 05/12/2024 05/12/2014, 11/10/2010 COVID-19 Vaccine (8 - Pfizer risk season) 2024 12/27/2023, 02/14/2023, 05/25/2022, Additional history exists Diabetes: Annual GFR (Glomerular Filtration Rate) 10/24/2024 10/25/2023, 07/19/2017 Hypertension/CHF/CAD Annual BMP Blood Test 10/24/2024 10/25/2023, 07/19/2017 Diabetes: Blood Sugar Control Test (HGBA1C) 02/19/2025 08/19/2024, 10/25/2023 Depression Screening 08/19/2025 08/19/2024 Diabetes: Annual Urine Albumin-Creatinine Ratio (uACR) 08/19/2025 08/19/2024, 07/26/2023 Cholesterol Screening (Lipid Panel) 08/19/2029 08/19/2024, 08/19/2024, 05/08/2023, Additional history exists Pneumococcal Vaccine: 50+ Years Completed 05/12/2014, 11/10/2010, [...] Most Recently Relevant to Health Maintenance Insurance [employer] Member Subscriber Plan / Payer (Ef fective 2012-Present) Name:Leonie Corea Relation to Subscriber:Self Name:Leonie Corea Payer ID:[id number] Group ID:[id number] Type:Not on file Address: [place] [address] Advance Directives Documents on File Type Date Recorded 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
--- OUTSIDE RECORDS SUMMARY | 2024-08-26 12:11 | XMS_ITS ---
Author Organization [facility] Address [address] [place] [phone] Care Team Providers Care Boring Machine Operator Helper Name Role Phone RICKY GARZA, DAISY Primary Care Provider Unavailable Amor Dobbins Jr Unavailable REASON FOR VISIT no show Encounters Encounter Location Date Provider Diagnosis [facility] [address] [place] [phone] 09/18/2023 Amor Dobbins Jr Plan Of Treatment No Information Progress Notes * TOMMY CHOU EDOB:1945 (78 yo F)Acc No.[id number]:09/18/2023 Patient:?TOMMY CHOU :1945???Age:78 Y???Sex:Female Address:[address] [place] [address], [place] [address] * true * Date:? Generated for Printi ng/Georgetteg/eTransmitting on:?08/26/2024 12:10 PM EDT
--- OUTSIDE RECORDS SUMMARY | 2024-08-26 12:11 | XMS_ITS | Patient Health Record ---
Author Organization [facility] Address [address] [place] [address] Care Team Providers Care Wad Lubricator Name Role Phone Massimo Figueroa Primary Care Provider Unavail able Miguel A Layne Unavailable [phone] Allergies Allergen (clinical drug ingredient) Drug/Non Drug [...] Active Celecoxib 200 MG (Prior Auth: Rx Ref#:[id number]) Oral for 30 Not-Taking Tresiba Active DULoxetine HCl 60 MG (Prior Auth: Rx Ref#:[id number]) Oral for 30 Not-Taking NovoLOG Active Enalapril Maleate 10 MG (Prior Auth: Rx Ref#:[id number]) Oral for 90 Not-Taking Acetaminophen Extra Strength 500 MG (Prior Auth: Rx Ref#:[id number]) Oral for 13 Active Gabapentin 400 MG (Prior Auth: Rx Ref#:[id number]) Oral for 90 Not-Taking Albuterol Sulfate (2.5 MG/3ML) 0.083% (Prior Auth: Rx Ref#:[id number]) Inhalation for 10 Active Ferrous Sulfate 325 (65 Fe) MG 1 tablet Orally Once a day for 30 day(s) Not-Taking Capsaicin 0.025 % 1 application to affected area as needed Externally Three times a day Active Fluticasone Furoate 200 MCG/ACT 1 puff Inhalation Once a day Active hydroCHLOROthiazide 12.5 MG (Prior Auth: Rx Ref#:[id number]) Oral for 30 Active Polyethylene Glycol 3350 - as directed Active Flunisolide 25 MCG/ACT (0.025%) (Prior Auth: Rx Ref#:[id number]) Nasal for 25 Active Extra Depth Orthopedic Shoes (1 Pair) with Customized Heat Molded Multidensity Innersoles (3 Pair) as directed Dx: IDDM/Polyneuropathy (E10.42), Hammertoe Foot Deformity (M20.41,M20.42), Preulcerative Skin Lesion(s) (L85.1) 01/12/2023 Active Loratadine 10 MG (Prior Auth: Rx Ref#:[id number]) Oral for 90 Active Montelukast Sodium 10 MG (Prior Auth: Rx Ref#:[id number]) Oral for 30 Active oxyCODONE HCl 5 MG (Schedule II Drug) (Prior Auth: Rx Ref#:[id number]) Oral for 28 Active Pantoprazole Sodium 40 MG (Prior Auth: R x Ref#:[id number]) Oral for 30 Active Pravastatin Sodium 10 MG (Prior Auth: Rx Ref#:[id number]) Oral for 30 Active Aspirin Low Dose 81 MG (Prior Auth: Rx Ref#:[id number]) Oral for 90 Not-Taking Citracal + D [...] Problem Acquired hammer toe of right foot (4161402650186275 ) Other hammer toe(s) (acquired), right foot (M20.41) Active confirmed Problem Acquired hammer toe of left foot (7210231962817500 ) Other hammer toe(s) (acquired), left foot (M20.42) Active confirmed Problem Polyneuropathy due to diabetes mellitus type I (582016149) Type 1 diabetes mellitus with diabetic polyneuropathy (E10.42) Active confirmed Plan Of Treatment Pending Test Test Name Order Date X ray : Foot, left 3V 12/18/2018 X ray : Foot, right 3V 12/18/2018 [id number] NAIL, 6 OR MORE 11/10/2021 [id number] NAIL, 6 OR MORE 01/12/2023 [id number]-[id number] SKIN LESIONS, OVER 4 01/13/20 23 65310-FQQE SKIN LESIONS, OVER 4 11/11/19 22 40863-DPGV SKIN LESIONS, OVER 4 09/19/19 19 77124-GDFY SKIN LESIONS, OVER 4 12/19/19 19 59542-PUEZ SKIN LESIONS, OVER 4 03/26/20 19 22761-JQJO SKIN LESIONS, OVER 4 09/09/19 21 62817-SHNT SKIN LESIONS, OVER 4 06/12/19 22 Insurance Providers Payer Name Payer Address Payer Phone Subscriber Number Group Number Insured Name Patient Relationship to Insured Coverage Start Date Coverage End Date [facility] [employer] Claims [address] [place] [phone] [facility] [id number] Leonie Corea Self - patient is the [...] History Reason Date(Month/Year) [facility]- check her heart [facility] for kidney stones 05/01
--- OUTSIDE RECORDS SUMMARY | 2024-08-26 12:11 | XMS_ITS | Clinical Summary ---
Author Organization [facility] Address [address] [place] [address] Care Team Providers Care Cd Reactor Operator Head Name Role Phone Massimo Mcclellan Primary Care Provider [phone] Source Comments PLEASE NOTE, if this patient [...] asthma, unspecified asthma severity, unspecified whether persistent ([facility]) Inhale 2 Puffs into the [...] (NARCAN) 4 mg/actuation nasal spray Place 1 Mobile into the nostril(s) as needed for opioid [...] 2023 Active triamcinolone (KENALOG) 0.025 % cream [facility]/pharmacy #[id number] [place], [place] [phone] 60 g 0 Days Supply: 10Sig: APLIQUE AL JACOBO AFECTADA TOPICALLY DOS VECES AL D A POR 10 D ASSource: 2 Outside SourcesAuthorized by: THO HERNANDEZ 2023 Active montelukast (SINGULAIR) 10 mg tablet Take 1 Tablet by mouth nightly at bedtime (Prescribed by safety and occupational health manager Dr. Berkowitz) 2023 Active ondansetron ODT (ZOFRAN-ODT) [...] mouth 2 (two) times Daily (Prescribed by safety and occupational health manager - Dr. Michael Berkowitz) 2023 Active levocetirizine (XYZAL) 5 mg tablet Take 1 Tablet by mouth every evening [facility]/pharmacy #[id number] [place], [place] [phone] 90 Each 0 Days Supply: 90Sig: TAKE [...] current use of insulin ([facility]) Inject 16 Units into the skin nightly at bedtime Increased dosing 9 mL 5 2024 Active glucose 4 gram chewable tabletIndication s:Type 2 diabetes mellitus with diabetic peripheral angiopathy without gangrene, with long-term current use of insulin ([facility]) Place 4 Tablets into mouth, chew and swallow as needed for low blood sugar (Less than 90 mg/dL) 30 Tablet 5 2024 Active esomeprazole (NEXIUM) [address] [...] gangrene, with long-term current use of insulin ([facility]),Mixed hyperlipidemia Take 1 Tablet by mouth nightly at bedtime stop pravastatin 10 mg 90 Tablet 1 2024 Active isosorbide mononitrate ER (IMDUR) 30 mg 24 hr tabletIndication s:Primary hypertension,Per ipheral venous insufficiency TOME GAGE TABLETA POR VIA ORAL CADA MANANA 90 Tablet 2 2024 Active pen needle, diabetic 31 gauge x 08/23 ndleIndications: Type 2 diabetes mellitus with diabetic peripheral angiopathy without gangrene, with long-term current use of insulin ([facility]) Use to inject insulin up to 4 times daily. 200 Each 11 2024 Active busPIRone (BUSPAR) 15 mg tablet TAKE 1/3- 1/2 HALF TABLET IN THE MORNING AND IN P.M. NEEDED & 1 TAB AT AL ACOSTARSE 180 Tablet 2 2024 Active baclofen 5 mg tab TAKE 1 TABLET TWICE DAILY NEEDED FOR MUSCLE SPASMS 180 Tablet 1 2024 Active oxyCODONE (ROXICODONE) 10 mg tab tabletIndication s:Sciatica, unspecified laterality,Osteo arthritis, unspecified osteoarthritis type, unspecified site,Fibromyalgi a,Peripheral venous insufficiency,Ce rvical pain (neck),Myofascia l muscle pain Take 1 Tablet by mouth every 6 to 8 (six to eight) hours NEEDED FOR SEVERE PAIN!! 120 Tablet 2024 Active insulin aspart (NOVOLOG FLEXPEN U-100 INSULIN) 100 unit/mL (3 mL)Indications:T ype 2 diabetes mellitus with diabetic peripheral angiopathy without gangrene, with long-term current use of insulin ([facility]) Inject 0-16 Units into the skin 3 (three) times daily before meals (Do not use if blood glucose is less than 100 mg/dL) - max 48 units/day 15 mL 5 2024 Active busPIRone (BUSPAR) 15 mg tablet TAKE 1/3- 1/2 HALF TABLET IN THE MORNING AND IN P.M. NEEDED & 1 TAB AT AL ACOSTARSE 180 Tablet 2 08/05 Discontinued( Reorder (E-Cancel Not Sent)) insulin aspart (NOVOLOG FLEXPEN U-100 INSULIN) 100 unit/mL (3 mL)Indications:T ype 2 diabetes mellitus with diabetic peripheral angiopathy without gangrene, with long-term current use of insulin ([facility]) Inject 2-6 Units into the skin 3 (three) times daily before meals (Do not use if blood glucose is less than 100 mg/dL) - max 18 units/day 15 mL 3 08/21 Discontinued( Reorder (E-Cancel Not Sent)) baclofen 5 mg tab TOME GAGE TABLETA POR VIA ORAL CADA SEIS A OCHO HORAS CUANDO SEA NECESARIO PARA ESPASMOS MUSCULARES 360 Tablet 1 08/05 Discontinued oxyCODONE (ROXICODONE) 10 mg tab tabletIndication s:Sciatica, unspecified laterality,Osteo arthritis, unspecified osteoarthritis type, unspecified site,Fibromyalgi a,Peripheral venous insufficiency,Ce rvical pain (neck),Myofascia l muscle pain Take 1 Tablet by mouth every 6 to 8 (six to eight) hours as needed for pain 112 Tablet 08/20 Discontinued( Reorder (E-Cancel Not Sent)) Active Problems [...] syndrome 08/08/2022 08/09/19 23 Diabetic peripheral angiopathy ([facility]) 023 08/08/2022 Dry skin 08/08/2022 08/08/2022 Dysphagia 08/08/2022 08/08/2022 Incontinence of urine 08/08/2022 08/08/2022 Early onset Alzheimer's dementia (HCC-CMS) 08/0808/08/2022 Epigastric pain 08/08/2022 08/08/2022 Left ventricular hypertrophy 08/08/202204/2022 Overview (03/05/2024): 12/20/23 at [facility] Cardio Chest pain Improved with Imdur; [...] may be normal for the patient's age. 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 left catarct surgery on 08/28/08 by SURGEON: Tana Coronado M.D. CKD (chronic kidney disease) stage 3, GFR 30-59 ml/min ([facility]) 11/07/2017 08/08/2022 Meniere disease 11/07/2017 08/08/2022 Overview (08/08/2022): 2016 Dr Baker Pulmonary hypertension ([facility]) 11/07/2017 08/08/2022 Overview (08/08/2022): b/l submassive PE diagnosed on Dec 20 in [facility] b/l submassive PE diagnosed on Dec 20 in [facility] 2016 DAVID RVSP- 46 Tubular adenoma of colon 11/07/2017 023 Overview (08/08/2022): 2005 Hyperparathyroidism ([facility]) 08/29/2017 Overview (08/08/2022): Right lower parathyroidectomy. 06/16/08 SURGEON: Danny Marie M.D. DENTAL LABORATORY TECHNOLOGY TEACHER: Naima Bowling M.D. Kidney stone 08/29/2017 08/08/2022 Hyperlipidemia LDL goal <70 08/29/201704/2022 Essential hypertension 08/29/2017 Seizure disorder ([facility]) 08/29/201708/08 Overview (08/08/2022): Not on medication Viral hepatitis C 08/29/2017 08/08/2022 Osteoarthrosis 08/23/2017 08/08/2022 Overview (08/08/2022): EGD on 06/24/16 by GI, Dr Damien caballero gastritis and esophageal varices grade 1 Lumbar spine Allergic rhinitis 08/23/2017 08/08/2022 Depression 08/23/2017 08/08/2022 Asthma-chronic obstructive p ulmonary disease overlap syndrome (HCC-CMS) 08/23/2017 08/08/2022 Type 2 diabetes mellitus wit h diabetic peripheral angiopathy without gangrene, with long-term current use of insulin ([facility]) 08/23/2017 08/08/2022 Overview (07/24/2024): DM dx: 51 [...] (11/10/10, 05/20/04) Diabetes foot exam: 04/25/24 at [facility] - notes on file 02/21/24 at [facility] - notes on file Diabetes retinal [...] new glasses RX, optional F/U 1 year [facility] Endocrinology: 11/24/22 Start Tradjenta 5 mg [...] 12/2015, involving 2 of 2 peroneal veins, [facility] General History of pulmonary embolism 07/19/2017 Overview (08/08/2022): Bilateral, 12/2015, [facility] Tricuspid valve insufficiency 05/24/2017 Overview (03/05/2024): 12/20/23 at [facility] Cardio Chest pain Improved with Imdur; [...] dysfunction 05/24/2017 08/08/2022 Overview (03/05/2024): 12/20/23 at [facility] Cardio Chest pain Improved with Imdur; [...] normal for the patient's age. Esophageal varices ([facility]) 06/24/201604/2022 Overview (08/08/2022): endoscopy 10/05/2018 w non bleeding grade 1 esophageal varicesEGD on 06/24/16 by GI, Dr Damien caballero gastritis and esophageal varices grade 1 06/2106 EGD, Grade 1 endoscopy 10/05/2018 w non bleeding grade 1 esophageal varicesEGD on 06/24/[address] Damien CARUSO gastritis and esophageal varices grade 1 Right ventricular dilation 12/22/201508/08 Overview (08/08/2022): TTE 12/22/15 in [facility]: RV dilatation, RVSP 46 TTE 12/22/15 in [facility]: RV dilatation, RVSP 46 Anemia 12/21/2015 08/08/2022 Deep vein thrombosis (DVT) ([facility]) 12/21/2015 08/08/2022 Overview (08/08/2022): LE US- DVT involving 2 of 2 peroneal veins diagnosed on Dec 20 [facility] LE US- DVT involving 2 of 2 peroneal veins diagnosed on Dec 20 [facility] Positive PPD 10/09/2014 08/08/2022 Overview (08/08/2022): [...] with no stenosis. Minor degenerative changes elsewhere. 6/6/12 lumbar MRI Small central and superior disc extrusion at T12/L1 of doubtful clinical significance. 3 mm L4/5 spondylolisthesis without stenosis or focal nerve root compression.Minor degenerative changes.MRI lumbar 02/29/08 transitional sacralized L5 segment. Minimal L4/ L5 spondylolisthesis and moderate facet arthropathy with no stenosis. Minor degenerative changes elsewhere. Peripheral venous insufficiency 10/31/2011 08/08/2022 Diabetic neuropathy ([facility]) 09/19/2007 Sciatica 05/24/2004 08/08/2022 Tubular adenoma 04/10/2004 08/08/2022 Overview (08/08/2022): catherine colo July 2009 exc for 2 hyperplastic polypsColonoscopy 2004 at [facility] [place] per letter of Dr Amor Dobbins Tubular adenoma 04/10/2004 08/08/2022 Overview (08/08/2022): [facility] colo July 2009 exc for 2 hyperplastic polypsColonoscopy 2004 at [facility] [place] per letter of Dr Amor Dobbins Resolved Problems Problem Noted Date Diagnosed Date Resolved Date Obesity 08/08/2022 08/08/2022 07/24/2024 Encounters Date Type Department Care Team Description 08/20/2024 Results Follow-Up [address] [phone] Darwin nEcinas, GeovannyD HEMOGLOBIN GLYCOSYLATED A1C 07/24/2024 3:40 PM EDT Telemedicine Visit [address] [phone] Darwin Encinas, PharmD Type 2 diabetes mellitus with diabetic peripheral angiopathy without gangrene, with long-term current use of insulin ([facility]) (Primary Dx); Essential hypertension; Hyperlipidemia LDL goal <70 06/06/2024 3:20 PM EST Telemedicine Visit [address] [phone] Mark Morales NP Cervical pain (neck) (Primary Dx); Fibromyalgia from Last 3 Months Immunizations Immunization Administration Dates Next Due [facility]-19,SARS-COV-2 VACCINE, UNSPECIFIED (US Admin) 05/25/2022,09/15/2021 Flu, High [...] Hepatocellular Carcinoma Scr eening (HCC) 04/23/2023 10/21/2022 Imm-DTaP/Tdap/Td (2 - Td or Tdap) 05/12/2024 05/12/2014, 11/10/2010, 11/10/2010 Znv-AVRBK-28 ( season) 2024 12/27/2023, 02/14/2023, 05/25/2022, Additional history exists Tobacco Screening 08/24/2024 06/06/2024, 08/25/2023 Diabetes Foot Exam 10/24/2024 10/25/2023 Falls Prevention 10/24/2024 10/25/2023 Serum Creatinine 10/24/2024 10/25/2023, 04/2022, 12/25/2015 TSH Monitoring 10/24/2024 10/25/2023, 08/08/2022 Depression Monitoring 11/19/2024 08/19/2024 , 10/25/2023, 05/08/2023, Additional history exists Diabetes HbA1c 11/19/2024 08/19/2024, 04/10, 10/25/2023, Additional history exists Medicare Annual Wellness Visit 12/26/2024 12/27/2023 , 08/08/2022 EGD (Upper Endoscopy) 08/08/2025 08/08/2022 Lipid Screening 08/19/2025 08/19/2024, 04/11, 12/23/2015 Urine Albumin Creatinine Rat io Screening 08/19/2025 08/19/2024, 07/26/2023 Imm-Pneumococcal 65+ Completed 05/12/2014, 11/10/2010, 05/20/2004 Imm-Zoster, Recombinant Completed 12/09/19, 09/15/2021, 10/16/2012 Bone Density Screening Completed 11/22/2022 Imm-Influenza Completed 12/27/2023, 04/11, 02/04/2023, Additional history exists Retinopathy Screening Discontinued 04/24/2024, 025 Alcohol and Drug Screen Completed 05/06/19, 05/08/2023, 05/08/2023, Additional history exists Procedures Procedure Name Priority Date/Time Associated Diagnosis Comments LIPID PANEL Routine 08/19/2024 9:25 AM EDT Type 2 diabetes mellitus with diabetic peripheral angiopathy without gangrene, with long-term current use of insulin ([facility]) Hyperlipidemia LDL goal <70 VITAMIN B12 & FOLATE Routine 08/19/2024 9:25 AM EDT Type 2 diabetes mellitus with diabetic peripheral angiopathy without gangrene, with long-term current use of insulin ([facility]) MICROALBUMIN/CREATINI NE RATIO, URINE, RANDOM Routine 08/19/2024 9:25 AM EDT Type 2 diabetes mellitus with diabetic peripheral angiopathy without gangrene, with long-term current use of insulin ([facility]) HEMOGLOBIN GLYCOSYLATED A1C Routine 08/19/2024 9:25 AM EDT Type 2 diabetes mellitus with diabetic peripheral angiopathy without gangrene, with long-term current use of insulin ([facility]) IMAGING SCANNED DOCUMENT 08/09/2024 3:00 AM EDT IMAGING SCANNED DOCUMENT 08/09/2024 3:00 AM EDT REFERRAL SCANNED DOCUMENT 07/24/2024 3:00 AM EDT REFERRAL SCANNED DOCUMENT 07/19/2024 3:00 AM EDT OTHER ORDERS SCANNED DOCUMENT 07/01/2024 3:00 AM EDT REFERRAL SCANNED DOCUMENT 06/19/2024 3:00 AM EDT EYE EXAM 04/24/2024 3:00 AM EST TSH W/RFLX FREE T4 Routine 10/25/2023 11 :27 AM EDT Hyperparathyroidism ([facility]) Prediabetes COMPREHENSIVE METABOLIC PANEL Routine 10/25/2023 11:27 AM EDT Cirrhosis of liver without ascites, unspecified hepatic cirrhosis type ([facility]) Hyperparathyroidism ([facility]) Type 2 diabetes mellitus with diabetic peripheral angiopathy without gangrene, with long-term current use of insulin ([facility]) Diabetic mononeuropathy associated with type 2 diabetes mellitus ([facility]) Hepatitis C virus infection without hepatic coma, unspecified chronicity Resistant hypertension HISTORIC DEXA SCAN 11/22/2022 3: 00 AM EDT US ABDOMEN ULTRASOUND Routine 10/21/2022 3:00 AM EDT Abdominal pain, unspecified abdominal location UPPER GI ENDOSCOPY Routine 08/08/2022 11 :41 AM EDT Varices of esophagus determined by endoscopy ([facility]) from Last 3 Months or Most Recently Relevant to Health Maintenance Results * MICROALBUMIN/CREATININE RATIO, URINE, RANDOM (08/19/2024 9:25 AM EDT) [facility] CREATININE, RANDOM URINE 109 20 - 275 mg/dL [facility] MICROALBUMIN 2.0 mg/dL [employer] [facility] Comment: Reference Range Not established MICROALBUMIN/CREA TININE RATIO, RANDOM URINE 18 <30 mg/g creat [facility] Comment: The ADA defines abnormalities in albumin [...] diagnostic category. Urine Urine specimen / Unknown 08/19/2024 9:25 AM EDT 08/19/2024 9:25 AM EDT Narrative [employer] - 08/20/2024 9:19 PM EDT FASTING:YES Darwin Encinas PharmD LAB URINE AMBULATORY Rubi l Result [employer] [facility] [address] [place] [id number], [facility] [address] [place] [phone] * VITAMIN B12 & FOLATE (08/19/2024 9:25 AM EDT) VITAMIN B12 623 200 - 1,100 pg/mL [facility] FOLATE, SERUM 20.0 5.5 ng/mL [employer] [facility] Comment: ? Reference Range ? Low: ? <3.4 ? Borderline: ?3.4-5.4 ? Normal: ?>5.4 Blood Blood / Unknown 08/19/2024 9 :25 AM EDT 08/19/2024 9:25 AM EDT Narrative [employer] - 08/20/2024 9:19 PM EDT FASTING:YES [employer] Darwin Escobarlois PharmD LAB - BLOOD DRAW Edited R shopandsaveult - Final Performing Organization Address [facility] Co de Phone Number [facility] [address] [address], [place] [address] [phone] * (ABNORMAL) HEMOGLOBIN GLYCOSYLATED A1C (08/19/2024 9:25 AM EDT) HEMOGLOBIN A1C 8.9(H) <5.7 % [employer] [facility] Comment: For someone without known diabetes, a [...] for children. ?? Blood Blood / Unknown 08/19/2024 9 :25 AM EDT 08/19/2024 9:25 AM EDT Narrative [employer] [facility] - 08/20/2024 9:19 PM EDT FASTING:YES [employer] [place] PharmD LAB - BLOOD DRAW Edited R [employer]aveult - Final Performing Organization Address [facility] Co de Phone Number [facility] [address] [address], [place] [address] [phone] * LIPID PANEL (08/19/2024 9:25 AM EDT) CHOLESTEROL, TOTAL 155 <200 mg/dL [facility] HDL CHOLESTEROL 57 > OR = 50 mg/dL [facility] TRIGLYCERIDES 97 <150 mg/dL [facility] LDL-CHOLESTEROL 80 99 mg/dL (calc) [facility] Comment: Reference range: <100 Desirable range <100 mg/dL for primary prevention; ?? <70 mg/dL for patients with CHD or diabetic patients with > or = 2 CHD risk factors. LDL-C is now calculated using the Alvarez calculation, which is a validated novel method providing better accuracy than the Friedewald equation in the estimation of LDL-C. Gilles SS et al. JESUS. 2013;310(74): 6765-2350 (http://education.stylefruits/faq/DTT882) CHOL/HDLC RATIO 2.7 <5.0 (calc) [facility] NON-HDL CHOLESTEROL 98 <130 mg/dL (calc) [facility] Comment: For patients with diabetes plus 1 major ASCVD risk factor, treating to a non-HDL-C goal of <100 mg/dL (LDL-C of <70 mg/dL) is considered a therapeutic option. Blood Blood / Unknown 08/19/2024 9 :25 AM EDT 08/19/2024 9:25 AM EDT Narrative [employer] - 08/20/2024 9:19 PM EDT FASTING:YES us Darwin SmallD LAB - BLOOD DRAW Final Re sult [employer] [address] [place] [address], [facility] [address] [place] [phone] * IMAGING SCANNED DOCUMENT (08/09/2024 3:00 AM EDT) Only the most recent of2 resultswithin the time period is included. 08/09/2024 3:00 AM EDT us Massimo Mcclellan PA SCAN IMAGING Final Result * REFERRAL SCANNED DOCUMENT (07/24/2024 3:00 AM EDT) Only the most recent of3 resultswithin the time period is included. 07/24/2024 3:00 AM EDT Result [facility] SCAN REFERRAL Final Result * OTHER ORDERS SCANNED DOCUMENT (07/01/2024 3:00 AM EDT) 07/01/2024 3:00 AM EDT us Massimo [facility] SCAN OTHER ORDERS Final Result * EYE EXAM (04/24/2024 3:00 AM EST) 04/24/2024 3:00 AM EST us Massimo [facility] OTHER Edited Result - Final * TSH W/RFLX FREE T4 (10/25/2023 11:27 AM EDT) TSH W/REFLEX TO FT4 2.80 0.40 - 4.50 mIU/L [facility] Blood Blood / Unknown 10/25/2023 1 1:27 AM EDT 10/25/2023 11:27 AM EDT Result [facility] LAB - BLOOD DRAW Final Result [employer] [facility] [address] [place] [id number], [facility] [address] [place] [phone] * (ABNORMAL) COMPREHENSIVE METABOLIC PANEL (10/25/2023 11:27 AM EDT) GLUCOSE 118(H) 65 - 99 mg/dL [facility] Comment: ?Fasting reference interval For someone without known diabetes, a glucose value between 100 and 125 mg/dL is consistent with prediabetes and should be confirmed with a follow-up test. UREA NITROGEN (BUN) 16 7 - 25 mg/dL [facility] CREATININE (blood) 0.85 0.60 - 1.00 mg/dL [facility] EGFR 70 > OR = 60 mL/min/1. 73m2 [facility] BUN/CREATININE RATIO SEE NOTE: [employer] [facility] Comment: ?? Not Reported: BUN and Creatinine are within ?? reference range. ? SODIUM 142 135 - 146 mmol/L [facility] POTASSIUM 4.8 3.5 - 5.3 mmol/L [facility] CHLORIDE 104 98 - 110 mmol/L [facility] CARBON DIOXIDE 29 20 - 32 mmol/L [facility] CALCIUM 9.5 8.6 - 10.4 mg/dL [facility] PROTEIN, TOTAL 7.0 6.1 - 8.1 g/dL [facility] ALBUMIN 4.3 3.6 - 5.1 g/dL [facility] GLOBULIN 2.7 1.9 - 3.7 g/dL (calc) [facility] ALBUMIN/GLOBULI N RATIO 1.6 1.0 - 2.5 (calc) [facility] BILIRUBIN, TOTAL 0.5 0.2 - 1.2 mg/dL [facility] ALKALINE PHOSPHATASE 87 37 - 153 U/L [facility] AST 16 10 - 35 U/L [facility] ALT 10 6 - 29 U/L [facility] Blood Blood / Unknown 10/25/2023 1 1:27 AM EDT 10/25/2023 11:27 AM EDT us Massimo PACHECO LAB - BLOOD DRAW Final Result [facility] [address] [address], [facility] [address] [phone] * HISTORIC DEXA SCAN (11/22/2022 3:00 AM EDT) 11/22/2022 3:00 AM EDT us Massimo PACHECO IMG DXA Final Result * US ABDOMEN ULTRASOUND (CAPE COD) (10/21/2022 3:00 AM EDT) 10/21/2022 3:00 AM EDT Massimo PACHECO IM ULTRASOUND Edited Result - Final from Last 3 Months or Most Recently Relevant to Health Maintenance Insurance [facility] Member Subscriber Plan / Payer ( fective 2017-Present) Name:Leonie Corea Relation to Subscriber:Self Name:Leonie Corea Payer ID:[id number] Group ID:Not on file Type:Medicare Address: [place] [id number] [place] [id number] [facility] Member Subscriber Plan / Payer ( fective 2012-Present) Name:Leonie Corea Relation to Subscriber:Self Name:Leonie Corea Payer ID:[id number] Group ID:Not on file Type:Indemnity Address: [address] [place] [address] Care Teams Cd Reactor Operator Head Relationship Specialty Start Date End Date Massimo Mcclellan PA [address] [place] [address] PCP - General [facility]IN[facility] 05/13/22
--- OUTSIDE RECORDS SUMMARY | 2024-08-26 12:11 | XMS_ITS | Encounter Summary ---
Author Organization [facility] Address [address] [place] [address] Care Team Providers Care Electronic Communications Technician Name Role Phone Massimo Mcclellan Primary Care Provider [phone] Reason for Visit * Reason Comments DM Foot Care Encounter Details Date Type Department Care Team (Late st Contact Info) Description 08/21/2024 1:15 PM EDT Office Visit Orthopedic Surgery - [place] [address] [phone] Florian Mott DPM [address] [address] Controlled type 2 diabetes with neuropathy (CMS/HCC V24, CMS/HCC V28) (Primary Dx); Pain in toes of [...] on file documented as of this encounter Progress Notes * Florian Mott DPM - 08/21/2024 1:15 PM EDT Referring MD: leora Last PCP visit: 12/28/2023 IDENTIFIER: Nahomy is a 79 y.o. year old female who presents for consultation. CC: Bilateral foot pain HPI: 79-year-old female returns to office with multiple forefoot deformities Patient states that they have been diabetic for the past few years and has some continued tingling numbness in her feet bilaterally Patient denies any recent ulcerations or infections Patient continues to have nails that are thickened and misshapened causing sores on adjacent digits Patient is wearing good supportive shoes at this time. Patient reports mild calluses that are becoming bothersome. Patient with minimal other pedal complaints at this time. Patient's FBS this AM was 162 Recent A1C is %. 8.3 ROS: GENERAL: [...] 3, GFR 30-59 ml/min ([facility] V24, [facility] V28) Depression DM (diabetes mellitus), type 2 with renal complications ([facility] V24, CMS/[facility] V28) Esophageal varices ([facility] V24, [facility] V28) Fibromyalgia GERD (gastroesophageal reflux disease) Hepatitis C Hyperlipidemia Hyperparathyroidism ([facility] V24) Hypertension Insomnia Kidney stone Meniere disease Osteoarthritis Osteopenia Positive PPD Pulmonary hypertension ([facility]/HCC V24, CMS/HCC V28) Seizure disorder (CMS/[facility] V24, CMS/[facility] V28) Tubular adenoma of colon Type 2 diabetes mellitus with cataract ([facility] V24, [facility] V28) SOCIAL HISTORY: Social History Tobacco Use Smoking status: Not on file Smokeless tobacco: Not on file Substance Use Topics Alcohol use: Not on file ACTIVE MEDICATIONS: No outpatient medications have been marked as taking for the 08/21/24 encounter (Office Visit) with Florian Mott DPM. ALLERGIES: @ALL@ PHYSICAL EXAM: There were no vitals taken for this visit. PODIATRIC EXAMINATION: GENERAL: Patient appears well nourished, with NAD. VASCULAR: Dorsalis pedis pulses are 2/4 bilaterally and Posterior tibial pulses are 2/4 bilaterally. Capillary filling time within normal limits the digits. No pallor on elevation or rubor on dependency. Positive hair growth. No varicosities. Denies rest pain or claudication pain. NEUROLOGICAL: Sharp/dull sensation intact, protective sensation intact on [place]. Multiple peripheral neuropathies bilaterally ORTHOPEDIC: Good muscle [...] 1. Controlled type 2 diabetes with neuropathy (CMS/HCC V24, CMS/HCC V28) 2. Pain in toes of both feet 3. Arthritis of both feet 4. Difficulty walking 5. Dermatophytosis, nail PLAN: Pt was seen and examined, history reviewed. Patient reeducated that she needs to control her sugar as well as possible to limit chances for nonhealing wounds in the future Patient informed about the arthritic changes in her foot and the flareups that she gets from time to time. Patient understands that the safest way to treat these is a topical analgesic such as Voltaren gel Patient was encouraged to continue with the [...] 2:00 PM EDT Office Visit Orthopedic Surgery - [place] [address] [phone] Florian Mott, DPM [address] [address] documented as of this encounter Visit Diagnoses Diagnosis Controlled type 2 diabetes with neuropathy (CMS/[facility] V24, CMS/[facility] V28)- Primary Type II or unspecified type diabetes mellitus with neurological manifestations, not stated as uncontrolled Pain in toes of both feet Arthritis of both feet Difficulty walking Difficulty in walking Dermatophytosis, nail Dermatophytosis of nail documented in this encounter Care Teams Electronic Communications Technician Relationship Specialty Start Date End Date Massimo Mcclellan PA [address] [place] [address] PCP - General 11/24/23 documented as of this encounter
== END 2024-08-26 12:15 | disposition home or self-care (01) ==
LOC: HO.HNS 11:28
PROVIDERS: PCP Physician Assistant; Visit Provider Physician Assistant
DX: Z98.1 Arthrodesis status (principal)
CPT/HCPCS: 99212

== ENCOUNTER → 2024-08-26 11:28 | Outpatient (BNVA) | payer OTHER, SELFPAY | PROVIDERS: PCP Physician Assistant; Visit Provider Physician Assistant | DX: Z98.1 Arthrodesis status (principal) | CPT/HCPCS: 99212 ==

== ENCOUNTER 2024-08-29 | Outpatient (REF) | payer OTHER, SELFPAY ==
--- OUTSIDE RECORDS SUMMARY | 2024-01-17 07:20 | XMS_ITS ---
Author Organization [facility] Address [address] [place] [phone] Care Team Providers Care Concrete Paving Supervisor Name Role Phone RICKY GARZA, DAISY Primary Care Provider Amor Gutierrez Jr REASON FOR VISIT INTESTINAL ISSUES Encounters Encounter Location Date Provider Diagnosis [facility] [address] [facility] [address] [place] [phone] 01/17/2024 Amor Dobbins Jr Plan Of Treatment No Information Progress Notes * TOMMY CHOU EDOB:1945 (79 yo F)Acc No.[id number]:01/17/2024 Progress Notes Patient: TOMMY MICHELLE Provider: Francie Dobbins MD :1945 A ge:78 Y S ex:Female Date:01/17/2024 Address:[address] [place], [place] [phone] Pcp:Jake GALEANO Subjective: * Chief Complaints: * [...] 1 Generated for Printi ng/Faxing/eTransmitting on: 0 10/08/2024 07:39 AM EDT
--- OUTSIDE RECORDS SUMMARY | 2024-08-28 13:50 | XMS_ITS ---
Author Organization [facility] Address [address] [place] [phone] Care Team Providers Care Security Escort Name Role Phone RICKY GARZA, DAISY Primary Care Provider Unavailable Amor Dobbins Jr REASON FOR VISIT INTESTINAL ISSUES Encounters Encounter Location Date Provider Diagnosis [facility] [address] [facility] [address] [place] [phone] 01/17/2024 Amor Dobbins Jr Plan Of Treatment No Information Progress Notes * TOMMY CHOU EDOB:1945 (79 yo F)Acc No.[id number]:01/17/2024 Progress Notes Patient:?EFFIE TOMMY Arlin Provider:?Amor Dobbins MD :1945???Age:78 Y???Sex:Female D ate:01/17/2024 Address:[address] [place], [place] [phone] Pcp:Jake GALEANO Subjective: * Chief Complaints: * [...] Dobbins MD Date:?1 Generated for Bradyi juvenal/Fapurvi/eTransmitting on:?08/28/2024 01:50 PM EDT
--- OUTSIDE RECORDS SUMMARY | 2024-08-28 13:51 | XMS_ITS | Data Portability ---
Author Organization [facility] [employer] Address [address] [place] [phone] Care Team Providers Care Ticket Taker Ferryboat Name Role Phone MARCIUNIQUEFELY Primary Care Provider HIM CCA OTHER Assessment Encounter Date Assessment Date Assessment LastModified by Organization Details LastModified Time 02/29/2024 02/29/2024 Evaluation in the field was performed by my electronic imaging system operator colleague, as noted above, I provided real-time [...] Assessment and Plan as documented by the Anesthesiology Technologist. Patient given the opportunity to ask questions. Our service contacted for an assessment of: Urinary frequency As per above, patient with approximately several days of urinary frequency. Denies dysuria, abdominal pain, suprapubic pain, flank pain, fever, chills. Does have diabetes and sugars have been running high. Does not specifically endorse polydipsia. No history of frequent urinary tract infections Per electronic imaging system operator on the scene, vital signs are [...] recorded. Lab urinalysis, dipstick 2023 [facility], [address] [place] [address], [id number] 4 19:24:48 culture, urine 2023 [facility] (Centralized Electronic Ordering - All Locations), Patient Can Go To The Location Of Their Choice, [id number] 5 20:05:30 urinalysis, dipstick 2023 [facility], [address] [place] [address], [id number] 4 18:47:22 culture, urine 2023 [facility] (Centralized Electronic Ordering - All Locations), Patient Can Go To The Location Of Their Choice, [address] 4 22:06:00 Referral None recorded. Procedures None recorded. Surgeries None recorded. Imaging None recorded. Medication Orders cefuroxime axetil 500 mg tablet 2023 [facility][id number], [address] [place], [address], 17:49:37 Patient TargetsNo targets recorded. Patient InstructionsNo instructions recorded. Reason for Referral None Reported. Results Created Date Observation Date Name Description Value Unit Range Abnormal Flag Note LastModifiedBy Organization Detail LastModifiedTime 02/29/20 24 03/01/2024 URINE CULTU RE, ROUTI NE urine culture, routine Final report Not Available [facility] ([facility]) [address] [place], [address], 03/01/2024 22:06:00 02/29/20 24 03/01/2024 URINE CULTU RE, ROUTI NE result 1 No growth Not Available [facility] ([facility]) [address] [place], [address], 03/01/2024 22:06:00 04/09/20 24 04/10/2024 URINE CULTU RE, ROUTI NE urine culture, routine Final report Not Available [facility] ([facility]) [address] [facility], [place], [address], 04/10/2024 20:05:30 04/09/20 24 04/10/2024 URINE CULTU RE, ROUTI NE result 1 No growth Not Available [facility] ([facility]) [address] [place], [address], 04/10/2024 20:05:30 Result Notes None recorded. Medical Equipment None Reported. Allergies Allergen ID Allergen Name Allergen Category Reaction Reaction Severity Criticality Documentation Date Start Date Code Code System Note Provider Name and Address Organization Details Recorded Time 84457 enalapril Not available Not available Not available Not available 02/29/2024 3827 RxNorm Not Available [facility] - production 11:30:38 9685 Product containin g penicilli n (product) medicatio n Not available Not available Not available 02/06/2024 49976 8001 SNOMED Not Available [facility] - production 04:14:41 9686 lidocaine medicatio n Not available Not available Not available 02/06/2024 6387 RxNorm Not Available [facility] - production 4 04:14:41 9687 morphine medicatio n Not available Not available Not available 02/06/2024 7052 RxNorm Not Available [facility] 4 04:14:41 Medications Name Sig Start Date [...] Not Available No t Available Dexcom G7 Grounds Cleaner USE TO TEST BLOOD GLUCOSE CONTINUOUSL Y (DEXCOM G7 ACID CRANE OPERATOR) active Not Available Not Available No t [...] /min 113 mm[Hg] 74 mm[Hg] Not Available [facility] - 4 13:36:27 Date Recorded Oxygen saturation Oxygen saturation in Arterial blood by Pulse oximetry Body height Heart rate Respiratory rate Body temperature Body weight Systolic blood pressure Diastolic blood pressure Provider Name and Address Organization Details Last Updated DateTime 4 98 % 98 % 160.02 cm 67 /min 16 /min 98.3 [degF] 06149.6 16 g 117 mm[Hg] 61 mm[Hg] Not Available [facility] 4 17:46:27 Date Recorded Body temperature Body weight Body height Heart rate Oxygen saturation Oxygen saturation in Arterial blood by Pulse oximetry Respiratory rate Systolic blood pressure Diastolic blood pressure Provider Name and Address Organization Details Last Updated DateTime 4 98.7 [degF] 16645.9 84 g 160.02 cm 80 /min 99 % 99 % 18 /min 117 mm[Hg] 67 mm[Hg] Not Available [facility] 4 17:07:34 Social History None recorded. Functional Status None recorded. Mental Status None recorded. Family History Nothing Reported. Medical History No medical history recorded. Gynecological HistoryNo gynecological history recorded. Obstetrics History GPAL:G 0 P 0 0 0 0 Past Encounters Encounter ID Performer Location Encounter Start Date Encounter Closed Date Diagnosis/Indication Diagnosis SNOMED-CT Code Diagnosis ICD10 Code Diagnosis Note [id number] Wild Mendoza MD [facility] - [facility] [address] [place] [address] 06/12/2023 13:36:18 06/12/2023 18:56:08 Contusion of left lower leg [id number] 4732906 S80.12XA This 77-year-ol d female bruised her left anterior lower leg when getting out of the bathtub yesterday. She appears to has a bruise with no deformity. She is taking blood thinners. I recommende d ice packs and elevation. She will follow-up with her PCP for any persistent symptoms. The patient agreed with this plan. [id number] Amina Fatima MD [address] [phone] 02/29/2024 17:46:24 03/01/2024 00:46:10 Dysuria 87374885 R30.0 [id number] Kimmy Chang MD [facility] - [address] [phone] 04/09/2024 16:51:24 04/09/2024 22:30:06 Urinary symptoms 637177624 R39.9 Increased frequency of urination 803595822 R35.0 Health Concerns Section Related Observation LastModified by Organization Detai ls LastModified Time None Recorded Concern Status LastModified by Organization Details LastModified Time None Recorded Advance Directives Directive None Recorded Payers Insurance Date Sequence Insurance Name Policy Number Policy Martinez Covered Member ID Martinez Member ID Guarantor Name 04/09/2024 1 [facility] - DOS ON OR AFTER 2022 - DUAL ELIGIBLE - SENIOR LIVING OPTIONS AND ONE CARE (MEDICARE REPLACEMENT/ADV ANTAGE - HMO) Leonie Corea [id number] Leonie Corea Notes Date Note Type Note Provider Name and Address Organization Details Recorded Time 06/12/2023 text/html [facility] Nurse Triage Notes (Odessa Perez): Reason For Request: Fall Chief Complaints: Injury PMH: Heart Disease, Diabetes, Hypertension Allergies: Penicillin, Lidocaine, Morphine Comments: Called back member and animal care giver for c/o falling yesterday when getting out [...] but no call back yet. Verified name//address. [facility] [address] [place] [address],[address], [place], [address], [employer] 06/12/2023 13:41:12 02/29/2024 text/html [facility] Nurse Triage Notes (Alyson, Velia): Reason For Request: UTI Patient Reports: Painful urination; Frequent and increased urination with flank pain; Painful urination with or without fever Denies: Inability to fully empty bladder Chief Complaints: Urinary symptoms, Diabetes-related PMH: Coronary Artery Disease, Hypertension, Diabetes Mellitus Type 2 Comments: Predatory Animal Hunter verified the name//address and phone number.Patient is [...] s/s and seek emergency treatment if needed Anesthesiology Technologist Organization Information for Denilson Diaz [employer] Legal Name: [employer]? Address: [address] [place] [address], Aviation Medicine Specialist: Tobin Mclain MD [facility] No.: [id number] Anesthesiology Technologist POC Test Results from Denilson Diaz Urine Dipstick (17:44:16) Urine leukocytes: + ANT Urine nitrites: - NIT Urine urobilinogen: - URO Urine protein: +/- PRO Urine pH: 5.0 pH Urine blood: +++ BLO Urine specific gravity: 1.010 SG Urine ketones: - KET Urine bilirubin: +/- FRANTZ Urine glucose: - GLU .................. .................. .................. .................. .................. .................. .................. ............... Anesthesiology Technologist Note From Denilson Diaz: [facility] Pt presents with her daughter at home. Daughter reports pt had onset of burning with urination yesterday in addition to urinary frequency. Daughter also questioning some possible confusion. V/S taken as listed. Pt afebrile. Pt was able to provide urine specimen with dipstick analysis showing leukocytes and blood. Urine culture specimem obtained. Consulted with [facility] Dr. Fatima who started pt on antibiotics and requested urine culture sent to [facility]. Reviewed red flags for ED with pt and daughter. Pt education provided. [facility] Lab Orders: urinalysis, dipstick: Performed .................. .................. .................. .................. .................. .................. .................. ............... [facility] Consulted: Amina Fatima .................. .................. .................. .................. .................. .................. .................. ............... Disposition: Fulfilled Amina Fatima MD [address] [facility],[address], [place], [address], [employer] 02/29/2024 19:43:53 04/09/2024 text/html [facility] Nurse Triage [...] Mellitus Type 2, Chronic Kidney Disease Comments: Predatory Animal Hunter verified the patient's name//address and phone number. [...] emergency treatment if needed -Lupe Garza RN Anesthesiology Technologist Organization Information for Laura Woody [employer] Legal Name: [employer]? Address: [address] [place] [address], Aviation Medicine Specialist: Tobin Mclain MD CLIA No.: [id number] Anesthesiology Technologist POC Test Results from Laura Woody Blood [...] under Documents section. Kimmy Chang MD [address] [facility],[address], [place], [address], [employer] 04/09/2024 22:48:45 OBGyn Episode No OBEpisode recorded.
--- OUTSIDE RECORDS SUMMARY | 2024-08-28 13:51 | XMS_ITS | Patient Health Record ---
Author Organization [facility] Address [address] [place] [address] Care Team Providers Care Hospice Plan Administrator Name Role Phone RICKY GARZA, DAISY Primary Care Provider Unavailable Amor Dobbins Jr Unavailable [phone] Allergies Allergen (clinical drug ingredient) Drug/Non Drug [...] Once a day for 30 day(s) Active Ywvtsqjsfet-Xvxphrusz-Batfsd 100-62.5-25 MCG/INH 1 puff Inhalation Once a [...] Problem Status W/U Status Risk Notes Problem 96130893 Epigastric pain (R10.13) Active confirmed Problem 793226938 Gastroesophageal reflux disease without esophagitis (K21.9) Active confirmed Problem 39811402 Iron deficiency anemia, unspecified iron deficiency anemia type (D50.9) Active confirmed Problem 400095608 Anemia, unspecif ied type (D64.9) Active confirmed Problem 16227489 Dysphagia, unspecified type (R13.10) Active confirmed Problem 10353044 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
--- OUTSIDE RECORDS SUMMARY | 2024-08-28 13:51 | XMS_ITS | Clinical Summary ---
Author Organization [facility] Address [address] [place] [address] Care Team Providers Care Embosser Apprentice Name Role Phone Massimo Mcclellan Primary Care Provider [phone] Source Comments PLEASE NOTE, if this patient [...] asthma, unspecified asthma severity, unspecified whether persistent ([facility]) Inhale 2 Puffs into the lungs every [...] nephropathy, with long-term current use of insulin ([facility]),Type 2 diabetes mellitus with diabetic peripheral angiopathy without gangrene, with long-term current use of insulin ([facility]) Use to test blood glucose three times daily. (Freestyle Lite) 100 Each 2023 Active lancets (FREESTYLE LANCETS) 28 gaugeIndications :Type 2 diabetes mellitus with diabetic nephropathy, with long-term current use of insulin ([facility]),Type 2 diabetes mellitus with diabetic peripheral angiopathy without gangrene, with long-term current use of insulin ([facility]) Use to test blood glucose three times daily. (Freestyle Lancets) 100 Each 11 2023 Active alcohol swabsIndications :Type 2 diabetes mellitus with diabetic nephropathy, with long-term current use of insulin ([facility]),Type 2 diabetes mellitus with diabetic peripheral angiopathy without gangrene, with long-term current use of insulin ([facility]) Use to test blood glucose three times daily. 100 Each 2023 Active LORazepam (ATIVAN) 0.5 mg tablet Take 1 Tablet by mouth 3 (three) times daily as needed for anxiety or sleep 90 Tablet 1 2023 Active acetaminophen (TYLENOL) 500 mg tabletIndication s:Other diabetic neurological complication associated with type 2 diabetes mellitus ([facility]),Fibrom yalgia,Osteoarth ritis, unspecified osteoarthritis type, unspecified site Take 2 Tablets by mouth every 6 (six) hours as needed for pain 60 Tablet 2 2023 Active glucagon (BAQSIMI) 3 mg/actuation spry PLACE 3 MG INTO THE NOSTRIL(S) EVERY MORNING 2 Each 2 2023 Active naloxone (NARCAN) 4 mg/actuation nasal spray Place 1 [place] into the nostril(s) as needed for opioid [...] 2023 Active triamcinolone (KENALOG) 0.025 % cream [facility]/pharmacy #[id number] [place], [place] [phone] 60 g 0 Days Supply: 10Sig: APLIQUE AL JACOBO AFECTADA TOPICALLY DOS VECES AL D A POR 10 D ASSource: 2 Outside SourcesAuthorized by: HTO HERNANDEZ 2023 Active montelukast (SINGULAIR) 10 mg tablet Take 1 Tablet by mouth nightly at bedtime (Prescribed by car pre cooler Dr. Berkowitz) 2023 Active ondansetron ODT (ZOFRAN-ODT) [...] mouth 2 (two) times Daily (Prescribed by car pre cooler - Dr. Michael Berkowitz) 2023 Active levocetirizine (XYZAL) 5 mg tablet Take 1 Tablet by mouth every evening [facility]/pharmacy #37 [place], [place] [phone] 90 Each 0 Days Supply: 90Sig: TAKE [...] gangrene, with long-term current use of insulin ([facility]) Inject 16 Units into the skin nightly at bedtime Increased dosing 9 mL 5 2024 Active glucose 4 gram chewable tabletIndication s:Type 2 diabetes mellitus with diabetic peripheral angiopathy without gangrene, with long-term current use of insulin ([facility]) Place 4 Tablets into mouth, chew [...] gangrene, with long-term current use of insulin ([facility]),Mixed hyperlipidemia Take 1 Tablet by [...] gangrene, with long-term current use of insulin ([facility]) Use to inject insulin up [...] gangrene, with long-term current use of insulin ([facility]) Inject 0-16 Units into the skin 3 [...] gangrene, with long-term current use of insulin ([facility]) Inject 2-6 Units into the [...] syndrome 08/08/2022 08/09/19 23 Diabetic peripheral angiopathy ([facility]) 023 08/08/2022 Dry skin 08/08/2022 08/08/2022 Dysphagia 08/08/2022 08/08/2022 Incontinence of urine 08/08/2022 08/08/2022 Early onset Alzheimer's dementia (HCC-CMS) 08/0808/08/2022 Epigastric pain 08/08/2022 08/08/2022 Left ventricular hypertrophy 08/08/202204/2022 Overview (03/05/2024): 12/20/23 at [facility] Cardio Chest pain Improved with Imdur; unclear [...] may be normal for the patient's age. 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) 11/07/2017 08/08/2022 Meniere disease 11/07/2017 08/08/2022 Overview (08/08/2022): 2016 Dr Baker Pulmonary hypertension ([facility]) 11/07/2017 08/08/2022 Overview (08/08/2022): b/l submassive PE diagnosed on Dec 20 in [facility] b/l submassive PE diagnosed on Dec 20 in [facility] 2016 DAVID RVSP- 46 Tubular adenoma of colon 11/07/2017 023 Overview (08/08/2022): 2005 Hyperparathyroidism ([facility]) 08/29/2017 Overview (08/08/2022): Right lower parathyroidectomy. 06/16/08 SURGEON: Danny Marie M.D. [employer] ASSISTANT: Naima Bowling M.D. Kidney stone 08/29/2017 08/08/2022 Hyperlipidemia LDL goal <70 08/29/201704/2022 Essential hypertension 08/29/2017 Seizure disorder ([facility]) 08/29/201708/08 Overview (08/08/2022): Not on [...] gangrene, with long-term current use of insulin ([facility]) 08/23/2017 08/08/2022 Overview (07/24/2024): DM dx: 51 [...] (11/10/10, 05/20/04) Diabetes foot exam: 04/25/24 at [facility] - notes on file 02/21/24 at [facility] - notes on file Diabetes retinal [...] new glasses RX, optional F/U 1 year [facility] Endocrinology: 11/24/22 Start Tradjenta 5 mg Continue [...] 2 of 2 peroneal veins, [facility] History of pulmonary embolism 07/19/2017 Overview (08/08/2022): Bilateral, 12/2015, [facility] Tricuspid valve insufficiency 05/24/2017 Overview (03/05/2024): 12/20/23 at [facility] Cardio Chest pain Improved with Imdur; unclear [...] dysfunction 05/24/2017 08/08/2022 Overview (03/05/2024): 12/20/23 at [facility] Cardio Chest pain Improved with Imdur; unclear [...] normal for the patient's age. Esophageal varices ([facility]) 06/24/201604/2022 Overview (08/08/2022): endoscopy 10/05/2018 w non bleeding grade 1 esophageal varicesEGD on 06/24/16 by GI, Dr Damien caballero gastritis and esophageal varices grade 1 06/2106 EGD, Grade 1 endoscopy 10/05/2018 w non bleeding grade 1 esophageal varicesEGD on 06/24/[address] Damien CARUSO gastritis and esophageal varices grade 1 Right ventricular dilation 12/22/201508/08 Overview (08/08/2022): TTE 12/22/15 in [facility]: RV dilatation, RVSP 46 TTE 12/22/15 in [facility]: RV dilatation, RVSP 46 Anemia 12/21/2015 08/08/2022 Deep vein thrombosis (DVT) ([facility]) 12/21/2015 08/08/2022 Overview (08/08/2022): LE US- DVT involving 2 of 2 peroneal veins diagnosed on Dec 20 [facility] LE US- DVT involving 2 of 2 peroneal veins diagnosed on Dec 20 [facility] Positive PPD 10/09/2014 08/08/2022 Overview (08/08/2022): Never [...] Peripheral venous insufficiency 10/31/2011 08/08/2022 Diabetic neuropathy ([facility]) 09/19/2007 Sciatica 05/24/2004 08/08/2022 Tubular adenoma 04/10/2004 08/08/2022 Overview (08/08/2022): catherine colo July 2009 exc for 2 hyperplastic polypsColonoscopy 2004 at [facility] [place] per letter of Dr Amor Dobbins Tubular adenoma 04/10/2004 08/08/2022 Overview (08/08/2022): [facility] colo July 2009 exc for 2 hyperplastic polypsColonoscopy 2004 at [facility] [place] per letter of Dr Amor Dobbins Resolved Problems Problem Noted Date Diagnosed Date Resolved Date Obesity 08/08/2022 08/08/2022 07/24/2024 Encounters Date Type Department Care Team Description 08/20/2024 Results Follow-Up [address] [address] Darwin Encinas, GeovannyD HEMOGLOBIN GLYCOSYLATED A1C 07/24/2024 3:40 PM EDT Telemedicine Visit [address] [address] Darwin Encinas, PharmD Type 2 diabetes mellitus with diabetic peripheral angiopathy without gangrene, with long-term current use of insulin ([facility]) (Primary Dx); Essential hypertension; Hyperlipidemia LDL goal <70 06/06/2024 3:20 PM EST Telemedicine Visit [address] [address] Mark Morales NP Cervical pain (neck) (Primary Dx); Fibromyalgia from Last 3 Months Immunizations Immunization Administration Dates Next Due [facility]-19,SARS-COV-2 VACCINE, UNSPECIFIED (US Admin) 05/25/2022,09/15/2021 Flu, High [...] Dental Examination 1945 Urine Drug Screen 1945 Medicare Annual Wellness Visit 1962 Imm-Hepatitis A (1 of 2 - Ri sk 2-dose series) 07/06/1963 Imm-Hepatitis B (1 of 3 - Ri sk 3-dose series) 2004 Hepatocellular Carcinoma Scr eening (HCC) 04/23/2023 10/21/2022 Imm-DTaP/Tdap/Td (2 - Td or Tdap) 05/12/2024 05/12/2014, 11/10/2010, 11/10/2010 Tbn-BLBEN-20 ( season) 2024 12/27/2023, 02/14/2023, 05/25/2022, Additional history exists Diabetes Foot Exam 10/24/2024 10/25/2023 Falls Prevention 10/24/2024 10/25/2023 Serum Creatinine 10/24/2024 10/25/2023, 04/2022, 12/25/2015 TSH Monitoring 10/24/2024 10/25/2023, 08/08/2022 Depression Monitoring 11/19/2024 08/19/2024 , 10/25/2023, 05/08/2023, Additional history exists Diabetes HbA1c 11/19/2024 08/19/2024, 04/10, 10/25/2023, Additional history exists Tobacco Screening 06/06/2025 06/06/2024, 08/25/2023 EGD (Upper Endoscopy) 08/08/2025 08/08/2022 Lipid Screening [...] gangrene, with long-term current use of insulin ([facility]) Hyperlipidemia LDL goal <70 VITAMIN B12 & FOLATE Routine 08/19/2024 9:25 AM EDT Type 2 diabetes mellitus with diabetic peripheral angiopathy without gangrene, with long-term current use of insulin ([facility]) MICROALBUMIN/CREATINI NE RATIO, URINE, RANDOM Routine 08/19/2024 9:25 AM EDT Type 2 diabetes mellitus with diabetic peripheral angiopathy without gangrene, with long-term current use of insulin ([facility]) HEMOGLOBIN GLYCOSYLATED A1C Routine 08/19/2024 9:25 AM EDT Type 2 diabetes mellitus with diabetic peripheral angiopathy without gangrene, with long-term current use of insulin ([facility]) REFERRAL TO PAIN MANAGEMENT Routine 08/19/2024 3:00 AM EDT Cervical pain (neck) Fibromyalgia IMAGING SCANNED DOCUMENT 08/09/2024 3:00 AM EDT IMAGING SCANNED DOCUMENT 08/09/2024 3:00 AM EDT REFERRAL SCANNED DOCUMENT 07/24/2024 3:00 AM EDT REFERRAL SCANNED DOCUMENT 07/19/2024 3:00 AM EDT OTHER ORDERS SCANNED DOCUMENT 07/01/2024 3:00 AM EDT REFERRAL SCANNED DOCUMENT 06/19/2024 3:00 AM EDT EYE EXAM 04/24/2024 3:00 AM EST TSH W/RFLX FREE T4 Routine 10/25/2023 11 :27 AM EDT Hyperparathyroidism ([facility]) Prediabetes COMPREHENSIVE METABOLIC PANEL Routine 10/25/2023 [...] EDT Varices of esophagus determined by endoscopy ([facility]) from Last 3 Months or Most Recently Relevant to Health Maintenance Results * MICROALBUMIN/CREATININE RATIO, URINE, RANDOM (08/19/2024 9:25 AM EDT) [facility] CREATININE, RANDOM URINE 109 20 - 275 mg/dL [facility] MICROALBUMIN 2.0 mg/dL [employer] [facility] [employer] [facility] Comment: Reference Range Not established MICROALBUMIN/CREA TININE RATIO, RANDOM URINE 18 <30 mg/g creat Personally Comment: The ADA defines abnormalities in albumin [...] AM EDT 08/19/2024 9:25 AM EDT Narrative [employer] - 08/20/2024 9:19 PM EDT FASTING:YES Darwin Encinas PharmD LAB URINE AMBULATORY Rubi l Result [facility] [address] [place] [address], [facility] [address] [address] * VITAMIN B12 & FOLATE (08/19/2024 9:25 AM EDT) [facility] VITAMIN B12 623 200 - 1,100 pg/mL [facility] FOLATE, SERUM 20.0 5.5 ng/mL [facility] Comment: ? Reference Range ? Low: ? <3.4 ? Borderline: ?3.4-5.4 ? Normal: ?>5.4 Blood Blood / Unknown 08/19/2024 9 :25 AM EDT 08/19/2024 9:25 AM EDT Narrative [employer] [facility] - 08/20/2024 9:19 PM EDT FASTING:YES Darwin [place] PharmD LAB - BLOOD DRAW Edited R [facility] - Final Performing Organization Address [facility] de Phone Number [employer] [address] [place] [address], [employer] [address] [address] * (ABNORMAL) HEMOGLOBIN GLYCOSYLATED A1C (08/19/2024 9:25 AM EDT) HEMOGLOBIN A1C 8.9(H) <5.7 % Personally Comment: For someone without known diabetes, a [...] AM EDT 08/19/2024 9:25 AM EDT Narrative [employer] - 08/20/2024 9:19 PM EDT FASTING:YES MODLOFT Darwin [place] PharmD LAB - BLOOD DRAW Edited R [employer] - Final Performing Organization Address [facility] Co de Phone Number [facility] [address] [address], [employer] [address] [address] * LIPID PANEL (08/19/2024 9:25 AM EDT) CHOLESTEROL, TOTAL 155 <200 mg/dL [facility] HDL CHOLESTEROL 57 > OR = 50 mg/dL Personally TRIGLYCERIDES 97 <150 mg/dL Personally LDL-CHOLESTEROL 80 99 mg/dL (calc) Personally Comment: Reference range: <100 Desirable range <100 mg/dL for primary prevention; ?? <70 mg/dL for patients with CHD or diabetic patients with > or = 2 CHD risk factors. LDL-C is now calculated using the Alvarez calculation, which is a validated novel method providing better accuracy than the Friedewald equation in the estimation of LDL-C. Gilles SS et al. JESUS. 2013;310(19): 5780-6603 (http://education.Bluesocket/faq/PFO192) CHOL/HDLC RATIO 2.7 <5.0 (calc) Personally NON-HDL CHOLESTEROL 98 <130 mg/dL (calc) Personally Comment: For patients with diabetes plus 1 major ASCVD risk factor, treating to a non-HDL-C goal of <100 mg/dL (LDL-C of <70 mg/dL) is considered a therapeutic option. Blood Blood / Unknown 08/19/2024 9 :25 AM EDT 08/19/2024 9:25 AM EDT Narrative [employer] - 08/20/2024 9:19 PM EDT FASTING:YES us Darwin SmallD LAB - BLOOD DRAW Final Re sult [employer] [address] [place] [address], [facility] [address] [address] * REFERRAL TO PAIN MANAGEMENT (08/19/2024 3:00 AM EDT) 08/19/2024 3:00 AM EDT us Mark Morales NP REFERRAL Final Result * IMAGING SCANNED DOCUMENT (08/09/2024 3:00 AM EDT) Only the most recent of2 resultswithin the time period is included. 08/09/2024 3:00 AM EDT us Massimo Eleuterio PA SCAN IMAGING Final Result * REFERRAL SCANNED DOCUMENT (07/24/2024 3:00 AM EDT) Only the most recent of3 resultswithin the time period is included. 07/24/2024 3:00 AM EDT us Massimo Eleuterio PA SCAN REFERRAL Final Result * OTHER ORDERS SCANNED DOCUMENT (07/01/2024 3:00 AM EDT) 07/01/2024 3:00 AM EDT us Massimo Eleuterio PA SCAN OTHER ORDERS Final Result * EYE EXAM (04/24/2024 3:00 AM EST) 04/24/2024 3:00 AM EST us Massimo Eleuterio PA OTHER Edited Result - Final * TSH W/RFLX FREE T4 (10/25/2023 11:27 AM EDT) TSH W/REFLEX TO FT4 2.80 0.40 - 4.50 mIU/L [facility] Blood Blood / Unknown 10/25/2023 1 1:27 AM EDT 10/25/2023 11:27 AM EDT us Massimo Blackburnvais PA LAB - BLOOD DRAW Final Result [facility] [address] [address], [facility] [address] [address] * (ABNORMAL) COMPREHENSIVE METABOLIC PANEL (10/25/2023 11:27 AM EDT) GLUCOSE 118(H) 65 - 99 mg/dL [facility] Comment: ?Fasting reference interval For someone without known diabetes, a glucose value between 100 and 125 mg/dL is consistent with prediabetes and should be confirmed with a follow-up test. UREA NITROGEN (BUN) 16 7 - 25 mg/dL [facility] CREATININE (blood) 0.85 0.60 - 1.00 mg/dL [facility] EGFR 70 > OR = 60 mL/min/1. 73m2 [facility] BUN/CREATININE RATIO SEE NOTE: [facility] Comment: ?? Not Reported: BUN and Creatinine are within ?? reference range. ? SODIUM 142 135 - 146 mmol/L [facility] POTASSIUM 4.8 3.5 - 5.3 mmol/L [facility] CHLORIDE 104 98 - 110 mmol/L [facility] CARBON DIOXIDE 29 20 - 32 mmol/L [facility] CALCIUM 9.5 8.6 - 10.4 mg/dL [facility] PROTEIN, TOTAL 7.0 6.1 - 8.1 g/dL [facility] ALBUMIN 4.3 3.6 - 5.1 g/dL [facility] GLOBULIN 2.7 1.9 - 3.7 g/dL (calc) [facility] ALBUMIN/GLOBULI N RATIO 1.6 1.0 - 2.5 (calc) [facility] BILIRUBIN, TOTAL 0.5 0.2 - 1.2 mg/dL [facility] ALKALINE PHOSPHATASE 87 37 - 153 U/L [facility] AST 16 10 - 35 U/L [facility] ALT 10 6 - 29 U/L [facility] Blood Blood / Unknown 10/25/2023 1 1:27 AM EDT 10/25/2023 11:27 AM EDT Massimo PACHECO LAB - BLOOD DRAW Final Result [facility] [address] [address], [facility] [address] [address] * HISTORIC DEXA SCAN (11/22/2022 3:00 AM EDT) 11/22/2022 3:00 AM EDT us Massimo PACHECO IMG DXA Final Result * US ABDOMEN ULTRASOUND (CAPE COD) (10/21/2022 3:00 AM EDT) 10/21/2022 3:00 AM EDT us Massimo PACHECO IMG ULTRASOUND Edited Result - Final from Last 3 Months or Most Recently Relevant to Health Maintenance Insurance [facility] Member Subscriber Plan / Payer ( fective 2012-Present) Name:Corea, Leonie Relation to Subscriber:Self Name:Leonie Corea Payer ID:[id number] Group ID:Not on file Type:Indemnity Address: [address] [place] [address] Care Teams Embosser Apprentice Relationship Specialty Start Date End Date Massimo Mcclellan PA [address] [place] [address] PCP - General FAMILY MEDICINETARA 05/13/22
--- OUTSIDE RECORDS SUMMARY | 2024-08-28 13:51 | XMS_ITS | Patient Health Record ---
Author Organization [facility] Address [address] [place] [address] Care Team Providers Care Derrick Boat Runner Name Role Phone Massimo Figueroa Primary Care Provider Unavail able Miguel A Layne Unavailable [phone] Allergies Allergen (clinical drug ingredient) Drug/Non Drug [...] Active Celecoxib 200 MG (Prior Auth: Rx Ref#:[id number]) Oral for 30 Not-Taking Tresiba Active DULoxetine HCl 60 MG (Prior Auth: Rx Ref#:[id number]) Oral for 30 Not-Taking NovoLOG Active Enalapril Maleate 10 MG (Prior Auth: Rx Ref#:[id number]) Oral for 90 Not-Taking Acetaminophen Extra Strength 500 MG (Prior Auth: Rx Ref#:[id number]) Oral for 13 Active Gabapentin 400 MG (Prior Auth: Rx Ref#:[id number]) Oral for 90 Not-Taking Albuterol Sulfate (2.5 MG/3ML) 0.083% (Prior Auth: Rx Ref#:[id number]) Inhalation for 10 Active Ferrous Sulfate 325 (65 Fe) MG 1 tablet Orally Once a day for 30 day(s) Not-Taking Capsaicin 0.025 % 1 application to affected area as needed Externally Three times a day Active Fluticasone Furoate 200 MCG/ACT 1 puff Inhalation Once a day Active hydroCHLOROthiazide 12.5 MG (Prior Auth: Rx Ref#:[id number]) Oral for 30 Active Polyethylene Glycol 3350 - as directed Active Flunisolide 25 MCG/ACT (0.025%) (Prior Auth: Rx Ref#:[id number]) Nasal for 25 Active Extra Depth Orthopedic Shoes (1 Pair) with Customized Heat Molded Multidensity Innersoles (3 Pair) as directed Dx: IDDM/Polyneuropathy (E10.42), Hammertoe Foot Deformity (M20.41,M20.42), Preulcerative Skin Lesion(s) (L85.1) 01/12/2023 Active Loratadine 10 MG (Prior Auth: Rx Ref#:[id number]) Oral for 90 Active Montelukast Sodium 10 MG (Prior Auth: Rx Ref#:[id number]) Oral for 30 Active oxyCODONE HCl 5 MG (Schedule II Drug) (Prior Auth: Rx Ref#:[id number]) Oral for 28 Active Pantoprazole Sodium 40 MG (Prior Auth: R x Ref#:[id number]) Oral for 30 Active Pravastatin Sodium 10 MG (Prior Auth: Rx Ref#:[id number]) Oral for 30 Active Aspirin Low Dose 81 MG (Prior Auth: Rx Ref#:[id number]) Oral for 90 Not-Taking Citracal + D [...] Problem Acquired hammer toe of right foot (1686861028804325 ) Other hammer toe(s) (acquired), right foot (M20.41) Active confirmed Problem Acquired hammer toe of left foot ([id number] ) Other hammer toe(s) (acquired), left foot (M20.42) Active confirmed Problem Polyneuropathy due to diabetes mellitus type I (380839836) Type 1 diabetes mellitus with diabetic polyneuropathy (E10.42) Active confirmed Plan Of Treatment Pending Test Test Name Order Date X ray : Foot, left 3V 12/18/2018 X ray : Foot, right 3V 12/18/2018 [id number] NAIL, 6 OR MORE 11/10/2021 57394-RHAKYOJ NAIL, 6 OR MORE 01/12/2023 04232-KYUC SKIN LESIONS, OVER 4 01/13/20 23 34560-QPIN SKIN LESIONS, OVER 4 11/11/19 22 12020-IRYU SKIN LESIONS, OVER 4 09/19/19 19 23757-JBEI SKIN LESIONS, OVER 4 12/19/19 19 28998-VLFM SKIN LESIONS, OVER 4 03/26/20 19 34017-MTKS SKIN LESIONS, OVER 4 09/09/19 21 28677-OMGA SKIN LESIONS, OVER 4 06/12/19 22 Insurance Providers Payer Name Payer Address Payer Phone Subscriber Number Group Number Insured Name Patient Relationship to Insured Coverage Start Date Coverage End Date [facility] [employer] Claims [address] [place] [phone] [facility]32 [id number] Leonie Corea Self - patient is the [...] History Reason Date(Month/Year) [facility]- check her heart [facility] for kidney stones 05/01
--- OUTSIDE RECORDS SUMMARY | 2024-08-28 13:51 | XMS_ITS ---
Author Organization [facility] Address [address] [place] [address] Care Team Providers Care Mixed Crop Farmer Name Role Phone RICKY GARZA, DAISY Primary Care Provider Unavailable Amor Dobbins Jr REASON FOR VISIT cancel appt Encounters Encounter Location Date Provider Diagnosis [facility] [address] [place] [address] 01/15/2024 Amor Dobbins Jr Plan Of Treatment No Information Progress Notes * TOMMY CHOU EDOB:1945 (78 yo F)Acc No.[id number]:01/15/2024 Patient:?TOMMY CHOU :1945???Age:78 Y???Sex:Female Address:[address] [place] [address], [place] [address] * true * Date:? Generated for Printi ng/Famatildeg/eTransmitting on:?08/28/2024 01:51 PM EDT
--- OUTSIDE RECORDS SUMMARY | 2024-08-28 13:53 | XMS_ITS ---
Author Organization [facility] Address [address] [place] [address] Care Team Providers Care Calker Name Role Phone RICKY GARZA, DAISY Primary Care Provider Unavailable Amor Dobbins Jr Unavailable REASON FOR VISIT no show Encounters Encounter Location Date Provider Diagnosis [facility] [address] [place] [phone] 09/18/2023 Amor Dobbins Jr Plan Of Treatment No Information Progress Notes * TOMMY CHOU EDOB:1945 (78 yo F)Acc No.[id number]:09/18/2023 Patient:?TOMMY CHOU :1945???Age:78 Y???Sex:Female Address:[address] [place] [address], [place] [address] * true * Date:? Generated for Printi ng/Benjie/eTransmitting on:?08/28/2024 01:52 PM EDT
--- OUTSIDE RECORDS SUMMARY | 2024-08-28 13:53 | XMS_ITS | Clinical Summary ---
Author Organization [facility] Address [address] [place] [address] Phone Care Team Providers Care Heel Seat Fitter Machine Name Role Phone Massimo Mcclellan Primary Care Provider [phone] Allergies Active Allergy Reactions Criticality Noted Date [...] kidney disease) stage 3, GFR 30-59 ml/min ([facility] V24, [facility] V28) 11/07/2017 Esophageal varices ([facility] V24, [facility] V28) Overview (01/30/2024): 06/2106 EGD, Grade 1 Meniere disease 11/07/2017 Overview (01/30/2024): 2015 Dr Baker Osteopenia 11/07/2017 Pulmonary hypertension ([facility] V24, [facility] V28 ) 11/07/2017 Overview (01/30/2024): 2015 DAVID RVSP- 46 Tubular adenoma of colon 11/07/2017 Overview (01/30/2024): 2005 Type 2 diabetes mellitus wit h cataract ([facility] V24, [facility] V28) 11/07/2017 Fibromyalgia 08/29/2017 Hepatitis C 08/29/2017 Hyperlipidemia 08/29/2017 Hyperparathyroidism ([facility] V24) 08/29/2017 Hypertension 08/29/2017 Kidney stone 08/29/2017 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 Overview (01/30/2024): Never treated Seizure disorder ([facility] V24, [facility] V28) 08/09 Overview (01/30/2024): Not on medication Allergic rhinitis 08/23/2017 Anxiety 08/23/2017 Asthma 08/23/2017 Depression 08/23/2017 DM (diabetes mellitus), type 2 with renal complications ([facility] V24, [facility] V28) 08/23/2017 GERD (gastroesophageal reflux disease) 8 Insomnia 08/23/2017 Osteoarthritis 08/23/2017 Overview (01/30/2024): Lumbar spine Encounters Date Type Department Care Team Description 08/21/2024 1:15 PM EDT Office Visit Orthopedic Surgery [facility] [address] [phone] Florian Mott DPM Controlled type 2 diabetes with neuropathy ([facility] V24, [facility] V28) (Primary Dx); Pain in toes of both feet; Arthritis of both feet; Difficulty walking; Dermatophytosis, nail 06/28/2024 Telephone Orthopedic Surgery [facility] [address] [phone] Florian Mott DPM notes from Last 3 [...] 2:00 PM EDT Office Visit Orthopedic Surgery [facility] [address] [phone] Florian Mott, DPJake [address] [address] Health Maintenance Due Date Last Done Comments [...] Group ID:[id number] Type:Not on file Address: [address] [id number] Advance Directives Documents on File Type Date Recorded Patient Implementation Services Analyst Expl anation Health Care Decision (hx) 03/30/2021 [...] (hx) 12/25/2015 AD NIEVES DIRECTIVE Care Teams Heel Seat Fitter Machine Relationship Specialty Start Date End Date Massimo Mcclellan PA [address] [place] [address] PCP - General 11/24/23
[2024-08-29 12:33] VITALS: BMI 25.7
[2024-08-29 12:41] VITALS: BP 121/59; PULSE 79; RESP 18; O2SAT 98
--- NOTE | 2024-08-29 12:48 | HO.ANESPROP2 ---
HPI - Anesthesia Eval Consult details Narrative: Pending reschedule 79yo F for C4-5,C5-6 Ant Cerv Discectomy w/ fusion, 09/03/24 s/p C4-5,C5-6 Ant Cerv Discectomy w/ fusion 02/2024 with GA-ETT 7 No recent illness No CP/SOB with very limited activity d/t pain Follows [facility] for htn, chest pain. Stress pending since 03/2024 office visit. Denies CP at rest. 09/2024 Nuc Stress WNL Multiple PE (2015 and 2016) on Eliquis. Follows [facility] pul[facility]. Last eval 02/2024 and ok'd to hold eliquis prior to 02/2024 cspine surgery COPD: Follows with [facility]. Stable 02/2024 office eval. Rare albuterol. JENNIFER: No CPAP, has had significant weight loss since sleep study Hx PE: Eliquis, ok to hold per pulmo. No need for IVC Filter Cirrhosis: Follows [facility] GI. Possible hx of varices. 05/2024 EGD nml. Hx Hep C s/p tx with harvoni Gastritis: ppi and H2 rey IDDM: A1c 8.7 04/2024, per daughter blood sugars have been elevated with pain 08/2024 A1C 8.5 PMFSH Active Problems Active Problems: All Active Problems S/P cervical spinal fusion (Acute) Cervical myelopathy (Acute) Cervical radiculopathy (Acute) Neck pain (Acute) Leg pain (Acute) Hypotension (Acute) Acute and chronic respiratory failure (Acute) Chest pain (Acute) Pleuritis (Acute) JENNIFER (obstructive sleep apnea) (Acute) Abnormal chest x-ray (Acute) Pneumonia (Acute) COVID-19 (Acute ~12/2019) Pulmonary emboli (Acute) COPD (chronic obstructive pulmonary disease) (Acute) Past Medical History Medical History (Updated 08/29/24 @ 12:19 by Yumi Torres RN) Mild aortic stenosis Sciatica Right ventricular dilation Pulmonary HTN Insomnia Positive PPD, treated Myofascial muscle pain Meniere disease Memory impairment intermediate current use of anticoagulant therapy Left ventricular hypertrophy HTN (hypertension) Hyperlipidemia Hx pulmonary embolism Early onset Alzheimer dementia Incontinence of urine Dysphasia Diastolic dysfunction Type 2 diabetes mellitus with diabetic peripheral angiopathy without gangrene, with long-term current use of insulin Hx of deep venous thrombosis CKD (chronic kidney disease) stage 3, GFR 30-59 ml/min Cervical facet syndrome Kidney stone Calcium oxalate crystals present in urine Asthma-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 Depression Anemia Allergic rhinitis Hyperparathyroidism Osteoarthritis Fibromyalgia Hx of renal calculi Hx of seizure disorder Diabetes Cirrhosis GERD (gastroesophageal reflux disease) Nausea Dementia Anxiety RLS (restless legs syndrome) Peripheral venous insufficiency Osteopenia Esophageal varices Gastritis Mitral regurgitation Tricuspid regurgitation Hx of hepatitis C (~2008) Chronic anticoagulation Back pain AVM (arteriovenous malformation) of colon Pleuritis JENNIFER (obstructive sleep apnea) Abnormal chest x-ray Pneumonia COVID-19 (~12/2019) Pulmonary emboli COPD (chronic obstructive pulmonary disease) Family History Family history of problems with anesthesia: No Surgical History Surgical History (Updated 08/29/24 @ 12:24 by Yumi Torres RN) Hx of fusion of cervical spine Hx of lithotripsy Hx of colonoscopy (12/11/19) History of esophagogastroduodenoscopy (EGD) (12/11/19) Hx of hysterectomy (~1974) Hx of parathyroidectomy (~2008) Hx of cholecystectomy (~1975) Hx of cataract extraction History of Problems with Anesthesia: No Social History Social History Household Members Other:: friend Are you a primary manager respiratory care to a significant other at home: No Do you presently have visiting nurse or other home services: Yes (THERAPIST) Patient Tobacco Use Status: Never used Tobacco Meds Allergies Allergy/AdvReac Type Severity Reaction Status Date / Time bee pollen (bee stings) Allergy Severe Anaphylaxis Verified 09/06/24 11:13 lidocaine (From LIDODERM) Allergy Severe BLISTERS Verified 09/06/24 11:13 from adhesive morphine (MORPHINE) Allergy Severe PO will Verified 09/06/24 11:13 cause itching, can tolerate IV Penicillins (PENICILLINS) Allergy Severe SWELLING/IT Verified 09/06/24 11:13 XIAO ampicillin Allergy Intermediate rash/hives Verified 09/06/24 11:13 gabapentin (GABAPENTIN) Allergy Intermediate SORES IN Verified 09/06/24 11:13 MOUTH/AGITATION enalapril AdvReac Severe hyperkalemi Verified 09/06/24 11:13 a Home Medications ?Medication ?Instructions ?Recorded ?Confirmed ?Last Taken ?Type glucose 4 gram chewable tablet 4 g PO TID PRN diabetes mellitus 02/13/20 09/27/24 Unknown History insulin aspart U-100 100 unit/mL 4 - 6 unit subcut TID 02/13/20 09/27/24 03/04/24 History (3 mL) subcutaneous pen insulin degludec 200 unit/mL (3 16 unit subcut BEDTIME 02/13/20 09/27/24 03/04/24 20:00 History mL) subcutaneous pen 12 units oxycodone 5 mg tablet 10 mg PO Q8H PRN pain 02/13/20 09/27/24 03/05/24 History sennosides 8.6 mg tablet 8.6 mg PO BEDTIME PRN Constipation 02/13/20 09/27/24 Unknown History escitalopram oxalate 20 mg tablet 20 mg PO QAM 12/30/20 09/27/24 03/05/24 History levocetirizine 5 mg tablet 5 mg PO BEDTIME PRN Allergy 01/28/21 09/27/24 03/05/24 History Symptoms buspirone 15 mg tablet 15 mg PO BID 12/28/21 09/27/24 03/05/24 History esomeprazole magnesium 40 mg 40 mg PO QAM 12/28/21 09/27/24 03/05/24 History capsule,delayed release ferrous sulfate 325 mg (65 mg 325 mg PO DAILY 12/28/21 09/27/24 03/04/24 History iron) tablet famotidine 40 mg tablet 40 mg PO BEDTIME 04/12/22 09/27/24 03/04/24 History acetaminophen 650 mg 650 mg PO TID PRN Pain 05/04/23 09/27/24 Unknown History tablet,extended release isosorbide mononitrate 30 mg 30 mg PO QAM 05/04/23 09/27/24 03/05/24 History tablet,extended release 24 hr amlodipine 10 mg tablet 10 mg PO QAM 09/01/23 09/27/24 03/05/24 History atorvastatin 20 mg tablet 20 mg PO BEDTIME 02/26/24 09/27/24 Unknown History lorazepam 0.5 mg tablet 0.5 mg PO DAILY PRN Anxiety 02/26/24 09/27/24 Unknown History ondansetron 4 mg disintegrating 4 mg PO DAILY PRN Nausea And 02/26/24 09/27/24 Unknown History tablet Vomiting venlafaxine 37.5 mg tablet 75 mg PO BEDTIME 07/24/24 09/27/24 Unknown History baclofen 5 mg tablet 5 mg PO BEDTIME muscle spasms / 08/29/24 09/27/24 Unknown History pain Exam Height,Weight and Vital Signs: Height 5 ft 3 in Weight 65.771 kg Last Vital Signs Pulse 79 08/29/24 12:41 Resp 18 08/29/24 12:41 BP 121/59 L 08/29/24 12:41 Pulse Ox 98 08/29/24 12:41 O2 Del Method Room Air 08/29/24 12:41 Pertinent Lab Results Pertinent Lab Results: Lab Results 08/29/24 Range/Units 13:23 WBC 5.5 (4.8-10.8) X10*3/uL RBC 4.55 (4.20-5.50) X10*6/uL Hgb 13.5 (12.0-16.0) g/dl Hct 41.3 (37.0-47.0) % MCV 90.8 (80.0-98.0) fL MCH 29.7 (27.0-33.0) pg MCHC 32.7 (31.0-35.0) g/dl RDW 13.3 (11.0-16.0) % Plt Count 162 (160-400) X10*3/uL MPV 10.9 (9.4-12.3) fL Absolute Nucleated RBC 0.020 H (0.0-0.012) X10*3/uL Nucleated RBC % (auto) 0.4 H (0.0-0.2) /100WBC PT 16.8 H D (10.9-12.4) SEC INR 1.5 H (0.9-1.1) Sodium 138 (135-145) mmol/L Potassium 4.7 D (3.3-5.1) mmol/L Chloride 102 (96-108) mmol/L Carbon Dioxide 28 (22-29) mmol/L Anion Gap 13 (12-20) BUN 16 (9-16) mg/dL Creatinine 0.94 (0.5-1.4) mg/dL Estim Creat Clear Calc 43.4 Estimated GFR 57 Random Glucose 380 H* (60-115) mg/dL Estimat Average Glucose 197 mg/dL Hemoglobin A1c % 8.5 H (<6.0) % Calcium 9.4 (8.4-10.2) mg/dL Total Bilirubin 0.5 (0.0-1.0) mg/dL AST 26 (5-31) U/L ALT 22 (0-31) U/L Alkaline Phosphatase 120 H (39-117) U/L Total Protein 7.0 (6.5-8.0) g/dL Albumin 4.2 (3.5-5.0) g/dL Narrative Narrative: NM ari perf SPECT rest & str 09/2024 Impression: 1. Myocardial perfusion imaging study shows likely normal myocardial perfusion 2. Gated LVEF is 73% 3. Transient ischemic dilatation not present Nondiagnostic changes on EKG. EKG 06/2024 Ventricular Rate: 74 BPM Atrial Rate: 74 BPM P-R Interval: 134 ms QRS Duration: 68 ms Q-T Interval: 382 ms QTC Calculation(Bazett): 424 ms P False Pass: 12 degrees R False Pass: 14 degrees T False Pass: 31 degrees Normal sinus rhythm Nonspecific T wave abnormality Borderline ECG When compared with ECG of 20-Dec-2023 15:03, No significant change Confirmed by ROSEANN GARZA, [facility] ([id number]) on 06/27/2024 8:19:03 AM ECHO 07/2023 Summary The left ventricular size is normal. The left ventricular wall thickness is mildly increased. The LV systolic function is vigorous. The left ventricular ejection fraction is 70-75%. There are no definite regional wall motion abnormalities. Indeterminate diastolic function. Right ventricular size and systolic function appear grossly normal. The left atrium is normal in size. There is mild aortic stenosis- peak velocity 2.4 m/s, mean gradient 12 mmHg, calculated aortic valve area 1.5 cm2 by continuity equation. Normal CVP estimate. Unable to estimate PASP. Comparison Comparison is made to the study of April 22, 2022. No definite significant change. Coronary CT 2021 IMPRESSION: 1. No evidence of hemodynamically significant coronary artery disease. 2. Moderate nearly circumferential calcific stenosis in the mid RCA, 50-69%. 3. Otherwise mild but widespread predominantly calcific plaque. Airway Mallampati Class: III TM Dist: >3cm Neck ROM: Poor Denture: Upper and Lower Heart: RRR +m Lungs: CTAB Assessment and Plan Assessment Anesthesia Assessment: Anesthesia Plan Discussed and PAT Visit Final Anesthetic Review Family History of Problems with Anesthesia: No History of Problems with Anesthesia: No
[2024-08-29 13:33] LABS: Hematocrit 41.3 % (37.0-47.0); Hemoglobin 13.5 g/dl (12.0-16.0); Mean Corpuscular HGB Conc 32.7 g/dl (31.0-35.0); Mean Corpuscular Hemoglobin 29.7 pg (27.0-33.0); Mean Corpuscular Volume 90.8 fL (80.0-98.0); Mean Platelet Volume 10.9 fL (9.4-12.3); NRBC Pct Auto 0.4 /100WBC (0.0-0.2); Platelet Count 162 X10*3/uL (160-400); Red Blood Count 4.55 X10*6/uL (4.20-5.50); Red Cell Distribution Width 13.3 % (11.0-16.0); White Blood Count 5.5 X10*3/uL (4.8-10.8)
[2024-08-29 13:41] LABS: INTERNATIONAL NORM RATIO 1.5 (0.9-1.1); Prothrombin Time 16.8 SEC (10.9-12.4)
[2024-08-29 14:20] LABS: Alanine Aminotransferase 22 U/L (0-31); Albumin Level 4.2 g/dL (3.5-5.0); Alkaline Phosphatase 120 U/L (39-117); Anion Gap 13 (12-20); Aspartate Amino Transferase 26 U/L (5-31); Bilirubin Total 0.5 mg/dL (0.0-1.0); Blood Urea Nitrogen 16 mg/dL (9-16); Calcium 9.4 mg/dL (8.4-10.2); Carbon Dioxide 28 mmol/L (22-29); Chloride 102 mmol/L (96-108); Creatinine Clr Calc Pharmacy 43.4; Estimated Glomerular Filt Rate 57; Glucose Random 380 mg/dL (60-115); Potassium 4.7 mmol/L (3.3-5.1); Sodium 138 mmol/L (135-145)
[2024-08-29 15:02] LABS: Estimated Average Glucose 197 mg/dL; Hemoglobin A1C 242.8186 umol/L; Hemoglobin A1c % 8.5 % (<6.0); Total Hemoglobin (HGBA1C) 3505.9726 umol/L
--- OUTSIDE RECORDS SUMMARY | 2024-10-08 07:40 | XMS_ITS | Clinical Summary ---
Author Organization [address] [facility] Address [address] [place] [address] Phone Care Team Providers Care Assistant Professor Of Psychology Name Role Phone Massimo Mcclellan Primary Care Provider [phone] Allergies Active Allergy Reactions Criticality Noted Date [...] kidney disease) stage 3, GFR 30-59 ml/min ([facility] V24, [facility] V28) 11/07/2017 Esophageal varices ([facility] V24, [facility] V28) Overview (01/30/2024): 06/2106 EGD, Grade 1 Meniere disease 11/07/2017 Overview (01/30/2024): 2015 Dr Baker Osteopenia 11/07/2017 Pulmonary hypertension ([facility] V24, [facility] V28 ) 11/07/2017 Overview (01/30/2024): 2015 DAVID RVSP- 46 Tubular adenoma of colon 11/07/2017 Overview (01/30/2024): 2005 Type 2 diabetes mellitus wit h cataract ([facility] V24, [facility] V28) 11/07/2017 Fibromyalgia 08/29/2017 Hepatitis C 08/29/2017 Hyperlipidemia 08/29/2017 Hyperparathyroidism ([facility] V24) 08/29/2017 Hypertension 08/29/2017 Kidney stone 08/29/2017 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 Overview (01/30/2024): Never treated Seizure disorder ([facility] V24, [facility] V28) 08/09 Overview (01/30/2024): Not on medication Allergic rhinitis 08/23/2017 Anxiety 08/23/2017 Asthma 08/23/2017 Depression 08/23/2017 DM (diabetes mellitus), type 2 with renal complications ([facility] V24, [facility] V28) 08/23/2017 GERD (gastroesophageal reflux disease) 8 Insomnia 08/23/2017 Osteoarthritis 08/23/2017 Overview (01/30/2024): Lumbar spine Encounters Date Type Department Care Team Description 08/21/2024 1:15 PM EDT Office Visit Orthopedic Surgery [facility] [address] [address] Florian Mott DPM Controlled type 2 diabetes with neuropathy ([facility] V24, [facility] V28) (Primary Dx); Pain in [...] 2:00 PM EDT Office Visit Orthopedic Surgery [facility] [address] [phone] Florian Mott DPM [address] [address] Health Maintenance Due Date Last Done Comments [...] Most Recently Relevant to Health Maintenance Insurance [facility] MEDICARE Member Subscriber Plan / Payer (Ef fective 2012-Present) Name:Leonie Corea Relation to Subscriber:Self Name:Leonie Corea Payer ID:[id number] Group ID:[id number] Type:Not on file Address: [place] [address] [place] [phone] Advance Directives Documents on File Type Date Recorded 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
--- OUTSIDE RECORDS SUMMARY | 2024-10-08 07:40 | XMS_ITS | Encounter Summary ---
Author Organization [facility] Address [address] [place] [address] Care Team Providers Care Glue Specialty Supervisor Name Role Phone Florinda Trinh MD Primary Care Provider Unavailable Massimo Mcclellan PA-C Primary Care Provider Unava ilable Encounter Details Date Type Department Care Team Description 08/01/2017 Transfer Records Medical Records [address] [place] [address] Abstract, Provider Social History Tobacco Use Types Packs/Day Years Used Date Smoking Tobacco: Never Smokeless Tobacco: Never Sex Assigned at Date Recorded Not on file documented as of this encounter Plan of Treatment Not on file documented as of this encounter Visit Diagnoses Not on filedocumented in this encounter Care Teams Glue Specialty Supervisor Relationship Specialty Start Date End Date Florinda Trinh MD PCP - General Family Practice 06/01/17 Massimo Mcclellan PA-C PCP - General Internal Medicine 11/24/23 documented as of this encounter
--- OUTSIDE RECORDS SUMMARY | 2024-10-08 07:40 | XMS_ITS | Patient Health Record ---
Author Organization [facility] Address [address] [place] [address] Care Team Providers Care Adjunct Nursing Faculty Name Role Phone Massimo Figueroa Primary Care Provider Unavail able Miguel A Layne Unavailable [phone] Allergies Allergen (clinical drug ingredient) Drug/Non Drug [...] on an empty stomach Orally Twice a day; Duration: 30 day(s) Not-Taking Tresiba FlexTouch 200 UNIT/ML as directed Subcutaneous Not-Taking Tradjenta Active Celecoxib 200 MG (Prior Auth: Rx Ref#:[id number]) Oral; Duration: 30 Not-Taking Tresiba Active DULoxetine HCl 60 MG (Prior Auth: Rx Ref#:[id number]) Oral; Duration: 30 Not-Taking NovoLOG Active Enalapril Maleate 10 MG (Prior Auth: Rx Ref#:[id number]) Oral; Duration: 90 Not-Taking Acetaminophen Extra Strength 500 MG (Prior Auth: Rx Ref#:[id number]) Oral; Duration: 13 Active Gabapentin 400 MG (Prior Auth: Rx Ref#:[id number]) Oral; Duration: 90 Not-Taking Albuterol Sulfate (2.5 MG/3ML) 0.083% (Prior Auth: Rx Ref#:[id number]) Inhalation; Duration: 10 Active Ferrous Sulfate 325 (65 Fe) MG 1 tablet Orally Once a day; Duration: 30 day(s) Not-Taking Capsaicin 0.025 % 1 application to affected area as needed Externally Three times a day Active Fluticasone Furoate 200 MCG/ACT 1 puff Inhalation Once a day Active hydroCHLOROthiazide 12.5 MG (Prior Auth: Rx Ref#:[id number]) Oral; Duration: 30 Active Polyethylene Glycol 3350 - as directed Active Flunisolide 25 MCG/ACT (0.025%) (Prior Auth: Rx Ref#:[id number]) Nasal; Duration: 25 Active Extra Depth Orthopedic Shoes (1 Pair) with Customized Heat Molded Multidensity Innersoles (3 Pair) as directed Dx: IDDM/Polyneuropathy (E10.42), Hammertoe Foot Deformity (M20.41,M20.42), Preulcerative Skin Lesion(s) (L85.1) 01/12/2023 Active Loratadine 10 MG (Prior Auth: Rx Ref#:[id number]) Oral; Duration: 90 Active Montelukast Sodium 10 MG (Prior Auth: Rx Ref#:[id number]) Oral; Duration: 30 Active oxyCODONE HCl 5 MG (Schedule II Drug) (Prior Auth: Rx Ref#:[id number]) Oral; Duration: 28 Active Pantoprazole Sodium 40 MG (Prior Auth: R x Ref#:[id number]) Oral; Duration: 30 Active Pravastatin Sodium 10 MG (Prior Auth: Rx Ref#:[id number]) Oral; Duration: 30 Active Aspirin Low Dose 81 MG (Prior Auth: Rx Ref#:[id number]) Oral; Duration: 90 Not-Taking Citracal + D Not-Morgan ing Fluconazole 200 MG 1 tablet Orally Once a day; Duration: 10 day(s) Not-Taking Immunizations Vaccine Route Administration [...] Problem Status W/U Status Risk Notes Problem Other hammer toe(s) (acquired), right foot (M20.41) Active confirmed Problem Acquired hammer toe of left foot ([id number] ) Other hammer toe(s) (acquired), left foot (M20.42) Active confirmed Problem Polyneuropathy due to diabetes mellitus type I (128121340) Type 1 diabetes mellitus with diabetic polyneuropathy (E10.42) Active confirmed Plan Of Treatment Pending Test Test Name Order Date X ray : Foot, left 3V 12/18/2018 X ray : Foot, right 3V 12/18/2018 [id number] NAIL, 6 OR MORE 11/10/2021 [id number] NAIL, 6 OR MORE 01/12/2023 [id number] SKIN LESIONS, OVER 4 01/13/20 23 [id number] SKIN LESIONS, OVER 4 11/11/19 22 [id number] SKIN LESIONS, OVER 4 09/19/19 19 [id number] SKIN LESIONS, OVER 4 12/19/19 19 [id number] SKIN LESIONS, OVER 4 03/26/20 19 [id number] SKIN LESIONS, OVER 4 09/09/19 21 [id number] SKIN LESIONS, OVER 4 06/12/19 22 Insurance Providers Payer Name Payer Address Payer Phone Subscriber Number Group Number Insured Name Patient Relationship to Insured Coverage Start Date Coverage End Date [facility] [employer] Claims [address] [place] [id number] Leonie Corea Self - patient is the [...] uterus surgery 1974 parathyroidectomy 2004 kidney stones 2008 Hospitalization History Reason Date(Month/Year) [facility]- check her heart [facility] for kidney stones 05/01
--- OUTSIDE RECORDS SUMMARY | 2024-10-08 07:40 | XMS_ITS | Clinical Summary ---
Author Organization [facility] Address [address] [place] [address] Care Team Providers Care Curve Cleaner Name Role Phone Massimo Mcclellan Primary Care Provider [phone] Source Comments PLEASE NOTE, if this patient [...] asthma, unspecified asthma severity, unspecified whether persistent ([facility]) Inhale 2 Puffs into the lungs every [...] nephropathy, with long-term current use of insulin ([facility]),Type 2 diabetes mellitus with diabetic peripheral angiopathy without gangrene, with long-term current use of insulin ([facility]) Use to test blood glucose three times daily. (Freestyle Lite) 100 Each 2023 Active lancets (FREESTYLE LANCETS) 28 gaugeIndications :Type 2 diabetes mellitus with diabetic nephropathy, with long-term current use of insulin ([facility]),Type 2 diabetes mellitus with diabetic peripheral angiopathy without gangrene, with long-term current use of insulin ([facility]) Use to test blood glucose three times daily. (Freestyle Lancets) 100 Each 11 2023 Active alcohol swabsIndications :Type 2 diabetes mellitus with diabetic nephropathy, with long-term current use of insulin ([facility]),Type 2 diabetes mellitus with diabetic peripheral angiopathy without gangrene, with long-term current use of insulin ([facility]) Use to test blood glucose three times daily. 100 Each 11 2023 Active LORazepam (ATIVAN) 0.5 mg tablet Take 1 Tablet by mouth 3 (three) times daily as needed for anxiety or sleep 90 Tablet 1 2023 Active acetaminophen (TYLENOL) 500 mg tabletIndication s:Other diabetic neurological complication associated with type 2 diabetes mellitus ([facility]),Fibromy algia,Osteoarthr itis, unspecified osteoarthritis type, unspecified site Take 2 Tablets by mouth every 6 (six) hours as needed for pain 60 Tablet 2 2023 Active glucagon (BAQSIMI) 3 mg/actuation spry PLACE 3 MG INTO THE NOSTRIL(S) EVERY MORNING 2 Each 2 2023 Active naloxone (NARCAN) 4 mg/actuation nasal spray Place 1 [place] into the nostril(s) as needed for opioid reversal (Overdose) 2 Each 2023 Active diaper,brief,jarret lt,disposableInd ications:Urinary incontinence without sensory awareness Use one large brief up to 3 times daily. 120 Each 11 2023 Active nut.tx.gluc.into l,lac-free,soy (GLUCERNA ADVANCE) liqdIndications: Primary hypertension,Hyp ercholesterolemi a,Type 2 diabetes mellitus without complication, with long-term current use of insulin ([facility]),Urinary incontinence without sensory awareness,Seizur e disorder ([facility]),Moderat e vascular dementia, unspecified whether behavioral, psychotic, or mood disturbance or anxiety ([facility]),Oxygen dependent,Hyperp arathyroidism ([facility]),Esophag eal varices without bleeding, unspecified esophageal varices type ([facility]),Cirrhos is of liver without ascites, unspecified hepatic cirrhosis type ([facility]),Periphe ral venous insufficiency,Os teopenia, unspecified location,Iron deficiency Take 1 Can by mouth 2 (two) times a day 237 mL 2023 Active triamcinolone (KENALOG) 0.025 % cream [id number] [place], [place] [phone] 60 g 0 Days Supply: 10Sig: APLIQUE AL JACOBO AFECTADA TOPICALLY DOS VECES AL D A POR 10 D ASSource: 2 Outside SourcesAuthorized by: THO HERNANDEZ 2023 Active montelukast (SINGULAIR) 10 mg tablet Take 1 Tablet by mouth nightly at bedtime (Prescribed by delicatessen manager Dr. Berkowitz) 2023 Active ondansetron ODT [...] mouth 2 (two) times Daily (Prescribed by delicatessen manager - Dr. Michael Berkowitz) 2023 Active levocetirizine (XYZAL) 5 mg tablet Take 1 Tablet by mouth every evening [id number] [place], [place] [phone] 90 Each 0 Days Supply: 90Sig: TAKE [...] gangrene, with long-term current use of insulin ([facility]) Inject 16 Units into the skin nightly at bedtime Increased dosing 9 mL 5 2024 Active glucose 4 gram chewable tabletIndication s:Type 2 diabetes mellitus with diabetic peripheral angiopathy without gangrene, with long-term current use of insulin ([facility]) Place 4 Tablets into mouth, chew [...] LOS HDZ 90 Tablet 1 2024 Active amLODIPine (NORVASC) 10 mg tabletIndication s:Essential hypertension Take 1 Tablet by mouth every morning For blood pressure. 90 Tablet 1 2024 Active atorvastatin (LIPITOR) 20 mg tabletIndication s:Type 2 diabetes mellitus with diabetic peripheral angiopathy without gangrene, with long-term current use of insulin ([facility]),Mixed hyperlipidemia Take 1 Tablet by mouth nightly [...] gangrene, with long-term current use of insulin ([facility]) Use to inject insulin up to 4 times daily. 200 Each 11 2024 Active busPIRone (BUSPAR) 15 mg tablet TAKE 1/3- 1/2 HALF TABLET IN THE MORNING AND IN P.M. NEEDED & 1 TAB AT AL ACOSTARSE 180 Tablet 2 2024 Active baclofen 5 mg tab TAKE 1 TABLET TWICE DAILY NEEDED FOR MUSCLE SPASMS 180 Tablet 1 2024 Active insulin aspart (NOVOLOG FLEXPEN U-100 INSULIN) 100 unit/mL (3 mL)Indications:T ype 2 diabetes mellitus with diabetic peripheral angiopathy without gangrene, with long-term current use of insulin ([facility]) Inject 0-16 Units into the skin 3 (three) times daily before meals (Do not use if blood glucose is less than 100 mg/dL) - max 48 units/day 15 mL 5 2024 Active acetaminophen (TYLENOL 8 HOUR) 650 mg CR tabletIndication s:Routine adult health maintenance TOME GAGE TABLETA POR VIA ORAL CADA OCHO HORAS CUANDO SEA NECESARIO FOR PAIN 90 Tablet 1 2024 Active oxyCODONE (ROXICODONE) 10 mg tab tabletIndication s:Sciatica, unspecified laterality,Osteo arthritis, unspecified osteoarthritis type, unspecified site,Fibromyalgi a,Peripheral venous insufficiency,Ce rvical pain (neck),Myofascia l muscle pain Take 1 Tablet by mouth every 6 to 8 (six to eight) hours NEEDED FOR SEVERE PAIN!!. 120 Tablet 2024 Active venlafaxine (EFFEXOR) 37.5 mg tabletIndication s:Cervical pain (neck),Fibromyal wong TOME 1 TABLETA POR VIA ORAL TODOS LOS HDZ 90 Tablet 1 2024 Active venlafaxine (EFFEXOR) 37.5 mg tabletIndication s:Cervical pain (neck),Fibromyal wong Take 1 Tablet by mouth daily 90 Tablet 1 10/02 Discontinued oxyCODONE (ROXICODONE) 10 mg tab tabletIndication s:Sciatica, unspecified laterality,Osteo arthritis, unspecified osteoarthritis type, unspecified site,Fibromyalgi a,Peripheral venous insufficiency,Ce rvical pain (neck),Myofascia l muscle pain Take 1 Tablet by mouth every 6 to 8 (six to eight) hours NEEDED FOR SEVERE PAIN!! 120 Tablet 09/23 Discontinued( Reorder (E-Cancel Not Sent)) Active Problems [...] colon Cervical facet syndrome 08/08/2022 08/09/19 23 Overview (08/28/2024): 08/19/24 [facility] pain management Plan recommend surgical intervention at C4-5 and C5-6 for decompression and fusion to alleviate current pain and prevent further neurological compromise. -instruct patient to arrange an appointment with a surgeon for consultation. -collaborate with PCP for medication management oxycodone -discuss surgical risks & benefits to address current symptoms and prevent future declines -implement follow up and monitor post surgical intervention focusing on reducing falls. Diabetic peripheral angiopathy ([facility]) 0 08/08/2022 08/08/2022 Dry skin 08/08/2022 08/08/2022 Dysphagia 08/08/2022 08/08/2022 Incontinence of urine 08/08/2022 08/08/2022 Early onset Alzheimer's dementia ([facility]) 08/08/2022 08/08/2022 Epigastric pain 08/08/2022 08/08/2022 Left ventricular hypertrophy 08/08/202204/2022 Overview (03/05/2024): 12/20/23 at [facility] Cardio Chest pain Improved with Imdur; unclear [...] may be normal for the patient's age. long term care pharmacist current use of anticoagulant therapy 0 08/08/2022 08/08/2022 Memory impairment 08/08/2022 08/08/2022 Myofascial muscle pain 08/08/2022 JENNIFER (obstructive sleep apnea) 08/08/2022 Oxygen dependent 08/08/2022 08/08/2022 Restless leg syndrome 08/08/2022 08/08/2022 Subclinical hypothyroidism 08/08/202208/08 Unspecified cirrhosis of liver ([facility]) 0 08/08/2022 08/08/2022 Vascular dementia ([facility]) 08/08/2022 08/08/2022 Cataract 11/07/2017 08/08/2022 Overview (08/08/2022): left catarct surgery on 08/28/08 by SURGEON: Tana Coronado M.D. left catarct surgery on 08/28/08 by SURGEON: Tana Coronado M.D. CKD (chronic kidney disease) stage 3, GFR 30-59 ml/min ([facility]) 11/07/2017 08/08/2022 Meniere disease 11/07/2017 08/08/2022 Overview (08/08/2022): 2016 Dr Baker Pulmonary hypertension ([facility]) 8 08/08/2022 Overview (08/08/2022): b/l submassive PE diagnosed on Dec [address] [facility] b/l submassive PE diagnosed on Dec [address] [facility] 2016 DAVID RVSP- 46 Tubular adenoma of colon 11/07/2017 023 Overview (08/08/2022): 2005 Hyperparathyroidism ([facility]) 08/29/2017 08/08/2022 Overview (08/08/2022): Right lower parathyroidectomy. 06/16/08 SURGEON: Danny Marie M.D. LANG PATH THERAPIST: Naima Bowling M.D. Kidney stone 08/29/2017 08/08/2022 Hyperlipidemia LDL goal <70 08/29/2017 05/0 04/2022 Essential hypertension 08/29/2017 Seizure disorder ([facility]) 08/29/2017 08/08/2022 Overview (08/08/2022): Not on medication Viral hepatitis C 08/29/2017 08/08/2022 Osteoarthrosis 08/23/2017 08/08/2022 Overview (08/08/2022): EGD on 06/24/16 by GI, Dr Damien Dobbins w gastritis and esophageal varices grade 1 Lumbar spine Allergic rhinitis 08/23/2017 08/08/2022 Depression 08/23/2017 08/08/2022 Asthma-chronic obstructive p ulmonary disease overlap syndrome ([facility]) 08/23/2017 08/08/2022 Type 2 diabetes mellitus wit h diabetic peripheral angiopathy without gangrene, with long-term current use of insulin ([facility]) 08/23/2017 08/08/2022 Overview (08/30/2024): DM dx: 51 years old per patient reports Glucometer: Freestyle Lite (denies interest in CGM) Current Diabetes RX: Tresiba U-200 - inject 18 units daily at bedtime Insulin aspart - inject 0-18 units three times daily before meals (do not use if BG <100 mg/dL - max 54 units/day) MADDIE-I/ARB: Enalapril hyper K per patient reports Statin: atorvastatin 20 mg daily every evening Pneumococcal vaccine: PCV13 (05/12/14) PPSV23 (11/10/10, 05/20/04) Diabetes foot exam: 04/25/24 at [facility] - notes on file 02/21/24 at [facility] - notes on file Diabetes retinal [...] new glasses RX, optional F/U 1 year [facility] Endocrinology: 11/24/22 Start Tradjenta 5 mg Continue [...] 12/2015, involving 2 of 2 peroneal veins, [facility] History of pulmonary embolism 07/19/2017 Overview (08/08/2022): Bilateral, 12/2015, [facility] Tricuspid valve insufficiency 05/24/2017 Overview (03/05/2024): 12/20/23 at [facility] Cardio Chest pain Improved with Imdur; unclear [...] dysfunction 05/24/2017 08/08/2022 Overview (03/05/2024): 12/20/23 at [facility] Cardio Chest pain Improved with Imdur; unclear [...] normal for the patient's age. Esophageal varices ([facility]) 06/24/2016 08/08/2022 Overview (08/08/2022): endoscopy 10/05/2018 w non bleeding grade 1 esophageal varicesEGD on 06/24/16 by GIDr Damien gastritis and esophageal varices grade 1 06/2106 EGD, Grade 1 endoscopy 10/05/2018 w non bleeding grade 1 esophageal varicesEGD on 06/24/[address] Damien CARUSO gastritis and esophageal varices grade 1 Right ventricular dilation 12/22/201508/08 Overview (08/08/2022): TTE 12/22/[address] [facility]: RV dilatation, RVSP 46 TTE 12/22/[address] [facility]: RV dilatation, RVSP 46 Anemia 12/21/2015 08/08/2022 Deep vein thrombosis (DVT) ([facility]) 12/2008/08/2022 Overview (08/08/2022): LE US- DVT involving 2 of 2 peroneal veins diagnosed on Dec 20 [facility] LE US- DVT involving 2 of 2 peroneal veins diagnosed on Dec 20 [facility] Positive PPD 10/09/2014 08/08/2022 Overview (08/08/2022): [...] Peripheral venous insufficiency 10/31/2011 08/08/2022 Diabetic neuropathy ([facility]) 09/19/2007 08/08/2022 Sciatica 05/24/2004 08/08/2022 Tubular adenoma 04/10/2004 08/08/2022 Overview (08/08/2022): [facility] colo July 2009 exc for 2 hyperplastic polypsColonoscopy 2004 at [facility] per letter of Dr Amor Dobbins Tubular adenoma 04/10/2004 08/08/2022 Overview (08/08/2022): [facility] colo July 2009 exc for 2 hyperplastic polypsColonoscopy 2004 at [facility] per letter of Dr Amor Dobbins Resolved Problems Problem Noted Date Diagnosed Date Resolved Date Obesity 08/08/2022 08/08/2022 07/24/2024 Encounters Date Type Department Care Team Description 08/20/2024 Results Follow-Up [address] [phone] Darwin Encinas, PharmD 07/24/2024 3:40 PM EDT Telemedicine Visit [address] [phone] Darwin Encinas, PharmD from Last 3 Months Immunizations Immunization Administration [...] e alcohol) Social Connections Answer Date Recorded How often do you feel lonely or isolated from th ose around you? 2 10/25/2023 Financial Resource Strain Answer Date R ecorded Hard to pay for: Food 1 10/25/2023 Stress Answer Date Recorded Do you feel these kinds of stress these days? 2 10/25/2023 Physical Activity Answer Date Recorded Physical Activity 0 11/09/2020 Food Insecurity Answer Date Recorded Within the past 12 months, t he food you bought just didn't last and you didn't have enough money to get more. 2 10/25/19 Transportation Needs Answer Date Record ed Hard to pay for: Transportation 1 10/25/2023 Housing Stability Answer Date Recorded Hard to pay for: Rent/Mortgage payment 1 10/25/2023 Safety and Environment Answer Date Cornelio rded Safety 1 05/08/2023 Utilities Answer Date Recorded Hard to pay for: Utilities 1 10/24 Employment Answer Date Recorded Stress 0 08/08/2022 [...] 69 05/06/2024 3:36 PM EST Temperature 36.8 C (98.3 F) 12/27/2023 3:04 PM EDT Respiratory Rate 16 05/06/2024 3:36 PM EST [...] 3 - Ri sk 3-dose series) 2004 Imm-RSV (adult) (1 - 1-dose 75+ series) 07/06/2019 Hepatocellular Carcinoma Scr eening (HCC) 04/23/2023 10/21/2022 Imm-DTaP/Tdap/Td (2 - Td or Tdap) 05/12/2024 05/12/2014, 11/10/2010, 11/10/2010 [id number] ( season) 2024 12/27/2023, 02/14/2023, 05/25/2022, Additional history exists Diabetes Foot Exam 10/24/2024 10/25/2023 Falls Prevention 10/24/2024 10/25/2023 Serum Creatinine 10/24/2024 10/25/2023, 04/2022, 12/25/2015 TSH Monitoring 10/24/2024 10/25/2023, 08/08/2022 Depression Monitoring 11/19/2024 08/19/2024 , 10/25/2023, 05/08/2023, Additional history exists Hemoglobin A1c 11/19/2024 08/19/2024, 04/10, 10/25/2023, Additional history exists Tobacco Screening 06/06/2025 06/06/2024, 08/25/2023 EGD (Upper Endoscopy) 08/08/2025 08/08/2022 Lipid Screening 08/19/2025 08/19/2024, 04/11, 12/23/2015 Urine Albumin Creatinine Rat io Screening 08/19/2025 08/19/2024, 07/26/2023 Imm-Pneumococcal 50+ Completed 05/12/2014, 11/10/2010, 05/20/2004 Imm-Zoster, Recombinant Completed 12/09/19, 09/15/2021, 10/16/2012 Bone Density Screening Completed 11/22/2022 Imm-Influenza Completed 12/27/2023, 04/11, 02/04/2023, Additional history exists Retinopathy Screening Discontinued 04/24/2024, 025 Alcohol and Drug Screen Completed 05/06/19, 05/08/2023, 05/08/2023, Additional history exists Procedures Procedure Name Priority Date/Time Associated Diagnosis Comments IMAGING SCANNED DOCUMENT 09/19/2024 3:00 AM EDT OTHER ORDERS SCANNED DOCUMENT 09/19/2024 3:00 AM EDT OTHER ORDERS SCANNED DOCUMENT 09/19/2024 3:00 AM EDT REFERRAL TO NEUROPSYCHOLOGY Routine 08/30/2024 3:00 AM EDT Seizure disorder ([facility]) Moderate vascular dementia, unspecified whether behavioral, psychotic, or mood disturbance or anxiety ([facility]) LIPID PANEL Routine 08/19/2024 9:25 AM EDT Type 2 diabetes mellitus with diabetic peripheral angiopathy without gangrene, with long-term current use of insulin ([facility]) Hyperlipidemia LDL goal <70 VITAMIN B12 & FOLATE Routine 08/19/2024 9:25 AM EDT Type 2 diabetes mellitus with diabetic peripheral angiopathy without gangrene, with long-term current use of insulin ([facility]) MICROALBUMIN/CREATININ E RATIO, URINE, RANDOM Routine 08/19/2024 9:25 AM EDT Type 2 diabetes mellitus with diabetic peripheral angiopathy without gangrene, with long-term current use of insulin ([facility]) HEMOGLOBIN GLYCOSYLATED A1C Routine 08/19/2024 9:25 AM EDT Type 2 diabetes mellitus with diabetic peripheral angiopathy without gangrene, with long-term current use of insulin ([facility]) REFERRAL TO PAIN MANAGEMENT Routine 08/19/2024 3:00 AM EDT Cervical pain (neck) Fibromyalgia IMAGING SCANNED DOCUMENT 08/09/2024 3:00 AM EDT IMAGING SCANNED DOCUMENT 08/09/2024 3:00 AM EDT REFERRAL SCANNED DOCUMENT 07/24/2024 3:00 AM EDT REFERRAL SCANNED DOCUMENT 07/19/2024 3:00 AM EDT EYE EXAM 04/24/2024 3:00 AM EST TSH W/RFLX FREE T4 Routine 10/25/2023 11 :27 AM EDT Hyperparathyroidism ([facility]) Prediabetes COMPREHENSIVE METABOLIC PANEL Routine 10/25/2023 11:27 AM EDT Cirrhosis of liver without ascites, unspecified hepatic cirrhosis type (HCC-CMS) Hyperparathyroidism (HCC-CMS) Type 2 diabetes mellitus with diabetic peripheral angiopathy without gangrene, with long-term current use of insulin ([facility]) Diabetic mononeuropathy associated with type 2 diabetes mellitus ([facility]CC[facility]CMS) Hepatitis C virus infection without hepatic coma, unspecified chronicity Resistant hypertension HISTORIC DEXA SCAN 11/22/2022 3: 00 AM EDT US ABDOMEN ULTRASOUND Routine 10/21/2022 3:00 AM EDT Abdominal pain, unspecified abdominal location UPPER GI ENDOSCOPY Routine 08/08/2022 11 :41 AM EDT Varices of esophagus determined by endoscopy ([facility]) from Last 3 Months or Most Recently Relevant to Health Maintenance Results * IMAGING SCANNED DOCUMENT (09/19/2024 3:00 AM EDT) Only the most recent of3 resultswithin the time period is included. 09/19/2024 3:00 AM EDT us Massiom Mcclellan PA SCAN IMAGING Final Result * OTHER ORDERS SCANNED DOCUMENT (09/19/2024 3:00 AM EDT) Only the most recent of2 resultswithin the time period is included. 09/19/2024 3:00 AM EDT us Massimo Blackburnvais PA SCAN OTHER ORDERS Final Result * REFERRAL TO NEUROPSYCHOLOGY (08/30/2024 3:00 AM EDT) 08/30/2024 3:00 AM EDT us Massimo PACHECO REFERRAL Final Result * MICROALBUMIN/CREATININE RATIO, URINE, RANDOM (08/19/2024 9:25 AM EDT) CREATININE, RANDOM URINE 109 20 - 275 mg/dL [facility] MICROALBUMIN 2.0 mg/dL [email or web address] [facility] Comment: Reference Range Not established MICROALBUMIN/CREA TININE RATIO, RANDOM URINE 18 <30 mg/g creat [facility] Comment: The ADA defines abnormalities in albumin excretion as follows: Albuminuria Category Result (mg/g creatinine) Normal to Mildly increased <30 Moderately increased 30-299 Severely increased > OR = 300 The ADA recommends that at least two of three specimens collected within a 3-6 month period be abnormal before considering a patient to be within a diagnostic category. Urine Urine specimen / Unknown 08/19/2024 9:25 AM EDT 08/19/2024 9:25 AM EDT Narrative [employer] [facility] - 08/20/2024 9:19 PM EDT FASTING:YES [facility] PharmD LAB URINE AMBULATORY Rubi l Result Performing Organization Address [facility] Co de Phone Number [employer] [address] [address], [facility] [address] [address] * VITAMIN B12 & FOLATE (08/19/2024 9:25 AM EDT) VITAMIN B12 623 200 - 1,100 pg/mL [employer] FOLATE, SERUM 20.0 5.5 ng/mL [employer] Comment: Reference Range Low: <3.4 Borderline: 3.4-5.4 Normal: >5.4 Blood Blood / Unknown 08/19/2024 9 :25 AM EDT 08/19/2024 9:25 AM EDT Narrative [employer] [facility] - 08/20/2024 9:19 PM EDT FASTING:YES Arccos Golfe [place] PharmD LAB - BLOOD DRAW Edited R esult - Final Performing Organization Address [facility] de Phone Number [facility] [address] [address], [employer] [address] [address] * (ABNORMAL) HEMOGLOBIN GLYCOSYLATED A1C (08/19/2024 9:25 AM EDT) HEMOGLOBIN A1C 8.9(H) <5.7 % [employer] Comment: For someone without known diabetes, a [...] A1c for diagnosis of diabetes for children. Blood Blood / Unknown 08/19/2024 9 :25 AM EDT 08/19/2024 9:25 AM EDT Narrative [employer] - 08/20/2024 9:19 PM EDT FASTING:YES Darwin Encinas PharmD LAB - BLOOD DRAW Edited R esult - Final Performing Organization Address [facility]/ZIP Co de Phone Number [facility] [address] [address], [employer] [address] [address] * LIPID PANEL (08/19/2024 9:25 AM EDT) [facility] Signature CHOLESTEROL, TOTAL 155 <200 mg/dL [facility] HDL CHOLESTEROL 57 > OR = 50 mg/dL [facility] TRIGLYCERIDES 97 <150 mg/dL [facility] LDL-CHOLESTEROL 80 99 mg/dL (calc) [facility] Comment: Reference range: <100 Desirable range <100 mg/dL for primary prevention; <70 mg/dL for patients with CHD or diabetic patients with > or = 2 CHD risk factors. LDL-C is now calculated using the Gilles-Olga calculation, which is a validated novel method providing better accuracy than the Friedewald equation in the estimation of LDL-C. Gilles SS et al. JESUS. 2013;310(19): 3832-2954 (http://education.[employer]/faq/YKV593) CHOL/HDLC RATIO 2.7 <5.0 (calc) [facility] NON-HDL CHOLESTEROL 98 <130 mg/dL (calc) [employer] Comment: For patients with diabetes plus 1 major ASCVD risk factor, treating to a non-HDL-C goal of <100 mg/dL (LDL-C of <70 mg/dL) is considered a therapeutic option. Blood Blood / Unknown 08/19/2024 9 :25 AM EDT 08/19/2024 9:25 AM EDT Narrative [employer] [facility] - 08/20/2024 9:19 PM EDT FASTING:YES Darwin Encinas PharmD LAB - BLOOD DRAW Final Re sult Performing Organization Address [facility]/ZIP Co de Phone Number [employer] [address] [address], [email or web address] [address] [address] * REFERRAL TO PAIN MANAGEMENT (08/19/2024 3:00 AM EDT) 08/19/2024 3:00 AM EDT us Mark Morales INSTALLATION TECHNICIAN REFERRAL Final Result * REFERRAL SCANNED DOCUMENT (07/24/2024 3:00 AM EDT) Only the most recent of2 resultswithin the time period is included. 07/24/2024 3:00 AM EDT us Massimo PACHECO SCAN REFERRAL Final Result * EYE EXAM (04/24/2024 3:00 AM EST) 04/24/2024 3:00 AM EST us Massimo PACHECO OTHER Edited Result - Final * TSH W/RFLX FREE T4 (10/25/2023 11:27 AM EDT) TSH W/REFLEX TO FT4 2.80 0.40 - 4.50 mIU/L [facility] Blood Blood / Unknown 10/25/2023 1 1:27 AM EDT 10/25/2023 11:27 AM EDT us Massimo PACHECO LAB - BLOOD DRAW Final Result [facility] [address] [address], [email or web address] [address] [address] * (ABNORMAL) COMPREHENSIVE METABOLIC PANEL (10/25/2023 11:27 AM EDT) GLUCOSE 118(H) 65 - 99 mg/dL [facility] Comment: Fasting reference interval For someone without known diabetes, a glucose value between 100 and 125 mg/dL is consistent with prediabetes and should be confirmed with a follow-up test. UREA NITROGEN (BUN) 16 7 - 25 mg/dL [facility] CREATININE (blood) 0.85 0.60 - 1.00 mg/dL [facility] EGFR 70 > OR = 60 mL/min/1. 73m2 [facility] BUN/CREATININE RATIO SEE NOTE: 6 - [facility] Comment: Not Reported: BUN and Creatinine are within reference range. SODIUM 142 135 - 146 mmol/L [facility] POTASSIUM 4.8 3.5 - 5.3 mmol/L [facility] CHLORIDE 104 98 - 110 mmol/L [facility] CARBON DIOXIDE 29 20 - 32 mmol/L [facility] CALCIUM 9.5 8.6 - 10.4 mg/dL [facility] PROTEIN, TOTAL 7.0 6.1 - 8.1 g/dL [facility] ALBUMIN 4.3 3.6 - 5.1 g/dL [facility] GLOBULIN 2.7 1.9 - 3.7 g/dL (calc) [facility] ALBUMIN/GLOBULI N RATIO 1.6 1.0 - 2.5 (calc) [facility] BILIRUBIN, TOTAL 0.5 0.2 - 1.2 mg/dL [facility] ALKALINE PHOSPHATASE 87 37 - 153 U/L [facility] AST 16 10 - 35 U/L [facility] ALT 10 6 - 29 U/L [facility] Blood Blood / Unknown 10/25/2023 1 1:27 AM EDT 10/25/2023 11:27 AM EDT us Massimo PACHECO LAB - BLOOD DRAW Final Result [facility] [address] [address], [facility] [address] [address] * HISTORIC DEXA SCAN (11/22/2022 3:00 AM EDT) 11/22/2022 3:00 AM EDT us Massimo PACHECO IMG DXA Final Result * US ABDOMEN ULTRASOUND (CAPE COD) (10/21/2022 3:00 AM EDT) 10/21/2022 3:00 AM EDT us Massimo PACHECO IMG ULTRASOUND Edited Result - Final from Last 3 Months or Most Recently Relevant to Health Maintenance Insurance [facility] Member Subscriber Plan / Payer ( fective 2017-Present) Name:Leonie Corea Relation to Subscriber:Self Name:Leonie Corea Payer ID:[id number] Group ID:Not on file Type:Medicare Address: [address] Care Teams Curve Cleaner Relationship Specialty Start Date End Date Massimo Mcclellan PA [address] [place] [address] PCP - General [facility] 05/13/22
--- OUTSIDE RECORDS SUMMARY | 2024-10-08 07:40 | XMS_ITS | Data Portability ---
Author Organization [employer] [facility], [facility] Address [address] [place] [address] Care Team Providers Care Jawbone Puller Name Role Phone FELY COVARRUBIAS Primary Care Provider HIM CCA OTHER Assessment Encounter Date Assessment Date Assessment LastModified by Organization Details LastModified Time 02/29/2024 02/29/2024 Evaluation in the field was performed by my acid cutter colleague, as noted above, I provided real-time [...] Assessment and Plan as documented by the Mortar Man. Patient given the opportunity to ask questions. Our service contacted for an assessment of: Urinary frequency As per above, patient with approximately several days of urinary frequency. Denies dysuria, abdominal pain, suprapubic pain, flank pain, fever, chills. Does have diabetes and sugars have been running high. Does not specifically endorse polydipsia. No history of frequent urinary tract infections Per acid cutter on the scene, vital signs are stable [...] Appointments None recorded. Lab urinalysis, dipstick 2023 [facility], [address] [place] [address], [id number] 4 19:24:48 culture, urine 2023 [facility] (Centralized Electronic Ordering - All Locations), Patient Can Go To The Location Of Their Choice, [id number] 5 20:05:30 urinalysis, dipstick [address], [address] 4 18:47:22 culture, urine 2023 [facility] (Centralized Electronic Ordering - All Locations), Patient Can Go To The Location Of Their Choice, [id number] 4 22:06:00 Referral None recorded. Procedures None recorded. Surgeries None recorded. Imaging None recorded. Medication Orders cefuroxime axetil 500 mg tablet 2023 [facility] #[id number], [address] [place] [address], [address], 17:49:37 Patient TargetsNo targets recorded. Patient InstructionsNo instructions recorded. Reason for Referral None Reported. Results Created Date Observation Date Name Description Value Unit Range Abnormal Flag Note LastModifiedBy Organization Detail LastModifiedTime 02/29/20 24 03/01/2024 URINE CULTU RE, ROUTI NE urine culture, routine Final report Not Available [facility] ([facility]) [address] [facility], [place], [address], 03/01/2024 22:06:00 02/29/20 24 03/01/2024 URINE CULTU RE, ROUTI NE result 1 No growth Not Available [facility] ([facility]) [address] [place], [address], 03/01/2024 22:06:00 04/09/20 24 04/10/2024 URINE CULTU RE, ROUTI NE urine culture, routine Final report Not Available [facility] ([facility]) [address] [facility], [place], [address], 04/10/2024 20:05:30 04/09/20 24 04/10/2024 URINE CULTU RE, ROUTI NE result 1 No growth Not Available [facility] ([facility]) [address] [place], [address], 04/10/2024 20:05:30 Result Notes None recorded. Medical Equipment None Reported. Allergies Allergen ID Allergen Name Allergen Category Reaction Reaction Severity Criticality Documentation Date Start Date Code Code System Note Provider Name and Address Organization Details Recorded Time 54135 enalapril Not available Not available Not available Not available 02/29/2024 3827 RxNorm Not Available [facility] - production 4 11:30:38 9685 Product containin g penicilli n (product) medicatio n Not available Not available Not available 02/06/2024 83867 8001 SNOMED Not Available [facility] - production 04:14:41 9686 lidocaine medicatio n Not available Not available Not available 02/06/2024 6387 RxNorm Not Available [facility] - production 4 04:14:41 9687 morphine medicatio n Not available Not available Not available 02/06/2024 7052 RxNorm Not Available [facility] 4 04:14:41 Medications Name Sig Start Date [...] Not Available No t Available Dexcom G7 Hand Zipper Trimmer USE TO TEST BLOOD GLUCOSE CONTINUOUSL Y (DEXCOM G7 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) active Not Available Not Available No t [...] /min 113 mm[Hg] 74 mm[Hg] Not Available [employer] [facility] [employer] 4 13:36:27 Date Recorded Oxygen saturation Oxygen saturation in Arterial blood by Pulse oximetry Body height Heart rate Respiratory rate Body temperature Body weight Systolic blood pressure Diastolic blood pressure Provider Name and Address Organization Details Last Updated DateTime 4 98 % 98 % 160.02 cm 67 /min 16 /min 98.3 [degF] 14123.6 16 g 117 mm[Hg] 61 mm[Hg] Not Available [employer] 4 17:46:27 Date Recorded Body temperature Body weight Body height Heart rate Oxygen saturation Oxygen saturation in Arterial blood by Pulse oximetry Respiratory rate Systolic blood pressure Diastolic blood pressure Provider Name and Address Organization Details Last Updated DateTime 4 98.7 [degF] 03741.9 84 g 160.02 cm 80 /min 99 % 99 % 18 /min 117 mm[Hg] 67 mm[Hg] Not Available [employer] 4 17:07:34 Social History None recorded. Functional Status None recorded. Mental Status None recorded. Family History Nothing Reported. Medical History No medical history recorded. Gynecological HistoryNo gynecological history recorded. Obstetrics History GPAL:G 0 P 0 0 0 0 Past Encounters Encounter ID Performer Location Encounter Start Date Encounter Closed Date Diagnosis/Indication Diagnosis SNOMED-CT Code Diagnosis ICD10 Code Diagnosis Note [id number] Wild Mendoza MD Main - [facility] [address] [place] [address] 06/12/2023 13:36:18 06/12/2023 18:56:08 Contusion of left lower leg [id number] 9504410 S80.12XA This 77-year-ol d female bruised her left anterior lower leg when getting out of the bathtub yesterday. She appears to has a bruise with no deformity. She is taking blood thinners. I recommende d ice packs and elevation. She will follow-up with her PCP for any persistent symptoms. The patient agreed with this plan. [id number] Amina Fatima MD [address] [address] 02/29/2024 17:46:24 03/01/2024 00:46:10 Dysuria 86768342 R30.0 [id number] Kimmy Chang MD [address] [address] 04/09/2024 16:51:24 04/09/2024 22:30:06 Urinary symptoms 220715449 R39.9 Increased frequency of urination [id number] R35.0 Health Concerns Section Related Observation LastModified by Organization Detai ls LastModified Time None Recorded Concern Status LastModified by Organization Details LastModified Time None Recorded Advance Directives Directive None Recorded Payers Insurance Date Sequence Insurance Name Policy Number Policy Martinez Covered Member ID Martinez Member ID Guarantor Name 04/09/2024 1 [facility] - DOS ON OR AFTER 2022 - DUAL ELIGIBLE - [employer] OPTIONS AND ONE CARE (MEDICARE REPLACEMENT/ADV ANTAGE - HMO) Leonie Corea [id number] Leonie Corea Notes Date Note Type Note Provider Name and Address Organization Details Recorded Time 06/12/2023 text/html [facility] Nurse Triage Notes (Odessa Perez): Reason For Request: Fall Chief Complaints: Injury PMH: Heart Disease, Diabetes, Hypertension Allergies: Penicillin, Lidocaine, Morphine Comments: Called back member and resident care aid for c/o falling yesterday when getting out [...] but no call back yet. Verified name//address. [facility] HEIDY Mendoza MD [address] [place] [address],[address], [place], [address], [email or web address] 06/12/2023 13:41:12 02/29/2024 text/html CRC Nurse Triage Notes (Velia Shields): Reason For Request: UTI Patient Reports: Painful urination; Frequent and increased urination with flank pain; Painful urination with or without fever Denies: Inability to fully empty bladder Chief Complaints: Urinary symptoms, Diabetes-related PMH: Coronary Artery Disease, Hypertension, Diabetes Mellitus Type 2 Comments: Senior Staff Consultant verified the name//address and phone number.Patient is [...] s/s and seek emergency treatment if needed Mortar Man Organization Information for Denilson Diaz [employer] Legal Name: [employer] ([employer]). Address: [address] [place] [address], Stripper Opaquer: Tobin Mclain MD [place] No.: [id number] [employer] POC Test Results from Denilson Diaz Urine Dipstick (17:44:16) Urine leukocytes: + ANT Urine nitrites: - NIT Urine urobilinogen: - URO Urine protein: +/- PRO Urine pH: 5.0 pH Urine blood: +++ BLO Urine specific gravity: 1.010 SG Urine ketones: - KET Urine bilirubin: +/- FRANTZ Urine glucose: - GLU .................. .................. .................. .................. .................. .................. .................. ............... Mortar Man Note From Denilson Diaz[facility] Pt presents with her daughter at home. Daughter reports pt had onset of burning with urination yesterday in addition to urinary frequency. Daughter also questioning some possible confusion. V/S taken as listed. Pt afebrile. Pt was able to provide urine specimen with dipstick analysis showing leukocytes and blood. Urine culture specimem obtained. Consulted with [facility] Dr. Fatima who started pt on antibiotics and requested urine culture sent to [facility]. Reviewed red flags for ED with pt and daughter. Pt education provided. [facility] Lab Orders: urinalysis, dipstick: Performed .................. .................. .................. .................. .................. .................. .................. ............... [facility] Consulted: Amina Fatima .................. .................. .................. .................. .................. .................. .................. ............... Disposition: Fulfilled Amina Fatima MD [address] [facility],[address], [place], [address], [email or web address] 02/29/2024 19:43:53 04/09/2024 text/html CRC Nurse Triage [...] Mellitus Type 2, Chronic Kidney Disease Comments: Senior Staff Consultant verified the patient's name//address and phone number. [...] emergency treatment if needed -Lupe Garza RN Mortar Man Organization Information for Laura Woody Photo[employer] Legal Name: [email or web address] Address: [address] [place] [address], Stripper Opaquer: Tobin Mclain MD CLIA No.: [id number] Mortar Man POC Test Results from Laura Woody Blood [...] under Documents section. Kimmy Chang MD [address] [facility],[address], [place], [address], [employer] 04/09/2024 22:48:45 OBGyn Episode No OBEpisode recorded.
== END 2024-08-29 00:01 | disposition home or self-care (01) ==
LOC: HO.PAT
PROVIDERS: Nurse Practitioner; PCP Physician Assistant; Visit Provider Neurological Surgery
DX: Z13.1 Encounter for screening for diabetes mellitus (principal); G95.9 Disease of spinal cord, unspecified; Z98.1 Arthrodesis status; Z79.01 Long term (current) use of anticoagulants
CPT/HCPCS: 36415; 80053; 83036; 85027; 85610

== ENCOUNTER 2024-09-06 10:57 | Outpatient (AMB) | payer OTHER, SELFPAY ==
[2024-09-06 11:11] VITALS: BP 110/52; PULSE 80; O2SAT 96; BMI 25.8
--- NOTE | 2024-09-06 11:11 | MHC.OFFVIS ---
Vital Signs 09/06/24 11:11 Height 5 ft 3 in Weight 145 lb 8.081 oz BMI 25.8 BP 110/52 L Blood Pressure Location Rt brachial Pulse 80 Pulse Source Pulse Oximeter Pulse Oximetry (%) 96 Oxygen Delivery Method Room Air Intake Visit Reasons: COPD Allergies bee pollen [bee stings] Allergy (Severe, Verified 09/06/24 11:13) Anaphylaxis lidocaine [From LIDODERM] Allergy (Severe, Verified 09/06/24 11:13) BLISTERS from adhesive morphine [MORPHINE] Allergy (Severe, Verified 09/06/24 11:13) PO will cause itching, can tolerate IV Penicillins [PENICILLINS] Allergy (Severe, Verified 09/06/24 11:13) SWELLING/ITCHING ampicillin Allergy (Intermediate, Verified 09/06/24 11:13) rash/hives gabapentin [GABAPENTIN] Allergy (Intermediate, Verified 09/06/24 11:13) SORES IN MOUTH/AGITATION enalapril Adverse Reaction (Severe, Verified 09/06/24 11:13) hyperkalemia HPI Comments Details: The patient is a 79 year-old woman with a known history of pulmonary emboli with the family history. In addition to that she has a history of sleep apnea and asthma COPD overlap syndrome. Since we last spoke the patient has been complaining of multiple complaints. She does have leg swelling and pain. Mainly her left leg. 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 This is done at [facility]. Her D-dimer was elevated at the time. We did review her CT scan of the chest that demonstrated extensive blood clot with submassive PE due to the RV strain. She had been treated in [place] for that and did complete a course of Coumadin. She has no longer on any anticoagulation. She has been complaining worsening shortness of breath and chest pain. This discomfort is substernal in his about 4-10 in severity. Denies any radiation. Some respite phasic component. At this point is better. She did need to have an urgent CTA to rule out pulmonary emboli. The reading was that she did have sub subsegmental pulmonary emboli. I did look at the scan myself and I do think she had bilateral subsegmental pulmonary emboli. That night she was started on Eliquis. She has been tolerating the Eliquis without any side effects. Although she feels a little pale today feels like she could be anemic. We did review her blood work from the last visit demonstrating normal SABINO and normal CCP. Although her D-dimer was elevated does have she ended up with her CT scan of the chest. Her potassium was also elevated at the time. The patient has had multiple blood clots as well and now also positive family history with other extended family members. Therefore, is not a reasonable to at least check her prothrombin mutation and factor 5 Leiden. Her hemoglobin was down to about 9 from 12. She denies any active bleeding GI bleeding or any black stools. I am concerned because she is taking the blood thinner. She is scheduled for an upper and lower endoscopy. 05/27/2020 the patient is here for pulmonary follow-up visit. Overall she is doing lot better. She has recovered very well from the COVID infection that she had. Her last CT scan of the chest from March demonstrated some ground-glass opacities likely residual from her COVID infection. She continues on the Eliquis and seems to be tolerating the anticoagulation well. Denies any evidence of any recurrent clots. The patient was ambulated with a 6 minutes walk test and she maintain a pulse ox between 98%-99%. Heart rate also states stable within 80s to 90s. Her Brant score was lower on 05/20. Patient did very well walking with her cane. However, she has been very dizzy lately and she has had episodes of near falls. She needs to be very careful with her balance and always using her assistive device. The patient has struggled to use his CPAP. The CPAP therapy has been very difficult. Therefore, the patient will talk to her [employer] company about returning it. The patient will continue using oxygen at nighttime at 2 L. 12/28/2021 the patient is here for a pulmonary follow-up visit. Overall the patient seems to be doing relatively well from a respiratory status. She still complains of the substernal chest discomfort. She does respond well to nitroglycerin. She did follow-up with cardiology sometime in early December. Did describe the chest discomfort as a typical. She had a full cardiac workup without any evidence of any at the heart disease. The patient has complaining about bruising. She has been on Eliquis and also on Plavix. She has not noticed any hematuria or any issues with blood in the stool. A 1 point she did have significant anemia. the patient is concerned about the use of Plavix. I did look at the cardiology notes and was no mention of the use of Plavix. Therefore, I did tell the patient to hold the Plavix until she speaks to her primary care doctor to clarify if he does need to be on this medication. Med because concerns for risk of bleeding since she has had issues with anemia in the past. The patient has been having some reflux symptoms. I did send her additional Maalox in case her chest discomfort is related to esophageal spasms she is responding well to the Trelegy inhaler. She has not had to use his rescue inhaler and she has not required any prednisone. She continues use the oxygen with sleep. This has been affecting beneficial and she will continue for now. 04/12/2022 the patient has a telephone visit today. The daughter had called initially that the patient was feeling short of breath and also dizzy. She noted that her pulse ox was significantly low Around 60%. She also has a blood pressure cuff at home and she noted that her blood pressure was low with a systolic blood pressure in the 80s. However, the patient has been reluctant to go to the hospital. The patient states that the last time she went to the hospital she was waiting in the hallway and she is very uncomfortable. Recently she was diagnosed with UTI and was placed on antibiotics. She was also found to have kidney stones and she had to postpone the procedure due to her new symptoms. Based on the fact the patient hypoxic the daughter had called. We gave her telephone visit today. I did speak to the patient. She feels very drowsy and tired. Explained to the patient that is really important for her to go to the hospital and she is agreeable at this time. I did look at the blood work that she had at [facility]. Initially UTI demonstrated a Staph infection. I am concerned that she could be developing sepsis and therefore developing worsening respiratory failure in view of the sepsis. Therefore, be critical that she is evaluated in the ER. The daughter will take her to the hospital at this time. 05/13/2022 the patient is here for a pulmonary follow-up visit. The patient recently was discharged from the hospital. She was found to have kidney stones. Initially, she was admitted at [place] and she was found to have kidney stones and hypotension. And she ended up admitted at [facility]. She had a repeat CT scan of the abdomen per report demonstrating resolution of the kidney stone. The patient is having significant discomfort of her right leg. This is causing significant discomfort. She has been taking Tylenol. She has to be careful with her cirrhosis. She continues use the oxygen at nighttime. she uses 2 L at nighttime. This has been affecting beneficial. The patient is to continue the oxygen at this time. 05/04/2023 the patient is here for a pulmonary follow-up visit. The patient overall has been feeling well from a respiratory status. Continues on the Eliquis 5 mg twice a day. The family is contemplating decreasing the medication to 2.5 twice a day. I believe this is reasonable request specially since her last CTA back in April 2022 did not demonstrate any evidence of any persistent clot. She does have some lower extremity discomfort to therefore will do a lower extremity Dopplers to make sure that she does not have any clot burden. And if is negative then we can see about decreasing the dose. In the meantime the patient also has issues with headaches in the morning. She was on oxygen at nighttime which she has no longer using it. Therefore, will go ahead and request an overnight oximetry to see if which is set her up with nocturnal oxygen at this time. She may still have some supplies left over from when she had [facility] respiratory. 09/01/2023 the patient is here for a pulmonary follow-up visit. The patient is doing okay from a respiratory status. She continues on the Trelegy inhaler with good effect. She does have a rescue inhaler but does not required often. The patient also has been taking her Eliquis for her history of thromboembolic disease. This be a lifelong therapy. Denies any minor major bleeding. She will continue the therapy for now. Her major issues her neck pain. She did go to a chiropractor the cost even worsening pain. She does take Motrin as needed does help her. She has been following closely with pain specialist elsewhere. But at this point they could not offer her anything else. Therefore, will go ahead and making a referral to the pain clinic here at the [facility]. The patient will continue current respiratory therapy will follow-up in 6 months. 03/04/2024 the patient is here for a pulmonary follow-up visit. Overall she is doing well from a respiratory status. She is still having severe neck pain. She was referred to pain and then subsequently referred to spine surgery. She is scheduled to undergo spine surgery tomorrow. She is off the Eliquis which we prefer 3 days and then she can restart the Eliquis after she recovers and she is able to start soon as surgery. The patient is ready for respiratory status her respiratory exam is normal and is reassuring. Therefore I do not have any limitations at this time. The patient may be able to proceed with surgery at this time. After she recovers from her surgery we did talk about her vaccines and since she is due for a few vaccines. I did this them out for her. The patient follow-up in 6-8 months. If she has any issues prior to that she will call for an earlier assessment. 09/06/2024 the patient is here for pulmonary follow-up visit. Overall she is doing although significant back neck pain. She did follow-up with her spine surgeon and ultimately is having issues with her cervical neck and does require to have resurgery. She is on Eliquis. She will have to stop the Eliquis 3 days before. 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 Therefore when she stops the Eliquis 3 days before she will go ahead and start Lovenox for bridge. I will send the medications to the pharmacy. Respiratory kirk the patient is doing well. She continues with her respiratory medications as prescribed. Will plan to follow-up in 6 months if she has any issues prior to that she will call for an earlier assessment. 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 Left ventricular hypertrophy HTN (hypertension) Hyperlipidemia Hx pulmonary embolism Early onset Alzheimer dementia Incontinence of urine Dysphasia Diastolic dysfunction Type 2 diabetes mellitus with diabetic peripheral angiopathy without gangrene, with long-term current use of insulin Hx of deep venous thrombosis CKD (chronic kidney disease) stage 3, GFR 30-59 ml/min Cervical facet syndrome Kidney stone Calcium oxalate crystals present in urine Asthma-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 Depression Anemia Allergic rhinitis Hyperparathyroidism Osteoarthritis Fibromyalgia Hx of renal calculi Hx of seizure disorder Diabetes Cirrhosis GERD (gastroesophageal reflux disease) Nausea Dementia Anxiety RLS (restless legs syndrome) Peripheral venous insufficiency Osteopenia Esophageal varices Gastritis Mitral regurgitation Tricuspid regurgitation Hx of hepatitis C (~2008) Chronic anticoagulation Back pain AVM (arteriovenous malformation) of colon Pleuritis JENNIFER (obstructive sleep apnea) Abnormal chest x-ray Pneumonia COVID-19 (~12/2019) Pulmonary emboli COPD (chronic obstructive pulmonary disease) Surgical History (Updated 08/29/24 @ 12:24 by Yumi Torres RN) Hx of fusion of cervical spine Hx of lithotripsy Hx of colonoscopy (12/11/19) History of esophagogastroduodenoscopy (EGD) (12/11/19) Hx of hysterectomy (~1974) Hx of parathyroidectomy (~2008) Hx of cholecystectomy (~1975) Hx of cataract extraction Social History Household Members Other:: friend Are you a primary director of career services to a significant other at home: No Do you presently have visiting nurse or other home services: Yes ([employer] [place]) Patient Tobacco Use Status: Never used Tobacco Review of Systems Const Reports headache(s), Reports lethargy and Denies night sweats ENT Denies change in voice, Reports dizziness, Reports headache(s), Denies lip swelling, Denies mouth pain, Reports nasal congestion, Reports nasal discharge, Reports neck pain and Denies tongue swelling Card Denies chest pain, Denies dyspnea and Reports dyspnea on exertion Resp Reports cough, Denies dyspnea and Reports dyspnea on exertion GI Reports abdominal pain, Reports constipation and Reports GI cramping Reports as per HPI Musc Reports back pain, Reports limited range of motion, Reports muscle cramps, Reports neck pain and Reports radiating pain into limb Neuro Denies Neuro-related abnormal movements, Reports dizziness and Reports headache(s) Psych Denies no additional complaints Sebastian/Lymph Reports easy bleeding, Reports easy bruising and Denies lymphadenopathy Aller/Immun Denies lip swelling and Denies tongue swelling Physical Exam Vital Signs: Last Vital Signs Pulse 80 09/06/24 11:11 BP 110/52 L 09/06/24 11:11 Pulse Ox 96 09/06/24 11:11 Oxygen Delivery Method Room Air 09/06/24 11:11 BMI result Body Mass Index 25.8 Const General: alert HEENT Head: Yes normocephalic Neck Neck: Yes normal visual inspection, Yes full ROM and Yes no lymphadenopathy Chest Chest palpation & inspection: normal inspection of the chest, no localized rib tenderness and no tenderness Resp Effort & Inspection: normal respiratory effort Auscultation: no crackles, no rales, no rhonchi, no wheezes and diminished lung sounds Cardio Rate: regular rate Rhythm: regular rhythm Heart sounds: S1 normal heart sound present and S2 normal heart sound present GI Palpation (GI): Soft to palpation and nontender Auscultation: normal bowel sounds Skin General skin exam: no rashes or lesions noted Extrem General: Yes no clubbing, cyanosis or edema Assessment & Plan Assessment & Plan (1) COPD (chronic obstructive pulmonary disease): Code(s): J44.9 - Chronic obstructive pulmonary disease, unspecified Category: Medical Qualifiers: COPD type: chronic bronchitis Chronic bronchitis type: simple Qualified Code(s): J41.0 - Simple chronic bronchitis (2) Pulmonary emboli: Comment: longterm anticoagulation Code(s): I26.99 - Other pulmonary embolism without acute cor pulmonale Category: Medical Qualifiers: Acute cor pulmonale presence: without acute cor pulmonale Chronicity: chronic Pulmonary embolism type: unspecified Qualified Code(s): I27.82 - Chronic pulmonary embolism (3) Neck pain: Code(s): M54.2 - Cervicalgia Category: Medical Plan Proceed with anesthesia and spine surgery at this time The pt will stop the Eliquis 3 days prior her surgery and bridge with Lovenox. No lovenox the night prior to her surgery Continue Trelegy inhaler daily SONYA as needed Continue singular Continue Eliquis for unprovoked clots after surgery-life long singulair spine surgery Follow-up 6-8 months Medications: New enoxaparin (Lovenox) start the day after stopping the Eliquis x 3 days. Should stop the Lovenox the evening prior to surgery 60 mg (0.6 mL) subcut Q12H 5 ea 0RF Coding Level of Care Code Est Pt Level 4 (20660) Complex EM visit Add On G2211 Diagnoses Simple chronic bronchitis J41.0 COPD type: chronic bronchitis Chronic bronchitis type: simple Chronic pulmonary embolism without acute cor pulmonale, unspecified pulmonary embolism type I27.82 Acute cor pulmonale presence: without acute cor pulmonale Chronicity: chronic Pulmonary embolism type: unspecified Neck pain M54.2 Time Spent (min) 17
--- OUTSIDE RECORDS SUMMARY | 2024-09-06 11:49 | XMS_ITS ---
Author Organization [facility] Address [address] [place] [id number] Care Team Providers Care Run Boat Operator Name Role Phone RICKY GARZA, DAISY Primary Care Provider Unavailable Amor Dobbins Jr [phone] REASON FOR VISIT INTESTINAL ISSUES Encounters Encounter Location Date Provider Diagnosis [facility] [address] [facility] [address] [place] [phone] 01/17/2024 Amor Dobbins Jr Plan Of Treatment No Information Progress Notes * TOMMY CHOU EDOB:1945 (79 yo F)Acc No.[id number]:01/17/2024 Progress Notes Patient:?EFFIE TOMMY Arlin Provider:?Amor Dobbins MD :1945???Age:78 Y???Sex:Female D ate:01/17/2024 Address:[address] [place], [place] [id number] Pcp:Jake GALEANO Subjective: * Chief Complaints: * [...] Dobbins MD Date:?1 Generated for Bradyi juvenal/Fapurvi/eTransmitting on:?09/06/2024 11:49 AM EDT
== END 2024-09-06 11:42 | disposition home or self-care (01) ==
LOC: HO.HPS 10:58
PROVIDERS: PCP Physician Assistant; Visit Provider Hospitalist
DX: J41.0 Simple chronic bronchitis (principal); I27.82 Chronic pulmonary embolism; M54.2 Cervicalgia
CPT/HCPCS: 99214; G2211

== ENCOUNTER → 2024-09-06 10:57 | Outpatient (BNVA) | payer OTHER, SELFPAY | PROVIDERS: PCP Physician Assistant; Visit Provider Hospitalist | DX: J41.0 Simple chronic bronchitis (principal); I27.82 Chronic pulmonary embolism; M54.2 Cervicalgia | CPT/HCPCS: 99212 ==

== ENCOUNTER → 2024-09-19 10:01 | Outpatient (REF) | payer OTHER, SELFPAY ==
--- NOTE | 2024-09-19 | CA_ITS ---
Acquisition Time: 2024-09-19 10:22:52 Total Exercise Time: 00:02:00 Test Indications: CP,Pre-Op Evaluation Medications: Protocol: LEXISCAN Max HR: 100 BPM 71% of Pred: 140 BPM Max BP: 124/68 mmHG Max Work Load: 1.0 METS Pharmacological stress test with Lexiscan while pt swings her legs in chair, without any reported symptoms, without any arrythmias, with normotensive response to injection. Nondiagnostic EKG for ischemia. In recovery, pt continued to feel good. Nuclear images pending. Test reviewed with Dr. Ribera. Referred By: Yolande Rey Electronically Signed By: Navin Medina
--- NOTE | ~2024-09-19 | NM_ITS ---
Lexiscan Myocardial perfusion study Indication: Preoperative cardiovascular risk stratification Technique: The patient was brought in for a Lexiscan perfusion study on September 19, 2024 and was injected 0.4 mg of Lexiscan intravenously. Within a minute of this injection 25 mCi of sestamibi was given intravenously. Images were obtained using the SPECT gamma camera interlaced with the gating device. Images were obtained in supine position. Resting perfusion study was performed on September 20, 2024. Patient was administered 25 mCi of sestamibi intravenously at rest. Images were then obtained in supine position. Images obtained without without CT attenuation. Total DLP 151 mGy-cm. Images were processed with the software and compared side to side in short axis, horizontal long axis and vertical long axis views. Findings: The stress perfusion study showed non attenuated images show mildly reduced uptake in the apex of the LV myocardium. Remainder of the LV myocardium is normally perfused. There is suggestion of left ventricular hypertrophy. Attenuated corrected images show minimal thinning of the apex of the LV myocardium. The gated study shows normal LV systolic function with calculated LVEF of 73%. LV cavity is normal in size. The gated study shows normal systolic wall thickening and contraction of segments. Resting study shows non attenuated images show normal uptake of radiotracer in all segments of the LV myocardium. Attenuated corrected thinning of the apex of the LV myocardium.. Gating at rest reveals normal systolic wall motion with ejection fraction at greater than 60%. The findings are consistent with likely normal myocardial perfusion. NM/NM ari perf SPECT rest & str Impression: 1. Myocardial perfusion imaging study shows likely normal myocardial perfusion 2. Gated LVEF is 73% 3. Transient ischemic dilatation not present Nondiagnostic changes on EKG. Electronically signed by: Campos Ribera MD 09/20/2024 03:35 PM EDT
--- OUTSIDE RECORDS SUMMARY | 2024-09-19 11:22 | XMS_ITS ---
Author Organization [facility] Address [address] [place] [phone] Care Team Providers Care Technical Business Analyst Name Role Phone RICKY GARZA, DAISY Primary Care Provider Unavailable Amor Dobbins Jr REASON FOR VISIT INTESTINAL ISSUES Encounters Encounter Location Date Provider Diagnosis [facility] [address] [facility] [address] [place] [phone] 01/17/2024 Amor Dobbins Jr Plan Of Treatment No Information Progress Notes * TOMMY CHOU EDOB:1945 (79 yo F)Acc No.[id number]:01/17/2024 Progress Notes Patient:?EFFIE TOMMY Arlin Provider:?Amor Dobbins MD :1945???Age:78 Y???Sex:Female D ate:01/17/2024 Address:[address] [place], [place] [id number] Pcp:Jake GALEANO Subjective: * Chief Complaints: * [...] Dobbins MD Date:?1 Generated for Bradyi juvenal/Fapurvi/eTransmitting on:?09/19/2024 11:21 AM EDT
== END ==
LOC: HO.CARD 10:01
PROVIDERS: PCP Physician Assistant; Visit Provider Internal Medicine Cardiovascular Disease
DX: R07.9 Chest pain, unspecified (principal)
CPT/HCPCS: 78452; 93017; A9500; J0280; J2785

== ENCOUNTER → 2024-09-19 10:22 | Outpatient (BNV) | payer OTHER, SELFPAY | PROVIDERS: PCP Physician Assistant | DX: Z01.810 Encounter for preprocedural cardiovascular examination (principal) | CPT/HCPCS: 78452; 93016; 93018 ==

== ENCOUNTER 2024-10-08 12:01 | Day surgery (SDC) | payer OTHER, SELFPAY ==
--- OUTSIDE RECORDS SUMMARY | 2024-09-11 15:42 | XMS_ITS ---
Author Organization [facility] Address [address] [place] [id number] Care Team Providers Care Punch Finisher Name Role Phone RICKY GARZA, DAISY Primary Care Provider Unavailable Amor Dobbins Jr [phone] REASON FOR VISIT INTESTINAL ISSUES Encounters Encounter Location Date Provider Diagnosis [facility] [address] [facility] [address] [place] [phone] 01/17/2024 Amor Dobbins Jr Plan Of Treatment No Information Progress Notes * TOMMY CHOU EDOB:1945 (79 yo F)Acc No.[id number]:01/17/2024 Progress Notes Patient:?EFFIE TOMMY Arlin Provider:?Amor Dobbins MD :1945???Age:78 Y???Sex:Female D ate:01/17/2024 Address:[address] [place], [place] [id number] Pcp:Jake GALEANO Subjective: * Chief Complaints: * [...] Dobbins MD Date:?1 Generated for Bradyi juvenal/Benjie/eTransmitting on:?09/11/2024 03:42 PM EDT
[2024-09-27 12:29] VITALS: BMI 25.7
--- NOTE | 2024-10-07 09:45 | HO.ANESPROP2 ---
Documented by User: Odessa Colon NP 10/07/24 09:46 HPI - Anesthesia Eval Consult details Narrative: 79yo F for C4-5,C5-6 Ant Cerv Discectomy w/ fusion s/p C4-5,C5-6 Ant Cerv Discectomy w/ fusion 02/2024 with GA-ETT 7 No recent illness No CP/SOB with very limited activity d/t pain Follows [facility] for htn, chest pain. Stress pending since 03/2024 office visit. Denies CP at rest. 09/2024 Nuc Stress WNL Multiple PE (2015 and 2016) on Eliquis. Follows [facility] pulmo. Last eval 02/2024 and ok'd to hold eliquis prior to 02/2024 cspine surgery COPD: Follows with [facility] Pulmo. Stable 02/2024 office eval. Rare albuterol. JENNIFER: No CPAP, has had significant weight loss since sleep study Hx PE: Eliquis, ok to hold per pulmo. No need for IVC Filter Cirrhosis: Follows [facility] GI. Possible hx of varices. 05/2024 EGD nml. Hx Hep C s/p tx with harvoni Gastritis: ppi and H2 rey IDDM: A1c 8.7 04/2024, per daughter blood sugars have been elevated with pain 08/2024 A1C 8.5 PMFSH Active Problems Active Problems: All Active Problems S/P cervical spinal fusion (Acute) Cervical myelopathy (Acute) Cervical radiculopathy (Acute) Neck pain (Acute) Leg pain (Acute) Hypotension (Acute) Acute and chronic respiratory failure (Acute) Chest pain (Acute) Pleuritis (Acute) JENNIFER (obstructive sleep apnea) (Acute) Abnormal chest x-ray (Acute) Pneumonia (Acute) COVID-19 (Acute ~12/2019) Pulmonary emboli (Acute) COPD (chronic obstructive pulmonary disease) (Acute) Past Medical History Medical History Mild aortic stenosis Sciatica Right ventricular dilation Pulmonary HTN Insomnia Positive PPD, treated Myofascial muscle pain Meniere disease Memory impairment 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 Left ventricular hypertrophy HTN (hypertension) Hyperlipidemia Hx pulmonary embolism Early onset Alzheimer dementia Incontinence of urine Dysphasia Diastolic dysfunction Type 2 diabetes mellitus with diabetic peripheral angiopathy without gangrene, with long-term current use of insulin Hx of deep venous thrombosis CKD (chronic kidney disease) stage 3, GFR 30-59 ml/min Cervical facet syndrome Kidney stone Calcium oxalate crystals present in urine Asthma-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 Depression Anemia Allergic rhinitis Hyperparathyroidism Osteoarthritis Fibromyalgia Hx of renal calculi Hx of seizure disorder Diabetes Cirrhosis GERD (gastroesophageal reflux disease) Nausea Dementia Anxiety RLS (restless legs syndrome) Peripheral venous insufficiency Osteopenia Esophageal varices Gastritis Mitral regurgitation Tricuspid regurgitation Hx of hepatitis C (~2008) Chronic anticoagulation Back pain AVM (arteriovenous malformation) of colon Pleuritis JENNIFER (obstructive sleep apnea) Abnormal chest x-ray Pneumonia COVID-19 (~12/2019) Pulmonary emboli COPD (chronic obstructive pulmonary disease) Family History Family history of problems with anesthesia: No Surgical History Surgical History Hx of fusion of cervical spine Hx of lithotripsy Hx of colonoscopy (12/11/19) History of esophagogastroduodenoscopy (EGD) (12/11/19) Hx of hysterectomy (~1974) Hx of parathyroidectomy (~2008) Hx of cholecystectomy (~1975) Hx of cataract extraction History of Problems with Anesthesia: No Social History Social History Household Members Other:: friend Are you a primary home health care respiratory therapist to a significant other at home: No Do you presently have visiting nurse 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 If so, by whom?: No Spiritual Healthcare Practices: no Restorationist Healthcare Practices: no Cultural Healthcare Practices: no Are you DNR?: No Advance Directives: No (daughter is primary contact) Advance Directives Information Provided: Yes (brochure given) Advance Directives on File: No FDLMP: n/a Poor oral hygiene: No Meds Allergies Allergy/AdvReac Type Severity Reaction Status Date / Time bee pollen (bee stings) Allergy Severe Anaphylaxis Verified 10/08/24 12:18 lidocaine (From LIDODERM) Allergy Severe BLISTERS Verified 10/08/24 12:18 from adhesive morphine (MORPHINE) Allergy Severe PO will Verified 10/08/24 12:18 cause itching, can tolerate IV Penicillins (PENICILLINS) Allergy Severe SWELLING/IT Verified 10/08/24 12:18 XIAO ampicillin Allergy Intermediate rash/hives Verified 10/08/24 12:18 gabapentin (GABAPENTIN) Allergy Intermediate SORES IN Verified 10/08/24 12:18 MOUTH/AGITATION enalapril AdvReac Severe hyperkalemi Verified 10/08/24 12:18 a Home Medications ?Medication ?Instructions ?Recorded ?Confirmed ?Last Taken ?Type glucose 4 gram chewable tablet 4 g PO TID PRN diabetes mellitus 02/13/20 09/27/24 Unknown History insulin aspart U-100 100 unit/mL 4 - 6 unit subcut TID 02/13/20 09/27/24 03/04/24 History (3 mL) subcutaneous pen insulin degludec 200 unit/mL (3 16 unit subcut BEDTIME 02/13/20 09/27/24 03/04/24 20:00 History mL) subcutaneous pen 12 units oxycodone 5 mg tablet 10 mg PO Q8H PRN pain 02/13/20 09/27/24 10/08/24 History sennosides 8.6 mg tablet 8.6 mg PO BEDTIME PRN Constipation 02/13/20 09/27/24 Unknown History escitalopram oxalate 20 mg tablet 20 mg PO QAM 12/30/20 09/27/24 03/05/24 History levocetirizine 5 mg tablet 5 mg PO BEDTIME PRN Allergy 01/28/21 09/27/24 03/05/24 History Symptoms buspirone 15 mg tablet 15 mg PO BID 12/28/21 09/27/24 10/08/24 History esomeprazole magnesium 40 mg 40 mg PO QAM 12/28/21 09/27/24 10/08/24 History capsule,delayed release ferrous sulfate 325 mg (65 mg 325 mg PO DAILY 12/28/21 09/27/24 03/04/24 History iron) tablet famotidine 40 mg tablet 40 mg PO BEDTIME 04/12/22 09/27/24 03/04/24 History acetaminophen 650 mg 650 mg PO TID PRN Pain 05/04/23 09/27/24 Unknown History tablet,extended release isosorbide mononitrate 30 mg 30 mg PO QAM 05/04/23 09/27/24 03/05/24 History tablet,extended release 24 hr amlodipine 10 mg tablet 10 mg PO QAM 09/01/23 09/27/24 03/05/24 History atorvastatin 20 mg tablet 20 mg PO BEDTIME 02/26/24 09/27/24 Unknown History lorazepam 0.5 mg tablet 0.5 mg PO DAILY PRN Anxiety 02/26/24 09/27/24 Unknown History ondansetron 4 mg disintegrating 4 mg PO DAILY PRN Nausea And 02/26/24 09/27/24 Unknown History tablet Vomiting venlafaxine 37.5 mg tablet 75 mg PO BEDTIME 07/24/24 09/27/24 10/08/24 History baclofen 5 mg tablet 5 mg PO BEDTIME muscle spasms / 08/29/24 09/27/24 Unknown History pain Exam Height,Weight and Vital Signs: Height 5 ft 3 in Weight 65.771 kg Pertinent Lab Results Pertinent Lab Results: Lab Results 08/29/24 Range/Units 13:23 WBC 5.5 (4.8-10.8) X10*3/uL RBC 4.55 (4.20-5.50) X10*6/uL Hgb 13.5 (12.0-16.0) g/dl Hct 41.3 (37.0-47.0) % MCV 90.8 (80.0-98.0) fL MCH 29.7 (27.0-33.0) pg MCHC 32.7 (31.0-35.0) g/dl RDW 13.3 (11.0-16.0) % Plt Count 162 (160-400) X10*3/uL MPV 10.9 (9.4-12.3) fL Absolute Nucleated RBC 0.020 H (0.0-0.012) X10*3/uL Nucleated RBC % (auto) 0.4 H (0.0-0.2) /100WBC PT 16.8 H D (10.9-12.4) SEC INR 1.5 H (0.9-1.1) Sodium 138 (135-145) mmol/L Potassium 4.7 D (3.3-5.1) mmol/L Chloride 102 (96-108) mmol/L Carbon Dioxide 28 (22-29) mmol/L Anion Gap 13 (12-20) BUN 16 (9-16) mg/dL Creatinine 0.94 (0.5-1.4) mg/dL Estim Creat Clear Calc 43.4 Estimated GFR 57 Random Glucose 380 H* (60-115) mg/dL Estimat Average Glucose 197 mg/dL Hemoglobin A1c % 8.5 H (<6.0) % Calcium 9.4 (8.4-10.2) mg/dL Total Bilirubin 0.5 (0.0-1.0) mg/dL AST 26 (5-31) U/L ALT 22 (0-31) U/L Alkaline Phosphatase 120 H (39-117) U/L Total Protein 7.0 (6.5-8.0) g/dL Albumin 4.2 (3.5-5.0) g/dL Narrative Narrative: NM ari perf SPECT rest & str 09/2024 Impression: 1. Myocardial perfusion imaging study shows likely normal myocardial perfusion 2. Gated LVEF is 73% 3. Transient ischemic dilatation not present Nondiagnostic changes on EKG. EKG 06/2024 Ventricular Rate: 74 BPM Atrial Rate: 74 BPM P-R Interval: 134 ms QRS Duration: 68 ms Q-T Interval: 382 ms QTC Calculation(Bazett): 424 ms P [place]: 12 degrees R [place]: 14 degrees T [place]: 31 degrees Normal sinus rhythm Nonspecific T wave abnormality Borderline ECG When compared with ECG of 20-Dec-2023 15:03, No significant change Confirmed by ROSEANN GARZA, YAMIL ([id number]) on 06/27/2024 8:19:03 AM ECHO 07/2023 Summary The left ventricular size is normal. The left ventricular wall thickness is mildly increased. The LV systolic function is vigorous. The left ventricular ejection fraction is 70-75%. There are no definite regional wall motion abnormalities. Indeterminate diastolic function. Right ventricular size and systolic function appear grossly normal. The left atrium is normal in size. There is mild aortic stenosis- peak velocity 2.4 m/s, mean gradient 12 mmHg, calculated aortic valve area 1.5 cm2 by continuity equation. Normal CVP estimate. Unable to estimate PASP. Comparison Comparison is made to the study of April 22, 2022. No definite significant change. Coronary CT 2021 IMPRESSION: 1. No evidence of hemodynamically significant coronary artery disease. 2. Moderate nearly circumferential calcific stenosis in the mid RCA, 50-69%. 3. Otherwise mild but widespread predominantly calcific plaque. 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 current use of anticoagulant therapy Left ventricular hypertrophy HTN (hypertension) Hyperlipidemia Hx pulmonary embolism Early onset Alzheimer dementia Incontinence of urine Dysphasia Diastolic dysfunction Type 2 diabetes mellitus with diabetic peripheral angiopathy without gangrene, with long-term current use of insulin Hx of deep venous thrombosis CKD (chronic kidney disease) stage 3, GFR 30-59 ml/min Cervical facet syndrome Kidney stone Calcium oxalate crystals present in urine Asthma-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 Depression Anemia Allergic rhinitis Hyperparathyroidism Osteoarthritis Fibromyalgia Hx of renal calculi Hx of seizure disorder Diabetes Cirrhosis GERD (gastroesophageal reflux disease) Nausea Dementia Anxiety RLS (restless legs syndrome) Peripheral venous insufficiency Osteopenia Esophageal varices Gastritis Mitral regurgitation Tricuspid regurgitation Hx of hepatitis C (~2008) Chronic anticoagulation Back pain AVM (arteriovenous malformation) of colon Pleuritis JENNIFER (obstructive sleep apnea) Abnormal chest x-ray Pneumonia COVID-19 (~12/2019) Pulmonary emboli COPD (chronic obstructive pulmonary disease) Surgical History Surgical History Hx of fusion of cervical spine Hx of lithotripsy Hx of colonoscopy (12/11/19) History of esophagogastroduodenoscopy (EGD) (12/11/19) Hx of hysterectomy (~1974) Hx of parathyroidectomy (~2008) Hx of cholecystectomy (~1975) Hx of cataract extraction Social History Social History Household Members Other:: friend Are you a primary home health care respiratory therapist to a significant other at home: No Do you presently have visiting nurse 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 If so, by whom?: No Spiritual Healthcare Practices: no Restorationist Healthcare Practices: no Cultural Healthcare Practices: no Are you DNR?: No Advance Directives: No (daughter is primary contact) Advance Directives Information Provided: Yes (brochure given) Advance Directives on File: No FDLMP: n/a Poor oral hygiene: No Meds Allergies Allergy/AdvReac Type Severity Reaction Status Date / Time bee pollen (bee stings) Allergy Severe Anaphylaxis Verified 10/08/24 12:18 lidocaine (From LIDODERM) Allergy Severe BLISTERS Verified 10/08/24 12:18 from adhesive morphine (MORPHINE) Allergy Severe PO will Verified 10/08/24 12:18 cause itching, can tolerate IV Penicillins (PENICILLINS) Allergy Severe SWELLING/IT Verified 10/08/24 12:18 XIAO ampicillin Allergy Intermediate rash/hives Verified 10/08/24 12:18 gabapentin (GABAPENTIN) Allergy Intermediate SORES IN Verified 10/08/24 12:18 MOUTH/AGITATION enalapril AdvReac Severe hyperkalemi Verified 10/08/24 12:18 a Home Medications ?Medication ?Instructions ?Recorded ?Confirmed ?Last Taken ?Type glucose 4 gram chewable tablet 4 g PO TID PRN diabetes mellitus 02/13/20 09/27/24 Unknown History insulin aspart U-100 100 unit/mL 4 - 6 unit subcut TID 02/13/20 09/27/24 03/04/24 History (3 mL) subcutaneous pen insulin degludec 200 unit/mL (3 16 unit subcut BEDTIME 02/13/20 09/27/24 03/04/24 20:00 History mL) subcutaneous pen 12 units oxycodone 5 mg tablet 10 mg PO Q8H PRN pain 02/13/20 09/27/24 10/08/24 History sennosides 8.6 mg tablet 8.6 mg PO BEDTIME PRN Constipation 02/13/20 09/27/24 Unknown History escitalopram oxalate 20 mg tablet 20 mg PO QAM 12/30/20 09/27/24 03/05/24 History levocetirizine 5 mg tablet 5 mg PO BEDTIME PRN Allergy 01/28/21 09/27/24 03/05/24 History Symptoms buspirone 15 mg tablet 15 mg PO BID 12/28/21 09/27/24 10/08/24 History esomeprazole magnesium 40 mg 40 mg PO QAM 12/28/21 09/27/24 10/08/24 History capsule,delayed release ferrous sulfate 325 mg (65 mg 325 mg PO DAILY 12/28/21 09/27/24 03/04/24 History iron) tablet famotidine 40 mg tablet 40 mg PO BEDTIME 04/12/22 09/27/24 03/04/24 History acetaminophen 650 mg 650 mg PO TID PRN Pain 05/04/23 09/27/24 Unknown History tablet,extended release isosorbide mononitrate 30 mg 30 mg PO QAM 05/04/23 09/27/24 03/05/24 History tablet,extended release 24 hr amlodipine 10 mg tablet 10 mg PO QAM 09/01/23 09/27/24 03/05/24 History atorvastatin 20 mg tablet 20 mg PO BEDTIME 02/26/24 09/27/24 Unknown History lorazepam 0.5 mg tablet 0.5 mg PO DAILY PRN Anxiety 02/26/24 09/27/24 Unknown History ondansetron 4 mg disintegrating 4 mg PO DAILY PRN Nausea And 02/26/24 09/27/24 Unknown History tablet Vomiting venlafaxine 37.5 mg tablet 75 mg PO BEDTIME 07/24/24 09/27/24 10/08/24 History baclofen 5 mg tablet 5 mg PO BEDTIME muscle spasms / 08/29/24 09/27/24 Unknown History pain Assessment and Plan Final Anesthetic Review NPO: Yes ASA Class: III Final Preanesthetic Review: No Changes in Pt Med Stat, Meds/Allgs Chart Reviewed, Consent Obtained/Reviewed and Anes Risks/Benef Reviewed Patient Risk: Intermediate Procedure Risk: Low Anesthetic Plan Anesthetic Plan: GA Disposition: Standard PACU
--- NOTE | ~2024-10-08 | FL_ITS ---
EXAMINATION: FLUOROSCOPY GUIDANCE FOR NEEDLE PLACEMENT CLINICAL INFORMATION: C4-6 ACDF COMPARISON: None available. TECHNIQUE: A single lateral portable view of cervical spine in the OR. FINDINGS: A single lateral view of the cervical spine reveals 0 profile prosthesis at the C3-4, C4-5 and C5-6 disc level in good position. The endotracheal tube is in the proximal trachea. Postoperative changes are seen. FLUOROSCOPY TIME: 104.2 DOSE AREA PRODUCT: 0.227 uGy-m2 (microgray-meter squared) FL/FL guidance in OR IMPRESSION: Postoperative changes with 0 profile disc prosthesis for fusion at C3-4, C4-5 and C5-6 level in good position. Electronically signed by: Scott Castro MD 10/09/2024 07:25 AM EDT
[2024-10-08 12:23] VITALS: BP 115/57; PULSE 75; RESP 14; TEMP 36.6; O2SAT 97
[2024-10-08] MEDS: Lactated Ringers 1,000 ML 100 ML IVCONT (12:58)
--- NOTE | 2024-10-08 14:10 | P.HPSUR_ITS ---
Pre-Procedural Eval Section A - 24 Hr Update-Section A only Date of Service: 10/08/24 The patient is an INPATIENT: No Section B - Complete if H&P > 30 days Chief Complaint: Radiculopathy, cervical region, Details of Present Illness: Cervical myelopathy Allergies: Allergies Allergy/AdvReac Type Severity Reaction Status Date / Time bee pollen (bee stings) Allergy Severe Anaphylaxis Verified 10/08/24 12:18 lidocaine (From LIDODERM) Allergy Severe BLISTERS Verified 10/08/24 12:18 from adhesive morphine (MORPHINE) Allergy Severe PO will Verified 10/08/24 12:18 cause itching, can tolerate IV Penicillins (PENICILLINS) Allergy Severe SWELLING/IT Verified 10/08/24 12:18 XIAO ampicillin Allergy Intermediate rash/hives Verified 10/08/24 12:18 gabapentin (GABAPENTIN) Allergy Intermediate SORES IN Verified 10/08/24 12:18 MOUTH/AGITATION enalapril AdvReac Severe hyperkalemi Verified 10/08/24 12:18 a Review of Systems Sugical H&P ROS: Negative: Constitution, Cardiovascular, Respiratory, Neurological, Psychiatric, Hem-Onc, Allergic/Immunologic, Gastrointestinal, Gen itourinary, Musculoskeletal, Integumentary, Endocrine and Eyes/Ears/Nose/Throat Exam Surgical H&P Exam: Normal: HEENT, Normal: Heart, Normal: Lungs, Normal: Extremities, Normal: Abdomen, Normal: Skin and Normal: Neurological (Awake, alert) Plan Diagnosis/Plan: Unchanged (C4-C5, C5-6 anterior diskectomy and fusion) I have reviewed the history and physical and performed a pertinent physical examination on my patient. No changes have occurred unless specified. C4-C5, C5-6 anterior diskectomy and fusion Time Spent With Patient Time: Total time managing care of this patient today ___ 5 _ minutes.
--- NOTE | 2024-10-08 14:53 | P.DS_ITS ---
DS: Providers Provider Date of Service: 10/08/24 Date of discharge: 10/08/24 Primary care physician: TARA Weiss Admitting clinician: Miguel Fernando DS: Diagnosis Discharge Diagnosis (1) Cervical myelopathy: Status: Acute DS: Summary Time Attestation Discharge Coordination Time (in mins): 5 Quality: Safe Use of Opioids Does Pt have an Active Cancer Diagnosis on the Problem List?: No Quality: Stroke Does the patient have a stroke diagnosis?: No Physical Exam Vital Signs: Vital Signs: Last Vital Signs Temp 97.9 F 10/08/24 12:23 Pulse 75 10/08/24 12:23 Resp 14 10/08/24 12:23 BP 115/57 L 10/08/24 12:23 Pulse Ox 97 10/08/24 12:23 O2 Del Method Room Air 10/08/24 12:23 BMI result Body Mass Index 25.7 Discharge Plan Discharge Primary Care Provider: Massimo Mcclellan Patient Disposition: Home, Self-Care Referrals: Massimo Mcclellan PA [Primary Care Provider, Medical] - 1 Week Discharge Medications: Continued Trelegy Ellipta 100-62.5-25 mcg blister with device 1 inh inhalation QAM Qty: 60 0RF atorvastatin 20 mg tablet 20 mg PO BEDTIME lorazepam 0.5 mg tablet 0.5 mg PO DAILY PRN (Reason: Anxiety) ondansetron 4 mg tablet,disintegrating 4 mg PO DAILY PRN (Reason: Nausea And Vomiting) baclofen 5 mg tablet 5 mg PO BEDTIME escitalopram oxalate 20 mg tablet 20 mg PO QAM levocetirizine 5 mg tablet 5 mg PO BEDTIME PRN (Reason: Allergy Symptoms) sennosides 8.6 mg tablet 8.6 mg PO BEDTIME PRN (Reason: Constipation) glucose 4 gram tablet,chewable 4 g PO TID PRN (Reason: diabetes mellitus) insulin degludec 200 unit/mL (3 mL) insulin pen 16 unit subcut BEDTIME insulin aspart U-100 100 unit/mL (3 mL) insulin pen 4 - 6 unit subcut TID oxycodone 5 mg tablet 10 mg PO Q8H PRN (Reason: pain) ferrous sulfate 325 mg (65 mg iron) tablet 325 mg PO DAILY esomeprazole magnesium 40 mg capsule,delayed release(DR/EC) 40 mg PO QAM buspirone 15 mg tablet 15 mg PO BID famotidine 40 mg tablet 40 mg PO BEDTIME isosorbide mononitrate 30 mg tablet extended release 24 hr 30 mg PO QAM acetaminophen 650 mg tablet extended release 650 mg PO TID PRN (Reason: Pain) amlodipine 10 mg tablet 10 mg PO QAM albuterol sulfate 90 mcg/actuation HFA aerosol inhaler 2 inh inhalation Q6H PRN (Reason: shortness of breath or wheezing) 30 Days Qty: 18 12RF venlafaxine 37.5 mg tablet 75 mg PO BEDTIME Held apixaban 5 mg tablet 5 mg PO BID 30 Days Qty: 60 11RF Hold Instructions: Resume on 10/11/24. You may restart Eliquis 3 days after surgery Discontinued enoxaparin [Lovenox] 60 mg/0.6 mL syringe 60 mg subcut Q12H Qty: 5 0RF Rx Instructions: start the day after stopping the Eliquis x 3 days. Should stop the Lovenox the evening prior to surgery Discharge Orders: Discharge Order (Routine); Ordered 10/08/24 Ordered By: Octaviano Amador Diet: Advance to usual diet Activity on Discharge: As tolerated Activity Restrictions/Additional Instructions: After your spinal surgery we ask you to observe the following restrictions/guidelines: Activity: It is normal to feel some discomfort as you increase your activity, but that will improve with time. We ask you avoid heavy lifting or acitivities that cause pain. As a general rule, 8lbs is a safe limit for lifting right after surgery. Walk as much as you feel comfortable but not to exhaustion. You will feel extra tired the first few days after surgery. Stay well hydrated. It is OK to walk up and down stairs You may return to driving when you are off narcotics (such as vicodin, oxycodone, dilaudid, etc), and you are back to normal functional capacity. If you have any concerns please check with office before driving. Return to work is specific to each patient and each surgery, so please speak with your doctor/PA at first follow up. Please bring paperwork such as FMLA at that time if you need it filled out. Medications: You may restart Eliquis 3 days after surgery. Do not restart Lovenox after surgery. For optimum pain control, it is best to start with a combination of 500 mg of Tylenol every 4 hours with 600 mg of Motrin every 8 hours, and use narcotics as needed in between for breakthrough pain. We will give you a short supply of narcotics after surgery (usually one weeks worth). If you need more please call the office but do not use more than prescribed. You will need to give our office 48 hours notice if you need narcotics refilled and we do not fill narcotics on weekends or evenings. If you are on a narcotic, it is a good idea to take a stool softener such as colace or senna to avoid constipation If you take blood thinner such as aspirin, Plavix, Coumadin, Effient, Eliquis etc for conditions such as Afib, DVT, Pulmonary embolus, coronary disease, stents etc please speak with your surgeon about specific details as to when you can resume these medications. You can resume NSAIDs on post op day 1 (eg: Motrin, Naproxen, etc). Follow up: Please call the office, , after surgery to arrange a 3 week follow up for wound check. Wound Care: You may remove your dressing on the first day after surgery. ?You may ?leave open to air. Please do not remove the steri strips underneath. they will fall off on their own in one week. IT IS NORMAL FOR THE WOUND TO OOZE OR BE BLOODY FOR A FEW DAYS AFTER SURGERY. ?IF THIS HAPPENS JUST PLACE NEW DRESSING OVER IT TO AVOID STAINING CLOTHES. You may shower on post op day # 1 We ask that you do not let the water soak the wound. If it does get wet, just towel dry lightly. Please do not scrub your incision or place any type of chemical/ointment on the wound. No tub baths, pools or jacuzzis for one month. If you have any leaking or redness from your wound, or fevers, please call office Print Language: Kiswahili
[2024-10-08 16:10] LABS: Glucose, Whole Blood 279 mg/dL (60-115)
--- NOTE | 2024-10-08 17:36 | W.PM.OPN ---
Operative Note Operative Note Date of Service: 10/08/24 Narrative: Preoperative Diagnosis: Progressive cervical myelopathy Procedure: C4-C5, C5-C6 Anterior discectomy, arthrodesis and implantation cage ; C4-C6 anterior instrumentation ; local autograft; microscope Informed Consent was obtained for this operation. I have explained the nature, purpose and benefits of the operation. I have discussed the risks and benefit of the operation including possible complications or adverse events with patient/family. Alternative(s) were discussed with the patient with their relative benefits and risks as well as the consequences of not accepting the operation were included in obtaining consent. Surgeon: VERONICA MORALES MD, PHD Procedure Assisted By: abhishek Zimmerman Description of Procedure: This patient previously underwent a C3-C4 anterior diskectomy and fusion for cervical myelopathy. She returned with new progressive symptoms of cervical myelopathy. Her history is difficult due to early dementia but clinical exam and MRI imaging confirmed the diagnosis. Significant spinal cord compression with myelomalacia was seen at C4-C5 and C5-6. The patient was offered a decompression and fusion of these levels The procedure complications were explained. The patient's daughter signed the consent. The patient was brought to the operating room and endotracheally intubated. The patient was put in supine position with slight extension of the neck. Prep and drape was done followed by timeout. A mid cervical incision was made followed by opening of the platysma. The prevertebral fascia was reached following the natural planes while the physician assistant city attorney provided manual retraction. The prevertebral fascia was opened to expose the disc space. A spinal needle was placed in the disk space to confirm the correct level with xray. The longus colli muscles were released bilaterally and a self retaining retractor was inserted. An initial diskectomy was done of the C4-5 and C5-6 disc spaces. Two Macarthur pins were placed in the C4 and C5 vertebral bodies and distraction was give over the interspace. The discectomy was completed toward the posterior annulus of the disc. The microscope was brought in. The remainder of the discectomy was completed. The posterior ligament was opened and resected to expose the underlying dura. Osteophytes were resected from the body of C4 and C5 to decompress the spinal cord and saved for autograft. The endplates were prepared after which a 6 mm cage filled with autograft was inserted into the disc space. A separate attached plate was locked down with 2 x 12 mm screws as anterior instrumentation. Then attention was turned to the C5-6 disc space. A Macarthur pin was placed in the body of C6 and distraction was giving over the interspace. The diskectomy was completed. The hypertrophy flavum ligament was opened to expose the underlying dura. Severe spinal cord compression was encountered in the right paramedian area due to large bone spurs that were resected with a 2. Kerrison. More bone spurs were resected from the body of C5-C6 and safe for autograft. Another 6 mm cage was inserted filled with autograft. A separate attached plate was locked down with 2 x 12 mm screws as anterior instrumentation. Final x-rays in AP and lateral projection showed a satisfactory position of the implants and anterior instrumentation. The physician assistant city attorney took over. The Macarthur pin was removed. Hemostasis was done. He closed the incision in 2 layers with a 3-0 Vicryl. Steri-Strips used to approximate incision. An OpSite with Tegaderm was used to cover the incision. All sponge and needle counts were correct. Patient was extubated and transported in stable is to recovery room. Anesthesia: General Estimated Blood Loss (ml): 25 Duration of Surgery: 90 minutes Postoperative Plan: Discharge home Complications: None
[2024-10-08 17:46] VITALS: BP 135/55; PULSE 70; RESP 15; TEMP 36.6; O2SAT 97
[2024-10-08 17:51] VITALS: BP 127/61; PULSE 68; RESP 16; O2SAT 95
[2024-10-08 17:56] VITALS: BP 111/58; PULSE 68; RESP 16; O2SAT 95
[2024-10-08 18:01] VITALS: BP 117/59; PULSE 68; RESP 16; O2SAT 95
[2024-10-08 18:16] VITALS: BP 113/58; PULSE 66; RESP 20; TEMP 36.6; O2SAT 96
== END 2024-10-08 18:36 | disposition home or self-care (01) ==
LOC: HO.PAT 17:55 → HO.SSS 10-09 08:10
PROVIDERS: PCP Physician Assistant; Visit Provider Neurological Surgery
PROC: (CPT 22551; principal; 2024-10-08 14:20)
DX: M54.12 Radiculopathy, cervical region (principal); M50.021 Cervical disc disorder at C4-C5 level with myelopathy; M50.022 Cervical disc disorder at C5-C6 level with myelopathy; G47.33 Obstructive sleep apnea (adult) (pediatric); F03.90 Unspecified dementia, unspecified severity, without behavioral disturbance, psychotic disturbance, mood disturbance, and anxiety; E11.9 Type 2 diabetes mellitus without complications; J44.9 Chronic obstructive pulmonary disease, unspecified; Z86.711 Personal history of pulmonary embolism; Z79.4 Long term (current) use of insulin; Z79.01 Long term (current) use of anticoagulants; Z98.890 Other specified postprocedural states; Z86.19 Personal history of other infectious and parasitic diseases; Z98.1 Arthrodesis status; Z88.0 Allergy status to penicillin; Z88.5 Allergy status to narcotic agent; Z88.8 Allergy status to other drugs, medicaments and biological substances; Z99.89 Dependence on other enabling machines and devices
CPT/HCPCS: 22551; 22552; 22853; 20936; 22845; 82947; C1713; J0131; J2003; J2704; J3010; J3370; J3373; J7120

== ENCOUNTER → 2024-10-08 12:01 | Outpatient (BNV) | payer OTHER, SELFPAY | PROVIDERS: PCP Physician Assistant; Visit Provider Neurological Surgery | DX: M50.021 Cervical disc disorder at C4-C5 level with myelopathy (principal); M50.022 Cervical disc disorder at C5-C6 level with myelopathy; G95.9 Disease of spinal cord, unspecified | CPT/HCPCS: 20936; 22551; 22552; 22845; 22853; 99499 ==

== ENCOUNTER 2024-10-28 13:29 | Outpatient (AMB) | payer OTHER, SELFPAY ==
--- OUTSIDE RECORDS SUMMARY | 2024-01-17 07:20 | XMS_ITS ---
Author Organization [facility] Address [address] [place] [phone] Care Team Providers Care Plastic Sewer Name Role Phone RICKY GARZA, DAISY Primary Care Provider Amor Gutierrez Jr [phone] REASON FOR VISIT INTESTINAL ISSUES Encounters Encounter Location Date Provider Diagnosis [facility] [address] [facility] [address] [place] [phone] 01/17/2024 Amor Dobbins Jr Plan Of Treatment No Information Progress Notes * TOMMY CHOU EDOB:1945 (79 yo F)Acc No.[id number]:01/17/2024 Progress Notes Patient: TOMMY MICHELLE Provider: Francie Dobbins MD :1945 A ge:78 Y S ex:Female Date:01/17/2024 Address:[address] [place], [place] [id number] Pcp:Jake GALEANO Subjective: * Chief Complaints: * 1 . INTESTINAL ISSUES. * Medical History: Objective: * Vitals: Assessment: Plan: * Treatment: * * The named appointment provid er may or may not be the originator of this progress note, and it is not deemed complete until electronically signed by the appointment provider. Sign off status: Pending * Provider: Francie Dobbins MD Date: 1 Generated for Printi ng/Faxing/eTransmitting on: 0 10/28/2024 02:12 PM EDT
--- NOTE | 2024-10-28 13:31 | HO.SPINEOV ---
Intake Visit Reasons: 1st post op Intake Note: Ms. Corea is here today for her 1st post op. High School Music Director Required: Yes High School Music Director Name: Leonie (Daughter) Allergies bee pollen (bee stings) Allergy (Severe, Verified 10/08/24 12:18) Anaphylaxis lidocaine (From LIDODERM) Allergy (Severe, Verified 10/08/24 12:18) BLISTERS from adhesive morphine (MORPHINE) Allergy (Severe, Verified 10/08/24 12:18) PO will cause itching, can tolerate IV Penicillins (PENICILLINS) Allergy (Severe, Verified 10/08/24 12:18) SWELLING/ITCHING ampicillin Allergy (Intermediate, Verified 10/08/24 12:18) rash/hives gabapentin (GABAPENTIN) Allergy (Intermediate, Verified 10/08/24 12:18) SORES IN MOUTH/AGITATION enalapril Adverse Reaction (Severe, Verified 10/08/24 12:18) hyperkalemia Assessment & Plan Assessment & Plan (1) Cervical myelopathy with cervical radiculopathy: Code(s): G95.9 - Disease of spinal cord, unspecified; M54.12 - Radiculopathy, cervical region Category: Medical Plan Procedure: C4-C5, C5-C6 ACDF Leonie is a pleasant 79 year old female who comes in today for her 1st postop visit aftering having C4-5 ACDF completed for cervical myelopathy. She has been doing ok since her surgery, but does report that her posterior neck pain has been quite severe. She is accompanied by her daughter today who helps provide the bulk of her history. They have been treating her neck pain with prescribed pain medications and jzef-rcn-bdupsmx pain control. She has been utilizing ice/hot packs. They recently got her a new mattress for her bed to hopefully try and relieve some of her neck pain. We again reviewed the goal of surgery which was to halt progression of cervical myelopathy. The patient understands that she may experience some neck pain as she continues to heal from her 2 level ACDF. They asked several questions regarding the postoperative healing course, all of which I answered to the best of my ability. No new neurological deficits. The patient ambulates well and rises from a seated position without difficulty. She uses no assistive devices to ambulate. Her anterior incision site is closed and well healing with no signs of drainage or erythema. I would like Leonie to follow up with us again in 6 weeks for her 2nd postoperative visit with a set of x-rays. Gerardo Fernando MD,PhD [facility] Coding Level of Care Code Global (79519) Diagnoses Cervical myelopathy with cervical radiculopathy G95.9; M54.12
--- OUTSIDE RECORDS SUMMARY | 2024-10-28 14:12 | XMS_ITS | Encounter Summary ---
Author Organization [facility] Address [address] [place] [address] Care Team Providers Care Garbage Truck Driver Name Role Phone Florinda Trinh MD Primary Care Provider Unavailable Massimo Mcclellan PA-C Primary Care Provider Unava ilable Encounter Details Date Type Department Care Team Description 08/01/2017 Transfer Records Medical Records [address] [place] [address] Abstract, Provider Social History Tobacco Use Types Packs/Day Years Used Date Smoking Tobacco: Never Smokeless Tobacco: Never Sex Assigned at Date Recorded Not on file documented as of this encounter Plan of Treatment Not on file documented as of this encounter Visit Diagnoses Not on filedocumented in this encounter Care Teams Garbage Truck Driver Relationship Specialty Start Date End Date Florinda Trinh MD PCP - General Family Practice 06/01/17 Massimo Mcclellan PA-C PCP - General Internal Medicine 11/24/23 documented as of this encounter
--- OUTSIDE RECORDS SUMMARY | 2024-10-28 14:13 | XMS_ITS | Clinical Summary ---
Author Organization [address] [facility] Address [address] [place] [address] Phone Care Team Providers Care Patrol Driver Name Role Phone Massimo Mcclellan Primary Care Provider [phone] Allergies Active Allergy Reactions Criticality Noted Date [...] kidney disease) stage 3, GFR 30-59 ml/min ([facility] [place] [facility] [place]) 11/07/2017 Esophageal varices ([facility] [place], [facility] [place]) Overview (01/30/2024): 06/2106 EGD, Grade 1 Meniere disease 11/07/2017 Overview (01/30/2024): 2015 Dr Baker Osteopenia 11/07/2017 Pulmonary hypertension ([facility] [place], [facility] [place] ) 11/07/2017 Overview (01/30/2024): 2015 DAVID RVSP- 46 Tubular adenoma of colon 11/07/2017 Overview (01/30/2024): 2005 Type 2 diabetes mellitus wit h cataract ([facility] [place], [facility] [place]) 11/07/2017 Fibromyalgia 08/29/2017 Hepatitis C 08/29/2017 Hyperlipidemia 08/29/2017 Hyperparathyroidism ([facility] [place]) 08/29/2017 Hypertension 08/29/2017 Kidney stone 08/29/2017 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 Overview (01/30/2024): Never treated Seizure disorder ([facility] [place], [facility] [place]) 08/09 Overview (01/30/2024): Not on medication Allergic rhinitis 08/23/2017 Anxiety 08/23/2017 Asthma 08/23/2017 Depression 08/23/2017 DM (diabetes mellitus), type 2 with renal complications ([facility] [place], [facility]) 08/23/2017 GERD (gastroesophageal reflux disease) 8 Insomnia 08/23/2017 Osteoarthritis 08/23/2017 Overview (01/30/2024): Lumbar spine Encounters Date Type Department Care Team Description 08/21/2024 1:15 PM EDT Office Visit Orthopedic Surgery [facility] [address] [address] Florian Mott DPM Controlled type 2 diabetes with neuropathy ([facility] V24, [facility] V28) (Primary Dx); Pain in toes [...] 2:00 PM EDT Office Visit Orthopedic Surgery [facility] [address] [phone] Florian Mott DPM [address] [address] Health Maintenance Due Date Last Done Comments [...] 03/13/2022 Social Influencers of Health Screening 03/13/2022 Depression Screening 04/10/2024 DTaP,Tdap,and Td Vaccines (3 - Td or Tdap) 05/12/2024 05/12/2014, 11/10/2010 COVID-19 Vaccine (8 - Pfizer risk season) 2024 12/27/2023, 02/14/2023, 05/25/2022, Additional history exists Diabetes: Annual GFR (Glomerular Filtration Rate) 10/24/2024 10/25/2023, 07/19/2017 Hypertension/CHF/CAD Annual BMP Blood Test 10/24/2024 10/25/2023, 07/19/2017 Influenza Vaccine (#1) 2024 , 05/08/2023, 02/04/2023, Additional history exists Diabetes: Blood Sugar Control Test (HGBA1C) 02/19/2025 08/19/2024, 10/25/2023 Diabetes: Annual Urine Albumin-Creatinine Ratio (uACR) 08/19/2025 08/19/2024, 07/26/2023 Cholesterol Screening (Lipid Panel) 08/19/2029 08/19/2024, 08/19/2024, 05/08/2023, Additional history exists Pneumococcal Vaccine: 50+ Years Completed 05/12/2014, 11/10/2010, 05/20/2004 Zoster Vaccines Completed 12/08/2021, 06/0 11/2021, 10/16/2012 HIB Vaccines Aged Out No longer eligi [...] Most Recently Relevant to Health Maintenance Insurance [facility] MEDICARE Member Subscriber Plan / Payer (Ef fective 2012-Present) Name:Leonie Corea Relation to Subscriber:Self Name:Leonie Corea Payer ID:[id number] Group ID:[id number] Type:Not on file Address: [place] [facility] [place] [address] Advance Directives Documents on File Type Date Recorded Patient Director Process Engineering Expl anation Health Care Decision (hx) 03/30/2021 [...] (hx) 12/25/2015 AD NIEVES DIRECTIVE Care Teams Patrol Driver Relationship Specialty Start Date End Date Massimo Mcclellan PA [address] [place] [address] PCP - General 11/24/23
--- OUTSIDE RECORDS SUMMARY | 2024-10-28 14:13 | XMS_ITS | Data Portability ---
Author Organization [facility] Address [address] [place] [address] Care Team Providers Care Audience Coordinator Name Role Phone FELY COVARRUBIAS Primary Care Provider [phone] HIM CCA OTHER Assessment Encounter Date Assessment Date Assessment LastModified by Organization Details LastModified Time 02/29/2024 02/29/2024 Evaluation in the field was performed by my sample body builder colleague, as noted above, I provided real-time [...] Assessment and Plan as documented by the Survey Research Associate. Patient given the opportunity to ask questions. Our service contacted for an assessment of: Urinary frequency As per above, patient with approximately several days of urinary frequency. Denies dysuria, abdominal pain, suprapubic pain, flank pain, fever, chills. Does have diabetes and sugars have been running high. Does not specifically endorse polydipsia. No history of frequent urinary tract infections Per sample body builder on the scene, vital signs are stable [...] Appointments None recorded. Lab urinalysis, dipstick 2023 [facility], [address] [place] [address], [phone] 4 19:24:48 culture, urine 2023 [place] [facility] (Centralized Electronic Ordering - All Locations), Patient Can Go To The Location Of Their Choice, [address] 5 20:05:30 urinalysis, dipstick [address], [address] 4 18:47:22 culture, urine 2023 [place] [facility] (Centralized Electronic Ordering - All Locations), Patient Can Go To The Location Of Their Choice, [address] 4 22:06:00 Referral None recorded. Procedures None recorded. Surgeries None recorded. Imaging None recorded. Medication Orders cefuroxime axetil [address] [id number], [address] [place] [address], [address], 17:49:37 Patient TargetsNo targets recorded. Patient InstructionsNo instructions recorded. Reason for Referral None Reported. Results Created Date Observation Date Name Description Value Unit Range Abnormal Flag Note LastModifiedBy Organization Detail LastModifiedTime 02/29/20 24 03/01/2024 URINE CULTU RE, ROUTI NE urine culture, routine Final report Not Available [facility] ([facility]) [address] [facility], [place], [address], 03/01/2024 22:06:00 02/29/20 24 03/01/2024 URINE CULTU RE, ROUTI NE result 1 No growth Not Available [facility] ([facility]) [address] [place], [address], 03/01/2024 22:06:00 04/09/20 24 04/10/2024 URINE CULTU RE, ROUTI NE urine culture, routine Final report Not Available [facility] ([facility]) [address] [facility], [place], [address], 04/10/2024 20:05:30 04/09/20 24 04/10/2024 URINE CULTU RE, ROUTI NE result 1 No growth Not Available [facility] ([facility]) [address] [place], [address], 04/10/2024 20:05:30 Result Notes None recorded. Medical Equipment None Reported. Allergies Allergen ID Allergen Name Allergen Category Reaction Reaction Severity Criticality Documentation Date Start Date Code Code System Note Provider Name and Address Organization Details Recorded Time 90293 enalapril Not available Not available Not available Not available 02/29/2024 3827 RxNorm Not Available [facility] - production 4 11:30:38 9685 Product containin g penicilli n (product) medicatio n Not available Not available Not available 02/06/2024 91136 8001 SNOMED Not Available [facility] - production 04:14:41 9686 lidocaine medicatio n Not available Not available Not available 02/06/2024 6387 RxNorm Not Available [facility] - production 4 04:14:41 9687 morphine medicatio n Not available Not available Not available 02/06/2024 7052 RxNorm Not Available [facility] 4 04:14:41 Medications Name Sig Start Date [...] Not Available No t Available Dexcom G7 Public Affairs Director USE TO TEST BLOOD GLUCOSE CONTINUOUSL Y (DEXCOM G7 EVALUATOR) active Not Available Not Available No t Available Dexcom G7 Sensor device APPLY 1 SENSOR TO BACK OF UPPER ARM EVERY 10 DAYS. USE TO CHECK GLUCOSE AT LEAST 3 TIMES DAILY. active Not Available Not Available No t Available Vitals Date Recorded Respiratory rate Oxygen saturation Oxygen saturation in Arterial blood by Pulse oximetry Heart rate Systolic And Diastolic Provider Name and Address Organization Details Last Updated DateTime 4 16 /min 97 % 97 % 71 /min 113/74 mm[Hg] Not Available [employer] 4 13:36:27 Date Recorded Oxygen saturation Oxygen saturation in Arterial blood by Pulse oximetry Body height Heart rate Respiratory rate Body temperature Body weight Systolic And Diastolic Provider Name and Address Organization Details Last Updated DateTime 4 98 % 98 % 160.02 cm 67 /min 16 /min 98.3 [degF] 78637.6 16 g 117/61 mm[Hg] Not Available [employer] 4 17:46:27 Date Recorded Body temperature Body weight Body height Heart rate Oxygen saturation Oxygen saturation in Arterial blood by Pulse oximetry Respiratory rate Systolic And Diastolic Provider Name and Address Organization Details Last Updated DateTime 4 98.7 [degF] 03145.9 84 g 160.02 cm 80 /min 99 % 99 % 18 /min 117/67 mm[Hg] Not Available [employer] 4 17:07:34 Social History None recorded. Functional Status None recorded. Mental Status None recorded. Family History Nothing Reported. Medical History No medical history recorded. Gynecological HistoryNo gynecological history recorded. Obstetrics History GPAL:G 0 P 0 0 0 0 Past Encounters Encounter ID Performer Location Encounter Start Date Encounter Closed Date Diagnosis/Indication Diagnosis SNOMED-CT Code Diagnosis ICD10 Code Diagnosis Note [id number] Wild Mendoza MD [facility] - [facility] [address] [place] [phone] 06/12/2023 13:36:18 06/12/2023 18:56:08 Contusion of left lower leg [id number] 4405860 S80.12XA This 77-year-ol d female bruised her left anterior lower leg when getting out of the bathtub yesterday. She appears to has a bruise with no deformity. She is taking blood thinners. I recommende d ice packs and elevation. She will follow-up with her PCP for any persistent symptoms. The patient agreed with this plan. [id number] Amina Fatima MD [facility] [address] [place] [phone] 02/29/2024 17:46:24 03/01/2024 00:46:10 Dysuria 88757621 R30.0 [id number] [facility] [address] [place] [phone] 04/09/2024 16:51:24 04/09/2024 22:30:06 Urinary symptoms 435139400 R39.9 Increased frequency of urination [id number] R35.0 Health Concerns Section Related Observation LastModified by Organization Detai ls LastModified Time None Recorded Concern Status LastModified by Organization Details LastModified Time None Recorded Advance Directives Directive None Recorded Payers Insurance Date Sequence Insurance Name Policy Number Policy Martinez Covered Member ID Martinez Member ID Guarantor Name 04/09/2024 1 [facility] - DOS ON OR AFTER 2022 - DUAL ELIGIBLE - [employer] AND [employer] (MEDICARE REPLACEMENT/ADV ANTAGE - HMO) Leonie Corea [id number] Leonie Corea Notes Date Note Type Note Provider Name and Address Organization Details Recorded Time 06/12/2023 text/html [facility] Nurse Triage Notes (Odessa Perez): Reason For Request: Fall Chief Complaints: Injury PMH: Heart Disease, Diabetes, Hypertension Allergies: Penicillin, Lidocaine, Morphine Comments: Called back member and day care home mother for c/o falling yesterday when getting out [...] but no call back yet. Verified name//address. [facility]mche[facility] Mendoza MD [address] [place] [address],[address], [place], [phone], [employer] 06/12/2023 13:41:12 02/29/2024 text/html [facility] Nurse Triage Notes (Velia Shields): Reason For Request: UTI Patient Reports: Painful urination; Frequent and increased urination with flank pain; Painful urination with or without fever Denies: Inability to fully empty bladder Chief Complaints: Urinary symptoms, Diabetes-related PMH: Coronary Artery Disease, Hypertension, Diabetes Mellitus Type 2 Comments: Outdoor Education Teacher verified the name//address and phone number.Patient is [...] s/s and seek emergency treatment if needed Survey Research Associate Organization Information for Denilson Diaz Business Legal Name: [email or web address] Address: [address] [place] [address], Rewinder: Tobin Mclain MD [facility] No.: [id number] Survey Research Associate POC Test Results from Denilson Diaz Urine Dipstick (17:44:16) Urine leukocytes: + ANT Urine nitrites: - NIT Urine urobilinogen: - URO Urine protein: +/- PRO Urine pH: 5.0 pH Urine blood: +++ BLO Urine specific gravity: 1.010 SG Urine ketones: - KET Urine bilirubin: +/- FRANTZ Urine glucose: - GLU .................. .................. .................. .................. .................. .................. .................. ............... Survey Research Associate Note From Denilson Diaz[facility] Pt presents with her daughter at home. Daughter reports pt had onset of burning with urination yesterday in addition to urinary frequency. Daughter also questioning some possible confusion. V/S taken as listed. Pt afebrile. Pt was able to provide urine specimen with dipstick analysis showing leukocytes and blood. Urine culture specimem obtained. Consulted with [facility] Dr. Fatima who started pt on antibiotics and requested urine culture sent to [facility]. Reviewed red flags for ED with pt and daughter. Pt education provided. [facility] Lab Orders: urinalysis, dipstick: Performed .................. .................. .................. .................. .................. .................. .................. ............... [facility] Consulted: Amina Fatima .................. .................. .................. .................. .................. .................. .................. ............... Disposition: Fulfilled Amina Fatima MD [address] [place] [address],[address], [place], [phone], [employer] 02/29/2024 19:43:53 04/09/2024 text/html [facility] Nurse Triage [...] Mellitus Type 2, Chronic Kidney Disease Comments: Outdoor Education Teacher verified the patient's name//address and phone number. [...] emergency treatment if needed -Lupe Garza RN Survey Research Associate Organization Information for Laura Woody [employer] Legal Name: [employer]. Address: [address] [place] [address], Rewinder: Tobin MARTINEZ No.: [id number] Survey Research Associate POC Test Results from [employer] Blood Glucose Measurement (17:14:05) Blood Glucose: 220 [...] under Documents section. Kimmy Chang MD [address] [facility],[address], [place], [address], [facility] [place] 04/09/2024 22:48:45 OBGyn Episode No OBEpisode recorded.
--- OUTSIDE RECORDS SUMMARY | 2024-10-28 14:13 | XMS_ITS | Clinical Summary ---
Author Organization [facility] Address [address] [facility] [address] [place] [address] Phone Care Team Providers Care Bed Operator Name Role Phone Florinda Nino MD Primary Care Provider Allergies Active Allergy Reactions Criticality Noted Date Comments Penicillins 12/22/2015 Medications loratadine (CLARITIN) 10 mg tablet Take 10 mg by mouth daily. Active meloxicam (MOBIC) 15 MG tablet Take 15 mg by mouth daily. Active montelukast (SINGULAIR) 10 mg tablet Take 10 mg by mouth daily. Active omeprazole (PRILOSEC) 20 MG tablet Take 20 mg by mouth 2 (two) times a day. Active oxyCODONE 5 MG immediate release tablet 5 mg every 4 (four) hours as needed. Active triamcinolone (NASACORT AQ) 55 mcg/actuation nasal inhaler Active acetaminophen (TYLENOL) 500 mg capsule Take 1,000 mg by mouth every 6 (six) hours as needed. Active albuterol (PROVENTIL HFA;VENTOLIN HFA) 90 mcg/actuation inhaler Active aspirin 81 mg chewable tablet Acti ve cholecalciferol (VITAMIN D3) 1,000 unit tablet Ac tive DULoxetine (CYMBALTA) 60 MG capsule Take 60 mg by mouth daily. Active enalapril (VASOTEC) 10 MG tablet Take 10 mg by mouth daily. Active gabapentin (NEURONTIN) 800 MG tablet Take 800 mg by mouth 3 (three) times a day. Active insulin detemir (LEVEMIR) 100 unit/mL (3 mL) InPn injection pen 65-67 Units 2 (two) times a day. Active insulin aspart (NOVOLOG) 100 unit/mL InPn injection pen 40-45 Units 3 (three) times a day with meals. Active LORazepam (ATIVAN) 0.5 MG tablet 0.5 mg 3 (three) times a day as needed for anxiety. Active enoxaparin (LOVENOX) 100 mg/mL Syrg subcutaneous syringe Inject 0.9 mL (90 mg total) under the skin every 12 (twelve) hours. 10 Syringe 0 6 Active ferrous sulfate 324 mg (65 mg elemental) TbEC Take 1 tablet (324 mg total) by mouth daily with breakfast. 30 tablet 0 6 Active warfarin (COUMADIN) 1 MG tablet Take 2 tablets (2 mg total) by mouth nightly. 60 tablet 0 6 Active Resolved Problems Problem Noted Date Diagnosed Date Resolved Date PE (pulmonary thromboembolism) 12/21/2015 12/25/2015 Immunizations Immunization Administration Dates Next Due Influenza Quadrivalent Preservative Free IM 12/09 Social History Tobacco Use Types Packs/Day Years [...] Sign Reading Time Taken Comments Blood Pressure 135/64 12/25/2015 2:00 PM EDT Pulse 76 12/25/2015 2:00 PM EDT Temperature 36.3 C (97.3 F) 12/25/2015 12:00 PM EDT Respiratory Rate 14 12/25/2015 10:0 0 AM EDT Oxygen Saturation 96% 12/25/2015 2:00 PM EDT Inhaled Oxygen Concentration - - Weight 91.5 kg (201 lb 11.5 oz) 12/22/2015 9:00 AM EDT Height 160 cm (5' 2.99 ) 12/22/2015 9:00 AM EDT Body Mass Index 35.74 12/22/2015 9:00 AM EDT Plan of Treatment Health Maintenance Due Date Last Done Comments DEPRESSION SCREENING 1956 SMOKING STATUS SCREENING (Once After 26 Yrs) 1970 OSTEOPOROSIS SCREENING INITIAL (ONE-TIME) 2009 ZOSTER VACCINES (2 of 3) 12/11/2012 10/16/2012 CREATININE LEVEL 12/24/2016 12/25/2015, , 12/23/2015, Additional history exists POTASSIUM LEVEL 12/24/2016 12/25/2015, 12/09, 12/23/2015, Additional history exists RSV VACCINE (1 - 1-dose 75+ series) 07/06/2019 LIPID PANEL 12/22/2020 12/23/2015 COVID-19 VACCINE ( season) 2023 06/11/2020, 05/21/2020 Adult Td,Tdap Booster 05/12/2024 05/12/2014, 011 PNEUMOCOCCAL VACCINES (50+ years) Completed 05/12/2014, 11/10/2010, 05/20/2004 HEPATITIS A VACCINES Aged Out No long er eligible based on patient's age to complete this topic HIB VACCINES Aged Out No longer eligi ble based on patient's age to complete this topic MENINGOCOCCAL VACCINES (ACWY) Aged Out No longer eligible based on patient's age to complete this topic MENINGOCOCCAL VACCINES (B) Aged Out N o longer eligible based on patient's age to complete this topic Medical Devices Not on file Procedures Procedure Name Priority Date/Time Associated Diagnosis Comments POTASSIUM Routine 12/25/2015 3:10 AM EDT CREATININE/EGFR Routine 12/25/2015 3:10 AM EDT LIPID PANEL Routine 12/23/2015 6:15 AM EDT from Last 3 Months or Most Recently Relevant to Health Maintenance Results * Creatinine/eGFR (12/25/2015 3:10 AM EDT) CREATININE 0.84 0.60 - 1.50 mg/dL [facility] EGFR >60 mL/min/1.7 3m2 [facility] Comment:Abnormal if <60 mL/m in/1.73m2. If patient is -Venezuelan, multiply the result by 1.21. Blood 12/25/2015 3:10 AM EDT 12/25/2015 3:15 AM EDT To Arroyo MD LAB BLOOD ORDERABLES Final Resul t Performing Organization Address [facility] Co de Phone Number [address] [address] * Potassium (12/25/2015 3:10 AM EDT) POTASSIUM 4.1 3.4 - 5.0 mmol/L [facility] Blood 12/25/2015 3:10 AM EDT 12/25/2015 3:15 AM EDT To Arroyo MD LAB BLOOD ORDERABLES Final Resul t Performing Organization Address [facility] Co de Phone Number [address] [address] * (ABNORMAL) Lipid panel (12/23/2015 6:15 AM EDT) HDL 33(L) 35 - 100 mg/dL [facility] CHOLESTEROL 169 mg/dL [facility] Comment:DESIRABLE: <200 TRIGLYCERIDES 149 40 - 150 mg/dL [facility] LDL 106 mg/dL [facility] Comment:DESIRABLE: <130 CARDIAC RISK RATIO 5.1 [facility] Comment:NORMAL RISK RATIO: 5 .0 OR LESS 12/23/2015 6:15 AM EDT 12/23/2015 6:48 AM EDT Rishi Lindsey MD LAB BLOOD ORDERABLES Final R esult Performing Organization Address [facility] Co de Phone Number [address] [address] from Last 3 Months or Most Recently Relevant to Health Maintenance Insurance MEDICARE REPLACEMENT MEDICARE REPLACEMENT MEDICARE REPLACEMENT MEDICARE REPLACEMENT [place] [address] MEDICARE REPLACEMENT MEDICARE REPLACEMENT MEDICARE REPLACEMENT [place] [address] MEDICARE REPLACEMENT Advance Directives For more information, please contact: [phone] (9AM - 5PM [place], Monday-Monday) Documents on File Type Date Recorded Patient Pai Gow Dealer Expl anation Healthcare Proxy 12/29/2015 10:38 AM Deborah d 01/23/2012 MOLST 12/29/2015 10:38 AM Signed * Full Code (Presumed) (Latest Code Status on File) Date Activated Date Inactivated Comments 12/21/2015 11:58 PM 12/25/2015 6:54 PM Care Teams Bed Operator Relationship Specialty Start Date End Date Florinda Nino MD [address] [place] [address] PCP - General Family Medicine 12/21/15 Additional Source Comments The information contained in this document represents components of the legal health record. It is not the complete legal health record.[facility]
--- OUTSIDE RECORDS SUMMARY | 2024-10-28 14:13 | XMS_ITS | Patient Health Record ---
Author Organization [facility] Address [address] [place] [address] Care Team Providers Care Lawn Sprinkler Installer Name Role Phone Massimo Figueroa Primary Care Provider Unavail able Miguel A Layne Unavailable [phone] Allergies Allergen (clinical drug ingredient) Drug/Non Drug [...] Active Celecoxib 200 MG (Prior Auth: Rx Ref#:[id number]) Oral; Duration: 30 Not-Taking Tresiba Active DULoxetine HCl 60 MG (Prior Auth: Rx Ref#:[id number]) Oral; Duration: 30 Not-Taking NovoLOG Active Enalapril Maleate 10 MG (Prior Auth: Rx Ref#:[id number]) Oral; Duration: 90 Not-Taking Acetaminophen Extra Strength 500 MG (Prior Auth: Rx Ref#:[id number]) Oral; Duration: 13 Active Gabapentin 400 MG (Prior Auth: Rx Ref#:[id number]) Oral; Duration: 90 Not-Taking Albuterol Sulfate (2.5 MG/3ML) 0.083% (Prior Auth: Rx Ref#:[id number]) Inhalation; Duration: 10 Active Ferrous Sulfate 325 (65 Fe) MG 1 tablet Orally Once a day; Duration: 30 day(s) Not-Taking Capsaicin 0.025 % 1 application to affected area as needed Externally Three times a day Active Fluticasone Furoate 200 MCG/ACT 1 puff Inhalation Once a day Active hydroCHLOROthiazide 12.5 MG (Prior Auth: Rx Ref#:[id number]) Oral; Duration: 30 Active Polyethylene Glycol 3350 - as directed Active Flunisolide 25 MCG/ACT (0.025%) (Prior Auth: Rx Ref#:[id number]) Nasal; Duration: 25 Active Extra Depth Orthopedic Shoes (1 Pair) with Customized Heat Molded Multidensity Innersoles (3 Pair) as directed Dx: IDDM/Polyneuropathy (E10.42), Hammertoe Foot Deformity (M20.41,M20.42), Preulcerative Skin Lesion(s) (L85.1) 01/12/2023 Active Loratadine 10 MG (Prior Auth: Rx Ref#:[id number]) Oral; Duration: 90 Active Montelukast Sodium 10 MG (Prior Auth: Rx Ref#:[id number]) Oral; Duration: 30 Active oxyCODONE HCl 5 MG (Schedule II Drug) (Prior Auth: Rx Ref#:[id number]) Oral; Duration: 28 Active Pantoprazole Sodium 40 MG (Prior Auth: R x Ref#:[id number]) Oral; Duration: 30 Active Pravastatin Sodium 10 MG (Prior Auth: Rx Ref#:[id number]) Oral; Duration: 30 Active Aspirin Low Dose 81 MG (Prior Auth: Rx Ref#:[id number]) Oral; Duration: 90 Not-Taking Citracal + D [...] Problem Acquired hammer toe of right foot (5158664472548874 ) Other hammer toe(s) (acquired), right foot (M20.41) Active confirmed Problem Acquired hammer toe of left foot (0631903515561374 ) Other hammer toe(s) (acquired), left foot (M20.42) Active confirmed Problem Polyneuropathy due to diabetes mellitus type I (421783881) Type 1 diabetes mellitus with diabetic polyneuropathy (E10.42) Active confirmed Plan Of Treatment Pending Test Test Name Order Date X ray : Foot, left 3V 12/18/2018 X ray : Foot, right 3V 12/18/2018 [id number] NAIL, 6 OR MORE 11/10/2021 [id number]-[id number] NAIL, 6 OR MORE 01/12/2023 76867-PEED SKIN LESIONS, OVER 4 01/13/20 23 65972-BFTA SKIN LESIONS, OVER 4 11/11/19 22 95625-RORH SKIN LESIONS, OVER 4 09/19/19 19 21786-AYPM SKIN LESIONS, OVER 4 12/19/19 19 68750-QART SKIN LESIONS, OVER 4 03/26/20 19 54114-UMNB SKIN LESIONS, OVER 4 09/09/19 21 11556-ROMZ SKIN LESIONS, OVER 4 06/12/19 22 Insurance Providers Payer Name Payer Address Payer Phone Subscriber Number Group Number Insured Name Patient Relationship to Insured Coverage Start Date Coverage End Date [facility] [employer] Claims [address] [place] [id number] Leonie Corea Self - patient is the [...] History Reason Date(Month/Year) [facility] for kidney stones 05/01
== END 2024-10-28 13:52 | disposition home or self-care (01) ==
LOC: HO.HNS 13:29
PROVIDERS: PCP Physician Assistant; Visit Provider Physician Assistant
DX: G95.9 Disease of spinal cord, unspecified (principal); M54.12 Radiculopathy, cervical region
CPT/HCPCS: 99024

== ENCOUNTER → 2024-10-28 13:29 | Outpatient (BNVA) | payer OTHER, SELFPAY | PROVIDERS: PCP Physician Assistant; Visit Provider Physician Assistant | DX: M54.12 Radiculopathy, cervical region (principal); G89.29 Other chronic pain | CPT/HCPCS: 99212 ==

== ENCOUNTER 2024-12-11 13:43 | Outpatient (AMB) | payer OTHER, SELFPAY ==
--- OUTSIDE RECORDS SUMMARY | 2015-12-21 | XMS_ITS | Encounter Summary ---
Author Organization [facility] Address [address] [place] [address] Phone Care Team Providers Care Roofer Vinyl Coating Name Role Phone Florinda Nino MD Primary Care Provider Encounter Details Date Type Department Care Team (Late st Contact Info) Description 12/21/2015 Hospital Encounter [facility] Imaging [address] [place] [address] Del Sloan MD [address] [place] [address] Social History Tobacco Use Types Packs/Day Years [...] AM EDT) 12/21/2015 9:17 PM EDT Impressions [facility] - 12/21/2015 10:21 PM EDT IMPRESSION: No evidence of pneumonia or pulmonary edema. This report is limited to the body part and modality requested, regardless of which images were uploaded. If additional reports are required, please contact the appropriate Division of the Radiology Department. Narrative [facility] - 12/21/2015 10:21 PM EDT Two [...] OUTSIDE IMAGING W/ I NTERPRETATION Final Result [facility] [address] [facility] [place] [address] documented in this encounter Visit Diagnoses Not on filedocumented in this encounter Care Teams Roofer Vinyl Coating Relationship Specialty Start Date End Date Florinda Nino MD [address] [place] [phone] PCP - General Family Medicine 12/21/15 documented as of this encounter Additional Source Comments The information contained in this document represents components of the legal health record. It is not the complete legal health record.[facility]
--- OUTSIDE RECORDS SUMMARY | 2015-12-21 00:15 | XMS_ITS | Encounter Summary ---
Author Organization [facility] Address [address] [place] [address] Phone Care Team Providers Care Fermentation Scientist Name Role Phone Florinda Nino MD Primary Care Provider Encounter Details Date Type Department Care Team (Late st Contact Info) Description 12/21/2015 12:15 AM EDT [facility] [address] [place] [address] Del Sloan MD [address] [place] [phone] Social History Tobacco Use Types Packs/Day Years [...] AM EDT) 12/22/2015 8:35 AM EDT Impressions [facility] - 12/22/2015 11:02 AM EDT IMPRESSION: Extensive bilateral pulmonary emboli, with evidence of right ventricular strain. No evidence of pneumonia, pulmonary edema, or pulmonary infarct. This report is limited to the body part and modality requested, regardless of which images were uploaded. If additional reports are required, please contact the appropriate Division of the Radiology Department. Narrative [facility] - 12/22/2015 11:02 AM EDT EXAM: [...] I NTERPRETATION Final Result Performing Organization Address City/State/[facility] Co de Phone Number [facility] [address] [facility] [place] [address] documented in this encounter Visit Diagnoses Not on filedocumented in this encounter Care Teams Fermentation Scientist Relationship Specialty Start Date End Date Florinda Nino MD [address] [place] [phone] PCP - General Family Medicine 12/21/15 documented as of this encounter Additional Source Comments The information contained in this document represents components of the legal health record. It is not the complete legal health record.[facility]
--- OUTSIDE RECORDS SUMMARY | 2023-07-06 10:35 | XMS_ITS ---
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 Name Role Phone RICKY GARZA, DAISY Primary Care Provider Amor Gutierrez Jr [phone] REASON FOR VISIT Patient presents today for intestinal issues Encounters Encounter Location Date Provider Diagnosis [facility] [address] [place] [phone] 07/06/2023 Amor Dobbins Jr Plan Of Treatment No Information Progress Notes * TOMMY CHOU EDOB:1945 (79 yo F)Acc No.[id number]:07/06/2023 Progress Notes Patient: TOMMY MICHELLE Provider: Francie Dobbins MD :1945 A ge:78 Y S ex:Female Date:07/06/2023 Address:[address] [place], [place] [id number] Pcp:Jake GALEANO Subjective: * Chief Complaints: * 1 . Patient presents today for intestinal issues. * Medical History: Objective: * Vitals: Assessment: Plan: * Treatment: * * The named appointment provid er may or may not be the originator of this progress note, and it is not deemed complete until electronically signed by the appointment provider. Sign off status: Pending * Provider: Francie Dobbins MD Date: 0 07/06/2023 Generated for Printi ng/Famatildeg/eTransmitting on: 12/11/2024 03:53 PM EDT
--- OUTSIDE RECORDS SUMMARY | 2023-09-18 06:00 | XMS_ITS ---
Author Organization [facility] Address [address] [place] [phone] Care Team Providers Care Insurance Examining Clerk Name Role Phone RICKY GARZA, DAISY Primary Care Provider Amor Gutierrez Jr Unavailable REASON FOR VISIT Patient presents today for intestinal issues Encounters Encounter Location Date Provider Diagnosis [facility] [address] [place] [phone] 09/18/2023 Amor Dobbins Jr Plan Of Treatment No Information Progress Notes * TOMMY CHOU EDOB:1945 (79 yo F)Acc No.[id number]:09/18/2023 Progress Notes Patient: TOMMY MICHELLE Provider: Francie Dobbins MD :1945 A ge:78 Y S ex:Female Date:09/18/2023 Address:[address] [place], [place] [phone] Pcp:Jake GALEANO Subjective: * Chief Complaints: * [...] 0 09/18/2023 Generated for Printi ng/Famatildeg/eTransmitting on: 12/11/2024 03:53 PM EDT
--- OUTSIDE RECORDS SUMMARY | 2024-01-17 07:20 | XMS_ITS ---
Author Organization [facility] Address [address] [place] [phone] Care Team Providers Care Recovery Unit Operator Name Role Phone RICKY GARZA, DAISY Primary Care Provider Amor Gutierrez Jr [phone] REASON FOR VISIT INTESTINAL ISSUES Encounters Encounter Location Date Provider Diagnosis [facility] 10 [address] [facility] [address] [place] [phone] 01/17/2024 Amor Dobbins Jr Plan Of Treatment No Information Progress Notes * TOMMY CHOU EDOB:1945 (79 yo F)Acc No.[id number]:01/17/2024 Progress Notes Patient: TOMMY MICHELLE Provider: Francie Dobbins MD :1945 A ge:78 Y S ex:Female Date:01/17/2024 Address:[address] [place], [place] [phone] Pcp:Jake GALEANO Subjective: * Chief Complaints: * [...] 1 Generated for Printi ng/Faxing/eTransmitting on: 0 12/11/2024 03:52 PM EDT
--- NOTE | 2024-12-11 14:46 | A.SPINEOV_ITS ---
Intake Visit Reasons: 2nd post op with xrays Intake Note: Ms. Corea is here today for her 2nd post op with xrays. Oleo Hasher And Renderer Required: No Allergies bee pollen (bee stings) Allergy (Severe, Verified 10/08/24 12:18) Anaphylaxis lidocaine (From LIDODERM) Allergy (Severe, Verified 10/08/24 12:18) BLISTERS from adhesive morphine (MORPHINE) Allergy (Severe, Verified 10/08/24 12:18) PO will cause itching, can tolerate IV Penicillins (PENICILLINS) Allergy (Severe, Verified 10/08/24 12:18) SWELLING/ITCHING ampicillin Allergy (Intermediate, Verified 10/08/24 12:18) rash/hives gabapentin (GABAPENTIN) Allergy (Intermediate, Verified 10/08/24 12:18) SORES IN MOUTH/AGITATION enalapril Adverse Reaction (Severe, Verified 10/08/24 12:18) hyperkalemia Assessment & Plan Assessment & Plan (1) S/P cervical spinal fusion: Code(s): Z98.1 - Arthrodesis status Category: Surgical Plan Mrs Corea is 2 months out from her anterior cervical fusion C4-5, C5-6 for persistent myelopathic symptoms. While she has had significant improvement in the preoperative arm symptoms that she had including pain and numbness, she has had a persistent neck pain that she just can not shake. She takes Tylenol and oxycodone. Her daughter who is here with her today and helping with Brazilian, tells me that they have even bought a new bed and mattress to try to resolve the situation. She just can not seem to get comfortable. She tries heat ice etc.. I reviewed her x-rays today with Dr. Fernando in it appears as though she has a fracture at the endplate superiorly of the C5 vertebral body. It looks as though the implant slid slightly forward. At C5-6 there is also in the interspace some evidence that the implant has come forward slightly as well. There is no overt signs of movement with flexion or extension but it is concerning that it has changed compared to the intraoperative studies taken at the time of surgery. His plan is to repeat the x-rays in 1 month and re- evaluate. If the neck pain obviously gets significantly worse we can see her sooner. If it continues to collapse or she escalates with the pain, she would likely need 360 degree surgery. We talked about the possibility of having a use a collar but at this 0.2 months out he does not think it necessary. Octaviano Fernando MD, PhD [facility] Orders: Orders XR cervical spine 4V Today Z98.1 - Arthrodesis status XR cervical spine 4V Today Z98.1 - Arthrodesis status Coding Level of Care Code Global (63118) Diagnoses S/P cervical spinal fusion Z98.1
--- OUTSIDE RECORDS SUMMARY | 2024-12-11 15:53 | XMS_ITS | Patient Health Record ---
Author Organization [facility] Address [address] [place] [address] Care Team Providers Care Leacher Name Role Phone Massimo Figueroa Primary Care Provider Unavail able Miguel A Layne Unavailable [phone] Allergies Allergen (clinical drug ingredient) Drug/Non Drug [...] Active Celecoxib 200 MG (Prior Auth: Rx Ref#:[id number]) Oral; Duration: 30 Not-Taking Tresiba Active DULoxetine HCl 60 MG (Prior Auth: Rx Ref#:[id number]) Oral; Duration: 30 Not-Taking NovoLOG Active Enalapril Maleate 10 MG (Prior Auth: Rx Ref#:[id number]) Oral; Duration: 90 Not-Taking Acetaminophen Extra Strength 500 MG (Prior Auth: Rx Ref#:[id number]) Oral; Duration: 13 Active Gabapentin 400 MG (Prior Auth: Rx Ref#:[id number]) Oral; Duration: 90 Not-Taking Albuterol Sulfate (2.5 MG/3ML) 0.083% (Prior Auth: Rx Ref#:[id number]) Inhalation; Duration: 10 Active Ferrous Sulfate 325 (65 Fe) MG 1 tablet Orally Once a day; Duration: 30 day(s) Not-Taking Capsaicin 0.025 % 1 application to affected area as needed Externally Three times a day Active Fluticasone Furoate 200 MCG/ACT 1 puff Inhalation Once a day Active hydroCHLOROthiazide 12.5 MG (Prior Auth: Rx Ref#:[id number]) Oral; Duration: 30 Active Polyethylene Glycol 3350 - as directed Active Flunisolide 25 MCG/ACT (0.025%) (Prior Auth: Rx Ref#:[id number]) Nasal; Duration: 25 Active Extra Depth Orthopedic Shoes (1 Pair) with Customized Heat Molded Multidensity Innersoles (3 Pair) as directed Dx: IDDM/Polyneuropathy (E10.42), Hammertoe Foot Deformity (M20.41,M20.42), Preulcerative Skin Lesion(s) (L85.1) 01/12/2023 Active Loratadine 10 MG (Prior Auth: Rx Ref#:[id number]) Oral; Duration: 90 Active Montelukast Sodium 10 MG (Prior Auth: Rx Ref#:[id number]) Oral; Duration: 30 Active oxyCODONE HCl 5 MG (Schedule II Drug) (Prior Auth: Rx Ref#:[id number]) Oral; Duration: 28 Active Pantoprazole Sodium 40 MG (Prior Auth: R x Ref#:[id number]) Oral; Duration: 30 Active Pravastatin Sodium 10 MG (Prior Auth: Rx Ref#:[id number]) Oral; Duration: 30 Active Aspirin Low Dose 81 MG (Prior Auth: Rx Ref#:[id number]) Oral; Duration: 90 Not-Taking Citracal + D [...] Problem Acquired hammer toe of right foot (0632327142595724 ) Other hammer toe(s) (acquired), right foot (M20.41) Active confirmed Problem Acquired hammer toe of left foot (9296706546623834 ) Other hammer toe(s) (acquired), left foot (M20.42) Active confirmed Problem Polyneuropathy due to diabetes mellitus type I (913833267) Type 1 diabetes mellitus with diabetic polyneuropathy (E10.42) Active confirmed Plan Of Treatment Pending Test Test Name Order Date X ray : Foot, left 3V 12/18/2018 X ray : Foot, right 3V 12/18/2018 [id number] NAIL, 6 OR MORE 11/10/2021 45147-[id number] NAIL, 6 OR MORE 01/12/2023 22199-NDKQ SKIN LESIONS, OVER 4 01/13/20 23 01976-VHFZ SKIN LESIONS, OVER 4 11/11/19 22 33630-VXGA SKIN LESIONS, OVER 4 09/19/19 19 21887-TANR SKIN LESIONS, OVER 4 12/19/19 19 21939-PLRA SKIN LESIONS, OVER 4 03/26/20 19 91185-KWFU SKIN LESIONS, OVER 4 09/09/19 21 32203-KWAW SKIN LESIONS, OVER 4 06/12/19 22 Insurance Providers Payer Name Payer Address Payer Phone Subscriber Number Group Number Insured Name Patient Relationship to Insured Coverage Start Date Coverage End Date [facility] [employer] Claims [address] [place] [id number] Leonie Corea Self - patient is the [...] History Reason Date(Month/Year) [facility]- [facility] heart [facility] for kidney stones 05/01
--- OUTSIDE RECORDS SUMMARY | 2024-12-11 15:53 | XMS_ITS | Patient Health Record ---
Author Organization [facility] Address [address] [place] [address] Care Team Providers Care Actuarial Science Professor Name Role Phone RICKY GARZA, DAISY Primary [...] Once a day for 30 day(s) Active Zyeszdsarbq-Ovcebtmiq-Yhpngg 100-62.5-25 MCG/INH 1 puff Inhalation Once a [...] Problem Status W/U Status Risk Notes Problem 88872426 Epigastric pain (R10.13) Active confirmed Problem 782002308 Gastroesophageal reflux disease without esophagitis (K21.9) Active confirmed Problem 96800233 Iron deficiency anemia, unspecified iron deficiency anemia type (D50.9) Active confirmed Problem 416402454 Anemia, unspecif ied type (D64.9) Active confirmed Problem 41828349 Dysphagia, unspecified type (R13.10) Active confirmed Problem 21242400 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
--- OUTSIDE RECORDS SUMMARY | 2024-12-11 15:53 | XMS_ITS | Clinical Summary ---
Author Organization [facility] Address [address] [place] [address] Phone Care Team Providers Care Automotive Electrician Helper Name Role Phone Massimo Mcclellan Primary Care Provider Allergies Active Allergy Reactions [...] Encounters Date Type Department Care Team Description 10/29/2024 2:00 PM EDT Office Visit Orthopedic Surgery [facility] [address] [address] Florian Mott DPM Controlled type 2 diabetes with neuropathy ([facility] V24, [facility] V28) (Primary Dx); Pain in [...] Care Team (Late st Contact Info) Description 12/17/2024 1:15 PM EDT Office Visit Orthopedic Surgery [facility] [address] [phone] Florian Mott DPM [address] [address] Health Maintenance Due Date Last Done Comments Diabetes: Annual Foot Exam 1955 Diabetes: Annual Retina Eye Exam 1955 RSV Immunization Adult Patients (1 - 1-dose 75+ series) 07/06/2019 Falls Risk Assessment 03/13/2022 Medicare Annual Wellness Visit 03/13/2022 Osteoporosis Screening (Bone Density Screening) 03/13/2022 Social Influencers of Health Screening 03/13/2022 Depression Screening 04/10/2024 Diabetes: Annual GFR (Glomerular Filtration Rate) 10/24/2024 10/25/2023, 07/19/2017 Hypertension/CHF/CAD Annual BMP Blood Test 10/24/2024 10/25/2023, 07/19/2017 Hepatitis B Vaccines (2 of 2 - CpG risk 2-dose series) 11/26/2024 10/29/2024 COVID-19 Vaccine (8 - Pfizer risk season) 2024 12/27/2023, 02/14/2023, 05/25/2022, Additional history exists Influenza Vaccine (#1) 2024 , 05/08/2023, 02/04/2023, Additional history exists Diabetes: Blood Sugar Control Test (HGBA1C) 02/19/2025 08/19/2024, 10/25/2023 Hepatitis A Vaccines (2 of 2 - Risk 2-dose series) 05/01/2025 10/29/2024 Diabetes: Annual Urine Albumin-Creatinine Ratio (uACR) 08/19/2025 08/19/2024, 07/26/2023 Cholesterol Screening (Lipid Panel) 08/19/2029 08/19/2024, 08/19/2024, 05/08/2023, Additional history exists DTaP,Tdap,and Td Vaccines (4 - Td or Tdap) 10/29/2034 10/29/2024, 05/12/2014, 11/10/2010 Pneumococcal Vaccine: 50+ Years Completed 05/12/2014, 11/10/2010, [...] Most Recently Relevant to Health Maintenance Insurance [facility] Member Subscriber Plan / Payer (Ef fective 2012-Present) Name:Leonie Corea Relation to Subscriber:Self Name:Leonie Corea Payer ID:[id number] Group ID:[id number] Type:Not on file Address: [address] [address] Advance Directives Documents on File Type Date Recorded Patient Carpenter Repairer Expl anation Health Care Decision (hx) [...] (hx) 12/25/2015 AD NIEVES DIRECTIVE Care Teams Automotive Electrician Helper Relationship Specialty Start Date End Date Massimo Mcclellan PA [address] [place] [address] PCP - General 11/24/23
--- OUTSIDE RECORDS SUMMARY | 2024-12-11 15:54 | XMS_ITS | Clinical Summary ---
Author Organization [facility] Address [address] [employer] [address] [employer] [address] [place] [address] Phone Care Team Providers Care Physical Fitness Teacher Name Role Phone Florinda Nino MD [...] 75+ series) 07/06/2019 LIPID PANEL 12/22/2020 12/23/2015 Adult Td,Tdap Booster 05/12/2024 05/12/2014, 011 INFLUENZA VACCINE (#1) 2024 02/25/2020, 2015 COVID-19 VACCINE ( season) 2024 06/11/2020, 05/21/2020 PNEUMOCOCCAL VACCINES (50+ years) Completed 05/12/2014, 11/10/2010, [...] EDT) CREATININE 0.84 0.60 - 1.50 mg/dL [facility] EGFR >60 mL/min/1.7 3m2 [facility] Comment:Abnormal if <60 mL/m in/1.73m2. If patient is -[place]alan, multiply the result by 1.21. Blood 12/25/2015 3:10 AM EDT 12/25/2015 3:15 AM EDT To Arroyo MD LAB BLOOD ORDERABLES Final Resul t Performing Organization Address [facility] Co de Phone Number [address] [address] * Potassium (12/25/2015 3:10 AM EDT) POTASSIUM 4.1 3.4 - 5.0 mmol/L [facility] Blood 12/25/2015 3:10 AM EDT 12/25/2015 3:15 AM EDT To Arroyo MD LAB BLOOD ORDERABLES Final Resul t Performing Organization Address [facility] de Phone Number [address] [address] * (ABNORMAL) Lipid panel (12/23/2015 6:15 AM EDT) HDL 33(L) 35 - 100 mg/dL [facility] CHOLESTEROL 169 mg/dL [facility] Comment:DESIRABLE: <200 TRIGLYCERIDES 149 40 - 150 mg/dL [facility] LDL 106 mg/dL [facility] Comment:DESIRABLE: <130 CARDIAC RISK RATIO 5.1 [facility] Comment:NORMAL RISK RATIO: 5 .0 OR LESS 12/23/2015 6:15 AM EDT 12/23/2015 6:48 AM EDT Rishi Lindsey MD LAB BLOOD ORDERABLES Final R esult Performing Organization Address [facility] de Phone Number [address] [address] from Last 3 Months or Most Recently Relevant to Health Maintenance Insurance MEDICARE REPLACEMENT MEDICARE REPLAC[place] [address] [place] [address] MEDICARE REPLACEMENT MEDICARE REPLACEMENT MEDICARE REPLACEMENT [place] [address] MEDICARE REPLACEMENT MEDICARE REPLACEMENT Advance Directives For more information, please contact: [phone] (9AM - 5PM [facility], Monday-Monday) Documents on File Type Date Recorded Patient Senior Climate Advisor Expl anation Healthcare Proxy 12/29/2015 10:38 AM Deborah d 01/23/2012 MOLST 12/29/2015 10:38 AM Signed * Full Code (Presumed) (Latest Code Status on File) Date Activated Date Inactivated Comments 12/21/2015 11:58 PM 12/25/2015 6:54 PM Care Teams Physical Fitness Teacher Relationship Specialty Start Date End Date Florinda Nino MD [address] [place] [address] PCP - General Family Medicine 12/21/15 Additional Source Comments The information contained in this document represents components of the legal health record. It is not the complete legal health record.[facility]
--- OUTSIDE RECORDS SUMMARY | 2024-12-11 15:54 | XMS_ITS | Clinical Summary ---
Author Organization [facility] Address [address] [place] [address] Care Team Providers Care Operations Supervisor 2Nd Shift Name Role Phone Massimo Mcclellan Primary Care Provider [phone] Source Comments PLEASE NOTE, if this patient [...] asthma, unspecified asthma severity, unspecified whether persistent ([facility]) Inhale 2 Puffs into the lungs every 4 (four) hours as needed for shortness of breath or wheezing 18 g 5 2022 Active nitroglycerin (NITROSTAT) 0.3 mg SL [...] years -BMI 28.34 1 Each 2023 Active LORazepam (ATIVAN) 0.5 mg tablet Take 1 Tablet by mouth 3 (three) times daily as needed for anxiety or sleep 90 Tablet 1 2023 Active acetaminophen (TYLENOL) 500 mg tabletIndication s:Other diabetic neurological complication associated with type 2 diabetes mellitus (CMS & HHS-HCC),Fibromy algia,Osteoarthr itis, unspecified osteoarthritis type, unspecified site Take 2 Tablets by mouth every 6 (six) hours as needed for pain 60 Tablet 2 2023 Active naloxone (NARCAN) 4 mg/actuation nasal spray Place 1 [place] into the nostril(s) as needed for opioid reversal (Overdose) 2 Each 2023 Active diaper,brief,jarret lt,disposableInd ications:Urinary incontinence without sensory awareness Use one large brief up to 3 times daily. 120 Each 2023 Active nut.tx.gluc.into l,lac-free,soy (GLUCERNA ADVANCE) liqdIndications: Primary hypertension,Hyp ercholesterolemi a,Type 2 diabetes mellitus without complication, with long-term current use of insulin (CMS & HHS-HCC),Urinary incontinence without sensory awareness,Seizur e disorder (CMS & HHS-HCC),Moderat e vascular dementia, unspecified whether behavioral, psychotic, or mood disturbance or anxiety (CMS & HHS-HCC),Oxygen dependent,Hyperp arathyroidism (CMS & HHS-HCC),Esophag eal varices without bleeding, unspecified esophageal varices type (CMS & HHS-HCC),Cirrhos is of liver without ascites, unspecified hepatic cirrhosis type (CMS & HHS-HCC),Periphe ral venous insufficiency,Os teopenia, unspecified location,Iron deficiency Take 1 Can by mouth 2 (two) times a day 237 mL 2023 Active triamcinolone (KENALOG) 0.025 % cream [facility]/pharmacy #[id number] [place], [place] [phone] 60 g 0 Days Supply: 10Sig: APLIQUE AL JACOBO AFECTADA TOPICALLY DOS VECES AL D A POR 10 D ASSource: 2 Outside SourcesAuthorized by: THO HERNANDEZ 2023 Active montelukast (SINGULAIR) 10 mg tablet Take 1 Tablet by mouth nightly at bedtime (Prescribed by construction secretary Dr. Berkowitz) 2023 Active apixaban (ELIQUIS) 5 mg tab Take 1 Tablet by mouth 2 (two) times Daily (Prescribed by construction secretary - Dr. Michael Berkowitz) 2023 Active glucose 4 gram chewable tabletIndication s:Type 2 diabetes mellitus with diabetic peripheral angiopathy without gangrene, with long-term current use of insulin ([facility]) Place 4 Tablets into mouth, chew and swallow as needed for low blood sugar (Less than 90 mg/dL) 30 Tablet 5 2024 Active escitalopram (LEXAPRO) 20 mg tablet TOME 1 TABLETA POR VIA ORAL TODOS LOS HDZ 90 Tablet 1 2024 Active isosorbide mononitrate [...] gangrene, with long-term current use of insulin ([facility]) Inject 0-16 Units into the skin 3 (three) times daily before meals (Do not use if blood glucose is less than 100 mg/dL) - max 48 units/day 15 mL 5 2024 Active ferrous sulfate 325 mg (65 mg iron) tabletIndication s:Iron deficiency TAKE 1 TABLET BY MOUTH ONCE DAILY WITH BREAKFAST 90 Tablet 1 2024 Active busPIRone (BUSPAR) 15 mg tablet TAKE 1/3-1/2 TABLET ORALLY IN THE MORNING AND EVENING NEEDED AND 1 TAB AT BEDTIME. 180 Tablet 2 2024 Active famotidine (PEPCID) 40 mg tablet TOME GAGE TABLETA POR VIA ORAL AT NOCHE AL ACOSTARSE CUANDO SEA NECESARIO PARA LA ACIDEZ 90 Tablet 1 2024 Active levocetirizine (XYZAL) 5 mg tablet TOME 1 TABLETA POR VIA ORAL TODOS LOS HDZ NEEDED FOR ALLERGIES BEFORE DINNER 90 Tablet 1 2024 Active acetaminophen (TYLENOL 8 HOUR) 650 mg CR tabletIndication s:Routine adult health maintenance TOME GAGE TABLETA POR VIA ORAL CADA OCHO HORAS CUANDO SEA NECESARIO FOR PAIN 90 Tablet 1 2024 Active blood sugar diagnostic stripsIndication s:Type 2 diabetes mellitus with diabetic nephropathy, with long-term current use of insulin ([facility]),Type 2 diabetes mellitus with diabetic peripheral angiopathy without gangrene, with long-term current use of insulin ([facility]) Use to test blood glucose three times daily. (Freestyle Lite). 100 Each 2024 Active lancets (FREESTYLE LANCETS) 28 gaugeIndications :Type 2 diabetes mellitus with diabetic nephropathy, with long-term current use of insulin ([facility]),Type 2 diabetes mellitus with diabetic peripheral angiopathy without gangrene, with long-term current use of insulin ([facility]) Use to test blood glucose three times daily. (Freestyle Lancets). 100 Each 2024 Active alcohol swabsIndications :Type 2 diabetes mellitus with diabetic nephropathy, with long-term current use of insulin ([facility]),Type 2 diabetes mellitus with diabetic peripheral angiopathy without gangrene, with long-term current use of insulin ([facility]) Use to test blood glucose three times daily.. 100 Each 2024 Active pen needle, diabetic 31 gauge x 5/16 ndleIndications: Type 2 diabetes mellitus with diabetic peripheral angiopathy without gangrene, with long-term current use of insulin ([facility]) Use to inject insulin up to 4 times daily.. 200 Each 2024 Active sennosides (SENNA) 8.6 mg tabletIndication s:Constipation, unspecified constipation type Take 1 Tablet by mouth nightly at bedtime as needed for constipation. 90 Tablet 1 2024 Active venlafaxine XR (EFFEXOR XR) 75 mg 24 hr capsule Take 75 mg by mouth once daily with breakfast (Prescribed by psychiatrist - Dr. Martinez). 2024 Active amLODIPine (NORVASC) 10 mg tabletIndication s:Essential hypertension Take 1 Tablet by mouth every morning For blood pressure. 90 Tablet 1 2024 Active atorvastatin (LIPITOR) 20 mg tabletIndication s:Type 2 diabetes mellitus with diabetic peripheral angiopathy without gangrene, with long-term current use of insulin ([facility]),Hyperli pidemia LDL goal <70 Take 1 Tablet by mouth nightly at bedtime For cholesterol. 90 Tablet 1 2024 Active insulin degludec (TRESIBA FLEXTOUCH U-200) 200 unit/mL (3 mL)Indications:T ype 2 diabetes mellitus with diabetic peripheral angiopathy without gangrene, with long-term current use of insulin ([facility]) Inject 18 Units into the skin nightly at bedtime Increased dosing. 9 mL 5 2024 Active glucagon (BAQSIMI) 3 mg/actuation spryIndications: Type 2 diabetes mellitus with diabetic peripheral angiopathy without gangrene, with long-term current use of insulin ([facility]) Administer 3 mg (one actuation) into a single nostril if glucose is less than 54 mg/dL; if no response, may repeat in 15 minutes using a new intranasal device.. 2 Each 1 2024 Active oxyCODONE (ROXICODONE) 10 mg tab tabletIndication s:Sciatica, unspecified laterality,Osteo arthritis, unspecified osteoarthritis type, unspecified site,Fibromyalgi a,Peripheral venous insufficiency,Ce rvical pain (neck),Myofascia l muscle pain Take 1 Tablet by mouth every 6 to 8 (six to eight) hours NEEDED FOR SEVERE PAIN!!. Max Daily Amount: 4 Tablets 120 Tablet 2024 Active esomeprazole (NEXIUM) [address] capsule TOME GAGE CAPSULA TODOS LOS HDZ EN LA MANANA ANTES DEL DESAYUNO 90 Capsule 2024 Active artificial tears,hypromello se, (GENTEAL) 0.3 % ophthalmic solution Apply 1 Drop to eye 4 (four) times daily 15 mL 2 11/13 Discontinued( Outdated-Ezio alcides from Med List (E-Cancel Not Sent)) glucagon (BAQSIMI) 3 mg/actuation spry PLACE 3 MG INTO THE NOSTRIL(S) EVERY MORNING 2 Each 2 11/13 Discontinued( Reorder (E-Cancel Not Sent)) ondansetron ODT (ZOFRAN-ODT) 4 mg disintegrating tabletIndication s:Nausea Take 1 Tablet by mouth every 8 (eight) hours as needed for nausea 31 Tablet 1 11/13 Discontinued( Therapy completed/Not needed) GAVILYTE-G 236-22.74-6.74 -5.86 gram solution 11/13 Discontinued( Therapy completed/Not needed) insulin degludec (TRESIBA FLEXTOUCH U-200) 200 unit/mL (3 mL)Indications:T ype 2 diabetes mellitus with diabetic peripheral angiopathy without gangrene, with long-term current use of insulin ([facility]) Inject 16 Units into the skin nightly at bedtime Increased dosing 9 mL 5 11/13 Discontinued( Reorder (E-Cancel Not Sent)) esomeprazole (NEXIUM) [address] capsule TOME GAGE [place]A TODOS LOS HDZ EN LA MANANA ANTES DEL DESAYUNO 90 Capsule 11/19 Discontinued amLODIPine (NORVASC) 10 mg tabletIndication s:Essential hypertension Take 1 Tablet by mouth every morning For blood pressure. 90 Tablet 1 11/13 Discontinued( Reorder (E-Cancel Not Sent)) atorvastatin (LIPITOR) 20 mg tabletIndication s:Type 2 diabetes mellitus with diabetic peripheral angiopathy without gangrene, with long-term current use of insulin ([facility]),Mixed hyperlipidemia Take 1 Tablet by mouth nightly at bedtime stop pravastatin 10 mg 90 Tablet 1 11/13 Discontinued( Reorder (E-Cancel Not Sent)) venlafaxine (EFFEXOR) 37.5 mg tabletIndication s:Cervical pain (neck),Fibromyal wong TOME 1 TABLETA POR VIA ORAL TODOS LOS HDZ 90 Tablet 1 11/13 Discontinued( Quantity/Dosa ge and/or Sig change) oxyCODONE (ROXICODONE) 10 mg tab tabletIndication s:Sciatica, unspecified laterality,Osteo arthritis, unspecified osteoarthritis type, unspecified site,Fibromyalgi a,Peripheral venous insufficiency,Ce rvical pain (neck),Myofascia l muscle pain Take 1 Tablet by mouth every 6 to 8 (six to eight) hours NEEDED FOR SEVERE PAIN!!. Max Daily Amount: 4 Tablets 120 Tablet 11/17 Discontinued( Reorder (E-Cancel Not Sent)) enoxaparin (LOVENOX) 60 mg/0.6 mL syringe See Admin Instructions. 11/13 Discontinued( Therapy completed/Not needed) Active Problems Problem Noted Date Diagnosed Date [...] syndrome 08/08/2022 08/09/19 23 Overview (08/28/2024): 08/19/24 [facility] pain management Plan recommend surgical intervention at [...] focusing on reducing falls. Diabetic peripheral angiopathy ([facility]) 0 08/08/2022 08/08/2022 Dry skin 08/08/2022 08/08/2022 Dysphagia 08/08/2022 08/08/2022 Incontinence of urine 08/08/2022 08/08/2022 Early onset Alzheimer's dementia ([facility]) 08/08/2022 08/08/2022 Epigastric pain 08/08/2022 08/08/2022 Left ventricular hypertrophy 08/08/202204/2022 Overview (03/05/2024): 12/20/23 at [facility] [place] Cardio Chest pain Improved with Imdur; unclear [...] may be normal for the patient's age. prison current use of anticoagulant therapy 0 08/08/2022 08/08/2022 Memory impairment 08/08/2022 08/08/2022 Myofascial muscle pain 08/08/2022 JENNIFER (obstructive sleep apnea) 08/08/2022 Oxygen dependent 08/08/2022 08/08/2022 Restless leg syndrome 08/08/2022 08/08/2022 Subclinical hypothyroidism 08/08/202208/08 Unspecified cirrhosis of liver ([facility]) 0 08/08/2022 08/08/2022 Vascular dementia ([facility]) 08/08/2022 08/08/2022 Cataract 11/07/2017 08/08/2022 Overview (08/08/2022): left catarct surgery on 08/28/08 by SURGEON: Tana Coronado M.D. left catarct surgery on 08/28/08 by SURGEON: Tana Coronado M.D. CKD (chronic kidney disease) stage 3, GFR 30-59 ml/min ([facility]) 11/07/2017 08/08/2022 Meniere disease 11/07/2017 08/08/2022 Overview (08/08/2022): 2016 Dr Baker Pulmonary hypertension ([facility]) 8 08/08/2022 Overview (08/08/2022): b/l submassive PE diagnosed on Dec [address] [facility] b/l submassive PE diagnosed on Dec [address] [facility] 2016 DAVID RVSP- 46 Tubular adenoma of colon 11/07/2017 023 Overview (08/08/2022): 2005 Hyperparathyroidism ([facility]) 08/29/2017 08/08/2022 Overview (08/08/2022): Right lower parathyroidectomy. 06/16/08 SURGEON: Danny Marie M.D. COMMUNITY HEALTH AGENT: Naima Bowling M.D. Kidney stone 08/29/2017 08/08/2022 Hyperlipidemia LDL goal <70 08/29/2017 05/0 04/2022 Essential hypertension 08/29/2017 Seizure disorder ([facility]) 08/29/2017 08/08/2022 Overview (08/08/2022): Not on medication Viral hepatitis C 08/29/2017 08/08/2022 Osteoarthrosis 08/23/2017 08/08/2022 Overview (08/08/2022): EGD on 06/24/16 by GI, Dr Damien caballero gastritis and esophageal varices grade 1 Lumbar spine Allergic rhinitis 08/23/2017 08/08/2022 Depression 08/23/2017 08/08/2022 Asthma-chronic obstructive p ulmonary disease overlap syndrome ([facility]) 08/23/2017 08/08/2022 Type 2 diabetes mellitus wit h diabetic peripheral angiopathy without gangrene, with long-term current use of insulin ([facility]) 08/23/2017 08/08/2022 Overview (11/13/2024): DM dx: 51 years old per patient [...] (05/12/14) PPSV23 (11/10/10, 05/20/04) Diabetes foot exam: 10/29/24 at [facility] Educated on importance of keeping tight glucose control, chances for ulceration infection amputation in future Pt suffering with arthritic change of the midfoot. Encouraged to use topical anti-inflammatory medication to help decrease flare-ups Encouraged to use supportive devices Nail debridement 1-5 bilaterally RTC 9 weeks 04/25/24 at [facility] - notes on file 02/21/24 at [facility] - notes on file Diabetes retinal [...] glasses RX, optional F/U 1 year [facility] [place] Endocrinology: 11/24/22 Start Tradjenta 5 mg Continue [...] insufficiency 05/24/2017 Overview (03/05/2024): 12/20/23 at [facility] [place] Cardio Chest pain Improved with Imdur; unclear [...] 05/24/2017 08/08/2022 Overview (03/05/2024): 12/20/23 at [facility] [place] Cardio Chest pain Improved with Imdur; unclear [...] normal for the patient's age. Esophageal varices ([facility]) 06/24/2016 08/08/2022 Overview (08/08/2022): endoscopy 10/05/2018 [...] Overview (08/08/2022): TTE 12/22/[address] [facility]: RV dilatation, RVSP 46 TTE 12/22/[address] [facility]: RV dilatation, RVSP 46 Anemia 12/21/2015 08/08/2022 Deep vein thrombosis (DVT) ([facility]) 12/2008/08/2022 Overview (08/08/2022): LE US- DVT involving 2 of 2 peroneal veins diagnosed on Dec [address] [facility] LE US- DVT involving 2 of 2 peroneal veins diagnosed on Dec [address] [facility] Positive PPD 10/09/2014 08/08/2022 Overview (08/08/2022): [...] Peripheral venous insufficiency 10/31/2011 08/08/2022 Diabetic neuropathy ([facility]) 09/19/2007 08/08/2022 Sciatica 05/24/2004 08/08/2022 Tubular adenoma 04/10/2004 08/08/2022 Overview (08/08/2022): [facility] July 2009 exc for 2 hyperplastic polypsColonoscopy 2004 at [facility] per letter of Dr Amor Dobbins Tubular adenoma 04/10/2004 08/08/2022 Overview (08/08/2022): [facility] col July 2009 exc for 2 hyperplastic polypsColonoscopy 2004 at [facility] per letter of Dr Amor Dobbins Resolved Problems Problem Noted Date Diagnosed Date Resolved Date Obesity 08/08/2022 08/08/2022 07/24/2024 Encounters Date Type Department Care Team Description 11/25/2024 1:00 PM EDT Office Visit [facility] [address] [place] [phone] Wild Vickers DDS 11/13/2024 10:20 AM EDT Telemedicine [place] [facility] [place] [address] [place] [phone] Darwin Encinas PharmD 10/29/2024 10:40 AM EDT Office Visit [facility] [address] [place] [phone] Massimo Mcclellan PA Diaz, Wilma from Last 3 Months Immunizations Immunization Administration Dates Next Due COVID-19,SARS-COV-2 VACCINE, UNSPECIFIED (US Admin) 05/25/2022,09/15/2021 Flu, High Dose, 65y+, Fluzon e High Dose 05/08/2023 Flu, Preservative Free 12/25/2015 Hep A, adult 10/29/2024 Hep B,adult,adjuvanted (HEPLISAV) 10/29/2024 INFLUENZA, SEASONAL, INJECTABLE 05/25/19 23,03/09/2021,02/23/2021,02/24,01/09/2020,01/16/2019,01/17/2018 ,01/04/2017,03/04/2015,01/22/2014,05/2012,01/31/2011,02/01/2010, 9,02/09/2006,05/06/2004 Influenza (FLUZONE), high-do se, trivalent, PF 12/27/2023 Moderna COVID-19 (Spikevax), Mrna, Lnp-s, Pf, 50 Mcg/0.5 Ml, 12yr+ 02/14/2023 PFIZER COVID VACCINE, PURPLE CAP, 12+ 03/18/2021 PNEUMOCOCCAL CONJUGATE PCV 13 05/12/2014 PNEUMOCOCCAL POLYSACCHARIDE PPV23 (Pneumovax 23) 11/10/2010,05/20/2004 Pfizer COVID-19 (Comirnaty), Mrna, Lnp-s, Pf, Uziel-sucrose, 30 Mcg/0.3 Ml, 12yr+ 12/27/2023 TDAP 10/29/2024,05/12/2014 Td (adult) unspecified 11/10/2010 Td (adult),2 Lf tetanus toxo id (TDVAX), preservative free 11/10/2010 ZOSTER VACCINE, RECOMBINANT (SHINGRIX) 2,09/15/2021 [...] enough money to get more. 2 10/25/19 24 Transportation Needs Answer Date Record ed Hard [...] Sign Reading Time Taken Comments Blood Pressure 118/69 11/25/2024 1:18 PM EDT Pulse 77 11/25/2024 1:18 PM EDT Temperature 36.7 C (98.1 F) 10/29/2024 10:45 AM EDT Respiratory Rate 18 10/29/2024 10:45 AM EDT Oxygen Saturation 96% 10/29/2024 10:45 AM EDT Inhaled Oxygen Concentration - - Weight 64.4 kg (142 lb) 10/29/2024 10:45 AM EDT Height 160 cm (5' 3 ) 10/29/2024 10:45 AM EDT Body Mass Index 25.15 10/29/2024 10:45 AM EDT Plan of Treatment Upcoming Encounters Date Type Department Care Team (Late st Contact Info) Description 01/30/2025 4:00 PM EDT Office Visit [facility] [address] [place] [phone] Massimo Mcclellan PA [address] [place] [address] Hillary Berkowitz [address] [place] [address] Health Maintenance Due Date Last Done Comments Urine Drug Screen 1945 Medicare Annual Wellness Visit 1963 Imm-RSV (adult) (1 - 1-dose 75+ series) 07/06/2019 Hepatocellular Carcinoma Scr eening (HCC) 04/23/2023 10/21/2022 Imm-Hepatitis B (2 of 2 - Cp G risk 2-dose series) 11/26/2024 10/29/2024 [id number]-54 ( season) 2024 12/27/2023, 02/14/2023, 05/25/2022, Additional history exists Imm-Influenza (#1) 2024 12/27/2023, 0 05/08/2023, 02/04/2023, Additional history exists Depression Monitoring 01/29/2025 10/29/2024 , 08/19/2024, 10/25/2023, Additional history exists Hemoglobin A1c 03/11/2025 12/10/2024, 08/08, 04/24/2024, Additional history exists Imm-Hepatitis A (2 of 2 - Ri sk 2-dose series) 05/01/2025 10/29/2024 EGD (Upper Endoscopy) 08/08/2025 08/08/2022 Lipid Screening 08/19/2025 08/19/2024, 04/11, 12/23/2015 Urine Albumin Creatinine Rat io Screening 08/19/2025 08/19/2024, 07/26/2023 Diabetes Foot Exam 10/29/2025 10/29/2024 (M anaged by Outside Provider), 10/25/2023 Falls Prevention 10/29/2025 10/29/2024, 10/25/2023 TSH Monitoring 10/29/2025 10/29/2024, 10/08, 08/08/2022 Tobacco Screening 10/29/2025 10/29/2024, 08/25/2023 Dental Examination 11/27/2025 11/25/2024 Serum Creatinine 12/10/2025 12/10/2024, , 10/25/2023, Additional history exists Dental FMX/Pano 11/27/2029 11/25/2024 Imm-DTaP/Tdap/Td (3 - Td or Tdap) 10/29/2034 10/29/2024, 05/12/2014, 11/10/2010, Additional history exists Imm-Pneumococcal 50+ Completed 05/12/2014, 11/10/2010, 05/20/2004 Imm-Zoster, Recombinant Completed 12/09/19, 09/15/2021, 10/16/2012 Bone Density Screening Completed 11/22/2022 Retinopathy Screening Discontinued 04/24/2024, 025 Alcohol and Drug Screen Completed 05/06/19, 05/08/2023, 05/08/2023, Additional history exists Procedures Procedure Name Priority Date/Time Associated Diagnosis Comments HEMOGLOBIN GLYCOSYLATED A1C Routine 12/10/2024 11:10 AM EDT Type 2 diabetes mellitus with diabetic peripheral angiopathy without gangrene, with long-term current use of insulin ([facility]) COMPREHENSIVE METABOLIC PANEL Routine 12/10/2024 11:10 AM EDT Type 2 diabetes mellitus with diabetic peripheral angiopathy without gangrene, with long-term current use of insulin ([facility]) Essential hypertension DENTAL CASE MANAGEMENT - MOTIVATIONAL INTV Routine 11/25/2024 1:00 PM EDT Complete edentulism, unspecified edentulism class PANORAMIC RADIOGRAPHIC IMAGE Routine 11/25/2024 1:00 PM EDT Complete edentulism, unspecified edentulism class COMP ORAL EVALUATION - NEW/ESTABLISHED PATIENT Routine 11/25/2024 1:00 PM EDT Encounter for dental examination CARIES RISK ASSESSMENT & DOC FINDING LOW RISK Routine 11/25/2024 1:00 PM EDT Complete edentulism, unspecified edentulism class NUTRITIONAL COUNSELING CONTROL OF DENTAL DISEASE Routine 11/25/2024 1:00 PM EDT Complete edentulism, unspecified edentulism class ORAL HYGIENE INSTRUCTIONS Routine 11/25/2024 1:00 PM EDT Complete edentulism, unspecified edentulism class ORAL CANCER SCREENING Routine 11/25/2024 1:00 PM EDT Complete edentulism, unspecified edentulism class CASE PRESENTATION SUBS DTL & EXTENSIVE TX PLN Routine 11/25/2024 1:00 PM EDT Complete edentulism, unspecified edentulism class Max COMPLETE DENTURE - WISDOM (NON BILLABLE) Routine 11/25/2024 12:00 AM EDT REFERRAL SCANNED DOCUMENT 10/31/2024 3:00 AM EDT THYROID PANEL WITH TSH Routine 10/29/2024 11:57 AM EDT Routine adult health maintenance CREATININE BLOOD Routine 10/29/2024 11:5 7 AM EDT Type 2 diabetes mellitus with diabetic peripheral angiopathy without gangrene, with long-term current use of insulin ([facility]) Routine adult health maintenance REFERRAL SCANNED DOCUMENT 10/28/2024 3:00 AM EDT OTHER ORDERS SCANNED DOCUMENT 10/28/2024 3:00 AM EDT OTHER ORDERS SCANNED DOCUMENT 10/28/2024 3:00 AM EDT OTHER ORDERS SCANNED DOCUMENT 10/15/2024 3:00 AM EDT OTHER ORDERS SCANNED DOCUMENT 10/15/2024 3:00 AM EDT IMAGING SCANNED DOCUMENT 10/08/2024 3:00 AM EDT IMAGING SCANNED DOCUMENT 10/08/2024 3:00 AM EDT IMAGING SCANNED DOCUMENT 09/19/2024 3:00 AM EDT OTHER ORDERS SCANNED DOCUMENT 09/19/2024 3:00 AM EDT OTHER ORDERS SCANNED DOCUMENT 09/19/2024 3:00 AM EDT LIPID PANEL Routine 08/19/2024 9:25 AM EDT Type 2 diabetes mellitus with diabetic peripheral angiopathy without gangrene, with long-term current use of insulin ([facility]) Hyperlipidemia LDL goal <70 MICROALBUMIN/CREATINI NE RATIO, URINE, RANDOM Routine 08/19/2024 9:25 AM EDT Type 2 diabetes mellitus with diabetic peripheral angiopathy without gangrene, with long-term current use of insulin ([facility]) EYE EXAM 04/24/2024 3:00 AM EST HISTORIC DEXA SCAN 11/22/2022 3: 00 AM EDT US ABDOMEN ULTRASOUND Routine 10/21/2022 3:00 AM EDT Abdominal pain, unspecified abdominal location UPPER GI ENDOSCOPY Routine 08/08/2022 11 :41 AM EDT Varices of esophagus determined by endoscopy ([facility]) from Last 3 Months or Most Recently Relevant to Health Maintenance Results * (ABNORMAL) HEMOGLOBIN GLYCOSYLATED A1C Routine (12/10/2024 11:10 AM EDT) HEMOGLOBIN A1C 9.3(H) <5.7 % 12/11/2024 6:15 AM EDT [facility] Blood Blood / Unknown 12/10/2024 1 1:10 AM EDT 12/11/2024 3:45 AM EDT Narrative [facility] - 12/11/2024 6:31 AM EDT FASTING:NO For someone without known diabetes, a hemoglobin A1c value of 6.5% or greater indicates that they may have diabetes and this should be confirmed with a follow-up test. . For someone with known diabetes, a value <7% indicates that their diabetes is well controlled and a value greater than or equal to 7% indicates suboptimal control. A1c targets should be individualized based on duration of diabetes, age, comorbid conditions, and other considerations. . Currently, no consensus exists regarding use of hemoglobin A1c for diagnosis of diabetes for children. . us Darwin Encinas PharmD LAB - BLOOD DRAW Final Re sult [facility] [address] [place] [id number], [facility] [address] [place] [phone] * (ABNORMAL) COMPREHENSIVE METABOLIC PANEL Routine (12/10/2024 11:10 AM EDT) GLUCOSE 194(H) 65 - 139 mg/dL 12/11/2024 8:29 AM EDT [facility] UREA NITROGEN (BUN) 13 7 - 25 mg/dL 12/11/2024 8:29 AM [employer] [facility] CREATININE (blood) 0.93 0.60 - 0.95 mg/dL 12/11/2024 8:29 AM [employer] [facility] EGFR 62 > OR = 60 mL/min/1. 73m2 12/11/2024 8:29 AM [employer] [facility] BUN/CREATININE RATIO SEE NOTE: 6 - 22 (calc) 12/11/2024 8:29 AM [employer] [facility] SODIUM 140 135 - 146 mmol/L 12/11/2024 8:29 AM [employer] [facility] POTASSIUM 4.3 3.5 - 5.3 mmol/L 12/11/2024 8:29 AM [employer] [facility] CHLORIDE 102 98 - 110 mmol/L 12/11/2024 8:29 AM [employer] [facility] CARBON DIOXIDE 31 20 - 32 mmol/L 12/11/2024 8:29 AM [employer] [facility] CALCIUM 9.0 8.6 - 10.4 mg/dL 12/11/2024 8:29 AM [employer] [facility] PROTEIN, TOTAL 6.6 6.1 - 8.1 g/dL 12/11/2024 8:29 AM [employer] [facility] ALBUMIN 4.0 3.6 - 5.1 g/dL 12/11/2024 8:29 AM [employer] [facility] GLOBULIN 2.6 1.9 - 3.7 g/dL (calc) 12/11/2024 8:29 AM [employer] [facility] ALBUMIN/GLOBULI N RATIO 1.5 1.0 - 2.5 (calc) 12/11/2024 8:29 AM [employer] [facility] BILIRUBIN, TOTAL 0.5 0.2 - 1.2 mg/dL 12/11/2024 8:29 AM [employer] [facility] ALKALINE PHOSPHATASE 112 37 - 153 U/L 12/11/2024 8:29 AM [employer] [facility] AST 17 10 - 35 U/L 12/11/2024 8:29 AM [employer] [facility] ALT 14 6 - 29 U/L 12/11/2024 8:29 AM [employer] [facility] Blood Blood / Unknown 12/10/2024 1 1:10 AM EDT 12/11/2024 5:42 AM EDT Narrative [employer] [facility] - 12/11/2024 8:33 AM EDT FASTING:NO . Non-fasting reference interval . Not Reported: BUN and Creatinine are within reference range. . us Darwin Encinas PharmD LAB - BLOOD DRAW Final Re sult Performing Organization Address [facility]/ZIP Co de Phone Number [employer] [address] [address], [employer] [address] [address] * REFERRAL SCANNED DOCUMENT (10/31/2024 3:00 AM EDT) Only the most recent of2 resultswithin the time period is included. 10/31/2024 3:00 AM EDT us Massimo PACHECO SCAN REFERRAL Final Result * THYROID PANEL WITH TSH Routine (10/29/2024 11:57 AM EDT) TSH 3.19 0.40 - 4.50 mIU/L [employer] [place] [employer] T-3 UPTAKE 28 22 - 35 % NXTM [employer] [place] T-4 (THYROXINE), TOTAL 8.2 5.1 - 11.9 mcg/dL [employer] [place] [employer] FREE T4 INDEX (T7) 2.3 1.4 - 3.8 [employer] [facility] Blood Blood / Unknown 10/29/2024 1 1:57 AM EDT 10/29/2024 11:59 AM EDT Massimo PACHECO LAB - BLOOD DRAW Final Result Performing Organization Address City/[facility]/ZIP Co de Phone Number [employer] [address] [address], [employer] [address] [address] * CREATININE BLOOD Routine (10/29/2024 11:57 AM EDT) CREATININE (blood) 0.90 0.60 - 0.95 mg/dL [employer] [facility] EGFR 65 > OR = 60 mL/min/1.7 3m2 [employer] [facility] Blood Blood / Unknown 10/29/2024 1 1:57 AM EDT 10/29/2024 11:59 AM EDT us Massimo PACHECO LAB - BLOOD DRAW Final Result [employer] [facility] [address] [address], [employer] [facility] [address] [place] [address] * OTHER ORDERS SCANNED DOCUMENT (10/28/2024 3:00 AM EDT) Only the most recent of6 resultswithin the time period is included. 10/28/2024 3:00 AM EDT us Massimo PACHECO SCAN OTHER ORDERS Final Result * IMAGING SCANNED DOCUMENT (10/08/2024 3:00 AM EDT) Only the most recent of3 resultswithin the time period is included. 10/08/2024 3:00 AM EDT us Massimo PACHECO SCAN IMAGING Final Result * MICROALBUMIN/CREATININE RATIO, URINE, RANDOM (08/19/2024 9:25 AM EDT) CREATININE, RANDOM URINE 109 20 - 275 mg/dL [employer] [facility] MICROALBUMIN 2.0 mg/dL [employer] [facility] Comment: Reference Range Not established MICROALBUMIN/CREA TININE RATIO, RANDOM URINE 18 <30 mg/g creat [employer] [facility] Comment: The ADA defines abnormalities [...] AM EDT 08/19/2024 9:25 AM EDT Narrative [employer] [facility] - 08/20/2024 9:19 PM EDT FASTING:YES us Darwin Encinas PharmD LAB URINE AMBULATORY Rubi l Result Performing Organization Address [facility]/ZIP Co de Phone Number [employer] [facility] [address] [address], [employer] [address] [address] * LIPID PANEL (08/19/2024 9:25 AM EDT) CHOLESTEROL, TOTAL 155 <200 mg/dL [employer] [facility] HDL CHOLESTEROL 57 > OR = 50 mg/dL [employer] [facility] TRIGLYCERIDES 97 <150 mg/dL [employer] [facility] LDL-CHOLESTEROL 80 99 mg/dL (calc) [employer] [facility] Comment: Reference range: <100 Desirable range <100 mg/dL for primary prevention; <70 mg/dL for patients with CHD or diabetic patients with > or = 2 CHD risk factors. LDL-C is now calculated using the Gilles-Olga calculation, which is a validated novel method providing better accuracy than the Friedewald equation in the estimation of LDL-C. Gilles SS et al. JESUS. 2013;310(19): 9105-9776 (http://education.[employer]/faq/JDM868) CHOL/HDLC RATIO 2.7 <5.0 (calc) [employer] [facility] NON-HDL CHOLESTEROL 98 <130 mg/dL (calc) [employer] [facility] Comment: For patients with diabetes plus 1 major ASCVD risk factor, treating to a non-HDL-C goal of <100 mg/dL (LDL-C of <70 mg/dL) is considered a therapeutic option. Blood Blood / Unknown 08/19/2024 9 :25 AM EDT 08/19/2024 9:25 AM EDT Narrative [employer] [facility] - 08/20/2024 9:19 PM EDT FASTING:YES us Darwin Encinas PharmD LAB - BLOOD DRAW Final Re sult [facility] [address] [address], [facility] [address] [place] [address] * EYE EXAM (04/24/2024 3:00 AM EST) 04/24/2024 3:00 AM EST us Massimo PACHECO OTHER Edited Result - Final * HISTORIC DEXA SCAN (11/22/2022 3:00 AM EDT) 11/22/2022 3:00 AM EDT us Massimo PACHECO IMG DXA Final Result * US ABDOMEN ULTRASOUND (CAPE COD) (10/21/2022 3:00 AM EDT) 10/21/2022 3:00 AM EDT us Massimo PACHECO IMG ULTRASOUND Edited Result - Final from Last 3 Months or Most Recently Relevant to Health Maintenance Insurance [facility] Care Teams 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
== END 2024-12-11 15:16 | disposition home or self-care (01) ==
LOC: HO.HNS 13:43
PROVIDERS: PCP Physician Assistant; Visit Provider Physician Assistant
DX: Z98.1 Arthrodesis status (principal)
CPT/HCPCS: 99024

== ENCOUNTER → 2024-12-11 14:10 | Outpatient (BNV) | payer OTHER, SELFPAY | PROVIDERS: Visit Provider Radiology Body Imaging | DX: M43.12 Spondylolisthesis, cervical region (principal) | CPT/HCPCS: 72050 ==

== ENCOUNTER 2024-12-11 15:12 | Outpatient (REF) | payer OTHER, SELFPAY ==
--- NOTE | ~2024-12-11 | XR_ITS ---
EXAMINATION: XR CERVICAL SPINE CLINICAL INFORMATION: Z98.1 - Arthrodesis status COMPARISON: Radiographs on May 01, 2024 TECHNIQUE: 4 views of the cervical spine were obtained. FINDINGS: Pre-existing surgical hardware at C3-C4. Newly placed surgical hardware at C4-C5 and C5-C6. Reversal of the cervical lordosis. Minimal anterolisthesis of C3 on C4 is stable on neutral, extension and flexion positions. Minimal anterolisthesis of C4 on C5 with flexion. Mild anterolisthesis of C5 on C6 with flexion and extension. Prevertebral soft tissues are unremarkable. XR/XR cervical spine 4V IMPRESSION: Status post arthrodesis. Mild anterolisthesis at few levels as described above. Electronically signed by: Jose Pickett MD 12/11/2024 03:33 PM EDT
== END 2024-12-11 15:13 | disposition home or self-care (01) ==
LOC: HO.HOSX 15:12
PROVIDERS: Visit Provider Physician Assistant
DX: Z47.89 Encounter for other orthopedic aftercare (principal); Z98.1 Arthrodesis status
CPT/HCPCS: 72050; 99212

== ENCOUNTER 2025-01-13 13:17 | Outpatient (AMB) | payer OTHER, SELFPAY ==
--- OUTSIDE RECORDS SUMMARY | 2015-12-21 | XMS_ITS | Encounter Summary ---
Author Organization [facility] Address [address] [place] [phone] Phone Care Team Providers Care Operating Room Aide Name Role Phone Florinda Nino MD Primary Care Provider Encounter Details Date Type Department Care Team (Late st Contact Info) Description 12/21/2015 Hospital Encounter [facility] Imaging [address] [place] [address] Del Sloan MD [address] [place] [phone] Social History Tobacco Use Types Packs/Day Years [...] AM EDT) 12/21/2015 9:17 PM EDT Impressions [facility] [place] [facility] - 12/21/2015 10:21 PM EDT IMPRESSION: No evidence of pneumonia or pulmonary edema. This report is limited to the body part and modality requested, regardless of which images were uploaded. If additional reports are required, please contact the appropriate Division of the Radiology Department. Narrative [facility] [place] - 12/21/2015 [...] OUTSIDE IMAGING W/ I NTERPRETATION Final Result [facility] [address] [place] [address] documented in this encounter Visit Diagnoses Not on filedocumented in this encounter Care Teams Operating Room Aide Relationship Specialty Start Date End Date Florinda Nino MD [address] [place] [phone] PCP - General Family Medicine 12/21/15 documented as of this encounter Additional Source Comments The information contained in this document represents components of the legal health record. It is not the complete legal health record.[facility]
--- OUTSIDE RECORDS SUMMARY | 2015-12-21 00:15 | XMS_ITS | Encounter Summary ---
Author Organization [facility] Address [address] [place] [address] Phone Care Team Providers Care Screen Printing Inspector Name Role Phone Florinda Nino MD Primary Care Provider Encounter Details Date Type Department Care Team (Late st Contact Info) Description 12/21/2015 12:15 AM EDT [facility] [address] [place] [address] Del Sloan MD [address] [place] [address] Social History Tobacco Use Types Packs/Day Years [...] AM EDT) 12/22/2015 8:35 AM EDT Impressions [facility] - 12/22/2015 11:02 AM EDT IMPRESSION: Extensive bilateral pulmonary emboli, with evidence of right ventricular strain. No evidence of pneumonia, pulmonary edema, or pulmonary infarct. This report is limited to the body part and modality requested, regardless of which images were uploaded. If additional reports are required, please contact the appropriate Division of the Radiology Department. Narrative [facility] - 12/22/2015 11:02 AM EDT EXAM: [...] I NTERPRETATION Final Result Performing Organization Address City/State/[facility] Co de Phone Number [facility] [address] [facility] [place] [address] documented in this encounter Visit Diagnoses Not on filedocumented in this encounter Care Teams Screen Printing Inspector Relationship Specialty Start Date End Date Florinda Nino MD [address] [place] [phone] PCP - General Family Medicine 12/21/15 documented as of this encounter Additional Source Comments The information contained in this document represents components of the legal health record. It is not the complete legal health record.[facility]
--- OUTSIDE RECORDS SUMMARY | 2023-09-18 06:00 | XMS_ITS ---
Author Organization [facility] Address [address] [place] [phone] Care Team Providers Care City Letter Carrier Name Role Phone RICKY GARZA, DAISY Primary Care Provider Amor Gutierrez Jr Unavailable [phone] REASON FOR VISIT Patient presents today for intestinal issues Encounters Encounter Location Date Provider Diagnosis [facility] [address] [place] [phone] 09/18/2023 Amor Dobbins Jr Plan Of Treatment No Information Progress Notes * TOMMY CHOU EDOB:1945 (79 yo F)Acc No.[id number]:09/18/2023 Progress Notes Patient: TOMMY MICHELLE Provider: Francie Dobbins MD :1945 A ge:78 Y S ex:Female Date:09/18/2023 Address:[address] [place], [place] [phone] Pcp:Jake GALEANO Subjective: * Chief Complaints: * [...] Dobbins MD Date: 0 09/18/2023 Generated for Printi ng/Famatildeg/eTransmitting on: 1 03:44 PM EDT
--- OUTSIDE RECORDS SUMMARY | 2024-01-17 07:20 | XMS_ITS ---
Author Organization [facility] Address [address] [place] [phone] Care Team Providers Care Generation Manager Name Role Phone RICKY GARZA, DAISY Primary Care Provider Amor Gutierrez Jr REASON FOR VISIT INTESTINAL ISSUES Encounters Encounter Location Date Provider Diagnosis [facility] [address] [facility] [address] [place] [phone] 01/17/2024 Amor Dobbins Jr Plan Of Treatment No Information Progress Notes * TOMMY CHOU EDOB:1945 (79 yo F)Acc No.[id number]:01/17/2024 Progress Notes Patient: TOMMY MICHELLE Provider: Francie Dobbins MD :1945 A ge:78 Y S ex:Female Date:01/17/2024 Address:[address] [place], [place] [phone] Pcp:Jake GALEANO Subjective: * Chief Complaints: * [...] Francie Dobbins MD Date: Generated for Printi ng/Faxing/eTransmitting on: 03:43 PM EDT
--- NOTE | 2025-01-13 13:21 | A.SPINEOV_ITS ---
Intake Visit Reasons: 1 month follow up with Xrays Intake Note: Ms. Corea is here today for a 1 month f/u w/x-rays except she had an MRI on Monday01/10/25 @ [facility] Concentrator Operator Required: No Allergies bee pollen (bee stings) Allergy (Severe, Verified 10/08/24 12:18) Anaphylaxis lidocaine (From LIDODERM) Allergy (Severe, Verified 10/08/24 12:18) BLISTERS from adhesive morphine (MORPHINE) Allergy (Severe, Verified 10/08/24 12:18) PO will cause itching, can tolerate IV Penicillins (PENICILLINS) Allergy (Severe, Verified 10/08/24 12:18) SWELLING/ITCHING ampicillin Allergy (Intermediate, Verified 10/08/24 12:18) rash/hives gabapentin (GABAPENTIN) Allergy (Intermediate, Verified 10/08/24 12:18) SORES IN MOUTH/AGITATION enalapril Adverse Reaction (Severe, Verified 10/08/24 12:18) hyperkalemia Assessment & Plan Assessment & Plan (1) S/P cervical spinal fusion: Code(s): Z98.1 - Arthrodesis status Category: Medical Plan Mrs Corea is back in follow-up. She continues to have posterior cervical neck pain since the surgery. She manages it with oxycodone and Motrin. Her daughter is here today to help me with Ukrainian. 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 Her x-rays today show that she still has subsidence of the implants, but I do not believe the positions have changed since last month with no alterations with flexion or extension. I showed the patient's daughter the films and explained to her that the patient's bone quality is suboptimal. If the symptoms are manageable, maybe it as best that we just leave things the way they are and hopefully it gets better over time. I will review the x-rays with Dr. Fernando and see if he has any other thoughts. Total amount of time spent in this visit was 20 minutes in discussion of symptoms, xray imaging results and subsequent plan of care Octaviano Fernando MD,PhD [facility] Orders: Orders XR cervical spine 4V Today Z98.1 - Arthrodesis status Coding Level of Care Code Est Pt Level 3 (06480) Diagnoses S/P cervical spinal fusion Z98.1
--- OUTSIDE RECORDS SUMMARY | 2025-01-13 15:44 | XMS_ITS | Clinical Summary ---
Author Organization [facility] Address [address] [place] [address] Care Team Providers Care Secy Name Role Phone Massimo Mcclellan Primary Care Provider [phone] Source Comments PLEASE NOTE, if this patient [...] neurological complication associated with type 2 diabetes mellitus,Fibromy algia,Osteoarthr itis, unspecified osteoarthritis type, unspecified site Take 2 Tablets by mouth every 6 (six) hours as needed for pain 60 Tablet 2 2023 Active naloxone (NARCAN) 4 mg/actuation nasal spray Place 1 [place] into the nostril(s) as needed for opioid reversal (Overdose) 2 Each 2023 Active diaper,brief,jarret lt,disposableInd ications:Urinary incontinence without sensory awareness Use one large brief up to 3 times daily. 120 Each 2023 Active nut.tx.gluc.into l,lac-free,soy (GLUCERNA ADVANCE) liqdIndications: Primary hypertension,Hyp ercholesterolemi a,Type 2 diabetes mellitus without complication, with long-term current use of insulin,Urinary incontinence without sensory awareness,Seizur e disorder,Moderat e vascular dementia, unspecified whether behavioral, psychotic, or mood disturbance or anxiety,Oxygen dependent,Hyperp arathyroidism,Es ophageal varices without bleeding, unspecified esophageal varices type,Cirrhosis of liver without ascites, unspecified hepatic cirrhosis type,Peripheral venous insufficiency,Os teopenia, unspecified location,Iron deficiency Take 1 Can by mouth 2 (two) times a day 237 mL 2023 Active triamcinolone (KENALOG) 0.025 % cream [facility]/pharmacy #[address] [place] [address] 60 g 0 Days Supply: 10Sig: APLIQUE AL JACOBO AFECTADA TOPICALLY DOS VECES AL D A POR 10 D ASSource: 2 Outside SourcesAuthorized by: THO HERNANDEZ 2023 Active montelukast (SINGULAIR) 10 mg tablet Take 1 Tablet by mouth nightly at bedtime (Prescribed by drying supervisor Dr. Berkowitz) 2023 Active apixaban (ELIQUIS) 5 mg tab Take 1 Tablet by mouth 2 (two) times Daily (Prescribed by drying supervisor - Dr. Michael Berkowitz) 2023 Active glucose 4 gram chewable tabletIndication s:Type 2 diabetes mellitus with diabetic peripheral angiopathy without gangrene, with long-term current use of insulin Place 4 Tablets into mouth, chew and swallow as needed for low blood sugar (Less than 90 mg/dL) 30 Tablet 5 2024 Active escitalopram (LEXAPRO) 20 mg tablet TOME 1 TABLETA POR VIA ORAL TODOS LOS DHZ 90 Tablet 1 2024 Active isosorbide mononitrate [...] gangrene, with long-term current use of insulin Inject 0-16 Units into the skin 3 [...] BEFORE DINNER 90 Tablet 1 2024 Active blood sugar diagnostic stripsIndication s:Type 2 diabetes mellitus with diabetic nephropathy, with long-term current use of insulin,Type 2 diabetes mellitus with diabetic peripheral angiopathy without gangrene, with long-term current use of insulin Use to test blood glucose three times daily. (Freestyle Lite). 100 Each 11 29/ 2025 Active lancets (FREESTYLE LANCETS) 28 gaugeIndications :Type 2 diabetes mellitus with diabetic nephropathy, with long-term current use of insulin,Type 2 diabetes mellitus with diabetic peripheral angiopathy without gangrene, with long-term current use of insulin Use to test blood glucose three times daily. (Freestyle Lancets). 100 Each 2024 Active alcohol swabsIndications :Type 2 diabetes mellitus with diabetic nephropathy, with long-term current use of insulin,Type 2 diabetes mellitus with diabetic peripheral angiopathy without gangrene, with long-term current use of insulin Use to test blood glucose three times daily.. 100 Each 2024 Active pen needle, diabetic 31 gauge x 16 ndleIndications: Type 2 diabetes mellitus with diabetic peripheral angiopathy without gangrene, with long-term current use of insulin Use to inject insulin up to 4 [...] without gangrene, with long-term current use of insulin,Hyperlip idemia LDL goal <70 Take 1 Tablet by mouth nightly at bedtime For cholesterol. 90 Tablet 1 2024 Active insulin degludec (TRESIBA FLEXTOUCH U-200) 200 unit/mL (3 mL)Indications:T ype 2 diabetes mellitus with diabetic peripheral angiopathy without gangrene, with long-term current use of insulin Inject 18 Units into the skin nightly at bedtime Increased dosing. 9 mL 5 2024 Active glucagon (BAQSIMI) 3 mg/actuation spryIndications: Type 2 diabetes mellitus with diabetic peripheral angiopathy without gangrene, with long-term current use of insulin Administer 3 mg (one actuation) into a single nostril if glucose is less than 54 mg/dL; if no response, may repeat in 15 minutes using a new intranasal device.. 2 Each 1 2024 Active esomeprazole (NEXIUM) [address] capsule TOME GAGE CAPSULA TODOS LOS HDZ EN LA MANANA ANTES DEL DESAYUNO 90 Capsule 2024 Active oxyCODONE (ROXICODONE) 10 mg tab tabletIndication s:Sciatica, unspecified laterality,Osteo arthritis, unspecified osteoarthritis type, unspecified site,Fibromyalgi a,Peripheral venous insufficiency,Ce rvical pain (neck),Myofascia l muscle pain Take 1 Tablet by mouth every 6 to 8 (six to eight) hours NEEDED FOR SEVERE PAIN!!. Max Daily Amount: 4 Tablets 120 Tablet 2024 Active memantine (NAMENDA) 5 mg tablet Take 1 Tablet by mouth 2 (two) times daily. 180 Tablet 2024 Active acetaminophen (TYLENOL 8 HOUR) 650 mg CR tabletIndication s:Routine adult health maintenance TOME GAGE TABLETA POR VIA ORAL CADA OCHO HORAS CUANDO SEA NECESARIO FOR PAIN 90 Tablet 1 2024 Active acetaminophen (TYLENOL 8 HOUR) 650 mg CR tabletIndication s:Routine adult health maintenance TOME GAGE TABLETA POR VIA ORAL CADA OCHO HORAS CUANDO SEA NECESARIO FOR PAIN 90 Tablet 1 01/02 Discontinued oxyCODONE (ROXICODONE) 10 mg tab tabletIndication s:Sciatica, unspecified laterality,Osteo arthritis, unspecified osteoarthritis type, unspecified site,Fibromyalgi a,Peripheral venous insufficiency,Ce rvical pain (neck),Myofascia l muscle pain Take 1 Tablet by mouth every 6 to 8 (six to eight) hours NEEDED FOR SEVERE PAIN!!. Max Daily Amount: 4 Tablets 120 Tablet 12/18 Discontinued( Reorder (E-Cancel Not Sent)) Active Problems [...] syndrome 08/08/2022 08/09/19 23 Overview (08/28/2024): 08/19/24 [facility] pain management Plan recommend surgical intervention at [...] focusing on reducing falls. Diabetic peripheral angiopathy 08/08/2022 0 08/08/2022 Dry skin 08/08/2022 08/08/2022 Dysphagia 08/08/2022 08/08/2022 Incontinence of urine 08/08/2022 08/08/2022 Early onset Alzheimer's dementia 08/08/2022 08/08/2022 Epigastric pain 08/08/2022 08/08/2022 Left ventricular hypertrophy 08/08/202204/2022 Overview (03/05/2024): 12/20/23 at [facility] Cardio Chest pain Improved with Imdur; [...] may be normal for the patient's age. 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 left catarct surgery on 08/28/08 by SURGEON: Tana Coronado M.D. CKD (chronic kidney disease) stage 3, GFR 30-59 ml/min 11/07/2017 08/08/2022 Meniere disease 11/07/2017 08/08/2022 Overview (08/08/2022): 2016 Dr Baker Pulmonary hypertension 11/07/2017 Overview (08/08/2022): b/l submassive PE diagnosed on Dec 20 in [facility] b/l submassive PE diagnosed on Dec 20 in [facility] 2016 DAVID RVSP- 46 Tubular adenoma of colon 11/07/2017 023 Overview (08/08/2022): 2005 Hyperparathyroidism 08/29/2017 08/08/2022 Overview (08/08/2022): Right lower parathyroidectomy. 06/16/08 SURGEON: Danny Marie M.D. TRUCKING MANAGER: Naima Bowling M.D. Kidney stone 08/29/2017 08/08/2022 Hyperlipidemia LDL goal <70 08/29/2017 05/0 04/2022 Essential hypertension 08/29/2017 Seizure disorder 08/29/2017 08/08/2022 Overview (08/08/2022): Not on medication Viral hepatitis C 08/29/2017 08/08/2022 Osteoarthrosis 08/23/2017 08/08/2022 Overview (08/08/2022): EGD on 06/24/16 by GI, Dr Damien Dobbins w gastritis and esophageal varices grade 1 Lumbar spine Allergic rhinitis 08/23/2017 08/08/2022 Depression 08/23/2017 08/08/2022 Asthma-chronic obstructive p ulmonary disease overlap syndrome 08/23/2017 08/08/2022 Type 2 diabetes mellitus wit h diabetic peripheral angiopathy without gangrene, with long-term current use of insulin 08/23/2017 08/08/2022 Overview (11/13/2024): DM dx: 51 [...] (11/10/10, 05/20/04) Diabetes foot exam: 10/29/24 at [facility] Educated on importance of keeping tight glucose control, chances for ulceration infection amputation in future Pt suffering with arthritic change of the midfoot. Encouraged to use topical anti-inflammatory medication to help decrease flare-ups Encouraged to use supportive devices Nail debridement 1-5 bilaterally RTC 9 weeks 04/25/24 at [facility] - notes on file 02/21/24 at [facility] - notes on file Diabetes retinal [...] new glasses RX, optional F/U 1 year [facility] Endocrinology: 11/24/22 Start Tradjenta 5 mg [...] valve insufficiency 05/24/2017 Overview (03/05/2024): 12/20/23 at [facility] Cardio Chest pain Improved with Imdur; [...] test - no concern for ischemia Continue Norvas and Imdur CT coronary - no evidence [...] dysfunction 05/24/2017 08/08/2022 Overview (03/05/2024): 12/20/23 at [facility] Cardio Chest pain Improved with Imdur; [...] normal for the patient's age. Esophageal varices 06/24/2016 08/08/2022 Overview (08/08/2022): endoscopy 10/05/2018 w non bleeding grade 1 esophageal varicesEGD on 06/24/[address] Damien CARUSO gastritis and esophageal varices grade 1 06/2106 EGD, Grade 1 endoscopy 10/05/2018 w non bleeding grade 1 esophageal varicesEGD on 06/24/16 by GIDr Damien gastritis and esophageal varices grade 1 Right ventricular dilation 12/22/201508/08 Overview (08/08/2022): TTE 12/22/15 in [facility]: RV dilatation, RVSP 46 TTE 12/22/15 in [facility]: RV dilatation, RVSP 46 Anemia 12/21/2015 08/08/2022 Deep vein thrombosis (DVT) 12/21/201508/08 Overview (08/08/2022): LE US- DVT involving 2 of 2 peroneal veins diagnosed on Dec 20 [facility] LE US- DVT involving 2 of 2 peroneal veins diagnosed on Dec 20 [facility] Positive PPD 10/09/2014 08/08/2022 Overview (08/08/2022): [...] Peripheral venous insufficiency 10/31/2011 08/08/2022 Diabetic neuropathy 09/19/2007 08/08/2022 Sciatica 05/24/2004 08/08/2022 Tubular adenoma 04/10/2004 08/08/2022 Overview (08/08/2022): catherine colo July 2009 exc for 2 hyperplastic polypsColonoscopy 2004 at [facility] [place] per letter of Dr Amor Dobbins Tubular adenoma 04/10/2004 08/08/2022 Overview (08/08/2022): catherine colo July 2009 exc for 2 hyperplastic polypsColonoscopy 2005 at [facility] [place] per letter of Dr Amor Dobbins Resolved Problems Problem Noted Date Diagnosed Date Resolved Date Obesity 08/08/2022 08/08/2022 07/24/2024 Encounters Date Type Department Care Team Description 01/09/2025 Results Follow-Up [address] [phone] Kobi Robert FNP 12/17/2024 Results Follow-Up [address] [phone] Darwin Encinas, PharmD 11/25/2024 1:00 PM EDT Office Visit [address] [place] [phone] Wild Vickers DDS 11/13/2024 10:20 AM EDT Telemedicine Visit [facility] [address] [place] [phone] Darwin Encinas, PharmD 10/29/2024 10:40 AM EDT Office Visit [facility] [address] [place] [phone] Massimo Mcclellan PA Diaz, Wilma from Last [...] Description 01/30/2025 4:00 PM EDT Office Visit [facility] [address] [place] [phone] Massimo Mcclellan PA [address] [place] [address] Hillary Berkowitz [address] [place] [address] Health Maintenance Due Date Last Done Comments Urine Drug Screen 1945 Medicare Annual Wellness Visit 1962 Imm-RSV (adult) (1 - 1-dose 75+ series) 07/06/2019 Hepatocellular Carcinoma Scr eening (HCC) 04/23/2023 10/21/2022 Imm-Hepatitis B (2 of 2 - Cp G risk 2-dose series) 11/26/2024 10/29/2024 [id number] ( season) 2024 12/27/2023, 02/14/2023, 05/25/2022, Additional [...] Procedure Name Priority Date/Time Associated Diagnosis Comments MR BRAIN WO Routine 01/03/2025 3:00 AM EDT Memory impairment OTHER ORDERS SCANNED DOCUMENT 12/30/2024 3:00 AM EDT REFERRAL SCANNED DOCUMENT 12/11/2024 3:00 AM EDT HEMOGLOBIN GLYCOSYLATED A1C Routine 12/10/2024 11:10 AM EDT Type 2 diabetes mellitus with diabetic peripheral angiopathy without gangrene, with long-term current use of insulin ([facility]) COMPREHENSIVE METABOLIC PANEL Routine 12/10/2024 11:10 AM EDT Type 2 diabetes mellitus with diabetic peripheral angiopathy without gangrene, with long-term current use of insulin ([facility]) Essential hypertension DENTAL CASE MANAGEMENT - MOTIVATIONAL [...] gangrene, with long-term current use of insulin ([facility]) Routine adult health maintenance REFERRAL SCANNED DOCUMENT 10/28/2024 3:00 AM EDT OTHER ORDERS SCANNED DOCUMENT 10/28/2024 3:00 AM EDT OTHER ORDERS SCANNED DOCUMENT 10/28/2024 3:00 AM EDT OTHER ORDERS SCANNED DOCUMENT 10/15/2024 3:00 AM EDT OTHER ORDERS SCANNED DOCUMENT 10/15/2024 3:00 AM EDT LIPID PANEL Routine 08/19/2024 9:25 AM EDT Type 2 diabetes mellitus with diabetic peripheral angiopathy without gangrene, with long-term current use of insulin ([facility]) Hyperlipidemia LDL goal <70 MICROALBUMIN/CREATINI NE RATIO, URINE, RANDOM Routine 08/19/2024 9:25 AM EDT Type 2 diabetes mellitus with diabetic peripheral angiopathy without gangrene, with long-term current use of insulin ([facility]) EYE EXAM 04/24/2024 3:00 AM EST HISTORIC DEXA SCAN 11/22/2022 3: 00 AM EDT US ABDOMEN ULTRASOUND Routine 10/21/2022 3:00 AM EDT Abdominal pain, unspecified abdominal location UPPER GI ENDOSCOPY Routine 08/08/2022 11 :41 AM EDT Varices of esophagus determined by endoscopy ([facility]) from Last 3 Months or Most Recently Relevant to Health Maintenance Results * MR BRAIN WO (01/03/2025 3:00 AM EDT) 01/03/2025 3:00 AM EDT [facility] - 01/04/2025 11:03 AM EDT IMPRESSION: 1. No acute intracranial pathology seen. 2. Scattered innumerable nonspecific T2 hyperintense foci along the cerebral white matter, suggestive of advanced chronic microvascular ischemic or gliotic changes. 3. Generalized volume loss. 4. Cervical spondylotic changes with possible severe spinal canal stenosis at C5-C6 level partially evaluated on this exam. Postsurgical cervical fusion changes are also present. Correlate with dedicated MRI of cervical spine for further evaluation. Read by: Ericka Garcia M.D. Reviewed and Electronically Signed by: Ericka Garcia M.D. [facility] - 01/04/2025 11:03 AM EDT Original Report EXAM: MR BRAIN WITHOUT CONTRAST INDICATION: Amnesia TECHNIQUE: Multiplanar multisequence imaging of the brain was obtained, without intravenous contrast administration. COMPARISON: None. FINDINGS: There are no acute territorial infarcts seen within the brain on diffusion images. No midline shift, mass effect or hemorrhage seen. Ventricular system is slightly dilated most likely reflecting central volume loss. There is benign-appearing small midline septum cavum pellucidum. Craniocervical junction is preserved and the fourth ventricle is in the midline. Normal signal flow voids are present along the major intracranial arteries. Scattered innumerable nonspecific T2 hyperintense foci are present along the periventricular white matter, subcortical white matter, centrum semiovale and to lesser degree the brainstem, suggestive of chronic microvascular ischemic or gliotic changes. Generalized sulcal dilatation is present consistent with cortical atrophy. Sagittal images demonstrates postsurgical changes related to cervical fusion spanning from C3 through C5 levels. There is central disc osteophyte complex at C4-C5 and C5-C6 levels, indenting the ventral aspect of the cervical cord possibly resulting in moderate severe spinal canal stenosis. The calvarium is intact. Visualized orbits and region of the sella are preserved. Procedure Note Default, [facility] Provider - 01/04/2025 Original Report EXAM: MR BRAIN WITHOUT CONTRAST INDICATION: Amnesia TECHNIQUE: Multiplanar multisequence imaging of the brain was obtained, without intravenous contrast administration. COMPARISON: None. FINDINGS: There are no acute territorial infarcts seen within the brain on diffusion images. No midline shift, mass effect or hemorrhage seen. Ventricular system is slightly dilated most likely reflecting central volume loss. There is benign-appearing small midline septum cavum pellucidum. Craniocervical junction is preserved and the fourth ventricle is in the midline. Normal signal flow voids are present along the major intracranial arteries. Scattered innumerable nonspecific T2 hyperintense foci are present along the periventricular white matter, subcortical white matter, centrum semiovale and to lesser degree the brainstem, suggestive of chronic microvascular ischemic or gliotic changes. Generalized sulcal dilatation is present consistent with cortical atrophy. Sagittal images demonstrates postsurgical changes related to cervical fusion spanning from C3 through C5 levels. There is central disc osteophyte complex at C4-C5 and C5-C6 levels, indenting the ventral aspect of the cervical cord possibly resulting in moderate severe spinal canal stenosis. The calvarium is intact. Visualized orbits and region of the sella are preserved. IMPRESSION: IMPRESSION: 1. No acute intracranial pathology seen. 2. Scattered innumerable nonspecific T2 hyperintense foci along the cerebral white matter, suggestive of advanced chronic microvascular ischemic or gliotic changes. 3. Generalized volume loss. 4. Cervical spondylotic changes with possible severe spinal canal stenosis at C5-C6 level partially evaluated on this exam. Postsurgical cervical fusion changes are also present. Correlate with dedicated MRI of cervical spine for further evaluation. Read by: Ericka Garcia M.D. Reviewed and Electronically Signed by: Ericka Garcia M.D. Kobi Robert [facility] IMG MRI Edited Re sult - Final [facility] Corporate Office [address] [place], [address] [place] [address], [place] [phone] * OTHER ORDERS SCANNED DOCUMENT (12/30/2024 3:00 AM EDT) Only the most recent of5 resultswithin the time period is included. 12/30/2024 3:00 AM EDT Kobi Robert LACQUER DIPPING MACHINE OPERATOR SCAN OTHER ORDERS Final R esult * REFERRAL SCANNED DOCUMENT (12/11/2024 3:00 AM EDT) Only the most recent of3 resultswithin the time period is included. 12/11/2024 3:00 AM EDT Massimo Mcclellan PA SCAN REFERRAL Final Result * (ABNORMAL) HEMOGLOBIN GLYCOSYLATED A1C Routine (12/10/2024 11:10 AM EDT) HEMOGLOBIN A1C 9.3(H) <5.7 % 12/11/2024 6:15 AM EDT [facility] Blood Blood / Unknown 12/10/2024 1 1:10 AM EDT 12/11/2024 3:45 AM EDT Narrative [facility] - 12/11/2024 6:31 AM EDT FASTING:NO For [...] for diagnosis of diabetes for children. . Darwin SmallD LAB - BLOOD DRAW Final Re sult [facility] [address] [place] [id number], [facility] [address] [place] [phone] * (ABNORMAL) COMPREHENSIVE METABOLIC PANEL Routine (12/10/2024 11:10 AM EDT) GLUCOSE 194(H) 65 - 139 mg/dL 12/11/2024 8:29 AM EDT [facility] UREA NITROGEN (BUN) 13 7 - 25 mg/dL 12/11/2024 8:29 AM EDT [facility] CREATININE (blood) 0.93 0.60 - 0.95 mg/dL 12/11/2024 8:29 AM EDTV [facility] EGFR 62 > OR = 60 mL/min/1. 73m2 12/11/2024 8:29 AM [facility] BUN/CREATININE RATIO SEE NOTE: 6 - 22 (calc) 12/11/2024 8:29 AM [facility] SODIUM 140 135 - 146 mmol/L 12/11/2024 8:29 AM [facility] POTASSIUM 4.3 3.5 - 5.3 mmol/L 12/11/2024 8:29 AM [facility] CHLORIDE 102 98 - 110 mmol/L 12/11/2024 8:29 AM [facility] CARBON DIOXIDE 31 20 - 32 mmol/L 12/11/2024 8:29 AM [facility] CALCIUM 9.0 8.6 - 10.4 mg/dL 12/11/2024 8:29 AM [facility] PROTEIN, TOTAL 6.6 6.1 - 8.1 g/dL 12/11/2024 8:29 AM [facility] ALBUMIN 4.0 3.6 - 5.1 g/dL 12/11/2024 8:29 AM [facility] GLOBULIN 2.6 1.9 - 3.7 g/dL (calc) 12/11/2024 8:29 AM [facility] ALBUMIN/GLOBULI N RATIO 1.5 1.0 - 2.5 (calc) 12/11/2024 8:29 AM [facility] BILIRUBIN, TOTAL 0.5 0.2 - 1.2 mg/dL 12/11/2024 8:29 AM [facility] ALKALINE PHOSPHATASE 112 37 - 153 U/L 12/11/2024 8:29 AM [facility] AST 17 10 - 35 U/L 12/11/2024 8:29 AM [facility] ALT 14 6 - 29 U/L 12/11/2024 8:29 AM [facility] Blood Blood / Unknown 12/10/2024 1 1:10 AM EDT 12/11/2024 5:42 AM EDT Narrative [facility] - 12/11/2024 8:33 AM EDT FASTING:NO . Non-fasting reference interval . Not Reported: BUN and Creatinine are within reference range. . us Darwin Encinas PharmD LAB - BLOOD DRAW Final Re sult Performing Organization Address [facility] Co de Phone Number [email or web address] [address] [address], [email or web address] [address] [phone] * THYROID PANEL WITH TSH Routine (10/29/2024 11:57 AM EDT) TSH 3.19 0.40 - 4.50 mIU/L [email or web address] T-3 UPTAKE 28 22 - 35 % [employer] [employer] T-4 (THYROXINE), TOTAL 8.2 5.1 - 11.9 mcg/dL [email or web address] FREE T4 INDEX (T7) 2.3 1.4 - 3.8 [facility]NOSTI [facility] Blood Blood / Unknown 10/29/2024 1 1:57 AM EDT 10/29/2024 11:59 AM EDT us Massimo PACHECO LAB - BLOOD DRAW Final Result Performing Organization Address [facility] Co de Phone Number [email or web address] [address] [address], [email or web address] [address] [phone] * CREATININE BLOOD Routine (10/29/2024 11:57 AM EDT) CREATININE (blood) 0.90 0.60 - 0.95 mg/dL [email or web address] EGFR 65 > OR = 60 mL/min/1.7 3m2 [email or web address] Blood Blood / Unknown 10/29/2024 1 1:57 AM EDT 10/29/2024 11:59 AM EDT us Massimo PACHECO LAB - BLOOD DRAW Final Result Performing Organization Address [facility] Co de Phone Number [email or web address] [address] [address], [email or web address] [address] [phone] * MICROALBUMIN/CREATININE RATIO, URINE, RANDOM (08/19/2024 9:25 AM EDT) CREATININE, RANDOM URINE 109 20 - 275 mg/dL [email or web address] MICROALBUMIN 2.0 mg/dL [employer] [facility] Comment: Reference Range Not established MICROALBUMIN/CREA TININE RATIO, RANDOM URINE 18 <30 mg/g creat [email or web address] Comment: The ADA defines abnormalities [...] AM EDT 08/19/2024 9:25 AM EDT Narrative [facility] - 08/20/2024 9:19 PM EDT FASTING:YES us Darwin Encinas PharmD LAB URINE AMBULATORY Rubi l Result [facility] [address] [address], [email or web address] [address] [phone] * LIPID PANEL (08/19/2024 9:25 AM EDT) CHOLESTEROL, TOTAL 155 <200 mg/dL [email or web address] HDL CHOLESTEROL 57 > OR = 50 mg/dL [email or web address] TRIGLYCERIDES 97 <150 mg/dL [email or web address] LDL-CHOLESTEROL 80 99 mg/dL (calc) [email or web address] Comment: Reference range: <100 Desirable range <100 mg/dL for primary prevention; <70 mg/dL for patients with CHD or diabetic patients with > or = 2 CHD risk factors. LDL-C is now calculated using the Alvarez calculation, which is a validated novel method providing better accuracy than the Friedewald equation in the estimation of LDL-C. Gilles SPENCER et al. JESUS. 2013;310(19): 4613-3628 (http://education.Helpmycash.Voltea/faq/QQD308) CHOL/HDLC RATIO 2.7 <5.0 (calc) [facility] NON-HDL CHOLESTEROL 98 <130 mg/dL (calc) [facility] Comment: For patients with diabetes plus 1 major ASCVD risk factor, treating to a non-HDL-C goal of <100 mg/dL (LDL-C of <70 mg/dL) is considered a therapeutic option. Blood Blood / Unknown 08/19/2024 9 :25 AM EDT 08/19/2024 9:25 AM EDT Narrative [facility] - 08/20/2024 9:19 PM EDT FASTING:YES us Darwin Encinas PharmD LAB - BLOOD DRAW Final Re sult [facility] [address] [place] [address], [employer] [address] [address] * EYE EXAM (04/24/2024 3:00 AM EST) [...] Most Recently Relevant to Health Maintenance Insurance [facility] - DENTAL Member Subscriber Plan / Payer ( fective 2017-Present) Name:Leonie Corea Relation to Subscriber:Self Name:Leonie Corea Payer ID:[id number] Group ID:Not on file Type:Medicare Address: [place] [id number] [place] [id number] [facility] Care Teams Secy Relationship Specialty Start Date End Date Massimo Mcclellan PA [address] [place] [address] PCP - General FAMILY MEDICINE [place] 05/13/22
--- OUTSIDE RECORDS SUMMARY | 2025-01-13 15:44 | XMS_ITS | Patient Health Record ---
Author Organization [facility] Address [address] [place] [address] Care Team Providers Care Contact Finger Assembler Name Role Phone Massimo Figueroa Primary Care Provider Unavail able Miguel A Layne Unavailable [phone] Allergies Allergen (clinical drug ingredient) Drug/Non Drug Allergy documented on EMR Reaction Allergy Type Onset Date Status amoxicillin Amoxicillin hives Drug Allergy Act fred lidocaine Lidocaine hives Drug Allergy Active Morphine Sulfate itchy Drug Allergy Active Reason [...] Active Celecoxib 200 MG (Prior Auth: Rx Ref#:[id number]) Oral; Duration: 30 Not-Taking Tresiba Active DULoxetine HCl 60 MG (Prior Auth: Rx Ref#:[id number]) Oral; Duration: 30 Not-Taking NovoLOG Active Enalapril Maleate 10 MG (Prior Auth: Rx Ref#:[id number]) Oral; Duration: 90 Not-Taking Acetaminophen Extra Strength 500 MG (Prior Auth: Rx Ref#:[id number]) Oral; Duration: 13 Active Gabapentin 400 MG (Prior Auth: Rx Ref#:[id number]) Oral; Duration: 90 Not-Taking Albuterol Sulfate (2.5 MG/3ML) 0.083% (Prior Auth: Rx Ref#:[id number]) Inhalation; Duration: 10 Active Ferrous Sulfate 325 (65 Fe) MG 1 tablet Orally Once a day; Duration: 30 day(s) Not-Taking Capsaicin 0.025 % 1 application to affected area as needed Externally Three times a day Active Fluticasone Furoate 200 MCG/ACT 1 puff Inhalation Once a day Active hydroCHLOROthiazide 12.5 MG (Prior Auth: Rx Ref#:[id number]) Oral; Duration: 30 Active Polyethylene Glycol 3350 - as directed Active Flunisolide 25 MCG/ACT (0.025%) (Prior Auth: Rx Ref#:[id number]) Nasal; Duration: 25 Active Extra Depth Orthopedic Shoes (1 Pair) with Customized Heat Molded Multidensity Innersoles (3 Pair) as directed Dx: IDDM/Polyneuropathy (E10.42), Hammertoe Foot Deformity (M20.41,M20.42), Preulcerative Skin Lesion(s) (L85.1) 01/12/2023 Active Loratadine 10 MG (Prior Auth: Rx Ref#:[id number]) Oral; Duration: 90 Active Montelukast Sodium 10 MG (Prior Auth: Rx Ref#:[id number]) Oral; Duration: 30 Active oxyCODONE HCl 5 MG (Schedule II Drug) (Prior Auth: Rx Ref#:[id number]) Oral; Duration: 28 Active Pantoprazole Sodium 40 MG (Prior Auth: R x Ref#:[id number]) Oral; Duration: 30 Active Pravastatin Sodium 10 MG (Prior Auth: Rx Ref#:[id number]) Oral; Duration: 30 Active Aspirin Low Dose 81 MG (Prior Auth: Rx Ref#:[id number]) Oral; Duration: 90 Not-Taking Citracal + D [...] Problem Acquired hammer toe of right foot (6701588817161602 ) Other hammer toe(s) (acquired), right foot (M20.41) Active confirmed Problem Acquired hammer toe of left foot (0668224595758830 ) Other hammer toe(s) (acquired), left foot (M20.42) Active confirmed Problem Polyneuropathy due to diabetes mellitus type I (761584922) Type 1 diabetes mellitus with diabetic polyneuropathy (E10.42) Active confirmed Plan Of Treatment Pending Test Test Name Order Date X ray : Foot, left 3V 12/18/2018 X ray : Foot, right 3V 12/18/2018 79310-PKLLCFA NAIL, 6 OR MORE 11/10/2021 71836-SOXBLPV NAIL, 6 OR MORE 01/12/2023 15213-GNWG SKIN LESIONS, OVER 4 01/13/20 23 89962-LPTP SKIN LESIONS, OVER 4 11/11/19 22 29930-KOHT SKIN LESIONS, OVER 4 09/19/19 19 72833-WHDH SKIN LESIONS, OVER 4 12/19/19 19 67440-SBLE SKIN LESIONS, OVER 4 03/26/20 19 99532-EGJG SKIN LESIONS, OVER 4 09/09/19 21 92966-CTRJ SKIN LESIONS, OVER 4 06/12/19 22 Insurance Providers Payer Name Payer Address Payer Phone Subscriber Number Group Number Insured Name Patient Relationship to Insured Coverage Start Date Coverage End Date [facility] SCO Claims [address] [place] [id number] Leonie Corea Self - patient is the [...] History Reason Date(Month/Year) [facility]- check [facility] heart [facility] for kidney stones 05/01
--- OUTSIDE RECORDS SUMMARY | 2025-01-13 15:44 | XMS_ITS | Patient Health Record ---
Author Organization [facility] Address [address] [place] [address] Care Team Providers Care Linen Supervisor Name Role Phone RICKY GARZA, DAISY Primary Care Provider Unavailable Amor Dobbins Jr Unavailable [phone] Allergies Allergen (clinical drug ingredient) Drug/Non Drug Allergy documented on EMR Reaction Allergy Type Onset Date Status Penicillin Unknown Drug Allergy Active Morphine Sulfate Unknown Drug Allergy Active lidocaine Lidoderm patches Drug Allergy Active Codeine Phosphate Unknown Drug Allergy Active Reason For Referral No Information Medications Medication SIG (Take, Route, Frequency, Duration) Notes Start Date End Date Status Famotidine 40 MG 1 tablet at bedtime Orally Once a day for 30 day(s) Active Sdmrgsnrenn-Fytlrzbyf-Cvhrct 100-62.5-25 MCG/INH 1 puff Inhalation Once a [...] Problem Status W/U Status Risk Notes Problem 54142129 Epigastric pain (R10.13) Active confirmed Problem 950256875 Gastroesophageal reflux disease without esophagitis (K21.9) Active confirmed Problem 10509225 Iron deficiency anemia, unspecified iron deficiency anemia type (D50.9) Active confirmed Problem 497626247 Anemia, unspecif ied type (D64.9) Active confirmed Problem 87668262 Dysphagia, unspecified type (R13.10) Active confirmed Problem 49785788 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
--- OUTSIDE RECORDS SUMMARY | 2025-01-13 15:44 | XMS_ITS | Clinical Summary ---
Author Organization [facility] Address [address] [place] [address] Phone Care Team Providers Care Chairman Of The Board Name Role Phone Massimo Mcclellan Primary Care Provider [phone] Allergies Active Allergy Reactions Criticality Noted Date [...] kidney disease) stage 3, GFR 30-59 ml/min ([facility] [place], [facility] [place]28) 11/07/2017 Esophageal varices ([facility] [place], [facility] V28) Overview (01/30/2024): 06/2106 EGD, Grade 1 Meniere disease 11/07/2017 Overview (01/30/2024): 2015 Dr Baker Osteopenia 11/07/2017 Pulmonary hypertension ([facility] [place], [facility] V28 ) 11/07/2017 Overview (01/30/2024): 2015 DAVID RVSP- 46 Tubular adenoma of colon 11/07/2017 Overview (01/30/2024): 2005 Type 2 diabetes mellitus wit h cataract ([facility] [place], [facility] V28) 11/07/2017 Fibromyalgia 08/29/2017 Hepatitis C 08/29/2017 Hyperlipidemia 08/29/2017 Hyperparathyroidism ([facility] V24) 08/29/2017 Hypertension 08/29/2017 Kidney stone 08/29/2017 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 Overview (01/30/2024): Never treated Seizure disorder ([facility] [place], [facility] V28) 08/09 Overview (01/30/2024): Not on medication Allergic rhinitis 08/23/2017 Anxiety 08/23/2017 Asthma 08/23/2017 Depression 08/23/2017 DM (diabetes mellitus), type 2 with renal complications ([facility] [place], [facility] V28) 08/23/2017 GERD (gastroesophageal reflux disease) 8 Insomnia 08/23/2017 Osteoarthritis 08/23/2017 Overview (01/30/2024): Lumbar spine Encounters Date Type Department Care Team Description 10/29/2024 2:00 PM EDT Office Visit [facility]opedic [facility] [address] [address] Florian Mott DPM Controlled type 2 diabetes with neuropathy ([facility] V24, [facility] V28) (Primary Dx); Pain in toes of both feet; Arthritis of both feet; Difficulty walking; Dermatophytosis, nail from Last 3 Months Immunizations Immunization Administration Dates Next Due Moderna SARS-CoV-2 COVID-19, [...] Care Team (Late st Contact Info) Description 02/17/2025 1:15 PM EST Office Visit [facility] [address] [phone] Florian Mott DPM [address] [address] Health Maintenance Due Date Last Done Comments [...] Most Recently Relevant to Health Maintenance Insurance [facility] MEDICARE Member Subscriber Plan / Payer (Ef fective 2012-Present) Name:Leonie Corea Relation to Subscriber:Self Name:Leonie Corea Payer ID:[id number] Group ID:[id number] Type:Not on file Address: [address] [address] Advance Directives Documents on File Type Date Recorded Patient Cell Biologist Expl anation Health Care Decision (hx) 03/30/2021 [...] (hx) 12/25/2015 AD NIEVES DIRECTIVE Care Teams Chairman Of The Board Relationship Specialty Start Date End Date Massimo Mcclellan PA [address] [place] [address] PCP - General 11/24/23
--- OUTSIDE RECORDS SUMMARY | 2025-01-13 15:45 | XMS_ITS | Encounter Summary ---
Author Organization [facility] Address [address] [place] [address] Care Team Providers Care Back Shoe Worker Name Role Phone Massimo Mcclellan Primary Care Provider [phone] Encounter Details Date Type Department Care Team ([facility] st Contact Info) Description 12/17/2024 Results Follow-Up [facility] [address] [place] [phone] Darwin Encinas, PharmD [address] [place] [address] Social History Tobacco Use Types Packs/Day Years [...] AM PST documented as of this encounter Functional Status * Is the patient deaf or have serious difficulty hearing? Answer Date of Assessment Author No 10/29/2024 10:00 AM PDT Jalyn Ambrosio MA * Is the patient blind, or have serious difficulty seeing, even when wearing glasses? Answer Date of Assessment Author No 10/29/2024 10:00 AM PDT Jalyn Ambrosio MA * Does the patient have serious difficulty walking or climbing stairs? Answer Date of Assessment Author No 10/29/2024 10:00 AM PDT Jalyn Ambrosio MA * Does the patient have difficulty dressing or bathing? Answer Date of Assessment Author No 10/29/2024 10:00 AM PDT Jalyn Ambrosio MA * Because of a physical, mental, or emotional condition, does the patient have difficulty doing errands alone such as visiting a doctor???s office or shopping? Answer Date of Assessment Author No 10/29/2024 10:00 AM PDT Jalyn Ambrosio MA documented as of this encounter Mental Status * Because of a physical, mental, or emotional condition, does the patient have serious difficulty concentrating, remembering, or making decisions? Answer Entry Date Author No 10/29/2024 10:00 AM PDT Jalyn Ambrosio MA documented in this encounter Plan of Treatment Upcoming Encounters Date Type Department Care Team (Late st Contact Info) Description 01/30/2025 4:00 PM EDT Office Visit [facility] [address] [place] [phone] Massimo Mcclellan PA [address] [place] [address] Hillary Berkowitz [address] [place] [address] documented as of this encounter Visit Diagnoses Not on filedocumented in this encounter Additional Health Concerns Assessment Noted Time PHQ-9 Depression Total Score: 17 025 10:45 AM PDT A Depression follow-up plan has been documented for the patient 06/06/2024 10:24 PM PST documented as of this encounter Care Teams Back Shoe Worker Relationship Specialty Start Date End Date Massimo Mcclellan PA [address] [place] [address] PCP - General FAMILY MEDICINE, [place] 05/13/22 documented as of this encounter
--- OUTSIDE RECORDS SUMMARY | 2025-01-13 15:45 | XMS_ITS | Clinical Summary ---
Author Organization [facility] Address [address] [facility] [address] [place] [address] Phone Care Team Providers Care Cake Icer And Packer Name Role Phone Florinda Nino MD Primary [...] EDT) CREATININE 0.84 0.60 - 1.50 mg/dL [facility] EGFR >60 mL/min/1.7 3m2 [facility] Comment:Abnormal if <60 mL/m in/1.73m2. If patient is -Irish, multiply the result by 1.21. Blood 12/25/2015 3:10 AM EDT 12/25/2015 3:15 AM EDT To Arroyo MD LAB BLOOD ORDERABLES Final Resul t Performing Organization Address [facility] Co de Phone Number [address] [address] * Potassium (12/25/2015 3:10 AM EDT) POTASSIUM 4.1 3.4 - 5.0 mmol/L [facility] Blood 12/25/2015 3:10 AM EDT 12/25/2015 3:15 AM EDT To Arroyo MD LAB BLOOD ORDERABLES Final Resul t Performing Organization Address [facility] de Phone Number [address] [address] * (ABNORMAL) Lipid panel (12/23/2015 6:15 AM EDT) HDL 33(L) 35 - 100 mg/dL [facility] CHOLESTEROL 169 mg/dL [facility] Comment:DESIRABLE: <200 TRIGLYCERIDES 149 40 - 150 mg/dL [facility] LDL 106 mg/dL [facility] Comment:DESIRABLE: <130 CARDIAC RISK RATIO 5.1 [facility] Comment:NORMAL RISK RATIO: 5 .0 OR LESS 12/23/2015 6:15 AM EDT 12/23/2015 6:48 AM EDT Rishi [place] MD LAB BLOOD ORDERABLES Final R esult Performing Organization Address [facility] de Phone Number [address] [address] from Last 3 Months or Most Recently Relevant to Health Maintenance Insurance MEDICARE REPLACEMENT MEDICARE [place] [address] [place] [address] MEDICARE REPLACEMENT MEDICARE REPLACEMENT MEDIC[place] [address] [address] [place] [address] MEDICARE REPLACEMENT MEDICARE REPLACEMENT Advance Directives For more information, please contact: [phone] (9AM - 5PM [facility], Monday-Monday) Documents on File Type Date Recorded Patient Retail Tire Sales Manager Expl anation Healthcare Proxy 12/29/2015 10:38 AM Deborah d 01/23/2012 MOLST 12/29/2015 10:38 AM Signed * Full Code (Presumed) (Latest Code Status on File) Date Activated Date Inactivated Comments 12/21/2015 11:58 PM 12/25/2015 6:54 PM Care Teams Cake Icer And Packer Relationship Specialty Start Date End Date Florinda Nino MD [address] [place] [address] PCP - General Family Medicine 12/21/15 Additional Source Comments The information contained in this document represents components of the legal health record. It is not the complete legal health record.[facility]
--- OUTSIDE RECORDS SUMMARY | 2025-01-13 15:45 | XMS_ITS | Encounter Summary ---
Author Organization [facility] Address [address] [place] [address] Care Team Providers Care Quarry Supervisor Name Role Phone Massimo Mcclellan Primary Care Provider [phone] Reason for Referral * Endocrinology (Routine) - New Request Specialty Diagnoses / Procedures Referred By Yesi t Referred To Contact Endocrinology Diagnoses Type 2 diabetes mellitus with diabetic peripheral angiopathy without gangrene, with long-term current use of insulin Kobi Robert FNP [address] [place] [address] Phone: tel: fax: Referral ID Status Reason Start Date Expiration Date Visits Requested Visits Authorized [id number] New Request Specialty Services Required 01/09/2025 01/09/2026 1 1 Comments Hx Dm, please eval Lab Results Component Value Date HGBA1C 9.3 (H) 12/10/2024 * Neurology (Routine) - New Request Specialty Diagnoses / Procedures Referred By Contyovani t Referred To Contact Neurology Diagnoses Moderate vascular dementia with agitation Kobi Robert FNP [address] [place] [address] Phone: tel: fax: Referral ID Status Reason Start Date Expiration Date Visits Requested Visits Authorized [id number] New Request Specialty Services Required 01/09/2025 01/09/2026 1 1 Comments Vascular changes of brain on Rayus MRI with worsening memory- please eval Encounter Details Date Type Department Care Team (Late st Contact Info) Description 01/09/2025 Results Follow-Up [facility] [address] [place] [address] Kobi Robert FNP [address] [place] [address] Social History Tobacco Use Types Packs/Day Years [...] Description 01/30/2025 4:00 PM EDT Office Visit [facility] [address] [place] [address] Massimo Mcclellan PA [address] [place] [address] Hillary Berkowitz [address] [place] [address] Scheduled Referrals Name Type Priority Associated Diagnoses Orde r Schedule REFERRAL TO NEUROLOGY Referral Routine Moderate vascular dementia with agitation ([facility]) Ordered: 01/09/2025 REFERRAL TO ENDOCRINOLOGY Referral Routine Type 2 diabetes mellitus with diabetic peripheral angiopathy without gangrene, with long-term current use of insulin ([facility]) Ordered: 01/09/2025 documented as of this encounter Visit Diagnoses Diagnosis Moderate vascular dementia with agitation- Primary Type 2 diabetes mellitus with diabetic peripheral angiopathy without gangrene, with long-term current use of insulin documented in this encounter Additional Health Concerns Assessment Noted Time PHQ-9 Depression Total Score: 17 025 10:45 AM PDT A Depression follow-up plan has been documented for the patient 06/06/2024 10:24 PM PST documented as of this encounter Care Teams Quarry Supervisor Relationship Specialty Start Date End Date Massimo Mcclellan PA [address] [place] [address] PCP - General FAMILY MEDICINE [place] 05/13/22 documented as of this encounter
== END 2025-01-13 14:15 | disposition home or self-care (01) ==
LOC: HO.HNS 13:18
PROVIDERS: PCP Physician Assistant; Visit Provider Physician Assistant
DX: Z98.1 Arthrodesis status (principal)
CPT/HCPCS: 99213

== ENCOUNTER 2025-01-13 13:17 | Outpatient (REF) | payer OTHER, SELFPAY ==
--- NOTE | ~2025-01-13 | XR_ITS ---
EXAMINATION: XR CERVICAL SPINE CLINICAL INFORMATION: Z98.1 - Arthrodesis status COMPARISON: None available. TECHNIQUE: 4 views of the cervical spine were obtained. FINDINGS: Anterior fusion hardware at C3-C4, C4-5 and C5-6. This appears unchanged. Mild anterior subluxation of C3 with respect to C4 similar to prior exam and stable on flexion and extension views. No instability on flexion and extension views. Degenerative spondylosis and disc space narrowing at C6-7 and C7-T1. Degenerative spondylosis at C2-3. Multilevel facet arthritis. Prevertebral soft tissues are normal. XR/XR cervical spine 4V IMPRESSION: Stable postsurgical change from arthrodesis from C3-4 to C5-6. Mild anterior subluxation of C3 with respect to C4 stable on flexion and extension views and similar to prior exam. No instability on flexion and extension views seen. Electronically signed by: Tonie Torrez MD 01/13/2025 01:54 PM EDT
== END 2025-01-13 13:18 | disposition home or self-care (01) ==
LOC: HO.HOSX 13:17
PROVIDERS: PCP Physician Assistant; Visit Provider Physician Assistant
DX: Z98.1 Arthrodesis status (principal); M54.2 Cervicalgia
CPT/HCPCS: 72050; 99212

== ENCOUNTER → 2025-01-13 13:35 | Outpatient (BNV) | payer OTHER, SELFPAY | PROVIDERS: PCP Physician Assistant; Visit Provider Radiology Diagnostic Radiology | DX: Z98.1 Arthrodesis status (principal) ==

== ENCOUNTER 2025-01-14 15:49 | Outpatient (REF) | payer OTHER, SELFPAY ==
--- OUTSIDE RECORDS SUMMARY | 2015-12-21 | XMS_ITS | Encounter Summary ---
Author Organization [facility] Address [address] [place] [address] Phone Care Team Providers Care Physician Allergist Immunologist Name Role Phone Florinda iNno MD Primary Care Provider Encounter Details Date Type Department Care Team (Late st Contact Info) Description 12/21/[address] [facility] [address] [place] [address] Del Sloan MD [address] [place] [address] Social History Tobacco Use Types Packs/Day Years [...] [facility] [place] [facility] [address] [place] [address] documented in this encounter Visit Diagnoses Not on filedocumented in this encounter Care Teams Physician Allergist Immunologist Relationship Specialty Start Date End Date Florinda Nino MD [address] [place] [address] PCP - General Family Medicine 12/21/15 documented as of this encounter Additional Source Comments The information contained in this document represents components of the legal health record. It is not the complete legal health record.[facility]
--- OUTSIDE RECORDS SUMMARY | 2015-12-21 00:15 | XMS_ITS | Encounter Summary ---
Author Organization [facility] Address [address] [place] [address] Phone Care Team Providers Care Kapok Machine Operator Name Role Phone Florinda Nino MD Primary Care Provider Encounter Details Date Type Department Care Team (Late st Contact Info) Description 12/21/2015 12:15 AM EDT [facility] [address] [place] [address] Del Sloan MD [address] [place] [phone] Social History Tobacco Use Types Packs/Day Years [...] AM EDT) 12/22/2015 8:35 AM EDT Impressions [facility] - 12/22/2015 11:02 AM EDT IMPRESSION: Extensive bilateral pulmonary emboli, with evidence of right ventricular strain. No evidence of pneumonia, pulmonary edema, or pulmonary infarct. This report is limited to the body part and modality requested, regardless of which images were uploaded. If additional reports are required, please contact the appropriate Division of the Radiology Department. Narrative [facility] - 12/22/2015 11:02 AM EDT EXAM: [...] I NTERPRETATION Final Result Performing Organization Address City/State/[facility] Co de Phone Number [facility] [address] [facility] [place] [address] documented in this encounter Visit Diagnoses Not on filedocumented in this encounter Care Teams Kapok Machine Operator Relationship Specialty Start Date End Date Florinda Nino MD [address] [place] [phone] PCP - General Family Medicine 12/21/15 documented as of this encounter Additional Source Comments The information contained in this document represents components of the legal health record. It is not the complete legal health record.[facility]
--- OUTSIDE RECORDS SUMMARY | 2023-09-18 06:00 | XMS_ITS ---
Author Organization [facility] Address [address] [place] [phone] Care Team Providers Care Applied Anthropologist Name Role Phone RICKY GARZA, DAISY Primary Care Provider Amor Gutierrez Jr [phone] REASON FOR VISIT Patient presents today for intestinal issues Encounters Encounter Location Date Provider Diagnosis [facility] [address] [place] [phone] 09/18/2023 Amor Dobbins Jr Plan Of Treatment No Information Progress Notes * TOMMY CHOU EDOB:1945 (79 yo F)Acc No.[id number]:09/18/2023 Progress Notes Patient: TOMMY MICHELLE Provider: Francie Dobbins MD :1945 A ge:78 Y S ex:Female Date:09/18/2023 Address:[address] [place], [place] [phone] Pcp:Jake GALEANO Subjective: * Chief Complaints: * [...] 09/18/2023 Generated for Printi ng/Famatildeg/eTransmitting on: 1 06:46 PM EDT
--- OUTSIDE RECORDS SUMMARY | 2024-01-17 07:20 | XMS_ITS ---
Author Organization [facility] Address [address] [place] [phone] Care Team Providers Care Strike Plate Attacher Name Role Phone RICKY GARZA, DAISY Primary Care Provider Amor Gutierrez Jr [phone] REASON FOR VISIT INTESTINAL ISSUES Encounters Encounter Location Date Provider Diagnosis [facility] 10 [address] [facility] [address] [place] [phone] 01/17/2024 Amor Dobbins Jr Plan Of Treatment No Information Progress Notes * TOMMY CHOU EDOB:1945 (79 yo F)Acc No.[id number]:01/17/2024 Progress Notes Patient: TOMMY MICHELLE Provider: Francie Dobbins MD :1945 A ge:78 Y S ex:Female Date:01/17/2024 Address:[address] [place], [place] [phone] Pcp:Jake GALEANO Subjective: * Chief Complaints: * [...] MD Date: Generated for Printi ng/Faxing/eTransmitting on: 06:45 PM EDT
--- OUTSIDE RECORDS SUMMARY | 2025-01-14 18:45 | XMS_ITS | Patient Health Record ---
Author Organization [facility] Address [address] [place] [address] Care Team Providers Care Marble Finisher Name Role Phone Massimo Figueroa Primary Care Provider Unavail able Miguel A Layne Unavailable [phone] Allergies Allergen (clinical drug ingredient) Drug/Non Drug [...] Active Celecoxib 200 MG (Prior Auth: Rx Ref#:[id number]) Oral; Duration: 30 Not-Taking Tresiba Active DULoxetine HCl 60 MG (Prior Auth: Rx Ref#:[id number]) Oral; Duration: 30 Not-Taking NovoLOG Active Enalapril Maleate 10 MG (Prior Auth: Rx Ref#:[id number]) Oral; Duration: 90 Not-Taking Acetaminophen Extra Strength 500 MG (Prior Auth: Rx Ref#:[id number]) Oral; Duration: 13 Active Gabapentin 400 MG (Prior Auth: Rx Ref#:[id number]) Oral; Duration: 90 Not-Taking Albuterol Sulfate (2.5 MG/3ML) 0.083% (Prior Auth: Rx Ref#:[id number]) Inhalation; Duration: 10 Active Ferrous Sulfate 325 (65 Fe) MG 1 tablet Orally Once a day; Duration: 30 day(s) Not-Taking Capsaicin 0.025 % 1 application to affected area as needed Externally Three times a day Active Fluticasone Furoate 200 MCG/ACT 1 puff Inhalation Once a day Active hydroCHLOROthiazide 12.5 MG (Prior Auth: Rx Ref#:[id number]) Oral; Duration: 30 Active Polyethylene Glycol 3350 - as directed Active Flunisolide 25 MCG/ACT (0.025%) (Prior Auth: Rx Ref#:[id number]) Nasal; Duration: 25 Active Extra Depth Orthopedic Shoes (1 Pair) with Customized Heat Molded Multidensity Innersoles (3 Pair) as directed Dx: IDDM/Polyneuropathy (E10.42), Hammertoe Foot Deformity (M20.41,M20.42), Preulcerative Skin Lesion(s) (L85.1) 01/12/2023 Active Loratadine 10 MG (Prior Auth: Rx Ref#:[id number]) Oral; Duration: 90 Active Montelukast Sodium 10 MG (Prior Auth: Rx Ref#:[id number]) Oral; Duration: 30 Active oxyCODONE HCl 5 MG (Schedule II Drug) (Prior Auth: Rx Ref#:[id number]) Oral; Duration: 28 Active Pantoprazole Sodium 40 MG (Prior Auth: R x Ref#:[id number]) Oral; Duration: 30 Active Pravastatin Sodium 10 MG (Prior Auth: Rx Ref#:[id number]) Oral; Duration: 30 Active Aspirin Low Dose 81 MG (Prior Auth: Rx Ref#:[id number]) Oral; Duration: 90 Not-Taking Citracal + D [...] Problem Acquired hammer toe of right foot (3493872529406680 ) Other hammer toe(s) (acquired), right foot (M20.41) Active confirmed Problem Acquired hammer toe of left foot (0395772460527580 ) Other hammer toe(s) (acquired), left foot (M20.42) Active confirmed Problem Polyneuropathy due to diabetes mellitus type I (108721472) Type 1 diabetes mellitus with diabetic polyneuropathy (E10.42) Active confirmed Plan Of Treatment Pending Test Test Name Order Date X ray : Foot, left 3V 12/18/2018 X ray : Foot, right 3V 12/18/2018 90913-HXMIBFU NAIL, 6 OR MORE 11/10/2021 20835-VJINOYR NAIL, 6 OR MORE 01/12/2023 06814-NCWA SKIN LESIONS, OVER 4 01/13/20 23 09557-YWOL SKIN LESIONS, OVER 4 11/11/19 22 03596-RTWO SKIN LESIONS, OVER 4 09/19/19 19 45617-RMXS SKIN LESIONS, OVER 4 12/19/19 19 34113-LKPJ SKIN LESIONS, OVER 4 03/26/20 19 25571-NDCR SKIN LESIONS, OVER 4 09/09/19 21 76470-XPYJ SKIN LESIONS, OVER 4 06/12/19 22 Insurance Providers Payer Name Payer Address Payer Phone Subscriber Number Group Number Insured Name Patient Relationship to Insured Coverage Start Date Coverage End Date [facility] SCO Claims [address] [place] [id number] Leonie Corea Self - patient is the [...] Date(Month/Year) [facility] for kidney stones 05/01
--- OUTSIDE RECORDS SUMMARY | 2025-01-14 18:45 | XMS_ITS | Patient Health Record ---
Author Organization [facility] Address [address] [place] [phone] Care Team Providers Care Plate Worker Name Role Phone RICKY GARZA, DAISY Primary [...] Once a day for 30 day(s) Active Ocplagmifkr-Qcekzwvng-Rsxuic 100-62.5-25 MCG/INH 1 puff Inhalation Once a [...] Problem Status W/U Status Risk Notes Problem 56104955 Epigastric pain (R10.13) Active confirmed Problem 119726423 Gastroesophageal reflux disease without esophagitis (K21.9) Active confirmed Problem 98619654 Iron deficiency anemia, unspecified iron deficiency anemia type (D50.9) Active confirmed Problem 501159780 Anemia, unspecif ied type (D64.9) Active confirmed Problem 45263034 Dysphagia, unspecified type (R13.10) Active confirmed Problem 79437525 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
--- OUTSIDE RECORDS SUMMARY | 2025-01-14 18:46 | XMS_ITS | Encounter Summary ---
Author Organization [facility] Address [address] [place] [address] Care Team Providers Care Keyboarding Clerk Name Role Phone Massimo Mcclellan Primary Care Provider [phone] Encounter Details Date Type Department Care Team ([facility] st Contact Info) Description 12/17/2024 Results Follow-Up [facility] [address] [place] [phone] Darwin Encinas, PharmD [address] [place] [address] Social History Tobacco Use Types Packs/Day Years [...] Description 01/30/2025 4:00 PM EDT Office Visit [facility] [address] [place] [phone] Massimo Mcclellan PA [address] [place] [address] Hillary Berkowitz [address] [place] [address] documented as of this encounter Visit Diagnoses Not on filedocumented in this encounter Additional Health Concerns Assessment Noted Time PHQ-9 Depression Total Score: 17 025 10:45 AM PDT A Depression follow-up plan has been documented for the patient 06/06/2024 10:24 PM PST documented as of this encounter Care Teams Keyboarding Clerk Relationship Specialty Start Date End Date Massimo Mcclellan PA [address] [place] [address] PCP - General FAMILY MEDICINE, [place] 05/13/22 documented as of this encounter
--- OUTSIDE RECORDS SUMMARY | 2025-01-14 18:46 | XMS_ITS | Clinical Summary ---
Author Organization [facility] Address [address] [facility] [address] [place] [address] Phone Care Team Providers Care Computer Aided Design Drafter Name Role Phone Florinda Nino MD Primary [...] EDT) CREATININE 0.84 0.60 - 1.50 mg/dL [facility] EGFR >60 mL/min/1.7 3m2 [facility] Comment:Abnormal if <60 mL/m in/1.73m2. If patient is -Nigerian, multiply the result by 1.21. Blood 12/25/2015 3:10 AM EDT 12/25/2015 3:15 AM EDT To Arroyo MD LAB BLOOD ORDERABLES Final Resul t Performing Organization Address [facility] Co de Phone Number [address] [address] * Potassium (12/25/2015 3:10 AM EDT) POTASSIUM 4.1 3.4 - 5.0 mmol/L [facility] Blood 12/25/2015 3:10 AM EDT 12/25/2015 3:15 AM EDT To Arroyo MD LAB BLOOD ORDERABLES Final Resul t Performing Organization Address [facility] de Phone Number [address] [address] * (ABNORMAL) Lipid panel (12/23/2015 6:15 AM EDT) HDL 33(L) 35 - 100 mg/dL [facility] CHOLESTEROL 169 mg/dL [facility] Comment:DESIRABLE: <200 TRIGLYCERIDES 149 40 - 150 mg/dL [facility] LDL 106 mg/dL [facility] Comment:DESIRABLE: <130 CARDIAC RISK RATIO 5.1 [facility] Comment:NORMAL RISK RATIO: 5 .0 OR LESS 12/23/2015 6:15 AM EDT 12/23/2015 6:48 AM EDT Rishi Lindsey MD LAB BLOOD ORDERABLES Final R esult Performing Organization Address [facility] de Phone Number [address] [address] from Last 3 Months or Most Recently Relevant to Health Maintenance Insurance MEDICARE REPLACEMENT MEDICARE [place] [address] [place] [address] MEDICARE REPLACEMENT MEDICARE REPLACEMENT MEDICARE [place] [address] [place] [address] MEDICARE REPLACEMENT MEDICARE REPLACEMENT Advance Directives For more information, please contact: [phone] (9AM - 5PM [facility], Monday-Monday) Documents on File Type Date Recorded 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 It is not the complete legal health record.[facility]
--- OUTSIDE RECORDS SUMMARY | 2025-01-14 18:46 | XMS_ITS | Clinical Summary ---
Author Organization [address] [facility] Address [address] [place] [address] Phone Care Team Providers Care Optical Systems Engineer Name Role Phone Massimo Mcclellan Primary Care [...] kidney disease) stage 3, GFR 30-59 ml/min ([facility] [place]24, [facility] [place] V28[place] 11/07/2017 Esophageal varices ([facility] [place] V24, [facility] [place] V28) Overview (01/30/2024): 06/2106 EGD, Grade 1 Meniere disease 11/07/2017 Overview (01/30/2024): 2015 Dr Baker Osteopenia 11/07/2017 Pulmonary hypertension ([facility] [place] V24, [facility] [place] V28 ) 11/07/2017 Overview (01/30/2024): 2015 DAVID RVSP- 46 Tubular adenoma of colon 11/07/2017 Overview (01/30/2024): 2005 Type 2 diabetes mellitus wit h cataract ([facility] [place] V24, [facility] [place] V28) 11/07/2017 Fibromyalgia 08/29/2017 Hepatitis C 08/29/2017 Hyperlipidemia 08/29/2017 Hyperparathyroidism ([facility] [place] V24) 08/29/2017 Hypertension 08/29/2017 Kidney stone 08/29/2017 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 Overview (01/30/2024): Never treated Seizure disorder ([facility] [place] V24, [facility] [place] V28) 08/09 Overview (01/30/2024): Not on medication Allergic rhinitis 08/23/2017 Anxiety 08/23/2017 Asthma 08/23/2017 Depression 08/23/2017 DM (diabetes mellitus), type 2 with renal complications ([facility] [place] V24, [facility] [place] V28) 08/23/2017 GERD (gastroesophageal reflux disease) 8 Insomnia 08/23/2017 Osteoarthritis 08/23/2017 Overview (01/30/2024): Lumbar spine Encounters Date Type Department Care Team Description 10/29/2024 2:00 PM EDT Office Visit Orthopedic Surgery [facility] [address] [phone] Florian Mott DPM Controlled type 2 diabetes with neuropathy ([facility] V24, [facility] V28) (Primary Dx); Pain in toes of [...] 1:15 PM EST Office Visit Orthopedic Surgery [facility] [address] [phone] Florian Mott DPM [address] [address] Health Maintenance Due Date Last Done Comments [...] Most Recently Relevant to Health Maintenance Insurance [facility] MEDICARE Member Subscriber Plan / Payer (Ef fective 2012-Present) Name:Leonie Corea Relation to Subscriber:Self Name:Leonie Corea Payer ID:[id number] Group ID:[id number] Type:Not on file Address: [address] [address] Advance Directives Documents on File Type Date Recorded Patient Research Recruiter Expl anation Health Care Decision (hx) 03/30/2021 [...] (hx) 12/25/2015 AD NIEVES DIRECTIVE Care Teams Optical Systems Engineer Relationship Specialty Start Date End Date Massimo Mcclellan PA [address] [place] [address] PCP - General 11/24/23
--- OUTSIDE RECORDS SUMMARY | 2025-01-14 18:46 | XMS_ITS | Clinical Summary ---
Author Organization [facility] Address [address] [place] [address] Care Team Providers Care Candy Maker Name Role Phone Massimo Mcclellan Primary Care Provider [phone] Source Comments PLEASE NOTE, if this patient [...] (NARCAN) 4 mg/actuation nasal spray Place 1 [place] into the nostril(s) as needed for opioid [...] Active triamcinolone (KENALOG) 0.025 % cream [facility]/pharmacy #[address] [place] [address] 60 g 0 Days Supply: 10Sig: APLIQUE AL JACOBO AFECTADA TOPICALLY DOS VECES AL D A POR 10 D ASSource: 2 Outside SourcesAuthorized by: THO HERNANDEZ 2023 Active montelukast (SINGULAIR) 10 mg tablet Take 1 Tablet by mouth nightly at bedtime (Prescribed by production operations manager Dr. Berkowitz) 2023 Active apixaban (ELIQUIS) 5 mg tab Take 1 Tablet by mouth 2 (two) times Daily (Prescribed by production operations manager - Dr. Michael Berkowitz) 2023 Active glucose [...] ANTES DEL DESAYUNO 90 Capsule 2024 Active memantine (NAMENDA) 5 mg tablet [...] Amount: 4 Tablets 120 Tablet 2024 Active acetaminophen (TYLENOL 8 HOUR) [...] Tablet 12/18 Discontinued( Reorder (E-Cancel Not Sent)) oxyCODONE (ROXICODONE) 10 mg tab tabletIndication s:Sciatica, unspecified laterality,Osteo arthritis, unspecified osteoarthritis type, unspecified site,Fibromyalgi a,Peripheral venous insufficiency,Ce rvical pain (neck),Myofascia l muscle pain Take 1 Tablet by mouth every 6 to 8 (six to eight) hours NEEDED FOR SEVERE PAIN!!. Max Daily Amount: 4 Tablets 120 Tablet 01/14 Discontinued( Reorder (E-Cancel Not Sent)) Active Problems [...] syndrome 08/08/2022 08/09/19 23 Overview (08/28/2024): 08/19/24 [facility] pain management Plan recommend surgical intervention at [...] ventricular hypertrophy 08/08/202204/2022 Overview (03/05/2024): 12/20/23 at [facility] Cardio Chest pain Improved with Imdur; [...] may be normal for the patient's age. 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 06/16/08 SURGEON: Danny Marie M.D. SUPERVISOR CUSTOMER SERVICES: Naima Bowling M.D. Kidney stone 08/29/2017 08/08/2022 Hyperlipidemia LDL goal <70 08/29/2017 05/0 04/2022 Essential hypertension 08/29/2017 3 Seizure disorder 08/29/2017 08/08/2022 Overview (08/08/2022): Not [...] (11/10/10, 05/20/04) Diabetes foot exam: 10/29/24 at [facility] Educated on importance of keeping tight glucose control, chances for ulceration infection amputation in future Pt suffering with arthritic change of the midfoot. Encouraged to use topical anti-inflammatory medication to help decrease flare-ups Encouraged to use supportive devices Nail debridement 1-5 bilaterally RTC 9 weeks 04/25/24 at [facility] - notes on file 02/21/24 at [facility] - notes on file Diabetes retinal [...] new glasses RX, optional F/U 1 year [facility] Endocrinology: 11/24/22 Start Tradjenta 5 mg [...] valve insufficiency 05/24/2017 Overview (03/05/2024): 12/20/23 at [facility] Cardio Chest pain Improved with Imdur; [...] dysfunction 05/24/2017 08/08/2022 Overview (03/05/2024): 12/20/23 at [facility] Cardio Chest pain Improved with Imdur; [...] dilation 12/22/201508/08 Overview (08/08/2022): TTE 12/22/15 in [facility]: RV dilatation, RVSP 46 TTE 12/22/15 in [facility]: RV dilatation, RVSP 46 Anemia 12/21/2015 08/08/2022 Deep vein thrombosis (DVT) 12/21/201508/08 Overview (08/08/2022): LE US- DVT involving 2 of 2 peroneal veins diagnosed on Dec 20 [facility] LE US- DVT involving 2 of 2 peroneal veins diagnosed on Dec 20 [facility] Positive PPD 10/09/2014 08/08/2022 Overview (08/08/2022): [...] exc for 2 hyperplastic polypsColonoscopy 2004 at [facility] per letter of Dr Amor Dobbins Tubular adenoma 04/10/2004 08/08/2022 Overview (08/08/2022): catherine colo July 2009 exc for 2 hyperplastic polypsColonoscopy 2004 at [facility] per letter of Dr Amor Dobbins Resolved Problems Problem Noted Date Diagnosed Date Resolved Date Obesity 08/08/2022 08/08/2022 07/24/2024 Encounters Date Type Department Care Team Description 01/09/2025 Results Follow-Up [facility] [address] [place] [phone] Kobi Robert FNP 12/17/2024 Results Follow-Up [address] [address] Darwin Encinas, PharmD 11/25/2024 1:00 PM EDT Office Visit [facility] [place] [address] Wild Vickers DDS 11/13/2024 10:20 AM EDT Telemedicine Visit [facility] [address] [place] [address] Darwin Encinas, PharmD 10/29/2024 10:40 AM EDT Office Visit [facility] [address] [place] [address] Massimo Mcclellan PA Diaz, Wilma from Last [...] Description 01/30/2025 4:00 PM EDT Office Visit [facility] [address] [place] [phone] Massimo Mcclellan PA [address] [place] [address] Hillary Berkowitz [address] [place] [address] Health Maintenance Due Date Last Done Comments Urine Drug Screen 1945 Medicare Annual Wellness Visit 1962 Imm-RSV (adult) (1 - 1-dose 75+ series) 07/06/2019 Hepatocellular Carcinoma Scr eening (HCC) 04/23/2023 10/21/2022 Imm-Hepatitis B (2 of 2 - Cp G risk 2-dose series) 11/26/2024 10/29/2024 [id number] ( season) 2024 12/27/2023, 02/14/2023, 05/25/2022, Additional [...] Date/Time Associated Diagnosis Comments IMAGING SCANNED DOCUMENT 01/13/2025 3:00 AM EDT IMAGING SCANNED DOCUMENT 01/13/2025 3:00 AM EDT MR BRAIN WO Routine 01/03/2025 3:00 AM EDT Memory impairment OTHER ORDERS SCANNED DOCUMENT 12/30/2024 3:00 AM EDT REFERRAL SCANNED DOCUMENT 12/11/2024 3:00 AM EDT HEMOGLOBIN GLYCOSYLATED A1C Routine 12/10/2024 11:10 AM EDT Type 2 diabetes mellitus with diabetic peripheral angiopathy without gangrene, with long-term current use of insulin ([facility]) COMPREHENSIVE METABOLIC PANEL Routine 12/10/2024 11:10 AM EDT Type 2 diabetes mellitus with diabetic peripheral angiopathy without gangrene, with long-term current use of insulin ([facility]) Essential hypertension DENTAL CASE MANAGEMENT - [...] gangrene, with long-term current use of insulin ([facility]) Routine adult health maintenance REFERRAL SCANNED [...] gangrene, with long-term current use of insulin ([facility]) Hyperlipidemia LDL goal <70 MICROALBUMIN/CREATINI NE RATIO, URINE, RANDOM Routine 08/19/2024 9:25 AM EDT Type 2 diabetes mellitus with diabetic peripheral angiopathy without gangrene, with long-term current use of insulin ([facility]) EYE EXAM 04/24/2024 3:00 AM EST HISTORIC DEXA SCAN 11/22/2022 3: 00 AM EDT US ABDOMEN ULTRASOUND Routine 10/21/2022 3:00 AM EDT Abdominal pain, unspecified abdominal location UPPER GI ENDOSCOPY Routine 08/08/2022 11 :41 AM EDT Varices of esophagus determined by endoscopy ([facility]) from Last 3 Months or Most Recently Relevant to Health Maintenance Results * IMAGING SCANNED DOCUMENT (01/13/2025 3:00 AM EDT) Only the most recent of2 resultswithin the time period is included. 01/13/2025 3:00 AM EDT Massimo Mcclellan PA SCAN IMAGING Final Result * MR BRAIN WO (01/03/2025 3:00 AM EDT) 01/03/2025 3:00 AM EDT Impressions [facility] - 01/04/2025 11:03 AM [...] and Electronically Signed by: Ericka Garcia M.D. Narrative [facility] DIAGNOSTIC IMAGING - 01/04/2025 11:03 AM EDT [...] the sella are preserved. Procedure Note Default, [facility] Provider - 01/04/2025 Original Report EXAM: [...] Signed by: Ericka Garcia M.D. Kobi Robert [facility] MRI Edited Re sult - Final [facility] Corporate Office [address], [address] [place] [address], * OTHER ORDERS SCANNED DOCUMENT (12/30/2024 3:00 AM EDT) Only the most recent of5 resultswithin the time period is included. 12/30/2024 3:00 AM EDT Kobi Robert [facility] SCAN OTHER ORDERS Final R esult * REFERRAL SCANNED DOCUMENT (12/11/2024 3:00 AM EDT) Only the most recent of3 resultswithin the time period is included. 12/11/2024 3:00 AM EDT Massimo PACHECO SCAN REFERRAL Final Result * (ABNORMAL) HEMOGLOBIN GLYCOSYLATED A1C Routine (12/10/2024 11:10 AM EDT) HEMOGLOBIN A1C 9.3(H) <5.7 % 12/11/2024 6:15 AM EDT [facility] Blood Blood / Unknown 12/10/2024 1 1:10 AM EDT 12/11/2024 3:45 AM EDT Narrative [place] - 12/11/2024 6:31 AM EDT FASTING:NO For [...] LAB - BLOOD DRAW Final Re sult [employer] [facility] [address] [address], [place] [facility] [address] [place] [address] * (ABNORMAL) COMPREHENSIVE METABOLIC PANEL Routine (12/10/2024 11:10 AM EDT) [facility] Signature GLUCOSE 194(H) 65 - 139 mg/dL 12/11/2024 8:29 AM [employer] [facility] UREA NITROGEN (BUN) 13 7 - 25 mg/dL 12/11/2024 8:29 AM [employer] [facility] CREATININE (blood) 0.93 0.60 - 0.95 mg/dL 12/11/2024 8:29 AM EDGlycode [facility] EGFR 62 > OR = 60 mL/min/1. 73m2 12/11/2024 8:29 AM [employer] BUN/CREATININE RATIO SEE NOTE: 6 - 22 (calc) 12/11/2024 8:29 AM EDGlycode [facility] SODIUM 140 135 - 146 mmol/L 12/11/2024 8:29 AM [employer] [facility] POTASSIUM 4.3 3.5 - 5.3 mmol/L 12/11/2024 8:29 AM EDSalesvue CHLORIDE 102 98 - 110 mmol/L 12/11/2024 8:29 AM Un[employer] [facility] CARBON DIOXIDE 31 20 - 32 mmol/L 12/11/2024 8:29 AM Un[employer] [facility] CALCIUM 9.0 8.6 - 10.4 mg/dL 12/11/2024 8:29 AM Un[employer] [facility] PROTEIN, TOTAL 6.6 6.1 - 8.1 g/dL 12/11/2024 8:29 AM Un[employer] [facility] ALBUMIN 4.0 3.6 - 5.1 g/dL 12/11/2024 8:29 AM EDT [place] [facility] GLOBULIN 2.6 1.9 - 3.7 g/dL (calc) 12/11/2024 8:29 AM EDT [place] ALBUMIN/GLOBULI N RATIO 1.5 1.0 - 2.5 (calc) 12/11/2024 8:29 AM EDT [facility] BILIRUBIN, TOTAL 0.5 0.2 - 1.2 mg/dL 12/11/2024 8:29 AM EDT [facility] ALKALINE PHOSPHATASE 112 37 - 153 U/L 12/11/2024 8:29 AM EDT [facility] AST 17 10 - 35 U/L 12/11/2024 8:29 AM EDT [facility] ALT 14 6 - 29 U/L 12/11/2024 8:29 AM EDT [facility] Blood Blood / Unknown 12/10/2024 1 1:10 AM EDT 12/11/2024 5:42 AM EDT Narrative [employer] [facility] - 12/11/2024 8:33 AM EDT FASTING:NO . Non-fasting reference interval . Not Reported: BUN and Creatinine are within reference range. . us Darwin Encinas PharmD LAB - BLOOD DRAW Final Re sult [place] [address] [address], [place] [address] [address] * THYROID PANEL WITH TSH Routine (10/29/2024 11:57 AM EDT) TSH 3.19 0.40 - 4.50 mIU/L [facility] T-3 UPTAKE 28 22 - 35 % sfilatino [facility] T-4 (THYROXINE), TOTAL 8.2 5.1 - 11.9 mcg/dL [place] [facility] FREE T4 INDEX (T7) 2.3 1.4 - 3.8 [email or web address] [facility] Blood Blood / Unknown 10/29/2024 1 1:57 AM EDT 10/29/2024 11:59 AM EDT us Massimo PACHECO LAB - BLOOD DRAW Final Result Performing Organization Address City/[facility]/ZIP Co de Phone Number [place] [address] [address], [place] [address] [address] * CREATININE BLOOD Routine (10/29/2024 11:57 AM EDT) CREATININE (blood) 0.90 0.60 - 0.95 mg/dL [place] [facility] EGFR 65 > OR = 60 mL/min/1.7 3m2 [place] Blood Blood / Unknown 10/29/2024 1 1:57 AM EDT 10/29/2024 11:59 AM EDT us Massimo PACHECO LAB - BLOOD DRAW Final Result Performing Organization Address City/[facility] Co de Phone Number [place] [address] [address], [place] [address] [address] * MICROALBUMIN/CREATININE RATIO, URINE, RANDOM (08/19/2024 9:25 AM EDT) CREATININE, RANDOM URINE 109 20 - 275 mg/dL [place] [facility] MICROALBUMIN 2.0 mg/dL [place] D [employer] [facility] Comment: Reference Range Not established MICROALBUMIN/CREA TININE RATIO, RANDOM URINE 18 <30 mg/g creat [facility] Comment: The ADA defines abnormalities in [...] AM EDT 08/19/2024 9:25 AM EDT Narrative [employer] [facility] - 08/20/2024 9:19 PM EDT FASTING:YES us Darwin Wareis PharmD LAB URINE AMBULATORY Rubi l Result Performing Organization Address [facility]/ZIP Co de Phone Number [place] [address] [address], [place] [address] [address] * LIPID PANEL (08/19/2024 9:25 AM EDT) CHOLESTEROL, TOTAL 155 <200 mg/dL [place] [facility] HDL CHOLESTEROL 57 > OR = 50 mg/dL [place] [facility] TRIGLYCERIDES 97 <150 mg/dL [place] LDL-CHOLESTEROL 80 99 mg/dL (calc) [place] Comment: Reference range: <100 Desirable range <100 mg/dL for primary prevention; <70 mg/dL for patients with CHD or diabetic patients with > or = 2 CHD risk factors. LDL-C is now calculated using the Alvarez calculation, which is a validated novel method providing better accuracy than the Friedewald equation in the estimation of LDL-C. Gilles SS et al. JESUS. 2013;310(19): 3756-0695 (http://education.Vanksen/faq/QCH942) CHOL/HDLC RATIO 2.7 <5.0 (calc) [employer] [facility] NON-HDL CHOLESTEROL 98 <130 mg/dL (calc) [place] Comment: For patients with diabetes plus 1 major ASCVD risk factor, treating to a non-HDL-C goal of <100 mg/dL (LDL-C of <70 mg/dL) is considered a therapeutic option. Blood Blood / Unknown 08/19/2024 9 :25 AM EDT 08/19/2024 9:25 AM EDT Narrative [employer] [facility] - 08/20/2024 9:19 PM EDT FASTING:YES [employer] Darwin Huang PharmD LAB - BLOOD DRAW Final Re sult Performing Organization Address [facility]/ZIP Co de Phone Number [place] [address] [address], [place] [address] [address] * EYE EXAM (04/24/2024 3:00 AM EST) [...] Most Recently Relevant to Health Maintenance Insurance [employer] [facility] [employer] Care Teams Candy Maker Relationship Specialty Start Date End Date Massimo Mcclellan PA [address] [place] [address] PCP - General FAMILY MEDICINE, PA 05/13/22
--- OUTSIDE RECORDS SUMMARY | 2025-01-14 18:46 | XMS_ITS | Encounter Summary ---
Author Organization [facility] Address [address] [place] [address] Care Team Providers Care Head Men'S Tennis Coach Name Role Phone Massimo Mcclellan Primary Care Provider [phone] Reason for Referral * Endocrinology (Routine) - New Request Specialty Diagnoses / Procedures Referred By Yesi t Referred To Contact Endocrinology Diagnoses Type 2 diabetes mellitus with diabetic peripheral angiopathy without gangrene, with long-term current use of insulin Kobi Robert FNP [address] [place] [address] Phone: tel: fax: Referral ID Status Reason Start Date Expiration Date Visits Requested Visits Authorized [id number] New Request Specialty Services Required 01/09/2025 01/09/2026 1 1 Comments Hx Dm, please eval Lab Results Component Value Date HGBA1C 9.3 (H) 12/10/2024 * Neurology (Routine) - New Request Specialty Diagnoses / Procedures Referred By Contyovani t Referred To Contact Neurology Diagnoses Moderate vascular dementia with agitation Kobi Robert FNP [address] [place] [address] Phone: tel: fax: Referral ID Status Reason Start Date Expiration Date Visits Requested Visits Authorized [id number] New Request Specialty Services Required 01/09/2025 01/09/2026 1 1 Comments Vascular changes of brain on Rayus MRI with worsening memory- please eval Encounter Details Date Type Department Care Team (Late st Contact Info) Description 01/09/2025 Results Follow-Up [facility] [address] [place] [address] Kobi Robert FNP [address] [place] [address] Social History Tobacco Use Types Packs/Day Years [...] 4:00 PM EDT Office Visit [facility] [address] [place] [address] Massimo Mcclellan PA [address] [place] [address] Hillary Berkowitz [address] [place] [address] Scheduled Referrals Name Type Priority Associated Diagnoses Orde r Schedule REFERRAL TO NEUROLOGY Referral Routine Moderate vascular dementia with agitation ([facility]) Ordered: 01/09/2025 REFERRAL TO ENDOCRINOLOGY Referral Routine Type 2 diabetes mellitus with diabetic peripheral angiopathy without gangrene, with long-term current use of insulin ([facility]) Ordered: 01/09/2025 documented as of this encounter [...] documented as of this encounter Care Teams Head Men'S Tennis Coach Relationship Specialty Start Date End Date Massimo Mcclellan PA [address] [place] [address] PCP - General FAMILY MEDICINE PA 05/13/22 documented as of this encounter
== END 2025-01-14 15:50 | disposition home or self-care (01) ==
LOC: HO.HOSX 15:49
PROVIDERS: Visit Provider Physician Assistant
DX: Z13.89 Encounter for screening for other disorder (principal)

== ENCOUNTER 2025-02-14 11:05 | Outpatient (AMB) | payer OTHER, SELFPAY ==
--- OUTSIDE RECORDS SUMMARY | 2015-12-20 23:00 | XMS_ITS | Encounter Summary ---
Author Organization [facility] Address [address] [place] [address] Phone Care Team Providers Care Lens Generating Machine Tender Name Role Phone Florinda Nino MD Primary Care Provider Encounter Details Date Type Department Care Team (Late st Contact Info) Description 12/21/2015 Hospital Encounter [facility] [address] [place] [address] Del Sloan MD [address] [place] [phone] Social History Tobacco Use Types Packs/Day Years Used Date Smoking Tobacco: Never Smokeless Tobacco: Never Education Answer Date Recorded Are you interested in more education? Not on greyson e 08/05/2022 Are you concerned about learning? Not on file 08/05/2022 No 08/05/2022 No 08/05/2022 Digital Access Answer Date Recorded No 09/05/2022 No 09/05/2022 Reliable internet access at home? Not on file 09/05/2022 Device with a working camera? Not on file Comments Unknown Sex and Gender Information Value Date Recorded Sex Assigned at Not on file Legal Sex Female 4:02 PM EDT Gender Identity Not on file Sexual Orientation Not on file documented as of this encounter Plan of Treatment Not on file documented as of this encounter Procedures Procedure Name Priority Date/Time Associated Diagnosis Comments XR CHEST OUTSIDE WITH INTERPRETATION OR CONSULT Routine 12/21/2015 12:00 AM EDT documented in this encounter Results * XR Chest Outside With Interpretation Or Consult (12/21/2015 12:00 AM EDT) 12/21/2015 9:17 PM EDT Impressions [facility] - 12/21/2015 10:21 PM EDT IMPRESSION: No evidence of pneumonia or pulmonary edema. This report is limited to the body part and modality requested, regardless of which images were uploaded. If additional reports are required, please contact the appropriate Division of the Radiology Department. Narrative [facility] - 12/21/2015 10:21 PM EDT Two Views of the CHEST - Interpretation of Outside Imaging COMPARISON: None FINDINGS: Lungs: The lungs are well inflated with no evidence of pneumonia or pulmonary edema. Pleura: There is no pleural effusion or pneumothorax. Heart and mediastinum: No cardiomegaly. There is atherosclerotic calcification of the thoracic aorta. Bones/soft tissue: There are mild degenerative changes in the visualized spine. There are right upper quadrant cholecystectomy clips. Procedure Note Ana Gonzales MBBS - 12/21/2015 Two Views of the CHEST - Interpretation of Outside Imaging COMPARISON: None FINDINGS: Lungs: The lungs are well inflated with no evidence of pneumonia orpulmonary edema. Pleura: There is no pleural effusion or pneumothorax. Heart and mediastinum: No cardiomegaly. There is atheroscleroticcalcification of the thoracic aorta. Bones/soft tissue: There are mild degenerative changes in the visualizedspine. There are right upper quadrant cholecystectomy clips. IMPRESSION: IMPRESSION: No evidence of pneumonia or pulmonary edema. This report is limited to the body part and modality requested, regardlessof which images were uploaded. If additional reports are required, pleasecontact the appropriate Division of the Radiology Department. Del Sloan MD IMG OUTSIDE IMAGING W/ I NTERPRETATION Final Result [facility] [address] [facility] [place] [address] documented in this encounter Visit Diagnoses Not on filedocumented in this encounter Care Teams Lens Generating Machine Tender Relationship Specialty Start Date End Date Florinda Nino MD [address] [place] [phone] PCP - General Family Medicine 12/21/15 documented as of this encounter Additional Source Comments The information contained in this document represents components of the legal health record. It is not the complete legal health record.[facility]
--- OUTSIDE RECORDS SUMMARY | 2015-12-20 23:15 | XMS_ITS | Encounter Summary ---
Author Organization [facility] Address [address] [place] [address] Phone Care Team Providers Care Visiting Teacher Name Role Phone Florinda Nino MD Primary Care Provider Encounter Details Date Type Department Care Team (Late st Contact Info) Description 12/21/2015 12:15 AM EDT Hospital [facility] [address] [place] [address] Del Sloan MD [address] [place] [address] Social History Tobacco Use Types Packs/Day Years [...] AM EDT) 12/22/2015 8:35 AM EDT Impressions [facility] - 12/22/2015 11:02 AM EDT IMPRESSION: Extensive bilateral pulmonary emboli, with evidence of right ventricular strain. No evidence of pneumonia, pulmonary edema, or pulmonary infarct. This report is limited to the body part and modality requested, regardless of which images were uploaded. If additional reports are required, please contact the appropriate Division of the Radiology Department. Narrative [facility] - 12/22/2015 11:02 AM EDT EXAM: [...] I NTERPRETATION Final Result Performing Organization Address City/State/[facility] Co de Phone Number [facility] [address] [facility] [place] [address] documented in this encounter Visit Diagnoses Not on filedocumented in this encounter Care Teams Visiting Teacher Relationship Specialty Start Date End Date Florinda Nino MD [address] [place] [address] PCP - General Family Medicine 12/21/15 documented as of this encounter Additional Source Comments The information contained in this document represents components of the legal health record. It is not the complete legal health record.[facility]
--- OUTSIDE RECORDS SUMMARY | 2023-09-18 05:00 | XMS_ITS ---
Author Organization [facility] Address [address] [place] [phone] Care Team Providers Care Corporate Administrative Assistant Name Role Phone RICKY GARZA, DAISY Primary Care Provider Unavailable Amor Dobbins Jr Unavailable REASON FOR VISIT Patient presents today for intestinal issues Encounters Encounter Location Date Provider Diagnosis [facility] [address] [place] [phone] 09/18/2023 Amor Dobbins Jr Plan Of Treatment No Information Progress Notes * TOMMY CHOU EDOB:1945 (79 yo F)Acc No.[id number]:09/18/2023 Progress Notes Patient: MARTIN MICHELLEZ Arlin Provider: Francie Dobbins MD :1945 A ge:78 Y S ex:Female Date:09/18/2023 Address:[address] [place], [place] [phone] Pcp:Jake GALEANO Subjective: * Chief Complaints: * [...] * Provider: Francie Dobbins MD Date: 0 09/18/2023 Generated for Bradyi juvenal/Benjie/eTransmitting on: 04/16/2024 01:20 PM EST
--- OUTSIDE RECORDS SUMMARY | 2024-01-17 06:20 | XMS_ITS ---
Author Organization [facility] Address [address] [place] [phone] Care Team Providers Care Windows Software Developer Name Role Phone RICKY GARZA, DAISY Primary Care Provider Amor Gutierrez Jr REASON FOR VISIT INTESTINAL ISSUES Encounters Encounter Location Date Provider Diagnosis [facility] [address] [facility] [address] [place] [phone] 01/17/2024 Amor Dobbins Jr Plan Of Treatment No Information Progress Notes * TOMMY CHOU EDOB:1945 (79 yo F)Acc No.[id number]:01/17/2024 Progress Notes Patient: MARTIN MICHELLEZ Arlin Provider: Francie Dobbins MD :1945 A ge:78 Y S ex:Female Date:01/17/2024 Address:[address] [place], [place] [id number] Pcp:Jake GALEANO Subjective: * Chief Complaints: * 1 . INTESTINAL ISSUES. * Medical History: Objective: * Vitals: Assessment: Plan: * Treatment: * * The named appointment provid er may or may not be the originator of this progress note, and it is not deemed complete until electronically signed by the appointment provider. Sign off status: Pending * Provider: Francie Dobbins MD Date: Generated for Printi ng/Famatildeg/eTransmitting on: 04/16/2024 01:20 PM EST
[2025-02-14 11:14] VITALS: BP 114/50; PULSE 80; O2SAT 96; BMI 26.6
--- NOTE | 2025-02-14 11:14 | A.OFFVIS_ITS ---
Vital Signs 02/14/25 11:14 Height 5 ft 3 in Weight 149 lb 14.629 oz BMI 26.6 BP 114/50 L Blood Pressure Location Lt brachial Position Sitting Pulse 80 Pulse Source Pulse Oximeter Pulse Oximetry (%) 96 Oxygen Delivery Method Room Air Intake Visit Reasons: COPD Volunteer Services Supervisor Required: Yes Volunteer Services Supervisor Services: Volunteer Services Supervisor Offered & Declined Volunteer Services Supervisor Name: MD speaks vietnamese Allergies bee pollen (bee stings) Allergy (Severe, Verified 02/14/25 11:18) Anaphylaxis lidocaine (From LIDODERM) Allergy (Severe, Verified 02/14/25 11:18) BLISTERS from adhesive morphine (MORPHINE) Allergy (Severe, Verified 02/14/25 11:18) PO will cause itching, can tolerate IV Penicillins (PENICILLINS) Allergy (Severe, Verified 02/14/25 11:18) SWELLING/ITCHING ampicillin Allergy (Intermediate, Verified 02/14/25 11:18) rash/hives gabapentin (GABAPENTIN) Allergy (Intermediate, Verified 02/14/25 11:18) SORES IN MOUTH/AGITATION enalapril Adverse Reaction (Severe, Verified 02/14/25 11:18) hyperkalemia HPI Comments Details: The patient is a 79 year-old woman with a known history of pulmonary emboli with the family history. In addition to that she has a history of sleep apnea and asthma COPD overlap syndrome. Since we last spoke the patient has been complaining of multiple complaints. She does have leg swelling and pain. Mainly her left leg. 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 This is done at [facility]. Her D-dimer was elevated at the time. We did review her CT scan of the chest that demonstrated extensive blood clot with submassive PE due to the RV strain. She had been treated in [place] for that and did complete a course of Coumadin. She has no longer on any anticoagulation. She has been complaining worsening shortness of breath and chest pain. This discomfort is substernal in his about 4-10 in severity. Denies any radiation. Some respite phasic component. At this point is better. She did need to have an urgent CTA to rule out pulmonary emboli. The reading was that she did have sub subsegmental pulmonary emboli. I did look at the scan myself and I do think she had bilateral subsegmental pulmonary emboli. That night she was started on Eliquis. She has been tolerating the Eliquis without any side effects. Although she feels a little pale today feels like she could be anemic. We did review her blood work from the last visit demonstrating normal SABINO and normal CCP. Although her D-dimer was elevated does have she ended up with her CT scan of the chest. Her potassium was also elevated at the time. The patient has had multiple blood clots as well and now also positive family history with other extended family members. Therefore, is not a reasonable to at least check her prothrombin mutation and factor 5 Leiden. Her hemoglobin was down to about 9 from 12. She denies any active bleeding GI bleeding or any black stools. I am concerned because she is taking the blood thinner. She is scheduled for an upper and lower endoscopy. 05/27/2020 the patient is here for pulmonary follow-up visit. Overall she is doing lot better. She has recovered very well from the COVID infection that she had. Her last CT scan of the chest from March demonstrated some ground-glass opacities likely residual from her COVID infection. She continues on the Eliquis and seems to be tolerating the anticoagulation well. Denies any evidence of any recurrent clots. The patient was ambulated with a 6 minutes walk test and she maintain a pulse ox between 98%-99%. Heart rate also states stable within 80s to 90s. Her Brant score was lower on 05/20. Patient did very well walking with her cane. However, she has been very dizzy lately and she has had episodes of near falls. She needs to be very careful with her balance and always using her assistive device. The patient has struggled to use his CPAP. The CPAP therapy has been very difficult. Therefore, the patient will talk to her [employer] company about returning it. The patient will continue using oxygen at nighttime at 2 L. 12/28/2021 the patient is here for a pulmonary follow-up visit. Overall the patient seems to be doing relatively well from a respiratory status. She still complains of the substernal chest discomfort. She does respond well to nitroglycerin. She did follow-up with cardiology sometime in early December. Did describe the chest discomfort as a typical. She had a full cardiac workup without any evidence of any at the heart disease. The patient has complaining about bruising. She has been on Eliquis and also on Plavix. She has not noticed any hematuria or any issues with blood in the stool. A 1 point she did have significant anemia. the patient is concerned about the use of Plavix. I did look at the cardiology notes and was no mention of the use of Plavix. Therefore, I did tell the patient to hold the Plavix until she speaks to her primary care doctor to clarify if he does need to be on this medication. Med because concerns for risk of bleeding since she has had issues with anemia in the past. The patient has been having some reflux symptoms. I did send her additional Maalox in case her chest discomfort is related to esophageal spasms she is responding well to the Trelegy inhaler. She has not had to use his rescue inhaler and she has not required any prednisone. She continues use the oxygen with sleep. This has been affecting beneficial and she will continue for now. 04/12/2022 the patient has a telephone visit today. The daughter had called initially that the patient was feeling short of breath and also dizzy. She noted that her pulse ox was significantly low Around 60%. She also has a blood pressure cuff at home and she noted that her blood pressure was low with a systolic blood pressure in the 80s. However, the patient has been reluctant to go to the hospital. The patient states that the last time she went to the hospital she was waiting in the hallway and she is very uncomfortable. Recently she was diagnosed with UTI and was placed on antibiotics. She was also found to have kidney stones and she had to postpone the procedure due to her new symptoms. Based on the fact the patient hypoxic the daughter had called. We gave her telephone visit today. I did speak to the patient. She feels very drowsy and tired. Explained to the patient that is really important for her to go to the hospital and she is agreeable at this time. I did look at the blood work that she had at [facility]. Initially UTI demonstrated a Staph infection. I am concerned that she could be developing sepsis and therefore developing worsening respiratory failure in view of the sepsis. Therefore, be critical that she is evaluated in the ER. The daughter will take her to the hospital at this time. 05/13/2022 the patient is here for a pulmonary follow-up visit. The patient recently was discharged from the hospital. She was found to have kidney stones. Initially, she was admitted at [facility] and she was found to have kidney stones and hypotension. And she ended up admitted at [facility]. She had a repeat CT scan of the abdomen per report demonstrating resolution of the kidney stone. The patient is having significant discomfort of her right leg. This is causing significant discomfort. She has been taking Tylenol. She has to be careful with her cirrhosis. She continues use the oxygen at nighttime. she uses 2 L at nighttime. This has been affecting beneficial. The patient is to continue the oxygen at this time. 05/04/2023 the patient is here for a pulmonary follow-up visit. The patient overall has been feeling well from a respiratory status. Continues on the Eliquis 5 mg twice a day. The family is contemplating decreasing the medication to 2.5 twice a day. I believe this is reasonable request specially since her last CTA back in April 2022 did not demonstrate any evidence of any persistent clot. She does have some lower extremity discomfort to therefore will do a lower extremity Dopplers to make sure that she does not have any clot burden. And if is negative then we can see about decreasing the dose. In the meantime the patient also has issues with headaches in the morning. She was on oxygen at nighttime which she has no longer using it. Therefore, will go ahead and request an overnight oximetry to see if which is set her up with nocturnal oxygen at this time. She may still have some supplies left over from when she had [facility] respiratory. 09/01/2023 the patient is here for a pulmonary follow-up visit. The patient is doing okay from a respiratory status. She continues on the Trelegy inhaler with good effect. She does have a rescue inhaler but does not required often. The patient also has been taking her Eliquis for her history of thromboembolic disease. This be a lifelong therapy. Denies any minor major bleeding. She will continue the therapy for now. Her major issues her neck pain. She did go to a chiropractor the cost even worsening pain. She does take Motrin as needed does help her. She has been following closely with pain specialist elsewhere. But at this point they could not offer her anything else. Therefore, will go ahead and making a referral to the pain clinic here at the [facility]. The patient will continue current respiratory therapy will follow-up in 6 months. 03/04/2024 the patient is here for a pulmonary follow-up visit. Overall she is doing well from a respiratory status. She is still having severe neck pain. She was referred to pain and then subsequently referred to spine surgery. She is scheduled to undergo spine surgery tomorrow. She is off the Eliquis which we prefer 3 days and then she can restart the Eliquis after she recovers and she is able to start soon as surgery. The patient is ready for respiratory status her respiratory exam is normal and is reassuring. Therefore I do not have any limitations at this time. The patient may be able to proceed with surgery at this time. After she recovers from her surgery we did talk about her vaccines and since she is due for a few vaccines. I did this them out for her. The patient follow-up in 6-8 months. If she has any issues prior to that she will call for an earlier assessment. 09/06/2024 the patient is here for pulmonary follow-up visit. Overall she is doing although significant back neck pain. She did follow-up with her spine surgeon and ultimately is having issues with her cervical neck and does require to have resurgery. She is on Eliquis. She will have to stop the Eliquis 3 days before. 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 Therefore when she stops the Eliquis 3 days before she will go ahead and start Lovenox for bridge. I will send the medications to the pharmacy. Respiratory kirk the patient is doing well. She continues with her respiratory medications as prescribed. Will plan to follow-up in 6 months if she has any issues prior to that she will call for an earlier assessment. 02/14/2025 the patient is here for pulmonary follow-up visit. Overall the patient is doing okay. She is back on her Eliquis. She did try to have her back surgery but she could not tolerate it because of her significant osteoporosis and osteopenia. She is scheduled to have her results of a recent bone density test was he would also be done by that. For now she is trying to control her pain and just working with different alternatives. From a respiratory status she is doing well. She has not had any flare-ups from her respiratory disease. She continues on the Trelegy with good response. She has not required any prednisone which is reassuring. She has gotten her flu vaccines. Therefore, right now she is doing well follow-up in the fall of 2025 if any issues arise she can always call for an earlier assessment and recommendations. [facility] Medical History Mild aortic stenosis Sciatica Right ventricular dilation Pulmonary HTN Insomnia Positive PPD, treated Myofascial muscle pain Meniere disease Memory impairment assisted current use of anticoagulant therapy Left ventricular hypertrophy HTN (hypertension) Hyperlipidemia Hx pulmonary embolism Early onset Alzheimer dementia Incontinence of urine Dysphasia Diastolic dysfunction Type 2 diabetes mellitus with diabetic peripheral angiopathy without gangrene, with long-term current use of insulin Hx of deep venous thrombosis CKD (chronic kidney disease) stage 3, GFR 30-59 ml/min Cervical facet syndrome Kidney stone Calcium oxalate crystals present in urine Asthma-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 Depression Anemia Allergic rhinitis Hyperparathyroidism Osteoarthritis Fibromyalgia Hx of renal calculi Hx of seizure disorder Diabetes Cirrhosis GERD (gastroesophageal reflux disease) Nausea Dementia Anxiety RLS (restless legs syndrome) Peripheral venous insufficiency Osteopenia Esophageal varices Gastritis Mitral regurgitation Tricuspid regurgitation Hx of hepatitis C (~2008) Chronic anticoagulation Back pain AVM (arteriovenous malformation) of colon Pleuritis JENNIFER (obstructive sleep apnea) Abnormal chest x-ray Pneumonia COVID-19 (~12/2019) Pulmonary emboli COPD (chronic obstructive pulmonary disease) Surgical History Hx of fusion of cervical spine Hx of lithotripsy Hx of colonoscopy (12/11/19) History of esophagogastroduodenoscopy (EGD) (12/11/19) Hx of hysterectomy (~1974) Hx of parathyroidectomy (~2008) Hx of cholecystectomy (~1975) Hx of cataract extraction Social History Household Members Other:: friend Are you a primary long term care pharmacist to a significant other at home: No Do you presently have visiting nurse or other home services: Yes ([employer]) Patient Tobacco Use Status: Never used Tobacco Review of Systems Const Reports headache(s), Reports lethargy and Denies night sweats ENT Denies change in voice, Reports dizziness, Reports headache(s), Denies lip swelling, Denies mouth pain, Reports nasal congestion, Reports nasal discharge, Reports neck pain and Denies tongue swelling Card Denies chest pain, Denies dyspnea and Reports dyspnea on exertion Resp Reports cough, Denies dyspnea and Reports dyspnea on exertion GI Reports abdominal pain, Reports constipation and Reports GI cramping Reports as per HPI Musc Reports back pain, Reports limited range of motion, Reports muscle cramps, Reports neck pain and Reports radiating pain into limb Neuro Denies Neuro-related abnormal movements, Reports dizziness and Reports headache(s) Psych Denies no additional complaints Sebastian/Lymph Reports easy bleeding, Reports easy bruising and Denies lymphadenopathy Aller/Immun Denies lip swelling and Denies tongue swelling Physical Exam Vital Signs: Last Vital Signs Pulse 80 02/14/25 11:14 BP 114/50 L 02/14/25 11:14 Pulse Ox 96 02/14/25 11:14 Oxygen Delivery Method Room Air 02/14/25 11:14 BMI result Body Mass Index 26.6 Const General: alert HEENT Head: Yes normocephalic Neck Neck: Yes normal visual inspection, Yes full ROM and Yes no lymphadenopathy Chest Chest palpation & inspection: normal inspection of the chest, no localized rib tenderness and no tenderness Resp Effort & Inspection: normal respiratory effort Auscultation: no crackles, no rales, no rhonchi, no wheezes and diminished lung sounds Cardio Rate: regular rate Rhythm: regular rhythm Heart sounds: S1 normal heart sound present and S2 normal heart sound present GI Palpation (GI): Soft to palpation and nontender Auscultation: normal bowel sounds Skin General skin exam: no rashes or lesions noted Extrem General: Yes no clubbing, cyanosis or edema Assessment & Plan Assessment & Plan (1) COPD (chronic obstructive pulmonary disease): Code(s): J44.9 - Chronic obstructive pulmonary disease, unspecified Category: Medical Qualifiers: COPD type: chronic bronchitis Chronic bronchitis type: simple Qualified Code(s): J41.0 - Simple chronic bronchitis (2) Pulmonary emboli: 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 Code(s): I26.99 - Other pulmonary embolism without acute cor pulmonale Category: Medical Qualifiers: Acute cor pulmonale presence: without acute cor pulmonale Chronicity: chronic Pulmonary embolism type: unspecified Qualified Code(s): I27.82 - Chronic pulmonary embolism (3) Neck pain: Code(s): M54.2 - Cervicalgia Category: Medical Plan Continue Trelegy inhaler daily SONYA as needed Continue singular Eliquis for unprovoked clots after surgery-life long singulair Follow-up 8-12 months Coding Level of Care Code Est Pt Level 4 (19741) Complex EM visit Add On G2211 Diagnoses Simple chronic bronchitis J41.0 COPD type: chronic bronchitis Chronic bronchitis type: simple Chronic pulmonary embolism without acute cor pulmonale, unspecified pulmonary embolism type I27.82 Acute cor pulmonale presence: without acute cor pulmonale Chronicity: chronic Pulmonary embolism type: unspecified Neck pain M54.2 Time Spent (min) 17
--- OUTSIDE RECORDS SUMMARY | 2025-02-14 13:20 | XMS_ITS | Patient Health Record ---
Author Organization [facility] Address [address] [place] [id number] Care Team Providers Care Syrup Shed Supervisor Name Role Phone RICKY GARZA, DAISY [...] 1 tablet at bedtime Orally Once a day; Duration: 30 day(s) Active Nvvielpuyrg-Qkupzetvk-Kxxoly 100-62.5-25 MCG/INH 1 puff Inhalation Once a [...] be dtime as needed Orally Once a day; Duration: 30 day(s) Active oxyCODONE HCl 5 MG [...] MG 1 tablet Orally Twic e a day; Duration: 30 day(s) Active Flunisolide 25 MCG/ACT (0.025%) 2 sprays in each nostril Nasally Twice a day Unknown Esomeprazole Magnesium 40 MG 1 capsule O rally Once a day; Duration: 30 day(s) Active Celecoxib 200 MG 1 capsule with food Orally Twice a day Unknown Clopidogrel Bisulfate 75 MG 1 tablet Ora lly Once a day; Duration: 30 day(s) Active Enalapril Maleate 10 MG 1 tablet Orally Once a day; Duration: 30 day(s) Unknown Albuterol Sulfate 108 (90 Base) MCG/ACT 2 puffs as needed Inhalation every 6 hrs Unknown Capsaicin 0.025 % 1 application to affected area as needed Externally Three times a day Unknown Escitalopram Oxalate 20 MG 1 tablet Oral ly Once a day; Duration: 30 day(s) Active Furosemide 10 MG/ML 2 ml Orally Once a day; Duration: 30 day(s) Active Trulicity 0.75 MG/0.5ML as directed Subcutaneous Active Pravastatin Sodium 10 MG 1 tablet Orally Once a day; Duration: 30 day(s) Unknown Ondansetron 4 MG 1 tablet on the tong ue and allow to dissolve Orally Once a day; Duration: 30 day(s) Active metFORMIN HCl 500 MG Oral; Duration: 30 Unknown Ammonium Lactate 12 % 1 application Externally Twice a day Active hydroCHLOROthiazide 12.5 MG 1 capsule in the morning Orally Once a day Unknown amLODIPine Bes+SyrSpend SF 1 MG/ML 5 mL Orally Once a day; Duration: 30 day(s) Active Tresiba FlexTouch 200 UNIT/ML 105 units as directed Subcutaneous daily Unknown tiZANidine HCl 2 MG 1 tablet as needed Orally Three times a day Active Cholecalciferol 1000 UNIT 1 capsule Oral ly Once a day Unknown MiraLax (colon prep) 8.3 ounce ((238) grams mixed with Gatorade or Crystal Light orally begin at 5:00 p.m. the day before the procedure; Duration: 1 day 10/30/2019 Unknown Tamsulosin HCl 0.4 MG as directed Orally Active Loratadine 10 MG 1 tablet Orally Once a day Unknown Pantoprazole Sodium 40 MG TAKE 1 TABLET BY MOUTH DAILY Orally Once a day; Duration: 90 days Unknown Rosuvastatin Calcium 40 MG 1 tablet Oral ly Once a day; Duration: 30 day(s) Active NovoLOG FlexPen 100 UNIT/ML INJECT 15 50 UNITS PER SLIDING SCALE 3 TIMES A DAY BEFORE MEALS. Subcutaneous; Duration: 90 Unknown Acetaminophen 500 MG 2 tablets Orally ev lesia 6 hrs prn pain Unknown Stool Softener 100 MG Oral; Duration: 30 Unknown Vitamin D3 25 MCG (1000 UT) Oral; Duration: 90 Unknown Levocetirizine Dihydrochloride 5 MG 1 tablet in the evening Orally Once a day; Duration: 30 day(s) Active Calcium Citrate + D3 Maximum 315-250 MG-UNIT Oral; Duration: 90 Unknow n Eliquis 5 MG Oral; Duration: 30 Unknown Immunizations Vaccine Route Administration Date Status Comme nts Influenza Unknown 01/08/2019 Administered Influenza Unknown 01/09/2020 Administered Influenza Unknown 02/23/2021 Administered Problems Problem Type SNOMED Code ICD Code Onset Dates Problem Status W/U Status Risk Notes Problem Epigastric pain (49553105) Epigastric pain (R10.13) Active confirmed Problem Gastroesophageal reflux disease without esophagitis (422352827) Gastroesophageal reflux disease without esophagitis (K21.9) Active confirmed Problem Iron deficiency anemia (38027349) Iron deficiency anemia, unspecified iron deficiency anemia type (D50.9) Active confirmed Problem Anemia (914351689) Anemia, unspecified type (D64.9) Active confirmed Problem Dysphagia (37186556) Dysphagia, unspecified type (R13.10) Active confirmed Problem Cirrhosis - non-alcoholic (283258359) Cirrhosis of liver without ascites, 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) Active confirmed Plan Of Treatment Pending Test [...] Insured Coverage Start Date Coverage End Date [facility] [address] [place] [phone] [id number] TOMMY CHOU Self - patient is the [...]
--- OUTSIDE RECORDS SUMMARY | 2025-02-14 13:20 | XMS_ITS | Clinical Summary ---
Author Organization [facility] Address [address] [place] [phone] Phone Care Team Providers Care Content Assistant Name Role Phone Florinda Nino MD Primary [...] Comments POTASSIUM Routine 12/25/2015 3:10 AM EDT CREATININE WITH ESTIMATED GLOMERULAR FILTRATION RATE (EGFR) Routine 12/25/2015 3:10 AM EDT LIPID PANEL Routine 12/23/2015 6:15 AM EDT from Last 3 Months or Most Recently Relevant to Health Maintenance Results * Creatinine/eGFR (12/25/2015 3:10 AM EDT) CREATININE 0.84 0.60 - 1.50 mg/dL [facility] EGFR >60 mL/min/1.7 3m2 [facility] Comment:Abnormal if <60 mL/m in/1.73m2. If patient is -Russian, multiply the result by 1.21. Blood 12/25/2015 3:10 AM EDT 12/25/2015 3:15 AM EDT To Arroyo MD LAB BLOOD BKR ORDERABLES Final R esult Performing Organization Address [facility] Co de Phone Number [address] [address] * Potassium (12/25/2015 3:10 AM EDT) POTASSIUM 4.1 3.4 - 5.0 mmol/L [facility] Blood 12/25/2015 3:10 AM EDT 12/25/2015 3:15 AM EDT To Arroyo MD LAB BLOOD BKR ORDERABLES Final R esult Performing Organization Address [facility] Co de Phone Number [address] [address] * (ABNORMAL) Lipid panel (12/23/2015 6:15 AM EDT) HDL 33(L) 35 - 100 mg/dL [facility] CHOLESTEROL 169 mg/dL [facility] Comment:DESIRABLE: <200 TRIGLYCERIDES 149 40 - 150 mg/dL [facility] LDL 106 mg/dL [facility] Comment:DESIRABLE: <130 CARDIAC RISK RATIO 5.1 [facility] Comment:NORMAL RISK RATIO: 5 .0 OR LESS 12/23/2015 6:15 AM EDT 12/23/2015 6:48 AM EDT Rishi Lindsey MD LAB BLOOD BKR ORDERABLES Fin al Result Performing Organization Address [facility] Co de Phone Number [address] [address] from Last 3 Months or Most Recently Relevant to Health Maintenance Insurance Member Subscriber Plan / Payer (Ef fective 2015-Present) Name:Leonie Corea Relation to Subscriber:Self Name:Leonie Corea Payer ID:[id number] (NAIC) Group ID:Not on file Type:Medicare [address] [facility] [address] [facility] MEDICARE REPLACEMENT [address] [id number] [place] [id number] Advance Directives For more information, please contact: [phone] (9AM - 5PM [facility], Monday-Monday) Documents on File Type Date Recorded Patient Binding Cutter Synthetic Cloth Expl anation Healthcare Proxy 12/29/2015 10:38 AM Debroah d 01/23/2012 MOLST 12/29/2015 10:38 AM Signed * Full Code (Presumed) (Latest Code Status on File) Date Activated Date Inactivated Comments 12/21/2015 11:58 PM 12/25/2015 6:54 PM Care Teams Content Assistant Relationship Specialty Start Date End Date Florinda Nino MD [address] [place] [id number] PCP - General Family Medicine 12/21/15 Additional Source Comments The information contained in this document represents components of the legal health record. It is not the complete legal health record.[facility]
--- OUTSIDE RECORDS SUMMARY | 2025-02-14 13:21 | XMS_ITS | Patient Health Record ---
Author Organization [facility] Address [address] [place] [address] Care Team Providers Care Retail Marketing Coordinator Name Role Phone Massimo Figueroa Primary Care Provider Unavail able Miguel A Layne Unavailable [phone] Allergies Allergen (clinical drug ingredient) Drug/Non Drug [...] Active Celecoxib 200 MG (Prior Auth: Rx Ref#:[id number]) Oral; Duration: 30 Not-Taking Tresiba Active DULoxetine HCl 60 MG (Prior Auth: Rx Ref#:[id number]) Oral; Duration: 30 Not-Taking NovoLOG Active Enalapril Maleate 10 MG (Prior Auth: Rx Ref#:[id number]) Oral; Duration: 90 Not-Taking Acetaminophen Extra Strength 500 MG (Prior Auth: Rx Ref#:[id number]) Oral; Duration: 13 Active Gabapentin 400 MG (Prior Auth: Rx Ref#:[id number]) Oral; Duration: 90 Not-Taking Albuterol Sulfate (2.5 MG/3ML) 0.083% (Prior Auth: Rx Ref#:[id number]) Inhalation; Duration: 10 Active Ferrous Sulfate 325 (65 Fe) MG 1 tablet Orally Once a day; Duration: 30 day(s) Not-Taking Capsaicin 0.025 % 1 application to affected area as needed Externally Three times a day Active Fluticasone Furoate 200 MCG/ACT 1 puff Inhalation Once a day Active hydroCHLOROthiazide 12.5 MG (Prior Auth: Rx Ref#:[id number]) Oral; Duration: 30 Active Polyethylene Glycol 3350 - as directed Active Flunisolide 25 MCG/ACT (0.025%) (Prior Auth: Rx Ref#:[id number]) Nasal; Duration: 25 Active Extra Depth Orthopedic Shoes (1 Pair) with Customized Heat Molded Multidensity Innersoles (3 Pair) as directed Dx: IDDM/Polyneuropathy (E10.42), Hammertoe Foot Deformity (M20.41,M20.42), Preulcerative Skin Lesion(s) (L85.1) 01/12/2023 Active Loratadine 10 MG (Prior Auth: Rx Ref#:[id number]) Oral; Duration: 90 Active Montelukast Sodium 10 MG (Prior Auth: Rx Ref#:[id number]) Oral; Duration: 30 Active oxyCODONE HCl 5 MG (Schedule II Drug) (Prior Auth: Rx Ref#:[id number]) Oral; Duration: 28 Active Pantoprazole Sodium 40 MG (Prior Auth: R x Ref#:[id number]) Oral; Duration: 30 Active Pravastatin Sodium 10 MG (Prior Auth: Rx Ref#:[id number]) Oral; Duration: 30 Active Aspirin Low Dose 81 MG (Prior Auth: Rx Ref#:[id number]) Oral; Duration: 90 Not-Taking Citracal + D [...] Problem Acquired hammer toe of right foot (2910486789844481 ) Other hammer toe(s) (acquired), right foot (M20.41) Active confirmed Problem Acquired hammer toe of left foot (2778119878995600 ) Other hammer toe(s) (acquired), left foot (M20.42) Active confirmed Problem Polyneuropathy due to diabetes mellitus type I (513991190) Type 1 diabetes mellitus with diabetic polyneuropathy (E10.42) Active confirmed Plan Of Treatment Pending Test Test Name Order Date X ray : Foot, left 3V 12/18/2018 X ray : Foot, right 3V 12/18/2018 [id number] NAIL, 6 OR MORE 11/10/2021 [id number] NAIL, 6 OR MORE 01/12/2023 39649-CVKX SKIN LESIONS, OVER 4 01/13/20 23 91189-HPKP SKIN LESIONS, OVER 4 11/11/19 22 39953-QVDP SKIN LESIONS, OVER 4 09/19/19 19 25787-KRNM SKIN LESIONS, OVER 4 12/19/19 19 08478-LVFE SKIN LESIONS, OVER 4 03/26/20 19 22789-PIPC SKIN LESIONS, OVER 4 09/09/19 21 71487-QPWR SKIN LESIONS, OVER 4 06/12/19 22 Insurance Providers Payer Name Payer Address Payer Phone Subscriber Number Group Number Insured Name Patient Relationship to Insured Coverage Start Date Coverage End Date [facility] [employer] Claims [address] [place] [id number] Leonie Corea Self - patient is the [...] History Reason Date(Month/Year) [facility]- check her heart [facility] for kidney stones 05/01
== END 2025-02-14 11:46 | disposition home or self-care (01) ==
LOC: HO.HPS 11:06
PROVIDERS: PCP Physician Assistant; Visit Provider Hospitalist
DX: J41.0 Simple chronic bronchitis (principal); I27.82 Chronic pulmonary embolism; M54.2 Cervicalgia
CPT/HCPCS: 99214; G2211

== ENCOUNTER → 2025-02-14 11:05 | Outpatient (BNVA) | payer OTHER, SELFPAY | PROVIDERS: PCP Physician Assistant; Visit Provider Hospitalist | DX: J41.0 Simple chronic bronchitis (principal); I27.82 Chronic pulmonary embolism; R07.9 Chest pain, unspecified; M54.2 Cervicalgia; Z79.01 Long term (current) use of anticoagulants | CPT/HCPCS: 99212 ==

== ENCOUNTER 2025-04-07 13:10 | Outpatient (AMB) | payer OTHER, SELFPAY ==
--- OUTSIDE RECORDS SUMMARY | 2015-12-20 23:00 | XMS_ITS | Encounter Summary ---
Author Organization [facility] Address [address] [place] [address] Phone Care Team Providers Care Manager Engagement Name Role Phone Florinda Nino MD Primary Care Provider Encounter Details Date Type Department Care Team (Late st Contact Info) Description 12/21/2015 Hospital Encounter [facility] Imaging [address] [place] [address] Del Sloan MD [address] [place] [phone] Social History Tobacco Use Types Packs/Day Years [...] AM EDT) 12/21/2015 9:17 PM EDT Impressions [facility] [place] - 12/21/2015 10:21 PM EDT IMPRESSION: No evidence of pneumonia or pulmonary edema. This report is limited to the body part and modality requested, regardless of which images were uploaded. If additional reports are required, please contact the appropriate Division of the Radiology Department. Narrative [facility] [place] - 12/21/2015 10:21 [...] OUTSIDE IMAGING W/ I NTERPRETATION Final Result [facility] [address] [place] [address] documented in this encounter Visit Diagnoses Not on filedocumented in this encounter Care Teams Manager Engagement Relationship Specialty Start Date End Date Florinda Nino MD [address] [place] [address] PCP - General Family Medicine 12/21/15 documented as of this encounter Additional Source Comments The information contained in this document represents components of the legal health record. It is not the complete legal health record.[facility]
--- OUTSIDE RECORDS SUMMARY | 2015-12-20 23:15 | XMS_ITS | Encounter Summary ---
Author Organization [facility] Address [address] [place] [address] Phone Care Team Providers Care Orange Picker Machine Operator Name Role Phone Florinda Nino MD Primary Care Provider Encounter Details Date Type Department Care Team (Late st Contact Info) Description 12/21/2015 12:15 AM EDT Hospital En[facility] [address] [place] [address] Del Sloan MD [address] [place] [address] Social History Tobacco Use Types Packs/Day Years [...] Procedure Name Priority Date/Time Associated Diagnosis Comments CT VASCULAR OUTSIDE WITH INTERPRETATION OR CONSULT Routine 12/21/2015 12:15 AM EDT documented in this encounter Results * CT Vascular Outside With Interpretation Or Consult (12/21/2015 12:15 AM EDT) 12/22/2015 8:35 AM EDT Impressions [facility] [place] [facility] - 12/22/2015 11:02 AM EDT IMPRESSION: Extensive bilateral pulmonary emboli, with evidence of right ventricular strain. No evidence of pneumonia, pulmonary edema, or pulmonary infarct. This report is limited to the body part and modality requested, regardless of which images were uploaded. If additional reports are required, please contact the appropriate Division of the Radiology Department. Narrative [facility] [place] [facility] - 12/22/2015 11:02 AM EDT EXAM: Interpretation of outside images of the chest with intravenous contrast performed on 12/21/2015 COMPARISON: None. FINDINGS: PULMONARY ARTERIES: There are large bilateral pulmonary emboli involving bilateral pulmonary arteries and lobar branches as well as multiple segmental and subsegmental branches. The main pulmonary artery diameter proximal to the bifurcation is 2.6 cm. The RV to LV ratio is approximately 1.1 to 1.0 suggestive of right heart strain. LINES/TUBES: None. LUNGS AND AIRWAYS: Images are degraded by respiratory motion and expiratory phase of imaging, limiting evaluation for small pulmonary nodules.. The central airways are patent. There is no evidence of pneumonia or pulmonary edema. PLEURA: The pleural spaces are clear. HEART AND MEDIASTINUM: The visualized thyroid gland appears normal. No mediastinal, hilar or axillary lymphadenopathy. Incidental note is made of an aberrant right subclavian artery. There is a separate origin of left vertebral artery off of the aortic arch, a normal anatomic variant. There is atherosclerotic calcification of the aorta and coronary arteries. The cardiac chambers are normal in size. No pericardial effusion. SOFT TISSUES: Normal. ABDOMEN: Limited views of the visualized portion of the upper abdomen are unremarkable, aside from cholecystectomy clips. BONES: There are degenerative changes of the visualized spine. No suspicious lytic or blastic lesions. Procedure Note Saira Cano MD - 12/22/2015 EXAM: Interpretation of outside images of the chest with intravenouscontrast performed on 12/21/2015 COMPARISON: None. FINDINGS: PULMONARY ARTERIES: There are large bilateral pulmonary emboli involving bilateral pulmonary arteries and lobar branches as well as multiplesegmental and subsegmental branches. The main pulmonary artery diameter proximal tothe bifurcation is 2.6 cm. The RV to LV ratio is approximately 1.1 to 1.0suggestive of right heart strain. LINES/TUBES: None. LUNGS AND AIRWAYS: Images are degraded by respiratory motion andexpiratory phase of imaging, limiting evaluation for small pulmonary nodules.. Thecentral airways are patent. There is no evidence of pneumonia or pulmonaryedema. PLEURA: The pleural spaces are clear. HEART AND MEDIASTINUM: The visualized thyroid gland appears normal. No mediastinal, hilar or axillary lymphadenopathy. Incidental note is made ofan aberrant right subclavian artery. There is a separate origin of leftvertebral artery off of the aortic arch, a normal anatomic variant. There is atherosclerotic calcification of the aorta and coronary arteries. Thecardiac chambers are normal in size. No pericardial effusion. SOFT TISSUES: Normal. ABDOMEN: Limited views of the visualized portion of the upper abdomenare unremarkable, aside from cholecystectomy clips. BONES: There are degenerative changes of the visualized spine. Nosuspicious lytic or blastic lesions. IMPRESSION: IMPRESSION: Extensive bilateral pulmonary emboli, with evidence of right ventricularstrain. No evidence of pneumonia, pulmonary edema, or pulmonary infarct. This report is limited to the body part and modality requested, regardlessof which images were uploaded. If additional reports are required, pleasecontact the appropriate Division of the Radiology Department. Del Sloan MD IMG OUTSIDE IMAGING W/ I NTERPRETATION Final Result Performing Organization Address City/State/[facility] Co de Phone Number [facility] [address] [facility] [place] [address] documented in this encounter Visit Diagnoses Not on filedocumented in this encounter Care Teams Orange Picker Machine Operator Relationship Specialty Start Date End Date Florinda Nino MD [address] [place] [address] PCP - General Family Medicine 12/21/15 documented as of this encounter Additional Source Comments The information contained in this document represents components of the legal health record. It is not the complete legal health record.[facility]
--- OUTSIDE RECORDS SUMMARY | 2025-04-04 23:59 | XMS_ITS | Continuity of Care Document ---
Author Organization [facility] Address [address] [place] [id number]- Care Team Providers Care Block Trimmer Name Role Phone Massimo Figueroa Primary Care Physician [phone] Encounter [facility] Date(s): 03/05/25 - 04/04/25 [facility] [address] [place] [id number] Encounter Type: Triage Allergies, Adverse Reactions, Alerts Substance Criticality Severity Reaction Reaction Severity Status enalapril hyperkalemia Active Lidocaine, Topical A ctive penicillin RASH Active morphine itchy Active Bactrim 1 hyperkalemia Active Bee Stings Active 1Hyperkalemia when used together with lisinopril [...] virus vaccine, inactivated 6 05/06/04 Gi zeny [id number] 12y+ bivalent booster vax 05/25/22 Given zoster vaccine, inactivated 12/08/21 Given zoster vaccine, inactivated 09/15/21 Given SARS-CoV-2 mRNA ([id number]) vax 09/15/21 Given SARS-CoV-2 (COVID-19) mRNA BNT-162b2 [...] Note: ADMINISTERED BY R.NLizbet 7Result Comment: Masood RUAVLCABA RN 8Result Comment: Given by Leonie Garcia [...] 100 tablet, 11 Refills, Maintenance, 05/25/22 12:08:00 PM EST, ER Tablet, [id number], Discontinue Motrin, 158, cm, 05/25/22 11:12:00 EST, Height, 76, kg, 05/07/22 6:04:00 EST, Dry Weight Start Date: 05/25/22 Status: Ordered Medication Dispense Status: Completed Quantity: 100.0 Unit: tablet Total Allowed Fills: 12 Fills Dispensed: 0 Alcohol Wipes See Instructions, # 400 each, Refills 4, Tot. Refills 4, Maintenance, Use inject insulin and check blood sugar up to 5 times daily. E11.9, IDDM, 11/24/22 4:02:00 PM EDT, Compound, 158, cm, 11/24/22 8:48:00 EDT, Height, 76, kg, 05/07/22 6:04:00 EST, Dry Weight Start Date: 11/24/22 Status: Ordered Medication Dispense Status: Completed Quantity: 400.0 Unit: each Total Allowed Fills: 5 Fills Dispensed: 0 Indications: Type 2 diabetes mellitus without complications; amLODIPine 10 mg oral tablet 10 mg, 1, tablet, By Mouth, Daily, Refills 0, Maintenance, 03/08/23 10:31:00 AM EST, Partial fill upon patient request if the prescription is for a schedule II opioid drug. Start Date: 03/08/23 Status: Ordered Medication Dispense Status: Completed Total Allowed Fills: 1 Fills Dispensed: 0 ammonium lactate 12% topical cream 1 applicator, Topically, 2 times a day, # 280 Gm, 11 Refills, Maintenance, 07/21/21 12:43:00 PM EDT,[facility]/pharmacy #[id number], 1 applicator Topically 2 times a day, 160, cm, 07/21/21 10:22:00 EDT, Height, 80.6, kg, 06/03/20 19:00:00 EST, Dry Weight Start Date: 07/21/21 Status: Ordered Medication Dispense Status: Completed Quantity: 280.0 Unit: g Total Allowed Fills: 12 Fills Dispensed: 0 atorvastatin 20 mg oral tablet 1 tablet = 20 mg, By Mouth, Daily, 0 Refills, Maintenance, 03/20/24 3:26:00 PM EST, Partial fill upon patient request if the prescription is for a schedule II opioid drug. Start Date: 03/20/24 Status: Ordered Medication Dispense Status: Completed Total Allowed Fills: 1 Fills Dispensed: 0 Baqsimi Two Pack 3 mg nasal powder = 3 mg, Naris, Right, Once, Please use for a low blood sugar emergency, may repeat in 15 minutes, #1 each, 3 Refills, Soft Stop, 03/09/22 11:35:00 AM EST, [facility]/pharmacy #[id number], 160, cm, 03/09/22 10:43:00 EST, Height, 78, kg, 01/14/22 19:37:00 EDT, Dry Weight Start Date: 03/09/22 Status: Ordered Medication Dispense Status: Completed Quantity: 1.0 Unit: each Total Allowed Fills: 4 Fills Dispensed: 0 Indications: Type 2 diabetes mellitus without complications; Biotene Moisturizing Mouth oral spray See Instructions, [place] directly into mouth; spray is safe to swallow as needed for dry mouth, # 45mL, 11 Refills, Maintenance, 05/25/22 12:42:00 PM EST, [facility]/pharmacy #[id number], Partial fill upon patientrequest if the prescription is for a schedule II opioid drug., [place] directly into mouth; spray is safe to swallow as needed for dry mouth, 158, cm, 05/25/22 11:12:00 EST, Height, 76, kg, 05/07/22 6:04:00 EST, Dry Weight Start Date: 05/25/22 Status: Ordered Medication Dispense Status: Completed Quantity: 45.0 Unit: mL Total Allowed Fills: 12 Fills Dispensed: 0 Boost Glucose Control Boost Glucose Control, 1 can, By Mouth, 3 times a day, # 90 each, Refills 11, Tot. Refills 11, Maintenance, indication: malnutrition E46, DM type 2 E11.9, 04/23/22 2:32:00 PM EST, Supply Start Date: 04/23/22 Stop Date: 04/18/23 Status: Ordered Medication Dispense Status: Completed Quantity: 90.0 Unit: each Total Allowed Fills: 12 Fills Dispensed: 0 busPIRone 15 mg oral tablet See Instructions, TAKE 1/3- 1/2 HALF TABLET IN THE MORNING AND IN P.M. NEEDED & 1 TAB AT [place], # 180 tablet, 1 Refills, Maintenance, 08/05/22 12:49:00 PM EDT, [facility] STORE [id number], 158, cm, 07/12/22 11:54:00 EDT, Height, 76, kg, 05/07/22 6:04:00 EST, Dry Weight Start Date: 08/05/22 Status: Ordered Medication Dispense Status: Completed Quantity: 180.0 Unit: tablet Total Allowed Fills: 1 Fills Dispensed: 0 capsaicin 0.025% topical cream 1 application, Topically, 3 times a day, # 35 Gm, 11 Refills, Maintenance, 07/21/21 12:26:00 PM EDT,Cream, [facility]/pharmacy #[id number], 1 application Topically 3 times a day, 160, cm, 07/21/21 10:22:00 EDT, Height, 80.6, kg, 06/03/20 19:00:00 EST, Dry Weight Start Date: 07/21/21 Status: Ordered Medication Dispense Status: Completed Quantity: 35.0 Unit: g Total Allowed Fills: 12 Fills Dispensed: 0 Compression- Lower Extremity (Knee High) See Instructions, # 2 each, Refills 11, Tot. Refills 11, Maintenance, use daily; closed toes; 10-20mmHg. Dx peripheral vascular insufficiency I 87.2, 07/21/21 12:36:00 PM EDT, Compound Start Date: 07/21/21 Status: Ordered Medication Dispense Status: Completed Quantity: 2.0 Unit: each Total Allowed Fills: 12 Fills Dispensed: 0 DexCom G7 Air Intelligence Specialist DexCom G7 Air Intelligence Specialist, See Instructions, # 1 each, Refills 0, Tot. Refills 0, Maintenance, Use to continuously monitor BG and use with Dexcom G7 sensors E11.9, 01/31/25 10:04:00 AM EDT, aware needs a PA, PA has been initiated, Supply, 160, cm, 01/23/25 13:23:00 EDT, Height, 67.2, kg, 05/14/24 11:38:00EST, Dry Weight Start Date: 01/31/25 Status: Ordered Medication Dispense Status: Completed Quantity: 1.0 Unit: each Total Allowed Fills: 1 Fills Dispensed: 0 DexCom G7 sensors DexCom G7 sensors, See Instructions, # 9 each, Refills 3, Tot. Refills 3, Maintenance, Use to continuously monitor blood sugar and change sensor every 10 days E11.9, 01/31/25 10:04:00 AM EDT, aware needs a PA, PA has been initiated, Supply, 160, cm, 01/23/25 13:23:00 EDT, Height, 67.2, kg, 05/14/2510:38:00 EST, Dry Weight Start Date: 01/31/25 Status: Ordered Medication Dispense Status: Completed Quantity: 9.0 Unit: each Total Allowed Fills: 4 Fills Dispensed: 0 Eliquis 5 mg oral tablet 1 tablet = 5 mg, By Mouth, 2 times a day, # 60 tablet, 5 Refills, Maintenance, 06/06/22 9:56:00 AM EST, Tablet, Partial fill upon patient request if the prescription is for a schedule II opioid drug. Start Date: 06/06/22 Status: Ordered Medication Dispense Status: Completed Quantity: 60.0 Unit: tablet Total Allowed Fills: 1 Fills Dispensed: 0 escitalopram 20 mg oral tablet 1 tablet = 20 mg, By Mouth, Daily, # 30 tablet, 11 Refills, Maintenance, 12/06/21 3:04:00 PM EDT, Tablet, [facility], Partial fill upon patient request if the prescription is for a schedule II opioid drug., 160, cm, 11/23/21 14:47:00 EDT, Height, 80.5, kg, 11/05/21 9:50:00 EDT, Dry Weight Start Date: 12/06/21 Status: Ordered Medication Dispense Status: Completed Quantity: 30.0 Unit: tablet Total Allowed Fills: 12 Fills Dispensed: 0 esomeprazole 40 mg oral enteric coated capsule See Instructions, TAKE 1 CAPSULE BY MOUTH DAILY 30 MINUTES BEFORE BREAKFAST, # 30 capsule, 2 Refills, Maintenance, 02/02/23 11:24:00 AM EDT Start Date: 02/02/23 Status: Ordered Medication Dispense Status: Completed Quantity: 30.0 Unit: capsule Total Allowed Fills: 3 Fills Dispensed: 0 famotidine 40 mg oral tablet 1 tablet = 40 mg, By Mouth, Daily at bedtime, If 40 mg tablet is not available, can be changed to 20 mg tablet 2 tablet at bedtime, # 90 tablet, 3 Refills, Maintenance, 07/12/21 6:53:00 PM EDT, Tablet,[facility]/pharmacy #[id number], Discontinue 30- day supply prescription., 160, cm, 06/21/21 9:57:00 EDT, Height,80.6, kg, 06/03/20 19:00:00 EST, Dry Weight Start Date: 07/12/21 Stop Date: 07/07/22 Status: Ordered Medication Dispense Status: Completed Quantity: 90.0 Unit: tablet Total Allowed Fills: 4 Fills Dispensed: 0 ferrous sulfate 325 mg oral tablet 1 tablet = 325 mg, By Mouth, Daily, May take with food to minimize abdominal discomfort. Do not take with milk. Take preferrably with juice., # 90 tablet, 3 Refills, Maintenance, 09/15/21 8:56:00 AM EDT, [facility]/pharmacy #[id number], 160, cm, 09/15/21 8:15:00 EDT, Height, 80.6, kg, 06/03/20 19:00:00 EST, Dry Weight Start Date: 09/15/21 Status: Ordered Medication Dispense Status: Completed Quantity: 90.0 Unit: tablet Total Allowed Fills: 4 Fills Dispensed: 0 Freestyle Lite Test Strips See Instructions, # 150 each, Refills 11, Tot. Refills 11, Maintenance, Check up to 5 times daily. E11.65, 02/20/23 8:21:00 AM EST, Compound, 160, cm, 02/04/23 11:08:00 EDT, Height, 78, kg, 02/02/23 18:32:00 EDT, Dry Weight Start Date: 02/20/23 Stop Date: 02/15/24 Status: Ordered Medication Dispense Status: Completed Quantity: 150.0 Unit: each Total Allowed Fills: 12 Fills Dispensed: 0 Glucose Tablets See Instructions, # 100 tablet, Refills 5, Tot. Refills 5, Maintenance, Chew 4 tablets as needed for blood sugar less than 70., 11/24/22 4:02:00 PM EDT, Compound, 158, cm, 11/24/22 8:48:00 EDT, Height, 76, kg, 05/07/22 6:04:00 EST, Dry Weight Start Date: 11/24/22 Status: Ordered Medication Dispense Status: Completed Quantity: 100.0 Unit: tablet Total Allowed Fills: 6 Fills Dispensed: 0 Indications: Type 2 diabetes mellitus without complications; Golytely - oral powder for reconstitution See Instructions, split prep, drink half after 5pm evening before procedure, finish remaining half 6 hours prior to procedure time, # 4,000 mL, 0 Refills, Maintenance, 05/02/24 10:24:00 AM EST, [facility]/pharmacy #[id number], Partial fill upon patient request if the prescription is for a schedule II opioid drug., split prep, drink half after 5pm evening before procedure, finish remaining half 6 hours prior toprocedure time, 160, cm, 03/22/24 16:15:00 EST, Height, 69, kg, 11/09/23 17:25:00 EDT, Dry Weight Start Date: 05/02/24 Status: Ordered Medication Dispense Status: Completed Quantity: 4000.0 Unit: mL Total Allowed Fills: 1 Fills Dispensed: 0 ibuprofen 200 mg oral capsule 1 capsule = 200 mg, By Mouth, Every 6 hours, 0 Refills, Maintenance, 06/26/24 1:01:00 PM EDT, Partial fill upon patient request if the prescription is for a schedule II opioid drug. Start Date: 06/26/24 Status: Ordered Medication Dispense Status: Completed Total Allowed Fills: 1 Fills Dispensed: 0 isosorbide mononitrate 30 mg oral tablet, extended release See Instructions, LUCIANO GAGE TABLETA POR VIA ORAL CADA MANANA, # 90 tablet, 0 Refills, Maintenance, 07/08/22 9:47:00 AM EDT, [facility] STORE [id number], 158, cm, 06/16/22 11:27:00 EST, Height, 76, kg, 05/07/22 6:04:00 EST, Dry Weight Start Date: 07/08/22 Status: Ordered Medication Dispense Status: Completed Quantity: 90.0 Unit: tablet Total Allowed Fills: 1 Fills Dispensed: 0 Januvia 100 mg oral tablet 1 tablet = 100 mg, By Mouth, Daily, in the morning, # 30 tablet, 5 Refills, Maintenance, 03/05/25 12:12:00 PM EST, Tablet, [facility]/pharmacy #[id number], eGFR 67 (03/04/25), 160, cm, 03/04/25 8:16:00 EST, Height, 67.2, kg, 05/14/24 11:38:00 EST, Dry Weight Start Date: 03/05/25 Status: Ordered Medication Dispense Status: Completed Quantity: 30.0 Unit: tablet Total Allowed Fills: 6 Fills Dispensed: 0 ketotifen 0.025% ophthalmic solution 1 drops, Eyes, Both, Every 12 hours, PRN as needed for eye allergy, # 7.5 mL, 11 Refills, Maintenance, 06/25/21 8:34:00 AM EDT, [facility]/pharmacy #[id number], 1 drops Eyes, Both Every 12 hours,PRN:as needed for eye allergy, 160, cm, 06/21/21 9:57:00 EDT, Height, 80.6, kg, 06/03/20 19:00:00 EST, Dry Weight Start Date: 06/25/21 Status: Ordered Medication Dispense Status: Completed Quantity: 7.5 Unit: mL Total Allowed Fills: 12 Fills Dispensed: 0 Lancets See Instructions, # 150 each, Refills 11, Tot. Refills 11, Maintenance, use 4 xday for blood sugar testing DM type 2 insulin dependent, hyperglycemia/ hypoglycemia Free Style Lite ICD10 E11.65/E11.649, Z 79.4, Diabetes mellitus type2, 05/01/23 11:26:00 AM EST, Fill when patient request it, Compound,160, cm, 03/23/23 11:35:00 EST, Height, 78, kg, 02/02/23 18:32:00 EDT, Dry Weight Start Date: 05/01/23 Status: Ordered Medication Dispense Status: Completed Quantity: 150.0 Unit: each Total Allowed Fills: 12 Fills Dispensed: 0 levocetirizine 5 mg oral tablet See Instructions, TAKE 1 TABLET BY MOUTH DAILY BEFORE DINNER NEEDED FOR ALLERGIES, # 90 tablet, 0 Refills, Maintenance, 04/18/23 1:50:00 AM EST, [facility]/pharmacy #[id number], 90, TAKE 1 TABLET BY MOUTH DAILY BEFORE DINNER NEEDED FOR ALLERGIES, 160, cm, 03/23/23 11:35:00 EST, Height, 78, kg, 02/02/23 18:32:00 EDT, Dry Weight Start Date: 04/18/23 Status: Ordered Medication Dispense Status: Completed Quantity: 90.0 Unit: tablet Total Allowed Fills: 1 Fills Dispensed: 0 LORazepam 0.5 mg oral tablet TAKE 1 TABLET BY MOUTH 3 TIMES DAILY NEEDED FOR ANXIETY OR SLEEP Start Date: 11/24/22 Status: Ordered Medication Dispense Status: Completed Total Allowed Fills: 1 Fills Dispensed: 0 montelukast 10 mg oral tablet See Instructions, LUCIANO STERLINGA TOApryl LOS HDZ AL ACOSTARSE, # 90 tablet, Refills 0, Tot. Refills 0, Maintenance, 04/18/23 1:51:00 AM EST, Instructions Replace Required Details, Route to Pharmacy Electronically, [facility]/pharmacy #[id number], 160, cm, 03/23/23 11:35:00 EST, Height, 78, kg, 02/02/23 18:32:00 EDT, Dry Weight Start Date: 04/18/23 Status: Ordered Medication Dispense Status: Completed Quantity: 90.0 Unit: tablet Total Allowed Fills: 1 Fills Dispensed: 0 nitroglycerin 0.[address] 1 TABLET UNDER TONGUE EVERY 5 MINS, UP TO 3 DOSES NEEDED FOR CHEST PAIN Start Date: 11/24/22 Status: Ordered Medication Dispense Status: Completed Total Allowed Fills: 1 Fills Dispensed: 0 Norvasc 5 mg oral tablet 5 mg, 1, tablet, By Mouth, Daily, # 90 tablet, Refills 3, Tot. Refills 3, Maintenance, 03/09/22 11:54:00 AM EST, Route to Pharmacy Electronically, [facility]/pharmacy #[id number], 160, cm, 03/09/22 10:43:00 EST, Height, 78, kg, 01/14/22 19:37:00 EDT, Dry Weight Start Date: 03/09/22 Stop Date: 03/04/23 Status: Ordered Medication Dispense Status: Completed Quantity: 90.0 Unit: tablet Total Allowed Fills: 4 Fills Dispensed: 0 NovoLOG FlexPen 100 units/mL subcutaneous solution See Instructions, Inject 8-20 units tid 10-15 minutes before each meal per sliding scale MDD 60 units, # 15 mL, 6 Refills, Maintenance, 11/24/22 4:02:00 PM EDT, [facility]/pharmacy #[id number], DxE11.65, 158, cm, 11/24/22 8:48:00 EDT, Height, 76, kg, 05/07/22 6:04:00 EST, Dry Weight Start Date: 11/24/22 Status: Ordered Medication Dispense Status: Completed Quantity: 15.0 Unit: mL Total Allowed Fills: 7 Fills Dispensed: 0 Indications: Type 2 diabetes mellitus without complications; [id number]-svwul medical-grade oxford diabetic shoes, depth or hightop Zbj-nap-pchkt medical-grade oxford diabetic shoes, depth or hightop, See Instructions, # 1 each, Refills 0, Tot. 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; DMtype 2 pressure callus 11.628, right bunion M20.11 1 pair, 07/22/2211:37:00 PM EDT, Compound Start Date: 07/21/21 Status: Ordered Medication Dispense Status: Completed Quantity: 1.0 Unit: each Total Allowed Fills: 1 Fills Dispensed: 0 ondansetron 4 mg oral tablet 1 tablet = 4 mg, By Mouth, Every 8 hours, PRN Nausea, # 15 tablet, 2 Refills, Maintenance, 03/09/2211:40:00 AM EST, Tablet, [facility]/pharmacy #[id number], 160, cm, 03/09/22 10:43:00 EST, Height, 78, kg, 01/14/22 19:37:00 EDT, Dry Weight Start Date: 03/09/22 Status: Ordered Medication Dispense Status: Completed Quantity: 15.0 Unit: tablet Total Allowed Fills: 3 Fills Dispensed: 0 oxyCODONE 5 mg oral tablet TOME GAGE O DOS TABLETAS POR V A ORAL CADA SEIS HORAS CUANDO SEA NECESARIO PARA EL DOLOR Start Date: 11/24/22 Status: Ordered Medication Dispense Status: Completed Total Allowed Fills: 1 Fills Dispensed: 0 Pen [place], 32 G x 4 mm BD Ultra Fine III See Instructions, # 400 each, Refills 4, Tot. Refills 4, Maintenance, Use as directed to inject insulin 4 times per day. E11.9, 11/24/22 4:02:00 PM EDT, Compound, 158, cm, 11/24/22 8:48:00 EDT, Height, 76, kg, 05/07/22 6:04:00 EST, Dry Weight Start Date: 11/24/22 Status: Ordered Medication Dispense Status: Completed Quantity: 400.0 Unit: each Total Allowed Fills: 5 Fills Dispensed: 0 Indications: Type 2 diabetes mellitus without complications; PLEASE DO NOT ERASE ANY NARCOTIC FROM OUTPATIENT MED LIST IF YOU ARE NOT THE PRESCRIBER PLEASE DO NOT ERASE ANY NARCOTIC FROM OUTPATIENT MED LIST IF YOU ARE NOT THE PRESCRIBER, See Instructions, # 1 each, Refills 0, Tot. Refills 0, Maintenance, PLEASE DO NOT ERASE ANY NARCOTIC FROM OUTPATIENT MED LIST IF YOU ARE NOT THE PRESCRIBER. If name of medication appears more than once, it is not a medical error, it indicates the prescriptions already given to the patient for future dispensing, 09/22/15 10:47:33 PM EDT, Compound Start Date: 09/22/15 Status: Ordered Medication Dispense Status: Completed Quantity: 1.0 Unit: each Total Allowed Fills: 1 Fills Dispensed: 0 PLEASE DO NOT ERASE MEDICATIONS/MEDICAL SUPPLIES FROM OUTPATIENT MED LIST IF YOU ARE NOT THE PRESC PLEASE DO NOT ERASE MEDICATIONS/MEDICAL SUPPLIES FROM OUTPATIENT MED LIST IF YOU ARE NOT THE PRESCRIBER OR PCP, OR ARE NOT CHANGING A MED TO AN ALTERNATE ONE, See Instructions, # 1 each, Refills 0, Tot. Refills 0, Maintenance, PLEASE DO NOT ERASE MEDICATIONS/MEDICAL SUPPLIES FROM OUTPATIENT MED LIST IF YOU ARE NOT THE PRESCRIBER OR PCP, OR ARE NOT CHANGING A MED TO AN ALTERNATE ONE, 09/22/15 10:47:38 PM EDT, examples of medical supplies: CPAP, BIPAP, bs testing supplies, diabetic, shoes; urinaryincontinence pads, urinary catheters, etc., Compound Start Date: 09/22/15 Status: Ordered Medication Dispense Status: Completed Quantity: 1.0 Unit: each Total Allowed Fills: 1 Fills Dispensed: 0 polyethylene glycol 3350 oral powder for reconstitution 17- 34 Gm, By Mouth, Daily, PRN as needed for constipation, (dissolve in water or juice), # 527 Gm,11 Refills, Maintenance, 03/09/22 11:39:00 AM EST, [facility]/pharmacy #[id number], 17- 34 Gm By Mouth Daily,PRN:as needed for constipation,Instr:(dissolve in water or juice), 160, cm, 03/09/22 10:43:00 EST, Height, 78, kg, 01/14/22 19:37:00 EDT, Dry Weight Start Date: 03/09/22 Status: Ordered Medication Dispense Status: Completed Quantity: 527.0 Unit: g Total Allowed Fills: 12 Fills Dispensed: 0 Pull ups Pull ups, See Instructions, # 120 each, Refills 11, Tot. Refills 11, Maintenance, Wear daily duringday and night. Change 4 times a day prn Dx mixed urinary incontinence ICD10 N39.46 Height 159 cm, weight 82 kg Length of need: 99 Size- large, 04/28/21 2:04:00 PM EST, Compound Start Date: 04/28/21 Status: Ordered Medication Dispense Status: Completed Quantity: 120.0 Unit: each Total Allowed Fills: 12 Fills Dispensed: 0 Senna-Time 8.6 mg oral tablet 2 tablet, By Mouth, 2 times a day, PRN NEEDED FOR CONSTIPATION,INSTR, # 60 tablet, 11 Refills, Maintenance, 03/09/22 11:39:00 AM EST, [facility]/pharmacy #[id number], 160, cm, 03/09/22 10:43:00 EST, Height, 78, kg, 01/14/22 19:37:00 EDT, Dry Weight Start Date: 03/09/22 Status: Ordered Medication Dispense Status: Completed Quantity: 60.0 Unit: tablet Total Allowed Fills: 12 Fills Dispensed: 0 Seroquel By Mouth, Refills 0, Maintenance, 01/23/25 1:20:00 PM EDT, Partial fill upon patient request if theprescription is for a schedule II opioid drug. Start Date: 01/23/25 Status: Ordered Medication Dispense Status: Completed Total Allowed Fills: 1 Fills Dispensed: 0 SEROquel 25 mg oral tablet 25 mg, 1, tablet, By Mouth, Daily, # 30 tablet, Refills 0, Maintenance, 12/19/24 4:08:00 PM EDT, Partial fill upon patient request if the prescription is for a schedule II opioid drug. Start Date: 12/19/24 Status: Ordered Medication Dispense Status: Completed Quantity: 30.0 Unit: tablet Total Allowed Fills: 1 Fills Dispensed: 0 Shoes insert, molded to foot Shoes insert, molded to foot, See Instructions, # 3 each, Refills 0, Tot. 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 Refills 2, Maintenance, Use 1 wipe every 14 days with sensor change. Clean and dry skin, then wipe with Skin Tac and let dry. Once dry apply sensor., 11/24/22 9:56:00 AM EDT, Supply, 158, cm, 11/24/22 8:48:00 EDT, Height, 76, kg, 05/07/22 6:04:00 EST, Dry Weight Start Date: 11/24/22 Status: Ordered Medication Dispense Status: Completed Quantity: 50.0 Unit: each Total Allowed Fills: 3 Fills Dispensed: 0 TENS electrode pads TENS electrode pads, See Instructions, # 1 each, Refills 5, Tot. Refills 5, Maintenance, use as directed for back pain Dx LBP M54.9 1 box of 4, 08/27/21 2:17:00 PM EDT, Compound Start Date: 08/27/21 Status: Ordered Medication Dispense Status: Completed Quantity: 1.0 Unit: each Total Allowed Fills: 6 Fills Dispensed: 0 Trelegy Ellipta inhalation powder TOME GAGE INHALACI N POR V A ORAL TODOS LOS D Start Date: 11/24/22 Status: Ordered Medication Dispense Status: Completed Total Allowed Fills: 1 Fills Dispensed: 0 Trelegy Ellipta inhalation powder 1 puffs, Inhalation, Daily, at the same time every day, # 60 each, 0 Refills, Maintenance, :42:00 PM EDT, Powder, Partial fill upon patient request if the prescription is for a schedule II opioid drug. Start Date: 01/26/23 Status: Ordered Medication Dispense Status: Completed Quantity: 60.0 Unit: each Total Allowed Fills: 1 Fills Dispensed: 0 Tresiba FlexTouch 100 units/mL subcutaneous solution = 10 units, Subcutaneous Injection, 2 times a day, # 15 mL, 3 Refills, Maintenance, 02/23/23 12:11:00 PM EST, [facility]/pharmacy #[id number], Partial fill upon patient request if the prescription is for a schedule II opioid drug., 160, cm, 02/04/23 11:08:00 EDT, Height, 78, kg, 02/02/23 18:32:00 EDT, Dry Weight Start Date: 02/23/23 Status: Ordered Medication Dispense Status: Completed Quantity: 15.0 Unit: mL Total Allowed Fills: 4 Fills Dispensed: 0 venlafaxine 37.5 mg oral tablet 1 tablet = 37.5 mg, 0 Refills, Maintenance, 06/26/24 1:00:00 PM EDT, Partial fill upon patient request if the prescription is for a schedule II opioid drug. Start Date: 06/26/24 Status: Ordered Medication Dispense Status: Completed Total Allowed Fills: 1 Fills Dispensed: 0 Ventolin HFA 108 mcg/inh inhalation aerosol with adapter 2 puffs, Inhalation, 4 times a day, PRN Wheezing/Shortness of Breath, dispense when patient requestit, # 18 Gm, 5 Refills, Maintenance, 11/09/20 12:36:00 PM EDT, [id number], 160, cm, 10/22/20 9:15:00 EDT, Height, 80.6, kg, 06/03/20 19:00:00 EST, Dry Weight Start Date: 11/09/20 Status: Ordered Medication Dispense Status: Completed Quantity: 18.0 Unit: g Total Allowed Fills: 6 Fills Dispensed: 0 Voltaren 1% topical gel = 2 Gm, Topically, 4 times a day, # 100 Gm, 5 Refills, Maintenance, 03/09/22 11:55:00 AM EST, [id number], 2 Gm Topically 4 times a day,x14 days, 160, cm, 03/09/22 10:43:00 EST, Height, 78, kg, 01/14/22 19:37:00 EDT, Dry Weight Start Date: 03/09/22 Stop Date: 06/01/22 Status: Ordered Medication Dispense Status: Completed Quantity: 100.0 Unit: g Total Allowed Fills: 6 Fills Dispensed: 0 [place] Reusable Bed Pad 34 x 36 [place] Reusable Bed Pad 34 x 36 , See Instructions, # 1 each, Refills 11, Tot. Refills 11, Maintenance, Use daily at bedtime Dx mixed urinary incontinence ICD10 N39.46 Length of need: 99, 04/28/21 1:27:00 PM EST, Compound Start Date: 04/28/21 Status: Ordered Medication Dispense Status: Completed Quantity: 1.0 Unit: each Total Allowed Fills: 12 Fills Dispensed: 0 wipes wipes, See Instructions, # 2 each, Refills 11, Tot. Refills 11, Maintenance, Use as directed to clean after toileting Dx mixed urinary incontinence ICD10 N39.46 Length of need: 99 each box of 100, 04/28/21 1:31:00 PM EST, Compound Start Date: 04/28/21 Status: Ordered Medication Dispense Status: Completed Quantity: 2.0 Unit: each Total Allowed Fills: 12 Fills Dispensed: 0 Problem List Condition Confirmation Course Effective Dates [...] Confirmed 12/29/11 Active Hepatitis C Confirmed Active FDC current use of opiate analgesic-LBP 12 Confirmed [...] Osteopenia 18, 19, 20 Confirmed 11/16/12 Active *[phone] Rn Lpn Cna Karine More Confirmed Active Peripheral venous insufficiency [...] 1 11left mild sensorineural hearing loss by [facility] Hearing Evaluation on 12/29/11 12Narcotic [...] lower parathyroidectomy. 06/16/08 SURGEON: Danny Marie M.D. SERVICER COIN MACHINES: Naima Bowling M.D. 22b/l submassive PE diagnosed on Dec 20 in [facility] 23TTE 12/22/15 in [facility]: RV dilatation, RVSP 46 24Per ECHO 05/24/17 Trace mitral regurgitation , trace TC regurgitation w no significant valve pathology 25meg colo July 2009 exc for 2 hyperplastic polyps 26Colonoscopy 2004 at [facility] [place] per letter of Dr Amor Dobbins Social History Social History Type Response Smoking Status Never (less than 100 in lifetime) entered on: 10/22/20 Sex Sex Representation Female (finding) Patient Care team information Care Team Personnel Name: Massimo Figueroa Position: [facility] Outreach Member Role: PCP Address: [address] [place] [address] Telecom: Name: Oneil Ye RN Position: [facility] Outreach Member Role: Primary Care Nurse Name: Diamond Weiss RN Position: [facility] RN Member Role: Primary Care Nurse Name: Tiara Cavazos RN Position: [facility] OB RN Member Role: Primary Care Nurse Name: Shreya Boss RN Position: [facility] RN Member Role: Primary Care Nurse Name: Dhruv Khan RN Position: [facility] RN Member Role: Primary Care Nurse Name: Virginia Benson RN Position: [facility] Nurse Member Role: Primary Care Nurse Name: Glen Cota MD Position: [facility] Renal MD Member Role: Lifetime Consulting Physician Address: [address] [facility] [place] [address] [facility] [address] Telecom: Name: Caorle Toro LPN Position: S RN Member Role: Primary Care Nurse Care Team Related Persons Name: JOSE ELIAS TODD Name: JOSE ELIAS KIRKLAND Name: LEONIE SCHRADER Insurance Providers Guarantor name: LEONIE [facility] [employer] [facility] Information #: 1 Payer: [facility] [employer] [employer] Payer Identifier: NA Member Number: [id number] Group Number: [id number] Subscriber Identifier: NA Relationship to Subscriber: self Coverage Type: Medicare Managed Care (Includes Medicare Advantage Plans) Coverage Verification Date: NA Telecom: NA Address: NA
--- NOTE | ~2025-04-07 | XR_ITS ---
EXAMINATION: XR CERVICAL SPINE CLINICAL INFORMATION: G95.9 - Disease of spinal cord, unspecified COMPARISON: None available. TECHNIQUE: 3 views of the cervical spine were obtained. FINDINGS: There is mild straightening of cervical lordosis. There are disc prostheses at the C3-4, C4-5 and C5-6 levels. Mild loss of C6 -C7 disc heights with ventral spondylosis is noted. No visible acute fracture, dislocation or subluxation seen. On flexion-extension view there is no movement seen at the fused levels The prevertebral and paravertebral soft tissues are normal. The craniovertebral junction and the C1-C2 alignment is normal. 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 Mild loss of C6-C7 disc height is noted. Electronically signed by: Scott Castro MD 04/07/2025 02:03 PM [facility]
--- NOTE | 2025-04-07 13:29 | A.SPINEOV_ITS ---
Intake Visit Reasons: 3 month f/u with Xrays Intake Note: Ms. Corea is here today for her 3month F/u with x-rays. Lead Miner Blasting Required: No Allergies bee pollen (bee stings) Allergy (Severe, Verified 04/07/25 13:30) Anaphylaxis lidocaine (From LIDODERM) Allergy (Severe, Verified 04/07/25 13:30) BLISTERS from adhesive morphine (MORPHINE) Allergy (Severe, Verified 04/07/25 13:30) PO will cause itching, can tolerate IV Penicillins (PENICILLINS) Allergy (Severe, Verified 04/07/25 13:30) SWELLING/ITCHING ampicillin Allergy (Intermediate, Verified 04/07/25 13:30) rash/hives gabapentin (GABAPENTIN) Allergy (Intermediate, Verified 04/07/25 13:30) SORES IN MOUTH/AGITATION enalapril Adverse Reaction (Severe, Verified 04/07/25 13:30) hyperkalemia Assessment & Plan Assessment & Plan (1) Cervical myelopathy: Code(s): G95.9 - Disease of spinal cord, unspecified Category: Medical Plan Mrs Corea is here in follow-up. She still has neck pain, but her preoperative myelopathic symptoms in the arms have all gone away. Her daughter is here with her today who is helping with Belgian, reports the neck pain is even getting slightly better. Her mother is forgetful and has pains all over her body so it is hard to interpret exactly what is hurting from day-to-day at times. She takes Tylenol and oxycodone it seems to go on her way reasonably well. Her x- rays today show no further shifting of the implants and no instability on flexion or extension views. Since she is relatively stable and has fairly predictable good response to her medications, I think she is clinically at a point where further surgery is not going to help her. At this point she has no specific restrictions and can follow up with us on an as-needed basis. Total amount of time spent in this visit was 20 minutes in discussion of symptoms, cervical x-rays imaging results and subsequent plan of care Octaviano Fernando MD,PhD [facility] Orders: Orders XR cervical spine 4V Today G95.9 - Disease of spinal cord, unspecified, Z98.1 - Arthrodesis status Coding Level of Care Code Est Pt Level 3 (02942) Diagnoses Cervical myelopathy G95.9
--- OUTSIDE RECORDS SUMMARY | 2025-04-07 15:10 | XMS_ITS | Clinical Summary ---
Author Organization [address] [facility] Address [address] [place] [address] Phone Care Team Providers Care Sec Accountant Name Role Phone Massimo Mcclellan Primary Care Provider [phone] Allergies Active Allergy Reactions Criticality Noted Date [...] Encounters Date Type Department Care Team Description 02/17/2025 1:15 PM EST Office Visit [facility] [place] [address] [address] Florian Mott DPM Controlled type 2 diabetes with neuropathy (CMS/HCC [...] Care Team (Late st Contact Info) Description 05/28/2025 1:15 PM EST Office Visit [facility] - [place] [address] [phone] Florian Mott DPM 175 [facility] [address] [place] [address] Health Maintenance Due Date Last Done Comments Diabetes: Annual Foot Exam 1955 Diabetes: Annual Retina Eye Exam 1955 RSV Immunization Adult Patients (1 - 1-dose 75+ series) 07/06/2019 Falls Risk Assessment 03/13/2022 Medicare Annual Wellness Visit 03/13/2022 Osteoporosis Screening (Bone Density Screening) 03/13/2022 Social Influencers of Health Screening 03/13/2022 Depression Screening 04/10/2024 Hepatitis B Vaccines (2 of 2 - CpG risk 2-dose series) 11/26/2024 10/29/2024 Hepatitis A Vaccines (2 of 2 - Risk 2-dose series) 05/01/2025 10/29/2024 Diabetes: Blood Sugar Control Test (HGBA1C) 06/09/2025 12/10/2024, 08/19/2024, 10/25/2023 COVID-19 Vaccine (9 - Pfizer risk 2024- season) 2025 01/30/2025, 12/27/2023, 02/14/2023, Additional history exists Diabetes: Annual Urine Albumin-Creatinine Ratio (uACR) 08/19/2025 08/19/2024, 07/26/2023 Diabetes: Annual GFR (Glomerular Filtration Rate) 12/10/2025 12/10/2024, 10/25/2023, 07/19/2017 Hypertension/CHF/CAD Annual BMP Blood Test 12/10/2025 12/10/2024, 10/25/2023, 07/19/2017 Cholesterol Screening (Lipid Panel) 08/19/2029 08/19/2024, 08/19/2024, 05/08/2023, Additional history exists DTaP,Tdap,and Td Vaccines (4 - Td or Tdap) 10/29/2034 10/29/2024, 05/12/2014, 11/10/2010 Pneumococcal Vaccine: 50+ Years Completed 05/12/2014, 11/10/2010, 05/20/2004 Zoster Vaccines Completed 12/08/2021, 06/0 11/2021, 10/16/2012 Influenza Vaccine Completed 01/30/2025, , 05/08/2023, Additional history exists HIB Vaccines Aged Out [...] Relevant to Health Maintenance Insurance [facility] MEDIC[facility] Member Subscriber Plan / Payer (Ef fective 2012-Present) Name:Leonie Corea Relation to Subscriber:Self Name:Leoine Corea Payer ID:[id number] Group ID:[id number] Type:Not on file Address: [facility] [address] [address] Advance Directives Documents on File Type Date Recorded Patient Membership Sales Advisor Expl anation Health Care Decision (hx) 03/30/2021 [...] (hx) 12/25/2015 AD NIEVES DIRECTIVE Care Teams Sec Accountant Relationship Specialty Start Date End Date Massimo Mcclellan PA [address] [place] [address] PCP - General 11/24/23
--- OUTSIDE RECORDS SUMMARY | 2025-04-07 15:10 | XMS_ITS | Patient Health Record ---
Author Organization [facility] Address [address] [place] [phone] Care Team Providers Care Senior It Assistant Name Role Phone RICKY GARZA, DAISY Primary Care Provider Unavailable Amor Dobbins Jr Unavailable Allergies Allergen (clinical drug ingredient) Drug/Non Drug Allergy documented on EMR Reaction Allergy Type Onset Date Status Codeine Phosphate Unknown Drug Allergy Active lidocaine Lidoderm patches Drug Allergy Active morphine Morphine Sulfate Unknown Drug Allergy Active Penicillin Unknown Drug Allergy Active Reason For Referral No Information Medications Medication SIG (Take, Route, Frequency, Duration) Notes Start Date End Date Status Famotidine 40 MG Tablet 1 tablet at bedt thomas Orally Once a day; Duration: 30 day(s) Active Lqzxcvpevdj-Nexusyjen-Njqazt 100-62.5-25 MCG/INH Aerosol Powder Breath Activated 1 puff Inhalation Once a day Active Singulair 10 MG Tablet 1 tablet Orally O nce a day Unknown Ferrous Sulfate ER 325 MG Tablet Extended Release as directed Orally Active Tresiba 100 UNIT/ML Solution as directed Subcutaneous Active Ketotifen Fumarate 0.025 % Solution 1 drop into affected eye Ophthalmic Twice a day/prn Unknown Insulin Aspart 100 UNIT/ML Solution Pen-injector as directed Subcutaneous Active Fluticasone Propionate HFA 220 MCG/ACT Aerosol 1 puff Inhalation once a day Unknown Senna Concentrate 8.6 MG Tablet 2 tablets at bedtime as needed Orally Once a day; Duration: 30 day(s) Active oxyCODONE HCl 5 MG Tablet 1 tablet Orall y every 6 hrs prn pain Unknown Nitroglycerin 0.3 MG Tablet Sublingual as directed Sublingual Activ e DULoxetine HCl 30 MG Capsule Delayed Release Particles 3 capsule Orally Once a day Unknown busPIRone HCl 15 MG Tablet 1 tablet Oral ly Twice a day Active Fluconazole 200 MG Tablet 2 tablet Orall y x 14 days/prn Unknown Apixaban 5 MG Tablet 1 tablet Orally Twi ce a day; Duration: 30 day(s) Active Flunisolide 25 MCG/ACT (0.025%) Solution 2 sprays in each nostril Nasally Twice a day Unknown Esomeprazole Magnesium 40 MG Capsule Delayed Release 1 capsule Orally Once a day; Duration: 30 day(s) Active Celecoxib 200 MG Capsule 1 capsule with food Orally Twice a day Unknown Clopidogrel Bisulfate 75 MG Tablet 1 tablet Orally Once a day; Duration: 30 day(s) Active Enalapril Maleate 10 MG Tablet 1 tablet Orally Once a day; Duration: 30 day(s) Unknown Albuterol Sulfate 108 (90 Base) MCG/ACT Aerosol Powder Breath Activated 2 puffs as needed Inhalation every 6 hrs Unknown Capsaicin 0.025 % Cream 1 application to affected area as needed Externally Three times a day Unknown Escitalopram Oxalate 20 MG Tablet 1 tablet Orally Once a day; Duration: 30 day(s) Active Furosemide 10 MG/ML Solution 2 ml Orally Once a day; Duration: 30 day(s) Active Trulicity 0.75 MG/0.5ML Solution Pen-injector as directed Subcutaneous Active Pravastatin Sodium 10 MG Tablet 1 tablet Orally Once a day; Duration: 30 day(s) Unknown Ondansetron 4 MG Tablet Disintegrating 1 tablet on the tongue and allow to dissolve Orally Once a day; Duration: 30 day(s) Active metFORMIN HCl 500 MG Tablet Oral; Duration: 30 Unknown Ammonium Lactate 12 % Lotion 1 applicati on Externally Twice a day Active hydroCHLOROthiazide 12.5 MG Capsule 1 capsule in the morning Orally Once a day Unknown amLODIPine Bes+SyrSpend SF 1 MG/ML Suspension 5 mL Orally Once a day; Duration: 30 day(s) Active Tresiba FlexTouch 200 UNIT/M L Solution Pen-injector 105 units as directed Subcutaneous daily Unknown tiZANidine HCl 2 MG Tablet 1 tablet as n eeded Orally Three times a day Active Cholecalciferol 1000 UNIT Capsule 1 capsule Orally Once a day Unknown MiraLax (colon prep) 8.3 ounce ((238) grams mixed with Gatorade or Crystal Light orally begin at 5:00 p.m. the day before the procedure; Duration: 1 day 10/30/2019 Unknown Tamsulosin HCl 0.4 MG Capsul e Extended Release as directed Orally Activ e Loratadine 10 MG Tablet 1 tablet Orally Once a day Unknown Pantoprazole Sodium 40 MG Tablet Delayed Release TAKE 1 TABLET BY MOUTH DAILY Orally Once a day; Duration: 90 days Unknown Rosuvastatin Calcium 40 MG Tablet 1 tablet Orally Once a day; Duration: 30 day(s) Active NovoLOG FlexPen 100 UNIT/ML Solution Pen-injector INJECT 15 50 UNITS PER SLIDING SCALE 3 TIMES A DAY BEFORE MEALS. Subcutaneous; Duration: 90 Unknown Acetaminophen 500 MG Tablet 2 tablets Or ally every 6 hrs prn pain Unknown Stool Softener 100 MG Capsule Oral; Duration: 30 Unknown Vitamin D3 25 MCG (1000 UT) Tablet Oral; Duration: 90 Unknown Levocetirizine Dihydrochloride 5 MG Tablet 1 tablet in the evening Orally Once a day; Duration: 30 day(s) Active Calcium Citrate + D3 Maximum 315-250 MG-UNIT Tablet Oral; Duration: 90 Unknown Eliquis 5 MG Tablet Oral; Duration: 30 Unknown Immunizations Vaccine Route Administration Date Status Comme nts Influenza Unknown 01/08/2019 Administered Influenza Unknown 01/09/2020 Administered Influenza Unknown 02/23/2021 Administered Social History Social History Additional Details Category Social Info Options Details Miscellaneous: Marital status: Occupation: Home Problems Problem Type SNOMED Code ICD Code Onset Dates Problem Status W/U Status Risk Notes Problem Epigastric pain (31585647) Epigastric pain (R10.13) Active confirmed Problem Gastroesophageal reflux disease without esophagitis (870740701) Gastroesophageal reflux disease without esophagitis (K21.9) Active confirmed Problem Iron deficiency anemia (97755523) Iron deficiency anemia, unspecified iron deficiency anemia type (D50.9) Active confirmed Problem Anemia (012112915) Anemia, unspecified type (D64.9) Active confirmed Problem Dysphagia (52990427) Dysphagia, unspecified type (R13.10) Active confirmed Problem 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) Cirrhosis of liver without ascites, 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) Active confirmed Plan Of Treatment Pending Test Test Name Order Date BUN 11/09/2020 CREATININE 11/09/2020 LIVER PROFILE 12/27/2021 LIVER PROFILE 11/09/2020 LIVER PROFILE 06/06/2014 CBC w/o DIFF 12/27/2021 CBC w/o DIFF 11/09/2020 CBC w/o DIFF 06/06/2014 PROTHROMBIN TIME (PT, INR) 11/09/2020 PROTHROMBIN TIME (PT, INR) 12/27/2021 HEPATITIS C VIRAL LOAD 06/06/2014 CT ABD & PELVIS WITH CONTRAST 11/09/2020 US ABD 12/27/2021 US ABD 11/02/2011 Liver Fibrosis Pnl 12/27/2021 Future Test Test Name Order Date COLONOSCOPY 04/30/2014 UPPER GI ENDOSCOPY 04/15/2016 UPPER GI ENDOSCOPY 06/22/2018 UPPER GI ENDOSCOPY 10/30/2019 COLONOSCOPY 10/30/2019 Insurance Providers Payer Name Payer Address Payer Phone Subscriber Number Group Number Insured Name Patient Relationship to Insured Coverage Start Date Coverage End Date [facility] [address] [place] [address] [id number] TOMMY CHOU Self - patient is the [...]
--- OUTSIDE RECORDS SUMMARY | 2025-04-07 15:10 | XMS_ITS | Clinical Summary ---
Author Organization [facility] Address [address] [facility] [address] [place] [phone] Phone Care Team Providers Care Racehorse Trainer Name Role Phone Florinda Nino MD Primary [...] EDT) CREATININE 0.84 0.60 - 1.50 mg/dL [facility] EGFR >60 mL/min/1.7 3m2 [facility] Comment:Abnormal if <60 mL/m in/1.73m2. If patient is -Bhutanese, multiply the result by 1.21. Blood 12/25/2015 3:10 AM EDT 12/25/2015 3:15 AM EDT To Arroyo MD LAB BLOOD BKR ORDERABLES Final R esult Performing Organization Address [facility] Co de Phone Number [address] [address] * Potassium (12/25/2015 3:10 AM EDT) POTASSIUM 4.1 3.4 - 5.0 mmol/L [facility] Blood 12/25/2015 3:10 AM EDT 12/25/2015 3:15 AM EDT To Arroyo MD LAB BLOOD BKR ORDERABLES Final R esult Performing Organization Address [facility] Co de Phone Number [address] [address] * (ABNORMAL) Lipid panel (12/23/2015 6:15 AM EDT) HDL 33(L) 35 - 100 mg/dL [facility] CHOLESTEROL 169 mg/dL [facility] Comment:DESIRABLE: <200 TRIGLYCERIDES 149 40 - 150 mg/dL [facility] LDL 106 mg/dL [facility] Comment:DESIRABLE: <130 CARDIAC RISK RATIO 5.1 [facility] Comment:NORMAL RISK RATIO: 5 .0 OR LESS 12/23/2015 6:15 AM EDT 12/23/2015 6:48 AM EDT Rishi Lindsey MD LAB BLOOD BKR ORDERABLES Fin al Result Performing Organization Address [facility] Co de Phone Number [address] [address] from Last 3 Months or Most Recently Relevant to Health Maintenance Insurance Member Subscriber Plan / Payer (Ef fective 2015-Present) Name:Leonie Corea Relation to Subscriber:Self Name:Leonie Corea Payer ID:[id number] (NAIC) Group ID:Not on file Type:Medicare [address] [facility] [address] [facility] MEDICARE REPLACEMENT [address] [id number] [address] [address] Advance Directives For more information, please contact: [phone] (9AM - 5PM 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 It is not the complete legal health record.[facility]
--- OUTSIDE RECORDS SUMMARY | 2025-04-07 15:10 | XMS_ITS | Patient Health Record ---
Author Organization [facility] Address [address] [place] [address] Care Team Providers Care Geriatric Care Manager Name Role Phone Massimo Figueroa Primary Care Provider Unavail able Miguel A Layne Unavailable [phone] Allergies Allergen (clinical drug ingredient) Drug/Non Drug [...] Active Celecoxib 200 MG (Prior Auth: Rx Ref#:[id number]) Oral; Duration: 30 Not-Taking Tresiba Active DULoxetine HCl 60 MG (Prior Auth: Rx Ref#:[id number]) Oral; Duration: 30 Not-Taking NovoLOG Active Enalapril Maleate 10 MG (Prior Auth: Rx Ref#:[id number]) Oral; Duration: 90 Not-Taking Acetaminophen Extra Strength 500 MG (Prior Auth: Rx Ref#:[id number]) Oral; Duration: 13 Active Gabapentin 400 MG (Prior Auth: Rx Ref#:[id number]) Oral; Duration: 90 Not-Taking Albuterol Sulfate (2.5 MG/3ML) 0.083% (Prior Auth: Rx Ref#:[id number]) Inhalation; Duration: 10 Active Ferrous Sulfate 325 (65 Fe) MG 1 tablet Orally Once a day; Duration: 30 day(s) Not-Taking Capsaicin 0.025 % 1 application to affected area as needed Externally Three times a day Active Fluticasone Furoate 200 MCG/ACT 1 puff Inhalation Once a day Active hydroCHLOROthiazide 12.5 MG (Prior Auth: Rx Ref#:[id number]) Oral; Duration: 30 Active Polyethylene Glycol 3350 - as directed Active Flunisolide 25 MCG/ACT (0.025%) (Prior Auth: Rx Ref#:[id number]) Nasal; Duration: 25 Active Extra Depth Orthopedic Shoes (1 Pair) with Customized Heat Molded Multidensity Innersoles (3 Pair) as directed Dx: IDDM/Polyneuropathy (E10.42), Hammertoe Foot Deformity (M20.41,M20.42), Preulcerative Skin Lesion(s) (L85.1) 01/12/2023 Active Loratadine 10 MG (Prior Auth: Rx Ref#:[id number]) Oral; Duration: 90 Active Montelukast Sodium 10 MG (Prior Auth: Rx Ref#:[id number]) Oral; Duration: 30 Active oxyCODONE HCl 5 MG (Schedule II Drug) (Prior Auth: Rx Ref#:[id number]) Oral; Duration: 28 Active Pantoprazole Sodium 40 MG (Prior Auth: R x Ref#:[id number]) Oral; Duration: 30 Active Pravastatin Sodium 10 MG (Prior Auth: Rx Ref#:[id number]) Oral; Duration: 30 Active Aspirin Low Dose 81 MG (Prior Auth: Rx Ref#:[id number]) Oral; Duration: 90 Not-Taking Citracal + D [...] Problem Acquired hammer toe of right foot (9341647910839713 ) Other hammer toe(s) (acquired), right foot (M20.41) Active confirmed Problem Acquired hammer toe of left foot (5107796688140290 ) Other hammer toe(s) (acquired), left foot (M20.42) Active confirmed Problem Polyneuropathy due to diabetes mellitus type I (613833430) Type 1 diabetes mellitus with diabetic polyneuropathy (E10.42) Active confirmed Plan Of Treatment Pending Test Test Name Order Date X ray : Foot, left 3V 12/18/2018 X ray : Foot, right 3V 12/18/2018 [id number] NAIL, 6 OR MORE 11/10/2021 [id number] NAIL, 6 OR MORE 01/12/2023 43160-[id number] SKIN LESIONS, OVER 4 01/13/20 23 22263-[id number] SKIN LESIONS, OVER 4 11/11/19 22 32375-KHBS SKIN LESIONS, OVER 4 09/19/19 19 57647-NYIG SKIN LESIONS, OVER 4 12/19/19 19 13644-JZHU SKIN LESIONS, OVER 4 03/26/20 19 17936-BFKQ SKIN LESIONS, OVER 4 09/09/19 21 34773-LUFN SKIN LESIONS, OVER 4 06/12/19 22 Insurance Providers Payer Name Payer Address Payer Phone Subscriber Number Group Number Insured Name Patient Relationship to Insured Coverage Start Date Coverage End Date [facility] [employer] Claims [address] [place] [id number] Leonie Corea Self - patient is the [...] History Reason Date(Month/Year) [facility]- check her heart [facility] for kidney stones 05/01
== END 2025-04-07 13:50 | disposition home or self-care (01) ==
LOC: HO.HNS 13:11
PROVIDERS: PCP Physician Assistant; Visit Provider Physician Assistant
DX: G95.9 Disease of spinal cord, unspecified (principal); M50.820 Other cervical disc disorders, mid-cervical region, unspecified level; Z98.1 Arthrodesis status
CPT/HCPCS: 72050; 99213

== ENCOUNTER 2025-04-07 13:10 | Outpatient (REF) | payer OTHER, SELFPAY ==
--- OUTSIDE RECORDS SUMMARY | 2025-04-07 15:18 | XMS_ITS | Data Portability ---
Author Organization [employer] [facility], [facility] Address [address] [place] [address] Care Team Providers Care Roads Superintendent Name Role Phone FELY COVARRUBIAS Primary Care Provider HIM CCA OTHER Assessment Encounter Date Assessment Date Assessment LastModified by Organization Details LastModified Time 02/29/2024 02/29/2024 Evaluation in the field was performed by my manager integration colleague, as noted above, I provided real-time [...] Assessment and Plan as documented by the Cisco Network Architect. Patient given the opportunity to ask questions. Our service contacted for an assessment of: Urinary frequency As per above, patient with approximately several days of urinary frequency. Denies dysuria, abdominal pain, suprapubic pain, flank pain, fever, chills. Does have diabetes and sugars have been running high. Does not specifically endorse polydipsia. No history of frequent urinary tract infections Per manager integration on the scene, vital signs are stable [...] Appointments None recorded. Lab urinalysis, dipstick 2023 [facility] [address] [place] [address], [id number] 4 19:24:48 culture, urine 2023 [facility] (Centralized Electronic Ordering - All Locations), Patient Can Go To The Location Of Their Choice, [id number] 5 20:05:30 urinalysis, dipstick [address], [id number] 4 18:47:22 culture, urine 2023 [facility] (Centralized Electronic Ordering - All Locations), Patient Can Go To The Location Of Their Choice, [id number] 4 22:06:00 Referral None recorded. Procedures None recorded. Surgeries None recorded. Imaging None recorded. Medication Orders cefuroxime axetil 500 mg tablet 2023 [facility][id number], [address] [place] [address], [address], 17:49:37 Patient TargetsNo targets recorded. Patient InstructionsNo instructions recorded. Reason for Referral None Reported. Results Created Date Observation Date Name Description Value Unit Range Abnormal Flag Note LastModifiedBy Organization Detail LastModifiedTime 02/29/20 24 03/01/2024 URINE CULTU RE, ROUTI NE urine culture, routine Final report Not Available [facility] ([facility]) [address] [facility] [place], , [address], 03/01/2024 22:06:00 02/29/20 24 03/01/2024 URINE CULTU RE, ROUTI NE result 1 No growth Not Available [facility] ([facility]) [address] [place], [address], 03/01/2024 22:06:00 04/09/20 24 04/10/2024 URINE CULTU RE, ROUTI NE urine culture, routine Final report Not Available [facility] ([facility]) [address] [facility], , [address], 04/10/2024 20:05:30 04/09/20 24 04/10/2024 URINE CULTU RE, ROUTI NE result 1 No growth Not Available [facility] ([facility]) [address] [place], [address], 04/10/2024 20:05:30 Result Notes None recorded. Medical Equipment None Reported. Allergies Allergen ID Allergen Name Allergen Category Reaction Reaction Severity Criticality Documentation Date Start Date Code Code System Note Provider Name and Address Organization Details Recorded Time 88841 enalapril Not available Not available Not available Not available 02/29/2024 3827 RxNorm Not Available [facility] - production 4 11:30:38 9685 Product containin g penicilli n (product) medicatio n Not available Not available Not available 02/06/2024 91578 8001 SNOMED Not Available [facility] - production 04:14:41 9686 lidocaine medicatio n Not available Not available Not available 02/06/2024 6387 RxNorm Not Available [facility] - production 4 04:14:41 9687 morphine [...] magnesium 40 mg capsule,jolynn yed release TOME AGGE CAPSULA TODOS LOS HDZ EN LA MANANA [...] Not Available No t Available Dexcom G7 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 USE TO CHECK GLUCOSE AT LEAST 3 TIMES DAILY. active Not Available Not Available No t Available Vitals Date Recorded Respiratory rate Oxygen saturation Heart rate Systolic And Diastolic Provider Name and Address Organization Details Last Updated DateTime 06/12/2023 16 /min 97 % 71 /min 113/74 mm[Hg] Not Available [facility] - production 4 13:36:27 Date Recorded Oxygen saturation Body height Heart rate Respiratory rate Body temperature Body weight Systolic And Diastolic Provider Name and Address Organization Details Last Updated DateTime 4 98 % 160.02 cm 67 /min 16 /min 98.3 [degF] 02393.6 16 g 117/61 mm[Hg] Not Available [facility] - production 4 17:46:27 Date Recorded Body temperature Body weight Body height Heart rate Oxygen saturation Respiratory rate Systolic And Diastolic Provider Name and Address Organization Details Last Updated DateTime 4 98.7 [degF] 82361.9 84 g 160.02 cm 80 /min 99 % 18 /min 117/67 mm[Hg] Not Available [facility] - [employer] 4 17:07:34 Social History None recorded. Functional Status None recorded. Mental Status None recorded. Family History Nothing Reported. Medical History No medical history recorded. Gynecological HistoryNo gynecological history recorded. Obstetrics History GPAL:G 0 P 0 0 0 0 Past Encounters Encounter ID Performer Location Encounter Start Date Encounter Closed Date Diagnosis/Indication Diagnosis SNOMED-CT Code Diagnosis ICD10 Code Diagnosis IMO Codes Diagnosis Note [id number] Wild Mendoza MD Main - [address] [address] 06/12/2023 13:36:18 06/12/2023 18:56:08 Contusion of left lower leg [id number] 5761391 S80.12XA This 77-year-ol d female bruised her left anterior lower leg when getting out of the bathtub yesterday. She appears to has a bruise with no deformity. She is taking blood thinners. I recommende d ice packs and elevation. She will follow-up with her PCP for any persistent symptoms. The patient agreed with this plan. [id number] Amina Fatima MD Main - [address] [place] [address] 02/29/2024 17:46:24 03/01/2024 00:46:10 Dysuria [id number] R30.0 [id number] Kimmy Chang MD Main - [facility] [address] [place] [phone] 04/09/2024 16:51:24 04/09/2024 22:30:06 Urinary symptoms 164987821 R39.9 Increased frequency of urination 368558598 R35.0 Health Concerns Section Related Observation LastModified by Organization Detai ls LastModified Time None Recorded Concern Status LastModified by Organization Details LastModified Time None Recorded Advance Directives Directive None Recorded Payers Insurance Date Sequence Insurance Name Policy Number Policy Martinez Covered Member ID Martinez Member ID Guarantor Name 04/09/2024 1 [facility] - DOS ON OR AFTER 2022 - DUAL ELIGIBLE - JAIL OPTIONS AND ONE CARE (MEDICARE REPLACEMENT/ADV ANTAGE - HMO) Leonie Corea [id number] Leonie Corea Notes Date Note Type Note Provider Name and Address Organization Details Recorded Time 06/12/2023 text/html ROS as noted in the [facility] Nurse Triage Notes (Odessa Perez): Reason For Request: Fall Chief Complaints: Injury PMH: Heart Disease, Diabetes, Hypertension Allergies: Penicillin, Lidocaine, Morphine Comments: Called back member and healthcare administration internship for c/o falling yesterday when getting out [...] but no call back yet. Verified name//address. [facility] HEIDY Mendoza MD [address] [place] [address],[address], [place], [address], [employer] 06/12/2023 13:41:12 02/29/2024 text/html ROS as noted in the [facility] Nurse Triage Notes (Velia Shields): Reason For Request: UTI Patient Reports: Painful urination; Frequent and increased urination with flank pain; Painful urination with or without fever Denies: Inability to fully empty bladder Chief Complaints: Urinary symptoms, Diabetes-related PMH: Coronary Artery Disease, Hypertension, Diabetes Mellitus Type 2 Comments: Welder Apprentice verified the name//address and phone number.Patient is [...] s/s and seek emergency treatment if needed Cisco Network Architect Organization Information for Denilson [employer] Name: [employer]. Address: [address] [place] [id number], Blunger: Tobin RUANOIA No.: [id number] Cisco Network Architect POC Test Results from Denilson Diaz Urine Dipstick (17:44:16) Urine leukocytes: + ANT Urine nitrites: - NIT Urine urobilinogen: - URO Urine protein: +/- PRO Urine pH: 5.0 pH Urine blood: +++ BLO Urine specific gravity: 1.010 SG Urine ketones: - KET Urine bilirubin: +/- FRANTZ Urine glucose: - GLU .................. .................. .................. .................. .................. .................. .................. ............... Cisco Network Architect Note From Denilson Diaz: [facility] visit for female pt. Pt presents with her daughter at home. Daughter reports pt had onset of burning with urination yesterday in addition to urinary frequency. Daughter also questioning some possible confusion. V/S taken as listed. Pt afebrile. Pt was able to provide urine specimen with dipstick analysis showing leukocytes and blood. Urine culture specimem obtained. Consulted with [facility] Dr. Fatima who started pt on antibiotics and requested urine culture sent to [facility]. Reviewed red flags for ED with pt and daughter. Pt education provided. [facility] Lab Orders: urinalysis, dipstick: Performed .................. .................. .................. .................. .................. .................. .................. ............... [facility] Consulted: Amina Fatima .................. .................. .................. .................. .................. .................. .................. ............... Disposition: Fulfilled Amina Fatima MD [address] [place] [address],[address], [place], [address], [employer] 02/29/2024 19:43:53 04/09/2024 text/html CRC Nurse Triage [...] Mellitus Type 2, Chronic Kidney Disease Comments: Welder Apprentice verified the patient's name//address and phone number. [...] emergency treatment if needed -Lupe Garza RN Cisco Network Architect Organization Information for Laura Woody [employer] Legal Name: [employer]. Address: [address] [place] [id number], Blunger: Tobin Mclain MD CLCURTIS No.: [id number] Cisco Network Architect POC Test Results from Laura Woody Blood [...] under Documents section. Kimmy Chang MD [address] [facility],[address], [place], [address], [facility] 04/09/2024 22:48:45 OBGyn Episode No OBEpisode recorded.
== END 2025-04-07 13:11 | disposition home or self-care (01) ==
LOC: HO.HOSX 13:10
PROVIDERS: PCP Physician Assistant; Visit Provider Physician Assistant
DX: G95.9 Disease of spinal cord, unspecified (principal); Z98.1 Arthrodesis status
CPT/HCPCS: 99212